=== PATIENT | male | born 1940 | race Caucasian/White ===

== ENCOUNTER 2017-06-29 08:00 | Outpatient (RCR) | payer MEDICARE, OTHER, SELFPAY ==
[2017-06-29 09:38] LABS: International Normalized Ratio 2.7; Prothrombin Time (Protime)PT. 28.6 SECONDS (11.7-14.9)
== END 2017-06-29 09:00 | disposition home or self-care (01) ==
LOC: LAB 08:00
PROVIDERS: Family Provider Family Medicine; PCP Family Medicine; Visit Provider Internal Medicine Cardiovascular Disease
DX: Z79.01 Long term (current) use of anticoagulants (principal)
CPT/HCPCS: 36415; 85610

== ENCOUNTER 2017-07-27 08:05 | Outpatient (RCR) | payer MEDICARE, OTHER, SELFPAY ==
[2017-07-27 08:52] LABS: Absolute Lymphocyte Count 1.29 X10^3/ul (0.83-4.51); Absolute Neutrophil Count 4.2 X10^3/uL (2.0-7.7); Basophil# 0.05 X10^3/uL; Basophil% 0.8 % (0-1); Eosinophil# 0.31 X10^3/uL; Eosinophils% 4.9 % (0-5); Hematocrit 42.4 % (40-54); Hemoglobin 14.5 g/dl (13.0-16.5); Lymphocyte # 1.29 X10^3/ul (4.0); Lymphocyte % 20.3 % (19-41); Mean Corp Hgb Conc 34.2 g/gl (32-36); Mean Corpuscular Hgb 27.7 pg (27.0-32.0); Mean Corpuscular Volume 81.1 fL (80-94); Mean Platelet Vol. 9.7 fl (6.2-12.0); Monocyte% 7.9 % (0-10); Neutrophil # 4.18 X10^3/uL (2.7-7.7); Neutrophil % 65.8 % (47-70); Platelet Count 217 K/mm3 (150-450); RBC Distribution Width CV 12.9 % (11.6-14.6); RBC Distribution Width SD 38.2 fl (35.1-43.9); Red Blood Count 5.23 M/mm3 (4.6-6.2); White Blood Count 6.4 K/mm3 (4.4-11.0)
[2017-07-27 08:55] LABS: POSITIVE COUNT NO; POSITIVE DIFFERENTIAL NO; POSITIVE MORPHOLOGY NO
[2017-07-27 09:01] LABS: International Normalized Ratio 2.3; Prothrombin Time (Protime)PT. 25.1 SECONDS (11.7-14.9)
[2017-07-27 09:07] LABS: AST(SGOT) 18 U/L (15-37); Alanine Aminotransfer ALT/SGPT 22 U/L (16-61); Albumin, Serum 3.4 g/dL (3.2-5.0); Alkaline Phosphatase 99 U/L (45-117); Anion Gap 10 (5-15); BUN 50 mg/dL (7-18); BUN/Creat Ratio 20.3 RATIO (10-20); Bilirubin, Direct 0.13 mg/dL (0.00-0.30); Calcium,Total 9.2 mg/dL (8.5-10.1); Chloride 104 mmol/L (98-107); Cholesterol 101 mg/dL (200); Creatinine, Serum 2.46 mg/dL (0.70-1.30); EST Glomerular Filtration Rate 27 mL/min (>60); Est Glom Filt Rate - Afr Amer 33 mL/min (>60); Globulin 4.2 g/dL (2.2-4.2); Glucose 119 mg/dL (74-106); High Density Lipoprotein 31 mg/dL; Potassium 4.2 mmol/L (3.5-5.1); Protein, Total 7.6 g/dL (6.4-8.2); Sodium Level 139 mmol/L (136-145); Triglycerides 161 mg/dL; Very Low Density Lipoprotein 32 mg/dL (5-40)
== END 2017-07-27 09:00 | disposition home or self-care (01) ==
LOC: LAB 08:05
PROVIDERS: Family Provider Family Medicine; PCP Family Medicine; Visit Provider Internal Medicine Cardiovascular Disease
DX: N18.3 Chronic kidney disease, stage 3 (moderate) (principal); I12.9 Hypertensive chronic kidney disease with stage 1 through stage 4 chronic kidney disease, or unspecified chronic kidney disease; I25.10 Atherosclerotic heart disease of native coronary artery without angina pectoris; I48.1 Persistent atrial fibrillation; E11.65 Type 2 diabetes mellitus with hyperglycemia; E78.5 Hyperlipidemia, unspecified; Z95.5 Presence of coronary angioplasty implant and graft; Z79.01 Long term (current) use of anticoagulants; Z79.899 Other long term (current) drug therapy
CPT/HCPCS: 36415; 80048; 80061; 80076; 85025; 85610

== ENCOUNTER 2017-11-09 08:12 | Outpatient (RCR) | payer MEDICARE, OTHER, SELFPAY ==
[2017-11-09 09:31] LABS: International Normalized Ratio 3.6; Prothrombin Time (Protime)PT. 36.2 SECONDS (11.7-14.9)
== END 2017-11-09 10:00 | disposition home or self-care (01) ==
LOC: LAB 08:12
PROVIDERS: Family Provider Family Medicine; PCP Family Medicine; Visit Provider Internal Medicine Cardiovascular Disease
DX: Z79.01 Long term (current) use of anticoagulants (principal)
CPT/HCPCS: 36415; 85610

== ENCOUNTER 2017-12-05 08:42 | Outpatient (RCR) | payer MEDICARE, OTHER, SELFPAY ==
[2017-12-05 10:28] LABS: International Normalized Ratio 2.4; Prothrombin Time (Protime)PT. 26.2 SECONDS (11.7-14.9)
== END 2017-12-05 10:00 | disposition home or self-care (01) ==
LOC: LAB 08:42
PROVIDERS: Family Provider Family Medicine; PCP Family Medicine; Visit Provider Internal Medicine Cardiovascular Disease
DX: Z79.01 Long term (current) use of anticoagulants (principal)
CPT/HCPCS: 36415; 85610

== ENCOUNTER 2018-01-31 08:35 | Outpatient (RCR) | payer MEDICARE, OTHER, SELFPAY ==
[2018-01-31 09:21] LABS: Hematocrit 40.4 % (40-54); Hemoglobin 13.5 g/dl (13.0-16.5); International Normalized Ratio 2.7; Mean Corp Hgb Conc 33.4 g/gl (32-36); Mean Corpuscular Hgb 27.6 pg (27.0-32.0); Mean Corpuscular Volume 82.6 fL (80-94); Mean Platelet Vol. 9.8 fl (6.2-12.0); Platelet Count 123 K/mm3 (150-450); RBC Distribution Width CV 13.4 % (11.6-14.6); RBC Distribution Width SD 40.6 fl (35.1-43.9); Red Blood Count 4.89 M/mm3 (4.6-6.2); White Blood Count 7.1 K/mm3 (4.4-11.0)
[2018-01-31 09:23] LABS: Scan Indicated on CBC? Y/N NO
[2018-01-31 09:41] LABS: AST(SGOT) 13 U/L (15-37); Alanine Aminotransfer ALT/SGPT 18 U/L (16-61); Albumin, Serum 3.5 g/dL (3.2-5.0); Alkaline Phosphatase 89 U/L (45-117); Anion Gap 10 (5-15); BUN 45 mg/dL (7-18); BUN/Creat Ratio 18.8 RATIO (10-20); Bilirubin, Direct 0.16 mg/dL (0.00-0.30); Calcium,Total 9.2 mg/dL (8.5-10.1); Chloride 108 mmol/L (98-107); Cholesterol 91 mg/dL (200); Creatinine, Serum 2.39 mg/dL (0.70-1.30); EST Glomerular Filtration Rate 28 mL/min (>60); Est Glom Filt Rate - Afr Amer 34 mL/min (>60); Glucose 118 mg/dL (74-106); High Density Lipoprotein 34 mg/dL; Potassium 4.1 mmol/L (3.5-5.1); Protein, Total 7.5 g/dL (6.4-8.2); Sodium Level 141 mmol/L (136-145); Triglycerides 159 mg/dL; Very Low Density Lipoprotein 32 mg/dL (5-40)
== END 2018-01-31 10:00 | disposition home or self-care (01) ==
LOC: LAB 08:35
PROVIDERS: Physician Assistant Medical; Family Provider Family Medicine; PCP Family Medicine; Referring Provider Internal Medicine Cardiovascular Disease; Visit Provider Internal Medicine Cardiovascular Disease
DX: N18.3 Chronic kidney disease, stage 3 (moderate) (principal); N17.9 Acute kidney failure, unspecified; I12.9 Hypertensive chronic kidney disease with stage 1 through stage 4 chronic kidney disease, or unspecified chronic kidney disease
CPT/HCPCS: 36415; 80048; 80061; 80076; 85027; 85610

== ENCOUNTER 2018-04-11 08:41 | Outpatient (RCR) | payer MEDICARE, OTHER, SELFPAY ==
[2018-04-11 09:28] LABS: International Normalized Ratio 3.2; Prothrombin Time (Protime)PT. 32.9 SECONDS (11.7-14.9)
--- OUTSIDE RECORDS SUMMARY | 2018-07-13 14:34 | XMS RPT_ITS ---
:1940 Author Organization OHIP Support Name Relationship Address Phone QUAN PAMELLA Unavailable [address] + [address] [place] [address] R Unavailable Unavailable Unavailable KOBILARCSIK, PAMELLA Unavailable [address] + [address] [place] [address] R Unavailable Unavailable Unavailable KOBILARCSIK, PAMELLA Unavailable [address] + [address] [place] [address] R Unavailable Unavailable Unavailable KOBILARCSIK, PAMELLA Unavailable [address] + [address] [place] [address] R Unavailable Unavailable Unavailable KOBILARCSIK, PAMELLA Unavailable [address] + [address] [place] [address] R Unavailable Unavailable Unavailable KOBILARCSIK, PAMELLA Unavailable [address] + [address] [place] [address] R Unavailable Unavailable Unavailable KOBILARCSIK, PAMELLA Unavailable [address] + [address] [place] [address] R Unavailable Unavailable Unavailable KOBILARCSIK, PAMELLA Unavailable [address] + [address] [place] [address] R Unavailable Unavailable Unavailable KOBILARCSIK, PAMELLA Unavailable [address] + [address] [place] [address] R Unavailable Unavailable Unavailable R Unavailable Unavailable Unavailable PEREZ, SHAMAR Unavailable [address] + [place] [address] KOBILARCSIK, PAMELLA Unavailable [address] [phone] [place] [address] R Unavailable Unavailable Unavailable PEREZ, SHAMAR Unavailable [address] + [place] [address] KOBILARCSIK, PAMELLA Unavailable [address] [facility] [phone] [place] [address] R Unavailable Unavailable Unavailable Care Team Providers Name Role Phone Jolliff, Masha Attending Unavailable Jolliff, Masha Referring Unavailable Jolliff, Masha Primary Care Unavailable Karyn, [place] Attending Unavailable Karyn, Russ Referring Unavailable Jolliff, Masha Primary Care Unavailable Jackelyn Moore Consulting Unavailable Asfoura, Jejessed Consulting Unavailable Karyn, [place] Attending Unavailable Jolliff, Masha Primary Care Unavailable Karyn, Russ Referring Unavailable Asfoura, Jehad Consulting Unavailable Karyn, [place] Attending Unavailable Karyn, [place] Referring Unavailable Jolliff, Masha Primary Care Unavailable Asfoura, Jehad Consulting Unavailable Jackelyn Moore Consulting Unavailable Karyn, Russ Attending Unavailable Jolliff, Masha Referring Unavailable Jolliff, Masha Primary Care Unavailable Remedios Coleman POLICE MAGISTRATE-C Attending Unavailable Jolliff, Masha Referring Unavailable Jolliff, Masha Primary Care Unavailable Karyn, Russ Attending Unavailable Karyn, [place] Referring Unavailable Jolliff, Masha Primary Care Unavailable Jackelyn Moore Consulting Unavailable Karyn, Russ Attending Unavailable Karyn, [place] Referring Unavailable Jolliff, Masha Primary Care Unavailable Jackelyn Moore Consulting Unavailable Karyn, [place] Attending Unavailable Karyn, [place] Referring Unavailable Jolliff, Masha Primary Care Unavailable Jackelyn Moore Consulting Unavailable Asfoura, Jehad Consulting Unavailable Jackelyn Moore Attending Unavailable Jolliff, Masha Referring Unavailable Karyn, [place] Attending Unavailable Karyn, Russ Referring Unavailable Jolliff, Masha Primary Care Unavailable Jackelyn Moore Consulting Unavailable Asfoura, Jehad Consulting Unavailable PROBLEMS PROBLEMS DATE TYPE CONDITION / CODE ATTENDING STATUS SOURCE Unknown 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, [place]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 [place] [facility] (current) use of Community anticoagulants / Hospital Z79.01(ICD-10) Repository Unknown I48.2 - Chronic atrial Karyn, Russ Active [place] [facility] fibrillation / Community I48.2(ICD-10) Hospital Repository Unknown I25.10 - Atherosclerotic Moore, Active [place] [facility] heart disease of [place] Jackelyn [facility] coronary artery without Hospital angina pectoris / Repository I25.10(ICD-10) Unknown E11.9 - Type 2 diabetes Oscar Active [place] [facility] mellitus without Jackelyn [facility] complications / Hospital E11.9(ICD-10) Repository Unknown E78.5 - Hyperlipidemia, Karyn, Russ Active [place] [facility] unspecified / Community E78.5(ICD-10) Hospital Repository Unknown Z79.899 - Other assisted Karyn, Russ Active [place] [facility] (current) drug therapy / Community Z79.899(ICD-10) Hospital Repository Unknown N18.3 - Chronic kidney Karyn, Russ Active [place] [facility] disease, stage 3 Community (moderate) / Hospital N18.3(ICD-10) Repository Unknown N18.5 - Chronic kidney Karyn, Russ Active [place] [facility] disease, stage 5 / Community N18.5(ICD-10) Hospital Repository Unknown E78.00 - Pure Karyn, Russ Active [place] [facility] hypercholesterolemia, Community unspecified / Hospital E78.00(ICD-10) Repository Unknown E78.0 - Pure Karyn, [place] Active [place] [facility] hypercholesterolemia / Community E78.0(ICD-10) Hospital Repository Unknown E11.65 - Type 2 diabetes Karyn, Russ Active [place] 8 mellitus with Community hyperglycemia / Hospital E11.65(ICD-10) Repository Unknown I10 - Essential (primary) Karyn, [place] Active [place] [facility] hypertension / Community I10(ICD-10) Hospital Repository Unknown I48.1 - Persistent atrial Karyn, [place] Active [place] [facility] fibrillation / Community I48.1(ICD-10) Hospital Repository Unknown Z95.5 - Presence of Karyn, [place] Active [place] [facility] coronary angioplasty Community implant and graft / Hospital Z95.5(ICD-10) Repository Unknown I12.9 - Hypertensive Karyn, Russ Active [place] [facility] chronic kidney disease Community with stage 1 through Hospital stage 4 chronic kidney Repository disease, or unspecified chronic kidney disease / I12.9(ICD-10) PROCEDURES PROCEDURES No Procedure Records FoundRESULTS RESULTS PROTHROMBIN TIME W/INR Collected: 05/17/2018 Status: F Source: [place] 8:03 AM [facility] [place] REPOSITORY Order Comment: Comments: STANDING ORDER Comments: STANDING ORDER TYPE CODE TESTS RESULT OUT OF RANGE REFERENCE UNITS LAB L300.4150 11.7-14.9 SECONDS High PROTIME 23.4 LAB L300.4200 Normal INR 2.1 Performed By: #### L300.3900 #### [facility] [address] [place], [address] T4 TOTAL, THYROXIN Collected: 04/21/2018 Status: F Source: [place] 10:41 AM [facility] [place] REPOSITORY TYPE CODE TESTS RESULT OUT OF RANGE REFERENCE UNITS LAB L501.9310 4.5-12.1 ug/dL T4 Normal THYROXIN 6.7 Performed By: #### L501.9310, L501.9520 #### [facility] [address] [place], [address] THYROID STIM HORMONE Collected: 04/21/2018 Status: F Source: [place] (TSH) 10:41 AM [facility] [place] REPOSITORY TYPE CODE TESTS RESULT OUT OF RANGE REFERENCE UNITS LAB L501.9520 0.358-3.74 uIU/mL Normal TSH 1.52 Performed By: #### L501.9310, L501.9520 #### [facility] [address] [place], [address] MICROALB:CREAT Collected: 04/21/2018 Status: F Source: [place] RATIO,RANDOM UR 10:41 AM [facility] [place] REPOSITORY TYPE CODE TESTS RESULT OUT OF RANGE REFERENCE UNITS LAB L501.1200 NO RANGE EST. mg/dL Normal UR CREAT 178.00 LAB L502.0500 NO RANGE EST. mg/L Normal 1690.0 MICROALBUMIN ,UR LAB L502.0600 <30 mg/g CRE mg/g CRE High 949.4 MALB:CREAT Performed By: #### L502.0250 #### [facility] [address] [place], [address] HEMOGLOBIN A1C Collected: 04/21/2018 Status: F Source: [place] 10:41 AM [facility] REPOSITORY TYPE CODE TESTS RESULT OUT OF RANGE REFERENCE UNITS LAB L501.9985 4.2-6.3 % High HGB A1C 8.1 Performed By: #### L501.9985 #### [facility] [address] [place], [address] PROTHROMBIN TIME W/INR Collected: 04/11/2018 Status: F Source: [place] 8:48 AM [facility] REPOSITORY TYPE CODE TESTS RESULT OUT OF RANGE REFERENCE UNITS LAB L300.4150 11.7-14.9 SECONDS High PROTIME 32.9 LAB L300.4200 Normal INR 3.2 Performed By: #### L300.3900 #### [facility] [address] [place], [address] CARDIOLOGY VISIT Observed: 02/07/2018 Status: F Source: [place] REPORT 11:30 AM [facility] [place] REPOSITORY [facility] [address] [place] [address] OFFICE VISIT Date of Service: 02/01/18 MR#: [id number] Acct: [id number] Name: HANS RICHEY Rep #: [id number] : 1940 Provider: Jackelyn Moore Age/Sex: 77/M Location: [facility] [place] Status: Signed HPI HPI Details: HANS RICHEY, is a 77 M who presents to the office today for cardiovascular follow-up. He has a history of coronary artery disease with stenting to his RCA (2002,2004 and PCI 2016), hypertension and hyperlipidemia. From a cardiac standpoint, patient is doing well. He does not have any chest discomfort/heaviness/tightness. His exercise tolerance is stable for his age. He does get SOB with bending over and doing activity, he does not think that this is any worse than previous. He denies any PND. He does not have any orthopnea. He does not have any symptoms of congestive heart failure. He does not have any palpitations that he is aware of. He does not have any lightheadedness or dizziness. He does not have any near-syncope or syncope. He does not have any lower extremity edema. He does not have any symptoms of claudication. 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 Accompanied by: none Is patient in pain?: No Allergies Penicillins Adverse Reaction (Severe, Verified 02/01/18 10:50) Swelling Medications Aspirin [Adult Low Dose Aspirin EC] 81 mg PO 07/17/15 [History Confirmed 02/01/18] Nitroglycerin [Nitrostat] 0.4 mg SUBLINGUAL Q5M PRN 07/17/15 [History Confirmed 02/01/18] levothyroxine 75 mcg capsule 75 mcg PO QDAY cap 07/29/17 [History Confirmed 02/01/18] sodium bicarbonate 650 mg tablet 650 mg PO .q day tab 07/29/17 [History Confirmed 02/01/18] amlodipine 10 mg tablet 10 mg PO QDAY #90 tab 08/02/17 [Rx Confirmed 02/01/18] atenolol 100 mg tablet 100 mg PO QDAY #90 tab 08/02/17 [Rx Confirmed 02/01/18] benazepril 20 mg tablet 20 mg PO QDAY #90 tab 08/02/17 [Rx Confirmed 02/01/18] clopidogrel 75 mg tablet 75 mg PO DAILY #90 tab 08/02/17 [Rx Confirmed 02/01/18] hydrochlorothiazide 25 mg tablet 25 mg PO DAILY #90 tab 08/02/17 [Rx Confirmed 02/01/18] isosorbide mononitrate ER 30 mg tablet,extended release 24 hr 30 mg PO DAILY #90 tab 08/02/17 [Rx Confirmed 02/01/18] lovastatin 40 mg tablet 40 mg PO DAILY #90 tab 08/02/17 [Rx Confirmed 02/01/18] spironolactone 25 mg tablet 25 mg PO .COMPLEX #36 tab 08/02/17 [Rx Confirmed 02/01/18] warfarin 5 mg tablet 5 mg PO .COMPLEX #180 tab 08/02/17 [Rx Confirmed 02/01/18] blood sugar diagnostic strips See Dose Instructions .ROUTE .MEDSUPPLY #20 ea 08/18/17 [History Confirmed 02/01/18] cholecalciferol (vitamin D3) 2,000 unit capsule 2,000 unit PO QDAY 08/23/17 [History Confirmed 02/01/18] insulin U- 100 regular human 100 unit/mL injection solution 46 unit SC .COMPLEX #30 ml 10/24/17 [Rx Confirmed 02/01/18] insulin syringe-needle U-100 1/2 mL 31 gauge x 15/64 See Dose Instructions .ROUTE .MEDSUPPLY #100 ea 10/24/17 [Rx Confirmed 02/01/18] PFS Medical History Sleep apnea (Chronic) Diabetes mellitus type II, controlled (Chronic) Hyperlipidemia (Chronic) Hypertension (Chronic) Atherosclerotic heart disease of [place] coronary artery without angina pectoris (Chronic) Chronic atrial fibrillation (Chronic) 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 (Chronic) Hypothyroidism (Acute) Surgical History History of total right knee replacement (Chronic) Stented coronary artery (Chronic) History of left heart catheterization (Chronic) Family History Father , age 79, of embolism CAD (coronary artery disease) Embolism Mother , age 74 Kidney disease renal failure Social History Smoking Status: Former smoker how long ago did patient quit smokin second hand exposure: No alcohol intake: never substance use type: does not use ROS Const Const: Negative for weakness, fatigue, fever(s) or headache(s) Eyes Eyes: Negative for blind spots, loss of peripheral vision or transient loss of vision ENT ENT: Negative for headache(s), dizziness, tinnitus or Nosebleed/epistaxis Cardio Chest Pain: No Palpitations: No Edema: None Muscle aches with walking: None Resp Respiratory: Negative for SOB with activity, SOB at rest, SOB orthopnea\SOB lying down or Cough GI GI: Negative nausea, vomiting, heartburn or vomiting blood/hematemesis : Negative for hematuria Musc Musc: Negative for muscle aches/ myalgia Neuro Neuro: Negative for weakness, headache(s), dizziness, near syncope, syncope, lightheadedness or orthostatic symptoms [place] Hematologic/Lymphatic: Negative for easy bleeding Endo Endo: Negative for fatigue Cardiology Exam Const Appearance: cooperative, no acute distress and well developed Nutritional Appearance: obese Orientation: alert, awake and oriented x3 Head Head: normocephalic and atraumatic Mouth: moist mucous membranes Eyes General: appearance normal, both eyes and all related structures Conjunctivae: conjunctivae normal Pupils: PERRL EOM: EOM intact bilaterally Neck Neck: normal visual inspection, no lymphadenopathy and no JVD Carotids: Negative bruit Neck Mass: Negative Neck mass Chest Chest inspection: normal inspection of the chest and symmetric chest movement Auscultation: Bilateral: Clear to Auscultation Cardio Palpation: normal PMI Rate: regular rate Rhythm: regular rhythm Heart sounds: S1 normal and S2 normal; negative rub, gallop or murmur GI GI: normal to inspection, soft, no hepatosplenomegaly, bowel sounds present and obese; negative tender Neuro General: alert, awake, oriented x3, CN's II-XI intact bilaterally and moves all extremities Extremities Pulses: Normal: Right Posterior Tibial Pulse, Left Posterior Tibial Pulse, Right Radial Pulse, Left Radial Pulse Lower Extremity Edema: None: Bilateral Psych Psychological: normal affect Supplemental Info Heart catheterization in 2016 demonstrated severe coronary artery disease. Mild to moderate left main arterial disease. 30% stenosis of the mid to distal LAD, 40% in-stent restenosis of the pre-existing stent in the mid RCA. Patient underwent balloon angioplasty of the 99% in-stent restenosis of the pre-existing proximal to mid right posterior atrioventricular artery, balloon angioplasty of the 90% stenosis of the distal RCA, balloon angioplasty of the 70% stenosis of the proximal RCA. Unable to pass any stents across the proximal tortuous RCA stenosis despite multiple attempts. Patient had correction of the distal RCA and posterior lateral branch and severe stenosis with right to left collaterals very good collateral quality was noted on the second diagonal to the third distal right posterior lateral Echocardiogram in 2016 demonstrated normal left ventricle, estimated ejection fraction is 55%, left atrium is mildly enlarged, mild tricuspid insufficiency. Assessment AND Plan 1. Atherosclerosis of [place] coronary artery of [place] heart without angina pectoris I25.10 PTCA and ADI to RCA04/03/2003; repeat PTCA and ADI to RCA 06/04/2004: [facility] with POBA- RCA (no stent) 06/03/15 Plan - [place]NE Lopez Stable, from a cardiac standpoint patient does not have any symptoms of angina. We recommend that they continue with current aggressive medical management and risk factor modification. Orders Orders: 2. Chronic atrial fibrillation I48.2 Plan - [place] Lopez Patient is not symptomatic. His heart rate is adequately controlled. He is anticoagulated with a therapeutic INR goal of 2-3 3. Essential hypertension I10 Plan - [place] Lopez Blood pressure is well controlled on current medications, we do not recommend any changes at this time. 4. Pure hypercholesterolemia E78.00 Plan - [place] Lopez Recent lipid profile demonstrates a total cholesterol of 91, HDL 34, LDL 25. Patient will continue with moderate intensity statin Plan Detail Other Orders Orders: Additional Comments - [place] Lopez The above patient was discussed with Dr. Boss, he agrees with plan of care. Thank you for allowing us to participate in patient's plan of care, if you have any questions please do not hesitate to call. This note was generated using a voice recognition system and there may be incorrect words, spelling or punctuation errors that were not noted when reviewing the office note prior to saving. 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 transplanted heart: [place] heart Chronic atrial fibrillation I48.2 Essential hypertension I10 Hypertension type: essential hypertension Pure hypercholesterolemia E78.00 Hyperlipidemia type: pure hypercholesterolemia Coding Level of Care Code Off vis,est,level 3 Diagnoses Atherosclerosis of [place] coronary artery of [place] heart without angina pectoris I25.10 [place] vs. transplanted heart: [place] heart Chronic atrial fibrillation I48.2 Essential hypertension I10 Hypertension type: essential hypertension Pure hypercholesterolemia E78.00 Hyperlipidemia type: pure hypercholesterolemia 02/07/18 1040 <Electronically signed by Jackelyn QUINN> Date Jackelyn QUINN 02/07/18 1130<Electronically signed by Russ Boss MD> Cosigner Signature: Date (if applicable) Russ Boss MD CC: Masha Treviño MD CBC-COMPLETE BLOOD CNT Collected: 01/31/2018 Status: F Source: [place] NO DIFF 8:41 AM [facility] [place] REPOSITORY Order Comment: BMP AND CBC FOR DR SCHWARZ LIVER,LIPID INR FOR DR BOSS TYPE CODE TESTS RESULT OUT OF RANGE REFERENCE UNITS LAB L100.1000 4.4-11.0 K/mm3 Normal WBC 7.1 LAB L100.1200 4.6-6.2 M/mm3 Normal RBC 4.89 LAB L100.1300 13.0-16.5 g/dl Normal HGB 13.5 LAB L100.1400 40-54 % Normal HCT 40.4 LAB L100.1500 80-94 fL Normal MCV 82.6 LAB L100.1600 27.0-32.0 pg Normal MCH 27.6 LAB L100.1700 32-36 g/gl Normal MCHC 33.4 LAB L100.1810 11.6-14.6 % Normal RDW CV 13.4 LAB L100.1820 35.1-43.9 fl Normal RDW SD 40.6 LAB L100.1900 150-450 K/mm3 Low PLT 123 LAB L100.2000 6.2-12.0 fl Normal MPV 9.8 Performed By: #### L100.0500 #### [facility] [address] [place], [address] PROTHROMBIN TIME W/INR Collected: 01/31/2018 Status: F Source: [place] 8:41 AM [facility] REPOSITORY Order Comment: BMP AND CBC FOR DR SCHWARZ LIVER,LIPID INR FOR KARYN TYPE CODE TESTS RESULT OUT OF RANGE REFERENCE UNITS LAB L300.4150 11.7-14.9 SECONDS High PROTIME 29.0 LAB L300.4200 Normal INR 2.7 Performed By: #### L300.3900 #### [facility] [address] [facility] [place], [address] BASIC METABOLIC Collected: 01/31/2018 Status: F Source: [place] PROFILE (BMP) 8:41 AM [facility] REPOSITORY Order Comment: BMP AND CBC FOR DR SCHWARZ LIVER,LIPID INR FOR DR KARYN TYPE CODE TESTS RESULT OUT OF RANGE REFERENCE UNITS LAB L501.0100 74-106 mg/dL High GLU 118 Result Comment: Fasting Glucose result from 100 to 125 mg/dL suggests IMPAIRED HOMEOSTASIS per A.D.A. criteria. Please note revised GLUCOSE reference range effective 2017. LAB L501.1000 7-18 mg/dL High BUN 45 LAB L501.1100 0.70-1.30 mg/dL High CREAT,SERUM 2.39 Result Comment: The validity of the calculated GFR AND GFRAA in patients over 70 years has not been determined. Clinical correlation is essential. LAB L501.1110 >60 mL/min Low EST GFR 28 Result Comment: Non- GFR Calc LAB L501.1115 >60 mL/min Low EST GFR - AA 34 Result Comment: GFR Calc LAB L501.1300 10-20 RATIO Normal BUN/CRE 18.8 LAB L501.2200 8.5-10.1 mg/dL CA Normal 9.2 LAB L501.5300 136-145 mmol/L NA Normal 141 LAB L501.5600 3.5-5.1 mmol/L K Normal 4.1 LAB L501.5900 98-107 mmol/L High CL 108 LAB L501.6100 21.0-32.0 mmol/L Normal CO2 23.0 LAB L501.6200 5-15 Normal GAP 10 Performed By: #### L500.2500, L500.3400, L500.4100 #### [facility] [address] [place], [address] LIVER PROFILE Collected: 01/31/2018 Status: F Source: [place] 8:41 AM [facility] REPOSITORY Order Comment: BMP AND CBC FOR DR SCHWARZ LIVER,LIPID INR FOR DR BOSS TYPE CODE TESTS RESULT OUT OF RANGE REFERENCE UNITS LAB L501.1500 6.4-8.2 g/dL Normal T PROT 7.5 LAB L501.1800 3.2-5.0 g/dL Normal ALB 3.5 LAB L501.1950 2.2-4.2 g/dL Normal GLOB 4.0 LAB L501.4100 15-37 U/L Low AST 13 LAB L501.4305 45-117 U/L Normal ALK P 89 LAB L501.4405 16-61 U/L Normal ALT 18 LAB L501.4600 0.20-1.00 mg/dL Normal T BILI 0.50 LAB L501.4700 0.00-0.30 mg/dL Normal D BILI 0.16 Performed By: #### L500.2500, L500.3400, L500.4100 #### [facility] [address] [place], [place], [address] LIPID PROFILE Collected: 01/31/2018 Status: F Source: [place] 8:41 AM [facility]POS[facility] Order Comment: BMP AND CBC FOR DR SCHWARZ LIVER,LIPID INR FOR DR BOSS TYPE CODE TESTS RESULT OUT OF RANGE REFERENCE UNITS LAB L501.4900 200 mg/dL Normal CHOL 91 Result Comment: <200 mg/dL Desirable 200-240 mg/dL Borderline >240 mg/dL High Risk LAB L501.5000 mg/dL Normal TRIG 159 Result Comment: The drugs N-Acetylcysteine and Metamizole may falsely depress this assay. Serum Triglycerides Reference Interval Normal <150 mg/dL Borderline high 150 - 199 mg/dL High 200 - 499 mg/dL Very High > or = 500 mg/dL LAB L501.6400 mg/dL Low HDL 34 Result Comment: The drugs N-Acetylcysteine and Metamizole may falsely depress this assay. Reference Range HDL <40 mg/dL Low HDL Cholesterol HDL >or= 60 mg/dL High HDL Cholesterol LAB L501.6500 0-130 mg/dL Normal LDL 25 LAB L501.6600 5-40 mg/dL Normal VLDL 32 Performed By: #### L500.2500, L500.3400, L500.4100 #### [facility] [address] [place], [place], [address] PROTHROMBIN TIME W/INR Collected: 12/05/2017 Status: F Source: [place] 8:49 AM [facility] TYPE CODE TESTS RESULT OUT OF RANGE REFERENCE UNITS LAB L300.4150 11.7-14.9 SECONDS High PROTIME 26.2 LAB L300.4200 Normal INR 2.4 Performed By: #### L300.3900 #### [facility] [address] [place], [place], [address] PROTHROMBIN TIME W/INR Collected: 11/09/2017 Status: F Source: [place] 8:17 AM [facility] REPOSITORY Order Comment: CRITICAL VALUE VERIFIED. CALLED TO DUSTIN 11/09/17 0946 Val Neal Geovany. RESULTS READ BACK BY DUSTIN . TYPE CODE TESTS RESULT OUT OF REFERENCE UNITS RANGE LAB L300.4150 11.7-14.9 SECONDS High PROTIME 36.2 LAB L300.4200 High alert INR 3.6 Performed By: #### L300.3900 #### [facility] [address] [place], [place], [address] ENDOCRINOLOGY VISIT Observed: 08/25/2017 Status: F Source: [place] REPORT 10:29 AM [facility] REPOSITORY [facility] [address] [place], [place] [address] OFFICE VISIT Date of Service: 08/23/17 MR#: [id number] Acct: [id number] Name: HANS RICHEY Rep #: [id number] : 1940 Provider: Remedios Coleman NP Age/Sex: 77/M Location: [facility] [place] Status: Signed HPI History of present illness Hans Richey is a 77 year old male who presents for follow up of diabetes type 2. Diagnosed in 2001. Continues on MDI. Pt denies difficulty with injections or self monitoring of BG. Denies any signs of infection or irritation at site of injections. Reports taking insulin as directed At time of visit: -Pt denies symptoms of hypertensive emergency (CP,SOB,MOREIRA, or blurred vision) and hypotension(dizziness or lightheadedness) -Pt denies symptoms of hypoglycemia ( sweaty, confusion, anxiety, tremor, hunger, palpitations) and hyperglycemia ( polydipsia, polyuria) -Pt denies potential medication adverse effect. Hypoglycemia Aware of hypoglycemia: yes Able to self treat low BG: Yes Frequent low Blood sugar: No Has supply of glucagon: No Diet 3 meals Eats healthy No carb counting Exercise Plans to join [employer] in the summer SMBG 2-4 times daily 100-160 Const Appearance: cooperative, healthy appearing, well developed, well groomed and no acute distress Nutritional Appearance: well nourished and average body habitus Orientation: alert, awake and oriented x3 Head Head: normal to inspection, normocephalic and atraumatic Ears: hearing grossly normal bilaterally and external ears normal Nose: external nose normal, nasal mucous membranes and turbinates normal, nares normal, septum normal, no nasal discharge Face and Sinus: face symmetric Mouth: oral mucosae normal, tongue normal, oropharynx normal and moist mucous membranes Teeth and gingiva: dentition normal Throat: posterior oropharynx normal, tonsils normal and uvula midline Eyes General: appearance normal, both eyes and all related structures Eyelids: eyelids normal Conjunctivae: conjunctivae normal Pupils: PERRL, normal by confrontation and accommodation normal EOM: EOM intact bilaterally Neck Neck: normal visual inspection, trachea midline and no JVD JVD: +5 Carotids: normal carotid upstroke and bounding pulses Chest Chest inspection: normal inspection of the chest, symmetric chest movement and normal respiratory effort Auscultation: Bilateral: Clear to Auscultation Cardio Palpation: normal PMI Rhythm: irregular rhythm Heart sounds: S1 normal and S2 normal GI GI: normal to inspection, soft, no hepatosplenomegaly and bowel sounds present Neuro General: alert, awake, oriented x3, no focal sensory deficit, gait normal and moves all extremities Skin Skin: no rashes or lesions noted Extremities Pulses: Normal: Right Femoral Pulse, Left Femoral Pulse, Right Dorsalis Pedis Pulse, Left Dorsalis Pedis Pulse, Right Posterior Tibial Pulse, Left Posterior Tibial Pulse, Right Radial Pulse, Left Radial Pulse Lower Extremity Edema: None: Bilateral Musculoskel Musculoskeletal: No joint tenderness Psych Psychological: normal affect Weight and fatigue symptoms: Denies snoring Cardiopulmonary symptoms: Denies chest pain at rest, dyspnea on exertion, lightheadedness or myalgias GI symptoms: Denies constipation, diarrhea, nausea/dyspepsia or vomiting Skin and extremity symptoms: Denies erectile dysfunction Other symptoms: Denies blurry vision or change in vision Intake Vital Signs08/23/17 Height 5 ft 8 in 08/23/17 Weight: 291 lb 2 oz 08/23/17 Body Mass Index (BMI) 44.2 08/23/17 Blood Pressure 119/70 08/23/17 Blood Pressure Location Lt popliteal 08/23/17 Blood Pressure Position Sitting Intake Visit Reasons: 3 M FU Chief Complaint: follow up visit Clean Room Operator Required: No Accompanied by: Self Is patient in pain?: No Allergies Penicillins Adverse Reaction (Severe, Verified 08/23/17 09:52) Swelling Medications Aspirin [Adult Low Dose Aspirin EC] 81 mg PO 07/17/15 [History Confirmed 08/23/17] Nitroglycerin [Nitrostat] 0.4 mg SUBLINGUAL Q5M PRN 07/17/15 [History Confirmed 08/23/17] insulin U-100 regular human 100 unit/mL injection solution 46 unit SC .COMPLEX ml 07/29/17 [History Confirmed 08/23/17] levothyroxine 75 mcg capsule 75 mcg PO QDAY cap 07/29/17 [History Confirmed 08/23/17] sodium bicarbonate 650 mg tablet 650 mg PO .q day tab 07/29/17 [History Confirmed 08/23/17] amlodipine 10 mg tablet 10 mg PO QDAY #90 tab 08/02/17 [Rx Confirmed 08/23/17] atenolol 100 mg tablet 100 mg PO QDAY #90 tab 08/02/17 [Rx Confirmed 08/23/17] benazepril 20 mg tablet 20 mg PO QDAY #90 tab 08/02/17 [Rx Confirmed 08/23/17] clopidogrel 75 mg tablet 75 mg PO DAILY #90 tab 08/02/17 [Rx Confirmed 08/23/17] hydrochlorothiazide 25 mg tablet 25 mg PO DAILY #90 tab 08/02/17 [Rx Confirmed 08/23/17] isosorbide mononitrate ER 30 mg tablet,extended release 24 hr 30 mg PO DAILY #90 tab 08/02/17 [Rx Confirmed 08/23/17] lovastatin 40 mg tablet 40 mg PO DAILY #90 tab 08/02/17 [Rx Confirmed 08/23/17] spironolactone 25 mg tablet 25 mg PO .COMPLEX #36 tab 08/02/17 [Rx Confirmed 08/23/17] warfarin 5 mg tablet 5 mg PO .COMPLEX #180 tab 08/02/17 [Rx Confirmed 08/23/17] blood sugar diagnostic strips See Dose Instructions .ROUTE .MEDSUPPLY #20 ea 08/18/17 [History Confirmed 08/23/17] insulin syringe-needle U-100 1/2 mL 31 gauge x 15/64 See Dose Instructions .ROUTE .MEDSUPPLY #90 ea 08/18/17 [History Confirmed 08/23/17] cholecalciferol (vitamin D3) 2,000 unit capsule 2,000 unit PO QDAY 08/23/17 [History Confirmed 08/23/17] Nurse's Note: blood sugars : low : 121 high : 190 [facility] Medical History Sleep apnea (Chronic) Diabetes mellitus type II, controlled (Chronic) Hyperlipidemia (Chronic) Hypertension (Chronic) Stented coronary artery (Chronic) Atherosclerotic heart disease of [place] coronary artery without angina pectoris (Chronic) Chronic atrial fibrillation (Chronic) residential (current) use of anticoagulants (Chronic) Hypothyroidism (Acute) Surgical History History of total right knee replacement (Chronic) History of left heart catheterization (Chronic) Family History Father , age 79, of embolism CAD (coronary artery disease) Embolism Mother , age 74 Kidney disease renal failure Social History Smoking Status: Never smoker how long ago did patient quit smokin second hand exposure: No alcohol intake: never substance use type: does not use ROS Const Constitutional: No anorexia, body ache, chills, fatigue, fever(s), frequent falls, decreased energy, malaise, night sweats, weakness, weight change, sleep problems, abnormal sleep pattern, change in appetite, other, headache(s), snoring or excessive sweating Eyes Eyes: No blurry vision, change in vision, double vision, discharge, dry eyes, bulging eyes, floaters, visual disturbances, eye pain, light sensitivity, spots in vision, tunnel vision or other ENT ENT: Positive for nasal congestion and nasal discharge; no abnormal hearing, ear pain, ear discharge, ear pressure, hearing loss, tinnitus, dizziness/vertigo, balance problems, nosebleed/epistaxis, nasal obstruction, nose pain, sinus pressure, sinus pain, post nasal drip, headache(s), facial pain, dental pain, dry mouth, bad breath, hoarseness, lip swelling, mouth lesions, mouth pain, sore throat, tongue swelling, throat swelling, other, difficulty swallowing or neck pain Resp Respiratory: No cough, change in phlegm color, chest congestion, excessive phlegm production, hemoptysis, pain on inspiration, shortness of breath, pain with cough, snoring, stridor, wheezing or other Cardio Cardiology: Positive for generalized swelling; no chest pain at rest, chest pain with exertion, leg pain with exertion, excessive sweating, shortness of breath, dyspnea on exertion, irregular heart rhythm, lightheadedness, orthopnea, radiating jaw, neck or arm pain, fast heart rate, slow heart rate, palpitations or other Gastro GI: No abdominal pain, belching, bloating, change in bowel habits, change in stool character, coffee ground emesis, constipation, cramping, diarrhea, heartburn, difficulty swallowing, feeling full early, excessive flatus, incontinent of stools, Vomiting blood/hematemesis, blood in stool, loose stools, Black,tarry stools, nausea/dyspepsia, pain with swallowing, vomiting or other Genitourinary Male: No difficulty urinating, burning urination, painful urination, urinary incontinence, urinary frequency, urinary urgency, urinary hesitancy, urinary retention, blood in urine, Frequent nighttime urination/ nocturia, post void dribbling, suprapubic fullness, side pain, sexual problems, genital lesions, genital itching, erectile dysfunction, penile discharge, difficulty with ejaculations, blood in semen, scrotal swelling, testicle lump, testicle pain or other Musc Musculoskeletal: No abnormal walking, joint pain, back pain, deformity, joint swelling, limited range of motion, loss of height, muscle cramps, muscle weakness, decreased muscle mass, body aches, neck pain, numbness, radiating pain into limb, stiffness, tingling or other Skin Skin: No acne, hair loss, change in hair, nail changes, boil, change in skin color, dry skin, redness, excessive hair growth, yellowing of the skin, lesions, itching, rash, skin pain, skin ulcer, sores, skin swelling, wounds or other Breast Breast: No other Neuro Neurology: No frequent falls, weakness, visual disturbances, abnormal hearing, headache(s), abnormal walking, numbness or tingling Psych Psychiatric: No abnormal sleep pattern, No change in appetite Endo Endocrine: No fatigue, other or excessive sweating Aller/Imm Allergy/Immunologic: No lip swelling, tongue swelling, throat swelling, wheezing or itchy eyes Assessment AND Plan Problems 1. Essential hypertension I10 2. Controlled type 2 diabetes mellitus without complication, with long-term current use of insulin E11.9; Z79.4 3. Sleep apnea, unspecified type G47.30 Plan Detail Additional Comments 1. Please schedule follow up in 3 months. 2. Lab work one week before appointment. 3. Discussed importance of regular exercise and recommend starting or continuing a regular exercise program for good health. 4. The patient was encouraged to lose weight for good health 5. The importance of monitoring blood sugar regularly was reviewed. 6. The importance of monitoring the HBA1c level regularly was reviewed. 7. The importance of prper foot care and regularly checking feet to prevent sores and loss of limbs was reviewed. 8. The importance of keeping BP at or below 130/80 to prevent stroke, heart attacks, kidney failure, blindness was reviewed. Spent approximately 30 minutes with patient with over 50% of time spent in discussion and counseling regarding medication adjustment, symptoms and treatment of hypoglycemia, diet adherence, and checking BG before driving. Control portions Food selections should be healthy Choose more low carb vegetables Avoid snacks and desserts. Drink water Exercise daily Eat more fresh foods, not canned or processed Eat more slowly Coding Level of Care Code Off vis,est,level 4 Diagnoses Essential hypertension I10 Hypertension type: essential hypertension Controlled type 2 diabetes mellitus without complication, with long-term current use of insulin E11.9; Z79.4 Diabetes mellitus assisted insulin use: with assisted use Diabetes mellitus complication status: without complication Sleep apnea, unspecified type G47.30 Sleep apnea type: unspecified type Time Spent (min) 30 08/25/17 1029 <Electronically signed by Remedios EPPERSON> Date Remedios EPPERSON Cosigner Signature: Date (if applicable) CC: CARDIOLOGY VISIT Observed: 08/02/2017 Status: F Source: [facility] REPORT 10:17 AM [facility] RE[facility] [address] [place], [place] [address] [place] [address] OFFICE VISIT Date of Service: 08/02/17 MR#: [id number] Acct: [id number] Name: HANS RICHEY Rep #: [id number] : 1940 Provider: Russ Boss MD Age/Sex: 77/M Location: [facility] [place] Status: Signed [facility] Chief Complaint: follow up visit Details: HANS RICHEY, is a 77 M who presents to the office today for a follow-up visit. Is a gentleman with a history of coronary artery disease chronic persistent atrial fibrillation hypertension hyperlipidemia. He has been doing well he tells me that he has developed some gout and then a few days ago he had an episode which appeared to be in the left epigastrium. It lasted a few hours and then went away. He has not had any chest pain or shortness breath or paroxysmal nocturnal dyspnea no pedal edema no dizziness no diaphoresis no near syncope or syncope. As remember he cannot feel his atrial fibrillation. His physical exam today demonstrates clear lung jamison irregular irregular heart rate and no pedal edema. Intake Vital Signs08/02/17 Height 5 ft 8 in 08/02/17 Weight: 293 lb 08/02/17 Body Mass Index (BMI) 44.5 08/02/17 Blood Pressure 110/60 Intake Visit Reasons: 6 M FU Is patient in pain?: No Allergies Penicillins Adverse Reaction (Severe, Verified 08/02/17 09:51) Swelling Medications Aspirin [Adult Low Dose Aspirin EC] 81 mg PO 07/17/15 [History Confirmed 08/02/17] Nitroglycerin [Nitrostat] 0.4 mg SUBLINGUAL Q5M PRN 07/17/15 [History Confirmed 08/02/17] insulin U-100 regular human 100 unit/mL injection solution 46 unit SC .COMPLEX ml 07/29/17 [History Confirmed 08/02/17] levothyroxine 75 mcg capsule 75 mcg PO QDAY cap 07/29/17 [History Confirmed 08/02/17] sodium bicarbonate 650 mg tablet 650 mg PO .q day tab 07/29/17 [History Confirmed 08/02/17] amlodipine 10 mg tablet 10 mg PO QDAY #90 tab 08/02/17 [Rx Confirmed 08/02/17] atenolol 100 mg tablet 100 mg PO QDAY #90 tab 08/02/17 [Rx Confirmed 08/02/17] benazepril 20 mg tablet 20 mg PO QDAY #90 tab 08/02/17 [Rx Confirmed 08/02/17] cholecalciferol (vitamin D3) 5,000 unit capsule 5,000 unit PO .q day cap 08/02/17 [History Confirmed 08/02/17] clopidogrel 75 mg tablet 75 mg PO DAILY #90 tab 08/02/17 [Rx Confirmed 08/02/17] hydrochlorothiazide 25 mg tablet 25 mg PO DAILY #90 tab 08/02/17 [Rx Confirmed 08/02/17] isosorbide mononitrate ER 30 mg tablet,extended release 24 hr 30 mg PO DAILY #90 tab 08/02/17 [Rx Confirmed 08/02/17] lovastatin 40 mg tablet 40 mg PO DAILY #90 tab 08/02/17 [Rx Confirmed 08/02/17] spironolactone 25 mg tablet 25 mg PO .COMPLEX #36 tab 08/02/17 [Rx Confirmed 08/02/17] warfarin 5 mg tablet 5 mg PO .COMPLEX #180 tab 08/02/17 [Rx Confirmed 08/02/17] Ejection fraction %: 55 to 59 PFSH Medical History Sleep apnea (Chronic) Diabetes mellitus type II, controlled (Chronic) Hyperlipidemia (Chronic) Hypertension (Chronic) Stented coronary artery (Chronic) Atherosclerotic heart disease of [place] coronary artery without angina pectoris (Chronic) Chronic atrial fibrillation (Chronic) residential (current) use of anticoagulants (Chronic) Surgical History History of total right knee replacement (Chronic) History of left heart catheterization (Chronic) Family History Father , age 79, of embolism CAD (coronary artery disease) Embolism Mother , age 74 Kidney disease renal failure Social History Smoking Status: Never smoker ROS Const Const: Negative for fatigue, weakness, body ache, fever(s), headache(s), chills, frequent falls, night sweats, daytime sleepiness, difficulty sleeping, excessive sweating, weight gain, weight loss, increased appetite, poor appetite, anorexia or other Eyes Eyes: Negative for blind spots, loss of peripheral vision, transient loss of vision, blurry vision, change in vision, double vision, floaters, tunnel vision or other ENT ENT: Negative for headache(s), dizziness, hearing loss, tinnitus, Nosebleed/epistaxis, balance problems, post nasal drip, lip swelling, tongue swelling, bleeding gums, hoarseness, neck pain, dry mouth or other Cardio Chest Pain: Yes (yesterday a pain below left pectoral region on ribs, lasted 10 minutes. ) Frequency: other (Isolated) Character: other (ache) Onset: at rest Edema: Bilateral (mild) Resp Respiratory: Negative for SOB with activity, SOB at rest, SOB orthopnea\SOB lying down, Coughing up blood/hemoptysis, chest congestion, pain on inspiration, snoring, stridor, wheezing, crackles, paroxysmal nocturnal dyspnea or other GI GI: Negative nausea, vomiting, heartburn, constipation, belching, bloating, cramping, vomiting blood/hematemesis, bright, red blood in stools, black,tarry stools, loose stools, Difficulty Swallowing or other : Negative for hematuria, frequent nighttime urination/ nocturia, erectile dysfunction or abnormal vaginal bleeding Musc Musc: Positive for joint pain (gout, arthritis); negative for balance problems, muscle aches/ myalgia or muscle weakness Skin Skin: Negative redness, non-healing lesions, rash, unusual bruising, skin ulcer, wounds, jaundice or other Neuro Neuro: Negative for weakness, headache(s), frequent falls, blurry vision, double vision, dizziness, lightheadedness, near syncope, syncope, orthostatic symptoms, confusion, memory loss, restless legs, vertigo, seizures, lack of coordination or other [place] Hematologic/Lymphatic: Negative for easy bleeding, easy bruising, enlarged lymph nodes or other Endo Endo: Negative for fatigue, excessive sweating, cold intolerance, heat intolerance, flushing, increased thirst/drinking, increased hunger, hair loss, hair growth or other Psych Psych: Negative for anxiety, depression, thoughts of harming anyone, thoughts of harming yourself, visual hallucinations, panic attacks or audible hallucinations Allergy Allergy/Immunology: Negative for lip swelling, Negative for tongue swelling, Negative for rash, Negative for throat swelling, Negative for hives Cardiology Exam Const Appearance: cooperative, healthy appearing, well developed, well groomed and no acute distress Nutritional Appearance: well nourished and average body habitus Orientation: alert, awake and oriented x3 Head Head: normal to inspection, normocephalic and atraumatic Ears: hearing grossly normal bilaterally and external ears normal Nose: external nose normal, nasal mucous membranes and turbinates normal, nares normal, septum normal, no nasal discharge Face and Sinus: face symmetric Mouth: oral mucosae normal, tongue normal, oropharynx normal and moist mucous membranes Teeth and gingiva: dentition normal Throat: posterior oropharynx normal, tonsils normal and uvula midline Eyes General: appearance normal, both eyes and all related structures Eyelids: eyelids normal Conjunctivae: conjunctivae normal Pupils: PERRL, normal by confrontation and accommodation normal EOM: EOM intact bilaterally Neck Neck: normal visual inspection, trachea midline and no JVD JVD: +5 Carotids: normal carotid upstroke and bounding pulses Chest Chest inspection: normal inspection of the chest, symmetric chest movement and normal respiratory effort Auscultation: Bilateral: Clear to Auscultation Cardio Palpation: normal PMI Rhythm: irregular rhythm Heart sounds: S1 normal and S2 normal GI GI: normal to inspection, soft, no hepatosplenomegaly and bowel sounds present Neuro General: alert, awake, oriented x3, no focal sensory deficit, gait normal and moves all extremities Skin Skin: no rashes or lesions noted Extremities Pulses: Normal: Right Femoral Pulse, Left Femoral Pulse, Right Dorsalis Pedis Pulse, Left Dorsalis Pedis Pulse, Right Posterior Tibial Pulse, Left Posterior Tibial Pulse, Right Radial Pulse, Left Radial Pulse Lower Extremity Edema: None: Bilateral Musculoskel Musculoskeletal: No joint tenderness Psych Psychological: normal affect Assessment AND Plan 1. Atherosclerosis of [place] coronary artery of [place] heart without angina pectoris I25.10 PTCA and ADI to RCA04/03/2003; repeat PTCA and ADI to RCA 06/04/2004: [facility] with PCI only to RCA (no stent) 06/03/15 Plan The chest discomfort he experienced is most likely noncardiac in etiology. It appears to be related to abdominal gas. You do remember that he does have a history of coronary artery disease with his last angioplasty being performed almost 2 years ago. At that time he was noted to have had successful angioplasty to the distal right coronary artery and 70% stenosis in the proximal right coronary artery. He does have distal disease left which is being treated medically. 2. Essential hypertension I10 Plan His blood pressure is under good control on the current medical therapy and no major changes will be made. He remain on the atenolol benazepril as well as hydrochlorothiazide together with isosorbide. 3. Chronic atrial fibrillation I48.2 Plan He does have chronic persistent atrial fibrillation and remains on Coumadin and is rate controlled with the atenolol. No other changes will be made at this time. 4. Pure hypercholesterolemia E78.00; E78.0 Plan He does have a history of hyperlipidemia with his recent lipid profile demonstrated total cholesterol 101 and LDL 38 and an HDL of 31. His triglycerides 161. The above numbers are excellent and I would not suggest that we make any changes. Tells me that he is having some problems with gout and is considering going on allopurinol. I do not have any recommendations as to why he cannot go on this. Thank you for allowing me to participate in the care of your patient. Please don't hesitate to call if any issues arise Plan Detail Other Medications New: insulin U- (Humulin R Regular U-) 46 unit SC q am dand 36 units sq q evenin g Changed: To: warfarin (Coumadin) 5 mg PO 1.5 tablets (7.5 mg Sun, Tue, ) and Russ Boss MD 1 tablet daily rest of week Refilled: Discontinued: Follow Up 6 Months (mmm) Coding Level of Care Code Off vis,est,level 3 Diagnoses Atherosclerosis of [place] coronary artery of [place] heart without angina pectoris I25.10 [place] vs. transplanted heart: [place] heart Essential hypertension I10 Hypertension type: essential hypertension Chronic atrial fibrillation I48.2 Pure hypercholesterolemia E78.00; E78.0 Hyperlipidemia type: pure hypercholesterolemia Coding Level of Care Code Off vis,est,level 3 Diagnoses Atherosclerosis of [place] coronary artery of [place] heart without angina pectoris I25.10 [place] vs. transplanted heart: [place] heart Essential hypertension I10 Hypertension type: essential hypertension Chronic atrial fibrillation I48.2 Pure hypercholesterolemia E78.00; E78.0 Hyperlipidemia type: pure hypercholesterolemia 08/02/17 1017 <Electronically signed by Russ Boss MD> Date Russ Boss MD Cosigner Signature: Date (if applicable) CC: Masha Treviño MD CBC W/DIFF, AUTOMATED Collected: 07/27/2017 Status: F Source: [facility] 8:24 AM [facility] Order Comment: PLEASE FAX DR[facility] MOLLY SCHWARZ [facility] [place], TO [phone] LIVER LIPID PTINR GOES TO [facility] [phone] TYPE CODE TESTS RESULT OUT OF RANGE REFERENCE UNITS LAB L100.1000 4.4-11.0 K/mm3 Normal WBC 6.4 LAB L100.1200 4.6-6.2 M/mm3 Normal RBC 5.23 LAB L100.1300 13.0-16.5 g/dl Normal HGB 14.5 LAB L100.1400 40-54 % Normal HCT 42.4 LAB L100.1500 80-94 fL Normal MCV 81.1 LAB L100.1600 27.0-32.0 pg Normal MCH 27.7 LAB L100.1700 32-36 g/gl Normal MCHC 34.2 LAB L100.1810 11.6-14.6 % Normal RDW CV 12.9 LAB L100.1820 35.1-43.9 fl Normal RDW SD 38.2 LAB L100.1900 150-450 K/mm3 Normal PLT 217 LAB L100.2000 6.2-12.0 fl Normal MPV 9.7 LAB L100.2100 47-70 % Normal NEUT% 65.8 LAB L100.2200 19-41 % Normal LY% 20.3 LAB L100.2300 0-10 % Normal MONO% 7.9 LAB L100.2400 0-5 % Normal EO% 4.9 LAB L100.2500 0-1 % Normal BASO% 0.8 LAB L100.2550 0.0-0.9 % Normal IM GRAN % 0.300 Result Comment: IG% - Immature Granulocytes (promyelocytes, myelocytes and metamyelocytes) > 1% indicates that a LEFT SHIFT is Present. LAB L100.2620 2.0-7.7 X10 3/uL Normal Absolute Neut 4.2 LAB L100.2720 0.83-4.51 X10 3/ul Normal Absolute Lymph 1.29 Performed By: #### L100.0100 #### [facility] [address] [place] [place], [address] PROTHROMBIN TIME W/INR Collected: 07/27/2017 Status: F Source: [facility] 8:24 AM [facility] Order Comment: PLEASE FAX DR. MOLLY SCHWARZ [facility], [place], TO [phone] LIVER LIPID PTINR GOES TO [facility] [phone] TYPE CODE TESTS RESULT OUT OF RANGE REFERENCE UNITS LAB L300.4150 11.7-14.9 SECONDS High PROTIME 25.1 LAB L300.4200 Normal INR 2.3 Performed By: #### L300.3900 #### [facility] [address] [place], [address] BASIC METABOLIC Collected: 07/27/2017 Status: F Source: [facility] PROFILE (BMP) 8:21 AM [facility] RE[facility] Order Comment: Order Date: 01/26/17 Order Info: [id number] - *Hepatic Function Panel PLEASE FAX DR. MOLLY SCHWARZ BMP, [place], [place] [phone] LIVER LIPID PTINR GOES TO [facility] [id number] Order Info: 60910-7 - *Lipid Profile CC PCP Comments: 12 hours fasting, may have water. TYPE CODE TESTS RESULT OUT OF RANGE REFERENCE UNITS LAB L501.0100 74-106 mg/dL High GLU 119 Result Comment: Fasting Glucose result from 100 to 125 mg/dL suggests IMPAIRED HOMEOSTASIS per A.D.A. criteria. Please note revised GLUCOSE reference range effective 2017. LAB L501.1000 7-18 mg/dL High BUN 50 LAB L501.1100 0.70-1.30 mg/dL High CREAT,SERUM 2.46 Result Comment: The validity of the calculated GFR AND GFRAA in patients over 70 years has not been determined. Clinical correlation is essential. LAB L501.1110 >60 mL/min Low EST GFR 27 Result Comment: Non- GFR Calc LAB L501.1115 >60 mL/min Low EST GFR - AA 33 Result Comment: GFR Calc LAB L501.1300 10-20 RATIO High BUN/CRE 20.3 LAB L501.2200 8.5-10.1 mg/dL CA Normal 9.2 LAB L501.5300 136-145 mmol/L NA Normal 139 LAB L501.5600 3.5-5.1 mmol/L K Normal 4.2 LAB L501.5900 98-107 mmol/L CL Normal 104 LAB L501.6100 21.0-32.0 mmol/L Normal CO2 25.0 LAB L501.6200 5-15 Normal GAP 10 Performed By: #### L500.2500 #### [facility] [address] [place], [place], [address] LIVER PROFILE Collected: 07/27/2017 Status: F Source: [place] 8:21 AM [facility] REPOSITORY Order Comment: Order Date: 01/26/17 Order Info: 0788-1 - *Hepatic Function Panel PLEASE FAX [facility] MOLLY [facility] [place], [place] [phone] LIVER LIPID PTINR GOES TO [facility] [phone] Order Info: 97254-1 - *Lipid Profile CC PCP Comments: 12 hours fasting, may have water. TYPE CODE TESTS RESULT OUT OF RANGE REFERENCE UNITS LAB L501.1500 6.4-8.2 g/dL Normal T PROT 7.6 LAB L501.1800 3.2-5.0 g/dL Normal ALB 3.4 LAB L501.1950 2.2-4.2 g/dL Normal GLOB 4.2 LAB L501.4100 15-37 U/L Normal AST 18 LAB L501.4305 45-117 U/L Normal ALK P 99 LAB L501.4405 16-61 U/L Normal ALT 22 Result Comment: Please note revised ALT reference range effective 2017. LAB L501.4600 0.20-1.00 mg/dL Normal T BILI 0.30 LAB L501.4700 0.00-0.30 mg/dL Normal D BILI 0.13 Performed By: #### L500.3400 #### [facility] [address] [place], [place], [address] LIPID PROFILE Collected: 07/27/2017 Status: F Source: [place] 8:21 AM [facility] REPOSITORY Order Comment: Order Date: 01/26/17 Order Info: 0788-1 - *Hepatic Function Panel PLEASE FAX DR. MOLLY SCHWARZ [place], [place], [place] [phone] LIVER LIPID PTINR GOES TO [facility] [phone] Order Info: 60426-5 - *Lipid Profile CC PCP Comments: 12 hours fasting, may have water. TYPE CODE TESTS RESULT OUT OF RANGE REFERENCE UNITS LAB L501.4900 200 mg/dL Normal CHOL 101 Result Comment: <200 mg/dL Desirable 200-240 mg/dL Borderline >240 mg/dL High Risk LAB L501.5000 mg/dL Normal TRIG 161 Result Comment: The drugs N-Acetylcysteine and Metamizole may falsely depress this assay. Serum Triglycerides Reference Interval Normal <150 mg/dL Borderline high 150 - 199 mg/dL High 200 - 499 mg/dL Very High > or = 500 mg/dL LAB L501.6400 mg/dL Low HDL 31 Result Comment: The drugs N-Acetylcysteine and Metamizole may falsely depress this assay. Reference Range HDL <40 mg/dL Low HDL Cholesterol HDL >or= 60 mg/dL High HDL Cholesterol LAB L501.6500 0-130 mg/dL Normal LDL 38 LAB L501.6600 5-40 mg/dL Normal VLDL 32 Performed By: #### L500.4100 #### [facility] [address] [place], [place], [address] PROTHROMBIN TIME W/INR Collected: 06/29/2017 Status: F Source: [place] 8:03 AM [facility] REPOSITORY TYPE CODE TESTS RESULT OUT OF RANGE REFERENCE UNITS LAB L300.4150 11.7-14.9 SECONDS High PROTIME 28.6 LAB L300.4200 Normal INR 2.7 Performed By: #### L300.3900 #### [facility] [address] [place], [address] ALLERGIES ALLERGIES DATE TYPE / CODE NAME / CODE REACTION SEVERITY SOURCE 02/01/2018 Drug Penicillins/ Swelling SV [facility] Allergy/4160 [id number](R Hospital [address](SNOMED XNORM) Repository CT) ENCOUNTERS ENCOUNTERS ADMIT/DISCHARGE ACCOUNT ADMITTING ENCOUNTER LOCATION SOURCE NUMBER CLASS 05/17/2018 [id number] Ambulatory [place] 6 [facility] ing:LAB Repository 04/21/2018 [id number] Ambulatory [place] 3 [facility] ing:MTLAB Repository 04/11/2018/ [id number] Ambulatory [place] 8 0 [facility] ing:LAB Repository 02/01/2018/ [id number] Ambulatory BMSBuilding:B [place] 8 9 [facility] Repository 01/31/2018/ [id number] Ambulatory [place] 8 3 [facility] ing:LAB Repository 12/05/2017/ [id number] [place] 8 5 [facility] ing:LAB Repository 11/09/2017/ [id number] Ambulatory [place] 8 4 [facility] ing:LAB Repository 08/23/2017/ [id number] Ambulatory BMSBuilding:B [place] 8 8 [facility] Repository 08/02/2017/ [id number] Ambulatory BMSBuilding:B [place] 8 6 [facility] Repository 07/27/2017/ [id number] Ambulatory [place] 8 1 [facility] ing:LAB Repository 06/29/2017/ [id number] Amb[place] 8 3 [facility] ing:LAB Repository PAYERS PAYERS ENCOUNTER GUARANTOR PAYER SUBSCRIBER SOURCE 05/17/2018 HANS Velásquez Primary HANS Negrete [id number] Insurance:MEDICARE KOBILARCSIKDOB: On license of [facility] PART A BPolicy Number: [id number] [address] [id number] Repository [address]Vst: (330) Date:2007-05-26 [phone] () 05/17/2018 Secondary HANS Negrete Insurance:HUMANA KOBILARCSIKDOB: [facility] [id number] Hospital Number: Repository [id number] Date:4072-26-31JR [address] [address]EV: 05/17/2018 Tertiary NOT GIVENUNK [place] Insurance:SELF PAY [facility] Number: Effective Repository Date:2018-04-24 04/21/2018 HANS Velásquez Primary HANS Negrete [id number] Insurance:MEDICARE KOBILARCSIKDOB: [facility] [address] PART A BPolicy Number: [id number] [id number] Repository [address]Ifz: 330) Date:2018-04-21 [phone] () 04/21/2018 Secondary HANS Negrete Insurance:HUMANA KOBILARCSIKDOB: [facility] [id number] Hospital Number: Repository [id number] Date:3895-31-18UR [address] [address]PJ: 04/21/2018 Tertiary NOT GIVENUNK [place] Insurance:SELF PAY [facility] Number: Effective Repository Date:2018-04-21 04/11/2018 HANS Velásquez Primary HANS Negrete [id number] Insurance:MEDICARE KOBILARCSIKDOB: [facility] [address] PART A BPolicy Number: [id number] [id number] Repository [address]Byg: 330) Date:2007-05-26 [phone] () 04/11/2018 Secondary HANS Negrete Insurance:HUMANA KOBILARCSIKDOB: [facility] [id number] Hospital Number: Repository [id number] Date:[id number] [address]ID: 04/11/2018 Tertiary NOT GIVENUNK [place] Insurance:SELF PAY [facility] Number: Effective Repository Date:2018-02-23 02/01/2018 HANS Velásquez Primary HANS Negrete [id number] Insurance:MEDICARE KOBILARCSIKDOB: [facility] [address] PART A olicy Number: [id number] [id number] Repository [address]Afx: (330) Date:2017-08-02 [phone] () 02/01/2018 Secondary HANS Alyoster Insurance:HUMANA KOBILARCSIKDOB: [facility] [id number] Hospital Number: Repository [id number] Date:2145-56-06RC [address] [address]FY: 02/01/2018 Tertiary NOT GIVENUNK [place] Insurance:SELF PAY [facility] Number: Effective Repository Date:2018-02-01 01/31/2018 HANS Velásquez Primary HANS Negrete [id number] Insurance:MEDICARE KOBILARCSIKDOB: [facility] [address] PART A BPolicy Number: [id number] [id number] Repository [address]Vlr: 330) Date:2007-05-26 [phone] () 01/31/2018 Secondary HANS Velásquez [place] Insurance:HUMANA KOBILARCSIKDOB: [facility] [id number] Hospital Number: Repository [id number] Date:[id number] [address]ZI: 01/31/2018 Tertiary NOT GIVENUNK [place] Insurance:SELF PAY [facility] Hospital Number: Effective Repository Date:2017-12-27 12/05/2017 HANS Velásquez Primary HANS Negrete [id number] Insurance:MEDICARE KOBILARCSIKDOB: [facility] [address] PART A BPolicy Number: [id number] [id number] Repository [address]Lrp: (330) Date:2007-05-26 [phone] () 12/05/2017 Secondary HANS Velásquez [place] Insurance:HUMANA KOBILARCSIKDOB: [facility] [id number] Hospital Number: Repository [id number] Date:[id number] [address]XX: 12/05/2017 Tertiary NOT GIVENUNK [place] Insurance:SELF PAY [facility] Number: Effective Repository Date:2017-11-24 11/09/2017 HANS Velásquez Primary HANS Negrete [id number] Insurance:MEDICARE KOBILARCSIKDOB: [facility] [address] PART A BPolicy Number: [id number] [id number] Repository [address]Nxv: (592) Date:2007-05-26 [phone] () 11/09/2017 Secondary HANS Negrete Insurance:HUMANA KOBILARCSIKDOB: [facility] [id number] Hospital Number: Repository [id number] Date:5063-41-51CC[address] [address]DT: 11/09/2017 Tertiary NOT GIVENUNK [place] Insurance:SELF PAY [facility] Number: Effective Repository Date:2017-08-23 08/23/2017 HANS Velásquez Primary HANS Negrete [id number] Insurance:MEDICARE KOBILARCSIKDOB: [facility] [address] PART A BPolicy Number: [id number] [id number] Repository [address]Tob: (223) Date:2017-08-10 [phone] () 08/23/2017 Secondary HANS Negrete Insurance:HUMANA KOBILARCSIKDOB: [facility] [id number] Hospital Number: Repository [id number] Date:6586-63-71CX[address] [address]KN: 08/23/2017 Tertiary NOT GIVENUNK [place] Insurance:SELF PAY [facility] Hospital Number: Effective Repository Date:2017-08-23 08/02/2017 HANS Velásquez Primary HANS Negrete [id number] Insurance:MEDICARE KOBILARCSIKDOB: [facility] [address] PART A BPolicy Number: [id number] [id number] Repository [address]Xzg: (330) Date:2017-04-03 [phone] () 08/02/2017 Secondary HANS Alyoster Insurance:HUMANA KOBILARCSIKDOB: [facility] COMMERCIALPoly [id number] Hospital Number: Repository [id number] Date:6256-54-99FG[address] [address]CN: 08/02/2017 Tertiary NOT GIVENUNK [place] Insurance:SELF PAY [facility] Number: Effective Repository Date:2017-08-02 07/27/2017 Hans Velásquez Primary Hans Negrete [id number] Insurance:MEDICARE KobilarcsikDOB: [facility] [address] PART A BPolicy Number: [id number] [id number] Repository [address]Hyi: (540) Date:2007-05-26 [phone] () 07/27/2017 Secondary Hans Alyoster Insurance:HUMANA KobilarcsikDOB: [facility] [id number] Hospital Number: Repository [id number] Date:8313-23-02QZ[address] [address]IS: 07/27/2017 Tertiary NOT GIVENUNK [place] Insurance:SELF PAY [facility] Hospital Number: Effective Repository Date:2017-07-25 06/29/2017 Hans Velásquez Primary Hans Didier Negrete [id number] Insurance:MEDICARE KobilarcsikDOB: [facility] [address] PART A BPolicy Number: [id number] [id number] Repository [address]Cnp: (330) Date:2007-05-26 [phone] () 06/29/2017 Secondary Hans Alyoster Insurance:HUMANA KobilarcsikDOB: [facility] [id number] Hospital Number: Repository [id number] Date:5298-85-81OV[address] [address]WK: 06/29/2017 Tertiary NOT GIVENUNK [place] Insurance:SELF PAY [facility] Number: Effective Repository Date:2017-04-25
== END 2018-04-11 09:00 | disposition home or self-care (01) ==
LOC: LAB 08:41
PROVIDERS: Family Provider Family Medicine; PCP Family Medicine; Referring Provider Internal Medicine Cardiovascular Disease; Visit Provider Internal Medicine Cardiovascular Disease
DX: I48.2 Chronic atrial fibrillation (principal); Z79.01 Long term (current) use of anticoagulants
CPT/HCPCS: 36415; 85610

== ENCOUNTER → 2018-04-21 10:34 | Outpatient (CLI) | payer MEDICARE, OTHER, SELFPAY ==
[2018-02-01 10:49] VITALS: BMI 45.3
[2018-04-21 12:43] LABS: T4 Total, Thyroxin 6.7 ug/dL (4.5-12.1); Thyroid Stim Hormone (TSH) 1.52 uIU/mL (0.358-3.74)
[2018-04-21 13:34] LABS: Microalbumin:Creatinine Ratio 949.4 mg/g CRE (<30 mg/g CRE)
[2018-04-21 14:01] LABS: Hemoglobin A1c 8.1 % (4.2-6.3)
== END ==
PROVIDERS: Family Provider Family Medicine; PCP Family Medicine; Referring Provider Family Medicine; Visit Provider Family Medicine
DX: E03.9 Hypothyroidism, unspecified (principal); E11.9 Type 2 diabetes mellitus without complications
CPT/HCPCS: 36415; 82043; 82570; 83036; 84436; 84443

== ENCOUNTER 2018-05-17 08:00 | Outpatient (RCR) | payer MEDICARE, OTHER, SELFPAY ==
[2018-02-01 10:49] VITALS: BMI 45.3
[2018-05-17 09:08] LABS: International Normalized Ratio 2.1; Prothrombin Time (Protime)PT. 23.4 SECONDS (11.7-14.9)
--- OUTSIDE RECORDS SUMMARY | 2018-07-19 02:38 | XMS RPT_ITS ---
:1940 Author Organization OHIP Support Name Relationship Address Phone QUAN PAMELLA Unavailable [address] [place] [address] R Unavailable Unavailable Unavailable KOBILARCSIK, PAMELLA Unavailable [address] + [address] [place] [address] R Unavailable Unavailable Unavailable KOBILARCS[employer], PAMELLA Unavailable [address] + [address] [place] [address] R Unavailable Unavailable Unavailable KOBILARCSIK, PAMELLA Unavailable [address] + [address] [place] [address] R Unavailable Unavailable Unavailable KOBILARCS[employer], PAMELLA Unavailable [address] + [address] [place] [address] R Unavailable Unavailable Unavailable KOBILARCSIK, PAMELLA Unavailable [address] + [address] [place] [address] R Unavailable Unavailable Unavailable KOBILARCSIK, PAMELLA Unavailable [address] + [address] [place] [address] R Unavailable Unavailable Unavailable KOBILARCS[employer], PAMELLA Unavailable [address] + [address] [place] [address] R Unavailable Unavailable Unavailable KOBILARCSIK, PAMELLA Unavailable [address] + [address] [place] [address] R Unavailable Unavailable Unavailable R Unavailable Unavailable Unavailable PEREZ, SHAMAR Unavailable [address] + [place] [address] KOBILARCSIK, PAMELLA Unavailable [address] [phone] [place] [address] R Unavailable Unavailable Unavailable PEREZ, SHAMAR Unavailable [address] + [place] [address] KOBILARCSIK, PAMELLA Unavailable [address] [facility] [phone] [place] [address] R Unavailable Unavailable Unavailable Care Team Providers Name Role Phone Jolliff, Masha Attending Unavailable Jolliff, Masha Referring Unavailable Jolliff, Masha Primary Care Unavailable Karyn, [place] Attending Unavailable Karyn, Russ Referring Unavailable Jolliff, Masha Primary Care Unavailable Jackelyn Moore Consulting Unavailable Asfoura, Jejessed Consulting Unavailable Karyn, [place] Attending Unavailable Jolliff, Masha Primary Care Unavailable Karyn, Russ Referring Unavailable Asfoura, Jehad Consulting Unavailable Karyn, [place] Attending Unavailable Karyn, [place] Referring Unavailable Jolliff, Masha Primary Care Unavailable Asfoura, Jehad Consulting Unavailable Jackelyn Moore Consulting Unavailable Karyn, Russ Attending Unavailable Jolliff, Masha Referring Unavailable Jolliff, Masha Primary Care Unavailable Remedios Coleman MANAGER RESPIRATORY-C Attending Unavailable Jolliff, Masha Referring Unavailable Jolliff, Masha Primary Care Unavailable Karyn, Russ Attending Unavailable Karyn, [place] Referring Unavailable Jolliff, Masha Primary Care Unavailable Jackelyn Moore Consulting Unavailable Karyn, Russ Attending Unavailable Karyn, [place] Referring Unavailable Jolliff, Masha Primary Care Unavailable Jackelyn Moore Consulting Unavailable Karyn, [place] Attending Unavailable Karyn, [place] Referring Unavailable Jolliff, Masha Primary Care Unavailable Jackelyn Moore Consulting Unavailable Asfoura, Jehad Consulting Unavailable Jackelyn Moore Attending Unavailable Jolliff, Masha Referring Unavailable Karyn, [place] Attending Unavailable Karyn, Russ Referring Unavailable Jolliff, Masha Primary Care Unavailable Jackelyn Moore Consulting Unavailable Asfoura, Jehad Consulting Unavailable PROBLEMS PROBLEMS DATE TYPE CONDITION / CODE ATTENDING STATUS SOURCE Unknown 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, [place] Active [place] [facility] (current) use of Community anticoagulants / Hospital Z79.01(ICD-10) Repository Unknown I48.2 - Chronic atrial Karyn, Russ Active [place] fibrillation / Community I48.2(ICD-10) Hospital Repository Unknown I25.10 - Atherosclerotic Moore, Active [place] 8 heart disease of [place] Jackelyn [facility] coronary artery without Hospital angina pectoris / Repository I25.10(ICD-10) Unknown E11.9 - Type 2 diabetes Oscar Active [place] 8 mellitus without Jackelyn [facility] complications / Hospital E11.9(ICD-10) Repository Unknown E78.5 - Hyperlipidemia, Karyn, Russ Active [place] unspecified / Community E78.5(ICD-10) Hospital Repository [...] Unknown E78.00 - Pure Karyn, Russ Active [place] 8 hypercholesterolemia, Community unspecified / Hospital E78.00(ICD-10) Repository Unknown E78.0 - Pure Karyn, [place] Active [place] 8 hypercholesterolemia / Community E78.0(ICD-10) Hospital Repository Unknown E11.65 - Type 2 diabetes Karyn, Russ Active [place] 8 mellitus with Community hyperglycemia / Hospital E11.65(ICD-10) Repository Unknown I10 - Essential (primary) Karyn, [place] Active [place] hypertension / Community I10(ICD-10) Hospital Repository Unknown I48.1 - Persistent atrial Karyn, [place] Active [place] fibrillation / Community I48.1(ICD-10) Hospital Repository Unknown Z95.5 - Presence of Karyn, [place] Active [place] 8 coronary angioplasty Community implant and graft / Hospital Z95.5(ICD-10) Repository Unknown I12.9 - Hypertensive Karyn, Russ Active [place] 8 chronic kidney disease Community with stage 1 through Hospital stage 4 chronic kidney Repository disease, or unspecified chronic kidney disease / I12.9(ICD-10) PROCEDURES PROCEDURES No Procedure Records FoundRESULTS RESULTS PROTHROMBIN TIME W/INR Collected: 05/17/2018 Status: F Source: [place] 8:03 AM [facility] REPOSITORY Order Comment: Comments: STANDING ORDER Comments: STANDING ORDER TYPE CODE TESTS RESULT OUT OF RANGE REFERENCE UNITS LAB L300.4150 11.7-14.9 SECONDS High PROTIME 23.4 LAB L300.4200 Normal INR 2.1 Performed By: #### L300.3900 #### [facility] [address] [place], [address] T4 TOTAL, THYROXIN Collected: 04/21/2018 Status: F Source: [place] 10:41 AM [facility] REPOSITORY TYPE CODE TESTS RESULT OUT OF RANGE REFERENCE UNITS LAB L501.9310 4.5-12.1 ug/dL T4 Normal THYROXIN 6.7 Performed By: #### L501.9310, L501.9520 #### [facility] [address] [place], [address] THYROID STIM HORMONE Collected: 04/21/2018 Status: F Source: [place] (TSH) 10:41 AM [facility] REPOSITORY TYPE CODE TESTS RESULT OUT OF RANGE REFERENCE UNITS LAB L501.9520 0.358-3.74 uIU/mL Normal TSH 1.52 Performed By: #### L501.9310, L501.9520 #### [facility] [address] [place], [address] MICROALB:CREAT Collected: 04/21/2018 Status: F Source: [place] RATIO,RANDOM UR 10:41 AM [facility] REPOSITORY TYPE CODE TESTS RESULT OUT OF RANGE REFERENCE UNITS LAB L501.1200 NO RANGE EST. mg/dL Normal UR CREAT 178.00 LAB L502.0500 NO RANGE EST. mg/L Normal 1690.0 MICROALBUMIN ,UR LAB L502.0600 <30 mg/g CRE mg/g CRE High 949.4 MALB:CREAT Performed By: #### L502.0250 #### [facility] [address] [place], [address] HEMOGLOBIN A1C Collected: 04/21/2018 Status: F Source: [place] 10:41 AM [facility] REPOSITORY TYPE CODE TESTS RESULT OUT OF RANGE REFERENCE UNITS LAB L501.9985 4.2-6.3 % High HGB A1C 8.1 Performed By: #### L501.9985 #### [facility] [address] [place], [address] PROTHROMBIN TIME W/INR Collected: 04/11/2018 Status: F Source: [place] 8:48 AM [facility] REPOSITORY TYPE CODE TESTS RESULT OUT OF RANGE REFERENCE UNITS LAB L300.4150 11.7-14.9 SECONDS High PROTIME 32.9 LAB L300.4200 Normal INR 3.2 Performed By: #### L300.3900 #### [facility] [address] [place], [address] CARDIOLOGY VISIT Observed: 02/07/2018 Status: F Source: [place] REPORT 11:30 AM [facility] REPOSITORY [facility] [address] [place] [address] OFFICE VISIT Date of Service: 02/01/18 MR#: [id number] Acct: [id number] Name: HANS RICHEY Rep #: [id number] : 1940 Provider: Jackelyn Moore Age/Sex: 77/M Location: [facility] Status: Signed HPI HPI Details: HANS RICHEY, [...] brachial Intake Visit Reasons: 6 M FU Disability Case Manager Required: No Accompanied by: none Is patient [...] (Chronic) Hypertension (Chronic) Atherosclerotic heart disease of [place] coronary artery without angina pectoris (Chronic) Chronic atrial fibrillation (Chronic) porter head (current) use of anticoagulants (Chronic) Hypothyroidism (Acute) [...] insufficiency. Assessment AND Plan 1. Atherosclerosis of [place] coronary artery of [place] heart without angina pectoris I25.10 PTCA and ADI to RCA04/03/2003; repeat PTCA and ADI to RCA 06/04/2004: [facility] with POBA- RCA (no stent) 06/03/15 Plan [...] prior to saving. 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 transplanted heart: [place] heart Chronic atrial fibrillation I48.2 Essential hypertension I10 Hypertension type: essential hypertension Pure hypercholesterolemia E78.00 Hyperlipidemia type: pure hypercholesterolemia Coding Level of Care Code Off vis,est,level 3 Diagnoses Atherosclerosis of [place] coronary artery of [place] heart without angina pectoris I25.10 [place] vs. transplanted heart: [place] heart Chronic atrial fibrillation I48.2 Essential hypertension I10 Hypertension type: essential hypertension Pure hypercholesterolemia E78.00 Hyperlipidemia type: pure hypercholesterolemia 02/07/18 1040 <Electronically signed by Jackelyn QUINN> Date Jackelyn QUINN 02/07/18 1130<Electronically signed by Russ Boss MD> Cosigner Signature: Date (if applicable) Russ Boss MD CC: Masha Treviño MD CBC-COMPLETE BLOOD CNT Collected: 01/31/2018 Status: F Source: [place] NO DIFF 8:41 AM [facility] REPOSITORY Order Comment: BMP AND CBC FOR [...] MPV 9.8 Performed By: #### L100.0500 #### [facility] [address] [facility] [place], [address] PROTHROMBIN TIME W/INR Collected: 01/31/2018 Status: F Source: [place] 8:41 AM [facility] REPOSITORY Order Comment: BMP AND CBC FOR DR SCHWARZ LIVER,LIPID INR FOR [facility] TYPE CODE TESTS RESULT OUT OF RANGE REFERENCE UNITS LAB L300.4150 11.7-14.9 SECONDS High PROTIME 29.0 LAB L300.4200 Normal INR 2.7 Performed By: #### L300.3900 #### [facility] [address] [place] [place], [address] BASIC METABOLIC Collected: 01/31/2018 Status: F Source: [place] PROFILE (BMP) 8:41 AM [facility] REPOSITORY Order Comment: BMP AND CBC FOR [...] Performed By: #### L500.2500, L500.3400, L500.4100 #### [facility] [address] [place], [address] LIVER PROFILE Collected: 01/31/2018 Status: F Source: [place] 8:41 AM [facility] REPOSITORY Order Comment: BMP AND CBC FOR [...] Performed By: #### L500.2500, L500.3400, L500.4100 #### [facility] [address] [place], [place], [address] LIPID PROFILE Collected: 01/31/2018 Status: F Source: [place] 8:41 AM [facility] REPOSITORY Order Comment: BMP AND CBC FOR [...] Performed By: #### L500.2500, L500.3400, L500.4100 #### [facility] [address] [place], [place], [address] PROTHROMBIN TIME W/INR Collected: 12/05/2017 Status: F Source: [place] 8:49 AM [facility] REPOSITORY TYPE CODE TESTS RESULT OUT OF RANGE REFERENCE UNITS LAB L300.4150 11.7-14.9 SECONDS High PROTIME 26.2 LAB L300.4200 Normal INR 2.4 Performed By: #### L300.3900 #### [facility] [address] [place], [place], [address] PROTHROMBIN TIME W/INR Collected: 11/09/2017 Status: F Source: [place] 8:17 AM [facility] REPOSITORY Order Comment: CRITICAL VALUE VERIFIED. CALLED TO DUSTIN 11/09/17 0946 Val Neal Geovany. RESULTS READ BACK BY DUSTIN . TYPE CODE TESTS RESULT OUT OF REFERENCE UNITS RANGE LAB L300.4150 11.7-14.9 SECONDS High PROTIME 36.2 LAB L300.4200 High alert INR 3.6 Performed By: #### L300.3900 #### [facility] [address] [place], [place], [address] ENDOCRINOLOGY VISIT Observed: 08/25/2017 Status: F Source: [place] REPORT 10:29 AM [facility] REPOSITORY [facility] [address] [place], [place] [address] OFFICE VISIT Date of Service: 08/23/17 MR#: [id number] Acct: [id number] Name: HANS RICHEY Rep #: [id number] : 1940 Provider: Remedios Coleman NP Age/Sex: 77/M Location: [facility] Status: Signed HPI History of present illness [...] No carb counting Exercise Plans to join [employer] in the summer SMBG 2-4 times daily [...] M FU Chief Complaint: follow up visit Disability Case Manager Required: No Accompanied by: Self Is patient [...] : low : 121 high : 190 [facility] Medical History Sleep apnea (Chronic) Diabetes mellitus type II, controlled (Chronic) Hyperlipidemia (Chronic) Hypertension (Chronic) Stented coronary artery (Chronic) Atherosclerotic heart disease of [place] coronary artery without angina pectoris (Chronic) Chronic atrial fibrillation (Chronic) care home (current) use of anticoagulants (Chronic) Hypothyroidism (Acute) [...] Status: F Source: [place] REPORT 10:17 AM [facility] REPOSITORY [facility] [address] [place], [place] [address] [place] [address] OFFICE VISIT Date of Service: 08/02/17 MR#: [id number] Acct: [id number] Name: HANS RICHEY Rep #: [id number] : 1940 Provider: Russ Boss MD Age/Sex: 77/M Location: [facility] Status: Signed [facility] Chief Complaint: follow up visit Details: HANS [...] coronary artery (Chronic) Atherosclerotic heart disease of [place] coronary artery without angina pectoris (Chronic) Chronic atrial fibrillation (Chronic) care home (current) use of anticoagulants (Chronic) Surgical History [...] affect Assessment AND Plan 1. Atherosclerosis of [place] coronary artery of [place] heart without angina pectoris I25.10 PTCA and ADI to RCA04/03/2003; repeat PTCA and ADI to RCA 06/04/2004: 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 transplanted heart: [place] heart Essential hypertension I10 Hypertension type: essential hypertension Chronic atrial fibrillation I48.2 Pure hypercholesterolemia E78.00; E78.0 Hyperlipidemia type: pure hypercholesterolemia Coding Level of Care Code Off vis,est,level 3 Diagnoses Atherosclerosis of [place] coronary artery of [place] heart without angina pectoris I25.10 [place] vs. transplanted heart: [place] heart Essential hypertension I10 Hypertension type: essential hypertension Chronic atrial fibrillation I48.2 Pure hypercholesterolemia E78.00; E78.0 Hyperlipidemia type: pure hypercholesterolemia 08/02/17 1017 <Electronically signed by Russ Boss MD> Date Russ Boss MD Cosigner Signature: Date (if applicable) CC: Masha Treviño MD CBC W/DIFF, AUTOMATED Collected: 07/27/2017 Status: F Source: [place] 8:24 AM [facility] REPOSITORY Order Comment: PLEASE FAX DR. MOLLY SCHWARZ [facility], [place], [place] [phone] LIVER LIPID PTINR GOES TO [facility] [phone] TYPE CODE TESTS RESULT OUT OF RANGE [...] Lymph 1.29 Performed By: #### L100.0100 #### [facility] [address] [place], [address] PROTHROMBIN TIME W/INR Collected: 07/27/2017 Status: F Source: [place] 8:24 AM [facility] REPOSITORY Order Comment: PLEASE FAX DR. MOLLY SCHWARZ [place], [place], [place] [phone] LIVER LIPID PTINR GOES TO [facility] [phone] TYPE CODE TESTS RESULT OUT OF RANGE REFERENCE UNITS LAB L300.4150 11.7-14.9 SECONDS High PROTIME 25.1 LAB L300.4200 Normal INR 2.3 Performed By: #### L300.3900 #### [facility] [address] [place], [address] BASIC METABOLIC Collected: 07/27/2017 Status: F Source: [place] PROFILE (BMP) 8:21 AM [facility] REPOSITORY Order Comment: Order Date: 01/26/17 Order Info: 0788-1 - *Hepatic Function Panel PLEASE FAX DR. MOLLY SCHWARZ [place], [place], [place] [phone] LIVER LIPID PTINR GOES TO [facility] [phone] Order Info: 81546-4 - *Lipid Profile CC PCP Comments: 12 [...] GAP 10 Performed By: #### L500.2500 #### [facility] [address] [place], [place], [address] LIVER PROFILE Collected: 07/27/2017 Status: F Source: [place] 8:21 AM [facility] REPOSITORY Order Comment: Order Date: 01/26/17 Order Info: 0788-1 - *Hepatic Function Panel PLEASE FAX DR. MOLLY SCHWARZ [facility], [place], [place] [phone] LIVER LIPID PTINR GOES TO [facility] [phone] Order Info: 72711-7 - *Lipid Profile CC PCP Comments: 12 [...] BILI 0.13 Performed By: #### L500.3400 #### [facility] [address] [place], [place], [address] LIPID PROFILE Collected: 07/27/2017 Status: F Source: [place] 8:21 AM [facility] REPOSITORY Order Comment: Order Date: 01/26/17 Order Info: 0788-1 - *Hepatic Function Panel PLEASE FAX DR. MOLLY SCHWARZ [place], [place], [place] [phone] LIVER LIPID PTINR GOES TO [facility] [phone] Order Info: 87415-9 - *Lipid Profile CC PCP Comments: 12 [...] VLDL 32 Performed By: #### L500.4100 #### [facility] [address] [place], [place], [address] PROTHROMBIN TIME W/INR Collected: 06/29/2017 Status: F Source: [place] 8:03 AM [facility] REPOSITORY TYPE CODE TESTS RESULT OUT OF RANGE REFERENCE UNITS LAB L300.4150 11.7-14.9 SECONDS High PROTIME 28.6 LAB L300.4200 Normal INR 2.7 Performed By: #### L300.3900 #### [facility] [address] [place], [address] ALLERGIES ALLERGIES DATE TYPE / CODE NAME / CODE REACTION SEVERITY SOURCE 02/01/2018 Drug Penicillins/ Swelling SV [facility] Allergy/4160 [id number](R Hospital 54448(SNOMED XNORM) Repository CT) ENCOUNTERS ENCOUNTERS ADMIT/DISCHARGE ACCOUNT ADMITTING ENCOUNTER LOCATION SOURCE NUMBER CLASS 05/17/2018 [id number] Ambulatory [place] 6 [facility] ing:LAB Repository 04/21/2018 [id number] Ambulatory [place] 3 [facility] ing:MTLAB Repository 04/11/2018/ [id number] Ambulatory [place] 8 0 [facility] ing:LAB Repository 02/01/2018/ [id number] Ambulatory BMSBuilding:B [place] [facility] 9 [facility] Repository 01/31/2018/ [id number] Ambulatory [place] 8 3 [facility] ing:LAB Repository 12/05/2017/ [id number] Amb[place] 5 [facility] ing:LAB Repository 11/09/2017/ [id number] Ambulatory [place] 4 [facility] ing:LAB Repository 08/23/2017/ [id number] Ambulatory BMSBuilding:B [place] 8 8 [facility] Repository 08/02/2017/ [id number] Ambulatory BMSBuilding:B [place] 6 [facility] Repository 07/27/2017/ [id number] Ambulatory [place] 1 [facility] ing:LAB Repository 06/29/2017/ [id number] Ambulatory [place] 8 3 [facility] ing:LAB Repository PAYERS PAYERS ENCOUNTER GUARANTOR PAYER SUBSCRIBER SOURCE 05/17/2018 HANS Velásquez Primary HANS Negrete [id number] Insurance:MEDICARE KOBILARCSIKDOB: [facility] PART A BPolicy Number: [id number] [address] [id number] Repository [address]Zrp: (330) Date:2007-05-26 [phone] () 05/17/2018 Secondary HANS Negrete Insurance:HUMANA KOBILARCSIKDOB: [facility] [id number] Hospital Number: Repository [id number] Date:4618-93-84ZF [address] [address]QB: 05/17/2018 Tertiary NOT GIVENUNK [place] Insurance:SELF PAY [facility]: Effective Repository Date:2018-04-24 04/21/2018 HANS Velásquez Primary HANS Negrete [id number] Insurance:MEDICARE KOBILARCSIKDOB: [facility] [address] PART A BPolicy Number: [id number] [id number] Repository [address]Pae: 330) Date:2018-04-21 [phone] () 04/21/2018 Secondary HANS Negrete Insurance:HUMANA KOBILARCSIKDOB: [facility] [id number] Hospital Number: Repository [id number] Date:3086-84-38LR [address] [address]WY: 04/21/2018 Tertiary NOT GIVENUNK [place] Insurance:SELF PAY [facility] Number: Effective Repository Date:2018-04-21 04/11/2018 HANS Velásquez Primary HANS Negrete [id number] Insurance:MEDICARE KOBILARCSIKDOB: [facility] [address] PART A BPolicy Number: [id number] [id number] Repository [address]Cxd: 330) Date:2007-05-26 [phone] () 04/11/2018 Secondary HANS Negrete Insurance:HUMANA KOBILARCSIKDOB: [facility] [id number] Hospital Number: Repository [id number] Date:[id number] [address]DV: 04/11/2018 Tertiary NOT GIVENUNK [place] Insurance:SELF PAY [facility] Number: Effective Repository Date:2018-02-23 02/01/2018 HANS Velásquez Primary HANS Negrete [id number] Insurance:MEDICARE KOBILARCSIKDOB: [facility] [address] PART A olicy Number: [id number] [id number] Repository [address]Qcf: (330) Date:2017-08-02 [phone] () 02/01/2018 Secondary HANS Alyoster Insurance:HUMANA KOBILARCSIKDOB: [facility] [id number] Hospital Number: Repository [id number] Date:6345-30-35RW [address] [address]UT: 02/01/2018 Tertiary NOT GIVENUNK [place] Insurance:SELF PAY [facility] Number: Effective Repository Date:2018-02-01 01/31/2018 HANS Velásquez Primary HANS Negrete [id number] Insurance:MEDICARE KOBILARCSIKDOB: [facility] [address] PART A BPolicy Number: [id number] [id number] Repository [address]Kxr: 330) Date:2007-05-26 [phone] () 01/31/2018 Secondary HANS Velásquez [place] Insurance:HUMANA KOBILARCSIKDOB: [facility] [id number] Hospital Number: Repository [id number] Date:[id number] [address]KN: 01/31/2018 Tertiary NOT GIVENUNK [place] Insurance:SELF PAY [facility] Number: Effective Repository Date:2017-12-27 12/05/2017 HANS Velásquez Primary HANS Negrete [id number] Insurance:MEDICARE KOBILARCSIKDOB: [facility] [address] PART A BPolicy Number: [id number] [id number] Repository [address]Yve: (330) Date:2007-05-26 [phone] () 12/05/2017 Secondary HANS Velásquez [place] Insurance:HUMANA KOBILARCSIKDOB: [facility] [id number] Hospital Number: Repository [id number] Date:[id number] [address]FV: 12/05/2017 Tertiary NOT GIVENUNK [place] Insurance:SELF PAY [facility] Number: Effective Repository Date:2017-11-24 11/09/2017 HANS Velásquez Primary HNAS Negrete [id number] Insurance:MEDICARE KOBILARCSIKDOB: [facility] [address] PART A BPolicy Number: [id number] [id number] Repository [address]Enn: ([phone]) Date:2007-05-26 [phone] () 11/09/2017 Secondary HANS Negrete Insurance:HUMANA KOBILARCSIKDOB: [facility] [id number] Hospital Number: Repository [id number] Date:[id number] [address]ZB: 11/09/2017 Tertiary NOT GIVENUNK [place] Insurance:SELF PAY [facility] Hospital Number: Effective Repository Date:2017-08-23 08/23/2017 HANS Velásquez Primary HANS Negrete [id number] Insurance:MEDICARE KOBILARCSIKDOB: [facility] [address] PART A BPolicy Number: [id number] [id number] Repository [address]Tya: (713) Date:2017-08-10 [phone] () 08/23/2017 Secondary HASN Negrete Insurance:HUMANA KOBILARCSIKDOB: [facility] [id number] Hospital Number: Repository [id number] Date:[id number] [address]HR: 08/23/2017 Tertiary NOT GIVENUNK [place] Insurance:SELF PAY [facility] Number: Effective Repository Date:2017-08-23 08/02/2017 HANS Velásquez Primary HANS Negrete [id number] Insurance:MEDICARE KOBILARCSIKDOB: [facility] [place] PART A BPolicy Number: [id number] [id number] Repository [address]Dfa: ([phone]) Date:2017-04-03 [id number] () 08/02/2017 Secondary HANS Alyoster Insurance:HUMANA KOBILARCSIKDOB: [facility] COMMERCIALPoly [id number] Hospital Number: Repository [id number] Date:[id number] [address]RI: 08/02/2017 Tertiary NOT GIVENUNK [place] Insurance:SELF PAY [facility] Number: Effective Repository Date:2017-08-02 07/27/2017 Hans Velásquez Primary Hans Negrete [id number] Insurance:MEDICARE KobilarcsikDOB: [facility] [place] PART A BPolicy Number: [id number] [id number] Repository [address]Ics: [phone]) Date:2007-05-26 [id number] () 07/27/2017 Secondary Hans Alyoster Insurance:HUMANA KobilarcsikDOB: [facility] [id number] Hospital Number: Repository [id number] Date:[id number] [address]PB: 07/27/2017 Tertiary NOT GIVENUNK [place] Insurance:SELF PAY [facility] Number: Effective Repository Date:2017-07-25 06/29/2017 Hans Velásquez Primary Hans Didier Negrete [id number] Insurance:MEDICARE KobilarcsikDOB: [facility] [place] PART A BPolicy Number: [id number] [id number] Repository [address]Ghe: ([phone]) Date:2007-05-26 [id number] () 06/29/2017 Secondary Hans Alyoster Insurance:HUMANA KobilarcsikDOB: [facility] [id number] Hospital Number: Repository [id number] Date:[id number] [address]MG: 06/29/2017 Tertiary NOT GIVENUNK [place] Insurance:SELF PAY [facility]: Effective Repository Date:2017-04-25
== END 2018-05-17 09:00 | disposition home or self-care (01) ==
LOC: LAB 08:00
PROVIDERS: Family Provider Family Medicine; PCP Family Medicine; Referring Provider Internal Medicine Cardiovascular Disease; Visit Provider Internal Medicine Cardiovascular Disease
DX: I48.2 Chronic atrial fibrillation (principal); Z79.01 Long term (current) use of anticoagulants
CPT/HCPCS: 36415; 85610

== ENCOUNTER 2018-07-12 10:27 | Outpatient (RCR) | payer MEDICARE, OTHER, SELFPAY ==
[2018-02-01 10:49] VITALS: BMI 45.3
[2018-07-12 11:39] LABS: International Normalized Ratio 2.9; Prothrombin Time (Protime)PT. 30.1 SECONDS (11.7-14.9)
== END 2018-07-12 11:00 | disposition home or self-care (01) ==
LOC: LAB 10:27
PROVIDERS: Family Provider Family Medicine; PCP Family Medicine; Referring Provider Internal Medicine Cardiovascular Disease; Visit Provider Internal Medicine Cardiovascular Disease
DX: I48.2 Chronic atrial fibrillation (principal); Z79.01 Long term (current) use of anticoagulants
CPT/HCPCS: 36415; 85610

== ENCOUNTER 2018-07-19 10:00 | Outpatient (RCR) | payer MEDICARE, OTHER, SELFPAY ==
--- NOTE | 2018-05-22 15:17 | HP.PTEVAL ---
Patient's Visit Information HANS GLASS is a 77 year old M referred to Physical Therapy by Agustin Vera DO with a diagnosis of LB disc degeneration.. Date of Evaluation: 05/22/18 Physical Therapist: Parker Teran, DPT, OCS, CSCS - Visit Plan Frequency: 2x /Week Duration: 4-6 Weeks Plan: f/u after 2 week vacation to [place]. Likely 2x/week for 4 weeks, will need to rollout asnd stretch quads and HS and increase ROM in LB and strengthen NS core musculature/gluts. Pt to call prior if conerns, will work on HEP of pelvic tilt, HS strech and flexion in sitting leading up to departure this weekend. - Subjective Findings: 4 weeks ago started with LBP and HS pain B. Was at doctor for knees adn mentioned LBP. Worse if he is on his feet for long time. Sitting is OK and stadnign too long is the proble. Bending over bed to fold laundry is worse. MH helps, patch helps . 3 moinths ago no pain! Gradual onset. 6-7 /10 when it is bad, 0/10 at rest. Was just at [employer] and walking was a problem, needed WC. Sleeps fine. Getting dressed is not a problem. Also gets Alexander horses in quads. Works at [employer] sitting in chair 30 hours week. This is nor problem. Finished golfing season without a problem. - Pain LBP/HS Pain Intensity (Out of 10): 0 Pain Intensity Range: 0, 7 - Objective Walks with short steps adn very little glut activation. Safe and I. Walks 300 feet today and has increased pain on steps in B HS, needs rail and reciprocal. LB aROM very limited in all directions from L2-S1, paiinful to extend, stiff to flex FW. reflexes 0/3 patella and achilles. Has diminished sensation to gross light touch in B LE mid calf down (DM2). Strength LE 4- hips, 4+ ankles and knees. 3+ in trunk needing assist to sit from supine. Poor pelvic control adn minimal movement. - Goals Goal 1:: LB AROM mod limited without pain Goal Time Frame: 4-6 Weeks Goal 2:: Patient feel pain no greater than 2/10 at worst and intermittent adn manageable. Goal Time Frame: 4-6 Weeks Goal 3:: Pt I in approp HEP to minimize future problems. Goal Time Frame: 4-6 Weeks Goal 4:: Pt walk in [place] without increased pain greater than 4/10 Goal Time Frame: 2 Weeks - Rehabilitation Potential Physical Therapy Diagnosis: LB stenosis Rehabilitation Potential: Fair - Anticipated Interventions Patient/Client Instruction: Educate patient on: Condition, Plan of Care For the Purpose of:: To decrease pain, To increase ROM, To improve ability of physical actions for home/community/work/leisure Therapeutic Exercise to Include: Flexibilty training, Passive ROM, Active ROM, Dynamic Lumbar Stabilization For the Purpose of:: To decrease pain, To increase ROM, To improve performance and independence with ADL's Manual Therapy Techniques to Include: Mobilization, Soft tissue mobilization Comment: flexion mobs L/S For the Purpose of:: To increase ROM Thank you for the opportunity to evaluate your patient. For Medicare and Medicare HMO plans, please review the plan of care and approve it. It will need to be FAXED BACK to us at [phone] for Medicare purposes. For Medicare only, by signing this I certify the plan of care. Please let me know if there are questions or concerns regarding this plan of care. Physician Signature: Date:
--- NOTE | 2018-07-05 11:53 | HP.PTREVAL ---
Agustin Vera, DO, It has been my pleasure to treat HANS GLASS over the last 10 visits for LB disc degeneration.. Please see the progress note below for an update on the physical therapy plan of care! Subjective: Working on back recently has really helped. Woring out in gym on machines has helped. Seeing chiropractor and it may be helping. Will continue working out. Walking without cane today and feeling pretty good without pain in legs since treatment. 05/04 am and 11/01. No f/u with Dr. Vera. Will see pain management. HEP includes HS stretch, fis, prirformis stretch, Objective/Function: LB AROM tight in all idrections but only slight reproducible leg/LBP with ext. Walks with R trendelenberg. Plan Plan: 2x/week for 2 more weeks. 1. flexion LB mobs and STM. 2. NS stregnth via mat and standing and progress to gym. 3. B hip strength in gym to I. Pt can stretch HEP on his own at home. Goals Goal 1:: LB AROM mod limited without pain Goal Time Frame: 4-6 Weeks Goal Progress: Progressing Goal 2:: Patient feel pain no greater than 2/10 at worst and intermittent adn manageable. Goal Time Frame: 4-6 Weeks Goal Progress: Progressing Goal 3:: Pt I in approp HEP to minimize future problems. Goal Time Frame: 4-6 Weeks Goal Progress: Progressing Goal 4:: Pt walk in [place] without increased pain greater than 4/10 Goal Time Frame: 2 Weeks Anticipated Interventions Patient/Client Instruction: Educate patient on: Condition, Plan of Care For the Purpose of:: To decrease pain, To increase ROM, To improve ability of physical actions for home/community/work/leisure Therapeutic Exercise to Include: Flexibilty training, Passive ROM, Active ROM, Dynamic Lumbar Stabilization For the Purpose of:: To decrease pain, To increase ROM, To improve performance and independence with ADL's Manual Therapy Techniques to Include: Mobilization, Soft tissue mobilization Comment: flexion mobs L/S For the Purpose of:: To increase ROM Please do not hesitate to contact me at [phone] by phone or if you have questions or concerns regarding this new plan of care! Sincerely, Parker Teran, DPT, OCS, CSCS
--- NOTE | 2018-07-19 10:48 | HP.PTDCSUM_ITS ---
HP - PT D/C Summary It has been my pleasure to treat HANS GLASS under orders from Agustin Vera DO, for the diagnosis of LB disc degeneration. for a total of 14 visit(s). Discharge Date: 07/19/18 Please see the following information for a summary of their discharge status. - Subjective Subjective: Not really any better. Feels good after the treatment but doesn;t last long. Walking is still perturbating factor. Fell last night while carrying food and tripped on threshold. Rolled to chair to get up but did not hurt self. Can walk more at work with less pain. Will see pain docr next week. Wants to see speciallist surgeon . HEP stretching adn some gym exercises but not consistently. - Pain LBP/HS Pain Intensity (Out of 10): 0 - Overall Improvement % Improvement: 30 - Objective Objective/Function: Moderate ROM deficits in LB with pulling feeling in leg at end of L/S ext adn L SB. Tightness present in flexion. Walking as normal and hard time focussing on neutral spine. - Goals Goal 1:: LB AROM mod limited without pain Goal Progress: Goal Met Goal 2:: Patient feel pain no greater than 2/10 at worst and intermittent adn manageable. Goal Progress: Not Progressing Goal 3:: Pt I in approp HEP to minimize future problems. Goal Progress: Not Progressing Goal 4:: Pt walk in [place] without increased pain greater than 4/10 Goal Progress: Not Progressing - Plan Plan: D/C, pt to see pain management and continue HEP/gym. May see spinal specialist. Water therapy should be considered if no other viable options. - D/C Information Discharge Comments: pt to see pain management and continue home stretches, NS focus and gym. If there are questions or concerns regarding this patient's physical therapy, please feel free to call me at [phone]. Thank you for the referral of this patient. Sincerely, Parker Teran, DPT, OCS, CSCS
== END 2018-07-19 19:00 | disposition home or self-care (01) ==
LOC: PT 10:00
PROVIDERS: Family Provider Family Medicine; PCP Family Medicine; Visit Provider Orthopaedic Surgery
DX: M51.36 Other intervertebral disc degeneration, lumbar region (principal)
CPT/HCPCS: 97012; 97014; 97110; 97140; 97162; 97530; G0283

== ENCOUNTER → 2018-07-24 13:37 | Outpatient (CLI) | payer MEDICARE, OTHER, SELFPAY ==
[2018-02-01 10:49] VITALS: BMI 45.3
--- NOTE | 2018-07-24 13:43 | RAD_ITS ---
STUDY: X-RAY - LUMBAR SPINE REASON FOR EXAM: Male, 78 years old. Low back pain for 3 months. TECHNIQUE: 3 view(s) of the lumbar spine were obtained. COMPARISON: None FINDINGS: Normal lumbar lordosis. There is no substantial scoliosis. There is no demonstrated acute compression fracture deformity. There is multilevel endplate spondylosis of the lumbar vertebrae. There is narrowing of L4-L5 disc space. There is mild anterolisthesis of L5 over S1. There is atherosclerotic calcification of the abdominal aorta without a demonstrated aneurysm. RAD/Lumbar Spine 2 or 3 Views IMPRESSION: Degenerative changes of the spine, as detailed above. Electronically Signed: Aamir Klein MD at 13:21 EDT Tel , Service support ,
== END ==
PROVIDERS: Family Provider Family Medicine; PCP Family Medicine; Referring Provider Anesthesiology Pain Medicine; Visit Provider Anesthesiology Pain Medicine
DX: M54.5 Low back pain (principal)
CPT/HCPCS: 72100

== ENCOUNTER → 2018-08-16 11:01 | Outpatient (CLI) | payer MEDICARE, OTHER, SELFPAY ==
--- NOTE | 2018-08-16 11:00 | MRI_ITS ---
STUDY: MRI LUMBAR SPINE WITHOUT CONTRAST REASON FOR EXAM: Male, 78 years old. Low back pain and bilateral leg pain TECHNIQUE: Standardized fat and water weighted pulse sequences were obtained in the sagittal and axial planes. COMPARISON: Radiographs 07/24/2018 FINDINGS: T12-L1: Incompletely imaged. Probable facet synovial cyst with mild central canal stenosis. Normal lumbar lordosis. There is no substantial scoliosis. Normal conus medullaris that terminates at the L1 level. L1-2: Disc space narrowing and desiccation with discogenic endplate changes and anterior osteophytes. Bulging annulus and bilateral facet hypertrophy with mild central canal stenosis. L2-3: Bulging annulus and bilateral facet hypertrophy with mild central canal and mild right foraminal stenoses. L3-4: Bulging annulus and bilateral facet hypertrophy. A left sided synovial cyst projecting from the left facet joint is noted measuring 12 mm, with moderate to severe central canal stenosis and deflection of the dorsal transiting nerve roots. Moderate bilateral foraminal stenoses. L4-5: Bulging annulus and bilateral facet hypertrophy with mild to moderate central canal stenosis and moderate bilateral foraminal stenoses. L5-S1: Bulging annulus and bilateral facet hypertrophy with mild bilateral foraminal stenoses. Normal visualized sacral ala. Normal visualized paraspinous soft tissue structures. Bilateral renal cysts. MRI/Spine Lumbar (Routine) IMPRESSION: Multilevel degenerative disease as described. Left-sided synovial cyst at the L3-4 level arising from the facet joint with associated deflection of dorsal transiting nerve roots. Moderate bilateral foraminal stenoses at L3-4 and L4-5. Electronically Signed: Samy Sevilla MD at 12:06 EDT Tel , Service support ,
== END ==
PROVIDERS: Family Provider Family Medicine; PCP Family Medicine; Referring Provider Anesthesiology Pain Medicine; Visit Provider Anesthesiology Pain Medicine
DX: M54.9 Dorsalgia, unspecified (principal); M79.606 Pain in leg, unspecified
CPT/HCPCS: 72148

== ENCOUNTER 2018-08-16 12:09 | Outpatient (RCR) | payer MEDICARE, OTHER, SELFPAY ==
[2018-02-01 10:49] VITALS: BMI 45.3
[2018-08-16 13:51] LABS: International Normalized Ratio 2.3
== END 2018-08-22 16:00 | disposition home or self-care (01) ==
LOC: LAB 12:09
PROVIDERS: Family Provider Family Medicine; PCP Family Medicine; Referring Provider Internal Medicine Cardiovascular Disease; Visit Provider Internal Medicine Cardiovascular Disease
DX: I48.2 Chronic atrial fibrillation (principal); Z79.01 Long term (current) use of anticoagulants; M54.9 Dorsalgia, unspecified; M79.606 Pain in leg, unspecified
CPT/HCPCS: 36415; 72148; 85610

== ENCOUNTER 2018-09-15 13:38 | Outpatient (RCR) | payer MEDICARE, OTHER, SELFPAY ==
[2018-02-01 10:49] VITALS: BMI 45.3
[2018-09-15 12:55] VITALS: BMI 45.4
[2018-09-15 14:54] LABS: International Normalized Ratio 2.5; Prothrombin Time (Protime)PT. 26.6 SECONDS (11.7-14.9)
[2018-09-15 15:19] LABS: BNP,B-Type NATRIURETIC PEPTIDE 198.4 pg/mL (0-100)
== END 2018-09-15 15:00 | disposition home or self-care (01) ==
LOC: LAB 13:38
PROVIDERS: Family Provider Family Medicine; PCP Family Medicine; Referring Provider Internal Medicine Cardiovascular Disease; Visit Provider Internal Medicine Cardiovascular Disease
DX: I48.2 Chronic atrial fibrillation (principal); Z79.01 Long term (current) use of anticoagulants; R06.00 Dyspnea, unspecified
CPT/HCPCS: 36415; 83880; 85610

== ENCOUNTER → 2018-10-04 10:07 | Outpatient (CLI) | payer MEDICARE, OTHER, SELFPAY ==
[2018-09-15 12:55] VITALS: BMI 45.4
[2018-10-04 10:39] LABS: Hematocrit 42.3 % (40-54); Hemoglobin 14.4 g/dl (13.0-16.5); Mean Corpuscular Hgb 28.6 pg (27.0-32.0); Mean Corpuscular Volume 83.9 fL (80-94); Mean Platelet Vol. 9.5 fl (6.2-12.0); Platelet Count 154 K/mm3 (150-450); RBC Distribution Width CV 14.2 % (11.6-14.6); RBC Distribution Width SD 43.3 fl (35.1-43.9); Red Blood Count 5.04 M/mm3 (4.6-6.2); White Blood Count 8.6 K/mm3 (4.4-11.0)
[2018-10-04 10:40] LABS: Scan Indicated on CBC? Y/N NO
[2018-10-04 11:02] LABS: Anion Gap 4 (5-15); BUN 41 mg/dL (7-18); BUN/Creat Ratio 16.4 RATIO (10-20); Calcium,Total 9.3 mg/dL (8.5-10.1); Chloride 107 mmol/L (98-107); EST Glomerular Filtration Rate 27 mL/min (>60); Est Glom Filt Rate - Afr Amer 32 mL/min (>60); Glucose 180 mg/dL (74-106); Potassium 4.2 mmol/L (3.5-5.1); Sodium Level 136 mmol/L (136-145)
== END ==
PROVIDERS: Family Provider Family Medicine; PCP Family Medicine; Referring Provider Internal Medicine Nephrology; Visit Provider Internal Medicine Nephrology
DX: N18.4 Chronic kidney disease, stage 4 (severe) (principal); I12.9 Hypertensive chronic kidney disease with stage 1 through stage 4 chronic kidney disease, or unspecified chronic kidney disease
CPT/HCPCS: 36415; 80048; 85027

== ENCOUNTER → 2018-10-09 06:01 | Outpatient (CLI) | payer MEDICARE, OTHER, SELFPAY ==
[2018-09-15 12:55] VITALS: BMI 45.4
--- NOTE | 2018-10-09 06:07 | ECHOCS_ITS ---
Reason For Study: Arrhythmia Procedure This was a 2D Doppler, Color Flow transthoracic echocardiogram. The study was technically difficult. Contrast injection was performed. Exam performed in department. Left Ventricle Normal LV size. Moderate concentric left ventricular hypertrophy. Left ventricular systolic function is normal. Unable to assess diastolic dysfunction due to arrhythmia. No regional wall motion abnormalities noted. Right Ventricle Normal RV size. Normal systolic function. Atria The left atrium is severely enlarged. Normal right atrium. Mitral Valve Normal mitral valve. Mild (1+) eccentric mitral valve insufficiency. Tricuspid Valve Normal tricuspid valve. Mild (1+) tricuspid valve insufficiency. Pulmonary artery systolic pressure is 33 mmHg. Aortic Valve The aortic valve is not well visualized. Pulmonic Valve Normal pulmonic valve. Great Vessels Normal aortic root. The pulmonary artery is normal size. Normal inferior vena cava. Pericardium/Pleural No pericardial effusion. Medication 22 gauge I.V. with prn adaptor inserted into right arm. Diluted definity 6ml given slow IV push to enhance endocardial definition. MMode/2D Measurements & Calculations LVIDd: 4.8 cm IVSd: 1.5 cm Ao root diam: 3.8 cm LVIDs: 2.8 cm LVPWd: 1.5 cm LA dimension: 5.3 cm FS: 41.5 % LAV(MOD-bp): 103.5 ml LA A4 area: 32.9 cm2 RA A4 area: 19.3 cm2 LAV(MOD-bp) Indexed: 42.9 ml/m2 LAV(MOD-sp2): 88.5 ml LAV(MOD-sp4): 114.0 ml Time Measurements MV dec time: 0.22 sec Doppler Measurements & Calculations MV E max andrez: 110.7 cm/sec Lat Peak E' Andrez: 7.4 cm/sec Med Peak E' Andrez: 8.8 cm/sec E/E' lat: 15.0 E/E' med: 12.5 MV V2 max: 115.6 cm/sec MV P1/2t max andrez: 112.7 cm/sec Ao V2 max: 122.5 cm/sec MV max P.3 mmHg MV P1/2t: 107.8 msec Ao max P.0 mmHg MV V2 mean: 56.5 cm/sec MV dec slope: 306.1 cm/sec2 MV mean P.6 mmHg MV V2 VTI: 33.5 cm MVA(P1/2t): 2.0 cm2 LV V1 max: 117.3 cm/sec PA V2 max: 80.9 cm/sec TR max andrez: 271.0 cm/sec LV V1 max P.5 mmHg TR max P.4 mmHg Interpretation Summary Normal LV size. Moderate concentric left ventricular hypertrophy. Left ventricular systolic function is normal. Unable to assess diastolic dysfunction due to arrhythmia. Pulmonary artery systolic pressure is 33 mmHg. Ordering Physician: Russ Boss Referring Physician: Russ Boss Performed By: Alvin Phelps RCS
--- NOTE | 2018-10-09 09:40 | STRESSREP ---
Stress Test Report Pharmacologic myocardial perfusion stress test. 78-year-old man with a history of coronary artery disease, atrial fibrillation. Medications, aspirin, spironolactone, atenolol, clopidogrel. Resting EKG demonstrates atrial fibrillation with a rate of 61 bpm normal intervals are noted resting blood pressures 182/94 mmHg. 0.4 mg of regadenoson was infused per usual protocol followed by rapid intravenous saline flush injection continuous EKG monitoring was performed. The patient maintained atrial fibrillation throughout the recording. The maximum heart rate was 89 bpm which was 61% of maximum predicted heart rate the maximum workload was 1 metabolic equivalent. At rest there were nonspecific ST-T wave changes noted at peak infusion nonspecific ST-T wave changes were noted. The resting blood pressures 182/94 mmHg with a peak blood pressure 160/84 mmHg. Myocardial perfusion protocol. 14.9 mCi of technetium 99m sestamibi was injected at rest. 0.4 mg of regadenoson was infused per usual protocol. At peak infusion 44.8 mCi of technetium 99m sestamibi was injected stress images were obtained stress and rest images were reconstructed and compared in the short axis vertical long and horizontal long axis. Gated images were also obtained per Perfusion SPECT analysis: Review of the attenuation corrected images demonstrated preserved ejection fraction as well as normal perfusion in all areas of the myocardium. The resting images demonstrated the same. The role images however demonstrated mild reduction of perfusion in the distal anterior wall with improvement on the resting images. The above is suggestive of probably normal pharmacologic myocardial perfusion stress test. Gated SPECT analysis: The gated ejection fraction is estimated at 68%. Conclusion: Probably normal pharmacologic myocardial perfusion stress test. Small distal anterior ischemia cannot be excluded. Preserved ejection fraction.
== END ==
PROVIDERS: Family Provider Family Medicine; PCP Family Medicine; Referring Provider Internal Medicine Cardiovascular Disease; Visit Provider Internal Medicine Cardiovascular Disease
DX: I25.10 Atherosclerotic heart disease of native coronary artery without angina pectoris (principal); R06.02 Shortness of breath
CPT/HCPCS: 78452; 93017; 93306; A9500; Q9957; A4216; C8929; J2785

== ENCOUNTER → 2018-10-20 10:20 | Outpatient (CLI) | payer MEDICARE, OTHER, SELFPAY ==
[2018-10-20 12:25] LABS: International Normalized Ratio 2.1; Prothrombin Time (Protime)PT. 23.6 SECONDS (11.7-14.9)
[2018-10-20 12:46] LABS: Hemoglobin A1c 7.4 % (4.2-6.3)
[2018-10-20 12:54] LABS: AST(SGOT) 14 U/L (15-37); Alanine Aminotransfer ALT/SGPT 17 U/L (16-61); Albumin, Serum 3.3 g/dL (3.2-5.0); Alkaline Phosphatase 88 U/L (45-117); Bilirubin, Direct 0.16 mg/dL (0.00-0.30); Cholesterol 108 mg/dL (200); Globulin 3.4 g/dL (2.2-4.2); High Density Lipoprotein 38 mg/dL; Protein, Total 6.7 g/dL (6.4-8.2); Triglycerides 212 mg/dL; Very Low Density Lipoprotein 42 mg/dL (5-40)
== END ==
PROVIDERS: Internal Medicine Cardiovascular Disease; Family Provider Family Medicine; PCP Family Medicine; Referring Provider Family Medicine; Visit Provider Family Medicine
DX: E11.9 Type 2 diabetes mellitus without complications (principal); I48.2 Chronic atrial fibrillation; Z79.01 Long term (current) use of anticoagulants
CPT/HCPCS: 36415; 80061; 80076; 83036; 85610

== ENCOUNTER → 2018-10-30 10:02 | Outpatient (CLI) | payer MEDICARE, OTHER, SELFPAY ==
[2018-10-30 11:07] LABS: Amphetamine Urine VISTA NEGATIVE (<1000 ng/mL); Barbiturate Urine VISTA NEGATIVE (< 200 ng/mL); Benzodiazepine Urine VISTA NEGATIVE (< 200 ng/mL); Cocaine Urine VISTA NEGATIVE (< 300 ng/mL); Ecstacy Urine VISTA NEGATIVE (< 500 ng/mL); Methadone Urine VISTA NEGATIVE (< 300 ng/mL); PCP Urine VISTA NEGATIVE (< 25 ng/mL); THC Urine VISTA NEGATIVE (< 50 ng/mL); Vista UDS pH Range 5
== END ==
PROVIDERS: Family Provider Family Medicine; PCP Family Medicine; Referring Provider Anesthesiology Pain Medicine; Visit Provider Anesthesiology Pain Medicine
DX: F11.20 Opioid dependence, uncomplicated (principal)
CPT/HCPCS: 80307

== ENCOUNTER 2018-11-22 10:24 | Outpatient (RCR) | payer MEDICARE, OTHER, SELFPAY | END 2018-11-22 23:59 | LOC: DC 10:24 | PROVIDERS: Family Provider Family Medicine; PCP Family Medicine; Visit Provider Anesthesiology Pain Medicine | DX: E11.9 Type 2 diabetes mellitus without complications (principal); Z71.3 Dietary counseling and surveillance | CPT/HCPCS: 97803 ==

== ENCOUNTER 2018-12-05 13:57 | Outpatient (RCR) | payer MEDICARE, OTHER, SELFPAY | END 2018-12-23 23:59 | LOC: DC 13:57 | PROVIDERS: Family Provider Family Medicine; PCP Family Medicine; Visit Provider Anesthesiology Pain Medicine | DX: E11.9 Type 2 diabetes mellitus without complications (principal); Z71.3 Dietary counseling and surveillance | CPT/HCPCS: 97803 ==

== ENCOUNTER 2018-12-08 09:30 | Outpatient (RCR) | payer MEDICARE, OTHER, SELFPAY ==
--- NOTE | 2018-10-12 12:48 | HP.PTEVAL_ITS ---
Patient's Visit Information HANS GLASS is a 78 year old M referred to Physical Therapy by Jazmyn Rodriguez MD with a diagnosis of Unsteady gait. Date of Evaluation: 10/12/18 Physical Therapist: Parker Teran DPT, OCS, CSCS - Visit Plan Frequency: 2x /Week Duration: 4-6 Weeks Plan: Pt to get back to LE strength ex in gym adn to use cane to walk(he is getting one). Neurocom balance assessment. then likely 2x/week x 4 weeks to teach balance exercises and ankle strength per results of test emphasizing function on steps and weight shifting. Progress to I program. HS and gastroc stretches. - Subjective Findings: Found cyst on L3 that doctor may burst. Has degeneration in lower lumbar. Had 5 bulging discs according to MRI. Had injection 2+ weeks ago. Did not bust cyst yet. Pain is 3/10 on fet in back of both legs and LB, comfortable sitting. Also saw heart doctor since last therapy due to SOB, had stress test adn EKG and they were good. Walking in [place] yesterday and walked 3 blocks without SOB and back got sore when he walked. Told doctor he was out cutting grass and got off mower to pick stuff up and stepped in a hole and fell sideways. Did not get hurt . Tried to get up and could not push self up. Scooted up to fence adn was able to climb up fence. Doctor wanted him to use cane and he ordered a walking stick. It is on order. Doctor sent to PT for balance. Fell one other time in house tripping on carpet. No dizzyness. Has neuropathy form DM type 2. Will see nutrionist at hospital. Still working at [employer], no trouble with balance there. Basic aDLs are good. Has to be careful. Works out at usually but not lately since injections. Knows the leg exercises from last therapy appointment. Will be more consistent. - Pain LBP Pain Intensity (Out of 10): 0 Comment: o at rest - Objective Walks with R trendelenberg adn wide DANTE, no push off at ankles, unable to heel or toe raise. Safe on firm surface without AD. VOR walking is wobbly. Transfers are I. steps require 2 rails to descend adn one to ascend, no ankle involvement on steps. strength at ankles 4-/5 but not enough to move body, 4+ knee flex adn ext adn 4/5 hip abd, flexion, 4- ext. Tightness present in gastroc and HS. reflexes 1/3 patella and achilles B. Sensation seems at deficit to gross light touch mid calf down to feet. Coordination to reciprocal toe adn heel tap is poor. - Balance Scores Functional Gait Assessment Score: 21 % Disability: 30.0000 CATSIB Score (Max score 120 seconds): 95 - Goals Goal 1:: Neurocom test adn give results. 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 Goal Time Frame: 4-6 Weeks - Rehabilitation Potential Physical Therapy Diagnosis: imbalance from neuroapathy and poor management. Rehabilitation Potential: Fair - Anticipated Interventions Patient/Client Instruction: Educate patient on: Condition, Plan of Care For the Purpose of:: To improve muscle performance and motor function, To improve ability of physical actions for home/community/work/leisure, To improve gait and locomotor functions Therapeutic Exercise to Include: Strength training, Balance training, Flexibilty training, Gait and locomotor training For the Purpose of:: To improve muscle performance and motor function, To improve ability of physical actions for home/community/work/leisure, To improve gait and locomotor functions, To improve balance Thank you for the opportunity to evaluate your patient. For Medicare and Medicare HMO plans, please review the plan of care and approve it. It will need to be FAXED BACK to us at [phone] for Medicare purposes. For Medicare only, by signing this I certify the plan of care. Please let me know if there are questions or concerns regarding this plan of care. Physician Signature: Date:
--- NOTE | 2018-10-20 14:48 | HP.PTCOM ---
PT Communication Note 10/20/[address] Jazmyn Rodriguez MD , Thank you for the referral of [facility] to [facility]. I have enclosed the results for your review. In summation, he scored low on [place] and backward weight shifting on the Limits of Stability Test. Sensory Organization Test showed deficits in the vestibular systems ability to keep postural control With these results in mind, I plan to see him 2x/week for 4 weeks for balance exercises to address the above and ankle strengthening. Please do not hesitate to call me with questions. Sincerely, KORY MarinoT, OCS, CSCS Contact Information
--- NOTE | 2018-11-15 10:25 | HP.PTREVAL_ITS ---
Jazmyn Rodriguez MD, It has been my pleasure to treat HANS GLASS over the last 10 visits for Unsteady gait. Please see the progress note below for an update on the physical therapy plan of care! Subjective: Doing OK with exercising. Works on ankles at home. Did machines in gym 3-4 days week in gym. Balance feels improving. Calf pain is much better 0/10 R and 1/10 L. Feels like he can continue ex I now and f/u with pain doctor. Objective/Function: FGA(+5). Has L trendelendenise adn some discomfort in L hip that holds him back. Leo get an injection from Jennifer soon that he hopes helps with that. steps are reciprocal with one rail. Pt better walking on firm surface but still not functionally walking on grass or swinging golf club. DOING WELL AND RECOMMENDED CONTINUING PT FOR FUNCTIONAL BALANCE AND PT TO COTNINUE ANKLE EX AND BALANCE AT HOME AND GYM EX IN GYM. Plan Plan: 2X/WEEK FOR 3-4 WEEKS FOR FUNCTIONAL BALANCE TO INCLUDE SWINGING GOLF CLUB, WALKING [place], AND FUCNTIONAL BALANCE EX. PT CAN DO CURRENT EX HIMSELF AT HOME. See goals which are appropriate, new goal set and fair prognosis. Pt to see Jennifer regarding hip pain in 2 weeks. Goals Goal 1:: Neurocom test adn give results. Goal Time Frame: 2-4 Weeks Goal Progress: Goal Met Goal 2:: Pt score 25/30 on FGa to diminish fall risk Goal Time Frame: 4-6 Weeks Goal Progress: Goal Met Goal 3:: Pt comfortable scheduling travel with balance Goal Time Frame: 4-6 Weeks Goal Progress: Progressing, AILEEN 2 weeks. Goal 4:: Pt can walk in grass and swing golf club without feeling LOB Goal Time Frame: 4-6 Weeks Goal Progress: NOT MET, APPROPRIATE. 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 Goal Time Frame: 4-6 Weeks Goal Progress: Goal Met Goal 6:: WALK [place] WITHOUT EVIDENCE OF IMBALANCE. Goal Time Frame: 2-4 Weeks Goal Progress: NEW GOAL Anticipated Interventions Patient/Client Instruction: Educate patient on: Condition, Plan of Care For the Purpose of:: To improve muscle performance and motor function, To improve ability of physical actions for home/community/work/leisure, To improve gait and locomotor functions Therapeutic Exercise to Include: Strength training, Balance training, Flexibilty training, Gait and locomotor training For the Purpose of:: To improve muscle performance and motor function, To improve ability of physical actions for home/community/work/leisure, To improve gait and locomotor functions, To improve balance Please do not hesitate to contact me at [phone] by phone or if you have questions or concerns regarding this new plan of care! Sincerely, Parker Teran, DPT, OCS, CSCS
--- NOTE | 2018-12-08 10:20 | HP.PTDCSUM_ITS ---
HP - PT D/C Summary It has been my pleasure to treat HANS GLASS under orders from Jazmyn Rodriguez MD, for the diagnosis of Unsteady gait for a total of 15 visit(s). Discharge Date: 12/08/18 Please see the following information for a summary of their discharge status. - Subjective Subjective: Pt reported that he is feeling a little better with balance and ankle strength but is most limited by back pain. Injection scheduled for Tuesday, although the first two haven't done anything to help. Also have been trying CBD/hemp oil. - Pain LBP Pain Intensity (Out of 10): Unrated - Overall Improvement % Improvement: 50 - Objective Objective/Function: Tolerated all of the above exercises well. Less assist with upper body on rocker board. - Goals Goal 1:: Neurocom test adn give results. Goal Progress: Goal Met Goal 2:: Pt score 25/30 on FGa to diminish fall risk Goal Progress: Goal Met Goal 3:: Pt comfortable scheduling travel with balance Goal Progress: Progressing, AILEEN 2 weeks. Goal 4:: Pt can walk in grass and swing golf club without feeling LOB Goal Progress: NOT MET, APPROPRIATE. 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 Goal Progress: Goal Met Goal 6:: WALK [place] WITHOUT EVIDENCE OF IMBALANCE. Goal Progress: NEW GOAL - Plan Plan: Re-check with Parker at 1000. - D/C Information Discharge Comments: pT READY TO [place] ON HIS OWN ADN ANXIOUS TO SEE IF NEXT WEEKS BACK TREATMENT AT PAIN MANAGEMENT IS HELPFUL. If there are questions or concerns regarding this patient's physical therapy, please feel free to call me at [phone]. Thank you for the referral of this patient. Sincerely, Parker Teran, DPT, OCS, CSCS
== END 2018-12-08 19:00 | disposition home or self-care (01) ==
LOC: PT 09:30
PROVIDERS: Family Provider Family Medicine; PCP Family Medicine; Referring Provider Anesthesiology Pain Medicine; Visit Provider Anesthesiology Pain Medicine
DX: R26.81 Unsteadiness on feet (principal)
CPT/HCPCS: 97110; 97116; 97162; 97530; 97750

== ENCOUNTER 2019-01-17 13:00 | Outpatient (RCR) | payer MEDICARE, OTHER, SELFPAY | END 2019-01-22 23:59 | LOC: DC 13:00 | PROVIDERS: Family Provider Family Medicine; PCP Family Medicine; Visit Provider Anesthesiology Pain Medicine | DX: E11.9 Type 2 diabetes mellitus without complications (principal); Z71.3 Dietary counseling and surveillance | CPT/HCPCS: 97803; G0108 ==

== ENCOUNTER 2019-02-12 08:18 | Outpatient (RCR) | payer MEDICARE, OTHER, SELFPAY ==
[2019-02-12 09:35] LABS: International Normalized Ratio 1.1; Prothrombin Time (Protime)PT. 14.3 SECONDS (11.7-14.9)
== END 2019-02-12 18:00 | disposition home or self-care (01) ==
LOC: LAB 08:18
PROVIDERS: Family Provider Family Medicine; PCP Family Medicine; Referring Provider Internal Medicine Cardiovascular Disease; Visit Provider Internal Medicine Cardiovascular Disease
DX: I48.20 Chronic atrial fibrillation, unspecified (principal); Z79.01 Long term (current) use of anticoagulants
CPT/HCPCS: 36415; 85610

== ENCOUNTER 2019-02-27 08:56 | Outpatient (RCR) | payer MEDICARE, OTHER, SELFPAY | END 2019-02-27 19:00 | disposition home or self-care (01) | LOC: PT 08:56 | PROVIDERS: Family Provider Family Medicine; PCP Family Medicine; Referring Provider Nurse Practitioner Acute Care; Visit Provider Nurse Practitioner Acute Care | DX: M71.38 Other bursal cyst, other site (principal); M51.36 Other intervertebral disc degeneration, lumbar region ==

== ENCOUNTER 2019-03-06 09:07 | Outpatient (RCR) | payer MEDICARE, OTHER, SELFPAY ==
[2019-03-06 09:39] LABS: International Normalized Ratio 1.9; Prothrombin Time (Protime)PT. 22.1 SECONDS (11.7-14.9)
== END 2019-03-06 18:00 | disposition home or self-care (01) ==
LOC: LAB 09:07
PROVIDERS: Family Provider Family Medicine; PCP Family Medicine; Referring Provider Internal Medicine Cardiovascular Disease; Visit Provider Internal Medicine Cardiovascular Disease
DX: I48.20 Chronic atrial fibrillation, unspecified (principal); Z79.01 Long term (current) use of anticoagulants
CPT/HCPCS: 36415; 85610

== ENCOUNTER 2019-04-19 08:15 | Outpatient (RCR) | payer MEDICARE, OTHER, SELFPAY ==
[2019-03-07 09:54] VITALS: BMI 45.0
[2019-04-19 09:38] LABS: Hematocrit 36.4 % (40-54); Hemoglobin 11.7 g/dL (13.0-16.5); Mean Corp Hgb Conc 32.1 g/dL (32-36); Mean Corpuscular Hgb 26.7 pg (27.0-32.0); Mean Corpuscular Volume 83.1 fL (80-94); Mean Platelet Vol. 9.9 fl (6.2-12.0); Platelet Count 148 K/mm3 (150-450); RBC Distribution Width CV 13.8 % (11.6-14.6); RBC Distribution Width SD 40.7 fl (35.1-43.9); Red Blood Count 4.38 M/mm3 (4.6-6.2); White Blood Count 7.2 K/mm3 (4.4-11.0)
[2019-04-19 09:49] LABS: International Normalized Ratio 2.4; Prothrombin Time (Protime)PT. 25.9 SECONDS (11.7-14.9)
[2019-04-19 10:07] LABS: AST(SGOT) 14 U/L (15-37); Alanine Aminotransfer ALT/SGPT 12 U/L (16-61); Albumin, Serum 3.4 g/dL (3.2-5.0); Alkaline Phosphatase 106 U/L (45-117); Anion Gap 8 (5-15); BUN 41 mg/dL (7-18); BUN/Creat Ratio 17.8 RATIO (10-20); Bilirubin, Direct 0.21 mg/dL (0.00-0.30); Calcium,Total 9.1 mg/dL (8.5-10.1); Chloride 106 mmol/L (98-107); Cholesterol 105 mg/dL (200); EST Glomerular Filtration Rate 30 mL/min (>60); Est Glom Filt Rate - Afr Amer 36 mL/min (>60); Globulin 3.8 g/dL (2.2-4.2); Glucose 120 mg/dL (74-106); High Density Lipoprotein 42 mg/dL; Potassium 3.9 mmol/L (3.5-5.1); Protein, Total 7.2 g/dL (6.4-8.2); Sodium Level 139 mmol/L (136-145); Triglycerides 118 mg/dL; Very Low Density Lipoprotein 24 mg/dL (5-40)
[2019-04-19 10:54] LABS: Hemoglobin A1c 7.4 % (4.2-6.3)
== END 2019-04-19 18:00 | disposition home or self-care (01) ==
LOC: LAB 08:15
PROVIDERS: Family Provider Family Medicine; PCP Family Medicine; Referring Provider Internal Medicine Cardiovascular Disease; Visit Provider Internal Medicine Cardiovascular Disease
DX: I48.20 Chronic atrial fibrillation, unspecified (principal); Z79.01 Long term (current) use of anticoagulants; I12.9 Hypertensive chronic kidney disease with stage 1 through stage 4 chronic kidney disease, or unspecified chronic kidney disease; N18.4 Chronic kidney disease, stage 4 (severe); E11.9 Type 2 diabetes mellitus without complications
CPT/HCPCS: 80048; 80061; 80076; 83036; 85027; 85610

== ENCOUNTER 2019-06-12 09:11 | Outpatient (RCR) | payer MEDICARE, OTHER, SELFPAY ==
[2019-03-07 09:54] VITALS: BMI 45.0
[2019-05-04 14:15] VITALS: BMI 45.0
[2019-05-29 14:29] LABS: International Normalized Ratio 1.7; Prothrombin Time (Protime)PT. 19.8 SECONDS (11.7-14.9)
[2019-05-29 17:30] LABS: BNP,B-Type NATRIURETIC PEPTIDE 244.7 pg/mL (0-100)
[2019-05-29 17:47] LABS: Anion Gap 6 (5-15); BUN 39 mg/dL (7-18); BUN/Creat Ratio 16.7 RATIO (10-20); Calcium,Total 9.4 mg/dL (8.5-10.1); Chloride 109 mmol/L (98-107); Creatinine, Serum 2.34 mg/dL (0.70-1.30); EST Glomerular Filtration Rate 29 mL/min (>60); Est Glom Filt Rate - Afr Amer 35 mL/min (>60); Glucose 107 mg/dL (74-106); Potassium 3.9 mmol/L (3.5-5.1); Sodium Level 140 mmol/L (136-145)
[2019-06-12 09:55] LABS: International Normalized Ratio 1.9; Prothrombin Time (Protime)PT. 21.9 SECONDS (11.7-14.9)
== END 2019-06-12 18:00 | disposition home or self-care (01) ==
LOC: LAB 09:11
PROVIDERS: Family Provider Family Medicine; PCP Family Medicine; Referring Provider Internal Medicine Cardiovascular Disease; Visit Provider Internal Medicine Cardiovascular Disease
DX: I48.20 Chronic atrial fibrillation, unspecified (principal); Z79.01 Long term (current) use of anticoagulants; R06.00 Dyspnea, unspecified
CPT/HCPCS: 36415; 80048; 83880; 85610

== ENCOUNTER 2019-07-03 09:08 | Outpatient (RCR) | payer MEDICARE, OTHER, SELFPAY ==
[2019-05-29 15:10] VITALS: BMI 44.8
[2019-07-03 09:42] LABS: International Normalized Ratio 2.1; Prothrombin Time (Protime)PT. 23.3 SECONDS (11.7-14.9)
== END 2019-07-03 18:00 | disposition home or self-care (01) ==
LOC: LAB 09:08
PROVIDERS: Family Provider Family Medicine; PCP Family Medicine; Referring Provider Internal Medicine Cardiovascular Disease; Visit Provider Internal Medicine Cardiovascular Disease
DX: I48.20 Chronic atrial fibrillation, unspecified (principal); Z79.01 Long term (current) use of anticoagulants
CPT/HCPCS: 36415; 85610

== ENCOUNTER 2019-07-04 14:31 | Outpatient (RCR) | payer MEDICARE, OTHER, SELFPAY ==
[2019-05-04 14:15] VITALS: BMI 45.0
[2019-05-29 15:10] VITALS: BMI 44.8
== END 2019-07-04 23:59 | disposition home or self-care (01) ==
LOC: DC 14:31
PROVIDERS: Family Provider Family Medicine; PCP Family Medicine; Referring Provider Anesthesiology Pain Medicine; Visit Provider Anesthesiology Pain Medicine
DX: Z71.3 Dietary counseling and surveillance (principal); E11.9 Type 2 diabetes mellitus without complications
CPT/HCPCS: G0108

== ENCOUNTER → 2019-07-12 15:15 | Outpatient (CLI) | payer MEDICARE, OTHER, SELFPAY ==
[2019-05-29 15:10] VITALS: BMI 44.8
[2019-07-12 16:03] LABS: Absolute Lymphocyte Count 1.44 X10^3/uL (0.83-4.51); Absolute Neutrophil Count 5.2 X10^3/uL (2.0-7.7); Basophil# 0.06 X10^3/uL; Basophil% 0.8 % (0-1); Eosinophils% 3.9 % (0-5); Hematocrit 39.9 % (40-54); Hemoglobin 12.7 g/dL (13.0-16.5); Lymphocyte # 1.44 X10^3/ul (4.0); Lymphocyte % 18.8 % (19-41); Mean Corp Hgb Conc 31.8 g/dL (32-36); Mean Corpuscular Hgb 24.6 pg (27.0-32.0); Mean Corpuscular Volume 77.2 fL (80-94); Mean Platelet Vol. 9.8 fl (6.2-12.0); Monocyte# 0.65 X10^3/uL; Monocyte% 8.5 % (0-10); NRBC Flagged by Analyzer 0 % (0-5); Neutrophil # 5.18 X10^3/uL (2.7-7.7); Neutrophil % 67.5 % (47-70); Platelet Count 207 K/mm3 (150-450); RBC Distribution Width CV 13.8 % (11.6-14.6); RBC Distribution Width SD 38.5 fl (35.1-43.9); Red Blood Count 5.17 M/mm3 (4.6-6.2); White Blood Count 7.7 K/mm3 (4.4-11.0)
[2019-07-12 16:50] LABS: Erythrocyte Sedimentation Rate 55 mm/hr (0-20)
[2019-07-12 17:03] LABS: CRP < 2.90 mg/L (0.0-3.0)
== END ==
PROVIDERS: PCP Family Medicine; Referring Provider Physician Assistant; Visit Provider Physician Assistant
DX: I10 Essential (primary) hypertension (principal); M17.0 Bilateral primary osteoarthritis of knee; Z96.653 Presence of artificial knee joint, bilateral
CPT/HCPCS: 36415; 85025; 85652; 86140

== ENCOUNTER 2019-08-29 13:54 | Outpatient (RCR) | payer MEDICARE, OTHER, SELFPAY ==
[2019-05-29 15:10] VITALS: BMI 44.8
[2019-08-29 11:18] VITALS: BMI 41.6
[2019-08-29 14:58] LABS: International Normalized Ratio 2.4; Prothrombin Time (Protime)PT. 25.8 SECONDS (11.7-14.9)
== END 2019-08-29 18:00 | disposition home or self-care (01) ==
LOC: LAB 13:54
PROVIDERS: Family Provider Family Medicine; PCP Family Medicine; Referring Provider Internal Medicine Cardiovascular Disease; Visit Provider Internal Medicine Cardiovascular Disease
DX: I48.20 Chronic atrial fibrillation, unspecified (principal); Z79.01 Long term (current) use of anticoagulants
CPT/HCPCS: 36415; 85610

== ENCOUNTER 2019-10-01 14:00 | Outpatient (RCR) | payer MEDICARE, OTHER, SELFPAY ==
[2019-05-29 15:10] VITALS: BMI 44.8
--- NOTE | 2019-07-18 11:37 | HP.PTEVAL ---
Patient's Visit Information HANS GLASS is a 79 year old M referred to Physical Therapy by Gigi Ellsworth PA-C with a diagnosis of Presence of artificail knee joint.. Date of Evaluation: 07/18/19 Physical Therapist: Parker Teran, DPT, OCS, CSCS - Visit Plan Frequency: 2x /Week Duration: 4-6 Weeks Plan: 2x/week for 4-6 weeks for: 1. rollotu and stretch ITB, quads, HS, gastroc R LE and teach for HEP, leg pull. 2. strengthen R quad and hip stabs via HEP and machines adn teach for I to tolerance. 3. MH and ES if needed for pain. - Subjective Subjective: Had back surgery last year and its doing OK. R knee has started hurting, he has history of TKA and has seen 2 orthots who says it is looking good. Went to [facility] in April fro a couple weeks and got some SOB, saw lung doctor and said lungs were perfect. Saw Dr. ojeda and heart sounded good. Had blood test and it showed water around heart...gave double water pill. Went back to gym and back to [facility] doing OK and felt great even at [employer] (with scooter). Came home a week later and L knee started hurting, iced and felt better but jumped to L knee. Hit L shoulder at [employer] and got some bruising and saw doctor who said it doesn't have anything to do with knees. B knees R>L feels swollen. Iced for a few days and did not get better. went to ortho then and says integrity is fine. Had blood work for infection but it was good. Sent for therapy. Couldn't walk well to work at [employer] and took some days off. Currently R knee hurts today at 4/10 down from 8/10. L knee does not currently hurt nor has it in a month. Has been using heat on R knee ih has helped him sleep although it wakes him up at 4 am. Has bruise on R knee but has not fallen or twisted it. [employer] is closed due to shipman virus. HP workout interrupted due to knee pain. Using cane to get around for a week as he fell last week but did not hit knee. R knee buckled. - Pain R knee Pain Intensity (Out of 10): 2 Pain Intensity Range: 0, 8 - Objective R antalgia and trendelenberg in gait which si slightly better with cane instructed to use in L. Transfers I with UE bed and chair. Steps utilizing L only due to R knee pain but better today than it has been, requires UE. Bruising present R VMO area mildly with four uniquenoticeable variations throughout the bruise(bites?). Knee AROM L 0-105 adn R 0-108. Patella moves with moderate deficits B and no pain. Hip aROM 2 degrees ext B, 24 abd, 100 flexion, no pain. ankles to 0 Df and WFL AROM. Tightness max in HS with -40 90/90 test, quads max tight, hip flexors max tight. Gastroc mod tight. Strength in hips 3 R hip abd/ext adnd 3+ L. flexion 4- B. knee strength quad 4-R and 4+ , HS 4+ B. Ankles strength 4/5 B, hard to do heel raises. 1/3 B patella and achilles tendon. Sensation in LE diminished to gross light touch B lateral knees and distally in ankles and feet. Coordination to reciprocal toe tap is min deficits, neuropathy. SOB after 500 feet of walking adn four stairs mildly and recovers quickly. - Balance Scores Functional Gait Assessment Score: 22 % Disability: 26.6700 - Goals Goal 1:: Patietn report a 80% improvement in R knee pain to 1/10 at worst. Goal Time Frame: 4-6 Weeks Goal 2:: Patient ambulate with decreasing R trendelnberg Goal Time Frame: 4-6 Weeks Goal 3:: I approp HEP for stretching and strength LE Goal Time Frame: 4-6 Weeks Goal 4:: Sleep through night without waking. Goal Time Frame: 4-6 Weeks - Rehabilitation Potential Physical Therapy Diagnosis: R knee pain. Rehabilitation Potential: Fair - Anticipated Interventions Patient/Client Instruction: Educate patient on: Condition, Plan of Care For the Purpose of:: To decrease pain, To increase ROM, To improve muscle performance and motor function, To increase tolerance to activity/condition/position Therapeutic Exercise to Include: Strength training, Flexibilty training, Gait and locomotor training, Passive ROM, Active ROM For the Purpose of:: To decrease pain, To increase ROM, To improve muscle performance and motor function, To increase tolerance to activity/condition/position, To improve ability of physical actions for home/community/work/leisure Manual Therapy Techniques to Include: Mobilization, Passive ROM, Soft tissue mobilization For the Purpose of:: To decrease pain, To improve muscle performance and motor function, To increase tolerance to activity/condition/position TENS: Yes Thermo therapy (hot pack): Yes For the Purpose of:: To decrease pain Thank you for the opportunity to evaluate your patient. For Medicare and Medicare HMO plans, please review the plan of care and approve it. It will need to be FAXED BACK to us at [phone] for Medicare purposes. For Medicare only, by signing this I certify the plan of care. Please let me know if there are questions or concerns regarding this plan of care. Physician Signature: Date:
--- NOTE | 2019-08-15 14:18 | HP.PTREVAL_ITS ---
Gigi Ellsworth PA-C, It has been my pleasure to treat HANS GLASS over the last 4 visits for Presence of artificail knee joint.. Please see the progress note below for an update on the physical therapy plan of care! Subjective: Different pain. The initial pain is gone, the pain over the scab where he fell still hurts where he fell on the tub, R leg feeling better. Overall pain is getting better each day. Fell last night adn not sure why. Feels like legs just give out. Was using wh walker when he fell. Will get an ex bike raghav Yu. May get that today. F/U at doctor office is 09/05. Dr. Treviño is family doctor and knows about spot on knee that is swollen and hurts. Objective/Function: R knee ext:17# L:60#. hip flexion R: 23L:40. DF R: 40#L:44#. Overall walks with R trendelenberg adn R knee seems to give way without walker 2x in a 100 foot walk today corrected by patient. R leg very weak on steps and requires B UE to aaccomplish with R LE. HS and gastrocs tight B. reflexes patella 0 R and 2 L. Has blood blister and nodule on medial knee which has obvious fluid in it and is slightly red about an inch circular. PT does not have a temperature and feels good outside of some improving pain in this nodule medial R knee. Weakness in R LE giving out without pain and poor confidence is holding him back more now than pain whcih is much improved. OVERALL SIGNIFICANTLY BETTER WITH PAIN BUT SMALL NODULE MEDIAL KNEE IS SUSPICIOUS FOR INFECTION AND VERY WEAK POSSIBLY NEUROLOGICAL IN r HIP FLEXION AND KNEE EXTENSORS. PT IS TO CONTACT DOCTOR IF RED MEDIAL KNEE GETS WORSE OR GETS A TEMPERATURE AND ABOUT HIS WAKNESS WE PURSUE FURTHER PT PLANS. Plan Plan: 2-3X/WEEK FOR 3 WEEKS FOR STRENGTHENING IN GYM OF B LE R>L WITHOUT INCRFEASING KNEE PAIN. EMPHASIZE MACHINES TOLERATED TOWARD I FOR WHEN GYM OPENS BACK UP. MONITOR NODULE R MEDIAL KNEE AND MONITOR R KNEE STRENGTH WELL PATIENT GETTING RECUMBENT BIKE FOR HOME AND WILL START THAT . FAIR PROGNOSIS TOWARD GOALS. Goals Goal 1:: Patietn report a 80% improvement in R knee pain to 1/10 at worst. Goal Time Frame: 4-6 Weeks Goal Progress: Goal Met Goal 2:: Patient ambulate with decreasing R trendelnberg Goal Time Frame: 4-6 Weeks Goal Progress: Not Progressing, approp Goal 3:: I approp HEP for stretching and strength LE Goal Time Frame: 4-6 Weeks Goal Progress: rom, not strength yet Goal 4:: Sleep through night without waking. Goal Time Frame: 4-6 Weeks Goal Progress: Goal Met Goal 5:: increase strength R hip flexion to 75% of L and R knee ext 75% of L to help with mobility. Goal Time Frame: 2-4 Weeks Goal Progress: NEW GOAL Goal 6:: FGA to diminish fall risk. Goal Time Frame: 2-4 Weeks Goal Progress: new goal Anticipated Interventions Patient/Client Instruction: Educate patient on: Condition, Plan of Care For the Purpose of:: To decrease pain, To increase ROM, To improve muscle performance and motor function, To increase tolerance to activ ity/condition/position Therapeutic Exercise to Include: Strength training, Flexibilty training, Gait and locomotor training, Passive ROM, Active ROM For the Purpose of:: To decrease pain, To increase ROM, To improve muscle performance and motor function, To increase tolerance to activity/condition/position, To improve ability of physical actions for home/community/work/leisure Manual Therapy Techniques to Include: Mobilization, Passive ROM, Soft tissue mobilization For the Purpose of:: To decrease pain, To improve muscle performance and motor function, To increase tolerance to activity/condition/position TENS: Yes Thermo therapy (hot pack): Yes For the Purpose of:: To decrease pain, To decrease swelling/inflammation Other: himavat/hematoma Please do not hesitate to contact me at [phone] by phone or if you have questions or concerns regarding this new plan of care! Sincerely, Parker Teran, DPT, OCS, CSCS
--- NOTE | 2019-09-12 14:02 | HP.PTREVAL ---
Gigi Ellsworth PA-C, It has been my pleasure to treat HANS GLASS over the last 12 visits for Presence of artificail knee joint.. Please see the progress note below for an update on the physical therapy plan of care! Subjective: Saw orthopedic surgeon Rich and x rayed knee and is OK. Will have MRI for knee. Hans thinks he is getting stronger. MRI will be the 8th adn thinks he has a torn muscle in adductors as he is still sore medial leg. Sees ortho surgeon at [facility] for knee tomorrow due to soreness and weakness. Pain in leg persists at 3/10 medial R thigh to medial knee adn medial wagner. No back pain. using whwalker to get around for safety due to falls. Feels like R LE is getting stronger sowly. Pt tp call after doc visit tomorrow to schedule as needed. Objective/Function: R quad still very weakand unable to hold it in full extension or straighten it in siting more than to -40 ext. L knee is 4+/5, R knee ext 2+. B knee flexion 4/5. hip flexionand adductiona dn abduction symmetrical at 4/5 sitting. Pain and tender medial R knee and thigh. Walks with wh walker with stiff R LE needing to keep it straight with Wb for confidence to hold him up. Overall the weakness in R quad is concerning adn patient to have an MRI. IT seems L4 related to me with soreness medial thigh and weakness without pain in knee ext R. Pt to have MRI and will see other doctor for second opinion. Appropriate to cotyvonneue to strengthen in gym until I but questionable if this will get him where he wants to be depending on weakness in R LE. Pain improving, weakness is not. Plan Plan: 3x/week for 2-3 weeks to cotninue LE and core adn postural strength in gym until I. Pt to work out further developments with doctor. Goals Goal 1:: Patietn report a 80% improvement in R knee pain to 1/10 at worst. Goal Time Frame: 4-6 Weeks Goal Progress: Not Progressing Goal 2:: Patient ambulate with decreasing R trendelnberg Goal Time Frame: 4-6 Weeks Goal Progress: Not Progressing Goal 3:: I approp HEP for stretching and strength LE Goal Time Frame: 4-6 Weeks Goal Progress: not yet in gym, approp Goal 4:: Sleep through night without waking. Goal Time Frame: 4-6 Weeks Goal Progress: Goal Met Goal 5:: increase strength R hip flexion to 75% of L and R knee ext 75% of L to help with mobility. Goal Time Frame: 2-4 Weeks Goal Progress: Not Progressing Goal 6:: FGA to diminish fall risk. Goal Time Frame: 2-4 Weeks Goal Progress: R leg not holding up. Anticipated Interventions Patient/Client Instruction: Educate patient on: Condition, Plan of Care For the Purpose of:: To decrease pain, To increase ROM, To improve muscle performance and motor function, To increase tolerance to activity/condition/position Therapeutic Exercise to Include: Strength training, Flexibilty training, Gait and locomotor training, Passive ROM, Active ROM For the Purpose of:: To decrease pain, To increase ROM, To improve muscle performance and motor function, To increase tolerance to activity/condition/position, To improve ability of physical actions for home/community/work/leisure Manual Therapy Techniques to Include: Mobilization, Passive ROM, Soft tissue mobilization For the Purpose of:: To decrease pain, To improve muscle performance and motor function, To increase tolerance to activity/condition/position TENS: Yes Thermo therapy (hot pack): Yes For the Purpose of:: To decrease pain, To decrease swelling/inflammation Other: himavat/hematoma Please do not hesitate to contact me at [phone] by phone or if you have questions or concerns regarding this new plan of care! Sincerely, Parker Teran, DPT, OCS, CSCS
--- NOTE | 2019-10-01 15:05 | HP.PTREVAL ---
Gigi Ellsworth PA-C, It has been my pleasure to treat HANS GLASS over the last 17 visits for Presence of artificail knee joint.. Please see the progress note below for an update on the physical therapy plan of care! Subjective: 30 minutes on ex bike at home. 2x/day. Bump on knee is gone. still numb medial side of knee. Only intermittent soreness in medial knee. Had MRI today on R knee. No results yet. Strength is coming along. Able to lift R knee into marching easier. Pt feels good about progress. 65% better overall. Using wh walker at all times now. Doing leg press adn hip machines in gym adn [employer]. Kink in LB today from MRI. Objective/Function: 13# R quad and 48 L quad, not [id number] quad strength. Still R trendelenberg sightly, hesitant with R LE WB and on turns. Still recommending use of wh walker due to weakness in R LE> Plan Plan: hold until doctor follow up. Pt to get results of MRI and see specialist in [place]. Contact me for ext step after that. Overall not improving in strength adn appears to be a nerve /back issue and recommend nerve conduction test from this therapist point of view. Without other interventions, pt could possibly benefit from reutrning for more aggressive strength adn FES to R quad. Goals Goal 1:: Patietn report a 80% improvement in R knee pain to 1/10 at worst. Goal Time Frame: 4-6 Weeks Goal Progress: Progressing Goal 2:: Patient ambulate with decreasing R trendelnberg Goal Time Frame: 4-6 Weeks Goal Progress: Not Progressing Goal 3:: I approp HEP for stretching and strength LE Goal Time Frame: 4-6 Weeks Goal Progress: gym and home bike Goal 4:: Sleep through night without waking. Goal Time Frame: 4-6 Weeks Goal Progress: Goal Met Goal 5:: increase strength R hip flexion to 75% of L and R knee ext 75% of L to help with mobility. Goal Time Frame: 2-4 Weeks Goal Progress: Not Progressing Goal 6:: FGA to diminish fall risk. Goal Time Frame: 2-4 Weeks Goal Progress: Not Progressing Anticipated Interventions Patient/Client Instruction: Educate patient on: Condition, Plan of Care For the Purpose of:: To decrease pain, To increase ROM, To improve muscle performance and motor function, To increase tolerance to activity/condition/position Therapeutic Exercise to Include: Strength training, Flexibilty training, Gait and locomotor training, Passive ROM, Active ROM For the Purpose of:: To decrease pain, To increase ROM, To improve muscle performance and motor function, To increase tolerance to activity/condition/position, To improve ability of physical actions for home/community/work/leisure Manual Therapy Techniques to Include: Mobilization, Passive ROM, Soft tissue mobilization For the Purpose of:: To decrease pain, To improve muscle performance and motor function, To increase tolerance to activity/condition/position TENS: Yes Thermo therapy (hot pack): Yes For the Purpose of:: To decrease pain, To decrease swelling/inflammation Other: himavat/hematoma Please do not hesitate to contact me at [phone] by phone or if you have questions or concerns regarding this new plan of care! Sincerely, Parker Teran, DPT, OCS, CSCS
--- NOTE | 2019-12-21 14:12 | HP.PTDCNRP_ITS ---
HANS GLASS was seen in my office for initial evaluation on 07/18/19. The following Plan of Care was established for this patient: Initial Frequency: 2x /Week Initial Duration: 4-6 Weeks Patient/Client Instruction: Educate patient on: Condition, Plan of Care For the Purpose of:: To decrease pain, To increase ROM, To improve muscle performance and motor function, To increase tolerance to activity/condition/position Therapeutic Exercise to Include: Strength training, Flexibilty training, Gait and locomotor training, Passive ROM, Active ROM For the Purpose of:: To decrease pain, To increase ROM, To improve muscle perfor pelon and motor function, To increase tolerance to activity/condition/position, To improve ability of physical actions for home/community/work/leisure Manual Therapy Techniques to Include: Mobilization, Passive ROM, Soft tissue mobilization For the Purpose of:: To decrease pain, To improve muscle performance and motor function, To increase tolerance to activity/condition/position TENS: Yes Thermo therapy (hot pack): Yes For the Purpose of:: To decrease pain, To decrease swelling/inflammation Other: himavat/hematoma This patient was last seen in our office 10/11/19. Pertinent comments regarding their Physical therapy will appear below: Pt seen 17 visits with a 65% improvement but was still struggling with leg weakness. At last check, he was going for nerve conduction test adn would continue his home ex program I. He was to call in October after NCT if he needed to return. He did not and I will discontinue him from PT. At this point I will be discontinuing this patient from physical therapy. I would be happy to see this patient again in the future if found appropriate by the physician. Thank you! Parker Teran, DPT, OCS, CSCS
== END 2019-10-01 19:00 | disposition home or self-care (01) ==
LOC: PT 14:00
PROVIDERS: PCP Family Medicine; Referring Provider Physician Assistant; Visit Provider Physician Assistant
DX: Z96.653 Presence of artificial knee joint, bilateral (principal)
CPT/HCPCS: 97110; 97140; 97162; 97164; 97530

== ENCOUNTER → 2019-10-23 11:50 | Outpatient (CLI) | payer MEDICARE, OTHER, SELFPAY ==
[2019-10-23 15:52] LABS: International Normalized Ratio 1.9; Prothrombin Time (Protime)PT. 21.2 SECONDS (11.7-14.9)
[2019-10-23 16:07] LABS: Hemoglobin A1c 5.3 % (3.8-5.6)
[2019-10-23 16:10] LABS: T4 Total, Thyroxin 7.7 ug/dL (4.5-12.1); Thyroid Stim Hormone (TSH) 1.24 uIU/mL (0.358-3.74)
== END ==
PROVIDERS: PCP Family Medicine; Visit Provider Family Medicine
DX: E11.9 Type 2 diabetes mellitus without complications (principal); E03.9 Hypothyroidism, unspecified; I48.20 Chronic atrial fibrillation, unspecified; Z79.01 Long term (current) use of anticoagulants
CPT/HCPCS: 36415; 83036; 84436; 84443; 85610

== ENCOUNTER 2019-11-26 07:31 | Outpatient (RCR) | payer MEDICARE, OTHER, SELFPAY ==
[2019-11-02 13:40] VITALS: BMI 41.6
[2019-11-26 08:12] LABS: Absolute Neutrophil Count 3.3 X10^3/uL (2.0-7.7); Basophil# 0.05 X10^3/uL; Eosinophil# 0.29 X10^3/uL; Eosinophils% 5.5 % (0-5); Hemoglobin 10.7 g/dL (13.0-16.5); Lymphocyte % 20.9 % (19-41); Mean Corp Hgb Conc 30.6 g/dL (32-36); Mean Corpuscular Hgb 24.8 pg (27.0-32.0); Mean Corpuscular Volume 81.2 fL (80-94); Mean Platelet Vol. 10.2 fl (6.2-12.0); Monocyte# 0.54 X10^3/uL; Monocyte% 10.3 % (0-10); NRBC Flagged by Analyzer 0 % (0-5); Neutrophil # 3.26 X10^3/uL (2.7-7.7); Neutrophil % 61.9 % (47-70); Platelet Count 159 K/mm3 (150-450); RBC Distribution Width SD 41.2 fl (35.1-43.9); Red Blood Count 4.31 M/mm3 (4.6-6.2); White Blood Count 5.3 K/mm3 (4.4-11.0)
[2019-11-26 08:27] LABS: Albumin, Serum 3.3 g/dL (3.2-5.0); BUN 45 mg/dL (7-18); BUN/Creat Ratio 18.4 RATIO (10-20); Calcium,Total 9.2 mg/dL (8.5-10.1); Chloride 110 mmol/L (98-107); Creatinine, Serum 2.44 mg/dL (0.70-1.30); EST Glomerular Filtration Rate 28 mL/min (>60); Est Glom Filt Rate - Afr Amer 33 mL/min (>60); Glucose 61 mg/dL (74-106); Phosphorus 3.6 mg/dL (2.5-4.9); Potassium 3.8 mmol/L (3.5-5.1); Sodium Level 143 mmol/L (136-145)
[2019-11-26 08:34] LABS: International Normalized Ratio 2.4; Prothrombin Time (Protime)PT. 25.4 SECONDS (11.7-14.9)
[2019-11-26 08:48] LABS: Protein, Urine (Random) 109.6 mg/dL (<11.9); Protein:Creat Ratio 3061 mg/g CRE (0-200)
== END 2019-12-24 18:00 | disposition home or self-care (01) ==
LOC: LAB 07:31
PROVIDERS: Family Provider Family Medicine; PCP Family Medicine; Referring Provider Internal Medicine Cardiovascular Disease; Visit Provider Internal Medicine Cardiovascular Disease
DX: I48.20 Chronic atrial fibrillation, unspecified (principal); Z79.01 Long term (current) use of anticoagulants
CPT/HCPCS: 36415; 80069; 82570; 83970; 84156; 85025; 85610

== ENCOUNTER 2019-12-30 20:25 | Inpatient (IN) | payer MEDICARE, OTHER, SELFPAY ==
[2019-12-20 08:32] VITALS: BMI 40.3
[2019-12-30] VITALS (10 sets, daily range): BP systolic 144–175; BP diastolic 67–129; PULSE 92–117; RESP 12–32; TEMP 36.1–36.8; O2SAT 90–95; BMI 40.3; BMI 40.8
--- NOTE | 2019-12-30 20:42 | EKG12_ITS ---
Test Reason : CHEST PAIN Blood Pressure : / mmHG Vent. Rate : 098 BPM Atrial Rate : 122 BPM P-R Int : 000 ms QRS Dur : 100 ms QT Int : 338 ms P-R-T Axes : 000 -20 124 degrees QTc Int : 431 ms Atrial fibrillation with premature ventricular or aberrantly conducted complexes Inferior infarct , age undetermined, cannot be excluded Marked ST abnormality, possible anterior-lateral subendocardial injury Abnormal ECG Confirmed by PROMISE GOMEZ, LAST ([id number]), acquisition editor GREGORY GARCIA ([id number]) on 01/02/2020 9:48:59 AM Referred By: RICHAR Confirmed By:LAST VIRGEN MD
--- NOTE | 2019-12-30 20:43 | ED.VIS.CHEST ---
History of Present Illness Chief Complaint: Chest Pain Informant: Patient Onset: Hours - 1 Activity at onset: Rest Timing: Continuous Quality: Sharp Location: Left Chest - without radiation Current Severity: 5/10 Maximum Severity: 5/10 Worsened By: Nothing. Not Worsened By: Movement of Arm, Movement of Torso, Breathing Relieved By: Nothing. Not Relieved By: NTG Associated Symptoms: Nausea, Diaphoresis, Dyspnea. Negative for: Vomiting, Cough, Fever, Lightheadedness, Palpitations Narrative: Patient has been having symptoms like this for the past week off and on, symptoms are relatively brief. Saw his doctor and is scheduled for an outpatient stress test as a result. Today the discomfort came and has been there for over an hour without resolution even when trying a nitroglycerin, hence coming to the emergency department. - Past Medical History (1) Atherosclerotic heart disease of [place] coronary artery without angina pectoris Status: Chronic (2) Essential (primary) hypertension Status: Chronic (3) Hyperlipidemia Status: Chronic (4) Longstanding persistent atrial fibrillation Status: Chronic (5) Type 2 diabetes mellitus Status: Chronic (6) History of coronary artery stent placement Status: Chronic Comment: BMS to Mid RCA w/ 3.5 x 24 mm Fire Sprinkler Fitter Stent 04/03/2003; BMS to Distal RCA w/ 3.0 x 18 mm Fire Sprinkler Fitter Stent 06/04/2004; POBA-ISR Prox and Distal RCA 06/03/15 Past Medical History - Allergies and Home Meds Allergies/Adverse Reactions: Allergies Penicillins Adverse Reaction (Severe, Verified 12/30/19 20:27) Swelling Primary Care Physician: Masha Treviño MD [Primary Care Provider] - Doctors: Dr Boss - cardiology Surgical History: angioplasty, total knee arthroplasty Lives: Spouse/ Significant Other Smoking Status: Former smoker Review of Systems General: Reports: Sweats. Denies: Chills, Fever Eyes: Denies: Visual changes - bilaterally, Diplopia ENT: Denies: Rhinorrhea, Sore throat Cardiovascular: Reports: Chest pain. Denies: Palpitations Respiratory: Reports: Dyspnea. Denies: Cough, Sputum, Dyspnea on exertion, Orthopnea Gastrointestinal: Reports: Nausea. Denies: Abdominal pain, Vomiting, Diarrhea, Melena, Hematochezia Genitourinary: Denies: Dysuria, Hematuria, Frequency Musculoskeletal: Reports: Swelling - chronic BLE, unchanged. Denies: Neck pain, Back pain, Extremity Pain Skin: Denies: Rash, Wounds Neurological: Denies: Headache, Weakness, Numbness Physical Exam Vital Signs/Narrative: Vital Signs Temp Pulse Resp BP Pulse Ox 12/30/19 20:26 98.3 F 100 18 175/129 H 95 Inital Vital Signs reviewed: Yes General: Well nourished, Well developed, No Acute Distress Head: Normocephalic, Atraumatic Eyes: Perrl, EOMI ENT: Moist mucous membranes, No rhinorrhea Neck: Supple, Nontender, No lymphadenopathy, No JVD Cardiovascular: Regular rate, Regular rhythm, No murmurs Respiratory: No distress, Chest nontender, Rales - left base, Wheezing - mild expiratory Abdomen: Soft, Nontender, Nondistended, Normal bowel sounds Back: Nontender, Normal Inspection. Negative for: CVA tenderness Extremities: Nontender, Edema - 2+ BLE to knees w/ wagner discoloration c/w stasis. Negative for: Calf Tenderness Skin: Normal color, No rash, No Trauma Neurological: Alert, Oriented x3, Cranial nerves II-XII grossly intact, Normal Strength, Normal Sensation Psychological: Normal affect, Normal Mood Diagnostic/Tx/Re-eval Laboratory Tests 12/30/19 12/30/19 12/30/19 Range/Units 20:44 20:44 20:44 WBC 10.9 (4.4-11.0) K/mm3 RBC 4.45 L (4.6-6.2) M/mm3 Hgb 11.1 L (13.0-16.5) g/dL Hct 35.8 L (40-54) % MCV 80.4 (80-94) fL MCH 24.9 L (27.0-32.0) pg MCHC 31.0 L (32-36) g/dL RDW Std Deviation 44.1 H (35.1-43.9) fl RDW Coeff of Moni 15.3 H (11.6-14.6) % Plt Count 206 (150-450) K/mm3 MPV 10.4 (6.2-12.0) fl Immature Gran % (Auto) 0.600 (0.0-0.9) % Neut % (Auto) 75.1 H (47-70) % Lymph % (Auto) 13.7 L (19-41) % [place] % (Auto) 6.9 (0-10) % Eos % (Auto) 3.1 (0-5) % Baso % (Auto) 0.6 (0-1) % Absolute Neuts (auto) 8.2 H (2.0-7.7) X10^3/uL Absolute Lymphs (auto) 1.49 (0.83-4.51) X10^3/uL Nucleated RBC % 0 (0-5) % PT 20.8 H (11.7-14.9) SECONDS INR 1.9 Sodium 140 (136-145) mmol/L Potassium 3.3 L (3.5-5.1) mmol/L Chloride 107 (98-107) mmol/L Carbon Dioxide 24.0 (21.0-32.0) mmol/L Anion Gap 9 (5-15) BUN 32 H (7-18) mg/dL Creatinine 2.43 H (0.70-1.30) mg/dL Estim Creat Clear Calc 24.63 ml/min Est GFR (MDRD) Af Amer 33 L (>60) mL/min Est GFR (MDRD) Non-Af 28 L (>60) mL/min BUN/Creatinine Ratio 13.2 (10-20) RATIO Glucose 270 H (74-106) mg/dL Calcium 9.6 (8.5-10.1) mg/dL Troponin I < 0.015 (<0.045) ng/mL - Rhythm Strip Rhythm Strip: A-fib Rate: 98 Ectopy: None - EKG Initial EKG Interpretation: No Acute Injury Pattern, Atrial Fibrillation, S-T Depression - 0.5-1mm, - - no LUDY Follow-up EKG Interpretation: No Acute Injury Pattern, Atrial Fibrillation Prior: Unchanged Treatment: GI Cocktail - Resulting in worsening discomfort and hypoxemia DEBORAH Risk: Age >/= 65, >/= 3RF, H/O CAD, Severe Angina </=24 hours Score: 4 - Medical Decision Making Initially patient treated with a GI cocktail since nitroglycerin did not work. This gave him no leave, and subsequently his discomfort worsened simultaneously with his pulse ox lowering down to the 70s while on a nasal cannula. He became more dyspneic. His chest x-ray showed what appeared to be chronic fibrotic changes, although he has no known pulmonary history, despite him having Rales in his left base. His EGFR is in the 20s unfortunately, so instead of CT angiography, we will perform a plain CT of the chest. Prior to that, we placed him on a Venti mask, he did not bring his saturations out of the 80s, so he was upgraded to a nonrebreather, which also did not move him above the 80s. Therefore prior to performing CT he was placed on BiPAP. With this, he is breathing much more comfortably and his pulse ox is at 92%. Plan is for admission to ICU. CT scan appears to show bilateral airspace disease, and his BNP is only 300, indicating this is unlikely to be cardiogenic, although there is a small pleural effusion and CHF is suspected. His echo last year would support that, with normal LV systolic function and LVH, which could be causing his subtle lateral EKG abn; no old EKG is able to be visualized at this time for comparison. COVID-19 test sent given the bilateral nature/pattern, although this is thought to be less likely the cause. Also sent lactic acid and blood cultures, and treated empirically w/ Rocephin and Azithromycin in case this is infectious in origin, which is unknown at this time. Critical care time (excluding procedures): 30-74 minutes - 35 min, including time spent discussing with patient and family, discussion with consultants, arranging admission, and performing direct patient care and reevaluation at the bedside ED Disposition - Plan for ED Patient: Disposition: Acute Care [facility] Diagnosis: Left-sided chest pain, Acute respiratory failure with hypoxia, CKD (chronic kidney disease), Pulmonary edema, SIRS (systemic inflammatory response syndrome), CHF (congestive heart failure) Referrals: Masha Treviño MD [Primary Care Provider] -
--- NOTE | 2019-12-30 20:45 | RAD_ITS ---
STUDY: X-RAY CHEST REASON FOR EXAM: Male, 79 years old. Chest pain. TECHNIQUE: Frontal view of the chest COMPARISON: 05/26/15 FINDINGS: There are stable chronic increased interstitial markings in the lungs. The lungs are otherwise clear. There are no pleural effusions. There is no pneumothorax. The heart is stable in size. The visualized osseous structures are within normal limits. RAD/Chest 1 View (Portable) IMPRESSION: Stable chronic increased interstitial markings in the lungs. No pulmonary infiltrates or pleural effusions. Electronically Signed: Francisco Mckeon, at 20:59 EDT Tel , Service support ,
[2019-12-30] MEDS: Ondansetron 4 MG/2 ML Vial IV (20:51)
[2019-12-30] MEDS: Mag Hydrox/Al Hydrox/Simeth 30 ML UDC PO (20:52)
[2019-12-30 21:10] LABS: Absolute Lymphocyte Count 1.49 X10^3/uL (0.83-4.51); Absolute Neutrophil Count 8.2 X10^3/uL (2.0-7.7); Basophil# 0.06 X10^3/uL; Basophil% 0.6 % (0-1); Eosinophil# 0.34 X10^3/uL; Eosinophils% 3.1 % (0-5); Hematocrit 35.8 % (40-54); Hemoglobin 11.1 g/dL (13.0-16.5); Lymphocyte # 1.49 X10^3/ul (4.0); Lymphocyte % 13.7 % (19-41); Mean Corpuscular Hgb 24.9 pg (27.0-32.0); Mean Corpuscular Volume 80.4 fL (80-94); Mean Platelet Vol. 10.4 fl (6.2-12.0); Monocyte# 0.75 X10^3/uL; Monocyte% 6.9 % (0-10); NRBC Flagged by Analyzer 0 % (0-5); Neutrophil # 8.16 X10^3/uL (2.7-7.7); Neutrophil % 75.1 % (47-70); Platelet Count 206 K/mm3 (150-450); RBC Distribution Width CV 15.3 % (11.6-14.6); RBC Distribution Width SD 44.1 fl (35.1-43.9); Red Blood Count 4.45 M/mm3 (4.6-6.2); White Blood Count 10.9 K/mm3 (4.4-11.0)
--- NOTE | 2019-12-30 21:20 | EKG12_ITS ---
Test Reason : CHEST PAINREPEAT Blood Pressure : / mmHG Vent. Rate : 104 BPM Atrial Rate : 153 BPM P-R Int : 000 ms QRS Dur : 100 ms QT Int : 378 ms P-R-T Axes : 000 005 076 degrees QTc Int : 497 ms Atrial fibrillation with rapid ventricular response Inferior infarct , age undetermined Possible Anterior infarct , age undetermined , cannot be excluded Abnormal ECG Confirmed by PROMISE GOMEZ, LAST ([id number]), editor sound GREGORY GARCIA ([id number]) on 01/02/2020 9:43:41 AM Referred By: DONNIE Confirmed By:LAST VIRGEN MD
[2019-12-30 21:21] LABS: International Normalized Ratio 1.9; Prothrombin Time (Protime)PT. 20.8 SECONDS (11.7-14.9)
[2019-12-30 21:25] LABS: Anion Gap 9 (5-15); BUN 32 mg/dL (7-18); BUN/Creat Ratio 13.2 RATIO (10-20); Calcium,Total 9.6 mg/dL (8.5-10.1); Chloride 107 mmol/L (98-107); Creatinine, Serum 2.43 mg/dL (0.70-1.30); EST Glomerular Filtration Rate 28 mL/min (>60); Est Glom Filt Rate - Afr Amer 33 mL/min (>60); Estimated Creatinine Clearance 24.63 ml/min; Glucose 270 mg/dL (74-106); Potassium 3.3 mmol/L (3.5-5.1); Sodium Level 140 mmol/L (136-145)
--- NOTE | 2019-12-30 21:29 | CT_ITS ---
STUDY: CT CHEST WITHOUT CONTRAST REASON FOR EXAM: Male, 79 years old. LEFT CP/SOB/HYPOXEMIA. Elev creatinine of 2.43 RADIATION DOSAGE (If Supplied By Facility): CTDIvol = ( 20.15 ) mGy, DLP = ( 800.57 ) mGycm TECHNIQUE: Transaxial imaging was performed without the administration of intravenous contrast material. Individualized dose optimization techniques were used for this CT. COMPARISON: Portable chest 12/30/2019 FINDINGS: There is diffuse prominence of the interstitial markings with diffuse groundglass opacities likely representing pulmonary interstitial edema. There is associated consolidation in the dependent portion of both upper and lower lobes with air bronchograms There is a small right pleural effusion. The heart is enlarged. There is multivessel coronary artery disease. Normal mediastinum. Normal hilar regions. Normal unenhanced pulmonary arteries. Atherosclerotic changes of the aorta without evidence for aneurysm. Dorsal spine demonstrates advanced lumbar lordosis There is no demonstrated abnormality of the visualized upper abdomen. CT/Chest without Contrast IMPRESSION: Probable congestive failure with small right pleural effusion. Cannot exclude coexisting pneumonia. Electronically Signed: Nestor Corbett MD at 22:21 EDT , Service support ,
[2019-12-30 21:33] LABS: BNP,B-Type NATRIURETIC PEPTIDE 302.7 pg/mL (0-100)
[2019-12-30] MEDS: Morphine 4 MG/ML Syringe IV (21:51)
--- NOTE | 2019-12-30 22:03 | HP.PCM_ITS ---
Problem List (1) Left-sided chest pain Status: Inactive (2) Acute respiratory failure with hypoxia Status: Acute (3) CKD (chronic kidney disease) Status: Chronic (4) Pulmonary edema Status: Acute (5) SIRS (systemic inflammatory response syndrome) Status: Acute (6) CHF (congestive heart failure) Status: Acute (7) Dyspnea Status: Acute Qualifiers: Dyspnea type: dyspnea on exertion Qualified Code(s): R06.00 - Dyspnea, unsp ecified (8) Atherosclerotic heart disease of [place] coronary artery without angina pectoris Status: Chronic Qualifiers: [place] vs. transplanted heart: [place] heart Qualified Code(s): I25.10 - Atherosclerotic heart disease of [place] coronary artery without angina pectoris (9) Longstanding persistent atrial fibrillation Status: Chronic (10) History of coronary artery stent placement Status: Chronic Comment: BMS to Mid RCA w/ 3.5 x 24 mm Associate Art Director Stent 04/03/2003; BMS to Distal RCA w/ 3.0 x 18 mm Associate Art Director Stent 06/04/2004; POBA-ISR Prox and Distal RCA 06/03/15 (11) Essential (primary) hypertension Status: Chronic (12) Hyperlipidemia Status: Chronic Qualifiers: Hyperlipidemia type: pure hypercholesterolemia Qualified Code(s): E78.00 - Pure hypercholesterolemia, unspecified (13) 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 His pain when he started was 2 out of 10 in severity. Pain progressed to 8 out of 10. At the time of evaluation his pain was 8 out of 10. He took nitroglycerin at home which did not help with his pain. He describes his pain as burning sensation. His pain is nonradiating. He denied any aggravating or ameliorating factors to the pain. The pain has been off and on lasting for 5 to 10 minutes. However on the day of presentation the pain became constant. The pain started after eating. He took his sublingual nitroglycerin without any relief. He denies any nausea or vomiting. Associated for symptom is diaphoresis and pallor. At the emergency department patient developed shortness of breath. His oxygen saturation was 70% on nasal cannula. He will transition to a Venturi mask and then to nonrebreather mask and finally onto a BiPAP where his oxygen saturation became around 92%. Patient saw cardiology on 12/20/2019 at that time patient complained of episodic chest pain. His isosorbide was increased and a chemical stress test was ordered. Past Medical History Past Medical History (Chronic Problems): Chronic Problems (Last Reviewed 12/31/19 @ 00:[address] 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 Ayaan Duque MD) Atherosclerotic heart disease of [place] coronary artery without angina pectoris (Chronic) I25.10 Longstanding persistent atrial fibrillation (Chronic) I48.11 Essential (primary) hypertension (Chronic) I10 Hyperlipidemia (Chronic) E78.5 senior care (current) use of anticoagulants (Chronic) Z79.01 Type 2 diabetes mellitus (Chronic) E11.9 Hypothyroidism E03.9 Obstructive sleep apnea G47.33 Allergies Penicillins Adverse Reaction (Severe, Verified 12/30/19 20:27) Swelling Home Medications: Ambulatory Orders Medication Instructions Recorded Aspirin [Adult Low Dose Aspirin EC] 81 mg PO DAILY 07/17/15 Nitroglycerin (INPATIENT USE) 0.4 mg SUBLINGUAL Q5M PRN 07/17/15 [Nitrostat] sodium bicarbonate 650 mg tablet 650 mg PO .q day tab 07/29/17 blood sugar diagnostic See Dose Instructions .ROUTE 08/18/17 .MEDSUPPLY #20 ea insulin syringe-needle U-100 04/26 See Dose Instructions .ROUTE 10/24/17 mL 31 gauge x 15/64 .MEDSUPPLY #100 ea metoprolol succinate 100 mg 100 mg PO DAILY #90 tab 05/29/19 tablet,extended release 24 hr lovastatin 40 mg tablet 40 mg PO DAILY #90 tab 07/10/19 warfarin 5 mg tablet 5 mg PO .COMPLEX #180 tab 07/10/19 amlodipine 10 mg tablet 10 mg PO QDAY #90 tab 07/18/19 benazepril 20 mg tablet 20 mg PO QDAY #90 tab 07/18/19 furosemide 40 mg tablet 40 mg PO DAILY tab 08/29/19 levothyroxine 75 mcg tablet 75 mcg PO DAILY 09/14/19 clopidogrel 75 mg tablet 75 mg PO DAILY 12/20/19 Furosemide [Lasix] 40 mg PO MOWEFR 12/30/19 Isosorbide Mononitrate [Isosorbide 30 mg PO DAILY 12/30/19 Mononitrate ER] Spironolactone 25 mg PO MOWEFR 12/30/19 Insulin NPH Human [Humulin N (Bkc)] 28 units SUBCUT QHS 12/31/19 Insulin NPH Human [Humulin N (Bkc)] 30 units SUBCUT DAILY@0730 12/31/19 Surgical History: Surgical History (Last Reviewed 12/31/19 @ 00:[address] Ayaan Duque MD) History of coronary artery stent placement (Chronic) Onset Date: 06/03/15 Z95.5 BMS to Mid RCA w/ 3.5 x 24 mm Associate Art Director Stent 04/03/2003; BMS to Distal RCA w/ 3.0 x 18 mm Associate Art Director Stent 06/04/2004; POBA-ISR Prox and Distal RCA 06/03/15 History of back surgery Onset Date: 01/2019 Z98.890 Lumbar History of total right knee replacement (TKR) Z96.651 Surgical History: angioplasty, total knee arthroplasty Lives: Spouse/ Significant Other Smoking Status: Former smoker - *Family History Maternal Family History: Family History (Last Reviewed 12/31/19 @ 00:[address] Ayaan Duque MD) Father CAD (coronary artery disease) Embolism Mother Kidney disease Review of Systems Constitutional: Denies: Chills, Fever, Weight Change HEENT: Denies: Head Aches, Sinus Congestion, Sinus Drainage Cardiovascular: Reports: Chest Pain. Denies: Palpitations Respiratory: Reports: Shortness of Breath. Denies: Cough, Sputum production Gastrointestinal: Denies: Abdominal Pain, Nausea, Vomiting Genitourinary: Denies: Dysuria Musculoskeletal: Denies: Joint Pain, Joint Tenderness Skin: Denies: Rash, Wounds Neurological: Denies: Numbness, Tingling, Focal weakness Psychiatric: Denies: Anxiety, Depression, Homicidal Ideations, Suicidal Ideati ons Hematologic/ Lymphatic: Denies: Easy Bruising, Easy Bleeding VTE Information - Inpt Only VTE Present on Admission: No VTE Mechan Device Prophylaxis: None VTE Pharm Prophylaxis ordered?: No Reason prophylaxis not ordered:: Treatment Not Indicated - On home Coumadin for A. fib; Coumadin continued. Patient Problems: Active and Suspected Problems (Last Reviewed 12/31/19 @ 00:[address] Ayaan Duque MD) Acute respiratory failure with hypoxia (Acute) Pulmonary edema (Acute) SIRS (systemic inflammatory response syndrome) (Acute) CHF (congestive heart failure) (Acute) - Physical Exam Vitals/I&O's: Vital Signs Temp Pulse Resp BP Pulse Ox 98.3 F 100 18 175/129 H 90 12/30/19 20:26 12/30/19 20:26 12/30/19 20:26 12/30/19 20:26 12/30/19 20:46 Oxygen Flow Rate (L/min) 4 Oxygen Delivery Method Nasal Cannula Weight: 120.202 kg Body Mass Index (BMI) 40.3 General: Alert, Oriented x3, Cooperative HEENT: Atraumatic, PERRLA, EOMI, Normocephalic Neck: Supple, Trachea Midline Lungs: Tachypneic, Using Accessory Muscles, Wheezes Cardiovascular: Normal S1, Normal S2, No murmurs, Irregular Rate Abdomen: Bowel Sounds Present, Soft, Non Tender, Obese Extremities: Capillary Refill Less than 3 Seconds, Edema - Bilateral ankles, right ankle worse than left ankle. Right foot edema. Skin: No rashes, No breakdown Musculoskeletal: No Tenderness to Palpation of Joints or Extremities Neurological: Cranial nerves II-XII grossly intact Psych/Mental Status: Normal Affect, Appropriate Laboratory Results 12/30/19 20:44: WBC 10.9, RBC 4.45 L, Hgb 11.1 L, Hct 35.8 L, MCV 80.4, MCH 24.9 L, MCHC 31.0 L, RDW Std Deviation 44.1 H, RDW Coeff of Moni 15.3 H, Plt Count 206, MPV 10.4, Immature Gran % (Auto) 0.600, Neut % (Auto) 75.1 H, Lymph % (Auto) 13.7 L, [place] % (Auto) 6.9, Eos % (Auto) 3.1, Baso % (Auto) 0.6, Absolute Neuts (auto) 8.2 H, Absolute Lymphs (auto) 1.49, Nucleated RBC % 0 12/30/19 20:44: PT 20.8 H, INR 1.9 12/30/19 20:44: Sodium 140, Potassium 3.3 L, Chloride 107, Carbon Dioxide 24.0, Anion Gap 9, BUN 32 H, Creatinine 2.43 H, Estim Creat Clear Calc 24.63, Est GFR (MDRD) Af Amer 33 L, Est GFR (MDRD) Non-Af 28 L, BUN/Creatinine Ratio 13.2, Glucose 270 H, Calcium 9.6, Troponin I < 0.015 12/30/19 20:44: B-Natriuretic Peptide 302.7 H Assessment/Plan All Active Problems (Last Reviewed 12/31/19 @ 00:[address] Ayaan Duque MD) Acute respiratory failure with hypoxia (Acute) Pulmonary edema (Acute) SIRS (systemic inflammatory response syndrome) (Acute) CHF (congestive heart failure) (Acute) Dyspnea (Acute) The patient is a 79 year old M with a significant history of hypothyroidism; hypertension; CAD status post stents; atrial fibrillation; obstructive sleep apnea on home CPAP with oxygen; who presents emergency department with left- sided chest pain; shortness of breath and hypoxemia; and a chest x-ray findings of bilateral infiltrate with small right pleural effusion. Acute hypoxemic respiratory failure likely second to flash pulmonary edema from acute on chronic heart failure with preserved ejection fraction. Actual CT of the chest was independently visualized. Actual chest x-ray was dependently visualized. It showed increasing bilateral pulmonary infiltrates compared to chest x-ray in 2016. Different differential diagnoses include flash pulmonary edema secondary to acute on chronic heart failure with preserved ejection fraction. Patient with no fever and if no cough. White count is 10.9. Cardiac screen at emergency department was negative. Emergency department doctor to give Lasix IV. Lasix 40 mg IV twice daily ordered inpatient. Supplement potassium. Trend BMP. Daily weights. Strict intake and output. Continued on BiPAP. While on BiPAP patient will be n.p.o. except meds. Received azithromycin and ceftriaxone at emergency department. With no cough or white counts will hold off further antibiotics at this time. Will check procalcitonin. Of note patient can have elevation of procalcitonin secondary to kidney disease. Check strep pneumonia antigen and Legionella urine antigen. We will consult cardiology for pulmonary edema. Patient was initially sent to the Medical surgical at ICU while we rule out covid . With covid test negative and with patient not having any increased risk of covid plan was to transfer him to progressive care unit. However patient's required 80% on BiPAP so patient will be admitted to the intensive care unit. Check ABG. Atrial fibrillation On presentation patient was in A. fib with rate of around 108 Home metoprolol continued. INR is subtherapeutic. We will escalate home Coumadin dose. Telemetric monitoring Chest Pain Place on a monitored bed at PCU Chest x-ray and chest CT as above. 10/09/2018: Echocardiogram: Moderate concentric left ventricular hypertrophy. Left ventricular systolic function normal. Diastolic function was unable to be assessed due to arrhythmia. Mitral valve with mild eccentric mitral valve insufficiency. Mild tricuspid valve insufficiency. Pulmonary artery systolic pressure was 33. Stress test on 10/09/2018: Conclusion was probable normal pharmacological myocardial perfusion stress test. Small distal anterior ischemia cannot be excluded. Preserved ejection fraction. Aspirin 325 mg x 1 ordered. ASA 81 mg p.o. daily ordered SL NTG 0.4 mg prn as needed for chest pain ordered Morphine as needed for pain ordered We will check lipid panel. Statin: Home statin continued. EKG independently reviewed showed atrial fibrillation with LVH. Initial troponin was negative. Serial cardiac enzymes ordered Stat EKG as needed for chest pain Cardiology consult Consult pulmonary medicine Diabetes mellitus with hyperglycemia Accu-Chek every 6 hours while n.p.o. Correction scale insulin ordered. Lantus twice daily ordered. CKD stage IV Likely secondary from hypertensive nephrosclerosis and diabetes nephropathy Stable. DVT prophylaxis Continue Coumadin for A. fib. Inpatient E&M: 47218 Init Hosp L3
[2019-12-30] MEDS: Ceftriaxone 1 GM/50 ML BAG IV (22:41)
[2019-12-30] MEDS: Furosemide 40 MG/4 ML Vial IV (23:06)
[2019-12-30 23:21] LABS: Lactic Acid 1.9 mmol/L (0.4-1.9)
--- NOTE | 2019-12-30 23:37 | EKG12_ITS ---
Test Reason : Blood Pressure : / mmHG Vent. Rate : 121 BPM Atrial Rate : 153 BPM P-R Int : 000 ms QRS Dur : 098 ms QT Int : 322 ms P-R-T Axes : 000 -16 108 degrees QTc Int : 457 ms Atrial fibrillation with premature ventricular or aberrantly conducted complexes Inferior infarct , age undetermined Anterior infarct , age undetermined Abnormal ECG Confirmed by PABLO GOMEZ, TATY ([id number]), design editor KIMMY SAWYER ([id number]) on 01/09/2020 11:37:17 AM Referred By: Confirmed By:TATY SHAH MD
--- NOTE | 2019-12-30 23:40 | ECHOCS_ITS ---
Reason For Study: Chest Pain Procedure This was a 2D Doppler, Color Flow transthoracic echocardiogram. The study was technically difficult. Limited views were obtained. Contrast injection was performed. Exam performed portable in ICU/CCU. Left Ventricle Normal LV size. The estimated ejection fraction is 45 %. Mild segmental systolic dysfunction (see wall motion). Inferior [place] : Hypokinetic. There are regional wall motion abnormalities as specified. Right Ventricle Normal RV size. Normal systolic function. Atria The left atrium is moderately enlarged. Normal right atrium. Mitral Valve Normal mitral valve. Mild (1+) eccentric mitral valve insufficiency. Tricuspid Valve Normal tricuspid valve. Mild (1+) tricuspid valve insufficiency. Pulmonary artery systolic pressure is 30 mmHg. Pulmonic Valve The pulmonic valve is not well visualized. Great Vessels Normal aortic root. Pericardium/Pleural No pericardial effusion. Medication Diluted definity 3ml given slow IV push to enhance endocardial definition. MMode/2D Measurements & Calculations RVDd: 4.4 cm Ao root diam: 3.6 cm LAV(MOD-bp): 93.6 ml LAV(MOD-bp) Indexed: 40.4 ml/m2 LAV(MOD-sp2): 110.1 ml LAV(MOD-sp4): 79.8 ml SV(MOD-sp4): 52.0 ml SV(sp4-el): 53.2 ml LVAd ap4: 39.2 cm2 EDV(MOD-sp4): 141.8 ml EDV(sp4-el): 146.0 ml LVAs ap4: 30.6 cm2 ESV(MOD-sp4): 89.8 ml ESV(sp4-el): 92.8 ml EF(MOD-sp4): 36.7 % EF(sp4-el): 36.4 % LA A4 area: 25.4 cm2 LA dimension(2D): 4.7 cm RA A4 area: 20.8 cm2 Doppler Measurements & Calculations MV E max raj: 108.9 cm/sec Ao V2 max: 113.6 cm/sec LV V1 max: 89.1 cm/sec Ao max P.2 mmHg LV V1 max P.2 mmHg Ao V2 mean: 82.4 cm/sec Ao mean P.9 mmHg Ao V2 VTI: 20.6 cm PA V2 max: 55.6 cm/sec TR max raj: 252.1 cm/sec TR max P.4 mmHg Interpretation Summary Normal LV size. The estimated ejection fraction is 45 %. Inferior [place] : Hypokinetic Mild segmental systolic dysfunction (see wall motion). Contrast injection was performed. Ordering Physician: Ayaan Duque Referring Physician: Masha Treviño Performed By: Danielle Betancur RDCS, RVT
[2019-12-30 23:44] LABS: Probe Check PASS; Specimen Processing Control PASS
[2019-12-31] VITALS (50 sets, daily range): BP systolic 75–190; BP diastolic 38–127; PULSE 66–113; RESP 12–28; TEMP 34.8–38.6; O2SAT 85–100; BMI 40.8
[2019-12-31 00:06] LABS: Fibrinogen 464 mg/dl (203-444)
[2019-12-31 00:13] LABS: Ferritin 69 ng/mL (26-388); Triglycerides 250 mg/dL
[2019-12-31 00:16] LABS: D-Dimer Quantitative (DVT/PE) 0.84 FEU/ug/m (0.27-0.49)
[2019-12-31] MEDS: Insulin Lispro 100 UNIT/ML INSULN.PEN SC ×4 (00:41→21:55)
[2019-12-31 00:49] LABS: Allen Test POS; Blood Gas Specimen Type ART; EPAP 14; FI02 80; IPAP 20; O2 Delivery Device Bi Pap; RR 12; SITE L RADIAL
[2019-12-31 00:50] LABS: Base Excess -4 mmol/L (-2 to +2); Bicarbonate 23.3 mmol/L (22-26); PO2 58 mmHG (75-100); SO2 85 % (95-99); Time Given 40; Total Carbon Dioxide 25 mmol/L; pCO2 52.9 mmHg (35-45); pH 7.25 (7.35-7.45)
[2019-12-31] MEDS: Morphine 2 MG/ML Syringe IV (01:04)
[2019-12-31] MEDS: 0.9% Saline Lock 10 ML Syringe IV (01:04)
[2019-12-31 01:09] LABS: Procalcitonin 0.13 ng/mL (0.00-0.09)
[2019-12-31] MEDS: Nitroglycerin Infusion 250 ML 6 MG CONT INF (01:41)
[2019-12-31 02:21] LABS: Blood Gas Specimen Type VEN; O2 Delivery Device BiPAP; SITE L Radial; VBG BASE EXCESS -4 mmol/L (-1.0-3.5); VBG Bicarbonate 23 mmol/L (22-26); VBG PO2 45 mmHg (25-40); VBG SO2 74 % (50-70); VBG pCO2 50.6 mmHg (41-51); VBG pH 7.27 (7.32-7.42)
--- NOTE | 2019-12-31 02:30 | NURSING ---
Dr. Duque at bedside to intubate. 0234 20mg Etomidate given IV. 0235 100mg Succs given IV. Attempt at intubation without success. Resp. continues to bag pt. 0245 Pt. arousing and moving. 2mg IV Ativan given. 0249 20mg Etomidate given. 0250 100mg Succs IV given. [address] Duque #[phone] [email or web address]. Positive color change and bilateral breath sounds.
[2019-12-31] MEDS: Etomidate 20 MG/10 ML Vial IV ×2 (02:34→02:49)
[2019-12-31] MEDS: LORazepam 2 MG/ML Syringe IV (02:45)
[2019-12-31] MEDS: Propofol 10MG/Ml 1,000 MG/100 ML Bottle 7.3 MG CONT INF (02:55)
--- NOTE | 2019-12-31 03:05 | RAD_ITS ---
STUDY: X-RAY CHEST REASON FOR EXAM: Male, 79 years old. ETT PLACEMENT TECHNIQUE: Single AP portable view of the chest. COMPARISON: 12/30/2019. FINDINGS: Endotracheal tube is seen its tip is 4 cm superior to the alberto. An NG tube is seen its tip is below the diaphragm is in good position. Patchy airspace opacities are seen in both lungs more prominent in the left lower lobe suggesting bilateral pneumonia are worse since the previous study. Increased interstitial markings are noted in both lungs suggesting pulmonary edema. There is no demonstrated pleural abnormality. Normal size heart. Normal mediastinum and radu. Normal visualized pulmonary arteries. Normal visualized aortic arch and descending thoracic aorta. Normal visualized thoracic spine. Normal visualized ribs, clavicles, and shoulders. There is no demonstrated abnormality of the visualized soft tissue structures of the upper abdomen. RAD/Chest 1 View (Portable) IMPRESSION: Pneumonia. Possible pulmonary edema. There has been worsening since the previous study. Electronically Signed: Lissa Bishop, at 3:58 EDT Tel , Service support ,
--- NOTE | 2019-12-31 03:10 | RAD_ITS ---
STUDY: X-RAY - ABDOMEN/PELVIS REASON FOR EXAM: Male, 79 years old. OG TUBE PLACEMENT TECHNIQUE: Single AP view of the abdomen / pelvis. COMPARISON: None. FINDINGS: An NG tube is seen its tip is below the diaphragm is in good position. There is an unremarkable bowel gas pattern. There is no demonstrated free abdominal air. The visualized liver, spleen and kidneys are grossly normal in size and morphology. Normal soft tissue structures. Normal visualized osseous structures. RAD/Abdomen Single View (Portable) IMPRESSION: An NG tube is seen its tip is below the diaphragm is in good position. Electronically Signed: Lissa Bishop, at 3:59 EDT Tel , Service support ,
--- NOTE | 2019-12-31 03:24 | PCM.PN.BLA ---
Progress Note Endotracheal Intubation Note Indication: Respiratory Distress Performed by: Dr. Ayaan Duque The patient was placed in sniffing position. RSI was done using Etomidate and succinylcholine. The patient was transitioned from BiPAP. During the course of intubation Ambubagging was done. Glidescope was used and inserted into the oropharynx at which time there was a Grade 1 view of the vocal cords. An 8-icelandic endotracheal tube was inserted and visualized going through the vocal cords. The stylette was removed and cuff was inflated. Colorimetric change was visualized on the CO2 detector. Breath sounds were heard equally in both lung [place]. The endotracheal tube was placed at 23 cm, measured at the lips. A STAT chest x-ray was ordered to verify endotracheal tube placement. The patient tolerated the procedure well and there were no immediate complications. STROKE Vital Signs/Narrative: Vital Signs Temp Pulse Resp BP Pulse Ox 12/31/19 02:15 89 17 133/89 H 85 12/31/19 02:00 92 19 H 147/70 H 86 12/31/19 01:45 91 22 H 141/87 H 90 12/31/19 01:41 80 151/98 H 12/30/19 23:50 97.5 F L 100 24 H 163/67 H 93 12/30/19 23:39 102 H 12/30/19 23:31 102 H 12/30/19 23:29 117 H 32 H 95 Procedures: [id number] Insert Emergency Airway
[2019-12-31 03:26] LABS: Absolute Lymphocyte Count 0.57 X10^3/uL (0.83-4.51); Absolute Neutrophil Count 17.4 X10^3/uL (2.0-7.7); Basophil# 0.06 X10^3/uL; Basophil% 0.3 % (0-1); Eosinophil# 0.01 X10^3/uL; Eosinophils% 0.1 % (0-5); Hemoglobin 11.2 g/dL (13.0-16.5); Lymphocyte # 0.57 X10^3/ul (4.0); Mean Corp Hgb Conc 30.3 g/dL (32-36); Mean Corpuscular Hgb 25.2 pg (27.0-32.0); Mean Corpuscular Volume 83.3 fL (80-94); Mean Platelet Vol. 10.1 fl (6.2-12.0); Monocyte# 0.59 X10^3/uL; Monocyte% 3.2 % (0-10); NRBC Flagged by Analyzer 0 % (0-5); Neutrophil # 17.37 X10^3/uL (2.7-7.7); Neutrophil % 92.7 % (47-70); POSITIVE DIFFERENTIAL YES; Platelet Count 261 K/mm3 (150-450); RBC Distribution Width CV 15.2 % (11.6-14.6); RBC Distribution Width SD 46.3 fl (35.1-43.9); Red Blood Count 4.44 M/mm3 (4.6-6.2); White Blood Count 18.7 K/mm3 (4.4-11.0)
[2019-12-31 03:31] LABS: Differential Indicated SCAN CRITERIA MET
[2019-12-31 03:44] LABS: Cholesterol 126 mg/dL (200); High Density Lipoprotein 47 mg/dL; Triglycerides 109 mg/dL; Very Low Density Lipoprotein 22 mg/dL (5-40)
--- NOTE | 2019-12-31 03:58 | NURSING ---
Attempted to call pt's Leigh Ann to update her about intubation. Left message to call the unit.
[2019-12-31 04:01] LABS: FI02 100
[2019-12-31 04:02] LABS: EPAP 16; IPAP 24; Time Given 213
--- NOTE | 2019-12-31 04:04 | CPS ---
[employer] obtained VBG during ABG attempt. Results given to Doctor and stated that this was probable VBG gas when reading results. Physician aware and doesn't want another ABG at this time. Quality was not sufficient to run a second gas for critical results. Critical results for VBG were read to .
--- NOTE | 2019-12-31 04:06 | CPS ---
Pt.'s IPAP/EPAP and FiO2 increased heavily due to pt.'s oxygenation needs in ICU; needed alveolar recruitment with 100% FiO2
[2019-12-31] MEDS: Aspirin 325 MG Tablet PO (04:09)
[2019-12-31 04:19] LABS: Differential Comment SCANNED
[2019-12-31 04:32] LABS: CPK Total, Creatine Kinase 270 U/L (39-308); Triglycerides 109 mg/dL
[2019-12-31 04:46] LABS: International Normalized Ratio 1.9; Prothrombin Time (Protime)PT. 21.5 SECONDS (11.7-14.9)
[2019-12-31 05:06] LABS: Bedside Glucose 377 mg/dL (70-110)
[2019-12-31 05:31] LABS: Anion Gap 11 (5-15); BUN 37 mg/dL (7-18); BUN/Creat Ratio 12.7 RATIO (10-20); Calcium,Total 8.8 mg/dL (8.5-10.1); Chloride 104 mmol/L (98-107); Creatinine, Serum 2.92 mg/dL (0.70-1.30); EST Glomerular Filtration Rate 22 mL/min (>60); Est Glom Filt Rate - Afr Amer 27 mL/min (>60); Glucose 411 mg/dL (74-106); Magnesium 2.3 mg/dL (1.6-2.6); Potassium 4.3 mmol/L (3.5-5.1); Sodium Level 137 mmol/L (136-145)
[2019-12-31 05:58] LABS: Allen Test POS; Blood Gas Specimen Type ART; FI02 80; Mode A-C; O2 Delivery Device Vent; RR 14; SITE L RADIAL; Vt 500
[2019-12-31 05:59] LABS: Base Excess -3 mmol/L (-2 to +2); Bicarbonate 23.9 mmol/L (22-26); PEEP 20; PO2 100 mmHG (75-100); Time Given 516; Total Carbon Dioxide 26 mmol/L; pCO2 51.4 mmHg (35-45); pH 7.28 (7.35-7.45)
[2019-12-31 06:00] LABS: SO2 97 % (95-99)
--- NOTE | 2019-12-31 06:11 | CON.PCM_ITS ---
Reason for Consult Date of Consultation: 12/31/19 Reason for Consultation: Acute respiratory failure History of Present Illness: The patient is a 79-year-old male, with a history as outlined below, who presented to the emergency department on December 29 with complaints of chest pain and shortness of breath. History pertinent to the patient's hospitalization was obtained primarily via chart review, as the patient is currently intubated and sedated. The patient does have a history of coronary artery disease with prior PCI, persistent atrial fibrillation, chronic kidney disease, and obstructive sleep apnea. He is currently followed by Dr. Boss in the cardiology clinic. Surface echocardiogram from September 2018 revealed moderate concentric LVH. Left ventricular systolic function was noted to be normal. Pulmonary artery systolic pressure was estimated to be 33 mmHg. On presentation to the emergency department, the patient was noted to be afebrile and hypertensive. The patient initially had a normal white blood cell count. D-dimer was elevated to 0.84. Chemistry profile was notable for a potassium of 3.3 and creatinine of 2.43. Lactate was noted to be 1.9. Initial troponin was negative. BNP was elevated to 302. Procalcitonin was only mildly elevated to 0.13. Coronavirus PCR was negative. CT chest revealed bilateral groundglass changes and consolidative airspace opacities. The patient was initially placed on BiPAP therapy due to respiratory instability. The patient was provided with antimicrobial therapy and admitted to the medical intensive care unit. Overnight, the patient continued to decompensate from a respiratory perspective and was subsequently intubated. The patient was initially placed on exceedingly high levels of PEEP, as high as 24. This morning he is currently on assist control mode mechanical ventilation with an FiO2 requirement of 60% and PEEP of 20. He is sedated on fentanyl. Post intubation, arterial blood gas was obtained and revealed a pH of 7.28 with a corresponding PCO2 of 51 and PO2 of 100. The patient's troponin bumped to 1.99 overnight. Past Medical History Past Medical History (Chronic Problems): Chronic Problems (Last Reviewed 12/31/19 @ 00:[address] 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) Z79.01 Type 2 diabetes mellitus (Chronic) E11.9 Hypothyroidism E03.9 Obstructive sleep apnea G47.33 Allergies Penicillins Adverse Reaction (Severe, Verified 12/30/19 20:27) Swelling Home Medications: Ambulatory Orders Medication Instructions Recorded Aspirin [Adult Low Dose Aspirin EC] 81 mg PO DAILY 07/17/15 Nitroglycerin (INPATIENT USE) 0.4 mg SUBLINGUAL Q5M PRN 07/17/15 [Nitrostat] sodium bicarbonate 650 mg tablet 650 mg PO .q day tab 07/29/17 blood sugar diagnostic See Dose Instructions .ROUTE 08/18/17 .MEDSUPPLY #20 ea insulin syringe-needle U-100 04/26 See Dose Instructions .ROUTE 10/24/17 mL 31 gauge x 15/64 .MEDSUPPLY #100 ea metoprolol succinate 100 mg 100 mg PO DAILY #90 tab 05/29/19 tablet,extended release 24 hr lovastatin 40 mg tablet 40 mg PO DAILY #90 tab 07/10/19 warfarin 5 mg tablet 5 mg PO .COMPLEX #180 tab 07/10/19 amlodipine 10 mg tablet 10 mg PO QDAY #90 tab 07/18/19 benazepril 20 mg tablet 20 mg PO QDAY #90 tab 07/18/19 furosemide 40 mg tablet 40 mg PO DAILY tab 08/29/19 levothyroxine 75 mcg tablet 75 mcg PO DAILY 09/14/19 clopidogrel 75 mg tablet 75 mg PO DAILY 12/20/19 Furosemide [Lasix] 40 mg PO MOWEFR 12/30/19 Isosorbide Mononitrate [Isosorbide 30 mg PO DAILY 12/30/19 Mononitrate ER] Spironolactone 25 mg PO MOWEFR 12/30/19 Insulin NPH Human [Humulin N (Bkc)] 28 units SUBCUT QHS 12/31/19 Insulin NPH Human [Humulin N (Bkc)] 30 units SUBCUT DAILY@0730 12/31/19 Surgical History: Surgical History (Last Reviewed 12/31/19 @ 00:[address] Ayaan Duque MD) History of coronary artery stent placement (Chronic) Onset Date: 06/03/15 Z95.5 BMS to Mid RCA w/ 3.5 x 24 mm [employer] Executive Stent 04/03/2003; BMS to Distal RCA w/ 3.0 x 18 mm [employer] Executive Stent 06/04/2004; POBA-ISR Prox and Distal RCA 06/03/15 History of back surgery Onset Date: 01/2019 Z98.890 Lumbar History of total right knee replacement (TKR) Z96.651 Surgical History: angioplasty, total knee arthroplasty Lives: Spouse/ Significant Other Smoking Status: Former smoker - *Family History Maternal Family History: Family History (Last Reviewed 12/31/19 @ 00:[address] Ayaan Duque MD) Father CAD (coronary artery disease) Embolism Mother Kidney disease Review of Systems Unable to obtain accurate/complete ROS d/t: Due to current intubation and mechanical ventilation status Patient Problems: Active and Suspected Problems (Last Reviewed 12/31/19 @ 00:[address] Ayaan Duque MD) Acute respiratory failure with hypoxia and hypercapnia (Acute) Acute [id number] myocardial infarction (Acute 12/31/19) Pulmonary edema (Acute) CHF (congestive heart failure) (Acute) Objective: The patient's most recent lab work, culture data and imaging studies have all been personally reviewed. Strep and urine Legionella antigens were negative. Respiratory viral panel is pending. Blood and sputum cultures are pending. - Physical Exam Vitals/I&O's: Vital Signs Temp Pulse Resp BP Pulse Ox 96.3 F L 78 17 105/53 L 95 12/31/19 06:00 12/31/19 06:00 12/31/19 06:00 12/31/19 06:00 12/31/19 06:00 Oxygen Flow Rate (L/min) 4 Oxygen Delivery Method Mechanical Ventilator Weight: 268 lb 4.841 oz Body Mass Index (BMI) 40.8 Intake and Output for Last 24 Hours 12/29/19 12/30/19 12/31/19 23:59 23:59 23:59 Intake Total 50 / 50 343.11 / 343.11 Output Total 250 / 250 Balance 50 / 50 93.11 / 93.11 General: - - Intubated, sedated and mechanically ventilated. HEENT: Atraumatic, Normocephalic Oral: No Gingival or Mucosal Lesions/ Ulcerations, - - Endotracheal and OG tubes in place Neck: Supple, No Nodes, Trachea Midline Lungs: No rhonchi, No wheeze, Diminished, Rales Cardiovascular: Normal S1, Normal S2, No murmurs, Irregular Rate Abdomen: Bowel Sounds Present, Soft, Non Tender, Obese Extremities: No clubbing, No cyanosis, Edema Skin: - - Lower extremity venous stasis dermatitis Musculoskeletal: No Muscle Wasting Lymphatic: No Cervical, Supraclavicular, or Inguinal Adenopathy Neurological: - - No focal neurological deficits. Currently sedated on the vent. Labs (Last 48 Hours) 12/30/19 12/30/19 12/30/19 20:44 20:44 20:44 WBC 10.9 RBC 4.45 L Hgb 11.1 L Hct 35.8 L MCV 80.4 MCH 24.9 L MCHC 31.0 L RDW Std Deviation 44.1 H RDW Coeff of Moni 15.3 H Plt Count 206 MPV 10.4 Immature Gran % (Auto) 0.600 Neut % (Auto) 75.1 H Lymph % (Auto) 13.7 L [place] % (Auto) 6.9 Eos % (Auto) 3.1 Baso % (Auto) 0.6 Absolute Neuts (auto) 8.2 H Absolute Lymphs (auto) 1.49 Nucleated RBC % 0 Differential Comment PT 20.8 H INR 1.9 Fibrinogen D-Dimer Quant (PE/DVT) Specimen Type Sample Site pH Bicarbonate Actual Total CO2 Base Excess O2 Saturation O2 % ABG pCO2 ABG pO2 Josue Test VBG pH VBG pO2 VBG HCO3 VBG O2 Sat (Calc) VBG O2 Content VBG Base Excess POC Mix VBG pCO2 Pt Tmp Respiration Rate O2 Delivery Device Vent Mode Tidal Volume POC PEEP EPAP IPAP Blood Gas Notified Whom Blood Gas Notified Time Sodium 140 Potassium 3.3 L Chloride 107 Carbon Dioxide 24.0 Anion Gap 9 BUN 32 H Creatinine 2.43 H Estim Creat Clear Calc 24.63 Est GFR (MDRD) Af Amer 33 L Est GFR (MDRD) Non-Af 28 L BUN/Creatinine Ratio 13.2 Glucose 270 H Lactic Acid Calcium 9.6 Phosphorus Magnesium Ferritin Total Creatine Kinase Troponin I < 0.015 B-Natriuretic Peptide Triglycerides Cholesterol LDL Cholesterol VLDL Cholesterol HDL Cholesterol Procalcitonin COVID-19 (MIKE) MRSA (PCR) POC Glucose 12/30/19 12/30/19 12/30/19 20:44 20:44 20:44 WBC RBC Hgb Hct MCV MCH MCHC RDW Std Deviation RDW Coeff of Moni Plt Count MPV Immature Gran % (Auto) Neut % (Auto) Lymph % (Auto) [place] % (Auto) Eos % (Auto) Baso % (Auto) Absolute Neuts (auto) Absolute Lymphs (auto) Nucleated RBC % Differential Comment PT INR Fibrinogen 464 H D-Dimer Quant (PE/DVT) 0.84 H* Specimen Type Sample Site pH Bicarbonate Actual Total CO2 Base Excess O2 Saturation O2 % ABG pCO2 ABG pO2 Josue Test VBG pH VBG pO2 VBG HCO3 VBG O2 Sat (Calc) VBG O2 Content VBG Base Excess POC Mix VBG pCO2 Pt Tmp Respiration Rate O2 Delivery Device Vent Mode Tidal Volume POC PEEP EPAP IPAP Blood Gas Notified Whom Blood Gas Notified Time Sodium Potassium Chloride Carbon Dioxide Anion Gap BUN Creatinine Estim Creat Clear Calc Est GFR (MDRD) Af Amer Est GFR (MDRD) Non-Af BUN/Creatinine Ratio Glucose Lactic Acid Calcium Phosphorus Magnesium Ferritin 69 Total Creatine Kinase Troponin I B-Natriuretic Peptide 302.7 H Triglycerides 250 H Cholesterol LDL Cholesterol VLDL Cholesterol HDL Cholesterol Procalcitonin COVID-19 (MIKE) MRSA (PCR) POC Glucose 12/30/19 12/30/19 12/31/19 22:18 22:20 00:05 WBC RBC Hgb Hct MCV MCH MCHC RDW Std Deviation RDW Coeff of Moni Plt Count MPV Immature Gran % (Auto) Neut % (Auto) Lymph % (Auto) [place] % (Auto) Eos % (Auto) Baso % (Auto) Absolute Neuts (auto) Absolute Lymphs (auto) Nucleated RBC % Differential Comment PT INR Fibrinogen D-Dimer Quant (PE/DVT) Specimen Type Sample Site pH Bicarbonate Actual Total CO2 Base Excess O2 Saturation O2 % ABG pCO2 ABG pO2 Josue Test VBG pH VBG pO2 VBG HCO3 VBG O2 Sat (Calc) VBG O2 Content VBG Base Excess POC Mix VBG pCO2 Pt Tmp Respiration Rate O2 Delivery Device Vent Mode Tidal Volume POC PEEP EPAP IPAP Blood Gas Notified Whom Blood Gas Notified Time Sodium Potassium Chloride Carbon Dioxide Anion Gap BUN Creatinine Estim Creat Clear Calc Est GFR (MDRD) Af Amer Est GFR (MDRD) Non-Af BUN/Creatinine Ratio Glucose Lactic Acid 1.9 Calcium Phosphorus Magnesium Ferritin Total Creatine Kinase Troponin I B-Natriuretic Peptide Triglycerides Cholesterol LDL Cholesterol VLDL Cholesterol HDL Cholesterol Procalcitonin 0.13 H COVID-19 (MIKE) Negative MRSA (PCR) POC Glucose 12/31/19 12/31/19 12/31/19 00:05 00:35 02:13 WBC RBC Hgb Hct MCV MCH MCHC RDW Std Deviation RDW Coeff of Moni Plt Count MPV Immature Gran % (Auto) Neut % (Auto) Lymph % (Auto) [place] % (Auto) Eos % (Auto) Baso % (Auto) Absolute Neuts (auto) Absolute Lymphs (auto) Nucleated RBC % Differential Comment PT INR Fibrinogen D-Dimer Quant (PE/DVT) Specimen Type ART AYAKA Sample Site L RADIAL L Radial pH 7.25 L Bicarbonate Actual 23.3 Total CO2 25 Base Excess -4 L O2 Saturation 85 L O2 % 80 100 ABG pCO2 52.9 H ABG pO2 58 L Josue Test POS VBG pH 7.27 L VBG pO2 45 H VBG HCO3 23 VBG O2 Sat (Calc) 74 H VBG O2 Content Pending VBG Base Excess -4 L POC Mix VBG pCO2 Pt Tmp 50.6 Respiration Rate 12 O2 Delivery Device Bi Pap BiPAP Vent Mode Tidal Volume POC PEEP EPAP 14 16 IPAP 20 24 Blood Gas Notified Whom HOSP MD HOSP MD Blood Gas Notified Time 40 213 Sodium Potassium Chloride Carbon Dioxide Anion Gap BUN Creatinine Estim Creat Clear Calc Est GFR (MDRD) Af Amer Est GFR (MDRD) Non-Af BUN/Creatinine Ratio Glucose Lactic Acid Calcium Phosphorus Magnesium Ferritin Total Creatine Kinase Troponin I 0.215 H B-Natriuretic Peptide Triglycerides Cholesterol LDL Cholesterol VLDL Cholesterol HDL Cholesterol Procalcitonin COVID-19 (MIKE) MRSA (PCR) POC Glucose 12/31/19 12/31/1920 03:05 03:05 03:05 WBC 18.7 H RBC 4.44 L Hgb 11.2 L Hct 37.0 L MCV 83.3 MCH 25.2 L MCHC 30.3 L RDW Std Deviation 46.3 H RDW Coeff of Moni 15.2 H Plt Count 261 MPV 10.1 Immature Gran % (Auto) 0.700 Neut % (Auto) 92.7 H Lymph % (Auto) 3.0 L [place] % (Auto) 3.2 Eos % (Auto) 0.1 Baso % (Auto) 0.3 Absolute Neuts (auto) 17.4 H Absolute Lymphs (auto) 0.57 L Nucleated RBC % 0 Differential Comment SCANNED PT INR Fibrinogen D-Dimer Quant (PE/DVT) Specimen Type Sample Site pH Bicarbonate Actual Total CO2 Base Excess O2 Saturation O2 % ABG pCO2 ABG pO2 Josue Test VBG pH VBG pO2 VBG HCO3 VBG O2 Sat (Calc) VBG O2 Content VBG Base Excess POC Mix VBG pCO2 Pt Tmp Respiration Rate O2 Delivery Device Vent Mode Tidal Volume POC PEEP EPAP IPAP Blood Gas Notified Whom Blood Gas Notified Time Sodium Potassium Chloride Carbon Dioxide Anion Gap BUN Creatinine Estim Creat Clear Calc Est GFR (MDRD) Af Amer Est GFR (MDRD) Non-Af BUN/Creatinine Ratio Glucose Lactic Acid Calcium Phosphorus Magnesium Ferritin Total Creatine Kinase Troponin I 1.990 H* B-Natriuretic Peptide Triglycerides 109 Cholesterol 126 LDL Cholesterol 57 VLDL Cholesterol 22 HDL Cholesterol 47 Procalcitonin COVID-19 (MIKE) MRSA (PCR) POC Glucose 12/31/19 12/31/19 12/31/19 03:05 03:05 04:30 WBC RBC Hgb Hct MCV MCH MCHC RDW Std Deviation RDW Coeff of Moni Plt Count MPV Immature Gran % (Auto) Neut % (Auto) Lymph % (Auto) [place] % (Auto) Eos % (Auto) Baso % (Auto) Absolute Neuts (auto) Absolute Lymphs (auto) Nucleated RBC % Differential Comment PT 21.5 H INR 1.9 Fibrinogen D-Dimer Quant (PE/DVT) Specimen Type Sample Site pH Bicarbonate Actual Total CO2 Base Excess O2 Saturation O2 % ABG pCO2 ABG pO2 Josue Test VBG pH VBG pO2 VBG HCO3 VBG O2 Sat (Calc) VBG O2 Content VBG Base Excess POC Mix VBG pCO2 Pt Tmp Respiration Rate O2 Delivery Device Vent Mode Tidal Volume POC PEEP EPAP IPAP Blood Gas Notified Whom Blood Gas Notified Time Sodium 137 Potassium 4.3 Chloride 104 Carbon Dioxide 22.0 Anion Gap 11 BUN 37 H Creatinine 2.92 H Estim Creat Clear Calc 20.50 Est GFR (MDRD) Af Amer 27 L Est GFR (MDRD) Non-Af 22 L BUN/Creatinine Ratio 12.7 Glucose 411 H Lactic Acid Calcium 8.8 Phosphorus 5.0 H Magnesium 2.3 Ferritin Total Creatine Kinase 270 Troponin I B-Natriuretic Peptide Triglycerides 109 Cholesterol LDL Cholesterol VLDL Cholesterol HDL Cholesterol Procalcitonin COVID-19 (MIKE) MRSA (PCR) POC Glucose 12/31/19 12/31/19 12/31/19 04:44 04:54 05:12 WBC RBC Hgb Hct MCV MCH MCHC RDW Std Deviation RDW Coeff of Moni Plt Count MPV Immature Gran % (Auto) Neut % (Auto) Lymph % (Auto) [place] % (Auto) Eos % (Auto) Baso % (Auto) Absolute Neuts (auto) Absolute Lymphs (auto) Nucleated RBC % Differential Comment PT INR Fibrinogen D-Dimer Quant (PE/DVT) Specimen Type ART Sample Site L RADIAL pH 7.28 L Bicarbonate Actual 23.9 Total CO2 26 Base Excess -3 L O2 Saturation 97 O2 % 80 ABG pCO2 51.4 H ABG pO2 100 Josue Test POS VBG pH VBG pO2 VBG HCO3 VBG O2 Sat (Calc) VBG O2 Content VBG Base Excess POC Mix VBG pCO2 Pt Tmp Respiration Rate 14 O2 Delivery Device Vent Vent Mode A-C Tidal Volume 500 POC PEEP 20 EPAP IPAP Blood Gas Notified Whom [facility] Blood Gas Notified Time 516 Sodium Potassium Chloride Carbon Dioxide Anion Gap BUN Creatinine Estim Creat Clear Calc Est GFR (MDRD) Af Amer Est GFR (MDRD) Non-Af BUN/Creatinine Ratio Glucose Lactic Acid Calcium Phosphorus Magnesium Ferritin Total Creatine Kinase Troponin I B-Natriuretic Peptide Triglycerides Cholesterol LDL Cholesterol VLDL Cholesterol HDL Cholesterol Procalcitonin COVID-19 (MIKE) MRSA (PCR) Pending POC Glucose 377 H Microbiology 12/31/19 04:05 Urine Catheter - Melendez Legionella Antigen - Final 12/31/19 04:05 Urine Catheter - Melendez Streptococcus pneumoniae Antigen (M - Final Clinical Impression(s) from Imaging Studies Chest X-Ray 12/30/19 20:45 IMPRESSION: Stable chronic increased interstitial markings in the lungs. No pulmonary infiltrates or pleural effusions. Electronically Signed: Francisco Mckeon, at 20:59 EDT Tel , Service support , Chest CT 12/30/19 21:29 IMPRESSION: Probable congestive failure with small right pleural effusion. Cannot exclude coexisting pneumonia. Electronically Signed: Nestor Corbett MD at 22:21 EDT , Service support , Chest X-Ray 12/31/19 03:05 IMPRESSION: Pneumonia. Possible pulmonary edema. There has been worsening since the previous study. Electronically Signed: Lissa Bishop, at 3:58 EDT Tel , Service support , KUB X-Ray 12/31/19 03:10 IMPRESSION: An NG tube is seen its tip is below the diaphragm is in good position. Electronically Signed: Lissa Bishop, at 3:59 EDT Tel , Service support , Current Medications Acetaminophen (Tylenol Liquid) 650 mg GT Q6H PRN PRN PRN Reason: Pain Score 1-10/Temp > 100.7 F Amlodipine Besylate (Norvasc) 10 mg GT DAILY ANNA Aspirin (Aspirin, Baby) 81 mg GT DAILYCM ANNA Atorvastatin Calcium (Lipitor) 20 mg GT DAILY@2200 ANNA Chlorhexidine Gluconate () 15 ml PO BID ANNA Clopidogrel Bisulfate (Plavix) 75 mg GT DAILY ANNA Dextrose (D50w Syringe) 0 gm IV X1 PRN; Protocol PRN Reason: Hypoglycemia Famotidine (Pepcid) 20 mg GT BID ANNA Furosemide (Lasix) 40 mg IV BID@1000,1800 ANNA Glucagon () 1 mg IM .X1 PRN PRN Reason: Hypoglycemia Sodium Chloride () 250 mls @ 15 mls/hr IV .[id number] PRN PRN Reason: Saline Flush Sodium Chloride () 250 mls @ 15 mls/hr IV .[id number] PRN PRN Reason: Additional IVPB Infusion Propofol (Diprivan) 1,000 mg in 100 mls @ 7.302 mls/hr CONT INF .Q12H [facility]; Protocol Last Titration: 12/31/19 04:00 Dose: 0 mcg/kg/min, 0 mls/hr Documented by: Fentanyl Citrate 1,000 mcg/ (Sodium Chloride) 100 mls @ 2.5 mls/hr CONT INF .Q40H [facility]; Protocol Last Titration: 12/31/19 06:00 Dose: 75 mcg/hr, 7.5 mls/hr Documented by: Azithromycin 500 mg/ Dextrose 255 mls @ 250 mls/hr IV X1 ONE Stop: 12/31/19 19:01 Ceftriaxone Sodium (Rocephin) 1 gm in 50 mls @ 100 mls/hr IV Q12 ANNA Insulin Glargine (Lantus (Bkc)) 28 units SC BID [facility] Insulin Human Lispro (Humalog Kwikpen (Bkc)) 0 unit SC Q4 [facility]; Protocol Last Admin: 12/31/19 04:51 Dose: 10 units Documented by: Levothyroxine Sodium (Synthroid) 75 mcg GT DAILY@0600 [facility] Morphine Sulfate () 2 mg IV Q3H PRN PRN PRN Reason: Pain Score 6-10/10 Last Admin: 12/31/19 01:04 Dose: 2 mg Documented by: Ondansetron HCl (Zofran) 4 mg IV Q8H PRN PRN PRN Reason: NAUSEA/VOMITING Sodium Bicarbonate (Sodium Bicarbonate) 650 mg GT DAILY [facility] Sodium Chloride () 10 - 40 ml IV UD PRN PRN Reason: SALINE FLUSH Last Admin: 12/31/19 01:04 Dose: 30 ml Documented by: Spironolactone (Aldactone) 25 mg GT MoWeFr@0800 [facility] Warfarin Sodium (Coumadin (Pbkc)) 7.5 mg GT DAILY@1700 [facility]; Protocol Assessment/Plan Active and Suspected Problems (Last Reviewed 12/31/19 @ 00:[address] Ayaan Duque MD) Acute respiratory failure with hypoxia and hypercapnia (Acute) Acute [id number] myocardial infarction (Acute 12/31/19) Pulmonary edema (Acute) CHF (congestive heart failure) (Acute) RECOMMENDATIONS: 1. Continue empiric antimicrobials pending infectious work-up. 2. Increase scheduled Lasix to 3 times daily. 3. Continue to wean FiO2 and PEEP to maintain oxygen saturations at or above 90%. 4. Okay to start tube feeds today from my perspective. 5. Possible heart catheterization in the near future. Will defer to cardiology. 6. Continue Pepcid for GI prophylaxis. 7. Await results of echocardiogram. IMPRESSIONS: 1. Acute combined respiratory failure Likely multifactorial in etiology with acute decompensated heart failure and subsequent pulmonary edema, along with possible community-acquired pneumonia contributing. Plan to continue current supportive measures, including empiric antimicrobials, pending infectious work-up. Continue diuretic therapy as tolerated by hemodynamics and renal function. Continue to wean FiO2 and PEEP to maintain oxygen saturations at or above 90%. Tube feeds will be started today. Continue appropriate ICU prophylaxis. 2. Decompensated heart failure/non-ST segment elevation [place]/chronic atrial fibrillation/coronary artery disease Cardiology is currently following to assist with medical management. Continue diuretic therapy. The patient will likely require cardiac catheterization in the near future. 3. Obesity/obstructive sleep apnea/hypothyroidism/hypertension/hyperlipidemia/diabetes mellitus Complicates care, management, recovery and prognosis. Continue sliding scale insulin coverage. Physical therapy to evaluate the patient once medically stabilized. Start tube feeds today per nutrition recommendations. TIME: 37 minutes of critical care time, independent of procedures, was spent addressing the patient's acute combined respiratory failure, decompensated heart failure, non-ST segment elevation [place], review of all data and collaboration with the care team. [id number]) [phone] [id number] Critical care first hour
[2019-12-31 06:37] LABS: VBG Oxygen Content 25 mmol/L (23-33)
--- NOTE | 2019-12-31 06:55 | NURSING ---
Pt's Leigh Ann returned call. Informed that pt. needed to be placed on the ventilator this morning. All questions answered. Informed of rounds at 930 and that the nurse can call her to participate and have questions answered by physician.
[2019-12-31 07:15] LABS: Bedside Glucose 452 mg/dL (70-110)
[2019-12-31 07:15] LABS: Bedside Glucose 416 mg/dL (70-110)
[2019-12-31 07:21] LABS: M R Staph aureus DNA By PCR Negative (Negative); Probe Check PASS; Specimen Processing Control PASS
[2019-12-31] MEDS: Aspirin 81 MG TAB.CHEW GT (08:47)
[2019-12-31] MEDS: Spironolactone 25 MG Tablet GT (08:47)
--- NOTE | 2019-12-31 08:57 | CON.PCM_ITS ---
Reason for Consult Date of Consultation: 12/31/19 Reason for Consultation: Chest discomfort History of Present Illness: The patient is a 79 year old M who presented to the emergency room complaining of chest discomfort. He had recently been seen in the office last week. He does have a history of coronary artery disease status post angioplasty and stenting of his right coronary artery in 2002, 2004, and PCI most recently in 2016. He also has a history of persistent atrial fibrillation, hypertension, hyperlipidemia, chronic kidney disease and obstructive sleep apnea on BiPAP with oxygen therapy and diabetes. He reports had at least 2 episodes of chest discomfort with minimal activity within the last week or 2. However he was able to walk to parking lot without having any discomfort. On at least one occasion he took a sublingual nitroglycerin. He describes this as a chest burning. There was no radiation of the above. No diaphoresis dizziness near syncope or syncope was noted. He has lost a significant amount of weight. He was scheduled to undergo a stress test as an outpatient especially in light of his chronic renal insufficiency to see whether it could be medically managed and to election judge the extent of the ischemia. He however presented with chest discomfort and was admitted through the emergency room. Overnight he apparently got more short of breath and required to be intubated. His oxygen requirements have improved. His cardiac troponin enzymes were noted to be significantly abnormal suggesting a non-ST elevation myocardial infarction as well as equivocal EKG changes. Past Medical History Allergies/Adverse Reactions: Allergies Penicillins Adverse Reaction (Severe, Verified 12/30/19 20:27) Swelling Home Medications: Ambulatory Orders Medication Instructions Recorded Aspirin [Adult Low Dose Aspirin EC] 81 mg PO DAILY 07/17/15 Nitroglycerin (INPATIENT USE) 0.4 mg SUBLINGUAL Q5M PRN 07/17/15 [Nitrostat] sodium bicarbonate 650 mg tablet 650 mg PO .q day tab 07/29/17 blood sugar diagnostic See Dose Instructions .ROUTE 08/18/17 .MEDSUPPLY #20 ea insulin syringe-needle U-100 04/26 See Dose Instructions .ROUTE 10/24/17 mL 31 gauge x 15/64 .MEDSUPPLY #100 ea metoprolol succinate 100 mg 100 mg PO DAILY #90 tab 05/29/19 tablet,extended release 24 hr lovastatin 40 mg tablet 40 mg PO DAILY #90 tab 07/10/19 warfarin 5 mg tablet 5 mg PO .COMPLEX #180 tab 07/10/19 amlodipine 10 mg tablet 10 mg PO QDAY #90 tab 07/18/19 benazepril 20 mg tablet 20 mg PO QDAY #90 tab 07/18/19 furosemide 40 mg tablet 40 mg PO DAILY tab 08/29/19 levothyroxine 75 mcg tablet 75 mcg PO DAILY 09/14/19 clopidogrel 75 mg tablet 75 mg PO DAILY 12/20/19 Furosemide [Lasix] 40 mg PO MOWEFR 12/30/19 Isosorbide Mononitrate [Isosorbide 30 mg PO DAILY 12/30/19 Mononitrate ER] Spironolactone 25 mg PO MOWEFR 12/30/19 Insulin NPH Human [Humulin N (Bkc)] 28 units SUBCUT QHS 12/31/19 Insulin NPH Human [Humulin N (Bkc)] 30 units SUBCUT DAILY@0730 12/31/19 Past Medical History (Chronic Problems): Chronic Problems (Last Reviewed 12/31/19 @ 00:[address] 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 Ayaan Duque MD) Father CAD (coronary artery disease) Embolism Mother Kidney disease Lives: Spouse/ Significant Other Smoking Status: Former smoker Alcohol: None Drugs: None Review of Systems - Review of Systems General: Denies: Fever, Night Sweats, Fatigue HEENT: Denies: Vision Change Cardiovascular: Reports: Chest Discomfort, Chest Discomfort at Rest, Chest Discomfort with Exertion. Denies: Shortness of Breath, Orthopnea, PND, Peripheral Edema, Palpitations, Lightheadedness, Dizziness, Near Syncope, Syn cope Respiratory: Denies: Cough, Sputum Production, Hemoptysis Gastrointestinal: Denies: Hematemesis, Hematochezia, Melena Genitourinary: Denies: Dysuria, Hematuria Skin: Denies: Rash Neurological: Denies: Dizziness Psychiatric: Denies: Anxiety Endocrine: Denies: Heat Intolerance Objective: Vital Signs Temp Pulse Resp BP Pulse Ox 97.5 F L 78 16 100/53 L 95 12/31/19 07:00 12/31/19 08:00 12/31/19 08:00 12/31/19 08:00 12/31/19 08:00 Oxygen Flow Rate (L/min) 4 Oxygen Delivery Method Mechanical Ventilator Weight: 268 lb 4.841 oz Body Mass Index (BMI) 40.8 Intake and Output for Last 24 Hours 12/29/19 12/30/19 12/31/19 23:59 23:59 23:59 Intake Total 50 / 50 359.61 / 359.61 Output Total 250 / 250 Balance 50 / 50 109.61 / 109.61 12/30/19 20:44: WBC 10.9, RBC 4.45 L, Hgb 11.1 L, Hct 35.8 L, MCV 80.4, MCH 24.9 L, MCHC 31.0 L, Plt Count 206, MPV 10.4, Immature Gran % (Auto) 0.600, Neut % (Auto) 75.1 H, Lymph % (Auto) 13.7 L, [place] % (Auto) 6.9, Eos % (Auto) 3.1, Baso % (Auto) 0.6, Absolute Neuts (auto) 8.2 H, Nucleated RBC % 0 12/30/19 20:44: PT 20.8 H, INR 1.9 12/30/19 20:44: Sodium 140, Potassium 3.3 L, Chloride 107, Carbon Dioxide 24.0, Anion Gap 9, BUN 32 H, Creatinine 2.43 H, Est GFR (MDRD) Af Amer 33 L, Est GFR (MDRD) Non-Af 28 L, BUN/Creatinine Ratio 13.2, Glucose 270 H, Calcium 9.6, Troponin I < 0.015 12/30/19 20:44: B-Natriuretic Peptide 302.7 H 12/30/19 20:44: D-Dimer Quant (PE/DVT) 0.84 H* 12/30/19 20:44: Ferritin 69, Triglycerides 250 H 12/30/19 22:18: Lactic Acid 1.9 12/31/19 00:05: Troponin I 0.215 H 12/31/19 00:35: pH 7.25 L, Bicarbonate Actual 23.3, Base Excess -4 L, O2 Saturation 85 L, ABG pCO2 52.9 H, ABG pO2 58 L, Josue Test POS 12/31/19 02:13: VBG pH 7.27 L, VBG pO2 45 H, VBG HCO3 23, VBG O2 Sat (Calc) 74 H , VBG O2 Content 25, VBG Base Excess -4 L 12/31/19 03:05: WBC 18.7 H, RBC 4.44 L, Hgb 11.2 L, Hct 37.0 L, MCV 83.3, MCH 25.2 L, MCHC 30.3 L, Plt Count 261, MPV 10.1, Immature Gran % (Auto) 0.700, Neut % (Auto) 92.7 H, Lymph % (Auto) 3.0 L, [place] % (Auto) 3.2, Eos % (Auto) 0.1, Baso % (Auto) 0.3, Absolute Neuts (auto) 17.4 H, Nucleated RBC % 0 12/31/19 03:05: Triglycerides 109, Cholesterol 126, LDL Cholesterol 57, VLDL Cholesterol 22, HDL Cholesterol 47 12/31/19 03:05: Troponin I 1.990 H* 12/31/19 03:05: Triglycerides 109 12/31/19 03:05: Sodium 137, Potassium 4.3, Chloride 104, Carbon Dioxide 22.0, Anion Gap 11, BUN 37 H, Creatinine 2.92 H, Est GFR (MDRD) Af Amer 27 L, Est GFR (MDRD) Non-Af 22 L, BUN/Creatinine Ratio 12.7, Glucose 411 H, Calcium 8.8, Phosphorus 5.0 H, Magnesium 2.3 12/31/19 04:30: PT 21.5 H, INR 1.9 12/31/19 05:12: pH 7.28 L, Bicarbonate Actual 23.9, Base Excess -3 L, O2 Saturation 97, ABG pCO2 51.4 H, ABG pO2 100, Josue Test POS 09/07/20 07:40: Troponin I 18.400 H* Rhythm: EKG: ECHO: Pending Stress Test: Cardiac Cath: PCI: CT Surgery: Holter monitor: EPS: PPM: CXR: Chest CT Scan: Assessment/Plan Non-ST elevation myocardial infarction. * He presents with a non-ST elevation myocardial infarction. He does have renal dysfunction. At this particular time he is intubated. A echocardiogram be performed to assess his left ventricular function. He will ultimately need a left heart catheterization. This will probably be done with minimal contrast agent to preserve as much as possible his renal function. * I would likely wait for him to be extubated before the above is performed. * He does have known coronary artery disease as noted above with previous angioplasty and stenting of the right coronary artery 2. Hypertension * His blood pressure appears to be under good control at this time. The plan is to continue the current medical therapy without any major changes. * 3. Atrial fibrillation * Patient's had atrial fibrillation with a controlled ventricular response rate. He is on anticoagulation. I would recommend that we discontinue and put this on hold at this particular time until his cardiac catheterization is performed. * He will continue beta-carl for rate control. * 4. Shortness of breath * The above is likely secondary to congestive heart failure which may be diastolically mediated as well as obstructive sleep apnea. I do not previously see any evidence of obstructive lung disease in him. * * Thank you for allowing me to participate in the care of your patient. Please don't hesitate to call if any issues arise.
--- NOTE | 2019-12-31 09:06 | PCM.PROGNOTE ---
Patient Problems: Active and Suspected Problems (Last Reviewed 12/31/19 @ 00:[address] Ayaan Duque MD) Acute respiratory failure with hypoxia and hypercapnia (Acute) Acute tao-BO-weculiixh myocardial infarction (Acute) Pulmonary edema (Acute) CHF (congestive heart failure) (Acute) Subjective: Chief complaint: Follow-up after admission for acute hypoxic and hypercapnic respiratory failure due to pulmonary edema mediated by acute diastolic CHF, found to have acute non-ST elevation UT. Patient seen and examined. No acute events overnight. At this time, he is intubated, on sedation with IV propofol and fentanyl. No spontaneous eye opening, not following commands. He is on vent, FiO2 of 60% and PEEP of 20 which is very high. He is afebrile, heart rate is stable, blood pressure is borderline, on mechanical ventilation with high vent settings. - Physical Exam Vitals/I&O's: Vital Signs Temp Pulse Resp BP Pulse Ox 97.5 F L 78 16 100/53 L 95 12/31/19 07:00 12/31/19 08:00 12/31/19 08:00 12/31/19 08:00 12/31/19 08:00 Oxygen Flow Rate (L/min) 4 Oxygen Delivery Method Mechanical Ventilator Weight: 268 lb 4.841 oz Body Mass Index (BMI) 40.8 Intake and Output for Last 24 Hours 12/29/19 12/30/19 12/31/19 23:59 23:59 23:59 Intake Total 50 / 50 359.61 / 359.61 Output Total 250 / 250 Balance 50 / 50 109.61 / 109.61 General: - - Intubated, sedated, no spontaneous eye opening, not following commands. HEENT: Atraumatic, PERRLA, Normocephalic Oral: Moist Mucosa, No Gingival or Mucosal Lesions/ Ulcerations Neck: Supple, No JVD, Negative Carotid Bruits, Trachea Midline, Thyroid Normal Size and Texture Lungs: No wheeze, Diminished, Rales, Rhonchi, - - Decreased breath sounds bilateral, bilateral basilar crackles, occasional rhonchi. Cardiovascular: Normal S1, Normal S2, No murmurs, PMI Normal, Irregular Rate Abdomen: Bowel Sounds Present, Soft, Non Tender, Non-Distended, No Hepato-splenomegaly, Obese Extremities: No clubbing, No cyanosis, Edema Skin: No rashes, No breakdown Lymphatic: No Cervical, Supraclavicular, or Inguinal Adenopathy Neurological: - - Unable to assess, patient is currently sedated, on mechanical ventilation. Psych/Mental Status: - - Unable to assess, patient is sedated. Microbiology Past 72 Hours 12/31/19 04:05 Urine Catheter - Melendez Legionella Antigen - Final 12/31/19 04:05 Urine Catheter - Melendez Streptococcus pneumoniae Antigen (M - Final Laboratory Results 12/30/19 20:44: WBC 10.9, RBC 4.45 L, Hgb 11.1 L, Hct 35.8 L, MCV 80.4, MCH 24.9 L, MCHC 31.0 L, RDW Std Deviation 44.1 H, RDW Coeff of Moni 15.3 H, Plt Count 206, MPV 10.4, Immature Gran % (Auto) 0.600, Neut % (Auto) 75.1 H, Lymph % (Auto) 13.7 L, [place] % (Auto) 6.9, Eos % (Auto) 3.1, Baso % (Auto) 0.6, Absolute Neuts (auto) 8.2 H, Absolute Lymphs (auto) 1.49, Nucleated RBC % 0 12/30/19 20:44: PT 20.8 H, INR 1.9 12/30/19 20:44: Sodium 140, Potassium 3.3 L, Chloride 107, Carbon Dioxide 24.0, Anion Gap 9, BUN 32 H, Creatinine 2.43 H, Estim Creat Clear Calc 24.63, Est GFR (MDRD) Af Amer 33 L, Est GFR (MDRD) Non-Af 28 L, BUN/Creatinine Ratio 13.2, Glucose 270 H, Calcium 9.6, Troponin I < 0.015 12/30/19 20:44: B-Natriuretic Peptide 302.7 H 12/30/19 20:44: Fibrinogen 464 H, D-Dimer Quant (PE/DVT) 0.84 H* 12/30/19 20:44: Ferritin 69, Triglycerides 250 H 12/30/19 22:18: Lactic Acid 1.9 12/30/19 22:20: COVID-19 (MIKE) Negative 12/31/19 00:05: Procalcitonin 0.13 H 12/31/19 00:05: Troponin I 0.215 H 12/31/19 00:35: Specimen Type ART, Sample Site L RADIAL, pH 7.25 L, Bicarbonate Actual 23.3, Total CO2 25, Base Excess -4 L, O2 Saturation 85 L, O2 % 80, ABG pCO2 52.9 H, ABG pO2 58 L, Josue Test POS, Respiration Rate 12, O2 Delivery Device Bi Pap, EPAP 14, IPAP 20, Blood Gas Notified Whom MALINA GOMEZ, Blood Gas Notified Time 40 12/31/19 00:36: POC Glucose 452 H* 12/31/19 00:38: POC Glucose 416 H 12/31/19 02:13: Specimen Type AYAKA, Sample Site L Radial, O2 % 100, VBG pH 7.27 L, VBG pO2 45 H, VBG HCO3 23, VBG O2 Sat (Calc) 74 H, VBG O2 Content 25, VBG Base Excess -4 L, POC Mix VBG pCO2 Pt Tmp 50.6, O2 Delivery Device BiPAP, EPAP 16, IPAP 24, Blood Gas Notified Whom MALINA GOMEZ, Blood Gas Notified Time 213 12/31/19 03:05: WBC 18.7 H, RBC 4.44 L, Hgb 11.2 L, Hct 37.0 L, MCV 83.3, MCH 25.2 L, MCHC 30.3 L, RDW Std Deviation 46.3 H, RDW Coeff of Moni 15.2 H, Plt Count 261, MPV 10.1, Immature Gran % (Auto) 0.700, Neut % (Auto) 92.7 H, Lymph % (Auto) 3.0 L, [place] % (Auto) 3.2, Eos % (Auto) 0.1, Baso % (Auto) 0.3, Absolute Neuts (auto) 17.4 H, Absolute Lymphs (auto) 0.57 L, Nucleated RBC % 0, Differential Comment SCANNED 12/31/19 03:05: Triglycerides 109, Cholesterol 126, LDL Cholesterol 57, VLDL Cholesterol 22, HDL Cholesterol 47 12/31/19 03:05: Troponin I 1.990 H* 12/31/19 03:05: Total Creatine Kinase 270, Triglycerides 109 12/31/19 03:05: Sodium 137, Potassium 4.3, Chloride 104, Carbon Dioxide 22.0, Anion Gap 11, BUN 37 H, Creatinine 2.92 H, Estim Creat Clear Calc 20.50, Est GFR (MDRD) Af Amer 27 L, Est GFR (MDRD) Non-Af 22 L, BUN/Creatinine Ratio 12.7, Glucose 411 H, Calcium 8.8, Phosphorus 5.0 H, Magnesium 2.3 12/31/19 04:30: PT 21.5 H, INR 1.9 12/31/19 04:44: POC Glucose 377 H 12/31/19 04:54: MRSA (PCR) Negative 12/31/19 05:12: Specimen Type ART, Sample Site L RADIAL, pH 7.28 L, Bicarbonate Actual 23.9, Total CO2 26, Base Excess -3 L, O2 Saturation 97, O2 % 80, ABG pCO2 51.4 H, ABG pO2 100, Josue Test POS, Respiration Rate 14, O2 Delivery Device Vent, Vent Mode A-C, Tidal Volume 500, POC PEEP 20, Blood Gas Notified Whom [facility] , Blood Gas Notified Time 516 12/31/19 07:40: Troponin I 18.400 H* Clinical Impression(s) from Imaging Studies Chest X-Ray 12/30/19 20:45 IMPRESSION: Stable chronic increased interstitial markings in the lungs. No pulmonary infiltrates or pleural effusions. Electronically Signed: Francisco Mckeon, at 20:59 EDT Tel , Service support , Chest CT 12/30/19 21:29 IMPRESSION: Probable congestive failure with small right pleural effusion. Cannot exclude coexisting pneumonia. Electronically Signed: Nestor Corbett MD at 22:21 EDT , Service support , Chest X-Ray 12/31/19 03:05 IMPRESSION: Pneumonia. Possible pulmonary edema. There has been worsening since the previous study. Electronically Signed: Lissa Bishop, at 3:58 EDT Tel , Service support , KUB X-Ray 12/31/19 03:10 IMPRESSION: An NG tube is seen its tip is below the diaphragm is in good position. Electronically Signed: Lissa Bishop, at 3:59 EDT Tel , Service support , Current Medications Acetaminophen (Tylenol Liquid) 650 mg GT Q6H PRN PRN PRN Reason: Pain Score 1-10/Temp > 100.7 F Amlodipine Besylate (Norvasc) 10 mg GT DAILY [facility] Aspirin (Aspirin, Baby) 81 mg GT DAILY ANNA Last Admin: 12/31/19 08:47 Dose: 81 mg Documented by: Atorvastatin Calcium (Lipitor) 20 mg GT DAILY@2200 ANNA Chlorhexidine Gluconate () 15 ml PO BID ANNA Clopidogrel Bisulfate (Plavix) 75 mg GT DAILY [facility] Dextrose (D50w Syringe) 0 gm IV X1 PRN; Protocol PRN Reason: Hypoglycemia Famotidine (Pepcid) 20 mg GT BID ANNA Furosemide (Lasix) 40 mg IV BID@1000,1800 ANNA Glucagon () 1 mg IM .X1 PRN PRN Reason: Hypoglycemia Sodium Chloride () 250 mls @ 15 mls/hr IV .[id number] PRN PRN Reason: Saline Flush Sodium Chloride () 250 mls @ 15 mls/hr IV .[id number] PRN PRN Reason: Additional IVPB Infusion Propofol (Diprivan) 1,000 mg in 100 mls @ 7.302 mls/hr CONT INF .Q12H ANNA; Protocol Last Titration: 12/31/19 07:00 Dose: 0 mcg/kg/min, 0 mls/hr Documented by: Fentanyl Citrate 1,000 mcg/ (Sodium Chloride) 100 mls @ 2.5 mls/hr CONT INF .Q40H [facility]; Protocol Last Titration: 12/31/19 07:00 Dose: 75 mcg/hr, 7.5 mls/hr Documented by: Meropenem 1 gm/ Sodium (Chloride) 120 mls @ 33 mls/hr IV Q12 ANNA Vancomycin IV Pharmacy to Dose (1 ea/ Sodium Chloride) 500 mls @ 250 mls/hr IV PRN PRN; Protocol PRN Reason: Rx to Dose Vancomycin HCl 2,000 mg/ (Sodium Chloride) 540 mls @ 250 mls/hr IV X1 ONE Stop: 12/31/19 11:09 Insulin Glargine (Lantus (Bk)) 28 units SC BID [facility] Insulin Human Lispro (Humalog Kwikpen ([facility])) 0 unit SC Q4 [facility]; Protocol Last Admin: 12/31/19 04:51 Dose: 10 units Documented by: Levothyroxine Sodium (Synthroid) 75 mcg GT DAILY@0600 [facility] Last Admin: 12/31/19 06:34 Dose: Not Given Documented by: Ondansetron HCl (Zofran) 4 mg IV Q8H PRN PRN PRN Reason: NAUSEA/VOMITING Sodium Bicarbonate (Sodium Bicarbonate) 650 mg GT DAILY [facility] Sodium Chloride () 10 - 40 ml IV UD PRN PRN Reason: SALINE FLUSH Last Admin: 12/31/19 01:04 Dose: 30 ml Documented by: Spironolactone (Aldactone) 25 mg GT MoWeFr@0800 [facility] Last Admin: 12/31/19 08:47 Dose: 25 mg Documented by: Warfarin Sodium (Coumadin (Pbkc)) 7.5 mg GT DAILY@1700 [facility]; Protocol Medical Necessity - Tobacco Use Smoking Status: Former smoker Assessment/Plan All Active Problems (Last Reviewed 12/31/19 @ 00:[address] Ayaan Duque MD) Acute respiratory failure with hypoxia and hypercapnia (Acute) Acute vyk-PP-bwmynmdmr myocardial infarction (Acute) Pulmonary edema (Acute) CHF (congestive heart failure) (Acute) This is a 79 years old male patient presented to the emergency room because of chest pain, started having shortness of breath, became hypoxic in the emergency department, was started on BiPAP, found to have acute hypoxic and hypercapnic respiratory failure attributed to pulmonary edema and acute diastolic CHF and also found to have acute non-ST elevation UT. #1 acute hypoxic and hypercapnic respiratory failure: This is probably due to acute pulmonary edema and CHF. At this time, I doubt pneumonia. Chest x-ray and CT chest reviewed. Patient has been afebrile. Currently, he is on mechanical ventilation, on sedation. He is on IV meropenem and vancomycin as well as IV Lasix for diuresis. ABG from this morning revealed pH of 7.28, PCO2 of 51 and PO2 of 100. His PO2 was only 58 on first ABG. Critical care on the case. Plan: Maintain vent settings, wean off FiO2 and PEEP as tolerated. #2 acute pulmonary edema mediated by acute diastolic CHF: Again, I doubt pneumonia, chest x-ray and CT chest reviewed. COVID-19 PCR was negative. Patient is on IV Lasix and empiric IV antibiotics with vancomycin and meropenem. Patient had 2D echocardiogram on September, that showed normal ejection fraction. He had a history of CAD status post stents. Troponin is highly elevated. 2D echocardiogram ordered. Cardiology consulted. Plan: Increase IV Lasix to every 8 hours, continue meropenem, discontinue IV vancomycin. #3 acute non-ST elevation UT: EKG revealed A. fib, rate is controlled, minimal ST segment depression on leads V4, V5 and V6, no acute ST elevation. Troponin as high as 18.4. Patient is on aspirin, Plavix, statins. Cardiology consulted, 2D echocardiogram ordered. Plan for cardiac catheterization when patient stable. #4 chronic atrial fibrillation: At this time, rate is controlled. Currently, he is not on any medication for rate control. Patient was on metoprolol for rate control at home which is on hold now. He was on Coumadin, held, INR is 1.9. #5 CAD status post stents: EKG reviewed as above, troponin is elevated. Plan for cardiac catheterization, continue aspirin, Plavix and statins. Cardiology on the case. #6 acute kidney injury on top of chronic kidney disease stage III: Baseline creatinine has been around 2 to 2.5 mg/dL, today's creatinine is 2.92, it is above baseline. GFR has been in the high 20s up to 30s and 40s. Plan to avoid nephrotoxic drugs, expect creatinine to go up with IV diuresis, plan to monitor. #7 hypertension: Currently blood pressure is maintained, borderline. Metoprolol and nitrate on hold, on Norvasc which will also may need to be held. Plan to monitor, so far no need for vasopressors. #8 type 2 diabetes mellitus: Blood sugars uncontrolled, and the range of 300-400. He is on Lantus twice daily as well as sliding scale. #9 hypothyroidism: Continue levothyroxine. #10 hyperlipidemia: Continue statins. #11 CODE STATUS: Full code. #12 DVT prophylaxis: SCDs. This note was generated with [employer] software. It may contain incorrect words, spelling, and punctuation that were not noted in checking the note before signing. Inpatient E&M: 48867 Subs Hosp L3
[2019-12-31] MEDS: Famotidine 20 MG Tablet GT ×2 (10:23→20:16)
[2019-12-31] MEDS: Clopidogrel Bisulfate 75 MG Tablet GT (10:23)
[2019-12-31] MEDS: Chlorhexidine 15 ML PO ×2 (10:24→20:19)
[2019-12-31] MEDS: Sodium Bicarbonate 650 MG Tablet GT (10:25)
[2019-12-31 10:35] LABS: Bedside Glucose 198 mg/dL (70-110)
--- NOTE | 2019-12-31 12:59 | NT.THERAPY_ITS ---
Nutrition Therapy Report - History Nutrition Services has been consulted to:: Manage enteral nutrition Current diet / nutrition support order:: NPO - Anthropometric Measurements Height:: 5 ft 8 in Weight:: 121.7 kg Body Mass Index (BMI):: 40.8 - Relevant Labs Relevant Labs:: WBC 18.7 K/mm3 (4.4-11.0) H 12/31/19 03:05 RBC 4.44 M/mm3 (4.6-6.2) L 12/31/19 03:05 Hgb 11.2 g/dL (13.0-16.5) L 12/31/19 03:05 Hct 37.0 % (40-54) L 12/31/19 03:05 MCH 25.2 pg (27.0-32.0) L 12/31/19 03:05 MCHC 30.3 g/dL (32-36) L 12/31/19 03:05 RDW Std Deviation 46.3 fl (35.1-43.9) H 12/31/19 03:05 RDW Coeff of Moni 15.2 % (11.6-14.6) H 12/31/19 03:05 Neut % (Auto) 92.7 % (47-70) H 12/31/19 03:05 Lymph % (Auto) 3.0 % (19-41) L 12/31/19 03:05 Absolute Neuts (auto) 17.4 X10^3/uL (2.0-7.7) H 12/31/19 03:05 Absolute Lymphs (auto) 0.57 X10^3/uL (0.83-4.51) L 12/31/19 03:05 PT 21.5 SECONDS (11.7-14.9) H 12/31/19 04:30 Fibrinogen 464 mg/dl (203-444) H 12/30/19 20:44 D-Dimer Quant (PE/DVT) 0.84 FEU/ug/m (0.27-0.49) H* 12/30/19 20:44 Potassium 3.3 mmol/L (3.5-5.1) L 12/30/19 20:44 BUN 37 mg/dL (7-18) H 12/31/19 03:05 Creatinine 2.92 mg/dL (0.70-1.30) H 12/31/19 03:05 Est GFR (MDRD) Af Amer 27 mL/min (>60) L 12/31/19 03:05 Est GFR (MDRD) Non-Af 22 mL/min (>60) L 12/31/19 03:05 Glucose 411 mg/dL (74-106) H 12/31/19 03:05 Phosphorus 5.0 mg/dL (2.5-4.9) H 12/31/19 03:05 Troponin I 18.400 ng/mL (<0.045) H* 12/31/19 07:40 B-Natriuretic Peptide 302.7 pg/mL (0-100) H 12/30/19 20:44 Triglycerides 250 mg/dL (-199) H 12/30/19 20:44 Procalcitonin 0.13 ng/mL (0.00-0.09) H 12/31/19 00:05 - Assessment Food / Nutrition-Related History:: Pt reports UBW~265 lbs and denies recent wt loss; 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 BL ankles 1+ pitting edema noted. HgbA1C 5.3% (10/23/2019) indicates good glycemic control--pt seeks diet counseling with out- pt RD at [facility]. Pt currently intubated and OK to start TF support per Dr. Reyes. - Nutrition Diagnosis Problem / Etiology / Signs & Symptoms (PES):: Inadequate oral intake r/t intubation for resp failure as evidenced by NPO status and need for TF support. Obesity grade 3 r/t predicted excessive kcal intake as evidenced by BMI 40.8. Evidence of Malnutrition Exists:: No - Nutrition Intervention Nutrition Prescription:: Estimated Nutrition Needs~[id number] kcal and ~80-100 gm protein/day - Food / Nutrient Delivery Interventions Summary of nutrition intervention:: Will start TF support with Vital AF 1.2 Wilbur as pt is intubated at this time and OG tube intact. Nutrition support ordered as / adjusted to:: Will start TF with Vital AF 1.2 Wilbur @ 20 ml/hr and increase as tolerated by 10 ml/hr Q 6-8 hours to goal rate 50 ml/hr. Flush with 120 ml free water Q 6 hours. TF at goal rate and water flushes will provide 1440 kcal, 90 gm protein and 1453 ml free water per day. Nutrition education provided?: No - MNT Monitoring Further MNT monitoring and evaluation required?: Yes MNT Follow-up in:: 1-2 days
[2019-12-31 15:21] LABS: Bedside Glucose 116 mg/dL (70-110)
[2019-12-31] MEDS: Furosemide 40 MG/4 ML Vial IV ×2 (16:03→20:16)
[2019-12-31] MEDS: Vital AF 1.2 Cal Liquid 1,000 ML 50 ML GT (16:03)
[2019-12-31 17:31] LABS: Bedside Glucose 141 mg/dL (70-110)
--- NOTE | 2019-12-31 18:01 | PCM.RX.CS ---
Consult Pharmacy has been consulted to manage selected antiobiotic: Vancomycin Type of Consult: New start Suspected Infection: Pneumonia Prior Doses of Antibiotics Received/Current Regimen: Received 2gm iv x 1 on 12.31.19. Labs: Sodium 137 mmol/L (136-145) 12/31/19 03:05 Potassium 4.3 mmol/L (3.5-5.1) 12/31/19 03:05 Chloride 104 mmol/L (98-107) 12/31/19 03:05 Carbon Dioxide 22.0 mmol/L (21.0-32.0) 12/31/19 03:05 Anion Gap 11 (5-15) 12/31/19 03:05 BUN 37 mg/dL (7-18) H 12/31/19 03:05 Creatinine 2.92 mg/dL (0.70-1.30) H 12/31/19 03:05 Est GFR (MDRD) Af Amer 27 mL/min (>60) L 12/31/19 03:05 Est GFR (MDRD) Non-Af 22 mL/min (>60) L 12/31/19 03:05 BUN/Creatinine Ratio 12.7 RATIO (-20) 12/31/19 03:05 Glucose 411 mg/dL (74-106) H 12/31/19 03:05 Microbiology: Microbiology 12/31/19 04:05 Urine Catheter - Melendez Legionella Antigen - Final 12/31/19 04:05 Urine Catheter - Melendez Streptococcus pneumoniae Antigen (M - Final Weight used for dosin.7 kg Estimated Creatinine Clearance: ~20ml/min Goal Trough: 15-20 mcg/mL Pharmacy Plan for Drug Dosing: Renal function reviewed. Due to Cr 2.92 will not give any further dosing at this time. Random level ordered for 01.01.20 in AM. Depending on level, will determine further dosing at that time. Pharmacy Service will continue to monitor and adjust dosing as required. Follow-Up Labs: Trough Other - random level 01.01.20 @0844
[2019-12-31] MEDS: Atorvastatin Calcium 20 MG Tablet GT (20:16)
[2019-12-31 22:16] LABS: Bedside Glucose 152 mg/dL (70-110)
[2020-01-01] VITALS (40 sets, daily range): BP systolic 111–155; BP diastolic 47–89; PULSE 75–115; RESP 11–26; TEMP 36.9–37.4; O2SAT 90–97
[2020-01-01] MEDS: Insulin Lispro 100 UNIT/ML INSULN.PEN SC ×6 (01:42→22:19)
[2020-01-01 04:46] LABS: Absolute Lymphocyte Count 0.95 X10^3/uL (0.83-4.51); Absolute Neutrophil Count 9.6 X10^3/uL (2.0-7.7); Basophil# 0.04 X10^3/uL; Basophil% 0.3 % (0-1); Eosinophil# 0.04 X10^3/uL; Eosinophils% 0.3 % (0-5); Hematocrit 34.4 % (40-54); Hemoglobin 10.4 g/dL (13.0-16.5); Lymphocyte # 0.95 X10^3/ul (4.0); Lymphocyte % 8.2 % (19-41); Mean Corp Hgb Conc 30.2 g/dL (32-36); Mean Corpuscular Volume 82.7 fL (80-94); Mean Platelet Vol. 9.9 fl (6.2-12.0); Monocyte# 0.92 X10^3/uL; NRBC Flagged by Analyzer 0 % (0-5); Neutrophil # 9.55 X10^3/uL (2.7-7.7); Neutrophil % 82.6 % (47-70); Platelet Count 151 K/mm3 (150-450); RBC Distribution Width CV 15.8 % (11.6-14.6); RBC Distribution Width SD 47.1 fl (35.1-43.9); Red Blood Count 4.16 M/mm3 (4.6-6.2); White Blood Count 11.6 K/mm3 (4.4-11.0)
[2020-01-01 04:56] LABS: International Normalized Ratio 2.5; Prothrombin Time (Protime)PT. 26.6 SECONDS (11.7-14.9)
[2020-01-01 05:07] LABS: Anion Gap 6 (5-15); BUN 48 mg/dL (7-18); BUN/Creat Ratio 14.8 RATIO (10-20); Calcium,Total 8.8 mg/dL (8.5-10.1); Chloride 107 mmol/L (98-107); Creatinine, Serum 3.25 mg/dL (0.70-1.30); EST Glomerular Filtration Rate 20 mL/min (>60); Est Glom Filt Rate - Afr Amer 24 mL/min (>60); Estimated Creatinine Clearance 18.42 ml/min; Glucose 165 mg/dL (74-106); Sodium Level 140 mmol/L (136-145)
[2020-01-01 06:01] LABS: Bedside Glucose 170 mg/dL (70-110)
--- NOTE | 2020-01-01 06:05 | PN_ITS ---
Subjective: The patient was seen and examined at the bedside this morning. Events from the last 24 hours have been reviewed. The patient is currently afebrile, hemodynamically stable and maintaining appropriate oxygen saturations on assist control mode mechanical ventilation with an FiO2 requirement of 35%. Creatinine has increased this morning to 3.25. The patient is currently documented to be overall net +320 mL's for the hospital admission. The patient failed his spontaneous breathing trial this morning after he desaturated into the 80s. Objective: The patient's most recent lab work, culture data and imaging studies have all been personally reviewed. Respiratory viral panel was negative. Strep and urine Legionella antigens were negative. Blood cultures are pending. General: - - Remains intubated, sedated and mechanically ventilated. No ventilator dyssynchrony noted. HEENT: Atraumatic, PERRLA, Normocephalic Oral: No Gingival or Mucosal Lesions/ Ulcerations, - - Endotracheal and OG tubes in place Neck: Supple, No Nodes, Trachea Midline Lungs: Diminished Cardiovascular: Normal S1, Normal S2, No murmurs, Irregular Rate Abdomen: Bowel Sounds Present, Soft, Non Tender, Obese Extremities: No clubbing, No cyanosis, Edema Skin: - - No significant change from previous Musculoskeletal: No Muscle Wasting Lymphatic: No Cervical, Supraclavicular, or Inguinal Adenopathy Neurological: - - No focal neurological deficits. Currently sedated on the ventilator. Vital Signs Temp Pulse Resp BP Pulse Ox 99.0 F 90 17 150/62 H 92 01/01/20 04:00 01/01/20 04:51 01/01/20 04:51 01/01/20 04:00 01/01/20 04:51 Oxygen Flow Rate (L/min) 4 Oxygen Delivery Method Mechanical Ventilator Weight: 265 lb 3.457 oz Body Mass Index (BMI) 40.8 Intake and Output for Last 24 Hours 12/30/19 12/31/19 01/01/20 23:59 23:59 23:59 Intake Total 50 / 50 1139.61 / 1267.11 281.26 / 281.26 Output Total 900 / 1150 250 / 250 Balance 50 / 50 239.61 / 117.11 31.26 / 31.26 Labs (Last 48 Hours) 12/30/19 12/30/19 12/30/19 20:44 20:44 20:44 WBC 10.9 RBC 4.45 L Hgb 11.1 L Hct 35.8 L MCV 80.4 MCH 24.9 L MCHC 31.0 L RDW Std Deviation 44.1 H RDW Coeff of Moni 15.3 H Plt Count 206 MPV 10.4 Immature Gran % (Auto) 0.600 Neut % (Auto) 75.1 H Lymph % (Auto) 13.7 L [place] % (Auto) 6.9 Eos % (Auto) 3.1 Baso % (Auto) 0.6 Absolute Neuts (auto) 8.2 H Absolute Lymphs (auto) 1.49 Nucleated RBC % 0 Differential Comment PT 20.8 H INR 1.9 Fibrinogen D-Dimer Quant (PE/DVT) Specimen Type Sample Site pH Bicarbonate Actual Total CO2 Base Excess O2 Saturation O2 % ABG pCO2 ABG pO2 Josue Test VBG pH VBG pO2 VBG HCO3 VBG O2 Sat (Calc) VBG O2 Content VBG Base Excess POC Mix VBG pCO2 Pt Tmp Respiration Rate O2 Delivery Device Vent Mode Tidal Volume POC PEEP EPAP IPAP Blood Gas Notified Whom Blood Gas Notified Time Sodium 140 Potassium 3.3 L Chloride 107 Carbon Dioxide 24.0 Anion Gap 9 BUN 32 H Creatinine 2.43 H Estim Creat Clear Calc 24.63 Est GFR (MDRD) Af Amer 33 L Est GFR (MDRD) Non-Af 28 L BUN/Creatinine Ratio 13.2 Glucose 270 H Lactic Acid Calcium 9.6 Phosphorus Magnesium Ferritin Total Creatine Kinase Troponin I < 0.015 B-Natriuretic Peptide Triglycerides Cholesterol LDL Cholesterol VLDL Cholesterol HDL Cholesterol Procalcitonin COVID-19 (MIKE) MRSA (PCR) POC Glucose 12/30/19 12/30/19 12/30/19 20:44 20:44 20:44 WBC RBC Hgb Hct MCV MCH MCHC RDW Std Deviation RDW Coeff of Moni Plt Count MPV Immature Gran % (Auto) Neut % (Auto) Lymph % (Auto) [place] % (Auto) Eos % (Auto) Baso % (Auto) Absolute Neuts (auto) Absolute Lymphs (auto) Nucleated RBC % Differential Comment PT INR Fibrinogen 464 H D-Dimer Quant (PE/DVT) 0.84 H* Specimen Type Sample Site pH Bicarbonate Actual Total CO2 Base Excess O2 Saturation O2 % ABG pCO2 ABG pO2 Josue Test VBG pH VBG pO2 VBG HCO3 VBG O2 Sat (Calc) VBG O2 Content VBG Base Excess POC Mix VBG pCO2 Pt Tmp Respiration Rate O2 Delivery Device Vent Mode Tidal Volume POC PEEP EPAP IPAP Blood Gas Notified Whom Blood Gas Notified Time Sodium Potassium Chloride Carbon Dioxide Anion Gap BUN Creatinine Estim Creat Clear Calc Est GFR (MDRD) Af Amer Est GFR (MDRD) Non-Af BUN/Creatinine Ratio Glucose Lactic Acid Calcium Phosphorus Magnesium Ferritin 69 Total Creatine Kinase Troponin I B-Natriuretic Peptide 302.7 H Triglycerides 250 H Cholesterol LDL Cholesterol VLDL Cholesterol HDL Cholesterol Procalcitonin COVID-19 (MIKE) MRSA (PCR) POC Glucose 12/30/19 12/30/19 12/31/19 22:18 22:20 00:05 WBC RBC Hgb Hct MCV MCH MCHC RDW Std Deviation RDW Coeff of Moni Plt Count MPV Immature Gran % (Auto) Neut % (Auto) Lymph % (Auto) [place] % (Auto) Eos % (Auto) Baso % (Auto) Absolute Neuts (auto) Absolute Lymphs (auto) Nucleated RBC % Differential Comment PT INR Fibrinogen D-Dimer Quant (PE/DVT) Specimen Type Sample Site pH Bicarbonate Actual Total CO2 Base Excess O2 Saturation O2 % ABG pCO2 ABG pO2 Josue Test VBG pH VBG pO2 VBG HCO3 VBG O2 Sat (Calc) VBG O2 Content VBG Base Excess POC Mix VBG pCO2 Pt Tmp Respiration Rate O2 Delivery Device Vent Mode Tidal Volume POC PEEP EPAP IPAP Blood Gas Notified Whom Blood Gas Notified Time Sodium Potassium Chloride Carbon Dioxide Anion Gap BUN Creatinine Estim Creat Clear Calc Est GFR (MDRD) Af Amer Est GFR (MDRD) Non-Af BUN/Creatinine Ratio Glucose Lactic Acid 1.9 Calcium Phosphorus Magnesium Ferritin Total Creatine Kinase Troponin I B-Natriuretic Peptide Triglycerides Cholesterol LDL Cholesterol VLDL Cholesterol HDL Cholesterol Procalcitonin 0.13 H COVID-19 (MIKE) Negative MRSA (PCR) POC Glucose 12/31/19 12/31/19 12/31/19 00:05 00:35 00:36 WBC RBC Hgb Hct MCV MCH MCHC RDW Std Deviation RDW Coeff of Moni Plt Count MPV Immature Gran % (Auto) Neut % (Auto) Lymph % (Auto) [place] % (Auto) Eos % (Auto) Baso % (Auto) Absolute Neuts (auto) Absolute Lymphs (auto) Nucleated RBC % Differential Comment PT INR Fibrinogen D-Dimer Quant (PE/DVT) Specimen Type ART Sample Site L RADIAL pH 7.25 L Bicarbonate Actual 23.3 Total CO2 25 Base Excess -4 L O2 Saturation 85 L O2 % 80 ABG pCO2 52.9 H ABG pO2 58 L Josue Test POS VBG pH VBG pO2 VBG HCO3 VBG O2 Sat (Calc) VBG O2 Content VBG Base Excess POC Mix VBG pCO2 Pt Tmp Respiration Rate 12 O2 Delivery Device Bi Pap Vent Mode Tidal Volume POC PEEP EPAP 14 IPAP 20 Blood Gas Notified Whom [facility] Blood Gas Notified Time 40 Sodium Potassium Chloride Carbon Dioxide Anion Gap BUN Creatinine Estim Creat Clear Calc Est GFR (MDRD) Af Amer Est GFR (MDRD) Non-Af BUN/Creatinine Ratio Glucose Lactic Acid Calcium Phosphorus Magnesium Ferritin Total Creatine Kinase Troponin I 0.215 H B-Natriuretic Peptide Triglycerides Cholesterol LDL Cholesterol VLDL Cholesterol HDL Cholesterol Procalcitonin COVID-19 (MIKE) MRSA (PCR) POC Glucose 452 H* 12/31/19 12/31/19 12/31/19 00:38 02:13 03:05 WBC 18.7 H RBC 4.44 L Hgb 11.2 L Hct 37.0 L MCV 83.3 MCH 25.2 L MCHC 30.3 L RDW Std Deviation 46.3 H RDW Coeff of Moni 15.2 H Plt Count 261 MPV 10.1 Immature Gran % (Auto) 0.700 Neut % (Auto) 92.7 H Lymph % (Auto) 3.0 L [place] % (Auto) 3.2 Eos % (Auto) 0.1 Baso % (Auto) 0.3 Absolute Neuts (auto) 17.4 H Absolute Lymphs (auto) 0.57 L Nucleated RBC % 0 Differential Comment SCANNED PT INR Fibrinogen D-Dimer Quant (PE/DVT) Specimen Type AYAKA Sample Site L Radial pH Bicarbonate Actual Total CO2 Base Excess O2 Saturation O2 % 100 ABG pCO2 ABG pO2 Ojsue Test VBG pH 7.27 L VBG pO2 45 H VBG HCO3 23 VBG O2 Sat (Calc) 74 H VBG O2 Content 25 VBG Base Excess -4 L POC Mix VBG pCO2 Pt Tmp 50.6 Respiration Rate O2 Delivery Device BiPAP Vent Mode Tidal Volume POC PEEP EPAP 16 IPAP 24 Blood Gas Notified Whom [facility] Blood Gas Notified Time 213 Sodium Potassium Chloride Carbon Dioxide Anion Gap BUN Creatinine Estim Creat Clear Calc Est GFR (MDRD) Af Amer Est GFR (MDRD) Non-Af BUN/Creatinine Ratio Glucose Lactic Acid Calcium Phosphorus Magnesium Ferritin Total Creatine Kinase Troponin I B-Natriuretic Peptide Triglycerides Cholesterol LDL Cholesterol VLDL Cholesterol HDL Cholesterol Procalcitonin COVID-19 (MIKE) MRSA (PCR) POC Glucose 416 H 12/31/19 12/31/19 12/31/19 03:05 03:05 03:05 WBC RBC Hgb Hct MCV MCH MCHC RDW Std Deviation RDW Coeff of Moni Plt Count MPV Immature Gran % (Auto) Neut % (Auto) Lymph % (Auto) [place] % (Auto) Eos % (Auto) Baso % (Auto) Absolute Neuts (auto) Absolute Lymphs (auto) Nucleated RBC % Differential Comment PT INR Fibrinogen D-Dimer Quant (PE/DVT) Specimen Type Sample Site pH Bicarbonate Actual Total CO2 Base Excess O2 Saturation O2 % ABG pCO2 ABG pO2 Josue Test VBG pH VBG pO2 VBG HCO3 VBG O2 Sat (Calc) VBG O2 Content VBG Base Excess POC Mix VBG pCO2 Pt Tmp Respiration Rate O2 Delivery Device Vent Mode Tidal Volume POC PEEP EPAP IPAP Blood Gas Notified Whom Blood Gas Notified Time Sodium Potassium Chloride Carbon Dioxide Anion Gap BUN Creatinine Estim Creat Clear Calc Est GFR (MDRD) Af Amer Est GFR (MDRD) Non-Af BUN/Creatinine Ratio Glucose Lactic Acid Calcium Phosphorus Magnesium Ferritin Total Creatine Kinase 270 Troponin I 1.990 H* B-Natriuretic Peptide Triglycerides 109 109 Cholesterol 126 LDL Cholesterol 57 VLDL Cholesterol 22 HDL Cholesterol 47 Procalcitonin COVID-19 (MIKE) MRSA (PCR) POC Glucose 12/31/19 12/31/19 12/31/19 03:05 04:30 04:44 WBC RBC Hgb Hct MCV MCH MCHC RDW Std Deviation RDW Coeff of Moni Plt Count MPV Immature Gran % (Auto) Neut % (Auto) Lymph % (Auto) [place] % (Auto) Eos % (Auto) Baso % (Auto) Absolute Neuts (auto) Absolute Lymphs (auto) Nucleated RBC % Differential Comment PT 21.5 H INR 1.9 Fibrinogen D-Dimer Quant (PE/DVT) Specimen Type Sample Site pH Bicarbonate Actual Total CO2 Base Excess O2 Saturation O2 % ABG pCO2 ABG pO2 Josue Test VBG pH VBG pO2 VBG HCO3 VBG O2 Sat (Calc) VBG O2 Content VBG Base Excess POC Mix VBG pCO2 Pt Tmp Respiration Rate O2 Delivery Device Vent Mode Tidal Volume POC PEEP EPAP IPAP Blood Gas Notified Whom Blood Gas Notified Time Sodium 137 Potassium 4.3 Chloride 104 Carbon Dioxide 22.0 Anion Gap 11 BUN 37 H Creatinine 2.92 H Estim Creat Clear Calc 20.50 Est GFR (MDRD) Af Amer 27 L Est GFR (MDRD) Non-Af 22 L BUN/Creatinine Ratio 12.7 Glucose 411 H Lactic Acid Calcium 8.8 Phosphorus 5.0 H Magnesium 2.3 Ferritin Total Creatine Kinase Troponin I B-Natriuretic Peptide Triglycerides Cholesterol LDL Cholesterol VLDL Cholesterol HDL Cholesterol Procalcitonin COVID-19 (MIKE) MRSA (PCR) POC Glucose 377 H 12/31/19 12/31/19 12/31/19 04:54 05:12 07:40 WBC RBC Hgb Hct MCV MCH MCHC RDW Std Deviation RDW Coeff of Moni Plt Count MPV Immature Gran % (Auto) Neut % (Auto) Lymph % (Auto) [place] % (Auto) Eos % (Auto) Baso % (Auto) Absolute Neuts (auto) Absolute Lymphs (auto) Nucleated RBC % Differential Comment PT INR Fibrinogen D-Dimer Quant (PE/DVT) Specimen Type ART Sample Site L RADIAL pH 7.28 L Bicarbonate Actual 23.9 Total CO2 26 Base Excess -3 L O2 Saturation 97 O2 % 80 ABG pCO2 51.4 H ABG pO2 100 Josue Test POS VBG pH VBG pO2 VBG HCO3 VBG O2 Sat (Calc) VBG O2 Content VBG Base Excess POC Mix VBG pCO2 Pt Tmp Respiration Rate 14 O2 Delivery Device Vent Vent Mode A-C Tidal Volume 500 POC PEEP 20 EPAP IPAP Blood Gas Notified Whom HOSP MD Blood Gas Notified Time 516 Sodium Potassium Chloride Carbon Dioxide Anion Gap BUN Creatinine Estim Creat Clear Calc Est GFR (MDRD) Af Amer Est GFR (MDRD) Non-Af BUN/Creatinine Ratio Glucose Lactic Acid Calcium Phosphorus Magnesium Ferritin Total Creatine Kinase Troponin I 18.400 H* B-Natriuretic Peptide Triglycerides Cholesterol LDL Cholesterol VLDL Cholesterol HDL Cholesterol Procalcitonin COVID-19 (MIKE) MRSA (PCR) Negative POC Glucose 12/31/19 12/31/19 12/31/19 10:21 15:15 17:25 WBC RBC Hgb Hct MCV MCH MCHC RDW Std Deviation RDW Coeff of Moni Plt Count MPV Immature Gran % (Auto) Neut % (Auto) Lymph % (Auto) [place] % (Auto) Eos % (Auto) Baso % (Auto) Absolute Neuts (auto) Absolute Lymphs (auto) Nucleated RBC % Differential Comment PT INR Fibrinogen D-Dimer Quant (PE/DVT) Specimen Type Sample Site pH Bicarbonate Actual Total CO2 Base Excess O2 Saturation O2 % ABG pCO2 ABG pO2 Josue Test VBG pH VBG pO2 VBG HCO3 VBG O2 Sat (Calc) VBG O2 Content VBG Base Excess POC Mix VBG pCO2 Pt Tmp Respiration Rate O2 Delivery Device Vent Mode Tidal Volume POC PEEP EPAP IPAP Blood Gas Notified Whom Blood Gas Notified Time Sodium Potassium Chloride Carbon Dioxide Anion Gap BUN Creatinine Estim Creat Clear Calc Est GFR (MDRD) Af Amer Est GFR (MDRD) Non-Af BUN/Creatinine Ratio Glucose Lactic Acid Calcium Phosphorus Magnesium Ferritin Total Creatine Kinase Troponin I B-Natriuretic Peptide Triglycerides Cholesterol LDL Cholesterol VLDL Cholesterol HDL Cholesterol Procalcitonin COVID-19 (MIKE) MRSA (PCR) POC Glucose 198 H 116 H 141 H 12/31/19 01/01/20 01/01/20 21:52 01:40 04:35 WBC RBC Hgb Hct MCV MCH MCHC RDW Std Deviation RDW Coeff of Moni Plt Count MPV Immature Gran % (Auto) Neut % (Auto) Lymph % (Auto) [place] % (Auto) Eos % (Auto) Baso % (Auto) Absolute Neuts (auto) Absolute Lymphs (auto) Nucleated RBC % Differential Comment PT 26.6 H INR 2.5 Fibrinogen D-Dimer Quant (PE/DVT) Specimen Type Sample Site pH Bicarbonate Actual Total CO2 Base Excess O2 Saturation O2 % ABG pCO2 ABG pO2 Josue Test VBG pH VBG pO2 VBG HCO3 VBG O2 Sat (Calc) VBG O2 Content VBG Base Excess POC Mix VBG pCO2 Pt Tmp Respiration Rate O2 Delivery Device Vent Mode Tidal Volume POC PEEP EPAP IPAP Blood Gas Notified Whom Blood Gas Notified Time Sodium Potassium Chloride Carbon Dioxide Anion Gap BUN Creatinine Estim Creat Clear Calc Est GFR (MDRD) Af Amer Est GFR (MDRD) Non-Af BUN/Creatinine Ratio Glucose Lactic Acid Calcium Phosphorus Magnesium Ferritin Total Creatine Kinase Troponin I B-Natriuretic Peptide Triglycerides Cholesterol LDL Cholesterol VLDL Cholesterol HDL Cholesterol Procalcitonin COVID-19 (MIKE) MRSA (PCR) POC Glucose 152 H 170 H 01/01/20 01/01/20 04:35 04:35 WBC 11.6 H RBC 4.16 L Hgb 10.4 L Hct 34.4 L MCV 82.7 MCH 25.0 L MCHC 30.2 L RDW Std Deviation 47.1 H RDW Coeff of Moni 15.8 H Plt Count 151 MPV 9.9 Immature Gran % (Auto) 0.600 Neut % (Auto) 82.6 H Lymph % (Auto) 8.2 L [place] % (Auto) 8.0 Eos % (Auto) 0.3 Baso % (Auto) 0.3 Absolute Neuts (auto) 9.6 H Absolute Lymphs (auto) 0.95 Nucleated RBC % 0 Differential Comment PT INR Fibrinogen D-Dimer Quant (PE/DVT) Specimen Type Sample Site pH Bicarbonate Actual Total CO2 Base Excess O2 Saturation O2 % ABG pCO2 ABG pO2 Josue Test VBG pH VBG pO2 VBG HCO3 VBG O2 Sat (Calc) VBG O2 Content VBG Base Excess POC Mix VBG pCO2 Pt Tmp Respiration Rate O2 Delivery Device Vent Mode Tidal Volume POC PEEP EPAP IPAP Blood Gas Notified Whom Blood Gas Notified Time Sodium 140 Potassium 4.0 Chloride 107 Carbon Dioxide 27.0 Anion Gap 6 BUN 48 H Creatinine 3.25 H Estim Creat Clear Calc 18.42 Est GFR (MDRD) Af Amer 24 L Est GFR (MDRD) Non-Af 20 L BUN/Creatinine Ratio 14.8 Glucose 165 H Lactic Acid Calcium 8.8 Phosphorus Magnesium Ferritin Total Creatine Kinase Troponin I B-Natriuretic Peptide Triglycerides Cholesterol LDL Cholesterol VLDL Cholesterol HDL Cholesterol Procalcitonin COVID-19 (MIKE) MRSA (PCR) POC Glucose Microbiology 12/31/19 04:55 Mucosa - Nasopharyngeal Respiratory Panel (PCR) - Final 12/31/19 04:05 Urine Catheter - Melendez Legionella Antigen - Final 12/31/19 04:05 Urine Catheter - Melendez Streptococcus pneumoniae Antigen (M - Final Clinical Impression(s) from Imaging Studies Chest X-Ray 12/30/19 20:45 IMPRESSION: Stable chronic increased interstitial markings in the lungs. No pulmonary infiltrates or pleural effusions. Electronically Signed: Francisco Mckeon, at 20:59 EDT Tel , Service support , Chest CT 12/30/19 21:29 IMPRESSION: Probable congestive failure with small right pleural effusion. Cannot exclude coexisting pneumonia. Electronically Signed: Nestor Corbett MD at 22:21 EDT , Service support , Chest X-Ray 12/31/19 03:05 IMPRESSION: Pneumonia. Possible pulmonary edema. There has been worsening since the previous study. Electronically Signed: Lissa Bishop, at 3:58 EDT Tel , Service support , KUB X-Ray 12/31/19 03:10 IMPRESSION: An NG tube is seen its tip is below the diaphragm is in good position. Electronically Signed: Lissa Bishop, at 3:59 EDT Tel , Service support , Medical Necessity - Tobacco Use Smoking Status: Former smoker Assessment/Plan All Active Problems (Last Reviewed 12/31/19 @ 00:[address] Ayaan Duque MD) Acute respiratory failure with hypoxia and hypercapnia (Acute) Acute [id number] myocardial infarction (Acute 12/31/19) Pulmonary edema (Acute) CHF (congestive heart failure) (Acute) RECOMMENDATIONS: 1. Continue empiric antimicrobials. 2. Decrease Lasix to once daily, given worsening renal insufficiency. 3. Continue to wean FiO2 and PEEP to maintain oxygen saturations at or above 90%. 4. Continue tube feeds as tolerated. 5. Possible heart catheterization in the near future. Will defer to cardiology. 6. Continue Pepcid for GI prophylaxis. IMPRESSIONS: 1. Acute combined respiratory failure Likely multifactorial in etiology with acute decompensated heart failure and subsequent pulmonary edema, along with possible community-acquired pneumonia contributing. Plan to continue current supportive measures, including empiric antimicrobials. Continue diuretic therapy as tolerated by hemodynamics and renal function. Continue to wean FiO2 and PEEP to maintain oxygen saturations at or above 90%. Tube feeds will be continued. Continue appropriate ICU prophylaxis. Plan for repeat paired spontaneous awakening and breathing trials tomorrow morning. 2. Decompensated heart failure/non-ST segment elevation NC/chronic atrial fibrillation/coronary artery disease Cardiology is currently following to assist with medical management. Continue diuretic therapy. The patient will likely require cardiac catheterization in the near future. 3. Obesity/obstructive sleep apnea/hypothyroidism/hypertension/hyperlipidemia/diabetes mellitus Complicates care, management, recovery and prognosis. Continue sliding scale insulin coverage. Physical therapy to evaluate the patient once medically stabilized. Continue tube feeds. TIME: 35 minutes of critical care time, independent of procedures, was spent addressing the patient's acute combined respiratory failure, decompensated heart failure, non-ST segment elevation NC, review of all data and collaboration with the care team. [id number]) [phone] [id number] Critical care first hour
[2020-01-01] MEDS: Levothyroxine 75 MCG Tablet GT (06:38)
[2020-01-01] MEDS: Furosemide 40 MG/4 ML Vial IV (06:38)
[2020-01-01 06:56] LABS: Bedside Glucose 177 mg/dL (70-110)
--- NOTE | 2020-01-01 07:57 | PN.CARD_ITS ---
Subjectve: Patient seen and evaluated. Doing better on ventilator with weaning parameters. He is requiring less oxygen Objective: Vital Signs Temp Pulse Resp BP Pulse Ox 98.7 F 94 14 139/69 H 92 01/01/20 07:00 01/01/20 07:47 01/01/20 07:00 01/01/20 07:00 01/01/20 07:00 Oxygen Flow Rate (L/min) 4 Oxygen Delivery Method Mechanical Ventilator Weight: 265 lb 3.457 oz Body Mass Index (BMI) 40.8 Intake and Output for Last 24 Hours 12/30/19 12/31/19 01/01/20 23:59 23:59 23:59 Intake Total 50 / 50 1139.61 / 1267.11 793.16 / 793.16 Output Total 900 / 1150 790 / 790 Balance 50 / 50 239.61 / 117.11 3.16 / 3.16 General: Awake, Alert, Oriented x 3 HEENT: PERRL, EOMI, Sclera Non Icteric Neck: Supple, Good ROM, No Lymph Node Enlargement Lungs: Clear to auscultation Cardiovascular: Regular Rhythm, Normal S1, Normal S2, No Murmurs, No Rubs, No Gallops 12/31/19 07:40: Troponin I 18.400 H* 01/01/20 04:35: PT 26.6 H, INR 2.5 01/01/20 04:35: WBC 11.6 H, RBC 4.16 L, Hgb 10.4 L, Hct 34.4 L, MCV 82.7, MCH 25.0 L, MCHC 30.2 L, Plt Count 151, MPV 9.9, Immature Gran % (Auto) 0.600, Neut % (Auto) 82.6 H, Lymph % (Auto) 8.2 L, [place] % (Auto) 8.0, Eos % (Auto) 0.3, Baso % (Auto) 0.3, Absolute Neuts (auto) 9.6 H, Nucleated RBC % 0 01/01/20 04:35: Sodium 140, Potassium 4.0, Chloride 107, Carbon Dioxide 27.0, Anion Gap 6, BUN 48 H, Creatinine 3.25 H, Est GFR (MDRD) Af Amer 24 L, Est GFR (MDRD) Non-Af 20 L, BUN/Creatinine Ratio 14.8, Glucose 165 H, Calcium 8.8 Rhythm: EKG: ECHO: Stress Test: Cardiac Cath: PCI: CT Surgery: Holter monitor: EPS: PPM: CXR: Chest CT Scan: Medical Necessity - Tobacco Use Smoking Status: Former smoker Assessment/Plan Non-ST elevation myocardial infarction. * He presents with a non-ST elevation myocardial infarction. He does have renal dysfunction. At this particular time he is intubated. A echocardiogram suggested that his left ventricular function was mildly reduced with apical hypokinesis. He will ultimately need a left heart catheterization. This will probably be done with minimal contrast agent to preserve as much as possible his renal function. * I would likely wait for him to be extubated and for his INR to be better before the above is performed. * He does have known coronary artery disease as noted above with previous angioplasty and stenting of the right coronary artery 2. Hypertension * His blood pressure appears to be under good control at this time. The plan is to continue the current medical therapy without any major changes. * 3. Atrial fibrillation * Patient's had atrial fibrillation with a controlled ventricular response rate. He is on anticoagulation and this has been held. I would recommend that we discontinue and put this on hold at this particular time until his cardiac catheterization is performed. * He will continue beta-carl for rate control. * 4. Shortness of breath * The above is likely secondary to congestive heart failure which may be diastolically mediated as well as obstructive sleep apnea. I do not previously see any evidence of obstructive lung disease in him. * He is being diuresed with hopes of extubation in the next 24 hours * Thank you for allowing me to participate in the care of your patient. Please don't hesitate to call if any issues arise.
--- NOTE | 2020-01-01 08:20 | EKG12_ITS ---
Test Reason : DYSRHYTHMIA Blood Pressure : / mmHG Vent. Rate : 107 BPM Atrial Rate : 107 BPM P-R Int : 000 ms QRS Dur : 110 ms QT Int : 332 ms P-R-T Axes : 000 -15 119 degrees QTc Int : 443 ms Atrial fibrillation Inferior infarct , age undetermined Abnormal ECG Confirmed by PABLO GOMEZ, TATY ([id number]), editor magazine KIMMY SAWYER ([id number]) on 01/09/2020 11:37:29 AM Referred By: COLIN Confirmed By:TATY SHAH MD
[2020-01-01] MEDS: Aspirin 81 MG TAB.CHEW GT (08:27)
--- NOTE | 2020-01-01 08:44 | PCM.PROGNOTE ---
Patient Problems: Active and Suspected Problems (Last Reviewed 12/31/19 @ 00:[address] Ayaan Duque MD) Acute respiratory failure with hypoxia and hypercapnia (Acute) Acute tzo-UM-vhoztjelf myocardial infarction (Acute 12/31/19) Pulmonary edema (Acute) CHF (congestive heart failure) (Acute) Subjective: Chief complaint: Follow-up after admission for acute hypoxic and hypercapnic respiratory failure due to pulmonary edema mediated by acute diastolic CHF, found to have acute non-ST elevation VT. Patient seen and examined. No acute events overnight. At this time, patient is alert, awake, following commands. Remained on mechanical ventilation, minimal settings with FiO2 of 35% and PEEP of 5. He denied any chest pain. No abdominal pain, nausea or vomiting. He is afebrile, blood pressure and heart rate are stable, remained on mechanical ventilation as above. - Physical Exam Vitals/I&O's: Vital Signs Temp Pulse Resp BP Pulse Ox 98.6 F 79 14 111/51 L 94 01/01/20 08:00 01/01/20 08:00 01/01/20 08:00 01/01/20 08:00 01/01/20 08:00 Oxygen Flow Rate (L/min) 4 Oxygen Delivery Method Mechanical Ventilator Weight: 265 lb 3.457 oz Body Mass Index (BMI) 40.8 Intake and Output for Last 24 Hours 12/30/19 12/31/19 01/01/20 23:59 23:59 23:59 Intake Total 50 / 50 1139.61 / 1267.11 793.16 / 793.16 Output Total 900 / 1150 790 / 790 Balance 50 / 50 239.61 / 117.11 3.16 / 3.16 General: Alert, Cooperative, No apparent distress, - - On mechanical ventilation. HEENT: Atraumatic, PERRLA, EOMI, Normocephalic Oral: Moist Mucosa, No Gingival or Mucosal Lesions/ Ulcerations Neck: Supple, No JVD, Negative Carotid Bruits, Trachea Midline, Thyroid Normal Size and Texture Lungs: Clear to auscultation, Normal air movement, No rhonchi, No wheeze, No rales, Diminished Cardiovascular: Regular rate, Regular Rhythm, Normal S1, Normal S2, PMI Normal Abdomen: Bowel Sounds Present, Soft, Non Tender, Non-Distended, No Hepato-splenomegaly, Obese Extremities: No clubbing, No cyanosis, Edema Skin: No rashes, No breakdown Lymphatic: No Cervical, Supraclavicular, or Inguinal Adenopathy Neurological: Cranial nerves II-XII grossly intact, Neuro grossly intact Psych/Mental Status: Normal Affect, Appropriate Microbiology Past 72 Hours 12/31/19 04:55 Mucosa - Nasopharyngeal Respiratory Panel (PCR) - Final 12/31/19 04:05 Urine Catheter - Melendez Legionella Antigen - Final 12/31/19 04:05 Urine Catheter - Melendez Streptococcus pneumoniae Antigen (M - Final Laboratory Results 12/31/19 10:21: POC Glucose 198 H 12/31/19 15:15: POC Glucose 116 H 12/31/19 17:25: POC Glucose 141 H 12/31/19 21:52: POC Glucose 152 H 01/01/20 01:40: POC Glucose 170 H 01/01/20 04:35: PT 26.6 H, INR 2.5 01/01/20 04:35: WBC 11.6 H, RBC 4.16 L, Hgb 10.4 L, Hct 34.4 L, MCV 82.7, MCH 25.0 L, MCHC 30.2 L, RDW Std Deviation 47.1 H, RDW Coeff of Moni 15.8 H, Plt Count 151, MPV 9.9, Immature Gran % (Auto) 0.600, Neut % (Auto) 82.6 H, Lymph % (Auto) 8.2 L, [place] % (Auto) 8.0, Eos % (Auto) 0.3, Baso % (Auto) 0.3, Absolute Neuts (auto) 9.6 H, Absolute Lymphs (auto) 0.95, Nucleated RBC % 0 01/01/20 04:35: Sodium 140, Potassium 4.0, Chloride 107, Carbon Dioxide 27.0, Anion Gap 6, BUN 48 H, Creatinine 3.25 H, Estim Creat Clear Calc 18.42, Est GFR (MDRD) Af Amer 24 L, Est GFR (MDRD) Non-Af 20 L, BUN/Creatinine Ratio 14.8, Glucose 165 H, Calcium 8.8 01/01/20 06:34: POC Glucose 177 H Current Medications Acetaminophen (Tylenol Liquid) 650 mg GT Q6H PRN PRN PRN Reason: Pain Score 1-10/Temp > 100.7 F Amlodipine Besylate (Norvasc) 10 mg GT DAILY [facility] Last Admin: 12/31/19 10:24 Dose: Not Given Documented by: Aspirin (Aspirin, Baby) 81 mg GT DAILYCM [facility] Last Admin: 01/01/20 08:27 Dose: 81 mg Documented by: Atorvastatin Calcium (Lipitor) 20 mg GT DAILY@2200 [facility] Last Admin: 12/31/19 20:16 Dose: 20 mg Documented by: Chlorhexidine Gluconate () 15 ml PO BID [facility] Last Admin: 12/31/19 20:19 Dose: 15 ml Documented by: Clopidogrel Bisulfate (Plavix) 75 mg GT DAILY [facility] Last Admin: 12/31/19 10:23 Dose: 75 mg Documented by: Dextrose (D50w Syringe) 0 gm IV X1 PRN; Protocol PRN Reason: Hypoglycemia Famotidine (Pepcid) 20 mg GT DAILY [facility] Furosemide (Lasix) 40 mg IV Q8 [facility] Last Admin: 01/01/20 06:38 Dose: 40 mg Documented by: Glucagon () 1 mg IM .X1 PRN PRN Reason: Hypoglycemia Sodium Chloride () 250 mls @ 15 mls/hr IV .[id number] PRN PRN Reason: Saline Flush Sodium Chloride () 250 mls @ 15 mls/hr IV .[id number] PRN PRN Reason: Additional IVPB Infusion Propofol (Diprivan) 1,000 mg in 100 mls @ 7.302 mls/hr CONT INF .Q12H [facility]; Protocol Last Admin: 01/01/20 03:53 Dose: Not Given Documented by: Fentanyl Citrate 1,000 mcg/ (Sodium Chloride) 100 mls @ 2.5 mls/hr CONT INF .Q40H [facility]; Protocol Last Titration: 01/01/20 07:00 Dose: 75 mcg/hr, 7.5 mls/hr Documented by: Meropenem 1 gm/ Sodium (Chloride) 120 mls @ 33 mls/hr IV Q12 [facility] Last Infusion: 01/01/20 00:01 Dose: Infused Documented by: Enteral Nutritional Formula (Vital Af 1.2 Wilbur Liquid) 1,000 mls @ 50 mls/hr GT .Q20H [facility] Last Admin: 12/31/19 16:03 Dose: 50 mls/hr Documented by: Insulin Glargine (Lantus (Bk)) 28 units SC BID [facility] Last Admin: 12/31/19 20:17 Dose: 28 u Documented by: Insulin Human Lispro (Humalog Kwikpen ([facility])) 0 unit SC Q4 [facility]; Protocol Last Admin: 01/01/20 06:38 Dose: 2 units Documented by: Levothyroxine Sodium (Synthroid) 75 mcg GT DAILY@0600 [facility] Last Admin: 01/01/20 06:38 Dose: 75 mcg Documented by: Ondansetron HCl (Zofran) 4 mg IV Q8H PRN PRN PRN Reason: NAUSEA/VOMITING Sodium Bicarbonate (Sodium Bicarbonate) 650 mg GT DAILY [facility] Last Admin: 12/31/19 10:25 Dose: 650 mg Documented by: Sodium Chloride () 10 - 40 ml IV UD PRN PRN Reason: SALINE FLUSH Last Admin: 12/31/19 01:04 Dose: 30 ml Documented by: Spironolactone (Aldactone) 25 mg GT MoWeFr@0800 [facility] Last Admin: 12/31/19 08:47 Dose: 25 mg Documented by: Medical Necessity - Tobacco Use Smoking Status: Former smoker Assessment/Plan All Active Problems (Last Reviewed 12/31/19 @ 00:[address] Ayaan Duque MD) Acute respiratory failure with hypoxia and hypercapnia (Acute) Acute pfq-WU-mfkinjfcg myocardial infarction (Acute 12/31/19) Pulmonary edema (Acute) CHF (congestive heart failure) (Acute) This is a 79 years old male patient presented to the emergency room because of chest pain, started having shortness of breath, became hypoxic in the emergency department, was started on BiPAP, found to have acute hypoxic and hypercapnic respiratory failure attributed to pulmonary edema and acute diastolic CHF and also found to have acute non-ST elevation VT. #1 acute hypoxic and hypercapnic respiratory failure: Remains on mechanical ventilation with minimal vent settings, FiO2 of 35% and PEEP of 5. It is secondary to acute pulmonary edema and CHF. Patient is on IV Lasix for diuresis, on empiric IV antibiotics. Currently on IV fentanyl for sedation but it is off now. Critical care on the case. Kidney function is worsening. Plan to continue same treatment. #2 acute pulmonary edema mediated by acute diastolic CHF: As mentioned above, he is on IV Lasix for diuresis, on mechanical ventilation with minimal vent settings. COVID-19 PCR was negative. 2D echo done yesterday and revealed ejection fraction of 45% with inferior hypokinesis. He had a history of CAD status post stents. Troponin is highly elevated. Kidney function is worsening, today's creatinine is 3.25. Plan to continue same treatment, monitor kidney function. #3 acute non-ST elevation VT: Today, patient denied any chest pain. EKG revealed A. fib, rate is controlled, minimal ST segment depression on leads V4, V5 and V6, no acute ST elevation. Troponin as high as 18.4. Patient is on aspirin, Plavix, statins. Cardiology consulted, 2D echocardiogram reviewed as above. Plan for cardiac catheterization when patient stable. #4 chronic atrial fibrillation: At this time, rate is controlled. Currently, he is not on any medication for rate control. Patient was on metoprolol for rate control at home which is on hold now. Coumadin on hold as well. Today's INR is 2.5. #5 CAD status post stents: EKG reviewed as above, troponin is elevated. Plan for cardiac catheterization, continue aspirin, Plavix and statins. Cardiology on the case. #6 acute kidney injury on top of chronic kidney disease stage III: Baseline creatinine has been around 2 to 2.5 mg/dL, today's creatinine is 3.25, it is worsening because of IV Lasix. GFR has been in the high 20s up to 30s and 40s. Plan as above. #7 hypertension: Currently blood pressure stabilized. He is on Norvasc. Metoprolol and nitrate held. #8 type 2 diabetes mellitus: Blood sugars under better control, down to 100-200. He is on Lantus twice daily as well as sliding scale. #9 hypothyroidism: Continue levothyroxine. #10 hyperlipidemia: Continue statins. #11 CODE STATUS: Full code. #12 DVT prophylaxis: SCDs. This note was generated with [employer] dictation software. It may contain incorrect words, spelling, and punctuation that were not noted in checking the note before signing. Inpatient E&M: 26418 Subs Hosp L3
[2020-01-01 09:31] LABS: Vancomycin, Random Level 12.4 ug/mL (0.0-15.0)
--- NOTE | 2020-01-01 09:52 | CASEMGMT ---
RN CM Assessment Note Intro role of CM to patient's via phone. Patient is in ICU, on ventilator, and unable to participate in assessment. 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 Presentation: chest pain, hypoxia Diagnosis: NSTEMI, respiratory failure, pulmonary edema-CHF PMH: CKD, A-fib, Type 2 diabetes, hypothyroidism, ANKIT PCP: Dr. Masha Treviño Specialists: Dr. Boss,cardiology; Dr. Davis, pulmonology Insurance: [facility] Preferred Pharmacy: [facility] Prescription Benefit: yes LNOK: Leigh Ann Richey, Living Arrangements: Lives in one story home, 5 steps into home from garage, and 1 step via front porch. Shower with bench. Patient is independent with ADL's and IADL's. states he uses a cane because he had a bad fall in tub 3 months ago which resulted in nerve damage to his R leg. They then had tub removed, and remodeled to shower. Tranportation: patient and drive DME: walker, cane-uses only, Cpap -Oxygen: 1L bleed in to Cpap @ night only. Has concentrator, but no portability. Per Collin, current script is for 1L nocturnal. HHC: none past SNF: none past Patient DC Goals: Home DC Plan: undetermined. CM available for discharge planning coordination. Contact CM for any concerns/needs that may arise. Polo THOMAS RN ACM
[2020-01-01] MEDS: Chlorhexidine 15 ML PO ×2 (10:34→20:10)
[2020-01-01] MEDS: Sodium Bicarbonate 650 MG Tablet GT (10:35)
[2020-01-01] MEDS: Clopidogrel Bisulfate 75 MG Tablet GT (10:35)
[2020-01-01] MEDS: Famotidine 20 MG Tablet GT (10:35)
[2020-01-01] MEDS: amLODIPine 10 MG Tablet GT (10:35)
[2020-01-01 10:51] LABS: Bedside Glucose 169 mg/dL (70-110)
[2020-01-01] MEDS: Vital AF 1.2 Cal Liquid 1,000 ML 50 ML GT (13:52)
[2020-01-01 13:56] LABS: Bedside Glucose 194 mg/dL (70-110)
[2020-01-01 17:40] LABS: Bedside Glucose 183 mg/dL (70-110)
[2020-01-01] MEDS: Atorvastatin Calcium 20 MG Tablet GT (20:11)
[2020-01-01 22:30] LABS: Bedside Glucose 176 mg/dL (70-110)
[2020-01-02] VITALS (49 sets, daily range): BP systolic 94–194; BP diastolic 45–107; PULSE 63–138; RESP 11–26; TEMP 36.3–37.2; O2SAT 87–100
[2020-01-02] MEDS: Insulin Lispro 100 UNIT/ML INSULN.PEN SC ×5 (01:52→20:52)
[2020-01-02 02:00] LABS: Bedside Glucose 194 mg/dL (70-110)
[2020-01-02] MEDS: Senna/Docusate Sodium 1 Tablet 2 TABLET GT (04:28)
[2020-01-02 04:43] LABS: Absolute Lymphocyte Count 1.04 X10^3/uL (0.83-4.51); Absolute Neutrophil Count 10.9 X10^3/uL (2.0-7.7); Basophil# 0.04 X10^3/uL; Basophil% 0.3 % (0-1); Eosinophil# 0.15 X10^3/uL; Eosinophils% 1.1 % (0-5); Hematocrit 36.2 % (40-54); Lymphocyte # 1.04 X10^3/ul (4.0); Lymphocyte % 7.7 % (19-41); Mean Corp Hgb Conc 30.4 g/dL (32-36); Mean Corpuscular Hgb 25.2 pg (27.0-32.0); Mean Corpuscular Volume 82.8 fL (80-94); Mean Platelet Vol. 10.2 fl (6.2-12.0); Monocyte# 1.23 X10^3/uL; Monocyte% 9.1 % (0-10); NRBC Flagged by Analyzer 0 % (0-5); Neutrophil # 10.91 X10^3/uL (2.7-7.7); Neutrophil % 80.8 % (47-70); Platelet Count 177 K/mm3 (150-450); RBC Distribution Width CV 15.8 % (11.6-14.6); RBC Distribution Width SD 47.6 fl (35.1-43.9); Red Blood Count 4.37 M/mm3 (4.6-6.2); White Blood Count 13.5 K/mm3 (4.4-11.0)
[2020-01-02 04:53] LABS: International Normalized Ratio 2.3; Prothrombin Time (Protime)PT. 24.8 SECONDS (11.7-14.9)
[2020-01-02 04:58] LABS: Anion Gap 7 (5-15); BUN 49 mg/dL (7-18); BUN/Creat Ratio 16.7 RATIO (10-20); Calcium,Total 9.5 mg/dL (8.5-10.1); Chloride 108 mmol/L (98-107); Creatinine, Serum 2.94 mg/dL (0.70-1.30); EST Glomerular Filtration Rate 22 mL/min (>60); Est Glom Filt Rate - Afr Amer 27 mL/min (>60); Estimated Creatinine Clearance 20.36 ml/min; Glucose 186 mg/dL (74-106); Potassium 3.6 mmol/L (3.5-5.1); Sodium Level 142 mmol/L (136-145)
[2020-01-02] MEDS: Levothyroxine 75 MCG Tablet GT (05:45)
[2020-01-02 06:00] LABS: Bedside Glucose 212 mg/dL (70-110)
--- NOTE | 2020-01-02 06:19 | PCM.PN.INT ---
Subjective: The patient was seen and examined at the bedside this morning. Events from the last 24 hours have been reviewed. The patient is currently afebrile, hemodynamically stable and maintaining appropriate oxygen saturations on assist control mode of mechanical ventilation with an FiO2 requirement of 30%. The patient is currently documented to be overall net +400 mL's for the hospital admission. Although the patient's respiratory status is improving, the patient failed his spontaneous breathing trial this morning, as he became anxious and became significantly tachycardic. Therefore, the patient was placed back on assist control and orders were placed to start the patient on Precedex to facilitate weaning from invasive mechanical ventilatory support. Objective: The patient's most recent lab work, culture data and imaging studies have all been personally reviewed. Respiratory viral panel was negative. Strep and urine Legionella antigens were negative. Blood cultures are pending. General: - - Remains intubated and mechanically ventilated, now back on sedation. HEENT: Atraumatic, Normocephalic Oral: Moist Mucosa, No Gingival or Mucosal Lesions/ Ulcerations, - - Endotracheal and OG tubes remain in place Neck: Supple, No Nodes, Trachea Midline Lungs: No rhonchi, No wheeze, No rales, Diminished Cardiovascular: Normal S1, Normal S2, Irregular Rate, Tachycardic Abdomen: Bowel Sounds Present, Soft, Non Tender, Obese Extremities: No clubbing, No cyanosis Skin: - - No significant change from previous Musculoskeletal: No Muscle Wasting Lymphatic: No Cervical, Supraclavicular, or Inguinal Adenopathy Neurological: - - No focal neurological deficits. Vital Signs Temp Pulse Resp BP Pulse Ox 98.2 F 116 H 17 167/79 H 93 01/02/20 05:00 01/02/20 05:00 01/02/20 05:05 01/02/20 05:00 01/02/20 05:00 Oxygen Flow Rate (L/min) 35 Oxygen Delivery Method Mechanical Ventilator Weight: 268 lb 15.423 oz Body Mass Index (BMI) 40.8 Intake and Output for Last 24 Hours 12/31/19 01/01/20 01/02/20 23:59 23:59 23:59 Intake Total 1139.61 / 1267.11 1850.66 / 1980.66 158.83 / 158.83 Output Total 900 / 1150 1523 / 1673 375 / 375 Balance 239.61 / 117.11 327.66 / 307.66 -216.17 / -216.17 Labs (Last 48 Hours) 12/31/19 12/31/19 12/31/19 00:36 00:38 02:13 WBC RBC Hgb Hct MCV MCH MCHC RDW Std Deviation RDW Coeff of Moni Plt Count MPV Immature Gran % (Auto) Neut % (Auto) Lymph % (Auto) Gates % (Auto) Eos % (Auto) Baso % (Auto) Absolute Neuts (auto) Absolute Lymphs (auto) Nucleated RBC % PT INR VBG O2 Content 25 Sodium Potassium Chloride Carbon Dioxide Anion Gap BUN Creatinine Estim Creat Clear Calc Est GFR (MDRD) Af Amer Est GFR (MDRD) Non-Af BUN/Creatinine Ratio Glucose Calcium Troponin I Random Vancomycin MRSA (PCR) POC Glucose 452 H* 416 H 12/31/19 12/31/19 12/31/19 04:54 07:40 10:21 WBC RBC Hgb Hct MCV MCH MCHC RDW Std Deviation RDW Coeff of Moni Plt Count MPV Immature Gran % (Auto) Neut % (Auto) Lymph % (Auto) Gates % (Auto) Eos % (Auto) Baso % (Auto) Absolute Neuts (auto) Absolute Lymphs (auto) Nucleated RBC % PT INR VBG O2 Content Sodium Potassium Chloride Carbon Dioxide Anion Gap BUN Creatinine Estim Creat Clear Calc Est GFR (MDRD) Af Amer Est GFR (MDRD) Non-Af BUN/Creatinine Ratio Glucose Calcium Troponin I 18.400 H* Random Vancomycin MRSA (PCR) Negative POC Glucose 198 H 12/31/19 12/31/19 12/31/19 15:15 17:25 21:52 WBC RBC Hgb Hct MCV MCH MCHC RDW Std Deviation RDW Coeff of Moni Plt Count MPV Immature Gran % (Auto) Neut % (Auto) Lymph % (Auto) Gates % (Auto) Eos % (Auto) Baso % (Auto) Absolute Neuts (auto) Absolute Lymphs (auto) Nucleated RBC % PT INR VBG O2 Content Sodium Potassium Chloride Carbon Dioxide Anion Gap BUN Creatinine Estim Creat Clear Calc Est GFR (MDRD) Af Amer Est GFR (MDRD) Non-Af BUN/Creatinine Ratio Glucose Calcium Troponin I Random Vancomycin MRSA (PCR) POC Glucose 116 H 141 H 152 H 01/01/20 01/01/20 01/01/20 01:40 04:35 04:35 WBC 11.6 H RBC 4.16 L Hgb 10.4 L Hct 34.4 L MCV 82.7 MCH 25.0 L MCHC 30.2 L RDW Std Deviation 47.1 H RDW Coeff of Moni 15.8 H Plt Count 151 MPV 9.9 Immature Gran % (Auto) 0.600 Neut % (Auto) 82.6 H Lymph % (Auto) 8.2 L Gates % (Auto) 8.0 Eos % (Auto) 0.3 Baso % (Auto) 0.3 Absolute Neuts (auto) 9.6 H Absolute Lymphs (auto) 0.95 Nucleated RBC % 0 PT 26.6 H INR 2.5 VBG O2 Content Sodium Potassium Chloride Carbon Dioxide Anion Gap BUN Creatinine Estim Creat Clear Calc Est GFR (MDRD) Af Amer Est GFR (MDRD) Non-Af BUN/Creatinine Ratio Glucose Calcium Troponin I Random Vancomycin MRSA (PCR) POC Glucose 170 H 01/01/20 01/01/20 01/01/20 04:35 06:34 08:45 WBC RBC Hgb Hct MCV MCH MCHC RDW Std Deviation RDW Coeff of Moni Plt Count MPV Immature Gran % (Auto) Neut % (Auto) Lymph % (Auto) Gates % (Auto) Eos % (Auto) Baso % (Auto) Absolute Neuts (auto) Absolute Lymphs (auto) Nucleated RBC % PT INR VBG O2 Content Sodium 140 Potassium 4.0 Chloride 107 Carbon Dioxide 27.0 Anion Gap 6 BUN 48 H Creatinine 3.25 H Estim Creat Clear Calc 18.42 Est GFR (MDRD) Af Amer 24 L Est GFR (MDRD) Non-Af 20 L BUN/Creatinine Ratio 14.8 Glucose 165 H Calcium 8.8 Troponin I Random Vancomycin 12.4 MRSA (PCR) POC Glucose 177 H 01/01/20 01/01/20 01/01/20 10:29 13:50 17:27 WBC RBC Hgb Hct MCV MCH MCHC RDW Std Deviation RDW Coeff of Moni Plt Count MPV Immature Gran % (Auto) Neut % (Auto) Lymph % (Auto) Gates % (Auto) Eos % (Auto) Baso % (Auto) Absolute Neuts (auto) Absolute Lymphs (auto) Nucleated RBC % PT INR VBG O2 Content Sodium Potassium Chloride Carbon Dioxide Anion Gap BUN Creatinine Estim Creat Clear Calc Est GFR (MDRD) Af Amer Est GFR (MDRD) Non-Af BUN/Creatinine Ratio Glucose Calcium Troponin I Random Vancomycin MRSA (PCR) POC Glucose 169 H 194 H 183 H 01/01/20 01/02/20 01/02/20 22:16 01:50 04:30 WBC RBC Hgb Hct MCV MCH MCHC RDW Std Deviation RDW Coeff of Moni Plt Count MPV Immature Gran % (Auto) Neut % (Auto) Lymph % (Auto) Gates % (Auto) Eos % (Auto) Baso % (Auto) Absolute Neuts (auto) Absolute Lymphs (auto) Nucleated RBC % PT 24.8 H INR 2.3 VBG O2 Content Sodium Potassium Chloride Carbon Dioxide Anion Gap BUN Creatinine Estim Creat Clear Calc Est GFR (MDRD) Af Amer Est GFR (MDRD) Non-Af BUN/Creatinine Ratio Glucose Calcium Troponin I Random Vancomycin MRSA (PCR) POC Glucose 176 H 194 H 01/02/20 01/02/20 01/02/20 04:30 04:30 05:48 WBC 13.5 H RBC 4.37 L Hgb 11.0 L Hct 36.2 L MCV 82.8 MCH 25.2 L MCHC 30.4 L RDW Std Deviation 47.6 H RDW Coeff of Moni 15.8 H Plt Count 177 MPV 10.2 Immature Gran % (Auto) 1.000 H Neut % (Auto) 80.8 H Lymph % (Auto) 7.7 L Gates % (Auto) 9.1 Eos % (Auto) 1.1 Baso % (Auto) 0.3 Absolute Neuts (auto) 10.9 H Absolute Lymphs (auto) 1.04 Nucleated RBC % 0 PT INR VBG O2 Content Sodium 142 Potassium 3.6 Chloride 108 H Carbon Dioxide 27.0 Anion Gap 7 BUN 49 H Creatinine 2.94 H Estim Creat Clear Calc 20.36 Est GFR (MDRD) Af Amer 27 L Est GFR (MDRD) Non-Af 22 L BUN/Creatinine Ratio 16.7 Glucose 186 H Calcium 9.5 Troponin I Random Vancomycin MRSA (PCR) POC Glucose 212 H Microbiology 12/31/19 04:55 Mucosa - Nasopharyngeal Respiratory Panel (PCR) - Final 12/31/19 04:05 Urine Catheter - Melendez Legionella Antigen - Final 12/31/19 04:05 Urine Catheter - Melendez Streptococcus pneumoniae Antigen (M - Final Clinical Impression(s) from Imaging Studies Chest X-Ray 12/30/19 20:45 IMPRESSION: Stable chronic increased interstitial markings in the lungs. No pulmonary infiltrates or pleural effusions. Electronically Signed: Francisco Linda, at 20:59 EDT Tel , Service support , Chest CT 12/30/19 21:29 IMPRESSION: Probable congestive failure with small right pleural effusion. Cannot exclude coexisting pneumonia. Electronically Signed: Nestor Corbett MD at 22:21 EDT , Service support , Chest X-Ray 12/31/19 03:05 IMPRESSION: Pneumonia. Possible pulmonary edema. There has been worsening since the previous study. Electronically Signed: Lissa Bishop, at 3:58 EDT Tel , Service support , KUB X-Ray 12/31/19 03:10 IMPRESSION: An NG tube is seen its tip is below the diaphragm is in good position. Electronically Signed: Lissa Bishop, at 3:59 EDT Tel , Service support , Medical Necessity - Tobacco Use Smoking Status: Former smoker Assessment/Plan All Active Problems (Last Reviewed 12/31/19 @ 00:[address] Ayaan Duque MD) Acute respiratory failure with hypoxia and hypercapnia (Acute) Acute qve-UD-bgezytljh myocardial infarction (Acute 12/31/19) Pulmonary edema (Acute) CHF (congestive heart failure) (Acute) RECOMMENDATIONS: 1. Continue empiric antimicrobials with plans to complete a 7-day treatment course. 2. Start Precedex today to facilitate weaning from invasive mechanical ventilatory support. 3. Continue once daily Lasix, as tolerated by hemodynamics and renal function. 4. Continue to wean FiO2 and PEEP to maintain oxygen saturations at or above 90%. 5. Continue tube feeds as tolerated. 6. Continue Pepcid for GI prophylaxis. IMPRESSIONS: 1. Acute combined respiratory failure Likely multifactorial in etiology with acute decompensated heart failure and subsequent pulmonary edema, along with possible community-acquired pneumonia contributing. Plan to continue current supportive measures, including empiric antimicrobials. Continue diuretic therapy as tolerated by hemodynamics and renal function. Continue to wean FiO2 and PEEP to maintain oxygen saturations at or above 90%. Tube feeds will be continued. Continue appropriate ICU prophylaxis. Plan to initiate Precedex today to facilitate weaning from invasive mechanical ventilatory support. 2. Decompensated heart failure/non-ST segment elevation VA/chronic atrial fibrillation/coronary artery disease Cardiology is currently following to assist with medical management. Continue diuretic therapy. The patient will likely require cardiac catheterization in the near future. 3. Obesity/obstructive sleep apnea/hypothyroidism/hypertension/hyperlipidemia/diabetes mellitus Complicates care, management, recovery and prognosis. Continue sliding scale insulin coverage. Physical therapy to evaluate the patient once medically stabilized. Continue tube feeds. TIME: 33 minutes of critical care time, independent of procedures, was spent addressing the patient's acute combined respiratory failure, decompensated heart failure, non-ST segment elevation VA, review of all data and collaboration with the care team. ([id number]) [phone] [id number] Critical care first hour
[2020-01-02] MEDS: Aspirin 81 MG TAB.CHEW GT (08:22)
[2020-01-02] MEDS: Chlorhexidine 15 ML PO (08:22)
[2020-01-02] MEDS: Spironolactone 25 MG Tablet GT (08:22)
[2020-01-02] MEDS: Sodium Bicarbonate 650 MG Tablet GT (08:23)
[2020-01-02] MEDS: Clopidogrel Bisulfate 75 MG Tablet GT (08:23)
[2020-01-02] MEDS: Furosemide 40 MG/4 ML Vial IV (08:23)
[2020-01-02] MEDS: amLODIPine 10 MG Tablet GT (08:23)
[2020-01-02] MEDS: Famotidine 20 MG Tablet GT (08:23)
[2020-01-02 10:21] LABS: Bedside Glucose 253 mg/dL (70-110)
--- NOTE | 2020-01-02 10:29 | PN_ITS ---
Patient Problems: Active and Suspected Problems (Last Reviewed 12/31/19 @ 00:[address] Ayaan Duque MD) Acute respiratory failure with hypoxia and hypercapnia (Acute) Acute gyq-BV-vqephoirw myocardial infarction (Acute 12/31/19) Pulmonary edema (Acute) CHF (congestive heart failure) (Acute) Reason for Visit: Acute hypoxic and hypercapnic respiratory failure Subjective: Patient is a 79-year-old gentleman admitted with progressive shortness of breath and assessment of acute hypoxic and hypercapnic respiratory failure secondary to CHF was made. Patient was intubated and admitted to the intensive care unit Patient still remains on the vent awake follows simple commands attempts at weaning this a.m. unsuccessful Objective: GENERAL: Awake on the vent HEENT: ET tube in place EYES; Anicteric, Normal Conjunctiva NECK; supple, normal thyroid, RESPIRATORY: Diminished to auscultation CARDIOVASCULAR: Regular S1 S2, GI: soft, normoactive bowel sounds, : No Renal angle tenderness; EXTREMITIES: edema, no clubbing, MUSCULOSKELETAL: no muscle waisting NEURO: Awake on the vent SKIN: No Rash Vitals/I&O's: Vital Signs Temp Pulse Resp BP Pulse Ox 98.4 F 70 14 94/46 L 96 01/02/20 10:00 01/02/20 10:00 01/02/20 10:00 01/02/20 10:00 01/02/20 10:00 Oxygen Flow Rate (L/min) 35 Oxygen Delivery Method Mechanical Ventilator Weight: 122 kg Body Mass Index (BMI) 40.8 Intake and Output for Last 24 Hours 12/31/19 01/01/20 01/02/20 23:59 23:59 23:59 Intake Total 1139.61 / 1267.11 1850.66 / 1980.66 919.25 / 919.25 Output Total 900 / 1150 1523 / 1673 500 / 500 Balance 239.61 / 117.11 327.66 / 307.66 419.25 / 419.25 Microbiology Past 72 Hours 12/30/19 22:30 Blood Culture (Wb) - Anticubital Left Blood Culture - Preliminary No growth in 48 hours. 12/30/19 22:18 Blood Culture (Wb) - Anticubital Right Blood Culture - Preliminary No growth in 48 hours. 12/31/19 04:55 Mucosa - Nasopharyngeal Respiratory Panel (PCR) - Final 12/31/19 04:05 Urine Catheter - Melendez Legionella Antigen - Final 12/31/19 04:05 Urine Catheter - Melendez Streptococcus pneumoniae Antigen (M - Final Laboratory Results 01/01/20 10:29: POC Glucose 169 H 01/01/20 13:50: POC Glucose 194 H 01/01/20 17:27: POC Glucose 183 H 01/01/20 22:16: POC Glucose 176 H 01/02/20 01:50: POC Glucose 194 H 01/02/20 04:30: PT 24.8 H, INR 2.3 01/02/20 04:30: WBC 13.5 H, RBC 4.37 L, Hgb 11.0 L, Hct 36.2 L, MCV 82.8, MCH 25.2 L, MCHC 30.4 L, RDW Std Deviation 47.6 H, RDW Coeff of Moni 15.8 H, Plt Count 177, MPV 10.2, Immature Gran % (Auto) 1.000 H, Neut % (Auto) 80.8 H, Lymph % (Auto) 7.7 L, Grainger % (Auto) 9.1, Eos % (Auto) 1.1, Baso % (Auto) 0.3, Absolute Neuts (auto) 10.9 H, Absolute Lymphs (auto) 1.04, Nucleated RBC % 0 01/02/20 04:30: Sodium 142, Potassium 3.6, Chloride 108 H, Carbon Dioxide 27.0, Anion Gap 7, BUN 49 H, Creatinine 2.94 H, Estim Creat Clear Calc 20.36, Est GFR (MDRD) Af Amer 27 L, Est GFR (MDRD) Non-Af 22 L, BUN/Creatinine Ratio 16.7, Glucose 186 H, Calcium 9.5 01/02/20 05:48: POC Glucose 212 H 01/02/20 10:11: POC Glucose 253 H Current Medications Acetaminophen (Tylenol Liquid) 650 mg GT Q6H PRN PRN PRN Reason: Pain Score 1-10/Temp > 100.7 F Amlodipine Besylate (Norvasc) 10 mg GT DAILY [facility] Last Admin: 01/02/20 08:23 Dose: 10 mg Documented by: [facility]ir[facility] ([facility], Baby) [facility] Last Admin: 01/02/20 08:22 Dose: 81 mg Documented by: Atorvastatin Calcium (Lipitor) 20 mg GT DAILY@2200 [facility] Last Admin: 01/01/20 20:11 Dose: 20 mg Documented by: Chlorhexidine Gluconate () 15 ml PO BID [facility] Last Admin: 01/02/20 08:22 Dose: 15 ml Documented by: Clopidogrel Bisulfate (Plavix) 75 mg GT DAILY [facility] Last Admin: 01/02/20 08:23 Dose: 75 mg Documented by: Dextrose (D50w Syringe) 0 gm IV X1 PRN; Protocol PRN Reason: Hypoglycemia Famotidine (Pepcid) 20 mg GT DAILY [facility] Last Admin: 01/02/20 08:23 Dose: 20 mg Documented by: Furosemide (Lasix) 40 mg IV DAILY [facility] Last Admin: 01/02/20 08:23 Dose: 40 mg Documented by: Glucagon () 1 mg IM .X1 PRN PRN Reason: Hypoglycemia Sodium Chloride () 250 mls @ 15 mls/hr IV .[id number] PRN PRN Reason: Saline Flush Last Infusion: 01/02/20 06:00 Dose: 15 mls/hr Documented by: Sodium Chloride () 250 mls @ 15 mls/hr IV .[id number] PRN PRN Reason: Additional IVPB Infusion Fentanyl Citrate 1,000 mcg/ (Sodium Chloride) 100 mls @ 2.5 mls/hr CONT INF .Q40H [facility]; Protocol Last Titration: 01/02/20 08:45 Dose: 0 mcg/hr, 0 mls/hr Documented by: Meropenem 1 gm/ Sodium (Chloride) 120 mls @ 33 mls/hr IV Q12 [facility] Last Admin: 01/02/20 08:24 Dose: 33 mls/hr Documented by: Enteral Nutritional Formula (Vital Af 1.2 Wilbur Liquid) 1,000 mls @ 50 mls/hr GT .Q20H [facility] Last Admin: 01/02/20 05:20 Dose: Not Given Documented by: Dexmedetomidine HCl 400 mcg/ (Sodium Chloride) 100 mls @ 15.25 mls/hr CONT INF .Q6H34M [facility]; Protocol Last Titration: 01/02/20 10:15 Dose: 0.3 mcg/kg/hr, 9.2 mls/hr Documented by: Insulin Glargine (Lantus (Bkc)) 28 units SC BID [facility] Last Admin: 01/02/20 10:13 Dose: 28 u Documented by: Insulin Human Lispro (Humalog Kwikpen (Bkc)) 0 unit SC Q4 [facility]; Protocol Last Admin: 01/02/20 10:12 Dose: 4 units Documented by: Levothyroxine Sodium (Synthroid) 75 mcg GT DAILY@0600 [facility] Last Admin: 01/02/20 05:45 Dose: 75 mcg Documented by: Ondansetron HCl (Zofran) 4 mg IV Q8H PRN PRN PRN Reason: NAUSEA/VOMITING Senna/Docusate Sodium (Senokot-S, Isabella-Colace) 2 tablet GT BID PRN PRN Reason: CONSTIPATION Last Admin: 01/02/20 04:28 Dose: 2 tablet Documented by: Sodium Bicarbonate (Sodium Bicarbonate) 650 mg GT DAILY [facility] Last Admin: 01/02/20 08:23 Dose: 650 mg Documented by: Sodium Chloride () 10 - 40 ml IV UD PRN PRN Reason: SALINE FLUSH Last Admin: 12/31/19 01:04 Dose: 30 ml Documented by: Spironolactone (Aldactone) 25 mg GT MoWeFr@0800 [facility] Last Admin: 01/02/20 08:22 Dose: 25 mg Documented by: STROKE Vital Signs/Narrative: Vital Signs Temp Pulse Resp BP Pulse Ox 01/02/20 10:00 98.4 F 70 14 94/46 L 96 01/02/20 09:00 98.3 F 79 16 110/45 L 97 01/02/20 08:00 106 H 17 162/99 H 93 01/02/20 07:00 97.5 F L 126 H 22 H 169/94 H 92 Medical Necessity - Tobacco Use Smoking Status: Former smoker Assessment/Plan All Active Problems (Last Reviewed 12/31/19 @ 00:[address] Ayaan Duque MD) Acute respiratory failure with hypoxia and hypercapnia (Acute) Acute wyq-XP-leginanda myocardial infarction (Acute 12/31/19) Pulmonary edema (Acute) CHF (congestive heart failure) (Acute) Patient is a 79-year-old gentleman admitted with progressive shortness of breath and assessment of acute hypoxic and hypercapnic respiratory failure secondary to CHF was made. Patient was intubated and admitted to the intensive care unit 1. Acute hypoxic and hypercapnic respiratory failure ?Secondary to pulmonary edema as a result of congestive heart failure. Patient remains on the vent. Attempts at weaning on the morning of 01/02/2020 unsuccessful plan is for patient to undergo repeat weaning trial 2. Acute pulmonary edema ?Secondary to congestive heart failure with reduced ejection fraction of 45% with inferior hypokinesis. Patient was managed with diuretics held in view of worsening kidney function 3. Acute non-ST segment elevation [place] ?Patient managed per protocol consult placed to cardiology plans for patient to undergo left heart catheterization on 01/03/2020 4. Coronary artery disease ?With previous PCI. Patient currently on dual antiplatelet therapy with aspirin and Plavix in addition to statin therapy. As stated above plan is for patient to undergo elective catheterization on 01/03/2020. .5 Chronic A. fib ?Rate controlled metoprolol. Patient is on systemic anticoagulation with Coumadin currently being held in a suspicion of patient left heart catheterization 6. Chronic kidney disease stage IV ?Creatinine on admission was 2.43 did worsen peaking at 3.25, improving with creatinine at 2.94 as of 01/02/2020. Also placed to nephrology 7. Diabetes mellitus type 2 ?With complications including diabetic nephropathy. Patient is a long-acting insulin in addition to sliding scale 8. Hypertension - Blood pressure controlled, home medications continued with dose adjustment as needed 9. Hypothyroidism - Patient is on levothyroxine home dose continued 10. Dyslipidemia -Patient is on statin therapy, continued at home dose 11. DVT prophylaxis ?Patient is on Coumadin which is currently being held as stated above Inpatient E&M: [id number] [facility] L3
--- NOTE | 2020-01-02 11:36 | CON.PCM_ITS ---
Problem List (1) CKD (chronic kidney disease) Status: Chronic Consultation - Renal 01/02/20 PCP/ Referring MD: Requesting physician: [] Primary care physician: Dr. Masha Treviño MD Reason for Consultation:: CKD, NSTEMI - History of Present Illness History of Present Illness: The patient is a 79 year old M admitted to the hospital late last week with complaints of shortness of breath. Found to have non-ST elevation NE, fluid overload. Was intubated. Currently on a breathing trial. Nephrology consulted for elevated creatinine. Patient is currently intubated and is able to communicate only through yes or no questions. Most of the history is from the charts. It seems she has known history of diabetes and hypertension for many years. Follows with endocrinology here. HbA1c values are reasonable. I do not have a urine protein estimation recently. Most recent creatinine is around 2.4. This admission peak creatinine was 3.2, down to 2.9 today. Currently has a Syed catheter with and urine output. Has been getting IV Lasix. - Allergies Allergies: Allergies Penicillins Adverse Reaction (Severe, Verified 12/30/19 20:27) Swelling - Current Medications Current Medications: Current Medications Acetaminophen (Tylenol Liquid) 650 mg GT Q6H PRN PRN PRN Reason: Pain Score 1-10/Temp > 100.7 F Amlodipine Besylate (Norvasc) 10 mg GT DAILY [facility] Last Admin: 01/02/20 08:23 Dose: 10 mg Documented by: Aspirin (Aspirin, Baby) 81 mg GT DAILYCM [facility] Last Admin: 01/02/20 08:22 Dose: 81 mg Documented by: Atorvastatin Calcium (Lipitor) 20 mg GT DAILY@2200 [facility] Last Admin: 01/01/20 20:11 Dose: 20 mg Documented by: Chlorhexidine Gluconate () 15 ml PO BID [facility] Last Admin: 01/02/20 08:22 Dose: 15 ml Documented by: Clopidogrel Bisulfate (Plavix) 75 mg GT DAILY [facility] Last Admin: 01/02/20 08:23 Dose: 75 mg Documented by: Dextrose (D50w Syringe) 0 gm IV X1 PRN; Protocol PRN Reason: Hypoglycemia Famotidine (Pepcid) 20 mg GT DAILY [facility] Last Admin: 01/02/20 08:23 Dose: 20 mg Documented by: Furosemide (Lasix) 40 mg IV DAILY [facility] Last Admin: 01/02/20 08:23 Dose: 40 mg Documented by: Glucagon () 1 mg IM .X1 PRN PRN Reason: Hypoglycemia Sodium Chloride () 250 mls @ 15 mls/hr IV .[id number] PRN PRN Reason: Saline Flush Last Infusion: 01/02/20 06:00 Dose: 15 mls/hr Documented by: Sodium Chloride () 250 mls @ 15 mls/hr IV .[id number] PRN PRN Reason: Additional IVPB Infusion Fentanyl Citrate 1,000 mcg/ (Sodium Chloride) 100 mls @ 2.5 mls/hr CONT INF .Q40H [facility]; Protocol Last Titration: 01/02/20 08:45 Dose: 0 mcg/hr, 0 mls/hr Documented by: Meropenem 1 gm/ Sodium (Chloride) 120 mls @ 33 mls/hr IV Q12 [facility] Last Admin: 01/02/20 08:24 Dose: 33 mls/hr Documented by: Enteral Nutritional Formula (Vital Af 1.2 Wilbur Liquid) 1,000 mls @ 50 mls/hr GT .Q20H ANNA Last Admin: 01/02/20 05:20 Dose: Not Given Documented by: Dexmedetomidine HCl 400 mcg/ (Sodium Chloride) 100 mls @ 15.25 mls/hr CONT INF .Q6H34M [facility]; Protocol Last Titration: 01/02/20 11:15 Dose: 0 mcg/kg/hr, 0 mls/hr Documented by: Insulin Glargine (Lantus (Bkc)) 28 units SC BID [facility] Last Admin: 01/02/20 10:13 Dose: 28 u Documented by: Insulin Human Lispro (Humalog Kwikpen (Bk)) 0 unit SC Q4 [facility]; Protocol Last Admin: 01/02/20 10:12 Dose: 4 units Documented by: Levothyroxine Sodium (Synthroid) 75 mcg GT DAILY@0600 [facility] Last Admin: 01/02/20 05:45 Dose: 75 mcg Documented by: Ondansetron HCl (Zofran) 4 mg IV Q8H PRN PRN PRN Reason: NAUSEA/VOMITING Senna/Docusate Sodium (Senokot-S, Isabella-Colace) 2 tablet GT BID PRN PRN Reason: CONSTIPATION Last Admin: 01/02/20 04:28 Dose: 2 tablet Documented by: Sodium Bicarbonate (Sodium Bicarbonate) 650 mg GT DAILY [facility] Last Admin: 01/02/20 08:23 Dose: 650 mg Documented by: Sodium Chloride () 10 - 40 ml IV UD PRN PRN Reason: SALINE FLUSH Last Admin: 12/31/19 01:04 Dose: 30 ml Documented by: Spironolactone (Aldactone) 25 mg GT MoWeFr@0800 [facility] Last Admin: 01/02/20 08:22 Dose: 25 mg Documented by: - Past Medical History Past Medical History (Chronic Problems): Chronic Problems (Last Reviewed 12/31/19 @ 00:[address] Ayaan Duque MD) CKD (chronic kidney disease) (Chronic) Atherosclerotic heart disease of [place] coronary artery without angina pectoris (Chronic) Longstanding persistent atrial fibrillation (Chronic) History of coronary artery stent placement (Chronic 06/03/15) BMS to Mid RCA w/ 3.5 x 24 mm [employer] Dispatcher Stent 04/03/2003; BMS to Distal RCA w/ 3.0 x 18 mm Chief I Dispatcher Stent 06/04/2004; POBA-ISR Prox and Distal RCA 06/03/15 Essential (primary) hypertension (Chronic) Hyperlipidemia (Chronic) FDC (current) use of anticoagulants (Chronic) Type 2 diabetes mellitus (Chronic) - Past Surgical History Surgical History: angioplasty, total knee arthroplasty - Social History Smoking Status: Former smoker Alcohol: None Drugs: None - Family History Maternal Family History: Family History (Last Reviewed 12/31/19 @ 00:[address] Ayaan Duque MD) Father CAD (coronary artery disease) Embolism Mother Kidney disease Review of Systems Unable to obtain accurate/complete ROS d/t: intubated Patient Problems: Active and Suspected Problems (Last Reviewed 12/31/19 @ 00:[address] Ayaan Duque MD) Acute respiratory failure with hypoxia and hypercapnia (Acute) Acute gvd-PK-zdourksit myocardial infarction (Acute 12/31/19) Pulmonary edema (Acute) CHF (congestive heart failure) (Acute) - Physical Exam Vitals/I&O's: Vital Signs Temp Pulse Resp BP Pulse Ox 98.4 F 84 18 133/65 H 100 01/02/20 10:00 01/02/20 11:00 01/02/20 11:00 01/02/20 11:00 01/02/20 11:00 Oxygen Flow Rate (L/min) 35 Oxygen Delivery Method Mechanical Ventilator Weight: 122 kg Body Mass Index (BMI) 40.8 Intake and Output for Last 24 Hours 12/31/19 01/01/20 01/02/20 23:59 23:59 23:59 Intake Total 1139.61 / 1267.11 1850.66 / 1980.66 926.15 / 926.15 Output Total 900 / 1150 1523 / 1673 500 / 500 Balance 239.61 / 117.11 327.66 / 307.66 426.15 / 426.15 General: Alert, Cooperative HEENT: Atraumatic, PERRLA, EOMI, Normocephalic Neck: Supple, No JVD, Negative Carotid Bruits Lungs: Normal air movement Cardiovascular: Regular rate, No murmurs Abdomen: Bowel Sounds Present, Soft, Non Tender Extremities: Capillary Refill Less than 3 Seconds, Edema Skin: No rashes, No breakdown Musculoskeletal: No Tenderness to Palpation of Joints or Extremities Psych/Mental Status: Normal Affect, Appropriate Comment: syed, orally intubated. Microbiology Past 72 Hours 12/30/19 22:30 Blood Culture (Wb) - Anticubital Left Blood Culture - Preliminary No growth in 48 hours. 12/30/19 22:18 Blood Culture (Wb) - Anticubital Right Blood Culture - Preliminary No growth in 48 hours. 12/31/19 04:55 Mucosa - Nasopharyngeal Respiratory Panel (PCR) - Final 12/31/19 04:05 Urine Catheter - Syed Legionella Antigen - Final 12/31/19 04:05 Urine Catheter - Syed Streptococcus pneumoniae Antigen (M - Final Laboratory Results 01/01/20 13:50: POC Glucose 194 H 01/01/20 17:27: POC Glucose 183 H 01/01/20 22:16: POC Glucose 176 H 01/02/20 01:50: POC Glucose 194 H 01/02/20 04:30: PT 24.8 H, INR 2.3 01/02/20 04:30: WBC 13.5 H, RBC 4.37 L, Hgb 11.0 L, Hct 36.2 L, MCV 82.8, MCH 25.2 L, MCHC 30.4 L, RDW Std Deviation 47.6 H, RDW Coeff of Moni 15.8 H, Plt Count 177, MPV 10.2, Immature Gran % (Auto) 1.000 H, Neut % (Auto) 80.8 H, Lymph % (Auto) 7.7 L, Gregory % (Auto) 9.1, Eos % (Auto) 1.1, Baso % (Auto) 0.3, Absolute Neuts (auto) 10.9 H, Absolute Lymphs (auto) 1.04, Nucleated RBC % 0 01/02/20 04:30: Sodium 142, Potassium 3.6, Chloride 108 H, Carbon Dioxide 27.0, Anion Gap 7, BUN 49 H, Creatinine 2.94 H, Estim Creat Clear Calc 20.36, Est GFR (MDRD) Af Amer 27 L, Est GFR (MDRD) Non-Af 22 L, BUN/Creatinine Ratio 16.7, Glucose 186 H, Calcium 9.5 01/02/20 05:48: POC Glucose 212 H 01/02/20 10:11: POC Glucose 253 H Current Medications Acetaminophen (Tylenol Liquid) 650 mg GT Q6H PRN PRN PRN Reason: Pain Score 1-10/Temp > 100.7 F Amlodipine Besylate (Norvasc) 10 mg GT DAILY [facility] Last Admin: 01/02/20 08:23 Dose: 10 mg Documented by: [facility], [facility]) [facility] Last Admin: 01/02/20 08:22 Dose: 81 mg Documented by: Atorvastatin Calcium (Lipitor) 20 mg GT DAILY@2200 [facility] Last Admin: 01/01/20 20:11 Dose: 20 mg Documented by: Chlorhexidine Gluconate () 15 ml PO BID [facility] Last Admin: 01/02/20 08:22 Dose: 15 ml Documented by: Clopidogrel Bisulfate (Plavix) 75 mg GT DAILY [facility] Last Admin: 01/02/20 08:23 Dose: 75 mg Documented by: Dextrose (D50w Syringe) 0 gm IV X1 PRN; Protocol PRN Reason: Hypoglycemia Famotidine (Pepcid) 20 mg GT DAILY [facility] Last Admin: 01/02/20 08:23 Dose: 20 mg Documented by: Furosemide (Lasix) 40 mg IV DAILY [facility] Last Admin: 01/02/20 08:23 Dose: 40 mg Documented by: Glucagon () 1 mg IM .X1 PRN PRN Reason: Hypoglycemia Sodium Chloride () 250 mls @ 15 mls/hr IV .[id number] PRN PRN Reason: Saline Flush Last Infusion: 01/02/20 06:00 Dose: 15 mls/hr Documented by: Sodium Chloride () 250 mls @ 15 mls/hr IV .[id number] PRN PRN Reason: Additional IVPB Infusion Fentanyl Citrate 1,000 mcg/ (Sodium Chloride) 100 mls @ 2.5 mls/hr CONT INF .Q40H [facility]; Protocol Last Titration: 01/02/20 08:45 Dose: 0 mcg/hr, 0 mls/hr Documented by: Meropenem 1 gm/ Sodium (Chloride) 120 mls @ 33 mls/hr IV Q12 [facility] Last Admin: 01/02/20 08:24 Dose: 33 mls/hr Documented by: Enteral Nutritional Formula (Vital Af 1.2 Wilbur Liquid) 1,000 mls @ 50 mls/hr GT .Q20H [facility] Last Admin: 01/02/20 05:20 Dose: Not Given Documented by: Dexmedetomidine HCl 400 mcg/ (Sodium Chloride) 100 mls @ 15.25 mls/hr CONT INF .Q6H34M [facility]; Protocol Last Titration: 01/02/20 11:15 Dose: 0 mcg/kg/hr, 0 mls/hr Documented by: Insulin Glargine (Lantus (Bk)) 28 units SC BID [facility] Last Admin: 01/02/20 10:13 Dose: 28 u Documented by: Insulin Human Lispro (Humalog Kwikpen (Bk)) 0 unit SC Q4 [facility]; Protocol Last Admin: 01/02/20 10:12 Dose: 4 units Documented by: Levothyroxine Sodium (Synthroid) 75 mcg GT DAILY@0600 [facility] Last Admin: 01/02/20 05:45 Dose: 75 mcg Documented by: Ondansetron HCl (Zofran) 4 mg IV Q8H PRN PRN PRN Reason: NAUSEA/VOMITING Senna/Docusate Sodium (Senokot-S, Isabella-Colace) 2 tablet GT BID PRN PRN Reason: CONSTIPATION Last Admin: 01/02/20 04:28 Dose: 2 tablet Documented by: Sodium Bicarbonate (Sodium Bicarbonate) 650 mg GT DAILY [facility] Last Admin: 01/02/20 08:23 Dose: 650 mg Documented by: Sodium Chloride () 10 - 40 ml IV UD PRN PRN Reason: SALINE FLUSH Last Admin: 12/31/19 01:04 Dose: 30 ml Documented by: Spironolactone (Aldactone) 25 mg GT MoWeFr@0800 [facility] Last Admin: 01/02/20 08:22 Dose: 25 mg Documented by: Assessment/Plan All Active Problems (Last Reviewed 12/31/19 @ 00:[address] Ayaan Duque MD) Acute respiratory failure with hypoxia and hypercapnia (Acute) Acute hve-OG-wpqywzqcm myocardial infarction (Acute 12/31/19) Pulmonary edema (Acute) CHF (congestive heart failure) (Acute) CKD stage IV Acute renal failure It seems she has known history of CKD stage IV with baseline creatinine around 2.4 before this admission. This admission creatinine went as high as 3.2 and is down to 2.9. Currently has an indwelling Syed catheter hence the chances of obstruction are low. He denies having any kidney stones or urinary infections in the past. acute change in creatinine is likely related to ongoing cardiac events. Since the creatinine is a little bit better today no further work-up needed. We will check a urine analysis and a renal ultrasound on a nonemergent basis. He is scheduled for coronary angiogram in the setting of non-ST elevation NE. He has CKD stage IV even at baseline. Not significantly different from before. Risk of contrast nephropathy is likely to be the same. Non-ST elevation NE, fluid overload. Received IV Lasix. Possible extubation today further management as per cardiology
--- NOTE | 2020-01-02 12:52 | NURSING ---
Dr Reyes at bedside to assess patient. Patient passes SBT, tolerating well. Patient extubated at 1250 per Ashley RT with this RN at the bedside per V.O. from Dr Reyes. Patient extubated without complication, placed on 2L Nasal cannula, will continue monitoring,
[2020-01-02 16:40] LABS: Bedside Glucose 207 mg/dL (70-110)
[2020-01-02] MEDS: dilTIAZem 25 MG/5 ML Vial IV BOLUS (18:19)
[2020-01-02] MEDS: Furosemide 100 MG/10 ML Vial 60 MG IV (18:54)
[2020-01-02] MEDS: 0.9% Saline Lock 10 ML Syringe IV (18:55)
[2020-01-02] MEDS: Morphine 2 MG/ML Syringe IV (18:55)
[2020-01-02] MEDS: TITRATION PARAMETER CHANGE 1 EACH IV (18:56)
[2020-01-02] MEDS: Nitroglycerin Infusion 250 ML 3 MG CONT INF (20:33)
[2020-01-02] MEDS: Atorvastatin Calcium 20 MG Tablet GT (20:59)
[2020-01-02 21:36] LABS: Bedside Glucose 196 mg/dL (70-110)
[2020-01-02] MEDS: Metoprolol(XL)Succ 100 MG Tablet PO (23:38)
[2020-01-03] VITALS (46 sets, daily range): BP systolic 110–159; BP diastolic 57–106; PULSE 66–101; RESP 11–22; TEMP 36.8–37.2; O2SAT 92–100
[2020-01-03 04:59] LABS: Hematocrit 30.5 % (40-54); Hemoglobin 9.5 g/dL (13.0-16.5); Mean Corp Hgb Conc 31.1 g/dL (32-36); Mean Corpuscular Hgb 25.2 pg (27.0-32.0); Mean Corpuscular Volume 80.9 fL (80-94); Mean Platelet Vol. 10.7 fl (6.2-12.0); Platelet Count 196 K/mm3 (150-450); RBC Distribution Width CV 15.6 % (11.6-14.6); RBC Distribution Width SD 45.8 fl (35.1-43.9); Red Blood Count 3.77 M/mm3 (4.6-6.2); White Blood Count 12.8 K/mm3 (4.4-11.0)
[2020-01-03 05:13] LABS: International Normalized Ratio 1.9; Prothrombin Time (Protime)PT. 21.7 SECONDS (11.7-14.9)
[2020-01-03 05:48] LABS: Anion Gap 6 (5-15); BUN 55 mg/dL (7-18); BUN/Creat Ratio 19.4 RATIO (10-20); Calcium,Total 9.7 mg/dL (8.5-10.1); Chloride 107 mmol/L (98-107); Creatinine, Serum 2.84 mg/dL (0.70-1.30); EST Glomerular Filtration Rate 23 mL/min (>60); Est Glom Filt Rate - Afr Amer 28 mL/min (>60); Estimated Creatinine Clearance 21.07 ml/min; Glucose 134 mg/dL (74-106); Magnesium 2.5 mg/dL (1.6-2.6); Potassium 3.6 mmol/L (3.5-5.1); Sodium Level 141 mmol/L (136-145)
--- NOTE | 2020-01-03 06:07 | PCM.PN.INT ---
Subjective: The patient was seen and examined at the bedside this morning. Events from the last 24 hours have been reviewed. The patient was able to be successfully extubated yesterday afternoon. However, he has had issues with elevated blood pressures and atrial fibrillation with RVR overnight. The patient did have to be started on both a Cardizem and nitro drip. As of this morning, the patient's Cardizem has been discontinued. The patient wore his BiPAP overnight without issue. There are tentative plans for cardiac catheterization this morning. Objective: The patient's most recent lab work, culture data and imaging studies have all been personally reviewed. Respiratory viral panel was negative. Strep and urine Legionella antigens were negative. Blood cultures have shown no growth to date. General: Alert, Cooperative, No apparent distress HEENT: Atraumatic, Normocephalic Oral: No Gingival or Mucosal Lesions/ Ulcerations Neck: Supple, No Nodes, Trachea Midline Lungs: No rhonchi, No wheeze, No rales, Diminished Cardiovascular: Normal S1, Normal S2, Irregular Rate, Tachycardic Abdomen: Bowel Sounds Present, Soft, Non Tender Extremities: No clubbing, No cyanosis Skin: No breakdown Musculoskeletal: No Muscle Wasting Lymphatic: No Cervical, Supraclavicular, or Inguinal Adenopathy Neurological: Neuro grossly intact Psych/Mental Status: Normal Affect, Appropriate Vital Signs Temp Pulse Resp BP Pulse Ox 98.5 F 74 11 L 134/68 H 99 01/03/20 05:00 01/03/20 05:30 01/03/20 05:00 01/03/20 05:45 01/03/20 05:00 Oxygen Flow Rate (L/min) 4 Oxygen Delivery Method Bi-pap Weight: 266 lb 1.567 oz Body Mass Index (BMI) 40.8 Intake and Output for Last 24 Hours 01/01/20 01/02/20 01/03/20 23:59 23:59 23:59 Intake Total 1850.66 / 1980.66 2027.80 / 2054.80 235.05 / 235.05 Output Total 1523 / 1673 1700 / 1700 250 / 250 Balance 327.66 / 307.66 327.80 / 354.80 -14.95 / -14.95 Labs (Last 48 Hours) 01/01/20 01/01/20 01/01/20 06:34 08:45 10:29 WBC RBC Hgb Hct MCV MCH MCHC RDW Std Deviation RDW Coeff of Moni Plt Count MPV Immature Gran % (Auto) Neut % (Auto) Lymph % (Auto) Fergus % (Auto) Eos % (Auto) Baso % (Auto) Absolute Neuts (auto) Absolute Lymphs (auto) Nucleated RBC % PT INR Sodium Potassium Chloride Carbon Dioxide Anion Gap BUN Creatinine Estim Creat Clear Calc Est GFR (MDRD) Af Amer Est GFR (MDRD) Non-Af BUN/Creatinine Ratio Glucose Calcium Magnesium Random Vancomycin 12.4 POC Glucose 177 H 169 H 01/01/20 01/01/20 01/01/20 13:50 17:27 22:16 WBC RBC Hgb Hct MCV MCH MCHC RDW Std Deviation RDW Coeff of Moni Plt Count MPV Immature Gran % (Auto) Neut % (Auto) Lymph % (Auto) [place] % (Auto) Eos % (Auto) Baso % (Auto) Absolute Neuts (auto) Absolute Lymphs (auto) Nucleated RBC % PT INR Sodium Potassium Chloride Carbon Dioxide Anion Gap BUN Creatinine Estim Creat Clear Calc Est GFR (MDRD) Af Amer Est GFR (MDRD) Non-Af BUN/Creatinine Ratio Glucose Calcium Magnesium Random Vancomycin POC Glucose 194 H 183 H 176 H 01/02/20 01/02/20 01/02/20 01:50 04:30 04:30 WBC 13.5 H RBC 4.37 L Hgb 11.0 L Hct 36.2 L MCV 82.8 MCH 25.2 L MCHC 30.4 L RDW Std Deviation 47.6 H RDW Coeff of Moni 15.8 H Plt Count 177 MPV 10.2 Immature Gran % (Auto) 1.000 H Neut % (Auto) 80.8 H Lymph % (Auto) 7.7 L Fergus % (Auto) 9.1 Eos % (Auto) 1.1 Baso % (Auto) 0.3 Absolute Neuts (auto) 10.9 H Absolute Lymphs (auto) 1.04 Nucleated RBC % 0 PT 24.8 H INR 2.3 Sodium Potassium Chloride Carbon Dioxide Anion Gap BUN Creatinine Estim Creat Clear Calc Est GFR (MDRD) Af Amer Est GFR (MDRD) Non-Af BUN/Creatinine Ratio Glucose Calcium Magnesium Random Vancomycin POC Glucose 194 H 01/02/20 01/02/20 01/02/20 04:30 05:48 10:11 WBC RBC Hgb Hct MCV MCH MCHC RDW Std Deviation RDW Coeff of Moni Plt Count MPV Immature Gran % (Auto) Neut % (Auto) Lymph % (Auto) [place]ergus % (Auto) Eos % (Auto) Baso % (Auto) Absolute Neuts (auto) Absolute Lymphs (auto) Nucleated RBC % PT INR Sodium 142 Potassium 3.6 Chloride 108 H Carbon Dioxide 27.0 Anion Gap 7 BUN 49 H Creatinine 2.94 H Estim Creat Clear Calc 20.36 Est GFR (MDRD) Af Amer 27 L Est GFR (MDRD) Non-Af 22 L BUN/Creatinine Ratio 16.7 Glucose 186 H Calcium 9.5 Magnesium Random Vancomycin POC Glucose 212 H 253 H 01/02/20 01/02/20 01/03/20 16:28 20:51 04:45 WBC RBC Hgb Hct MCV MCH MCHC RDW Std Deviation RDW Coeff of Moni Plt Count MPV Immature Gran % (Auto) Neut % (Auto) Lymph % (Auto) [place] % (Auto) Eos % (Auto) Baso % (Auto) Absolute Neuts (auto) Absolute Lymphs (auto) Nucleated RBC % PT 21.7 H INR 1.9 Sodium Potassium Chloride Carbon Dioxide Anion Gap BUN Creatinine Estim Creat Clear Calc Est GFR (MDRD) Af Amer Est GFR (MDRD) Non-Af BUN/Creatinine Ratio Glucose Calcium Magnesium Random Vancomycin POC Glucose 207 H 196 H 01/03/20 01/03/20 04:45 04:45 WBC 12.8 H RBC 3.77 L Hgb 9.5 L Hct 30.5 L MCV 80.9 MCH 25.2 L MCHC 31.1 L RDW Std Deviation 45.8 H RDW Coeff of Moni 15.6 H Plt Count 196 MPV 10.7 Immature Gran % (Auto) Neut % (Auto) Lymph % (Auto) F[place] % (Auto) Eos % (Auto) Baso % (Auto) Absolute Neuts (auto) Absolute Lymphs (auto) Nucleated RBC % PT INR Sodium 141 Potassium 3.6 Chloride 107 Carbon Dioxide 28.0 Anion Gap 6 BUN 55 H Creatinine 2.84 H Estim Creat Clear Calc 21.07 Est GFR (MDRD) Af Amer 28 L Est GFR (MDRD) Non-Af 23 L BUN/Creatinine Ratio 19.4 Glucose 134 H Calcium 9.7 Magnesium 2.5 Random Vancomycin POC Glucose Microbiology 01/01/20 15:30 Sputum, Induced/Lukens Gram Stain - Final 01/01/20 15:30 Sputum, Induced/Lukens Respiratory Culture - Preliminary Appears to be normal respiratory jeremiah. Further studies to follow. 12/30/19 22:30 Blood Culture (Wb) - Anticubital Left Blood Culture - Preliminary No growth in 48 hours. 12/30/19 22:18 Blood Culture (Wb) - Anticubital Right Blood Culture - Preliminary No growth in 48 hours. Clinical Impression(s) from Imaging Studies Chest X-Ray 12/30/19 20:45 IMPRESSION: Stable chronic increased interstitial markings in the lungs. No pulmonary infiltrates or pleural effusions. Electronically Signed: Francisco Mckeon, at 20:59 EDT Tel , Service support , Chest CT 12/30/19 21:29 IMPRESSION: Probable congestive failure with small right pleural effusion. Cannot exclude coexisting pneumonia. Electronically Signed: Nestor Corbett MD at 22:21 EDT , Service support , Chest X-Ray 12/31/19 03:05 IMPRESSION: Pneumonia. Possible pulmonary edema. There has been worsening since the previous study. Electronically Signed: Lissa Bishop, at 3:58 EDT Tel , Service support , KUB X-Ray 12/31/19 03:10 IMPRESSION: An NG tube is seen its tip is below the diaphragm is in good position. Electronically Signed: Lissa Bishop, at 3:59 EDT Tel , Service support , Medical Necessity - Tobacco Use Smoking Status: Former smoker Assessment/Plan All Active Problems (Last Reviewed 12/31/19 @ 00:[address] Ayaan Duque MD) Acute respiratory failure with hypoxia and hypercapnia (Acute) Acute xzf-US-xwftsasxu myocardial infarction (Acute 12/31/19) Pulmonary edema (Acute) CHF (congestive heart failure) (Acute) RECOMMENDATIONS: 1. Continue empiric antimicrobials with plans to complete a 7-day treatment course. 2. Continue once daily Lasix, as tolerated by hemodynamics and renal function. 3. Wean supplemental oxygen to maintain saturations at or above 90%. 4. Tentative plans for cardiac catheterization this morning. 5. Management of hypertension and atrial fibrillation per cardiology recommendations. 6. Continue nocturnal Pap therapy. 7. Encourage incentive spirometer use and mobilize patient as tolerated. IMPRESSIONS: 1. Acute combined respiratory failure Likely multifactorial in etiology with acute decompensated heart failure and subsequent pulmonary edema, along with possible community-acquired pneumonia contributing. The patient improved from a respiratory perspective with antimicrobials and diuresis. He was able to be extubated on January 01. Plan to continue to wean supplemental oxygen to maintain saturations at or above 90%. Encourage incentive spirometer use and mobilize patient as tolerated. Plan to complete a 7-day treatment course of antimicrobials. 2. Decompensated heart failure/non-ST segment elevation [place]/chronic atrial fibrillation/coronary artery disease Cardiology is currently following to assist with medical management. Continue diuretic therapy. Will defer management of hypertension and atrial fibrillation to cardiology. There are tentative plans for cardiac catheterization later this morning. 3. Obesity/obstructive sleep apnea/hypothyroidism/hypertension/hyperlipidemia/diabetes mellitus Complicates care, management, recovery and prognosis. Continue sliding scale insulin coverage. This note was generated with [employer] dictation software. It may contain incorrect words, spelling, and punctuation that were not noted in checking the note before signing. Inpatient E&M: [address] [facility] L[address]
[2020-01-03] MEDS: Levothyroxine 75 MCG Tablet GT (06:21)
[2020-01-03] MEDS: Aspirin 81 MG TAB.CHEW GT (06:22)
[2020-01-03] MEDS: Metoprolol(XL)Succ 100 MG Tablet PO (06:22)
[2020-01-03] MEDS: amLODIPine 10 MG Tablet GT (06:22)
[2020-01-03] MEDS: Clopidogrel Bisulfate 75 MG Tablet GT (06:23)
[2020-01-03 07:01] LABS: Bedside Glucose 127 mg/dL (70-110)
--- NOTE | 2020-01-03 07:13 | PN_ITS ---
Patient Problems: Active and Suspected Problems (Last Reviewed 12/31/19 @ 00:[address] Ayaan Duque MD) Pulmonary edema (Acute) CHF (congestive heart failure) (Acute) Reason for Visit: Follow-up congestive heart failure, acute non-STEMI Subjective: Patient was started on nitroglycerin drip during the night as a result of markedly elevated blood pressure. Patient underwent left heart catheterization Objective: GENERAL: cooperative HEENT: Atraumatic; EYES; Anicteric, Normal Conjunctiva NECK; supple, normal thyroid, RESPIRATORY: Diminished to auscultation CARDIOVASCULAR: Regular S1 S2, GI: soft, normoactive bowel sounds, : No Renal angle tenderness; EXTREMITIES: No edema, no clubbing, MUSCULOSKELETAL: no muscle waisting NEURO: Awake; no lateralizing signs. SKIN: No Rash PSYCH; Flat affect Vitals/I&O's: Vital Signs Temp Pulse Resp BP Pulse Ox 98.6 F 74 14 126/84 H 97 01/03/20 06:00 01/03/20 06:30 01/03/20 06:30 01/03/20 06:30 01/03/20 06:30 Oxygen Flow Rate (L/min) 4 Oxygen Delivery Method Bi-pap Weight: 120.7 kg Body Mass Index (BMI) 40.8 Intake and Output for Last 24 Hours 01/01/20 01/02/20 01/03/20 23:59 23:59 23:59 Intake Total 1850.66 / 1980.66 2027.80 / 2054.80 276.30 / 276.30 Output Total 1523 / 1673 1700 / 1700 360 / 360 Balance 327.66 / 307.66 327.80 / 354.80 -83.70 / -83.70 Microbiology Past 72 Hours 01/01/20 15:30 Sputum, Induced/Lukens Gram Stain - Final 01/01/20 15:30 Sputum, Induced/Lukens Respiratory Culture - Preliminary Appears to be normal respiratory jeremiah. Further studies to follow. 12/30/19 22:30 Blood Culture (Wb) - Anticubital Left Blood Culture - Preliminary No growth in 48 hours. 12/30/19 22:18 Blood Culture (Wb) - Anticubital Right Blood Culture - Preliminary No growth in 48 hours. 12/31/19 04:55 Mucosa - Nasopharyngeal Respiratory Panel (PCR) - Final 12/31/19 04:05 Urine Catheter - Melendez Legionella Antigen - Final 12/31/19 04:05 Urine Catheter - Melendez Streptococcus pneumoniae Antigen (M - Final Laboratory Results 01/02/20 10:11: POC Glucose 253 H 01/02/20 16:28: POC Glucose 207 H 01/02/20 20:51: POC Glucose 196 H 01/03/20 04:45: PT 21.7 H, INR 1.9 01/03/20 04:45: WBC 12.8 H, RBC 3.77 L, Hgb 9.5 L, Hct 30.5 L, MCV 80.9, MCH 25.2 L, MCHC 31.1 L, RDW Std Deviation 45.8 H, RDW Coeff of Moni 15.6 H, Plt Count 196, MPV 10.7 01/03/20 04:45: Sodium 141, Potassium 3.6, Chloride 107, Carbon Dioxide 28.0, Anion Gap 6, BUN 55 H, Creatinine 2.84 H, Estim Creat Clear Calc 21.07, Est GFR (MDRD) Af Amer 28 L, Est GFR (MDRD) Non-Af 23 L, BUN/Creatinine Ratio 19.4, Glucose 134 H, Calcium 9.7, Magnesium 2.5 01/03/20 06:58: POC Glucose 127 H Current Medications Acetaminophen (Tylenol Liquid) 650 mg GT Q6H PRN PRN PRN Reason: Pain Score 1-10/Temp > 100.7 F Amlodipine Besylate (Norvasc) 10 mg GT DAILY [facility] Last Admin: 01/03/20 06:22 Dose: 10 mg Documented by: Aspirin ([facility], Baby) [facility] Last Admin: 01/03/20 06:22 Dose: 81 mg Documented by: Atorvastatin Calcium (Lipitor) 20 mg GT DAILY@2200 [facility] Last Admin: 01/02/20 20:59 Dose: 20 mg Documented by: Clopidogrel Bisulfate (Plavix) 75 mg GT DAILY [facility] Last Admin: 01/03/20 06:23 Dose: 75 mg Documented by: Dextrose (D50w Syringe) 0 gm IV X1 PRN; Protocol PRN Reason: Hypoglycemia Famotidine (Pepcid) 20 mg GT DAILY [facility] Last Admin: 01/02/20 08:23 Dose: 20 mg Documented by: Furosemide (Lasix) 40 mg IV DAILY [facility] Last Admin: 01/02/20 08:23 Dose: 40 mg Documented by: Glucagon () 1 mg IM .X1 PRN PRN Reason: Hypoglycemia Sodium Chloride () 250 mls @ 15 mls/hr IV .[id number] PRN PRN Reason: Additional IVPB Infusion Meropenem 1 gm/ Sodium (Chloride) 120 mls @ 33 mls/hr IV Q12 [facility] Last Infusion: 01/03/20 02:36 Dose: Infused Documented by: Diltiazem HCl 125 mg/ Dextrose 125 mls @ 15 mls/hr IV .Q8H20M [facility]; Protocol Last Titration: 01/03/20 06:00 Dose: 0 mg/hr, 0 mls/hr Documented by: Sodium Chloride () 1,000 mls @ 0 mls/hr IV .Q0M [facility] Nitroglycerin/Dextrose () 250 mls @ 3 mls/hr CONT INF .[id number] [facility]; Protocol Last Titration: 01/03/20 06:30 Dose: 25 mcg/min, 15 mls/hr Documented by: Insulin Glargine (Lantus (Bkc)) 28 units SC BID [facility] Last Admin: 01/02/20 20:52 Dose: 28 u Documented by: Insulin Human Lispro (Humalog Kwikpen (Bk)) 0 unit SC ACHS [facility]; Protocol Last Admin: 01/03/20 06:59 Dose: Not Given Documented by: Levothyroxine Sodium (Synthroid) 75 mcg GT DAILY@0600 [facility] Last Admin: 01/03/20 06:21 Dose: 75 mcg Documented by: Metoprolol Succinate (Toprol Xl ([place]eta [place])) 100 mg PO DAILY [facility] Last Admin: 01/03/20 06:22 Dose: 100 mg Documented by: Ondansetron HCl (Zofran) 4 mg IV Q8H PRN PRN PRN Reason: NAUSEA/VOMITING Senna/Docusate Sodium (Senokot-S, Isabella-Colace) 2 tablet GT BID PRN PRN Reason: CONSTIPATION Last Admin: 01/02/20 04:28 Dose: 2 tablet Documented by: Sodium Bicarbonate (Sodium Bicarbonate) 650 mg GT DAILY [facility] Last Admin: 01/02/20 08:23 Dose: 650 mg Documented by: Sodium Chloride () 10 - 40 ml IV UD PRN PRN Reason: SALINE FLUSH Last Admin: 01/02/20 18:55 Dose: 20 ml Documented by: Spironolactone (Aldactone) 25 mg GT MoWeFr@0800 [facility] Last Admin: 01/02/20 08:22 Dose: 25 mg Documented by: STROKE Vital Signs/Narrative: Vital Signs Temp Pulse Resp BP Pulse Ox 01/03/20 06:30 74 14 126/84 H 97 01/03/20 06:22 76 136/83 H 01/03/20 06:15 83 18 136/83 H 96 01/03/20 06:00 98.6 F 71 17 136/89 H 99 01/03/20 05:45 134/68 H 01/03/20 05:30 74 127/75 H 01/03/20 05:15 70 132/62 H 01/03/20 05:00 98.5 F 69 11 L 124/79 H 99 01/03/20 04:45 71 131/80 H 01/03/20 04:30 69 121/73 H 01/03/20 04:15 70 122/71 H 01/03/20 04:00 98.6 F 68 17 115/67 99 01/03/20 03:45 75 01/03/20 03:30 90 01/03/20 03:15 71 Medical Necessity - Tobacco Use Smoking Status: Former smoker Assessment/Plan All Active Problems (Last Reviewed 12/31/19 @ 00:[address] Ayaan Duque MD) Acute respiratory failure with hypoxia and hypercapnia (Acute) Acute [id number] myocardial infarction (Acute 12/31/19) Pulmonary edema (Acute) CHF (congestive heart failure) (Acute) Patient is a 79-year-old gentleman admitted with progressive shortness of breath and assessment of acute hypoxic and hypercapnic respiratory failure secondary to CHF was made. Patient was intubated and admitted to the intensive care unit 1. Acute hypoxic and hypercapnic respiratory failure ?Secondary to pulmonary edema as a result of congestive heart failure. Patient remains on the vent. Attempts at weaning on the morning of 01/02/2020 unsuccessful plan is for patient to undergo repeat weaning trial 01/03/2020: Patient weaned off the vent 2. Acute pulmonary edema ?Secondary to congestive heart failure with reduced ejection fraction of 45% with inferior hypokinesis. Patient was managed with diuretics held in view of worsening kidney function 3. Acute non-ST segment elevation SC ?Patient managed per protocol consult placed to cardiology plans for patient to undergo left heart catheterization on 01/03/2020 01/03/2020: Patient left heart catheterization demonstrated Normal left main coronary artery. Left anterior descending artery diffusely diseased in the mid segment of approximately 60% in the distal segment of 80 to 90% and a long segment. Left circumflex artery with moderate diffuse disease in the second obtuse marginal branch with 80% stenosis and left to right collaterals. Right coronary artery with proximal 60 to 70% stenosis and mild diffuse disease and midsegment 70% stenosis. Previously placed stent is patent. Based on the above angiographic findings cardiology recommended aggressive medical therapy. 4. Coronary artery disease ?With previous PCI. Patient currently on dual antiplatelet therapy with aspirin and Plavix in addition to statin therapy. As stated above plan is for patient to undergo elective catheterization on 01/03/2020. .5 Chronic A. fib ?Rate controlled metoprolol. Patient is on systemic anticoagulation with Coumadin currently being held in a suspicion of patient left heart catheterization 6. Chronic kidney disease stage IV ?Creatinine on admission was 2.43 did worsen peaking at 3.25, improving with creatinine at 2.94 as of 01/02/2020. Also placed to nephrology 7. Diabetes mellitus type 2 ?With complications including diabetic nephropathy. Patient is a long-acting insulin in addition to sliding scale 8. Hypertension - Blood pressure controlled, home medications continued with dose adjustment as needed -01/03/2020: Patient was started on nitroglycerin drip as a result of markedly elevated blood pressure 9. Hypothyroidism - Patient is on levothyroxine home dose continued 10. Dyslipidemia -Patient is on statin therapy, continued at home dose 11. DVT prophylaxis ?Patient is on Coumadin which is currently being held as stated above Active Medications Acetaminophen (Tylenol) 650 mg PO Q6H PRN PRN PRN Reason: Pain Score 1-10/Temp > 100.7 F Amlodipine Besylate (Norvasc) 10 mg PO DAILY [facility] Aspirin (Aspirin, Baby) 81 mg PO DAILYCM [facility] Atorvastatin Calcium (Lipitor) 20 mg PO DAILY@2200 [facility] Clopidogrel Bisulfate (Plavix) 75 mg PO DAILY [facility] Dextrose (D50w Syringe) 0 gm IV X1 PRN; Protocol PRN Reason: Hypoglycemia Famotidine (Pepcid) 20 mg PO DAILY [facility] Furosemide (Lasix) 40 mg IV DAILY [facility] Last Admin: 01/02/20 08:23 Dose: 40 mg Documented by: Glucagon () 1 mg IM .X1 PRN PRN Reason: Hypoglycemia Sodium Chloride () 250 mls @ 15 mls/hr IV .[id number] PRN PRN Reason: Additional IVPB Infusion Meropenem 1 gm/ Sodium (Chloride) 120 mls @ 33 mls/hr IV Q12 [facility] Last Infusion: 01/03/20 02:36 Dose: Infused Documented by: Diltiazem HCl 125 mg/ Dextrose 125 mls @ 15 mls/hr IV .Q8H20M [facility]; Protocol Last Titration: 01/03/20 06:00 Dose: 0 mg/hr, 0 mls/hr Documented by: Sodium Chloride () 1,000 mls @ 0 mls/hr IV .Q0M [facility] Nitroglycerin/Dextrose () 250 mls @ 3 mls/hr CONT INF .[id number] [facility]; Protocol Last Titration: 01/03/20 08:50 Dose: 15 mcg/min, 9 mls/hr Documented by: Insulin Glargine (Lantus ([facility])) 28 units SC BID [facility] Last Admin: 01/02/20 20:52 Dose: 28 u Documented by: Insulin Human Lispro (Humalog Kwikpen ([facility])) 0 unit SC ACHS [facility]; Protocol Last Admin: 01/03/20 06:59 Dose: Not Given Documented by: Isosorbide Mononitrate (Imdur) 60 mg PO DAILY [facility] Levothyroxine Sodium (Synthroid) 75 mcg PO DAILY@0600 [facility] Metoprolol Succinate (Toprol Xl ([place])) 100 mg PO DAILY [facility] Last Admin: 01/03/20 06:22 Dose: 100 mg Documented by: Ondansetron HCl (Zofran) 4 mg IV Q8H PRN PRN PRN Reason: NAUSEA/VOMITING Senna/Docusate Sodium (Senokot-S, Isabella-Colace) 2 tablet PO BID PRN PRN Reason: CONSTIPATION Sodium Bicarbonate (Sodium Bicarbonate) 650 mg PO DAILY [facility] Sodium Chloride () 10 - 40 ml IV UD PRN PRN Reason: SALINE FLUSH Last Admin: 01/02/20 18:55 Dose: 20 ml Documented by: Spironolactone (Aldactone) 25 mg PO MoWeFr@0800 [facility] Inpatient E&M: 53206 Subs Hosp L3
--- NOTE | 2020-01-03 07:52 | NURSING ---
TO [employer]
--- NOTE | 2020-01-03 08:17 | PN.CARD_ITS ---
Subjectve: Patient seen and evaluated and underwent cardiac catheterization this morning Objective: Vital Signs Temp Pulse Resp BP Pulse Ox 98.6 F 74 14 126/84 H 97 01/03/20 06:00 01/03/20 06:30 01/03/20 06:30 01/03/20 06:30 01/03/20 06:30 Oxygen Flow Rate (L/min) 4 Oxygen Delivery Method Bi-pap Weight: 266 lb 1.567 oz Body Mass Index (BMI) 40.8 Intake and Output for Last 24 Hours 01/01/20 01/02/20 01/03/20 23:59 23:59 23:59 Intake Total 1850.66 / 1980.66 2027.80 / 2054.80 276.30 / 276.30 Output Total 1523 / 1673 1700 / 1700 360 / 360 Balance 327.66 / 307.66 327.80 / 354.80 -83.70 / -83.70 General: Awake, Alert, Oriented x 3 HEENT: PERRL, EOMI, Sclera Non Icteric Neck: Supple, Good ROM, No Lymph Node Enlargement Lungs: Clear to auscultation Cardiovascular: Irregular Rhythm, Normal S1, Normal S2, No Murmurs, No Rubs, No Gallops Vascular: No Carotid Bruits, Normal Femoral Pulses, Normal Radial Pulses, Normal Dorsalis Pedal Pulse, Normal Posterior Tibial Pulses Abdomen: Bowel Sounds Present, Soft, Non Tender, No HSM, No Organomegaly Extremities: No Cyanosis, No Clubbing, No edema Neurological: No Focal Motor or Sensory Deficit 01/03/20 04:45: PT 21.7 H, INR 1.9 01/03/20 04:45: WBC 12.8 H, RBC 3.77 L, Hgb 9.5 L, Hct 30.5 L, MCV 80.9, MCH 25.2 L, MCHC 31.1 L, Plt Count 196, MPV 10.7 01/03/20 04:45: Sodium 141, Potassium 3.6, Chloride 107, Carbon Dioxide 28.0, Anion Gap 6, BUN 55 H, Creatinine 2.84 H, Est GFR (MDRD) Af Amer 28 L, Est GFR (MDRD) Non-Af 23 L, BUN/Creatinine Ratio 19.4, Glucose 134 H, Calcium 9.7, Magnesium 2.5 Rhythm: EKG: ECHO: Stress Test: Cardiac Cath: PCI: CT Surgery: Holter monitor: EPS: PPM: CXR: Chest CT Scan: Medical Necessity - Tobacco Use Smoking Status: Former smoker Assessment/Plan Non-ST elevation myocardial infarction. * He presents with a non-ST elevation myocardial infarction. He does have renal dysfunction. * His catheterization today demonstrated the following: Normal left main coronary artery. Left anterior descending artery diffusely diseased in the mid segment of approximately 60% in the distal segment of 80 to 90% and a long segment. Left circumflex artery with moderate diffuse disease in the second obtuse marginal branch with 80% stenosis and left to right collaterals. Right coronary artery with proximal 60 to 70% stenosis and mild diffuse disease and midsegment 70% stenosis. Previously placed stent is patent. Based on the above angiographic findings the patient will be treated with aggressive medical therapy. 2. Hypertension * His blood pressure appears to be under good control at this time. The plan is to continue the current medical therapy without any major changes. * Will restart his beta-carl with Toprol-XL 100 mg a day 3. Atrial fibrillation * Patient's had atrial fibrillation with a controlled ventricular response rate. * He will continue beta-carl for rate control. * Will continue amiodarone for rate control * Will restart anticoagulation in a.m. 4. Shortness of breath * The above is likely secondary to congestive heart failure which may be diastolically mediated as well as obstructive sleep apnea. I do not previously see any evidence of obstructive lung disease in him. * He also does have coronary artery disease which may be contributing to the above. * He does have evidence of mild low ventricular systolic dysfunction with apical hypokinesis estimated EF 40%. * Thank you for allowing me to participate in the care of your patient. Please don't hesitate to call if any issues arise.
--- NOTE | 2020-01-03 08:44 | CL.D_ITS ---
Patient Name: HANS GLASS Study Date: 01/03/2020 Performing: Russ Boss MD Ht: 68 inches 173 cm : 1940 Wt: 267.1 lbs 121 kg Age: 79 Gender: male BSA: 2.31 PROCEDURE(S) PERFORMED AY97-[facility] CLINICAL PROFILE AND INDICATIONS Indications: Suspected CAD Heart Failure: NYHA Class: 3, Newly Diagnosed: Yes, Heart Failure Type: Systolic Stress/Imaging Stress/Image Study Performed: No CONCLUSIONS Diffuse three-vessel disease involving a long segment of the LAD as well as the distal LAD with sever e disease; left circumflex artery with diffuse disease and second obtuse marginal branch with high-gr felton proximal stenosis; distally previously stented right coronary artery with ostial 70% stenosis, pr eviously placed stent patent, distal 70% stenosis. RECOMMENDATIONS Medical therapy DESCRIPTION OF PROCEDURE The patient arrived to the procedure lab. The risks and benefits of the procedure as well as a full d escription of our services here and current unavailability of surgical backup were fully explained to the patient and/or their significant other prior to the catheterization. The Timeout was completed, verifying the correct patient and procedure. The patient's procedural site was prepped and draped in the usual fashion. Local anesthetic was given subcutaneously to right radial region with Lidocaine 2% . Using a modified Seldinger technique, arterial access was obtained via the right radial artery, a 6 Fr sheath was inserted. Right Coronary Artery selective angiography was performed in multiple views using a 5 Fr. 4.0 [place] catheter. Left Coronary Artery selective angiography was performed in multipl e views using a 5 Fr. 4.0 [place] catheter.The arterial sheath was pulled and a TR Band was applied for hemostasis CORONARY ANGIOGRAPHY DOMINANCE: Right Dominant LEFT HEART ASSESSMENT Left Ventricular Ejection Fraction: by Echo 40 % Anterior Hypokinesis - Moderate Depressed Left Ventricular systolic function LEFT MAIN: Mild calcification, Mild calcification LEFT ANTERIOR DESCENDING ARTERY: MID LAD: Diffusely diseased up to 60 % DISTAL LAD: Diffusely diseased up to 80 % CIRCUMFLEX ARTERY: OM 2: Proximal - 80 % Stenosis RIGHT CORONARY ARTERY: OSTIAL RCA: 70 % Stenosis DISTAL RCA: Previously placed stent is patent, 70 % Stenosis COMPLICATIONS No Complications PROCEDURE MEDICATIONS Fentanyl 50 mcg IV Oxygen: 6 L/min via nasal cannula Oxygen: Patient placed on his home bipap machine SUMMARY OF HEMODYNAMIC DATA Time AIR REST ECG 07:35:46 AO 120/67 (92) SA 07:57:01 Signed By Russ Boss MD On 01/03/2020 08:43:16 Russ Boss MD
[2020-01-03] MEDS: Isosorbide Mononitrate 60 MG Tablet PO (10:04)
[2020-01-03] MEDS: Furosemide 40 MG/4 ML Vial IV (10:05)
[2020-01-03] MEDS: Sodium Bicarbonate 650 MG Tablet PO (10:06)
[2020-01-03] MEDS: amLODIPine 10 MG Tablet PO (10:06)
[2020-01-03] MEDS: Famotidine 20 MG Tablet PO (10:07)
[2020-01-03] MEDS: Clopidogrel Bisulfate 75 MG Tablet PO (10:13)
[2020-01-03 11:26] LABS: Bedside Glucose 153 mg/dL (70-110)
[2020-01-03] MEDS: levoFLOXacin 750 MG Tablet PO (12:31)
[2020-01-03] MEDS: Insulin Lispro 100 UNIT/ML INSULN.PEN SC (12:31)
--- NOTE | 2020-01-03 13:06 | PCM.PN.REN ---
Patient Problems: Active and Suspected Problems (Last Reviewed 12/31/19 @ 00:[address] Ayaan Duque MD) Pulmonary edema (Acute) CHF (congestive heart failure) (Acute) Subjective: no new complaints - Physical Exam Vitals/I&O's: Vital Signs Temp Pulse Resp BP Pulse Ox 98.2 F 70 17 149/79 H 100 01/03/20 11:00 01/03/20 11:00 01/03/20 11:00 01/03/20 11:00 01/03/20 09:00 Oxygen Flow Rate (L/min) 5 Oxygen Delivery Method Nasal Cannula Weight: 120.7 kg Body Mass Index (BMI) 40.8 Intake and Output for Last 24 Hours 01/01/20 01/02/20 01/03/20 23:59 23:59 23:59 Intake Total 1850.66 / 1980.66 2027.80 / 2054.80 319.90 / 319.90 Output Total 1523 / 1673 1700 / 1700 360 / 360 Balance 327.66 / 307.66 327.80 / 354.80 -40.10 / -40.10 General: Alert, Oriented x3, Cooperative HEENT: Atraumatic, PERRLA, EOMI, Normocephalic Neck: Supple, No JVD, Negative Carotid Bruits Lungs: Clear to auscultation, Normal air movement Cardiovascular: Regular rate, No murmurs Abdomen: Bowel Sounds Present, Soft, Non Tender Extremities: No edema, Capillary Refill Less than 3 Seconds Skin: No rashes, No breakdown Musculoskeletal: No Tenderness to Palpation of Joints or Extremities Neurological: Cranial nerves II-XII grossly intact Psych/Mental Status: Normal Affect, Appropriate Microbiology Past 72 Hours 01/01/20 15:30 Sputum, Induced/Lukens Gram Stain - Final 01/01/20 15:30 Sputum, Induced/Lukens Respiratory Culture - Preliminary Presumptive C albicans 12/30/19 22:30 Blood Culture (Wb) - Anticubital Left Blood Culture - Preliminary No growth in 48 hours. 12/30/19 22:18 Blood Culture (Wb) - Anticubital Right Blood Culture - Preliminary No growth in 48 hours. 12/31/19 04:55 Mucosa - Nasopharyngeal Respiratory Panel (PCR) - Final Laboratory Results 01/02/20 16:28: POC Glucose 207 H 01/02/20 20:51: POC Glucose 196 H 01/03/20 04:45: PT 21.7 H, INR 1.9 01/03/20 04:45: WBC 12.8 H, RBC 3.77 L, Hgb 9.5 L, Hct 30.5 L, MCV 80.9, MCH 25.2 L, MCHC 31.1 L, RDW Std Deviation 45.8 H, RDW Coeff of Moni 15.6 H, Plt Count 196, MPV 10.7 01/03/20 04:45: Sodium 141, Potassium 3.6, Chloride 107, Carbon Dioxide 28.0, Anion Gap 6, BUN 55 H, Creatinine 2.84 H, Estim Creat Clear Calc 21.07, Est GFR (MDRD) Af Amer 28 L, Est GFR (MDRD) Non-Af 23 L, BUN/Creatinine Ratio 19.4, Glucose 134 H, Calcium 9.7, Magnesium 2.5 01/03/20 06:58: POC Glucose 127 H 01/03/20 11:23: POC Glucose 153 H Current Medications Acetaminophen (Tylenol) 650 mg PO Q6H PRN PRN PRN Reason: Pain Score 1-10/Temp > 100.7 F Amlodipine Besylate (Norvasc) 10 mg PO DAILY [facility] Last Admin: 01/03/20 10:06 Dose: 10 mg Documented by: Aspirin (Aspirin, Baby) 81 mg PO DAILYCM [facility] Atorvastatin Calcium (Lipitor) 20 mg PO DAILY@2200 [facility] Clopidogrel Bisulfate (Plavix) 75 mg PO DAILY [facility] Last Admin: 01/03/20 10:13 Dose: 75 mg Documented by: Dextrose (D50w Syringe) 0 gm IV X1 PRN; Protocol PRN Reason: Hypoglycemia Famotidine (Pepcid) 20 mg PO DAILY [facility] Last Admin: 01/03/20 10:07 Dose: 20 mg Documented by: Furosemide (Lasix) 40 mg IV DAILY [facility] Last Admin: 01/03/20 10:05 Dose: 40 mg Documented by: Glucagon () 1 mg IM .X1 PRN PRN Reason: Hypoglycemia Sodium Chloride () 250 mls @ 15 mls/hr IV .[id number] PRN PRN Reason: Additional IVPB Infusion Diltiazem HCl 125 mg/ Dextrose 125 mls @ 15 mls/hr IV .Q8H20M [facility]; Protocol Last Titration: 01/03/20 06:00 Dose: 0 mg/hr, 0 mls/hr Documented by: Sodium Chloride () 1,000 mls @ 0 mls/hr IV .Q0M [facility] Nitroglycerin/Dextrose () 250 mls @ 3 mls/hr CONT INF .[id number] [facility]; Protocol Last Titration: 01/03/20 10:21 Dose: 0 mcg/min, 0 mls/hr Documented by: Insulin Glargine (Lantus ([facility])) 28 units SC BID [facility] Last Admin: 01/03/20 10:07 Dose: 28 u Documented by: Insulin Human Lispro (Humalog Kwikpen ([facility])) 0 unit SC ACHS [facility]; Protocol Last Admin: 01/03/20 06:59 Dose: Not Given Documented by: Isosorbide Mononitrate (Imdur) 60 mg PO DAILY [facility] Last Admin: 01/03/20 10:04 Dose: 60 mg Documented by: Levofloxacin (Levaquin Tablet) 750 mg PO Q48 [facility] Stop: 01/05/20 10:01 Levothyroxine Sodium (Synthroid) 75 mcg PO DAILY@0600 [facility] Metoprolol Succinate (Toprol Xl ([place])) 100 mg PO DAILY [facility] Last Admin: 01/03/20 06:22 Dose: 100 mg Documented by: Ondansetron HCl (Zofran) 4 mg IV Q8H PRN PRN PRN Reason: NAUSEA/VOMITING Senna/Docusate Sodium (Senokot-S, Isabella-Colace) 2 tablet PO BID PRN PRN Reason: CONSTIPATION Sodium Bicarbonate (Sodium Bicarbonate) 650 mg PO DAILY [facility] Last Admin: 01/03/20 10:06 Dose: 650 mg Documented by: Sodium Chloride () 10 - 40 ml IV UD PRN PRN Reason: SALINE FLUSH Last Admin: 01/02/20 18:55 Dose: 20 ml Documented by: Spironolactone (Aldactone) 25 mg PO MoWeFr@0800 [facility] Medical Necessity - Tobacco Use Smoking Status: Former smoker Assessment/Plan All Active Problems (Last Reviewed 12/31/19 @ 00:[address] Ayaan Duque MD) Acute respiratory failure with hypoxia and hypercapnia (Acute) Acute [id number] myocardial infarction (Acute 12/31/19) Pulmonary edema (Acute) CHF (congestive heart failure) (Acute) CKD stage IV Acute renal failure It seems she has known history of CKD stage IV with baseline creatinine around 2.4 before this admission. This admission creatinine went as high as 3.2 and is down to 2.8. Currently has an indwelling Melendez catheter hence the chances of obstruction are low. He denies having any kidney stones or urinary infections in the past. acute change in creatinine is likely related to ongoing cardiac events. Since the creatinine is a little bit better today no further work-up needed. s/p angiogram this am. urine output remains ok. Non-ST elevation [place], fluid overload. Received IV Lasix. extubated
[2020-01-03 16:11] LABS: Bedside Glucose 133 mg/dL (70-110)
[2020-01-03] MEDS: Atorvastatin Calcium 20 MG Tablet PO (20:56)
[2020-01-03 21:11] LABS: Bedside Glucose 129 mg/dL (70-110)
[2020-01-04] VITALS (20 sets, daily range): BP systolic 114–166; BP diastolic 57–93; PULSE 76–98; RESP 12–22; TEMP 36.5–37.2; O2SAT 94–100
[2020-01-04 04:17] LABS: Hematocrit 30.8 % (40-54); Hemoglobin 9.5 g/dL (13.0-16.5); Mean Corp Hgb Conc 30.8 g/dL (32-36); Mean Corpuscular Hgb 24.8 pg (27.0-32.0); Mean Corpuscular Volume 80.4 fL (80-94); Mean Platelet Vol. 9.8 fl (6.2-12.0); Platelet Count 196 K/mm3 (150-450); RBC Distribution Width CV 15.7 % (11.6-14.6); Red Blood Count 3.83 M/mm3 (4.6-6.2); White Blood Count 8.1 K/mm3 (4.4-11.0)
[2020-01-04 04:27] LABS: International Normalized Ratio 1.7; Prothrombin Time (Protime)PT. 19.1 SECONDS (11.7-14.9)
[2020-01-04 04:30] LABS: Anion Gap 7 (5-15); BUN 59 mg/dL (7-18); BUN/Creat Ratio 21.9 RATIO (10-20); Calcium,Total 9.5 mg/dL (8.5-10.1); Chloride 105 mmol/L (98-107); EST Glomerular Filtration Rate 24 mL/min (>60); Est Glom Filt Rate - Afr Amer 30 mL/min (>60); Estimated Creatinine Clearance 22.17 ml/min; Glucose 73 mg/dL (74-106); Potassium 3.4 mmol/L (3.5-5.1); Sodium Level 140 mmol/L (136-145)
[2020-01-04] MEDS: Levothyroxine 75 MCG Tablet PO (05:45)
--- NOTE | 2020-01-04 07:12 | PCM.PN.HOSP ---
Patient Problems: Active and Suspected Problems (Last Reviewed 12/31/19 @ 00:[address] Ayaan Duque MD) Pulmonary edema (Acute) CHF (congestive heart failure) (Acute) Reason for Visit: CHF Acute NSTEMI Subjective: Patient underwent left heart catheterization demonstrated on 01/03/2020; cardiology recommended optimization of medical therapy. Plans for patient to be transferred from ICU to PCU. Objective: GENERAL: cooperative HEENT: Atraumatic; EYES; Anicteric, Normal Conjunctiva NECK; supple, normal thyroid, RESPIRATORY: Diminished to auscultation CARDIOVASCULAR: Regular S1 S2, GI: soft, normoactive bowel sounds, : No Renal angle tenderness; EXTREMITIES: No edema, no clubbing, MUSCULOSKELETAL: no muscle waisting NEURO: Awake; no lateralizing signs. SKIN: No Rash PSYCH; Flat affect Vitals/I&O's: Vital Signs Temp Pulse Resp BP Pulse Ox 98.4 F 88 20 H 159/84 H 94 01/04/20 06:00 01/04/20 06:00 01/04/20 06:00 01/04/20 06:00 01/04/20 06:00 Oxygen Flow Rate (L/min) 3 Oxygen Delivery Method Nasal Cannula Weight: 121.7 kg Body Mass Index (BMI) 40.8 Intake and Output for Last 24 Hours 01/02/20 01/03/20 01/04/20 23:59 23:59 23:59 Intake Total 2027.80 / 2054.80 1159.90 / 1159.90 60 / 60 Output Total 1700 / 1700 1945 / 1945 615 / 615 Balance 327.80 / 354.80 -785.10 / -785.10 -555 / -555 Microbiology Past 72 Hours 01/01/20 15:30 Sputum, Induced/Lukens Gram Stain - Final 01/01/20 15:30 Sputum, Induced/Lukens Respiratory Culture - Preliminary Presumptive C albicans 12/30/19 22:30 Blood Culture (Wb) - Anticubital Left Blood Culture - Preliminary No growth in 48 hours. 12/30/19 22:18 Blood Culture (Wb) - Anticubital Right Blood Culture - Preliminary No growth in 48 hours. Laboratory Results 01/03/20 11:23: POC Glucose 153 H 01/03/20 16:06: POC Glucose 133 H 01/03/20 20:50: POC Glucose 129 H 01/04/20 04:10: WBC 8.1, RBC 3.83 L, Hgb 9.5 L, Hct 30.8 L, MCV 80.4, MCH 24.8 L, MCHC 30.8 L, RDW Std Deviation 46.0 H, RDW Coeff of Moni 15.7 H, Plt Count 196, MPV 9.8 01/04/20 04:10: PT 19.1 H, INR 1.7 01/04/20 04:10: Sodium 140, Potassium 3.4 L, Chloride 105, Carbon Dioxide 28.0, Anion Gap 7, BUN 59 H, Creatinine 2.70 H, Estim Creat Clear Calc 22.17, Est GFR (MDRD) Af Amer 30 L, Est GFR (MDRD) Non-Af 24 L, BUN/Creatinine Ratio 21.9 H, Glucose 73 L, Calcium 9.5 Current Medications Acetaminophen (Tylenol) 650 mg PO Q6H PRN PRN PRN Reason: Pain Score 1-10/Temp > 100.7 F Amlodipine Besylate (Norvasc) 10 mg PO DAILY [facility] Last Admin: 01/03/20 10:06 Dose: 10 mg Documented by: [facility] Atorvastatin Calcium (Lipitor) 20 mg PO DAILY@2200 [facility] Last Admin: 01/03/20 20:56 Dose: 20 mg Documented by: Clopidogrel Bisulfate (Plavix) 75 mg PO DAILY [facility] Last Admin: 01/03/20 10:13 Dose: 75 mg Documented by: Dextrose (D50w Syringe) 0 gm IV X1 PRN; Protocol PRN Reason: Hypoglycemia Famotidine (Pepcid) 20 mg PO DAILY [facility] Last Admin: 01/03/20 10:07 Dose: 20 mg Documented by: Furosemide (Lasix) 40 mg IV DAILY [facility] Last Admin: 01/03/20 10:05 Dose: 40 mg Documented by: Glucagon () 1 mg IM .X1 PRN PRN Reason: Hypoglycemia Sodium Chloride () 250 mls @ 15 mls/hr IV .[id number] PRN PRN Reason: Additional IVPB Infusion Diltiazem HCl 125 mg/ Dextrose 125 mls @ 15 mls/hr IV .Q8H20M [facility]; Protocol Last Admin: 01/04/20 02:21 Dose: Not Given Documented by: Sodium Chloride () 1,000 mls @ 0 mls/hr IV .Q0M [facility] Nitroglycerin/Dextrose () 250 mls @ 3 mls/hr CONT INF .[id number] [facility]; Protocol Last Titration: 01/03/20 20:37 Dose: Infused Documented by: Insulin Glargine (Lantus ([facility])) 28 units SC BID [facility] Last Admin: 01/03/20 20:56 Dose: 28 u Documented by: Insulin Human Lispro (Humalog Kwikpen ([facility])) 0 unit SC ACHS [facility]; Protocol Last Admin: 01/03/20 20:56 Dose: Not Given Documented by: Isosorbide Mononitrate (Imdur) 60 mg PO DAILY [facility] Last Admin: 01/03/20 10:04 Dose: 60 mg Documented by: Levofloxacin (Levaquin Tablet) 750 mg PO Q48 [facility] Stop: 01/05/20 10:01 Last Admin: 01/03/20 12:31 Dose: 750 mg Documented by: Levothyroxine Sodium (Synthroid) 75 mcg PO DAILY@0600 [facility] Last Admin: 01/04/20 05:45 Dose: 75 mcg Documented by: Metoprolol Succinate (Toprol Xl ([facility] [place])) 100 mg PO DAILY [facility] Last Admin: 01/03/20 06:22 Dose: 100 mg Documented by: Ondansetron HCl (Zofran) 4 mg IV Q8H PRN PRN PRN Reason: NAUSEA/VOMITING Senna/Docusate Sodium (Senokot-S, Isabella-Colace) 2 tablet PO BID PRN PRN Reason: CONSTIPATION Sodium Bicarbonate (Sodium Bicarbonate) 650 mg PO DAILY [facility] Last Admin: 01/03/20 10:06 Dose: 650 mg Documented by: Sodium Chloride () 10 - 40 ml IV UD PRN PRN Reason: SALINE FLUSH Last Admin: 01/02/20 18:55 Dose: 20 ml Documented by: Spironolactone (Aldactone) 25 mg PO MoWeFr@0800 [facility] Vital Signs/Narrative: Vital Signs Temp Pulse Resp BP Pulse Ox 01/04/20 06:00 98.4 F 88 20 H 159/84 H 94 01/04/20 05:00 98.5 F 81 20 H 159/91 H 99 01/04/20 04:00 98.7 F 91 20 H 165/83 H 97 Medical Necessity - Tobacco Use Smoking Status: Former smoker Assessment/Plan All Active Problems (Last Reviewed 12/31/19 @ 00:[address] Ayaan Duque MD) Acute respiratory failure with hypoxia and hypercapnia (Acute) Acute [id number] myocardial infarction (Acute 12/31/19) Pulmonary edema (Acute) CHF (congestive heart failure) (Acute) Patient is a 79-year-old gentleman admitted with progressive shortness of breath and assessment of acute hypoxic and hypercapnic respiratory failure secondary to CHF was made. Patient was intubated and admitted to the intensive care unit 1. Acute hypoxic and hypercapnic respiratory failure ?Secondary to pulmonary edema as a result of congestive heart failure. Patient remains on the vent. Attempts at weaning on the morning of 01/02/2020 unsuccessful plan is for patient to undergo repeat weaning trial 01/03/2020: Patient weaned off the vent -01/04/2020: Patient remains on high flow oxygen. Plan is for patient to be transferred from ICU to PCU 2. Acute pulmonary edema ?Secondary to congestive heart failure with reduced ejection fraction of 45% with inferior hypokinesis. Patient was managed with diuretics held in view of worsening kidney function ?01/04/2020. Lasix on hold plan is to resume with close monitoring of electrolytes 3. Acute non-ST segment elevation [place] ?Patient managed per protocol consult placed to cardiology plans for patient to undergo left heart catheterization on 01/03/2020 01/03/2020: Patient left heart catheterization demonstrated Normal left main coronary artery. Left anterior descending artery diffusely diseased in the mid segment of approximately 60% in the distal segment of 80 to 90% and a long segment. Left circumflex artery with moderate diffuse disease in the second obtuse marginal branch with 80% stenosis and left to right collaterals. Right coronary artery with proximal 60 to 70% stenosis and mild diffuse disease and midsegment 70% stenosis. Previously placed stent is patent. Based on the above angiographic findings cardiology recommended aggressive medical therapy. 4. Coronary artery disease ?With previous PCI. Patient currently on dual antiplatelet therapy with aspirin and Plavix in addition to statin therapy. As stated above plan is for patient to undergo elective catheterization on 01/03/2020. .5 Chronic A. fib ?Rate controlled metoprolol. Patient is on systemic anticoagulation with Coumadin currently being held in a suspicion of patient left heart catheterization -01/04/2020: Coumadin resumed 6. Chronic kidney disease stage IV ?Creatinine on admission was 2.43 did worsen peaking at 3.25, improving with creatinine at 2.94 as of 01/02/2020. Also placed to nephrology 7. Diabetes mellitus type 2 ?With complications including diabetic nephropathy. Patient is a long-acting insulin in addition to sliding scale 8. Hypertension - Blood pressure controlled, home medications continued with dose adjustment as needed -01/03/2020: Patient was started on nitroglycerin drip as a result of markedly elevated blood pressure 9. Hypothyroidism - Patient is on levothyroxine home dose continued 10. Dyslipidemia -Patient is on statin therapy, continued at home dose 11. DVT prophylaxis ?Patient is on Coumadin which is currently being held as stated above ?01/04/2020 Coumadin resumed Inpatient E&M: [id number] [facility] Hosp L2
--- NOTE | 2020-01-04 07:21 | PN_ITS ---
Patient Problems: Active and Suspected Problems (Last Reviewed 12/31/19 @ 00:[address] Ayaan Duque MD) Pulmonary edema (Acute) CHF (congestive heart failure) (Acute) Subjective: The patient was seen and examined at the bedside this morning. Events from the last 24 hours have been reviewed. The patient is currently afebrile, hemodynamically stable and maintaining appropriate oxygen saturations on 3 L/min via nasal cannula. The patient continues to tolerate BiPAP therapy on a nightly basis. Potassium was low this morning at 3.4. Creatinine is stable at 2.7. The patient did undergo cardiac catheterization yesterday which revealed diffuse three-vessel coronary disease, for which medical management was recommended. Objective: The patient's most recent lab work, culture data and imaging studies have all been personally reviewed. Respiratory viral panel was negative. Strep and urine Legionella antigens were negative. Blood cultures have shown no growth to date. - Physical Exam Vitals/I&O's: Vital Signs Temp Pulse Resp BP Pulse Ox 98.4 F 88 20 H 159/84 H 94 01/04/20 06:00 01/04/20 06:00 01/04/20 06:00 01/04/20 06:00 01/04/20 06:00 Oxygen Flow Rate (L/min) 3 Oxygen Delivery Method Nasal Cannula Weight: 268 lb 4.841 oz Body Mass Index (BMI) 40.8 Intake and Output for Last 24 Hours 01/02/20 01/03/20 01/04/20 23:59 23:59 23:59 Intake Total 2027.80 / 2054.80 1159.90 / 1159.90 60 / 60 Output Total 1700 / 1700 1945 / 1945 615 / 615 Balance 327.80 / 354.80 -785.10 / -785.10 -555 / -555 General: Alert, Cooperative, No apparent distress, - - Sitting upright in bed, eating breakfast. HEENT: Atraumatic, PERRLA, Normocephalic Oral: No Gingival or Mucosal Lesions/ Ulcerations Neck: Supple, No Nodes, Trachea Midline Lungs: Diminished Cardiovascular: Normal S1, Normal S2, No murmurs, Irregular Rate Abdomen: Bowel Sounds Present, Soft, Non Tender, Obese Extremities: No clubbing, No cyanosis, No edema Skin: No breakdown Musculoskeletal: No Muscle Wasting Lymphatic: No Cervical, Supraclavicular, or Inguinal Adenopathy Neurological: Cranial nerves II-XII grossly intact, Neuro grossly intact Psych/Mental Status: Alert and oriented to time, place, person, mood and affect Labs (Last 48 Hours) 01/02/20 01/02/20 01/02/20 10:11 16:28 20:51 WBC RBC Hgb Hct MCV MCH MCHC RDW Std Deviation RDW Coeff of Moni Plt Count MPV PT INR Sodium Potassium Chloride Carbon Dioxide Anion Gap BUN Creatinine Estim Creat Clear Calc Est GFR (MDRD) Af Amer Est GFR (MDRD) Non-Af BUN/Creatinine Ratio Glucose Calcium Magnesium POC Glucose 253 H 207 H 196 H 01/03/20 01/03/20 01/03/20 04:45 04:45 04:45 WBC 12.8 H RBC 3.77 L Hgb 9.5 L Hct 30.5 L MCV 80.9 MCH 25.2 L MCHC 31.1 L RDW Std Deviation 45.8 H RDW Coeff of Moni 15.6 H Plt Count 196 MPV 10.7 PT 21.7 H INR 1.9 Sodium 141 Potassium 3.6 Chloride 107 Carbon Dioxide 28.0 Anion Gap 6 BUN 55 H Creatinine 2.84 H Estim Creat Clear Calc 21.07 Est GFR (MDRD) Af Amer 28 L Est GFR (MDRD) Non-Af 23 L BUN/Creatinine Ratio 19.4 Glucose 134 H Calcium 9.7 Magnesium 2.5 POC Glucose 01/03/20 01/03/20 01/03/20 06:58 11:23 16:06 WBC RBC Hgb Hct MCV MCH MCHC RDW Std Deviation RDW Coeff of Moni Plt Count MPV PT INR Sodium Potassium Chloride Carbon Dioxide Anion Gap BUN Creatinine Estim Creat Clear Calc Est GFR (MDRD) Af Amer Est GFR (MDRD) Non-Af BUN/Creatinine Ratio Glucose Calcium Magnesium POC Glucose 127 H 153 H 133 H 01/03/20 01/04/20 01/04/20 20:50 04:10 04:10 WBC 8.1 RBC 3.83 L Hgb 9.5 L Hct 30.8 L MCV 80.4 MCH 24.8 L MCHC 30.8 L RDW Std Deviation 46.0 H RDW Coeff of Moni 15.7 H Plt Count 196 MPV 9.8 PT 19.1 H INR 1.7 Sodium Potassium Chloride Carbon Dioxide Anion Gap BUN Creatinine Estim Creat Clear Calc Est GFR (MDRD) Af Amer Est GFR (MDRD) Non-Af BUN/Creatinine Ratio Glucose Calcium Magnesium POC Glucose 129 H 01/04/20 04:10 WBC RBC Hgb Hct MCV MCH MCHC RDW Std Deviation RDW Coeff of Moni Plt Count MPV PT INR Sodium 140 Potassium 3.4 L Chloride 105 Carbon Dioxide 28.0 Anion Gap 7 BUN 59 H Creatinine 2.70 H Estim Creat Clear Calc 22.17 Est GFR (MDRD) Af Amer 30 L Est GFR (MDRD) Non-Af 24 L BUN/Creatinine Ratio 21.9 H Glucose 73 L Calcium 9.5 Magnesium POC Glucose Microbiology 01/01/20 15:30 Sputum, Induced/Lukens Gram Stain - Final 01/01/20 15:30 Sputum, Induced/Lukens Respiratory Culture - Preliminary Presumptive C albicans 12/30/19 22:30 Blood Culture (Wb) - Anticubital Left Blood Culture - Preliminary No growth in 48 hours. 12/30/19 22:18 Blood Culture (Wb) - Anticubital Right Blood Culture - Preliminary No growth in 48 hours. Clinical Impression(s) from Imaging Studies Chest X-Ray 12/30/19 20:45 IMPRESSION: Stable chronic increased interstitial markings in the lungs. No pulmonary infiltrates or pleural effusions. Electronically Signed: Francisco Mckeon, at 20:59 EDT Tel , Service support , Chest CT 12/30/19 21:29 IMPRESSION: Probable congestive failure with small right pleural effusion. Cannot exclude coexisting pneumonia. Electronically Signed: Nestor Corbett MD at 22:21 EDT , Service support , Chest X-Ray 12/31/19 03:05 IMPRESSION: Pneumonia. Possible pulmonary edema. There has been worsening since the previous study. Electronically Signed: Lissa Bishop, at 3:58 EDT Tel , Service support , KUB X-Ray 12/31/19 03:10 IMPRESSION: An NG tube is seen its tip is below the diaphragm is in good position. Electronically Signed: Lissa Bishop, at 3:59 EDT Tel , Service support , Current Medications Acetaminophen (Tylenol) 650 mg PO Q6H PRN PRN PRN Reason: Pain Score 1-10/Temp > 100.7 F Amlodipine Besylate (Norvasc) 10 mg PO DAILY [facility] Last Admin: 01/03/20 10:06 Dose: 10 mg Documented by: Aspirin (Aspirin, Baby) 81 mg PO DAILYCM [facility] Atorvastatin Calcium (Lipitor) 20 mg PO DAILY@2200 [facility] Last Admin: 01/03/20 20:56 Dose: 20 mg Documented by: Clopidogrel Bisulfate (Plavix) 75 mg PO DAILY [facility] Last Admin: 01/03/20 10:13 Dose: 75 mg Documented by: Dextrose (D50w Syringe) 0 gm IV X1 PRN; Protocol PRN Reason: Hypoglycemia Famotidine (Pepcid) 20 mg PO DAILY [facility] Last Admin: 01/03/20 10:07 Dose: 20 mg Documented by: Furosemide (Lasix) 40 mg IV DAILY [facility] Last Admin: 01/03/20 10:05 Dose: 40 mg Documented by: Glucagon () 1 mg IM .X1 PRN PRN Reason: Hypoglycemia Sodium Chloride () 250 mls @ 15 mls/hr IV .[id number] PRN PRN Reason: Additional IVPB Infusion Diltiazem HCl 125 mg/ Dextrose 125 mls @ 15 mls/hr IV .Q8H20M [facility]; Protocol Last Admin: 01/04/20 02:21 Dose: Not Given Documented by: Sodium Chloride () 1,000 mls @ 0 mls/hr IV .Q0M [facility] Nitroglycerin/Dextrose () 250 mls @ 3 mls/hr CONT INF .[id number] [facility]; Protocol Last Titration: 01/03/20 20:37 Dose: Infused Documented by: Insulin Glargine (Lantus ([facility])) 28 units SC BID [facility] Last Admin: 01/03/20 20:56 Dose: 28 u Documented by: Insulin Human Lispro (Humalog Kwikpen ([facility])) 0 unit SC [facility]; Protocol Last Admin: 01/03/20 20:56 Dose: Not Given Documented by: Isosorbide Mononitrate (Imdur) 60 mg PO DAILY [facility] Last Admin: 01/03/20 10:04 Dose: 60 mg Documented by: Levofloxacin (Levaquin Tablet) 750 mg PO Q48 [facility] Stop: 01/05/20 10:01 Last Admin: 01/03/20 12:31 Dose: 750 mg Documented by: Levothyroxine Sodium (Synthroid) 75 mcg PO DAILY@0600 [facility] Last Admin: 01/04/20 05:45 Dose: 75 mcg Documented by: Metoprolol Succinate (Toprol Xl ([place] [place])) 100 mg PO DAILY [facility] Last Admin: 01/03/20 06:22 Dose: 100 mg Documented by: Ondansetron HCl (Zofran) 4 mg IV Q8H PRN PRN PRN Reason: NAUSEA/VOMITING Senna/Docusate Sodium (Senokot-S, Isabella-Colace) 2 tablet PO BID PRN PRN Reason: CONSTIPATION Sodium Bicarbonate (Sodium Bicarbonate) 650 mg PO DAILY [facility] Last Admin: 01/03/20 10:06 Dose: 650 mg Documented by: Sodium Chloride () 10 - 40 ml IV UD PRN PRN Reason: SALINE FLUSH Last Admin: 01/02/20 18:55 Dose: 20 ml Documented by: Spironolactone (Aldactone) 25 mg PO MoWeFr@0800 [facility] Medical Necessity - Tobacco Use Smoking Status: Former smoker Assessment/Plan All Active Problems (Last Reviewed 12/31/19 @ 00:[address] Ayaan Duque MD) Acute respiratory failure with hypoxia and hypercapnia (Acute) Acute [id number] myocardial infarction (Acute 12/31/19) Pulmonary edema (Acute) CHF (congestive heart failure) (Acute) RECOMMENDATIONS: 1. Continue empiric antimicrobials with plans to complete a 7-day treatment course. 2. Continue Lasix, as tolerated by hemodynamics and renal function. 3. Wean supplemental oxygen to maintain saturations at or above 90%. 4. Management of hypertension and atrial fibrillation per cardiology recommendations. 5. Continue nocturnal Pap therapy. 6. Encourage incentive spirometer use and mobilize patient as tolerated. 7. The patient is medically stable for transfer out of the intensive care unit. IMPRESSIONS: 1. Acute combined respiratory failure Likely multifactorial in etiology with acute decompensated heart failure and subsequent pulmonary edema, along with possible community-acquired pneumonia contributing. The patient improved from a respiratory perspective with antimicrobials and diuresis. He was able to be extubated on January 01. Plan to continue to wean supplemental oxygen to maintain saturations at or above 90%. Encourage incentive spirometer use and mobilize patient as tolerated. Plan to complete a 7-day treatment course of antimicrobials. 2. Decompensated heart failure/non-ST segment elevation [place]/chronic atrial fibrillation/coronary artery disease Cardiology is currently following to assist with medical management. Continue diuretic therapy. Will defer management of hypertension and atrial fibrillation to cardiology. Cardiac catheterization revealed diffuse three-vessel coronary disease, for which medical therapy was recommended. 3. Obesity/obstructive sleep apnea/hypothyroidism/hypertension/hyperlipidemia/diabetes mellitus Complicates care, management, recovery and prognosis. Continue sliding scale insulin coverage. This note was generated with [employer] dictation software. It may contain incorrect words, spelling, and punctuation that were not noted in checking the note before signing. Inpatient E&M: [id number] [facility] Hosp L2
[2020-01-04] MEDS: Aspirin 81 MG TAB.CHEW PO (07:53)
[2020-01-04] MEDS: Spironolactone 25 MG Tablet PO (07:53)
[2020-01-04 08:00] LABS: Bedside Glucose 66 mg/dL (70-110)
--- NOTE | 2020-01-04 08:25 | PN.CARD_ITS ---
Subjectve: Patient seen and evaluated Objective: Vital Signs Temp Pulse Resp BP Pulse Ox 98.4 F 90 21 H 157/87 H 94 01/04/20 07:00 01/04/20 08:00 01/04/20 08:00 01/04/20 08:00 01/04/20 08:00 Oxygen Flow Rate (L/min) 3 Oxygen Delivery Method Nasal Cannula Weight: 268 lb 4.841 oz Body Mass Index (BMI) 40.8 Intake and Output for Last 24 Hours 01/02/20 01/03/20 01/04/20 23:59 23:59 23:59 Intake Total 2027.80 / 2054.80 1159.90 / 1159.90 60 / 60 Output Total 1700 / 1700 1945 / 1945 615 / 615 Balance 327.80 / 354.80 -785.10 / -785.10 -555 / -555 General: Awake, Alert, Oriented x 3 HEENT: PERRL, EOMI, Sclera Non Icteric Neck: Supple, Good ROM, No Lymph Node Enlargement Lungs: Clear to auscultation Cardiovascular: Regular Rhythm, Normal S1, Normal S2, No Murmurs, No Rubs, No Gallops Vascular: No Carotid Bruits, Normal Femoral Pulses, Normal Radial Pulses, Normal Dorsalis Pedal Pulse, Normal Posterior Tibial Pulses Abdomen: Bowel Sounds Present, Soft, Non Tender, No HSM, No Organomegaly Extremities: No Cyanosis, No Clubbing, No edema Neurological: No Focal Motor or Sensory Deficit 01/04/20 04:10: WBC 8.1, RBC 3.83 L, Hgb 9.5 L, Hct 30.8 L, MCV 80.4, MCH 24.8 L , MCHC 30.8 L, Plt Count 196, MPV 9.8 01/04/20 04:10: PT 19.1 H, INR 1.7 01/04/20 04:10: Sodium 140, Potassium 3.4 L, Chloride 105, Carbon Dioxide 28.0, Anion Gap 7, BUN 59 H, Creatinine 2.70 H, Est GFR (MDRD) Af Amer 30 L, Est GFR (MDRD) Non-Af 24 L, BUN/Creatinine Ratio 21.9 H, Glucose 73 L, Calcium 9.5 Rhythm: EKG: ECHO: Stress Test: Cardiac Cath: PCI: CT Surgery: Holter monitor: EPS: PPM: CXR: Chest CT Scan: Medical Necessity - Tobacco Use Smoking Status: Former smoker Assessment/Plan Non-ST elevation myocardial infarction. * He presents with a non-ST elevation myocardial infarction. He does have renal dysfunction. * His catheterization today demonstrated the following: Normal left main coronary artery. Left anterior descending artery diffusely diseased in the mid segment of approximately 60% in the distal segment of 80 to 90% and a long segment. Left circumflex artery with moderate diffuse disease in the second obtuse marginal branch with 80% stenosis and left to right collaterals. Right coronary artery with proximal 60 to 70% stenosis and mild diffuse disease and midsegment 70% stenosis. Previously placed stent is patent. Based on the above angiographic findings the patient will be treated with aggressive medical therapy. 2. Hypertension * His blood pressure appears to be under good control at this time. The plan is to continue the current medical therapy without any major changes. * Will restart his beta-carl with Toprol-XL 100 mg a day 3. Atrial fibrillation * Patient's had atrial fibrillation with a controlled ventricular response rate. * He will continue beta-carl for rate control. * Will continue amiodarone for rate control * Will restart anticoagulation in a.m. 4. Shortness of breath * The above is likely secondary to congestive heart failure which may be diastolically mediated as well as obstructive sleep apnea. I do not previously see any evidence of obstructive lung disease in him. * He also does have coronary artery disease which may be contributing to the above. * He does have evidence of mild ventricular systolic dysfunction with apical hypokinesis estimated EF 40%. * Thank you for allowing me to participate in the care of your patient. Please don't hesitate to call if any issues arise.
[2020-01-04] MEDS: Ranolazine 500 MG Tablet PO ×2 (09:51→20:39)
[2020-01-04] MEDS: Isosorbide Mononitrate 60 MG Tablet PO (09:52)
[2020-01-04] MEDS: amLODIPine 10 MG Tablet PO (09:52)
[2020-01-04] MEDS: Sodium Bicarbonate 650 MG Tablet PO (09:52)
[2020-01-04] MEDS: Clopidogrel Bisulfate 75 MG Tablet PO (09:52)
[2020-01-04] MEDS: Furosemide 40 MG/4 ML Vial IV (09:52)
[2020-01-04] MEDS: Insulin Lispro 100 UNIT/ML INSULN.PEN SC ×2 (11:31→20:39)
[2020-01-04] MEDS: Metoprolol(XL)Succ 100 MG Tablet PO (11:33)
[2020-01-04 11:55] LABS: Bedside Glucose 173 mg/dL (70-110)
--- NOTE | 2020-01-04 12:20 | CASEMGMT ---
SW was informed by SAGE VILLALBA that patient and his are interested in [facility] 4th floor rehab unit. CORTNEY called [facility] in Rehab and she spoke with her therapists and physician and they will accept patient. SAGE VILLALBA notified patient's and gave her an Inpatient Rehab pamphlet. Green sheet on chart. [facility]
--- NOTE | 2020-01-04 12:22 | CASEMGMT ---
Addendum entered by Esau López 01/04/20 12:27: [facility] Inpt Rehab can take patient for admission on Tuesday01/06/2020. was in room, Intro role of CM to patient and . Explained patient can go to Inpt Rehab on discharge, no initial quarantine, visiting hours as are in brochure, and only one visitor for the entire visit, which will be patient's . They are both in agreement for this dc plan. DC PLAN: Inpatient Rehab Original Note: SAGE VILLALBA Note: Spoke with on phone. She is coming to hospital soon, but wished to have patient evaluated for either [facility] Inpatient rehab or [facility] TCU on discharge. She stated nursing called her yesterday evening to state it was taking 2 people to help him out of bed and ambulating. SAGE VILLALBA explained that cm/sw could look into referral and bed availability for her and can discuss with her when information is available. CORTNEY Mcfadden updated and will speak with the units. Polo LUNAN RN ACM
[2020-01-04 16:35] LABS: Bedside Glucose 137 mg/dL (70-110)
[2020-01-04] MEDS: Atorvastatin Calcium 20 MG Tablet PO (20:39)
[2020-01-04 21:16] LABS: Bedside Glucose 188 mg/dL (70-110)
[2020-01-05] VITALS (12 sets, daily range): BP systolic 119–157; BP diastolic 74–88; PULSE 66–85; RESP 18; TEMP 36.6–36.8; O2SAT 92–98
[2020-01-05] MEDS: Levothyroxine 75 MCG Tablet PO (05:32)
[2020-01-05 06:55] LABS: Bedside Glucose 102 mg/dL (70-110)
[2020-01-05] MEDS: Aspirin 81 MG TAB.CHEW PO (07:26)
--- NOTE | 2020-01-05 07:38 | PCM.PN.HOSP ---
Patient Problems: Active and Suspected Problems (Last Reviewed 12/31/19 @ 00:[address] Ayaan Duque MD) Pulmonary edema (Acute) CHF (congestive heart failure) (Acute) Reason for Visit: Acute non-STEMI Acute congestive heart failure Subjective: Patient seen clinical condition continues to improve plans for patient to be discharged when okay with cardiology Objective: GENERAL: cooperative HEENT: Atraumatic; EYES; Anicteric, Normal Conjunctiva NECK; supple, normal thyroid, RESPIRATORY: Diminished to auscultation CARDIOVASCULAR: Regular S1 S2, GI: soft, normoactive bowel sounds, : No Renal angle tenderness; EXTREMITIES: No edema, no clubbing, MUSCULOSKELETAL: no muscle waisting NEURO: Awake; no lateralizing signs. SKIN: No Rash PSYCH; Flat affect Vitals/I&O's: Vital Signs Temp Pulse Resp BP Pulse Ox 97.8 F 77 18 133/81 H 92 01/05/20 05:33 01/05/20 06:48 01/05/20 05:33 01/05/20 05:33 01/05/20 05:33 Oxygen Flow Rate (L/min) 3 Oxygen Delivery Method Room Air Weight: 121.7 kg Body Mass Index (BMI) 40.8 Intake and Output for Last 24 Hours 01/03/20 01/04/20 01/05/20 23:59 23:59 23:59 Intake Total 1159.90 / 1159.90 780 / 780 220 / 220 Output Total 1945 / 1945 2340 / 2340 450 / 450 Balance -785.10 / -785.10 -1560 / -1560 -230 / -230 Microbiology Past 72 Hours 12/30/19 22:30 Blood Culture (Wb) - Anticubital Left Blood Culture - Final No growth in 5 days. 12/30/19 22:18 Blood Culture (Wb) - Anticubital Right Blood Culture - Final No growth in 5 days. 01/01/20 15:30 Sputum, Induced/Lukens Gram Stain - Final 01/01/20 15:30 Sputum, Induced/Lukens Respiratory Culture - Final Presumptive C albicans Laboratory Results 01/04/20 07:49: POC Glucose 66 L 01/04/20 11:28: POC Glucose 173 H 01/04/20 16:15: POC Glucose 137 H 01/04/20 20:38: POC Glucose 188 H 01/05/20 06:33: POC Glucose 102 Current Medications Acetaminophen (Tylenol) 650 mg PO Q6H PRN PRN PRN Reason: Pain Score 1-10/Temp > 100.7 F Amlodipine Besylate (Norvasc) 10 mg PO DAILY [facility] Last Admin: 01/04/20 09:52 Dose: 10 mg Documented by: Aspirin (Aspirin, Baby) 81 mg PO DAILYCM [facility] Last Admin: 01/05/20 07:26 Dose: 81 mg Documented by: Atorvastatin Calcium (Lipitor) 20 mg PO DAILY@2200 [facility] Last Admin: 01/04/20 20:39 Dose: 20 mg Documented by: Clopidogrel Bisulfate (Plavix) 75 mg PO DAILY [facility] Last Admin: 01/04/20 09:52 Dose: 75 mg Documented by: Dextrose (D50w Syringe) 0 gm IV X1 PRN; Protocol PRN Reason: Hypoglycemia Furosemide (Lasix) 40 mg IV DAILY [facility] Last Admin: 01/04/20 09:52 Dose: 40 mg Documented by: Glucagon () 1 mg IM .X1 PRN PRN Reason: Hypoglycemia Sodium Chloride () 250 mls @ 15 mls/hr IV .[id number] PRN PRN Reason: Additional IVPB Infusion Sodium Chloride () 1,000 mls @ 0 mls/hr IV .Q0M [facility] Insulin Glargine (Lantus (Bkc)) 20 units SC QHS [facility] Last Admin: 01/04/20 20:40 Dose: 20 units Documented by: Insulin Human Lispro (Humalog Kwikpen (Bkc)) 0 unit SC ACHS [facility]; Protocol Last Admin: 01/05/20 06:34 Dose: Not Given Documented by: Isosorbide Mononitrate (Imdur) 60 mg PO DAILY [facility] Last Admin: 01/04/20 09:52 Dose: 60 mg Documented by: Levofloxacin (Levaquin Tablet) 750 mg PO Q48 [facility] Stop: 01/05/20 10:01 Last Admin: 01/03/20 12:31 Dose: 750 mg Documented by: Levothyroxine Sodium (Synthroid) 75 mcg PO DAILY@0600 [facility] Last Admin: 01/05/20 05:32 Dose: 75 mcg Documented by: Metoprolol Succinate (Toprol Xl ([place])) 100 mg PO DAILY [facility] Last Admin: 01/04/20 11:33 Dose: 100 mg Documented by: Ondansetron HCl (Zofran) 4 mg IV Q8H PRN PRN PRN Reason: NAUSEA/VOMITING Ranolazine (Ranexa) 500 mg PO BID [facility] Last Admin: 01/04/20 20:39 Dose: 500 mg Documented by: Senna/Docusate Sodium (Senokot-S, Isabella-Colace) 2 tablet PO BID PRN PRN Reason: CONSTIPATION Sodium Bicarbonate (Sodium Bicarbonate) 650 mg PO DAILY [facility] Last Admin: 01/04/20 09:52 Dose: 650 mg Documented by: Sodium Chloride () 10 - 40 ml IV UD PRN PRN Reason: SALINE FLUSH Last Admin: 01/02/20 18:55 Dose: 20 ml Documented by: Spironolactone (Aldactone) 25 mg PO MoWeFr@0800 [facility] Last Admin: 01/04/20 07:53 Dose: 25 mg Documented by: Warfarin Sodium (Jantoven) 5 mg PO DAILY@1700 [facility] Last Admin: 01/04/20 16:18 Dose: 5 mg Documented by: STROKE Vital Signs/Narrative: Vital Signs Temp Pulse Resp BP Pulse Ox 01/05/20 06:48 77 01/05/20 05:33 97.8 F 83 18 133/81 H 92 Medical Necessity - Tobacco Use Smoking Status: Former smoker Assessment/Plan All Active Problems (Last Reviewed 12/31/19 @ 00:[address] Ayaan Duque MD) Acute respiratory failure with hypoxia and hypercapnia (Acute) Acute beq-HI-crjakhmrs myocardial infarction (Acute 12/31/19) Pulmonary edema (Acute) CHF (congestive heart failure) (Acute) Patient is a 79-year-old gentleman admitted with progressive shortness of breath and assessment of acute hypoxic and hypercapnic respiratory failure secondary to CHF was made. Patient was intubated and admitted to the intensive care unit 1. Acute hypoxic and hypercapnic respiratory failure ?Secondary to pulmonary edema as a result of congestive heart failure. Patient remains on the vent. Attempts at weaning on the morning of 01/02/2020 unsuccessful plan is for patient to undergo repeat weaning trial 01/03/2020: Patient weaned off the vent -01/04/2020: Patient remains on high flow oxygen. Plan is for patient to be transferred from ICU to PCU 2. Acute pulmonary edema ?Secondary to congestive heart failure with reduced ejection fraction of 45% with inferior hypokinesis. Patient was managed with diuretics held in view of worsening kidney function ?01/04/2020. Lasix on hold plan is to resume with close monitoring of electrolytes 3. Acute non-ST segment elevation RI ?Patient managed per protocol consult placed to cardiology plans for patient to undergo left heart catheterization on 01/03/2020 01/03/2020: Patient left heart catheterization demonstrated Normal left main coronary artery. Left anterior descending artery diffusely diseased in the mid segment of approximately 60% in the distal segment of 80 to 90% and a long segment. Left circumflex artery with moderate diffuse disease in the second obtuse marginal branch with 80% stenosis and left to right collaterals. Right coronary artery with proximal 60 to 70% stenosis and mild diffuse disease and midsegment 70% stenosis. Previously placed stent is patent. Based on the above angiographic findings cardiology recommended aggressive medical therapy. 4. Coronary artery disease ?With previous PCI. Patient currently on dual antiplatelet therapy with aspirin and Plavix in addition to statin therapy. As stated above plan is for patient to undergo elective catheterization on 01/03/2020. .5 Chronic A. fib ?Rate controlled metoprolol. Patient is on systemic anticoagulation with Coumadin currently being held in a suspicion of patient left heart catheterization -01/04/2020: Coumadin resumed 6. Chronic kidney disease stage IV ?Creatinine on admission was 2.43 did worsen peaking at 3.25, improving with creatinine at 2.94 as of 01/02/2020. Also placed to nephrology 7. Diabetes mellitus type 2 ?With complications including diabetic nephropathy. Patient is a long-acting insulin in addition to sliding scale 8. Hypertension - Blood pressure controlled, home medications continued with dose adjustment as needed -01/03/2020: Patient was started on nitroglycerin drip as a result of markedly elevated blood pressure 9. Hypothyroidism - Patient is on levothyroxine home dose continued 10. Dyslipidemia -Patient is on statin therapy, continued at home dose 11. DVT prophylaxis ?Patient is on Coumadin which is currently being held as stated above ?01/04/2020 Coumadin resumed Inpatient E&M: [id number] [facility] Hosp L2
--- NOTE | 2020-01-05 07:49 | PCM.PN.PUL ---
Patient Problems: Active and Suspected Problems (Last Reviewed 12/31/19 @ 00:[address] Ayaan Duque MD) Pulmonary edema (Acute) CHF (congestive heart failure) (Acute) Subjective: The patient was seen and examined at the bedside this morning. Events from the last 24 hours have been reviewed. The patient is currently afebrile, hemodynamically stable and maintaining appropriate oxygen saturations on room air. The patient denies any significant shortness of breath. Objective: The patient's most recent lab work, culture data and imaging studies have all been personally reviewed. Respiratory viral panel was negative. Strep and urine Legionella antigens were negative. Blood cultures have shown no growth to date. - Physical Exam Vitals/I&O's: Vital Signs Temp Pulse Resp BP Pulse Ox 97.8 F 77 18 133/81 H 92 01/05/20 05:33 01/05/20 06:48 01/05/20 05:33 01/05/20 05:33 01/05/20 05:33 Oxygen Flow Rate (L/min) 3 Oxygen Delivery Method Room Air Weight: 268 lb 4.841 oz Body Mass Index (BMI) 40.8 Intake and Output for Last 24 Hours 01/03/20 01/04/20 01/05/20 23:59 23:59 23:59 Intake Total 1159.90 / 1159.90 780 / 780 220 / 220 Output Total 1945 / 1945 2340 / 2340 450 / 450 Balance -785.10 / -785.10 -1560 / -1560 -230 / -230 General: Alert, Cooperative, No apparent distress HEENT: Atraumatic, PERRLA, Normocephalic Oral: Moist Mucosa, No Gingival or Mucosal Lesions/ Ulcerations Neck: Supple, No Nodes, Trachea Midline Lungs: No rhonchi, No wheeze, No rales, Diminished Cardiovascular: Normal S1, Normal S2, No murmurs, Irregular Rate Abdomen: Bowel Sounds Present, Soft, Non Tender, Obese Extremities: No clubbing, No cyanosis, No edema Skin: No breakdown Musculoskeletal: No Muscle Wasting Lymphatic: No Cervical, Supraclavicular, or Inguinal Adenopathy Neurological: Cranial nerves II-XII grossly intact, Neuro grossly intact Psych/Mental Status: Normal Affect, Appropriate Labs (Last 48 Hours) 01/03/20 01/03/2020 11:23 16:06 20:50 WBC RBC Hgb Hct MCV MCH MCHC RDW Std Deviation RDW Coeff of Moni Plt Count MPV PT INR Sodium Potassium Chloride Carbon Dioxide Anion Gap BUN Creatinine Estim Creat Clear Calc Est GFR (MDRD) Af Amer Est GFR (MDRD) Non-Af BUN/Creatinine Ratio Glucose Calcium POC Glucose 153 H 133 H 129 H 01/04/20 01/04/20 01/04/20 04:10 04:10 04:10 WBC 8.1 RBC 3.83 L Hgb 9.5 L Hct 30.8 L MCV 80.4 MCH 24.8 L MCHC 30.8 L RDW Std Deviation 46.0 H RDW Coeff of Moni 15.7 H Plt Count 196 MPV 9.8 PT 19.1 H INR 1.7 Sodium 140 Potassium 3.4 L Chloride 105 Carbon Dioxide 28.0 Anion Gap 7 BUN 59 H Creatinine 2.70 H Estim Creat Clear Calc 22.17 Est GFR (MDRD) Af Amer 30 L Est GFR (MDRD) Non-Af 24 L BUN/Creatinine Ratio 21.9 H Glucose 73 L Calcium 9.5 POC Glucose 01/04/20 01/04/20 01/04/20 07:49 11:28 16:15 WBC RBC Hgb Hct MCV MCH MCHC RDW Std Deviation RDW Coeff of Moni Plt Count MPV PT INR Sodium Potassium Chloride Carbon Dioxide Anion Gap BUN Creatinine Estim Creat Clear Calc Est GFR (MDRD) Af Amer Est GFR (MDRD) Non-Af BUN/Creatinine Ratio Glucose Calcium POC Glucose 66 L 173 H 137 H 01/04/20 01/05/20 20:38 06:33 WBC RBC Hgb Hct MCV MCH MCHC RDW Std Deviation RDW Coeff of Moni Plt Count MPV PT INR Sodium Potassium Chloride Carbon Dioxide Anion Gap BUN Creatinine Estim Creat Clear Calc Est GFR (MDRD) Af Amer Est GFR (MDRD) Non-Af BUN/Creatinine Ratio Glucose Calcium POC Glucose 188 H 102 Microbiology 12/30/19 22:30 Blood Culture (Wb) - Anticubital Left Blood Culture - Final No growth in 5 days. 12/30/19 22:18 Blood Culture (Wb) - Anticubital Right Blood Culture - Final No growth in 5 days. 01/01/20 15:30 Sputum, Induced/Lukens Gram Stain - Final 01/01/20 15:30 Sputum, Induced/Lukens Respiratory Culture - Final Presumptive C albicans Clinical Impression(s) from Imaging Studies Chest X-Ray 12/30/19 20:45 IMPRESSION: Stable chronic increased interstitial markings in the lungs. No pulmonary infiltrates or pleural effusions. Electronically Signed: Francisco Mckeon, at 20:59 EDT Tel , Service support , Chest CT 12/30/19 21:29 IMPRESSION: Probable congestive failure with small right pleural effusion. Cannot exclude coexisting pneumonia. Electronically Signed: Nestor Corbett MD at 22:21 EDT , Service support , Chest X-Ray 12/31/19 03:05 IMPRESSION: Pneumonia. Possible pulmonary edema. There has been worsening since the previous study. Electronically Signed: Lissa Bishop, at 3:58 EDT Tel , Service support , KUB X-Ray 12/31/19 03:10 IMPRESSION: An NG tube is seen its tip is below the diaphragm is in good position. Electronically Signed: Lissa Bishop, at 3:59 EDT Tel , Service support , Current Medications Acetaminophen (Tylenol) 650 mg PO Q6H PRN PRN PRN Reason: Pain Score 1-10/Temp > 100.7 F Amlodipine Besylate (Norvasc) 10 mg PO DAILY [facility] Last Admin: 01/04/20 09:52 Dose: 10 mg Documented by: Aspirin (Aspirin, Baby) 81 mg PO DAILYCM [facility] Last Admin: 01/05/20 07:26 Dose: 81 mg Documented by: Atorvastatin Calcium (Lipitor) 20 mg PO DAILY@2200 [facility] Last Admin: 01/04/20 20:39 Dose: 20 mg Documented by: Clopidogrel Bisulfate (Plavix) 75 mg PO DAILY [facility] Last Admin: 01/04/20 09:52 Dose: 75 mg Documented by: Dextrose (D50w Syringe) 0 gm IV X1 PRN; Protocol PRN Reason: Hypoglycemia Furosemide (Lasix) 40 mg IV DAILY [facility] Last Admin: 01/04/20 09:52 Dose: 40 mg Documented by: Glucagon () 1 mg IM .X1 PRN PRN Reason: Hypoglycemia Sodium Chloride () 250 mls @ 15 mls/hr IV .[id number] PRN PRN Reason: Additional IVPB Infusion Sodium Chloride () 1,000 mls @ 0 mls/hr IV .Q0M [facility] Insulin Glargine (Lantus ([facility])) 20 units SC QHS [facility] Last Admin: 01/04/20 20:40 Dose: 20 units Documented by: Insulin Human Lispro (Humalog Kwikpen ([facility])) 0 unit SC ACHS [facility]; Protocol Last Admin: 01/05/20 06:34 Dose: Not Given Documented by: Isosorbide Mononitrate (Imdur) 60 mg PO DAILY [facility] Last Admin: 01/04/20 09:52 Dose: 60 mg Documented by: Levofloxacin (Levaquin Tablet) 750 mg PO Q48 [facility] Stop: 01/05/20 10:01 Last Admin: 01/03/20 12:31 Dose: 750 mg Documented by: Levothyroxine Sodium (Synthroid) 75 mcg PO DAILY@0600 [facility] Last Admin: 01/05/20 05:32 Dose: 75 mcg Documented by: Metoprolol Succinate (Toprol Xl ([place])) 100 mg PO DAILY [facility] Last Admin: 01/04/20 11:33 Dose: 100 mg Documented by: Ondansetron HCl (Zofran) 4 mg IV Q8H PRN PRN PRN Reason: NAUSEA/VOMITING Ranolazine (Ranexa) 500 mg PO BID [facility] Last Admin: 01/04/20 20:39 Dose: 500 mg Documented by: Senna/Docusate Sodium (Senokot-S, Isabella-Colace) 2 tablet PO BID PRN PRN Reason: CONSTIPATION Sodium Bicarbonate (Sodium Bicarbonate) 650 mg PO DAILY [facility] Last Admin: 01/04/20 09:52 Dose: 650 mg Documented by: Sodium Chloride () 10 - 40 ml IV UD PRN PRN Reason: SALINE FLUSH Last Admin: 01/02/20 18:55 Dose: 20 ml Documented by: Spironolactone (Aldactone) 25 mg PO MoWeFr@0800 [facility] Last Admin: 01/04/20 07:53 Dose: 25 mg Documented by: Warfarin Sodium (Jantoven) 5 mg PO DAILY@1700 [facility] Last Admin: 01/04/20 16:18 Dose: 5 mg Documented by: Medical Necessity - Tobacco Use Smoking Status: Former smoker Assessment/Plan All Active Problems (Last Reviewed 12/31/19 @ 00:[address] Ayaan Duque MD) Acute respiratory failure with hypoxia and hypercapnia (Acute) Acute ctx-TA-olbdlnzls myocardial infarction (Acute 12/31/19) Pulmonary edema (Acute) CHF (congestive heart failure) (Acute) RECOMMENDATIONS: 1. Continue empiric antimicrobials with plans to complete a 7-day treatment course. 2. Continue Lasix, as tolerated by hemodynamics and renal function. 3. Wean supplemental oxygen to maintain saturations at or above 90%. 4. Management of hypertension and atrial fibrillation per cardiology recommendations. 5. Continue nocturnal Pap therapy. 6. Encourage incentive spirometer use and mobilize patient as tolerated. 7. Given the patient's lack of further ICU or pulmonary needs, will sign off. Please call with any additional questions. IMPRESSIONS: 1. Acute combined respiratory failure Likely multifactorial in etiology with acute decompensated heart failure and subsequent pulmonary edema, along with possible community-acquired pneumonia contributing. The patient improved from a respiratory perspective with antimicrobials and diuresis. He was able to be extubated on January 01. Plan to continue to wean supplemental oxygen to maintain saturations at or above 90%. Encourage incentive spirometer use and mobilize patient as tolerated. Plan to complete a 7-day treatment course of antimicrobials. 2. Decompensated heart failure/non-ST segment elevation [place]/chronic atrial fibrillation/coronary artery disease Cardiology is currently following to assist with medical management. Continue diuretic therapy. Will defer management of hypertension and atrial fibrillation to cardiology. Cardiac catheterization revealed diffuse three-vessel coronary disease, for which medical therapy was recommended. 3. Obesity/obstructive sleep apnea/hypothyroidism/hypertension/hyperlipidemia/diabetes mellitus Complicates care, management, recovery and prognosis. Continue sliding scale insulin coverage. This note was generated with [employer] software. It may contain incorrect words, spelling, and punctuation that were not noted in checking the note before signing. Inpatient E&M: 22078 Subs Hosp L2
[2020-01-05 08:25] LABS: Hematocrit 30.7 % (40-54); Hemoglobin 9.6 g/dL (13.0-16.5); Mean Corp Hgb Conc 31.3 g/dL (32-36); Mean Corpuscular Hgb 25.3 pg (27.0-32.0); Mean Corpuscular Volume 80.8 fL (80-94); Mean Platelet Vol. 10.6 fl (6.2-12.0); Platelet Count 204 K/mm3 (150-450); RBC Distribution Width CV 15.4 % (11.6-14.6); RBC Distribution Width SD 44.6 fl (35.1-43.9); White Blood Count 7.1 K/mm3 (4.4-11.0)
[2020-01-05 09:08] LABS: Anion Gap 9 (5-15); BUN 66 mg/dL (7-18); BUN/Creat Ratio 24.9 RATIO (10-20); Calcium,Total 9.6 mg/dL (8.5-10.1); Chloride 106 mmol/L (98-107); Creatinine, Serum 2.65 mg/dL (0.70-1.30); EST Glomerular Filtration Rate 25 mL/min (>60); Est Glom Filt Rate - Afr Amer 30 mL/min (>60); Estimated Creatinine Clearance 22.58 ml/min; Glucose 101 mg/dL (74-106); Potassium 4.1 mmol/L (3.5-5.1); Sodium Level 140 mmol/L (136-145)
[2020-01-05] MEDS: Furosemide 40 MG/4 ML Vial IV (09:12)
[2020-01-05] MEDS: Clopidogrel Bisulfate 75 MG Tablet PO (09:14)
[2020-01-05] MEDS: Sodium Bicarbonate 650 MG Tablet PO (09:14)
[2020-01-05] MEDS: Ranolazine 500 MG Tablet PO ×2 (09:14→21:15)
[2020-01-05] MEDS: Isosorbide Mononitrate 60 MG Tablet PO (09:14)
[2020-01-05] MEDS: amLODIPine 10 MG Tablet PO (09:14)
[2020-01-05] MEDS: levoFLOXacin 750 MG Tablet PO (09:14)
[2020-01-05] MEDS: Metoprolol(XL)Succ 100 MG Tablet PO (09:15)
[2020-01-05 09:30] LABS: International Normalized Ratio 1.5; Prothrombin Time (Protime)PT. 17.3 SECONDS (11.7-14.9)
--- NOTE | 2020-01-05 10:34 | DCINST_ITS ---
- Discharge Diagnoses Current Active Problems: Current Active and Chronic Problems (Last Reviewed 12/31/19 @ 00:[address] Ayaan Duque MD) CKD (chronic kidney disease) (Chronic) Pulmonary edema (Acute) CHF (congestive heart failure) (Acute) You will use the following diet at home:: Calorie/Carbohydrate Controlled (specify 1200, 1400, etc) - 1999, Fluid restricted (specify 2000 mls, 1500 mls) - 1999 Your food should be the consistency of: Regular Discharge Activity: Return to Normal Activity Allergies/Adverse Reactions: Allergies Penicillins Adverse Reaction (Severe, Verified 12/30/19 20:27) Swelling Medications to take at Discharge Aspirin [Adult Low Dose Aspirin EC] 81 mg PO DAILY 07/17/15 Nitroglycerin (INPATIENT USE) [Nitrostat] 0.4 mg SUBLINGUAL Q5M PRN 07/17/15 sodium bicarbonate 650 mg tablet 650 mg PO .q day tab 07/29/17 blood sugar diagnostic See Dose Instructions .ROUTE .MEDSUPPLY #20 ea 08/18/17 insulin syringe-needle U-100 1/2 mL 31 gauge x 15/64 See Dose Instructions .ROUTE .MEDSUPPLY #100 ea 10/24/17 metoprolol succinate 100 mg tablet,extended release 24 hr 100 mg PO DAILY #90 tab 05/29/19 lovastatin 40 mg tablet 40 mg PO DAILY #90 tab 07/10/19 warfarin 5 mg tablet 5 mg PO .COMPLEX #180 tab 07/10/19 amlodipine 10 mg tablet 10 mg PO QDAY #90 tab 07/18/19 furosemide 40 mg tablet 40 mg PO DAILY tab 08/29/19 levothyroxine 75 mcg tablet 75 mcg PO DAILY 09/14/19 clopidogrel 75 mg tablet 75 mg PO DAILY 12/20/19 Furosemide [Lasix] 40 mg PO MOWEFR 12/30/19 Isosorbide Mononitrate [Isosorbide Mononitrate ER] 30 mg PO DAILY 12/30/19 Spironolactone 25 mg PO MOWEFR 12/30/19 Insulin NPH Human [Humulin N Pen] 20 units SUBCUT QHS #0 01/05/20 Primary Care Physician: Masha Treviño MD [Primary Care Provider] - Please follow up with your Primary Care Physician in: in 1-2 weeks Test Results: Test results from this visit will be discussed in further detail at your follow- up appointment, if applicable. Please Follow Up With: Russ Boss MD When: in 2-3 weeks Proposed Discharge Date: 01/05/20
--- NOTE | 2020-01-05 10:38 | PCM.DC.SUM ---
Discharge Date and Diagnosis - Problem List Patient Problems: Active and Suspected Problems (Last Reviewed 12/31/19 @ 00:[address] Ayaan Duque MD) Pulmonary edema (Acute) CHF (congestive heart failure) (Acute) Date of Admission: 12/30/19 Date of Discharge: 01/06/20 - Primary Discharge Diagnosis Acute Problems: Active Problems (Last Reviewed 12/31/19 @ 00:[address] Ayaan Duque MD) Pulmonary edema (Acute) CHF (congestive heart failure) (Acute) - Secondary Discharge Diagnosis Chronic Problems: Chronic Problems (Last Reviewed 12/31/19 @ 00:[address] 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 No pulmonary infiltrates or pleural effusions. Electronically Signed: Francisco Mckeon, at 20:59 EDT Tel , Service support , Chest CT 12/30/19 21:29 IMPRESSION: Probable congestive failure with small right pleural effusion. Cannot exclude coexisting pneumonia. Electronically Signed: Nestor Corbett MD at 22:21 EDT , Service support , Chest X-Ray 12/31/19 03:05 IMPRESSION: Pneumonia. Possible pulmonary edema. There has been worsening since the previous study. Electronically Signed: Lissa Bishop, at 3:58 EDT Tel , Service support , KUB X-Ray 12/31/19 03:10 IMPRESSION: An NG tube is seen its tip is below the diaphragm is in good position. Electronically Signed: Lissa Bishop, at 3:59 EDT Tel , Service support , Summary of Care Provided: Patient is a 79-year-old gentleman admitted with progressive shortness of breath and assessment of acute hypoxic and hypercapnic respiratory failure secondary to CHF was made. Patient was intubated and admitted to the intensive care unit 1. Acute hypoxic and hypercapnic respiratory failure ?Secondary to pulmonary edema as a result of congestive heart failure. Patient remains on the vent. Attempts at weaning on the morning of 01/02/2020 unsuccessful plan is for patient to undergo repeat weaning trial 01/03/2020: Patient weaned off the vent -01/04/2020: Patient remains on high flow oxygen. Plan is for patient to be transferred from ICU to PCU 2. Acute pulmonary edema ?Secondary to congestive heart failure with reduced ejection fraction of 45% with inferior hypokinesis. Patient was managed with diuretics held in view of worsening kidney function ?01/04/2020. Lasix on hold plan is to resume with close monitoring of electrolytes 3. Acute non-ST segment elevation [place] ?Patient managed per protocol consult placed to cardiology plans for patient to undergo left heart catheterization on 01/03/2020 01/03/2020: Patient left heart catheterization demonstrated Normal left main coronary artery. Left anterior descending artery diffusely diseased in the mid segment of approximately 60% in the distal segment of 80 to 90% and a long segment. Left circumflex artery with moderate diffuse disease in the second obtuse marginal branch with 80% stenosis and left to right collaterals. Right coronary artery with proximal 60 to 70% stenosis and mild diffuse disease and midsegment 70% stenosis. Previously placed stent is patent. Based on the above angiographic findings cardiology recommended aggressive medical therapy. 4. Coronary artery disease ?With previous PCI. Patient currently on dual antiplatelet therapy with aspirin and Plavix in addition to statin therapy. As stated above plan is for patient to undergo elective catheterization on 01/03/2020. .5 Chronic A. fib ?Rate controlled metoprolol. Patient is on systemic anticoagulation with Coumadin currently being held in a suspicion of patient left heart catheterization -01/04/2020: Coumadin resumed 01/06/2020; 1.6 as of today 6. Chronic kidney disease stage IV ?Creatinine on admission was 2.43 did worsen peaking at 3.25, improving with creatinine at 2.94 as of 01/02/2020. Also placed to nephrology 7. Diabetes mellitus type 2 ?With complications including diabetic nephropathy. Patient is a long-acting insulin in addition to sliding scale 8. Hypertension - Blood pressure controlled, home medications continued with dose adjustment as needed -01/03/2020: Patient was started on nitroglycerin drip as a result of markedly elevated blood pressure 9. Hypothyroidism - Patient is on levothyroxine home dose continued 10. Dyslipidemia -Patient is on statin therapy, continued at home dose 11. DVT prophylaxis ?Patient is on Coumadin which is currently being held as stated above ?01/04/2020 Coumadin resumed 12. Physical deconditioning - Requested for PT OT eval and social economist to assist with discharge planning 13. Cardiac dysrhythmia Telemetry monitoring demonstrated runs of nonsustained VT. Patient was apparently symptomatic. Subsequently requested for BMP and magnesium. Patient BMP and magnesium were within normal limits except for his creatinine which is chronic. Decision was therefore made to transfer patient to the inpatient rehab unit Patient Problems: Active and Suspected Problems (Last Reviewed 12/31/19 @ 00:[address] Ayaan Duque MD) Pulmonary edema (Acute) CHF (congestive heart failure) (Acute) - Physical Exam Vitals/I&O's: Vital Signs Temp Pulse Resp BP Pulse Ox 97.8 F 75 18 157/88 H 98 01/05/20 09:08 01/05/20 09:15 01/05/20 09:08 01/05/20 09:08 01/05/20 09:08 Oxygen Flow Rate (L/min) 3 Oxygen Delivery Method Room Air Weight: 122.7 kg Body Mass Index (BMI) 40.8 Intake and Output for Last 24 Hours 01/03/20 01/04/20 01/05/20 23:59 23:59 23:59 Intake Total 1159.90 / 1159.90 780 / 780 220 / 220 Output Total 1945 / 1945 2340 / 2340 450 / 450 Balance -785.10 / -785.10 -1560 / -1560 -230 / -230 General: Alert Lungs: Diminished Neurological: Neuro grossly intact Psych/Mental Status: Normal Affect Microbiology Past 72 Hours 12/30/19 22:30 Blood Culture (Wb) - Anticubital Left Blood Culture - Final No growth in 5 days. 12/30/19 22:18 Blood Culture (Wb) - Anticubital Right Blood Culture - Final No growth in 5 days. 01/01/20 15:30 Sputum, Induced/Lukens Gram Stain - Final 01/01/20 15:30 Sputum, Induced/Lukens Respiratory Culture - Final Presumptive C albicans Laboratory Results 01/04/20 11:28: POC Glucose 173 H 01/04/20 16:15: POC Glucose 137 H 01/04/20 20:38: POC Glucose 188 H 01/05/20 06:33: POC Glucose 102 01/05/20 07:48: WBC 7.1, RBC 3.80 L, Hgb 9.6 L, Hct 30.7 L, MCV 80.8, MCH 25.3 L, MCHC 31.3 L, RDW Std Deviation 44.6 H, RDW Coeff of Moni 15.4 H, Plt Count 204, MPV 10.6 01/05/20 07:48: PT 17.3 H, INR 1.5 01/05/20 07:48: Sodium 140, Potassium 4.1, Chloride 106, Carbon Dioxide 25.0, Anion Gap 9, BUN 66 H, Creatinine 2.65 H, Estim Creat Clear Calc 22.58, Est GFR (MDRD) Af Amer 30 L, Est GFR (MDRD) Non-Af 25 L, BUN/Creatinine Ratio 24.9 H, Glucose 101, Calcium 9.6 Current Medications Acetaminophen (Tylenol) 650 mg PO Q6H PRN PRN PRN Reason: Pain Score 1-10/Temp > 100.7 F Amlodipine Besylate (Norvasc) 10 mg PO DAILY [facility] Last Admin: 01/05/20 09:14 Dose: 10 mg Documented by: Aspirin (Aspirin, Baby) 81 mg PO DAILYCM [facility] Last Admin: 01/05/20 07:26 Dose: 81 mg Documented by: Atorvastatin Calcium (Lipitor) 20 mg PO DAILY@2200 [facility] Last Admin: 01/04/20 20:39 Dose: 20 mg Documented by: Clopidogrel Bisulfate (Plavix) 75 mg PO DAILY [facility] Last Admin: 01/05/20 09:14 Dose: 75 mg Documented by: Dextrose (D50w Syringe) 0 gm IV X1 PRN; Protocol PRN Reason: Hypoglycemia Furosemide (Lasix) 40 mg IV DAILY [facility] Last Admin: 01/05/20 09:12 Dose: 40 mg Documented by: Glucagon () 1 mg IM .X1 PRN PRN Reason: Hypoglycemia Sodium Chloride () 250 mls @ 15 mls/hr IV .[id number] PRN PRN Reason: Additional IVPB Infusion Sodium Chloride () 1,000 mls @ 0 mls/hr IV .Q0M ANNA Insulin Glargine (Lantus ([facility])) 20 units SC QHS [facility] Last Admin: 01/04/20 20:40 Dose: 20 units Documented by: Insulin Human Lispro (Humalog Kwikpen ([facility])) 0 unit SC ACHS [facility]; Protocol Last Admin: 01/05/20 06:34 Dose: Not Given Documented by: Isosorbide Mononitrate (Imdur) 60 mg PO DAILY [facility] Last Admin: 01/05/20 09:14 Dose: 60 mg Documented by: Levothyroxine Sodium (Synthroid) 75 mcg PO DAILY@0600 [facility] Last Admin: 01/05/20 05:32 Dose: 75 mcg Documented by: Metoprolol Succinate (Toprol Xl ([place])) 100 mg PO DAILY [facility] Last Admin: 01/05/20 09:15 Dose: 100 mg Documented by: Ondansetron HCl (Zofran) 4 mg IV Q8H PRN PRN PRN Reason: NAUSEA/VOMITING Ranolazine (Ranexa) 500 mg PO BID [facility] Last Admin: 01/05/20 09:14 Dose: 500 mg Documented by: Senna/Docusate Sodium (Senokot-S, Isabella-Colace) 2 tablet PO BID PRN PRN Reason: CONSTIPATION Sodium Bicarbonate (Sodium Bicarbonate) 650 mg PO DAILY [facility] Last Admin: 01/05/20 09:14 Dose: 650 mg Documented by: Sodium Chloride () 10 - 40 ml IV UD PRN PRN Reason: SALINE FLUSH Last Admin: 01/02/20 18:55 Dose: 20 ml Documented by: Spironolactone (Aldactone) 25 mg PO MoWeFr@0800 [facility] Last Admin: 01/04/20 07:53 Dose: 25 mg Documented by: Warfarin Sodium (Jantoven) 5 mg PO DAILY@1700 [facility] Last Admin: 01/04/20 16:18 Dose: 5 mg Documented by: Discharge Activity: Return to Normal Activity Home Medications: Medications to take at Discharge Aspirin [Adult Low Dose Aspirin EC] 81 mg PO DAILY 07/17/15 Nitroglycerin (INPATIENT USE) [Nitrostat] 0.4 mg SUBLINGUAL Q5M PRN 07/17/15 sodium bicarbonate 650 mg tablet 650 mg PO .q day tab 07/29/17 blood sugar diagnostic See Dose Instructions .ROUTE .MEDSUPPLY #20 ea 08/18/17 insulin syringe-needle U-100 1/2 mL 31 gauge x 15/64 See Dose Instructions .ROUTE .MEDSUPPLY #100 ea 10/24/17 metoprolol succinate 100 mg tablet,extended release 24 hr 100 mg PO DAILY #90 tab 05/29/19 lovastatin 40 mg tablet 40 mg PO DAILY #90 tab 07/10/19 warfarin 5 mg tablet 5 mg PO .COMPLEX #180 tab 07/10/19 amlodipine 10 mg tablet 10 mg PO QDAY #90 tab 07/18/19 furosemide 40 mg tablet 40 mg PO DAILY tab 08/29/19 levothyroxine 75 mcg tablet 75 mcg PO DAILY 09/14/19 clopidogrel 75 mg tablet 75 mg PO DAILY 12/20/19 Furosemide [Lasix] 40 mg PO MOWEFR 12/30/19 Isosorbide Mononitrate [Isosorbide Mononitrate ER] 30 mg PO DAILY 12/30/19 Spironolactone 25 mg PO MOWEFR 12/30/19 Insulin NPH Human [Humulin N Pen] 20 units SUBCUT QHS #0 01/05/20 Primary Care Physician: Masha Treviño MD [Primary Care Provider] - Please follow up with your Primary Care Physician in: in 1-2 weeks Please Follow Up With: Russ Boss MD When: in 2-3 weeks Disposition: Inpt Rehab Unit/Facility Minutes spent on discharge:: 45 Patient Condition:: Stable Medical Necessity - Tobacco Use Smoking Status: Former smoker Meaningful Use Info Meaningful Use Diagnoses (Choose all that apply): AMI, CHF - AMI/Post PCI/Angioplasty Aspirin given w/in 24hrs of arrival?: Yes ASA at discharge?: Yes Antiplatelet Therapy at Discharge:: Yes Statins at discharge?: Yes Rodríguez/ARB at discharge?: No Reason Rodríguez/ARB not ordered:: Worsening renal disease [place] at discharge?: Yes Done w/ Acute [place] measure.: Yes Documented LVEF (%): 45 - CHF RODRÍGUEZ/ARB ordered at discharge?: No Reason RODRÍGUEZ/ARB not ordered?: Worsening renal disease Documented LVEF (%): 45 Inpatient E&M: [id number] Disch Hosp
[2020-01-05] MEDS: Insulin Lispro 100 UNIT/ML INSULN.PEN SC ×2 (10:58→21:14)
[2020-01-05 11:10] LABS: Bedside Glucose 226 mg/dL (70-110)
[2020-01-05 16:35] LABS: Bedside Glucose 144 mg/dL (70-110)
--- NOTE | 2020-01-05 20:22 | PCM.PN.REN ---
Patient Problems: Active and Suspected Problems (Last Reviewed 12/31/19 @ 00:[address] Ayaan Duque MD) Pulmonary edema (Acute) CHF (congestive heart failure) (Acute) Subjective: no new events - Physical Exam Vitals/I&O's: Vital Signs Temp Pulse Resp BP Pulse Ox 97.8 F 72 18 129/74 H 96 01/05/20 15:08 01/05/20 19:00 01/05/20 15:08 01/05/20 15:08 01/05/20 15:08 Oxygen Flow Rate (L/min) 3 Oxygen Delivery Method Room Air Weight: 122.7 kg Body Mass Index (BMI) 40.8 Intake and Output for Last 24 Hours 01/03/20 01/04/20 01/05/20 23:59 23:59 23:59 Intake Total 1159.90 / 1159.90 780 / 780 1120 / 1120 Output Total 1945 / 1945 2340 / 2340 1350 / 1350 Balance -785.10 / -785.10 -1560 / -1560 -230 / -230 General: Alert, Oriented x3, Cooperative HEENT: Atraumatic, PERRLA, EOMI, Normocephalic Neck: Supple, No JVD, Negative Carotid Bruits Lungs: Clear to auscultation, Normal air movement Cardiovascular: Regular rate, No murmurs Abdomen: Bowel Sounds Present, Soft, Non Tender Extremities: No edema, Capillary Refill Less than 3 Seconds Skin: No rashes, No breakdown Musculoskeletal: No Tenderness to Palpation of Joints or Extremities Neurological: Cranial nerves II-XII grossly intact Psych/Mental Status: Normal Affect, Appropriate Microbiology Past 72 Hours 12/30/19 22:30 Blood Culture (Wb) - Anticubital Left Blood Culture - Final No growth in 5 days. 12/30/19 22:18 Blood Culture (Wb) - Anticubital Right Blood Culture - Final No growth in 5 days. 01/01/20 15:30 Sputum, Induced/Lukens Gram Stain - Final 01/01/20 15:30 Sputum, Induced/Lukens Respiratory Culture - Final Presumptive C albicans Laboratory Results 01/04/20 20:38: POC Glucose 188 H 01/05/20 06:33: POC Glucose 102 01/05/20 07:48: WBC 7.1, RBC 3.80 L, Hgb 9.6 L, Hct 30.7 L, MCV 80.8, MCH 25.3 L, MCHC 31.3 L, RDW Std Deviation 44.6 H, RDW Coeff of Moni 15.4 H, Plt Count 204, MPV 10.6 01/05/20 07:48: PT 17.3 H, INR 1.5 01/05/20 07:48: Sodium 140, Potassium 4.1, Chloride 106, Carbon Dioxide 25.0, Anion Gap 9, BUN 66 H, Creatinine 2.65 H, Estim Creat Clear Calc 22.58, Est GFR (MDRD) Af Amer 30 L, Est GFR (MDRD) Non-Af 25 L, BUN/Creatinine Ratio 24.9 H, Glucose 101, Calcium 9.6 01/05/20 10:56: POC Glucose 226 H 01/05/20 16:23: POC Glucose 144 H Current Medications Acetaminophen (Tylenol) 650 mg PO Q6H PRN PRN PRN Reason: Pain Score 1-10/Temp > 100.7 F Amlodipine Besylate (Norvasc) 10 mg PO DAILY [facility] Last Admin: 01/05/20 09:14 Dose: 10 mg Documented by: Aspirin (Aspirin, Baby) 81 mg PO DAILYCM [facility] Last Admin: 01/05/20 07:26 Dose: 81 mg Documented by: Atorvastatin Calcium (Lipitor) 20 mg PO DAILY@2200 [facility] Last Admin: 01/04/20 20:39 Dose: 20 mg Documented by: Clopidogrel Bisulfate (Plavix) 75 mg PO DAILY [facility] Last Admin: 01/05/20 09:14 Dose: 75 mg Documented by: Dextrose (D50w Syringe) 0 gm IV X1 PRN; Protocol PRN Reason: Hypoglycemia Furosemide (Lasix) 40 mg IV DAILY [facility] Last Admin: 01/05/20 09:12 Dose: 40 mg Documented by: Glucagon () 1 mg IM .X1 PRN PRN Reason: Hypoglycemia Sodium Chloride () 250 mls @ 15 mls/hr IV .[id number] PRN PRN Reason: Additional IVPB Infusion Sodium Chloride () 1,000 mls @ 0 mls/hr IV .Q0M [facility] Insulin Glargine (Lantus ([facility])) 20 units SC QHS [facility] Last Admin: 01/04/20 20:40 Dose: 20 units Documented by: Insulin Human Lispro (Humalog Kwikpen ([facility])) 0 unit SC ACHS [facility]; Protocol Last Admin: 01/05/20 16:24 Dose: Not Given Documented by: Isosorbide Mononitrate (Imdur) 60 mg PO DAILY [facility] Last Admin: 01/05/20 09:14 Dose: 60 mg Documented by: Levothyroxine Sodium (Synthroid) 75 mcg PO DAILY@0600 [facility] Last Admin: 01/05/20 05:32 Dose: 75 mcg Documented by: Melatonin (Melatonin) 3 mg PO QHS [facility] Metoprolol Succinate (Toprol Xl ([place])) 100 mg PO DAILY [facility] Last Admin: 01/05/20 09:15 Dose: 100 mg Documented by: Ondansetron HCl (Zofran) 4 mg IV Q8H PRN PRN PRN Reason: NAUSEA/VOMITING Ranolazine (Ranexa) 500 mg PO BID [facility] Last Admin: 01/05/20 09:14 Dose: 500 mg Documented by: Senna/Docusate Sodium (Senokot-S, Isabella-Colace) 2 tablet PO BID PRN PRN Reason: CONSTIPATION Sodium Bicarbonate (Sodium Bicarbonate) 650 mg PO DAILY [facility] Last Admin: 01/05/20 09:14 Dose: 650 mg Documented by: Sodium Chloride () 10 - 40 ml IV UD PRN PRN Reason: SALINE FLUSH Last Admin: 01/02/20 18:55 Dose: 20 ml Documented by: Spironolactone (Aldactone) 25 mg PO MoWeFr@0800 [facility] Last Admin: 01/04/20 07:53 Dose: 25 mg Documented by: Warfarin Sodium (Jantoven) 5 mg PO DAILY@1700 [facility] Last Admin: 01/05/20 16:25 Dose: 5 mg Documented by: Medical Necessity - Tobacco Use Smoking Status: Former smoker Assessment/Plan All Active Problems (Last Reviewed 12/31/19 @ 00:[address] Ayaan Duque MD) Acute respiratory failure with hypoxia and hypercapnia (Acute) Acute [id number] myocardial infarction (Acute 12/31/19) Pulmonary edema (Acute) CHF (congestive heart failure) (Acute) CKD stage IV Acute renal failure It seems she has known history of CKD stage IV with baseline creatinine around 2.4 before this admission. This admission creatinine went as high as 3.2 and is down to 2.8. stable for last 2 days. s/p angiogram. urine output remains ok. Non-ST elevation DC, fluid overload. better clinically
[2020-01-05] MEDS: MELATONIN 3 MG TABLET PO (21:13)
[2020-01-05] MEDS: Atorvastatin Calcium 20 MG Tablet PO (21:14)
[2020-01-05 22:16] LABS: Bedside Glucose 173 mg/dL (70-110)
[2020-01-06 02:40] VITALS: BP 123/62; PULSE 67; RESP 18; TEMP 37.1; O2SAT 94
[2020-01-06 03:00] VITALS: PULSE 64
[2020-01-06] MEDS: Levothyroxine 75 MCG Tablet PO (06:31)
[2020-01-06 06:34] VITALS: PULSE 67
[2020-01-06 06:34] LABS: International Normalized Ratio 1.6; Prothrombin Time (Protime)PT. 18.1 SECONDS (11.7-14.9)
[2020-01-06 06:56] LABS: Bedside Glucose 129 mg/dL (70-110)
[2020-01-06] MEDS: Aspirin 81 MG TAB.CHEW PO (07:34)
[2020-01-06 08:00] VITALS: PULSE 90
[2020-01-06 09:17] VITALS: BP 130/71; PULSE 72; RESP 18; TEMP 36.6; O2SAT 96
[2020-01-06 09:19] VITALS: PULSE 72
[2020-01-06] MEDS: Ranolazine 500 MG Tablet PO (09:19)
[2020-01-06] MEDS: Sodium Bicarbonate 650 MG Tablet PO (09:19)
[2020-01-06] MEDS: Isosorbide Mononitrate 60 MG Tablet PO (09:19)
[2020-01-06] MEDS: Furosemide 40 MG/4 ML Vial IV (09:19)
[2020-01-06] MEDS: amLODIPine 10 MG Tablet PO (09:19)
[2020-01-06] MEDS: 0.9% Saline Lock 10 ML Syringe IV (09:19)
[2020-01-06] MEDS: Metoprolol(XL)Succ 100 MG Tablet PO (09:19)
[2020-01-06] MEDS: Clopidogrel Bisulfate 75 MG Tablet PO (09:20)
--- NOTE | 2020-01-06 09:27 | PCM.PN.HOSP ---
Patient Problems: Active and Suspected Problems (Last Reviewed 12/31/19 @ 00:[address] Ayaan Duque MD) Pulmonary edema (Acute) CHF (congestive heart failure) (Acute) Reason for Visit: Acute hypoxic respiratory failure Acute non-STEMI Runs of nonsustained VT Subjective: Patient had runs of nonsustained VT. Patient reported feeling woozy. Subsequently requested for BMP and magnesium. Plans for patient to be transferred to the inpatient rehab unit subsequently placed on hold for 1 day Objective: GENERAL: cooperative HEENT: Atraumatic; EYES; Anicteric, Normal Conjunctiva NECK; supple, normal thyroid, RESPIRATORY: Diminished to auscultation CARDIOVASCULAR: Regular S1 S2, GI: soft, normoactive bowel sounds, : No Renal angle tenderness; EXTREMITIES: No edema, no clubbing, MUSCULOSKELETAL: no muscle waisting NEURO: Awake; no lateralizing signs. SKIN: No Rash PSYCH; Flat affect Vitals/I&O's: Vital Signs Temp Pulse Resp BP Pulse Ox 97.8 F 72 18 130/71 H 96 01/06/20 09:17 01/06/20 09:19 01/06/20 09:17 01/06/20 09:17 01/06/20 09:17 Oxygen Flow Rate (L/min) 3 Oxygen Delivery Method Room Air Weight: 120.9 kg Body Mass Index (BMI) 40.8 Intake and Output for Last 24 Hours 01/04/20 01/05/20 01/06/20 23:59 23:59 23:59 Intake Total 780 / 780 1120 / 1220 340 / 340 Output Total 2340 / 2340 1350 / 1500 725 / 725 Balance -1560 / -1560 -230 / -280 -385 / -385 Microbiology Past 72 Hours 12/30/19 22:30 Blood Culture (Wb) - Anticubital Left Blood Culture - Final No growth in 5 days. 12/30/19 22:18 Blood Culture (Wb) - Anticubital Right Blood Culture - Final No growth in 5 days. 01/01/20 15:30 Sputum, Induced/Lukens Gram Stain - Final 01/01/20 15:30 Sputum, Induced/Lukens Respiratory Culture - Final Presumptive C albicans Laboratory Results 01/05/20 07:48: PT 17.3 H, INR 1.5 01/05/20 10:56: POC Glucose 226 H 01/05/20 16:23: POC Glucose 144 H 01/05/20 21:11: POC Glucose 173 H 01/06/20 06:10: PT 18.1 H, INR 1.6 01/06/20 06:29: POC Glucose 129 H 01/06/20 08:26: Sodium Pending, Potassium Pending, Chloride Pending, Carbon Dioxide Pending, Anion Gap Pending, BUN Pending, Creatinine Pending, Est GFR (MDRD) Af Amer Pending, Est GFR (MDRD) Non-Af Pending, BUN/Creatinine Ratio Pending, Glucose Pending, Calcium Pending, Magnesium Pending Current Medications Acetaminophen (Tylenol) 650 mg PO Q6H PRN PRN PRN Reason: Pain Score 1-10/Temp > 100.7 F Amlodipine Besylate (Norvasc) 10 mg PO DAILY [facility] Last Admin: 01/06/20 09:19 Dose: 10 mg Documented by: [facility], [facility] Admin: 01/06/20 07:34 Dose: 81 mg Documented by: Atorvastatin Calcium (Lipitor) 20 mg PO DAILY@2200 [facility] Last Admin: 01/05/20 21:14 Dose: 20 mg Documented by: Clopidogrel Bisulfate (Plavix) 75 mg PO DAILY [facility] Last Admin: 01/06/20 09:20 Dose: 75 mg Documented by: Dextrose (D50w Syringe) 0 gm IV X1 PRN; Protocol PRN Reason: Hypoglycemia Furosemide (Lasix) 40 mg IV DAILY [facility] Last Admin: 01/06/20 09:19 Dose: 40 mg Documented by: Glucagon () 1 mg IM .X1 PRN PRN Reason: Hypoglycemia Sodium Chloride () 250 mls @ 15 mls/hr IV .[id number] PRN PRN Reason: Additional IVPB Infusion Sodium Chloride () 1,000 mls @ 0 mls/hr IV .Q0M [facility] Insulin Glargine (Lantus (Bkc)) 20 units SC QHS [facility] Last Admin: 01/05/20 21:13 Dose: 20 units Documented by: Insulin Human Lispro (Humalog Kwikpen (Bkc)) 0 unit SC ACHS [facility]; Protocol Last Admin: 01/06/20 06:31 Dose: Not Given Documented by: Isosorbide Mononitrate (Imdur) 60 mg PO DAILY [facility] Last Admin: 01/06/20 09:19 Dose: 60 mg Documented by: Levothyroxine Sodium (Synthroid) 75 mcg PO DAILY@0600 [facility] Last Admin: 01/06/20 06:31 Dose: 75 mcg Documented by: Melatonin (Melatonin) 3 mg PO QHS [facility] Last Admin: 01/05/20 21:13 Dose: 3 mg Documented by: Metoprolol Succinate (Toprol Xl ([place])) 100 mg PO DAILY [facility] Last Admin: 01/06/20 09:19 Dose: 100 mg Documented by: Ondansetron HCl (Zofran) 4 mg IV Q8H PRN PRN PRN Reason: NAUSEA/VOMITING Ranolazine (Ranexa) 500 mg PO BID [facility] Last Admin: 01/06/20 09:19 Dose: 500 mg Documented by: Senna/Docusate Sodium (Senokot-S, Isabella-Colace) 2 tablet PO BID PRN PRN Reason: CONSTIPATION Sodium Bicarbonate (Sodium Bicarbonate) 650 mg PO DAILY [facility] Last Admin: 01/06/20 09:19 Dose: 650 mg Documented by: Sodium Chloride () 10 - 40 ml IV UD PRN PRN Reason: SALINE FLUSH Last Admin: 01/06/20 09:19 Dose: 10 ml Documented by: Spironolactone (Aldactone) 25 mg PO MoWeFr@0800 [facility] Last Admin: 01/04/20 07:53 Dose: 25 mg Documented by: Warfarin Sodium (Jantoven) 5 mg PO DAILY@1700 [facility] Last Admin: 01/05/20 16:25 Dose: 5 mg Documented by: STROKE Vital Signs/Narrative: Vital Signs Temp Pulse Resp BP Pulse Ox 01/06/20 09:19 72 01/06/20 09:17 97.8 F 72 18 130/71 H 96 01/06/20 08:00 90 01/06/20 06:34 67 Medical Necessity - Tobacco Use Smoking Status: Former smoker Assessment/Plan All Active Problems (Last Reviewed 12/31/19 @ 00:[address] Ayaan Duque MD) Acute respiratory failure with hypoxia and hypercapnia (Acute) Acute [id number] myocardial infarction (Acute 12/31/19) Pulmonary edema (Acute) CHF (congestive heart failure) (Acute) Patient is a 79-year-old gentleman admitted with progressive shortness of breath and assessment of acute hypoxic and hypercapnic respiratory failure secondary to CHF was made. Patient was intubated and admitted to the intensive care unit 1. Acute hypoxic and hypercapnic respiratory failure ?Secondary to pulmonary edema as a result of congestive heart failure. Patient remains on the vent. Attempts at weaning on the morning of 01/02/2020 unsuccessful plan is for patient to undergo repeat weaning trial 01/03/2020: Patient weaned off the vent -01/04/2020: Patient remains on high flow oxygen. Plan is for patient to be transferred from ICU to PCU 2. Acute pulmonary edema ?Secondary to congestive heart failure with reduced ejection fraction of 45% with inferior hypokinesis. Patient was managed with diuretics held in view of worsening kidney function ?01/04/2020. Lasix on hold plan is to resume with close monitoring of electrolytes 3. Acute non-ST segment elevation [place] ?Patient managed per protocol consult placed to cardiology plans for patient to undergo left heart catheterization on 01/03/2020 01/03/2020: Patient left heart catheterization demonstrated Normal left main coronary artery. Left anterior descending artery diffusely diseased in the mid segment of approximately 60% in the distal segment of 80 to 90% and a long segment. Left circumflex artery with moderate diffuse disease in the second obtuse marginal branch with 80% stenosis and left to right collaterals. Right coronary artery with proximal 60 to 70% stenosis and mild diffuse disease and midsegment 70% stenosis. Previously placed stent is patent. Based on the above angiographic findings cardiology recommended aggressive medical therapy. 4. Coronary artery disease ?With previous PCI. Patient currently on dual antiplatelet therapy with aspirin and Plavix in addition to statin therapy. As stated above plan is for patient to undergo elective catheterization on 01/03/2020. .5 Chronic A. fib ?Rate controlled metoprolol. Patient is on systemic anticoagulation with Coumadin currently being held in a suspicion of patient left heart catheterization -01/04/2020: Coumadin resumed 01/06/2020; 1.6 as of today 6. Chronic kidney disease stage IV ?Creatinine on admission was 2.43 did worsen peaking at 3.25, improving with creatinine at 2.94 as of 01/02/2020. Also placed to nephrology 7. Diabetes mellitus type 2 ?With complications including diabetic nephropathy. Patient is a long-acting insulin in addition to sliding scale 8. Hypertension - Blood pressure controlled, home medications continued with dose adjustment as needed -01/03/2020: Patient was started on nitroglycerin drip as a result of markedly elevated blood pressure 9. Hypothyroidism - Patient is on levothyroxine home dose continued 10. Dyslipidemia -Patient is on statin therapy, continued at home dose 11. DVT prophylaxis ?Patient is on Coumadin which is currently being held as stated above ?01/04/2020 Coumadin resumed 12. Physical deconditioning - Requested for PT OT eval and social media marketer to assist with discharge planning 13. Cardiac dysrhythmia Telemetry monitoring demonstrated runs of nonsustained VT. Patient was apparently symptomatic. Subsequently requested for BMP and magnesium. Plan for patient to be transferred to the inpatient rehab unit please on hold for 1 day Inpatient E&M: 07206 [facility] L[facility]
[2020-01-06 09:31] LABS: Anion Gap 7 (5-15); BUN 66 mg/dL (7-18); BUN/Creat Ratio 23.1 RATIO (10-20); Calcium,Total 9.5 mg/dL (8.5-10.1); Chloride 106 mmol/L (98-107); Creatinine, Serum 2.86 mg/dL (0.70-1.30); EST Glomerular Filtration Rate 23 mL/min (>60); Est Glom Filt Rate - Afr Amer 28 mL/min (>60); Estimated Creatinine Clearance 20.93 ml/min; Glucose 117 mg/dL (74-106); Magnesium 2.4 mg/dL (1.6-2.6); Sodium Level 139 mmol/L (136-145)
[2020-01-06 11:21] LABS: Bedside Glucose 185 mg/dL (70-110)
[2020-01-06] MEDS: Insulin Lispro 100 UNIT/ML INSULN.PEN SC (11:26)
--- NOTE | 2020-01-06 12:20 | NURSING ---
This RN called and gave report to SAGE Bah on the rehab unit.
== END 2020-01-06 13:05 | DRG 208 ==
LOC: ED 22:15 → ICU 22:24 → PCU 01-04 10:40
PROVIDERS: Hospitalist; Internal Medicine Critical Care Medicine; Admitting Provider Hospitalist; Emergency Provider Emergency Medicine; PCP Family Medicine; Visit Provider Internal Medicine
DX: J96.01 Acute respiratory failure with hypoxia (principal); I50.43 Acute on chronic combined systolic (congestive) and diastolic (congestive) heart failure; I21.4 Non-ST elevation (NSTEMI) myocardial infarction; I13.0 Hypertensive heart and chronic kidney disease with heart failure and stage 1 through stage 4 chronic kidney disease, or unspecified chronic kidney disease; N18.4 Chronic kidney disease, stage 4 (severe); I48.11 Longstanding persistent atrial fibrillation; Z68.41 Body mass index [BMI] 40.0-44.9, adult; N17.9 Acute kidney failure, unspecified; I47.2 Ventricular tachycardia; J96.02 Acute respiratory failure with hypercapnia; E11.22 Type 2 diabetes mellitus with diabetic chronic kidney disease; E78.5 Hyperlipidemia, unspecified; E11.65 Type 2 diabetes mellitus with hyperglycemia; I25.10 Atherosclerotic heart disease of native coronary artery without angina pectoris; E03.9 Hypothyroidism, unspecified; G47.33 Obstructive sleep apnea (adult) (pediatric); Z87.891 Personal history of nicotine dependence; Z95.5 Presence of coronary angioplasty implant and graft; E66.9 Obesity, unspecified
CPT/HCPCS: 31500; 31720; 36415; 36600; 71045; 71250; 74018; 80048; 80061; 80202; 82550; 82728; 82803; 82962; 83605; 83735; 83880; 84100; 84145; 84478; 84484; 85025; 85027; 85379; 85384; 85610; 87040; 87070; 87205; 87449; 87633; 87635; 87641; 93005; 93306; 93454; 94002; 94003; 94660; 97110; 97116; 97162; 97166; 97530; 97535; 97802; 97803; 99152; 99251; 99285; C9803; J2185; J7040; J7050; Q9957; Q9967; A4216; C1769; C1894; C8929; G0463; J1940; J2405; J3010; U0003

== ENCOUNTER 2020-01-06 13:45 | Inpatient (IN) | payer MEDICARE, OTHER, SELFPAY ==
[2019-12-31 13:06] VITALS: BMI 40.8
[2020-01-06 14:30] VITALS: BP 143/82; PULSE 70; RESP 18; TEMP 36.3; O2SAT 96
[2020-01-06 15:24] VITALS: BMI 40.5
[2020-01-06 16:56] LABS: Bedside Glucose 118 mg/dL (70-110)
[2020-01-06 18:58] VITALS: O2SAT 94
[2020-01-06 20:47] VITALS: BP 144/85; PULSE 79; RESP 18; TEMP 36.4; O2SAT 93
[2020-01-06 21:06] LABS: Bedside Glucose 166 mg/dL (70-110)
[2020-01-06] MEDS: Atorvastatin Calcium 10 MG Tablet PO (22:24)
[2020-01-06] MEDS: Insulin NPH Human 100 UNITS/ML PEN 20 UNITS SC (22:25)
[2020-01-06] MEDS: Insulin Lispro 100 UNIT/ML INSULN.PEN SC (22:43)
[2020-01-07] MEDS: Levothyroxine 75 MCG Tablet PO (05:38)
[2020-01-07 05:56] LABS: ALB/GLOB Ratio 0.7 RATIO (0.9-2.4); AST(SGOT) 21 U/L (15-37); Alanine Aminotransfer ALT/SGPT 23 U/L (16-61); Albumin, Serum 2.7 g/dL (3.2-5.0); Alkaline Phosphatase 97 U/L (45-117); Anion Gap 9 (5-15); BUN 68 mg/dL (7-18); BUN/Creat Ratio 22.8 RATIO (10-20); Calcium,Total 9.2 mg/dL (8.5-10.1); Chloride 104 mmol/L (98-107); Creatinine, Serum 2.98 mg/dL (0.70-1.30); EST Glomerular Filtration Rate 22 mL/min (>60); Est Glom Filt Rate - Afr Amer 26 mL/min (>60); Estimated Creatinine Clearance 20.08 ml/min; Glucose 83 mg/dL (74-106); Magnesium 2.4 mg/dL (1.6-2.6); Phosphorus 5.1 mg/dL (2.5-4.9); Potassium 3.9 mmol/L (3.5-5.1); Protein, Total 6.7 g/dL (6.4-8.2); Sodium Level 138 mmol/L (136-145)
[2020-01-07 06:40] LABS: Bedside Glucose 90 mg/dL (70-110)
[2020-01-07 07:06] VITALS: O2SAT 96
[2020-01-07 07:40] VITALS: BP 144/85; PULSE 79
[2020-01-07] MEDS: Furosemide 40 MG Tablet PO (07:40)
[2020-01-07] MEDS: Aspirin E.C. 81 MG Tablet PO (07:40)
[2020-01-07] MEDS: Metoprolol(XL)Succ 100 MG Tablet PO (07:40)
[2020-01-07] MEDS: Isosorbide Mononitrate 30 MG Tablet PO (07:40)
[2020-01-07] MEDS: Clopidogrel Bisulfate 75 MG Tablet PO (07:40)
[2020-01-07] MEDS: Sodium Bicarbonate 650 MG Tablet PO (07:40)
[2020-01-07] MEDS: amLODIPine 10 MG Tablet PO (07:40)
--- NOTE | 2020-01-07 08:03 | NURSING ---
PT DID NOT VOID IN URINAL TO BE MEASURED PRIOR TO BLADDER SCAN.
--- NOTE | 2020-01-07 08:05 | NURSING ---
PT ASSISTED UP TO BR. PT SOB WITH EXERTION. PT THEN LAID DOWN IN BED TO BLADDER SCAN. PT BECAME VERY SOB WHILE LYING DOWN. PT HAD TO QUICKLY SIT UP ON SIDE OF BED. BREATHING BETTER UPRIGHT.
[2020-01-07 08:58] VITALS: BP 143/84; PULSE 66; RESP 20; TEMP 36.3; O2SAT 95
[2020-01-07] MEDS: Spironolactone 25 MG Tablet PO (09:30)
--- NOTE | 2020-01-07 10:27 | HP.PCM_ITS ---
Problem List (1) Chronic renal failure, stage 4 (severe) Status: Chronic (2) Hyperphosphatemia Status: Acute (3) Ischemic cardiomyopathy Status: Acute Comment: 40% EF with wall motion abnormalities on cardiac catheterization on 01/03/2020 (4) Iron deficiency anemia Status: Suspected (5) Acute respiratory failure with hypoxia and hypercapnia Status: Resolved Comment: Secondary to acute congestive heart failure (6) Acute eir-XM-jyonnentr myocardial infarction Status: Acute (7) Pulmonary edema Status: Acute (8) CHF (congestive heart failure) Status: Resolved Qualifiers: Heart failure type: combined systolic and diastolic (9) Atherosclerotic heart disease of [place] coronary artery without angina pectoris Status: Chronic Qualifiers: [place] vs. transplanted heart: [place] heart Qualified Code(s): I25.10 - Atherosclerotic heart disease of [place] coronary artery without angina pectoris (10) Longstanding persistent atrial fibrillation Status: Chronic (11) History of coronary artery stent placement Status: Chronic Comment: BMS to Mid RCA w/ 3.5 x 24 mm Glass Mechanic Stent 04/03/2003; BMS to Distal RCA w/ 3.0 x 18 mm Glass Mechanic Stent 06/04/2004; POBA-ISR Prox and Distal RCA 06/03/15 (12) Essential (primary) hypertension Status: Chronic (13) Hyperlipidemia Status: Chronic Qualifiers: Hyperlipidemia type: pure hypercholesterolemia Qualified Code(s): E78.00 - Pure hypercholesterolemia, unspecified (14) 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 Chest pain was associated with shortness of breath. He was diagnosed with a NSTEMI and acute congestive heart failure resulting in acute respiratory failure requiring mechanical ventilation. He underwent cardiac catheterization on 01/03/[address] Russ Boss and this showed diffuse three-vessel disease involving a long segment of the LAD as well as the distal LAD, the circumflex artery with diffuse disease and second obtuse marginal branch with a high-grade proximal stenosis, 70% stenosis of the ostium of the right coronary artery and 70% stenosis of the distal RCA. The ejection fraction on cath is 40%. Echocardiogram showed wall motion abnormalities with an 40% ejection fraction and no significant valvular heart disease. The PA systolic was estimated at 30. He is being treated with aggressive medical therapy. While in the hospital he had ARF on CRF stage 4 and nephrology was consulted. His baseline creatinine is approximately 2.4 and it lidia to 3.2 while in the hospital. His weight at presentation to the hospital on 12/30/2019 was 268 pounds and 5 ounces and this a.m. is 266 pounds and 6 ounces. Shakeel was admitted to the acute inpatient rehab unit on 01/06/2020 for physical debility secondary to ID, acute congestive heart failure, acute respiratory failure requiring mechanical ventilation and acute on chronic renal failure. He will have greater than 3 hours of therapy daily to restore him at or near his prior level of function/independence. River has been following a commercial diet called [employer]. 5 snacks a day and 1 meal. Must drink 60 oz of water with each snack? Recently fell off the diet when he went on vacation. Lowest wt was 257 and when he fell off the wagon his wt went up to 265. Refused education with the data center manager today. Follows with Dr. Kessler for endo and Dr. Boss for cards. He sees a computer forensics examiner in [place]....his computer forensics examiner recently retired. He liked Dr. Howell and may want to follow up with him going forward. Past Medical History Past Medical History (Chronic Problems): Chronic Problems (Last Reviewed 01/07/20 @ 13:[address] Delfina Carbajal, DO) Chronic renal failure, stage 4 (severe) (Chronic) Left atrial enlargement (Chronic) Morbid obesity (Chronic) ANKIT (obstructive sleep apnea) (Chronic) Atherosclerotic heart disease of [place] coronary artery without angina pectoris (Chronic) Longstanding persistent atrial fibrillation (Chronic) History of coronary artery stent placement (Chronic 06/03/15) BMS to Mid RCA w/ 3.5 x 24 mm Glass Mechanic Stent 04/03/2003; BMS to Distal RCA w/ 3.0 x 18 mm Glass Mechanic Stent 06/04/2004; POBA-ISR Prox and Distal RCA 06/03/15 Essential (primary) hypertension (Chronic) Hyperlipidemia (Chronic) long-term (current) use of anticoagulants (Chronic) Type 2 diabetes mellitus (Chronic) Medical History: Medical History (Last Reviewed 01/07/20 @ 13:[address] Delfina Carbajal, DO) Atherosclerotic heart disease of [place] coronary artery without angina pectoris (Chronic) I25.10 Longstanding persistent atrial fibrillation (Chronic) I48.11 Essential (primary) hypertension (Chronic) I10 Hyperlipidemia (Chronic) E78.5 long-term (current) use of anticoagulants (Chronic) Z79.01 Type 2 diabetes mellitus (Chronic) E11.9 Hypothyroidism E03.9 Obstructive sleep apnea G47.33 Allergies Penicillins Adverse Reaction (Severe, Verified 12/30/19 20:27) Swelling Home Medications: Ambulatory Orders Medication Instructions Recorded Aspirin [Adult Low Dose Aspirin EC] 81 mg PO DAILY 07/17/15 Nitroglycerin (INPATIENT USE) 0.4 mg SUBLINGUAL Q5M PRN 07/17/15 [Nitrostat] sodium bicarbonate 650 mg tablet 650 mg PO .q day tab 07/29/17 blood sugar diagnostic 1 applic MISCELL. .MEDSUPPLY #20 ea 08/18/17 furosemide 40 mg tablet 40 mg PO DAILY tab 08/29/19 levothyroxine 75 mcg tablet 75 mcg PO DAILY 09/14/19 clopidogrel 75 mg tablet 75 mg PO DAILY 12/20/19 Isosorbide Mononitrate [Isosorbide 30 mg PO DAILY 12/30/19 Mononitrate ER] Spironolactone 25 mg PO MOWEFR 12/30/19 Insulin NPH Human [Humulin N Pen] 20 units SUBCUT QHS #0 01/05/20 Amlodipine Besylate [Norvasc] 10 mg PO QDAY 01/06/20 Insulin Lispro [Humalog KwikPen] See Protocol SQ ACHS 01/06/20 Lovastatin 40 mg PO QHS 01/06/20 Metoprolol Succinate [Toprol Xl] 100 mg PO DAILY 01/06/20 Warfarin Sodium [Coumadin] 5 mg PO .COMPLEX 01/06/20 Surgical History: Surgical History (Last Reviewed 01/07/20 @ 13:[address] Delfina Carbajal DO) History of coronary artery stent placement (Chronic) Onset Date: 06/03/15 Z95.5 BMS to Mid RCA w/ 3.5 x 24 mm Glass Mechanic Stent 04/03/2003; BMS to Distal RCA w/ 3.0 x 18 mm Glass Mechanic Stent 06/04/2004; POBA-ISR Prox and Distal RCA 06/03/15 History of back surgery Onset Date: 01/2019 Z98.890 Lumbar History of left heart catheterization Onset Date: 01/03/20 Z98.890 History of total right knee replacement (TKR) Z96.651 Surgical History: angioplasty, total knee arthroplasty, - - Back surgery Psychiatric History: No pertinent psych hx Lives: Spouse/ Significant Other Smoking Status: Former smoker - Quit in 1977 Tobacco Use: Cigarettes Alcohol: Occasional Drugs: None - *Family History Maternal Family History: Family History (Last Reviewed 01/07/20 @ 13:[address] Delfina Carbajal DO) Father CAD (coronary artery disease) Embolism Mother Kidney disease Paternal Family History: Family History (Last Reviewed 01/07/20 @ 13:[address] Delfina Carbajal DO) Father CAD (coronary artery disease) Embolism Mother Kidney disease Review of Systems Constitutional: Denies: Anorexia, Chills, Fever, Malaise, Weight Change Eyes: Denies: Blurred vision, Vision Change HEENT: Reports: - - chronic rhinorrhea. Denies: Head Aches, Sinus Congestion, Sinus Drainage, Sore Throat Cardiovascular: Reports: Edema - better with the CONNOR hose. sometimes wears. Denies: Chest Pain, Claudication, Chest Tightness, Light Headedness, Orthopnea, Palpitations, Syncope Respiratory: Reports: Shortness of breath upon exertion. Denies: Cough, Shortness of breath at rest, Sputum production Gastrointestinal: Denies: Abdominal Pain, Constipation, Diarrhea, Nausea, Vomi ting Genitourinary: Denies: Dysuria Musculoskeletal: Reports: - - He tells me that he had a fall in the bathtub.....now he has a walk-in shower. He started having R knee pain and the MRI of the back was unremarkable. Plain XRAYS of the knee were unremarkable. He had a EMG/ENG and it was positive for nerve compression. It has gradually been getting better. He also was having trouble with going up and down steps.. Denies: Joint Pain, Joint Tenderness Skin: Denies: Jaundice, Rash, Wounds Neurological: Denies: Focal weakness, Headaches, Numbness, Tingling, Tremor, Seizures Psychiatric: Denies: Anxiety, Depression, Homicidal Ideations, Suicidal Ideations Endocrine: Denies: Hx of Irradiation Hematologic/ Lymphatic: Denies: Easy Bruising, Easy Bleeding VTE Information - Inpt Only VTE Present on Admission: No VTE Mechan Device Prophylaxis: Knee High CONNOR Hose VTE Pharm Prophylaxis ordered?: No Reason prophylaxis not ordered:: Treatment Not Indicated - he is on Warfarin for AF Patient Problems: Active and Suspected Problems (Last Reviewed 01/07/20 @ 13:[address] Delfina Carbajal, DO) Hyperphosphatemia (Acute) Ischemic cardiomyopathy (Acute) 40% EF with wall motion abnormalities on cardiac catheterization on 01/03/2020 Iron deficiency anemia (Suspected) - Physical Exam Vitals/I&O's: Vital Signs Temp Pulse Resp BP Pulse Ox 97.4 F L 66 20 H 143/84 H 95 01/07/20 08:58 01/07/20 08:58 01/07/20 08:58 01/07/20 08:58 01/07/20 08:58 Oxygen Delivery Method Room Air Weight: 266 lb 6 oz Body Mass Index (BMI) 40.5 Intake and Output for Last 24 Hours 01/05/20 01/06/20 01/07/20 23:59 23:59 23:59 Intake Total 360 / 360 710 / 710 Output Total 300 / 300 700 / 700 Balance 60 / 60 General: Alert, Oriented x3, Cooperative, No apparent distress, Well developed, Well nourished HEENT: Atraumatic, PERRLA, EOMI, Normocephalic Oral: Dry Mucosa Neck: Supple, No JVD, Negative Carotid Bruits, No Nodes, No Nuchal Rigidity, Trachea Midline, - - very soft BL bruits Lungs: Clear to auscultation, Normal air movement, No rhonchi, No wheeze, No rales, Diminished - may be due to body habitus Cardiovascular: Regular rate, No murmurs Abdomen: Bowel Sounds Present, Soft, Non Tender, Non-Distended, Obese, - - No abdominal bruits Extremities: No clubbing, No cyanosis, Capillary Refill Less than 3 Seconds, No Calf Tenderness, Edema - controlled with CONNOR hose pretty well, - - Radial pulses are 3/3 bilaterally. Could not accurately assess pedal pulses due to presence of CONNOR hose and shoes at the time of my exam. Will defer to them later. Skin: No rashes, No breakdown, - - Has some areas of ecchymosis that are small on the lower extremities Musculoskeletal: No Tenderness to Palpation of Joints or Extremities, No Muscle Wasting Neurological: Cranial nerves II-XII grossly intact, Neuro grossly intact - except for peripheral neuropathy in the feet Psych/Mental Status: Normal Affect, Appropriate Laboratory Results 01/06/20 16:49: POC Glucose 118 H 01/06/20 20:56: POC Glucose 166 H 01/07/20 05:30: Sodium 138, Potassium 3.9, Chloride 104, Carbon Dioxide 25.0, Anion Gap 9, BUN 68 H, Creatinine 2.98 H, Estim Creat Clear Calc 20.08, Est GFR (MDRD) Af Amer 26 L, Est GFR (MDRD) Non-Af 22 L, BUN/Creatinine Ratio 22.8 H, Glucose 83, Calcium 9.2, Phosphorus 5.1 H, Magnesium 2.4, Total Bilirubin 0.70, AST 21, ALT 23, Alkaline Phosphatase 97, Total Protein 6.7, Albumin 2.7 L, Globulin 4.0, Albumin/Globulin Ratio 0.7 L 01/07/20 06:31: POC Glucose 90 Current Medications Acetaminophen (Tylenol) 650 mg PO Q6H PRN PRN PRN Reason: Pain Score 1-10/10 Amlodipine Besylate (Norvasc) 10 mg PO DAILY [facility] Last Admin: 01/07/20 07:40 Dose: 10 mg Documented by: [facility] Admin: 01/07/20 07:40 Dose: 81 mg Documented by: Atorvastatin Calcium (Lipitor) 10 mg PO QHS [facility] Last Admin: 01/06/20 22:24 Dose: 10 mg Documented by: Bisacodyl (Dulcolax) 10 mg RECTAL .PRN X 1 PRN PRN Reason: Constipation Clopidogrel Bisulfate (Plavix) 75 mg PO DAILY [facility] Last Admin: 01/07/20 07:40 Dose: 75 mg Documented by: Furosemide (Lasix) 40 mg PO DAILY [facility] Last Admin: 01/07/20 07:40 Dose: 40 mg Documented by: Insulin Human Lispro (Humalog Kwikpen (Bkc)) 0 unit SC ACHS [facility]; Protocol Last Admin: 01/07/20 06:32 Dose: Not Given Documented by: Insulin Human NPH (Humulin N (Bkc)) 20 units SC QHS [facility] Last Admin: 01/06/20 22:25 Dose: 20 u Documented by: Isosorbide Mononitrate (Imdur) 30 mg PO DAILY [facility] Last Admin: 01/07/20 07:40 Dose: 30 mg Documented by: Levothyroxine Sodium (Synthroid) 75 mcg PO DAILY@0600 [facility] Last Admin: 01/07/20 05:38 Dose: 75 mcg Documented by: Magnesium Hydroxide (Milk Of Magnesia) 30 ml PO .PRN X 1 PRN PRN Reason: Constipation Metoprolol Succinate (Toprol Xl ([place])) 100 mg PO DAILY [facility] Last Admin: 01/07/20 07:40 Dose: 100 mg Documented by: Nitroglycerin (Nitrostat) 0.4 mg SUBLINGUAL Q5M PRN PRN Reason: CHEST Sodium Bicarbonate (Sodium Bicarbonate) 650 mg PO DAILY [facility] Last Admin: 01/07/20 07:40 Dose: 650 mg Documented by: Sodium Chloride () 10 - 40 ml IV UD PRN PRN Reason: SALINE FLUSH Spironolactone (Aldactone) 25 mg PO MoWeFr@0800 [facility] Last Admin: 01/07/20 09:30 Dose: 25 mg Documented by: Warfarin Sodium (Jantoven) 5 mg PO SuFrSa@1700 [facility]; Protocol Last Admin: 01/06/20 18:12 Dose: 5 mg Documented by: Warfarin Sodium (Coumadin (Pbkc)) 7.5 mg PO MoTuWeTh@1700 [facility] Assessment/Plan All Active Problems (Last Reviewed 01/07/20 @ 13:[address] Delfina Carbajal, DO) Hyperphosphatemia (Acute) Ischemic cardiomyopathy (Acute) Acute respiratory failure with hypoxia and hypercapnia (Resolved) Acute pjy-AF-jqpraxrim myocardial infarction (Acute 12/31/19) Pulmonary edema (Acute) CHF (congestive heart failure) (Resolved) Impressions 1. Debility secondary to recent end STEMI, acute congestive heart failure, acute respiratory failure requiring intubation and acute on chronic renal failure. 2. Diffuse triple-vessel coronary artery disease with history of stents in the past. Recent cardiac cath with no intervention. Aggressive risk factor management/medical therapy recommended. 3. Diabetes mellitus type 2 in the odtan-hrxo-yokdwxnnba with last hemoglobin A1c 5.3%. Follows with Dr. Kyle Kessler. 4. Hypertension-not optimally controlled especially in light of recent decrease in ejection fraction to 40 to 45%. Will add Cardura 1 mg p.o. nightly. Continue metoprolol 100 mg daily and amlodipine 10 mg daily. 5. Fllpolmevpwzyf-uowt-vgxjbkxggn 6. Morbid obesity-has been losing weight and was over 300 pounds in the past. 7. Diabetic peripheral polyneuropathy in his feet 8. Obstructive sleep apnea on CPAP 9. Paroxysmal atrial fibrillation-on warfarin and metoprolol for rate control 10. Chronic renal failure stage IV 11. Acute on chronic renal failure more likely than not secondary to acute congestive heart failure and I necessary for cardiac cath 12. Hyperphosphatemia-mild 13. Ischemic cardiomyopathy with a 40 to 45% EF and wall motion abnormalities 14. Suspected iron deficiency anemia 15. Left atrial enlargement PLAN PT for gait stability OT for ADL's ST for evaluation Analgesics as needed Bowel protocol Fall precautions Assess for Anxiety/Depression GI prophylaxis-no history of peptic ulcer disease DVT prophylaxis - not necessary he is on full dose warfarin for paroxysmal atrial fibrillation Follow up with Dr. Boss, Dr. Chen, nephrology following DC from Rehab AM lab including BMP, iron studies, PT/INR Hemoccult stool Patient now agreeable to dietary education. Discussed with the dietitian. Will prescribe 1800-calorie cardiac diet with reduced protein secondary to stage IV chronic renal failure. Marely from dietary will talk to the patient and his on after team rounds regarding salt restriction. River's will bring in some of the products they use from [employer] to look to see how much protein he is getting. referral to Dr. Howell at [facility] recommend he always use a cane with ambulation in light of falls and peripheral neuropathy. Try the neuropathic cream on the R knee BID D/W Dr. Kessler. Abbie at [facility] whil;e in the hospital and a low dose SSI and then at DC put him back on Humulin 70/30 BID at DC and he will follow up with Dr. Kessler in the office Inpatient E&M: 66762 Init Hosp L3
[2020-01-07 11:20] LABS: Bedside Glucose 100 mg/dL (70-110)
--- NOTE | 2020-01-07 11:21 | REHABEVAL_ITS ---
Admission Information Primary Diagnosis:: Physical debility secondary to recent and STEMI, acute diastolic congestive heart failure, acute respiratory failure requiring mechanical ventilation and acute on chronic renal failure. Status Changes from Prescreening?: No changes Identified Actual Problem List:: Mobility Impaired, Know.Dfct/Disease Process, Diabetes, Hyperglycemia, BP, Hypertension, Fluid Overload r/t CHF, Alteration-Leisure Activ. Potential Problem List:: DVT, Bleeding, Infection, UTI, Aspiration, Falls, Skin Integrity, Depression Risk of Complications DVT: CONNOR Guerra, - - He is on anticoagulation chronically with warfarin. Bleeding: Monitor Lab Values, Nursing to Teach Precautions for anti-coagulation therapy., Wound, if applicable, to be assessed every shift., Stroke patients assessed for lethargy or change in status. Infection: Clinical Staff to Monitor for S/S of infection:, S/S of infection include fever, redness, warmth, etc. Urinary Tract Infection: Monitor for frequency, burning, discomfort, or incontinence., Nursing will obtain urine sample for urinalysis and C&S when ordered. Aspiration: Clinical staff will monitor for coughing, drooling, congestion., Speech will evaluate swallowing and dsyphasia., Nursing will monitor patient swallowing during meals. Falls: Patient will be evaluated for Fall Precautions, Patient will be placed on Fall Precautions as indicated per protocol. Skin Breakdown: Nursing will assess skin daily using assessment tool., Nursing will place on Skin Breakdown Precautions as indicated. Pain: Clinical staff will assess patient's pain level per protocol., Medications will be given, if needed, and the pain level reassessed., Other methods: Massage, distraction, decrease stimulus, etc. used PRN. Plan of Care Patient requires physician specializing in physical medicine and rehab oversight to provide close medical supervision of rehab issues including: Pain Management, Sleep Problems, Bowel and Bladder, Medical and co-morbidity Management, DVT prophylaxis, Rehabilitation Leadership, Coordination of treatment team Patient needs Physical Therapy: At least 5 out of 7 days, For a minimum of 1.5 hrs Patient needs Physical Therapy to improve:: Mobility, Mobility, Mobility, Strengthening, Transfers, Stretching, ROM, Endurance, Stairs, Gait, Balance Patient needs Occupational Therapy: For a minimum of 1 hour, At least 5 out of 7 days, For a minimum of 1.5 hrs Patient needs Occupational Therapy to improve ADL's incl.: Eating, Grooming, Bathing, Dressing, Toileting, Toilet transfers, Community Reintegration, Higher functioning activities, Household tasks, Adaptive Equipment, Splinting, Other activities as determined Patient requires 24/7 Rehabilitation Nursing for: Pain Issues, Identifying and preventing risk factors, Monitoring and reporting current medical conditions, Assisting with ambulation, transfer, and all ADL's, Teaching patients about disease process and medications, Family teaching, Providing safe environment, Bowel and Bladder Issues, Skin integrity, Medication Management Patient needs Voice Studies Director/ Case Management for: Discharge Planning, Arranging Home Equipment or Services, Family Interventions Patient needs Dietary and Nutrition Services for: Adequate Nutrition, Nutritional Supplements, Nutritional Education Goals Patient will remain: free from falls, or injury at time of discharge. Patient will perform bed mobility at: MOD I level of assist. Patient will complete transfers from bed to chair at: MOD I level of assist. Patient will ambulate: 100 feet, with MOD I assist, with LRD Patient will complete upper body dressing at: MOD I level of assist. Patient will complete lower body dressing at: MOD I level of assist. Patient will complete toileting at: MOD I level of assist. Patient will perform bathing at: MOD I level of assist. Patient will complete grooming at: MOD I level of assist. Patient will complete home management skills at: MOD I level of assist. Patient will achieve: 12 stairs, at MOD I assist Patient will have pain level of: of 3 or less Patient's skin will: remain intact, free from infection. Patient will receive: adequate nutrition. Discharge Planning Pt Prognosis for Sig. Practical Improv. w/in Reasonable Time: Good Estimated Length of stay (days): 14 Anticipated D/C Destination: Home
[2020-01-07 12:10] LABS: Iron 30 ug/dL (65-175); Iron Binding Capacity,Total 332 ug/dL (250-450)
[2020-01-07 12:42] LABS: Hemoglobin A1c 6.3 % (3.8-5.6)
[2020-01-07 16:55] LABS: Bedside Glucose 146 mg/dL (70-110)
[2020-01-07 19:52] VITALS: BP 136/81; PULSE 71; RESP 20; TEMP 36.4; O2SAT 94
[2020-01-07 21:11] LABS: Bedside Glucose 204 mg/dL (70-110)
[2020-01-07] MEDS: Doxazosin 1 MG Tablet PO (21:14)
[2020-01-07] MEDS: Ipratropium Bromide 0.06% NASAL SPRAY 2 SPRAY NASAL (21:14)
[2020-01-07] MEDS: Atorvastatin Calcium 10 MG Tablet PO (21:15)
[2020-01-07] MEDS: Neuropathy Pain Cream Compound 60 CLICK TUBE TOPICAL (21:16)
[2020-01-07 22:00] VITALS: PULSE 78; RESP 18; O2SAT 94
[2020-01-08] VITALS (7 sets, daily range): BP systolic 139–150; BP diastolic 66–80; PULSE 75–118; RESP 17–18; TEMP 36.3; O2SAT 92–94
[2020-01-08] MEDS: Levothyroxine 75 MCG Tablet PO (05:38)
[2020-01-08 06:10] LABS: Hematocrit 28.4 % (40-54); Hemoglobin 8.9 g/dL (13.0-16.5); Mean Corp Hgb Conc 31.3 g/dL (32-36); Mean Corpuscular Volume 79.8 fL (80-94); Mean Platelet Vol. 9.7 fl (6.2-12.0); Platelet Count 182 K/mm3 (150-450); RBC Distribution Width SD 43.9 fl (35.1-43.9); Red Blood Count 3.56 M/mm3 (4.6-6.2); White Blood Count 5.1 K/mm3 (4.4-11.0)
[2020-01-08 06:26] LABS: Bedside Glucose 122 mg/dL (70-110)
[2020-01-08 06:29] LABS: International Normalized Ratio 2.1; Prothrombin Time (Protime)PT. 23.1 SECONDS (11.7-14.9)
[2020-01-08 06:36] LABS: Anion Gap 9 (5-15); BUN 65 mg/dL (7-18); BUN/Creat Ratio 21.8 RATIO (10-20); Chloride 104 mmol/L (98-107); Creatinine, Serum 2.98 mg/dL (0.70-1.30); EST Glomerular Filtration Rate 22 mL/min (>60); Est Glom Filt Rate - Afr Amer 26 mL/min (>60); Estimated Creatinine Clearance 20.08 ml/min; Glucose 121 mg/dL (74-106); Potassium 4.1 mmol/L (3.5-5.1); Sodium Level 138 mmol/L (136-145)
[2020-01-08] MEDS: Ipratropium Bromide 0.06% NASAL SPRAY 2 SPRAY NASAL ×2 (07:24→07:26)
[2020-01-08] MEDS: Aspirin E.C. 81 MG Tablet PO (07:24)
[2020-01-08] MEDS: Neuropathy Pain Cream Compound 60 CLICK TUBE TOPICAL ×2 (07:25→21:25)
[2020-01-08] MEDS: Clopidogrel Bisulfate 75 MG Tablet PO (07:26)
[2020-01-08] MEDS: Isosorbide Mononitrate 30 MG Tablet PO (07:26)
[2020-01-08] MEDS: amLODIPine 10 MG Tablet PO (07:26)
[2020-01-08] MEDS: Metoprolol(XL)Succ 100 MG Tablet PO (07:27)
[2020-01-08] MEDS: Sodium Bicarbonate 650 MG Tablet PO (07:27)
[2020-01-08 11:55] LABS: Bedside Glucose 116 mg/dL (70-110)
--- NOTE | 2020-01-08 13:41 | PN_ITS ---
Progress Note Afebrile VSS-orthostatics are negative today. Blood pressures have ranged from 136/80 1- 1 50/66 since admission to rehab. Maintaining appropriate oxygen saturation on RA Oral intake is 1870 on 01/07/2020. He is now on a fluid restriction of 1500 cc daily. Weight has increased from 266 pounds and 6 oz on 01/07/2020 to 268 pounds 8 ounces today. Discussed with nursing - no problems that need addressed Reviewed the PT/OT notes. He is ambulating with a SPC today Medication list reviewed. Lasix was held today due to the increase in the creat yesterday. All labs are personally reviewed. Hemoglobin today is 8.9, down from 9.6 on 01/05/2020. MCV is now even lower at 79.8. Blood cell count platelets are within normal limits. The BUN is 65 today and the creatinine is 2.98 which is stable from yesterday. Hemoglobin A1c is 6.3. Phosphorus is mildly increased at 5.0 and stable. Serum iron is low at 30 and the TIBC is 332 with an iron saturation of 9.0. Ferritin was recently 69. INR today is 2.1. He is having some orthopnea when lying flat. It gets better when he sits up. He did not have this prior to the most recent NSTEMI. He states that the Atrovent nasal spray helped a lot with the rhinorrhea. He denies CP. alert and oriented x 3, NAD, no tachypneic and no conversational dyspnea Lungs - rare coarse crackle in the R base. the left base is CTA H - RRR, no gallop appreciated abd - soft and NT he has minimal edema of the ankles GRAYSON wraps are in place.....less edema than yesterday. Impressions 1. iron deficiency anemia 2. suspect mild combined systolic/diastolic CHF. Possibly due to the mildly increased BP in light of recent decrease in EF 3. HTN - not adequately controlled......gabe in a pt with a reduced EF of 40-45% 4. CRF stage 4 with recent acute on CRF due to [place]/CHF and dye for cath 5. chronic anticoagulation with Warfarin Continue fluid restriction. Restart Lasix 40 mg p.o. daily Iron sucrose 100 mg IV today Hemoccult stool Continue Cardura 1 mg p.o. nightly-started on 01/07/2020 Add hydralazine 25 mg p.o. every 4 hours as needed systolic greater than 140 STROKE Vital Signs/Narrative: Vital Signs Temp Pulse Pulse Pulse Pulse Resp BP 01/08/20 12:37 97.4 F L 80 18 150/66 H 01/08/20 11:56 118 H 80 75 01/08/20 09:56 97.4 F L 75 17 144/71 H BP BP BP Pulse Ox 01/08/20 12:37 94 01/08/20 11:56 139/77 H 150/66 H 148/80 H 01/08/20 09:56 92 Inpatient E&M: 92844 Subs Hosp L2
--- NOTE | 2020-01-08 14:30 | RAD_ITS ---
STUDY: X-RAY CHEST REASON FOR EXAM: Male, 79 years old. Difficulty breathing while lying down. History of heart attack. TECHNIQUE: PA and lateral views of the chest. COMPARISON: 12/31/2019. FINDINGS: The NG tube, present on the prior study, is no longer seen. The lungs are well-expanded. Minimal perihilar interstitial prominence. This has markedly improved from previous study There is no demonstrated pleural abnormality. Arm remains enlarged. Normal mediastinum and radu. All central vascular prominence Normal visualized aortic arch and descending thoracic aorta. There are diffuse degenerative changes of the visualized thoracic spine. There is degenerative osteoarthritis of the bilateral shoulders. There is no demonstrated abnormality of the visualized soft tissue structures of the upper abdomen. RAD/Chest PA and Lateral IMPRESSION: Mild pulmonary edema. Electronically Signed: Carl Lantigua DO at 21:02 EDT Tel [phone], Service support ,
[2020-01-08 14:44] LABS: BNP,B-Type NATRIURETIC PEPTIDE 1051.7 pg/mL (0-100)
[2020-01-08] MEDS: Sodium Ferric Gluconat 125 MG in 0.9% Normal Saline 100 ML 110 MG IV (15:15)
[2020-01-08 16:26] LABS: Bedside Glucose 137 mg/dL (70-110)
[2020-01-08] MEDS: Doxazosin 1 MG Tablet PO (21:24)
[2020-01-08] MEDS: Atorvastatin Calcium 10 MG Tablet PO (21:24)
[2020-01-08 21:55] LABS: Bedside Glucose 179 mg/dL (70-110)
[2020-01-08] MEDS: 0.9% Saline Lock 10 ML Syringe IV (23:01)
[2020-01-09] VITALS (7 sets, daily range): BP systolic 143–146; BP diastolic 66–88; PULSE 73–81; RESP 16–18; TEMP 36.4–36.6; O2SAT 90–99
[2020-01-09] MEDS: Levothyroxine 75 MCG Tablet PO (05:26)
[2020-01-09 05:41] LABS: International Normalized Ratio 2.3; Prothrombin Time (Protime)PT. 24.8 SECONDS (11.7-14.9)
[2020-01-09 07:10] LABS: Bedside Glucose 104 mg/dL (70-110)
[2020-01-09] MEDS: Spironolactone 25 MG Tablet PO (08:58)
[2020-01-09] MEDS: Aspirin E.C. 81 MG Tablet PO (08:58)
[2020-01-09] MEDS: Isosorbide Mononitrate 30 MG Tablet PO (08:59)
[2020-01-09] MEDS: amLODIPine 10 MG Tablet PO (09:00)
[2020-01-09] MEDS: Sodium Bicarbonate 650 MG Tablet PO (09:00)
[2020-01-09] MEDS: Neuropathy Pain Cream Compound 60 CLICK TUBE TOPICAL ×2 (09:04→20:43)
[2020-01-09] MEDS: Ipratropium Bromide 0.06% NASAL SPRAY 2 SPRAY NASAL ×2 (09:05→20:42)
[2020-01-09] MEDS: Clopidogrel Bisulfate 75 MG Tablet PO (09:06)
[2020-01-09] MEDS: Furosemide 40 MG Tablet PO ×2 (09:20→19:47)
[2020-01-09] MEDS: Metoprolol(XL)Succ 100 MG Tablet PO (09:28)
[2020-01-09 11:10] LABS: Bedside Glucose 107 mg/dL (70-110)
[2020-01-09] MEDS: 0.9% Saline Lock 10 ML Syringe IV ×2 (16:22→21:56)
[2020-01-09] MEDS: hydrALAZINE 25 MG Tablet PO ×2 (16:55→20:43)
[2020-01-09 17:11] LABS: Bedside Glucose 112 mg/dL (70-110)
--- NOTE | 2020-01-09 18:29 | PCM.PN.BLA ---
Progress Note BP remains mildly elevated with sys > 135 in pt with a reduced EF. Review of the CXR from yesterday shows a R pleural effusion and increased PVC. BNP is > 1,000. He has not had any Hydralazine Lasix was restarted and he has had a good diuresis the yesterday and today. He tells me that his breathing is better today and he did not awake SOB last night. The R knee pain is better with the neuropathic cream...I think this is radicular pain Blood sugars are well controlled with no hypoglycemia. INR is 2.3 today. He tolerated Iron sucrose with no adverse reaction. Alert and oriented X 3 Lungs - rare coarse crackle in the R base HRRR, no gallop appreciated mild ankle edema Impressions 1. iron deficiency anemia 2. suspect mild combined systolic/diastolic CHF. Possibly due to the mildly increased BP in light of recent decrease in EF 3. HTN - not adequately controlled......gabe in a pt with a reduced EF of 40-45% 4. CRF stage 4 with recent acute on CRF due to CO/CHF and dye for cath 5. chronic anticoagulation with Warfarin 6. acute CHF - likely systolic due to reduced EF and diastolic due to HTN and CRF/volume OL Continue Lasix 40 mg daily and give 1 extra dose tonight. Continue Fluid restriction. recheck a BMP in the AM and a Mag. Continue current dose of Warfarin Add Hydralazine 25 mg TID to the current antihypertensive regimen. Continue PT/OT Iron sucrose 200 mg X 3 dises and then start ferrous sulfate + vitamin C STROKE Vital Signs/Narrative: Vital Signs Pulse BP 01/09/20 16:55 73 143/88 H Inpatient E&M: [id number] Subs Hosp L2
[2020-01-09] MEDS: Doxazosin 1 MG Tablet PO (20:42)
[2020-01-09] MEDS: Atorvastatin Calcium 10 MG Tablet PO (20:42)
[2020-01-09 20:56] LABS: Bedside Glucose 189 mg/dL (70-110)
[2020-01-10] VITALS (8 sets, daily range): BP systolic 125–152; BP diastolic 72–93; PULSE 69–82; RESP 16–24; TEMP 36.5–36.7; O2SAT 97–99
--- NOTE | 2020-01-10 02:13 | NURSING ---
Reviewed and agree with PLATE COLORER documentation and charting.
--- NOTE | 2020-01-10 02:31 | NURSING ---
Pt incontinent with urinal use. Staff attempted to assist but pt refused. Urine dribbled onto shorts but pt refused changing to clean shorts. Pt stated that it wasn't much.
--- NOTE | 2020-01-10 03:10 | NURSING ---
pt questioned staff about why his lasix was change from what he took at home which was the following 40mg bid on tuesday, tuesday, tuesday and then 40mg daily on tuesday, , tuesday and tuesday. will inform doctor of pt concern.
[2020-01-10] MEDS: Levothyroxine 75 MCG Tablet PO (05:39)
[2020-01-10] MEDS: hydrALAZINE 25 MG Tablet PO ×3 (05:41→22:06)
[2020-01-10 05:54] LABS: International Normalized Ratio 2.8; Prothrombin Time (Protime)PT. 28.7 SECONDS (11.7-14.9)
[2020-01-10 06:10] LABS: Anion Gap 8 (5-15); BUN 64 mg/dL (7-18); BUN/Creat Ratio 20.5 RATIO (10-20); Calcium,Total 9.2 mg/dL (8.5-10.1); Chloride 104 mmol/L (98-107); Creatinine, Serum 3.12 mg/dL (0.70-1.30); EST Glomerular Filtration Rate 21 mL/min (>60); Est Glom Filt Rate - Afr Amer 25 mL/min (>60); Estimated Creatinine Clearance 19.18 ml/min; Glucose 99 mg/dL (74-106); Magnesium 2.4 mg/dL (1.6-2.6); Sodium Level 137 mmol/L (136-145)
[2020-01-10 07:06] LABS: Bedside Glucose 114 mg/dL (70-110)
[2020-01-10] MEDS: Aspirin E.C. 81 MG Tablet PO (08:31)
[2020-01-10] MEDS: Ipratropium Bromide 0.06% NASAL SPRAY 2 SPRAY NASAL ×2 (08:31→22:05)
[2020-01-10] MEDS: Isosorbide Mononitrate 30 MG Tablet PO (08:31)
[2020-01-10] MEDS: Clopidogrel Bisulfate 75 MG Tablet PO (08:32)
[2020-01-10] MEDS: Sodium Bicarbonate 650 MG Tablet PO (08:32)
[2020-01-10] MEDS: amLODIPine 10 MG Tablet PO (08:32)
[2020-01-10] MEDS: Neuropathy Pain Cream Compound 60 CLICK TUBE TOPICAL (08:32)
[2020-01-10] MEDS: Furosemide 40 MG Tablet PO (08:32)
[2020-01-10] MEDS: Metoprolol(XL)Succ 100 MG Tablet PO (08:32)
--- NOTE | 2020-01-10 08:43 | PCM.PN.BLA ---
Progress Note And he was seen on team rounds today. His Leigh Ann was present for rounds. Afebrile Blood pressure is better this a.m. with the addition of hydralazine 25 mg 3 times daily to his drug regimen. Blood pressure this morning was 132/77. Maintaining appropriate oxygen saturation on RA Oral intake is [] He received a second dose of Lasix 40 mg last evening and the total urine output was 2675 however he took 1920 in for a fluid balance of -755. Overnight he had an additional 1650 out. The weight today is 259.6 lbs. Down from 267 pounds and 10.3 ounces yesterday. Discussed with nursing - no problems that need addressed Reviewed the PT/OT/ST notes Medication list reviewed. Blood sugar record was reviewed. Blood sugars are all less than 200. The blood sugar at at bedtime is in the high 100s. With no SSI at HS the AM BS is 104-114. All lab was personally reviewed. Potassium is 4.0 today with a sodium is 137. Serum bicarb is 25. The BUN is stable at 64 however the creatinine is 3.12, up from 2.98 on 01/07/2020. Magnesium is normal at 2.4. He is c/o not sleeping well at night.....not related to SOB. He denies chest pain, palpitations, orthopnea, nausea/vomiting, cough, abdominal pain today. He is doing very well with PT/OT. He has some SERRANO. Alert and oriented X 3, no apparent distress Lungs-clear to auscultation with no crackles, wheezes or rhonchi today. He is not tachypneic at rest and has no conversational dyspnea. Heart-regular rate and rhythm, no gallop, no rub Abdomen-soft, nontender, nondistended, bowel sounds present Minimal ankle edema. gets a little winded with walking Impressions 1. Debility due to recent SC, CHF, acute respiratory failure 2. Triple vessel CAD - to be managed with aggressive medical therapy 3. Stage 4 CRF......Creat increased with diuresis......I suspect his baseline is no longer going to be around 2.4 and that he will need HD going forward. He is going to follow up with Dr. Howell going forward since he lives in [place] and his automatic glove former is in [place] as well. Dr. Peterson will see him today or tomorrow 4. HTN - not adequately controlled. Continue to adjust the antihypertensives to get the BP down closer to 120/70. discussed with Dr. Boss 5. Ischemic CM with a 40-45% EF 6. Acute CHF - combined systolic and diastolic failure. Resolved. Will keep up with 40 mg Lasix daily. Continue to monitor the weights. continue 1500 CC daily fluid restriction. 7. SERRANO - anginal equivalent? due to uncontrolled BP? Continue to monitor for SOB as the antihypertensives are adjusted. 8. DM II - insulin requirements are much lower that at home Will continue the 1800 calorie diet at home and 2 GM sodium. Both River and Leigh Ann had education with RD today for 60 GM protein, 2 GM sodium, 1800 calorie, carb controlled diet. 9. iron deficiency - continue the iron supplementation Decrease the Lantus at HS to 14 units and schedule 2 units Humalog with supper. DC the SSI Check the BP every 4 hours while awake for the next 3 days Decrease the Warfarin.......INR is up to 2.8 today and has been climbing Recheck lab on Tuesday continue therapy I spent 45 minutes counselling Leigh Ann and River and educating them on why he is SOB and how the kidney and heart work together and dysfunction of 1 affects the other. We discussed the possibility of needing HD going forward. 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 STROKE Vital Signs/Narrative: Vital Signs Pulse BP 01/10/20 08:32 82 01/10/20 05:41 73 132/77 H Inpatient E&M: [id number] Subs Hosp L3
--- NOTE | 2020-01-10 10:06 | CASEMGMT ---
Social Work IDT met with patient and for Team meeting. Discussed patient's progress in therapy. Pt is supervised to SBA for all ADLs, completed 5 steps with 2 HR CGA, ambulating 165 ft with FWW at. Pt not sleeping well. Pt having cardiac issues and kidney function. Physician completing tests and adjusting medications. Explained Medicare approved 10 days with EDC 01/15. Will continue to follow. CORDELIA RoblesW
[2020-01-10 12:16] LABS: Bedside Glucose 105 mg/dL (70-110)
--- NOTE | 2020-01-10 15:54 | PCM.PN.REN ---
Patient Problems: Active and Suspected Problems (Last Reviewed 01/07/20 @ 13:[address] Delfina Carbajal, DO) Hyperphosphatemia (Acute) Ischemic cardiomyopathy (Acute) 40% EF with wall motion abnormalities on cardiac catheterization on 01/03/2020 Iron deficiency anemia (Suspected) Subjective: no new events today - Physical Exam Vitals/I&O's: Vital Signs Temp Pulse Resp BP Pulse Ox 98.1 F 77 16 152/75 H 97 01/10/20 09:26 01/10/20 14:24 01/10/20 09:26 01/10/20 14:24 01/10/20 09:26 Oxygen Delivery Method Room Air Weight: 118 kg Body Mass Index (BMI) 40.5 Orthostatic Vital Signs Start: 01/08/20 11:56 Freq: Status: Active Protocol: Activity Type Activity Date Activity User E-Sign Co-Sign Detail Recorded Client Recorded Date Recorded By Document 01/08/20 11:56 S [id number] 01/08/20 11:57 S 01/08/20 11:56 Orthostatic Vitals Standing -Blood Pressure (90/60-120/80 mm Hg) 148/80 H -Extremity Use Left Arm -Pulse Rate (60-100 beats/min) 75 Sitting -Blood Pressure (90/60-120/80 mm Hg) 150/66 H -Extremity Use Left Arm -Pulse Rate (60-100 beats/min) 80 Lying -Blood Pressure (90/60-120/80 mm Hg) 139/77 H -Extremity Use Left Arm -Pulse Rate (60-100 beats/min) 118 H Intake and Output for Last 24 Hours 01/08/20 01/09/20 01/10/20 23:59 23:59 23:59 Intake Total 1050 / 1050 1920 / 1920 1013 / 1013 Output Total 2250 / 2725 2675 / 2675 2700 / 2700 Balance -1200 / -1675 -755 / -755 -1687 / -1687 General: Alert, Oriented x3, Cooperative HEENT: Atraumatic, PERRLA, EOMI, Normocephalic Neck: Supple, No JVD, Negative Carotid Bruits Lungs: Clear to auscultation, Normal air movement Cardiovascular: Regular rate, No murmurs Abdomen: Bowel Sounds Present, Soft, Non Tender Extremities: No edema, Capillary Refill Less than 3 Seconds Skin: No rashes, No breakdown Musculoskeletal: No Tenderness to Palpation of Joints or Extremities Neurological: Cranial nerves II-XII grossly intact Psych/Mental Status: Normal Affect, Appropriate Microbiology Past 72 Hours 01/08/20 15:00 Stool Stool Occult Blood (JUNIOR) - Final Laboratory Results 01/09/20 16:21: POC Glucose 112 H 01/09/20 20:46: POC Glucose 189 H 01/10/20 05:35: PT 28.7 H, INR 2.8 01/10/20 05:35: Sodium 137, Potassium 4.0, Chloride 104, Carbon Dioxide 25.0, Anion Gap 8, BUN 64 H, Creatinine 3.12 H, Estim Creat Clear Calc 19.18, Est GFR (MDRD) Af Amer 25 L, Est GFR (MDRD) Non-Af 21 L, BUN/Creatinine Ratio 20.5 H, Glucose 99, Calcium 9.2, Magnesium 2.4 01/10/20 07:00: POC Glucose 114 H 01/10/20 12:07: POC Glucose 105 Current Medications Acetaminophen (Tylenol) 650 mg PO Q6H PRN PRN PRN Reason: Pain Score 1-10/10 Amlodipine Besylate (Norvasc) 10 mg PO DAILY [facility] Last Admin: 01/10/20 08:32 Dose: 10 mg Documented by: [facility]) [facility] Last Admin: 01/10/20 08:31 Dose: 81 mg Documented by: Atorvastatin Calcium (Lipitor) 10 mg PO QHS [facility] Last Admin: 01/09/20 20:42 Dose: 10 mg Documented by: Bisacodyl (Dulcolax) 10 mg RECTAL .PRN X 1 PRN PRN Reason: Constipation Clopidogrel Bisulfate (Plavix) 75 mg PO DAILY [facility] Last Admin: 01/10/20 08:32 Dose: 75 mg Documented by: Compound Med (Neuropathy Pain Cream Compound) 0 click TOPICAL BID [facility]; Protocol Last Admin: 01/10/20 08:32 Dose: 2 click Documented by: Dextrose (D50w Syringe) 0 gm IV X1 PRN; Protocol PRN Reason: Hypoglycemia Doxazosin Mesylate (Cardura) 1 mg PO QHS [facility] Last Admin: 01/09/20 20:42 Dose: 1 mg Documented by: Furosemide (Lasix) 40 mg PO DAILY [facility] Last Admin: 01/10/20 08:32 Dose: 40 mg Documented by: Glucagon () 1 mg IM .X1 PRN PRN Reason: Hypoglycemia Hydralazine HCl (Apresoline) 25 mg PO TID [facility] Last Admin: 01/10/20 14:24 Dose: 25 mg Documented by: Ferric Sodium Gluconate Complex 250 mg/ Sodium Chloride 270 mls @ 135 mls/hr IV DAILY [facility] Stop: 01/12/20 11:59 Last Infusion: 01/10/20 13:51 Dose: Infused Documented by: Sodium Chloride () 250 mls @ 15 mls/hr IV PRN PRN PRN Reason: IV flush for iron Insulin Glargine (Lantus ([facility])) 14 units SC QHS [facility] Insulin Human Lispro (Humalog Kwikpen ([facility])) 2 unit SC DAILY@1730 [facility] Ipratropium Saxon (Atrovent Nasal [place] (G)) 2 spray NASAL BID [facility] Last Admin: 01/10/20 08:31 Dose: 2 spray Documented by: Isosorbide Mononitrate (Imdur) 30 mg PO DAILY [facility] Last Admin: 01/10/20 08:31 Dose: 30 mg Documented by: Levothyroxine Sodium (Synthroid) 75 mcg PO DAILY@0600 [facility] Last Admin: 01/10/20 05:39 Dose: 75 mcg Documented by: Magnesium Hydroxide (Milk Of Magnesia) 30 ml PO .PRN X 1 PRN PRN Reason: Constipation Metoprolol Succinate (Toprol Xl ([place])) 100 mg PO DAILY [facility] Last Admin: 01/10/20 08:32 Dose: 100 mg Documented by: Nitroglycerin (Nitrostat) 0.4 mg SUBLINGUAL Q5M PRN PRN Reason: CHEST Sodium Bicarbonate (Sodium Bicarbonate) 650 mg PO DAILY [facility] Last Admin: 01/10/20 08:32 Dose: 650 mg Documented by: Sodium Chloride () 10 - 40 ml IV UD PRN PRN Reason: SALINE FLUSH Last Admin: 01/09/20 21:56 Dose: 10 ml Documented by: Spironolactone (Aldactone) 25 mg PO MoWeFr@0800 [facility] Last Admin: 01/09/20 08:58 Dose: 25 mg Documented by: Warfarin Sodium (Jantoven) 5 mg PO SuMoWeFrSa@1700 [facility] Warfarin Sodium (Coumadin (Pbkc)) 7.5 mg PO TuTh@1700 [facility] Medical Necessity - Tobacco Use Smoking Status: Former smoker - Quit in 1977 Tobacco Use: Cigarettes Assessment/Plan All Active Problems (Last Reviewed 01/07/20 @ 13:[address] Delfina Carbajal, DO) Hyperphosphatemia (Acute) Ischemic cardiomyopathy (Acute) Acute respiratory failure with hypoxia and hypercapnia (Resolved) Acute [id number]-[id number] myocardial infarction (Acute 12/31/19) Pulmonary edema (Acute) CHF (congestive heart failure) (Resolved) CKD 4 CHF recent admission at [facility] with AL, fluid overload on exam today, looks ok. lungs are clear. some LE edema. BP is close to goal. explained about daily weights, lasix adjustment etc at home will arrange follow up as outpatient after dc
[2020-01-10] MEDS: Insulin Lispro 100 UNIT/ML INSULN.PEN SC (16:59)
[2020-01-10 17:26] LABS: Bedside Glucose 120 mg/dL (70-110)
[2020-01-10 21:51] LABS: Bedside Glucose 166 mg/dL (70-110)
[2020-01-10] MEDS: 0.9% Saline Lock 10 ML Syringe IV (22:03)
[2020-01-10] MEDS: Atorvastatin Calcium 10 MG Tablet PO (22:03)
[2020-01-10] MEDS: Doxazosin 1 MG Tablet PO (22:05)
[2020-01-11] VITALS (10 sets, daily range): BP systolic 126–133; BP diastolic 67–76; PULSE 66–79; RESP 16–18; TEMP 36.4–36.8; O2SAT 94–99
[2020-01-11 06:06] LABS: Bedside Glucose 81 mg/dL (70-110)
[2020-01-11] MEDS: Levothyroxine 75 MCG Tablet PO (06:45)
[2020-01-11] MEDS: hydrALAZINE 25 MG Tablet PO (06:45)
[2020-01-11] MEDS: Aspirin E.C. 81 MG Tablet PO (07:35)
[2020-01-11] MEDS: amLODIPine 10 MG Tablet PO (07:35)
[2020-01-11] MEDS: Isosorbide Mononitrate 30 MG Tablet PO (07:35)
[2020-01-11] MEDS: Metoprolol(XL)Succ 100 MG Tablet PO (07:36)
[2020-01-11] MEDS: Sodium Bicarbonate 650 MG Tablet PO (07:36)
[2020-01-11] MEDS: Clopidogrel Bisulfate 75 MG Tablet PO (07:36)
[2020-01-11] MEDS: Furosemide 40 MG Tablet PO (07:36)
[2020-01-11] MEDS: Spironolactone 25 MG Tablet PO (07:37)
[2020-01-11] MEDS: Ipratropium Bromide 0.06% NASAL SPRAY 2 SPRAY NASAL ×2 (07:39→20:58)
--- NOTE | 2020-01-11 09:56 | PCM.PN.BLA ---
Progress Note Afebrile VSS -blood pressure has improved with initiation of hydralazine 3 times daily. Blood pressure this morning is 133/69. Goal is to have it around 120/70. Maintaining appropriate oxygen saturation on RA Oral intake is good Weight today is 258 pounds and 3 ounces. Weight on 01/10/2020 was 260 pounds and 2 ounces. Discussed with nursing - no problems that need addressed Reviewed the PT/OT/ST notes Medication list reviewed. Blood sugar record was reviewed. FBS was [address] Howell's note from yesterday. He will follow-up with River as an outpatient. River is c/o some SERRANO...no orthopnea now ALert, NAD Lungs - CTA, no wheezing and no crackles H - regular no rub and no gallop abd - soft, NT stable ankle edema - mild. calves and the posterior thighs have no edema no rashes and no breaKDOWN Impressions 1. Debility secondary to recent [place], congestive heart failure and respiratory failure. Progressing very well in therapy. On Tuesday he did the NuStep for 32 minutes on his own. 2. Stage IV/5 chronic renal failure - good urine OP. Not in CHF but, Creat is increasing. Very fine line between fluid overload/CHF and dehydration/increasing CREAT. Still with SERRANO....due to CAD? vs mild CHF? 3. HTN - not adequately controlled. Goal is around 120/70 4. DM II - well controlled with Lantus at HS and an 1800 calorie diet. BMP, CBC, phosphorus, PT/INR Tuesday Increase the Hydralazine to 50 mg TID STROKE Vital Signs/Narrative: Vital Signs Pulse BP Pulse Ox 01/11/20 07:36 79 01/11/20 07:29 97 01/11/20 06:45 79 133/69 H Inpatient E&M: [id number] Subs Hosp L2
[2020-01-11] MEDS: Neuropathy Pain Cream Compound 60 CLICK TUBE TOPICAL (11:19)
[2020-01-11] MEDS: 0.9% Saline Lock 10 ML Syringe IV (11:19)
[2020-01-11 11:25] LABS: Bedside Glucose 109 mg/dL (70-110)
[2020-01-11] MEDS: hydrALAZINE 50 MG Tablet PO ×2 (14:49→20:58)
--- NOTE | 2020-01-11 15:00 | NURSING ---
Refused flu vaccine when offered.
--- NOTE | 2020-01-11 18:16 | NURSING ---
Patient had a good day and did well in therapy. Denies sob and none noted by this nurse.
[2020-01-11] MEDS: Doxazosin 1 MG Tablet PO (20:58)
[2020-01-11] MEDS: Atorvastatin Calcium 10 MG Tablet PO (20:59)
[2020-01-11 21:15] LABS: Bedside Glucose 183 mg/dL (70-110)
[2020-01-12] VITALS (12 sets, daily range): BP systolic 115–142; BP diastolic 57–73; PULSE 62–70; RESP 16–18; TEMP 36.4–36.6; O2SAT 97–98
[2020-01-12] MEDS: Levothyroxine 75 MCG Tablet PO (06:05)
[2020-01-12] MEDS: hydrALAZINE 50 MG Tablet PO ×3 (06:05→22:59)
[2020-01-12 06:50] LABS: Bedside Glucose 113 mg/dL (70-110)
[2020-01-12 07:07] LABS: Hematocrit 30.3 % (40-54); Hemoglobin 9.2 g/dL (13.0-16.5); Mean Corp Hgb Conc 30.4 g/dL (32-36); Mean Corpuscular Hgb 24.5 pg (27.0-32.0); Mean Corpuscular Volume 80.8 fL (80-94); Mean Platelet Vol. 10.6 fl (6.2-12.0); Platelet Count 233 K/mm3 (150-450); RBC Distribution Width CV 15.6 % (11.6-14.6); RBC Distribution Width SD 45.1 fl (35.1-43.9); Red Blood Count 3.75 M/mm3 (4.6-6.2); White Blood Count 5.3 K/mm3 (4.4-11.0)
[2020-01-12] MEDS: Sodium Bicarbonate 650 MG Tablet PO (07:25)
[2020-01-12] MEDS: Furosemide 40 MG Tablet PO (07:25)
[2020-01-12] MEDS: Clopidogrel Bisulfate 75 MG Tablet PO (07:25)
[2020-01-12] MEDS: Metoprolol(XL)Succ 100 MG Tablet PO (07:25)
[2020-01-12] MEDS: amLODIPine 10 MG Tablet PO (07:25)
[2020-01-12] MEDS: Isosorbide Mononitrate 30 MG Tablet PO (07:25)
[2020-01-12] MEDS: Ipratropium Bromide 0.06% NASAL SPRAY 2 SPRAY NASAL (07:26)
[2020-01-12] MEDS: Aspirin E.C. 81 MG Tablet PO (07:26)
[2020-01-12 07:30] LABS: Anion Gap 7 (5-15); BUN 60 mg/dL (7-18); BUN/Creat Ratio 17.9 RATIO (10-20); Calcium,Total 9.2 mg/dL (8.5-10.1); Chloride 109 mmol/L (98-107); Creatinine, Serum 3.35 mg/dL (0.70-1.30); EST Glomerular Filtration Rate 19 mL/min (>60); Est Glom Filt Rate - Afr Amer 23 mL/min (>60); Estimated Creatinine Clearance 17.87 ml/min; Glucose 109 mg/dL (74-106); International Normalized Ratio 3.2; Phosphorus 5.3 mg/dL (2.5-4.9); Potassium 4.1 mmol/L (3.5-5.1); Prothrombin Time (Protime)PT. 32.8 SECONDS (11.7-14.9); Sodium Level 141 mmol/L (136-145)
--- NOTE | 2020-01-12 09:52 | PCM.PN.BLA ---
Progress Note BP is coming under good control Good urine OP Denies lightheadedness All lab was personally reviewed. The INR is 3.2 today. No bleeding. HH is stable. Creat is increased at 3.3 today but the BUN is stable at 60. Phos is mildly increased at 5.3. Lungs - CTA HRRR minimal ankle edema no large areas of bruising and no rashes GRAYSON wraps are in place Impressions 1. debility - making excellent progress in therapy 2. CAD - S/P AZ. Triple vessel disease. Aggressive medical management 3. CHF - Systolic and diastolic. Better. 4. Stage 4 CRF, bordering on stage 5. 5. AF on Warfarin. would like to keep the INR between 2.4 and 3 Hold the Lasix today. Hold the Coumadin today and change the dose to 5 mg daily Recheck BMP, Phos and PT/INR on Tuesday. Anticipate DC early next week and he will follow up with Dr. Boss and Dr. Howell soon after DC STROKE Vital Signs/Narrative: Vital Signs Temp Pulse Resp BP Pulse Ox 01/12/20 07:45 97.5 F L 16 98 01/12/20 07:25 70 01/12/20 07:16 97 01/12/20 06:05 63 01/12/20 06:00 63 128/72 H Inpatient E&M: [id number] Subs Hosp L2
[2020-01-12] MEDS: 0.9% Saline Lock 10 ML Syringe IV ×2 (10:21→22:55)
[2020-01-12 22:21] LABS: Bedside Glucose 167 mg/dL (70-110)
[2020-01-12] MEDS: Atorvastatin Calcium 10 MG Tablet PO (22:58)
[2020-01-12] MEDS: Doxazosin 1 MG Tablet PO (22:59)
[2020-01-13] VITALS (8 sets, daily range): BP systolic 122–134; BP diastolic 65–78; PULSE 64–79; RESP 16–18; TEMP 36.4–36.8; O2SAT 97–99
[2020-01-13 06:21] LABS: Bedside Glucose 82 mg/dL (70-110)
[2020-01-13] MEDS: hydrALAZINE 50 MG Tablet PO ×3 (06:43→21:20)
[2020-01-13] MEDS: Levothyroxine 75 MCG Tablet PO (06:43)
[2020-01-13] MEDS: Aspirin E.C. 81 MG Tablet PO (08:13)
[2020-01-13] MEDS: Metoprolol(XL)Succ 100 MG Tablet PO (08:13)
[2020-01-13] MEDS: Clopidogrel Bisulfate 75 MG Tablet PO (08:13)
[2020-01-13] MEDS: Ipratropium Bromide 0.06% NASAL SPRAY 2 SPRAY NASAL ×2 (08:13→21:19)
[2020-01-13] MEDS: Sodium Bicarbonate 650 MG Tablet PO (08:14)
[2020-01-13] MEDS: amLODIPine 10 MG Tablet PO (08:14)
[2020-01-13] MEDS: Isosorbide Mononitrate 30 MG Tablet PO (08:14)
[2020-01-13 20:26] LABS: Bedside Glucose 203 mg/dL (70-110)
[2020-01-13] MEDS: Atorvastatin Calcium 10 MG Tablet PO (21:18)
[2020-01-13] MEDS: Doxazosin 1 MG Tablet PO (21:19)
[2020-01-14] VITALS (7 sets, daily range): BP systolic 132–151; BP diastolic 52–74; PULSE 60–78; RESP 16; O2SAT 94–97
[2020-01-14 05:53] LABS: International Normalized Ratio 2.9; Prothrombin Time (Protime)PT. 29.8 SECONDS (11.7-14.9)
[2020-01-14 05:58] LABS: Anion Gap 7 (5-15); BUN 57 mg/dL (7-18); BUN/Creat Ratio 16.4 RATIO (10-20); Calcium,Total 9.1 mg/dL (8.5-10.1); Chloride 109 mmol/L (98-107); Creatinine, Serum 3.48 mg/dL (0.70-1.30); EST Glomerular Filtration Rate 18 mL/min (>60); Est Glom Filt Rate - Afr Amer 22 mL/min (>60); Glucose 105 mg/dL (74-106); Phosphorus 5.3 mg/dL (2.5-4.9); Potassium 4.2 mmol/L (3.5-5.1); Sodium Level 140 mmol/L (136-145)
[2020-01-14 06:25] LABS: Bedside Glucose 112 mg/dL (70-110)
[2020-01-14] MEDS: hydrALAZINE 50 MG Tablet PO ×3 (07:01→21:13)
[2020-01-14] MEDS: Levothyroxine 75 MCG Tablet PO (07:01)
[2020-01-14] MEDS: Aspirin E.C. 81 MG Tablet PO (07:43)
[2020-01-14] MEDS: amLODIPine 10 MG Tablet PO (07:43)
[2020-01-14] MEDS: Isosorbide Mononitrate 30 MG Tablet PO (07:44)
[2020-01-14] MEDS: Sodium Bicarbonate 650 MG Tablet PO (07:44)
[2020-01-14] MEDS: Metoprolol(XL)Succ 100 MG Tablet PO (07:44)
[2020-01-14] MEDS: Clopidogrel Bisulfate 75 MG Tablet PO (07:44)
[2020-01-14] MEDS: Ipratropium Bromide 0.06% NASAL SPRAY 2 SPRAY NASAL ×2 (07:45→21:06)
[2020-01-14] MEDS: Spironolactone 25 MG Tablet PO (11:07)
--- NOTE | 2020-01-14 11:13 | PCM.PN.BLA ---
Progress Note Afebrile VSS: Blood pressures for the preceding 24 hours have ranged from 122/65-132/74 (this morning). Maintaining appropriate oxygen saturation on RA Oral intake is - he is on a fluid restriction of 1550 and the oral intake on 01/12 was 2350. Weight record was reviewed. Weight had been stable at approximately 258 pounds and 3 ounces and since the Lasix was held on 01/13/2020 the weight today is up to 64 pounds and 9 ounces? The fluid balance yesterday was +1350 which should have put him up only approximately 3 pounds, not 6 and 1/2 lbs? Discussed with nursing - no problems that need addressed Reviewed the PT/OT notes Medication list reviewed. He is getting 40 mg of Lasix daily and Aldactone on MWF. Lasix was held on 01/12 and he had increased fluid intake and the creat is 3.48 today? BUN is 57. Potassium is within normal limits today at 4.2. INR is therapeutic at 2.9. Phosphorus is stable at 5.3. Blood sugar record was reviewed. Blood sugar last night was 203 but all other blood sugars for the past several days have been less than 200. No hypoglycemia. Denies lightheadedness. Denies orthopnea and also denies dyspnea on exertion. Exercise tolerance is improving and he did the NuStep yesterday for 32 minutes without significant shortness of breath. Alert, oriented x3, no apparent distress, sitting in the recliner at the bedside. Lungs-clear to auscultation with excellent air exchange. No conversational dyspnea, not tachypneic at rest and no accessory muscle use. He was observed ambulating and he is no longer tachypneic with exertion. Heart-irregular irregular with controlled ventricular response, no pericardial friction rub, no gallop Abdomen-soft, nontender Edema is limited to the ankles bilaterally and Rodríguez wraps are in place. No focal neurologic deficits Impressions 1. Acute renal failure on chronic renal failure stage IV-difficult to manage fluids/diuretics in light of congestive heart failure in association with increasing creatinine. I discussed with Dr. Howell on the phone and will hold Lasix today. Going forward will manage Lasix based on what his weight is and if his weight goes up 2 to 3 pounds he will take Lasix that day. He has a scale at home. 2. acute on CRF stage 4. Likely due to decreased IV volume 3. Acute combined CHF - resolved. 4. Hyperphosphatemia - stable 5. triple vessel CAD 6. HTN better - will continue current drug regimen. Plan DC for tomorrow. He has an appt with Dr. Howell on 01/28, He will follow up with Dr. Boss and with Dr. Treviño after DC Will have the patient measure urine OP at home and keep track and will also have him continue the 1500 cc fluid restriction. I stressed to him the importance of keeping the salt restriction to 2 GM or less daily CODE STATUS: Discussed palliative care at length with River including the difference between palliative care and hospice. Palliative care helps to keep pt's with chronic medical conditions like CHF, COPD, CRF out of the hospital. All questions were answered. A total of 20 minutes face to face time was devoted to advanced care planning. River would like to meet with palliative once he is discharged home. D/W SW and she will arrange for this. STROKE Vital Signs/Narrative: Vital Signs Pulse Pulse Ox 01/14/20 07:44 60 01/14/20 07:22 94 Inpatient E&M: [id number] Subs Hosp L3
--- NOTE | 2020-01-14 13:16 | CASEMGMT ---
Addendum entered by Lizz Smith 01/15/20 11:48: Patient requesting to DC 01/14. IDT agreeable. Original Note: Social Work Met with patient to discuss DC plans. Pt to DC home 01/15 with with [facility], no DME needs. Pt agreed to Palliative medicine. Referral made to [facility] and [facility]. Lizz Smith, CORDELIA PETERSONW
--- NOTE | 2020-01-14 14:40 | NURSING ---
SL to rt AC discontinued at this time, catheter intact upon removal, pt tolerated well.
[2020-01-14] MEDS: Doxazosin 1 MG Tablet PO (21:14)
[2020-01-14] MEDS: Atorvastatin Calcium 10 MG Tablet PO (21:14)
[2020-01-14 21:50] LABS: Bedside Glucose 160 mg/dL (70-110)
[2020-01-15 05:48] VITALS: BP 126/66; PULSE 66
[2020-01-15] MEDS: hydrALAZINE 50 MG Tablet PO (05:48)
[2020-01-15] MEDS: Levothyroxine 75 MCG Tablet PO (05:49)
[2020-01-15 05:53] LABS: International Normalized Ratio 2.4; Prothrombin Time (Protime)PT. 25.3 SECONDS (11.7-14.9)
[2020-01-15 05:57] LABS: Anion Gap 6 (5-15); BUN 61 mg/dL (7-18); BUN/Creat Ratio 17.7 RATIO (10-20); Calcium,Total 9.1 mg/dL (8.5-10.1); Chloride 108 mmol/L (98-107); Creatinine, Serum 3.45 mg/dL (0.70-1.30); EST Glomerular Filtration Rate 18 mL/min (>60); Est Glom Filt Rate - Afr Amer 22 mL/min (>60); Estimated Creatinine Clearance 17.35 ml/min; Glucose 96 mg/dL (74-106); Potassium 4.5 mmol/L (3.5-5.1); Sodium Level 138 mmol/L (136-145)
[2020-01-15 06:51] LABS: Bedside Glucose 105 mg/dL (70-110)
[2020-01-15 07:10] VITALS: O2SAT 95
[2020-01-15 07:46] VITALS: BP 128/66; PULSE 66; RESP 16; TEMP 36.4; O2SAT 97
[2020-01-15 08:39] VITALS: BP 128/66; PULSE 66
[2020-01-15] MEDS: Aspirin E.C. 81 MG Tablet PO (08:39)
[2020-01-15] MEDS: Clopidogrel Bisulfate 75 MG Tablet PO (08:39)
[2020-01-15] MEDS: Metoprolol(XL)Succ 100 MG Tablet PO (08:39)
[2020-01-15] MEDS: Ipratropium Bromide 0.06% NASAL SPRAY 2 SPRAY NASAL (08:39)
[2020-01-15] MEDS: Isosorbide Mononitrate 30 MG Tablet PO (08:39)
[2020-01-15] MEDS: amLODIPine 10 MG Tablet PO (08:39)
[2020-01-15] MEDS: Sodium Bicarbonate 650 MG Tablet PO (08:39)
--- NOTE | 2020-01-15 10:05 | PCM.DC ---
- Discharge Diagnoses Current Active Problems: Current Active and Chronic Problems (Last Reviewed 01/07/20 @ 13:[address] Delfina Carbajal, DO) Chronic renal failure, stage 4 (severe) (Chronic) Hyperphosphatemia (Acute) Ischemic cardiomyopathy (Acute) 40% EF with wall motion abnormalities on cardiac catheterization on 01/03/2020 Left atrial enlargement (Chronic) Morbid obesity (Chronic) ANKIT (obstructive sleep apnea) (Chronic) You will use the following diet at home:: Calorie/Carbohydrate Controlled (specify 1200, 1400, etc) - 1800 calorie diet with 60 GM of protein and 1500 cc fluid restriction daily. 2 GM sodium (salt), Fluid restricted (specify 2000 mls, 1500 mls) - 1500 daily, Renal (restricted protein/sodium) - 60 GM protein and 2 GM sodium Your food should be the consistency of: Regular Your liquids should be the consistency of: Regular/Thin Discharge Activity: - - OK to walk and use the Nu-Step. You will be following up with cardiac rehab soon. Do NOT push yourself. If you are getting short of breath while exercising stop and rest. No hills if walking. Do not lift more than 10 pounds. May resume sexual activity in: 10-14 days Weight Bearing Status: Full weight bearing Lifting Restrictions: no more than 10 pounds Keep extremity elevated above heart level: Legs - when sitting in a chair to help control swelling. Applying the GRAYSON wraps to the legs as soon as you get up in the morning and keepiong them on until you go to bed will also help with the swelling. Call your doctor if you observe: Fever of 101 or Higher, Inability to urinate, Shortness of breath, Dizziness, Fainting spells, Swelling in the ankles, Chest pain, Increased palpitations (irregular heartbeat), Uncontrolled pain, - - Call your family doctor if any unusual bleeding such as bleeding from the gums, blood from the anus, blood in the urine, nose bleeds, large bruises or bleeding from the vagina if female. Instructions: Creating a Hemodialysis Access Additional Instructions: 1. 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 The heart attack damaged your heart and now when the heart contracts it squeezes 40-45% of the blood out......normal is 55-65%. Because of this we need to decrease the work the heart has to do. In order to do this we have to keep very good control of the blood pressure and the heart rate. I would like your blood pressure to be around 120/70. I have added 2 blood pressure pills. Cardura you take at bedtime.....this also helps with prostate. Hydralazine you need to take 3 times a day. The Metoprolol controls the heart rate. We also have to avoid overloading the heart with too much fluid or the fluid will back up into the lungs and put you into heart failure. This becomes very difficult when you also have kidney disease. Too much fluid and you are in heart failure and too little fluid and the kidneys fail more. We are going to determine when you take Lasix according to the weight in the morning. Weigh yourself every morning after urinating with no clothes on and keep a record of the weights. If your weight goes up by 2-3 pounds from 1 day to the next take a Lasix that day and take Lasix daily until you are back to your baseline. If your weight continues to increase call Dr. Howell for instructions. If you gain more than 5 lbs in a week call Dr. Howell. If you are able [place] keep track of how much fluid you take in and how much urine you put out daily. 2. It will be better for your heart if you can lose more weight. You have done a great job so far. Keep up the good work!!! You can follow up with the dieticians outpatient weight management program called [facility]. All you need is a referral from Dr. Treviño. Keep up with the exercise........that really helps the heart to function optimally. 3. I have given you a lab requisition to obtain a renal profile on January 20. Please call me Tuesday and I will go over the results with you. 4. IT has been an absolute pleasure to meet you and Leigh Ann! I admire your ability to work hard to take care of yourself and do the right thing. The diabetes is under good control and you are being discharged on 1 shot of a long acting insulin called Lantus at bedtime. You will take 14 units at bedtime daily. The BP now looks good and it was 128/66 on the morning of your discharge. Your heart rate has been in the 60s to 80s range. Your cholesterol is good. Keep up the good work [facility]!! If you have any questions or there is anything I can help you with please do not hesitate to call. My office number is [phone] and my cell is [phone]. 5. Call me in the morning and let me know your weight these. We can then decide at what weight you would need to take a Lasix. PS.......you are iron deficient. It is not uncommon for people who chronically take Warfarin to lose some blood in the stool chronically. We gave you IV iron in the hospital and I am sending you home on an iron supplement that you will take once a day. It needs to be taken with food so take it at lunchtime. Iron can cause constipation and if this happens you can use sugar free Metamucil or Citracel to help. Pending Tests on Discharge: none Allergies/Adverse Reactions: Allergies Penicillins Adverse Reaction (Severe, Verified 12/30/19 20:27) Swelling Medications to take at Discharge Aspirin [Adult Low Dose Aspirin EC] 81 mg PO DAILY 07/17/15 Nitroglycerin (INPATIENT USE) [Nitrostat] 0.4 mg SUBLINGUAL Q5M PRN 07/17/15 sodium bicarbonate 650 mg tablet 650 mg PO .q day tab 07/29/17 blood sugar diagnostic 1 applic MISCELL. .MEDSUPPLY #20 ea 08/18/17 levothyroxine 75 mcg tablet 75 mcg PO DAILY 09/14/19 clopidogrel 75 mg tablet 75 mg PO DAILY 12/20/19 Isosorbide Mononitrate [Isosorbide Mononitrate ER] 30 mg PO DAILY 12/30/19 Spironolactone 25 mg PO MOWEFR 12/30/19 Amlodipine Besylate [Norvasc] 10 mg PO QDAY 01/06/20 Lovastatin 40 mg PO QHS 01/06/20 Metoprolol Succinate [Toprol Xl] 100 mg PO DAILY 01/06/20 Acetaminophen [Tylenol Tablet] 650 mg PO Q6H PRN PRN tablet 01/15/20 Doxazosin Mesylate [Cardura] 1 mg PO QHS #30 tab 01/15/20 Furosemide [Lasix] 40 mg PO DAILY PRN #30 tab 01/15/20 Insulin Glargine [Lantus SoloStar Pen] 14 units SUBCUT QHS #2 pen 01/15/20 Ipratropium Kingsley 0.06% [ATROVENT NASAL SPRAY] 2 spray NASAL BID #1 bottle 01/15/20 Neuropathy Pain Cream Compound 0 click TOPICAL BID gm 01/15/20 Warfarin [Coumadin] 5 mg PO SuMoWeThFr@1700 tablet 01/15/20 Warfarin [Coumadin] 7.5 mg PO TuSa@1700 tablet 01/15/20 hydrALAZINE [Apresoline] 50 mg PO TID #90 tab 01/15/20 The following prescriptions were given: hydrALAZINE [Apresoline] 50 mg PO TID #90 tab Transmission Status: Pending to [id number] Ipratropium Kingsley 0.06% [ATROVENT NASAL SPRAY] 2 spray NASAL BID #1 bottle Transmission Status: Pending to [id number] Doxazosin Mesylate [Cardura] 1 mg PO QHS #30 tab Transmission Status: Pending to [id number] Insulin Glargine [Lantus SoloStar Pen] 14 units SUBCUT QHS #2 pen Transmission Status: Pending to [id number] Furosemide [Lasix] 40 mg PO DAILY PRN #30 tab PRN Reason: increase in weight Transmission Status: Pending to [id number] Orders to be completed after discharge: Renal Profile Time Frame: 01/21/20, Facility: [facility], Location: Laboratory Primary Care Physician: Masha Treviño MD [Primary Care Provider] - Please follow up with your Primary Care Physician in: 1 week Test Results: Test results from this visit will be discussed in further detail at your follow-up appointment, if applicable. Please Follow Up With: Dr. Dyllan Howell, Nephrology When: Tuesday Please Follow Up With: Russ Boss MD Please Follow Up With: Olivia Proposed Discharge Date: 01/15/20
[2020-01-15 11:00] VITALS: BP 128/66; PULSE 66; RESP 16; TEMP 36.4; O2SAT 97
--- NOTE | 2020-01-15 11:01 | PCM.DC.SUM ---
Discharge Date and Diagnosis - Problem List Patient Problems: Active and Suspected Problems (Last Reviewed 01/07/20 @ 13:[address] Delfina Carbajal DO) Debility (Acute) Awali-al-rtweoxy renal failure (Acute) Date of Admission: 01/06/20 Date of Discharge: 01/15/20 - Primary Discharge Diagnosis Acute Problems: Active Problems (Last Reviewed 01/07/20 @ 13:[address] Delfina Carbajal DO) Debility due to NSTEMI, acute congestive heart failure and acute respiratory failure requiring intubation (Acute) Iescm-vd-yuitwdk renal failure stage IV (Acute) NSTEMI on or around 12/30/19 Acute combined CHF - resolved Iron deficiency anemia with an iron saturation of only 9% Hyperphosphatemia - Secondary Discharge Diagnosis Chronic Problems: Chronic Problems (Last Reviewed 01/07/20 @ 13:[address] Delfina Carbajal DO) Diabetic neuropathy associated with type 2 diabetes mellitus (Chronic) Chronic renal failure, stage 4 (severe) (Chronic) Ischemic cardiomyopathy (Chronic) 40% EF with wall motion abnormalities on cardiac catheterization on 01/03/2020. 45% on ECHO. 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 Longstanding persistent atrial fibrillation (Chronic) History of coronary artery stent placement (Chronic 06/03/15) BMS to Mid RCA w/ 3.5 x 24 mm [employer] Stent 04/03/2003; BMS to Distal RCA w/ 3.0 x 18 mm [employer] Stent 06/04/2004; POBA-ISR Prox and Distal RCA 06/03/15 Essential (primary) hypertension (Chronic) Hyperlipidemia (Chronic) 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 Electronically Signed: Carl Lantigua DO at 21:02 EDT Tel [phone], Service support , Laboratory Last Values WBC 5.3 K/mm3 (4.4-11.0) 01/12/20 06:38 RBC 3.75 M/mm3 (4.6-6.2) L 01/12/20 06:38 Hgb 9.2 g/dL (13.0-16.5) L 01/12/20 06:38 Hct 30.3 % (40-54) L 01/12/20 06:38 MCV 80.8 fL (80-94) 01/12/20 06:38 MCH 24.5 pg (27.0-32.0) L 01/12/20 06:38 MCHC 30.4 g/dL (32-36) L 01/12/20 06:38 RDW Std Deviation 45.1 fl (35.1-43.9) H 01/12/20 06:38 RDW Coeff of Moni 15.6 % (11.6-14.6) H 01/12/20 06:38 Plt Count 233 K/mm3 (150-450) 01/12/20 06:38 MPV 10.6 fl (6.2-12.0) 01/12/20 06:38 PT 25.3 SECONDS (11.7-14.9) H 01/15/20 05:35 INR 2.4 01/15/20 05:35 Sodium 138 mmol/L (136-145) 01/15/20 05:35 Potassium 4.5 mmol/L (3.5-5.1) 01/15/20 05:35 Chloride 108 mmol/L (98-107) H 01/15/20 05:35 Carbon Dioxide 24.0 mmol/L (21.0-32.0) 01/15/20 05:35 Anion Gap 6 (5-15) 01/15/20 05:35 BUN 61 mg/dL (7-18) H 01/15/20 05:35 Creatinine 3.45 mg/dL (0.70-1.30) H 01/15/20 05:35 Estim Creat Clear Calc 17.35 ml/min 01/15/20 05:35 Est GFR (MDRD) Af Amer 22 mL/min (>60) L 01/15/20 05:35 Est GFR (MDRD) Non-Af 18 mL/min (>60) L 01/15/20 05:35 BUN/Creatinine Ratio 17.7 RATIO (10-20) 01/15/20 05:35 Glucose 96 mg/dL (74-106) 01/15/20 05:35 Hemoglobin A1c 6.3 % (3.8-5.6) H 01/07/20 05:30 Calcium 9.1 mg/dL (8.5-10.1) 01/15/20 05:35 Phosphorus 5.3 mg/dL (2.5-4.9) H 01/14/20 05:27 Magnesium 2.4 mg/dL (1.6-2.6) 01/10/20 05:35 Iron 30 ug/dL (65-175) L 01/07/20 05:30 TIBC 332 ug/dL (250-450) 01/07/20 05:30 Iron Saturation 9.0 % (15.0-55.0) L 01/07/20 05:30 Total Bilirubin 0.70 mg/dL (0.20-1.00) 01/07/20 05:30 AST 21 U/L (15-37) 01/07/20 05:30 ALT 23 U/L (16-61) 01/07/20 05:30 Alkaline Phosphatase 97 U/L (45-117) 01/07/20 05:30 B-Natriuretic Peptide 1051.7 pg/mL (0-100) H 01/08/20 06:04 Total Protein 6.7 g/dL (6.4-8.2) 01/07/20 05:30 Albumin 2.7 g/dL (3.2-5.0) L 01/07/20 05:30 Globulin 4.0 g/dL (2.2-4.2) 01/07/20 05:30 Albumin/Globulin Ratio 0.7 RATIO (0.9-2.4) L 01/07/20 05:30 POC Glucose 105 mg/dL (70-110) 01/15/20 06:47 Microbiology 01/08/20 15:00 Stool Stool Occult Blood (JUNIOR) - Final negative none Operations: None Procedures: Cardiac catheterization - 01/03/[address] Boss. 40% EF with anterior hypokinesis. Left main with mild calcification. Mid LAD with diffuse disease up to 60% and distal LAD with disease up to 80%. 80% stenosis of the proximal circumflex artery. RCA with 70% stenosis at the ostium and 70% stenosis distally. Summary of Care Provided: River Richey is a 79 year old M with a past medical history of hypertension, diabetes mellitus type 2, diabetic peripheral polyneuropathy, hyperlipidemia, ANKIT, coronary artery disease, morbid obesity, persistent atrial fibrillation, chronic anticoagulation with warfarin, PTCA with previous stents to the mid RCA and distal RCA, tobacco dependence in remission (quit in 1977), chronic renal failure stage IV and hypothyroidism who presented to the emergency department at [facility] on 12/30/2019 complaining of left-sided chest pain that had been present for 4 days. Chest pain was associated with shortness of breath. He was diagnosed with a NSTEMI and acute congestive heart failure resulting in acute respiratory failure requiring mechanical ventilation. He underwent cardiac catheterization on 01/03/[address] Russ Boss and this showed diffuse three-vessel disease. The ejection fraction on cath was 40%. Echocardiogram showed wall motion abnormalities anteriorly with a 40% ejection fraction and no significant valvular heart disease. The PA systolic was estimated at 30. Aggressive medical therapy was recommended. While in the hospital he had ARF on CRF stage 4 and nephrology was consulted. His baseline creatinine is approximately 2.4 and it lidia to 3.2 while in the hospital. His weight at presentation to the hospital on 12/30/2019 was 268 pounds and 5 ounces on the day of admission to the rehab unit the weight was 266 pounds and 6 ounces. Shakeel was admitted to the acute inpatient rehab unit on 01/06/2020 for physical debility secondary to acute CT, acute congestive heart failure, acute respiratory failure requiring mechanical ventilation and acute on chronic renal failure. River had 3 hours of therapy daily while in the rehab unit. He was placed on a 1800 calorie, 60 GM protein, 2 GM sodium with 1500 cc fluid restriction. 70/30 insulin was discontinued and he was started on Lantus at HS with a low dose SSI. Blood sugars on 14 units of Lantus Q HS have all been less than 200 and he has not had hypoglycemia. BP's were running high and he was started on Cardura 1 mg p.o. nightly(which should also help nocturia) and hydralazine 50 mg 3 times daily. His blood pressure has come under better control and on the date of discharge his blood pressure was 128/66. River was noted to have a microcytic anemia while in the hospital. He had a ferritin only done in the hospital and it was 69. This is low for a CRF pt and it is best to look at the % iron saturation in patients with advance renal failure. Less than 20% is considered and River's % iron saturation was 9%. He was given 300 mg of iron sucrose and 3 doses of IV ferric gluconate/sucrose. He was started on ferrous sulfate 325 mg daily at discharge. Hemoccult stool was negative. River unfortunately had recurrent acute combined CHF while on rehab and had to be diuresed. CHF resolved however the creat increased to a high of 3.48. Dr. Howell stopped by to see River and he has an appt for 01/29/20. Sonyas lungs are now CTA and he has mild ankle edema only...this I think is due to venous insufficiency. After discussing with Dr. Howell we have decided to give Lasix only when his weight increases 2-3 pounds daily or 5 lbs in a week. He is to call me with his weight in the AM on 01/16/2020 so we can determine his dry weight on his home scale. I have continued Aldactone 25 mg 3 times a week because of the decreased ejection fraction. A renal profile and PT/INR have been ordered for 01/21/2020. Will need to watch the potassium closely if he is taking Aldactone and not Lasix and it may need to be decreased or discontinued. River was discharged on 01/15/20 on medications previously listed. He did very well in therapy and has been doing the Nu-Step for 30 minutes a day. He has ascended and descended 8 steps with 2 rails at contact-guard assist. He is able to walk 300 feet with a wheeled walker at supervision on various surfaces. He is able to complete upper body dressing and lower body dressing without assistance and to don and doff his shoes at mod I. He can stand unsupported for approximately 9 minutes with no loss of balance. He will follow up with cardiac rehab and will also follow up with Dr. Boss, Dr. Treviño, Dr. Howell and Dr. Kessler. Alert and oriented X 3, NAD, appropriate, cooperative PERRL, EOMI MM are somewhat dry and there are no mucosal lesions The neck is supple and the trachea is midline, there are no cervical nodes Lungs are clear to auscultation with no wheezes, rales or rhonchi. No conversational dyspnea at rest. Not tachypneic at rest. No accessory muscle use. He gets a little winded after 30 minutes on the NuStep. Heart has a irregular rhythm (AF) with no gallop and no pericardial rub. Abdomen is soft, NT, ND and there are normal bowel sounds heard in all quadrants. There was no guarding with palpation CN's II - XII are grossly intact mild ankle edema, no calf tenderness Skin is warm and dry, no rashes, no breakdown. Mood is upbeat, pleasant and positive. This note was generated with [employer] dictation software. It may contain incorrect words, spelling, and punctuation that were not noted in checking the note before signing. Patient Problems: Active and Suspected Problems (Last Reviewed 01/07/20 @ 13:[address] Delfina Carbajal, DO) Debility (Acute) Zohjn-so-tkzkjzu renal failure (Acute) - Physical Exam Vitals/I&O's: Vital Signs Temp Pulse Resp BP Pulse Ox 97.6 F L 66 16 128/66 H 97 01/15/20 07:46 01/15/20 08:39 01/15/20 07:46 01/15/20 08:39 01/15/20 07:46 Oxygen Flow Rate (L/min) 2 Oxygen Delivery Method Room Air Weight: 264 lb 8.875 oz Body Mass Index (BMI) 40.5 Orthostatic Vital Signs Start: 01/08/20 11:56 Freq: Status: Active Protocol: Activity Type Activity Date Activity User E-Sign Co-Sign Detail Recorded Client Recorded Date Recorded By Document 01/08/20 11:56 [facility] [id number] 01/08/20 11:57 [facility] 01/08/20 11:56 Orthostatic Vitals Standing -Blood Pressure (90/60-120/80 mm Hg) 148/80 H -Extremity Use Left Arm -Pulse Rate (60-100 beats/min) 75 Sitting -Blood Pressure (90/60-120/80 mm Hg) 150/66 H -Extremity Use Left Arm -Pulse Rate (60-100 beats/min) 80 Lying -Blood Pressure (90/60-120/80 mm Hg) 139/77 H -Extremity Use Left Arm -Pulse Rate (60-100 beats/min) 118 H Intake and Output for Last 24 Hours 01/13/20 01/14/20 01/15/20 23:59 23:59 23:59 Intake Total 2350 / 2350 1320 / 1320 360 / 360 Output Total 1000 / 1000 1200 / 1200 600 / 600 Balance 1350 / 1350 120 / 120 -240 / -240 Laboratory Results 01/14/20 21:08: POC Glucose 160 H 01/15/20 05:35: PT 25.3 H, INR 2.4 01/15/20 05:35: Sodium 138, Potassium 4.5, Chloride 108 H, Carbon Dioxide 24.0, Anion Gap 6, BUN 61 H, Creatinine 3.45 H, Estim Creat Clear Calc 17.35, Est GFR (MDRD) Af Amer 22 L, Est GFR (MDRD) Non-Af 18 L, BUN/Creatinine Ratio 17.7, Glucose 96, Calcium 9.1 01/15/20 06:47: POC Glucose 105 Current Medications Acetaminophen (Tylenol) 650 mg PO Q6H PRN PRN PRN Reason: Pain Score 1-10/10 Amlodipine Besylate (Norvasc) 10 mg PO DAILY [facility] Last Admin: 01/15/20 08:39 Dose: 10 mg Documented by: [facility] Last Admin: 01/15/20 08:39 Dose: 81 mg Documented by: Atorvastatin Calcium (Lipitor) 10 mg PO QHS [facility] Last Admin: 01/14/20 21:14 Dose: 10 mg Documented by: Bisacodyl (Dulcolax) 10 mg RECTAL .PRN X 1 PRN PRN Reason: Constipation Clopidogrel Bisulfate (Plavix) 75 mg PO DAILY [facility] Last Admin: 01/15/20 08:39 Dose: 75 mg Documented by: Compound Med (Neuropathy Pain Cream Compound) 0 click TOPICAL BID [facility]; Protocol Last Admin: 01/15/20 08:36 Dose: Not Given Documented by: Dextrose (D50w Syringe) 0 gm IV X1 PRN; Protocol PRN Reason: Hypoglycemia Doxazosin Mesylate (Cardura) 1 mg PO QHS [facility] Last Admin: 01/14/20 21:14 Dose: 1 mg Documented by: Furosemide (Lasix) 40 mg PO DAILY [facility] Last Admin: 01/14/20 10:39 Dose: Not Given Documented by: Glucagon () 1 mg IM .X1 PRN PRN Reason: Hypoglycemia Hydralazine HCl (Apresoline) 50 mg PO TID [facility] Last Admin: 01/15/20 05:48 Dose: 50 mg Documented by: Sodium Chloride () 250 mls @ 15 mls/hr IV PRN PRN PRN Reason: IV flush for iron Insulin Glargine (Lantus (Bkc)) 14 units SC QHS [facility] Last Admin: 01/14/20 21:09 Dose: 14 units Documented by: Ipratropium [place] (Atrovent Nasal [place] (G)) 2 spray NASAL BID [facility] Last Admin: 01/15/20 08:39 Dose: 2 spray Documented by: Isosorbide Mononitrate (Imdur) 30 mg PO DAILY [facility] Last Admin: 01/15/20 08:39 Dose: 30 mg Documented by: Levothyroxine Sodium (Synthroid) 75 mcg PO DAILY@0600 [facility] Last Admin: 01/15/20 05:49 Dose: 75 mcg Documented by: Magnesium Hydroxide (Milk Of Magnesia) 30 ml PO .PRN X 1 PRN PRN Reason: Constipation Metoprolol Succinate (Toprol Xl ([place])) 100 mg PO DAILY [facility] Last Admin: 01/15/20 08:39 Dose: 100 mg Documented by: Nitroglycerin (Nitrostat) 0.4 mg SUBLINGUAL Q5M PRN PRN Reason: CHEST Sodium Bicarbonate (Sodium Bicarbonate) 650 mg PO DAILY [facility] Last Admin: 01/15/20 08:39 Dose: 650 mg Documented by: Sodium Chloride () 10 - 40 ml IV UD PRN PRN Reason: SALINE FLUSH Last Admin: 01/12/20 22:55 Dose: 10 ml Documented by: Spironolactone (Aldactone) 25 mg PO MoWeFr@0800 [facility] Last Admin: 01/14/20 11:07 Dose: 25 mg Documented by: Warfarin Sodium (Jantoven) 5 mg PO SuMoWeThFr@1700 [facility] Warfarin Sodium (Jantoven) 7.5 mg PO TuSa@1700 [facility] Discharge Activity: - - OK to walk and use the Nu-Step. You will be following up with cardiac rehab soon. Do NOT push yourself. If you are getting short of breath while exercising stop and rest. No hills if walking. Do not lift more than 10 pounds. May resume sexual activity in: 10-14 days Weight Bearing Status: Full weight bearing Keep extremity elevated above heart level: Legs - when sitting in a chair to help control swelling. Applying the GRAYSON wraps to the legs as soon as you get up in the morning and keepiong them on until you go to bed will also help with the swelling. Call your doctor if you observe: Fever of 101 or Higher, Inability to urinate, Shortness of breath, Dizziness, Fainting spells, Swelling in the ankles, Chest pain, Increased palpitations (irregular heartbeat), Uncontrolled pain, - - Call your family doctor if any unusual bleeding such as bleeding from the gums, blood from the anus, blood in the urine, nose bleeds, large bruises or bleeding from the vagina if female. Home Medications: Medications to take at Discharge Aspirin [Adult Low Dose Aspirin EC] 81 mg PO DAILY 07/17/15 Nitroglycerin (INPATIENT USE) [Nitrostat] 0.4 mg SUBLINGUAL Q5M PRN 07/17/15 sodium bicarbonate 650 mg tablet 650 mg PO .q day tab 07/29/17 blood sugar diagnostic 1 applic MISCELL. .MEDSUPPLY #20 ea 08/18/17 levothyroxine 75 mcg tablet 75 mcg PO DAILY 09/14/19 clopidogrel 75 mg tablet 75 mg PO DAILY 12/20/19 Isosorbide Mononitrate [Isosorbide Mononitrate ER] 30 mg PO DAILY 12/30/19 Spironolactone 25 mg PO MOWEFR 12/30/19 Amlodipine Besylate [Norvasc] 10 mg PO QDAY 01/06/20 Lovastatin 40 mg PO QHS 01/06/20 Metoprolol Succinate [Toprol Xl] 100 mg PO DAILY 01/06/20 Acetaminophen [Tylenol Tablet] 650 mg PO Q6H PRN PRN tablet 01/15/20 Doxazosin Mesylate [Cardura] 1 mg PO QHS #30 tab 01/15/20 Ferrous Sulfate 325 mg PO LUNCH #30 tab 01/15/20 Furosemide [Lasix] 40 mg PO DAILY PRN #30 tab 01/15/20 Insulin Glargine [Lantus SoloStar Pen] 14 units SUBCUT QHS #2 pen 01/15/20 Ipratropium [place] 0.06% [ATROVENT NASAL SPRAY] 2 spray NASAL BID #1 bottle 01/15/20 Neuropathy Pain Cream Compound 0 click TOPICAL BID gm 01/15/20 Warfarin [Coumadin] 5 mg PO SuMoWeThFr@1700 tablet 01/15/20 Warfarin [Coumadin] 7.5 mg PO TuSa@1700 tablet 01/15/20 hydrALAZINE [Apresoline] 50 mg PO TID #90 tab 01/15/20 Following Prescriptions Were Given to Patient: hydrALAZINE [Apresoline] 50 mg PO TID #90 tab Transmission Status: Pending to [id number] Ipratropium [place] 0.06% [ATROVENT NASAL SPRAY] 2 spray NASAL BID #1 bottle Transmission Status: Pending to [id number] Doxazosin Mesylate [Cardura] 1 mg PO QHS #30 tab Transmission Status: Pending to [id number] Ferrous Sulfate 325 mg PO LUNCH #30 tab Transmission Status: Received by [id number] Insulin Glargine [Lantus SoloStar Pen] 14 units SUBCUT QHS #2 pen Transmission Status: Pending to [id number] Furosemide [Lasix] 40 mg PO DAILY PRN #30 tab PRN Reason: increase in weight Transmission Status: Pending to [id number] Other Amb Orders: Prothrombin Time w/INR Time Frame: 01/21/20, Facility: [facility], Location: Laboratory Renal Profile Time Frame: 01/21/20, Facility: [facility], Location: Laboratory Primary Care Physician: Masha Treviño MD [Primary Care Provider] - Please follow up with your Primary Care Physician in: 1 week Please Follow Up With: Dr. Dyllan Howell, Nephrology When: Tuesday Please Follow Up With: Russ Boss MD Please Follow Up With: Olivia Patient Instructions: Creating a Hemodialysis Access Minutes spent on discharge:: 50 Patient Condition:: Good Medical Necessity - Tobacco Use Smoking Status: Former smoker - Quit in 1977 Tobacco Use: Cigarettes Meaningful Use Info Meaningful Use Diagnoses (Choose all that apply): CHF - CHF GRAYSON/ARB ordered at discharge?: No Reason GRAYSON/ARB not ordered?: Worsening renal disease Documented LVEF (%): 40 Inpatient E&M: 88197 Disch Hosp
== END 2020-01-15 13:20 | disposition home or self-care (01) | DRG 281 ==
PROVIDERS: Admitting Provider Internal Medicine; PCP Family Medicine; Visit Provider Internal Medicine
DX: I21.4 Non-ST elevation (NSTEMI) myocardial infarction (principal); I13.0 Hypertensive heart and chronic kidney disease with heart failure and stage 1 through stage 4 chronic kidney disease, or unspecified chronic kidney disease; I50.42 Chronic combined systolic (congestive) and diastolic (congestive) heart failure; I48.11 Longstanding persistent atrial fibrillation; N18.4 Chronic kidney disease, stage 4 (severe); Z68.41 Body mass index [BMI] 40.0-44.9, adult; G47.33 Obstructive sleep apnea (adult) (pediatric); E66.01 Morbid (severe) obesity due to excess calories; E78.5 Hyperlipidemia, unspecified; I25.10 Atherosclerotic heart disease of native coronary artery without angina pectoris; E11.22 Type 2 diabetes mellitus with diabetic chronic kidney disease; I25.5 Ischemic cardiomyopathy; E11.42 Type 2 diabetes mellitus with diabetic polyneuropathy; D50.9 Iron deficiency anemia, unspecified; E03.9 Hypothyroidism, unspecified; Z87.891 Personal history of nicotine dependence; E83.39 Other disorders of phosphorus metabolism
CPT/HCPCS: 36415; 71046; 80048; 80053; 82274; 82962; 83036; 83540; 83550; 83735; 83880; 84100; 85027; 85610; 97110; 97116; 97162; 97166; 97530; 97535; 97802; 97803; 99251; 99406; J7050; A4216; G0463; J2916

== ENCOUNTER 2020-01-21 11:21 | Outpatient (RCR) | payer MEDICARE, OTHER, SELFPAY ==
[2019-12-20 08:32] VITALS: BMI 40.3
[2020-01-06 15:24] VITALS: BMI 40.5
[2020-01-21 12:13] LABS: International Normalized Ratio 2.4; Prothrombin Time (Protime)PT. 25.4 SECONDS (11.7-14.9)
[2020-01-21 12:37] LABS: Albumin, Serum 3.4 g/dL (3.2-5.0); BUN 40 mg/dL (7-18); BUN/Creat Ratio 13.4 RATIO (10-20); Calcium,Total 9.4 mg/dL (8.5-10.1); Chloride 107 mmol/L (98-107); Creatinine, Serum 2.99 mg/dL (0.70-1.30); EST Glomerular Filtration Rate 22 mL/min (>60); Est Glom Filt Rate - Afr Amer 26 mL/min (>60); Glucose 210 mg/dL (74-106); Phosphorus 2.8 mg/dL (2.5-4.9); Potassium 3.9 mmol/L (3.5-5.1); Sodium Level 136 mmol/L (136-145)
== END 2020-01-21 18:00 | disposition home or self-care (01) ==
LOC: LAB 11:21
PROVIDERS: Internal Medicine; Family Provider Family Medicine; PCP Family Medicine; Referring Provider Internal Medicine Cardiovascular Disease; Visit Provider Internal Medicine Cardiovascular Disease
DX: I48.20 Chronic atrial fibrillation, unspecified (principal); D50.9 Iron deficiency anemia, unspecified; N18.4 Chronic kidney disease, stage 4 (severe); Z79.01 Long term (current) use of anticoagulants; M54.9 Dorsalgia, unspecified; M79.606 Pain in leg, unspecified
CPT/HCPCS: 36415; 80069; 85610; J7030; J7040

== ENCOUNTER 2020-02-06 09:45 | Outpatient (RCR) | payer MEDICARE, OTHER, SELFPAY ==
[2020-01-06 15:24] VITALS: BMI 40.5
[2020-01-24 07:27] VITALS: BMI 39.9
[2020-02-06 10:15] LABS: International Normalized Ratio 1.8; Prothrombin Time (Protime)PT. 20.6 SECONDS (11.7-14.9)
== END 2020-02-06 18:00 | disposition home or self-care (01) ==
LOC: LAB 09:45
PROVIDERS: Family Provider Family Medicine; PCP Family Medicine; Referring Provider Internal Medicine Cardiovascular Disease; Visit Provider Internal Medicine Cardiovascular Disease
DX: I48.20 Chronic atrial fibrillation, unspecified (principal); Z79.01 Long term (current) use of anticoagulants
CPT/HCPCS: 36415; 85610

== ENCOUNTER 2020-02-21 10:00 | Outpatient (RCR) | payer MEDICARE, OTHER, SELFPAY ==
[2020-01-06 15:24] VITALS: BMI 40.5
[2020-01-24 07:27] VITALS: BMI 39.9
--- NOTE | 2020-01-28 12:07 | HP.PTEVAL ---
Patient's Visit Information HANS GLASS is a 79 year old M referred to Physical Therapy by Dr. Delfina Carbajal DO with a diagnosis of Debility. Date of Evaluation: 01/28/20 Physical Therapist: Pierre Khan, PT, ATC - Visit Plan Frequency: 2-3x /Week Duration: 4-6 Weeks Plan: B LE strengthneing, balance and proprio, core stab ex's, nustep, and HEP - Subjective Pt reports one month ago he began to experience a burning sensation in his chest. Pt reports he went to the ER and found out he had a lot of fluid surrounding his heart. Pt notes he doesnt remember a lot of what happened. Pt reports he was in the hospital for 16 days. Pt notes he was in the ICU, then transfered to the 4th floor rehab unit. Pt notes he gets tired easily not. He notes he feels weak overall. Pt reports he has been using a walker not, but notes he did not use an AD prior to this episode. Pt reports no recent falls. Pt notes he has peripheal neuropathy which makes it hard for him to feel the ground. Pt reports he has stairs into his house. Pt must negotiate them backwards on the way down. No pain this date. - Objective Neuro: B LE sensation is WNL to light touch. MMT: B LE is grossly 4/5 throughout. Gait: Pt is able to ambulate 680' with WW and CGAx1 - Goals Goal 1:: Increase B LE strength x 1 grade to aid with stair negotiation Goal Time Frame: 4-6 Weeks Goal 2:: Increase SDB x 1 grade to aid with preventing future falls Goal Time Frame: 4-6 Weeks Goal 3:: I with HEP Goal Time Frame: 4-6 Weeks Goal 4:: Pt will be able to ambulate greater than 1000 feet to aid with community ambulation Goal Time Frame: 4-6 Weeks - Rehabilitation Potential Physical Therapy Diagnosis: Pt has LE weakness and is limited with gait secondary to debility Rehabilitation Potential: Good - Anticipated Interventions Patient/Client Instruction: Educate patient on: Condition, Plan of Care For the Purpose of:: To improve self management Therapeutic Exercise to Include: Strength training, Endurance training, Flexibilty training, Gait and locomotor training, Dynamic Lumbar Stabilization For the Purpose of:: To decrease pain, To increase ROM, To improve muscle performance and motor function Cryotherapy (ice pack, ice massage): Yes For the Purpose of:: To decrease pain Thank you for the opportunity to evaluate your patient. For Medicare and Medicare HMO plans, please review the plan of care and approve it. It will need to be FAXED BACK to us at [phone] for Medicare purposes. For Medicare only, by signing this I certify the plan of care. Please let me know if there are questions or concerns regarding this plan of care. Physician Signature: Date:
--- NOTE | 2020-02-21 11:58 | HP.PTDCSUM ---
It has been my pleasure to treat HANS GLASS referred by Dr. Masha Treviño MD, with the diagnosis of Debility for a total of 9 visit(s). Discharge Date: Please see the following information for a summary of their discharge status. Subjective: Pt reports he has definitely felt improvement % Improvement: 65 Objective/Function: MMT: B LE strength 5/5 throughout with exception to R knee ext= 4+/5. Pt is able to ambulate 680' without AD. Pt is I with HEP. Pt can DLS with EO/EC for greater than 60 sec ea. Rx goals achieved Goal 1:: Increase B LE strength x 1 grade to aid with stair negotiation Goal Progress: Goal Met Goal 2:: Increase SDB x 1 grade to aid with preventing future falls Goal Progress: Goal Met Goal 3:: I with HEP Goal Progress: Goal Met Goal 4:: Pt will be able to ambulate greater than 1000 feet to aid with community ambulation Goal Progress: Progressing Plan: Discharge If there are questions or concerns regarding this patient's physical therapy, please feel free to call me at [phone]. Thank you for the referral of this patient. Sincerely, Pierre Khan, PT, ATC
== END 2020-02-21 19:00 | disposition home or self-care (01) ==
LOC: PT 10:00
PROVIDERS: PCP Family Medicine; Referring Provider Family Medicine; Visit Provider Family Medicine
DX: R53.81 Other malaise (principal)
CPT/HCPCS: 97110; 97161; 97164

== ENCOUNTER → 2020-02-25 12:55 | Outpatient (CLI) | payer MEDICARE, OTHER, SELFPAY ==
[2020-01-24 07:27] VITALS: BMI 39.9
--- NOTE | 2020-02-25 13:01 | CR.HP_ITS ---
CR - History & Physical - History of Present Cardiac Event Onset Date: Enter Onset Date of cardiac illnesses in Comment field below - Medications Home Medications: Ambulatory Orders Medication Instructions Recorded Aspirin [Adult Low Dose Aspirin EC] 81 mg PO DAILY 07/17/15 sodium bicarbonate 650 mg tablet 650 mg PO .q day tab 07/29/17 blood sugar diagnostic 1 applic MISCELL. .MEDSUPPLY #20 ea 08/18/17 levothyroxine 75 mcg tablet 75 mcg PO DAILY 09/14/19 Spironolactone 25 mg PO MOWEFR 12/30/19 Furosemide [Lasix] 40 mg PO DAILY PRN #30 tab 01/15/20 Ipratropium [place] 0.06% 2 spray NASAL BID #1 bottle 01/15/20 [ATROVENT NASAL SPRAY] Warfarin [Coumadin] 5 mg PO SuMoWeThFr@1700 tab 01/15/20 Warfarin [Coumadin] 7.5 mg PO TuSa@1700 tab 01/15/20 ergocalciferol (vitamin D2) 50 mcg 50 mcg PO DAILY 01/24/20 (2,000 unit) capsule nitroglycerin 0.4 mg sublingual 0.4 mg SUBLINGUAL Q5M PRN #25 tab 01/24/20 tablet doxazosin 1 mg tablet 1 mg PO QHS #90 tab 02/06/20 ferrous sulfate 325 mg (65 mg 325 mg PO LUNCH #90 tab 02/06/20 iron) tablet hydralazine 50 mg tablet 50 mg PO TID #270 tab 02/06/20 isosorbide mononitrate 30 mg 30 mg PO DAILY #90 tab 02/06/20 tablet,extended release 24 hr lovastatin 40 mg tablet 40 mg PO QPM #90 tab 02/06/20 metoprolol succinate 100 mg 100 mg PO DAILY #90 tab 02/06/20 tablet,extended release 24 hr multivitamin 1 tab PO DAILY 02/06/20 insulin glargine 100 unit/mL (3 14 unit SUBCUT QHS #15 ml 02/18/20 mL) subcutaneous pen pen needle, diabetic 32 gauge x See Rx Instructions .ROUTE 02/18/20 .MEDSUPPLY #100 ea - Allergies Allergies/Adverse Reactions: Allergies Penicillins Adverse Reaction (Severe, Verified 01/24/20 07:28) Swelling Past Medical History - Past Medical Illness Medical History: Past Medical History (Last Reviewed 01/24/20 @ 12:[address] 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 Type 2 diabetes mellitus (Chronic) E11.9 Hypothyroidism (Chronic) E03.9 Chronic renal failure, stage 4 (severe) (Chronic) N18.4 Hyperphosphatemia E83.39 Iron deficiency anemia D50.9 Left atrial enlargement I51.7 Morbid obesity E66.01 ANKIT (obstructive sleep apnea) G47.33 Obstructive sleep apnea G47.33 Acute combined systolic (congestive) and diastolic (congestive) heart failure (Resolved) I50.41 Acute respiratory failure with hypoxia and hypercapnia Onset Date: 12/30/19 J96.01, J96.02 Secondary to acute congestive heart failure Pulmonary edema Onset Date: 12/30/19 J81.1 - Past Surgical History Surgical History: Past Surgical History (Last Reviewed 01/24/20 @ 12:[address] Russ Boss MD) History of coronary artery stent placement (Chronic) Onset Date: 06/03/15 Z95.5 BMS to Mid RCA w/ 3.5 x 24 mm Assembler Hydraulic Backhoe Stent 04/03/2003; BMS to Distal RCA w/ 3.0 x 18 mm Assembler Hydraulic Backhoe Stent 06/04/2004; POBA-ISR Prox and Distal RCA 06/03/15 History of back surgery Onset Date: 01/2019 Z98.890 Lumbar History of left heart catheterization Onset Date: 01/03/20 Z98.890 History of total right knee replacement (TKR) Z96.651 Surgical History: angioplasty, total knee arthroplasty, - - Back surgery - Family History Summary Family History: Family History (Last Reviewed 01/24/20 @ 12:[address] Russ Boss MD) Father , age 79, of embolism CAD (coronary artery disease) Embolism Mother , age 74 Kidney disease renal failure Risk Factor Assessment - For Smoking Smoking Risk Guidelines: Smoking Low Risk: None or quit greater than 6 months ago. Smoking Moderate Risk: Smoker or quit 6 months or less ago. Smoking High Risk: Smoker - For Dyslipidemia Dyslipidemia Risk Guidelines: Low Risk: Moderate Risk: High Risk: 15-25% fat 25.1-29% fat >/= 30% fat. <7% sat fat 7-9% sat fat >9% sat fat. <150 mg chol 150-299 mg chol >/= 300 mg chol. LDL <100 LDL 100-129 LDL >/= 130. Chol/HDL ratio <5.0 Chol/HDL ratio 5.0-6.0 Chol/HDL ratio >6.0. Triglycerides <100 Triglycerides 100- 149 Triglycerides >/= 150 - For Diabetes Mellitus Diabetes Risk Guidelines: Diabetes Low Risk: HgA1c <6.5% and/or FBG <120. Diabetes Moderate Risk: HgA1c 6.6-7.9% and/or FBG 120-180. Diabetes High Risk: HgA1c >/= 8% and/or FBG >180 - For Obesity/Overweight Obesity/Overweight Risk Guidelines: Obesity Low Risk: BMI <25.0. Obesity Moderate Risk: BMI 25-29.9. Obesity High Risk: BMI >/= 30.0 - For Hypertension Hypertension Risk Guidelines: Hypertension Low Risk: Systolic <120 and Diastolic <80. Hypertension Moderate Risk: Systolic 120-139 and Diastolic 80-89. Hypertension High Risk: Systolic >/= 140 and Diastolic >/= 90 - For Sedentary Lifestyle Sedentary Lifestyle Risk Guidelines: Sedentary Lifestyle Low Risk: >/= 1,500 kcal/week. Sedentary Lifestyle Moderate Risk: 700-1,499 kcal/week. Sedentary Lifestyle High Risk: < 700 kcal/week - For Depression Depression Risk Guidelines: Depression Low Risk: Not clinically depressed. Depression Moderate Risk: Mildly depressed. Depression High Risk: Clinically depressed - Family History Family History: Family History (Last Reviewed 01/24/20 @ 12:[address] Russ Boss MD) Father CAD (coronary artery disease) Embolism Mother Kidney disease
--- NOTE | 2020-02-25 13:06 | PCM.CR.ITP ---
Diagnosis - General Information Admitting Diagnosis: NSTEMI Personal Learning Style:: Audio/Visual, Written Barriers to Learning: Hearing Impairment, Vision Impairment Stage of change r/t lifestyle modifications:: Action Gave educational material for:: Treating Heart Disease, Emotions & Heart Disease, Stress Management & Relaxation, Sleep Disorders & Heart Disease, How The Heart Works, What it means to have Heart Disease, How Coronary Artery Disease is Diagnosed, Heart Procedures, What Heart Medications Do, Risk Factors & Modifications, Living an Active Life, Nutrition - Education/Goals Individual Counseling: Initial Assessment: Abnormal Cholesterol Levels, High Blood Pressure, Overweight/Obesity, Diabetes, Metabolic Syndrome (as evidenced by 3 of 5 A-E below), A. Fasting Blood Sugar >100 - 210, Hypertension Cardiac Rehabilitation Goals: 1. Maintain the individual as the primary focus of care. 2. To improve the patient's quality of life. 3. Identification of cardiac risk factors and provide cardiac risk factor management. 4. Enhance the psychosocial status of the patient. 5. Reconditioning enough to allow the patient to resume customary activities. 6. Control symptoms of cardiac disease Personal Goals: Initial Assessment: Improve energy level, Participate in home exercise program, Get back to work, or to resume activities faster, Improve muscle strength and endurance, Improve diet and eating habits (eat healthier), Control risk factors (learn risk factor modification) Scale for measuring improvement of personal goals: Enter appropriate number in Comments. 2 = Unchanged. 3 = Slightly Better. 4 = Moderate Improvement. 5 = Met my Goal - Diagnosis & Disease Process Outcomes/Goals: Pt IDs own risk factors & lifestyle modifications by Session 10, Verbalizes symptoms of angina & response by session 3., Pt independently manages Plan/Interventions: Assist Pt to ID & engage in lifestyle modification to reduce CVD risk, Instruct on individual risk factors, Review symptoms of angina & emergency actions, Review secondary diagnosis & identify educational needs. - Safety Referral to Physical Therapy: No Referral to [facility] Case Management: No Fall Risk Assessed:: Yes Assistive Devices:: None Exercise - Initial Assessment - Visit Date of Eval: 02/25/20 Session #:: 0 - pre-cardiac rehab Mets: Pre-: >5 METS for 30 minutes by discharge - Physician Prescribed Exercise Modalities: Treadmill, Airdyne, NuStep, SciFit Frequency: 3x/week for 12 weeks [36 sessions] Intensity: 60-80% of age predicted maximum heart rate reserve Current METSs:: 3.0 Target Heart Rate:: 85-114 EKG Type: atrial fibrillation - Outcomes & Goals Goals:: Verbalizes understanding of THR, RPE & goal METS by session 6, Documents in home exercise log/reports 30 min aerobic 5 day/wk by DC, Demonstrates accurate pulse taking by DC - Intervention & Plan Exercise Program Goals: Instruct on personal THR & RPE, Instruct on MET level & personal MET goal, Show patient to take own pulse /validate performance until accurate, Instruct on home exercise - Physical Activity Home Exercise Physical Activity - Home Exercise: Safe Exercise, Warm-up, Self-monitoring, Cool-Down, Home Exercise > 30 min Daily, Sitting Time <3 hours/daily - Outcomes & Goals Outcomes/Goals: Demonstrates correct Warm-up/exercise Cool-Down (S3) if = 2.5 METs, Verbalizes symptoms of exercise intolerance by Session 3 (S3), Demonstrate safe equipment use (S3) & follows exercise prescrition (6) - Intervention & Plan Plan/Intervention: Instruct warm-up & cool-down if exercising at > 2 METs, Instruct on symptoms of exercise intolerance & actions to take, Instruct & monitor on saf, Assess intial functional capacity & safety risk Nutrition - Initial Assessment - Program Goals Nutrition Program Goals: LDL <100 optimal. 100 - 129 Near optimal. 130 - 159 Borderline High. 160 - 189 High. Total Cholesterol <200 desirable. 200 - 239 Borderline High. >/= 240 High. HDL < 40 Low >/=60 High. Triglycerides <150 desirable. <199 optimal. VlDL 5 - 40. HgbA1C <7%. BMI <25 Patient has diagnosis of Hyperlipidemia (ICD E78)?: Yes - Visit Date of Assessment:: 02/25/20 Session #:: 0 - pre-cardiac rehab - Cholesterol/Lipids Triglycerides (mg/dL): 109 Total Cholesterol (mg/dL): 126 LDL Cholesterol (mg/dL): 57 HDL Cholesterol (mg/dL): 47 Determine presence & major risk factors that modify LDL goal: Hypertension or hypertensive medication, Family history of premature CHD in Male < 55 years: female <65 yearsFa, Age men > 45 years; women >/= 55 years Outcomes/Goals: Pt IDs own risk factors & lifestyle modifications by Session 10, Verbalizes symptoms of angina & response by session 3., Pt independently manages Intervention/Plan: Instruct on personal lipid levels & lipid goals/NCEP guidelines, Instruct on cholesterol - Diabetes (Other Core Measures) Diabetes Type: Diagnosis Type II ICD-10 E11 Fasting blood glucose:: 210 Hgb A1C (4.2 - 6.3): 6.3 Insulin dependent injection/pump?: Yes Non-Insulin Dependent?: Yes Do you monitor your blood sugar at home?: Yes Referral to Diabetic Clinic:: Yes Outcomes/Goals:: Able to state symptoms of, Able to state, Able to state Intervention/Plan:: Instruct on, Refer to, Instruct on - Weight Mgt (Other Care) Not Applicable: No Height: 5 ft 8 in Weight:: 263 lb BMI: 39.9 Diagnosis Overweight/Obesity BMI> 30% ICD-10 E66: Yes Diagnosis High BMI/Morbid Obesity BMI> 35% ICD-10 Z68: Yes Outcomes/Goals: Pt sets, maintains & shows weight loss goal & trend during rehab Intervention/Plan: Instruct on ideal BMI & set weight loss goal w/patient, Assist pt to ID & incorporate diet changes for weight loss by S9, Refer to Structured Weight Loss program as appropriate, Encourage goal of using 250-300dcal per session for weight loss - Healthy Eating Habits Will attend diet classes:: Yes Outcomes/Goals:: Consume diet rich in vegs,fruits,whole grain/high fiber,fish,lean meat, Limit sat/trans fats,cholesterol & added salts & sugars Intervention/Plan:: Assess current eating habits - Education Gave educational materials for:: Signs & symptoms of hypoglycemia, Signs & symptoms of hyperglycemia, Relate diabetes to coronary artery disease, Healthy eating Medical - Initial Assessment - Visit Date of Eval: 02/25/20 Session #:: 0 - pre-cardiac rehab - Medication Compliance Preventative Medication(s):: Aspirin, Clopidogrel/P2Y12 inhibit, Statin/lipid, Beta carl, Warfarin/Coumadin H/O mental health issues: depression, anxiety, or addiction?: Yes Doesn?t believe in the benefits of treatment?: No Believes medications are unnecessary or harmful?: No Has a concern about medication side effects?: No Expresses concern over the cost of medications?: No Outcomes/Goals: Verbalizes medications,desired effect & common side effects @ DC, Pt self-reports following medication regimen, Keeps card in wallet w/medications listed by DC Interventions/plans: Instruct on medication effects & side effects, Review medication list w/patient every two weeks, Instruct importance of taking meds as ordered & assist problem solving - Tobacco Use Tobacco Use: Non-smoker - Hypertension Hypertension Diagnosis:: Hypertension ICD-10 I10 Resting Blood Pressure:: 132/66 [employer] Hypertension Guidelines: [employer] Hypertension Guidelines. Normal BP Less than 120/80. Elevated BP 120/80. Hypertension Stage 1: BP 130-139/80-89. Hypertesnion Stage 2: BP 140 or higher/90 or higher. Hypertension Crisis: BP higher than 180/120 Outcomes/Goals: Able to verbalize/achieve optimal blood pressure <130/80, Incorporates diet changes & exercise for blood pressure control by DC Interventions/plan: Instruct on optimal blood pressure, hypertension & medications, Instruct on effects of sodium, alcohol, stress, exercise &hypertension - Tobacco Cessation Referral Smoking Cessation Referral:: No Individual Education/Counseling:: No Education Schedule Given:: Yes Psychosocial - Initial Assess - VIsit Date of Eval: 02/25/20 Session #:: 0 - pre-cardiac rehab History of previous Mental disease:: No - Target Goals Target Goals: Assess presence or absence of depression. Using a valid screening tool, maximizes coping skills. Positive support system - Psychosocial Test Tool Used:: [employer] QOL Cardiac, PHQ-9 Questionnaire phq-9 Severity: Severity. 1-4 Minimal Depression. 5-9 Mild Depression. 10-14 Moderate Depression. 15-19 Moderately Sever Depression. 20-27 Severe Depression. Rule: - Referral to Behavioral Health PS - Interventions: Yes Attend Stress Management Classes, No Referral to Behavioral Health if PHQ-9 score >9:, No Referral to [facility], No Referral to Physician if PHQ-9 if score is 5-9: - Outcomes/Goals: See list Psychosocial Outcomes/Goals:: ID's personal stressors & 2 strategies to manage stress by discharge - Intervention/Plan: See List Interventions/Plan:: Assess stressors,coping strategies & signs of derpression on admission, Instruct/assist pt to develop coping & personal stress Mgt strategies, Instruct patient to recognize signs & symptoms of depression, Instruct patient to recog Patient Health Questionnaire Initial Assessment 1. Little interest or pleasure in doing things: Not at all 2. Feeling down, depressed, or hopeless: Not at all 3. Trouble falling or staying asleep, or sleeping too much: Not at all 4. Feeling tired or having little energy: Several days 5. Poor appetite or overeating: Not at all 6. Feeling bad about yourself -- or that you are a failure or have let yourself or your family down: Not at all 7. Trouble concentrating on things, such as reading the newspaper or watching television: Not at all 8. Moving or speaking so slowly that other people could have noticed. Or the opposite - being so fidgety or restless that you have been moving around a lot more than usual: Not at all 9. Thoughts that you would be better off , or of hurting yourself in some way: Not at all How difficult have these problems made it for you to do your work, take care of things at home, or get along with other people?: Not difficult at all Total Score: 1 NARDA-Q SV Test - Statements CAD is a disease of the arteries in the heart: True Examples of risk factors for heart disease: True Angina is chest pain or discomfort: True The benefits of resistance training include: True Eating more meat and dairy products: False Anti-platelet medications such as aspirin are important: True The only effective way to manage stress: False An exercise warm-up slowly increases heart rate: True Prepared, processed foods usually have high sodium: True Depression is common after a heart attack: True The statin medications lower cholesterol: I Don't Know To control blood pressure, lower the amount of sodium: True If someone gets chest discomfort during walking: False Transfats are partially hydrogenated vegetable oils: True Sleep apnea that is not treated increases the risk: I Don't Know To control cholesterol, one should become a vegetarian: False Someone knows if he/she is exercising at the right level: True Diabetes cannot be prevented with exercise & health eating: False Stress is a large risk for heart attack: True A diet that can help lower blood pressure is rich in: True - Total Score Total Correct Responses: 17 Self-Efficacy Initial Assessment We would like to know how confident you are in doing certain activities. Please select your confidence level for:: Select your confidence level for the following using the scale 1-10 where 1 is not at all confident and 10 is totally confident. Your score is the average of all 6 responses. Fatigue: How confident are you that you can keep the fatigue caused by your disease from interfering with the things you want to do? Select Number: 7 Physical Discomfort or Pain: How confident are you that you can keep the physical discomfort or pain of your disease from interfering with the things you want to do? Select Number: 8 Emotional Distress: How confident are you that you can keep the emotional distress caused by your disease from interfering with the things you want to do? Select Number: 8 Other Symptoms or Health Problems: How confident are you that you can keep other symptoms or health problems from interfering with the things you want to do? Select Number: 8 Different Tasks and Activities: How confident are you that you can do the different tasks and activities needed to manage your health condition so as to reduce your need to see a doctor? Select Number: 9 Medication: How confident are you that you can do things other than just taking medication to reduce how much your illness affects your everyday life? Select Number: 9 Total Score:: 8 Nutrition Survey - Nutrition Survey Instructions Scoring Instructions: Scoring is as follows: Yes = 1 points. No = 0 point. Patient score that is >/=12 is considered to be at potential nutritional risk and could benefit from a referral to a registered dietitian. - Nutrition Survey Initial Have you lost >10 lbs over the past 2 months without trying?: No Are you following a special diet at home for diabetes, low fat, or low salt?: Yes Are you interested in meeting with a dietitian for help understanding your diet?: No Do you eat less than 3 meals a day?: No Do you eat fatty meats (braun, sausage, ribs, etc), fried foods, desserts, large amounts of salad dressings, margarine, butter, or cheese most days?: No Do you have food allergies? [Enter types in comment field]: No Do you eat in restaurants more than 3 times a week?: No Do you season food with salt, seasoning salt, or garlic salt?: No Do you used canned, boxed, frozen meals, or soups, seasoning packets?: No Total Score:: 1
--- NOTE | 2020-02-25 13:07 | PCM.CR.HP2 ---
CR - History & Physical - General Arrival date:: 02/25/20 Arrival time:: 13:07 Date of Referral:: 01/24/20 Date of CR Evaluation:: 02/25/20 - Postponed eval per patient's request. Referring Physician: Dr. Russ Boss Primary Diagnosis: NSTEMI - History of Present Cardiac Event Onset Date: Enter Onset Date of cardiac illnesses in Comment field below Acute Myocardial Infarction within 12 months:: Yes - NSTEMI on 12/31/2019 PTCA or coronary stenting:: Yes - 06/03/2015 Type of Symptoms:: chest pain resolved Interventions with present event:: heart cath, no intervention due to size of coronary vessel Were there any complications?: none; treating with medications only. - Medications Home Medications: Ambulatory Orders Medication Instructions Recorded Aspirin [Adult Low Dose Aspirin EC] 81 mg PO DAILY 07/17/15 sodium bicarbonate 650 mg tablet 650 mg PO .q day tab 07/29/17 blood sugar diagnostic 1 applic MISCELL. .MEDSUPPLY #20 ea 08/18/17 levothyroxine 75 mcg tablet 75 mcg PO DAILY 09/14/19 Spironolactone 25 mg PO MOWEFR 12/30/19 Furosemide [Lasix] 40 mg PO DAILY PRN #30 tab 01/15/20 Ipratropium [place] 0.06% 2 spray NASAL BID #1 bottle 01/15/20 [ATROVENT NASAL SPRAY] Warfarin [Coumadin] 5 mg PO SuMoWeThFr@1700 tab 01/15/20 Warfarin [Coumadin] 7.5 mg PO TuSa@1700 tab 01/15/20 ergocalciferol (vitamin D2) 50 mcg 50 mcg PO DAILY 01/24/20 (2,000 unit) capsule nitroglycerin 0.4 mg sublingual 0.4 mg SUBLINGUAL Q5M PRN #25 tab 01/24/20 tablet doxazosin 1 mg tablet 1 mg PO QHS #90 tab 02/06/20 ferrous sulfate 325 mg (65 mg 325 mg PO LUNCH #90 tab 02/06/20 iron) tablet hydralazine 50 mg tablet 50 mg PO TID #270 tab 02/06/20 isosorbide mononitrate 30 mg 30 mg PO DAILY #90 tab 02/06/20 tablet,extended release 24 hr lovastatin 40 mg tablet 40 mg PO QPM #90 tab 02/06/20 metoprolol succinate 100 mg 100 mg PO DAILY #90 tab 02/06/20 tablet,extended release 24 hr multivitamin 1 tab PO DAILY 02/06/20 insulin glargine 100 unit/mL (3 14 unit SUBCUT QHS #15 ml 02/18/20 mL) subcutaneous pen pen needle, diabetic 32 gauge x See Rx Instructions .ROUTE 02/18/2032 .MEDSUPPLY #100 ea - Allergies Allergies/Adverse Reactions: Allergies Penicillins Adverse Reaction (Severe, Verified 01/24/20 07:28) Swelling - Sleep Disorder Evaluation Hx of Sleep Apnea: Yes Do you snore loudly (louder than talking or can be heard through closed doors)?: Yes Do you often feel tired/ fatigued/ sleepy during daytime?: No Has anyone observed you stop breathing during sleep?: Yes History of Hypertension (for STOP score): Yes - Previous hsitory of [facility] and has home equipment for treatment. STOP Results: Positive Advanced Directives - Advanced Directives Power of Laboratory Geneticist: Yes - is tiffany CAMPBELL of healthcare for patient Living Will: Yes Advance Directives Information Provided: Yes Advance Directives on File: No DNR Order?:: No - MOLST See MOLST form: No Past Medical History - Covid-19 Screening Fever: No Unexplained muscle aches: No Current respiratory symptoms: No Upper respiratory infections symptoms: No Gastro-intestinal symptoms: No Pkw-Otyk-Bpzwtb symptoms: No Has tested positive for COVID-19 in last 30 days: No Had contact w/person w/symptoms or Covid-19 (+) last 14 days: No Has High Risk Exposures ID'd by Health dept/Inf Control team: No 65 years or older:: Yes Lives in Assisted Living facility:: No Has a chronic lung disease or moderate to severe asthma:: No Has a serious heart condition:: Yes Immunocompromised:: No Diabetic:: Yes Has chronic kidney disease undergoing dialysis:: Yes Has liver disease:: No - Past Medical Illness Medical History: Past Medical History (Last Reviewed 01/24/20 @ 12:[address] 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 Type 2 diabetes mellitus (Chronic) E11.9 Hypothyroidism (Chronic) E03.9 Chronic renal failure, stage 4 (severe) (Chronic) N18.4 Hyperphosphatemia E83.39 Iron deficiency anemia D50.9 Left atrial enlargement I51.7 Morbid obesity E66.01 ANKIT (obstructive sleep apnea) G47.33 Obstructive sleep apnea G47.33 Acute combined systolic (congestive) and diastolic (congestive) heart failure (Resolved) I50.41 Acute respiratory failure with hypoxia and hypercapnia Onset Date: 12/30/19 J96.01, J96.02 Secondary to acute congestive heart failure Pulmonary edema Onset Date: 12/30/19 J81.1 - Past Surgical History Surgical History: Past Surgical History (Last Reviewed 01/24/20 @ 12:[address] Russ Boss MD) History of coronary artery stent placement (Chronic) Onset Date: 06/03/15 Z95.5 BMS to Mid RCA w/ 3.5 x 24 mm Hat Measurer Stent 04/03/2003; BMS to Distal RCA w/ 3.0 x 18 mm Hat Measurer Stent 06/04/2004; POBA-ISR Prox and Distal RCA 06/03/15 History of back surgery Onset Date: 01/2019 Z98.890 Lumbar History of left heart catheterization Onset Date: 01/03/20 Z98.890 History of total right knee replacement (TKR) Z96.651 Surgical History: angioplasty, total knee arthroplasty, - - Back surgery - Family History Summary Family History: Family History (Last Reviewed 01/24/20 @ 12:[address] Russ Boss MD) Father , age 79, of embolism CAD (coronary artery disease) Embolism Mother , age 74 Kidney disease renal failure Social History - Smoking History Smoking Status: Former smoker Hx Tobacco Use: Yes - quit smoking in 1977 Hx Smoking Exposure: No - Alcohol Use Alcohol Usage: No - Substance Abuse Hx Substance Use: No - Occupation Occupation (List type of work in comments):: Employed, Retired Hours worked per day:: 0 - works as needed maybe 30 hours/week - Hobbies, Recreation, Social Activities Hobbies: Sports - Golf, and hunting, Exercise, Other Recreational Activities: I am able to engage in most, but not all activities Social Environment - Status Marital Status: - Current Living Arrangements Living Environment:: Alone - Children How many children do you have?: 2 Do any of your children live nearby?: Yes - One in [place], the other in [place] - Safety Do you feel safe in your surroundings?: Yes - Assistance Do you need any assistance at home?: none Review of Systems - Review of Systems Hints: Right click = Denies (Slash). Left click = Reports ([place]) Review of Present Symptoms: Reports: Fatigue - later in the evenings gets tired., Heart Arrhythmia/Irregularities - chronic atrial fibrillation, Appetite - Normal, Appetite - Special Diet - Diabetic diet and kidney diet- 1800 calories, low fat low sodium,, Sleep - Normal. Denies: Shortness of Breath at Rest, Shortness of Breath with Exertion, Operative Discomfort, Angina, Dizziness/Lightheadedness - Pain Is Patient Pain Free?: Yes Pain Location: none Pain Level: 0/10 - [facility] evaluation physical therepay for knee replacement therapy. Nerve still not quit healed properly. Risk Factor Assessment - Chief Complaint Chief Complaint: 79 M present to cardiac rehab today following recent NSTEMI myocardial infarction. Upon heart ceth procedure Dr. Boss told patient the coronary vessel was to small to stent and would be treating the AR with medication and cardiac rehab. - Vital Signs Temperature: 97.2 F Respiratory Rate: 14 Pulse Ox: 98 Blood Pressure: 132/66 Nailbeds:: pink - Pulse Pulse Rate: 68 Pulse Rhythm: Regular - Hypertension Blood Pressure Sitting - Left Arm: 132/66 - Blood Cholesterol/Lipids Total Cholesterol (mg/dL) Goal = less than 200 mg/dL: 126 - 12/31/2019 HDL Cholesterol (mg/dL) Goal = less than 40 mg/dL: 47 LDL Cholesterol (mg/dL) Goal = less than 70 mg/dL: 57 Triglycerides (mg/dL) Goal = less than 150 mg/dL: 109 - Diabetes Diabetic History: Type II, Medication Dependent, Insulin Dependent Nutrition Referral for Diabetes: Yes - Obesity Height: 5 ft 8 in Weight:: 263 lb Weight in Pounds: 263.0 lbs Weight Source: Standing Scale Body Mass Index (BMI): 39.9 Nutritional Referral for Obesity: Yes - Physical Inactivity Physical Inactivity: Reg Exercise 30 min/day, Recreational activity - Risk Stratification Risk Guidelines: Lowest Risk: Risk Factor for Smoking, Risk Factor for Sedentary Lifestyle, Risk Factor for Depression, Moderate Risk: Risk Factor for Dyslipidemia, Risk Factor for Diabetes - glucose 310; a1c 6.3, Risk Factor for Hypertension - 132/66, Highest Risk: Risk Factor for Obesity - 39.9 - For Smoking Smoking Risk Guidelines: Smoking Low Risk: None or quit greater than 6 months ago. Smoking Moderate Risk: Smoker or quit 6 months or less ago. Smoking High Risk: Smoker - For Dyslipidemia Dyslipidemia Risk Guidelines: Low Risk: Moderate Risk: High Risk: 15-25% fat 25.1-29% fat >/= 30% fat. <7% sat fat 7-9% sat fat >9% sat fat. <150 mg chol 150-299 mg chol >/= 300 mg chol. LDL <100 LDL 100-129 LDL >/= 130. Chol/HDL ratio <5.0 Chol/HDL ratio 5.0-6.0 Chol/HDL ratio >6.0. Triglycerides <100 Triglycerides 100-149 Triglycerides >/= 150 - For Diabetes Mellitus Diabetes Risk Guidelines: Diabetes Low Risk: HgA1c <6.5% and/or FBG <120. Diabetes Moderate Risk: HgA1c 6.6-7.9% and/or FBG 120-180. Diabetes High Risk: HgA1c >/= 8% and/or FBG >180 - For Obesity/Overweight Obesity/Overweight Risk Guidelines: Obesity Low Risk: BMI <25.0. Obesity Moderate Risk: BMI 25-29.9. Obesity High Risk: BMI >/= 30.0 - For Hypertension Hypertension Risk Guidelines: Hypertension Low Risk: Systolic <120 and Diastolic <80. Hypertension Moderate Risk: Systolic 120-139 and Diastolic 80-89. Hypertension High Risk: Systolic >/= 140 and Diastolic >/= 90 - For Sedentary Lifestyle Sedentary Lifestyle Risk Guidelines: Sedentary Lifestyle Low Risk: >/= 1,500 kcal/week. Sedentary Lifestyle Moderate Risk: 700-1,499 kcal/week. Sedentary Lifestyle High Risk: < 700 kcal/week - For Depression Depression Risk Guidelines: Depression Low Risk: Not clinically depressed. Depression Moderate Risk: Mildly depressed. Depression High Risk: Clinically depressed - Family History Family History: Family History (Last Reviewed 01/24/20 @ 12:[address] Russ Boss MD) Father CAD (coronary artery disease) Embolism Mother Kidney disease Motivation - Motivation to Participate On a scale of 1 to 10, how prepared are you to commit to attending program?: 10 - . What do you see as barriers to successfully being able to complete the program?: none What do you see as the benefits of succesfully completing the program? In other words, what do you hope to get out of participating in the program?: healthier lifestyle, building up my stamina Are there issues you are dealing with that will interfere with completing the program?: bilateral knee replacements Do you have a spouse or signficant other, family or friends who will help support you to complete the program?: yes
[2020-02-25 13:21] VITALS: BP 132/66; BMI 39.9
[2020-02-25 13:36] VITALS: BP 132/66; PULSE 68; RESP 14; TEMP 36.2; O2SAT 98; BMI 39.9
== END ==
PROVIDERS: PCP Family Medicine; Referring Provider Internal Medicine Cardiovascular Disease; Visit Provider Internal Medicine Cardiovascular Disease
DX: I48.20 Chronic atrial fibrillation, unspecified (principal); I10 Essential (primary) hypertension; E78.5 Hyperlipidemia, unspecified; E11.9 Type 2 diabetes mellitus without complications; E03.9 Hypothyroidism, unspecified; E66.01 Morbid (severe) obesity due to excess calories; Z79.01 Long term (current) use of anticoagulants; Z68.39 Body mass index [BMI] 39.0-39.9, adult
CPT/HCPCS: 36415; 85610

== ENCOUNTER 2020-03-14 10:47 | Outpatient (RCR) | payer MEDICARE, OTHER, SELFPAY ==
[2020-01-24 07:27] VITALS: BMI 39.9
[2020-02-25 13:31] LABS: International Normalized Ratio 1.9; Prothrombin Time (Protime)PT. 21.3 SECONDS (11.7-14.9)
[2020-03-07 11:29] LABS: International Normalized Ratio 1.5; Prothrombin Time (Protime)PT. 17.5 SECONDS (11.7-14.9)
[2020-03-14 12:34] LABS: International Normalized Ratio 2.3; Prothrombin Time (Protime)PT. 24.6 SECONDS (11.7-14.9)
== END 2020-03-14 18:00 | disposition home or self-care (01) ==
LOC: LAB 10:47
PROVIDERS: Family Provider Family Medicine; PCP Family Medicine; Referring Provider Internal Medicine Cardiovascular Disease; Visit Provider Internal Medicine Cardiovascular Disease
DX: I48.20 Chronic atrial fibrillation, unspecified (principal); Z79.01 Long term (current) use of anticoagulants
CPT/HCPCS: 36415; 85610

== ENCOUNTER → 2020-03-17 10:30 | Outpatient (CLI) | payer MEDICARE, OTHER, SELFPAY ==
[2020-02-25 13:21] VITALS: BMI 39.9
[2020-02-25 13:36] VITALS: BMI 39.9
[2020-03-17 13:23] LABS: T4 Total, Thyroxin 6.8 ug/dL (4.5-12.1); Thyroid Stim Hormone (TSH) 2.42 uIU/mL (0.358-3.74)
== END ==
PROVIDERS: PCP Family Medicine; Visit Provider Family Medicine
DX: E11.9 Type 2 diabetes mellitus without complications (principal); E03.9 Hypothyroidism, unspecified
CPT/HCPCS: 36415; 83036; 84436; 84443

== ENCOUNTER 2020-03-24 10:15 | Outpatient (RCR) | payer MEDICARE, OTHER, SELFPAY ==
[2020-02-25 13:21] VITALS: BMI 39.9
[2020-02-25 13:36] VITALS: BMI 39.9
== END 2020-03-24 23:59 ==
LOC: CR 10:15
PROVIDERS: PCP Family Medicine; Referring Provider Internal Medicine Cardiovascular Disease; Visit Provider Internal Medicine Cardiovascular Disease
DX: I25.10 Atherosclerotic heart disease of native coronary artery without angina pectoris (principal); Z95.5 Presence of coronary angioplasty implant and graft; I25.2 Old myocardial infarction; I25.5 Ischemic cardiomyopathy; I13.0 Hypertensive heart and chronic kidney disease with heart failure and stage 1 through stage 4 chronic kidney disease, or unspecified chronic kidney disease; I50.42 Chronic combined systolic (congestive) and diastolic (congestive) heart failure; N18.4 Chronic kidney disease, stage 4 (severe); I48.11 Longstanding persistent atrial fibrillation; E11.22 Type 2 diabetes mellitus with diabetic chronic kidney disease; E78.5 Hyperlipidemia, unspecified; E11.40 Type 2 diabetes mellitus with diabetic neuropathy, unspecified; E03.9 Hypothyroidism, unspecified; Z79.01 Long term (current) use of anticoagulants
CPT/HCPCS: 93798

== ENCOUNTER 2020-04-23 10:15 | Outpatient (RCR) | payer MEDICARE, OTHER, SELFPAY ==
[2020-02-25 13:21] VITALS: BMI 39.9
[2020-02-25 13:36] VITALS: BMI 39.9
--- NOTE | 2020-03-26 13:56 | PCM.CR.ITP ---
Diagnosis - General Information Admitting Diagnosis: AMI < 12 months - Education/Goals Cardiac Rehabilitation Goals: 1. Maintain the individual as the primary focus of care. 2. To improve the patient's quality of life. 3. Identification of cardiac risk factors and provide cardiac risk factor management. 4. Enhance the psychosocial status of the patient. 5. Reconditioning enough to allow the patient to resume customary activities. 6. Control symptoms of cardiac disease Scale for measuring improvement of personal goals: Enter appropriate number in Comments. 2 = Unchanged. 3 = Slightly Better. 4 = Moderate Improvement. 5 = Met my Goal Exercise - 30-day Assessment - Visit Date of Eval: 03/26/20 Session #:: 11 - Physician Prescribed Exercise Modalities: NuStep Frequency: 3x/week for 12 weeks [36 sessions] Intensity: 60-80% of age predicted maximum heart rate reserve Current METSs:: 3 Target Heart Rate:: 85-114 Current RPE:: 12 Maximum Excercise HR:: 97 Resting Blood Pressure: 132/62 Maximum Exercise Blood Pressure: 162/80 EKG Type: A-fib - Outcomes & Goals Goals:: Verbalizes understanding of THR, RPE & goal METS by session 6, Documents in home exercise log/reports 30 min aerobic 5 day/wk by DC, Demonstrates accurate pulse taking by DC, Other additional outcome/goals: see below - Intervention & Plan Exercise Program Goals: Instruct on personal THR & RPE, Instruct on MET level & personal MET goal, Show patient to take own pulse /validate performance until accurate, Instruct on home exercise, Other additional plan/int - 30-day Reassessments 30 day Reassessments:: Progressing - Physical Activity Home Exercise Physical Activity - Home Exercise: Safe Exercise, Warm-up, Self-monitoring, Cool-Down, Home Exercise > 30 min Daily, Sitting Time <3 hours/daily - Outcomes & Goals Outcomes/Goals: Demonstrates correct Warm-up/exercise Cool-Down (S3) if = 2.5 METs, Verbalizes symptoms of exercise intolerance by Session 3 (S3), Demonstrate safe equipment use (S3) & follows exercise prescrition (6), Other: See below - Intervention & Plan Plan/Intervention: Instruct warm-up & cool-down if exercising at > 2 METs, Instruct on symptoms of exercise intolerance & actions to take, Instruct & monitor on saf, Assess intial functional capacity & safety risk, Other See below - 30-day Reassessments 30 day Reassessments:: Progressing Nutrition - 30-Day Assessment - Program Goals Nutrition Program Goals: LDL <100 optimal. 100 - 129 Near optimal. 130 - 159 Borderline High. 160 - 189 High. Total Cholesterol <200 desirable. 200 - 239 Borderline High. >/= 240 High. HDL < 40 Low >/=60 High. Triglycerides <150 desirable. <199 optimal. VlDL 5 - 40. HgbA1C <7%. BMI <25 - Visit Date of Assessment:: 03/26/20 Session #:: 11 - Cholesterol/Lipids Outcomes/Goals: Pt IDs own risk factors & lifestyle modifications by Session 10, Verbalizes symptoms of angina & response by session 3., Pt independently manages, Other Additional Outcomes/Goals: Intervention/Plan: Advocate for lipid panel cholesterol medication if applicable, Instruct on personal lipid levels & lipid goals/NCEP guidelines, Instruct on cholesterol, Other additional plan/int - Weight Mgt (Other Care) Outcomes/Goals: Pt sets, maintains & shows weight loss goal & trend during rehab, Other additional outcomes/goals Intervention/Plan: Instruct on ideal BMI & set weight loss goal w/patient, Assist pt to ID & incorporate diet changes for weight loss by S9, Refer to Structured Weight Loss program as appropriate, Encourage goal of using 250-300dcal per session for weight loss, Other additional plan/interventions 30 day Reassessments:: Progressing - Healthy Eating Habits Will attend diet classes:: Yes Outcomes/Goals:: Consume diet rich in vegs,fruits,whole grain/high fiber,fish,lean meat, Limit sat/trans fats,cholesterol & added salts & sugars, Other additional outcome/goals: Intervention/Plan:: Assess current eating habits, Other Additional plan/interventions 30-day Reassessments:: Progressing Medical- 30-Day Assessment - Visit Date of Eval: 03/26/20 Session #:: 11 - Medication Compliance Preventative Medication(s):: Aspirin, Clopidogrel/P2Y12 inhibit, Ticagrelor/P2Y12 inhibitor, Statin/lipid, Beta carl H/O mental health issues: depression, anxiety, or addiction?: No Doesn?t believe in the benefits of treatment?: No Believes medications are unnecessary or harmful?: No Has a concern about medication side effects?: No Expresses concern over the cost of medications?: No Outcomes/Goals: Verbalizes medications,desired effect & common side effects @ DC, Pt self-reports following medication regimen, Keeps card in wallet w/medications listed by DC, Other additional outcome/goals: Interventions/plans: Instruct on medication effects & side effects, Review medication list w/patient every two weeks, Instruct importance of taking meds as ordered & assist problem solving, Other additional 30-day Reassessments:: Progressing - Tobacco Use Do you use smokeless tobacco?: No 30-day Reassessments:: Progressing - Hypertension Hypertension Diagnosis:: Hypertension ICD-10 I10 Resting Blood Pressure:: 132/62 [employer] Association Hypertension Guidelines: [employer] Heart Association Hypertension Guidelines. Normal BP Less than 120/80. Elevated BP 120/80. Hypertension Stage 1: BP 130-139/80-89. Hypertesnion Stage 2: BP 140 or higher/90 or higher. Hypertension Crisis: BP higher than 180/120 Outcomes/Goals: Able to verbalize/achieve optimal blood pressure <130/80, Incorporates diet changes & exercise for blood pressure control by DC, Other additional outcomes/goals Interventions/plan: Instruct on optimal blood pressure, hypertension & medications, Instruct on effects of sodium, alcohol, stress, exercise &hypertension, Other additional plan/interventions 30 day Reassessments:: Progressing - Tobacco Cessation Referral Smoking Cessation Referral:: No Individual Education/Counseling:: No Education Schedule Given:: Yes Psychosocial - 30-Day Assess - VIsit Date of Eval: 03/26/20 Session #:: 11 - Target Goals Target Goals: Assess presence or absence of depression. Using a valid screening tool, maximizes coping skills. Positive support system - Psychosocial Test phq-9 Severity: Severity. 1-4 Minimal Depression. 5-9 Mild Depression. 10-14 Moderate Depression. 15-19 Moderately Sever Depression. 20-27 Severe Depression. Rule: - Outcomes/Goals: See list Psychosocial Outcomes/Goals:: ID's personal stressors & 2 strategies to manage stress by discharge, Other Additional outcome/goals: - Intervention/Plan: See List Interventions/Plan:: Assess stressors,coping strategies & signs of derpression on admission, Instruct/assist pt to develop coping & personal stress Mgt strategies, Refer to Behavioral Health if appropriate, Refer to Physician if appropriate, Instruct patient to recognize signs & symptoms of depression, Instruct patient to recog, Other additional plan/intervention - 30-day Reassessments: 30 day Reassessments:: Progressing
[2020-03-26 14:03] VITALS: BP 132/62
== END 2020-04-24 23:59 ==
LOC: CR 10:15
PROVIDERS: PCP Family Medicine; Referring Provider Internal Medicine Cardiovascular Disease; Visit Provider Internal Medicine Cardiovascular Disease
DX: I25.10 Atherosclerotic heart disease of native coronary artery without angina pectoris (principal); I25.5 Ischemic cardiomyopathy; I13.0 Hypertensive heart and chronic kidney disease with heart failure and stage 1 through stage 4 chronic kidney disease, or unspecified chronic kidney disease; I50.42 Chronic combined systolic (congestive) and diastolic (congestive) heart failure; I25.2 Old myocardial infarction; I48.11 Longstanding persistent atrial fibrillation; E11.22 Type 2 diabetes mellitus with diabetic chronic kidney disease; N18.4 Chronic kidney disease, stage 4 (severe); E78.5 Hyperlipidemia, unspecified; E11.40 Type 2 diabetes mellitus with diabetic neuropathy, unspecified; E03.9 Hypothyroidism, unspecified; Z95.5 Presence of coronary angioplasty implant and graft; Z79.01 Long term (current) use of anticoagulants
CPT/HCPCS: 93798

== ENCOUNTER 2020-04-23 12:28 | Outpatient (RCR) | payer MEDICARE, OTHER, SELFPAY ==
[2020-02-25 13:21] VITALS: BMI 39.9
[2020-02-25 13:36] VITALS: BMI 39.9
[2020-04-23 13:19] LABS: Protein, Urine (Random) 260.8 mg/dL (<11.9); Protein:Creat Ratio 3632 mg/g CRE (0-200)
[2020-04-23 13:26] LABS: Prothrombin Time (Protime)PT. 37.1 SECONDS (11.7-14.9)
[2020-04-23 13:31] LABS: International Normalized Ratio 3.8
[2020-04-23 13:43] LABS: Anion Gap 8 (5-15); BUN 50 mg/dL (7-18); BUN/Creat Ratio 18.7 RATIO (10-20); Calcium,Total 9.2 mg/dL (8.5-10.1); Chloride 112 mmol/L (98-107); Creatinine, Serum 2.67 mg/dL (0.70-1.30); EST Glomerular Filtration Rate 25 mL/min (>60); Est Glom Filt Rate - Afr Amer 30 mL/min (>60); Glucose 151 mg/dL (74-106); Potassium 4.3 mmol/L (3.5-5.1); Sodium Level 141 mmol/L (136-145)
== END 2020-04-23 18:00 | disposition home or self-care (01) ==
LOC: LAB 12:28
PROVIDERS: Internal Medicine Nephrology; Family Provider Family Medicine; PCP Family Medicine; Referring Provider Internal Medicine Cardiovascular Disease; Visit Provider Internal Medicine Cardiovascular Disease
DX: I48.20 Chronic atrial fibrillation, unspecified (principal); Z79.01 Long term (current) use of anticoagulants; N18.4 Chronic kidney disease, stage 4 (severe); D50.9 Iron deficiency anemia, unspecified
CPT/HCPCS: 36415; 80048; 82570; 84156; 85610

== ENCOUNTER 2020-05-09 10:39 | Outpatient (RCR) | payer MEDICARE, OTHER, SELFPAY ==
[2020-02-25 13:21] VITALS: BMI 39.9
[2020-04-23 09:05] VITALS: BMI 40.3
[2020-05-05 13:05] VITALS: BMI 40.1
[2020-05-09 11:34] LABS: International Normalized Ratio 2.3; Prothrombin Time (Protime)PT. 24.4 SECONDS (11.7-14.9)
== END 2020-05-09 18:00 | disposition home or self-care (01) ==
LOC: LAB 10:39
PROVIDERS: Family Provider Family Medicine; PCP Family Medicine; Referring Provider Internal Medicine Cardiovascular Disease; Visit Provider Internal Medicine Cardiovascular Disease
DX: I48.11 Longstanding persistent atrial fibrillation (principal); Z79.01 Long term (current) use of anticoagulants
CPT/HCPCS: 36415; 85610

== ENCOUNTER 2020-05-23 10:15 | Outpatient (RCR) | payer MEDICARE, OTHER, SELFPAY ==
[2020-02-25 13:21] VITALS: BMI 39.9
[2020-04-23 09:05] VITALS: BMI 40.3
[2020-04-25 00:32] VITALS: BP 132/62
== END 2020-05-25 23:59 ==
LOC: CR 10:15
PROVIDERS: PCP Family Medicine; Referring Provider Internal Medicine Cardiovascular Disease; Visit Provider Internal Medicine Cardiovascular Disease
DX: I25.10 Atherosclerotic heart disease of native coronary artery without angina pectoris (principal); I25.2 Old myocardial infarction; I25.5 Ischemic cardiomyopathy; I13.0 Hypertensive heart and chronic kidney disease with heart failure and stage 1 through stage 4 chronic kidney disease, or unspecified chronic kidney disease; I50.42 Chronic combined systolic (congestive) and diastolic (congestive) heart failure; I48.11 Longstanding persistent atrial fibrillation; E11.22 Type 2 diabetes mellitus with diabetic chronic kidney disease; N18.4 Chronic kidney disease, stage 4 (severe); E78.5 Hyperlipidemia, unspecified; E11.40 Type 2 diabetes mellitus with diabetic neuropathy, unspecified; E03.9 Hypothyroidism, unspecified; Z95.5 Presence of coronary angioplasty implant and graft; Z79.01 Long term (current) use of anticoagulants
CPT/HCPCS: 93798

== ENCOUNTER 2020-06-02 10:15 | Outpatient (RCR) | payer MEDICARE, OTHER, SELFPAY ==
[2020-02-25 13:21] VITALS: BMI 39.9
[2020-05-05 13:05] VITALS: BMI 40.1
[2020-05-26 00:29] VITALS: BP 132/62
--- NOTE | 2020-05-26 08:01 | PCM.CR.ITP ---
Exercise - 90-day Assessment - Visit Date of Eval: 05/26/20 Session #:: 33 - Physician Prescribed Exercise Modalities: NuStep Frequency: 3x/week for 12 weeks [36 sessions] Intensity: 60-80% of age predicted maximum heart rate reserve Current METSs:: 4.0 unchanged Target Heart Rate:: 85-114 Current RPE:: 13-14 Maximum Excercise HR:: 85 Resting Blood Pressure: 148/82 Maximum Exercise Blood Pressure: 156/68 EKG Type: Atrial fibrillation w rare PVCs - Outcomes & Goals Goals:: Verbalizes understanding of THR, RPE & goal METS by session 6, Documents in home exercise log/reports 30 min aerobic 5 day/wk by DC, Demonstrates accurate pulse taking by DC - Intervention & Plan Exercise Program Goals: Instruct on personal THR & RPE, Instruct on MET level & personal MET goal, Show patient to take own pulse /validate performance until accurate, Instruct on home exercise - 30-day Reassessments 30 day Reassessments:: Progressing - Physical Activity Home Exercise Physical Activity - Home Exercise: Safe Exercise, Warm-up, Self-monitoring, Cool-Down, Home Exercise > 30 min Daily, Sitting Time <3 hours/daily - Outcomes & Goals Outcomes/Goals: Demonstrates correct Warm-up/exercise Cool-Down (S3) if = 2.5 METs, Verbalizes symptoms of exercise intolerance by Session 3 (S3), Demonstrate safe equipment use (S3) & follows exercise prescrition (6) - Intervention & Plan Plan/Intervention: Instruct warm-up & cool-down if exercising at > 2 METs, Instruct on symptoms of exercise intolerance & actions to take, Instruct & monitor on saf, Assess intial functional capacity & safety risk - 30-day Reassessments 30 day Reassessments:: Progressing Nutrition - 90-Day Assessment - Program Goals Nutrition Program Goals: LDL <100 optimal. 100 - 129 Near optimal. 130 - 159 Borderline High. 160 - 189 High. Total Cholesterol <200 desirable. 200 - 239 Borderline High. >/= 240 High. HDL < 40 Low >/=60 High. Triglycerides <150 desirable. <199 optimal. VlDL 5 - 40. HgbA1C <7%. BMI <25 Patient has diagnosis of Hyperlipidemia (ICD E78)?: Yes - Visit Date of Assessment:: 05/26/20 Session #:: 33 - no recent labs - Cholesterol/Lipids Determine presence & major risk factors that modify LDL goal: Hypertension or hypertensive medication, Family history of premature CHD in Male < 55 years: female <65 yearsFa, Age men > 45 years; women >/= 55 years Outcomes/Goals: Pt IDs own risk factors & lifestyle modifications by Session 10, Verbalizes symptoms of angina & response by session 3., Pt independently manages Intervention/Plan: Instruct on personal lipid levels & lipid goals/NCEP guidelines, Instruct on cholesterol Referral to dietitian:: No 30-day Reassessments:: Progressing - Diabetes (Other Core Measures) Diabetes Type: Diagnosis Type II ICD-10 E11 Fasting blood glucose:: 210 Hgb A1C (4.2 - 6.3): 6.3 Insulin dependent injection/pump?: Yes Non-Insulin Dependent?: Yes Do you monitor your blood sugar at home?: Yes Referral to Diabetic Clinic:: Yes Outcomes/Goals:: Able to state symptoms of, Able to state, Able to state Intervention/Plan:: Instruct on, Refer to, Instruct on 30-day Reassessments:: Progressing - Weight Mgt (Other Care) Not Applicable: No Height: 5 ft 8 in Weight:: 263 lb BMI: 39.9 Diagnosis Overweight/Obesity BMI> 30% ICD-10 E66: Yes Diagnosis High BMI/Morbid Obesity BMI> 35% ICD-10 Z68: Yes Outcomes/Goals: Pt sets, maintains & shows weight loss goal & trend during rehab Intervention/Plan: Instruct on ideal BMI & set weight loss goal w/patient, Assist pt to ID & incorporate diet changes for weight loss by S9, Refer to Structured Weight Loss program as appropriate, Encourage goal of using 250-300dcal per session for weight loss 30 day Reassessments:: Not Met - patient gaining weight instead of losing - Healthy Eating Habits Will attend diet classes:: Yes Outcomes/Goals:: Consume diet rich in vegs,fruits,whole grain/high fiber,fish,lean meat, Limit sat/trans fats,cholesterol & added salts & sugars Intervention/Plan:: Assess current eating habits 30-day Reassessments:: Not Met - Education Gave educational materials for:: Signs & symptoms of hypoglycemia, Signs & symptoms of hyperglycemia, Relate diabetes to coronary artery disease, Healthy eating Medical- 90-Day Assessment - Visit Date of Eval: 05/26/20 Session #:: 33 - Medication Compliance Preventative Medication(s):: Aspirin, Clopidogrel/P2Y12 inhibit, Statin/lipid, Beta carl, Warfarin/Coumadin H/O mental health issues: depression, anxiety, or addiction?: No Doesn?t believe in the benefits of treatment?: No Believes medications are unnecessary or harmful?: No Has a concern about medication side effects?: No Expresses concern over the cost of medications?: No Outcomes/Goals: Verbalizes medications,desired effect & common side effects @ DC, Pt self-reports following medication regimen, Keeps card in wallet w/medications listed by DC Interventions/plans: Instruct on medication effects & side effects, Review medication list w/patient every two weeks, Instruct importance of taking meds as ordered & assist problem solving 30-day Reassessments:: Progressing - Tobacco Use Tobacco Use: Non-smoker - Hypertension Hypertension Diagnosis:: Hypertension ICD-10 I10 Resting Blood Pressure:: 156/68 - uncontrolled w/medications [place] [employer] Hypertension Guidelines: [place] [employer] Hypertension Guidelines. Normal BP Less than 120/80. Elevated BP 120/80. Hypertension Stage 1: BP 130-139/80-89. Hypertesnion Stage 2: BP 140 or higher/90 or higher. Hypertension Crisis: BP higher than 180/120 Peak Exercise Blood Pressure:: 158/72 Outcomes/Goals: Able to verbalize/achieve optimal blood pressure <130/80, Incorporates diet changes & exercise for blood pressure control by DC Interventions/plan: Instruct on optimal blood pressure, hypertension & medications, Instruct on effects of sodium, alcohol, stress, exercise &hypertension 30 day Reassessments:: Not Met - Tobacco Cessation Referral Smoking Cessation Referral:: No Individual Education/Counseling:: Yes Education Schedule Given:: Yes Psychosocial - 90-Day Assess - VIsit Date of Eval: 05/26/20 Session #:: 33 Not Applicable: Yes History of previous Mental disease:: No - Target Goals Target Goals: Assess presence or absence of depression. Using a valid screening tool, maximizes coping skills. Positive support system - Psychosocial Test Tool Used:: PHQ-9 Questionnaire phq-9 Severity: Severity. 1-4 Minimal Depression. 5-9 Mild Depression. 10-14 Moderate Depression. 15-19 Moderately Sever Depression. 20-27 Severe Depression. Rule: - Referral to Behavioral Health PS - Interventions: Yes Attend Stress Management Classes, No Referral to Behavioral Health if PHQ-9 score >9:, [facility], No Referral to Physician if PHQ-9 if score is 5-9: - Outcomes/Goals: See list Psychosocial Outcomes/Goals:: ID's personal stressors & 2 strategies to manage stress by discharge - Intervention/Plan: See List Interventions/Plan:: Assess stressors,coping strategies & signs of derpression on admission, Instruct/assist pt to develop coping & personal stress Mgt strategies, Instruct patient to recognize signs & symptoms of depression, Instruct patient to recog - 30-day Reassessments: 30 day Reassessments:: Progressing Patient Health Questionnaire 90-Day Re-eval Assessment 1. Little interest or pleasure in doing things: Not at all 2. Feeling down, depressed, or hopeless: Not at all 3. Trouble falling or staying asleep, or sleeping too much: Not at all 4. Feeling tired or having little energy: Several days 5. Poor appetite or overeating: Not at all 6. Feeling bad about yourself -- or that you are a failure or have let yourself or your family down: Not at all 7. Trouble concentrating on things, such as reading the newspaper or watching television: Not at all 8. Moving or speaking so slowly that other people could have noticed. Or the opposite - being so fidgety or restless that you have been moving around a lot more than usual: Not at all 9. Thoughts that you would be better off , or of hurting yourself in some way: Not at all How difficult have these problems made it for you to do your work, take care of things at home, or get along with other people?: Not difficult at all Total Score: 1 Self-Efficacy 90-Day Re-eval Assessment We would like to know how confident you are in doing certain activities. Please select your confidence level for:: Select your confidence level for the following using the scale 1-10 where 1 is not at all confident and 10 is totally confident. Your score is the average of all 6 responses. Fatigue: How confident are you that you can keep the fatigue caused by your disease from interfering with the things you want to do? Select Number: 8 Physical Discomfort or Pain: How confident are you that you can keep the physical discomfort or pain of your disease from interfering with the things you want to do? Select Number: 9 Emotional Distress: How confident are you that you can keep the emotional distress caused by your disease from interfering with the things you want to do? Select Number: 9 Other Symptoms or Health Problems: How confident are you that you can keep other symptoms or health problems from interfering with the things you want to do? Select Number: 10 Different Tasks and Activities: How confident are you that you can do the different tasks and activities needed to manage your health condition so as to reduce your need to see a doctor? Select Number: 10 Medication: How confident are you that you can do things other than just taking medication to reduce how much your illness affects your everyday life? Select Number: 10 Total Score:: 9
[2020-05-26 08:09] VITALS: BP 148/82; BP 156/68; BP 158/72; BMI 39.9
== END 2020-06-22 23:59 ==
LOC: CR 10:15
PROVIDERS: PCP Family Medicine; Referring Provider Internal Medicine Cardiovascular Disease; Visit Provider Internal Medicine Cardiovascular Disease
DX: I25.10 Atherosclerotic heart disease of native coronary artery without angina pectoris (principal); I25.5 Ischemic cardiomyopathy; I13.0 Hypertensive heart and chronic kidney disease with heart failure and stage 1 through stage 4 chronic kidney disease, or unspecified chronic kidney disease; I50.42 Chronic combined systolic (congestive) and diastolic (congestive) heart failure; I25.2 Old myocardial infarction; I48.11 Longstanding persistent atrial fibrillation; E11.22 Type 2 diabetes mellitus with diabetic chronic kidney disease; N18.4 Chronic kidney disease, stage 4 (severe); E78.5 Hyperlipidemia, unspecified; E11.40 Type 2 diabetes mellitus with diabetic neuropathy, unspecified; E03.9 Hypothyroidism, unspecified; Z95.5 Presence of coronary angioplasty implant and graft; Z79.01 Long term (current) use of anticoagulants
CPT/HCPCS: 93798

== ENCOUNTER → 2020-06-17 12:19 | Outpatient (CLI) | payer MEDICARE, OTHER, SELFPAY ==
[2020-05-05 13:05] VITALS: BMI 40.1
[2020-05-26 08:09] VITALS: BMI 39.9
[2020-06-17 15:22] LABS: Absolute Lymphocyte Count 0.33 X10^3/uL (0.83-4.51); Absolute Neutrophil Count 1.9 X10^3/uL (2.0-7.7); Basophil# 0.01 X10^3/uL; Basophil% 0.4 % (0-1); Eosinophil# 0.03 X10^3/uL; Eosinophils% 1.2 % (0-5); Hematocrit 32.4 % (40-54); Hemoglobin 10.2 g/dL (13.0-16.5); Lymphocyte # 0.33 X10^3/ul (4.0); Lymphocyte % 13.1 % (19-41); Mean Corp Hgb Conc 31.5 g/dL (32-36); Mean Corpuscular Hgb 26.5 pg (27.0-32.0); Mean Corpuscular Volume 84.2 fL (80-94); Mean Platelet Vol. 11.1 fl (6.2-12.0); Monocyte# 0.24 X10^3/uL; Monocyte% 9.6 % (0-10); NRBC Flagged by Analyzer 0 % (0-5); Neutrophil # 1.89 X10^3/uL (2.7-7.7); Neutrophil % 75.3 % (47-70); POSITIVE COUNT YES; POSITIVE DIFFERENTIAL YES; Platelet Count 90 K/mm3 (150-450); RBC Distribution Width CV 15.2 % (11.6-14.6); RBC Distribution Width SD 46.3 fl (35.1-43.9); Red Blood Count 3.85 M/mm3 (4.6-6.2); White Blood Count 2.5 K/mm3 (4.4-11.0)
[2020-06-17 15:28] LABS: Differential Indicated SCAN CRITERIA MET
[2020-06-17 15:42] LABS: International Normalized Ratio 2.8; Prothrombin Time (Protime)PT. 29.2 SECONDS (11.7-14.9)
[2020-06-17 15:47] LABS: BNP,B-Type NATRIURETIC PEPTIDE 1419.5 pg/mL (0-100)
[2020-06-17 15:55] LABS: ALB/GLOB Ratio 0.7 RATIO (0.9-2.4); AST(SGOT) 43 U/L (15-37); Alanine Aminotransfer ALT/SGPT 29 U/L (16-61); Albumin, Serum 2.9 g/dL (3.2-5.0); Alkaline Phosphatase 116 U/L (45-117); Anion Gap 9 (5-15); BUN 54 mg/dL (7-18); BUN/Creat Ratio 19.8 RATIO (10-20); Calcium,Total 8.6 mg/dL (8.5-10.1); Chloride 108 mmol/L (98-107); Creatinine, Serum 2.73 mg/dL (0.70-1.30); EST Glomerular Filtration Rate 24 mL/min (>60); Est Glom Filt Rate - Afr Amer 29 mL/min (>60); Globulin 3.9 g/dL (2.2-4.2); Glucose 91 mg/dL (74-106); Potassium 4.1 mmol/L (3.5-5.1); Protein, Total 6.8 g/dL (6.4-8.2); Sodium Level 136 mmol/L (136-145); T4 Total, Thyroxin 7.4 ug/dL (4.5-12.1); Thyroid Stim Hormone (TSH) 3.01 uIU/mL (0.358-3.74)
[2020-06-17 15:57] LABS: Hemoglobin A1c 5.8 % (3.8-5.6)
[2020-06-17 16:23] LABS: Differential Comment SCANNED; Platelet Estimate MOD DEC (ADEQ)
[2020-06-18 12:55] LABS: Pathologist Review Reviewed
== END ==
PROVIDERS: Internal Medicine Cardiovascular Disease; PCP Family Medicine; Referring Provider Family Medicine; Visit Provider Family Medicine
DX: E11.9 Type 2 diabetes mellitus without complications (principal); I25.10 Atherosclerotic heart disease of native coronary artery without angina pectoris; I10 Essential (primary) hypertension; E03.9 Hypothyroidism, unspecified; I48.11 Longstanding persistent atrial fibrillation; R06.00 Dyspnea, unspecified; Z79.01 Long term (current) use of anticoagulants
CPT/HCPCS: 36415; 80053; 83036; 83880; 84436; 84443; 85025; 85610

== ENCOUNTER 2020-06-18 11:29 | Emergency (ER) | payer MEDICARE, OTHER, SELFPAY ==
[2020-05-05 13:05] VITALS: BMI 40.1
[2020-05-26 08:09] VITALS: BMI 39.9
[2020-06-18 11:30] VITALS: BP 157/100; PULSE 94; RESP 17; TEMP 36.5; O2SAT 93; BMI 40.2
--- NOTE | 2020-06-18 11:58 | EKG12_ITS ---
Test Reason : ABN LABS Blood Pressure : / mmHG Vent. Rate : 086 BPM Atrial Rate : 070 BPM P-R Int : 000 ms QRS Dur : 094 ms QT Int : 412 ms P-R-T Axes : 000 -29 124 degrees QTc Int : 493 ms Atrial fibrillation Inferior infarct , age undetermined Anterior infarct , age undetermined Abnormal ECG Confirmed by SHIMA GOMEZ, ARELI ([id number]), image editor KIMMY SAWYER ([id number]) on 06/23/2020 9:35:23 AM Referred By: CHON Confirmed By:ANGEL RONQUILLO MD
--- NOTE | 2020-06-18 11:59 | ED.DCSUM_ITS ---
History of Present Illness Chief Complaint: Abn Labs Informant: Patient Narrative: 80-year-old male with history of coronary disease presents for the evaluation of abnormal labs. He tells me he went saw his doctor yesterday and had blood work done for symptoms that he was having which included mild rhinorrhea cough mild shortness of breath and fatigue. He states one of his noises hospitalized with Covid. Per that work-up he had a beta natruretic peptide which was around 1300. He does have chronic kidney disease with baseline creatinine of 2.5-3. 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 He wears CPAP at night. He denies any significant leg swelling. No fevers. He wonders if he could have caught Covid even though he had a vaccination last week. Patient states the gum that he is chewing taste bad and it should normally taste good to him. - Past Medical History (1) Atherosclerotic heart disease of [place] coronary artery without angina pectoris Status: Chronic (2) Chronic combined systolic and diastolic CHF (congestive heart failure) Status: Chronic (3) Chronic renal failure, stage 4 (severe) Status: Chronic (4) Diabetic neuropathy associated with type 2 diabetes mellitus Status: Chronic (5) Essential (primary) hypertension Status: Chronic (6) History of coronary artery stent placement Status: Chronic Comment: BMS to Mid RCA w/ 3.5 x 24 mm [employer] Stent 04/03/2003; BMS to Distal RCA w/ 3.0 x 18 mm [employer] Stent 06/04/2004; POBA-ISR Prox and Distal RCA 06/03/15 (7) Hyperlipidemia Status: Chronic (8) Hypothyroidism Status: Chronic (9) Ischemic cardiomyopathy Status: Chronic Comment: 40% EF with wall motion abnormalities on cardiac catheterization on 01/03/2020 (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 Denies: Chills, Fever, Sweats Eyes: Denies: Visual changes - bilaterally, Diplopia ENT: Reports: Rhinorrhea, - - Change in taste. Denies: Sore throat Cardiovascular: Denies: Chest pain, Palpitations Respiratory: Reports: Dyspnea, Cough. Denies: Dyspnea on exertion Gastrointestinal: Denies: Abdominal pain, Nausea, Vomiting, Diarrhea, Melena, Hematochezia Genitourinary: Denies: Dysuria, Hematuria, Frequency Musculoskeletal: Denies: Back pain, Extremity Pain Skin: Denies: Rash, Wounds Neurological: Denies: Headache, Weakness, Numbness Physical Exam Vital Signs/Narrative: Vital Signs Temp Pulse Resp BP Pulse Ox 06/18/20 11:30 97.7 F L 94 17 157/100 H 93 Inital Vital Signs reviewed: Yes General: Well nourished, Well developed, Obese, No Acute Distress Head: Normocephalic, Atraumatic Eyes: Perrl, EOMI ENT: Moist mucous membranes, No rhinorrhea Neck: Supple, Nontender Cardiovascular: No murmurs, Irregular - Irregularly irregular rhythm Respiratory: No distress, CTA bilaterally, Chest nontender Abdomen: Soft, Nontender, Nondistended, Normal bowel sounds Back: Nontender, Normal Inspection Extremities: Nontender, Edema - Symmetric nonpitting edema of the lower extremity Skin: Normal color, No rash Neurological: Alert, Oriented x3, Cranial nerves II-XII grossly intact, Normal Strength, Normal Sensation Psychological: Normal affect, Normal Mood Diagnostic/Tx/Re-eval Clinical Impression(s) from Imaging Studies Chest X-Ray 06/18/20 12:50 IMPRESSION: Mild degree of elevation of the right hemidiaphragm with increased markings at the lung bases suggestive of mild scarring. There has been improvement as compared to prior study. Electronically Signed: Cornel Powers MD at 13:13 EST , Service support , Laboratory Last Values WBC 2.6 K/mm3 (4.4-11.0) L 06/18/20 13:13 RBC 3.88 M/mm3 (4.6-6.2) L 06/18/20 13:13 Hgb 10.5 g/dL (13.0-16.5) L 06/18/20 13:13 Hct 32.4 % (40-54) L 06/18/20 13:13 MCV 83.5 fL (80-94) 06/18/20 13:13 MCH 27.1 pg (27.0-32.0) 06/18/20 13:13 MCHC 32.4 g/dL (32-36) 06/18/20 13:13 RDW Std Deviation 45.6 fl (35.1-43.9) H 06/18/20 13:13 RDW Coeff of Moni 15.1 % (11.6-14.6) H 06/18/20 13:13 Plt Count 97 K/mm3 (150-450) L 06/18/20 13:13 MPV 9.4 fl (6.2-12.0) 06/18/20 13:13 Immature Gran % (Auto) 0.400 % (0.0-0.9) 06/18/20 13:13 Neut % (Auto) 76.7 % (47-70) H 06/18/20 13:13 Lymph % (Auto) 12.0 % (19-41) L 06/18/20 13:13 [place] % (Auto) 9.3 % (0-10) 06/18/20 13:13 Eos % (Auto) 1.2 % (0-5) 06/18/20 13:13 Baso % (Auto) 0.4 % (0-1) 06/18/20 13:13 Absolute Neuts (auto) 2.0 X10^3/uL (2.0-7.7) 06/18/20 13:13 Absolute Lymphs (auto) 0.31 X10^3/uL (0.83-4.51) L 06/18/20 13:13 Nucleated RBC % 0 % (0-5) 06/18/20 13:13 Differential Comment COMMENT 06/18/20 13:13 Diff Path Review August06/18/20 13:13 Platelet Estimate MOD DEC (ADEQ) 06/18/20 13:13 PT 36.8 SECONDS (11.7-14.9) H 06/18/20 13:13 INR 3.7 H* 06/18/20 13:13 Sodium 137 mmol/L (136-145) 06/18/20 13:13 Potassium 3.8 mmol/L (3.5-5.1) 06/18/20 13:13 Chloride 107 mmol/L (98-107) 06/18/20 13:13 Carbon Dioxide 23.0 mmol/L (21.0-32.0) 06/18/20 13:13 Anion Gap 7 (5-15) 06/18/20 13:13 BUN 47 mg/dL (7-18) H 06/18/20 13:13 Creatinine 2.63 mg/dL (0.70-1.30) H 06/18/20 13:13 Estim Creat Clear Calc 22.40 ml/min 06/18/20 13:13 Est GFR (MDRD) Af Amer 30 mL/min (>60) L 06/18/20 13:13 Est GFR (MDRD) Non-Af 25 mL/min (>60) L 06/18/20 13:13 BUN/Creatinine Ratio 17.9 RATIO (10-20) 06/18/20 13:13 Glucose 86 mg/dL (74-106) 06/18/20 13:13 Calcium 8.6 mg/dL (8.5-10.1) 06/18/20 13:13 Total Bilirubin 0.80 mg/dL (0.20-1.00) 06/18/20 13:13 AST 38 U/L (15-37) H 06/18/20 13:13 ALT 27 U/L (16-61) 06/18/20 13:13 Alkaline Phosphatase 117 U/L (45-117) 06/18/20 13:13 Troponin I 0.058 ng/mL (<0.045) H 06/18/20 13:13 B-Natriuretic Peptide 1497.1 pg/mL (0-100) H 06/18/20 13:13 Total Protein 6.8 g/dL (6.4-8.2) 06/18/20 13:13 Albumin 2.8 g/dL (3.2-5.0) L 06/18/20 13:13 Globulin 4.0 g/dL (2.2-4.2) 06/18/20 13:13 Albumin/Globulin Ratio 0.7 RATIO (0.9-2.4) L 06/18/20 13:13 - Medical Decision Making Patient has some rhinorrhea he had some shortness of breath he tells me that his gums taste bad and he has a leukopenia. However his COVID-19 antigen test is negative. This could be a false negative so advised him he should still self isolate till he feels better though he has had some the symptoms for 2 weeks. His creatinine seems to be near baseline at 2.6. His BNP is elevated however his chest x-ray is clear. He has normal orthopnea or significant swelling the legs and his breathing is better today than it was yesterday after taking 2 additional Lasix. I spoke with Dr. Treviño and with Dr. Boss and we will continue some oral Lasix at home. Return if worsening or concerns ED Disposition - Plan for ED Patient: Disposition: Home or Assisted Living Diagnosis: Chronic renal failure, stage 4 (severe), Chronic combined systolic and diastolic CHF (congestive heart failure), URI (upper respiratory infection) Instructions: ED Heart Failure, Congestive (CHF) Referrals: Masha Treviño MD [Primary Care Provider] - 1 Week if not improving Additional Instructions: I would recommend taking Lasix 40 mg twice a day for the next 4 days. Return if worsening or concerns
--- NOTE | 2020-06-18 12:50 | RAD_ITS ---
STUDY: X-RAY CHEST REASON FOR EXAM: Male, 80 years old. Dyspnea TECHNIQUE: Single AP portable view of the chest. COMPARISON: Comparison is made with prior study dated 01/08/2020. FINDINGS: Mild elevation of the right hemidiaphragm. Mild degree of residual increased linear markings at the lung bases with areas of confluence suggestive of bibasilar scarring. There is no demonstrated pleural abnormality. There is moderate cardiac enlargement. Normal mediastinum and radu. Normal visualized pulmonary arteries. There is atherosclerotic calcification of the aortic arch with tortuosity. Normal visualized thoracic spine. There is degenerative osteoarthritis of the bilateral shoulders. There is no demonstrated abnormality of the visualized soft tissue structures of the upper abdomen. RAD/Chest 1 View (Portable) IMPRESSION: Mild degree of elevation of the right hemidiaphragm with increased markings at the lung bases suggestive of mild scarring. There has been improvement as compared to prior study. Electronically Signed: Cornel Powers MD at 13:13 EST , Service support ,
[2020-06-18 13:26] LABS: Absolute Lymphocyte Count 0.31 X10^3/uL (0.83-4.51); Basophil# 0.01 X10^3/uL; Basophil% 0.4 % (0-1); Eosinophil# 0.03 X10^3/uL; Eosinophils% 1.2 % (0-5); Hematocrit 32.4 % (40-54); Hemoglobin 10.5 g/dL (13.0-16.5); Lymphocyte # 0.31 X10^3/ul (4.0); Mean Corp Hgb Conc 32.4 g/dL (32-36); Mean Corpuscular Hgb 27.1 pg (27.0-32.0); Mean Corpuscular Volume 83.5 fL (80-94); Mean Platelet Vol. 9.4 fl (6.2-12.0); Monocyte# 0.24 X10^3/uL; Monocyte% 9.3 % (0-10); NRBC Flagged by Analyzer 0 % (0-5); Neutrophil # 1.99 X10^3/uL (2.7-7.7); Neutrophil % 76.7 % (47-70); POSITIVE COUNT YES; POSITIVE DIFFERENTIAL YES; Platelet Count 97 K/mm3 (150-450); RBC Distribution Width CV 15.1 % (11.6-14.6); RBC Distribution Width SD 45.6 fl (35.1-43.9); Red Blood Count 3.88 M/mm3 (4.6-6.2); White Blood Count 2.6 K/mm3 (4.4-11.0)
[2020-06-18 13:36] LABS: Differential Indicated SCAN CRITERIA MET
[2020-06-18 13:42] LABS: ALB/GLOB Ratio 0.7 RATIO (0.9-2.4); AST(SGOT) 38 U/L (15-37); Alanine Aminotransfer ALT/SGPT 27 U/L (16-61); Albumin, Serum 2.8 g/dL (3.2-5.0); Alkaline Phosphatase 117 U/L (45-117); Anion Gap 7 (5-15); BUN 47 mg/dL (7-18); BUN/Creat Ratio 17.9 RATIO (10-20); Calcium,Total 8.6 mg/dL (8.5-10.1); Chloride 107 mmol/L (98-107); Creatinine, Serum 2.63 mg/dL (0.70-1.30); EST Glomerular Filtration Rate 25 mL/min (>60); Est Glom Filt Rate - Afr Amer 30 mL/min (>60); Glucose 86 mg/dL (74-106); Potassium 3.8 mmol/L (3.5-5.1); Protein, Total 6.8 g/dL (6.4-8.2); Sodium Level 137 mmol/L (136-145)
[2020-06-18 13:49] LABS: International Normalized Ratio 3.7; Prothrombin Time (Protime)PT. 36.8 SECONDS (11.7-14.9)
[2020-06-18 14:03] LABS: Platelet Estimate MOD DEC (ADEQ)
[2020-06-18 14:37] VITALS: BP 156/87; PULSE 78; RESP 19; O2SAT 95
[2020-06-18 15:14] VITALS: BP 156/94; PULSE 82; RESP 19
[2020-06-19 13:04] LABS: Pathologist Review Reviewed
== END 2020-06-18 15:16 | disposition home or self-care (01) ==
PROVIDERS: Emergency Provider Emergency Medicine; PCP Family Medicine
DX: N18.4 Chronic kidney disease, stage 4 (severe) (principal); I50.42 Chronic combined systolic (congestive) and diastolic (congestive) heart failure; J06.9 Acute upper respiratory infection, unspecified; I25.10 Atherosclerotic heart disease of native coronary artery without angina pectoris; E66.9 Obesity, unspecified; Z95.5 Presence of coronary angioplasty implant and graft; Z87.891 Personal history of nicotine dependence; Z79.01 Long term (current) use of anticoagulants
CPT/HCPCS: 71045; 80053; 83880; 84484; 85025; 85610; 87426; 93005; 99283; A4216

== ENCOUNTER → 2020-06-19 11:34 | Outpatient (CLI) | payer MEDICARE, OTHER, SELFPAY ==
[2020-05-26 08:09] VITALS: BMI 39.9
[2020-06-18 11:30] VITALS: BMI 40.2
[2020-06-19 15:26] LABS: Prothrombin Time (Protime)PT. 35.4 SECONDS (11.7-14.9)
[2020-06-19 15:30] LABS: International Normalized Ratio 3.6
== END ==
PROVIDERS: PCP Family Medicine; Referring Provider Family Medicine; Visit Provider Internal Medicine Cardiovascular Disease
DX: I48.11 Longstanding persistent atrial fibrillation (principal); Z79.01 Long term (current) use of anticoagulants
CPT/HCPCS: 36415; 85610

== ENCOUNTER → 2020-07-02 14:34 | Outpatient (CLI) | payer MEDICARE, OTHER, SELFPAY ==
[2020-05-26 08:09] VITALS: BMI 39.9
[2020-06-18 11:30] VITALS: BMI 40.2
[2020-07-02 18:04] LABS: International Normalized Ratio 3.2; Prothrombin Time (Protime)PT. 32.6 SECONDS (11.7-14.9)
[2020-07-02 18:21] LABS: BNP,B-Type NATRIURETIC PEPTIDE 858.7 pg/mL (0-100)
== END ==
PROVIDERS: Internal Medicine Cardiovascular Disease; PCP Family Medicine; Referring Provider Family Medicine; Visit Provider Family Medicine
DX: I11.0 Hypertensive heart disease with heart failure (principal); I48.11 Longstanding persistent atrial fibrillation; Z79.01 Long term (current) use of anticoagulants
CPT/HCPCS: 36415; 83880; 85610

== ENCOUNTER → 2020-07-09 11:42 | Outpatient (CLI) | payer MEDICARE, OTHER, SELFPAY ==
[2020-05-26 08:09] VITALS: BMI 39.9
[2020-06-18 11:30] VITALS: BMI 40.2
[2020-07-09 15:37] LABS: International Normalized Ratio 2.7; Prothrombin Time (Protime)PT. 28.7 SECONDS (11.7-14.9)
== END ==
PROVIDERS: PCP Family Medicine; Referring Provider Family Medicine; Visit Provider Internal Medicine Cardiovascular Disease
DX: I48.11 Longstanding persistent atrial fibrillation (principal); Z79.01 Long term (current) use of anticoagulants
CPT/HCPCS: 36415; 85610

== ENCOUNTER → 2020-07-16 15:25 | Outpatient (CLI) | payer MEDICARE, OTHER, SELFPAY ==
[2020-05-26 08:09] VITALS: BMI 39.9
[2020-06-18 11:30] VITALS: BMI 40.2
[2020-07-16 18:34] LABS: Anion Gap 9 (5-15); BUN 59 mg/dL (7-18); Calcium,Total 9.6 mg/dL (8.5-10.1); Chloride 106 mmol/L (98-107); Creatinine, Serum 3.27 mg/dL (0.70-1.30); EST Glomerular Filtration Rate 20 mL/min (>60); Est Glom Filt Rate - Afr Amer 24 mL/min (>60); Glucose 120 mg/dL (74-106); Potassium 4.5 mmol/L (3.5-5.1); Sodium Level 138 mmol/L (136-145)
[2020-07-16 18:40] LABS: BNP,B-Type NATRIURETIC PEPTIDE 1118.8 pg/mL (0-100)
== END ==
PROVIDERS: PCP Family Medicine; Referring Provider Family Medicine; Visit Provider Family Medicine
DX: I25.10 Atherosclerotic heart disease of native coronary artery without angina pectoris (principal); I11.0 Hypertensive heart disease with heart failure
CPT/HCPCS: 36415; 80048; 82330; 83880

== ENCOUNTER 2020-10-20 08:15 | Outpatient (RCR) | payer MEDICARE, OTHER, SELFPAY ==
[2020-02-25 13:21] VITALS: BMI 39.9
[2020-05-05 13:05] VITALS: BMI 40.1
[2020-05-26 08:09] VITALS: BMI 39.9
[2020-07-28 14:50] VITALS: BMI 38.6
[2020-10-20 09:29] LABS: Protein, Urine (Random) 378.7 mg/dL (<11.9); Protein:Creat Ratio 3965 mg/g CRE (0-200)
[2020-10-20 09:36] LABS: Anion Gap 12 (5-15); BUN 59 mg/dL (7-18); BUN/Creat Ratio 19.1 RATIO (10-20); Calcium,Total 8.9 mg/dL (8.5-10.1); Chloride 106 mmol/L (98-107); Creatinine, Serum 3.09 mg/dL (0.70-1.30); EST Glomerular Filtration Rate 21 mL/min (>60); Est Glom Filt Rate - Afr Amer 25 mL/min (>60); Glucose 134 mg/dL (74-106); Potassium 4.3 mmol/L (3.5-5.1); Sodium Level 139 mmol/L (136-145)
[2020-10-20 10:16] LABS: International Normalized Ratio 3.2
== END 2020-10-20 18:00 | disposition home or self-care (01) ==
LOC: LAB 08:15
PROVIDERS: Family Provider Family Medicine; PCP Family Medicine; Referring Provider Internal Medicine Cardiovascular Disease; Visit Provider Internal Medicine Cardiovascular Disease
DX: I48.11 Longstanding persistent atrial fibrillation (principal); Z79.01 Long term (current) use of anticoagulants
CPT/HCPCS: 36415; 80048; 82570; 84156; 85610

== ENCOUNTER 2021-01-11 16:16 | Emergency (ER) | payer MEDICARE, OTHER, SELFPAY ==
[2020-11-21 14:37] VITALS: BMI 39.9
[2021-01-11 16:17] VITALS: BP 168/94; PULSE 69; RESP 18; TEMP 36.1; O2SAT 94; BMI 41.6
--- NOTE | 2021-01-11 18:31 | US_ITS ---
HISTORY: Swollen testicle for one week EXAMINATION: US Scrotum (Contents) TECHNIQUE: Realtime ultrasound of the testicles was performed with grayscale, Color Doppler and spectral Doppler analysis. COMPARISON: Concurrent unenhanced CT abdomen and pelvis FINDINGS: Prominent bilateral scrotal wall thickening and edema with small right hydrocele and moderate-sized left hydrocele. No varicocele demonstrated. Unremarkable right and left epididymis. Bilateral testicles are normal size demonstrating normal color Doppler flow and spectral Doppler waveforms. Right chest measures 3.8 x 3.1 x 3.4 cm and left testicle 3.8 x 2.7 x 2.9 cm. A punctate hyperechoic focus is within left testicle. Otherwise, no discrete testicular mass. US/Testicular with Arterial Flow IMPRESSION: 1. Scrotal wall thickening and edema with bilateral hydroceles. 2. Punctate left testicular calcification. Otherwise, no acute testicular findings. at 2127 Reported and signed by: Prasanth Herzog MD Electronically Signed: Prasanth Herzog MD at 21:26 EDT Tel , Service support ,
--- NOTE | 2021-01-11 18:32 | EKG12_ITS ---
Test Reason : EDEMA Blood Pressure : / mmHG Vent. Rate : 075 BPM Atrial Rate : 084 BPM P-R Int : 000 ms QRS Dur : 100 ms QT Int : 420 ms P-R-T Axes : 000 -09 107 degrees QTc Int : 469 ms Atrial fibrillation with premature ventricular or aberrantly conducted complexes Inferior infarct (cited on or before 19-MAR-2003) Abnormal ECG Confirmed by PABLO GOMEZ, TATY ([id number]), supervising editor news reel GREGORY GARCIA ([id number]) on 01/13/2021 1:57:41 PM Referred By: DASH Confirmed By:TATY SHAH MD
--- NOTE | 2021-01-11 18:32 | RAD_ITS ---
STUDY: X-RAY CHEST REASON FOR EXAM: Male, 80 years old. chest pain TECHNIQUE: Frontal portable view of the chest COMPARISON: 18 June 2020 FINDINGS: Inspiratory volumes are low, making evaluation difficult. There is bilateral basal atelectasis. There is mild cardiac megaly. There is no pneumothorax, pulmonary edema or pleural effusions. RAD/Chest 1 View (Portable) IMPRESSION: Limited chest radiograph due to low volumes, atelectasis. Electronically Signed: Stuart Posada MD at 20:08 EDT Tel , Service support ,
[2021-01-11 18:52] VITALS: BP 166/84; PULSE 75; RESP 18; O2SAT 94
--- NOTE | 2021-01-11 18:52 | CT_ITS ---
STUDY: CT ABDOMEN AND PELVIS WITHOUT CONTRAST REASON FOR EXAM: Male, 80 years old. Testicular swelling abdominal distention RADIATION DOSAGE (If Supplied By Facility): CTDIvol = ( 11.72 ) mGy, DLP = ( 1536.70 ) mGycm TECHNIQUE: Transaxial images were obtained from the dome of the diaphragm to the symphysis pubis without oral contrast, and without intravenous contrast. Sagittal and coronal images were reconstructed. Individualized dose optimization techniques were used for this CT. COMPARISON: None. FINDINGS: There is a small right pleural effusion and bilateral basal atelectasis. There is a benign partially calcified right lower lung granuloma. Coronary arteries are severely diseased. Left atrium is moderately enlarged. Left ventricle is normal. Liver is cirrhotic. There is large amount of ascites. There is anasarca and diffuse mesenteric edema. Detection of intra-abdominal inflammatory change is not possible. Adrenals, spleen and pancreas are normal. The left kidneys are small and atrophic bilaterally with multiple cysts and vascular calcifications. Aorta is normal in diameter with moderate to severe calcifications. There is no intestinal obstruction. Bladder is normal. Osseous structures are intact with L3-L4 and L4-L5 remote laminectomy and bilateral L5 lysis and grade 1 anterolisthesis. There is no hardware placement. There is extensive scrotal edema and hydroceles. CT/Abdomen/Pelvis without Cont IMPRESSION: 1. Cirrhosis with large amount of ascites. 2. Renal atrophy, probably chronic renal disease/failure. 3. Severe coronary artery disease. 4. Hydrostatic scrotal edema and hydroceles. Electronically Signed: Stuart Posada MD at 19:56 EDT Tel , Service support ,
[2021-01-11 18:55] LABS: Absolute Lymphocyte Count 0.37 X10^3/uL (0.83-4.51); Absolute Neutrophil Count 3.3 X10^3/uL (2.0-7.7); Basophil# 0.04 X10^3/uL; Basophil% 0.9 % (0-1); Eosinophils% 4.6 % (0-5); Hematocrit 32.5 % (40-54); Hemoglobin 10.1 g/dL (13.0-16.5); Lymphocyte # 0.37 X10^3/ul (0.83-4.51); Lymphocyte % 8.6 % (19-41); Mean Corp Hgb Conc 31.1 g/dL (32-36); Mean Corpuscular Hgb 26.6 pg (27.0-32.0); Mean Corpuscular Volume 85.8 fL (80-94); Mean Platelet Vol. 10.8 fl (6.2-12.0); Monocyte# 0.41 X10^3/uL; Monocyte% 9.5 % (0-10); NRBC Flagged by Analyzer 0 % (0-5); Neutrophil # 3.27 X10^3/uL (2.7-7.7); Neutrophil % 75.9 % (47-70); POSITIVE DIFFERENTIAL YES; Platelet Count 147 K/mm3 (150-450); RBC Distribution Width CV 17.1 % (11.6-14.6); RBC Distribution Width SD 53.9 fl (35.1-43.9); Red Blood Count 3.79 M/mm3 (4.6-6.2); White Blood Count 4.3 K/mm3 (4.4-11.0)
[2021-01-11 18:59] LABS: Differential Indicated SCAN CRITERIA MET
--- NOTE | 2021-01-11 19:01 | EX.ED.DYSGE1 ---
HPI History of Present Illness Chief Complaint: Edema Narrative Narrative: 80-year-old male presenting with testicular pain. He states he sat on his right testicle about a month ago. He states he was out of town on vacation when this occurred. He notes it has been painful and swelling over the course of the month. patient did travel to [facility] from his original destination and continued to have pain. Patient states that now his testicle is extremely swollen and tender. He states he is now having trouble urinating because his penis is now inverted. He states that he is also had some increasing shortness of breath and has also seen his primary care physician and bevel face stoner and polisher over the course of this month. Apparently the patient had not described as testicular pain. He also complains of abdominal distention that has a history of a periumbilical hernia. Patient is not having chest pain or exertional chest pain. Patient is on Coumadin. He denies black or bloody stools. 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 heart failure) Chronic renal failure, stage 4 (severe) Diabetic neuropathy associated with type 2 diabetes mellitus Essential (primary) hypertension History of non-ST elevation myocardial infarction (NSTEMI) (12/31/19) Hyperlipidemia Hyperphosphatemia Hypothyroidism Iron deficiency anemia Ischemic cardiomyopathy Left atrial enlargement Longstanding persistent atrial fibrillation Morbid obesity Obstructive sleep apnea ANKIT (obstructive sleep apnea) Pulmonary edema (12/30/19) Type 2 diabetes mellitus Unsteady gait when walking Home Medications aspirin 81 mg PO DAILY 07/17/15 [History Last Taken 01/06/20 08:00] sodium bicarbonate 650 mg tablet 650 mg PO .q day tab 07/29/17 [History Last Taken 01/06/20 09:00] blood sugar diagnostic #20 ea 08/18/17 [History Last Taken Unknown] ipratropium bromide 2 spray NASAL BID #1 bottle 01/15/20 [Rx Last Taken Unknown] ergocalciferol (vitamin D2) 50 mcg (2,000 unit) capsule 50 mcg PO DAILY 01/24/20 [History Last Taken Unknown] nitroglycerin 0.4 mg sublingual tablet 0.4 mg SUBLINGUAL Q5M PRN #25 tab 01/24/20 [Rx Last Taken Unknown] ferrous sulfate 325 mg (65 mg iron) tablet 325 mg PO LUNCH #90 tab 02/06/20 [Rx Last Taken Unknown] multivitamin 1 tab PO DAILY 02/06/20 [History Last Taken Unknown] pen needle, diabetic 32 gauge x 5/32 #100 ea 02/18/20 [Rx Last Taken Unknown] insulin glargine 100 unit/mL (3 mL) subcutaneous pen 14 unit SUBCUT QHS #15 ml 05/05/20 [Rx Last Taken Unknown] pen needle, diabetic 32 gauge x 5/32 #100 ea 05/05/20 [Rx Last Taken Unknown] isosorbide mononitrate 30 mg tablet,extended release 24 hr 30 mg PO DAILY #90 tab 08/04/20 [Rx Last Taken Unknown] spironolactone 25 mg tablet 25 mg PO MOWEFR #45 tablet 08/04/20 [Rx Last Taken Unknown] warfarin 5 mg tablet 5 mg PO .COMPLEX #90 tablet 08/11/20 [Rx Last Taken Unknown] warfarin 7.5 mg tablet 7.5 mg PO .COMPLEX #90 tablet 08/11/20 [Rx Last Taken Unknown] furosemide 40 mg tablet 40 mg PO .T// tab 10/21/20 [History Last Taken Unknown] lovastatin 40 mg tablet 40 mg PO QPM #30 tab 11/06/20 [Rx Last Taken Unknown] latanoprost 0.005 % eye drops ml OPHTHALMIC (EYE) 11/21/20 [History Last Taken Unknown] doxazosin 1 mg tablet 1 mg PO QHS #90 tab 12/11/20 [Rx Last Taken Unknown] hydralazine 50 mg tablet 50 mg PO TID #270 tab 12/11/20 [Rx Last Taken Unknown] metoprolol succinate 100 mg tablet,extended release 24 hr 100 mg PO DAILY #90 tab 12/11/20 [Rx Last Taken Unknown] levothyroxine 75 mcg tablet 75 mcg PO DAILY #30 tab 12/30/20 [Rx Last Taken Unknown] Allergy/AdvReac Type Severity Reaction Status Date / Time Penicillins AdvReac Severe Swelling Verified 01/11/21 16:17 Family History Father , age 79, of embolism CAD (coronary artery disease) Embolism Mother , age 74 Kidney disease renal failure Surgical History History of back surgery (01/2019) History of coronary artery stent placement (06/03/15) History of left heart catheterization (01/03/20) History of total right knee replacement (TKR) Social History Smoking Status: Former smoker how long ago did patient quit smokin second hand exposure: No alcohol intake: never substance use type: does not use ROS ROS ED Constitutional Constitutional ED: Denies chills or fever(s) Eyes Eyes: Denies blurry vision or diplopia ENT ENT ED: Denies rhinorrhea or sore throat Cardiovascular Cardiovascular: Denies chest pain Respiratory/Chest Respiratory/Chest: Reports dyspnea and dyspnea on exertion Gastrointestinal Gastrointestinal: Reports other Details: Abdominal distention ; Denies nausea or vomiting Genitourinary Genitourinary ED: Denies dysuria or hematuria Musculoskeletal Musculoskeletal: Denies arthralgias or myalgias Integumentary Denies Abrasions or rash Neurologic Neurologic: Denies headache(s) or paresthesias EXAM Physical Exam Const Vital Signs: 01/11/21 16:17 01/11/21 18:49 01/11/21 18:52 Temperature 96.9 F L Temperature Source Temporal Pulse Rate 69 75 Respiratory Rate 18 18 Blood Pressure 168/94 H 166/84 H Blood Pressure Mean 118 111 Pulse Ox 94 94 Oxygen Delivery Method Room Air Room Air Room Air 01/11/21 20:09 01/11/21 23:07 Temperature Temperature Source Pulse Rate 76 71 Respiratory Rate 14 16 Blood Pressure 171/102 H 167/89 H Blood Pressure Mean 125 Pulse Ox 94 97 Oxygen Delivery Method Positive well nourished and obese General Appearance ED: NAD; Negative for pallor Nutritional Appearance: obese HEENT Reports moist mucous membranes Negative for trauma Eyes PERRL and EOMs intact bilaterally Neck no lymphadenopathy and supple Resp normal respiratory effort and clear to auscultation bilaterally Cardio regular rate and regular rhythm Narrative: Testicles are bilaterally swollen with greater swelling on the right. The penis is inverted. There is no sign of cellulitic changes. Extremity General Extremety ED: Yes edema; Negative for tenderness General Extremity: edema Neuro oriented x3 and CN's II-XII intact bilaterally Sensorium / Orientation: alert Psych mental status grossly normal Skin no rashes or lesions noted General Skin Exam: Negative for jaundice or pallor MDM MDM MDM Narrative Medical decision making narrative: Patient has multiple complaints. The first of which was his testicular pain. He described this as traumatic about a month ago. On examination his testicles are swollen bilaterally and greater on the right. The penis is inverted and he states this is new over the last month. He states he has been seen by his bevel face stoner and polisher and his primary care physician but has not mentioned this. He does describe shortness of breath with exertion. Patient denies any fever or cough. Patient is also complaining of abdominal distention. Patient had EKG which on my interpretation showed atrial fibrillation with a controlled ventricular response of 75 bpm. Chest x-ray on my interpretation showed no acute cardiopulmonary process. Patient has no leukocytosis and his hemoglobin is at baseline. 3.5 which is slightly above his baseline. electrolytes are normal. Troponin is 25. BNP is 1099. This is less than his previous. Patient's LFTs are unremarkable. INR is therapeutic so low suspicion for PE. I obtained an ultrasound of the testicles which shows bilateral hydroceles. Patient CT exam is shown to have renal atrophy and again hydroceles. It does appear that he has ascites with normal LFTs. This is likely the reason why his abdomen is distended. I do not believe the patient needs to be admitted for this although he does need follow-up with his primary care physician. He is also supposed to be on Lasix and is not taking this properly. He states he only takes it from time to time. This may be why he is more short of breath recently. Is also may be contributing to his scrotal edema. Patient is counseled on findings. He is counseled to follow-up with his primary care physician and his bevel face stoner and polisher. Patient is to use compressive underwear for his testicles. He is given follow-up with urology. Impression: 1. Abdominal distention with ascites 2. Shortness of breath with history of CHF. 3. Scrotal edema with bilateral hydroceles Lab Data Attestation: I reviewed the patient's lab results. Labs: Laboratory Results - last 24 hr 01/11/21 01/11/21 01/11/21 18:45 18:45 18:45 WBC 4.3 L RBC 3.79 L Hgb 10.1 L Hct 32.5 L MCV 85.8 MCH 26.6 L MCHC 31.1 L RDW Std Deviation 53.9 H RDW Coeff of Moni 17.1 H Plt Count 147 L MPV 10.8 Immature Gran % (Auto) 0.500 Neut % (Auto) 75.9 H Lymph % (Auto) 8.6 L Baldwin % (Auto) 9.5 Eos % (Auto) 4.6 Baso % (Auto) 0.9 Absolute Neuts (auto) 3.3 Absolute Lymphs (auto) 0.37 L Nucleated RBC % 0 Differential Comment SCANNED PT 32.7 H INR 3.3 Sodium 138 Potassium 4.5 Chloride 109 H Carbon Dioxide 21.0 Anion Gap 8 BUN 63 H Creatinine 3.57 H Estim Creat Clear Calc 16.50 Est GFR (MDRD) Af Amer 21 L Est GFR (MDRD) Non-Af 18 L BUN/Creatinine Ratio 17.6 Glucose 107 H Calcium 9.2 Total Bilirubin Direct Bilirubin AST ALT Alkaline Phosphatase Troponin I High Sens 25 B-Natriuretic Peptide Total Protein Albumin Globulin Lipase Urine Color Urine Clarity Urine pH Ur Specific [place] Urine Protein Urine Glucose (UA) Urine Ketones Urine Occult Blood Urine Nitrite Urine Bilirubin Urine Urobilinogen Ur Leukocyte Esterase Urine RBC Urine WBC Ur Squamous Epith Cells Urine Bacteria Hyaline Casts Fine Granular Casts Urine Mucus 01/11/21 01/11/21 01/11/21 18:45 18:45 18:45 WBC RBC Hgb Hct MCV MCH MCHC RDW Std Deviation RDW Coeff of Moni Plt Count MPV Immature Gran % (Auto) Neut % (Auto) Lymph % (Auto) Baldwin % (Auto) Eos % (Auto) Baso % (Auto) Absolute Neuts (auto) Absolute Lymphs (auto) Nucleated RBC % Differential Comment PT INR Sodium Potassium Chloride Carbon Dioxide Anion Gap BUN Creatinine Estim Creat Clear Calc Est GFR (MDRD) Af Amer Est GFR (MDRD) Non-Af BUN/Creatinine Ratio Glucose Calcium Total Bilirubin 0.50 Direct Bilirubin 0.23 AST 18 ALT 16 Alkaline Phosphatase 123 H Troponin I High Sens B-Natriuretic Peptide 1099.3 H Total Protein 7.4 Albumin 3.1 L Globulin 4.3 H Lipase 138 Urine Color Urine Clarity Urine pH Ur Specific [place] Urine Protein Urine Glucose (UA) Urine Ketones Urine Occult Blood Urine Nitrite Urine Bilirubin Urine Urobilinogen Ur Leukocyte Esterase Urine RBC Urine WBC Ur Squamous Epith Cells Urine Bacteria Hyaline Casts Fine Granular Casts Urine Mucus 01/11/21 19:20 WBC RBC Hgb Hct MCV MCH MCHC RDW Std Deviation RDW Coeff of Moni Plt Count MPV Immature Gran % (Auto) Neut % (Auto) Lymph % (Auto) Baldwin % (Auto) Eos % (Auto) Baso % (Auto) Absolute Neuts (auto) Absolute Lymphs (auto) Nucleated RBC % Differential Comment PT INR Sodium Potassium Chloride Carbon Dioxide Anion Gap BUN Creatinine Estim Creat Clear Calc Est GFR (MDRD) Af Amer Est GFR (MDRD) Non-Af BUN/Creatinine Ratio Glucose Calcium Total Bilirubin Direct Bilirubin AST ALT Alkaline Phosphatase Troponin I High Sens B-Natriuretic Peptide Total Protein Albumin Globulin Lipase Urine Color Yellow Urine Clarity Cloudy Urine pH 5.0 Ur Specific [place] 1.020 Urine Protein 100 H Urine Glucose (UA) Normal Urine Ketones Negative Urine Occult Blood 10 H Urine Nitrite Negative Urine Bilirubin Negative Urine Urobilinogen Normal Ur Leukocyte Esterase 100 H Urine RBC 0-5 SEEN Urine WBC 10-25 SEEN Ur Squamous Epith Cells 0 SEEN Urine Bacteria 0 SEEN Hyaline Casts 0-5 SEEN Fine Granular Casts 0-5 SEEN Urine Mucus 0 SEEN Radiography Diagnostic Testing: Radiology Impression Testicular Ultrasound 01/11/21 18:31 IMPRESSION: 1. Scrotal wall thickening and edema with bilateral hydroceles. 2. Punctate left testicular calcification. Otherwise, no acute testicular findings. at 2127 Reported and signed by: Prasanth Herzog MD Electronically Signed: Prasanth Herzog MD at 21:26 EDT Tel , Service support , Chest X-Ray 01/11/21 18:32 IMPRESSION: Limited chest radiograph due to low volumes, atelectasis. Electronically Signed: Stuart Posada MD at 20:08 EDT Tel , Service support , Abdomen/Pelvis CT 01/11/21 18:52 IMPRESSION: 1. Cirrhosis with large amount of ascites. 2. Renal atrophy, probably chronic renal disease/failure. 3. Severe coronary artery disease. 4. Hydrostatic scrotal edema and hydroceles. Electronically Signed: Stuart Posada MD at 19:56 EDT Tel , Service support , ADDENDUM: 01/11/212013 Discharge Plan Triage Chief Complaint: Edema Other Complaint: Male Pain/Injury ED Provider: Keegan Hines Dx/Rx/DC Orders Instructions: ED Heart Failure, Congestive (CHF), ED Hydrocele, Type Not Specified Prescriptions: No Action (DME) blood sugar diagnostic strip 1 applic MISCELL. .MEDSUPPLY Qty: 20 RF: 0 insulin glargine 100 unit/mL (3 mL) insulin pen 14 unit subcut QHS Qty: 15 RF: 4 (DME) pen needle, diabetic [BD Ultra-Fine [place] Pen Needle] 32 gauge x 5/32 needle See Rx Instructions .ROUTE .MEDSUPPLY Qty: 100 RF: 4 ergocalciferol (vitamin D2) 50 mcg (2,000 unit) capsule 50 mcg PO DAILY RF: 0 nitroglycerin 0.4 mg tablet, sublingual 0.4 mg SUBLINGUAL Q5M PRN (Reason: Chest Pain) Qty: 25 RF: 2 furosemide 40 mg tablet 40 mg PO .T// RF: 0 latanoprost 0.005 % drops ophthalmic (eye) RF: 0 aspirin 81 MG tablet,delayed release (DR/EC) 81 mg PO DAILY RF: 0 sodium bicarbonate 650 mg tablet 650 mg PO .q day RF: 0 ipratropium bromide 1 SPRAY spray,non-aerosol 2 spray NASAL BID Qty: 1 RF: 0 ferrous sulfate 325 mg (65 mg iron) tablet 325 mg PO LUNCH Qty: 90 RF: 3 multivitamin Tablet 1 tab PO DAILY RF: 0 (DME) pen needle, diabetic [BD Ultra-Fine [place] Pen Needle] 32 gauge x 5/32 needle See Rx Instructions .ROUTE .MEDSUPPLY Qty: 100 RF: 2 spironolactone 25 mg tablet 25 mg PO MOWEFR Qty: 45 RF: 3 isosorbide mononitrate 30 mg tablet extended release 24 hr 30 mg PO DAILY Qty: 90 RF: 3 warfarin 7.5 mg tablet 7.5 mg PO .COMPLEX Qty: 90 RF: 3 warfarin 5 mg tablet 5 mg PO .COMPLEX Qty: 90 RF: 3 lovastatin 40 mg tablet 40 mg PO QPM Qty: 30 RF: 3 doxazosin 1 mg tablet 1 mg PO QHS Qty: 90 RF: 3 metoprolol succinate 100 mg tablet extended release 24 hr 100 mg PO DAILY Qty: 90 RF: 3 hydralazine 50 mg tablet 50 mg PO TID Qty: 270 RF: 3 levothyroxine 75 mcg tablet 75 mcg PO DAILY Qty: 30 RF: 3 Primary Care Provider: Masha Treviño Referrals: Masha Treviño MD [Primary Care Provider] - Arnel Feliciano MD [STAFF PHYSICIAN] - As soon as possible Disposition Disposition: Home, Self Care Discharge Date/Time: 01/11/21 23:08
[2021-01-11 19:04] LABS: International Normalized Ratio 3.3; Prothrombin Time (Protime)PT. 32.7 SECONDS (11.7-14.9)
[2021-01-11 19:13] LABS: Differential Comment SCANNED
[2021-01-11 19:14] LABS: Anion Gap 8 (5-15); BUN 63 mg/dL (7-18); BUN/Creat Ratio 17.6 RATIO (10-20); Calcium,Total 9.2 mg/dL (8.5-10.1); Chloride 109 mmol/L (98-107); Creatinine, Serum 3.57 mg/dL (0.70-1.30); EST Glomerular Filtration Rate 18 mL/min (>60); Est Glom Filt Rate - Afr Amer 21 mL/min (>60); Glucose 107 mg/dL (74-106); Potassium 4.5 mmol/L (3.5-5.1); Sodium Level 138 mmol/L (136-145); Troponin-I HS 25 pg/mL (3.0-78.0)
[2021-01-11 19:15] LABS: BNP,B-Type NATRIURETIC PEPTIDE 1099.3 pg/mL (0-100)
[2021-01-11 19:29] LABS: Lipase 138 U/L (73-393)
[2021-01-11 19:33] LABS: Bacteria 0 SEEN /hpf (None Seen); Mucous, Urine 0 SEEN /hpf (<or=2+); Squamous Epithelial Cells - UA 0 SEEN /hpf (0-5)
[2021-01-11 19:33] LABS: AST(SGOT) 18 U/L (15-37); Alanine Aminotransfer ALT/SGPT 16 U/L (16-61); Albumin, Serum 3.1 g/dL (3.2-5.0); Alkaline Phosphatase 123 U/L (45-117); Bilirubin, Direct 0.23 mg/dL (0.00-0.30); Globulin 4.3 g/dL (2.2-4.2); Protein, Total 7.4 g/dL (6.4-8.2)
[2021-01-11 19:37] LABS: Color, Urine Yellow (Yellow); Glucose, Dipstick Normal (Normal); Ketone-Dipstick Negative (Negative); Leukocyte Esterase-Dipstick 100 /ul (Negative); Nitrite-Dipstick Negative (Negative); Occult Blood-Urine 10 /ul (Negative); Protein-Dipstick 100 mg/dl (Negative); Urine Bilirubin Dipstick Negative (Negative); Urine Clarity Cloudy (Clear); Urine Urobilinogen Normal (Normal)
[2021-01-11 20:09] VITALS: BP 171/102; PULSE 76; RESP 14; O2SAT 94
[2021-01-11 20:15] LABS: Fine Granular Cast- Urine 0-5 SEEN /lpf (0-5)
[2021-01-11 20:16] LABS: Hyaline Cast 0-5 SEEN /lpf (0-5)
[2021-01-11 20:17] LABS: Red Blood Cells-Urine 0-5 SEEN /hpf (0-5); White Blood Cells 10-25 SEEN /hpf (0-5)
[2021-01-11 23:07] VITALS: BP 167/89; PULSE 71; RESP 16; O2SAT 97
[2021-01-12 15:42] LABS: Pathologist Review Reviewed
== END 2021-01-11 23:08 | disposition home or self-care (01) ==
PROVIDERS: Emergency Provider Student in an Organized Health Care Education/Training Program; PCP Family Medicine
DX: R14.0 Abdominal distension (gaseous) (principal); R18.8 Other ascites; R06.02 Shortness of breath; N50.89 Other specified disorders of the male genital organs; I25.10 Atherosclerotic heart disease of native coronary artery without angina pectoris; I25.2 Old myocardial infarction; Z87.891 Personal history of nicotine dependence
CPT/HCPCS: 71045; 74176; 76870; 80048; 80076; 81001; 83690; 83880; 84484; 85025; 85610; 93005; 93976; 99283; A4216

== ENCOUNTER 2021-02-03 08:45 | Outpatient (RCR) | payer MEDICARE, OTHER, SELFPAY ==
[2020-05-26 08:09] VITALS: BMI 39.9
[2020-10-21 13:50] VITALS: BMI 40.1
[2020-11-21 14:37] VITALS: BMI 39.9
[2021-01-30 10:32] LABS: International Normalized Ratio 3.3; Prothrombin Time (Protime)PT. 33.1 SECONDS (11.7-14.9)
[2021-01-30 10:49] LABS: Anion Gap 8 (5-15); BUN 78 mg/dL (7-18); BUN/Creat Ratio 20.9 RATIO (10-20); Calcium,Total 9.1 mg/dL (8.5-10.1); Chloride 110 mmol/L (98-107); Creatinine, Serum 3.74 mg/dL (0.70-1.30); EST Glomerular Filtration Rate 17 mL/min (>60); Est Glom Filt Rate - Afr Amer 20 mL/min (>60); Glucose 87 mg/dL (74-106); Potassium 4.6 mmol/L (3.5-5.1); Sodium Level 139 mmol/L (136-145)
[2021-02-03 09:25] LABS: International Normalized Ratio 3.2; Prothrombin Time (Protime)PT. 32.1 SECONDS (11.7-14.9)
[2021-02-03 09:38] LABS: Anion Gap 11 (5-15); BUN 85 mg/dL (7-18); BUN/Creat Ratio 22.3 RATIO (10-20); Calcium,Total 9.3 mg/dL (8.5-10.1); Chloride 104 mmol/L (98-107); Creatinine, Serum 3.81 mg/dL (0.70-1.30); EST Glomerular Filtration Rate 16 mL/min (>60); Est Glom Filt Rate - Afr Amer 20 mL/min (>60); Glucose 102 mg/dL (74-106); Potassium 4.4 mmol/L (3.5-5.1); Sodium Level 137 mmol/L (136-145)
[2021-02-03 10:35] LABS: BNP,B-Type NATRIURETIC PEPTIDE 1013.9 pg/mL (0-100)
== END 2021-02-22 03:47 | disposition home or self-care (01) ==
LOC: LAB 08:45
PROVIDERS: Nurse Practitioner Gerontology; Family Provider Family Medicine; PCP Family Medicine; Referring Provider Internal Medicine Cardiovascular Disease; Visit Provider Internal Medicine Cardiovascular Disease
DX: I48.11 Longstanding persistent atrial fibrillation (principal); Z79.01 Long term (current) use of anticoagulants; I50.42 Chronic combined systolic (congestive) and diastolic (congestive) heart failure
CPT/HCPCS: 36415; 80048; 83880; 85610

== ENCOUNTER → 2021-02-18 10:33 | Outpatient (CLI) | payer MEDICARE, OTHER, SELFPAY ==
[2020-11-21 14:37] VITALS: BMI 39.9
[2021-02-18 12:10] LABS: Prothrombin Time (Protime)PT. 29.9 SECONDS (11.7-14.9)
[2021-02-18 12:23] LABS: Anion Gap 12 (5-15); BUN 81 mg/dL (7-18); BUN/Creat Ratio 21.1 RATIO (10-20); Calcium,Total 9.2 mg/dL (8.5-10.1); Chloride 108 mmol/L (98-107); Creatinine, Serum 3.84 mg/dL (0.70-1.30); EST Glomerular Filtration Rate 16 mL/min (>60); Est Glom Filt Rate - Afr Amer 20 mL/min (>60); Glucose 190 mg/dL (74-106); Magnesium 2.5 mg/dL (1.6-2.6); Potassium 4.1 mmol/L (3.5-5.1); Sodium Level 139 mmol/L (136-145)
[2021-02-18 13:28] LABS: BNP,B-Type NATRIURETIC PEPTIDE 1333.3 pg/mL (0-100)
== END ==
PROVIDERS: PCP Family Medicine; Referring Provider Family Medicine; Visit Provider Family Medicine
DX: I50.22 Chronic systolic (congestive) heart failure (principal); E11.59 Type 2 diabetes mellitus with other circulatory complications; Z79.01 Long term (current) use of anticoagulants
CPT/HCPCS: 36415; 80048; 83735; 83880; 85610

== ENCOUNTER → 2021-02-25 10:57 | Outpatient (CLI) | payer MEDICARE, OTHER, SELFPAY ==
[2020-11-21 14:37] VITALS: BMI 39.9
[2021-02-25 12:23] LABS: International Normalized Ratio 2.9; Prothrombin Time (Protime)PT. 29.7 SECONDS (11.7-14.9)
[2021-02-25 12:25] LABS: Hematocrit 26.6 % (40-54); Hemoglobin 8.4 g/dL (13.0-16.5); Mean Corp Hgb Conc 31.6 g/dL (32-36); Mean Corpuscular Hgb 26.4 pg (27.0-32.0); Mean Corpuscular Volume 83.6 fL (80-94); Mean Platelet Vol. 10.1 fl (6.2-12.0); Platelet Count 135 K/mm3 (150-450); RBC Distribution Width CV 15.4 % (11.6-14.6); RBC Distribution Width SD 46.9 fl (35.1-43.9); Red Blood Count 3.18 M/mm3 (4.6-6.2); White Blood Count 3.8 K/mm3 (4.4-11.0)
[2021-02-25 12:27] LABS: PTHIN 120.2 pg/mL (18.4-80.1)
[2021-02-25 12:43] LABS: Albumin, Serum 3.1 g/dL (3.2-5.0); BUN 75 mg/dL (7-18); BUN/Creat Ratio 20.4 RATIO (10-20); Calcium,Total 9.3 mg/dL (8.5-10.1); Chloride 106 mmol/L (98-107); Creatinine, Serum 3.67 mg/dL (0.70-1.30); EST Glomerular Filtration Rate 17 mL/min (>60); Est Glom Filt Rate - Afr Amer 21 mL/min (>60); Glucose 112 mg/dL (74-106); Sodium Level 138 mmol/L (136-145)
[2021-02-25 13:05] LABS: Hepatitis B Surface Antigen Non-Reactive (Nonreactive); Vitamin D,25 Hydroxy 53.8 ng/mL
[2021-02-25 15:44] LABS: Protein, Urine (Random) 141.6 mg/dL (<11.9); Protein:Creat Ratio 2450 mg/g CRE (0-200)
== END ==
PROVIDERS: PCP Family Medicine; Referring Provider Family Medicine
DX: N18.4 Chronic kidney disease, stage 4 (severe) (principal); D64.9 Anemia, unspecified; Z79.01 Long term (current) use of anticoagulants
CPT/HCPCS: 36415; 80069; 82306; 82570; 83970; 84156; 85027; 85610; 87340

== ENCOUNTER 2021-03-30 13:12 | Outpatient (RCR) | payer MEDICARE, OTHER, SELFPAY ==
[2020-11-21 14:37] VITALS: BMI 39.9
[2021-02-22 03:47] VITALS: BMI 40.1
[2021-03-30 14:16] LABS: Hematocrit 28.9 % (40-54); Hemoglobin 9.1 g/dL (13.0-16.5); Mean Corp Hgb Conc 31.5 g/dL (32-36); Mean Corpuscular Hgb 26.7 pg (27.0-32.0); Mean Corpuscular Volume 84.8 fL (80-94); Mean Platelet Vol. 10.4 fl (6.2-12.0); Platelet Count 123 K/mm3 (150-450); RBC Distribution Width CV 17.2 % (11.6-14.6); RBC Distribution Width SD 52.7 fl (35.1-43.9); Red Blood Count 3.41 M/mm3 (4.6-6.2); White Blood Count 4.4 K/mm3 (4.4-11.0)
[2021-03-30 14:21] LABS: Protein:Creat Ratio 2216 mg/g CRE (0-200)
[2021-03-30 14:23] LABS: International Normalized Ratio 3.1
[2021-03-30 15:05] LABS: Albumin, Serum 3.2 g/dL (3.2-5.0); BUN 78 mg/dL (7-18); Calcium,Total 9.2 mg/dL (8.5-10.1); Chloride 111 mmol/L (98-107); Creatinine, Serum 3.72 mg/dL (0.70-1.30); EST Glomerular Filtration Rate 17 mL/min (>60); Est Glom Filt Rate - Afr Amer 20 mL/min (>60); Glucose 141 mg/dL (74-106); PTHIN 176.4 pg/mL (18.4-80.1); Phosphorus 5.4 mg/dL (2.5-4.9); Potassium 4.4 mmol/L (3.5-5.1); Sodium Level 140 mmol/L (136-145)
[2021-03-30 15:21] LABS: Hepatitis B Surface Antigen Non-Reactive (Nonreactive); Vitamin D,25 Hydroxy 49.4 ng/mL
[2021-04-20 18:09] LABS: International Normalized Ratio 2.7; Prothrombin Time (Protime)PT. 27.8 SECONDS (11.7-14.9)
== END 2021-04-25 18:00 | disposition home or self-care (01) ==
LOC: LAB 13:12
PROVIDERS: Family Provider Family Medicine; PCP Family Medicine; Referring Provider Internal Medicine Cardiovascular Disease; Visit Provider Internal Medicine Cardiovascular Disease
DX: Z79.01 Long term (current) use of anticoagulants (principal); I48.11 Longstanding persistent atrial fibrillation; N18.4 Chronic kidney disease, stage 4 (severe)
CPT/HCPCS: 36415; 80069; 82306; 82570; 83970; 84156; 85027; 85610; 87340

== ENCOUNTER → 2021-03-30 13:16 | Outpatient (CLI) | payer MEDICARE, OTHER, SELFPAY ==
[2020-11-21 14:37] VITALS: BMI 39.9
== END ==
PROVIDERS: PCP Family Medicine
DX: N18.4 Chronic kidney disease, stage 4 (severe) (principal); D64.9 Anemia, unspecified

== ENCOUNTER 2021-05-04 12:55 | Outpatient (CLI) | payer MEDICARE, OTHER, SELFPAY ==
[2020-11-21 14:37] VITALS: BMI 39.9
--- NOTE | 2021-05-04 13:12 | VDUE_ITS ---
Reason For Study: CKD Stage 4 Right Arm Left Arm Right Cephalic Vein at the wrist measures Left Cephalic Vein at the wrist measures 0.32 x 0.33 cm. 0.28 x 0.26 cm. Right Cephalic Vein in the forearm measures Left Cephalic Vein in the forearm measures 0.39 x 0.41 cm. 0.36 x 0.36 cm. Right Cephalic Vein below antecub measures Left Cephalic Vein below antecub measures 0.41 x 0.40 cm. 0.33 x 0.32 cm. Right Cephalic Vein above antecub measures Left Cephalic Vein above antecub measures 0.55 x 0.54 cm. 0.54 x 0.55 cm. Right Cephalic Vein mid bicep measures 0.47 Left Cephalic Vein at mid bicep measures x 0.47 cm. 0.51 x 0.51 cm. Right Cephalic Vein at the shoulder measures Left Cephalic Vein at the shoulder measures 0.46 x 0.45 cm. 0.49 x 0.48 cm. Right Basilic Vein at the origin measures Basilic vein at origin measures 0.48 x 0.47 0.41 x 0.45 cm. cm. Right Basilic Vein mid bicep measures 0.39 x Basilic vein at bicep measures 0.41 x 0.41 0.38 cm. cm. Right Basilic Vein above antecub measures Basilic vein above antecub measures 0.36 x 0.45 x 0.43 cm. 0.37 cm. Right Brachial artery measures 0.53 x 0.56 Left Brachial artery 1 measures 0.45 x 0.44 cm with a velocity of 81.6 cm/sec. cm with a velocity of 73.8 cm/sec. Right Radial artery measures 0.19 x 0.19 cm Left Brachial artery 2 measures 0.34 x 0.35 with a velocity of 66 cm/sec. cm with a velocity of 75.1 cm/sec. Left Radial artery measures 0.26 x 0.25 cm with a velocity of 67.3 cm/sec. VL/Saphenous Vein Mapping, Bilat Interpretation Summary Patent and compressible bilateral upper extremity cephalic and basilic veins wi th generous dimensions as noted. Normal diameter and flow right brachial artery. Bifid left brachial artery with normal diameter and flow. Small right radial artery with normal flow. Normal left radial artery and flow Ordering Physician: Yfn Howell Referring Physician: Masha Treviño M.D. Performed By: Janee Laguna RVT ?
== END 2021-05-04 23:59 | disposition short-term general hospital (02) ==
PROVIDERS: PCP Family Medicine; Referring Provider Internal Medicine Nephrology; Visit Provider Internal Medicine Nephrology
DX: Z01.818 Encounter for other preprocedural examination (principal); N18.4 Chronic kidney disease, stage 4 (severe)
CPT/HCPCS: 93970; 93985

== ENCOUNTER 2021-06-03 13:10 | Outpatient (CLI) | payer MEDICARE, OTHER, SELFPAY ==
[2020-11-21 14:37] VITALS: BMI 39.9
--- NOTE | 2021-06-03 13:13 | US_ITS ---
STUDY: ULTRASOUND BREAST - RIGHT REASON FOR EXAM: Male, 81 years old. Right axillary palpable abnormality. TECHNIQUE: Axial and longitudinal images of the RIGHT breast were performed with a high resolution ultrasound transducer. # OF IMAGES: 72 COMPARISON: None. FINDINGS: RIGHT Breast: Imaging of the right axilla was performed. 3 lymph nodes are seen in the right axillary region. The largest lymph node measures 3.7 cm x 3.6 cm x 1.7 cm. Central echogenic hilum is seen. IMPRESSION: Dominant 3.7 cm x 3.6 cm x 1.7 cm lymph node in the right axilla. A biopsy may be indicated. ASSESSMENT CATEGORY: BIRADS Category 4: Suspicious - Biopsy Should Be Considered. A letter regarding these results will be sent to the patient by the facility within 30 days. Electronically Signed: Cornel Powers MD at 9:52 EST , STUDY: ULTRASOUND BREAST - LEFT REASON FOR EXAM: Male, 81 years old. Left axillary lymph nodes. TECHNIQUE: Axial and longitudinal images of the LEFT breast were performed with a high resolution ultrasound transducer. # OF IMAGES: 72 COMPARISON: None. FINDINGS: LEFT Breast: Imaging of the left axillary region was performed. 5 lymph nodes are seen in the axilla. The largest measures 2 cm x 1.9 cm x 2.3 cm. Central echogenic hilum is seen. US/Breast Limited Unilateral IMPRESSION: 5 lymph nodes are seen in the left axilla. Sonographically, there appear to be within normal limits. ASSESSMENT CATEGORY: BIRADS Category 2: Benign. A letter regarding these results will be sent to the patient by the facility within 30 days. Electronically Signed: Cornel Powers MD at 9:53 EST ,
== END 2021-06-03 23:59 | disposition home or self-care (01) ==
PROVIDERS: PCP Family Medicine; Referring Provider Surgery; Visit Provider Surgery
DX: R92.8 Other abnormal and inconclusive findings on diagnostic imaging of breast (principal)
CPT/HCPCS: 76642

== ENCOUNTER 2021-06-16 09:00 | Outpatient (RCR) | payer MEDICARE, OTHER, SELFPAY ==
[2020-11-21 14:37] VITALS: BMI 39.9
[2021-06-02 08:20] VITALS: BP 115/82; PULSE 89; RESP 18; TEMP 36.3; BMI 38.7
--- NOTE | 2021-06-02 09:04 | HP.PCM_ITS ---
History of Present Illness Date of Service: 06/02/21 Chief Complaint: Right leg venous ulceration History of Wound: This 81-year-old male presents to the wound care center with a right posterior leg wound present for 3 weeks. Patient notes edema to bilateral lower extremity. Patient reports he is taking Lasix to help assess lower extremity edema. Patient notes frequent leg wounds started as blisters, these typically heal after couple days, but this current wound has persisted. Patient has medical history of type 2 diabetes, chronic kidney disease, former smoker. He denies any fever, chills, nausea, vomiting, chest pain, calf pain, shortness of breath. He denies any purulent drainage from the wound site, does admit pain to the wound site. Patient notes that he typically would dress his wounds with antibiotic ointment and Band-Aids he notes that he has compression stockings at home, but they are difficult to put on so he does not use them. He notes that he sleeps in bed and notes that his edema is at its least in the morning and worse at the end of the day after periods of dependency or prolonged ambulation. 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 heart failure) Chronic renal failure, stage 4 (severe) Diabetic neuropathy associated with type 2 diabetes mellitus Essential (primary) hypertension History of non-ST elevation myocardial infarction (NSTEMI) (12/31/19) Hyperlipidemia Hyperphosphatemia Hypothyroidism Iron deficiency anemia Ischemic cardiomyopathy Left atrial enlargement Longstanding persistent atrial fibrillation Morbid obesity Obstructive sleep apnea ANKIT (obstructive sleep apnea) Pulmonary edema (12/30/19) Type 2 diabetes mellitus Unsteady gait when walking Home Medications aspirin 81 mg PO DAILY 07/17/15 [History Last Taken 01/06/20 08:00] sodium bicarbonate 650 mg tablet 650 mg PO .q day tab 07/29/17 [History Last Taken 01/06/20 09:00] blood sugar diagnostic #20 ea 08/18/17 [History Last Taken Unknown] ipratropium bromide 2 spray NASAL BID #1 bottle 01/15/20 [Rx Last Taken Unknown] ergocalciferol (vitamin D2) 50 mcg (2,000 unit) capsule 50 mcg PO DAILY 01/24/20 [History Last Taken Unknown] ferrous sulfate 325 mg (65 mg iron) tablet 325 mg PO LUNCH #90 tab 02/06/20 [Rx Last Taken Unknown] pen needle, diabetic 32 gauge x 5/32 #100 ea 02/18/20 [Rx Last Taken Unknown] pen needle, diabetic 32 gauge x 5/32 #100 ea 05/05/20 [Rx Last Taken Unknown] isosorbide mononitrate 30 mg tablet,extended release 24 hr 30 mg PO DAILY #90 tab 08/04/20 [Rx Last Taken Unknown] doxazosin 1 mg tablet 1 mg PO QHS #90 tab 12/11/20 [Rx Last Taken Unknown] hydralazine 50 mg tablet 50 mg PO TID #270 tab 12/11/20 [Rx Last Taken Unknown] metoprolol succinate 100 mg tablet,extended release 24 hr 100 mg PO DAILY #90 tab 12/11/20 [Rx Last Taken Unknown] furosemide 40 mg tablet 80 mg PO DAILY PRN tab 01/30/21 [History Last Taken Unknown] insulin glargine 100 unit/mL (3 mL) subcutaneous pen 14 unit SUBCUT QHS #15 ml 05/15/21 [Rx Last Taken Unknown] levothyroxine 75 mcg tablet 75 mcg PO DAILY #30 tab 05/22/21 [Rx Last Taken Unknown] lovastatin 40 mg PO QPM 06/02/21 [History Last Taken Unknown] spironolactone 25 mg PO MOWEFR 06/02/21 [History Last Taken Unknown] warfarin 5 mg PO SUMOWETHFR 06/02/21 [History Last Taken Unknown] warfarin 7.5 mg PO TUSA 06/02/21 [History Last Taken Unknown] Allergy/AdvReac Type Severity Reaction Status Date / Time Penicillins AdvReac Severe Swelling Verified 06/02/21 08:48 Family History Father , age 79, of embolism CAD (coronary artery disease) Embolism Myocardial infarction Mother , age 74 Kidney disease renal failure Brother Kidney disease Sister Breast cancer Surgical History History of back surgery (01/2019) History of coronary artery stent placement (06/03/15) History of left heart catheterization (01/03/20) History of total right knee replacement (TKR) Social History Smoking Status: Former smoker how long ago did patient quit smokin second hand exposure: No alcohol intake: never substance use type: does not use ROS Constitutional Constitutional: Reports systems reviewed and no addt'l complaints, except as documented; Denies as per HPI, anorexia, body ache(s), change in weight, chills, daytime sleepiness, difficulty sleeping, excessive sweating, fatigue, fever(s), frequent falls, headache(s), increased appetite, lethargy, malaise, night sweats, poor appetite, snoring, stops breathing during sleep, weakness, weight gain, weight loss or other Eyes Eyes: Denies systems reviewed and no addt'l complaints, except as documented, as per HPI, none, acute decrease in peripheral vision, blindness, blind spots, bloody eye, blurry vision, burning, change in eye color, change in vision, de creased night vision, diplopia, discharge from eye(s), discongugate gaze, double vision, dry eyes, erythema, excessive blinking, exophthalmos, eye pain, floaters, foreign body, halo effect, irritation, itchy eyes, loss of central vision, loss of peripheral vision, loss of vision, miosis, mydriasis, numbness, nystagmus, other visual disturbances, periorbital itching, photophobia, ptosis, puffy eyes, requires corrective lenses, seeing flashes, spots in vision, sunken eyes, tearing, tunnel vision or other ENT HEENT: Denies systems reviewed and no addt'l complaints, except as documented, as per HPI, none, abnormal hearing, bleeding gums, change in voice, dental pain, disequillibrium, dizziness, dry mouth, dysphagia, ear discharge, ear pain, epistaxis, facial pain, foreign body in nose, halitosis, headache(s), hearing loss, hoarseness, lip swelling, loss taste/smell, mouth lesions, mouth pain, mucositis, nasal congestion, nasal discharge, nasal obstruction, nasal trauma, neck mass, neck pain, nose pain, odynophagia, otalgia, post nasal drip, rhinorrhea, sinus pain, sinus pressure, sore throat, throat swelling, tinnitus, tongue swelling, vertigo or other Vital Signs Vital Signs Vital Signs: 06/02/21 08:20 Temperature 97.3 F L Temperature Source Temporal Pulse Rate 89 Respiratory Rate 18 Blood Pressure 115/82 H Blood Pressure Mean 93 Blood Pressure Source Monitor Blood Pressure Position Sitting Blood Pressure Location Right Arm Oxygen Delivery Method Room Air Weight Weight: 115.666 kg Body Mass Index (BMI) 38.7 Physical Exam Narrative Vascular: Dorsalis pedis pulses palpable 2 out of 4 to bilateral lower extremity, posterior tibial pulses dopplerable bilaterally. Hemosiderin deposits noted to bilateral lower extremity. +2 pitting edema noted bilaterally. Diminished digital hair growth noted. Skin does appear shiny and taut. Neurologic: Light touch protective sensation is diminished to bilateral feet reestablish mid tibia. Dermatologic: Full-thickness ulceration x2 to posterior right leg, pre and post debridement measurements are documented in nursing notes. These wounds demonstrate a fibrogranular base with clean skin edges, no evidence of deep probing, purulence, periwound fluctuation or crepitus, erythema. Mild pain noted to wound site. Patient has a stable bullous to the anterior right leg, serous drainage noted upon draining. There is likely partial-thickness ulceration to the site however the bullous was not excised. Musculoskeletal: Muscular strength full to bilateral lower extremity, no gross deformities noted. No pain with calf squeeze to bilateral lower extremity Debridement Note Debridement Note Wound debrided: Posterior leg Laterality: Right Type of Debridement: Excisional debridement Anesthesia Used: 5% Lidocaine Gel and Cetacaine Depth: in the subcutaneous layer Percentage of wound debrided: 100 Instrument Used: 3mm curette Post-Debridement Measurements and Additional Note: Post-Debridement Measur ements/Treatment - Nurse 1 - General Ulcer Assessment Start: 06/02/21 08:20 Freq: Status: Active Protocol: WILBER Activity Type Activity Date Activity User E-Sign Co-Sign Detail Recorded Client Recorded Date Recorded By Document 06/02/21 08:20 MW [id number] 06/02/21 08:36 MW 06/02/21 08:20 - Today's Visit Information Type of service Initial Visit Arrival Mode Ambulatory, Walker Transfer Assistance None Accompanied by Patient Identification Verified (Name & Yes ) Patient Requires Transmission-Based No Precautions Height and Weight Height 5 ft 8 in Weight 115.666 kg Weight in Pounds 255.0 lbs Weight Measurement Method Stated by Patient Body Mass Index (BMI) 38.7 BMI Classification Obese BSA - Yesica 2.27 Vital Signs Temperature (97.8 F-99.1 F) 97.3 F L Temperature Source Temporal Pulse Rate (60-100) 89 Pulse Location Monitor Respiratory Rate (12-18) 18 Respiratory rate source Observation Oxygen Delivery Method Room Air Blood Pressure (90/60-120/80) 115/82 H Blood Pressure Mean 93 Source Monitor Position Sitting Blood Pressure Location Right Arm History Since Last Visit- (Skip if this is Patient's initial visit) Left Footwear Regular Shoe Right Footwear Regular Shoe Pain Scale: 0-10 Numeric Is Patient Pain Free? Yes Lower Extremity Assessment/ Foot Assessment/ Toe Nail Assessment Right -Posterior Tibial Palpable No -Posterior Tibial Doppler Monophasic -Dorsalis Pedis Palpable Yes -Dorsalis Pedis Doppler Multiphasic -Extremity Color Dusky, Hemosiderin -Hair Growth on Legs No -Hair Growth on Toes No -Temperature of Extremity Cool -Capillary Refill Less than 3 Seconds -Dependent Rubor No -Lipodermatosclerosis No -Other Deformity No -Prior Foot Ulcer No -Charcot Joint No -Prior Amputation No -Thick No -Discolored No -Deformed No -Improper Length & Hygeine Yes Left -Posterior Tibial Palpable No -Posterior Tibial Doppler Monophasic -Dorsalis Pedis Palpable Yes -Dorsalis Pedis Doppler Monophasic -Extremity Color Dusky, Hemosiderin -Hair Growth on Legs No -Hair Growth on Toes No -Temperature of Extremity Cool -Capillary Refill Greater than 3 Seconds -Dependent Rubor No -Lipodermatosclerosis No -Other Deformity No -Prior Foot Ulcer No -Charcot Joint No -Prior Amputation No -Thick No -Discolored No -Deformed No -Improper Length & Hygeine Yes Neuropathy Assessment Feet - Top Side and Bottom <Entered> (a) Communication Assessment Preferred language [place] [employer] Sales Manager Required No Able to Read Yes Able to Write Yes Communication Tools None Caregiver Communication Skills No Impairment Impairment Right Hearing Abillity Normal Left Hearing Abillity Normal Visual Assistive Devices None Teaching Assessment Preferences Verbal,Written, Audio/Visual, Demonstration Barriers to Learning None Readiness To Learn Excellent Willingness to Engage in Self Management High Activies Readiness to Engage in Self Management High Activities Anxiety Level Calm Cooperation Cooperative Perception Coherent Interest in Health Problem Asks Questions Education Importance Acknowledges Need Does Patient Smoke tobacco or other No substances Smoking Status Former smoker Functional Assessment Recent Decline in Ability to Perform Denies Any Declines Assistive Device With Patient Yes List Device(s) with Patient walker Culture/Confucianism/Outreach Clinician Cultural/Confucianism Needs that may affect No Treatment Plan Would you allow our hospital social sciences department chair to No meet you for the purpose of spiritual/ emotional support? Outreach Clinician to contact place of gnosticist No (a) 1 - - 2 - + 3 - + WC - Nurse 1 - General Ulcer Measurement Start: 06/02/21 08:20 Freq: Status: Active Protocol: Activity Type Activity Date Activity User E-Sign Co-Sign Detail Recorded Client Recorded Date Recorded By Document 06/02/21 08:20 MW [id number] 06/02/21 08:36 MW 06/02/21 08:20 Wound Center Nurse 1 #1 right posterior LE -Combined with other wound No -Current Size (cm) - Length 3.8 -Current Size (cm) - Width 2.2 -Current Size (cm) - Depth 0.2 -Total Square Cm 8.36 -Date of Last Picture (Recall this 06/02/21 field) -Photo Taken Yes -Epithelialization None Present -Tunneling No -Undermining/Tunneling No -Circular Undermining No -Exudate Amt Medium -Exudate Type Serosanguineous -Wound Margin Flat & Intact -Granulation Amt Medium (34-66%) -Granulation Quality [place] -Slough/Fibrin Yes -Necrosis Amt Medium (34-66%) -Necrotic Tissue Type Adherent Slough -Structure Exposed N/A -Texture (Isabella-wound Skin Appearance) Assessed, Localized Edema -Moisture (Isabella-wound Skin Appearance) Assessed,Dry/ Scaly -Color (Isabella-wound Skin Appearance) Assessed, Hemosiderin Staining -Temperature (Isabella-wound Skin No Abnormality Appearance) (Pt Warm) -Tenderness on Palpation (Isabella-wound Yes Skin Appearance) -Ulcer Cleansing Rinsed/ Irrigated with Saline -Foul Odor after Cleansing No -Anesthetic Used 4% Lidocaine Solution Lower Limb Edema Present Yes Right Calf (cm) 39.6 Right Ankle (cm) 25.2 Left Calf (cm) 38.5 Left Ankle (cm) 24.7 WC - Nurse 2 - General Ulcer CM Notes Start: 06/02/21 08:20 Freq: Status: Active Protocol: Activity Type Activity Date Activity User E-Sign Co-Sign Detail Recorded Client Recorded Date Recorded By Document 06/02/21 08:53 ANAMARIA [id number] 06/02/21 09:01 ANAMARIA 06/02/21 08:53 Wound Center Nurse 2 #1 right posterior LE -Time 09:00 -Correct Patient Yes -Correct Side, Site, Position Yes -Correct Procedure Yes -Procedure Performed Yes -Type of Procedure Debridement -Clinical Debridement Subcutaneous -Tissue Removed Subcutaneous -Post Debridement (cm) - Length 3.3 -Post Debridement (cm) - Width 2.3 -Post Debridement (cm) - Depth 0.2 -Total Square (Post) (cm) 7.59 -Area of Debridement (cm) - Length 3.3 -Area of Debridement (cm) - Width 2.3 -Total Square (Area) (cm) 7.59 -Tunneling No -Undermining/Tunneling No -Circular Undermining No -Wound/Ulcer Outcome Not Healed -Ulcer Cleansing Rinsed/ Irrigated with Saline -Foul Odor after Cleansing No -Bioengineered Tissue No -Bleeding Controlled with Pressure -Offloading No -Treatment Response Procedure Tolerated Well -Debridement - Subq, 1st 20sq cm Yes Pain Scale: 0-10 Numeric Is Patient Pain Free? Yes Assessment/Plan Assessment/Plan (1) 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 layer exposed: CODE(S): L97.212 - 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 layer exposed PLAN: Patient examined [place] discussed patient in detail. Wound was excisionally debrided, this is documented in the debridement note. Discussed in detail the wounds etiologies at this time considered to be venous insufficiency with uncontrolled edema. Patient is being medically managed for his edema with Lasix; however, he needs additional external compression. This was discussed with the patient in detail. At this time I recommend compression elevation and exercise to assist patients edema. Today we dressed the wound with Lala dry sterile dressing and a double layer Tubigrip. He will perform this dressing on a daily basis. His previous labs were reviewed and notes well-controlled diabetes and no sheri kocytosis or anemia. Due to history of chronic kidney disease with possible transition to hemodialysis. I recommend noninvasive vascular studies to rule out any peripheral arterial disease contributing to the nonhealing portion of this wound. I personally feel that with better edema management this patient's wounds will heal and this will prevent recurrence in the future. This was discussed with the patient in detail. We will see the patient back in 2 weeks for further management. (2) Peripheral vascular disease, unspecified: CODE(S): I73.9 - Peripheral vascular disease, unspecified
[2021-06-16 09:11] VITALS: BP 125/75; PULSE 64; RESP 18; TEMP 35.7; BMI 38.7
--- NOTE | 2021-06-16 10:09 | PCM.PROGNOTE ---
Subjective Subjective This 81-year-old male with chronic kidney disease, type 2 diabetes with peripheral neuropathy, coronary artery disease presents for follow-up of a right lower extremity venous ulceration. Denies any constitutional symptoms notes pain limited to wound site mainly with manipulation of the pain wound. His has been performing daily dressing changes cleansing the site with Lala dry sterile dressing and Tubigrip for compression. Denies any changes since previous visit. Objective Data Objective Data Vital Signs: Vital Signs Temp Pulse Resp BP 96.2 F L 64 18 125/75 H 06/16/21 09:11 06/16/21 09:11 06/16/21 09:11 06/16/21 09:11 Oxygen Delivery Method Room Air Weight: 115.666 kg Body Mass Index (BMI) 38.7 Physical Exam Narrative Vascular: Dorsalis pedis pulses palpable 2 out of 4 to bilateral lower extremity, posterior tibial pulses dopplerable bilaterally. Hemosiderin deposits noted to bilateral lower extremity. +2 pitting edema noted bilaterally. Diminished digital hair growth noted. Skin does appear shiny and taut suggestive of possible microvascular disease. Neurologic: Light touch protective sensation is diminished to bilateral feet reestablish mid tibia. Dermatologic: Full-thickness ulceration x2 to posterior right leg, pre and post debridement measurements are documented in nursing notes. Full-thickness ulceration anterior right leg at site of previous bullous formation no signs of infection to the site pre and post debridement measurements documented nurses notes. These wounds demonstrate a fibrogranular base with clean skin edges, no evidence of deep probing, purulence, periwound fluctuation or crepitus, erythema. Mild pain noted to wound site. Patient has a stable bullous to the anterior right leg, serous drainage noted upon draining. There is likely partial-thickness ulceration to the site however the bullous was not excised. Musculoskeletal: Muscular strength full to bilateral lower extremity, no gross deformities noted. No pain with calf squeeze to bilateral lower extremity Assessment & Plan Assessment/Plan (1) 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 layer exposed: PLAN: Patient examined evaluate, fine discussed patient in detail. Wound was excisionally debrided of all nonviable tissue down to and including the level of subcutaneous tissue, hemostasis obtained with light compression, topical lidocaine used for anesthesia. Patient was orally consented. this is documented in the debridement note. Discussed in detail the wounds etiologies at this time considered to be venous insufficiency with uncontrolled edema in setting of chronic kidney disease in a diabetic neuropathic patient. Patient is awaiting AV fistula for transition into dialysis, recent creatinine 3.6. Today we dressed the wound with Lala dry sterile dressing, Adaptic and a double layer Tubigrip. He will perform this dressing on a daily basis. Patient is scheduled to receive noninvasive vascular study. If there is no significant atherosclerotic disease within the major blood vessels of the right lower extremity will likely proceed with a 2 layer compression wrap to better manage his edema. Otherwise, if there are any significant changes we will consider referral to vascular surgery. He will follow up in 1 week. (2) Peripheral vascular disease, unspecified:
--- NOTE | 2021-06-22 09:06 | VDLE_ITS ---
Reason For Study: Bilateral leg edema RIGHT LEFT CFV is compressible, spontaneous, competent CFV is compressible, spontaneous, competent, and demonstrates pulsatile venous flow. and demonstrates pulsatile venous flow. FV is compressible, spontaneous, competent FV is compressible, spontaneous, competent and demonstrates pulsatile venous flow. and demonstrates pulsatile venous flow. POP V is compressible, spontaneous, competent POP V is compressible, spontaneous, competent and demonstrates pulsatile venous flow. and demonstrates pulsatile venous flow. T/P Trunk is compressible. T/P Trunk is compressible. PTV is compressible. PTV is compressible. RT PerV is compressible. LT PerV is compressible. SFJ is competent and measures 1.15 x 1.19 cm. SFJ is competent and measures 1.12 x 1.12 cm. GSV proximal thigh measures 0.43 x 0.47 cm. GSV proximal thigh measures 0.36 x 0.36 cm. GSV at knee measures 0.37 x 0.39 cm. GSV at knee measures 0.46 x 0.48 cm. GSV INCOMPETENT throughout for greater than GSV INCOMPETENT throughout for greater than 0.5 seconds. 0.5 seconds. ASV proximal calf is INCOMPETENT for greater ASV mid calf is INCOMPETENT for greater than than 0.5 seconds and measures 0.24 x 0.27 cm. 0.5 seconds and measures 0.41 x 0.45 cm. ASV mid calf is INCOMPETENT for greater than INCOMPETENT sr. director noted 8cm above medial 0.5 seconds and measures 0.32 x 0.35 cm. malleolus. INCOMPETENT sr. director noted 15cm above SSV at junction is competent and measures medial malleolus. 0.24 x 0.25 cm. SSV at junction is competent and measures 0.23 x 0.23 cm. Procedure This is a venous duplex using B-mode, color flow and spectral Doppler. Exam performed in department. Patient was scanned in supine position during reflux assessment. A preliminary report was called and/or faxed to . VL/Venous Duplex US - Caesar Extrem Interpretation Summary Deep veins of the lower extremities are bilaterally patent and compressible seg mentally. There is no evidence of deep vein thrombosis on either side. Valvular competence appears in tact within the proximal deep venous systems bilaterally. The great saphenous veins appear bila terally patent and compressible segmentally. Sapheno-femoral junctions are bilaterally competent . Segmental valvular incompetence is noted within the great saphenous veins bilaterally. Small saphe nous veins are patent and competent bilaterally. The accessory saphenous veins in the right proximal and mid-calf are incompetent. The accessory saphenous vein in the left mid-calf is incompetent. An incompetent sr. director vein is noted in the right calf, located 15 centimeters proximal to the right medial malleolus. An incompetent sr. director vein is identified in the left calf, locat ed 8 centimeters proximal to the left medial malleolus. Pulsatile flow is noted in the deep veno us system bilaterally, which may be indicative of elevated central venous pressure (i.e. congestive heart failure, pulmonary hypertension, etc.). Clinical correlation is advised. Ordering Physician: Gabriel Hurst Referring Physician: Masha Treviño M.D. Performed By: Janee Laguna RVT
--- NOTE | 2021-06-22 09:06 | ART_ITS ---
Reason For Study: Right leg ulcer Procedure A bilateral lower extremity continuous wave Doppler with analog waveform analysis,segmental pressures,and ankle brachial indexes without exercise. Left Segmental Pressures Left brachial= 131mmHg. Left posterior tibial artery = >254mmHg. Left dorsalis pedis artery = >254mmHg. Left digit = 88 mmHg. The left dorsalis pedis waveforms are triphasic. The left posterior tibial artery waveforms are triphasic. Right Segmental Pressures Right brachial= 141mmHg. Right posterior tibial artery = >254mmHg. Right dorsalis pedis artery = >254mmHg. Right digit = 83 mmHg. The right dorsalis pedis waveforms are triphasic. The right posterior tibial artery waveforms are triphasic. Indices The right ankle brachial index by the dorsalis pedis is NC. The right ankle brachial index by the posterior tibial artery is NC. The right digital-brachial index is 0.59. The left ankle brachial index by the dorsalis pedis is NC. The left ankle brachial index by the posterior tibial artery is NC. The left digital-brachial index is 0.62. VL/Lower Ext Art Exam w/o Exercis Interpretation Summary Triphasic Doppler waveforms are noted at ankle level bilaterally. Pulse-volume recordings demonstrate satisfactory waveform amplitudes at all levels bilaterally. Resting ankle-brachial indices could not be determined on either side due to the non-compressibility o f the vasculature at ankle level bilaterally. Digital-brachial indices are mildly diminished bilater ally. There is evidence of arterial calcification at ankle level bilaterally. There i s evidence of mild arterial occlusive disease in the lower extremities bilaterally. Ordering Physician: Gabriel Hurst Referring Physician: Masha Treviño M.D. Performed By: Janee Laguna RVT
== END 2021-06-22 23:59 ==
LOC: WC 09:00
PROVIDERS: PCP Family Medicine; Visit Provider Podiatrist
DX: E11.622 Type 2 diabetes mellitus with other skin ulcer (principal); L97.212 Non-pressure chronic ulcer of right calf with fat layer exposed; I13.0 Hypertensive heart and chronic kidney disease with heart failure and stage 1 through stage 4 chronic kidney disease, or unspecified chronic kidney disease; I50.42 Chronic combined systolic (congestive) and diastolic (congestive) heart failure; E11.22 Type 2 diabetes mellitus with diabetic chronic kidney disease; N18.4 Chronic kidney disease, stage 4 (severe); I48.19 Other persistent atrial fibrillation; E66.01 Morbid (severe) obesity due to excess calories; Z79.4 Long term (current) use of insulin; I25.5 Ischemic cardiomyopathy; E78.5 Hyperlipidemia, unspecified; I25.10 Atherosclerotic heart disease of native coronary artery without angina pectoris; I87.2 Venous insufficiency (chronic) (peripheral); D50.9 Iron deficiency anemia, unspecified; I25.2 Old myocardial infarction; G47.33 Obstructive sleep apnea (adult) (pediatric); Z68.38 Body mass index [BMI] 38.0-38.9, adult; E03.9 Hypothyroidism, unspecified; Z79.899 Other long term (current) drug therapy; Z79.01 Long term (current) use of anticoagulants; Z87.891 Personal history of nicotine dependence; Z79.82 Long term (current) use of aspirin; R60.0 Localized edema
CPT/HCPCS: 11042; 11045; 93923; 93970; 99213; G0463

== ENCOUNTER 2021-06-22 08:48 | Outpatient (CLI) | payer MEDICARE, OTHER, SELFPAY ==
[2020-11-21 14:37] VITALS: BMI 39.9
== END 2021-06-22 23:59 | disposition home or self-care (01) ==
PROVIDERS: PCP Family Medicine; Referring Provider Podiatrist; Visit Provider Podiatrist
DX: L97.919 Non-pressure chronic ulcer of unspecified part of right lower leg with unspecified severity (principal); R60.0 Localized edema

== ENCOUNTER 2021-06-22 10:42 | Outpatient (RCR) | payer MEDICARE, OTHER, SELFPAY ==
[2020-11-21 14:37] VITALS: BMI 39.9
[2021-04-26 04:13] VITALS: BMI 40.1
[2021-06-10 17:05] LABS: Absolute Lymphocyte Count 0.32 X10^3/uL (0.83-4.51); Basophil# 0.04 X10^3/uL; Eosinophil# 0.34 X10^3/uL; Eosinophils% 8.2 % (0-5); Hematocrit 26.8 % (40-54); Hemoglobin 8.5 g/dL (13.0-16.5); Lymphocyte # 0.32 X10^3/ul (0.83-4.51); Lymphocyte % 7.7 % (19-41); Mean Corp Hgb Conc 31.7 g/dL (32-36); Mean Corpuscular Hgb 27.7 pg (27.0-32.0); Mean Corpuscular Volume 87.3 fL (80-94); Mean Platelet Vol. 9.5 fl (6.2-12.0); Monocyte# 0.46 X10^3/uL; Monocyte% 11.1 % (0-10); NRBC Flagged by Analyzer 0 % (0-5); Neutrophil # 2.98 X10^3/uL (2.7-7.7); Neutrophil % 71.8 % (47-70); POSITIVE DIFFERENTIAL YES; Platelet Count 131 K/mm3 (150-450); RBC Distribution Width CV 18.1 % (11.6-14.6); RBC Distribution Width SD 56.9 fl (35.1-43.9); Red Blood Count 3.07 M/mm3 (4.6-6.2); White Blood Count 4.2 K/mm3 (4.4-11.0)
[2021-06-10 17:08] LABS: Differential Indicated SCAN CRITERIA MET
[2021-06-10 17:45] LABS: International Normalized Ratio 3.6; Prothrombin Time (Protime)PT. 34.9 SECONDS (11.7-14.9)
[2021-06-10 17:49] LABS: Differential Comment SCANNED
[2021-06-10 18:05] LABS: Anion Gap 9 (5-15); BUN 93 mg/dL (7-18); BUN/Creat Ratio 23.5 RATIO (10-20); Chloride 108 mmol/L (98-107); Creatinine, Serum 3.96 mg/dL (0.70-1.30); EST Glomerular Filtration Rate 16 mL/min (>60); Est Glom Filt Rate - Afr Amer 19 mL/min (>60); Glucose 95 mg/dL (74-106); Potassium 4.2 mmol/L (3.5-5.1); Sodium Level 137 mmol/L (136-145)
[2021-06-10 18:07] LABS: BNP,B-Type NATRIURETIC PEPTIDE 1067.9 pg/mL (0-100)
[2021-06-11 13:18] LABS: Pathologist Review Reviewed
[2021-06-22 11:18] LABS: Hematocrit 27.1 % (40-54); Hemoglobin 8.7 g/dL (13.0-16.5); Mean Corp Hgb Conc 32.1 g/dL (32-36); Mean Corpuscular Volume 87.1 fL (80-94); Mean Platelet Vol. 9.9 fl (6.2-12.0); Platelet Count 135 K/mm3 (150-450); RBC Distribution Width CV 16.7 % (11.6-14.6); Red Blood Count 3.11 M/mm3 (4.6-6.2); White Blood Count 3.8 K/mm3 (4.4-11.0)
[2021-06-22 11:27] LABS: Protein, Urine (Random) 81.9 mg/dL (<11.9); Protein:Creat Ratio 1038 mg/g CRE (0-200)
[2021-06-22 11:29] LABS: International Normalized Ratio 3.2; Prothrombin Time (Protime)PT. 31.9 SECONDS (11.7-14.9)
[2021-06-22 11:59] LABS: PTHIN 88.6 pg/mL (18.4-80.1)
[2021-06-22 12:01] LABS: Albumin, Serum 3.1 g/dL (3.2-5.0); BUN 87 mg/dL (7-18); BUN/Creat Ratio 21.8 RATIO (10-20); Calcium,Total 9.3 mg/dL (8.5-10.1); Chloride 106 mmol/L (98-107); EST Glomerular Filtration Rate 16 mL/min (>60); Est Glom Filt Rate - Afr Amer 19 mL/min (>60); Glucose 135 mg/dL (74-106); Phosphorus 4.6 mg/dL (2.5-4.9); Potassium 4.3 mmol/L (3.5-5.1); Sodium Level 135 mmol/L (136-145)
[2021-06-22 12:03] LABS: Vitamin D,25 Hydroxy 55.1 ng/mL
== END 2021-06-22 18:00 | disposition home or self-care (01) ==
LOC: LAB 10:42
PROVIDERS: Nurse Practitioner Gerontology; Family Provider Family Medicine; PCP Family Medicine; Referring Provider Internal Medicine Cardiovascular Disease; Visit Provider Internal Medicine Cardiovascular Disease
DX: I50.42 Chronic combined systolic (congestive) and diastolic (congestive) heart failure (principal); N18.4 Chronic kidney disease, stage 4 (severe); I48.11 Longstanding persistent atrial fibrillation; R06.00 Dyspnea, unspecified; Z79.01 Long term (current) use of anticoagulants; I25.5 Ischemic cardiomyopathy
CPT/HCPCS: 36415; 80048; 80069; 82306; 82570; 83880; 83970; 84156; 85025; 85027; 85610

== ENCOUNTER 2021-06-29 10:09 | Outpatient (CLI) | payer MEDICARE, OTHER, SELFPAY ==
[2020-11-21 14:37] VITALS: BMI 39.9
--- NOTE | 2021-06-29 | MISC_PTH ---
PATIENT: HANS GLASS LOC: [facility] U#:[id number] AGE/SX: 81/M ROOM: RE06/29/[address]: Dr. Steve Lunsford MD : 1940 BED: DIS: 06/29/2021 SPEC #: [id number] RECD: 06/29/21 11:49 STATUS: GUSTAVO DEWEY #: [id number] SAVANNA: 06/29/21 00:[address]: Steve Lunsford DEPT: SURGICAL PATHOLOGY RECD BY: Abraham Daniels ENTERED: 06/29/21 13:53 SP TYPE: MISC OTHR DR: Dr. Masha Treviño MD Tissues: Axilla, NOS Procedures: Surgery Specimen Level IV HEADER OPERATION: Right axilla biopsy PRE-OP DIAGNOSIS: Right axilla mass TISSUE SUBMITTED: Right axilla MICROSCOPIC DIAGNOSIS Right axilla mass, needle core biopsy: Mature adipose tissue and associated benign lymphoid tissue. See comment. AM:amadeo 06/30/2021 COMMENT The lesion may represent a lymph node replaced by fatty infiltrate. Immunohistochemistry ([id number]) supports the above diagnosis. Case has been reviewed in consultation with Dr. Burk who concurs with the above diagnosis. ARTHUR:TIFFANY MICROSCOPIC DESCRIPTION Slides are reviewed. GROSS DESCRIPTION Received in fixative is one container labeled with the patient's name and designated right axilla. The specimen consists of multiple irregular fragments of shook soft tissue that in aggregate measure 1 x 0.1 x 0.1 cm. The specimen is totally submitted in one cassette. / TIFFANY:amadeo 06/29/2021 TC:5 [facility]: [id number]
--- NOTE | 2021-06-29 | IMM_PTH ---
PATIENT: HANS GLASS LOC: [facility] U#:[id number] AGE/SX: 81/M ROOM: RE06/29/[address]: Dr. Steve Lunsford MD : 1940 BED: DIS: 06/29/2021 SPEC #: [id number] RECD: 06/30/21 13:48 STATUS: [place] REQ #: [id number] SAVANNA: 06/29/21 00:[address]: Steve Lunsford DEPT: IMMUNOHISTOCHEMISTRY RECD BY: Brittany Wu ENTERED: 06/30/21 13:49 SP TYPE: IMMUNO OTHR DR: Dr. Masha Treviño MD Tissues: Axilla, NOS Procedures: BCL-2 (add) CD20 (add) CD3 (add) CD45 (add) CD5 (add) CD79A (add) Pankeratin (initial) PHYSICIAN & INSTITUTION [place] [id number] SPECIMEN INFORMATION: Tissue Source: Right axilla Clinical Info: Right axilla mass Specimen Number: [id number] CPT code: 63220, 43130 x6 METHODOLOGY: Deparaffinized sections of prefer/formalin-fixed tissue or PAP/DQ stained slides are incubated with monoclonal/polyclonal antibodies/oligonucleotide probes. Localization is made via biotin free immunoperoxidase method. Appropriate controls are performed and reacted as expected. Results on target cell population are indicated in the following table: RESULTS: ANTIBODY / CLONE RESULT AE1-3 (AE1/AE3/PCK26) negative CD3 (PS1) positive CD5 (SP10) positive CD20 (L26) positive, rare CD45 (RP2/18) positive CD79a (11E3) positive BCL-2 (bcl-2/100/D5) positive These tests were developed and their performance characteristics determined by [facility]. They may not have been cleared or approved by the U.[place]. Food and Drug Administration. The FDA has determined that such clearance or approval is not necessary. The above immunohistochemical/dualISH markers are ordered and reviewed by the Pathologist. INTERPRETATION: Right axilla, biopsy: Polytypic (benign) lymphoid tissue. AM:amadeo 07/01/2021
--- NOTE | 2021-06-29 10:35 | US_ITS ---
STUDY: ULTRASOUND BREAST - LEFT REASON FOR EXAM: Male, 81 years old. Ultrasound guided right axillary lymph node biopsy. TECHNIQUE: Axial and longitudinal images of the LEFT breast were performed with a high resolution ultrasound transducer. # OF IMAGES: 14 COMPARISON: Comparison is made with prior sonogram dated 06/03/2021. FINDINGS: LEFT Breast: Under direct sonographic guidance, the surgeon performed core biopsies of the 3 cm x 2.5 cm by 1.6 cm right axillary lymph node. US/US Breast Biopsy 1st Lesion IMPRESSION: Successful ultrasound-guided right axillary phillip dissection. ASSESSMENT CATEGORY: BIRADS Category 2: Benign. A letter regarding these results will be sent to the patient by the facility within 30 days. Electronically Signed: Cornel Powers MD at 12:55 EST ,
--- NOTE | 2021-06-29 10:37 | PCM.HP.BLA ---
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 Is patient in pain?: No Allergies Penicillins Adverse Reaction (Severe, Verified 05/19/21 15:17) Swelling Medications aspirin 81 mg PO DAILY 07/17/15 [History Confirmed 05/19/21] sodium bicarbonate 650 mg tablet 650 mg PO .q day tab 07/29/17 [History Confirmed 05/19/21] blood sugar diagnostic #20 ea 08/18/17 [History Confirmed 05/19/21] ipratropium bromide 2 spray NASAL BID #1 bottle 01/15/20 [Rx Confirmed 05/19/21] ergocalciferol (vitamin D2) 50 mcg (2,000 unit) capsule 50 mcg PO DAILY 01/24/20 [History Confirmed 05/19/21] nitroglycerin 0.4 mg sublingual tablet 0.4 mg SUBLINGUAL Q5M PRN #25 tab 01/24/20 [Rx Confirmed 05/19/21] ferrous sulfate 325 mg (65 mg iron) tablet 325 mg PO LUNCH #90 tab 02/06/20 [Rx Confirmed 05/19/21] multivitamin 1 tab PO DAILY 02/06/20 [History Confirmed 05/19/21] pen needle, diabetic 32 gauge x 5/32 #100 ea 02/18/20 [Rx Confirmed 05/19/21] pen needle, diabetic 32 gauge x 5/32 #100 ea 05/05/20 [Rx Confirmed 05/19/21] isosorbide mononitrate 30 mg tablet,extended release 24 hr 30 mg PO DAILY #90 tab 08/04/20 [Rx Confirmed 05/19/21] spironolactone 25 mg tablet 25 mg PO MOWEFR #45 tablet 08/04/20 [Rx Confirmed 05/19/21] warfarin 5 mg tablet 5 mg PO .COMPLEX #90 tablet 08/11/20 [Rx Confirmed 05/19/21] warfarin 7.5 mg tablet 7.5 mg PO .COMPLEX #90 tablet 08/11/20 [Rx Confirmed 05/19/21] lovastatin 40 mg tablet 40 mg PO QPM #30 tab 11/06/20 [Rx Confirmed 05/19/21] latanoprost 0.005 % eye drops ml OPHTHALMIC (EYE) 11/21/20 [History Confirmed 05/19/21] doxazosin 1 mg tablet 1 mg PO QHS #90 tab 12/11/20 [Rx Confirmed 05/19/21] hydralazine 50 mg tablet 50 mg PO TID #270 tab 12/11/20 [Rx Confirmed 05/19/21] metoprolol succinate 100 mg tablet,extended release 24 hr 100 mg PO DAILY #90 tab 12/11/20 [Rx Confirmed 05/19/21] levothyroxine 75 mcg tablet 75 mcg PO DAILY #30 tab 12/30/20 [Rx Confirmed 05/19/21] furosemide 40 mg tablet 40 mg PO DAILY tab 01/30/21 [History Confirmed 05/19/21] metolazone 2.5 mg tablet 2.5 mg PO DAILY #3 tab 01/30/21 [Rx Confirmed 05/19/21] insulin glargine 100 unit/mL (3 mL) subcutaneous pen 14 unit SUBCUT QHS #15 ml 05/15/21 [Rx Confirmed 05/19/21] multivitamin with iron 1 tab PO DAILY 05/15/21 [History Confirmed 05/19/21] [facility] Medical History Acute combined systolic (congestive) and diastolic (congestive) heart failure Acute respiratory failure with hypoxia and hypercapnia (12/30/19) 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) Chronic renal failure, stage 4 (severe) Diabetic neuropathy associated with type 2 diabetes mellitus Essential (primary) hypertension History of non-ST elevation myocardial infarction (NSTEMI) (12/31/19) Hyperlipidemia Hyperphosphatemia Hypothyroidism Iron deficiency anemia Ischemic cardiomyopathy Left atrial enlargement Longstanding persistent atrial fibrillation Morbid obesity Obstructive sleep apnea ANKIT (obstructive sleep apnea) Pulmonary edema (12/30/19) Type 2 diabetes mellitus Unsteady gait when walking Surgical History History of back surgery (01/2019) History of coronary artery stent placement (06/03/15) History of left heart catheterization (01/03/20) History of total right knee replacement (TKR) Family History (Updated 05/19/21 @ 15:16 by Mildred Ag) Father , age 79, of embolism CAD (coronary artery disease) Embolism Myocardial infarction Mother , age 74 Kidney disease renal failure Brother Kidney disease Sister Breast cancer Social History Smoking Status: Former smoker how long ago did patient quit smokin second hand exposure: No alcohol intake: never substance use type: does not use HPI HPI HPI: HANS GLASS, is a 80 M who presents to the office today for surgical consultation regarding possible axillary adenopathy in referral from Dr. Ethan Guzman. The patient is also referred by for creation of an arteriovenous hemodialysis fistula. Written copies of my surgical consult recommendations will return to them. The patient has multiple medical comorbidities including atherosclerotic cardiovascular disease and history of non-ST segment elevation [place] and systolic and diastolic congestive heart failure and longstanding atrial fibrillation on chronic anticoagulation as well as diabetic neuropathy and type 2 diabetes and obesity and chronic kidney disease stage IV. The patient also has cirrhosis and massive ascites He is right arm dominant 05/04/21 Reason For Study: CKD Stage 4 Right Arm Left Arm Right Cephalic Vein at the wrist measures Left Cephalic Vein at the wrist measures 0.32 x 0.33 cm. 0.28 x 0.26 cm. Right Cephalic Vein in the forearm measures Left Cephalic Vein in the forearm measures 0.39 x 0.41 cm. 0.36 x 0.36 cm. Right Cephalic Vein below antecub measures Cephalic Vein below antecub measures 0.41 x 0.40 cm. 0.33 x 0.32 cm. Right Cephalic Vein above antecub measures Cephalic Vein above antecub measures 0.55 x 0.54 cm. 0.54 x 0.55 cm. Right Cephalic Vein mid bicep measures 0.47 Left Cephalic Vein at mid bicep measures x 0.47 cm. 0.51 x 0.51 cm. Right Cephalic Vein at the shoulder measures Left Cephalic Vein at the shoulder measures 0.46 x 0.45 cm. 0.49 x 0.48 cm. Right Basilic Vein at the origin measures Basilic vein at origin measures 0.48 x 0.47 0.41 x 0.45 cm. cm. Right Basilic Vein mid bicep measures 0.39 x Basilic vein at bicep measures 0.41 x 0.41 0.38 cm. cm. Right Basilic Vein above antecub measures Basilic vein above antecub measures 0.36 x 0.45 x 0.43 cm. 0.37 cm. Right Brachial artery measures 0.53 x 0.56 Left Brachial artery 1 measures 0.45 x 0.44 cm with a velocity of 81.6 cm/sec. cm with a velocity of 73.8 cm/sec. Right Radial artery measures 0.19 x 0.19 cm Left Brachial artery 2 measures 0.34 x 0.35 with a velocity of 66 cm/sec. cm with a velocity of 75.1 cm/sec. Left Radial artery measures 0.26 x 0.25 cm with a velocity of 67.3 cm/sec. VL/Saphenous Vein Mapping, Bilat Interpretation Summary Patent and compressible bilateral upper extremity cephalic and basilic veins with generous dimensions as noted. Normal diameter and flow right brachial artery. Bifid left brachial artery with normal diameter and flow. Small right radial artery with normal flow. Normal left radial artery and flow Ordering Physician: Yfn Howell Referring Physician: Masha Treviño M.D. Performed By: Janee Laguna RVT ? 05/04/21 1619Date Steve Lunsford MD January 11, [address] Stuart Posada MD on 01/11/21 at 2007 ADDENDUM There are multiple small nodules anteriorly in the right middle lobe measuring up to 6 mm. These are incompletely evaluated. Refer to subsequent CT chest for more complete evaluation. Electronically Signed: Stuart Posada MD at 20:07 EDT Tel , Service support , 01/11/212006Date cc: Dr. Masha Treviño MD; Dr. Keegan Hines DO ~*Signed ADDENDUM by Dr. Stuart Posada MD on 01/11/[address]/Abdomen/Pelvis without Cont 01/11/212013Date cc: Dr. Masha Treviño MD; Dr. Keegan Hines DO ~*Signed STUDY: CT ABDOMEN AND PELVIS WITHOUT CONTRAST REASON FOR EXAM: Male, 80 years old. Testicular swelling abdominal distention RADIATION DOSAGE (If Supplied By Facility): CTDIvol = ( 11.72 ) mGy, DLP = ( 1536.70 ) mGycm TECHNIQUE: Transaxial images were obtained from the dome of the diaphragm to the symphysis pubis without oral contrast, and without intravenous contrast. Sagittal and coronal images were reconstructed. Individualized dose optimization techniques were used for this CT. COMPARISON: None. FINDINGS: There is a small right pleural effusion and bilateral basal atelectasis. There is a benign partially calcified right lower lung granuloma. Coronary arteries are severely diseased. Left atrium is moderately enlarged. Left ventricle is normal. Liver is cirrhotic. There is large amount of ascites. There is anasarca and diffuse mesenteric edema. Detection of intra-abdominal inflammatory change is not possible. Adrenals, spleen and pancreas are normal. The left kidneys are small and atrophic bilaterally with multiple cysts and vascular calcifications. Aorta is normal in diameter with moderate to severe calcifications. There is no intestinal obstruction. Bladder is normal. Osseous structures are intact with L3-L4 and L4-L5 remote laminectomy and bilateral L5 lysis and grade 1 anterolisthesis. There is no hardware placement. There is extensive scrotal edema and hydroceles. CT/Abdomen/Pelvis without Cont IMPRESSION: 1. Cirrhosis with large amount of ascites. 2. Renal atrophy, probably chronic renal disease/failure. 3. Severe coronary artery disease. 4. Hydrostatic scrotal edema and hydroceles. Electronically Signed: Stuart Posada MD at 19:56 EDT Tel , Service support , ROS General General: Yes fatigue; No weight change, appetite, colon cancer, breast cancer or weakness HEENT HEENT: No difficulty swallowing, eye injury, eye surgery, swollen glands or hoarseness Endo Endocrine: Yes diabetes mellitus; No thyroid disease, thyroid cancer, Hair loss, heat intolerance or cold intolerance Skin Skin: No rash or changing moles Musc Musculoskeletal: No back problems, arthritis, rheumatoid arthritis, gout or joint pain Cardio Cardiovascular: Yes heart disease, high blood pressure, heart attack and heart stent; No murmur, pacemaker, atrial fibrillation, palpitations, shortness of breat with exertion or chest pain Psych Psychiatric: No depression, anxiety or hearing voices Resp Respiratory: Yes shortness of breath, Yes sleep apnea, No cough, No COPD, No asthma, No emphysema and No wheezing Gastro Gastrointestinal: No abdominal pain, No nausea or vomiting, No diarrhea, No constipation, No blood in stool, No acid reflux, No hemorrhoids, No ulcers, No gallbladder problem and No black,tarry stools [place] Hematologic: Yes blood thinners, No blood disorders, No bleeding, Yes anemia and No blood clots Additional Details: Coumadin, ASA Neuro Neurologic: No system reviewed and no additional complaints, except as documented, No as per HPI, No abnormal gait, No abnormal hearing, No abnormal movements, No abnormal speech, No behavioral changes, No burning sensations, No confusion, No convulsions, No disequilibrium, No dizziness, No localized weakness, No frequent falls, No headache(s), No lack of coordination, No loss of vision, No memory loss, No numbness, No other visual disturbances, No radicular pain, No restless legs, No sensory deficit, No syncope, No tingling, No tremor(s), No weakness and No other Exam Const General: cooperative, comfortable and ill appearing Nutritional Appearance: obese Orientation: alert and awake [facility] Head: normal to inspection Neck Neck: normal visual inspection Chest Other: Muscular atrophy noted Resp Effort & Inspection: normal respiratory effort Auscultation: clear to auscultation bilaterally Cardio Other: Irregular, GI Other: Markedly protuberant and distended with fluid wave Skin Other: Self induced excoriated abrasions bilateral forearms covered with Band-Aids. Bilateral upper extremity areas of diffuse ecchymosis Neuro General: patient alert, patient awake and patient oriented x3 Extrem General: no calf tenderness Other: Left radial artery not palpable. Marked areas of ecchymosis left upper extremity. Abrasion lateral left proximal forearm, 3+ left brachial pulse. Visualized patent and compressible left upper arm cephalic vein. Fibrofatty fullness bilateral axilla, shotty mobile lymph nodes right axilla, slightly more prominent though mobile and rubbery left axillary lymph nodes. Ultrasound inspection demonstrates a left axillary lymph nodes slightly difficult to image. Dramatic enlargement not identified. Psych Appearance: grossly normal Assessment and Plan Assessment and Plan (1) Atherosclerotic heart disease of [place] coronary artery without angina pectoris: Status: Chronic Qualifiers: [place] vs. transplanted heart: [place] heart Qualified Code(s): I25.10 - Atherosclerotic heart disease of [place] coronary artery without angina pectoris (2) Chronic combined systolic and diastolic CHF (congestive heart failure): Status: Chronic (3) Ischemic cardiomyopathy: Status: Chronic Comment: 40% EF with wall motion abnormalities on cardiac catheterization on 01/03/2020 (4) Longstanding persistent atrial fibrillation: Status: Chronic (5) Obesity: Status: Chronic Qualifiers: Body mass index: BMI 40.0-44.9 Obesity classification: adult class 3 (BMI >= 40) Obesity type: due to excess calories Serious obesity comorbidity presence: with serious comorbidity Qualified Code(s): E66.01 - Morbid (severe) obesity due to excess calories; Z68.41 - Body mass index [BMI]40.0-44.9, adult (6) Chronic renal failure, stage 4 (severe): Status: Chronic (7) Cirrhosis of liver with ascites: Status: Acute Plan - Dr. Steve Lunsford MD: 80-year-old gentleman. He has multiple significant medical comorbidities. June 03, 2021 STUDY: ULTRASOUND BREAST - RIGHT REASON FOR EXAM: Male, 81 years old. Right axillary palpable abnormality. TECHNIQUE: Axial and longitudinal images of the RIGHT breast were performed with a high resolution ultrasound transducer. # OF IMAGES: 72 COMPARISON: None. FINDINGS: RIGHT Breast: Imaging of the right axilla was performed. 3 lymph nodes are seen in the right axillary region. The largest lymph node measures 3.7 cm x 3.6 cm x 1.7 cm. Central echogenic hilum is seen. IMPRESSION: Dominant 3.7 cm x 3.6 cm x 1.7 cm lymph node in the right axilla. A biopsy may be indicated. ASSESSMENT CATEGORY: BIRADS Category 4: Suspicious - Biopsy Should Be Considered. A letter regarding these results will be sent to the patient by the facility within 30 days. Electronically Signed: Cornel Powers MD at 9:52 EST , STUDY: ULTRASOUND BREAST - LEFT REASON FOR EXAM: Male, 81 years old. Left axillary lymph nodes. TECHNIQUE: Axial and longitudinal images of the LEFT breast were performed with a high resolution ultrasound transducer. # OF IMAGES: 72 COMPARISON: None. FINDINGS: LEFT Breast: Imaging of the left axillary region was performed. 5 lymph nodes are seen in the axilla. The largest measures 2 cm x 1.9 cm x 2.3 cm. Central echogenic hilum is seen. US/Breast Limited Unilateral IMPRESSION: 5 lymph nodes are seen in the left axilla. Sonographically, there appear to be within normal limits. ASSESSMENT CATEGORY: BIRADS Category 2: Benign. A letter regarding these results will be sent to the patient by the facility within 30 days. Electronically Signed: Cornel Powers MD at 9:53 EST , In an attempt to assist Dr. Ethan Guzman with the management this patient because of the abnormal right axillary ultrasound with 3 lymph nodes felt to been identified the largest being 3.7 x 3.6 x 1.7 cm an attempt will be made to perform a ultrasound-guided needle core biopsy. The patient is aware of technique, benefit, risk, alternatives. This will be performed in the ultrasound suite under local anesthesia. Steve Lunsford M.D., F.A.C.S.
--- NOTE | 2021-06-29 11:29 | PCM.OPRPT ---
Problems Associated Problem List Diagnoses (1) Axillary adenopathy: Report of Operation Date of Procedure: 06/29/21 Pre-Operative Diagnosis: Suspected right axillary adenopathy Post-Operative Diagnosis: Possible enlarged right axillary lymph node versus lipoma Surgery/Procedure Performed:: Ultrasound-guided needle core biopsy right axillary soft tissue structure Description of Surgical Findings:: Timeout informed consent was obtained. The patient was taken to the ultrasound suite. Ultrasound inspection of the right axilla was performed. The item in preoperative question was felt to been identified albeit slightly smaller than previously. It seemed to have a significant amount of fibrofatty change. Difficult to assess whether represents lymph node with fat replacement versus a lipoma. The remainder of the other lymph nodes in the right axilla appear to be of normal size. The right axilla was then prepped with chlorhexidine. Under ultrasound guidance 1% lidocaine mixed 50-50 with 0.5% Marcaine was instilled as a local anesthetic. And a small stab incision was created. A 14-gauge Mon[place] needle was advanced to prefire depth. A single core was obtained and on ultrasound section the core appeared to be absolutely center within the area of concern. A marking clip was then left in position and was felt to be on the posterior aspect of the soft tissue structure. Pressure was held for hemostasis. Steri-Strip Telfa OpSite dressing applied. The specimen had been immediately placed in formalin for analysis. No apparent complications he tolerated the procedure very well. Blood loss was minimal. Steve Lunsford M.D., F.A.C.S. Surgeon: Steve Lunsford Type of Anesthesia: Local
== END 2021-06-29 23:59 | disposition home or self-care (01) ==
LOC: OPUS 10:10
PROVIDERS: PCP Family Medicine; Visit Provider Surgery
DX: R92.8 Other abnormal and inconclusive findings on diagnostic imaging of breast (principal)
CPT/HCPCS: 19083; 88305; 88341; 88342

== ENCOUNTER 2021-07-01 12:47 | Outpatient (CLI) | payer MEDICARE, OTHER, SELFPAY ==
[2020-11-21 14:37] VITALS: BMI 39.9
--- NOTE | 2021-07-01 12:52 | ECHOD_ITS ---
Reason For Study: DYSPNEA/SOB Procedure This was a 2D Doppler, Color Flow transthoracic echocardiogram. Exam performed in department. Left Ventricle Normal LV size. The estimated ejection fraction is 50 %. Left ventricular systolic function is lower limits of normal. No regional wall motion abnormalities noted. Right Ventricle Moderately dilated right ventricle. Mild global right ventricular systolic dysfunction. Atria The left atrium is moderately enlarged. The right atrium is mildly enlarged. Mitral Valve There is mild mitral annular calcification. Mild (1+) eccentric mitral valve insufficiency. Tricuspid Valve Normal tricuspid valve. Moderate (2+) tricuspid valve insufficiency. Pulmonary artery systolic pressure is 63 mmHg. Moderate pulmonary hypertension. Aortic Valve Trisinus/trileaflet aortic valve. Mild focal aortic valve calcification. Peak aortic valve gradient 19 mmHg. Mean aortic valve gradient 12 mmHg. Pulmonic Valve Normal pulmonic valve. Great Vessels Normal aortic root. The pulmonary artery is normal size. The inferior vena cava is dilated. Pericardium/Pleural No pericardial effusion. MMode/2D Measurements & Calculations LVIDd: 5.3 cm IVSd: 1.1 cm LVOT diam: 2.0 cm LVIDs: 3.9 cm LVPWd: 1.3 cm LVOT area: 3.3 cm2 RVDd: 4.5 cm FS: 27.0 % Ao root diam: 3.4 cm LAV(MOD-bp): 84.8 ml LVAd ap4: 39.6 cm2 LAV(MOD-bp) Indexed: 37.0 ml/m2 LVLd ap4: 8.5 cm LAV(MOD-sp2): 79.8 ml EDV(MOD-sp4): 152.1 ml LAV(MOD-sp4): 88.1 ml EDV(sp4-el): 157.6 ml LVAs ap4: 28.5 cm2 LVLs ap4: 8.0 cm ESV(MOD-sp4): 82.9 ml ESV(sp4-el): 85.5 ml EF(MOD-sp4): 45.5 % EF(sp4-el): 45.7 % SV(MOD-sp4): 69.2 ml SV(sp4-el): 72.1 ml LA A4 area: 26.3 cm2 LA dimension(2D): 5.4 cm RA A4 area: 21.6 cm2 Doppler Measurements & Calculations MV E max raj: 148.9 cm/sec Ao V2 max: 217.0 cm/sec LV V1 max: 95.5 cm/sec Ao max P.0 mmHg LV V1 max P.7 mmHg Ao V2 mean: 156.9 cm/sec LV V1 mean P.9 mmHg Ao mean P.2 mmHg LV V1 mean: 61.9 cm/sec Ao V2 VTI: 53.6 cm LV V1 VTI: 24.2 cm ERICA(I,D): 1.5 cm2 ERICA(V,D): 1.4 cm2 SV(LVOT): 79.3 ml PA V2 max: 74.5 cm/sec TR max raj: 377.3 cm/sec TR max P.0 mmHg ECHO/Echo Complete Interpretation Summary Normal LV size. The estimated ejection fraction is 50 %. Left ventricular systolic function is lower limits of normal. Moderately dilated right ventricle. Mild global right ventricular systolic dysfunction. Mild (1+) eccentric mitral valve insufficiency. Pulmonary artery systolic pressure is 63 mmHg. Moderate pulmonary hypertension. Ordering Physician: Ace Betancur/Russ Boss Referring Physician: FELIZ MELLO Performed By: Gloria Correa RDCS
== END 2021-07-01 23:59 | disposition home or self-care (01) ==
LOC: CVS 12:51
PROVIDERS: PCP Family Medicine; Referring Provider Nurse Practitioner Gerontology; Visit Provider Nurse Practitioner Gerontology
DX: R06.00 Dyspnea, unspecified (principal); I50.42 Chronic combined systolic (congestive) and diastolic (congestive) heart failure
CPT/HCPCS: 93306

== ENCOUNTER 2021-07-14 09:15 | Outpatient (RCR) | payer MEDICARE, OTHER, SELFPAY ==
[2020-11-21 14:37] VITALS: BMI 39.9
[2021-06-23 00:40] VITALS: BP 125/75; PULSE 64; RESP 18; TEMP 35.7; BMI 38.7
[2021-06-23 08:57] VITALS: BP 116/71; PULSE 116; RESP 20; TEMP 35.9; BMI 38.7
--- NOTE | 2021-06-23 09:27 | PN.PCM_ITS ---
History of Present Illness Date of Service: 06/23/21 Chief Complaint: Right leg venous ulceration History of Wound: This 81-year-old male presents to the wound care center with a right posterior leg wound present for 3 weeks. Patient notes edema to bilateral lower extremity. Patient reports he is taking Lasix to help assess lower extremity edema. Patient notes frequent leg wounds started as blisters, these typically heal after couple days, but this current wound has persisted. Patient has medical history of type 2 diabetes, chronic kidney disease, former smoker. He denies any fever, chills, nausea, vomiting, chest pain, calf pain, shortness of breath. He denies any purulent drainage from the wound site, does admit pain to the wound site. Patient notes that he typically would dress his wounds with antibiotic ointment and Band-Aids he notes that he has compression stockings at home, but they are difficult to put on so he does not use them. He notes that he sleeps in bed and notes that his edema is at its least in the morning and worse at the end of the day after periods of dependency or prolonged ambulation. Objective Data Objective Data Vital Signs: Vital Signs Temp Pulse Resp BP 96.6 F L 116 H 20 H 116/71 06/23/21 08:57 06/23/21 08:57 06/23/21 08:57 06/23/21 08:57 Oxygen Delivery Method Room Air Weight: 115.666 kg Body Mass Index (BMI) 38.7 Physical Exam Narrative Vascular: Dorsalis pedis pulses palpable 2 out of 4 to bilateral lower extremity, posterior tibial pulses dopplerable bilaterally. Hemosiderin deposits noted to bilateral lower extremity. +2 pitting edema noted bilaterally. Diminished digital hair growth noted. Skin does appear shiny and taut suggestive of possible microvascular disease. Neurologic: Light touch protective sensation is diminished to bilateral feet reestablish mid tibia. Dermatologic: Full-thickness ulceration x2 to posterior right leg, pre and post debridement measurements are documented in nursing notes. Full-thickness ulceration anterior right leg at site of previous bullous formation no signs of infection to the site pre and post debridement measurements documented nurses notes. These wounds demonstrate a fibrogranular base with clean skin edges, no evidence of deep probing, purulence, periwound fluctuation or crepitus, erythema. Mild pain noted to wound site. Patient has a stable bullous to the anterior right leg, serous drainage noted upon draining. There is likely partial-thickness ulceration to the site however the bullous was not excised. Musculoskeletal: Muscular strength full to bilateral lower extremity, no gross deformities noted. No pain with calf squeeze to bilateral lower extremity Debridement Note Debridement Note Post-Debridement Measurements and Additional Note: Post-Debridement Measurements/Treatment WC - Nurse 1 - General Ulcer Assessment Start: 06/23/21 08:57 Freq: Status: Active Protocol: WILBER Activity Type Activity Date Activity User E-Sign Co-Sign Detail Recorded Client Recorded Date Recorded By Document 06/23/21 08:57 MW [id number] 06/23/21 09:05 MW 06/23/21 08:57 WC - Today's Visit Information Type of service Follow-up Visit (Physician/PRACTICING DERMATOLOGIST ) Arrival Mode Ambulatory, Walker Transfer Assistance None Accompanied by Patient Identification Verified (Name & Yes ) Patient Requires Transmission-Based No Precautions Safety Precautions Fall Prevention Finger Stick Blood Sugar(mg/dl) (if 114 indicated): Blood Sugar Stated by Patient Height and Weight Body Mass Index (BMI) 38.7 BMI Classification Obese Vital Signs Temperature (97.8 F-99.1 F) 96.6 F L Temperature Source Temporal Pulse Rate (60-100) 116 H Pulse Location Monitor Respiratory Rate (12-18) 20 H Respiratory rate source Observation Oxygen Delivery Method Room Air Blood Pressure (90/60-120/80) 116/71 Blood Pressure Mean (mm Hg) 86 Source Monitor Position Sitting Blood Pressure Location Left Arm History Since Last Visit- (Skip if this is Patient's initial visit) Have you changed medications since your No last visit? Any new allergies or adverse reactions No Had a fall/change in ADL's that may No increase risk of falls Signs or symptoms of abuse and/or No neglect since last visit Have you been in the hospital since your No last visit? Has dressing in place as prescribed Yes Has compression in place as prescribed Yes Has offloadiing in place as prescribed N/A Experienced any changes in pain level or No management Left Footwear Regular Shoe Right Footwear Regular Shoe Pain Scale: 0-10 Numeric Is Patient Pain Free? Yes CHAPO - Nurse 1 - General Ulcer Measurement Start: 06/23/21 08:57 Freq: Status: Active Protocol: Activity Type Activity Date Activity User E-Sign Co-Sign Detail Recorded Client Recorded Date Recorded By Document 06/23/21 08:57 MW [id number] 06/23/21 09:05 MW 06/23/21 08:57 Wound Center Nurse 1 #2 right wagner cluster -Combined with other wound No -Current Size (cm) - Length 2.3 -Current Size (cm) - Width 1.5 -Current Size (cm) - Depth 0.1 -Total Square Cm 3.45 -Date of Last Picture (Recall this 06/23/21 field) -Photo Taken Yes -Epithelialization None Present -Tunneling No -Undermining/Tunneling No -Circular Undermining No -Exudate Amt Small -Exudate Type Serosanguineous -Wound Margin Flat & Intact -Granulation Amt Medium (34-66%) -Granulation Quality [place] -Slough/Fibrin Yes -Necrosis Amt Medium (34-66%) -Necrotic Tissue Type Adherent Slough -Structure Exposed N/A -Texture (Isabella-wound Skin Appearance) Assessed, Localized Edema ,Scarring -Moisture (Isabella-wound Skin Appearance) Assessed,Dry/ Scaly -Color (Isabella-wound Skin Appearance) Assessed, Hemosiderin Staining -Temperature (Isabella-wound Skin No Abnormality Appearance) (Pt Warm) -Tenderness on Palpation (Isabella-wound No Skin Appearance) -Ulcer Cleansing Rinsed/ Irrigated with Saline -Foul Odor after Cleansing No -Anesthetic Used 5% Lidocaine Gel #1 right posterior LE -Combined with other wound No -Current Size (cm) - Length 4.2 -Current Size (cm) - Width 1.5 -Current Size (cm) - Depth 0.1 -Total Square Cm 6.30 -Date of Last Picture (Recall this 06/23/21 field) -Photo Taken Yes -Epithelialization None Present -Tunneling No -Undermining/Tunneling No -Circular Undermining No -Exudate Amt Small -Exudate Type Serosanguineous -Wound Margin Flat & Intact -Granulation Amt Medium (34-66%) -Granulation Quality [place] -Slough/Fibrin Yes -Necrosis Amt Medium (34-66%) -Necrotic Tissue Type Adherent Slough -Structure Exposed N/A -Texture (Isabella-wound Skin Appearance) Assessed, Localized Edema ,Scarring -Moisture (Isabella-wound Skin Appearance) Assessed,Dry/ Scaly -Color (Isabella-wound Skin Appearance) Assessed, Hemosiderin Staining -Temperature (Isabella-wound Skin No Abnormality Appearance) (Pt Warm) -Ulcer Cleansing Rinsed/ Irrigated with Saline -Foul Odor after Cleansing No -Anesthetic Used 5% Lidocaine Gel Lower Limb Edema Present Yes Right Calf (cm) 38.8 Right Ankle (cm) 25.5 WC - Nurse 2 - General Ulcer CM Notes Start: 06/23/21 08:57 Freq: Status: Active Protocol: Activity Type Activity Date Activity User E-Sign Co-Sign Detail Recorded Client Recorded Date Recorded By Document 06/23/21 09:14 ANAMARIA [id number] 06/23/21 09:21 ANAMARIA 06/23/21 09:14 Wound Center Nurse 2 #2 right wagner cluster -Time 09:19 -Correct Patient Yes -Correct Side, Site, Position Yes -Correct Procedure Yes -Procedure Performed Yes -Type of Procedure Debridement -Clinical Debridement Subcutaneous -Tissue Removed Subcutaneous -Post Debridement (cm) - Length 2.4 -Post Debridement (cm) - Width 1.5 -Post Debridement (cm) - Depth 0.1 -Total Square (Post) (cm) 3.60 -Area of Debridement (cm) - Length 2.4 -Area of Debridement (cm) - Width 1.5 -Total Square (Area) (cm) 3.60 -Tunneling No -Undermining/Tunneling No -Circular Undermining No -Wound/Ulcer Outcome Not Healed -Ulcer Cleansing Wound Cleanser -Foul Odor after Cleansing No -Bioengineered Tissue No -Bleeding Controlled with Pressure -Offloading No -Treatment Response Procedure Tolerated Well -Debridement - Subq, 1st 20sq cm No #1 right posterior LE -Time 09:20 -Correct Patient Yes -Correct Side, Site, Position Yes -Correct Procedure Yes -Procedure Performed Yes -Type of Procedure Debridement -Clinical Debridement Subcutaneous -Tissue Removed Subcutaneous -Post Debridement (cm) - Length 4.2 -Post Debridement (cm) - Width 1.6 -Post Debridement (cm) - Depth 0.1 -Total Square (Post) (cm) 6.72 -Area of Debridement (cm) - Length 4.2 -Area of Debridement (cm) - Width 1.6 -Total Square (Area) (cm) 6.72 -Tunneling No -Undermining/Tunneling No -Circular Undermining No -Wound/Ulcer Outcome Not Healed -Ulcer Cleansing Rinsed/ Irrigated with Saline -Foul Odor after Cleansing No -Bioengineered Tissue No -Bleeding Controlled with Pressure -Offloading No -Treatment Response Procedure Tolerated Well -Debridement - Subq, 1st 20sq cm Yes Pain Scale: 0-10 Numeric Is Patient Pain Free? Yes Assessment/Plan Assessment/Plan (1) Peripheral vascular disease, unspecified: CODE(S): I73.9 - Peripheral vascular disease, unspecified (2) 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 layer exposed: CODE(S): L97.212 - 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 layer exposed PLAN: Patient examined [place] discussed patient in detail. Wound was excisionally debrided, this is documented in the debridement note. Discussed in detail the wounds etiologies at this time considered to be uncontrolled edema secondary to CKD and congestive heart failure. Patient seeing hinging machine operator this week, may be going on dialysis soon. Patient undergoing echocardiogram this week as well. At this time we are using mild compression with Tubigrip stockings. Patient would do better with increased compression via 2 or 4 layer compression wrap. However, patient's vascular studies demonstrate noncompressible vessels with slightly diminished TBI's. Due to this issue and uncertain ejection fraction at this time we will hold off any high-level compression until patient is evaluated by vascular surgery and we can see what his ejection fraction is. Patient is being medically managed for his edema with Lasix; however, he needs additional external compression. This was discussed with the patient in detail. At this time I recommend compression elevation and exercise to assist patients edema. Today we dressed the wound with Lala dry sterile dressing and a double layer Tubigrip. He will perform this dressing on a daily basis. Patient will follow up in 1 to 2 weeks further management. We will consider advanced wound care products if we cannot get the wound to heal. (3) Diabetic neuropathy associated with type 2 diabetes mellitus: CODE(S): E11.40 - Type 2 diabetes mellitus with diabetic neuropathy, unspecified QUALIFIERS: Diabetes mellitus complication detail: diabetic polyneuropathy Qualified Code(s): E11.42 - Type 2 diabetes mellitus with diabetic polyneuropathy
[2021-06-30 09:05] VITALS: BP 136/69; PULSE 81; TEMP 36.1; BMI 38.7
--- NOTE | 2021-06-30 09:23 | PN.PCM_ITS ---
History of Present Illness Date of Service: 06/30/21 Chief Complaint: Right leg venous ulceration History of Wound: This 81-year-old male presents to the wound care center with a right posterior leg wound present for 3 weeks. Patient notes edema to bilateral lower extremity. Patient reports he is taking Lasix to help assess lower extremity edema. Patient notes frequent leg wounds started as blisters, these typically heal after couple days, but this current wound has persisted. Patient has medical history of type 2 diabetes, chronic kidney disease, former smoker. He denies any fever, chills, nausea, vomiting, chest pain, calf pain, shortness of breath. He denies any purulent drainage from the wound site, does admit pain to the wound site. Patient notes that he typically would dress his wounds with antibiotic ointment and Band-Aids he notes that he has compression stockings at home, but they are difficult to put on so he does not use them. He notes that he sleeps in bed and notes that his edema is at its least in the morning and worse at the end of the day after periods of dependency or prolonged ambulation. Objective Data Objective Data Vital Signs: Vital Signs Temp Pulse Resp BP 96.9 F L 81 20 H 136/69 H 06/30/21 09:05 06/30/21 09:05 06/23/21 08:57 06/30/21 09:05 Oxygen Delivery Method Room Air Weight: 115.666 kg Body Mass Index (BMI) 38.7 Physical Exam Narrative Vascular: Dorsalis pedis pulses palpable 2 out of 4 to bilateral lower extremity, posterior tibial pulses dopplerable bilaterally. Hemosiderin deposits noted to bilateral lower extremity. +2 pitting edema noted bilaterally. Diminished digital hair growth noted. Skin does appear shiny and taut suggestive of possible microvascular disease. Neurologic: Light touch protective sensation is diminished to bilateral feet reestablish mid tibia. Dermatologic: Full-thickness ulceration x2 to posterior right leg, pre and post debridement measurements are documented in nursing notes. Full-thickness ulceration anterior right leg at site of previous bullous formation no signs of infection to the site pre and post debridement measurements documented nurses notes. These wounds demonstrate a fibrogranular base with clean skin edges, no evidence of deep probing, purulence, periwound fluctuation or crepitus, erythema. Mild pain noted to wound site. Patient has a stable bullous to the anterior right leg, serous drainage noted upon draining. There is likely partial-thickness ulceration to the site however the bullous was not excised. Musculoskeletal: Muscular strength full to bilateral lower extremity, no gross deformities noted. No pain with calf squeeze to bilateral lower extremity Debridement Note Debridement Note Post-Debridement Measurements and Additional Note: Post-Debridement M easurements/Treatment - Nurse 1 - General Ulcer Assessment Start: 06/23/21 08:57 Freq: Status: Active Protocol: WILBER Activity Type Activity Date Activity User E-Sign Co-Sign Detail Recorded Client Recorded Date Recorded By Document 06/23/21 08:57 MW [id number] 06/23/21 09:05 MW Document 06/30/21 09:05 KR [id number] 06/30/21 09:10 KR 06/23/21 06/30/21 08:57 09:05 - Today's Visit Information Type of service Follow-up Visit Follow-up Visit (Physician/PATIENT SERVICE REPRESENTATIVE (Physician/PATIENT SERVICE REPRESENTATIVE ) ) Arrival Mode Ambulatory, Ambulatory Walker Transfer Assistance None Accompanied by Patient Identification Verified (Name & Yes Yes ) Patient Requires Transmission-Based No Precautions Safety Precautions Fall Prevention Finger Stick Blood Sugar(mg/dl) (if 114 indicated): Blood Sugar Stated by Patient Height and Weight Body Mass Index (BMI) 38.7 38.7 BMI Classification Obese Obese Vital Signs Temperature (97.8 F-99.1 F) 96.6 F L 96.9 F L Temperature Source Temporal Temporal Pulse Rate (60-100) 116 H 81 Pulse Location Monitor Monitor Respiratory Rate (12-18) 20 H Respiratory rate source Observation Oxygen Delivery Method Room Air Blood Pressure (90/60-120/80) 116/71 136/69 H Blood Pressure Mean (mm Hg) 86 91 Source Monitor Monitor Position Sitting Semi-Fowlers Blood Pressure Location Left Arm Right Arm History Since Last Visit- (Skip if this is Patient's initial visit) Have you changed medications since your No No last visit? Any new allergies or adverse reactions No No Had a fall/change in ADL's that may No No increase risk of falls Signs or symptoms of abuse and/or No No neglect since last visit Have you been in the hospital since your No No last visit? Has dressing in place as prescribed Yes Yes Has compression in place as prescribed Yes Yes Has offloadiing in place as prescribed N/A N/A Experienced any changes in pain level or No No management Left Footwear Regular Shoe Regular Shoe Right Footwear Regular Shoe Regular Shoe Pain Scale: 0-10 Numeric Is Patient Pain Free? Yes Yes WC - Nurse 1 - General Ulcer Measurement Start: 06/23/21 08:57 Freq: Status: Active Protocol: Activity Type Activity Date Activity User E-Sign Co-Sign Detail Recorded Client Recorded Date Recorded By Document 06/23/21 08:57 MW [id number] 06/23/21 09:05 MW Document 06/30/21 09:05 KR [id number] 06/30/21 09:10 KR 06/23/21 06/30/21 08:57 09:05 Wound Center Nurse 1 #2 right wagner cluster -Combined with other wound No -Current Size (cm) - Length 2.3 1.8 -Current Size (cm) - Width 1.5 0.5 -Current Size (cm) - Depth 0.1 0.1 -Total Square Cm 3.45 0.90 -Date of Last Picture (Recall this 06/23/21 field) -Photo Taken Yes -Epithelialization None Present -Tunneling No -Undermining/Tunneling No -Circular Undermining No -Exudate Amt Small Small -Exudate Type Serosanguineous Serosanguineous -Wound Margin Flat & Intact Distinct, Outline Attached -Granulation Amt Medium (34-66%) -Granulation Quality Cotter -Slough/Fibrin Yes -Necrosis Amt Medium (34-66%) Large (67-100%) -Necrotic Tissue Type Adherent Slough Adherent Slough -Structure Exposed N/A -Texture (Isabella-wound Skin Appearance) Assessed, Assessed, Localized Edema Scarring ,Scarring -Moisture (Isabella-wound Skin Appearance) Assessed,Dry/ No Abnormality, Scaly Assessed -Color (Isabella-wound Skin Appearance) Assessed, No Abnormality, Hemosiderin Assessed Staining -Temperature (Isabella-wound Skin No Abnormality No Abnormality Appearance) (Pt Warm) (Pt Warm) -Tenderness on Palpation (Isabella-wound No No Skin Appearance) -Ulcer Cleansing Rinsed/ Rinsed/ Irrigated with Irrigated with Saline Saline -Foul Odor after Cleansing No No -Anesthetic Used 5% Lidocaine 4% Lidocaine Gel Solution #1 right posterior LE -Combined with other wound No -Current Size (cm) - Length 4.2 3 -Current Size (cm) - Width 1.5 1.4 -Current Size (cm) - Depth 0.1 0.1 -Total Square Cm 6.30 4.2 -Date of Last Picture (Recall this 06/23/21 field) -Photo Taken Yes -Epithelialization None Present -Tunneling No -Undermining/Tunneling No -Circular Undermining No -Exudate Amt Small Small -Exudate Type Serosanguineous Serosanguineous -Wound Margin Flat & Intact Distinct, Outline Attached -Granulation Amt Medium (34-66%) Small (1-33%) -Granulation Quality Cotter Red -Slough/Fibrin Yes -Necrosis Amt Medium (34-66%) Large (67-100%) -Necrotic Tissue Type Adherent Slough Adherent Slough -Structure Exposed N/A -Texture (Isabella-wound Skin Appearance) Assessed, Assessed, Localized Edema Scarring ,Scarring -Moisture (Isabella-wound Skin Appearance) Assessed,Dry/ No Abnormality, Scaly Assessed -Color (Isabella-wound Skin Appearance) Assessed, No Abnormality, Hemosiderin Assessed Staining -Temperature (Isabella-wound Skin No Abnormality No Abnormality Appearance) (Pt Warm) (Pt Warm) -Tenderness on Palpation (Isabella-wound No Skin Appearance) -Ulcer Cleansing Rinsed/ Rinsed/ Irrigated with Irrigated with Saline Saline -Foul Odor after Cleansing No No -Anesthetic Used 5% Lidocaine 4% Lidocaine Gel Solution Lower Limb Edema Present Yes Right Calf (cm) 38.8 Right Ankle (cm) 25.5 WC - Nurse 2 - General Ulcer CM Notes Start: 06/23/21 08:57 Freq: Status: Active Protocol: Activity Type Activity Date Activity User E-Sign Co-Sign Detail Recorded Client Recorded Date Recorded By Document 06/23/21 09:14 ANAMARIA [id number] 06/23/21 09:21 Document 06/30/21 09:17 [id number] 06/30/21 09:20 06/23/21 06/30/21 09:14 09:17 Wound Center Nurse 2 #2 right wagner cluster -Time 09:19 09:18 -Correct Patient Yes Yes -Correct Side, Site, Position Yes Yes -Correct Procedure Yes Yes -Procedure Performed Yes Yes -Type of Procedure Debridement Debridement -Clinical Debridement Subcutaneous Subcutaneous -Tissue Removed Subcutaneous Subcutaneous -Post Debridement (cm) - Length 2.4 1.2 -Post Debridement (cm) - Width 1.5 0.5 -Post Debridement (cm) - Depth 0.1 0.1 -Total Square (Post) (cm) 3.60 0.60 -Area of Debridement (cm) - Length 2.4 1.2 -Area of Debridement (cm) - Width 1.5 0.5 -Total Square (Area) (cm) 3.60 0.60 -Tunneling No No -Undermining/Tunneling No No -Circular Undermining No No -Wound/Ulcer Outcome Not Healed Not Healed -Ulcer Cleansing Wound Cleanser Rinsed/ Irrigated with Saline -Foul Odor after Cleansing No No -Bioengineered Tissue No No -Bleeding Controlled with Pressure Pressure -Offloading No No -Treatment Response Procedure Procedure Tolerated Well Tolerated Well -Debridement - Subq, 1st 20sq cm No No #1 right posterior LE -Time 09:20 09:19 -Correct Patient Yes Yes -Correct Side, Site, Position Yes Yes -Correct Procedure Yes Yes -Procedure Performed Yes Yes -Type of Procedure Debridement Debridement -Clinical Debridement Subcutaneous Subcutaneous -Tissue Removed Subcutaneous Subcutaneous -Post Debridement (cm) - Length 4.2 2.2 -Post Debridement (cm) - Width 1.6 1.0 -Post Debridement (cm) - Depth 0.1 0.1 -Total Square (Post) (cm) 6.72 2.20 -Area of Debridement (cm) - Length 4.2 2.2 -Area of Debridement (cm) - Width 1.6 1.0 -Total Square (Area) (cm) 6.72 2.20 -Tunneling No No -Undermining/Tunneling No No -Circular Undermining No No -Wound/Ulcer Outcome Not Healed Not Healed -Ulcer Cleansing Rinsed/ Rinsed/ Irrigated with Irrigated with Saline Saline -Foul Odor after Cleansing No No -Bioengineered Tissue No No -Bleeding Controlled with Pressure Pressure -Offloading No No -Treatment Response Procedure Procedure Tolerated Well Tolerated Well -Debridement - Subq, 1st 20sq cm Yes Yes Pain Scale: 0-10 Numeric Is Patient Pain Free? Yes Yes WC - Nurse 3 - General Ulcer D/C NN Start: 06/23/21 08:57 Freq: Status: Active Protocol: Activity Type Activity Date Activity User E-Sign Co-Sign Detail Recorded Client Recorded Date Recorded By Document 06/23/21 09:31 [facility] [id number] 06/23/21 09:33 [facility] 06/23/21 09:31 Wound Care Nurse 3 #2 right wagenr cluster -Ulcer Cleansing Rinsed/ Irrigated with Saline -Foul Odor after Cleansing No -Primary Dressing Applied NonAdherent Contact Layer -Primary Dressing Covered/Secured with Dry Gauze & Roll Gauze, Secured with Tape -Other Covering drsg per mw rn #1 right posterior LE -Ulcer Cleansing Rinsed/ Irrigated with Saline -Foul Odor after Cleansing No -Primary Dressing Applied NonAdherent Contact Layer, Promogran Lala Matter -Primary Dressing Covered/Secured with Dry Gauze & Roll Gauze, Secured with Tape -Other Covering drsg per mw rn -Promogran Lala Matter 1 Right -Tubular Bandage Double Layer -Size of Tubigrip Used Size E -Size E ($) 1 Treatment Response Procedure Tolerated Well Pain Scale: 0-10 Numeric Is Patient Pain Free? Yes WC - Visit Discharge Discharge Condition Stable Ambulatory Status Ambulatory, Walker Transportation Private Auto Accompanied by Assessment/Plan Assessment/Plan (1) Peripheral vascular disease, unspecified: CODE(S): I73.9 - Peripheral vascular disease, unspecified (2) 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 layer exposed: CODE(S): L97.212 - 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 layer exposed PLAN: Patient examined evaluate, findings discussed with patient in detail. Wound was excisionally debrided, this is documented in the debridement note. This was down to level of subcutaneous tissue of all nonviable tissue hemostasis obtained with light compression. Topical anesthesia was used. Patient tolerated procedure well. Pre and post debridement measurements document nursing notes. Discussed in detail the wounds etiologies at this time considered to be uncontrolled edema secondary to CKD and congestive heart failure. Patient seeing manufacturing controls engineer this week, may be going on dialysis soon. Patient undergoing echocardiogram this week as well. At this time we are using mild compression with double layer Tubigrip stockings. Patient would do better with increased compression via 2 or 4 layer compression wrap. However, patient's vascular studies demonstrate noncompressible vessels with slightly diminished TBI's. Due to this issue and uncertain ejection fraction at this time we will hold off any high-level compression until patient is evaluated by vascular surgery and we can see what his ejection fraction is. Patient is being medically managed for his edema with Lasix; however, he needs additional external compression. This was discussed with the patient in detail. At this time I recommend compression elevation and exercise to assist patients edema. Today we dressed the wound with Lala dry sterile dressing and a double layer Tubigrip. He will perform this dressing on a daily basis. Patient will follow up in 1 to 2 weeks further management. We will consider advanced wound care products if we cannot get the wound to heal. (3) Diabetic neuropathy associated with type 2 diabetes mellitus: CODE(S): E11.40 - Type 2 diabetes mellitus with diabetic neuropathy, unspecified QUALIFIERS: Diabetes mellitus complication detail: diabetic polyneuropathy Qualified Code(s): E11.42 - Type 2 diabetes mellitus with diabetic polyneuropathy
[2021-07-07 08:57] VITALS: RESP 16; TEMP 36.4; BMI 38.7
--- NOTE | 2021-07-07 09:17 | PN.PCM_ITS ---
History of Present Illness Date of Service: 07/07/21 Chief Complaint: Right leg venous ulceration History of Wound: This 81-year-old male presents to the wound care center with a right posterior leg wound present. Patient notes edema to bilateral lower extremity along with significant ascites. Patient reports he is taking Lasix to help assess lower extremity edema. Patient notes frequent leg wounds started as blisters, these typically heal after couple days, but this current wound has persisted. Patient has medical history of type 2 diabetes, chronic kidney disease approaching ESRD, former smoker. He denies any fever, chills, nausea, vomiting, chest pain, calf pain, shortness of breath. He denies any purulent drainage from the wound site, does admit pain to the wound site. Patient notes that he typically would dress his wounds with antibiotic ointment and Band-Aids he notes that he has compression stockings at home, but they are difficult to put on so he does not use them. He notes that he sleeps in bed and notes that his edema is at its least in the morning and worse at the end of the day after periods of dependency or prolonged ambulation. Objective Data Objective Data Vital Signs: Vital Signs Temp Pulse Resp BP 97.6 F L 81 16 136/69 H 07/07/21 08:57 06/30/21 09:05 07/07/21 08:57 06/30/21 09:05 Oxygen Delivery Method Room Air Weight: 115.666 kg Body Mass Index (BMI) 38.7 Physical Exam Narrative Vascular: Dorsalis pedis pulses palpable 2 out of 4 to bilateral lower extremity, posterior tibial pulses dopplerable bilaterally. Hemosiderin deposits noted to bilateral lower extremity. +2 pitting edema noted bilaterally. Diminished digital hair growth noted. Skin does appear shiny and taut suggestive of possible microvascular disease. Neurologic: Light touch protective sensation is diminished to bilateral feet reestablish mid tibia. Dermatologic: Full-thickness ulceration x2 to posterior right leg, pre and post debridement measurements are documented in nursing notes. Full-thickness ulceration anterior right leg healed at this time. These wounds demonstrate a fibrogranular base with clean skin edges, no evidence of deep probing, purulence, periwound fluctuation or crepitus, erythema. Mild pain noted to wound site. Patient has a stable bullous to the anterior right leg, serous drainage noted upon draining. There is likely partial-thickness ulceration to the site however the bullous was not excised. Musculoskeletal: Muscular strength full to bilateral lower extremity, no gross deformities noted. No pain with calf squeeze to bilateral lower extremity Debridement Note Debridement Note Post-Debridement Measurements and Additional Note: Post-Debridement Measurements/Treatment - Nurse 1 - General Ulcer Assessment Start: 06/23/21 08:57 Freq: Status: Active Protocol: [facility]AP[facility].LOWEXT Activity Type Activity Date Activity User E-Sign Co-Sign Detail Recorded Client Recorded Date Recorded By Document 06/23/21 08:57 MW [id number] 06/23/21 09:05 MW Document 06/30/21 09:05 KR [id number] 06/30/21 09:10 KR Document 07/07/21 08:57 BM [id number] 07/07/21 09:01 BMF 06/23/21 06/30/21 07/07/21 08:57 09:05 08:57 - Today's Visit Information Type of service Follow-up Visit Follow-up Visit Follow-up Visit (Physician/GANTRY CRANE OPERATOR (Physician/GANTRY CRANE OPERATOR (Physician/GANTRY CRANE OPERATOR ) ) ) Arrival Mode Ambulatory, Ambulatory Ambulatory, Walker Walker Transfer Assistance None None Accompanied by Patient Identification Verified (Name & Yes Yes Yes ) Patient Requires Transmission-Based No No Precautions Safety Precautions Fall Prevention Finger Stick Blood Sugar(mg/dl) (if 114 indicated): Blood Sugar Stated by Patient Height and Weight Body Mass Index (BMI) 38.7 38.7 38.7 BMI Classification Obese Obese Obese Vital Signs Temperature (97.8 F-99.1 F) 96.6 F L 96.9 F L 97.6 F L Temperature Source Temporal Temporal Temporal Pulse Rate (60-100) 116 H 81 Pulse Location Monitor Monitor Monitor Respiratory Rate (12-18) 20 H 16 Respiratory rate source Observation Observation Oxygen Delivery Method Room Air Room Air Blood Pressure (90/60-120/80) 116/71 136/69 H Blood Pressure Mean (mm Hg) 86 91 Source Monitor Monitor Monitor Position Sitting Semi-Fowlers Sitting Blood Pressure Location Left Arm Right Arm Right Arm History Since Last Visit- (Skip if this is Patient's initial visit) Have you changed medications since your No No No last visit? Any new allergies or adverse reactions No No No Had a fall/change in ADL's that may No No No increase risk of falls Signs or symptoms of abuse and/or No No No neglect since last visit Have you been in the hospital since your No No No last visit? Has dressing in place as prescribed Yes Yes Yes Has compression in place as prescribed Yes Yes Yes Has offloadiing in place as prescribed N/A N/A N/A Experienced any changes in pain level or No No No management Left Footwear Regular Shoe Regular Shoe Custom Shoe Right Footwear Regular Shoe Regular Shoe Custom Shoe Pain Scale: 0-10 Numeric Is Patient Pain Free? Yes Yes Yes WC - Nurse 1 - General Ulcer Measurement Start: 06/23/21 08:57 Freq: Status: Active Protocol: Activity Type Activity Date Activity User E-Sign Co-Sign Detail Recorded Client Recorded Date Recorded By Document 06/23/21 08:57 MW [id number] 06/23/21 09:05 MW Document 06/30/21 09:05 KR [id number] 06/30/21 09:10 KR Document 07/07/21 08:57 BM [id number] 07/07/21 09:01 BMF 06/23/21 06/30/21 07/07/21 08:57 09:05 08:57 Wound Center Nurse 1 #2 right wagner cluster -Combined with other wound No No -Current Size (cm) - Length 2.3 1.8 0.1 -Current Size (cm) - Width 1.5 0.5 0.1 -Current Size (cm) - Depth 0.1 0.1 0.1 -Total Square Cm 3.45 0.90 0.01 -Date of Last Picture (Recall this 06/23/21 field) -Photo Taken Yes -Epithelialization None Present Large 67-100% -Tunneling No -Undermining/Tunneling No -Circular Undermining No -Exudate Amt Small Small -Exudate Type Serosanguineous Serosanguineous -Wound Margin Flat & Intact Distinct, Outline Attached -Granulation Amt Medium (34-66%) -Granulation Quality [place] -Slough/Fibrin Yes -Necrosis Amt Medium (34-66%) Large (67-100%) -Necrotic Tissue Type Adherent Slough Adherent Slough -Structure Exposed N/A -Texture (Isabella-wound Skin Appearance) Assessed, Assessed, Assessed, Localized Edema Scarring Scarring ,Scarring -Moisture (Isabella-wound Skin Appearance) Assessed,Dry/ No Abnormality, Assessed Scaly Assessed -Color (Isabella-wound Skin Appearance) Assessed, No Abnormality, Assessed Hemosiderin Assessed Staining -Temperature (Isabella-wound Skin No Abnormality No Abnormality No Abnormality Appearance) (Pt Warm) (Pt Warm) (Pt Warm) -Tenderness on Palpation (Isabella-wound No No No Skin Appearance) -Ulcer Cleansing Rinsed/ Rinsed/ Rinsed/ Irrigated with Irrigated with Irrigated with Saline Saline Saline -Foul Odor after Cleansing No No No -Anesthetic Used 5% Lidocaine 4% Lidocaine 5% Lidocaine Gel Solution Gel #1 right posterior LE -Combined with other wound No No -Current Size (cm) - Length 4.2 3 0.1 -Current Size (cm) - Width 1.5 1.4 0.1 -Current Size (cm) - Depth 0.1 0.1 0.1 -Total Square Cm 6.30 4.2 0.01 -Date of Last Picture (Recall this 06/23/21 field) -Photo Taken Yes -Epithelialization None Present Large 67-100% -Tunneling No -Undermining/Tunneling No -Circular Undermining No -Exudate Amt Small Small -Exudate Type Serosanguineous Serosanguineous -Wound Margin Flat & Intact Distinct, Outline Attached -Granulation Amt Medium (34-66%) Small (1-33%) -Granulation Quality [place] Red -Slough/Fibrin Yes -Necrosis Amt Medium (34-66%) Large (67-100%) -Necrotic Tissue Type Adherent Slough Adherent Slough -Structure Exposed N/A -Texture (Isabella-wound Skin Appearance) Assessed, Assessed, Assessed, Localized Edema Scarring Scarring ,Scarring -Moisture (Isabella-wound Skin Appearance) Assessed,Dry/ No Abnormality, Assessed Scaly Assessed -Color (Isabella-wound Skin Appearance) Assessed, No Abnormality, Assessed Hemosiderin Assessed Staining -Temperature (Isabella-wound Skin No Abnormality No Abnormality No Abnormality Appearance) (Pt Warm) (Pt Warm) (Pt Warm) -Tenderness on Palpation (Isabella-wound No No Skin Appearance) -Ulcer Cleansing Rinsed/ Rinsed/ Rinsed/ Irrigated with Irrigated with Irrigated with Saline Saline Saline -Foul Odor after Cleansing No No No -Anesthetic Used 5% Lidocaine 4% Lidocaine 5% Lidocaine Gel Solution Gel Lower Limb Edema Present Yes Yes Right Calf (cm) 38.8 38.6 Right Ankle (cm) 25.5 26.5 WC - Nurse 2 - General Ulcer CM Notes Start: 06/23/21 08:57 Freq: Status: Active Protocol: Activity Type Activity Date Activity User E-Sign Co-Sign Detail Recorded Client Recorded Date Recorded By Document 06/23/21 09:14 [id number] 06/23/21 09:21 JF Document 06/30/21 09:17 JF [id number] 06/30/21 09:20 JF Document 07/07/21 09:06 MW [id number] 07/07/21 09:12 MW 06/23/21 06/30/21 07/07/21 09:14 09:17 09:06 Wound Center Nurse 2 #2 right wagner cluster -Time 09:19 09:18 09:07 -Correct Patient Yes Yes Yes -Correct Side, Site, Position Yes Yes Yes -Correct Procedure Yes Yes Yes -Procedure Performed Yes Yes No -Type of Procedure Debridement Debridement -Clinical Debridement Subcutaneous Subcutaneous -Tissue Removed Subcutaneous Subcutaneous -Post Debridement (cm) - Length 2.4 1.2 0 -Post Debridement (cm) - Width 1.5 0.5 0 -Post Debridement (cm) - Depth 0.1 0.1 0 -Total Square (Post) (cm) 3.60 0.60 0 -Area of Debridement (cm) - Length 2.4 1.2 -Area of Debridement (cm) - Width 1.5 0.5 -Total Square (Area) (cm) 3.60 0.60 -Tunneling No No -Undermining/Tunneling No No -Circular Undermining No No -Wound/Ulcer Outcome Not Healed Not Healed Healed- Epithelialized -Ulcer Cleansing Wound Cleanser Rinsed/ Irrigated with Saline -Foul Odor after Cleansing No No -Bioengineered Tissue No No -Bleeding Controlled with Pressure Pressure -Offloading No No -Treatment Response Procedure Procedure Tolerated Well Tolerated Well -Debridement - Subq, 1st 20sq cm No No #1 right posterior LE -Time 09:20 09:19 09:07 -Correct Patient Yes Yes Yes -Correct Side, Site, Position Yes Yes Yes -Correct Procedure Yes Yes Yes -Procedure Performed Yes Yes Yes -Type of Procedure Debridement Debridement Debridement -Clinical Debridement Subcutaneous Subcutaneous Subcutaneous -Tissue Removed Subcutaneous Subcutaneous Subcutaneous -Post Debridement (cm) - Length 4.2 2.2 2.3 -Post Debridement (cm) - Width 1.6 1.0 1.5 -Post Debridement (cm) - Depth 0.1 0.1 0.1 -Total Square (Post) (cm) 6.72 2.20 3.45 -Area of Debridement (cm) - Length 4.2 2.2 2.3 -Area of Debridement (cm) - Width 1.6 1.0 1.5 -Total Square (Area) (cm) 6.72 2.20 3.45 -Tunneling No No No -Undermining/Tunneling No No No -Circular Undermining No No No -Wound/Ulcer Outcome Not Healed Not Healed Not Healed -Ulcer Cleansing Rinsed/ Rinsed/ Rinsed/ Irrigated with Irrigated with Irrigated with Saline Saline Saline -Foul Odor after Cleansing No No No -Bioengineered Tissue No No No -Bleeding Controlled with Pressure Pressure Pressure -Offloading No No No -Treatment Response Procedure Procedure Procedure Tolerated Well Tolerated Well Tolerated Well -Debridement - Subq, 1st 20sq cm Yes Yes Yes Pain Scale: 0-10 Numeric Is Patient Pain Free? Yes Yes Yes WC - Nurse 3 - General Ulcer D/C NN Start: 06/23/21 08:57 Freq: Status: Active Protocol: Activity Type Activity Date Activity User E-Sign Co-Sign Detail Recorded Client Recorded Date Recorded By Document 06/23/21 09:31 [facility] [id number] 06/23/21 09:33 [facility] Document 06/30/21 09:27 KR [id number] 06/30/21 09:27 KR 06/23/21 06/30/21 09:31 09:27 Wound Care Nurse 3 #2 right wagner cluster -Ulcer Cleansing Rinsed/ Rinsed/ Irrigated with Irrigated with Saline Saline -Foul Odor after Cleansing No -Primary Dressing Applied NonAdherent NonAdherent Contact Layer Contact Layer, Promogran Lala Matter -Primary Dressing Covered/Secured with Dry Gauze & Dry Gauze,Dry Roll Gauze, Gauze & Roll Secured with Gauze,Secured Tape with Tape -Other Covering drsg per mw rn -Promogran Lala Matter 1 #1 right posterior LE -Ulcer Cleansing Rinsed/ Irrigated with Saline -Foul Odor after Cleansing No -Primary Dressing Applied NonAdherent Contact Layer, Promogran Lala Matter -Primary Dressing Covered/Secured with Dry Gauze & Roll Gauze, Secured with Tape -Other Covering drsg per mw rn -Promogran Lala Matter 1 Right -Tubular Bandage Double Layer -Size of Tubigrip Used Size E -Size E ($) 1 Treatment Response Procedure Tolerated Well Pain Scale: 0-10 Numeric Is Patient Pain Free? Yes Yes WC - Visit Discharge Discharge Condition Stable Stable Ambulatory Status Ambulatory, Ambulatory Walker Transportation Private Auto Private Auto Accompanied by Medication Reconcilliation completed & No provided to patient/care provider Clinical Summary of Care Provided No Assessment/Plan Assessment/Plan (1) Peripheral vascular disease, unspecified: CODE(S): I73.9 - Peripheral vascular disease, unspecified (2) 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 layer exposed: CODE(S): L97.212 - 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 layer exposed PLAN: Patient examined evaluate, findings discussed with patient in detail. Wound was excisionally debrided, this is documented in the debridement note. This was down to level of subcutaneous tissue of all nonviable tissue hemostasis obtained with light compression. Topical anesthesia was used. Patient tolerated procedure well. Pre and post debridement measurements document nursing notes. Discussed in detail the wounds etiologies at this time considered to be uncontrolled edema secondary to CKD and congestive heart failure. Patient awaiting AV fistula placement. Echocardiogram demonstrated 50% ejection fraction with a dilated right ventricle. Patient had moderate pulmonary hypertension as well. At this time we are using mild compression with double layer Tubigrip stockings. Patient would do better with increased compression via 2 or 4 layer compression wrap. However, patient's vascular studies demonstrate noncompressible vessels with slightly diminished TBI's. Patient's wounds are significantly improving at this time. Since his case will avoid increasing level compression and continue with Tubigrip. Patient is being seen by vascular surgery next 07/15/2021. Patient will continue compression elevation and exercise to assist patients edema. Today we dressed the wound with Lala dry sterile dressing and a double layer Tubigrip. He will perform this dressing on a daily basis. Patient will follow up in 1 to 2 weeks further management. We will consider advanced wound care products if we cannot get the wound to heal. (3) Diabetic neuropathy associated with type 2 diabetes mellitus: CODE(S): E11.40 - Type 2 diabetes mellitus with diabetic neuropathy, unspecified QUALIFIERS: Diabetes mellitus complication detail: diabetic polyneuropathy Qualified Code(s): E11.42 - Type 2 diabetes mellitus with diabetic polyneuropathy
[2021-07-14 09:17] VITALS: BP 147/69; PULSE 67; RESP 16; TEMP 35.7; BMI 38.7
--- NOTE | 2021-07-14 09:50 | PCM.WC.PN ---
History of Present Illness Date of Service: 07/14/21 Chief Complaint: Right leg venous ulceration History of Wound: This 81-year-old male presents to the wound care center with a right posterior leg wound present. Patient has been dressing the site daily with Lala dry sterile dressing and Tubigrip for compression. Patient is awaiting hemodialysis for end-stage renal disease and is getting a second opinion from a air brush operator. Patient is awaiting vascular consultation with Dr. Everett. Patient notes improved pain to his wound site and denies any constitutional symptoms. Patient has no other complaints at this time. Objective Data Objective Data Vital Signs: Vital Signs Temp Pulse Resp BP 96.2 F L 67 16 147/69 H 07/14/21 09:17 07/14/21 09:17 07/14/21 09:17 07/14/21 09:17 Oxygen Delivery Method Room Air Weight: 115.666 kg Body Mass Index (BMI) 38.7 Physical Exam Narrative Vascular: Dorsalis pedis pulses palpable 2 out of 4 to bilateral lower extremity, posterior tibial pulses dopplerable bilaterally. Hemosiderin deposits noted to bilateral lower extremity. +2 pitting edema noted bilaterally. Diminished digital hair growth noted. Skin does appear shiny and taut suggestive of possible microvascular disease. Neurologic: Light touch protective sensation is diminished to bilateral feet reestablish mid tibia. Dermatologic: Full-thickness ulceration x2 to posterior right leg, pre and post debridement measurements are documented in nursing notes. Full-thickness ulceration anterior right leg healed at this time. These wounds demonstrate a fibrogranular base with clean skin edges, no evidence of deep probing, purulence, periwound fluctuation or crepitus, erythema. Mild pain noted to wound site. Patient has a stable bullous to the anterior right leg, serous drainage noted upon draining. There is likely partial-thickness ulceration to the site however the bullous was not excised. Musculoskeletal: Muscular strength full to bilateral lower extremity, no gross deformities noted. No pain with calf squeeze to bilateral lower extremity Debridement Note Debridement Note Post-Debridement Measurements and Additional Note: Post-Debridement Measurements/Treatment WC - Nurse 1 - General Ulcer Assessment Start: 06/23/21 08:57 Freq: Status: Active Protocol: [facility]APO.LOWEXT Activity Type Activity Date Activity User E-Sign Co-Sign Detail Recorded Client Recorded Date Recorded By Document 06/23/21 08:57 MW [id number] 06/23/21 09:05 MW Document 06/30/21 09:05 KR [id number] 06/30/21 09:10 KR Document 07/07/21 08:57 BMF [id number] 07/07/21 09:01 BMF Document 07/14/21 09:17 KR [id number] 07/14/21 09:19 KR 06/23/21 06/30/21 07/07/21 08:57 09:05 08:57 WC - Today's Visit Information Type of service Follow-up Visit Follow-up Visit Follow-up Visit (Physician/ADVERTISING VICE PRESIDENT (Physician/ADVERTISING VICE PRESIDENT (Physician/ADVERTISING VICE PRESIDENT ) ) ) Arrival Mode Ambulatory, Ambulatory Ambulatory, Walker Walker Transfer Assistance None None Accompanied by Patient Identification Verified (Name & Yes Yes Yes ) Patient Requires Transmission-Based No No Precautions Safety Precautions Fall Prevention Finger Stick Blood Sugar(mg/dl) (if 114 indicated): Blood Sugar Stated by Patient Height and Weight Body Mass Index (BMI) 38.7 38.7 38.7 BMI Classification Obese Obese Obese Vital Signs Temperature (97.8 F-99.1 F) 96.6 F L 96.9 F L 97.6 F L Temperature Source Temporal Temporal Temporal Pulse Rate (60-100) 116 H 81 Pulse Location Monitor Monitor Monitor Respiratory Rate (12-18) 20 H 16 Respiratory rate source Observation Observation Oxygen Delivery Method Room Air Room Air Blood Pressure (90/60-120/80) 116/71 136/69 H Blood Pressure Mean (mm Hg) 86 91 Source Monitor Monitor Monitor Position Sitting Semi-Fowlers Sitting Blood Pressure Location Left Arm Right Arm Right Arm History Since Last Visit- (Skip if this is Patient's initial visit) Have you changed medications since your No No No last visit? Any new allergies or adverse reactions No No No Had a fall/change in ADL's that may No No No increase risk of falls Signs or symptoms of abuse and/or No No No neglect since last visit Have you been in the hospital since your No No No last visit? Has dressing in place as prescribed Yes Yes Yes Has compression in place as prescribed Yes Yes Yes Has offloadiing in place as prescribed N/A N/A N/A Experienced any changes in pain level or No No No management Left Footwear Regular Shoe Regular Shoe Custom Shoe Right Footwear Regular Shoe Regular Shoe Custom Shoe Pain Scale: 0-10 Numeric Is Patient Pain Free? Yes Yes Yes 07/14/21 09:17 - Today's Visit Information Type of service Follow-up Visit (Physician/ADVERTISING VICE PRESIDENT ) Arrival Mode Ambulatory, Walker Transfer Assistance None Accompanied by Patient Identification Verified (Name & Yes ) Patient Requires Transmission-Based No Precautions Safety Precautions Finger Stick Blood Sugar(mg/dl) (if indicated): Blood Sugar Height and Weight Body Mass Index (BMI) 38.7 BMI Classification Obese Vital Signs Temperature (97.8 F-99.1 F) 96.2 F L Temperature Source Temporal Pulse Rate (60-100) 67 Pulse Location Monitor Respiratory Rate (12-18) 16 Respiratory rate source Observation Oxygen Delivery Method Room Air Blood Pressure (90/60-120/80) 147/69 H Blood Pressure Mean (mm Hg) 95 Source Monitor Position Sitting Blood Pressure Location Right Arm History Since Last Visit- (Skip if this is Patient's initial visit) Have you changed medications since your No last visit? Any new allergies or adverse reactions No Had a fall/change in ADL's that may No increase risk of falls Signs or symptoms of abuse and/or No neglect since last visit Have you been in the hospital since your No last visit? Has dressing in place as prescribed Yes Has compression in place as prescribed Yes Has offloadiing in place as prescribed N/A Experienced any changes in pain level or No management Left Footwear Custom Shoe Right Footwear Custom Shoe Pain Scale: 0-10 Numeric Is Patient Pain Free? Yes - Nurse 1 - General Ulcer Measurement Start: 06/23/21 08:57 Freq: Status: Active Protocol: Activity Type Activity Date Activity User E-Sign Co-Sign Detail Recorded Client Recorded Date Recorded By Document 06/23/21 08:57 MW [id number] 06/23/21 09:05 MW Document 06/30/21 09:05 KR [id number] 06/30/21 09:10 KR Document 07/07/21 08:57 BMF [id number] 07/07/21 09:01 BMF Document 07/14/21 09:17 KR [id number] 07/14/21 09:19 KR 06/23/21 06/30/21 07/07/21 08:57 09:05 08:57 Wound Center Nurse 1 #2 right wagner cluster -Combined with other wound No No -Current Size (cm) - Length 2.3 1.8 0.1 -Current Size (cm) - Width 1.5 0.5 0.1 -Current Size (cm) - Depth 0.1 0.1 0.1 -Total Square Cm 3.45 0.90 0.01 -Date of Last Picture (Recall this 06/23/21 field) -Photo Taken Yes -Epithelialization None Present Large 67-100% -Tunneling No -Undermining/Tunneling No -Circular Undermining No -Exudate Amt Small Small -Exudate Type Serosanguineous Serosanguineous -Wound Margin Flat & Intact Distinct, Outline Attached -Granulation Amt Medium (34-66%) -Granulation Quality [place] -Slough/Fibrin Yes -Necrosis Amt Medium (34-66%) Large (67-100%) -Necrotic Tissue Type Adherent Slough Adherent Slough -Structure Exposed N/A -Texture (Isabella-wound Skin Appearance) Assessed, Assessed, Assessed, Localized Edema Scarring Scarring ,Scarring -Moisture (Isabella-wound Skin Appearance) Assessed,Dry/ No Abnormality, Assessed Scaly Assessed -Color (Isabella-wound Skin Appearance) Assessed, No Abnormality, Assessed Hemosiderin Assessed Staining -Temperature (Isabella-wound Skin No Abnormality No Abnormality No Abnormality Appearance) (Pt Warm) (Pt Warm) (Pt Warm) -Tenderness on Palpation (Isabella-wound No No No Skin Appearance) -Ulcer Cleansing Rinsed/ Rinsed/ Rinsed/ Irrigated with Irrigated with Irrigated with Saline Saline Saline -Foul Odor after Cleansing No No No -Anesthetic Used 5% Lidocaine 4% Lidocaine 5% Lidocaine Gel Solution Gel #1 right posterior LE -Combined with other wound No No -Current Size (cm) - Length 4.2 3 0.1 -Current Size (cm) - Width 1.5 1.4 0.1 -Current Size (cm) - Depth 0.1 0.1 0.1 -Total Square Cm 6.30 4.2 0.01 -Date of Last Picture (Recall this 06/23/21 field) -Photo Taken Yes -Epithelialization None Present Large 67-100% -Tunneling No -Undermining/Tunneling No -Circular Undermining No -Exudate Amt Small Small -Exudate Type Serosanguineous Serosanguineous -Wound Margin Flat & Intact Distinct, Outline Attached -Granulation Amt Medium (34-66%) Small (1-33%) -Granulation Quality [place] Red -Slough/Fibrin Yes -Necrosis Amt Medium (34-66%) Large (67-100%) -Necrotic Tissue Type Adherent Slough Adherent Slough -Structure Exposed N/A -Texture (Isabella-wound Skin Appearance) Assessed, Assessed, Assessed, Localized Edema Scarring Scarring ,Scarring -Moisture (Isabella-wound Skin Appearance) Assessed,Dry/ No Abnormality, Assessed Scaly Assessed -Color (Isabella-wound Skin Appearance) Assessed, No Abnormality, Assessed Hemosiderin Assessed Staining -Temperature (Isabella-wound Skin No Abnormality No Abnormality No Abnormality Appearance) (Pt Warm) (Pt Warm) (Pt Warm) -Tenderness on Palpation (Isabella-wound No No Skin Appearance) -Ulcer Cleansing Rinsed/ Rinsed/ Rinsed/ Irrigated with Irrigated with Irrigated with Saline Saline Saline -Foul Odor after Cleansing No No No -Anesthetic Used 5% Lidocaine 4% Lidocaine 5% Lidocaine Gel Solution Gel Lower Limb Edema Present Yes Yes Right Calf (cm) 38.8 38.6 Right Ankle (cm) 25.5 26.5 07/14/21 09:17 Wound Center Nurse 1 #2 right wagner cluster -Combined with other wound -Current Size (cm) - Length -Current Size (cm) - Width -Current Size (cm) - Depth -Total Square Cm -Date of Last Picture (Recall this field) -Photo Taken -Epithelialization -Tunneling -Undermining/Tunneling -Circular Undermining -Exudate Amt -Exudate Type -Wound Margin -Granulation Amt -Granulation Quality -Slough/Fibrin -Necrosis Amt -Necrotic Tissue Type -Structure Exposed -Texture (Isabella-wound Skin Appearance) -Moisture (Isabella-wound Skin Appearance) -Color (Isabella-wound Skin Appearance) -Temperature (Isabella-wound Skin Appearance) -Tenderness on Palpation (Isabella-wound Skin Appearance) -Ulcer Cleansing -Foul Odor after Cleansing -Anesthetic Used #1 right posterior LE -Combined with other wound No -Current Size (cm) - Length 1.6 -Current Size (cm) - Width 4 -Current Size (cm) - Depth 0.1 -Total Square Cm 6.4 -Date of Last Picture (Recall this field) -Photo Taken No -Epithelialization Small 1-33% -Tunneling No -Undermining/Tunneling No -Circular Undermining No -Exudate Amt Small -Exudate Type Serosanguineous -Wound Margin Distinct, Outline Attached -Granulation Amt Small (1-33%) -Granulation Quality Red -Slough/Fibrin Yes -Necrosis Amt Large (67-100%) -Necrotic Tissue Type Adherent Slough -Structure Exposed -Texture (Isabella-wound Skin Appearance) Assessed, Scarring -Moisture (Isabella-wound Skin Appearance) Assessed,Dry/ Scaly -Color (Isabella-wound Skin Appearance) Assessed -Temperature (Isabella-wound Skin No Abnormality Appearance) (Pt Warm) -Tenderness on Palpation (Isabella-wound No Skin Appearance) -Ulcer Cleansing Rinsed/ Irrigated with Saline -Foul Odor after Cleansing No -Anesthetic Used 5% Lidocaine Gel Lower Limb Edema Present Yes Right Calf (cm) 39.5 Right Ankle (cm) 27.4 WC - Nurse 2 - General Ulcer CM Notes Start: 06/23/21 08:57 Freq: Status: Active Protocol: Activity Type Activity Date Activity User E-Sign Co-Sign Detail Recorded Client Recorded Date Recorded By Document 06/23/21 09:14 [id number] 06/23/21 09:21 Document 06/30/21 09:17 [id number] 06/30/21 09:20 Document 07/07/21 09:06 [id number] 07/07/21 09:12 Document 07/14/21 09:31 [id number] 07/14/21 09:33 06/23/21 06/30/21 07/07/21 09:14 09:17 09:06 Wound Center Nurse 2 #2 right wagner cluster -Time 09:19 09:18 09:07 -Correct Patient Yes Yes Yes -Correct Side, Site, Position Yes Yes Yes -Correct Procedure Yes Yes Yes -Procedure Performed Yes Yes No -Type of Procedure Debridement Debridement -Clinical Debridement Subcutaneous Subcutaneous -Tissue Removed Subcutaneous Subcutaneous -Post Debridement (cm) - Length 2.4 1.2 0 -Post Debridement (cm) - Width 1.5 0.5 0 -Post Debridement (cm) - Depth 0.1 0.1 0 -Total Square (Post) (cm) 3.60 0.60 0 -Area of Debridement (cm) - Length 2.4 1.2 -Area of Debridement (cm) - Width 1.5 0.5 -Total Square (Area) (cm) 3.60 0.60 -Tunneling No No -Undermining/Tunneling No No -Circular Undermining No No -Wound/Ulcer Outcome Not Healed Not Healed Healed- Epithelialized -Ulcer Cleansing Wound Cleanser Rinsed/ Irrigated with Saline -Foul Odor after Cleansing No No -Bioengineered Tissue No No -Bleeding Controlled with Pressure Pressure -Treatment Response Procedure Procedure Tolerated Well Tolerated Well -Offloading No No -Debridement - Subq, 1st 20sq cm No No #1 right posterior LE -Time 09:20 09:19 09:07 -Correct Patient Yes Yes Yes -Correct Side, Site, Position Yes Yes Yes -Correct Procedure Yes Yes Yes -Procedure Performed Yes Yes Yes -Type of Procedure Debridement Debridement Debridement -Clinical Debridement Subcutaneous Subcutaneous Subcutaneous -Tissue Removed Subcutaneous Subcutaneous Subcutaneous -Post Debridement (cm) - Length 4.2 2.2 2.3 -Post Debridement (cm) - Width 1.6 1.0 1.5 -Post Debridement (cm) - Depth 0.1 0.1 0.1 -Total Square (Post) (cm) 6.72 2.20 3.45 -Area of Debridement (cm) - Length 4.2 2.2 2.3 -Area of Debridement (cm) - Width 1.6 1.0 1.5 -Total Square (Area) (cm) 6.72 2.20 3.45 -Tunneling No No No -Undermining/Tunneling No No No -Circular Undermining No No No -Wound/Ulcer Outcome Not Healed Not Healed Not Healed -Ulcer Cleansing Rinsed/ Rinsed/ Rinsed/ Irrigated with Irrigated with Irrigated with Saline Saline Saline -Foul Odor after Cleansing No No No -Bioengineered Tissue No No No -Bleeding Controlled with Pressure Pressure Pressure -Treatment Response Procedure Procedure Procedure Tolerated Well Tolerated Well Tolerated Well -Offloading No No No -Debridement - Subq, 1st 20sq cm Yes Yes Yes Pain Scale: 0-10 Numeric Is Patient Pain Free? Yes Yes Yes 07/14/21 09:31 Wound Center Nurse 2 #2 right wagner cluster -Time -Correct Patient -Correct Side, Site, Position -Correct Procedure -Procedure Performed -Type of Procedure -Clinical Debridement -Tissue Removed -Post Debridement (cm) - Length -Post Debridement (cm) - Width -Post Debridement (cm) - Depth -Total Square (Post) (cm) -Area of Debridement (cm) - Length -Area of Debridement (cm) - Width -Total Square (Area) (cm) -Tunneling -Undermining/Tunneling -Circular Undermining -Wound/Ulcer Outcome -Ulcer Cleansing -Foul Odor after Cleansing -Bioengineered Tissue -Bleeding Controlled with -Treatment Response -Offloading -Debridement - Subq, 1st 20sq cm #1 right posterior LE -Time 09:33 -Correct Patient Yes -Correct Side, Site, Position Yes -Correct Procedure Yes -Procedure Performed Yes -Type of Procedure Debridement -Clinical Debridement Subcutaneous -Tissue Removed Subcutaneous -Post Debridement (cm) - Length 2.2 -Post Debridement (cm) - Width 0.2 -Post Debridement (cm) - Depth 0.1 -Total Square (Post) (cm) 0.44 -Area of Debridement (cm) - Length 2.2 -Area of Debridement (cm) - Width 0.2 -Total Square (Area) (cm) 0.44 -Tunneling No -Undermining/Tunneling No -Circular Undermining No -Wound/Ulcer Outcome Not Healed -Ulcer Cleansing Rinsed/ Irrigated with Saline -Foul Odor after Cleansing No -Bioengineered Tissue No -Bleeding Controlled with Pressure -Treatment Response Procedure Tolerated Well -Offloading No -Debridement - Subq, 20sq cm Yes Pain Scale: 0-10 Numeric Is Patient Pain Free? Yes WC - Nurse 3 - General Ulcer D/C NN Start: 06/23/21 08:57 Freq: Status: Active Protocol: Activity Type Activity Date Activity User E-Sign Co-Sign Detail Recorded Client Recorded Date Recorded By Document 06/23/21 09:31 [facility] [id number] 06/23/21 09:33 BMF Document 06/30/21 09:27 KR [id number] 06/30/21 09:27 KR Document 07/07/21 09:18 KR [id number] 07/07/21 09:19 KR Document 07/14/21 09:45 KR [id number] 07/14/21 09:45 KR 06/23/21 06/30/21 07/07/21 09:31 09:27 09:18 Wound Care Nurse 3 #2 right wagner cluster -Ulcer Cleansing Rinsed/ Rinsed/ Irrigated with Irrigated with Saline Saline -Foul Odor after Cleansing No -Primary Dressing Applied NonAdherent NonAdherent Contact Layer Contact Layer, Promogran Lala Matter -Primary Dressing Covered/Secured with Dry Gauze & Dry Gauze,Dry Roll Gauze, Gauze & Roll Secured with Gauze,Secured Tape with Tape -Other Covering drsg per mw rn -Promogran Lala Matter 1 #1 right posterior LE -Ulcer Cleansing Rinsed/ Rinsed/ Irrigated with Irrigated with Saline Saline -Foul Odor after Cleansing No -Primary Dressing Applied NonAdherent NonAdherent Contact Layer, Contact Layer, Promogran Promogran Lala Matter Lala Matter -Primary Dressing Covered/Secured with Dry Gauze & Dry Gauze, Roll Gauze, Secured with Secured with Tape Tape -Other Covering drsg per mw rn -Promogran Lala Matter 1 1 Right -Tubular Bandage Double Layer -Size of Tubigrip Used Size E -Size E ($) 1 Treatment Response Procedure Tolerated Well Pain Scale: 0-10 Numeric Is Patient Pain Free? Yes Yes Yes WC - Visit Discharge Discharge Condition Stable Stable Stable Ambulatory Status Ambulatory, Ambulatory Walker Walker Transportation Private Auto Private Auto Private Auto Accompanied by Medication Reconcilliation completed & No provided to patient/care provider Clinical Summary of Care Provided No 07/14/21 09:45 Wound Care Nurse 3 #2 right wagner cluster -Ulcer Cleansing -Foul Odor after Cleansing -Primary Dressing Applied -Primary Dressing Covered/Secured with -Other Covering -Promogran Lala Matter #1 right posterior LE -Ulcer Cleansing Rinsed/ Irrigated with Saline -Foul Odor after Cleansing -Primary Dressing Applied Promogran Lala Matter -Primary Dressing Covered/Secured with Dry Gauze,Dry Gauze & Roll Gauze,Secured with Tape -Other Covering -Promogran Lala Matter 1 Right -Tubular Bandage -Size of Tubigrip Used -Size E ($) Treatment Response Pain Scale: 0-10 Numeric Is Patient Pain Free? Yes WC - Visit Discharge Discharge Condition Stable Ambulatory Status Ambulatory, Walker Transportation Private Auto Accompanied by self Medication Reconcilliation completed & provided to patient/care provider Clinical Summary of Care Provided Assessment/Plan Assessment/Plan (1) Peripheral vascular disease, unspecified: CODE(S): I73.9 - Peripheral vascular disease, unspecified (2) 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 layer exposed: CODE(S): L97.212 - 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 layer exposed PLAN: Patient examined evaluate, findings discussed with patient in detail. Wound was excisionally debrided, this is documented in the debridement note. This was down to level of subcutaneous tissue of all nonviable tissue hemostasis obtained with light compression. Topical anesthesia was used. Patient tolerated procedure well. Pre and post debridement measurements document nursing notes. Wound significantly improving at this time with edema management. Once the wounds are completely healed we will likely proceed with compression stockings. Patient's ejection fraction is 50% at this time. Patient may be awaiting hemodialysis with end-stage renal disease pending evaluation by new air brush operator. Wounds at this time dressed with Lala dry sterile dressing and double Tubigrip Patient is being seen by vascular surgery 07/15/2021. Patient will continue compression elevation and exercise to assist patients edema. Today we dressed the wound with Lala dry sterile dressing and a double layer Tubigrip. He will perform this dressing on a daily basis. Patient will follow up in 1 to 2 weeks further management. We will consider advanced wound care products if we cannot get the wound to heal. (3) Diabetic neuropathy associated with type 2 diabetes mellitus: CODE(S): E11.40 - Type 2 diabetes mellitus with diabetic neuropathy, unspecified QUALIFIERS: Diabetes mellitus complication detail: diabetic polyneuropathy Qualified Code(s): E11.42 - Type 2 diabetes mellitus with diabetic polyneuropathy
== END 2021-07-23 23:59 | disposition home or self-care (01) ==
LOC: WC 09:15
PROVIDERS: PCP Family Medicine; Visit Provider Podiatrist
DX: E11.622 Type 2 diabetes mellitus with other skin ulcer (principal); E11.51 Type 2 diabetes mellitus with diabetic peripheral angiopathy without gangrene; L97.212 Non-pressure chronic ulcer of right calf with fat layer exposed; E11.22 Type 2 diabetes mellitus with diabetic chronic kidney disease; E11.40 Type 2 diabetes mellitus with diabetic neuropathy, unspecified; R18.8 Other ascites; Z87.891 Personal history of nicotine dependence; N18.9 Chronic kidney disease, unspecified
CPT/HCPCS: 11042

== ENCOUNTER 2021-07-15 11:08 | Outpatient (RCR) | payer MEDICARE, OTHER, SELFPAY ==
[2020-11-21 14:37] VITALS: BMI 39.9
[2021-06-23 10:30] VITALS: BMI 40.1
[2021-07-01 14:59] LABS: Hematocrit 29.7 % (40-54); Hemoglobin 9.4 g/dL (13.0-16.5); Mean Corp Hgb Conc 31.6 g/dL (32-36); Mean Corpuscular Hgb 27.5 pg (27.0-32.0); Mean Corpuscular Volume 86.8 fL (80-94); Platelet Count 137 K/mm3 (150-450); RBC Distribution Width CV 16.5 % (11.6-14.6); RBC Distribution Width SD 51.5 fl (35.1-43.9); Red Blood Count 3.42 M/mm3 (4.6-6.2); White Blood Count 3.7 K/mm3 (4.4-11.0)
[2021-07-01 15:24] LABS: Protein, Urine (Random) 38.4 mg/dL (<11.9); Protein:Creat Ratio 1939 mg/g CRE (0-200)
[2021-07-01 15:29] LABS: International Normalized Ratio 1.9; Prothrombin Time (Protime)PT. 21.1 SECONDS (11.7-14.9)
[2021-07-01 15:36] LABS: Albumin, Serum 3.5 g/dL (3.2-5.0); BUN 93 mg/dL (7-18); BUN/Creat Ratio 22.3 RATIO (10-20); Calcium,Total 9.3 mg/dL (8.5-10.1); Chloride 105 mmol/L (98-107); Creatinine, Serum 4.17 mg/dL (0.70-1.30); EST Glomerular Filtration Rate 15 mL/min (>60); Est Glom Filt Rate - Afr Amer 18 mL/min (>60); Glucose 101 mg/dL (74-106); Phosphorus 6.1 mg/dL (2.5-4.9); Potassium 4.2 mmol/L (3.5-5.1); Sodium Level 136 mmol/L (136-145)
[2021-07-01 15:42] LABS: Vitamin D,25 Hydroxy 51.4 ng/mL
[2021-07-15 11:47] LABS: International Normalized Ratio 2.2; Prothrombin Time (Protime)PT. 23.4 SECONDS (11.7-14.9)
== END 2021-07-23 18:00 | disposition home or self-care (01) ==
LOC: LAB 11:08
PROVIDERS: Family Provider Family Medicine; PCP Family Medicine; Referring Provider Internal Medicine Cardiovascular Disease; Visit Provider Internal Medicine Cardiovascular Disease
DX: I25.5 Ischemic cardiomyopathy (principal); I48.11 Longstanding persistent atrial fibrillation; Z79.01 Long term (current) use of anticoagulants
CPT/HCPCS: 36415; 80069; 82306; 82570; 83970; 84156; 85027; 85610; 93306

== ENCOUNTER 2021-07-29 15:50 | Outpatient (CLI) | payer MEDICARE, OTHER, SELFPAY ==
[2020-11-21 14:37] VITALS: BMI 39.9
[2021-07-29 17:22] LABS: Albumin, Serum 3.5 g/dL (3.2-5.0); BUN 90 mg/dL (7-18); BUN/Creat Ratio 23.6 RATIO (10-20); Calcium,Total 9.4 mg/dL (8.5-10.1); Chloride 108 mmol/L (98-107); Creatinine, Serum 3.82 mg/dL (0.70-1.30); EST Glomerular Filtration Rate 16 mL/min (>60); Est Glom Filt Rate - Afr Amer 20 mL/min (>60); Glucose 216 mg/dL (74-106); Phosphorus 5.5 mg/dL (2.5-4.9); Potassium 4.2 mmol/L (3.5-5.1); Sodium Level 136 mmol/L (136-145)
== END 2021-07-29 23:59 | disposition home or self-care (01) ==
LOC: POLAB3 15:51
PROVIDERS: PCP Family Medicine; Visit Provider Internal Medicine Nephrology
DX: N18.5 Chronic kidney disease, stage 5 (principal)
CPT/HCPCS: 36415; 80069

== ENCOUNTER 2021-08-21 13:15 | Outpatient (RCR) | payer MEDICARE, OTHER, SELFPAY ==
[2020-11-21 14:37] VITALS: BMI 39.9
[2021-07-24 00:39] VITALS: BP 147/69; PULSE 67; RESP 16; TEMP 35.7; BMI 38.7
[2021-07-28 09:15] VITALS: BP 110/61; PULSE 69; TEMP 36.3; BMI 38.7
--- NOTE | 2021-07-28 09:32 | PN.PCM_ITS ---
History of Present Illness Date of Service: 07/28/21 Chief Complaint: Right leg venous ulceration History of Wound: This 81-year-old male presents to the wound care center with a right posterior leg wound present. Patient has been dressing the site daily with Lala dry sterile dressing and Tubigrip for compression. Patient is awaiting hemodialysis for end-stage renal disease and is getting a second opinion from a erp implementation consultant. Patient is awaiting vascular consultation with Dr. Everett. Patient notes improved pain to his wound site and denies any constitutional symptoms. Patient has no other complaints at this time. Objective Data Objective Data Vital Signs: Vital Signs Temp Pulse Resp BP 97.3 F L 69 16 110/61 07/28/21 09:15 07/28/21 09:15 07/24/21 00:39 07/28/21 09:15 Weight: 115.666 kg Body Mass Index (BMI) 38.7 Physical Exam Narrative Patient alert oriented person place and time. Vascular: Dorsalis pedis pulses palpable 2 out of 4 to bilateral lower extremity, posterior tibial pulses dopplerable bilaterally. Hemosiderin deposits noted to bilateral lower extremity. +2 pitting edema noted bilaterally. Diminished digital hair growth noted. Skin does appear shiny and taut suggestive of possible microvascular disease. Neurologic: Light touch protective sensation is diminished to bilateral feet reestablish mid tibia. Dermatologic: All wounds healed except for one partial-thickness ulceration to the right lateral leg no signs of infection healthy granular base. Pre and post debridement measurements document nursing notes. Mild pain noted to wound site. Patient has a stable bullous to the anterior right leg, serous drainage noted upon draining. There is likely partial-thickness ulceration to the site however the bullous was not excised. Musculoskeletal: Muscular strength full to bilateral lower extremity, no gross deformities noted. No pain with calf squeeze to bilateral lower extremity Debridement Note Debridement Note Post-Debridement Measurements and Additional Note: Post-Debridement Measurements/Treatment - Nurse 1 - General Ulcer Assessment Start: 07/28/21 09:14 Freq: Status: Active Protocol: CHAPO.LOWEXT Activity Type Activity Date Activity User E-Sign Co-Sign Detail Recorded Client Recorded Date Recorded By Document 07/28/21 09:15 NETTE [id number] 07/28/21 09:17 NETTE 07/28/21 09:15 - Today's Visit Information Type of service Follow-up Visit (Physician/NURSE PRACTITIONER PER DIEM ) Arrival Mode Ambulatory,Cane Patient Identification Verified (Name & Yes ) Finger Stick Blood Sugar(mg/dl) (if 105 indicated): Blood Sugar Stated by Patient Height and Weight Body Mass Index (BMI) 38.7 BMI Classification Obese Vital Signs Temperature (97.8 F-99.1 F) 97.3 F L Temperature Source Temporal Pulse Rate (60-100) 69 Pulse Location Monitor Blood Pressure (90/60-120/80) 110/61 Blood Pressure Mean (mm Hg) 77 Source Monitor Position Sitting Blood Pressure Location Left Arm History Since Last Visit- (Skip if this is Patient's initial visit) Have you changed medications since your No last visit? Any new allergies or adverse reactions No Had a fall/change in ADL's that may No increase risk of falls Signs or symptoms of abuse and/or No neglect since last visit Have you been in the hospital since your No last visit? Has dressing in place as prescribed Yes Has compression in place as prescribed Yes Has offloadiing in place as prescribed N/A Experienced any changes in pain level or No management Left Footwear Regular Shoe Right Footwear Regular Shoe Pain Scale: 0-10 Numeric Is Patient Pain Free? Yes WC - Nurse 1 - General Ulcer Measurement Start: 07/28/21 09:14 Freq: Status: Active Protocol: Activity Type Activity Date Activity User E-Sign Co-Sign Detail Recorded Client Recorded Date Recorded By Document 07/28/21 09:15 NETTE [id number] 07/28/21 09:17 NETTE 07/28/21 09:15 Wound Center Nurse 1 #1 right posterior LE -Current Size (cm) - Length 0.1 -Current Size (cm) - Width 0.1 -Current Size (cm) - Depth 0.1 -Total Square Cm 0.01 -Exudate Amt None Present -Wound Margin Distinct, Outline Attached -Granulation Amt None Present (0 %) -Slough/Fibrin No -Necrosis Amt None Present (0 %) -Texture (Isabella-wound Skin Appearance) Assessed, Scarring -Moisture (Isabella-wound Skin Appearance) Assessed,Dry/ Scaly -Color (Isabella-wound Skin Appearance) No Abnormality, Assessed -Temperature (Isabella-wound Skin No Abnormality Appearance) (Pt Warm) -Tenderness on Palpation (Isabella-wound No Skin Appearance) -Ulcer Cleansing Rinsed/ Irrigated with Saline -Foul Odor after Cleansing No -Anesthetic Used 5% Lidocaine Gel Right Calf (cm) 39.2 Right Ankle (cm) 24.0 WC - Nurse 2 - General Ulcer CM Notes Start: 07/28/21 09:14 Freq: Status: Active Protocol: Activity Type Activity Date Activity User E-Sign Co-Sign Detail Recorded Client Recorded Date Recorded By Document 07/28/21 09:23 [id number] 07/28/21 09:27 07/28/21 09:23 Wound Center Nurse 2 #2 right wagner cluster -Correct Patient No -Correct Side, Site, Position No -Correct Procedure No -Procedure Performed No -Post Debridement (cm) - Length 0 -Post Debridement (cm) - Width 0 -Post Debridement (cm) - Depth 0 -Total Square (Post) (cm) 0 -Area of Debridement (cm) - Length 0 -Area of Debridement (cm) - Width 0 -Total Square (Area) (cm) 0 -Wound/Ulcer Outcome Healed- Epithelialized #1 right posterior LE -Time 09:27 -Correct Patient Yes -Correct Side, Site, Position Yes -Correct Procedure Yes -Procedure Performed Yes -Type of Procedure Debridement -Clinical Debridement Epidermis / Dermis -Tissue Removed Epidermis, Dermis -Post Debridement (cm) - Length 0.2 -Post Debridement (cm) - Width 0.1 -Post Debridement (cm) - Depth 0.1 -Total Square (Post) (cm) 0.02 -Area of Debridement (cm) - Length 0.2 -Area of Debridement (cm) - Width 0.1 -Total Square (Area) (cm) 0.02 -Tunneling No -Undermining/Tunneling No -Circular Undermining No -Wound/Ulcer Outcome Not Healed -Ulcer Cleansing Rinsed/ Irrigated with Saline -Foul Odor after Cleansing No -Bioengineered Tissue No -Bleeding Controlled with Pressure -Treatment Response Procedure Tolerated Well -Offloading No -Debridement - Open, 1st 20sq cm Yes Pain Scale: 0-10 Numeric Is Patient Pain Free? Yes Assessment/Plan Assessment/Plan (1) Peripheral vascular disease, unspecified: CODE(S): I73.9 - Peripheral vascular disease, unspecified (2) 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 layer exposed: CODE(S): L97.212 - 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 layer exposed PLAN: Patient examined evaluate, findings discussed with patient in detail. Wound was excisionally debrided, this is documented in the debridement note. This was down to level of superficial tissue of all nonviable tissue hemostasis obtained with light compression. Topical anesthesia was used. Patient tolerated procedure well. Pre and post debridement measurements document nursing notes. Wound significantly improving at this time with edema management. Once the wounds are completely healed we will likely proceed with compression stockings. Patient's ejection fraction is 50% at this time. Patient may be awaiting hemodialysis with end-stage renal disease pending evaluation by new erp implementation consultant. Wounds at this time dressed with Lala dry sterile dressing and double Tubigrip Patient was evaluated by vascular surgery, they recommend sclerosing therapy to veins right lower extremity. They dispensed a prescription for custom compression stockings the patient. Patient will continue compression elevation and exercise to assist patients edema. Today we dressed the wound with Lala dry sterile dressing and a double layer Tubigrip. He will perform this dressing on a daily basis. Patient's wound significantly he improved at this time patient will follow up in 3 weeks at which time I believe his wounds will likely be healed and he will be discharged from the wound care center.
[2021-08-18 09:17] VITALS: BP 144/70; PULSE 63; RESP 20; TEMP 35.5; BMI 38.7
--- NOTE | 2021-08-18 09:47 | PN.PCM_ITS ---
History of Present Illness Date of Service: 08/18/21 Chief Complaint: Right leg venous ulceration History of Wound: This 81-year-old male presents to the wound care center with a right posterior leg wound present. Patient has been dressing the site daily with Lala dry sterile dressing and Tubigrip for compression. Patient is awaiting hemodialysis for end-stage renal disease and is getting a second opinion from a flight operation coordinator. Patient is awaiting vascular consultation with Dr. Everett. Patient notes improved pain to his wound site and denies any constitutional symptoms. Patient has no other complaints at this time. Objective Data Objective Data Vital Signs: Vital Signs Temp Pulse Resp BP 95.9 F L 63 20 H 144/70 H 08/18/21 09:17 08/18/21 09:17 08/18/21 09:17 08/18/21 09:17 Oxygen Delivery Method Room Air Weight: 115.666 kg Body Mass Index (BMI) 38.7 Physical Exam Narrative Patient alert oriented person place and time. Vascular: Dorsalis pedis pulses palpable 2 out of 4 to bilateral lower extremity, posterior tibial pulses dopplerable bilaterally. Hemosiderin deposits noted to bilateral lower extremity. +2 pitting edema noted bilaterally. Diminished digital hair growth noted. Skin does appear shiny and taut suggestive of possible microvascular disease. Neurologic: Light touch protective sensation is diminished to bilateral feet reestablish mid tibia. Dermatologic: All wounds healed at this time, no residual signs of infection. Edema well controlled. Musculoskeletal: Muscular strength full to bilateral lower extremity, no gross deformities noted. No pain with calf squeeze to bilateral lower extremity Debridement Note Debridement Note Post-Debridement Measurements and Additional Note: Post-Debridement Measurements/Treatment - Nurse 1 - General Ulcer Assessment Start: 07/28/21 09:14 Freq: Status: Active Protocol: CHAPO.LOWEXT Activity Type Activity Date Activity User E-Sign Co-Sign Detail Recorded Client Recorded Date Recorded By Document 07/28/21 09:15 KR [id number] 07/28/21 09:17 KR Document 08/18/21 09:17 MW [id number] 08/18/21 09:26 MW 07/28/21 08/18/21 09:15 09:17 - Today's Visit Information Type of service Follow-up Visit Follow-up Visit (Physician/BRASS SORTER (Physician/BRASS SORTER ) ) Arrival Mode Ambulatory,Cane Ambulatory,Cane Transfer Assistance None Accompanied by self Patient Identification Verified (Name & Yes Yes ) Patient Requires Transmission-Based No Precautions Safety Precautions NA Finger Stick Blood Sugar(mg/dl) (if 105 102 indicated): Blood Sugar Stated by Stated by Patient Patient Height and Weight Body Mass Index (BMI) 38.7 38.7 BMI Classification Obese Obese Vital Signs Temperature (97.8 F-99.1 F) 97.3 F L 95.9 F L Temperature Source Temporal Temporal Pulse Rate (60-100) 69 63 Pulse Location Monitor Monitor Respiratory Rate (12-18) 20 H Respiratory rate source Observation Oxygen Delivery Method Room Air Blood Pressure (90/60-120/80) 110/61 144/70 H Blood Pressure Mean (mm Hg) 77 94 Source Monitor Monitor Position Sitting Sitting Blood Pressure Location Left Arm Left Arm History Since Last Visit- (Skip if this is Patient's initial visit) Have you changed medications since your No No last visit? Any new allergies or adverse reactions No No Had a fall/change in ADL's that may No No increase risk of falls Signs or symptoms of abuse and/or No No neglect since last visit Have you been in the hospital since your No No last visit? Has dressing in place as prescribed Yes Yes Has compression in place as prescribed Yes Yes Has offloadiing in place as prescribed N/A N/A Experienced any changes in pain level or No No management Left Footwear Regular Shoe Regular Shoe Right Footwear Regular Shoe Regular Shoe Pain Scale: 0-10 Numeric Is Patient Pain Free? Yes Yes WC - Nurse 1 - General Ulcer Measurement Start: 07/28/21 09:14 Freq: Status: Active Protocol: Activity Type Activity Date Activity User E-Sign Co-Sign Detail Recorded Client Recorded Date Recorded By Document 07/28/21 09:15 KR [id number] 07/28/21 09:17 KR Document 08/18/21 09:17 MW [id number] 08/18/21 09:26 MW 07/28/21 08/18/21 09:15 09:17 Wound Center Nurse 1 #1 right posterior LE -Combined with other wound No -Current Size (cm) - Length 0.1 0.1 -Current Size (cm) - Width 0.1 0.1 -Current Size (cm) - Depth 0.1 0.1 -Total Square Cm 0.01 0.01 -Date of Last Picture (Recall this 08/18/21 field) -Photo Taken Yes -Epithelialization Large 67-100% -Tunneling No -Circular Undermining No -Exudate Amt None Present None Present -Wound Margin Distinct, Flat & Intact Outline Attached -Granulation Amt None Present (0 None Present (0 %) %) -Granulation Quality N/A -Slough/Fibrin No No -Necrosis Amt None Present (0 None Present (0 %) %) -Texture (Isabella-wound Skin Appearance) Assessed, Assessed, Scarring Localized Edema -Moisture (Isabella-wound Skin Appearance) Assessed,Dry/ Assessed,Dry/ Scaly Scaly -Color (Isabella-wound Skin Appearance) No Abnormality, No Abnormality, Assessed Assessed -Temperature (Isabella-wound Skin No Abnormality No Abnormality Appearance) (Pt Warm) (Pt Warm) -Tenderness on Palpation (Isabella-wound No No Skin Appearance) -Ulcer Cleansing Rinsed/ Rinsed/ Irrigated with Irrigated with Saline Saline -Foul Odor after Cleansing No No -Anesthetic Used 5% Lidocaine Gel Lower Limb Edema Present Yes Right Calf (cm) 39.2 38.4 Right Ankle (cm) 24.0 24.4 WC - Nurse 2 - General Ulcer CM Notes Start: 07/28/21 09:14 Freq: Status: Active Protocol: Activity Type Activity Date Activity User E-Sign Co-Sign Detail Recorded Client Recorded Date Recorded By Document 07/28/21 09:23 [id number] 07/28/21 09:27 Document 08/18/21 09:43 [id number] 08/18/21 09:46 07/28/21 08/18/21 09:23 09:43 Wound Center Nurse 2 #2 right wagner cluster -Correct Patient No -Correct Side, Site, Position No -Correct Procedure No -Procedure Performed No -Post Debridement (cm) - Length 0 -Post Debridement (cm) - Width 0 -Post Debridement (cm) - Depth 0 -Total Square (Post) (cm) 0 -Area of Debridement (cm) - Length 0 -Area of Debridement (cm) - Width 0 -Total Square (Area) (cm) 0 -Wound/Ulcer Outcome Healed- Epithelialized #1 right posterior LE -Time 09:27 -Correct Patient Yes No -Correct Side, Site, Position Yes No -Correct Procedure Yes No -Procedure Performed Yes No -Type of Procedure Debridement -Clinical Debridement Epidermis / Dermis -Tissue Removed Epidermis, Dermis -Post Debridement (cm) - Length 0.2 0 -Post Debridement (cm) - Width 0.1 0 -Post Debridement (cm) - Depth 0.1 0 -Total Square (Post) (cm) 0.02 0 -Area of Debridement (cm) - Length 0.2 0 -Area of Debridement (cm) - Width 0.1 0 -Total Square (Area) (cm) 0.02 0 -Tunneling No -Undermining/Tunneling No -Circular Undermining No -Wound/Ulcer Outcome Not Healed Healed- Epithelialized -Ulcer Cleansing Rinsed/ Irrigated with Saline -Foul Odor after Cleansing No -Bioengineered Tissue No -Bleeding Controlled with Pressure -Treatment Response Procedure Tolerated Well -Offloading No -Debridement - Open, 1st 20sq cm Yes Pain Scale: 0-10 Numeric Is Patient Pain Free? Yes Yes - Nurse 3 - General Ulcer D/C NN Start: 07/28/21 09:14 Freq: Status: Active Protocol: Activity Type Activity Date Activity User E-Sign Co-Sign Detail Recorded Client Recorded Date Recorded By Document 07/28/21 09:46 [facility] [id number] 07/28/21 09:47 [facility] 07/28/21 09:46 Wound Care Nurse 3 #1 right posterior LE -Ulcer Cleansing Rinsed/ Irrigated with Saline -Foul Odor after Cleansing No -Primary Dressing Applied C Hydrogel ($) -Primary Dressing Covered/Secured with Dry Gauze & Roll Gauze, Secured with Tape Right -Other applied down double layer tubi size e Treatment Response Procedure Tolerated Well Pain Scale: 0-10 Numeric Is Patient Pain Free? Yes - Visit Discharge Discharge Condition Stable Ambulatory Status Ambulatory,Cane Transportation Private Auto Assessment/Plan Assessment/Plan (1) Peripheral vascular disease, unspecified: CODE(S): I73.9 - Peripheral vascular disease, unspecified (2) 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 layer exposed: CODE(S): L97.212 - 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 layer exposed PLAN: Patient examined evaluate, findings discussed with patient in detail. Wound significantly improving at this time with edema management. Once the wounds are completely healed we will likely proceed with compression stockings. Patient's ejection fraction is 50% at this time. Patient awaiting hemodialysis with end-stage renal disease. He is getting a port put in at the end of August. Patient will continue using compression to manage his edema peripherally. Patient was evaluated by vascular surgery, they recommend sclerosing therapy to veins right lower extremity. They dispensed a prescription for custom compression stockings the patient. Patient will continue compression elevation and exercise to assist patients edema. Today we dressed the wound with Lala dry sterile dressing and a double layer Tubigrip. He will perform this dressing on a daily basis. Patient's wound significantly he improved at this time patient will follow up if there is any recurrence in the future.
[2021-08-21 14:04] VITALS: BP 121/62; PULSE 67; RESP 18; TEMP 36.1; BMI 38.7
== END 2021-08-22 23:59 | disposition home or self-care (01) ==
LOC: WC 13:15
PROVIDERS: PCP Family Medicine; Visit Provider Podiatrist
DX: I73.9 Peripheral vascular disease, unspecified (principal); L97.212 Non-pressure chronic ulcer of right calf with fat layer exposed; N18.6 End stage renal disease
CPT/HCPCS: 97597; 99211; 99212; G0463

== ENCOUNTER 2022-02-10 11:57 | Emergency (ER) | payer MEDICARE, OTHER, SELFPAY ==
[2020-11-21 14:37] VITALS: BMI 39.9
[2022-02-10 11:58] VITALS: BP 69/57; PULSE 84; RESP 14; TEMP 35.7; O2SAT 92; BMI 29.8
--- NOTE | 2022-02-10 12:12 | CT_ITS ---
STUDY: CT BRAIN WITHOUT CONTRAST REASON FOR EXAM: Male, 81 years old. Headache, patient on HEPARIN RADIATION DOSAGE (If Supplied By Facility): CTDIvol = ( 44.99 ) mGy, DLP = ( 829.85 ) mGycm TECHNIQUE: Transaxial CT imaging of the brain was performed without administration of intravenous contrast material. Individualized dose optimization techniques were used for this CT. COMPARISON: No relevant priors. FINDINGS: No demonstrated skull fracture, there are nonspecific calcifications within the scalp. Normal size ventricles and extra-axial spaces for the patient''s age. There are areas of decreased attenuation within the white matter tracts of the supratentorial brain, consistent with microvascular disease changes. Normal basal ganglia and thalami. Normal brainstem. Normal cerebellum. There is no intracranial hemorrhage. There are no findings of an acute ischemic infarction. Normal visualized paranasal sinuses. There is evidence of periodontal disease within the anterior left maxilla best seen on axial images [address]/Brain/Head without Contrast IMPRESSION: Chronic involutional changes of the brain. No acute hemorrhage Left maxillary periodontal disease Electronically Signed: Manuel John MD at 12:54 EDT ,
[2022-02-10 12:13] VITALS: BP 70/42
--- NOTE | 2022-02-10 12:16 | EKG12_ITS ---
Test Reason : SYNCOPE Blood Pressure : / mmHG Vent. Rate : 081 BPM Atrial Rate : 000 BPM P-R Int : 000 ms QRS Dur : 106 ms QT Int : 388 ms P-R-T Axes : 000 007 070 degrees QTc Int : 450 ms Atrial fibrillation Inferior infarct , age undetermined Anterior infarct , age undetermined , cannot be excluded Abnormal ECG Confirmed by PROMISE GOMEZ, LAST ([id number]), communications editor KIMMY SAWYER ([id number]) on 02/15/2022 9:32:12 AM Referred By: Confirmed By:LAST VIRGEN MD
[2022-02-10 12:23] VITALS: BP 79/46; PULSE 93; RESP 16; O2SAT 99
[2022-02-10 12:37] LABS: Absolute Lymphocyte Count 0.34 X10^3/uL (0.83-4.51); Absolute Neutrophil Count 7.5 X10^3/uL (2.0-7.7); Basophil# 0.02 X10^3/uL; Basophil% 0.2 % (0-1); Eosinophil# 0.06 X10^3/uL; Eosinophils% 0.7 % (0-5); Hematocrit 38.4 % (40-54); Hemoglobin 12.2 g/dL (13.0-16.5); Lymphocyte # 0.34 X10^3/ul (0.83-4.51); Lymphocyte % 4.1 % (19-41); Mean Corp Hgb Conc 31.8 g/dL (32-36); Mean Corpuscular Hgb 28.8 pg (27.0-32.0); Mean Corpuscular Volume 90.6 fL (80-94); Mean Platelet Vol. 10.4 fl (6.2-12.0); Monocyte% 4.8 % (0-10); NRBC Flagged by Analyzer 0 % (0-5); Neutrophil # 7.48 X10^3/uL (2.7-7.7); Neutrophil % 89.4 % (47-70); POSITIVE COUNT YES; POSITIVE DIFFERENTIAL YES; Platelet Count 81 K/mm3 (150-450); RBC Distribution Width CV 15.2 % (11.6-14.6); RBC Distribution Width SD 49.9 fl (35.1-43.9); Red Blood Count 4.24 M/mm3 (4.6-6.2); White Blood Count 8.4 K/mm3 (4.4-11.0)
[2022-02-10 12:43] LABS: Differential Indicated SCAN CRITERIA MET
[2022-02-10 12:44] LABS: Anion Gap 11 (5-15); BUN 34 mg/dL (7-18); BUN/Creat Ratio 7.5 RATIO (10-20); Calcium,Total 9.8 mg/dL (8.5-10.1); Chloride 95 mmol/L (98-107); Creatinine, Serum 4.53 mg/dL (0.70-1.30); EST Glomerular Filtration Rate 13 mL/min (>60); Est Glom Filt Rate - Afr Amer 16 mL/min (>60); Estimated Creatinine Clearance 12.79 ml/min; Glucose 133 mg/dL (74-106); Sodium Level 133 mmol/L (136-145)
[2022-02-10 12:54] LABS: Differential Comment SCANNED
[2022-02-10 12:55] LABS: Platelet Estimate MOD DEC (ADEQ)
[2022-02-10 13:07] VITALS: BP 85/50
[2022-02-10 13:36] VITALS: BP 92/48
--- NOTE | 2022-02-10 13:41 | EX.ED.DYSGE1 ---
HPI History of Present Illness Chief Complaint: Head Injury Detail of Chief Complaint: Patient fell from scale after dialysis. He hit his head. He was hepariniz Informant: patient Onset/Context/Timing Onset: Hours Context: Sudden Onset Timing: Intermittent Quality: Orthostatic Location: E[place]en gnosis Current Severity: Mild Maximum Severity: Severe Worsened by: Standing Relieved by: Supine Associated Symptoms Associated Symptoms: None Narrative Narrative: Patient is a 81-year-old male who states predialysis weight was 91 kg. Postdialysis weight was 88 kg. They were weighing him when he became lightheaded fell hitting his head. He was heparinized. He denies headache. Does complain of head pain. He denies nausea, vomiting diarrhea. [place] ringing in his ears. Immunizations up-to-date. He denies neck pain. Denies paresthesia, anesthesia or motor weakness presently at the time of the impact. He denies black or maroon-colored stool. Prior similar symptoms: No Recent Illness/Hospitalization: No PFSH PFS Medical History Acute combined systolic (congestive) and diastolic (congestive) heart failure Acute respiratory failure with hypoxia and hypercapnia (12/30/19) Ambulates with cane Atherosclerotic heart disease of [place] coronary artery without angina pectoris Cardiology follow-up encounter Chronic combined systolic and diastolic CHF (congestive heart failure) Chronic renal failure, stage 4 (severe) CPAP (continuous positive airway pressure) dependence Diabetic neuropathy associated with type 2 diabetes mellitus Easy bruising Essential (primary) hypertension Excessive bleeding Former smoker History of atrial fibrillation History of CHF (congestive heart failure) History of echocardiogram History of edema History of non-ST elevation myocardial infarction (NSTEMI) (12/31/19) History of renal disease History of stress test Hyperlipidemia Hyperphosphatemia Hypothyroidism Insulin dependent diabetes mellitus Iron deficiency anemia Ischemic cardiomyopathy Left atrial enlargement Longstanding persistent atrial fibrillation Morbid obesity Obstructive sleep apnea On home oxygen therapy Pulmonary edema (12/30/19) Shortness of breath on exertion Type 2 diabetes mellitus Unsteady gait when walking Home Medications aspirin 81 mg tablet,delayed release 81 mg PO DAILY Check with primary doctor 07/17/15 [History Last Taken 01/06/20 08:00] sodium bicarbonate 650 mg tablet 650 mg PO .q day 07/29/17 [History Last Taken 01/06/20 09:00] blood sugar diagnostic #20 ea 08/18/17 [History Last Taken Unknown] ergocalciferol (vitamin D2) 50 mcg (2,000 unit) capsule 50 mcg PO DAILY 01/24/20 [History Last Taken Unknown] pen needle, diabetic 32 gauge x 5/32 (BD Ultra-Fine [place] Pen Needle) #100 ea 02/18/20 [Rx Last Taken Unknown] doxazosin 1 mg tablet 1 mg PO QHS #90 tabs 12/11/20 [Rx Last Taken Unknown] hydralazine 50 mg tablet 50 mg PO TID #270 tabs 12/11/20 [Rx Last Taken Unknown] metoprolol succinate 100 mg tablet,extended release 24 hr 100 mg PO DAILY #90 tabs 12/11/20 [Rx Last Taken Unknown] insulin glargine 100 unit/mL (3 mL) subcutaneous pen 14 unit (0.14 mL) subcut QHS #15 mL 05/15/21 [Rx Last Taken Unknown] levothyroxine 75 mcg tablet 75 mcg PO DAILY Check with primary doctor #30 tabs 05/22/21 [Rx Last Taken Unknown] lovastatin 40 mg tablet 40 mg PO QPM 06/02/21 [History Last Taken Unknown] furosemide 40 mg tablet 80 mg PO DAILY Weight Gain 06/10/21 [History Last Taken Unknown] isosorbide mononitrate 30 mg tablet,extended release 24 hr 30 mg PO DAILY #90 tabs 07/21/21 [Rx Last Taken Unknown] spironolactone 25 mg tablet 25 mg PO MOWEFR #45 tabs 07/21/21 [Rx Last Taken Unknown] pen needle, diabetic 32 gauge x 5/32 (BD Ultra-Fine [place] Pen Needle) #100 ea 07/30/21 [Rx Last Taken Unknown] warfarin 5 mg tablet 5 mg PO MOTUWEFRSA 09/07/21 [History Last Taken Unknown] Allergy/AdvReac Type Severity Reaction Status Date / Time Penicillins AdvReac Severe Swelling Verified 02/10/22 11:58 Family History Father , age 79, of embolism CAD (coronary artery disease) Embolism Myocardial infarction Mother , age 74 Kidney disease renal failure Brother Kidney disease Sister Breast cancer Surgical History History of back surgery (01/2019) History of coronary artery stent placement (06/03/15) History of left heart catheterization (01/03/20) History of total right knee replacement History of total right knee replacement (TKR) Social History (Updated 02/10/22 @ 13:[address] Azeem Montague MD) household members: none Smoking Status: Former smoker how long ago did patient quit smokin second hand exposure: No alcohol intake: never substance use type: does not use ROS ROS ED Constitutional Constitutional ED: Denies chills, fever(s), subjective, sweats or weight loss Eyes Eyes: Denies blurry vision, change in vision or diplopia ENT ENT ED: Denies ear pain, rhinorrhea or sore throat Cardiovascular Cardiovascular: Reports other Details: Orthostatic symptoms ; Denies chest pain, orthopnea, palpitations, paroxysmal nocturnal dyspnea or racing heartbeat Respiratory/Chest Respiratory/Chest: Denies cough, dyspnea, dyspnea on exertion, orthopnea or paroxysmal nocturnal dyspnea Gastrointestinal Gastrointestinal: Denies abdominal pain, diarrhea, melena, nausea or vomiting Musculoskeletal Musculoskeletal: Denies arthralgias, back pain, myalgias or neck pain Integumentary Reports Abrasions; Denies rash Neurologic Neurologic: Denies headache(s), paresthesias or weakness Hematologic/Lymphatic Hematologic/Lymphatic: Reports none and anemia; Denies easy bleeding or easy bruising Allergic/Immunologic Allergic/Immunologic ED: Denies mouth swelling, tongue swelling or urticaria EXAM Physical Exam Const Vital Signs: 02/10/22 11:58 02/10/22 12:00 02/10/22 12:13 Temperature 96.3 F L Temperature Source Temporal Pulse Rate 84 Respiratory Rate 14 Respiratory Effort Normal Respiratory Depth Normal Respiratory Pattern Normal Blood Pressure 69/57 L 70/42 L Blood Pressure Mean 61 51 Pulse Ox 92 Oxygen Delivery Method Room Air Room Air 02/10/22 12:23 02/10/22 13:07 02/10/22 13:36 Temperature Temperature Source Pulse Rate 93 Respiratory Rate 16 Respiratory Effort Respiratory Depth Respiratory Pattern Blood Pressure 79/46 L 85/50 L 92/48 L Blood Pressure Mean 57 61 62 Pulse Ox 99 Oxygen Delivery Method Room Air Positive well nourished and well developed General Appearance ED: well developed and NAD; Negative for cyanotic, diaphoretic or pallor HEENT Reports moist mucous membranes HEENT Narrative: There is an abrasion noted right parietal area. There is no palpable depression. There is no clinical findings of basilar skull fracture. There is no septal deviation hematoma noted. trauma Eyes PERRL and EOMs intact bilaterally Eyes Narrative: There is no subconjunctival hemorrhage noted. General Eye ED: Negative for pale conjunctiva or scleral icterus Neck no lymphadenopathy, supple and no JVD Chest Wall inspection of chest normal and palpation of chest normal Resp normal respiratory effort and clear to auscultation bilaterally Cardio regular rate, regular rhythm, S1 normal heart sound, S2 normal heart sound and no murmurs GI normal to inspection, nondistended, normoactive bowel sounds, non-tender, non-distended and no masses; Negative for hepatosplenomegaly GI Narrative: There is no pain ovation of his pelvis. Back/Spine no CVA tenderness Cervical Spine: Negative for cervical spine tenderness Thoracic Spine / Upper Back: Negative for thoracic spinal tenderness Lumbar Spine / Lower Back: Negative for lumbar spinal tenderness Neuro oriented x3, CN's II-XII intact bilaterally and no sensory deficits noted Sensorium / Orientation: alert Motor Exam: strength 5/5 throughout Psych mental status grossly normal Skin no rashes or lesions noted and No no wounds General Skin Exam: Negative for jaundice, pallor or other Trauma: abrasion MDM MDM MDM Narrative Medical decision making narrative: Since patient was heparinized with head trauma will obtain CT to rule out bleed. Initial vital signs revealed him to be hypotensive. Repeat vitals revealed he is hypotensive. Blood work was obtained. Patient's hemoglobin is 3 g higher than normal suspect he is volume depleted and reason for falling when he stands. He did receive a 500 cc bolus. His blood pressure improved from 69/57-90 2/48. His laboratory studies are otherwise unremarkable. Lab Data Attestation: I reviewed the patient's lab results. Lab results narrative: For me that his hemoglobin is now 12. He has been receiving iron infusions. Labs: Laboratory Results - last 24 hr 02/10/22 02/10/22 11:23 11:23 WBC 8.4 RBC 4.24 L Hgb 12.2 L Hct 38.4 L MCV 90.6 MCH 28.8 MCHC 31.8 L RDW Std Deviation 49.9 H RDW Coeff of Moni 15.2 H Plt Count 81 L MPV 10.4 Immature Gran % (Auto) 0.800 Neut % (Auto) 89.4 H Lymph % (Auto) 4.1 L Stanley % (Auto) 4.8 Eos % (Auto) 0.7 Baso % (Auto) 0.2 Absolute Neuts (auto) 7.5 Absolute Lymphs (auto) 0.34 L Nucleated RBC % 0 Differential Comment SCANNED Platelet Estimate MOD DEC Sodium 133 L Potassium 4.0 Chloride 95 L Carbon Dioxide 27.0 Anion Gap 11 BUN 34 H Creatinine 4.53 H Estim Creat Clear Calc 12.79 Est GFR (MDRD) Af Amer 16 L Est GFR (MDRD) Non-Af 13 L BUN/Creatinine Ratio 7.5 L Glucose 133 H Calcium 9.8 Radiography Diagnostic Testing: Clinical Impression(s) from Imaging Studies Brain CT 02/10/22 12:12 IMPRESSION: Chronic involutional changes of the brain. No acute hemorrhage Left maxillary periodontal disease Electronically Signed: Manuel John MD at 12:54 EDT Reading Location ID and State: [facility] / [place] , Service support , EKG Initial EKG: Attestation: I personally reviewed and interpreted this EKG as follows: Interpretation: Atrial Fibrillation (Ventricular rate is 81. QRS duration 106 ms. QT duration 388 ms. [place] is normal. He has decreased anterior force.) Discharge Plan Triage Chief Complaint: Head Injury ED Provider: Azeem Montague Dx/Rx/DC Orders Clinical Impression: Orthostatic hypotension, Essential (primary) hypertension, Type 2 diabetes mellitus, Longstanding persistent atrial fibrillation, Ischemic cardiomyopathy, CHI (closed head injury), Anticoagulant effect Instructions: ED Head Injury (Adult), ED Hypotension, Orthostatic Prescriptions: No Action (DME) blood sugar diagnostic strip 1 applic MISCELL. .MEDSUPPLY Qty: 20 Rx Instructions: use to check BG tid ergocalciferol (vitamin D2) 50 mcg (2,000 unit) capsule 50 mcg PO DAILY insulin glargine 100 unit/mL (3 mL) insulin pen 14 unit subcut QHS Qty: 15 4RF aspirin 81 MG tablet,delayed release (DR/EC) 81 mg PO DAILY Rx Instructions: chronic kidney disease sodium bicarbonate 650 mg tablet 650 mg PO .q day lovastatin 40 mg tablet 40 mg PO QPM warfarin 5 mg tablet 5 mg PO MOTUWEFRSA Protocol: Dose Management Condition: Tuesday Dose/Route: 5 mg Instruction: 1 x 5 mg tablet Condition: Tuesday Dose/Route: 2.5 mg Instruction: 0.5 x 5 mg tablets Condition: Tuesday Dose/Route: 5 mg Instruction: 1 x 5 mg tablet Condition: Tuesday Dose/Route: 5 mg Instruction: 1 x 5 mg tablet Condition: Dose/Route: 2.5 mg Instruction: 0.5 x 5 mg tablets Condition: Tuesday Dose/Route: 5 mg Instruction: 1 x 5 mg tablet Condition: Tuesday Dose/Route: 5 mg Instruction: 1 x 5 mg tablet Protocol Text: Adjustment Start Date: Tuesday07/15/21 INR Value: 2.2 INR Date: 07/15/21 Recheck Date: 08/12/21 Rx Instructions: 2.5 MG ON / (DME) pen needle, diabetic [BD Ultra-Fine [place] Pen Needle] 32 gauge x 5/ needle See Rx Instructions .ROUTE .MEDSUPPLY Qty: 100 2RF Rx Instructions: daily doxazosin 1 mg tablet 1 mg PO QHS Qty: 90 3RF metoprolol succinate 100 mg tablet extended release 24 hr 100 mg PO DAILY Qty: 90 3RF hydralazine 50 mg tablet 50 mg PO TID Qty: 270 3RF levothyroxine 75 mcg tablet 75 mcg PO DAILY Qty: 30 3RF Rx Instructions: hypothyroidism furosemide 40 mg tablet 80 mg PO DAILY isosorbide mononitrate 30 mg tablet extended release 24 hr 30 mg PO DAILY Qty: 90 3RF spironolactone 25 mg tablet 25 mg PO MOWEFR Qty: 45 3RF Rx Instructions: 25 mg PO one tablet by mouth daily on Tuesday, Tuesday and Tuesday (DME) pen needle, diabetic [BD Ultra-Fine [place] Pen Needle] 32 gauge x 5 needle See Rx Instructions .ROUTE .MEDSUPPLY Qty: 100 4RF Rx Instructions: DAILY Primary Care Provider: Masha Treviño Referrals: Masha Treviño MD [Primary Care Provider] - As Needed Disposition Disposition: Home, Self Care
[2022-02-10 14:19] VITALS: BP 95/61; PULSE 88; RESP 16; TEMP 36.6; O2SAT 99
== END 2022-02-10 14:20 | disposition home or self-care (01) ==
PROVIDERS: Emergency Provider Emergency Medicine; PCP Family Medicine; Visit Provider Emergency Medicine
DX: I95.1 Orthostatic hypotension (principal); I48.19 Other persistent atrial fibrillation; E11.9 Type 2 diabetes mellitus without complications; S09.90XA Unspecified injury of head, initial encounter; I25.10 Atherosclerotic heart disease of native coronary artery without angina pectoris; I25.5 Ischemic cardiomyopathy; Z95.5 Presence of coronary angioplasty implant and graft; G47.33 Obstructive sleep apnea (adult) (pediatric); Z99.81 Dependence on supplemental oxygen; Z87.891 Personal history of nicotine dependence; W19.XXXA Unspecified fall, initial encounter
CPT/HCPCS: 70450; 80048; 85025; 93005; 99283; J7040

== ENCOUNTER → 2022-03-17 | Outpatient (CLI) | payer MEDICARE, OTHER, SELFPAY ==
[2020-11-21 14:37] VITALS: BMI 39.9
--- NOTE | 2022-03-17 10:45 | ECHOCS_ITS ---
Reason For Study: Afib/Aflutter Procedure This was a 2D Doppler, Color Flow transthoracic echocardiogram. Contrast injection was performed. Exam performed in department. Left Ventricle Normal LV size. The estimated ejection fraction is 35 %. Moderate segmental systolic dysfunction (see wall motion). [place] : Akinetic. Anterior [place] : Hypokinetic. Inferior [place] : Hypokinetic. The rest of the wall segments are normal. Right Ventricle Normal RV size. Normal systolic function. Atria The left atrium is severely enlarged. The right atrium is moderately enlarged. Mitral Valve There is mild to moderate mitral annular calcification. Mild (1+) eccentric mitral valve insufficiency. Tricuspid Valve Normal tricuspid valve. Mild to moderate (1-2+) tricuspid valve insufficiency. Pulmonary artery systolic pressure is 57 mmHg. Moderate pulmonary hypertension. Aortic Valve Trisinus/trileaflet aortic valve. Moderate focal aortic valve calcification. Peak aortic valve gradient 22 mmHg. Mean aortic valve gradient 12 mmHg. Pulmonic Valve The pulmonic valve is not well visualized. Great Vessels Normal aortic root. The pulmonary artery is normal size. The inferior vena cava is dilated. and partially collapses. Pericardium/Pleural No pericardial effusion. Medication Diluted definity 2ml given slow IV push to enhance endocardial definition. MMode/2D Measurements & Calculations LVIDd: 5.2 cm IVSd: 1.4 cm LVOT diam: 2.0 cm LVIDs: 3.3 cm LVPWd: 1.3 cm RVDd: 4.5 cm FS: 36.6 % LVOT area: 3.0 cm2 Ao root diam: 3.6 cm LAV(MOD-bp): 164.2 ml LVAd ap4: 47.5 cm2 ACS: 1.3 cm LAV(MOD-bp) Indexed: 81.0 ml/m2 LVLd ap4: 9.3 cm LAV(MOD-sp2): 159.8 ml EDV(MOD-sp4): 200.3 ml LAV(MOD-sp4): 157.3 ml EDV(sp4-el): 206.8 ml LVAs ap4: 39.4 cm2 LVLs ap4: 9.0 cm ESV(MOD-sp4): 137.9 ml ESV(sp4-el): 145.9 ml EF(MOD-sp4): 31.2 % EF(sp4-el): 29.5 % SV(MOD-sp4): 62.4 ml SV(sp4-el): 60.9 ml LA A4 area: 39.8 cm2 LA dimension(2D): 6.2 cm RA A4 area: 24.3 cm2 Doppler Measurements & Calculations MV E max raj: 133.6 cm/sec Ao V2 max: 235.0 cm/sec LV V1 max: 130.1 cm/sec Ao max P.1 mmHg LV V1 max P.8 mmHg Ao V2 mean: 166.1 cm/sec LV V1 mean P.1 mmHg Ao mean P.2 mmHg LV V1 mean: 96.7 cm/sec Ao V2 VTI: 52.3 cm LV V1 VTI: 27.7 cm ERICA(I,D): 1.6 cm2 ERICA(V,D): 1.7 cm2 SV(LVOT): 82.8 ml PA V2 max: 91.8 cm/sec TR max raj: 350.0 cm/sec TR max P.0 mmHg ECHO/Echo Complete W/ Contrast Interpretation Summary Normal LV size. The estimated ejection fraction is 35 %. Moderate segmental systolic dysfunction (see wall motion). The left atrium is severely enlarged. Mild (1+) eccentric mitral valve insufficiency. Mild to moderate (1-2+) tricuspid valve insufficiency. Pulmonary artery systolic pressure is 57 mmHg. Moderate pulmonary hypertension. Moderate focal aortic valve calcification. Contrast injection was performed. Compared to previous study, the left ventricu lar systolic function has improved.. Ordering Physician: Russ Boss Referring Physician: Masha Treviño Performed By: Danielle Betancur, RDCS, RVT
== END | disposition home or self-care (01) ==
LOC: CVS 10:44
PROVIDERS: PCP Family Medicine; Visit Provider Internal Medicine Cardiovascular Disease
DX: I48.11 Longstanding persistent atrial fibrillation (principal)
CPT/HCPCS: 93306; Q9957; A4216; C8929

== ENCOUNTER 2022-04-29 15:30 | Outpatient (RCR) | payer MEDICARE, OTHER, SELFPAY ==
[2020-11-21 14:37] VITALS: BMI 39.9
--- NOTE | 2022-02-16 11:54 | HP.PTEVAL_ITS ---
Patient's Visit Information HANS GLASS is a 81 year old M referred to Physical Therapy by Dr. Masha Treviño MD with a diagnosis of Debility. Date of Evaluation: 02/16/22 Physical Therapist: Mildred Smith DPT - Visit Plan Frequency: 2x /Week Duration: 4 Weeks Plan: Focus on LE and core strength/stabilization. Caution: Low Blood Pressure! Do not take in left UE. HEP Given IE: Kitchen Sink Ex: marching, hip extn, hip abd, HR, sit to stand - Subjective Patient reports that on September 09 he had an TN- spent 9 days in the hospital in [place]- emergency dialysis- port in his right arm and then two days later put a permanent one in the left arm. He stayed at his daughters- 2 weeks later he woke up with his hernia- they did an emergency surgery- had abdominal surgery- 25 stitches in his belly. Spent 14 days in the hospital- got out again- cardiac rehab- finished that and did his dialysis- Fistula in the left arm and 2 weeks ago they pulled out his port. He just got home from [place]- felt great but he has lost a lot of mobility since he has been back. He flew back on 02/06. Daughter has been taking care of him in [place]. He has been cleared to do PT. Feels that he has gotten weaker since he got back and his BP is low. Just started dialysis here last week- took a fall due to BP low. 3x a week for 4 hours. He is tired after so he will do PT 2x a week on Tuesday and . Goals: balance and get stronger. Does have some anterior shoulder pain that is there all the time- agg by lifting things. He has neuropathy in bilateral LE from his knees down. Hit his head with fall but everything came back normal- they think it was low blood pressure. Stairs to get in/out of the house- he is a lot more active here than he was in [place]. PMHx/Meds: see ER visit - Objective Posture: FH, RS- can correct but does not maintain. Gait: FWW- slow justin. HR/TR: able with UE A. SLS: weight shift but does not SLS. ROM: WFL in all planes. Strength: Core: fair, Hip: 4/5 throughout, Knee: 4+/5 with crepitus, Ankle: 5/5. Flex: HS: severe, Gastroc: mod - Balance/Special Test Scores Functional Gait Assessment Score: 13 % Disability: 56.6700 Lower Extremity Functional Score: 30 TUG Test Time Seconds: 22 - Goals Goal 1:: Patient will be I with HEP and progression Goal Time Frame: 4-6 Weeks Goal 2:: Patient will improve TUG to under 10 sec with LRD Goal Time Frame: 4-6 Weeks Goal 3:: Patient will sit to stand without UE A x 5 reps Goal Time Frame: 4-6 Weeks Goal 4:: Patient will report 80 % improvement Goal Time Frame: 4-6 Weeks - Rehabilitation Potential Physical Therapy Diagnosis: Patient presents with hypomobility- he has decreased LE and core strength/stabilization, flex and muscular endurance leading to abnormal gait, balance and decreased ability to perform ADL's. Rehabilitation Potential: Fair - Anticipated Interventions Patient/Client Instruction: Educate patient on: Benefits of Fitness Program Therapeutic Exercise to Include: Strength training, Endurance training, Balance training, Coordination, Body mechanics, Postural training, Flexibilty training, Gait and locomotor training, Neuromotor development, Dynamic Lumbar Stabilization, Scapular Strength/Stabilization For the Purpose of:: To improve muscle performance and motor function Thank you for the opportunity to evaluate your patient. For Medicare and Medicare HMO plans, please review the plan of care and approve it. It will need to be FAXED BACK to us at [phone] for Medicare purposes. For Medicare only, by signing this I certify the plan of care. Please let me know if there are questions or concerns regarding this plan of care. Physician Signature: Date:
--- NOTE | 2022-03-25 14:53 | HP.PTREVAL ---
Dr. Masha Treviño MD, It has been my pleasure to treat HANS GLASS over the last 8 visits for Debility. Please see the progress note below for an update on the physical therapy plan of care! Subjective: Patient reports that he is using his walker for community distances but his cane/no AD in his home. He is not back to driving- but he is back to almost all of his ADL's. Objective/Function: Posture: Fair throughout. Gait: straight cane in the clinic. HR/TR: able with UE A. SLS: weight shift but does not SLS. ROM: WFL in all planes. Strength: Core: fair, Hip: 4+/5 throughout, Knee: 4+/5 with crepitus, Ankle: 5/5. Flex: HS: severe, Gastroc: mod Plan Plan: 03/25/22: Continue PT 2x a week for 4 weeks- for balance and gait with/without AD. IE: Focus on LE and core strength/stabilization. Caution: Low Blood Pressure! Do not take in left UE. Plans to rejoin the gym at d/c. Balance/Gait/Functional tests - Balance/Special Test Scores Functional Gait Assessment Score: 16 % Disability: 46.6700 Lower Extremity Functional Score: 35 TUG Test Time Seconds: 15 Tug Test: <20 sec.=mostly independent Goals Goal 1:: Patient will be I with HEP and progression Goal Time Frame: 4-6 Weeks Goal Progress: Progressing Goal 2:: Patient will improve TUG to under 10 sec with LRD Goal Time Frame: 4-6 Weeks Goal Progress: Progressing Goal 3:: Patient will sit to stand without UE A x 5 reps Goal Time Frame: 4-6 Weeks Goal Progress: Progressing Goal 4:: Patient will report 80 % improvement Goal Time Frame: 2 Weeks Anticipated Interventions Patient/Client Instruction: Educate patient on: Benefits of Fitness Program Therapeutic Exercise to Include: Strength training, Endurance training, Balance training, Coordination, Body mechanics, Postural training, Flexibilty training, Gait and locomotor training, Neuromotor development, Dynamic Lumbar Stabilization, Scapular Strength/Stabilization For the Purpose of:: To improve muscle performance and motor function Please do not hesitate to contact me at [phone] by phone or if you have questions or concerns regarding this new plan of care! Sincerely, Mildred Smith, KORYT
--- NOTE | 2022-04-29 16:58 | HP.PTDCSUM ---
It has been my pleasure to treat HANS GLASS referred by Dr. Masha Treviño MD, with the diagnosis of Debility for a total of 14 visit(s). Discharge Date: Please see the following information for a summary of their discharge status. Subjective: Pt reports that he just feels like its slow- he knows that this is something he will need to do forever. He is fully indep with a gym program and feels like he can continue indep L toe Pain Intensity (Out of 10): 6 % Improvement: 40 Objective/Function: Posture: Fair throughout. Gait: straight cane in the clinic. HR/TR: able with UE A. SLS: weight shift but does not SLS. ROM: WFL in all planes. Strength: Core: fair, Hip: 4+/5 throughout, Knee: 4+/5 with crepitus, Ankle: 5/5. Flex: HS: severe, Gastroc: mod Goal 1:: Patient will be I with HEP and progression Goal Progress: Progressing Goal 2:: Patient will improve TUG to under 10 sec with LRD Goal Progress: Progressing Goal 3:: Patient will sit to stand without UE A x 5 reps Goal Progress: Progressing Goal 4:: Patient will report 80 % improvement Plan: 04/29/21: Discharge to HEP- encouraged to call if questions If there are questions or concerns regarding this patient's physical therapy, please feel free to call me at [phone]. Thank you for the referral of this patient. Sincerely, Mildred Smith, DPT Balance/Gait/Functional tests - Balance/Special Test Scores Functional Gait Assessment Score: 16 % Disability: 46.6700 Lower Extremity Functional Score: 35 TUG Test Time Seconds: 15 Tug Test: <10 sec.=free mobile
== END 2022-04-29 19:00 | disposition home or self-care (01) ==
LOC: PT 15:30
PROVIDERS: PCP Family Medicine; Referring Provider Family Medicine; Visit Provider Family Medicine
DX: M62.81 Muscle weakness (generalized) (principal)
CPT/HCPCS: 97110; 97162; 97164

== ENCOUNTER → 2022-05-11 | Outpatient (CLI) | payer MEDICARE, OTHER, SELFPAY ==
[2020-11-21 14:37] VITALS: BMI 39.9
--- NOTE | 2022-05-11 09:41 | AVDS_ITS ---
Reason For Study: CKD Stage 4 LEFT Inflow, 233.8/104.7 cm/sec. Inflow, 1001 ml/min. Prox anastomosis, 564.7/288.8 cm/sec. Prox anastomosis, 546.8 ml/min. Prox graft, 130.9/42 cm/sec. Prox graft, 1933 ml/min. Mid graft, 83.7/38.9 cm/sec. Mid graft, 1387 ml/min. Distal graft, 86.7/41.9 cm/sec. Distal graft, 900.1 ml/min. Outflow, 70.1/42.5 cm/sec. Outflow, 431.4 ml/min. Pseudoaneurysm noted in the mid bicep coming off distal graft that measures 1.98 x 3.23 x 3.78 cm and a neck of 0.20 cm. Pseudoaneurysm is partially thrombosed. Preliminary report given to Emperatriz CAZARES and Nataly Villagomez PA-C. Patient released home per office. VL/AV Fistula/Dialysis Graft Scan Interpretation Summary Left upper extremity arteriovenous hemodialysis fistula with high fistula flow to a maximum of 1933 mm/min. Pseudoaneurysm noted in the mid bicep area measuring 1.98 x 3.23 x 3.78 cm with a neck of 0.2 cm partially thrombosed. Ordering Physician: Steve Lunsford Referring Physician: Masha Treviño M.D. Performed By: Janee Laguna RVT
== END | disposition home or self-care (01) ==
LOC: CVS 09:36
PROVIDERS: PCP Family Medicine; Visit Provider Surgery
DX: N18.4 Chronic kidney disease, stage 4 (severe) (principal)
CPT/HCPCS: 93990

== ENCOUNTER 2022-05-17 10:44 | Outpatient (CLI) | payer MEDICARE, OTHER, SELFPAY ==
[2020-11-21 14:37] VITALS: BMI 39.9
--- NOTE | 2022-05-17 10:46 | ADUUE_ITS ---
Reason For Study: Pseudoaneurysm thrombin injection LEFT S/P left upper extremity pseudoaneurym thrombin injection 05/17/22. Post scan done about 1hr after thrombin injection Post injection pseudo measures 2.07 x 3.42 x 4.14 cm, with a neck of 0.20 cm. Minimal blood flow noted within the pseudoaneurysm as compared to prior to thrombin injection. Normal fistula flow noted in the left distal graft. VL/US Art Duplex Unilat UP Extrem Interpretation Summary As per operative note a ultrasound-guided thrombin injection was performed. Subsequent images demonstrate that the arteriovenous upper arm brachiocephalic AV fistula is patent. The majority of the pseudoaneurysm appears to be thrombosed. There is a very sl ight amount of residual scattered flow within the pseudoaneurysm. Ordering Physician: Steve Lunsford Referring Physician: Masha Treviño M.D. Performed By: Janee Laguna RVT
--- NOTE | 2022-05-17 11:40 | HP.PCM_ITS ---
History and Physical Date of Admission: 05/17/22 Visit Reasons:?EST CARE OF FISTULA, EVAL FOR FISTULAGRAM Chief Complaint: est fistula care [employer]dn[employer] Technician Required: No Is patient in pain?: No Allergies Penicillins Adverse Reaction (Severe, Verified 04/22/22 15:27) Swelling Medications aspirin 81 mg tablet,delayed release 81 mg PO DAILY Check with primary doctor 07/17/15 [History Confirmed 04/22/22] amiodarone 200 mg tablet 200 mg PO DAILY 03/09/22 [History Confirmed 04/22/22] apixaban 2.5 mg tablet (Eliquis) 2.5 mg PO BID 03/09/22 [History Confirmed 04/22/22] atorvastatin 40 mg tablet 40 mg PO QHS 03/09/22 [History Confirmed 04/22/22] cholecalciferol (vitamin D3) 125 mcg (5,000 unit) capsule (Dialyvite Vitamin D) 125 mcg PO DAILY 03/09/22 [History Confirmed 04/22/22] ergocalciferol (vitamin D2) 50 mcg (2,000 unit) capsule 50 mcg PO .2X month 03/09/22 [History Confirmed 04/22/22] furosemide 40 mg tablet 40 mg PO DAILY Weight Gain 03/09/22 [History Confirmed 03/09/22] metoprolol succinate 25 mg tablet,extended release 24 hr 25 mg PO DAILY 03/09/22 [History Confirmed 04/22/22] midodrine 10 mg tablet 10 mg PO BID 03/09/22 [History Confirmed 04/22/22] sevelamer carbonate 800 mg tablet 800 mg PO TID 03/09/22 [History Confirmed 04/22/22] tamsulosin 0.4 mg capsule 0.4 mg PO DAILY 03/09/22 [History Confirmed 04/22/22] PFSH Medical History? Acute combined systolic (congestive) and diastolic (congestive) heart failure Acute respiratory failure with hypoxia and hypercapnia (12/30/19) Ambulates with cane Atherosclerotic heart disease of [place] coronary artery without angina pectoris Axillary adenopathy Chronic combined systolic and diastolic CHF (congestive heart failure) Chronic renal failure, stage 4 (severe) CPAP (continuous positive airway pressure) dependence Diabetic neuropathy associated with type 2 diabetes mellitus Easy bruising Essential (primary) hypertension Excessive bleeding Former smoker Hernia, umbilical, 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) History of edema History of non-ST elevation myocardial infarction (NSTEMI) (12/31/19) History of renal disease Hyperlipidemia Hyperphosphatemia Hypothyroidism Insulin dependent diabetes mellitus Iron deficiency anemia Ischemic cardiomyopathy Left atrial enlargement Longstanding persistent atrial fibrillation Morbid obesity 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 layer exposed Obstructive sleep apnea On home oxygen therapy Pulmonary edema (12/30/19) Shortness of breath on exertion Type 2 diabetes mellitus Unsteady gait when walking Surgical History? History of back surgery (01/2019) History of coronary artery stent placement (06/03/15) History of herniorrhaphy (09/2021) History of left heart catheterization (09/14/21) History of total right knee replacement History of total right knee replacement (TKR) S/P arteriovenous (AV) fistula creation Surgically created abdominal mucous fistula (09/2021) Family History? Father?? ,? age 79, of embolism CAD (coronary artery disease) Embolism Myocardial infarctionMother?? ,? age 74 Kidney disease ?? ? renal failureBrother Kidney diseaseSister Breast cancer Social History? household members:? none Smoking Status:? Former smoker how long ago did patient quit smoking:? 1977 second hand exposure:? No alcohol intake:? never substance use type:? does not use HPI HPI HPI: 81-year-old gentleman is being referred by the [facility] for surgical care of an arteriovenous fistula.? Risk, surgical consult recommendations will return to them.? It is of note that June 29, 2021 I did an ultrasound-guided needle core biopsy of a right axillary mass showing adipose tissue and benign lymph node tissue.? By report is that the patient had a left upper arm arteriovenous fistula placed by Dr. Corey Heller in [place] but now there are difficulties.? Operative reports reflect November 26, 2021 left upper arm brachiocephalic arteriovenous fistula creation.? The patient had a left internal jugular permacath in place..? The patient had left upper extremity swelling postoperatively.? The patient is on Eliquis.? Apparently he developed a hematoma and bleeding at the incision site.? A duplex exam was obtained January 08, 2022 demonstrating 50 to 75% stenosis just distal to the anastomosis.? The fistula was released to use on January 13, 2022 HANS GLASS, is a 81 M who presents to the office today for an outpatient cardiovascular visit. He has a history of coronary artery disease with stenting to his RCA (2002, 2004, and PCI 2015), persistent atrial fibrillation, hypertension, hyperlipidemia, chronic kidney disease, ANKIT with BiPAP and oxygen therapy, and diabetes I had seen the patient previously April 2021 and proposed for him a left upper arm brachiocephalic arteriovenous fistula.? He had significant ascites at that time.? 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 Apparently he then traveled to [place] and had his care initiated there. Upon the patient arrival it becomes apparent that initially he was being referred her just to reestablish care of his left upper arm brachiocephalic arteriovenous fistula however just 3 days ago at dialysis it was infiltrated.? They had success the following day but then again they have had trouble with bleeding from the needle sites.? They are now requesting a urgent evaluation for fistula integrity. The patient states that all the time that he had a used in [place] there were no difficulties.? He states that up until this current infiltration that the fistula was working fine and had not been an access problem.? He is on aspirin and Eliquis therapy. ROS General General: Yes weight change; No appetite, fatigue, colon cancer, breast cancer or weakness HEENT HEENT: No difficulty swallowing, eye injury, eye surgery, swollen glands or hoarseness Endo Endocrine: Yes diabetes mellitus; No thyroid disease, thyroid cancer, Hair loss, heat intolerance or cold intolerance Skin Skin: No rash or changing moles Breast Breast: No left breast lump, right breast lump, nipple discharge, breast pain, abnormal mammogram, abnormal US or breast enlargement Musc Musculoskeletal: Yes back problems; No arthritis, rheumatoid arthritis, gout or joint pain Cardio Cardiovascular: Yes heart disease, atrial fibrillation, high blood pressure, heart attack and heart stent; No murmur, pacemaker, palpitations, shortness of breat with exertion or chest pain Psych Psychiatric: No depression, anxiety or hearing voices Resp Respiratory: No shortness of breath, Yes sleep apnea, No cough, No COPD, No asthma, No emphysema and No wheezing Gastro Gastrointestinal: No abdominal pain, No nausea or vomiting, No diarrhea, No constipation, No blood in stool, No acid reflux, No hemorrhoids, No ulcers, No gallbladder problem and No black,tarry stools [place] Hematologic: Yes blood thinners, No blood disorders, No bleeding, No anemia and No blood clots Neuro Neurologic: No system reviewed and no additional complaints, except as documented, No as per HPI, No abnormal gait, No abnormal hearing, No abnormal movements, No abnormal speech, No behavioral changes, No burning sensations, No confusion, No convulsions, No disequilibrium, No dizziness, No localized weakness, No frequent falls, No headache(s), No lack of coordination, No loss of vision, No memory loss, Yes numbness, No other visual disturbances, No radicular pain, No restless legs, No sensory deficit, No syncope, No tingling, No tremor(s), No weakness and No other Exam Extrem Other: Left upper extremity has a upper arm brachiocephalic arteriovenous hemodialysis fistula.? It does have a pulse thrill and bruit although the bruit is slightly harsh and staccato.? On ultrasound inspection the anastomosis is widely patent and the proximal portion of the fistula appears to be patent.? As noted there had been previous concerns about this area.? The vein appears to be intact throughout the imaging that I was able to observe.? There appears to be a significant hematoma however in the mid and proximal upper arm. Assessment and Plan Assessment and Plan (1) Problem with dialysis access: ?Status:?Acute ? ? ? Orders: Orders AV Fistula/Dialysis Graft Scan Today N18.4 - Chronic kidney disease, stage 4 (severe) ? Plan I do not believe that the left upper arm brachiocephalic arteriovenous? fistula has an intrinsic fistula problem.? I believe that the infiltration and hematoma is causing some extrinsic compression but of course this cannot be improved with a fistulogram.? I have recommended to him elevation and now moist warm heat in an effort to resorb the hematoma. The patient had had a previous duplex exam after the fistula creation when he was in [place] and there was concern about possible stenosis within the proximal portion of the fistula close to the anastomosis.? I am not detecting that on clinical examination today or on ultrasound.? We will schedule him for duplex imaging of his fistula but I would like that to be approximately 2 weeks from now to allow for time for his infiltration and hematoma to improve so that we do not get a false interpretation. I anticipate that he should be cleared to resume attempts at dialysis tomorrow.? I have asked him to simply hold his Eliquis tonight and tomorrow morning hopefully to help alleviate some needle site bleeding which he says was present yesterday. I have instructed him that I do not believe that a urgent fistulogram would off er benefit as I believe the current problem is the infiltration and hematoma which is extrinsic to the vein.? Conservative measures will be required. I appreciate the opportunity of assisting with the surgical care.? I will notify him of his future duplex results with any additional instructions. Copy: Dr Masha Treviño and Dr. Russ Boss and Dr. Ethan Guzman and [facility] Steve Lunsford M.D., F.A.C.S. Patient the patient had a duplex imaging of his left extremity arteriovenous fistula. This demonstrated a sizable pseudoaneurysm. He presents today for attempted thrombin injection. An extensive discussion with the patient and discussed the technique, benefit, risk, alternatives. He is aware that this may require a serial attempt. Steve Lunsford M.D., F.A.C.S.
--- NOTE | 2022-05-17 11:41 | OP.PCM_ITS ---
Report of Operation Date of Procedure: 05/17/22 Pre-Operative Diagnosis: Ultrasound-guided thrombin injection left upper arm ar teriovenous hemodialysis fistula pseudoaneurysm Post-Operative Diagnosis: Successful thrombosis of pseudoaneurysm as noted above Surgery/Procedure Performed:: Ultrasound-guided thrombin injection left upper extremity radial cephalic arteriovenous hemodialysis fistula pseudoaneurysm Description of Surgical Findings:: Timeout and informed consent was obtained. The patient was taken to the vascular lab ultrasound suite. The left upper arm was prepped with chlorhexidine. He has a left upper arm brachiocephalic arteriovenous fistula. Preinterventional images were performed with ultrasound demonstrating a 3.2 x 3.8 cm pseudoaneurysm. The patient is very much aware that this is a sizable structure. I diluted 5000 units of thrombin with 5 cc of 1% lidocaine. Under ultrasound guidance 1% lidocaine was instilled as a local anesthetic. A total of 0.5 cc was used. Then carefully under ultrasound guidance I advanced a 25- gauge needle into the pseudoaneurysm. The needle tip was at the Kirk point from the pseudoaneurysm neck and using a TB syringe I slowly injected the diluted thrombin. Color duplex was performed throughout this procedure as it demonstrated progressive thrombosis of the pseudoaneurysm. Secondary to the size of the pseudoaneurysm I had to use a total of 1.8 cc. Imaging however did demonstrate complete thrombosis of the pseudoaneurysm. The patient had absolutely no discomfort. On ultrasound inspection the fistula was completely intact. It had a palpable thrill. Pseudoaneurysm was not suspected several minutes after this very slow and progressive thrombotic procedure and it was remaining thrombosed. The patient will be held for an hour and repeat images will be obtained.. If that is otherwise unremarkable anticipate repeat imaging at 1 week as well. Steve Lunsford M.D., F.A.C.S. Surgeon: Steve Lunsford Type of Anesthesia: Local
== END 2022-05-17 23:59 | disposition home or self-care (01) ==
LOC: CVS 10:45
PROVIDERS: PCP Family Medicine; Referring Provider Surgery; Visit Provider Surgery
DX: T82.511A Breakdown (mechanical) of surgically created arteriovenous shunt, initial encounter (principal); N18.4 Chronic kidney disease, stage 4 (severe)
CPT/HCPCS: 93931

== ENCOUNTER 2022-05-18 12:50 | Outpatient (CLI) | payer MEDICARE, OTHER, SELFPAY ==
[2020-11-21 14:37] VITALS: BMI 39.9
--- NOTE | 2022-05-18 12:52 | ADUUE_ITS ---
Reason For Study: S/P pseudoaneurysm thrombin injection 05/17/22 LEFT S/P left upper extremity pseudoaneurym thrombin injection 05/17/22. Post injection pseudo measures 2.12 x 3.06 x 4.12 cm, with a neck of 0.20 cm. Blood flow noted within the pseudoaneurysm, Normal fistula flow noted in the left distal graft. Preliminary report given to Katrina Lunsford. /US Art Duplex Unilat UP Extrem Interpretation Summary 2.1 x 3.06 x 4.12 cm left upper arm arteriovenous dialysis fistula pseudoaneury sm There has been partial reestablishment of blood flow within the pseudoaneurysm since yesterday's thrombin injection procedure. There appears to be normal fistula flow. The flow that is reconstituted within the pseudoaneurysm is still less than the start point yest marilyn. Ordering Physician: Steve Lunsford Referring Physician: Masha Treviño M.D. Performed By: Janee Laguna RVT
== END 2022-05-18 23:59 | disposition home or self-care (01) ==
LOC: CVS 12:51
PROVIDERS: PCP Family Medicine; Visit Provider Surgery
DX: T82.511A Breakdown (mechanical) of surgically created arteriovenous shunt, initial encounter (principal); N18.4 Chronic kidney disease, stage 4 (severe)
CPT/HCPCS: 93931

== ENCOUNTER 2022-05-19 08:42 | Outpatient (CLI) | payer MEDICARE, OTHER, SELFPAY ==
[2020-11-21 14:37] VITALS: BMI 39.9
--- NOTE | 2022-05-19 08:45 | PCM.HP.STD ---
[facility] - General General Date of Service: 05/19/22 Chief Complaint: Pseudoaneurysm left upper arm arteriovenous hemodialysis fistula [facility] Narrative HANS GLASS, is a 81 M who presents for continued treatment of her left upper arm pseudoaneurysm related to a brachiocephalic arteriovenous hemodialysis fistula which was injured during dialysis access. On May 17, 2022 I performed an ultrasound-guided thrombin injection. At that time I felt that I cannot complete thrombosis of the pseudoaneurysm however the pseudoaneurysm quite sizable at almost 4 cm. The patient had a follow-up exam of the following day demonstrating reconstitution of flow. 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 mellitus Easy bruising Essential (primary) hypertension Excessive bleeding Former smoker Hernia, umbilical, 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) History of edema History of non-ST elevation myocardial infarction (NSTEMI) (12/31/19) History of renal disease Hyperlipidemia Hyperphosphatemia Hypothyroidism Insulin dependent diabetes mellitus Iron deficiency anemia Ischemic cardiomyopathy Left atrial enlargement Longstanding persistent atrial fibrillation Morbid obesity 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 layer exposed Obstructive sleep apnea On home oxygen therapy Pseudoaneurysm of arteriovenous graft Pulmonary edema (12/30/19) Shortness of breath on exertion Type 2 diabetes mellitus Unsteady gait when walking Home Medications aspirin 81 mg tablet,delayed release 81 mg PO DAILY Check with primary doctor 07/17/15 [History Last Taken 01/06/20 08:00] amiodarone 200 mg tablet 200 mg PO DAILY 03/09/22 [History Last Taken Unknown] atorvastatin 40 mg tablet 40 mg PO QHS 03/09/22 [History Last Taken Unknown] ergocalciferol (vitamin D2) 50 mcg (2,000 unit) capsule 50 mcg PO .2X month 03/09/22 [History Last Taken Unknown] furosemide 40 mg tablet 40 mg PO DAILY Weight Gain 03/09/22 [History Last Taken Unknown] metoprolol succinate 25 mg tablet,extended release 24 hr 25 mg PO DAILY 03/09/22 [History Last Taken Unknown] midodrine 10 mg tablet 10 mg PO BID 03/09/22 [History Last Taken Unknown] sevelamer carbonate 800 mg tablet 800 mg PO TID 03/09/22 [History Last Taken Unknown] tamsulosin 0.4 mg capsule 0.4 mg PO DAILY 03/09/22 [History Last Taken Unknown] apixaban 2.5 mg tablet (Eliquis) 2.5 mg PO BID #180 tabs 05/10/22 [Rx Last Taken Unknown] multivitamin 1 tab PO DAILY 05/13/22 [History Last Taken Unknown] polyethylene glycol 3350 17 gram oral powder packet (Miralax) 17 g PO DAILY 05/13/22 [History Last Taken Unknown] Allergy/AdvReac Type Severity Reaction Status Date / Time Penicillins AdvReac Severe Swelling Verified 04/22/22 15:27 Family History Father , age 79, of embolism CAD (coronary artery disease) Embolism Myocardial infarction Mother , age 74 Kidney disease renal failure Brother Kidney disease Sister Breast cancer Surgical History History of back surgery (01/2019) History of coronary artery stent placement (06/03/15) History of herniorrhaphy (09/2021) History of left heart catheterization (09/14/21) History of total right knee replacement History of total right knee replacement (TKR) S/P arteriovenous (AV) fistula creation Surgically created abdominal mucous fistula (09/2021) Social History household members: none Smoking Status: Former smoker how long ago did patient quit smokin second hand exposure: No alcohol intake: never substance use type: does not use Physical Exam Const alert, oriented x3 and no apparent distress General Appearance: cooperative Resp normal respiratory effort Auscultation: clear to auscultation bilaterally Cardio regular rate Extremity Extremity Narrative: Left upper arm brachiocephalic arteriovenous fistula with pulsatile thrill and bruit. Significant swelling in the mid to proximal upper arm with some slight discoloration. Nontender. Evidence of access sites. Assessment & Plan Assessment/Plan (1) Pseudoaneurysm of arteriovenous graft: PLAN: The patient has reconstituted flow and a very large pseudoaneurysm involving his left upper arm AV fistula. I propose for him a repeat attempt at ultrasound-guided thrombin injection and he is well aware of the technique, benefit, risk, alternatives. He presents to the noninvasive vascular lab ultrasound suite for treatment. Steve Lunsford M.D., F.A.C.S.
--- NOTE | 2022-05-19 08:51 | ADUUE_ITS ---
Reason For Study: Pseudoaneurysm thrombin injection LEFT S/P left upper extremity pseudoaneurym thrombin injection 05/19/22. Post scan done about 1hr after thrombin injection Post injection pseudo measures 2.09 x 3.52 x 4.19 cm. No blood flow noted within the pseudoaneurysm as compared to prior to thrombin injection. Normal fistula flow noted in the left mid-distal graft. VL/US Art Duplex Unilat UP Extrem Interpretation Summary Post ultrasound-guided thrombin injection of pseudoaneurysm left upper arm brac hiocephalic arteriovenous hemodialysis fistula. Pseudoaneurysm measures 2.09 x 3.52 x 4.19 cm. There is no current flow noted w ithin the pseudoaneurysm. There is felt to be normal fistula flow in the mid to distal fi stula. Ordering Physician: Nataly Villagomez Referring Physician: Masha Treviño M.D. Performed By: Janee Laguna RVT
--- NOTE | 2022-05-19 09:39 | OP.PCM_ITS ---
Report of Operation Date of Procedure: 05/19/22 Pre-Operative Diagnosis: Pseudoaneurysm left upper arm brachial to cephalic art eriovenous predialysis fistula Post-Operative Diagnosis: Same Surgery/Procedure Performed:: Ultrasound-guided thrombin injection left upper arm pseudoaneurysm Description of Surgical Findings:: Timeout informed consent was obtained. The patient was taken to the noninvasive vascular lab and the left upper arm was prepped with chlorhexidine. Imaging demonstrated that a portion of the pseudoaneurysm which was treated 2 days prior with thrombin injection had reestablished flow. I selected this spot that would gain access closer to the defect in the vein. 1% lidocaine was used as a local anesthetic. 1/2 cc was used. Then I inserted a 25-gauge needle under ultrasound guidance and thrombin 5000 units/cc was selected it was carefully and very slowly injected until I had reached institution of complete thrombosis of the pseudoaneurysm. I reposition the needle and injected a very small amount closer to the neck of the pseudoaneurysm to assure complete occlusion at that area. Further inspection failed to reveal any flow within the pseudoaneurysm. He tolerated the procedure well. The fistula still was patent. There was a pulse thrill and bruit. The patient will now be observed for an hour with repeat duplex imaging Repeat imaging also scheduled for tomorrow. Steve Lunsford M.D., F.A.C.S. Surgeon: Steve Lunsford
== END 2022-05-19 23:59 | disposition home or self-care (01) ==
LOC: CVS 08:43
PROVIDERS: PCP Family Medicine; Visit Provider Surgery
DX: T82.510A Breakdown (mechanical) of surgically created arteriovenous fistula, initial encounter (principal)
CPT/HCPCS: 93931

== ENCOUNTER 2022-05-20 10:00 | Outpatient (RCR) | payer MEDICARE, OTHER, SELFPAY ==
[2020-11-21 14:37] VITALS: BMI 39.9
[2022-05-13 10:07] VITALS: BP 126/71; PULSE 129; TEMP 35.7
--- NOTE | 2022-05-13 10:11 | PCM.WC.HP ---
History of Present Illness Date of Service: 05/13/22 Chief Complaint: Right leg venous ulceration History of Wound: This 81-year-old male presents to the wound care center with a left hallux wound secondary to traumatic injury with his walker. 3 weeks ago he smashed his left hallux with his walker removing the toenail. He was unaware of the injury secondary to diabetes with peripheral polyneuropathy until he was in bed and noticed the blood. He has been applying Neosporin and dry dressings to the site and then switched to Lala from his previous wound visits and then again return to Neosporin and dressings. He did see his primary care and was placed on 10-day course of doxycycline 100 mg twice daily. He has finished this oral antibiotic. He does state improvement in the wound site. Left hallux demonstrates dry stable eschar secondary from coagulated blood. He was referred to the wound care center for continued management of the wound. [facility] Medical History Acute combined systolic (congestive) and diastolic (congestive) heart failure Acute respiratory failure with hypoxia and hypercapnia (12/30/19) Ambulates with cane Atherosclerotic heart disease of [place] coronary artery without angina pectoris Axillary adenopathy Chronic combined systolic and diastolic CHF (congestive heart failure) Chronic renal failure, stage 4 (severe) CPAP (continuous positive airway pressure) dependence Diabetic neuropathy associated with type 2 diabetes mellitus Easy bruising Essential (primary) hypertension Excessive bleeding Former smoker Hernia, umbilical, 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) History of edema History of non-ST elevation myocardial infarction (NSTEMI) (12/31/19) History of renal disease Hyperlipidemia Hyperphosphatemia Hypothyroidism Insulin dependent diabetes mellitus Iron deficiency anemia Ischemic cardiomyopathy Left atrial enlargement Longstanding persistent atrial fibrillation Morbid obesity 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 layer exposed Obstructive sleep apnea On home oxygen therapy Pseudoaneurysm of arteriovenous graft Pulmonary edema (12/30/19) Shortness of breath on exertion Type 2 diabetes mellitus Unsteady gait when walking Home Medications aspirin 81 mg tablet,delayed release 81 mg PO DAILY Check with primary doctor 07/17/15 [History Last Taken 01/06/20 08:00] amiodarone 200 mg tablet 200 mg PO DAILY 03/09/22 [History Last Taken Unknown] atorvastatin 40 mg tablet 40 mg PO QHS 03/09/22 [History Last Taken Unknown] ergocalciferol (vitamin D2) 50 mcg (2,000 unit) capsule 50 mcg PO .2X month 03/09/22 [History Last Taken Unknown] furosemide 40 mg tablet 40 mg PO DAILY Weight Gain 03/09/22 [History Last Taken Unknown] metoprolol succinate 25 mg tablet,extended release 24 hr 25 mg PO DAILY 03/09/22 [History Last Taken Unknown] midodrine 10 mg tablet 10 mg PO BID 03/09/22 [History Last Taken Unknown] sevelamer carbonate 800 mg tablet 800 mg PO TID 03/09/22 [History Last Taken Unknown] tamsulosin 0.4 mg capsule 0.4 mg PO DAILY 03/09/22 [History Last Taken Unknown] apixaban 2.5 mg tablet (Eliquis) 2.5 mg PO BID #180 tabs 05/10/22 [Rx Last Taken Unknown] multivitamin 1 tab PO DAILY 05/13/22 [History Last Taken Unknown] polyethylene glycol 3350 17 gram oral powder packet (Miralax) 17 g PO DAILY 05/13/22 [History Last Taken Unknown] Allergy/AdvReac Type Severity Reaction Status Date / Time Penicillins AdvReac Severe Swelling Verified 04/22/22 15:27 Family History Father , age 79, of embolism CAD (coronary artery disease) Embolism Myocardial infarction Mother , age 74 Kidney disease renal failure Brother Kidney disease Sister Breast cancer Surgical History History of back surgery (01/2019) History of coronary artery stent placement (06/03/15) History of herniorrhaphy (09/2021) History of left heart catheterization (09/14/21) History of total right knee replacement History of total right knee replacement (TKR) S/P arteriovenous (AV) fistula creation Surgically created abdominal mucous fistula (09/2021) Social History household members: none Smoking Status: Former smoker how long ago did patient quit smokin second hand exposure: No alcohol intake: never substance use type: does not use ROS Constitutional Constitutional: Denies chills, fatigue or fever(s) Eyes Eyes: Denies double vision or dry eyes ENT HEENT: Denies nasal congestion, nasal discharge or sore throat Cardiovascular Cardiovascular: Denies chest pain, dyspnea or edema Respiratory/Chest Respiratory/Chest: Denies cough, shortness of breath with exertion or wheezing Gastrointestinal Gastrointestinal: Denies abdominal pain, constipation, diarrhea, nausea or vomiting Genitourinary Genitourinary: Denies dysuria or hematuria Musculoskeletal Musculoskeletal: Denies extremity pain, joint pain, joint stiffness or joint swelling Integumentary Integumentary: Denies erythema, pruritus or rash Neurologic Neurologic: Denies confusion, dizziness or headache(s) Endocrine Endocrinology: Denies cold intolerance, heat intolerance or polyuria Hematologic/Lymphatic Hematologic/Lymphatic: Denies easy bleeding or easy bruising Physical Exam Const alert, oriented x3 and no apparent distress General Appearance: cooperative HEENT normocephalic Eyes General Eye: normal appearance of both eyes Neck General: normal visual inspection Lymph Lymphatic: no lymphadenopathy noted and no lymphedema noted Resp normal respiratory effort Cardio regular rate and regular rhythm Extremity normal capillary refill, no joint enlargement and no pedal edema Extremity Narrative: Left and right lower extremity: DP pulses palpable 2 out of 4. Posterior tibial pulse dopplerable bilaterally. CFT less than 5 seconds to the digits. Hemosiderin deposition noted to bilateral lower extremity. No lower extremity/pedal edema noted bilateral. Hair growth absent to the digits. Skin is shiny and taut consistent with microvascular disease. Musculoskeletal: Muscular strength 5/5 and age-appropriate. No gross deformity is noted. Negative Homans' sign, negative Luna sign bilateral lower extremity. Skin no rashes or lesions noted, skin turgor normal and no jaundice Wound Narrative: Left hallux noted to have 2 wounds. Dorsal hallux wound proximal to the nail bed demonstrates superficial abrasion with some slight fibrotic tissue to the wound bed. No signs of infection. Distal hallux wound noted secondary to trauma via walker demonstrates granular bed with central area of eschar well adhered to the tissue. This area is close to the bone of the distal phalanx at the most dorsal aspect of the wound secondary to the toenail being removed due to the trauma. No purulent drainage, no malodor, no visual abscess, no palpable fluctuance/bogginess noted to the left hallux. Neuro moves all extremities Neuro Narrative: Decreased light and protective sensation secondary to diabetes with peripheral polyneuropathy to bilateral foot reestablished at the mid tibia. Debridement Note Debridement Note Wound debrided: Left hallux x2 Laterality: Left Wound Grade/Stage: Mccormick stage I Type of Debridement: Excisional debridement Anesthesia Used: 5% Lidocaine Gel Depth: Down to and including healthy tissue and in the subcutaneous layer Percentage of wound debrided: 100 Instrument Used: 3mm curette Tissue Removed: Fibrous, devitalized subcutaneous, biofilm, slough Severity: Fat Layer Exposed Amount of bleeding with debridement: Mild Bleeding Controlled with: Compression and gauze Patient tolerated procedure: Patient tolerated procedure well Assessment/Plan Assessment/Plan (1) Diabetic neuropathy associated with type 2 diabetes mellitus: CODE(S): E11.40 - Type 2 diabetes mellitus with diabetic neuropathy, unspecified QUALIFIERS: Diabetes mellitus complication detail: diabetic polyneuropathy Qualified Code(s): E11.42 - Type 2 diabetes mellitus with diabetic polyneuropathy (2) Hypothyroidism: CODE(S): E03.9 - Hypothyroidism, unspecified (3) Chronic renal failure, stage 4 (severe): CODE(S): N18.4 - Chronic kidney disease, stage 4 (severe) (4) Essential (primary) hypertension: CODE(S): I10 - Essential (primary) hypertension (5) Non-pressure chronic ulcer of other part of left foot with fat layer exposed: CODE(S): L97.522 - Non-pressure chronic ulcer of other part of left foot with fat layer exposed (6) Peripheral vascular disease, unspecified: CODE(S): I73.9 - Peripheral vascular disease, unspecified PLAN: Plan Patient seen and evaluated Ulceration x2 to the left hallux underwent debridement as noted in the clinical panel above. During debridement as noted eschar at the central distal tip of the hallux is well adhered. No signs of infection noted. Ulceration dorsal hallux measures 0.7 cm x 1.2 cm x 0.1 cm and the ulceration distal hallux measures 1.8 cm x 2 cm x 0.1 cm. Hydrogel applied to wound sites and dressed with dry sterile dressing. Rx Santyl. Discussed applying Santyl topically to the distal hallux wound daily for eschar debridement. As Santyl continues to aid in debridement of the site when applicable I will seek approval of advanced wound care product for application to the left hallux. Discussed continued application of his compression stockings to aid in edema control. He may elevate lower extremity at times of rest. He is to continue to wear his diabetic shoes with offloading inserts and was instructed to not go barefoot about his house, this includes wearing socks only. He was educated on proper daily foot checks given his diabetic status with peripheral polyneuropathy. I discussed that given the wound location with traumatic removal of his toenail that the site is close to the bone. I discussed continued importance of follow-up to observe for signs of infection and healing progression. I did order radiographs today 05/13/2022 to observe for any signs of osteomyelitis. He did recently finish 10-day course of oral doxycycline 100 mg twice daily. I discussed the signs and symptoms to observe for pertaining to infection. He and his were instructed that if the toe turns red about the wound with redness moving up the foot towards the leg, if the wound demonstrates increased foul odor, any purulent drainage, or if he experiences fever greater than 101 degrees or any signs of nausea/vomiting that he is to report straight to the ED as these are progressing signs of infection. He and his both voiced understanding of this today. The following work up and care recommendations were made: Dressing: Santyl dry sterile dressing Wash: May wash with soap and water, pat the area dry Tissue growth optimization: Santyl Offload: Ensure toe does not rub in the top of the shoe and to keep dressing in place to prevent excess irritation Vascular: History of peripheral vascular disease with revascularization. Currently DP pulses are palpable with PT pulses dopplerable and adequate capillary fill time. Edema: Continue compression stockings for edema control, continue dialysis Infection: No local signs of infection Pain: None, may take Tylenol as needed Host factors: DM type II with peripheral polyneuropathy, peripheral vascular disease I answered all the patient's questions. To return to the wound healing center in 1 week or call sooner if the patient has any questions or concerns. Note: [employer] speech recognition lumpia wrapper maker software was used to create portions of this document. Sound-alike and misspelled words, as well as other lumpia wrapper maker errors may be contained in the documentation. The problems addressed require a low medical decision making level which includes two or more minor problems, a stable chronic illness, or an acute uncomplicated illness or injury. The medical decision making level is low. There is noted low risk of morbidity after considering this treatment plan and diagnostic data.
--- NOTE | 2022-05-13 11:27 | RAD_ITS ---
EXAM: XR LEFT TOES, 2 OR MORE VIEWS CLINICAL INDICATION: WOUND TECHNIQUE: Frontal, lateral and oblique views of the toes of the left foot. This report was created using [employer] report generation technology. COMPARISON: None. FINDINGS: BONES/JOINTS: Unremarkable. No acute fracture. No dislocation. SOFT TISSUES: Unremarkable. No radiopaque foreign body. VASCULATURE: There are atherosclerotic vascular calcifications. RAD/Toe(s) Min 2 Views IMPRESSION: No acute findings in the visualized toes of the left foot. Electronically Signed: Pierre Carrion MD at 17:44 EST ,
[2022-05-20 07:54] VITALS: BP 124/69; PULSE 109; TEMP 36.2
== END 2022-05-25 23:59 | disposition home or self-care (01) ==
LOC: WC 10:00
PROVIDERS: PCP Family Medicine; Visit Provider Student in an Organized Health Care Education/Training Program
DX: E11.621 Type 2 diabetes mellitus with foot ulcer (principal); E11.51 Type 2 diabetes mellitus with diabetic peripheral angiopathy without gangrene; L97.522 Non-pressure chronic ulcer of other part of left foot with fat layer exposed; I50.42 Chronic combined systolic (congestive) and diastolic (congestive) heart failure; I13.0 Hypertensive heart and chronic kidney disease with heart failure and stage 1 through stage 4 chronic kidney disease, or unspecified chronic kidney disease; E11.22 Type 2 diabetes mellitus with diabetic chronic kidney disease; E11.42 Type 2 diabetes mellitus with diabetic polyneuropathy; N18.4 Chronic kidney disease, stage 4 (severe); I25.5 Ischemic cardiomyopathy; E03.9 Hypothyroidism, unspecified; Z79.82 Long term (current) use of aspirin; I25.10 Atherosclerotic heart disease of native coronary artery without angina pectoris; E78.5 Hyperlipidemia, unspecified; Z87.891 Personal history of nicotine dependence
CPT/HCPCS: 11042; 73660; 99213; G0463

== ENCOUNTER → 2022-05-20 | Outpatient (CLI) | payer MEDICARE, OTHER, SELFPAY ==
[2020-11-21 14:37] VITALS: BMI 39.9
--- NOTE | 2022-05-20 13:54 | ADUUE_ITS ---
Reason For Study: Pseudoaneurysm thrombin injection LEFT S/P left upper extremity pseudoaneurym thrombin injection 05/19/22. Post injection pseudo measures 1.95 x 3.38 x 4.2 cm. No blood flow noted within the pseudoaneurysm, no neck visualized Normal fistula flow noted in the left mid-distal graft. Preliminary report given to Mildred CAZARES. /US Art Duplex Unilat UP Extrem Interpretation Summary The current pseudoaneurysm images left upper arm emanating from a brachiocephal ic created. This hemodialysis fistula remains thrombosed and consistent with the postprocedural images of yesterday. The upper arm brachiocephalic arteriovenous fistula remains patent. Ordering Physician: Nataly Villagomez Referring Physician: Masha Treviño M.D. Performed By: Janee Laguna RVT
== END | disposition home or self-care (01) ==
PROVIDERS: PCP Family Medicine; Referring Provider Surgery; Visit Provider Surgery
DX: Z00.00 Encounter for general adult medical examination without abnormal findings (principal)
CPT/HCPCS: 93931

== ENCOUNTER 2022-05-23 17:46 | Inpatient (IN) | payer MEDICARE, OTHER, SELFPAY ==
[2020-11-21 14:37] VITALS: BMI 39.9
[2022-05-23] VITALS (8 sets, daily range): BP systolic 88–102; BP diastolic 46–55; PULSE 84–94; RESP 18–24; TEMP 36.5–37.7; O2SAT 90–100; BMI 32.4; BMI 32.7
--- NOTE | 2022-05-23 18:38 | EKG12_ITS ---
Test Reason : WEAKNESS Blood Pressure : / mmHG Vent. Rate : 088 BPM Atrial Rate : 000 BPM P-R Int : 000 ms QRS Dur : 100 ms QT Int : 368 ms P-R-T Axes : 000 -11 114 degrees QTc Int : 445 ms Atrial fibrillation Inferior infarct , age undetermined Anterolateral infarct , age undetermined Abnormal ECG Confirmed by PABLO GOMEZ, TATY ([id number]), department editor KIMMY SAWYER ([id number]) on 05/24/2022 10:18:14 AM Referred By: Confirmed By:TATY SHAH MD
--- NOTE | 2022-05-23 18:39 | EDS_ITS ---
HPI History of Present Illness Chief Complaint: Weakness Detail of Chief Complaint: Generalized weakness Informant: patient and spouse/S.O. Narrative Narrative: Patient presents the emergency department complaint of generalized weakness for last for 5 days. Patient states that he is had a couple of procedures on his dialysis fistula on his left arm for a pseudoaneurysm performed by Dr. Steve Lunsford this week. Patient states that he fell off the toilet about 4 days ago but did not injure himself and then last night he slid out of bed but his could not get him back up so they called EMS to help him up again had no significant injury. He denies striking his head. Patient denies feeling lightheaded or dizzy. Patient states he has no energy. His last dialysis was 2 days ago. Patient normally has low blood pressure and is on midodrine. Patient denies fever. He denies chest pain. Denies abdominal pain. Denies recent illness otherwise. [facility] Medical History (Updated 05/23/22 @ 20:[address] Nazanin Wilson, ) Acute combined systolic (congestive) and diastolic (congestive) heart failure Acute respiratory failure with hypoxia and hypercapnia (12/30/19) Ambulates with cane Atherosclerotic heart disease of [place] coronary artery without angina pectoris Axillary adenopathy Chronic combined systolic and diastolic CHF (congestive heart failure) Chronic renal failure, stage 4 (severe) CPAP (continuous positive airway pressure) dependence Diabetic neuropathy associated with type 2 diabetes mellitus Easy bruising Essential (primary) hypertension Excessive bleeding Former smoker Hernia, umbilical, 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) History of edema History of non-ST elevation myocardial infarction (NSTEMI) (12/31/19) History of renal disease Hyperlipidemia Hyperphosphatemia Hypothyroidism Insulin dependent diabetes mellitus Iron deficiency anemia Ischemic cardiomyopathy Left atrial enlargement Longstanding persistent atrial fibrillation Morbid obesity 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 layer exposed Obstructive sleep apnea On home oxygen therapy Pseudoaneurysm of arteriovenous graft Pulmonary edema (12/30/19) Shortness of breath on exertion Type 2 diabetes mellitus Unsteady gait when walking Home Medications aspirin 81 mg tablet,delayed release 81 mg PO DAILY Check with primary doctor 07/17/15 [History Last Taken 01/06/20 08:00] amiodarone 200 mg tablet 200 mg PO DAILY 03/09/22 [History Last Taken Unknown] atorvastatin 40 mg tablet 40 mg PO QHS 03/09/22 [History Last Taken Unknown] ergocalciferol (vitamin D2) 50 mcg (2,000 unit) capsule 50 mcg PO .2X month 03/09/22 [History Last Taken Unknown] furosemide 40 mg tablet 40 mg PO DAILY Weight Gain 03/09/22 [History Last Taken Unknown] metoprolol succinate 25 mg tablet,extended release 24 hr 25 mg PO DAILY 03/09/22 [History Last Taken Unknown] midodrine 10 mg tablet 10 mg PO DAILY 03/09/22 [History Last Taken Unknown] sevelamer carbonate 800 mg tablet 800 mg PO TID 03/09/22 [History Last Taken Unknown] tamsulosin 0.4 mg capsule 0.4 mg PO DAILY 03/09/22 [History Last Taken Unknown] apixaban 2.5 mg tablet (Eliquis) 2.5 mg PO BID #180 tabs 05/10/22 [Rx Last Taken Unknown] multivitamin 1 tab PO DAILY 05/13/22 [History Last Taken Unknown] polyethylene glycol 3350 17 gram oral powder packet (Miralax) 17 g PO DAILY 05/13/22 [History Last Taken Unknown] Allergy/AdvReac Type Severity Reaction Status Date / Time Penicillins AdvReac Severe Swelling Verified 05/23/22 17:54 Family History Father , age 79, of embolism CAD (coronary artery disease) Embolism Myocardial infarction Mother , age 74 Kidney disease renal failure Brother Kidney disease Sister Breast cancer Surgical History History of back surgery (01/2019) History of coronary artery stent placement (06/03/15) History of herniorrhaphy (09/2021) History of left heart catheterization (09/14/21) History of total right knee replacement History of total right knee replacement (TKR) S/P arteriovenous (AV) fistula creation Surgically created abdominal mucous fistula (09/2021) Social History household members: none Smoking Status: Former smoker how long ago did patient quit smokin second hand exposure: No alcohol intake: never substance use type: does not use ROS ROS ED Review of Systems ROS Unobtainable: other Constitutional Constitutional ED: Reports lethargy; Denies chills, fever(s), sweats or weight loss Eyes Eyes: Denies blurry vision, change in vision or diplopia ENT ENT ED: Denies rhinorrhea or sore throat Cardiovascular Cardiovascular: Reports chest pain and racing heartbeat; Denies orthopnea Respiratory/Chest Respiratory/Chest: Denies cough, dyspnea, dyspnea on exertion, orthopnea or sputum Gastrointestinal Gastrointestinal: Reports diarrhea; Denies abdominal pain, nausea or vomiting Genitourinary Genitourinary ED: Denies dysuria, hematuria or urinary frequency Musculoskeletal Musculoskeletal: Denies arthralgias, back pain, myalgias or neck pain Integumentary Denies abscess, Abrasions or rash Neurologic Neurologic: Reports weakness; Denies headache(s) Psychiatric Psychiatric: Denies anxiety, depression or suicidal thoughts Endocrine Endocrinology: Denies polydipsia, polyphagia or polyuria Hematologic/Lymphatic Hematologic/Lymphatic: Denies easy bleeding, easy bruising or lymphadenopathy Allergic/Immunologic Allergic/Immunologic ED: Denies mouth swelling, tongue swelling or urticaria EXAM Physical Exam Const Vital Signs: 05/23/22 17:51 05/23/22 17:58 05/23/22 19:05 Temperature 99 F Temperature Source Oral Pulse Rate 94 89 Respiratory Rate 18 24 H Respiratory Effort Normal Respiratory Pattern Tachypnea Blood Pressure 102/55 L 93/49 L Blood Pressure Mean 70 63 Pulse Ox 98 100 Oxygen Delivery Method Room Air Room Air 05/23/22 20:02 05/23/22 20:39 Temperature Temperature Source Pulse Rate 84 90 Respiratory Rate 24 H Respiratory Effort Respiratory Pattern Blood Pressure 88/46 L 93/53 L Blood Pressure Mean 60 66 Pulse Ox 90 100 Oxygen Delivery Method Positive well nourished and well developed General Appearance ED: well developed and NAD HEENT Reports TM's clear and moist mucous membranes normocephalic and atraumatic; Negative for trauma or tenderness Tympanic Membrane ED: Yes TM's clear Eyes PERRL and EOMs intact bilaterally General Eye ED: Negative for pale conjunctiva or scleral icterus Neck no lymphadenopathy, supple and no JVD General: Negative for tenderness Chest Wall inspection of chest normal and palpation of chest normal Chest: Negative for tenderness Resp normal respiratory effort and clear to auscultation bilaterally Effort and Inspection: Negative for respiratory distress or pain with movement Auscultation: Negative for rhonchi, wheezes or diminished lung sounds Cardio regular rate, regular rhythm, S1 normal heart sound, S2 normal heart sound and no murmurs Peripheral Pulses: pulses 2+ throughout GI normal to inspection, nondistended, normoactive bowel sounds, soft to palpation, non-tender, non-distended and no masses Back/Spine no CVA tenderness and no thoracic nor lumbar tenderness Extremity normal to inspection Extremity Narrative: BlackRight foot-patient has a wound to the right great toe tip which appears to be eschar. No signs of infection such as erythema or warmth. This wound is cur rently being followed by the wound center. General Extremety ED: Negative for edema General Extremity: Negative for edema Neuro oriented x3, CN's II-XII intact bilaterally, no sensory deficits noted and gait normal Sensorium / Orientation: awake, alert, oriented to person, oriented to place and oriented to time Motor Exam: strength 5/5 throughout and strength abnormal Psych mental status grossly normal Skin no rashes or lesions noted and no wounds MDM MDM MDM Narrative Medical decision making narrative: Presents with generalized weakness and hypotension which is chronic and patient is on midodrine. Etiology of his generalized weakness was unclear but entertained in the differential cardiac etiology versus infectious etiology. Patient had an elevated white count of 18.2 hemoglobin was 11 and platelet count 164. Chemistry shows low sodium of 128 and a potassium of 4.7. Chloride was 85. BUN was 83 and creatinine 7.19. Glucose was 262. Lactate was elevated 3.1 and his troponin was elevated 1589. EKG obtained on arrival showed atrial fibrillation with a ventricular rate of 88 bpm with old septal infarct. Chest x-ray on my interpretation showed chronic interstitial increased markings however radiology had questionable retrocardiac infiltrate. Clinically patient has not had a cough or fever therefore my suspicion for pneumonia is low. Patient does have history of coronary artery disease and I am concerned about a non-ST elevation CO. Patient already on Eliquis. Case will be discussed with hospitalist to evaluate patient for admission. After discussing case with hospitalist will start patient empirically on Rocephin and Zithromax to cover for possible pneumonia as no clear etiology for his elevated white count and elevated lactate. Lab Data Attestation: I reviewed the patient's lab results. Labs: Laboratory Results - last 24 hr 05/23/22 05/23/22 05/23/22 18:16 18:16 18:16 WBC 18.2 H RBC 3.57 L Hgb 11.1 L Hct 34.4 L MCV 96.4 H MCH 31.1 MCHC 32.3 RDW Std Deviation 55.3 H RDW Coeff of Moni 15.6 H Plt Count 164 MPV 10.1 Immature Gran % (Auto) 1.000 H Neut % (Auto) 90.3 H Lymph % (Auto) 2.4 L Wise % (Auto) 6.0 Eos % (Auto) 0.1 Baso % (Auto) 0.2 Absolute Neuts (auto) 16.4 H Absolute Lymphs (auto) 0.43 L Nucleated RBC % 0 Differential Comment Sodium 128 L Potassium 4.7 Chloride 85 L Carbon Dioxide 27.0 Anion Gap 16 H BUN 83 H Creatinine 7.19 H Estim Creat Clear Calc 8.06 Est GFR (MDRD) Af Amer 10 L Est GFR (MDRD) Non-Af 8 L BUN/Creatinine Ratio 11.5 Glucose 262 H Lactic Acid 3.1 H* Calcium 10.3 H Troponin I High Sens 1589 H* Radiography Diagnostic Testing: Clinical Impression(s) from Imaging Studies Chest X-Ray 05/23/22 18:52 IMPRESSION: 1. Question retrocardiac left lower lobe pneumonia. 2. Cardiomegaly. 3. Degenerative changes as above Electronically Signed: Carl Lantigua DO at 19:13 EST Reading Location ID and State: [address] [place] [address] Tel [phone], Service support , EKG Initial EKG: Attestation: I personally reviewed and interpreted this EKG as follows: Comments: Atrial fibrillation with a rate of 88 bpm with old anterior and inferior infarct. Prior EKG tracings: available for review Prior: Unchanged Discharge Plan Dx/Rx/DC Orders Clinical Impression: Non-ST elevated myocardial infarction, Chronic renal failure, Leukocytosis, Hypotension Disposition Disposition: Acute Care Hospital [facility]
--- NOTE | 2022-05-23 18:52 | RAD_ITS ---
STUDY: X-RAY CHEST REASON FOR EXAM: Male, 81 years old. Weakness for one week. Multiple falls. History of cardiac catheterization with stent placement CHF. TECHNIQUE: Single AP portable view of the chest. COMPARISON: January 11, 2021. FINDINGS: Lungs are hypoexpanded. Question retrocardiac medial left lower lobe infiltrate. There is no demonstrated pleural abnormality. Stable cardiomegaly. Normal mediastinum and radu. Normal visualized pulmonary arteries. There is atherosclerotic calcification of the aortic arch with tortuosity. There are diffuse degenerative changes of the visualized thoracic spine. There is degenerative osteoarthritis of the bilateral shoulders. There is no demonstrated abnormality of the visualized soft tissue structures of the upper abdomen. RAD/Chest 1 View (Portable) IMPRESSION: 1. Question retrocardiac left lower lobe pneumonia. 2. Cardiomegaly. 3. Degenerative changes as above Electronically Signed: Carl Lantigua DO at 19:13 EST ,
[2022-05-23 18:53] LABS: Absolute Lymphocyte Count 0.43 X10^3/uL (0.83-4.51); Absolute Neutrophil Count 16.4 X10^3/uL (2.0-7.7); Basophil# 0.03 X10^3/uL; Basophil% 0.2 % (0-1); Eosinophil# 0.02 X10^3/uL; Eosinophils% 0.1 % (0-5); Hematocrit 34.4 % (40-54); Hemoglobin 11.1 g/dL (13.0-16.5); Lymphocyte # 0.43 X10^3/ul (0.83-4.51); Lymphocyte % 2.4 % (19-41); Mean Corp Hgb Conc 32.3 g/dL (32-36); Mean Corpuscular Hgb 31.1 pg (27.0-32.0); Mean Corpuscular Volume 96.4 fL (80-94); Mean Platelet Vol. 10.1 fl (6.2-12.0); Monocyte# 1.09 X10^3/uL; NRBC Flagged by Analyzer 0 % (0-5); Neutrophil # 16.43 X10^3/uL (2.7-7.7); Neutrophil % 90.3 % (47-70); POSITIVE DIFFERENTIAL YES; Platelet Count 164 K/mm3 (150-450); RBC Distribution Width CV 15.6 % (11.6-14.6); RBC Distribution Width SD 55.3 fl (35.1-43.9); Red Blood Count 3.57 M/mm3 (4.6-6.2); White Blood Count 18.2 K/mm3 (4.4-11.0)
[2022-05-23 18:54] LABS: Differential Indicated SCAN CRITERIA MET
[2022-05-23] MEDS: 0.9% Normal Saline 1,000 ML 15 ML IV (19:13)
[2022-05-23 19:20] LABS: Anion Gap 16 (5-15); BUN 83 mg/dL (7-18); BUN/Creat Ratio 11.5 RATIO (10-20); Calcium,Total 10.3 mg/dL (8.5-10.1); Chloride 85 mmol/L (98-107); Creatinine, Serum 7.19 mg/dL (0.70-1.30); EST Glomerular Filtration Rate 8 mL/min (>60); Est Glom Filt Rate - Afr Amer 10 mL/min (>60); Estimated Creatinine Clearance 8.06 ml/min; Glucose 262 mg/dL (74-106); Potassium 4.7 mmol/L (3.5-5.1); Sodium Level 128 mmol/L (136-145); Troponin-I HS 1589 pg/mL (3.0-78.0)
[2022-05-23 19:21] LABS: Lactic Acid 3.1 mmol/L (0.4-1.9)
--- NOTE | 2022-05-23 20:39 | PCM.HP.STD ---
HPI - General General Date of Admission: 05/23/22 Date of Service: 05/23/22 Chief Complaint: Weakness, debility, falls. HPI Narrative The patient is a 81 y/o M w/ PMHx: Chronic combined Diastolic/Systolic CHF/Ischemic cardiomyopathy, HTN, HLD, ANKIT on CPAP, CAD, Diabetes mellitus type II with neuropathy, ESRD on HD, Hypothyroidism, Former tobacco use, Chronic AF, CAD s/p PCI who presents to the [facility] ED on 05/23/22 with history of persistent generalized weakness x5 days with recent intervention on his left upper extremity secondary to pseudoaneurysm by Dr. Lunsford with associated fall ~ 4 days prior off the toilet without injury and on evening prior to presentation slid out of bed and unable to get back up with EMS call at that time without no LOC or head trauma nor lightheadedness/dizziness associated with most recent HD 2 days prior nor any chest pain. He denies any recent illness including no cough, no dyspnea, no fever or chills especially given CXR findings. He does report some R upper back pain that has been there since his procedure secondary to positioning. Work-up in the ED included T 99, heart rate 94, BP 102/55 initially with most recent repeat 88/46, respiratory rate 18, 98% on room air, CBC with WBC 18.2, hemoglobin 11.1, MCV 96.4, platelet 164 with left shift and lymphopenia, BMP with sodium 128, chloride 85, anion gap 16, BUN/creatinine 83/7.19, glucose 262, lactic acid 3.1, calcium 10.3, troponin 1589, chest x-ray with questionable retrocardiac left lower lobe pneumonia, EKG wtih Atrial fibrillation with a rate of 88 bpm with old anterior and inferior infarct, blood Cx x 2. Patient is chronically on eliquis. Patient does not make marked urine. He normally has low BPs in the 70-90 systolic and is on midodrine. [facility] Medical History (Updated 05/24/22 @ 02:[address] Cristy Jaffe MD) Acute combined systolic (congestive) and diastolic (congestive) heart failure Acute respiratory failure with hypoxia and hypercapnia (12/30/19) Ambulates with cane Atherosclerotic heart disease of [place] coronary artery without angina pectoris Axillary adenopathy Chronic combined systolic and diastolic CHF (congestive heart failure) Chronic renal failure, stage 4 (severe) CPAP (continuous positive airway pressure) dependence Diabetic neuropathy associated with type 2 diabetes mellitus Easy bruising Essential (primary) hypertension Excessive bleeding Former smoker Hernia, umbilical, 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) History of edema History of non-ST elevation myocardial infarction (NSTEMI) (12/31/19) History of renal disease Hyperlipidemia Hyperphosphatemia Hypothyroidism Insulin dependent diabetes mellitus Iron deficiency anemia Ischemic cardiomyopathy Left atrial enlargement Longstanding persistent atrial fibrillation Morbid obesity 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 layer exposed Obstructive sleep apnea On home oxygen therapy Pseudoaneurysm of arteriovenous graft Pulmonary edema (12/30/19) Shortness of breath on exertion Type 2 diabetes mellitus Unsteady gait when walking Home Medications aspirin 81 mg tablet,delayed release 81 mg PO DAILY Check with primary doctor 07/17/15 [History Last Taken 01/06/20 08:00] amiodarone 200 mg tablet 200 mg PO DAILY 03/09/22 [History Last Taken Unknown] atorvastatin 40 mg tablet 40 mg PO QHS 03/09/22 [History Last Taken Unknown] ergocalciferol (vitamin D2) 50 mcg (2,000 unit) capsule 50 mcg PO .2X month 03/09/22 [History Last Taken Unknown] furosemide 40 mg tablet 40 mg PO DAILY Weight Gain 03/09/22 [History Last Taken Unknown] metoprolol succinate 25 mg tablet,extended release 24 hr 25 mg PO DAILY 03/09/22 [History Last Taken Unknown] midodrine 10 mg tablet 10 mg PO DAILY 03/09/22 [History Last Taken Unknown] sevelamer carbonate 800 mg tablet 1,600 mg PO TID supplement 03/09/22 [History Last Taken Unknown] tamsulosin 0.4 mg capsule 0.4 mg PO DAILY 03/09/22 [History Last Taken Unknown] apixaban 2.5 mg tablet (Eliquis) 2.5 mg PO BID #180 tabs 05/10/22 [Rx Last Taken Unknown] multivitamin 1 tab PO DAILY 05/13/22 [History Last Taken Unknown] polyethylene glycol 3350 17 gram oral powder packet (Miralax) 17 g PO DAILY 05/13/22 [History Last Taken Unknown] midodrine 10 mg tablet 10 mg PO MOWEFR BP 05/24/22 [History Last Taken Unknown] Allergy/AdvReac Type Severity Reaction Status Date / Time Penicillins AdvReac Severe Swelling Verified 05/23/22 17:54 Family History Father , age 79, of embolism CAD (coronary artery disease) Embolism Myocardial infarction Mother , age 74 Kidney disease renal failure Brother Kidney disease Sister Breast cancer Surgical History History of back surgery (01/2019) History of coronary artery stent placement (06/03/15) History of herniorrhaphy (09/2021) History of left heart catheterization (09/14/21) History of total right knee replacement History of total right knee replacement (TKR) S/P arteriovenous (AV) fistula creation Surgically created abdominal mucous fistula (09/2021) Social History household members: none Smoking Status: Former smoker how long ago did patient quit smokin second hand exposure: No alcohol intake: never substance use type: does not use ROS ROS Narrative Admission Review of Systems: CONSTITUTIONAL: No weight loss, fever, chills, + weakness or fatigue. HEENT: Eyes: No visual loss, blurred vision, double vision or yellow sclerae. Ears, Nose, Throat: No hearing loss, sneezing, congestion, runny nose or sore throat. SKIN: + Notable bilateral lower extremity venous stasis skin changes as well as left great toe diabetic foot wound with no drainage or marked erythema. CARDIOVASCULAR: No chest pain, chest pressure or chest discomfort, palpitations, edema, orthopnea, syncopal events. RESPIRATORY: No shortness of breath, cough or sputum, wheezing, hemoptysis. GASTROINTESTINAL: + anorexia, No nausea, vomiting or diarrhea, abdominal pain, melena, BRBPR. GENITOURINARY: No dysuria, frequency, urgency or retention. NEUROLOGICAL: + Severe generalized weakness. No headache, dizziness, syncope, paralysis, ataxia, numbness or tingling in the extremities, focal weakness, change in bowel or bladder control, seizure. MUSCULOSKELETAL: + muscle, back pain, joint pain or stiffness. HEMATOLOGIC: + anemia, bleeding or bruising. LYMPHATICS: No enlarged nodes. No history of splenectomy. PSYCHIATRIC: No history of depression or anxiety. ENDOCRINOLOGIC: No reports of sweating, cold or heat intolerance. No polyuria or polydipsia. ALLERGIES: No history of asthma, hives, eczema or rhinitis. Vital Signs Vital Signs Vital Signs: 05/23/22 17:51 05/23/22 17:58 05/23/22 19:05 Temperature 99 F Temperature Source Oral Pulse Rate 94 89 Respiratory Rate 18 24 H Respiratory Effort Normal Respiratory Pattern Tachypnea Blood Pressure 102/55 L 93/49 L Blood Pressure Mean 70 63 Pulse Ox 98 100 Oxygen Delivery Method Room Air Room Air 05/23/22 20:02 Temperature Temperature Source Pulse Rate 84 Respiratory Rate Respiratory Effort Respiratory Pattern Blood Pressure 88/46 L Blood Pressure Mean 60 Pulse Ox 90 Oxygen Delivery Method Weight Weight: 213 lb 2.992 oz Body Mass Index (BMI) 32.4 Physical Exam Narrative Physical Examination: General: Awake, alert, oriented x 3, fatigued, cooperative, seated upright in ED bed, again denies any dyspnea or chest pain at this time. Skin: Normal color, normal turgor, no icterus, no cyanosis except for significant bilateral lower extremity chronic venous stasis skin changes as well as notable left great toe diabetic foot wound more dry necrotic appearing, no drainage, no marked erythema nor fluctuance upon palp. HEENT: AT/NC, EOMI, PERRLA, mildly dry MM, no carotid bruits or JVD noted. Lungs: Diminished, greater bases, mildly coarse, improved with cough, no obvious rales or wheezing. Heart: Irregular, rate appropriate; no gallop, rub audible. Abdomen: Soft, obese, NTTP, ND, distant normal BS, no obvious evidence of HSM. Extremities: No cyanosis, no clubbing, significant bilateral lower extremity chronic venous stasis skin changes, see skin. Neurological: Patient awake, alert, oriented as noted, cognitive function intact; pupils equally reactive to light and accommodation, cranial nerves grossly normal, moving all 4 extremities, no focal deficits, strength severely global decrease secondary to acute presentation and underlying comorbidities. Psychiatric: Affect appears flat, fatigued, no acute evidence of depressive or anxiety feelings. Results Lab / Micro Data Result Diagrams: 05/23/22 18:16 05/23/22 18:16 Labs: Laboratory Results - last 24 hr 05/23/22 18:16: WBC 18.2 H, RBC 3.57 L, Hgb 11.1 L, Hct 34.4 L, MCV 96.4 H, MCH 31.1, MCHC 32.3, RDW Std Deviation 55.3 H, RDW Coeff of Moni 15.6 H, Plt Count 164, MPV 10.1, Immature Gran % (Auto) 1.000 H, Neut % (Auto) 90.3 H, Lymph % (Auto) 2.4 L, [place] % (Auto) 6.0, Eos % (Auto) 0.1, Baso % (Auto) 0.2, Absolute Neuts (auto) 16.4 H, Absolute Lymphs (auto) 0.43 L, Nucleated RBC % 0, Differential Comment 05/23/22 18:16: Sodium 128 L, Potassium 4.7, Chloride 85 L, Carbon Dioxide 27.0, Anion Gap 16 H, BUN 83 H, Creatinine 7.19 H, Estim Creat Clear Calc 8.06, Est GFR (MDRD) Af Amer 10 L, Est GFR (MDRD) Non-Af 8 L, BUN/Creatinine Ratio 11.5, Glucose 262 H, Calcium 10.3 H, Troponin I High Sens 1589 H* 05/23/22 18:16: Lactic Acid 3.1 H* Radiology Impression Chest X-Ray 05/23/22 18:52 IMPRESSION: 1. Question retrocardiac left lower lobe pneumonia. 2. Cardiomegaly. 3. Degenerative changes as above Electronically Signed: Carl Lantigua DO at 19:13 EST Reading Location ID and State: [address] [place] [address] Tel [phone], Service support , Assessment & Plan Assessment/Plan (1) Pneumonia: PLAN: Plan The patient is a 81 y/o M w/ PMHx: Chronic combined Diastolic/Systolic CHF/Ischemic cardiomyopathy, HTN, HLD, ANKIT on CPAP, CAD, Diabetes mellitus type II with neuropathy, ESRD on HD, Hypothyroidism, Former tobacco use, Chronic AF, CAD s/p PCI who presents to the [facility] ED on 05/23/22 with history of persistent generalized weakness x5 days with recent intervention on his left upper extremity secondary to pseudoaneurysm by Dr. Lunsford with associated fall ~ 4 days prior off the toilet without injury and on evening prior to presentation slid out of bed and unable to get back up with EMS call at that time without no LOC or head trauma nor lightheadedness/dizziness associated with most recent HD 2 days prior nor any chest pain. #1. Possible Community Acquired Pneumonia w/ associated Lactic acidosis (suspect dehydration component related as well as potentially infection with And possibly #3 as noted): Will admit to PCU, maintain on oxygen with wean as tolerated to room air, continue ATC budesonide, PRN albuterol, maintained on IV rocephin and vancomycin given concurrent left great toe diabetic foot wound with de-escalation as able, no marked recent dyspnea, cough but notable WBC elevation with L shift but notably dry appearance also upon presentation but again great toe is not severe appearing, plan repeat CXR in AM, HOB, IS parameters w/ pending sputum cultures and although does not marked marked urine but if able will obtain urine antigens. Bld cx x 2 obtained in the ED. Procalcitonin requested. PT/OT/CM consultation for discharge planning with current needs c/w SNF. #2. Acute NSTEMI, suspected type II: ED evaluation with troponin 1589, chest x-ray with questionable retrocardiac left lower lobe pneumonia, EKG wtih Atrial fibrillation with a rate of 88 bpm with old anterior and inferior infarct. Will maintain on a monitored bed, continue serial cardiac enzymes and EKGs. Obtain magnesium level upon admission. Will hold eliquis and transition to heparin drip in case of cardiac catheterization intention but will await cardiology assessment. ECHO requested. Continue medical management. Maintain NPO after midnight. ASA, NG, morphine. #3. 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 Dhaliwal Podiatry team, consult wound RN, continue dressing changes, offloading, ESR and CRP requested, procalcitonin pending. Transitioning off eliquis to heparin drip as noted, continue asa, statin. #4. Acute hyponatremia, hypochloremia, suspected hypovolemic status: Admission sodium 128, chloride 85, will continue judicious hydration, repeat level in AM. #5. ESRD on HD w/ acutely increased Cr above prior baseline/DANIA suspected secondary to dehydration component: Following with nephrology, last HD 2 days prior, will request Nephrology Dr. Howell consultation for continued HD treatments. Admission BUN/Cr 83/7.19, prior baseline creatinine noted to be primarily 3.6-4.1 with most recent prior to this 02/10/2022 4.53. Will very judiciously hydrate given history, hold nephrotoxic medications and repeat chemistry in AM, does not marked marked urine but if able will obtain UA and FeNa assessment. #6. CAD: Status post PCI, temporarily holding Eliquis with transition to heparin drip in a.m. when next dose will be due in case of cardiology intervention, maintain on aspirin, statin, continue metoprolol as BP allows, not on GRAYSON number/ARB likely secondary to underlying renal disease. #7. Chronic diastolic and systolic CHF/ischemic cardiomyopathy: Temporarily holding Eliquis with transition to heparin drip in a.m. when next dose will be due in case of cardiology intervention, continue aspirin, statin, metoprolol as BP allows, not on GRAYSON/ARB, holding Lasix given worsening renal function with dehydration presentation as noted although makes only minimal urine output per discussion. 03/17/2022 echocardiogram with normal LV size, EF 35%, moderate segmental systolic dysfunction, severely enlarged LA, mild MVI, mild to moderate TVI, PASP 57 mmHg with moderate pulmonary hypertension, moderate focal AV calcification with contrast injection performed at that time with improvement of LV systolic function compared to previous echo. Given NSTEMI presentation repeat echo requested. #8. PAF: Will continue home amiodarone, metoprolol as BP allows, holding eliquis with transition to heparin drip in AM pending Cardiology assessment in case of catheterization considerations. #9. Diabetes mellitus type II with neuropathy: Per current list on a regimen, noted history, hemoglobin A1c requested, in the interim maintain on renal/ADA diet, accu checks w/ ISS. #10. Hypertension: Noted prior history, since HD onset patient baseline per spouse and self ranges systolic 80 to 90s routinely, temporally holding Lasix given dehydrated appearance, judiciously hydrating, continue metoprolol as BP allows, maintained on midodrine. #11. Hyperlipidemia: Continue home statin regimen. AM FLP. #12. Reported history hypothyroidism: Noted in chart, not on any regimen, TSH and free T4 requested. #13. Chronic anemia, macrocytic/AOCD: Admission hemoglobin 11.1, MCV 96.4, baseline hemoglobin noted prior primarily 8-10, most recently prior to this 02/10/2022 hemoglobin 12.2 at that time. #14. BPH: Continue patient home Flomax regimen. #15. ANKIT: CPAP q HS. #16. DVT Prophylaxis: SCDs, holding eliquis with transition to heparin in AM pending cardiology evaluation and prep for possible catheterization and also possible podiatry intervention as noted. #17. CODE status: Patient MARIO is his who is present and living will is currently in place. Discussed CODE status at length including difference between FULL code, DNR-CCA and DNR-CC status. Following discussions about the differences in these status, requested Full Code status. Did discuss unfortunately given severe history if there was an untoward event that did occur he would likely have a poor prognosis. Advanced Care Planning Face to Face Time: 16 minutes. Admission Evaluation Time spent evaluating chart, patient history, patient evaluation, care planning and discussion with specialists: 78 minutes. Charges/Coding Visit Charges Inpatient E&M: 95180 Init Hosp L3 Procedures Hospitalists Procedures: 62534 Advncd Care Plan 30 Min
--- NOTE | 2022-05-23 20:52 | EKG12_ITS ---
Test Reason : AM EKG Blood Pressure : / mmHG Vent. Rate : 066 BPM Atrial Rate : 000 BPM P-R Int : 000 ms QRS Dur : 094 ms QT Int : 444 ms P-R-T Axes : 000 -17 098 degrees QTc Int : 465 ms Atrial fibrillation with premature ventricular or aberrantly conducted complexes Inferior infarct , age undetermined Anterior infarct , age undetermined ST & T wave abnormality, consider lateral ischemia Abnormal ECG When compared with ECG of 23-MAY-2022 22:16, MANUAL COMPARISON REQUIRED, DATA IS UNCONFIRMED Confirmed by SHIMA GOMEZ, ARELI ([id number]), pictures editor KIMMY SAWYER ([id number]) on 05/28/2022 9:05:23 AM Referred By: KSENIA Confirmed By:ANGEL RONQUILLO MD
[2022-05-23] MEDS: Ceftriaxone 1 GM/50 ML BAG IV (21:00)
[2022-05-23 21:29] LABS: Magnesium 2.7 mg/dL (1.6-2.6)
--- NOTE | 2022-05-23 22:10 | EKG12_ITS ---
Test Reason : CP ADMIT Blood Pressure : / mmHG Vent. Rate : 088 BPM Atrial Rate : 000 BPM P-R Int : 000 ms QRS Dur : 114 ms QT Int : 384 ms P-R-T Axes : 000 015 095 degrees QTc Int : 464 ms Atrial fibrillation Inferior infarct , age undetermined Anterior infarct , age undetermined Abnormal ECG When compared with ECG of 23-MAY-2022 19:00, MANUAL COMPARISON REQUIRED, DATA IS UNCONFIRMED Confirmed by PABLO GOMEZ, TATY ([id number]), editor managing director KIMMY SAWYER ([id number]) on 05/27/2022 10:45:47 AM Referred By: Confirmed By:TATY SHAH MD
--- NOTE | 2022-05-23 22:38 | RAD_ITS ---
STUDY: X-RAY - LEFT FOOT CLINICAL: Male, 81 years old. Wound on the great toe. TECHNIQUE: 3 view(s) of the foot. COMPARISON: Left toes, May 13, 2022. FINDINGS: Normal talus, calcaneus, and tarsal bones. Normal visualized subtalar, talonavicular, calcaneocuboid, tarsal and tarsometatarsal articulations. Normal metatarsi. Normal metatarsophalangeal joint of the great toe. Normal tibial and fibular sesamoid bones. Normal interphalangeal joint of the great toe. Normal phalanges of the great toe. Normal second through fifth metatarsophalangeal joints. Normal interphalangeal joints and phalanges of the lesser toes. Atherosclerotic changes of the soft tissues. RAD/Foot min 3 Views IMPRESSION: Normal x-ray examination of the foot. Electronically Signed: Carl Lantigua DO at 22:52 EST ,
[2022-05-23 22:48] LABS: Erythrocyte Sedimentation Rate 51 mm/hr (0-20)
[2022-05-23 22:49] LABS: Reflex Lactate? Y
[2022-05-23 23:07] LABS: International Normalized Ratio 1.7; Partial Thromboplast Time 43.1 Seconds (24.1-36.2); Prothrombin Time (Protime)PT. 19.7 SECONDS (11.7-14.9)
[2022-05-23 23:18] LABS: Troponin-I HS 1489 pg/mL (3.0-78.0)
[2022-05-23 23:22] LABS: Procalcitonin 2.14 ng/mL (0.00-0.09)
[2022-05-23] MEDS: 0.9% Normal Saline 1,000 ML 100 ML IV (23:26)
[2022-05-23] MEDS: Atorvastatin Calcium 40 MG Tablet PO (23:26)
[2022-05-24] VITALS (15 sets, daily range): BP systolic 71–98; BP diastolic 37–57; PULSE 63–83; RESP 14–25; TEMP 36.3–37.7; O2SAT 88–100
[2022-05-24] LABS: Bedside Glucose 238 mg/dL (74-106)
[2022-05-24] MEDS: Midodrine HCl 5 MG Tablet 10 MG PO ×5 (00:32→21:38)
[2022-05-24 02:55] LABS: Troponin-I HS 1426 pg/mL (3.0-78.0)
--- NOTE | 2022-05-24 05:00 | RAD_ITS ---
EXAM: XR CHEST, 1 VIEW CLINICAL INDICATION: ? PNA TECHNIQUE: Frontal view of the chest. This report was created using [employer] report generation technology. COMPARISON: 05/23/2022. FINDINGS: LUNGS AND PLEURAL SPACES: Low lung volumes limit the exam. Coarse opacities left lung base likely atelectasis but pneumonia cannot be completely excluded. No pneumothorax. No effusion. HEART: Unremarkable. Cardiac silhouette not enlarged. MEDIASTINUM: Central airways and mediastinal contour are unremarkable. BONES/JOINTS: Unremarkable. SOFT TISSUES: Unremarkable. RAD/Chest 1 View (Portable) IMPRESSION: Low lung volumes limit the exam. Coarse opacities left lung base likely atelectasis but pneumonia cannot be completely excluded. Electronically Signed: Agustin Zamudio MD at 5:21 EST ,
--- NOTE | 2022-05-24 05:55 | ECHOCS_ITS ---
Reason For Study: NSTEMI Procedure This was a 2D Doppler, Color Flow transthoracic echocardiogram. The study was technically difficult. Contrast injection was performed. Exam performed in department. Left Ventricle Normal LV size. Mild concentric left ventricular hypertrophy. Moderately severe segmental systolic dysfunction (see wall motion). The estimated ejection fraction is 30 %. Unable to assess diastolic dysfunction due to arrhythmia. [place] : Akinetic. Mid-anteroseptal : Hypokinetic. Mid-Anterior : Hypokinetic. Right Ventricle Normal RV size. Normal systolic function. Atria The left atrium is severely enlarged. The right atrium is moderately enlarged. Mitral Valve There is moderate mitral annular calcification. Tricuspid Valve Normal tricuspid valve. Mild (1+) tricuspid valve insufficiency. Pulmonary artery systolic pressure is 35 mmHg. Great Vessels Normal aortic root. The pulmonary artery is normal size. Normal inferior vena cava. Pericardium/Pleural No pericardial effusion. Medication Diluted definity 3.0ml given slow IV push to enhance endocardial definition. MMode/2D Measurements & Calculations LVIDd: 5.1 cm IVSd: 1.3 cm LVOT diam: 2.0 cm LVIDs: 3.4 cm LVPWd: 1.3 cm LVOT area: 3.3 cm2 RVDd: 4.0 cm FS: 33.2 % Ao root diam: 3.5 cm LAV(MOD-bp): 152.0 ml LVAd ap4: 47.6 cm2 LAV(MOD-bp) Indexed: 72.1 ml/m2 LVLd ap4: 10.7 cm LAV(MOD-sp2): 139.0 ml EDV(MOD-sp4): 173.4 ml LAV(MOD-sp4): 139.5 ml EDV(sp4-el): 180.0 ml LVAs ap4: 38.3 cm2 LVLs ap4: 10.4 cm ESV(MOD-sp4): 117.8 ml ESV(sp4-el): 119.9 ml EF(MOD-sp4): 32.1 % EF(sp4-el): 33.4 % SV(MOD-sp4): 55.6 ml SV(MOD-sp2): 45.8 ml LVAd ap2: 39.4 cm2 LVLd ap2: 9.8 cm EDV(MOD-sp2): 133.8 ml EDV(sp2-el): 134.0 ml LVAs ap2: 31.3 cm2 LVLs ap2: 9.1 cm ESV(MOD-sp2): 88.0 ml ESV(sp2-el): 91.5 ml EF(MOD-sp2): 34.2 % SV(sp4-el): 60.1 ml LA A4 area: 36.2 cm2 LA dimension(2D): 5.1 cm RA A4 area: 25.8 cm2 Time Measurements MV dec time: 0.17 sec Doppler Measurements & Calculations MV E max andrez: 131.9 cm/sec Lat Peak E' Andrez: 7.9 cm/sec Med Peak E' Andrez: 4.4 cm/sec MV A max andrez: 26.0 cm/sec E/E' lat: 16.6 E/E' med: 29.8 MV E/A: 5.1 MV dec slope: 835.0 cm/sec2 Ao V2 max: 191.1 cm/sec LV V1 max: 96.8 cm/sec Ao max P.6 mmHg LV V1 max P.8 mmHg Ao V2 mean: 143.1 cm/sec LV V1 mean P.2 mmHg Ao mean P.2 mmHg LV V1 mean: 71.5 cm/sec Ao V2 VTI: 43.5 cm LV V1 VTI: 19.9 cm AV (velocity ratio): 0.46 ERICA(I,D): 1.5 cm2 ERICA(V,D): 1.7 cm2 SV(LVOT): 65.4 ml PA V2 max: 72.0 cm/sec TR max andrez: 279.9 cm/sec TR max P.3 mmHg ECHO/Echo Complete W/ Contrast Interpretation Summary Normal LV size. Mild concentric left ventricular hypertrophy. Moderately severe segmental systolic dysfunction (see wall motion). The estimated ejection fraction is 30 %. The left atrium is severely enlarged. The right atrium is moderately enlarged. Unable to assess diastolic dysfunction due to arrhythmia. Mild (1+) tricuspid valve insufficiency. Contrast injection was performed. Ordering Physician: White, Cristy L Referring Physician: Masha Treviño Performed By: Emperatriz Aldana, DAYDAY, RVT
[2022-05-24 06:06] LABS: Partial Thromboplast Time 40.3 Seconds (24.1-36.2)
[2022-05-24 06:25] LABS: ALB/GLOB Ratio 0.4 RATIO (0.9-2.4); AST(SGOT) 39 U/L (15-37); Alanine Aminotransfer ALT/SGPT 36 U/L (16-61); Albumin, Serum 2.1 g/dL (3.2-5.0); Alkaline Phosphatase 145 U/L (45-117); Anion Gap 15 (5-15); BUN 88 mg/dL (7-18); Calcium,Total 9.8 mg/dL (8.5-10.1); Chloride 89 mmol/L (98-107); Cholesterol 57 mg/dL (200); Creatinine, Serum 7.35 mg/dL (0.70-1.30); EST Glomerular Filtration Rate 8 mL/min (>60); Est Glom Filt Rate - Afr Amer 9 mL/min (>60); Estimated Creatinine Clearance 7.88 ml/min; Globulin 4.9 g/dL (2.2-4.2); Glucose 224 mg/dL (74-106); High Density Lipoprotein 22 mg/dL; Sodium Level 129 mmol/L (136-145); T4 Free Direct 1.05 ng/dL (0.76-1.46); Thyroid Stim Hormone (TSH) 2.72 uIU/mL (0.358-3.74); Triglycerides 93 mg/dL; Very Low Density Lipoprotein 19 mg/dL (5-40)
[2022-05-24 06:40] LABS: Bedside Glucose 238 mg/dL (74-106)
[2022-05-24] MEDS: Budesonide Respules 0.5 MG/2 ML AMPUL.NEB. INHALATION ×2 (06:56→19:25)
[2022-05-24 07:28] LABS: Hemoglobin A1c 5.9 % (3.8-5.6)
--- NOTE | 2022-05-24 07:48 | PCM.CONS.C ---
Assessment & Plan Assessment/Plan (1) Non-STEMI (non-ST elevated myocardial infarction): PLAN: He does have a recent episode of non-ST elevation myocardial infarction. He had undergone a cardiac catheterization in 2019 as well as in 2021 both of which determined severe disease as noted above but medical therapy was recommended as it did not appear that there were any good options for either bypass or PCI. My opinion is that we should pursue the same approach at this time. We will reevaluate his left ventricular systolic function which is noted to be declined at between 25 and 30%. We will continue to try and optimize his medical therapy. (2) History of coronary artery stent placement: PLAN: He does have a history of previous remote coronary artery stenting. This appears to have been evaluated less than a year ago and medical therapy was recommended. (3) Ischemic cardiomyopathy: PLAN: He does have evidence of ischemic cardiomyopathy. His ejection fraction was noted to be low. My recommendation will be to repeat the above and depending on the findings further recommendations will be made. (4) Longstanding persistent atrial fibrillation: PLAN: He does have evidence of longstanding atrial fibrillation for which she remains on anticoagulation. His rate is controlled on the current medical therapy and no changes will be made with respect to the above. (5) Essential (primary) hypertension: PLAN: He does have a history of hypertension but his blood pressure has been low and the plan will be to continue the current medical therapy with intermittent use of midodrine for his blood pressure. (6) Chronic renal failure, stage 4 (severe): PLAN: He does have chronic renal failure and he will continue with dialysis HPI Consult Data Date of Consult: 05/24/22 HPI Narrative HPI Narrative: HANS GLASS, is a 81 M who presents with general weakness to the emergency room. He also had a recent fall. It does not appear that he had any fracture or significant injury. In the emergency room he had his troponin evaluated and was noted to be markedly abnormal. He also has been in a persistent atrial fibrillation rhythm. Cardiology was called for further evaluation and management. He has a history of coronary artery disease with stenting to his RCA (2002, 2004, and PCI 2015), persistent atrial fibrillation, hypertension, hyperlipidemia, chronic kidney disease, ANKIT with BiPAP and oxygen therapy, and diabetes. In December 2019 he was in the emergency room for acute pulmonary edema.? He was urgently intubated.? His troponin did elevate to 18.? EF did demonstrate a decreased ejection fraction of 45% with a hypokinetic inferior apical wall.? He did undergo a heart catheterization which demonstrated diffuse three-vessel coronary artery disease involving a 60 to 80% long LAD lesion, obtuse marginal branch with a proximal 80% stenotic lesion, and a distal right coronary artery with in-stent stenosis of 70% in the posterior lateral vessel of 70% stenosis.? Medical therapy was recommended.? He was also noted to be in atrial fibrillation and his beta-carl was resumed.? He recuperated in the transitional care unit and was discharged.? He was also put on triple therapy including aspirin, clopidogrel, and warfarin. He went on a trip to [place] and sustained a non-ST elevation myocardial infarction and had to undergo a cardiac catheterization in August 2021 which demonstrated 40% distal left main stenosis, left anterior descending artery which was severely calcified with a 70 to 80% mid diffuse stenosis in the mid vessel was subtotally occluded, the circumflex artery was a medium caliber vessel with 30% stenosis in the right coronary artery was a large vessel heavily calcified with 70% stenosis and a distal focal 70% stenosis and a subtotal right posterior descending artery with [id number] collaterals.? Medical therapy was recommended.? His ejection fraction at that time was noted to be 25 to 29%.? The left atrium was severely dilated. He also had a fistula created for his dialysis.? He also had developed a strangulated umbilical hernia for which he underwent surgery successfully.? During his last office visit in [place] he appeared to be fairly stable. In addition during his last visit to the office in February 2022 he appeared to be particularly stable he had lost some weight and was still undergoing dialysis. FORMERLY [facility], [facility] Medical History Acute combined systolic (congestive) and diastolic (congestive) heart failure Acute respiratory failure with hypoxia and hypercapnia (12/30/19) Ambulates with cane Atherosclerotic heart disease of [place] coronary artery without angina pectoris Axillary adenopathy Chronic combined systolic and diastolic CHF (congestive heart failure) Chronic renal failure, stage 4 (severe) CPAP (continuous positive airway pressure) dependence Diabetic neuropathy associated with type 2 diabetes mellitus Easy bruising Essential (primary) hypertension Excessive bleeding Former smoker Hernia, umbilical, 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) History of edema History of non-ST elevation myocardial infarction (NSTEMI) (12/31/19) History of renal disease Hyperlipidemia Hyperphosphatemia Hypothyroidism Insulin dependent diabetes mellitus Iron deficiency anemia Ischemic cardiomyopathy Left atrial enlargement Longstanding persistent atrial fibrillation Morbid obesity 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 layer exposed Obstructive sleep apnea On home oxygen therapy Pseudoaneurysm of arteriovenous graft Pulmonary edema (12/30/19) Shortness of breath on exertion Type 2 diabetes mellitus Unsteady gait when walking Home Medications aspirin 81 mg tablet,delayed release 81 mg PO DAILY Check with primary doctor 07/17/15 [History Last Taken 01/06/20 08:00] amiodarone 200 mg tablet 200 mg PO DAILY 03/09/22 [History Last Taken Unknown] atorvastatin 40 mg tablet 40 mg PO QHS 03/09/22 [History Last Taken Unknown] ergocalciferol (vitamin D2) 50 mcg (2,000 unit) capsule 50 mcg PO .2X month 03/09/22 [History Last Taken Unknown] furosemide 40 mg tablet 40 mg PO DAILY Weight Gain 03/09/22 [History Last Taken Unknown] metoprolol succinate 25 mg tablet,extended release 24 hr 25 mg PO DAILY 03/09/22 [History Last Taken Unknown] midodrine 10 mg tablet 10 mg PO DAILY 03/09/22 [History Last Taken Unknown] sevelamer carbonate 800 mg tablet 1,600 mg PO TID supplement 03/09/22 [History Last Taken Unknown] tamsulosin 0.4 mg capsule 0.4 mg PO DAILY 03/09/22 [History Last Taken Unknown] apixaban 2.5 mg tablet (Eliquis) 2.5 mg PO BID #180 tabs 05/10/22 [Rx Last Taken Unknown] multivitamin 1 tab PO DAILY 05/13/22 [History Last Taken Unknown] polyethylene glycol 3350 17 gram oral powder packet (Miralax) 17 g PO DAILY 05/13/22 [History Last Taken Unknown] midodrine 10 mg tablet 10 mg PO MOWEFR BP 05/24/22 [History Last Taken Unknown] Allergy/AdvReac Type Severity Reaction Status Date / Time Penicillins AdvReac Severe Swelling Verified 05/23/22 17:54 Family History Father , age 79, of embolism CAD (coronary artery disease) Embolism Myocardial infarction Mother , age 74 Kidney disease renal failure Brother Kidney disease Sister Breast cancer Surgical History History of back surgery (01/2019) History of coronary artery stent placement (06/03/15) History of herniorrhaphy (09/2021) History of left heart catheterization (09/14/21) History of total right knee replacement History of total right knee replacement (TKR) S/P arteriovenous (AV) fistula creation Surgically created abdominal mucous fistula (09/2021) Social History household members: none Smoking Status: Former smoker how long ago did patient quit smokin second hand exposure: No alcohol intake: never substance use type: does not use ROS Constitutional Constitutional: Denies fever(s) or weight loss Eyes Eyes: Reports systems reviewed and no addt'l complaints, except as documented ENT HEENT: Reports systems reviewed and no addt'l complaints, except as documented Cardiovascular Cardiovascular: Denies chest pain at rest, chest pain with activity, dyspnea at rest, dyspnea on exertion, edema, palpitations or paroxysmal nocturnal dyspnea Respiratory/Chest Respiratory/Chest: Reports dyspnea on exertion and shortness of breath with exertion; Denies productive cough or shortness of breath at rest Gastrointestinal Gastrointestinal: Denies change in bowel habits, nausea, vomiting or weight changes Genitourinary Genitourinary: Denies difficulty urinating Musculoskeletal Musculoskeletal: Denies joint stiffness or muscle weakness Integumentary Integumentary: Denies lesions Neurologic Neurologic: Denies dizziness or syncope Psychiatric Psychiatric: Denies anxiety Endocrine Endocrinology: Denies excessive sweating or fatigue Hematologic/Lymphatic Hematologic/Lymphatic: Denies anemia Allergic/Immunologic Allergic/Immunologic: Denies seasonal rhinorrhea Physical Exam Const alert, oriented x3 and no apparent distress General Appearance: cooperative HEENT hearing grossly normal bilaterally Head and Scalp: atraumatic Eyes EOMs intact bilaterally Neck General: normal visual inspection Chest inspection of chest normal and palpation of chest normal Resp normal respiratory effort Auscultation: clear to auscultation bilaterally Cardio regular rate, S1 normal heart sound and S2 normal heart sound Jugular Venous Distention: JVD Rhythm: abnormal rhythm irregularly irregular GI normal to inspection, nondistended, normoactive bowel sounds Extremity normal capillary refill and no pedal edema Peripheral Pulses: Yes pulses 2+ throughout and femoral pulses present Skin no rashes or lesions noted Neuro oriented x3 and CN's II-XII intact bilaterally Psych Appearance: grossly normal and appropriate Risk Stratification Risk Stratification Applicable: Yes Age >/= 65: Yes >/= 3 CAD Risk Factors (HTN, HLD, DM, family hx of CAD, or current smoker): Yes Aspirin Use in the Past 7 Days: Yes Severe Angina (>/= episodes in 24 hours): No EKG ST Changes >/= 0.5mm: No Positive Cardiac Marker: Yes DEBORAH Risk Stratification Score: 4 DEBORAH % Risk: 20% Risk Objective Data Vital Signs: Vital Signs Temp Pulse Resp BP Pulse Ox O2 Del Method O2 Flow Rate 98.3 F 73 18 78/46 L 97 Nasal Cannula 3 05/24/22 06:00 05/24/22 06:00 05/24/22 06:00 05/24/22 06:00 05/24/22 06:00 05/24/22 06:00 05/24/22 06:00 FiO2 40 05/23/22 22:45 Oxygen Flow Rate (L/min) 3 Oxygen Delivery Method Nasal Cannula Weight: 215 lb 2.738 oz Body Mass Index (BMI) 32.7 Intake & Output: Intake and Output for Last 24 Hours 05/22/22 05/23/22 05/24/22 23:59 23:59 23:59 Intake Total 806.92 / 806.92 491.67 / 491.67 Balance 806.92 / 806.92 491.67 / 491.67 Lab / Micro Data Result Diagrams: 05/23/22 18:16 05/24/22 05:18 Labs: Laboratory Results - last 24 hr 05/23/22 18:16: WBC 18.2 H, RBC 3.57 L, Hgb 11.1 L, Hct 34.4 L, MCV 96.4 H, MCH 31.1, MCHC 32.3, RDW Std Deviation 55.3 H, RDW Coeff of Moni 15.6 H, Plt Count 164, MPV 10.1, Immature Gran % (Auto) 1.000 H, Neut % (Auto) 90.3 H, Lymph % (Auto) 2.4 L, Winston % (Auto) 6.0, Eos % (Auto) 0.1, Baso % (Auto) 0.2, Absolute Neuts (auto) 16.4 H, Absolute Lymphs (auto) 0.43 L, Nucleated RBC % 0, Differential Comment 05/23/22 18:16: Sodium 128 L, Potassium 4.7, Chloride 85 L, Carbon Dioxide 27.0, Anion Gap 16 H, BUN 83 H, Creatinine 7.19 H, Estim Creat Clear Calc 8.06, Est GFR (MDRD) Af Amer 10 L, Est GFR (MDRD) Non-Af 8 L, BUN/Creatinine Ratio 11.5, Glucose 262 H, Calcium 10.3 H, Troponin I High Sens 1589 H* 05/23/22 18:16: Lactic Acid 3.1 H* 05/23/22 18:16: Magnesium 2.7 H 05/23/22 18:16: ESR 51 H 05/23/22 18:16: C-React Prot Ext Range 224.00 H 05/23/22 22:46: PT 19.7 H, INR 1.7, APTT 43.1 H 05/23/22 22:46: Procalcitonin 2.14 H 05/23/22 22:46: Troponin I High Sens 1489 H* 05/23/22 23:24: POC Glucose 238 H 05/23/22 23:59: Lactic Acid 2.0 05/24/22 02:15: Troponin I High Sens 1426 H* 05/24/22 05:18: Sodium 129 L, Potassium 5.0, Chloride 89 L, Carbon Dioxide 25.0, Anion Gap 15, BUN 88 H, Creatinine 7.35 H, Estim Creat Clear Calc 7.88, Est GFR (MDRD) Af Amer 9 L, Est GFR (MDRD) Non-Af 8 L, BUN/Creatinine Ratio 12.0, Glucose 224 H, Calcium 9.8, Total Bilirubin 0.40, AST 39 H, ALT 36, Alkaline Phosphatase 145 H, Total Protein 7.0, Albumin 2.1 L, Globulin 4.9 H, Albumin/Globulin Ratio 0.4 L, Triglycerides 93, Cholesterol 57, LDL Cholesterol 16, VLDL Cholesterol 19, HDL Cholesterol 22 L, TSH 2.72, Free T4 1.05 05/24/22 05:18: Hemoglobin A1c 5.9 H 05/24/22 05:18: APTT 40.3 H 05/24/22 06:21: POC Glucose 238 H Micro: Microbiology 05/23/22 22:40 Mucosa - Nasopharyngeal Respiratory Panel (PCR) - Final Cardiology Labs/Tests 05/23/22 18:16: WBC 18.2 H, RBC 3.57 L, Hgb 11.1 L, Hct 34.4 L, MCV 96.4 H, MCH 31.1, MCHC 32.3, Plt Count 164, MPV 10.1, Immature Gran % (Auto) 1.000 H, Neut % (Auto) 90.3 H, Lymph % (Auto) 2.4 L, Winston % (Auto) 6.0, Eos % (Auto) 0.1, Baso % (Auto) 0.2, Absolute Neuts (auto) 16.4 H, Nucleated RBC % 0 05/23/22 18:16: Sodium 128 L, Potassium 4.7, Chloride 85 L, Carbon Dioxide 27.0, Anion Gap 16 H, BUN 83 H, Creatinine 7.19 H, Est GFR (MDRD) Af Amer 10 L, Est GFR (MDRD) Non-Af 8 L, BUN/Creatinine Ratio 11.5, Glucose 262 H, Calcium 10.3 H 05/23/22 18:16: Lactic Acid 3.1 H* 05/23/22 18:16: Magnesium 2.7 H 05/23/22 22:46: PT 19.7 H, INR 1.7, APTT 43.1 H 05/23/22 23:59: Lactic Acid 2.0 05/24/22 05:18: Sodium 129 L, Potassium 5.0, Chloride 89 L, Carbon Dioxide 25.0, Anion Gap 15, BUN 88 H, Creatinine 7.35 H, Est GFR (MDRD) Af Amer 9 L, Est GFR (MDRD) Non-Af 8 L, BUN/Creatinine Ratio 12.0, Glucose 224 H, Calcium 9.8, Total Bilirubin 0.40, Triglycerides 93, Cholesterol 57, LDL Cholesterol 16, VLDL Cholesterol 19, HDL Cholesterol 22 L 05/24/22 05:18: Hemoglobin A1c 5.9 H 05/24/22 05:18: APTT 40.3 H Rhythm: EKG: ECHO: Stress Test: Cardiac Cath: PCI: CT Surgery: Holter monitor: EPS: PPM: CXR: Chest CT Scan: Radiography Diagnostic Testing: Radiology Impression Chest X-Ray 05/23/22 18:52 IMPRESSION: 1. Question retrocardiac left lower lobe pneumonia. 2. Cardiomegaly. 3. Degenerative changes as above Electronically Signed: Carl Lantigua DO at 19:13 EST , Foot X-Ray 05/23/22 22:38 IMPRESSION: Normal x-ray examination of the foot. Electronically Signed: Carl Lantigua DO at 22:52 EST Reading Location ID and State: [employer] / [place] Tel [phone], Service support , Chest X-Ray 05/24/22 05:00 IMPRESSION: Low lung volumes limit the exam. Coarse opacities left lung base likely atelectasis but pneumonia cannot be completely excluded. Electronically Signed: Agustin Zamudio MD at 5:21 EST ,
--- NOTE | 2022-05-24 08:09 | PN.HOSP_ITS ---
Subjective Subjective Does report he has been feeling better overall though still somewhat generally weak, BP has been low but he is been asymptomatic Objective Data Objective Data Vital Signs: Vital Signs Temp Pulse Resp BP Pulse Ox O2 Del Method O2 Flow Rate 98.3 F 73 18 78/46 L 97 Nasal Cannula 3 05/24/22 06:00 05/24/22 06:00 05/24/22 06:00 05/24/22 06:00 05/24/22 06:00 05/24/22 06:00 05/24/22 06:00 FiO2 40 05/23/22 22:45 Oxygen Flow Rate (L/min) 3 Oxygen Delivery Method Nasal Cannula Weight: 97.6 kg Body Mass Index (BMI) 32.7 Intake & Output: Intake and Output for Last 24 Hours 05/22/22 05/23/22 05/24/22 23:59 23:59 23:59 Intake Total 806.92 / 806.92 491.67 / 491.67 Balance 806.92 / 806.92 491.67 / 491.67 Lab / Micro Data Result Diagrams: 05/24/22 05:18 05/24/22 05:18 Labs: Laboratory Results - last 24 hr 05/23/22 18:16: WBC 18.2 H, RBC 3.57 L, Hgb 11.1 L, Hct 34.4 L, MCV 96.4 H, MCH 31.1, MCHC 32.3, RDW Std Deviation 55.3 H, RDW Coeff of Moni 15.6 H, Plt Count 164, MPV 10.1, Immature Gran % (Auto) 1.000 H, Neut % (Auto) 90.3 H, Lymph % (Auto) 2.4 L, [place] % (Auto) 6.0, Eos % (Auto) 0.1, Baso % (Auto) 0.2, Absolute Neuts (auto) 16.4 H, Absolute Lymphs (auto) 0.43 L, Nucleated RBC % 0, Differential Comment 05/23/22 18:16: Sodium 128 L, Potassium 4.7, Chloride 85 L, Carbon Dioxide 27.0, Anion Gap 16 H, BUN 83 H, Creatinine 7.19 H, Estim Creat Clear Calc 8.06, Est GFR (MDRD) Af Amer 10 L, Est GFR (MDRD) Non-Af 8 L, BUN/Creatinine Ratio 11.5, Glucose 262 H, Calcium 10.3 H, Troponin I High Sens 1589 H* 05/23/22 18:16: Lactic Acid 3.1 H* 05/23/22 18:16: Magnesium 2.7 H 05/23/22 18:16: ESR 51 H 05/23/22 18:16: C-React Prot Ext Range 224.00 H 05/23/22 22:46: PT 19.7 H, INR 1.7, APTT 43.1 H 05/23/22 22:46: Procalcitonin 2.14 H 05/23/22 22:46: Troponin I High Sens 1489 H* 05/23/22 23:24: POC Glucose 238 H 05/23/22 23:59: Lactic Acid 2.0 05/24/22 02:15: Troponin I High Sens 1426 H* 05/24/22 05:18: Sodium 129 L, Potassium 5.0, Chloride 89 L, Carbon Dioxide 25.0, Anion Gap 15, BUN 88 H, Creatinine 7.35 H, Estim Creat Clear Calc 7.88, Est GFR (MDRD) Af Amer 9 L, Est GFR (MDRD) Non-Af 8 L, BUN/Creatinine Ratio 12.0, Glucose 224 H, Calcium 9.8, Total Bilirubin 0.40, AST 39 H, ALT 36, Alkaline Phosphatase 145 H, Total Protein 7.0, Albumin 2.1 L, Globulin 4.9 H, Albumin/Globulin Ratio 0.4 L, Triglycerides 93, Cholesterol 57, LDL Cholesterol 16, VLDL Cholesterol 19, HDL Cholesterol 22 L, TSH 2.72, Free T4 1.05 05/24/22 05:18: Hemoglobin A1c 5.9 H 05/24/22 05:18: APTT 40.3 H 05/24/22 06:21: POC Glucose 238 H Micro: Microbiology 05/23/22 22:40 Mucosa - Nasopharyngeal Respiratory Panel (PCR) - Final Radiography Diagnostic Testing: Radiology Impression Chest X-Ray 05/23/22 18:52 IMPRESSION: 1. Question retrocardiac left lower lobe pneumonia. 2. Cardiomegaly. 3. Degenerative changes as above Electronically Signed: Carl Lantigua DO at 19:13 EST Reading Location ID and State: [facility] / [place] Tel [phone], Service support , Foot X-Ray 05/23/22 22:38 IMPRESSION: Normal x-ray examination of the foot. Electronically Signed: Carl Lantigua DO at 22:52 EST Reading Location ID and State: [facility] / [place] Tel [phone], Service support , Chest X-Ray 05/24/22 05:00 IMPRESSION: Low lung volumes limit the exam. Coarse opacities left lung base likely atelectasis but pneumonia cannot be completely excluded. Electronically Signed: Agustin Zamudio MD at 5:21 EST , Physical Exam Narrative General: Alert, oriented, no apparent distress HEENT: Atraumatic, normocephalic Eyes: Anicteric, normal conjunctiva, extraocular movements grossly intact Neck: Supple Respiratory: Somewhat diminished at the bases, normal respiratory effort Cardiovascular: Irregularly irregular GI: Soft, nontender, nondistended Extremities: No edema Musculoskeletal: Moving all extremities Neuro: No overt focal neurological deficits Skin: Chronic bilateral lower extremity changes, has lesion on tip of left great toe Psych: Cooperative Assessment & Plan Assessment/Plan (1) Pneumonia: PLAN: Plan 81-year-old male with history of combined chronic diastolic and systolic CHF/ischemic cardiomyopathy, hypertension, ANKIT on CPAP, CAD status post PCI, type 2 diabetes mellitus with neuropathy, end-stage renal disease on hemodialysis, cirrhosis, chronic A. fib who presented 05/23 with 5 days of generalized weakness and recent intervention in left upper extremity secondary to pseudoaneurysm by Dr. Lunsford. Had fall about 4 days prior to presentation w hen he slid out of bed. EMS called at that time but given no injury or trauma he was not brought to the ED. Found to have NSTEMI in the ED and admitted. #Pneumonia with associated lactic acidosis Did have WBC elevation with left shift on admission Chest x-ray questionable left lower lobe pneumonia, appears more pronounced this AM Blood cultures growing MRSA IV Rocephin and vancomycin Lactic acidosis resolved As needed albuterol Budesonide Respiratory panel negative Sputum culture and urine antigens ordered #MRSA bacteremia Secondary to pneumonia versus diabetic foot wound Both blood cultures positive for MRSA Has CRP of 224 and Pro-Wilbur of 2.16 X-ray of chest suggestive of pneumonia X-ray of toe unremarkable Podiatry consulted Echo already ordered Need to follow blood cultures to assure resolution #Chronic left great toe diabetic foot wound complicated by peripheral vascular disease Follows with the wound clinic No recent worsening reported Podiatry consult Wound nurse consult CRP is 224 and Pro-Wilbur 2.14, will trend Plain film of foot normal, may need MRI if patient not improving and there is concern for osteo though if contrast needed would need closely coordinated with dialysis Blood cultures positive for MRSA 2 out of 2 Vascular consulted Repeat arterial studies ordered #NSTEMI Troponin 1589 on admission and down trended EKG showed A. fib and evidence of old anterior and inferior infarct Echo requested Cardiology consulted Aspirin, statin Beta-carl with holding parameters Had cardiac catheterizations in 2019 as well as 2021 with severe disease but medical therapy was recommended as there did not appear to be a good option for bypass or PCI-medical management again recommended Eliquis held and transition to heparin drip in the event cardiac catheterization would be needed but given no cardiac cath Eliquis resumed #History of atrial fibrillation Eliquis was transitioned to heparin on admission due to NSTEMI but Eliquis to be resumed Continue on amiodarone, metoprolol #Generalized weakness, debility, falls PT/OT Likely will need placement on discharge #Chronic combined CHF/ischemic cardiomyopathy secondary to coronary artery disease status post PCI in 2015 On Lasix chronically as well as metoprolol Lasix held due to concern for dehydration 03/17/2022 echocardiogram with normal LV size, EF 35%, moderate segmental systolic dysfunction, severely enlarged LA, mild MVI, mild to moderate TVI, PASP 57 mmHg with moderate pulmonary hypertension, moderate focal AV calcification with contrast injection performed at that time with improvement of LV systolic function compared to previous echo. Given NSTEMI repeat echo has been ordered #Type 2 diabetes mellitus with peripheral neuropathy Glucose checks and sliding scale insulin #End-stage renal disease on hemodialysis Follows with nephrology, last HD 2 days prior to admission Nephro consult Continue midodrine #Cirrhosis of the liver based on documentation Very minimally elevated AST and ALP #DVT prophylaxis: Eliquis Time spent in the patient's overall evaluation,decision-making process, review of diagnostic data, adjustment of management, discussion with other providers, nursing nursing and ancillary staff involved in patient's care documentation, 40 minutes Charges/Coding Visit Charges Inpatient E&M: 94894 Subs Hosp L2
--- NOTE | 2022-05-24 08:42 | ART_ITS ---
Reason For Study: Decreased Pedal Pulses Procedure A bilateral lower extremity continuous wave Doppler with analog waveform analysis,segmental pressures,and ankle brachial indexes without exercise. Left Segmental Pressures Left posterior tibial artery = >254mmHg. Left dorsalis pedis artery = >254mmHg. Right Segmental Pressures Right brachial= 72mmHg. Right posterior tibial artery = >254mmHg. Right dorsalis pedis artery = 140mmHg. Indices The right ankle brachial index by the posterior tibial artery is NC. The right ankle brachial index by the dorsalis pedis is 1.94. The left ankle brachial index by the posterior tibial artery is NC. The left ankle brachial index by the dorsalis pedis is NC. VL/Lower Ext Art Exam w/o Exercis Interpretation Summary Right SCOTT 1.94, artificially elevated due to non-compressible vessels. Doppler/ PVR waveforms of the right leg mildly diminished low thigh and moderately diminished infrapopliteal. Left SCOTT not able to be obtained due to non-compressible vessels. Doppler/PVR w aveforms of the left leg mildly diminished low thigh and moderately diminished infrapopliteal Ordering Physician: Gabriel Hurst Referring Physician: Masha Treviño Performed By: Danielle Betancur RDCS/RVT
--- NOTE | 2022-05-24 08:43 | VDLE_ITS ---
Reason For Study: Pain RIGHT LEFT GSV is normal. GSV is normal. CFV is compressible, spontaneous, competent CFV is compressible, spontaneous, competent, and demonstrates pulsatile venous flow. and demonstrates pulsatile venous flow. FV is compressible, spontaneous, competent FV is compressible, spontaneous, competent and demonstrates pulsatile venous flow. and demonstrates pulsatile venous flow. POP V is compressible, spontaneous, competent POP V is compressible, spontaneous, competent and demonstrates pulsatile venous flow. and demonstrates pulsatile venous flow. T/P Trunk is compressible. T/P Trunk is compressible. PTV is compressible. PTV is compressible. RT PerV is compressible. LT PerV is compressible. Procedure This is a venous duplex using B-mode, color flow and spectral Doppler. Exam performed portable in patient room. A preliminary report was called and/or faxed to [facility]. VL/Venous Duplex US - Caesar Extrem Interpretation Summary Deep veins of the bilateral lower extremities are patent and compressible segme ntally. There is no evidence of bilateral lower extremity deep vein thrombosis. The bilateral great saphenous veins appear patent and compressible segmentally. Ordering Physician: Gabriel Hurst Referring Physician: Masha Treviño M.D. Performed By: Janee Laguna RVT
--- NOTE | 2022-05-24 09:23 | PCM.WC.PN ---
History of Present Illness Date of Service: 05/24/22 Chief Complaint: Right leg venous ulceration History of Wound: This 81-year-old male presents to the wound care center with a left hallux wound secondary to traumatic injury with his walker. 3 weeks ago he smashed his left hallux with his walker removing the toenail. He was unaware of the injury secondary to diabetes with peripheral polyneuropathy until he was in bed and noticed the blood. Patient denies constitutionals or rest pain. Patient denies drainage to site, noticed some progressive darkening of left hallux. Patient admitted for Nstemi. Patient diabetic with neuropathy and ESRD on dialysis. Underwent recent procedure for fistula to left arm. Developed some fatigue and weakness after that. Objective Data Objective Data Vital Signs: Vital Signs Temp Pulse Resp BP Pulse Ox O2 Del Method O2 Flow Rate 98.0 F 70 18 98/43 L 97 Nasal Cannula 3 05/24/22 08:00 05/24/22 08:00 05/24/22 08:00 05/24/22 08:00 05/24/22 08:00 05/24/22 08:17 05/24/22 08:17 FiO2 40 05/23/22 22:45 Oxygen Flow Rate (L/min) 3 Oxygen Delivery Method Nasal Cannula Weight: 97.6 kg Body Mass Index (BMI) 32.7 Intake & Output: Intake and Output for Last 24 Hours 05/22/22 05/23/22 05/24/22 23:59 23:59 23:59 Intake Total 806.92 / 806.92 491.67 / 491.67 Balance 806.92 / 806.92 491.67 / 491.67 Lab / Micro Data Result Diagrams: 05/23/22 18:16 05/24/22 05:18 Labs: Laboratory Results - last 24 hr 05/23/22 18:16: WBC 18.2 H, RBC 3.57 L, Hgb 11.1 L, Hct 34.4 L, MCV 96.4 H, MCH 31.1, MCHC 32.3, RDW Std Deviation 55.3 H, RDW Coeff of Moni 15.6 H, Plt Count 164, MPV 10.1, Immature Gran % (Auto) 1.000 H, Neut % (Auto) 90.3 H, Lymph % (Auto) 2.4 L, [place] % (Auto) 6.0, Eos % (Auto) 0.1, Baso % (Auto) 0.2, Absolute Neuts (auto) 16.4 H, Absolute Lymphs (auto) 0.43 L, Nucleated RBC % 0, Differential Comment 05/23/22 18:16: Sodium 128 L, Potassium 4.7, Chloride 85 L, Carbon Dioxide 27.0, Anion Gap 16 H, BUN 83 H, Creatinine 7.19 H, Estim Creat Clear Calc 8.06, Est GFR (MDRD) Af Amer 10 L, Est GFR (MDRD) Non-Af 8 L, BUN/Creatinine Ratio 11.5, Glucose 262 H, Calcium 10.3 H, Troponin I High Sens 1589 H* 05/23/22 18:16: Lactic Acid 3.1 H* 05/23/22 18:16: Magnesium 2.7 H 05/23/22 18:16: ESR 51 H 05/23/22 18:16: C-React Prot Ext Range 224.00 H 05/23/22 22:46: PT 19.7 H, INR 1.7, APTT 43.1 H 05/23/22 22:46: Procalcitonin 2.14 H 05/23/22 22:46: Troponin I High Sens 1489 H* 05/23/22 23:24: POC Glucose 238 H 05/23/22 23:59: Lactic Acid 2.0 05/24/22 02:15: Troponin I High Sens 1426 H* 05/24/22 05:18: Sodium 129 L, Potassium 5.0, Chloride 89 L, Carbon Dioxide 25.0, Anion Gap 15, BUN 88 H, Creatinine 7.35 H, Estim Creat Clear Calc 7.88, Est GFR (MDRD) Af Amer 9 L, Est GFR (MDRD) Non-Af 8 L, BUN/Creatinine Ratio 12.0, Glucose 224 H, Calcium 9.8, Total Bilirubin 0.40, AST 39 H, ALT 36, Alkaline Phosphatase 145 H, Total Protein 7.0, Albumin 2.1 L, Globulin 4.9 H, Albumin/Globulin Ratio 0.4 L, Triglycerides 93, Cholesterol 57, LDL Cholesterol 16, VLDL Cholesterol 19, HDL Cholesterol 22 L, TSH 2.72, Free T4 1.05 05/24/22 05:18: Hemoglobin A1c 5.9 H 05/24/22 05:18: APTT 40.3 H 05/24/22 06:21: POC Glucose 238 H Micro: Microbiology 05/23/22 22:40 Mucosa - Nasopharyngeal Respiratory Panel (PCR) - Final Radiography Diagnostic Testing: Radiology Impression Chest X-Ray 05/23/22 18:52 IMPRESSION: 1. Question retrocardiac left lower lobe pneumonia. 2. Cardiomegaly. 3. Degenerative changes as above Electronically Signed: Carl Lantigua DO at 19:13 EST Reading Location ID and State: [facility] / [place] Tel [phone], Service support , Foot X-Ray 05/23/22 22:38 IMPRESSION: Normal x-ray examination of the foot. Electronically Signed: Carl Lantigua DO at 22:52 EST Reading [id number] [phone], Service support , Chest X-Ray 05/24/22 05:00 IMPRESSION: Low lung volumes limit the exam. Coarse opacities left lung base likely atelectasis but pneumonia cannot be completely excluded. Electronically Signed: Agustin Zamudio MD at 5:21 EST , Physical Exam Narrative Diminished pulses to bilateral feet, atrophic skin changes. Absent protective and light touch sensation no gross deformity noted stable gangrenous changes limited to distal left hallux. No acute signs of infection. Const alert and oriented x3 Assessment/Plan Assessment/Plan (1) Peripheral vascular disease, unspecified: CODE(S): I73.9 - Peripheral vascular disease, unspecified PLAN: Exam performed [facility] reviewed Arterial studies from 06/16 reviewed, demonstrate TBI 0.63 on Left. Repeat arterial studies ordered. Bilateral duplex orddered due to some edema Recommend dialy betadine dressing with DSD to left hallux recommend heel weightbearing in surgical shoe on left recommend vascular consult No surgical intervention planned at this time Will consider hallux amputation once definitive vascular status determined and patient medically stable (likely outpatient) In mean time will perform local wound care with frequent dressing change as there is no acute infection. Will plan to re-evaluate on 05/26/22. (2) Non-pressure chronic ulcer of other part of left foot with fat layer exposed: CODE(S): L97.522 - Non-pressure chronic ulcer of other part of left foot with fat layer exposed
--- NOTE | 2022-05-24 09:32 | CON.PCM.SX_ITS ---
Assessment & Plan Assessment/Plan (1) Peripheral vascular disease, unspecified: PLAN: -await PVR, suspect some element of PAD or has calcified vessels and unable to palpate pulses -toe wound does not appear infected, not source of his acute illness -would plan to defer any invasive testing until after he is recovered/as outpatient HPI Consult Data Date of Consult: 05/24/22 HPI Narrative HPI Narrative: HANS GLASS, is a 81 M who presents with malaise/fatigue/body aches and generalized weakness for several days. No F/C. He has a left great toe wound present for about a month after what he thinks he struck it on way to bed. No purulent drainage, pain has resolved, no erythema/edema. He was seeing Dr. Dhaliwal as outpatient who is also seeing him since admission. No prior known PAD or prior intervention. ANKIT with 5 L at night, no oxygen/inhalers during day. CAD with prior SC about 1 year ago. ESRD on HD. Hx DM Eliquis for a.[facility] Medical History Acute combined systolic (congestive) and diastolic (congestive) heart failure Acute respiratory failure with hypoxia and hypercapnia (12/30/19) Ambulates with cane Atherosclerotic heart disease of [place] coronary artery without angina pectoris Axillary adenopathy Chronic combined systolic and diastolic CHF (congestive heart failure) Chronic renal failure, stage 4 (severe) CPAP (continuous positive airway pressure) dependence Diabetic neuropathy associated with type 2 diabetes mellitus Easy bruising Essential (primary) hypertension Excessive bleeding Former smoker Hernia, umbilical, 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) History of edema History of non-ST elevation myocardial infarction (NSTEMI) (12/31/19) History of renal disease Hyperlipidemia Hyperphosphatemia Hypothyroidism Insulin dependent diabetes mellitus Iron deficiency anemia Ischemic cardiomyopathy Left atrial enlargement Longstanding persistent atrial fibrillation Morbid obesity 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 layer exposed Obstructive sleep apnea On home oxygen therapy Pseudoaneurysm of arteriovenous graft Pulmonary edema (12/30/19) Shortness of breath on exertion Type 2 diabetes mellitus Unsteady gait when walking Home Medications aspirin 81 mg tablet,delayed release 81 mg PO DAILY Check with primary doctor 07/17/15 [History Last Taken 01/06/20 08:00] amiodarone 200 mg tablet 200 mg PO DAILY 03/09/22 [History Last Taken Unknown] atorvastatin 40 mg tablet 40 mg PO QHS 03/09/22 [History Last Taken Unknown] ergocalciferol (vitamin D2) 50 mcg (2,000 unit) capsule 50 mcg PO .2X month 03/09/22 [History Last Taken Unknown] furosemide 40 mg tablet 40 mg PO DAILY Weight Gain 03/09/22 [History Last Taken Unknown] metoprolol succinate 25 mg tablet,extended release 24 hr 25 mg PO DAILY 03/09/22 [History Last Taken Unknown] midodrine 10 mg tablet 10 mg PO DAILY 03/09/22 [History Last Taken Unknown] sevelamer carbonate 800 mg tablet 1,600 mg PO TID supplement 03/09/22 [History Last Taken Unknown] tamsulosin 0.4 mg capsule 0.4 mg PO DAILY 03/09/22 [History Last Taken Unknown] apixaban 2.5 mg tablet (Eliquis) 2.5 mg PO BID #180 tabs 05/10/22 [Rx Last Taken Unknown] multivitamin 1 tab PO DAILY 05/13/22 [History Last Taken Unknown] polyethylene glycol 3350 17 gram oral powder packet (Miralax) 17 g PO DAILY 05/13/22 [History Last Taken Unknown] midodrine 10 mg tablet 10 mg PO MOWEFR BP 05/24/22 [History Last Taken Unknown] Allergy/AdvReac Type Severity Reaction Status Date / Time Penicillins AdvReac Severe Swelling Verified 05/23/22 17:54 Family History Father , age 79, of embolism CAD (coronary artery disease) Embolism Myocardial infarction Mother , age 74 Kidney disease renal failure Brother Kidney disease Sister Breast cancer Surgical History History of back surgery (01/2019) History of coronary artery stent placement (06/03/15) History of herniorrhaphy (09/2021) History of left heart catheterization (09/14/21) History of total right knee replacement History of total right knee replacement (TKR) S/P arteriovenous (AV) fistula creation Surgically created abdominal mucous fistula (09/2021) Social History household members: none Smoking Status: Former smoker how long ago did patient quit smokin second hand exposure: No alcohol intake: never substance use type: does not use ROS Constitutional Constitutional: Reports lethargy, malaise and weakness; Denies chills, fever(s) or frequent falls Eyes Eyes: Denies blind spots, change in vision or loss of vision ENT HEENT: Denies bleeding gums, hoarseness or sore throat Cardiovascular Cardiovascular: Denies abdominal pain, bluish discoloration of hand/feet, chest pain with activity, claudication, cold extremities, cyanosis, dyspnea on exertion, erythema on extremities, irregular heart rhythm, leg edema, leg ulcers, numbness in extremities or weakness in extremities Respiratory/Chest Respiratory/Chest: Denies cough, excessive phlegm production, shortness of breath at rest, shortness of breath with exertion or wheezing Gastrointestinal Gastrointestinal: Denies anorexia, change in stool character, constipation, diarrhea, melena or rectal bleeding Genitourinary Genitourinary: Reports hematuria; Denies dysuria Musculoskeletal Musculoskeletal: Denies abnormal gait Integumentary Integumentary: Reports non-healing lesions, wounds and other Details: left great toe dry gangrene ; Denies erythema Neurologic Neurologic: Denies abnormal speech, focal weakness, headache(s), loss of vision, numbness, paresthesias or sensory deficit Hematologic/Lymphatic Hematologic/Lymphatic: Denies easy bleeding, easy bruising or lymphadenopathy Physical Exam Const alert, oriented x3, no apparent distress and healthy appearing General Appearance: cooperative; Negative for combative or lethargic Orientation / Consciousness: awake Exam Limitations: no limitations HEENT Head and Scalp: normocephalic and atraumatic Eyes EOMs intact bilaterally General Eye: normal appearance of both eyes Neck full ROM, no lymphadenopathy and thyroid normal General: trachea midline; Negative for lymphadenopathy Thyroid: thyroid normal Lymph Lymphatic: Negative for no lymphadenopathy noted Resp normal respiratory effort and no use of accessory muscles Effort and Inspection: Negative for labored, stridor or audible wheezes Cardio regular rate and regular rhythm Peripheral Pulses: brachial pulses present and radial pulses present; Negative for femoral pulses present, popliteal pulses present, posterior tibial pulses present or dorsalis pedis pulses present GI non-tender and non-distended; Negative for hepatosplenomegaly Back/Spine Cervical Spine: cervical ROM normal Extremity full ROM, normal capillary refill and no clubbing, cyanosis or edema Skin no rashes or lesions noted and no wounds Neuro oriented x3, CN's II-XII intact bilaterally, no focal motor deficits and no sensory deficits noted Psych thought process normal, cooperative, affect normal, speech normal and activi ty/motor behavior normal Lab / Micro Data Result Diagrams: 05/23/22 18:16 05/24/22 05:18 Labs: Laboratory Results - last 24 hr 05/23/22 18:16: WBC 18.2 H, RBC 3.57 L, Hgb 11.1 L, Hct 34.4 L, MCV 96.4 H, MCH 31.1, MCHC 32.3, RDW Std Deviation 55.3 H, RDW Coeff of Moni 15.6 H, Plt Count 164, MPV 10.1, Immature Gran % (Auto) 1.000 H, Neut % (Auto) 90.3 H, Lymph % (Auto) 2.4 L, [place] % (Auto) 6.0, Eos % (Auto) 0.1, Baso % (Auto) 0.2, Absolute Neuts (auto) 16.4 H, Absolute Lymphs (auto) 0.43 L, Nucleated RBC % 0, Differential Comment 05/23/22 18:16: Sodium 128 L, Potassium 4.7, Chloride 85 L, Carbon Dioxide 27.0, Anion Gap 16 H, BUN 83 H, Creatinine 7.19 H, Estim Creat Clear Calc 8.06, Est GFR (MDRD) Af Amer 10 L, Est GFR (MDRD) Non-Af 8 L, BUN/Creatinine Ratio 11.5, Glucose 262 H, Calcium 10.3 H, Troponin I High Sens 1589 H* 05/23/22 18:16: Lactic Acid 3.1 H* 05/23/22 18:16: Magnesium 2.7 H 05/23/22 18:16: ESR 51 H 05/23/22 18:16: C-React Prot Ext Range 224.00 H 05/23/22 22:46: PT 19.7 H, INR 1.7, APTT 43.1 H 05/23/22 22:46: Procalcitonin 2.14 H 05/23/22 22:46: Troponin I High Sens 1489 H* 05/23/22 23:24: POC Glucose 238 H 05/23/22 23:59: Lactic Acid 2.0 05/24/22 02:15: Troponin I High Sens 1426 H* 05/24/22 05:18: Sodium 129 L, Potassium 5.0, Chloride 89 L, Carbon Dioxide 25.0, Anion Gap 15, BUN 88 H, Creatinine 7.35 H, Estim Creat Clear Calc 7.88, Est GFR (MDRD) Af Amer 9 L, Est GFR (MDRD) Non-Af 8 L, BUN/Creatinine Ratio 12.0, Glucose 224 H, Calcium 9.8, Total Bilirubin 0.40, AST 39 H, ALT 36, Alkaline Phosphatase 145 H, Total Protein 7.0, Albumin 2.1 L, Globulin 4.9 H, Albumin/Globulin Ratio 0.4 L, Triglycerides 93, Cholesterol 57, LDL Cholesterol 16, VLDL Cholesterol 19, HDL Cholesterol 22 L, TSH 2.72, Free T4 1.05 05/24/22 05:18: Hemoglobin A1c 5.9 H 05/24/22 05:18: APTT 40.3 H 05/24/22 06:21: POC Glucose 238 H Micro: Microbiology 05/23/22 22:40 Mucosa - Nasopharyngeal Respiratory Panel (PCR) - Final Radiology Impression Chest X-Ray 05/23/22 18:52 IMPRESSION: 1. Question retrocardiac left lower lobe pneumonia. 2. Cardiomegaly. 3. Degenerative changes as above Electronically Signed: Carl Lantigua DO at 19:13 EST Reading Location ID and State: [employer] [facility] [employer] Tel [phone], Service support , Foot X-Ray 05/23/22 22:38 IMPRESSION: Normal x-ray examination of the foot. Electronically Signed: Carl Lantigua DO at 22:52 EST Reading Location ID and State: [employer] [facility] / [place] Tel [phone], Service support , Chest X-Ray 05/24/22 05:00 IMPRESSION: Low lung volumes limit the exam. Coarse opacities left lung base likely atelectasis but pneumonia cannot be completely excluded. Electronically Signed: Agustin Zamudio MD at 5:21 EST , Charges/Coding Visit Charges Inpatient E&M: 48064 Init Hosp L2
[2022-05-24] MEDS: SEVELAMER CARBONATE 800 MG TABLET PO ×3 (10:54→17:00)
[2022-05-24] MEDS: Aspirin E.C. 81 MG Tablet PO (10:54)
[2022-05-24] MEDS: Multivitamins,Therapeutic Tablet 1 TABLET PO (10:54)
[2022-05-24] MEDS: Tamsulosin HCl 0.4 MG Capsule PO (10:54)
[2022-05-24] MEDS: Amiodarone 200 MG Tablet PO (10:54)
[2022-05-24] MEDS: APIXABAN 2.5 MG TABLET (WCH) PO ×2 (11:02→22:22)
--- NOTE | 2022-05-24 11:58 | WOUNDNOTE ---
wound photo: left great toe
[2022-05-24] MEDS: Insulin Lispro 100 UNIT/ML INSULN.PEN SC ×3 (12:12→22:22)
[2022-05-24 12:41] LABS: Absolute Lymphocyte Count 0.47 X10^3/uL (0.83-4.51); Absolute Neutrophil Count 16.3 X10^3/uL (2.0-7.7); Basophil# 0.05 X10^3/uL; Basophil% 0.3 % (0-1); Eosinophil# 0.02 X10^3/uL; Eosinophils% 0.1 % (0-5); Hemoglobin 10.8 g/dL (13.0-16.5); Lymphocyte # 0.47 X10^3/ul (0.83-4.51); Lymphocyte % 2.6 % (19-41); Mean Corp Hgb Conc 31.8 g/dL (32-36); Mean Corpuscular Hgb 30.6 pg (27.0-32.0); Mean Corpuscular Volume 96.3 fL (80-94); Mean Platelet Vol. 10.5 fl (6.2-12.0); Monocyte# 0.99 X10^3/uL; Monocyte% 5.5 % (0-10); NRBC Flagged by Analyzer 0 % (0-5); Neutrophil # 16.28 X10^3/uL (2.7-7.7); Neutrophil % 90.7 % (47-70); POSITIVE DIFFERENTIAL YES; Platelet Count 151 K/mm3 (150-450); RBC Distribution Width CV 15.9 % (11.6-14.6); Red Blood Count 3.53 M/mm3 (4.6-6.2)
[2022-05-24 12:42] LABS: Differential Indicated SCAN CRITERIA MET
[2022-05-24 12:50] LABS: Bedside Glucose 212 mg/dL (74-106)
--- NOTE | 2022-05-24 13:05 | CASEMGMT ---
RN CM Face to Face with patient for initial transition planning/care coordination assessment. RN CM introduced self and role at [facility]. Patient lying in bed, alert and oriented, at bedside. Patient willing to participate in assessment and is able to answer all questions appropriately. Care providers, pharmacy, and demographics verified. Patient wishes to discharge home but open to SNF placement for additional therapy, will monitor progress with therapy. Patient states he has no further needs or concerns at this time. CM to follow for discharge planning needs that may arise. PCP: [facility] Specialists: Dante, conflicts analyst; Karyn, toe former; Susan, file machine operator; Isra, ladle mechanic; Isatu, surgeon Preferred Pharmacy: [facility] Insurance: [facility], [employer] Prescription Benefit: yes Living Will/HPOA: yes, Leigh Ann Richey LNOK: , basil Living Arrangements: Patient lives with in a 2 story home with bed and bath on first floor. 5 steps and railing to enter the home. Transportation: DME/HHC: Patient has built in shower chair, raised toilet, grab bars, walker, cpap, pulse ox, oxygen with [employer] with portability, patient states he wears 5lpm at home, glucometer with supplies at home. No previous HHC or SNF. Patient attends outpatient HD at [facility] on MWF 06. Disposition Plan: TBD by course of treatment and progress with therapy. Anticipate HHC vs SNF. Janee THOMAS, RN, CM
[2022-05-24 13:17] LABS: Hypersegmented Neutrophils 1+
--- NOTE | 2022-05-24 14:56 | CON.PCM.RE_ITS ---
Assessment & Plan Assessment/Plan (1) ESRD (end stage renal disease): PLAN: On hemodialysis Tuesday, Tuesday, Tuesday schedule. Last dialysis was Tuesday. Currently has a left arm AV fistula for access. History of ischemic cardiomyopathy. Had coronary angiogram in the past and was not deemed to be a candidate for interventions. Repeat echocardiogram with further reduction in ejection fraction. He does have regional wall motion abnormalities as well. No plans for intervention as per cardiology. Lower extremity wound. Vascular surgery and podiatry have been consulted. Pneumonia. Currently on antibiotic coverage as per primary service Hypotension. Ongoing issue with hypotension. As outpatient he usually runs in the 90s. Takes midodrine before dialysis. Currently blood pressures are even lower. Likely due to worsening ejection fraction. Continue dialysis with midodrine as needed. Discussed with family at bedside. They did ask about home dialysis. He is not a candidate for peritoneal dialysis due to presence of hernia and in general not a candidate for general anesthesia. I did mention to them about home he modialysis but spouse is unable to place needles. HPI Consult Data Date of Consult: 05/24/22 HPI Narrative Reason for Consultation: ESRD HPI Narrative: HANS GLASS, is a 81 M who presents to the hospital with generalized weakness, shortness of breath. Nephrology on consultation in view of ESRD. On hemodialysis Tuesday, Tuesday, Tuesday schedule. No history of ischemic cardiomyopathy, had a previous coronary angiogram and he was not deemed to be a candidate for interventions at that time. Also has a foot wound, being seen by vascular surgery and podiatry. Currently somewhat sleepy. Seen on dialysis today. [facility] Medical History Acute combined systolic (congestive) and diastolic (congestive) heart failure Acute respiratory failure with hypoxia and hypercapnia (12/30/19) Ambulates with cane Atherosclerotic heart disease of [place] coronary artery without angina pectoris Axillary adenopathy Chronic combined systolic and diastolic CHF (congestive heart failure) Chronic renal failure, stage 4 (severe) CPAP (continuous positive airway pressure) dependence Diabetic neuropathy associated with type 2 diabetes mellitus Easy bruising Essential (primary) hypertension Excessive bleeding Former smoker Hernia, umbilical, 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) History of edema History of non-ST elevation myocardial infarction (NSTEMI) (12/31/19) History of renal disease Hyperlipidemia Hyperphosphatemia Hypothyroidism Insulin dependent diabetes mellitus Iron deficiency anemia Ischemic cardiomyopathy Left atrial enlargement Longstanding persistent atrial fibrillation Morbid obesity 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 layer exposed Obstructive sleep apnea On home oxygen therapy Pseudoaneurysm of arteriovenous graft Pulmonary edema (12/30/19) Shortness of breath on exertion Type 2 diabetes mellitus Unsteady gait when walking Home Medications aspirin 81 mg tablet,delayed release 81 mg PO DAILY Check with primary doctor 07/17/15 [History Last Taken 01/06/20 08:00] amiodarone 200 mg tablet 200 mg PO DAILY 03/09/22 [History Last Taken Unknown] atorvastatin 40 mg tablet 40 mg PO QHS 03/09/22 [History Last Taken Unknown] ergocalciferol (vitamin D2) 50 mcg (2,000 unit) capsule 50 mcg PO .2X month 03/09/22 [History Last Taken Unknown] furosemide 40 mg tablet 40 mg PO DAILY Weight Gain 03/09/22 [History Last Taken Unknown] metoprolol succinate 25 mg tablet,extended release 24 hr 25 mg PO DAILY 03/09/22 [History Last Taken Unknown] midodrine 10 mg tablet 10 mg PO DAILY 03/09/22 [History Last Taken Unknown] sevelamer carbonate 800 mg tablet 1,600 mg PO TID supplement 03/09/22 [History Last Taken Unknown] tamsulosin 0.4 mg capsule 0.4 mg PO DAILY 03/09/22 [History Last Taken Unknown] apixaban 2.5 mg tablet (Eliquis) 2.5 mg PO BID #180 tabs 05/10/22 [Rx Last Taken Unknown] multivitamin 1 tab PO DAILY 05/13/22 [History Last Taken Unknown] polyethylene glycol 3350 17 gram oral powder packet (Miralax) 17 g PO DAILY 05/13/22 [History Last Taken Unknown] midodrine 10 mg tablet 10 mg PO MOWEFR BP 05/24/22 [History Last Taken Unknown] Allergy/AdvReac Type Severity Reaction Status Date / Time Penicillins AdvReac Severe Swelling Verified 05/23/22 17:54 Family History Father , age 79, of embolism CAD (coronary artery disease) Embolism Myocardial infarction Mother , age 74 Kidney disease renal failure Brother Kidney disease Sister Breast cancer Surgical History History of back surgery (01/2019) History of coronary artery stent placement (06/03/15) History of herniorrhaphy (09/2021) History of left heart catheterization (09/14/21) History of total right knee replacement History of total right knee replacement (TKR) S/P arteriovenous (AV) fistula creation Surgically created abdominal mucous fistula (09/2021) Social History household members: none Smoking Status: Former smoker how long ago did patient quit smokin second hand exposure: No alcohol intake: never substance use type: does not use ROS ROS Narrative Negative except above Physical Exam Narrative no obvious distress no pallor no icterus no JVD s1s2 no murmurs lungs clear abdomen soft no organomegaly no edema no cyanosis Lab / Micro Data Result Diagrams: 05/24/22 05:18 05/24/22 05:18 Labs: Laboratory Results - last 24 hr 05/23/22 18:16: WBC 18.2 H, RBC 3.57 L, Hgb 11.1 L, Hct 34.4 L, MCV 96.4 H, MCH 31.1, MCHC 32.3, RDW Std Deviation 55.3 H, RDW Coeff of Moni 15.6 H, Plt Count 164, MPV 10.1, Immature Gran % (Auto) 1.000 H, Neut % (Auto) 90.3 H, Lymph % (Auto) 2.4 L, [place] % (Auto) 6.0, Eos % (Auto) 0.1, Baso % (Auto) 0.2, Absolute Neuts (auto) 16.4 H, Absolute Lymphs (auto) 0.43 L, Nucleated RBC % 0, Differential Comment 05/23/22 18:16: Sodium 128 L, Potassium 4.7, Chloride 85 L, Carbon Dioxide 27.0, Anion Gap 16 H, BUN 83 H, Creatinine 7.19 H, Estim Creat Clear Calc 8.06, Est GFR (MDRD) Af Amer 10 L, Est GFR (MDRD) Non-Af 8 L, BUN/Creatinine Ratio 11.5, Glucose 262 H, Calcium 10.3 H, Troponin I High Sens 1589 H* 05/23/22 18:16: Lactic Acid 3.1 H* 05/23/22 18:16: Magnesium 2.7 H 05/23/22 18:16: ESR 51 H 05/23/22 18:16: C-React Prot Ext Range 224.00 H 05/23/22 22:46: PT 19.7 H, INR 1.7, APTT 43.1 H 05/23/22 22:46: Procalcitonin 2.14 H 05/23/22 22:46: Troponin I High Sens 1489 H* 05/23/22 23:24: POC Glucose 238 H 05/23/22 23:59: Lactic Acid 2.0 05/24/22 02:15: Troponin I High Sens 1426 H* 05/24/22 05:18: WBC 18.0 H, RBC 3.53 L, Hgb 10.8 L, Hct 34.0 L, MCV 96.3 H, MCH 30.6, MCHC 31.8 L, RDW Std Deviation 56.0 H, RDW Coeff of Moni 15.9 H, Plt Count 151, MPV 10.5, Immature Gran % (Auto) 0.800, Neut % (Auto) 90.7 H, Lymph % (Auto) 2.6 L, [place] % (Auto) 5.5, Eos % (Auto) 0.1, Baso % (Auto) 0.3, Absolute Neuts (auto) 16.3 H, Absolute Lymphs (auto) 0.47 L, Nucleated RBC % 0, Diff Path Review August, Hypersegmented Neuts 1+ H 05/24/22 05:18: Sodium 129 L, Potassium 5.0, Chloride 89 L, Carbon Dioxide 25.0, Anion Gap 15, BUN 88 H, Creatinine 7.35 H, Estim Creat Clear Calc 7.88, Est GFR (MDRD) Af Amer 9 L, Est GFR (MDRD) Non-Af 8 L, BUN/Creatinine Ratio 12.0, Glucose 224 H, Calcium 9.8, Total Bilirubin 0.40, AST 39 H, ALT 36, Alkaline Phosphatase 145 H, Total Protein 7.0, Albumin 2.1 L, Globulin 4.9 H, Albumin/Globulin Ratio 0.4 L, Triglycerides 93, Cholesterol 57, LDL Cholesterol 16, VLDL Cholesterol 19, HDL Cholesterol 22 L, TSH 2.72, Free T4 1.05 05/24/22 05:18: Hemoglobin A1c 5.9 H 05/24/22 05:18: APTT 40.3 H 05/24/22 06:21: POC Glucose 238 H 05/24/22 12:10: POC Glucose 212 H Micro: Microbiology 05/23/22 19:10 Blood Culture (Wb) - Anticubital Right Bacteria Detection (PCR) - Final Staphylococcus aureus mecA Resistance Marker 05/23/22 19:10 Blood Culture (Wb) - Anticubital Right Blood Culture - Preliminary 05/23/22 18:16 Blood Culture (Wb) - Right Forearm Blood Culture - Preliminary 05/23/22 22:40 Mucosa - Nasopharyngeal Respiratory Panel (PCR) - Final Radiology Impression Chest X-Ray 05/23/22 18:52 IMPRESSION: 1. Question retrocardiac left lower lobe pneumonia. 2. Cardiomegaly. 3. Degenerative changes as above Electronically Signed: Carl Lantigua DO at 19:13 EST Reading Location ID and State: [facility] / [place] Tel [phone], Service support , Foot X-Ray 05/23/22 22:38 IMPRESSION: Normal x-ray examination of the foot. Electronically Signed: Carl Lantigua DO at 22:52 EST Reading Location ID and State: [facility] / [place] Tel [phone], Service support , Chest X-Ray 05/24/22 05:00 IMPRESSION: Low lung volumes limit the exam. Coarse opacities left lung base likely atelectasis but pneumonia cannot be completely excluded. Electronically Signed: Augstin Zamudio MD at 5:21 EST ,
--- NOTE | 2022-05-24 16:25 | DIALYSIS ---
Hemodialysis complete with 1 liter fluid removed. Pt tolerated treatment without difficulty. Stasis obtained after fistula needles removed. AV fistula remains positive for thrill and bruit.
--- NOTE | 2022-05-24 16:41 | CHAPLAIN ---
Type of Pastoral Visit _x__ Initial Visit ___ Follow-up Visit ___ On-call Visit ___ General Patient Visit ___ Spiritual Assessment ___ Family Conference ___ Bereavement ___ Rapid Response ___ Code Blue ___ Other (describe below) Pastoral Care Referral From _x__ Patient _x__ Family ___ Nurse ___ Physician ___ Knifer Up ___ Portal Architect ___ Other (describe below) Sacrament/Intervention _x__ Active listening ___ Anointing ___ Presybeterian ___ Bereavement ___ Communion ___ Augustina exploration ___ ___ Life review _x__ Prayer ___ Reconciliation ___ Sacrament of Sick _x__ Supportive presence ___ Wedding ___ Other (describe below) Pastoral Comments patient is receiving dialysis at this time; daughter is also in the room; pt reports having some falls and pains recently that brought him in; pt to have more tests or to hopeful to hear results; pt states that a nice prayer would be good; listening, presence, and support given
--- NOTE | 2022-05-24 16:55 | PCM.RX.CS ---
Consult Pharmacy has been consulted to manage selected antiobiotic: Vancomycin Type of Consult: New start Labs: Sodium 129 mmol/L (136-145) L 05/24/22 05:18 Potassium 5.0 mmol/L (3.5-5.1) 05/24/22 05:18 Chloride 89 mmol/L (98-107) L 05/24/22 05:18 Carbon Dioxide 25.0 mmol/L (21.0-32.0) 05/24/22 05:18 Anion Gap 15 (5-15) 05/24/22 05:18 BUN 88 mg/dL (7-18) H 05/24/22 05:18 Creatinine 7.35 mg/dL (0.70-1.30) H 05/24/22 05:18 Est GFR (MDRD) Af Amer 9 mL/min (>60) L 05/24/22 05:18 Est GFR (MDRD) Non-Af 8 mL/min (>60) L 05/24/22 05:18 BUN/Creatinine Ratio 12.0 RATIO (10-20) 05/24/22 05:18 Glucose 224 mg/dL (74-106) H 05/24/22 05:18 Microbiology: Microbiology 05/23/22 19:10 Blood Culture (Wb) - Anticubital Right Bacteria Detection (PCR) - Final Staphylococcus aureus mecA Resistance Marker 05/23/22 19:10 Blood Culture (Wb) - Anticubital Right Blood Culture - Preliminary 05/23/22 18:16 Blood Culture (Wb) - Right Forearm Blood Culture - Preliminary 05/23/22 22:40 Mucosa - Nasopharyngeal Respiratory Panel (PCR) - Final Goal Trough: 15-20 mcg/mL Pharmacy Plan for Drug Dosing: DAILY ASSESSMENT Current Vancomycin Dose: pt is on MWF dialysis schedule Number of Doses Received: pt received a 2000mg x1 dose on 05/23/22 at 2326 Current Renal Function: on MWF dialysis schedule Renal Function Trend: Lab/Micro: Any Change in Vanc Plan: pt received dialysis on 05/24/22. recommend a 750mg x1 dose of Vancomycin post dialysis. random level prior to next dialysis session Pending Level: random level 05/26/22 at 0600 Pharmacy Service will continue to monitor and adjust dosing as required. Follow-Up Labs: Trough Vancomycin - 05/26/22 at 0600 (random level)
--- NOTE | 2022-05-24 17:00 | NURSING ---
Pt completed dialysis at this time.
[2022-05-24 17:30] LABS: Bedside Glucose 161 mg/dL (74-106)
[2022-05-24] MEDS: Atorvastatin Calcium 40 MG Tablet PO (22:22)
[2022-05-25] VITALS (19 sets, daily range): BP systolic 74–94; BP diastolic 36–58; PULSE 61–79; RESP 16–24; TEMP 36.4–37.2; O2SAT 97–100
[2022-05-25 00:11] LABS: Bedside Glucose 198 mg/dL (74-106)
[2022-05-25] MEDS: Midodrine HCl 5 MG Tablet 10 MG PO ×3 (06:12→21:09)
[2022-05-25] MEDS: Insulin Lispro 100 UNIT/ML INSULN.PEN SC ×4 (06:16→22:44)
[2022-05-25 06:45] LABS: Absolute Lymphocyte Count 0.29 X10^3/uL (0.83-4.51); Basophil# 0.01 X10^3/uL; Basophil% 0.1 % (0-1); Eosinophil# 0.02 X10^3/uL; Eosinophils% 0.2 % (0-5); Hematocrit 30.3 % (40-54); Hemoglobin 9.9 g/dL (13.0-16.5); Lymphocyte # 0.29 X10^3/ul (0.83-4.51); Lymphocyte % 2.2 % (19-41); Mean Corp Hgb Conc 32.7 g/dL (32-36); Mean Corpuscular Hgb 31.1 pg (27.0-32.0); Mean Corpuscular Volume 95.3 fL (80-94); Mean Platelet Vol. 10.2 fl (6.2-12.0); Monocyte# 0.74 X10^3/uL; Monocyte% 5.6 % (0-10); NRBC Flagged by Analyzer 0 % (0-5); Neutrophil # 11.98 X10^3/uL (2.7-7.7); POSITIVE DIFFERENTIAL YES; Platelet Count 150 K/mm3 (150-450); RBC Distribution Width CV 15.8 % (11.6-14.6); RBC Distribution Width SD 55.2 fl (35.1-43.9); Red Blood Count 3.18 M/mm3 (4.6-6.2); White Blood Count 13.2 K/mm3 (4.4-11.0)
[2022-05-25 06:53] LABS: Differential Indicated SCAN CRITERIA MET
[2022-05-25 07:06] LABS: Differential Comment SCANNED
[2022-05-25 07:10] LABS: Bedside Glucose 183 mg/dL (74-106)
[2022-05-25] MEDS: Budesonide Respules 0.5 MG/2 ML AMPUL.NEB. INHALATION ×2 (07:18→19:08)
[2022-05-25 07:36] LABS: ALB/GLOB Ratio 0.4 RATIO (0.9-2.4); AST(SGOT) 60 U/L (15-37); Alanine Aminotransfer ALT/SGPT 43 U/L (16-61); Albumin, Serum 1.8 g/dL (3.2-5.0); Alkaline Phosphatase 154 U/L (45-117); Anion Gap 11 (5-15); BUN 58 mg/dL (7-18); BUN/Creat Ratio 11.2 RATIO (10-20); Calcium,Total 9.3 mg/dL (8.5-10.1); Chloride 95 mmol/L (98-107); Creatinine, Serum 5.18 mg/dL (0.70-1.30); EST Glomerular Filtration Rate 12 mL/min (>60); Est Glom Filt Rate - Afr Amer 14 mL/min (>60); Estimated Creatinine Clearance 11.19 ml/min; Globulin 4.5 g/dL (2.2-4.2); Glucose 170 mg/dL (74-106); Potassium 4.3 mmol/L (3.5-5.1); Protein, Total 6.3 g/dL (6.4-8.2); Sodium Level 133 mmol/L (136-145)
--- NOTE | 2022-05-25 08:18 | PN.CARD_ITS ---
Subjective Subjective Patient seen and evaluated. Appears to be stable. Objective Data Vital Signs: Vital Signs Temp Pulse Resp BP Pulse Ox O2 Del Method O2 Flow Rate 97.8 F 69 20 H 78/46 L 100 Nasal Cannula 5 05/25/22 06:44 05/25/22 06:44 05/25/22 06:44 05/25/22 06:44 05/25/22 06:44 05/25/22 06:44 05/25/22 06:44 FiO2 40 05/23/22 22:45 Oxygen Flow Rate (L/min) 5 Oxygen Delivery Method Nasal Cannula Weight: 214 lb 11.684 oz Body Mass Index (BMI) 32.7 Intake & Output: Intake and Output for Last 24 Hours 05/23/22 05/24/22 05/25/22 23:59 23:59 23:59 Intake Total 806.92 / 806.92 2045.00 / 2045.00 Output Total 1000 / 1000 0 / 0 Balance 806.92 / 806.92 1045.00 / 1045.00 0 / 0 Lab / Micro Data Result Diagrams: 05/25/22 05:24 05/25/22 05:24 Labs: Laboratory Results - last 24 hr 05/24/22 05:18: WBC 18.0 H, RBC 3.53 L, Hgb 10.8 L, Hct 34.0 L, MCV 96.3 H, MCH 30.6, MCHC 31.8 L, RDW Std Deviation 56.0 H, RDW Coeff of Moni 15.9 H, Plt Count 151, MPV 10.5, Immature Gran % (Auto) 0.800, Neut % (Auto) 90.7 H, Lymph % (Auto) 2.6 L, [place] % (Auto) 5.5, Eos % (Auto) 0.1, Baso % (Auto) 0.3, Absolute Neuts (auto) 16.3 H, Absolute Lymphs (auto) 0.47 L, Nucleated RBC % 0, Diff Path Review May , Hypersegmented Neuts 1+ H 05/24/22 12:10: POC Glucose 212 H 05/24/22 16:57: POC Glucose 161 H 05/24/22 21:44: POC Glucose 198 H 05/25/22 05:24: WBC 13.2 H, RBC 3.18 L, Hgb 9.9 L, Hct 30.3 L, MCV 95.3 H, MCH 31.1, MCHC 32.7, RDW Std Deviation 55.2 H, RDW Coeff of Moni 15.8 H, Plt Count 150, MPV 10.2, Immature Gran % (Auto) 0.900, Neut % (Auto) 91.0 H, Lymph % (Auto) 2.2 L, [place] % (Auto) 5.6, Eos % (Auto) 0.2, Baso % (Auto) 0.1, Absolute Neuts (auto) 12.0 H, Absolute Lymphs (auto) 0.29 L, Nucleated RBC % 0, Differential Comment SCANNED 05/25/22 05:24: Sodium 133 L, Potassium 4.3, Chloride 95 L, Carbon Dioxide 27.0, Anion Gap 11, BUN 58 H, Creatinine 5.18 H, Estim Creat Clear Calc 11.19, Est GFR (MDRD) Af Amer 14 L, Est GFR (MDRD) Non-Af 12 L, BUN/Creatinine Ratio 11.2, Glucose 170 H, Calcium 9.3, Total Bilirubin 0.40, AST 60 H, ALT 43, Alkaline Phosphatase 154 H, C-React Prot Ext Range 180.00 H, Total Protein 6.3 L, Albumin 1.8 L, Globulin 4.5 H, Albumin/Globulin Ratio 0.4 L 05/25/22 06:16: POC Glucose 183 H Micro: Microbiology 05/23/22 19:10 Blood Culture (Wb) - Anticubital Right Bacteria Detection (PCR) - Final Staphylococcus aureus mecA Resistance Marker 05/23/22 19:10 Blood Culture (Wb) - Anticubital Right Blood Culture - Preliminary 05/23/22 18:16 Blood Culture (Wb) - Right Forearm Blood Culture - Preliminary Cardiology Labs/Tests 05/24/22 05:18: WBC 18.0 H, RBC 3.53 L, Hgb 10.8 L, Hct 34.0 L, MCV 96.3 H, MCH 30.6, MCHC 31.8 L, Plt Count 151, MPV 10.5, Immature Gran % (Auto) 0.800, Neut % (Auto) 90.7 H, Lymph % (Auto) 2.6 L, [place] % (Auto) 5.5, Eos % (Auto) 0.1, Baso % (Auto) 0.3, Absolute Neuts (auto) 16.3 H, Nucleated RBC % 0 05/25/22 05:24: WBC 13.2 H, RBC 3.18 L, Hgb 9.9 L, Hct 30.3 L, MCV 95.3 H, MCH 31.1, MCHC 32.7, Plt Count 150, MPV 10.2, Immature Gran % (Auto) 0.900, Neut % (Auto) 91.0 H, Lymph % (Auto) 2.2 L, [place] % (Auto) 5.6, Eos % (Auto) 0.2, Baso % (Auto) 0.1, Absolute Neuts (auto) 12.0 H, Nucleated RBC % 0 05/25/22 05:24: Sodium 133 L, Potassium 4.3, Chloride 95 L, Carbon Dioxide 27.0, Anion Gap 11, BUN 58 H, Creatinine 5.18 H, Est GFR (MDRD) Af Amer 14 L, Est GFR (MDRD) Non-Af 12 L, BUN/Creatinine Ratio 11.2, Glucose 170 H, Calcium 9.3, Total Bilirubin 0.40 Rhythm: EKG: ECHO: Stress Test: Cardiac Cath: PCI: CT Surgery: Holter monitor: EPS: PPM: CXR: Chest CT Scan: Radiography Diagnostic Testing: Radiology Impression Echocardiogram 05/24/22 05:55 Interpretation Summary Normal LV size. Mild concentric left ventricular hypertrophy. Moderately severe segmental systolic dysfunction (see wall motion). The estimated ejection fraction is 30 %. The left atrium is severely enlarged. The right atrium is moderately enlarged. Unable to assess diastolic dysfunction due to arrhythmia. Mild (1+) tricuspid valve insufficiency. Contrast injection was performed. Ordering Physician: Cristy Jaffe Referring Physician: Masha Treviño Performed By: Emperatriz Aldana, RDCS, RVT Extremity Arterial Study 05/24/22 08:42 Interpretation Summary Right SCOTT 1.94, artificially elevated due to non-compressible vessels. Doppler/ PVR waveforms of the right leg mildly diminished low thigh and moderately diminished infrapopliteal. Left SCOTT not able to be obtained due to non-compressible vessels. Doppler/PVR waveforms of the left leg mildly diminished low thigh and moderately diminished infrapopliteal Ordering Physician: Gabriel Hurst Referring Physician: Masha Treviño Performed By: Danielle Betancur RDCS/KEANU Venous Doppler Study 05/24/22 08:43 Interpretation Summary Deep veins of the bilateral lower extremities are patent and compressible segmentally. There is no evidence of bilateral lower extremity deep vein thrombosis. The bilateral great saphenous veins appear patent and compressible segmentally. Ordering Physician: Gabriel Hurst Referring Physician: Masha Treviño M.D. Performed By: Janee Laguna RVT Physical Exam Const alert, oriented x3 and no apparent distress General Appearance: cooperative HEENT hearing grossly normal bilaterally Head and Scalp: atraumatic Eyes EOMs intact bilaterally Neck General: normal visual inspection Chest inspection of chest normal and palpation of chest normal Resp normal respiratory effort Auscultation: clear to auscultation bilaterally Cardio regular rate, S1 normal heart sound and S2 normal heart sound Jugular Venous Distention: JVD Rhythm: abnormal rhythm irregularly irregular GI normal to inspection, nondistended, normoactive bowel sounds Extremity normal capillary refill and no pedal edema Peripheral Pulses: Yes pulses 2+ throughout and femoral pulses present Skin no rashes or lesions noted Neuro oriented x3 and CN's II-XII intact bilaterally Psych Appearance: grossly normal and appropriate Assessment & Plan Assessment/Plan (1) Non-STEMI (non-ST elevated myocardial infarction): PLAN: He does have a recent episode of non-ST elevation myocardial infarction. He had undergone a cardiac catheterization in 2019 as well as in 2021 both of which determined severe disease as noted above but medical therapy was recommended as it did not appear that there were any good options for either bypass or PCI. * My opinion is that we should pursue the same approach at this time. * The reevaluation of his echocardiogram demonstrated an ejection fraction to be approximately 30% plus minus. Segmental wall motion abnormalities noted involving the apex. * We will continue to try and optimize his medical therapy. (2) History of coronary artery stent placement: PLAN: He does have a history of previous remote coronary artery stenting. This appears to have been evaluated less than a year ago and medical therapy was recommended. (3) Ischemic cardiomyopathy: PLAN: He does have evidence of ischemic cardiomyopathy. His ejection fraction was noted to be low. We can continue putting him on carvedilol but my suspicion is that it would drop his pressure too much. (4) Longstanding persistent atrial fibrillation: PLAN: He does have evidence of longstanding atrial fibrillation for which she remains on anticoagulation. His rate is controlled on the current medical therapy and no changes will be made with respect to the above. (5) Essential (primary) hypertension: PLAN: He does have a history of hypertension but his blood pressure has been low and the plan will be to continue the current medical therapy with intermittent use of midodrine for his blood pressure. (6) Chronic renal failure, stage 4 (severe): PLAN: He does have chronic renal failure and he will continue with dialysis
[2022-05-25] MEDS: SEVELAMER CARBONATE 800 MG TABLET PO ×3 (08:30→16:46)
[2022-05-25] MEDS: Multivitamins,Therapeutic Tablet 1 TABLET PO (08:30)
[2022-05-25] MEDS: Aspirin E.C. 81 MG Tablet PO (08:30)
[2022-05-25] MEDS: Amiodarone 200 MG Tablet PO (08:30)
[2022-05-25] MEDS: APIXABAN 2.5 MG TABLET (WCH) PO (08:30)
--- NOTE | 2022-05-25 09:07 | PN.HOSP_ITS ---
Subjective Subjective Feeling somewhat tired, better than he did on admission. Has been having some right knee pain and some back pain that he endorsed today Objective Data Objective Data Vital Signs: Vital Signs Temp Pulse Resp BP Pulse Ox O2 Del Method O2 Flow Rate 97.8 F 67 20 H 85/44 L 100 Room Air 4.5 05/25/22 06:44 05/25/22 08:32 05/25/22 07:18 05/25/22 08:29 05/25/22 07:18 05/25/22 08:32 05/25/22 07:18 FiO2 40 05/23/22 22:45 Oxygen Flow Rate (L/min) 4.5 Oxygen Delivery Method Room Air Weight: 97.4 kg Body Mass Index (BMI) 32.7 Intake & Output: Intake and Output for Last 24 Hours 05/23/22 05/24/22 05/25/22 23:59 23:59 23:59 Intake Total 806.92 / 806.92 2045.00 / 2045.00 Output Total 1000 / 1000 0 / 0 Balance 806.92 / 806.92 1045.00 / 1045.00 0 / 0 Lab / Micro Data Result Diagrams: 05/25/22 05:24 05/25/22 05:24 Labs: Laboratory Results - last 24 hr 05/24/22 05:18: WBC 18.0 H, RBC 3.53 L, Hgb 10.8 L, Hct 34.0 L, MCV 96.3 H, MCH 30.6, MCHC 31.8 L, RDW Std Deviation 56.0 H, RDW Coeff of Moni 15.9 H, Plt Count 151, MPV 10.5, Immature Gran % (Auto) 0.800, Neut % (Auto) 90.7 H, Lymph % (Auto) 2.6 L, [place] % (Auto) 5.5, Eos % (Auto) 0.1, Baso % (Auto) 0.3, Absolute Neuts (auto) 16.3 H, Absolute Lymphs (auto) 0.47 L, Nucleated RBC % 0, Diff Path Review May , Hypersegmented Neuts 1+ H 05/24/22 12:10: POC Glucose 212 H 05/24/22 16:57: POC Glucose 161 H 05/24/22 21:44: POC Glucose 198 H 05/25/22 05:24: WBC 13.2 H, RBC 3.18 L, Hgb 9.9 L, Hct 30.3 L, MCV 95.3 H, MCH 31.1, MCHC 32.7, RDW Std Deviation 55.2 H, RDW Coeff of Moni 15.8 H, Plt Count 150, MPV 10.2, Immature Gran % (Auto) 0.900, Neut % (Auto) 91.0 H, Lymph % (Auto) 2.2 L, [place] % (Auto) 5.6, Eos % (Auto) 0.2, Baso % (Auto) 0.1, Absolute Neuts (auto) 12.0 H, Absolute Lymphs (auto) 0.29 L, Nucleated RBC % 0, Differential Comment SCANNED 05/25/22 05:24: Sodium 133 L, Potassium 4.3, Chloride 95 L, Carbon Dioxide 27.0, Anion Gap 11, BUN 58 H, Creatinine 5.18 H, Estim Creat Clear Calc 11.19, Est GFR (MDRD) Af Amer 14 L, Est GFR (MDRD) Non-Af 12 L, BUN/Creatinine Ratio 11.2, Glucose 170 H, Calcium 9.3, Total Bilirubin 0.40, AST 60 H, ALT 43, Alkaline Phosphatase 154 H, C-React Prot Ext Range 180.00 H, Total Protein 6.3 L, Albumin 1.8 L, Globulin 4.5 H, Albumin/Globulin Ratio 0.4 L 05/25/22 06:16: POC Glucose 183 H Micro: Microbiology 05/23/22 19:10 Blood Culture (Wb) - Anticubital Right Bacteria Detection (PCR) - Final Staphylococcus aureus mecA Resistance Marker 05/23/22 19:10 Blood Culture (Wb) - Anticubital Right Blood Culture - Preliminary Meth. resistant Staph. aureus 05/23/22 18:16 Blood Culture (Wb) - Right Forearm Blood Culture - Preliminary Staphylococcus aureus 05/23/22 22:40 Mucosa - Nasopharyngeal Respiratory Panel (PCR) - Final Radiography Diagnostic Testing: Radiology Impression Echocardiogram 05/24/22 05:55 Interpretation Summary Normal LV size. Mild concentric left ventricular hypertrophy. Moderately severe segmental systolic dysfunction (see wall motion). The estimated ejection fraction is 30 %. The left atrium is severely enlarged. The right atrium is moderately enlarged. Unable to assess diastolic dysfunction due to arrhythmia. Mild (1+) tricuspid valve insufficiency. Contrast injection was performed. Ordering Physician: Cristy Jaffe Referring Physician: Masha Treviño Performed By: Emperatriz Aldana RDCS, RVT Extremity Arterial Study 05/24/22 08:42 Interpretation Summary Right SCOTT 1.94, artificially elevated due to non-compressible vessels. Doppler/PVR waveforms of the right leg mildly diminished low thigh and moderately diminished infrapopliteal. Left SCOTT not able to be obtained due to non-compressible vessels. Doppler/PVR waveforms of the left leg mildly diminished low thigh and moderately diminished infrapopliteal Ordering Physician: Gabriel Hurst Referring Physician: Masha Treviño Performed By: Danielle Betancur RDCS/RVT Venous Doppler Study 05/24/22 08:43 Interpretation Summary Deep veins of the bilateral lower extremities are patent and compressible segmentally. There is no evidence of bilateral lower extremity deep vein thrombosis. The bilateral great saphenous veins appear patent and compressible segmentally. Ordering Physician: Gabriel Hurst Referring Physician: Masha Treviño M.D. Performed By: Janee Laguna RVT Physical Exam Narrative General: Alert, oriented, no apparent distress HEENT: Atraumatic, normocephalic Eyes: Anicteric, normal conjunctiva, extraocular movements grossly intact Neck: Supple Respiratory: Somewhat diminished at the bases, normal respiratory effort Cardiovascular: Irregularly irregular GI: Soft, nontender, nondistended Extremities: No edema Musculoskeletal: Moving all extremities, right knee was not erythematous or tender while palpating Neuro: No overt focal neurological deficits Skin: Chronic bilateral lower extremity changes, has lesion on tip of left great toe Psych: Cooperative Assessment & Plan Assessment/Plan (1) Pneumonia: PLAN: Plan 81-year-old male with history of combined chronic diastolic and systolic CHF/ischemic cardiomyopathy, hypertension, ANKIT on CPAP, CAD status post PCI, type 2 diabetes mellitus with neuropathy, end-stage renal disease on hemodialysis, cirrhosis, chronic A. fib who presented 05/23 with 5 days of generalized weakness and recent intervention in left upper extremity secondary to pseudoaneurysm by Dr. Lunsford. Had fall about 4 days prior to presentation when he slid out of bed. EMS called at that time but given no injury or trauma he was not brought to the ED. Found to have NSTEMI in the ED and admitted. #MRSA bacteremia Unclear cause Both blood cultures positive for MRSA Has CRP of 224 and Pro-Wilbur of 2.16 X-ray of chest suggestive of pneumonia X-ray of toe unremarkable Podiatry consulted Echo already ordered Need to follow blood cultures to assure resolution 05/25: ID consulted. No vegetation seen on echo, CRP was 224 and is now 180. Orthopedics consulted due to right knee pain and x-ray did show moderate volume joint effusion. Thoracic MRI did not show any evidence of acute osteomyelitis or discitis. Right knee tapped and cultures are pending. Remains on vancomycin, blood cultures to be repeated today. 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 fib and evidence of old anterior and inferior infarct Echo requested Cardiology consulted Aspirin, statin Beta-carl with holding parameters Had cardiac catheterizations in 2019 as well as 2021 with severe disease but medical therapy was recommended as there did not appear to be a good option for bypass or PCI-medical management again recommended Eliquis held and transition to heparin drip in the event cardiac catheterization would be needed but given no cardiac cath Eliquis resumed 05/25: Spoke with cardiology, at this time medical management recommended #History of atrial fibrillation Eliquis was transitioned to heparin on admission due to NSTEMI but Eliquis to be resumed Continue on amiodarone, metoprolol #Generalized weakness, debility, falls PT/OT Likely will need placement on discharge #Chronic combined CHF/ischemic cardiomyopathy secondary to coronary artery disease status post PCI in 2015 On Lasix chronically as well as metoprolol Lasix held due to concern for dehydration 03/17/2022 echocardiogram with normal LV size, EF 35%, moderate segmental systolic dysfunction, severely enlarged LA, mild MVI, mild to moderate TVI, PASP 57 mmHg with moderate pulmonary hypertension, moderate focal AV calcification with contrast injection performed at that time with improvement of LV systolic function compared to previous echo. Given NSTEMI repeat echo has been ordered 05/25: Repeat echo with EF of 30% with moderately severe segmental systolic dysfunction #Type 2 diabetes mellitus with peripheral neuropathy Glucose checks and sliding scale insulin #End-stage renal disease on hemodialysis Follows with nephrology, last HD 2 days prior to admission Nephro consult Continue midodrine 05/25: Dialysis tomorrow #Cirrhosis of the liver based on documentation Very minimally elevated AST and ALP #DVT prophylaxis: Eliquis Time spent in the patient's overall evaluation,decision-making process, review of diagnostic data, adjustment of management, discussion with other providers, nursing nursing and ancillary staff involved in patient's care documentation, 40 minutes Charges/Coding Visit Charges Inpatient E&M: 58035 Subs Hosp L2
--- NOTE | 2022-05-25 09:30 | AVDS_ITS ---
Reason For Study: Pseudoaneuryms s/p thrombin injection LEFT Inflow, 172.1/95 cm/sec. Inflow, 1058 ml/min. Prox anastomosis, 353.5/109.7 cm/sec. Prox anastomosis, 910 ml/min. Prox graft, 108.2/37.6 cm/sec. Prox graft, 1117 ml/min. Mid graft, 103.3/29.7 cm/sec. Mid graft, 842.5 ml/min. Distal graft, 67.1/38.9 cm/sec. Distal graft, 516 ml/min. Outflow, 62.2/29.6 cm/sec. Outflow, 307.6 ml/min. S/P left upper extremity pseudoaneurym thrombin injection 05/19/22. Post injection pseudo measures 1.81 x 3.28 x 3.93 cm. No blood flow noted within the pseudoaneurysm, no neck visualized. VL/AV Fistula/Dialysis Graft Scan Interpretation Summary Thrombosed 1.8 x 3.3 x 3.9 cm pseudoaneurysm left upper arm. No area of active flow identified. This pseudoaneurysm is slightly smaller from previously 1.95 x 3.38 x 4.2 on May 20, 2022 Widely patent left upper arm brachial to cephalic arteriovenous anastomosis Proximal fistula suggest high flow and 1117 mm/min flow. The distal fistula demonstrates adequate 516 mm/min flow This aneurysm slightly smaller from the previous measurements of 1.81 x 3.28 x 3.93 cm as of May 20, 2022 Ordering Physician: Steve Dueñas Referring Physician: Masha Treviño M.D. Performed By: Janee Laguna RVT
[2022-05-25] MEDS: Tamsulosin HCl 0.4 MG Capsule PO (09:34)
--- NOTE | 2022-05-25 09:43 | CASEMGMT ---
Patient's left a voice mail for SAGE Weller regarding facilities in [place]. SW met with patient and his . SW introduced self and role at [facility]. After more discussion patient would like to go to a facility that does dialysis onsite. SW provided them with a list of some senior care facilities in [place] that have on site dialysis and some Acute Rehab Units that also have on site dialysis. CORTNEY explained we will need to see how he does with therapy. Emerald Nuñez [employer] [place]
[2022-05-25] MEDS: Acetaminophen 325 MG Tablet 650 MG PO (10:05)
--- NOTE | 2022-05-25 10:16 | MRI_ITS ---
STUDY: MRI THORACIC SPINE WITHOUT CONTRAST REASON FOR EXAM: Male, 81 years old. suspect osteo/discitis., BACK PAIN, WEAKNESS, FALLS TECHNIQUE: Standardized fat and water weighted pulse sequences were obtained in the sagittal and axial planes. COMPARISON: None. FINDINGS: Normal kyphosis of the thoracic spine. There is mild dextro scoliosis. No evidence for acute fracture or other significant bony pathology. There is mild multilevel disc space narrowing and minor endplate spurring . Multilevel disc degeneration without focal disc protrusion spinal stenosis or cord compression. Normal visualized thoracic cord. Normal conus medullaris that terminates at the . The soft tissue structures are unremarkable. MRI/Spine Thoracic (Routine) IMPRESSION: Mild scoliosis and degenerative changes.. No acute fracture or other significant bony pathology Diffuse disc degeneration without disc protrusion spinal stenosis or cord compression No evidence for acute osteomyelitis and discitis Electronically Signed: Nestor Corbett MD at 16:37 EST ,
--- NOTE | 2022-05-25 10:19 | PCM.CONS.GEN ---
Assessment & Plan Assessment/Plan (1) ESRD (end stage renal disease): (2) Pneumonia: (3) MRSA bacteremia: PLAN: Unclear source, could be from fistula procedure, gangrene of L hallux, or pneumonia. - TTE showed no veg, EF 30% - repeat bcx today to monitor for clearance - sputum cx pending. 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 Possible discitis/osteo/epidural abscess. - cont vanc/ceftriaxone for now. will follow, thank you HPI Consult Data Date of Consult: 05/25/22 HPI Narrative Reason for Consultation: mrsa bacteremia HPI Narrative: HANS GLASS, is a 81 M with h/o DM, CAD, CHF, ESRD on HD MWF via LUE fistula, and bilat knee replacements, presened 05/23 with 4-5 days weakness, fatigue, falls at home. Had procedure on LUE fistula about a week ago due to bleeding and pseudoaneurysm. No pain/swelling/rednes/drainage at fistula site. Stubbed L 1st toe a few weeks ago with discoloration, has been improving, seeing wound center. No fever or chills, no cough or SOB. C/o new R knee pain and upper back pain. Came to ED, admitted on vanc/ceftriaxone. Found to have MRSA bacteremia, feeling about the same this AM. Full ROS performed and neg except as noted above. FOR[facility]LY [facility] Medical History Acute combined systolic (congestive) and diastolic (congestive) heart failure Acute respiratory failure with hypoxia and hypercapnia (12/30/19) Ambulates with cane Atherosclerotic heart disease of [place] coronary artery without angina pectoris Axillary adenopathy Chronic combined systolic and diastolic CHF (congestive heart failure) Chronic renal failure, stage 4 (severe) CPAP (continuous positive airway pressure) dependence Diabetic neuropathy associated with type 2 diabetes mellitus Easy bruising Essential (primary) hypertension Excessive bleeding Former smoker Hernia, umbilical, 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) History of edema History of non-ST elevation myocardial infarction (NSTEMI) (09/07/20) History of renal disease Hyperlipidemia Hyperphosphatemia Hypothyroidism Insulin dependent diabetes mellitus Iron deficiency anemia Ischemic cardiomyopathy Left atrial enlargement Longstanding persistent atrial fibrillation Morbid obesity 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 layer exposed Obstructive sleep apnea On home oxygen therapy Pseudoaneurysm of arteriovenous graft Pulmonary edema (12/30/19) Shortness of breath on exertion Type 2 diabetes mellitus Unsteady gait when walking Home Medications aspirin 81 mg tablet,delayed release 81 mg PO DAILY Check with primary doctor 07/17/15 [History Last Taken 01/06/20 08:00] amiodarone 200 mg tablet 200 mg PO DAILY 03/09/22 [History Last Taken Unknown] atorvastatin 40 mg tablet 40 mg PO QHS 03/09/22 [History Last Taken Unknown] ergocalciferol (vitamin D2) 50 mcg (2,000 unit) capsule 50 mcg PO .2X month 03/09/22 [History Last Taken Unknown] furosemide 40 mg tablet 40 mg PO DAILY Weight Gain 03/09/22 [History Last Taken Unknown] metoprolol succinate 25 mg tablet,extended release 24 hr 25 mg PO DAILY 03/09/22 [History Last Taken Unknown] midodrine 10 mg tablet 10 mg PO DAILY 03/09/22 [History Last Taken Unknown] sevelamer carbonate 800 mg tablet 1,600 mg PO TID supplement 03/09/22 [History Last Taken Unknown] tamsulosin 0.4 mg capsule 0.4 mg PO DAILY 03/09/22 [History Last Taken Unknown] apixaban 2.5 mg tablet (Eliquis) 2.5 mg PO BID #180 tabs 05/10/22 [Rx Last Taken Unknown] multivitamin 1 tab PO DAILY 05/13/22 [History Last Taken Unknown] polyethylene glycol 3350 17 gram oral powder packet (Miralax) 17 g PO DAILY 05/13/22 [History Last Taken Unknown] midodrine 10 mg tablet 10 mg PO MOWEFR BP 05/24/22 [History Last Taken Unknown] Allergy/AdvReac Type Severity Reaction Status Date / Time Penicillins AdvReac Severe Swelling Verified 05/23/22 17:54 Family History Father , age 79, of embolism CAD (coronary artery disease) Embolism Myocardial infarction Mother , age 74 Kidney disease renal failure Brother Kidney disease Sister Breast cancer Surgical History History of back surgery (01/2019) History of coronary artery stent placement (06/03/15) History of herniorrhaphy (09/2021) History of left heart catheterization (09/14/21) History of total right knee replacement History of total right knee replacement (TKR) S/P arteriovenous (AV) fistula creation Surgically created abdominal mucous fistula (09/2021) Social History household members: none Smoking Status: Former smoker how long ago did patient quit smokin second hand exposure: No alcohol intake: never substance use type: does not use Physical Exam Const alert, oriented x3 and no apparent distress General Appearance: cooperative HEENT normocephalic and head/scalp atraumatic Eyes PERRL and EOMs intact bilaterally Neck supple and No nodes Resp normal air movement and clear to auscultation bilaterally Auscultation: diminished lung sounds Cardio Negative for regular rate or regular rhythm GI soft to palpation, non-tender and non-distended Extremity Extremity Narrative: R knee swelling, warmth, tenderness. Upper t-spine point tenderness. No other focal joint inflammation. Skin Skin Narrative: LUE fistula nontender, (+) thrill. No splinter hemorrhages on fingers. L 1st toe with dry gangrene. Neuro CN's II-XII intact bilaterally Lab / Micro Data Attestation: I reviewed the patient's lab results. Result Diagrams: 05/25/22 05:24 05/25/22 05:24 Labs: Laboratory Results - last 24 hr 05/24/22 05:18: WBC 18.0 H, RBC 3.53 L, Hgb 10.8 L, Hct 34.0 L, MCV 96.3 H, MCH 30.6, MCHC 31.8 L, RDW Std Deviation 56.0 H, RDW Coeff of Moni 15.9 H, Plt Count 151, MPV 10.5, Immature Gran % (Auto) 0.800, Neut % (Auto) 90.7 H, Lymph % (Auto) 2.6 L, [place] % (Auto) 5.5, Eos % (Auto) 0.1, Baso % (Auto) 0.3, Absolute Neuts (auto) 16.3 H, Absolute Lymphs (auto) 0.47 L, Nucleated RBC % 0, Diff Path Review May foll, Hypersegmented Neuts 1+ H 05/24/22 12:10: POC Glucose 212 H 05/24/22 16:57: POC Glucose 161 H 05/24/22 21:44: POC Glucose 198 H 05/25/22 05:24: WBC 13.2 H, RBC 3.18 L, Hgb 9.9 L, Hct 30.3 L, MCV 95.3 H, MCH 31.1, MCHC 32.7, RDW Std Deviation 55.2 H, RDW Coeff of Moni 15.8 H, Plt Count 150, MPV 10.2, Immature Gran % (Auto) 0.900, Neut % (Auto) 91.0 H, Lymph % (Auto) 2.2 L, [place] % (Auto) 5.6, Eos % (Auto) 0.2, Baso % (Auto) 0.1, Absolute Neuts (auto) 12.0 H, Absolute Lymphs (auto) 0.29 L, Nucleated RBC % 0, Differential Comment SCANNED 05/25/22 05:24: Sodium 133 L, Potassium 4.3, Chloride 95 L, Carbon Dioxide 27.0, Anion Gap 11, BUN 58 H, Creatinine 5.18 H, Estim Creat Clear Calc 11.19, Est GFR (MDRD) Af Amer 14 L, Est GFR (MDRD) Non-Af 12 L, BUN/Creatinine Ratio 11.2, Glucose 170 H, Calcium 9.3, Total Bilirubin 0.40, AST 60 H, ALT 43, Alkaline Phosphatase 154 H, C-React Prot Ext Range 180.00 H, Total Protein 6.3 L, Albumin 1.8 L, Globulin 4.5 H, Albumin/Globulin Ratio 0.4 L 05/25/22 06:16: POC Glucose 183 H Micro: Microbiology 05/23/22 19:10 Blood Culture (Wb) - Anticubital Right Bacteria Detection (PCR) - Final Staphylococcus aureus mecA Resistance Marker 05/23/22 19:10 Blood Culture (Wb) - Anticubital Right Blood Culture - Preliminary Meth. resistant Staph. aureus 05/23/22 18:16 Blood Culture (Wb) - Right Forearm Blood Culture - Preliminary Staphylococcus aureus Radiology Impression Echocardiogram 05/24/22 05:55 Interpretation Summary Normal LV size. Mild concentric left ventricular hypertrophy. Moderately severe segmental systolic dysfunction (see wall motion). The estimated ejection fraction is 30 %. The left atrium is severely enlarged. The right atrium is moderately enlarged. Unable to assess diastolic dysfunction due to arrhythmia. Mild (1+) tricuspid valve insufficiency. Contrast injection was performed. Ordering Physician: Cristy Jaffe Referring Physician: Masha Treviño Performed By: Emperatriz Aldana RDCS, RVT Extremity Arterial Study 05/24/22 08:42 Interpretation Summary Right SCOTT 1.94, artificially elevated due to non-compressible vessels. Doppler/PVR waveforms of the right leg mildly diminished low thigh and moderately diminished infrapopliteal. Left SCOTT not able to be obtained due to non-compressible vessels. Doppler/PVR waveforms of the left leg mildly diminished low thigh and moderately diminished infrapopliteal Ordering Physician: Gabriel Hurst Referring Physician: Masha Treviño Performed By: Danielle Betancur RDCS/RVT Venous Doppler Study 05/24/22 08:43 Interpretation Summary Deep veins of the bilateral lower extremities are patent and compressible segmentally. There is no evidence of bilateral lower extremity deep vein thrombosis. The bilateral great saphenous veins appear patent and compressible segmentally. Ordering Physician: Gabriel Hurst Referring Physician: Masha Treviño M.D. Performed By: Janee Laguna RVT
[2022-05-25 11:45] LABS: Bedside Glucose 281 mg/dL (74-106)
[2022-05-25 12:23] LABS: Pathologist Review Reviewed
--- NOTE | 2022-05-25 12:25 | RAD_ITS ---
STUDY: XR Knee 1 or 2 Views 05/25/2022 4:51 PM REASON FOR EXAM: Male, 81 years old. 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 Normal visualized proximal tibia and fibula. Normal proximal tibiofibular articulation. There are atherosclerotic vascular calcifications. Normal medial femorotibial compartment. Normal lateral femorotibial compartment. Normal patellofemoral articulation. There is a moderate volume joint effusion. The soft tissue structures are unremarkable. RAD/Knee 1 or 2 Views IMPRESSION: There is a moderate volume joint effusion. Electronically Signed: Pierre Carrion MD at 16:53 EST ,
--- NOTE | 2022-05-25 14:35 | CON.PCM.OR_ITS ---
HPI Consult Data Date of Consult: 05/25/22 HPI Narrative Reason for Consultation: Right knee pain HPI Narrative: HANS GLASS, is a 81 M with significant medical comorbidities including chronic kidney failure requiring dialysis who presents right knee pain. Patient has had multiple ultrasound-guided procedures on his fistula with the general surgeon. First 1 was done May 17 second 1 was done on May 19 additionally he is recently been treated for a left toe wound in the wound center initially with doxycycline Neosporin currently he is doing Neosporin dressing changes with a relatively benign ulcer at this time. However patient reports that 6 days ago he started to feel weak. He fell off the toilet last Tuesday. He began to get weaker and weaker and fell while walking around his room on Tuesday. After the fall on Tuesday he had increased right knee pain. He presented to the emergency department after this fall and was found to have MRSA positive bacteremia. Initially he was being treated for pneumonia. Further evaluation of the toe was done no evidence of osteomyelitis was appreciated. Overall the wound appears to be benign however it is open with an eschar at this time. Despite treatments with ceftriaxone and vancomycin patient continued to be bacteremic. He also had progressive right knee pain since his fall on Tuesday. When I entered the room today he was just finishing up with therapy. He is unable to bear weight based on his therapy assessment. He has pain with range of motion and he has a large swollen knee with increased warmth. There is minimal erythema or redness as report from the patient. Physical examinations up-to-date did not note the swelling of the knee or associated knee pain. He denies any problems with his left knee at this time. Patient had the total knee replacement done in 2004 without any postoperative complications or any significant issues up until now. He is on chronic anticoagulation (Eliquis) for atrial fibrillation. [facility] Medical History Acute combined systolic (congestive) and diastolic (congestive) heart failure Acute respiratory failure with hypoxia and hypercapnia (12/30/19) Ambulates with cane Atherosclerotic heart disease of [place] coronary artery without angina pectoris Axillary adenopathy Chronic combined systolic and diastolic CHF (congestive heart failure) Chronic renal failure, stage 4 (severe) CPAP (continuous positive airway pressure) dependence Diabetic neuropathy associated with type 2 diabetes mellitus Easy bruising Essential (primary) hypertension Excessive bleeding Former smoker Hernia, umbilical, 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) History of edema History of non-ST elevation myocardial infarction (NSTEMI) (12/31/19) History of renal disease Hyperlipidemia Hyperphosphatemia Hypothyroidism Insulin dependent diabetes mellitus Iron deficiency anemia Ischemic cardiomyopathy Left atrial enlargement Longstanding persistent atrial fibrillation Morbid obesity 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 layer exposed Obstructive sleep apnea On home oxygen therapy Pseudoaneurysm of arteriovenous graft Pulmonary edema (12/30/19) Shortness of breath on exertion Type 2 diabetes mellitus Unsteady gait when walking Home Medications aspirin 81 mg tablet,delayed release 81 mg PO DAILY Check with primary doctor 07/17/15 [History Last Taken 01/06/20 08:00] amiodarone 200 mg tablet 200 mg PO DAILY 03/09/22 [History Last Taken Unknown] atorvastatin 40 mg tablet 40 mg PO QHS 03/09/22 [History Last Taken Unknown] ergocalciferol (vitamin D2) 50 mcg (2,000 unit) capsule 50 mcg PO .2X month 03/09/22 [History Last Taken Unknown] furosemide 40 mg tablet 40 mg PO DAILY Weight Gain 03/09/22 [History Last Taken Unknown] metoprolol succinate 25 mg tablet,extended release 24 hr 25 mg PO DAILY 03/09/22 [History Last Taken Unknown] midodrine 10 mg tablet 10 mg PO DAILY 03/09/22 [History Last Taken Unknown] sevelamer carbonate 800 mg tablet 1,600 mg PO TID supplement 03/09/22 [History Last Taken Unknown] tamsulosin 0.4 mg capsule 0.4 mg PO DAILY 03/09/22 [History Last Taken Unknown] apixaban 2.5 mg tablet (Eliquis) 2.5 mg PO BID #180 tabs 05/10/22 [Rx Last Taken Unknown] multivitamin 1 tab PO DAILY 05/13/22 [History Last Taken Unknown] polyethylene glycol 3350 17 gram oral powder packet (Miralax) 17 g PO DAILY 05/13/22 [History Last Taken Unknown] midodrine 10 mg tablet 10 mg PO MOWEFR BP 05/24/22 [History Last Taken Unknown] Allergy/AdvReac Type Severity Reaction Status Date / Time Penicillins AdvReac Severe Swelling Verified 05/23/22 17:54 Family History Father , age 79, of embolism CAD (coronary artery disease) Embolism Myocardial infarction Mother , age 74 Kidney disease renal failure Brother Kidney disease Sister Breast cancer Surgical History History of back surgery (01/2019) History of coronary artery stent placement (06/03/15) History of herniorrhaphy (09/2021) History of left heart catheterization (09/14/21) History of total right knee replacement History of total right knee replacement (TKR) S/P arteriovenous (AV) fistula creation Surgically created abdominal mucous fistula (09/2021) Social History household members: none Smoking Status: Former smoker how long ago did patient quit smokin second hand exposure: No alcohol intake: never substance use type: does not use ROS Constitutional Constitutional: Reports as per HPI Eyes Eyes: Reports as per HPI ENT HEENT: Reports as per HPI Cardiovascular Cardiovascular: Reports as per HPI Respiratory/Chest Respiratory/Chest: Reports as per HPI Gastrointestinal Gastrointestinal: Reports as per HPI Genitourinary Genitourinary: Reports as per HPI Musculoskeletal Musculoskeletal: Reports as per HPI Integumentary Integumentary: Reports as per HPI Neurologic Neurologic: Reports as per HPI Psychiatric Psychiatric: Reports as per HPI Vital Signs Vital Signs Vital Signs: 05/24/22 15:51 05/24/22 16:24 05/24/22 17:00 Temperature 98.8 F Temperature Source Oral Oral Pulse Rate 63 73 Pulse Strength Respiratory Rate 21 H 18 Respiratory Effort Normal Non-Labored Respiratory Depth Normal Respiratory Pattern Normal Blood Pressure 92/43 L 95/48 L Blood Pressure [BP] Blood Pressure Mean 59 63 Blood Pressure Mean [BP] Blood Pressure Source Monitor Monitor Blood Pressure Source [BP] Blood Pressure Position Semi-Fowlers Blood Pressure Position [BP] Blood Pressure Location Right Arm Right Arm Blood Pressure Location [BP] Pulse Ox 100 96 Oxygen Delivery Method Nasal Cannula Nasal Cannula Nasal Cannula Oxygen Flow Rate (L/min) 5 5 05/24/22 19:25 05/24/22 22:00 05/24/22 22:26 Temperature 98.3 F Temperature Source Oral Pulse Rate 69 71 Pulse Strength Weak (1+) Respiratory Rate 19 H 22 H Respiratory Effort Respiratory Depth Respiratory Pattern Normal Blood Pressure 90/50 L Blood Pressure [BP] Blood Pressure Mean 63 Blood Pressure Mean [BP] Blood Pressure Source Monitor Blood Pressure Source [BP] Blood Pressure Position Semi-Fowlers Blood Pressure Position [BP] Blood Pressure Location Right Arm Blood Pressure Location [BP] Pulse Ox 96 Oxygen Delivery Method CPAP Oxygen Flow Rate (L/min) 5 05/24/22 22:00 05/24/22 23:45 05/25/22 00:47 Temperature 98.0 F Temperature Source Oral Pulse Rate 71 79 Pulse Strength Respiratory Rate 25 H 23 H Respiratory Effort Normal Non-Labored Respiratory Depth Normal Respiratory Pattern Normal Blood Pressure Blood Pressure [BP] 92/50 L 80/36 L Blood Pressure Mean Blood Pressure Mean [BP] 64 50 Blood Pressure Source Blood Pressure Source [BP] Monitor Monitor Blood Pressure Position Blood Pressure Position [BP] Semi-Fowlers Semi-Fowlers Blood Pressure Location Blood Pressure Location [BP] Right Arm Right Arm Pulse Ox 94 100 Oxygen Delivery Method CPAP CPAP CPAP Oxygen Flow Rate (L/min) 5 5 05/25/22 01:50 05/25/22 01:50 05/25/22 03:13 Temperature Temperature Source Pulse Rate 77 70 Pulse Strength Respiratory Rate 22 H 21 H Respiratory Effort Respiratory Depth Respiratory Pattern Blood Pressure Blood Pressure [BP] 86/38 L 90/48 L Blood Pressure Mean Blood Pressure Mean [BP] 54 62 Blood Pressure Source Blood Pressure Source [BP] Monitor Monitor Blood Pressure Position Blood Pressure Position [BP] Semi-Fowlers Semi-Fowlers Blood Pressure Location Blood Pressure Location [BP] Right Arm Left Arm Pulse Ox 100 100 Oxygen Delivery Method CPAP CPAP CPAP Oxygen Flow Rate (L/min) 5 05/25/22 04:06 05/25/22 05:40 05/25/22 06:44 Temperature 97.8 F Temperature Source Oral Pulse Rate 78 74 69 Pulse Strength Respiratory Rate 23 H 24 H 20 H Respiratory Effort Respiratory Depth Respiratory Pattern Blood Pressure Blood Pressure [BP] 84/46 L 90/42 L 78/46 L Blood Pressure Mean Blood Pressure Mean [BP] 58 58 56 Blood Pressure Source Blood Pressure Source [BP] Monitor Monitor Monitor Blood Pressure Position Blood Pressure Position [BP] Semi-Fowlers Semi-Fowlers Semi-Fowlers Blood Pressure Location Blood Pressure Location [BP] Right Arm Left Arm Right Arm Pulse Ox 100 100 100 Oxygen Delivery Method CPAP CPAP Nasal Cannula Oxygen Flow Rate (L/min) 5 05/25/22 07:18 05/25/22 07:18 05/25/22 08:29 Temperature Temperature Source Pulse Rate 75 69 Pulse Strength Respiratory Rate 20 H Respiratory Effort Respiratory Depth Respiratory Pattern Blood Pressure 85/44 L Blood Pressure [BP] Blood Pressure Mean Blood Pressure Mean [BP] Blood Pressure Source Blood Pressure Source [BP] Blood Pressure Position Blood Pressure Position [BP] Blood Pressure Location Blood Pressure Location [BP] Pulse Ox 100 Oxygen Delivery Method Nasal Cannula Oxygen Flow Rate (L/min) 4.5 05/25/22 08:32 05/25/22 10:00 05/25/22 08:00 Temperature 98.0 F Temperature Source Oral Pulse Rate 67 65 Pulse Strength Respiratory Rate 16 Respiratory Effort Normal Non-Labored Normal Non-Labored Respiratory Depth Normal Respiratory Pattern Normal Blood Pressure 85/44 L Blood Pressure [BP] Blood Pressure Mean 57 Blood Pressure Mean [BP] Blood Pressure Source Monitor Blood Pressure Source [BP] Blood Pressure Position Semi-Fowlers Blood Pressure Position [BP] Blood Pressure Location Right Arm Blood Pressure Location [BP] Pulse Ox 100 Oxygen Delivery Method Room Air Room Air Nasal Cannula Oxygen Flow Rate (L/min) 3 05/25/22 10:00 05/25/22 12:00 Temperature 98.0 F 97.9 F Temperature Source Oral Oral Pulse Rate 68 68 Pulse Strength Respiratory Rate 18 16 Respiratory Effort Respiratory Depth Respiratory Pattern Blood Pressure 75/48 L 74/38 L Blood Pressure [BP] Blood Pressure Mean 57 50 Blood Pressure Mean [BP] Blood Pressure Source Monitor Monitor Blood Pressure Source [BP] Blood Pressure Position Semi-Fowlers Semi-Fowlers Blood Pressure Position [BP] Blood Pressure Location Right Arm Right Arm Blood Pressure Location [BP] Pulse Ox 100 100 Oxygen Delivery Method Room Air Room Air Oxygen Flow Rate (L/min) Weight Weight: 214 lb 11.684 oz Body Mass Index (BMI) 32.7 Physical Exam Const alert, oriented x3 and no apparent distress General Appearance: cooperative HEENT normocephalic Eyes PERRL Neck no JVD Resp normal respiratory effort Resp Narrative: On 5 L of oxygen Cardio Cardio Narrative: Faint distal pulses. GI non-distended Extremity Extremity Narrative: Right lower extremity: Patient has chronic peripheral vascular disease skin changes distally. There is some discoloration over the knee. There is a well- healed anterior incision. 15 degree flexion contracture. Pain with range of motion passively. Large effusion. Positive warmth. Neurovascular intact distally. No erythema appreciated. Left lower extremity: Incision is clean dry and intact. Moves knee without significant pain. Neurovascularly intact distally. 2 cm ulceration over the medial aspect of the great toe with eschar and minimal surrounding erythema. Skin Skin Narrative: See extremity exam Psych affect normal Medical Records Data Attestation: I reviewed the patient's medical records Lab / Micro Data Result Diagrams: 05/25/22 05:24 05/25/22 05:24 Labs: Laboratory Results - last 24 hr 05/24/22 05:18: Diff Path Review Reviewed 05/24/22 16:57: POC Glucose 161 H 05/24/22 21:44: POC Glucose 198 H 05/25/22 05:24: WBC 13.2 H, RBC 3.18 L, Hgb 9.9 L, Hct 30.3 L, MCV 95.3 H, MCH 31.1, MCHC 32.7, RDW Std Deviation 55.2 H, RDW Coeff of Moni 15.8 H, Plt Count 150, MPV 10.2, Immature Gran % (Auto) 0.900, Neut % (Auto) 91.0 H, Lymph % (Auto) 2.2 L, [place] % (Auto) 5.6, Eos % (Auto) 0.2, Baso % (Auto) 0.1, Absolute Neuts (auto) 12.0 H, Absolute Lymphs (auto) 0.29 L, Nucleated RBC % 0, Differential Comment SCANNED 05/25/22 05:24: Sodium 133 L, Potassium 4.3, Chloride 95 L, Carbon Dioxide 27.0, Anion Gap 11, BUN 58 H, Creatinine 5.18 H, Estim Creat Clear Calc 11.19, Est GFR (MDRD) Af Amer 14 L, Est GFR (MDRD) Non-Af 12 L, BUN/Creatinine Ratio 11.2, Glucose 170 H, Calcium 9.3, Total Bilirubin 0.40, AST 60 H, ALT 43, Alkaline Phosphatase 154 H, C-React Prot Ext Range 180.00 H, Total Protein 6.3 L, Albumin 1.8 L, Globulin 4.5 H, Albumin/Globulin Ratio 0.4 L 05/25/22 06:16: POC Glucose 183 H 05/25/22 11:22: POC Glucose 281 H Micro: Microbiology 05/24/22 19:25 Sputum, Expectorated/Coughed Gram Stain - Final 05/23/22 19:10 Blood Culture (Wb) - Anticubital Right Bacteria Detection (PCR) - Final Staphylococcus aureus mecA Resistance Marker 05/23/22 19:10 Blood Culture (Wb) - Anticubital Right Blood Culture - Preliminary Meth. resistant Staph. aureus 05/23/22 18:16 Blood Culture (Wb) - Right Forearm Blood Culture - Preliminary Staphylococcus aureus Radiology Impression Echocardiogram 05/24/22 05:55 Interpretation Summary Normal LV size. Mild concentric left ventricular hypertrophy. Moderately severe segmental systolic dysfunction (see wall motion). The estimated ejection fraction is 30 %. The left atrium is severely enlarged. The right atrium is moderately enlarged. Unable to assess diastolic dysfunction due to arrhythmia. Mild (1+) tricuspid valve insufficiency. Contrast injection was performed. Ordering Physician: Cristy Jaffe Referring Physician: Masha Treviño Performed By: Emperatriz Aldana RDCS, RVT Extremity Arterial Study 05/24/22 08:42 Interpretation Summary Right SCOTT 1.94, artificially elevated due to non-compressible vessels. Doppler/PVR waveforms of the right leg mildly diminished low thigh and moderately diminished infrapopliteal. Left SCOTT not able to be obtained due to non-compressible vessels. Doppler/PVR waveforms of the left leg mildly diminished low thigh and moderately diminished infrapopliteal Ordering Physician: Gabriel Hurst Referring Physician: Masha Treviño Performed By: Danielle Betancur RDCS/RVT Venous Doppler Study 05/24/22 08:43 Interpretation Summary Deep veins of the bilateral lower extremities are patent and compressible segmentally. There is no evidence of bilateral lower extremity deep vein thrombosis. The bilateral great saphenous veins appear patent and compressible segmentally. Ordering Physician: Gabriel Hurst Referring Physician: Masha Treviño M.D. Performed By: Janee Laguna RVT X-rays of the right knee were reviewed showing stable well aligned well fixed right total knee replacement. Left toe x-rays were also reviewed showing no evidence of osteomyelitis at this time. Assessment & Plan Assessment/Plan (1) Infection of total right knee replacement: PLAN: Natural history of the disease process and treatment options were discussed with the patient and family. Timeline does not support the total knee as the source of the infection as the symptoms came on after his general weakness and malaise occurred. However, I explained this is not necessarily a perfect correlation. However, I do believe the periprosthetic joint infection is inhibiting his ability to clear bacteremia as there is limited antibiotic delivery to the joint itself. Based on the timeline of the symptoms and the effusion of the knee I recommended an aspiration. Procedure will be noted below. We were able to aspirate 45 mL of purulent fluid from the knee. Based on this I recommended further analysis but to proceed with surgical intervention in a timely manner. Patient will be made n.p.o. overnight. We will plan to proceed with surgery tomorrow. Risk and benefits of procedure as well as available procedure were discussed with the patient and family. We discussed two-stage revision, 1.5 stage revision and polyethylene exchange with irrigation debridement of the joint. Based on patient's current health and the acute nature of the effusion and symptoms I recommended polyethylene exchange and retaining of implants at this time. Patient understands with MRSA there is a significant risk of failure however there is significant risk of wound complications based on his kidney failure and other complications related to multiple or more aggressive surgeries. Based on this with his daughter at the bedside we have elected to proceed with the irrigation debridement with retaining of implants. Patient will require IV antibiotics postoperatively with likely prolonged oral antibiotics and may be chronic suppression of antibiotics depending on infectious disease determination. Risks and benefits of the procedure included but were not limited to blood loss, DVTs, PEs, nervous damage, infection, the risk of anesthesia including loss of life. Additionally failure to clear infection could result in multiple debridements and loss of extremity. Patient understands that his chronic renal disease with dialysis places him at greater risk for immunocompromisation. Procedure: On date of procedure Timeout was called and the patient's identity was verified and the procedure was explained to the patient. The right knee was prepped with chlorhexidine. A sterile procedure area was set up with a sterile gloves. After the sterile procedure was set up the wound was again cleaned with chlorhexidine and copious amounts of alcohol. 18-gauge needle was used to aspirate the knee through the superior lateral portal and 45 cc of purulent fluid was aspirated from the knee. Fluid was sent for analysis. Band-Aid was placed. Patient tolerated the procedure well. (2) MRSA bacteremia: PLAN: Continue on antibiotics per infectious disease (3) ESRD (end stage renal disease): PLAN: Per primary service, likely to affect postoperative outcomes (4) Non-pressure chronic ulcer of other part of left foot with fat layer exposed: PLAN: Per primary service, possible nidus of original infection (5) Peripheral vascular disease, unspecified: PLAN: Per primary service likely to affect postoperative outcomes
--- NOTE | 2022-05-25 15:20 | PCM.PN.REN ---
Subjective Subjective more alert today. Denies any complaints. Objective Data Objective Data Vital Signs: Vital Signs Temp Pulse Resp BP Pulse Ox O2 Del Method O2 Flow Rate 97.9 F 68 16 74/38 L 100 Room Air 3 05/25/22 12:00 05/25/22 12:00 05/25/22 12:00 05/25/22 12:00 05/25/22 12:00 05/25/22 14:56 05/25/22 08:00 FiO2 40 05/23/22 22:45 Oxygen Flow Rate (L/min) 3 Oxygen Delivery Method Room Air Weight: 97.4 kg Body Mass Index (BMI) 32.7 Intake & Output: Intake and Output for Last 24 Hours 05/23/22 05/24/22 05/25/22 23:59 23:59 23:59 Intake Total 806.92 / 806.92 2045.00 / 2045.00 50 / 50 Output Total 1000 / 1000 0 / 0 Balance 806.92 / 806.92 1045.00 / 1045.00 50 / 50 Lab / Micro Data Result Diagrams: 05/25/22 05:24 05/25/22 05:24 Labs: Laboratory Results - last 24 hr 05/24/22 05:18: Diff Path Review Reviewed 05/24/22 16:57: POC Glucose 161 H 05/24/22 21:44: POC Glucose 198 H 05/25/22 05:24: WBC 13.2 H, RBC 3.18 L, Hgb 9.9 L, Hct 30.3 L, MCV 95.3 H, MCH 31.1, MCHC 32.7, RDW Std Deviation 55.2 H, RDW Coeff of Moni 15.8 H, Plt Count 150, MPV 10.2, Immature Gran % (Auto) 0.900, Neut % (Auto) 91.0 H, Lymph % (Auto) 2.2 L, [place] % (Auto) 5.6, Eos % (Auto) 0.2, Baso % (Auto) 0.1, Absolute Neuts (auto) 12.0 H, Absolute Lymphs (auto) 0.29 L, Nucleated RBC % 0, Differential Comment SCANNED 05/25/22 05:24: Sodium 133 L, Potassium 4.3, Chloride 95 L, Carbon Dioxide 27.0, Anion Gap 11, BUN 58 H, Creatinine 5.18 H, Estim Creat Clear Calc 11.19, Est GFR (MDRD) Af Amer 14 L, Est GFR (MDRD) Non-Af 12 L, BUN/Creatinine Ratio 11.2, Glucose 170 H, Calcium 9.3, Total Bilirubin 0.40, AST 60 H, ALT 43, Alkaline Phosphatase 154 H, C-React Prot Ext Range 180.00 H, Total Protein 6.3 L, Albumin 1.8 L, Globulin 4.5 H, Albumin/Globulin Ratio 0.4 L 05/25/22 06:16: POC Glucose 183 H 05/25/22 11:22: POC Glucose 281 H Micro: Microbiology 05/24/22 19:25 Sputum, Expectorated/Coughed Gram Stain - Final 05/23/22 19:10 Blood Culture (Wb) - Anticubital Right Bacteria Detection (PCR) - Final Staphylococcus aureus mecA Resistance Marker 05/23/22 19:10 Blood Culture (Wb) - Anticubital Right Blood Culture - Preliminary Meth. resistant Staph. aureus 05/23/22 18:16 Blood Culture (Wb) - Right Forearm Blood Culture - Preliminary Staphylococcus aureus 05/23/22 22:40 Mucosa - Nasopharyngeal Respiratory Panel (PCR) - Final Radiography Diagnostic Testing: Radiology Impression Echocardiogram 05/24/22 05:55 Interpretation Summary Normal LV size. Mild concentric left ventricular hypertrophy. Moderately severe segmental systolic dysfunction (see wall motion). The estimated ejection fraction is 30 %. The left atrium is severely enlarged. The right atrium is moderately enlarged. Unable to assess diastolic dysfunction due to arrhythmia. Mild (1+) tricuspid valve insufficiency. Contrast injection was performed. Ordering Physician: Cristy Jfafe Referring Physician: Masha Treviño Performed By: Emperatriz Aldana, VENANCIOCS, RVT Extremity Arterial Study 05/24/22 08:42 Interpretation Summary Right SCOTT 1.94, artificially elevated due to non-compressible vessels. Doppler/PVR waveforms of the right leg mildly diminished low thigh and moderately diminished infrapopliteal. Left SCOTT not able to be obtained due to non-compressible vessels. Doppler/PVR waveforms of the left leg mildly diminished low thigh and moderately diminished infrapopliteal Ordering Physician: Gabriel Hurst Referring Physician: Masha Treviño Performed By: Danielle Betancur RDCS/KEANU Venous Doppler Study 05/24/22 08:43 Interpretation Summary Deep veins of the bilateral lower extremities are patent and compressible segmentally. There is no evidence of bilateral lower extremity deep vein thrombosis. The bilateral great saphenous veins appear patent and compressible segmentally. Ordering Physician: Gabriel Hurst Referring Physician: Masha Treviño M.D. Performed By: Janee Laguna RVT Physical Exam Narrative no obvious distress no pallor no icterus no JVD s1s2 no murmurs lungs clear abdomen soft no organomegaly no edema no cyanosis Assessment & Plan Assessment/Plan (1) ESRD (end stage renal disease): PLAN: On hemodialysis Tuesday, Tuesday, Tuesday schedule. Last dialysis was Tuesday. Currently has a left arm AV fistula for access. History of ischemic cardiomyopathy. Had coronary angiogram in the past and was not deemed to be a candidate for interventions. Repeat echocardiogram with further reduction in ejection fraction. He does have regional wall motion abnormalities as well. No plans for intervention as per cardiology. Lower extremity wound. Vascular surgery and podiatry have been consulted. Pneumonia. Currently on antibiotic coverage as per primary service Hypotension. Ongoing issue with hypotension. As outpatient he usually runs in the 90s. Takes midodrine before dialysis. Currently blood pressures are even lower. Likely due to worsening ejection fraction. Continue dialysis with midodrine as needed. Discussed with family at bedside. They did ask about home dialysis. He is not a candidate for peritoneal dialysis due to presence of hernia and in general not a candidate for general anesthesia. I did mention to them about home hemodialysis but spouse is unable to place needles. 05/25/21. clinically better. More alert. Blood pressure still low. Blood culture positive for MRSA. Orthopedics on consult for knee pain and swelling. Dialysis tomorrow.
[2022-05-25 17:25] LABS: Bedside Glucose 247 mg/dL (74-106)
[2022-05-25 17:43] LABS: AUTO B FLUID DILUENT BKGD CT WBC <0.1 RBC <0.01 (W<.1,R<.01); Source / Synovial Fluid RT KNEE
[2022-05-25 17:44] LABS: Appearance /Synovial Fluid Turbid (CLEAR)
[2022-05-25 17:45] LABS: Body Fluid QC Type(s) BF1Q; Lymph 1 %; Monocyte /Synovial Fluid 7 %; Neutrophil 92 % (0-25); Synovial Fld Mononuclear WBC % 21.6 %; Synovial Fld Polynuclear WBC % 78.4 %
[2022-05-25] MEDS: Atorvastatin Calcium 40 MG Tablet PO (21:09)
[2022-05-25 23:05] LABS: Bedside Glucose 270 mg/dL (74-106)
[2022-05-26] VITALS (24 sets, daily range): BP systolic 43–138; BP diastolic 21–119; PULSE 58–87; RESP 12–27; TEMP 36.4–37.1; O2SAT 88–100; BMI 32.6
[2022-05-26] MEDS: Midodrine HCl 5 MG Tablet 10 MG PO ×4 (05:23→22:33)
[2022-05-26 06:05] LABS: Absolute Lymphocyte Count 0.33 X10^3/uL (0.83-4.51); Absolute Neutrophil Count 10.7 X10^3/uL (2.0-7.7); Basophil# 0.02 X10^3/uL; Basophil% 0.2 % (0-1); Eosinophil# 0.08 X10^3/uL; Eosinophils% 0.7 % (0-5); Hematocrit 30.5 % (40-54); Hemoglobin 9.8 g/dL (13.0-16.5); Lymphocyte # 0.33 X10^3/ul (0.83-4.51); Lymphocyte % 2.8 % (19-41); Mean Corp Hgb Conc 32.1 g/dL (32-36); Mean Corpuscular Hgb 30.2 pg (27.0-32.0); Mean Corpuscular Volume 94.1 fL (80-94); Mean Platelet Vol. 9.8 fl (6.2-12.0); Monocyte# 0.57 X10^3/uL; Monocyte% 4.8 % (0-10); NRBC Flagged by Analyzer 0 % (0-5); Neutrophil # 10.68 X10^3/uL (2.7-7.7); Neutrophil % 89.9 % (47-70); POSITIVE DIFFERENTIAL YES; Platelet Count 165 K/mm3 (150-450); RBC Distribution Width CV 15.6 % (11.6-14.6); RBC Distribution Width SD 54.4 fl (35.1-43.9); Red Blood Count 3.24 M/mm3 (4.6-6.2); White Blood Count 11.9 K/mm3 (4.4-11.0)
[2022-05-26 06:08] LABS: Differential Indicated SCAN CRITERIA MET
[2022-05-26 06:17] LABS: International Normalized Ratio 1.7; Partial Thromboplast Time 35.6 Seconds (24.1-36.2); Prothrombin Time (Protime)PT. 19.8 SECONDS (11.7-14.9)
[2022-05-26 06:34] LABS: ALB/GLOB Ratio 0.4 RATIO (0.9-2.4); AST(SGOT) 72 U/L (15-37); Alanine Aminotransfer ALT/SGPT 57 U/L (16-61); Albumin, Serum 1.8 g/dL (3.2-5.0); Alkaline Phosphatase 188 U/L (45-117); Anion Gap 13 (5-15); BUN 84 mg/dL (7-18); Calcium,Total 9.6 mg/dL (8.5-10.1); Chloride 90 mmol/L (98-107); Creatinine, Serum 6.44 mg/dL (0.70-1.30); EST Glomerular Filtration Rate 9 mL/min (>60); Est Glom Filt Rate - Afr Amer 11 mL/min (>60); Globulin 4.8 g/dL (2.2-4.2); Glucose 187 mg/dL (74-106); Potassium 4.8 mmol/L (3.5-5.1); Protein, Total 6.6 g/dL (6.4-8.2); Sodium Level 127 mmol/L (136-145); Vancomycin, Random Level 18.6 ug/mL (0.0-15.0)
[2022-05-26 06:36] LABS: Differential Comment SCANNED
[2022-05-26 06:46] LABS: Bedside Glucose 164 mg/dL (74-106)
[2022-05-26] MEDS: Budesonide Respules 0.5 MG/2 ML AMPUL.NEB. INHALATION ×2 (07:05→19:15)
--- NOTE | 2022-05-26 07:30 | PCM.PN.HOSP ---
Subjective Subjective Feeling roughly the same this morning. Awaiting OR for washout of knee. Objective Data Objective Data Vital Signs: Vital Signs Temp Pulse Resp BP Pulse Ox O2 Del Method O2 Flow Rate 98.7 F 69 20 H 138/119 H 100 Room Air 3 05/26/22 04:10 05/26/22 07:06 05/26/22 07:06 05/26/22 04:10 05/26/22 07:07 05/26/22 07:07 05/25/22 08:00 FiO2 40 05/23/22 22:45 Oxygen Flow Rate (L/min) 3 Oxygen Delivery Method Room Air Weight: 101.3 kg Body Mass Index (BMI) 32.6 Intake & Output: Intake and Output for Last 24 Hours 05/24/22 05/25/22 05/26/22 23:59 23:59 23:59 Intake Total 2045.00 / 2045.00 50 / 50 Output Total 1000 / 1000 0 / 0 0 / 0 Balance 1045.00 / 1045.00 50 / 50 0 / 0 Lab / Micro Data Result Diagrams: 05/26/22 05:57 05/26/22 05:57 Labs: Laboratory Results - last 24 hr 05/24/22 05:18: Diff Path Review Reviewed 05/25/22 05:24: Sodium 133 L, Potassium 4.3, Chloride 95 L, Carbon Dioxide 27.0, Anion Gap 11, BUN 58 H, Creatinine 5.18 H, Estim Creat Clear Calc 11.19, Est GFR (MDRD) Af Amer 14 L, Est GFR (MDRD) Non-Af 12 L, BUN/Creatinine Ratio 11.2, Glucose 170 H, Calcium 9.3, Total Bilirubin 0.40, AST 60 H, ALT 43, Alkaline Phosphatase 154 H, C-React Prot Ext Range 180.00 H, Total Protein 6.3 L, Albumin 1.8 L, Globulin 4.5 H, Albumin/Globulin Ratio 0.4 L 05/25/22 11:22: POC Glucose 281 H 05/25/22 14:35: Synovial Source Cancelled, Synovial Color Cancelled, Synovial Appearance Cancelled, Synovial Volume Cancelled, Synovial Viscosity Cancelled, Synovial WBC Cancelled, Synovial RBC Cancelled, Synovial Tot Cell Ct Cancelled, Synov Polynuclear WBCs Cancelled, Synov Mononuclear WBCs Cancelled, Synovial Neutrophils Cancelled, Synovial Lymphocytes Cancelled, Synovial Monocytes Cancelled, Synovial Plasma Cells Cancelled, Synovial Other Cells Cancelled, Synovial Polynuclear % Cancelled, Synovial Mononuclear % Cancelled, Synovial Path Comment Cancelled 05/25/22 14:35: Synovial Source RT KNEE, Synovial Color WHITE, Synovial Appearance Turbid, Synovial WBC 172.8400 H, Synovial RBC 0.100 H, Synovial Tot Cell Ct 176.9400 H, Synov Polynuclear WBCs 135.520, Synov Mononuclear WBCs 37.320, Synovial Neutrophils 92 H, Synovial Lymphocytes 1, Synovial Monocytes 7, Synovial Polynuclear % 78.4, Synovial Mononuclear % 21.6, Synovial Path Comment May follow 05/25/22 16:44: POC Glucose 247 H 05/25/22 22:43: POC Glucose 270 H 05/26/22 05:57: Random Vancomycin 18.6 H 05/26/22 05:57: WBC 11.9 H, RBC 3.24 L, Hgb 9.8 L, Hct 30.5 L, MCV 94.1 H, MCH 30.2, MCHC 32.1, RDW Std Deviation 54.4 H, RDW Coeff of Moni 15.6 H, Plt Count 165, MPV 9.8, Immature Gran % (Auto) 1.600 H, Neut % (Auto) 89.9 H, Lymph % (Auto) 2.8 L, [place] % (Auto) 4.8, Eos % (Auto) 0.7, Baso % (Auto) 0.2, Absolute Neuts (auto) 10.7 H, Absolute Lymphs (auto) 0.33 L, Nucleated RBC % 0, Differential Comment SCANNED 05/26/22 05:57: Sodium 127 L, Potassium 4.8, Chloride 90 L, Carbon Dioxide 24.0, Anion Gap 13, BUN 84 H, Creatinine 6.44 H, Estim Creat Clear Calc 9.00, Est GFR (MDRD) Af Amer 11 L, Est GFR (MDRD) Non-Af 9 L, BUN/Creatinine Ratio 13.0, Glucose 187 H, Calcium 9.6, Total Bilirubin 0.40, AST 72 H, ALT 57, Alkaline Phosphatase 188 H, C-React Prot Ext Range 172.00 H, Total Protein 6.6, Albumin 1.8 L, Globulin 4.8 H, Albumin/Globulin Ratio 0.4 L 05/26/22 05:57: PT 19.8 H, INR 1.7, APTT 35.6 05/26/22 06:25: POC Glucose 164 H Micro: Microbiology 05/24/22 19:25 Sputum, Expectorated/Coughed Gram Stain - Final 05/23/22 19:10 Blood Culture (Wb) - Anticubital Right Bacteria Detection (PCR) - Final Staphylococcus aureus mecA Resistance Marker 05/23/22 19:10 Blood Culture (Wb) - Anticubital Right Blood Culture - Preliminary Meth. resistant Staph. aureus 05/23/22 18:16 Blood Culture (Wb) - Right Forearm Blood Culture - Preliminary Staphylococcus aureus 05/23/22 22:40 Mucosa - Nasopharyngeal Respiratory Panel (PCR) - Final Radiography Diagnostic Testing: Radiology Impression Thoracic Spine MRI 05/25/22 10:16 IMPRESSION: Mild scoliosis and degenerative changes.. No acute fracture or other significant bony pathology Diffuse disc degeneration without disc protrusion spinal stenosis or cord compression No evidence for acute osteomyelitis and discitis Electronically Signed: Nestor Corbett MD at 16:37 EST , Knee X-Ray 05/25/22 12:25 IMPRESSION: There is a moderate volume joint effusion. Electronically Signed: Pierre Carrion MD at 16:53 EST , Physical Exam Narrative General: Alert, oriented, no apparent distress HEENT: Atraumatic, normocephalic Eyes: Anicteric, normal conjunctiva, extraocular movements grossly intact Neck: Supple Respiratory: Somewhat diminished at the bases, normal respiratory effort Cardiovascular: Irregularly irregular GI: Soft, nontender, nondistended Extremities: No edema Musculoskeletal: Moving all extremities, right knee was not erythematous or tender while palpating, effusion noted Neuro: No overt focal neurological deficits Skin: Chronic bilateral lower extremity changes, has lesion on tip of left great toe Psych: Cooperative Assessment & Plan Assessment/Plan (1) Pneumonia: PLAN: Plan 81-year-old male with history of combined chronic diastolic and systolic CHF/ischemic cardiomyopathy, hypertension, ANKIT on CPAP, CAD status post PCI, type 2 diabetes mellitus with neuropathy, end-stage renal disease on hemodialysis, cirrhosis, chronic A. fib who presented 05/23 with 5 days of generalized weakness and recent intervention in left upper extremity secondary to pseudoaneurysm by Dr. Lunsford. Had fall about 4 days prior to presentation when he slid out of bed. EMS called at that time but given no injury or trauma he was not brought to the ED. Found to have NSTEMI in the ED and admitted. #MRSA bacteremia Unclear source Both blood cultures positive for MRSA on admission Has CRP of 224 and Pro-Wilbur of 2.16 X-ray of chest suggestive of pneumonia X-ray of toe unremarkable Podiatry consulted Echo already ordered Need to follow blood cultures to assure resolution 05/25: ID consulted. No vegetation seen on echo, CRP was 224 and is now 180. Orthopedics consulted due to right knee pain and x-ray did show moderate volume joint effusion. Thoracic MRI did not show any evidence of acute osteomyelitis or discitis. Right knee tapped and cultures are pending. Remains on vancomycin, blood cultures to be repeated today. Fistula to be evaluated also for possible infection 2: Repeat blood culture pending, ID on board. Sputum Growing Staph aureus. AV fistula/dialysis graft scan pending. White blood cell count improving as is CRP. Joint aspiration cultures with Staph aureus, has infection of total right knee replacement and went today to the OR for washout with Dr. Alfaro. ID following, vancomycin continued, Rocephin stopped. #Infection of total right knee replacement Joint aspiration also growing Staph aureus Went for washout 05/26 with orthopedic surgery #Pneumonia Did have WBC elevation with left shift on admission Chest x-ray questionable left lower lobe pneumonia, appears more pronounced this AM Blood cultures growing MRSA IV Rocephin and vancomycin Lactic acidosis resolved As needed albuterol Budesonide Respiratory panel negative Sputum culture and urine antigens ordered 05/25: White blood cell count improving, respiratory status fair 05/26: Continue to monitor respiratory status, sputum culture Growing Staph aureus #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 May need partial amputation on the left in the future but they would like to optimize healing potential by performing a after of revascularization attempt. This can likely be done in outpatient setting #NSTEMI Troponin 1589 on admission and down trended EKG showed A. fib and evidence of old anterior and inferior infarct Echo requested Cardiology consulted Aspirin, statin Beta-carl with holding parameters Had cardiac catheterizations in 2019 as well as 2021 with severe disease but medical therapy was recommended as there did not appear to be a good option for bypass or PCI-medical management again recommended Eliquis held and transition to heparin drip in the event cardiac catheterization would be needed but given no cardiac cath Eliquis resumed 05/25: Spoke with cardiology, at this time medical management recommended #History of atrial fibrillation Eliquis was transitioned to heparin on admission due to NSTEMI but Eliquis to be resumed Continue on amiodarone, metoprolol #Generalized weakness, debility, falls PT/OT Likely will need placement on discharge #Chronic combined CHF/ischemic cardiomyopathy secondary to coronary artery disease status post PCI in 2015 On Lasix chronically as well as metoprolol Lasix held due to concern for dehydration 03/17/2022 echocardiogram with normal LV size, EF 35%, moderate segmental systolic dysfunction, severely enlarged LA, mild MVI, mild to moderate TVI, PASP 57 mmHg with moderate pulmonary hypertension, moderate focal AV calcification with contrast injection performed at that time with improvement of LV systolic function compared to previous echo. Given NSTEMI repeat echo has been ordered 05/25: Repeat echo with EF of 30% with moderately severe segmental systolic dysfunction #Type 2 diabetes mellitus with peripheral neuropathy Glucose checks and sliding scale insulin #End-stage renal disease on hemodialysis Follows with nephrology, last HD 2 days prior to admission Nephro consult Continue midodrine 05/25: Dialysis tomorrow #Cirrhosis of the liver based on documentation Very minimally elevated AST and ALP #DVT prophylaxis: Eliquis Time spent in the patient's overall evaluation,decision-making process, review of diagnostic data, adjustment of management, discussion with other providers, nursing nursing and ancillary staff involved in patient's care documentation, 40 minutes Charges/Coding Visit Charges Inpatient E&M: 95834 Subs Hosp L2
[2022-05-26 08:13] LABS: Hemoglobin A1c 5.9 % (3.8-5.6)
[2022-05-26] MEDS: Acetaminophen 325 MG Tablet 650 MG PO ×2 (09:18→20:12)
[2022-05-26 09:31] LABS: Procalcitonin 2.59 ng/mL (0.00-0.09)
--- NOTE | 2022-05-26 09:34 | PCM.RX.CS ---
Consult Pharmacy has been consulted to manage selected antiobiotic: Vancomycin Type of Consult: Follow-up Prior Doses of Antibiotics Received/Current Regimen: Last dose 750mg iv x 1 post dialysis on 05.24.22. Labs: Sodium 127 mmol/L (136-145) L 05/26/22 05:57 Potassium 4.8 mmol/L (3.5-5.1) 05/26/22 05:57 Chloride 90 mmol/L (98-107) L 05/26/22 05:57 Carbon Dioxide 24.0 mmol/L (21.0-32.0) 05/26/22 05:57 Anion Gap 13 (5-15) 05/26/22 05:57 BUN 84 mg/dL (7-18) H 05/26/22 05:57 Creatinine 6.44 mg/dL (0.70-1.30) H 05/26/22 05:57 Est GFR (MDRD) Af Amer 11 mL/min (>60) L 05/26/22 05:57 Est GFR (MDRD) Non-Af 9 mL/min (>60) L 05/26/22 05:57 BUN/Creatinine Ratio 13.0 RATIO (10-20) 05/26/22 05:57 Glucose 187 mg/dL (74-106) H 05/26/22 05:57 Random Vancomycin 18.6 ug/mL (0.0-15.0) H 05/26/22 05:57 Microbiology: Microbiology 05/23/22 19:10 Blood Culture (Wb) - Anticubital Right Bacteria Detection (PCR) - Final Staphylococcus aureus mecA Resistance Marker 05/23/22 19:10 Blood Culture (Wb) - Anticubital Right Blood Culture - Final Meth. resistant Staph. aureus 05/23/22 18:16 Blood Culture (Wb) - Right Forearm Blood Culture - Final Meth. resistant Staph. aureus 05/24/22 19:25 Sputum, Expectorated/Coughed Gram Stain - Final 05/23/22 22:40 Mucosa - Nasopharyngeal Respiratory Panel (PCR) - Final Weight used for dosin kg Goal Trough: 15-20 mcg/mL Pharmacy Plan for Drug Dosing: Random level 18.6. Ordered 500mg iv x 1 post dialysis today per protocol. Random level ordered for before next dialysis session. Pharmacy Service will continue to monitor and adjust dosing as required. Follow-Up Labs: Trough Vancomycin - random 2.3.23 @0600
--- NOTE | 2022-05-26 10:59 | PN.RENAL_ITS ---
Subjective Subjective Came over to supervise during dialysis session. Blood pressure is soft, even though Crit-Line shows profile A. Has poor oral food intake, so only 600 cc is scheduled to be removed. Blood pressures in the 80s. He is on nasal cannula oxygen, and has no peripheral edema. Using AV fistula with no issues Objective Data Objective Data Vital Signs: Vital Signs Temp Pulse Resp BP Pulse Ox O2 Del Method O2 Flow Rate 98.0 F 66 20 H 87/40 L 98 Room Air 3 05/26/22 07:57 05/26/22 10:42 05/26/22 07:57 05/26/22 10:42 05/26/22 07:57 05/26/22 09:20 05/25/22 08:00 FiO2 40 05/23/22 22:45 Oxygen Flow Rate (L/min) 3 Oxygen Delivery Method Room Air Weight: 101.3 kg Body Mass Index (BMI) 32.6 Intake & Output: Intake and Output for Last 24 Hours 05/24/22 05/25/22 05/26/22 23:59 23:59 23:59 Intake Total 2045.00 / 2045.00 50 / 50 Output Total 1000 / 1000 0 / 0 0 / 0 Balance 1045.00 / 1045.00 50 / 50 0 / 0 Lab / Micro Data Attestation: I reviewed the patient's lab results. Result Diagrams: 05/26/22 05:57 05/26/22 05:57 Labs: Laboratory Results - last 24 hr 05/24/22 05:18: Diff Path Review Reviewed 05/25/22 11:22: POC Glucose 281 H 05/25/22 14:35: Synovial Source Cancelled, Synovial Color Cancelled, Synovial Appearance Cancelled, Synovial Volume Cancelled, Synovial Viscosity Cancelled, Synovial WBC Cancelled, Synovial RBC Cancelled, Synovial Tot Cell Ct Cancelled, Synov Polynuclear WBCs Cancelled, Synov Mononuclear WBCs Cancelled, Synovial Neutrophils Cancelled, Synovial Lymphocytes Cancelled, Synovial Monocytes Cancelled, Synovial Plasma Cells Cancelled, Synovial Other Cells Cancelled, Synovial Polynuclear % Cancelled, Synovial Mononuclear % Cancelled, Synovial Path Comment Cancelled 05/25/22 14:35: Synovial Source RT KNEE, Synovial Color WHITE, Synovial Appearance Turbid, Synovial WBC 172.8400 H, Synovial RBC 0.100 H, Synovial Tot Cell Ct 176.9400 H, Synov Polynuclear WBCs 135.520, Synov Mononuclear WBCs 37.320, Synovial Neutrophils 92 H, Synovial Lymphocytes 1, Synovial Monocytes 7, Synovial Polynuclear % 78.4, Synovial Mononuclear % 21.6, Synovial Path Comment May follow 05/25/22 16:44: POC Glucose 247 H 05/25/22 22:43: POC Glucose 270 H 05/26/22 05:57: Procalcitonin 2.59 H 05/26/22 05:57: Random Vancomycin 18.6 H 05/26/22 05:57: WBC 11.9 H, RBC 3.24 L, Hgb 9.8 L, Hct 30.5 L, MCV 94.1 H, MCH 30.2, MCHC 32.1, RDW Std Deviation 54.4 H, RDW Coeff of Moni 15.6 H, Plt Count 165, MPV 9.8, Immature Gran % (Auto) 1.600 H, Neut % (Auto) 89.9 H, Lymph % (Auto) 2.8 L, [place] % (Auto) 4.8, Eos % (Auto) 0.7, Baso % (Auto) 0.2, Absolute Neuts (auto) 10.7 H, Absolute Lymphs (auto) 0.33 L, Nucleated RBC % 0, Differential Comment SCANNED 05/26/22 05:57: Sodium 127 L, Potassium 4.8, Chloride 90 L, Carbon Dioxide 24.0, Anion Gap 13, BUN 84 H, Creatinine 6.44 H, Estim Creat Clear Calc 9.00, Est GFR (MDRD) Af Amer 11 L, Est GFR (MDRD) Non-Af 9 L, BUN/Creatinine Ratio 13.0, Glucose 187 H, Calcium 9.6, Total Bilirubin 0.40, AST 72 H, ALT 57, Alkaline Phosphatase 188 H, C-React Prot Ext Range 172.00 H, Total Protein 6.6, Albumin 1.8 L, Globulin 4.8 H, Albumin/Globulin Ratio 0.4 L 05/26/22 05:57: PT 19.8 H, INR 1.7, APTT 35.6 05/26/22 05:57: Hemoglobin A1c 5.9 H 05/26/22 06:25: POC Glucose 164 H Micro: Microbiology 05/24/22 19:25 Sputum, Expectorated/Coughed Gram Stain - Final 05/24/22 19:25 Sputum, Expectorated/Coughed Respiratory Culture - Preliminary Staphylococcus aureus 05/23/22 19:10 Blood Culture (Wb) - Anticubital Right Bacteria Detection (PCR) - Final Staphylococcus aureus mecA Resistance Marker 05/23/22 19:10 Blood Culture (Wb) - Anticubital Right Blood Culture - Final Meth. resistant Staph. aureus 05/23/22 18:16 Blood Culture (Wb) - Right Forearm Blood Culture - Final Meth. resistant Staph. aureus 05/23/22 22:40 Mucosa - Nasopharyngeal Respiratory Panel (PCR) - Final Radiography Diagnostic Testing: Radiology Impression Thoracic Spine MRI 05/25/22 10:16 IMPRESSION: Mild scoliosis and degenerative changes.. No acute fracture or other significant bony pathology Diffuse disc degeneration without disc protrusion spinal stenosis or cord compression No evidence for acute osteomyelitis and discitis Electronically Signed: Nestor Corbett MD at 16:37 EST , Knee X-Ray 05/25/22 12:25 IMPRESSION: There is a moderate volume joint effusion. Electronically Signed: Pierre Carrion MD at 16:53 EST , Physical Exam Narrative Patient is resting comfortably, has no respiratory compromise Appears sleepy but wakes up head is atraumatic normocephalic Chest is clear Heart with systolic murmur Abdomen is appears benign And there is no lower extremity edema AV fistula with a good bruit and thrill Assessment & Plan Assessment/Plan (1) ESRD (end stage renal disease): PLAN: He overall appears to be stable on dialysis. Even blood pressure is soft with remained stable in he is asymptomatic. He does not look fluid overloaded, so it is okay to remove only 600 cc. We will plan next [facility] session for Tuesday
--- NOTE | 2022-05-26 11:16 | PN_ITS ---
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 Patient has +MRSA bacteremia and is going for knee surgery today as this is the believed source. Patient denies constitutionals, rest pain or evidence of acute critical limb ischemia or acute infection to the left great toe. No new changes today. Objective Data Objective Data Vital Signs: Vital Signs Temp Pulse Resp BP Pulse Ox O2 Del Method O2 Flow Rate 98.1 F 64 18 90/46 L 100 Room Air 3 05/26/22 11:11 05/26/22 11:11 05/26/22 11:11 05/26/22 11:11 05/26/22 11:11 05/26/22 11:11 05/25/22 08:00 FiO2 40 05/23/22 22:45 Oxygen Flow Rate (L/min) 3 Oxygen Delivery Method Room Air Weight: 101.3 kg Body Mass Index (BMI) 32.6 Intake & Output: Intake and Output for Last 24 Hours 05/24/22 05/25/22 05/26/22 23:59 23:59 23:59 Intake Total 2045.00 / 2045.00 50 / 50 Output Total 1000 / 1000 0 / 0 0 / 0 Balance 1045.00 / 1045.00 50 / 50 0 / 0 Lab / Micro Data Result Diagrams: 05/26/22 05:57 05/26/22 05:57 Labs: Laboratory Results - last 24 hr 05/24/22 05:18: Diff Path Review Reviewed 05/25/22 11:22: POC Glucose 281 H 05/25/22 14:35: Synovial Source Cancelled, Synovial Color Cancelled, Synovial Appearance Cancelled, Synovial Volume Cancelled, Synovial Viscosity Cancelled, Synovial WBC Cancelled, Synovial RBC Cancelled, Synovial Tot Cell Ct Cancelled, Synov Polynuclear WBCs Cancelled, Synov Mononuclear WBCs Cancelled, Synovial Juanita trophils Cancelled, Synovial Lymphocytes Cancelled, Synovial Monocytes Cancelled, Synovial Plasma Cells Cancelled, Synovial Other Cells Cancelled, Synovial Polynuclear % Cancelled, Synovial Mononuclear % Cancelled, Synovial Path Comment Cancelled 05/25/22 14:35: Synovial Source RT KNEE, Synovial Color WHITE, Synovial Appearance Turbid, Synovial WBC 172.8400 H, Synovial RBC 0.100 H, Synovial Tot Cell Ct 176.9400 H, Synov Polynuclear WBCs 135.520, Synov Mononuclear WBCs 37.320, Synovial Neutrophils 92 H, Synovial Lymphocytes 1, Synovial Monocytes 7, Synovial Polynuclear % 78.4, Synovial Mononuclear % 21.6, Synovial Path Comment May follow 05/25/22 16:44: POC Glucose 247 H 05/25/22 22:43: POC Glucose 270 H 05/26/22 05:57: Procalcitonin 2.59 H 05/26/22 05:57: Random Vancomycin 18.6 H 05/26/22 05:57: WBC 11.9 H, RBC 3.24 L, Hgb 9.8 L, Hct 30.5 L, MCV 94.1 H, MCH 30.2, MCHC 32.1, RDW Std Deviation 54.4 H, RDW Coeff of Moni 15.6 H, Plt Count 165, MPV 9.8, Immature Gran % (Auto) 1.600 H, Neut % (Auto) 89.9 H, Lymph % (Auto) 2.8 L, [place] % (Auto) 4.8, Eos % (Auto) 0.7, Baso % (Auto) 0.2, Absolute Neuts (auto) 10.7 H, Absolute Lymphs (auto) 0.33 L, Nucleated RBC % 0, Differential Comment SCANNED 05/26/22 05:57: Sodium 127 L, Potassium 4.8, Chloride 90 L, Carbon Dioxide 24.0, Anion Gap 13, BUN 84 H, Creatinine 6.44 H, Estim Creat Clear Calc 9.00, Est GFR (MDRD) Af Amer 11 L, Est GFR (MDRD) Non-Af 9 L, BUN/Creatinine Ratio 13.0, Glucose 187 H, Calcium 9.6, Total Bilirubin 0.40, AST 72 H, ALT 57, Alkaline Phosphatase 188 H, C-React Prot Ext Range 172.00 H, Total Protein 6.6, Albumin 1.8 L, Globulin 4.8 H, Albumin/Globulin Ratio 0.4 L 05/26/22 05:57: PT 19.8 H, INR 1.7, APTT 35.6 05/26/22 05:57: Hemoglobin A1c 5.9 H 05/26/22 06:25: POC Glucose 164 H Micro: Microbiology 05/24/22 19:25 Sputum, Expectorated/Coughed Gram Stain - Final 05/24/22 19:25 Sputum, Expectorated/Coughed Respiratory Culture - Preliminary Staphylococcus aureus 05/23/22 19:10 Blood Culture (Wb) - Anticubital Right Bacteria Detection (PCR) - Final Staphylococcus aureus mecA Resistance Marker 05/23/22 19:10 Blood Culture (Wb) - Anticubital Right Blood Culture - Final Meth. resistant Staph. aureus 05/23/22 18:16 Blood Culture (Wb) - Right Forearm Blood Culture - Final Meth. resistant Staph. aureus 05/23/22 22:40 Mucosa - Nasopharyngeal Respiratory Panel (PCR) - Final Radiography Diagnostic Testing: Radiology Impression Thoracic Spine MRI 05/25/22 10:16 IMPRESSION: Mild scoliosis and degenerative changes.. No acute fracture or other significant bony pathology Diffuse disc degeneration without disc protrusion spinal stenosis or cord compression No evidence for acute osteomyelitis and discitis Electronically Signed: Nestor Corbett MD at 16:37 EST , Knee X-Ray 05/25/22 12:25 IMPRESSION: There is a moderate volume joint effusion. Electronically Signed: Pierre Carrion MD at 16:53 EST ,
[2022-05-26 11:35] LABS: Bedside Glucose 142 mg/dL (74-106)
[2022-05-26 12:36] LABS: Pathologist Comment Reviewed
--- NOTE | 2022-05-26 13:01 | NURSING ---
Gave report to SAGE Santos in [place]
--- NOTE | 2022-05-26 13:27 | PCM.PN.ID ---
Physical Exam Narrative Feeling a little better. No fever. OR today for R knee. Const alert and no apparent distress General Appearance: cooperative Resp normal air movement and clear to auscultation bilaterally Cardio regular rate and regular rhythm GI soft to palpation, non-tender and non-distended Skin no rashes or lesions noted Skin Narrative: R knee swelling ID ID: Route of nutrition/ use of supplements: [] Nutritional Intake: [] IV Site: [] Melendez Catheter: [] Assessment & Plan Assessment/Plan (1) ESRD (end stage renal disease): (2) Pneumonia: (3) MRSA bacteremia: PLAN: Unclear source, could be from fistula procedure, gangrene of L hallux, or pneumonia. - TTE showed no veg, EF 30% - repeat bcx today to monitor for clearance - sputum cx with staph aureus so far. - will order u/s of fistula given recent procedure - complicated by R knee PJI - OR today. D/w Dr. Alfaro. - no osteo/discitis seen on noncontrast t-spine mri. - cont vanc, will stop ceftriaxone. will follow (4) Infection of total right knee replacement:
[2022-05-26] MEDS: 0.9% Normal Saline 1,000 ML 15 ML IV (13:40)
--- NOTE | 2022-05-26 14:37 | PN.ORTHO_ITS ---
Subjective Subjective Patient is doing well. In good spirits. Would like to proceed with surgery. Objective Data Objective Data Vital Signs: Vital Signs Temp Pulse Resp BP Pulse Ox O2 Del Method O2 Flow Rate 97.5 F L 65 18 98/65 99 Room Air 3 05/26/22 12:50 05/26/22 12:50 05/26/22 12:50 05/26/22 12:50 05/26/22 12:50 05/26/22 12:50 05/25/22 08:00 FiO2 40 05/23/22 22:45 Oxygen Flow Rate (L/min) 3 Oxygen Delivery Method Room Air Weight: 223 lb 5.252 oz Body Mass Index (BMI) 32.6 Intake & Output: Intake and Output for Last 24 Hours 05/24/22 05/25/22 05/26/22 23:59 23:59 23:59 Intake Total 2045.00 / 2045.00 50 / 50 50 / 50 Output Total 1000 / 1000 0 / 0 700 / 700 Balance 1045.00 / 1045.00 50 / 50 -650 / -650 Lab / Micro Data Attestation: I reviewed the patient's lab results. Result Diagrams: 05/26/22 05:57 05/26/22 05:57 Labs: Laboratory Results - last 24 hr 05/25/22 14:35: Synovial Source Cancelled, Synovial Color Cancelled, Synovial Appearance Cancelled, Synovial Volume Cancelled, Synovial Viscosity Cancelled, Synovial WBC Cancelled, Synovial RBC Cancelled, Synovial Tot Cell Ct Cancelled, Synov Polynuclear WBCs Cancelled, Synov Mononuclear WBCs Cancelled, Synovial Neutrophils Cancelled, Synovial Lymphocytes Cancelled, Synovial Monocytes Cance lled, Synovial Plasma Cells Cancelled, Synovial Other Cells Cancelled, Synovial Polynuclear % Cancelled, Synovial Mononuclear % Cancelled, Synovial Path Comment Cancelled 05/25/22 14:35: Synovial Source RT KNEE, Synovial Color WHITE, Synovial Appearance Turbid, Synovial WBC 172.8400 H, Synovial RBC 0.100 H, Synovial Tot Cell Ct 176.9400 H, Synov Polynuclear WBCs 135.520, Synov Mononuclear WBCs 37.320, Synovial Neutrophils 92 H, Synovial Lymphocytes 1, Synovial Monocytes 7, Synovial Polynuclear % 78.4, Synovial Mononuclear % 21.6, Synovial Path Comment Reviewed 05/25/22 16:44: POC Glucose 247 H 05/25/22 22:43: POC Glucose 270 H 05/26/22 05:57: Procalcitonin 2.59 H 05/26/22 05:57: Random Vancomycin 18.6 H 05/26/22 05:57: WBC 11.9 H, RBC 3.24 L, Hgb 9.8 L, Hct 30.5 L, MCV 94.1 H, MCH 30.2, MCHC 32.1, RDW Std Deviation 54.4 H, RDW Coeff of Moni 15.6 H, Plt Count 165, MPV 9.8, Immature Gran % (Auto) 1.600 H, Neut % (Auto) 89.9 H, Lymph % (Auto) 2.8 L, [place] % (Auto) 4.8, Eos % (Auto) 0.7, Baso % (Auto) 0.2, Absolute Neuts (auto) 10.7 H, Absolute Lymphs (auto) 0.33 L, Nucleated RBC % 0, Differ ential Comment SCANNED 05/26/22 05:57: Sodium 127 L, Potassium 4.8, Chloride 90 L, Carbon Dioxide 24.0, Anion Gap 13, BUN 84 H, Creatinine 6.44 H, Estim Creat Clear Calc 9.00, Est GFR (MDRD) Af Amer 11 L, Est GFR (MDRD) Non-Af 9 L, BUN/Creatinine Ratio 13.0, Glucose 187 H, Calcium 9.6, Total Bilirubin 0.40, AST 72 H, ALT 57, Alkaline Phosphatase 188 H, C-React Prot Ext Range 172.00 H, Total Protein 6.6, Albumin 1.8 L, Globulin 4.8 H, Albumin/Globulin Ratio 0.4 L 05/26/22 05:57: PT 19.8 H, INR 1.7, APTT 35.6 05/26/22 05:57: Hemoglobin A1c 5.9 H 05/26/22 06:25: POC Glucose 164 H 05/26/22 10:59: POC Glucose 142 H Micro: Microbiology 05/25/22 14:35 Fluid - Synovial (joint) Gram Stain - Final 05/25/22 14:35 Fluid - Synovial (joint) Body Fluid Culture - Preliminary Staphylococcus aureus 05/24/22 19:25 Sputum, Expectorated/Coughed Gram Stain - Final 05/24/22 19:25 Sputum, Expectorated/Coughed Respiratory Culture - Preliminary Staphylococcus aureus 05/23/22 19:10 Blood Culture (Wb) - Anticubital Right Bacteria Detection (PCR) - Final Staphylococcus aureus mecA Resistance Marker 05/23/22 19:10 Blood Culture (Wb) - Anticubital Right Blood Culture - Final Meth. resistant Staph. aureus 05/23/22 18:16 Blood Culture (Wb) - Right Forearm Blood Culture - Final Meth. resistant Staph. aureus 05/23/22 22:40 Mucosa - Nasopharyngeal Respiratory Panel (PCR) - Final Radiography Diagnostic Testing: Radiology Impression Thoracic Spine MRI 05/25/22 10:16 IMPRESSION: Mild scoliosis and degenerative changes.. No acute fracture or other significant bony pathology Diffuse disc degeneration without disc protrusion spinal stenosis or cord compression No evidence for acute osteomyelitis and discitis Electronically Signed: Nestor Corbett MD at 16:37 EST , Knee X-Ray 05/25/22 12:25 IMPRESSION: There is a moderate volume joint effusion. Electronically Signed: Pierre Carrion MD at 16:53 EST , Physical Exam Const alert and oriented x3 Extremity Extremity Narrative: Right lower extremity: Large effusion. Pain with range of motion. Neurovascular intact distally. Chronic vascular changes. Assessment & Plan Assessment/Plan (1) Infection of total right knee replacement: PLAN: Spoke with medicine team today. Patient has been stabilized for surgery. Eliquis was held last evening. Preoperative hemoglobin was discussed with the patient as well as his as well as expected blood loss with surgery. At this time all parties would like to proceed with surgery. There is an unders tanding that risk of transfusion with based on his hemoglobin level was higher than normal however, patient would like to proceed with treatment for infection at this time. Tourniquet will be used during surgery which should help limited blood loss.
[2022-05-26] MEDS: Vancomycin IV 500 MG/100 ML BAG 100 MG IV (16:00)
[2022-05-26] MEDS: Vancomycin IV 1,000 MG/20 ML Vial 1000 MG OPERA.SITE (16:45)
[2022-05-26] MEDS: Epinephrine (SHOCK) 16 mg in 0.9% NS 250 mL 9.5 MG CONT INF (17:05)
[2022-05-26 17:29] LABS: Hematocrit 30.6 % (40-54); Hemoglobin 9.6 g/dL (13.0-16.5)
--- NOTE | 2022-05-26 17:50 | NURSING ---
Arrived from OR, unable to obtain cuff BP reading, Dr. Roberts attempting to insert ART line.
--- NOTE | 2022-05-26 17:55 | PCM.OPRPT ---
Report of Operation Date of Procedure: 05/26/22 Pre-Operative Diagnosis: Right knee periprosthetic joint infection Post-Operative Diagnosis: Right knee periprosthetic joint infection Surgery/Procedure Performed:: Irrigation debridement right knee with retention of implants Description of Surgical Findings:: Mild rated knee. Knee was stable. Polyethylene was replaced with same thickness. Surgeon: Francisco Alfaro continuous improvement lead: Heriberto Snyder Type of Anesthesia: General Anesthesiologist: Parker Aguila Special Medications: 1 g vancomycin powder in wound. Patient was on antibiotics from floor. Specimen's removed: 3 separate specimens were sent to microbiology Estimated Blood Loss (mL): 400 mL Fluids Replaced: 500 mL crystalloid Description of Procedure: 81 yo m history of R TKA in 2004 presents with MRSA bacteremia and knee swelling. Reviewed options were discussed the patient. Based on acuity of the symptoms, patient is overall health and organism irrigation debridement with polyethylene exchange is recommended. Risks and benefits of the procedure were discussed with the patient including but not limited to blood loss, DVTs, PEs, neurovascular damage, infection, general risk of anesthesia including loss of life. Demonstrated understanding and was able to sign informed consent. On the date of procedure patient's right lower extremity was marked in the preoperative area. The patient was then taken back to the operating room where the patient was placed on the table in the supine position. All bony prominences were identified a well-padded. Anesthesia assumed control of the C-spine and airway and remained controlled throughout the remainder of the procedure. A tourniquet was placed on the operative thigh and the leg was prepped in a sterile fashion. The surgeon then scrubbed at this time .Upon reentering the room left lower extremity was draped in a standard orthopedic fashion. A timeout was then called and everyone agreed upon the side, the site, the procedure to be performed, patient's identity and antibiotics given. A midline skin incision was made and sharp dissection was taken down through skin subcutaneous tissue and fat. Appropriate flaps were elevated medially and laterally. His arthrotomy was identified and the standard medial parapatellar incision was made and the patella was subluxed laterally. The standard deep MCL release was done. At this point an aggressive synovectomy commenced. Our attention was first turned towards the subpatellar pouch and all suspicious synovium and tissues were debrided. We then directed our attention towards medial lateral gutters were these tissues were aggressively debrided. Knee was then flexed up the polyethylene was removed. Once polyethylene was removed we did the remainder of the synovium in the medial and lateral gutters and along the lateral structures and MCL. We then debrided the posterior knee. Knee was flexed up and culture was taken from the femoral notch. And also there was a membrane beneath the tibial baseplate that was removed and sent for culture. He had completed our synovectomy and were happy with the joint. We then used a chlorahexadine scrub sponge and physically scrub the metal implants using a scrub sponge but nothing abrasive. We also scrubbed the remainder of the wound with chlorhexidine. 6 L of normal saline were then irrigated throughout the wound with low-pressure lavage and the wound was once again explored. All remaining tissue that was suspicious was seen in the wound was once again irrigated with normal saline. 11 mm mm polyethylene was then opened and put back into place after appropriate trialing. Tourniquet was let down and hemostasis was obtained as well as possible. Lateral drain was placed in 1 g of vancomycin powder were placed in the wound/joint. During the course of the procedure patient's hypotension continued to progress. During the procedure anesthesia placed an arterial line in the right brachial artery and an IJ line. Patient received epinephrine. Once the final components were placed the wound was copiously irrigated with normal saline solution. The wound was closed in a layer altamirano fashion using #1 vicryl interrupted sutures for the arthrotomy, 2-0 interrupted Vicryl for the subcuticular layer and sanjuanita for final skin closure. A sterile compressive dressing was then placed. The patient was then awakened from anesthesia, transferred to the [facility] and transferred to the ICU for recovery. Post op plan Patient will be transferred to the ICU for postoperative care. He can be weightbearing as tolerated. He can resume his Eliquis once medically appropriate which should be sufficient for DVT prophylaxis. Once medically appropriate he can be activity as tolerated. He will need to follow-up in the office in 2 weeks for wound check and staple removal. My physician brake machine operator (CAROLINE) was a vital part of this case. They were important in appropriate retraction during the case, and protection of soft tissues during bony cuts. Their intimate knowledge of the case and my steps aided in safe and expedient completion of the procedure as well as appropriate position of the leg during the case. They were also vital in assisting with closure under my direct supervision. Complications Patient had significant hypotension and bradycardia intraoperatively. This required the use of pressors. Lines were placed. Patient was able to be extubated and was breathing on his own in transit to the ICU. Admit VTE Documentation VTE Present on Admission: No VTE Mechan Device Prophylaxis: SCD's VTE Pharm Prophylaxis ordered?: Yes
--- NOTE | 2022-05-26 18:07 | DIALYSIS ---
3.5 hours hD completed. UF 700ml. AVF WNL, bleeding cessation wthin 5 min each site. SBP in 80's most of treatment. Midodrine given per order. Dr Howell aware.
[2022-05-26 18:21] LABS: Base Excess -6 mmol/L (-2 to +2); PO2 53 mmHG (75-100); SO2 82 % (95-99); Total Carbon Dioxide 22 mmol/L; pCO2 46.3 mmHg (35-45); pH 7.27 (7.35-7.45)
[2022-05-26 18:25] LABS: Base Excess -20 mmol/L (-2 to +2); Bicarbonate 12.1 mmol/L (22-26); PO2 55 mmHG (75-100); SO2 67 % (95-99); Total Carbon Dioxide 14 mmol/L; pCO2 54.7 mmHg (35-45); pH 6.95 (7.35-7.45)
[2022-05-26 18:36] LABS: Base Excess -3 mmol/L (-2 to +2); Bicarbonate 21.6 mmol/L (22-26); Blood Gas Specimen Type ART; PO2 367 mmHG (75-100); SO2 100 % (95-99); Total Carbon Dioxide 23 mmol/L; pCO2 34.7 mmHg (35-45)
[2022-05-26 18:37] LABS: Blood Gas Specimen Type VEN
[2022-05-26 18:38] LABS: Blood Gas Specimen Type VEN
--- NOTE | 2022-05-26 18:50 | NURSING ---
PT arrived w/ Epinephrine drip running at 2mcg/min (1.9cc/hr) which continued during PACU recovery per Anesthesia. No titrations done as anesthesia was attempting line placement and managing drip.
--- NOTE | 2022-05-26 18:57 | NURSING ---
LT femoral ART and AYAKA lines placed by Dr. Roberts.
--- NOTE | 2022-05-26 19:09 | EKG12_ITS ---
Test Reason : POST-OP Blood Pressure : / mmHG Vent. Rate : 072 BPM Atrial Rate : 063 BPM P-R Int : 000 ms QRS Dur : 110 ms QT Int : 438 ms P-R-T Axes : 000 036 104 degrees QTc Int : 479 ms Accelerated Junctional rhythm with frequent Premature ventricular complexes with ventricular escape c omplexes Inferior infarct , age undetermined Anterolateral infarct , age undetermined Abnormal ECG When compared with ECG of 26-MAY-2022 05:06, MANUAL COMPARISON REQUIRED, DATA IS UNCONFIRMED Confirmed by SHIMA GOMEZ, ARELI ([id number]), electronic news gathering editor KIMMY SAWYER ([id number]) on 05/28/2022 9:08:57 AM Referred By: BUD Confirmed By:ANGEL RONQUILLO MD
[2022-05-26 19:52] LABS: Troponin-I HS 661 pg/mL (3.0-78.0)
--- NOTE | 2022-05-26 21:04 | NURSING ---
Discussed resuscitation status options, at length, w/pt and his at bedside; pt expressed no desire for CPR, defibrillation, intubation or mechanical ventilation if his heart should stop beating or he should stop breathing on his own ([id number]) and his agreed to respect his wishes. Pt questioned that if the pain from his knee was taken out of the equation, would he still feel this way? Pt's responded, Yes, if it's my time to go, please let me go. I've had a rough year and so many new disease processes occur. I'm ok. Pt's , Marissa, at bedside, becomes tearful and restates his wishes for clarification to him and he agreed still. Pt's agrees to respect his wishes.
[2022-05-26] MEDS: APIXABAN 2.5 MG TABLET (WCH) PO (22:34)
[2022-05-26] MEDS: Atorvastatin Calcium 40 MG Tablet PO (22:34)
[2022-05-26] MEDS: Insulin Lispro 100 UNIT/ML INSULN.PEN SC (22:47)
[2022-05-26 23:11] LABS: Bedside Glucose 225 mg/dL (74-106)
[2022-05-27] VITALS (47 sets, daily range): BP systolic 90–129; BP diastolic 35–55; PULSE 52–70; RESP 14–28; TEMP 36.1–36.6; O2SAT 92–98
--- NOTE | 2022-05-27 01:20 | CPS ---
O2 bled into home CPAP unit at 2 lpm
[2022-05-27 04:43] LABS: Absolute Neutrophil Count 17.4 X10^3/uL (2.0-7.7); Basophil# 0.05 X10^3/uL; Basophil% 0.3 % (0-1); Eosinophil# 0.01 X10^3/uL; Eosinophils% 0.1 % (0-5); Hematocrit 29.7 % (40-54); Hemoglobin 9.4 g/dL (13.0-16.5); Lymphocyte % 2.6 % (19-41); Mean Corp Hgb Conc 31.6 g/dL (32-36); Mean Corpuscular Hgb 30.2 pg (27.0-32.0); Mean Corpuscular Volume 95.5 fL (80-94); Mean Platelet Vol. 10.1 fl (6.2-12.0); Monocyte# 0.82 X10^3/uL; Monocyte% 4.2 % (0-10); NRBC Flagged by Analyzer 0 % (0-5); Neutrophil # 17.42 X10^3/uL (2.7-7.7); POSITIVE DIFFERENTIAL YES; Platelet Count 242 K/mm3 (150-450); RBC Distribution Width CV 15.6 % (11.6-14.6); RBC Distribution Width SD 54.3 fl (35.1-43.9); Red Blood Count 3.11 M/mm3 (4.6-6.2); White Blood Count 19.4 K/mm3 (4.4-11.0)
[2022-05-27 04:48] LABS: Differential Indicated SCAN CRITERIA MET
[2022-05-27 05:41] LABS: ALB/GLOB Ratio 0.4 RATIO (0.9-2.4); AST(SGOT) 39 U/L (15-37); Alanine Aminotransfer ALT/SGPT 46 U/L (16-61); Albumin, Serum 1.8 g/dL (3.2-5.0); Alkaline Phosphatase 172 U/L (45-117); Anion Gap 10 (5-15); BUN 53 mg/dL (7-18); BUN/Creat Ratio 11.8 RATIO (10-20); Calcium,Total 9.3 mg/dL (8.5-10.1); Chloride 98 mmol/L (98-107); EST Glomerular Filtration Rate 14 mL/min (>60); Est Glom Filt Rate - Afr Amer 16 mL/min (>60); Estimated Creatinine Clearance 12.88 ml/min; Globulin 4.7 g/dL (2.2-4.2); Glucose 210 mg/dL (74-106); Potassium 5.3 mmol/L (3.5-5.1); Protein, Total 6.5 g/dL (6.4-8.2); Sodium Level 132 mmol/L (136-145)
[2022-05-27 05:56] LABS: Differential Comment SCANNED
--- NOTE | 2022-05-27 05:56 | PN.ORTHO_ITS ---
Subjective Subjective Patient awake and alert this morning. Nursing notes he was conversive on the phone most of the evening last night. Patient remains on adrenaline drip this morning. Objective Data Objective Data Vital Signs: Vital Signs Temp Pulse Resp BP Pulse Ox O2 Del Method O2 Flow Rate 97.8 F 57 L 17 116/48 L 97 Nasal Cannula 2 05/27/22 00:00 05/27/22 05:30 05/27/22 05:00 05/27/22 05:30 05/27/22 05:00 05/27/22 04:00 05/27/22 05:00 FiO2 40 05/26/22 19:15 Oxygen Flow Rate (L/min) 2 Oxygen Delivery Method Nasal Cannula Weight: 224 lb 6.889 oz Body Mass Index (BMI) 32.6 Intake & Output: Intake and Output for Last 24 Hours 05/25/22 05/26/22 05/27/22 23:59 23:59 23:59 Intake Total 50 / 50 607.59 / 616.99 175.91 / 175.91 Output Total 0 / 0 700 / 700 0 / 0 Balance 50 / 50 -92.41 / -83.01 175.91 / 175.91 Lab / Micro Data Attestation: I reviewed the patient's lab results. Result Diagrams: 05/27/22 04:30 05/27/22 04:30 Labs: Laboratory Results - last 24 hr 05/25/22 14:35: Synovial Path Comment Reviewed 05/26/22 05:57: Procalcitonin 2.59 H 05/26/22 05:57: Random Vancomycin 18.6 H 05/26/22 05:57: WBC 11.9 H, RBC 3.24 L, Hgb 9.8 L, Hct 30.5 L, MCV 94.1 H, MCH 30.2, MCHC 32.1, RDW Std Deviation 54.4 H, RDW Coeff of Moni 15.6 H, Plt Count 165, MPV 9.8, Immature Gran % (Auto) 1.600 H, Neut % (Auto) 89.9 H, Lymph % (Au to) 2.8 L, [place] % (Auto) 4.8, Eos % (Auto) 0.7, Baso % (Auto) 0.2, Absolute N euts (auto) 10.7 H, Absolute Lymphs (auto) 0.33 L, Nucleated RBC % 0, Differential Comment SCANNED 05/26/22 05:57: Sodium 127 L, Potassium 4.8, Chloride 90 L, Carbon Dioxide 24.0, Anion Gap 13, BUN 84 H, Creatinine 6.44 H, Estim Creat Clear Calc 9.00, Est GFR (MDRD) Af Amer 11 L, Est GFR (MDRD) Non-Af 9 L, BUN/Creatinine Ratio 13.0, Glucose 187 H, Calcium 9.6, Total Bilirubin 0.40, AST 72 H, ALT 57, Alkaline Phosphatase 188 H, C-React Prot Ext Range 172.00 H, Total Protein 6.6, Albumin 1.8 L, Globulin 4.8 H, Albumin/Globulin Ratio 0.4 L 05/26/22 05:57: PT 19.8 H, INR 1.7, APTT 35.6 05/26/22 05:57: Hemoglobin A1c 5.9 H 05/26/22 06:25: POC Glucose 164 H 05/26/22 10:59: POC Glucose 142 H 05/26/22 17:10: Troponin I High Sens 661 H* 05/26/22 17:16: Blood Type B POSITIVE, Antibody Screen NEGATIVE, Crossmatch See Detail 05/26/22 22:45: POC Glucose 225 H 05/26/22 : Hgb 9.6 L, Hct 30.6 L 05/26/22 : Blood Type Cancelled, Antibody Screen Cancelled, Crossmatch See Detail 05/27/22 04:30: WBC 19.4 H, RBC 3.11 L, Hgb 9.4 L, Hct 29.7 L, MCV 95.5 H, MCH 30.2, MCHC 31.6 L, RDW Std Deviation 54.3 H, RDW Coeff of Moni 15.6 H, Plt Count 242, MPV 10.1, Immature Gran % (Auto) 2.800 H, Neut % (Auto) 90.0 H, Lymph % (Auto) 2.6 L, [place] % (Auto) 4.2, Eos % (Auto) 0.1, Baso % (Auto) 0.3, Absolute Neuts (auto) 17.4 H, Absolute Lymphs (auto) 0.50 L, Nucleated RBC % 0, Differential Comment SCANNED 05/27/22 04:30: Sodium 132 L, Potassium 5.3 H, Chloride 98, Carbon Dioxide 24.0, Anion Gap 10, BUN 53 H, Creatinine 4.50 H, Estim Creat Clear Calc 12.88, Est GFR (MDRD) Af Amer 16 L, Est GFR (MDRD) Non-Af 14 L, BUN/Creatinine Ratio 11.8, Glucose 210 H, Calcium 9.3, Total Bilirubin 0.50, AST 39 H, ALT 46, Alkaline Phosphatase 172 H, C-React Prot Ext Range 167.00 H, Total Protein 6.5, Albumin 1.8 L, Globulin 4.7 H, Albumin/Globulin Ratio 0.4 L Micro: Microbiology 05/25/22 19:46 Blood Culture (Wb) - Anticubital Right Blood Culture - Preliminary 05/25/22 10:00 Blood Culture (Wb) - Right Hand Blood Culture - Preliminary 05/25/22 14:35 Fluid - Synovial (joint) Gram Stain - Final 05/25/22 14:35 Fluid - Synovial (joint) Body Fluid Culture - Preliminary Staphylococcus aureus 05/24/22 19:25 Sputum, Expectorated/Coughed Gram Stain - Final 05/24/22 19:25 Sputum, Expectorated/Coughed Respiratory Culture - Preliminary Staphylococcus aureus 05/23/22 19:10 Blood Culture (Wb) - Anticubital Right Bacteria Detection (PCR) - Final Staphylococcus aureus mecA Resistance Marker 05/23/22 19:10 Blood Culture (Wb) - Anticubital Right Blood Culture - Final Meth. resistant Staph. aureus 05/23/22 18:16 Blood Culture (Wb) - Right Forearm Blood Culture - Final Meth. resistant Staph. aureus 05/23/22 22:40 Mucosa - Nasopharyngeal Respiratory Panel (PCR) - Final ABG Data ABG results: ABG 05/26/22 05/26/22 05/26/22 18:11 18:19 18:25 Specimen Type AYAKA AYAKA ART pH 7.27 L 6.95 L* 7.40 Bicarbonate Actual 21.0 L 12.1 L 21.6 L Total CO2 22 14 23 Base Excess -6 L -20 L -3 L O2 Saturation 82 L 67 L 100 H ABG pCO2 46.3 H 54.7 H 34.7 L ABG pO2 53 L 55 L 367 H* Crit Call To/Read Back Yes Yes Blood Gas Notified Whom [email or web address] regan Physical Exam Const alert and oriented x3 General Appearance: cooperative and comfortable Resp Resp Narrative: On CPAP machine Extremity Extremity Narrative: Right lower extremity: Dressing is clean dry and intact. Exam minimal secondary to stay in ICU. Neuro vas intact distally. Positive dorsiflexion EHL and plantar flexion. Calves are soft and supple. Assessment & Plan Assessment/Plan (1) Infection of total right knee replacement: PLAN: Postop day 1 irrigation debridement right total knee with polyethylene exchange. Patient had significant hypotension intraoperatively. Currently stabilized on adrenaline drip in the ICU. Will defer to ICU for initial postoperative care. Patient is alert and oriented this morning. Reports being comfortable. Recommend resuming Eliquis for DVT prophylaxis when appropriate. Weightbearing as tolerated. We will continue further rounds later today. [facility] Office:
[2022-05-27] MEDS: TITRATION PARAMETER CHANGE 1 EACH IV ×2 (06:13)
[2022-05-27] MEDS: Insulin Lispro 100 UNIT/ML INSULN.PEN SC ×4 (06:13→23:29)
[2022-05-27] MEDS: Midodrine HCl 5 MG Tablet 10 MG PO ×3 (06:13→23:20)
--- NOTE | 2022-05-27 07:14 | PN.HOSP_ITS ---
Subjective Subjective Was transferred to the ICU after surgery yesterday due to hypotension requiring pressors. Today blood pressure improved though still on 2 mics of Levophed, patient still feels weak but better overall. Has some left upper extremity pain but no other complaints. Overnight there was report that he expressed desire to be DNR/DNI, spoke with him with daughter at bedside and he confirmed DNR/DNI, this has been changed in the EMR Objective Data Objective Data Vital Signs: Vital Signs Temp Pulse Resp BP Pulse Ox O2 Del Method O2 Flow Rate 97.8 F 57 L 22 H 118/48 L 97 Nasal Cannula 2 05/27/22 00:00 05/27/22 07:00 05/27/22 07:00 05/27/22 07:00 05/27/22 07:00 05/27/22 07:00 05/27/22 07:00 FiO2 40 05/26/22 19:15 Oxygen Flow Rate (L/min) 2 Oxygen Delivery Method Nasal Cannula Weight: 101.8 kg Body Mass Index (BMI) 32.6 Intake & Output: Intake and Output for Last 24 Hours 05/25/22 05/26/22 05/27/22 23:59 23:59 23:59 Intake Total 50 / 50 607.59 / 616.99 187.64 / 187.64 Output Total 0 / 0 700 / 700 0 / 0 Balance 50 / 50 -92.41 / -83.01 187.64 / 187.64 Lab / Micro Data Result Diagrams: 05/27/22 04:30 05/27/22 04:30 Labs: Laboratory Results - last 24 hr 05/25/22 14:35: Synovial Path Comment Reviewed 05/26/22 05:57: Procalcitonin 2.59 H 05/26/22 05:57: Hemoglobin A1c 5.9 H 05/26/22 10:59: POC Glucose 142 H 05/26/22 17:10: Troponin I High Sens 661 H* 05/26/22 17:16: Blood Type B POSITIVE, Antibody Screen NEGATIVE, Crossmatch See Detail 05/26/22 22:45: POC Glucose 225 H 05/26/22 : Hgb 9.6 L, Hct 30.6 L 05/26/22 : Blood Type Cancelled, Antibody Screen Cancelled, Crossmatch See Detail 05/27/22 04:30: WBC 19.4 H, RBC 3.11 L, Hgb 9.4 L, Hct 29.7 L, MCV 95.5 H, MCH 30.2, MCHC 31.6 L, RDW Std Deviation 54.3 H, RDW Coeff of Omni 15.6 H, Plt Count 242, MPV 10.1, Immature Gran % (Auto) 2.800 H, Neut % (Auto) 90.0 H, Lymph % (Auto) 2.6 L, [place] % (Auto) 4.2, Eos % (Auto) 0.1, Baso % (Auto) 0.3, Absolute Neuts (auto) 17.4 H, Absolute Lymphs (auto) 0.50 L, Nucleated RBC % 0, Differential Comment SCANNED 05/27/22 04:30: Sodium 132 L, Potassium 5.3 H, Chloride 98, Carbon Dioxide 24.0, Anion Gap 10, BUN 53 H, Creatinine 4.50 H, Estim Creat Clear Calc 12.88, Est GFR (MDRD) Af Amer 16 L, Est GFR (MDRD) Non-Af 14 L, BUN/Creatinine Ratio 11.8, Glucose 210 H, Calcium 9.3, Total Bilirubin 0.50, AST 39 H, ALT 46, Alkaline Phosphatase 172 H, C-React Prot Ext Range 167.00 H, Total Protein 6.5, Albumin 1.8 L, Globulin 4.7 H, Albumin/Globulin Ratio 0.4 L Micro: Microbiology 05/25/22 19:46 Blood Culture (Wb) - Anticubital Right Blood Culture - Preliminary 05/25/22 10:00 Blood Culture (Wb) - Right Hand Blood Culture - Preliminary 05/25/22 14:35 Fluid - Synovial (joint) Gram Stain - Final 05/25/22 14:35 Fluid - Synovial (joint) Body Fluid Culture - Preliminary Staphylococcus aureus 05/24/22 19:25 Sputum, Expectorated/Coughed Gram Stain - Final 05/24/22 19:25 Sputum, Expectorated/Coughed Respiratory Culture - Preliminary Staphylococcus aureus 05/23/22 19:10 Blood Culture (Wb) - Anticubital Right Bacteria Detection (PCR) - Final Staphylococcus aureus mecA Resistance Marker 05/23/22 19:10 Blood Culture (Wb) - Anticubital Right Blood Culture - Final Meth. resistant Staph. aureus 05/23/22 18:16 Blood Culture (Wb) - Right Forearm Blood Culture - Final Meth. resistant Staph. aureus 05/23/22 22:40 Mucosa - Nasopharyngeal Respiratory Panel (PCR) - Final ABG Data ABG results: ABG 05/26/22 05/26/22 05/26/22 18:11 18:19 18:25 Specimen Type AYAKA AYAKA ART pH 7.27 L 6.95 L* 7.40 Bicarbonate Actual 21.0 L 12.1 L 21.6 L Total CO2 22 14 23 Base Excess -6 L -20 L -3 L O2 Saturation 82 L 67 L 100 H ABG pCO2 46.3 H 54.7 H 34.7 L ABG pO2 53 L 55 L 367 H* Crit Call To/Read Back Yes Yes Blood Gas Notified Whom jass regan Physical Exam Narrative General: Alert, oriented, no apparent distress HEENT: Atraumatic, normocephalic Eyes: Anicteric, normal conjunctiva, extraocular movements grossly intact Neck: Supple Respiratory: Somewhat diminished at the bases, normal respiratory effort Cardiovascular: Irregularly irregular GI: Soft, nontender, nondistended Extremities: Some possible nonpitting left upper extremity edema Musculoskeletal: Moving all extremities, right knee wrapped Neuro: No overt focal neurological deficits Skin: Chronic bilateral lower extremity changes, has lesion on tip of left great toe Psych: Cooperative Assessment & Plan Assessment/Plan (1) Pneumonia: PLAN: Plan 81-year-old male with history of combined chronic diastolic and systolic CHF/ischemic cardiomyopathy, hypertension, ANKIT on CPAP, CAD status post PCI, type 2 diabetes mellitus with neuropathy, end-stage renal disease on hemodialysis, cirrhosis, chronic A. fib who presented 05/23 with 5 days of generalized weakness and recent intervention in left upper extremity secondary to pseudoaneurysm by Dr. Lunsford. Had fall about 4 days prior to presentation when he slid out of bed. EMS called at that time but given no injury or trauma he was not brought to the ED. Found to have NSTEMI in the ED and admitted. #Hypotension Has low blood pressure at baseline but during surgery dropped lower and required line placement and pressors Went to the ICU on epinephrine, was able to be extubated and was on BiPAP Epi was changed to levo Continue midodrine and wean pressors We will be very cautious with any fluids given his history of CHF and ESRD Likely due to combination of low BP baseline and multiple comorbidities with anesthesia #MRSA bacteremia Unclear source Both blood cultures positive for MRSA on admission Has CRP of 224 and Pro-Wilbur of 2.16 X-ray of chest suggestive of pneumonia X-ray of toe unremarkable Podiatry consulted Echo already ordered Need to follow blood cultures to assure resolution 05/25: ID consulted. No vegetation seen on echo, CRP was 224 and is now 180. Orthopedics consulted due to right knee pain and x-ray did show moderate volume joint effusion. Thoracic MRI did not show any evidence of acute osteomyelitis or discitis. Right knee tapped and cultures are pending. Remains on vancomycin, blood cultures to be repeated today. Fistula to be evaluated also for possible infection 05/26: Repeat blood culture pending, ID on board. Sputum Growing Staph aureus. AV fistula/dialysis graft scan pending. White blood cell count improving as is CRP. Joint aspiration cultures with Staph aureus, has infection of total right knee replacement and went today to the OR for washout with Dr. Alfaro. ID following, vancomycin continued, Rocephin stopped. 05/27: Status post knee washout on 05/26. CRP continues to downtrend. Intra-Op cultures pending, repeat blood cultures no growth to date. Joint aspiration is growing MRSA #Infection of total right knee replacement Joint aspiration also growing Staph aureus Went for washout 05/26 with orthopedic surgery #Pneumonia Did have WBC elevation with left shift on admission Chest x-ray questionable left lower lobe pneumonia, appears more pronounced this AM Blood cultures growing MRSA IV Rocephin and vancomycin Lactic acidosis resolved As needed albuterol Budesonide Respiratory panel negative Sputum culture and urine antigens ordered 05/25: White blood cell count improving, respiratory status fair 05/26: Continue to monitor respiratory status, sputum culture Growing Staph aureus #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 May need partial amputation on the left in the future but they would like to optimize healing potential by performing a after of revascularization attempt. This can likely be done in outpatient setting #NSTEMI Troponin 1589 on admission and down trended EKG showed A. fib and evidence of old anterior and inferior infarct Echo requested Cardiology consulted Aspirin, statin Beta-carl with holding parameters Had cardiac catheterizations in 2019 as well as 2021 with severe disease but medical therapy was recommended as there did not appear to be a good option for bypass or PCI-medical management again recommended Eliquis held and transition to heparin drip in the event cardiac catheterization would be needed but given no cardiac cath Eliquis resumed 05/25: Spoke with cardiology, at this time medical management recommended #History of atrial fibrillation Eliquis was transitioned to heparin on admission due to NSTEMI but Eliquis to be resumed Continue on amiodarone, metoprolol #Generalized weakness, debility, falls PT/OT Likely will need placement on discharge #Chronic combined CHF/ischemic cardiomyopathy secondary to coronary artery disease status post PCI in 2015 On Lasix chronically as well as metoprolol Lasix held due to concern for dehydration 03/17/2022 echocardiogram with normal LV size, EF 35%, moderate segmental systolic dysfunction, severely enlarged LA, mild MVI, mild to moderate TVI, PASP 57 mmHg with moderate pulmonary hypertension, moderate focal AV calcification with contrast injection performed at that time with improvement of LV systolic function compared to previous echo. Given NSTEMI repeat echo has been ordered 05/25: Repeat echo with EF of 30% with moderately severe segmental systolic dysfunction #Type 2 diabetes mellitus with peripheral neuropathy Glucose checks and sliding scale insulin #End-stage renal disease on hemodialysis Follows with nephrology, last HD 2 days prior to admission Nephro consult Continue midodrine 05/25: Dialysis tomorrow #Cirrhosis of the liver based on documentation Very minimally elevated AST and ALP #DVT prophylaxis: Eliquis Time spent in the patient's overall evaluation,decision-making process, review of diagnostic data, adjustment of management, discussion with other providers, nursing nursing and ancillary staff involved in patient's care documentation, 40 minutes
[2022-05-27] MEDS: Budesonide Respules 0.5 MG/2 ML AMPUL.NEB. INHALATION ×2 (07:29→19:09)
--- NOTE | 2022-05-27 07:43 | EX.PCM.CONCC ---
Assessment & Plan Assessment/Plan (1) MRSA bacteremia: (2) ESRD (end stage renal disease): PLAN: Plan RECOMMENDATIONS: 1. Continue antibiotics per infectious disease 2. Hold on aggressive fluid resuscitation given renal failure 3. Wean pressors as tolerated 4. Potential dialysis versus CVVH tomorrow 5. ICU liberation protocol for delirium and mobility 6. Change goal to systolic blood pressure of 90 7. Encourage incentive spirometer and wean oxygen as tolerated IMPRESSIONS: 1. Septic shock secondary to MRSA Clinical suspicion is for an infected joint leading to MRSA bacteremia. Patient may have an element of hematogenous spread to the lungs leading to retrocardiac infiltrates. Echocardiogram did not suggest endocarditis, but this will need to be seen in follow-up. Cannot exclude the need for BRANDON in the future if blood cultures do not respond to knee intervention. Patient is currently on pressors. Given renal failure, would hold on aggressive fluid resuscitation as patient also has congestive heart failure and this may complicate oxygenation. 2. Chronic left great toe gangrene complicated by peripheral vascular disease Patient being followed by podiatry, vascular surgery and wound care. Unclear if this represents the source, but will need aggressive management. Cannot exclude the need for amputation in the future, but this is not an urgent issue from an ICU standpoint. Patient is a complicated surgical evaluation. 3. Chronic systolic CHF/A. fib/NSTEMI/CAD Patient appears to be doing okay from a hemodynamic standpoint. Patient's EF is significantly reduced, so we will need to watch fluid resuscitation closely. Patient is on minimal pressors at this time and this should not aggravate the A. fib with RVR significantly more than fluid would lead to respiratory compromise. Elevated pulmonary artery pressures likely a function of type II pulmonary hypertension given atrial enlargement, but a right heart catheterization would be necessary for quantification clarification of these findings. 4. End-stage renal disease on hemodialysis/cirrhosis Patient's last dialysis was yesterday. We will attempt to optimize therapy today. Unclear if patient will require CVVH versus standard dialysis tomorrow. Nephrology is following. Ascites does not appear to be significant on physical exam. Patient is on midodrine at baseline and this will be continued. 5. Advanced age/type 2 diabetes with peripheral neuropathy and PVD/recent falls Complicates care, management, recovery and prognosis. Blood sugars are acceptable at this time. Likely okay to initiate a p.o. diet from my perspective as patient is on minimal pressors at this time. Patient will need to be evaluated by PT/OT with orthopedic restrictions. TIME: 33 minutes critical care time spent addressing patient septic shock, ESRD/cirrhosis, CHF, review of all data and collaboration with care team HPI Consult Data Date of Consult: 05/27/22 HPI Narrative HPI Narrative: HANS GLASS is a 81 M, with past medical history listed below, who presented to [facility]23[facility]22 secondary to generalized weakness for 5 days. Patient reportedly had had a couple procedures on his dialysis fistula for a pseudoaneurysm. Patient reportedly did have a fall 4 days prior to presentation without significant injury. Patient had denied any lightheadedness or dizziness. Patient's last dialysis was 2 days prior to presentation, but patient does have a normal lower blood pressure and is on midodrine chronically. Patient had denied any fever, chest pain or abdominal pain at that time. In the ER, patient was noted to be hypotensive at 93/53, but saturating well on room air. Patient was slightly tachypneic at times, but overall was saturating well. Laboratory work-up showed a white blood cell count of 18.2, hemoglobin of 11.1 and platelets of 164. Chemistries were significant for a bicarbonate of 27, creatinine of 7.19 and a glucose of 262. Troponin was elevated at 1589 and lactate was 3.1. Chest x-ray showed a possible retrocardiac left lower lobe infiltrate. Patient was initiated on antibiotics and admitted to the floor. Patient had a complex hospital course with multiple diagnostics including an echocardiogram on 05/24/2022 showing an EF of 30% with normal RV function, but enlarged atria. Pulmonary systolic pressure was noted to be 35 mmHg. Patient ultimately found to have a septic knee joint. Patient was seen by orthopedic surgery, which recommended a washout. Patient went to the OR yesterday for a washout of the knee. Perioperatively patient had some significant issues with hypotension and was managed with an LMA. Patient was initially placed on epinephrine and transferred to the intensive care unit postoperatively. Patient was then transitioned over to Levophed. Patient was noted to have some A. fib with intermittent RVR. Patient has not had any significant respiratory concerns and was able to use his baseline CPAP therapy overnight. Patient reportedly has a lower baseline blood pressure and is on midodrine therapy. Patient is reporting generalized body aches, but states that his knee is responding well to ice therapy. Patient denies any nausea or vomiting. Patient has no respiratory complaints at this time. Review of systems otherwise negative from a constitutional, HEENT, respiratory, cardiovascular, GI, genitourinary, musculoskeletal, skin, neurologic, psychiatric and hematologic system unless stated above. [facility] Medical History Acute combined systolic (congestive) and diastolic (congestive) heart failure Acute respiratory failure with hypoxia and hypercapnia (12/30/19) Ambulates with cane Atherosclerotic heart disease of [place] coronary artery without angina pectoris Axillary adenopathy Chronic combined systolic and diastolic CHF (congestive heart failure) Chronic renal failure, stage 4 (severe) CPAP (continuous positive airway pressure) dependence Diabetic neuropathy associated with type 2 diabetes mellitus Easy bruising Essential (primary) hypertension Excessive bleeding Former smoker Hernia, umbilical, 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) History of edema History of non-ST elevation myocardial infarction (NSTEMI) (12/31/19) History of renal disease Hyperlipidemia Hyperphosphatemia Hypothyroidism Insulin dependent diabetes mellitus Iron deficiency anemia Ischemic cardiomyopathy Left atrial enlargement Longstanding persistent atrial fibrillation Morbid obesity 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 layer exposed Obstructive sleep apnea On home oxygen therapy Pseudoaneurysm of arteriovenous graft Pulmonary edema (12/30/19) Shortness of breath on exertion Type 2 diabetes mellitus Unsteady gait when walking Home Medications aspirin 81 mg tablet,delayed release 81 mg PO DAILY Check with primary doctor 07/17/15 [History Last Taken 01/06/20 08:00] amiodarone 200 mg tablet 200 mg PO DAILY 03/09/22 [History Last Taken Unknown] atorvastatin 40 mg tablet 40 mg PO QHS 03/09/22 [History Last Taken Unknown] ergocalciferol (vitamin D2) 50 mcg (2,000 unit) capsule 50 mcg PO .2X month 03/09/22 [History Last Taken Unknown] furosemide 40 mg tablet 40 mg PO DAILY Weight Gain 03/09/22 [History Last Taken Unknown] metoprolol succinate 25 mg tablet,extended release 24 hr 25 mg PO DAILY 03/09/22 [History Last Taken Unknown] midodrine 10 mg tablet 10 mg PO DAILY 03/09/22 [History Last Taken Unknown] sevelamer carbonate 800 mg tablet 1,600 mg PO TID supplement 03/09/22 [History Last Taken Unknown] tamsulosin 0.4 mg capsule 0.4 mg PO DAILY 03/09/22 [History Last Taken Unknown] apixaban 2.5 mg tablet (Eliquis) 2.5 mg PO BID #180 tabs 05/10/22 [Rx Last Taken Unknown] multivitamin 1 tab PO DAILY 05/13/22 [History Last Taken Unknown] polyethylene glycol 3350 17 gram oral powder packet (Miralax) 17 g PO DAILY 05/13/22 [History Last Taken Unknown] midodrine 10 mg tablet 10 mg PO MOWEFR BP 05/24/22 [History Last Taken Unknown] Allergy/AdvReac Type Severity Reaction Status Date / Time Penicillins AdvReac Severe Swelling Verified 05/23/22 17:54 Family History Father , age 79, of embolism CAD (coronary artery disease) Embolism Myocardial infarction Mother , age 74 Kidney disease renal failure Brother Kidney disease Sister Breast cancer Surgical History History of back surgery (01/2019) History of coronary artery stent placement (06/03/15) History of herniorrhaphy (09/2021) History of left heart catheterization (09/14/21) History of total right knee replacement History of total right knee replacement (TKR) S/P arteriovenous (AV) fistula creation Surgically created abdominal mucous fistula (09/2021) Social History household members: none Smoking Status: Former smoker how long ago did patient quit smokin second hand exposure: No alcohol intake: never substance use type: does not use ROS ROS Narrative See HPI Physical Exam Const alert, oriented x3 and no apparent distress Constitutional Narrative: On CPAP therapy during my evaluation, but wakes and answers questions readily. General Appearance: cooperative HEENT normocephalic and head/scalp atraumatic Eyes PERRL, EOMs intact bilaterally and no scleral icterus Neck full ROM, supple and No nodes Chest inspection of chest normal Resp clear to auscultation bilaterally Auscultation: diminished lung sounds; Negative for rales, rhonchi or wheezes Cardio regular rate, S1 normal heart sound, S2 normal heart sound, no murmurs, no rub and no gallops; Negative for regular rhythm Rhythm: abnormal rhythm irregularly irregular GI soft to palpation, non-tender and non-distended Extremity Extremity Narrative: R knee swelling, warmth, tenderness. Upper t-spine point tenderness. No other focal joint inflammation. Left toe gangrene General Extremity: edema Skin Skin Narrative: LUE fistula nontender, (+) thrill. No splinter hemorrhages on fingers. L 1st toe with dry gangrene. Neuro CN's II-XII intact bilaterally Psych cooperative and affect normal Medical Records Data Attestation: I reviewed the patient's medical records Medical records narrative: Hospital course was reviewed prior to the ICU stay. Briefly summarized in HPI Lab / Micro Data Attestation: I reviewed the patient's lab results. Lab results narrative: Multiple cultures were reviewed. Patient has had staff aureus/MRSA noted in multiple cultures Result Diagrams: 05/27/22 04:30 05/27/22 04:30 Labs: Laboratory Results - last 24 hr 05/25/22 14:35: Synovial Path Comment Reviewed 05/26/22 05:57: Procalcitonin 2.59 H 05/26/22 05:57: Hemoglobin A1c 5.9 H 05/26/22 10:59: POC Glucose 142 H 05/26/22 17:10: Troponin I High Sens 661 H* 05/26/22 17:16: Blood Type B POSITIVE, Antibody Screen NEGATIVE, Crossmatch See Detail 05/26/22 22:45: POC Glucose 225 H 05/26/22 : Hgb 9.6 L, Hct 30.6 L 05/26/22 : Blood Type Cancelled, Antibody Screen Cancelled, Crossmatch See Detail 05/27/22 04:30: WBC 19.4 H, RBC 3.11 L, Hgb 9.4 L, Hct 29.7 L, MCV 95.5 H, MCH 30.2, MCHC 31.6 L, RDW Std Deviation 54.3 H, RDW Coeff of Moni 15.6 H, Plt Count 242, MPV 10.1, Immature Gran % (Auto) 2.800 H, Neut % (Auto) 90.0 H, Lymph % (Auto) 2.6 L, [place] % (Auto) 4.2, Eos % (Auto) 0.1, Baso % (Auto) 0.3, Absolute Neuts (auto) 17.4 H, Absolute Lymphs (auto) 0.50 L, Nucleated RBC % 0, Differential Comment SCANNED 05/27/22 04:30: Sodium 132 L, Potassium 5.3 H, Chloride 98, Carbon Dioxide 24.0, Anion Gap 10, BUN 53 H, Creatinine 4.50 H, Estim Creat Clear Calc 12.88, Est GFR (MDRD) Af Amer 16 L, Est GFR (MDRD) Non-Af 14 L, BUN/Creatinine Ratio 11.8, Glucose 210 H, Calcium 9.3, Total Bilirubin 0.50, AST 39 H, ALT 46, Alkaline Phosphatase 172 H, C-React Prot Ext Range 167.00 H, Total Protein 6.5, Albumin 1.8 L, Globulin 4.7 H, Albumin/Globulin Ratio 0.4 L Micro: Microbiology 05/25/22 14:35 Fluid - Synovial (joint) Gram Stain - Final 05/25/22 14:35 Fluid - Synovial (joint) Body Fluid Culture - Final Meth. resistant Staph. aureus 05/25/22 19:46 Blood Culture (Wb) - Anticubital Right Blood Culture - Preliminary 05/25/22 10:00 Blood Culture (Wb) - Right Hand Blood Culture - Preliminary 05/24/22 19:25 Sputum, Expectorated/Coughed Gram Stain - Final 05/24/22 19:25 Sputum, Expectorated/Coughed Respiratory Culture - Preliminary Staphylococcus aureus 05/23/22 19:10 Blood Culture (Wb) - Anticubital Right Bacteria Detection (PCR) - Final Staphylococcus aureus mecA Resistance Marker 05/23/22 19:10 Blood Culture (Wb) - Anticubital Right Blood Culture - Final Meth. resistant Staph. aureus 05/23/22 18:16 Blood Culture (Wb) - Right Forearm Blood Culture - Final Meth. resistant Staph. aureus ABG Data ABG results: ABG 05/26/22 05/26/22 05/26/22 18:11 18:19 18:25 Specimen Type AYAKA AYAKA ART pH 7.27 L 6.95 L* 7.40 Bicarbonate Actual 21.0 L 12.1 L 21.6 L Total CO2 22 14 23 Base Excess -6 L -20 L -3 L O2 Saturation 82 L 67 L 100 H ABG pCO2 46.3 H 54.7 H 34.7 L ABG pO2 53 L 55 L 367 H* Crit Call To/Read Back Yes Yes Blood Gas Notified Whom jass regan Attestation: I personally reviewed and interpreted this ABG as follows: (Fully compensated metabolic acidosis with normal AA gradient) Charges/Coding Procedures Hospitalists Procedures: 44611 Critial Care 1st Hr
--- NOTE | 2022-05-27 09:37 | PN.ORTHO_ITS ---
Subjective Subjective The patient was sitting in bed upon examination. Patient denies any chest pain, shortness of breath, dizziness, lightheadedness, nausea or vomiting, or calf pain. Pain is controlled on medications. Patient reports no pain in his right knee at this time. Family member is present during time of examination. He had no significant complaints today. Patient is currently in the ICU recovering postoperatively. Objective Data Objective Data Vital Signs: Vital Signs Temp Pulse Resp BP Pulse Ox O2 Del Method O2 Flow Rate 97 F L 56 L 21 H 108/42 L 95 Nasal Cannula 1 05/27/22 08:00 05/27/22 09:00 05/27/22 09:00 05/27/22 09:15 05/27/22 09:00 05/27/22 09:00 05/27/22 09:00 FiO2 40 05/26/22 19:15 Oxygen Flow Rate (L/min) 1 Oxygen Delivery Method Nasal Cannula Weight: 101.8 kg Body Mass Index (BMI) 32.6 Intake & Output: Intake and Output for Last 24 Hours 05/25/22 05/26/22 05/27/22 23:59 23:59 23:59 Intake Total 50 / 50 607.59 / 616.99 198.44 / 198.44 Output Total 0 / 0 700 / 700 0 / 0 Balance 50 / 50 -92.41 / -83.01 198.44 / 198.44 Lab / Micro Data Result Diagrams: 05/27/22 04:30 05/27/22 04:30 Labs: Laboratory Results - last 24 hr 05/25/22 14:35: Synovial Path Comment Reviewed 05/26/22 10:59: POC Glucose 142 H 05/26/22 17:10: Troponin I High Sens 661 H* 05/26/22 17:16: Blood Type B POSITIVE, Antibody Screen NEGATIVE, Crossmatch See Detail 05/26/22 22:45: POC Glucose 225 H 05/26/22 : Hgb 9.6 L, Hct 30.6 L 05/26/22 : Blood Type Cancelled, Antibody Screen Cancelled, Crossmatch See Detail 05/27/22 04:30: WBC 19.4 H, RBC 3.11 L, Hgb 9.4 L, Hct 29.7 L, MCV 95.5 H, MCH 30.2, MCHC 31.6 L, RDW Std Deviation 54.3 H, RDW Coeff of Moni 15.6 H, Plt Count 242, MPV 10.1, Immature Gran % (Auto) 2.800 H, Neut % (Auto) 90.0 H, Lymph % (Auto) 2.6 L, [place] % (Auto) 4.2, Eos % (Auto) 0.1, Baso % (Auto) 0.3, Absolute Neuts (auto) 17.4 H, Absolute Lymphs (auto) 0.50 L, Nucleated RBC % 0, Differential Comment SCANNED 05/27/22 04:30: Sodium 132 L, Potassium 5.3 H, Chloride 98, Carbon Dioxide 24.0, Anion Gap 10, BUN 53 H, Creatinine 4.50 H, Estim Creat Clear Calc 12.88, Est GFR (MDRD) Af Amer 16 L, Est GFR (MDRD) Non-Af 14 L, BUN/Creatinine Ratio 11.8, Glucose 210 H, Calcium 9.3, Total Bilirubin 0.50, AST 39 H, ALT 46, Alkaline Phosphatase 172 H, C-React Prot Ext Range 167.00 H, Total Protein 6.5, Albumin 1.8 L, Globulin 4.7 H, Albumin/Globulin Ratio 0.4 L Micro: Microbiology 05/25/22 19:46 Blood Culture (Wb) - Anticubital Right Blood Culture - Preliminary Staphylococcus aureus 05/25/22 14:35 Fluid - Synovial (joint) Gram Stain - Final 05/25/22 14:35 Fluid - Synovial (joint) Body Fluid Culture - Final Meth. resistant Staph. aureus 05/25/22 10:00 Blood Culture (Wb) - Right Hand Blood Culture - Preliminary 05/24/22 19:25 Sputum, Expectorated/Coughed Gram Stain - Final 05/24/22 19:25 Sputum, Expectorated/Coughed Respiratory Culture - Preliminary Staphylococcus aureus 05/23/22 19:10 Blood Culture (Wb) - Anticubital Right Bacteria Detection (PCR) - Final Staphylococcus aureus mecA Resistance Marker 05/23/22 19:10 Blood Culture (Wb) - Anticubital Right Blood Culture - Final Meth. resistant Staph. aureus 05/23/22 18:16 Blood Culture (Wb) - Right Forearm Blood Culture - Final Meth. resistant Staph. aureus 05/23/22 22:40 Mucosa - Nasopharyngeal Respiratory Panel (PCR) - Final ABG Data ABG results: ABG 05/26/22 05/26/22 05/26/22 18:11 18:19 18:25 Specimen Type AYAKA AYAKA ART pH 7.27 L 6.95 L* 7.40 Bicarbonate Actual 21.0 L 12.1 L 21.6 L Total CO2 22 14 23 Base Excess -6 L -20 L -3 L O2 Saturation 82 L 67 L 100 H ABG pCO2 46.3 H 54.7 H 34.7 L ABG pO2 53 L 55 L 367 H* Crit Call To/Read Back Yes Yes Blood Gas Notified Whom jass regan Physical Exam Narrative Vital signs stable and afebrile. Patient was alert and oriented x3. Asked questions with regards to his knee and surgery. Did not appear to be in any distress today. Rodríguez wrap was removed to examine the dressing. Patient's Mepilex dressing was clean dry and intact. There is been no evidence of any drainage. Patient is able to plantarflex and dorsiflex actively. Sensation is intact to light touch to saphenous, sural, superficial and deep peroneal, and tibial distribution. Negative Homans bilaterally, negative signs and symptoms of DVT. Const alert, oriented x3 and no apparent distress Assessment & Plan Assessment/Plan (1) Infection of total right knee replacement: PLAN: 1. S/P irrigation debridement right knee with polyethylene exchange POD #1 2. Continue Pain Medications: Recommend Tylenol primarily for pain control. Currently patient is not having any pain in his right knee. 3. DVT Prophylaxis: Discussed case with hospitalist and when appropriate recommend resuming Eliquis for DVT prophylaxis. 4. PT/OT: Recommend beginning physical therapy once medically appropriate. 5. H & H: 9.4/29.7, blood pressures have stabilized. Postoperative acute on chronic anemia secondary to acute blood loss from surgery without any intra operative complications. Patient's hemoglobin was 11.1 on May 23, 2022. Day of surgery patient's hemoglobin was at 9.8. Currently 9.4. Continue to monitor per medicine 6. Continue postoperative medical management per medicine: I did discuss with the hospitalist when medically appropriate recommend resuming Eliquis for DVT prophylaxis. 7. Continue antibiotics per infectious disease: Preoperative aspiration of the knee did reveal MRSA. Current cultures from the surgical procedure are pending. Patient currently on vancomycin. Appreciate recommendations from infectious disease. 8. Encouraged Incentive Spirometry 9. Disposition: Patient orthopedically with regards to his right knee appears to be doing well this morning. Pain is well controlled. 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 Appreciate recommendations from medicine and ICU staff with appropriate treatment postoperatively. Once patient is medically able would recommend resuming Eliquis per medicine. Also recommend once medically stable and able to participate in physical therapy for the knee to begin this for range of motion. Mepilex dressing will remain for the next 1 week. There was no drainage. If we do start to see drainage may consider application of wound VAC and consult to tremaine mckeon wound nurse. We will continue to monitor. Patient will eventually require 2-week postoperative follow-up if he is out of the hospital for x-rays and staple removal. All questions were answered from the patient and family member. This dictation was created using voice recognition software. Phonetic and/or grammatical errors may exist.
[2022-05-27] MEDS: Aspirin E.C. 81 MG Tablet PO (09:45)
[2022-05-27] MEDS: SEVELAMER CARBONATE 800 MG TABLET PO ×3 (09:45→16:55)
[2022-05-27] MEDS: Multivitamins,Therapeutic Tablet 1 TABLET PO (09:45)
[2022-05-27] MEDS: Tamsulosin HCl 0.4 MG Capsule PO (09:46)
[2022-05-27] MEDS: APIXABAN 2.5 MG TABLET (WCH) PO ×2 (09:46→23:22)
--- NOTE | 2022-05-27 11:38 | PN.RENAL_ITS ---
Subjective Subjective Follow-up on ESRD. He has been operated on yesterday and transferred to ICU because of the hypotension. He is still on Levophed. Objective Data Objective Data Vital Signs: Vital Signs Temp Pulse Resp BP Pulse Ox O2 Del Method O2 Flow Rate 97.2 F L 63 19 H 106/43 L 96 Nasal Cannula 1 05/27/22 10:00 05/27/22 11:00 05/27/22 11:00 05/27/22 11:00 05/27/22 11:00 05/27/22 11:00 05/27/22 11:00 FiO2 40 05/26/22 19:15 Oxygen Flow Rate (L/min) 1 Oxygen Delivery Method Nasal Cannula Weight: 101.8 kg Body Mass Index (BMI) 32.6 Intake & Output: Intake and Output for Last 24 Hours 05/25/22 05/26/22 05/27/22 23:59 23:59 23:59 Intake Total 50 / 50 607.59 / 616.99 505.09 / 505.09 Output Total 0 / 0 700 / 700 0 / 0 Balance 50 / 50 -92.41 / -83.01 505.09 / 505.09 Lab / Micro Data Attestation: I reviewed the patient's lab results. Result Diagrams: 05/27/22 04:30 05/27/22 04:30 Labs: Laboratory Results - last 24 hr 05/25/22 14:35: Synovial Path Comment Reviewed 05/26/22 17:10: Troponin I High Sens 661 H* 05/26/22 17:16: Blood Type B POSITIVE, Antibody Screen NEGATIVE, Crossmatch See Detail 05/26/22 22:45: POC Glucose 225 H 05/26/22 : Hgb 9.6 L, Hct 30.6 L 05/26/22 : Blood Type Cancelled, Antibody Screen Cancelled, Crossmatch See Det ail 05/27/22 04:30: WBC 19.4 H, RBC 3.11 L, Hgb 9.4 L, Hct 29.7 L, MCV 95.5 H, MCH 30.2, MCHC 31.6 L, RDW Std Deviation 54.3 H, RDW Coeff of Moni 15.6 H, Plt Count 242, MPV 10.1, Immature Gran % (Auto) 2.800 H, Neut % (Auto) 90.0 H, Lymph % (Auto) 2.6 L, [place] % (Auto) 4.2, Eos % (Auto) 0.1, Baso % (Auto) 0.3, Absolute Neuts (auto) 17.4 H, Absolute Lymphs (auto) 0.50 L, Nucleated RBC % 0, Differential Comment SCANNED 05/27/22 04:30: Sodium 132 L, Potassium 5.3 H, Chloride 98, Carbon Dioxide 24.0, Anion Gap 10, BUN 53 H, Creatinine 4.50 H, Estim Creat Clear Calc 12.88, Est GFR (MDRD) Af Amer 16 L, Est GFR (MDRD) Non-Af 14 L, BUN/Creatinine Ratio 11.8, Glucose 210 H, Calcium 9.3, Total Bilirubin 0.50, AST 39 H, ALT 46, Alkaline Phosphatase 172 H, C-React Prot Ext Range 167.00 H, Total Protein 6.5, Albumin 1.8 L, Globulin 4.7 H, Albumin/Globulin Ratio 0.4 L Micro: Microbiology 05/26/22 Unknown Tissue - Tibial Membrane Wound Culture - Preliminary Gram positive organism 05/26/22 Unknown Tissue - Femoral Membrane Wound Culture - Preliminary No growth-Final to follow 05/26/22 Unknown Tissue - Suprapatellar Pouch Wound Culture - Preliminary No growth-Final to follow 05/25/22 19:46 Blood Culture (Wb) - Anticubital Right Blood Culture - Preliminary Staphylococcus aureus 05/25/22 14:35 Fluid - Synovial (joint) Gram Stain - Final 05/25/22 14:35 Fluid - Synovial (joint) Body Fluid Culture - Final Meth. resistant Staph. aureus 05/25/22 10:00 Blood Culture (Wb) - Right Hand Blood Culture - Preliminary 05/24/22 19:25 Sputum, Expectorated/Coughed Gram Stain - Final 05/24/22 19:25 Sputum, Expectorated/Coughed Respiratory Culture - Preliminary Staphylococcus aureus 05/23/22 19:10 Blood Culture (Wb) - Anticubital Right Bacteria Detection (PCR) - Final Staphylococcus aureus mecA Resistance Marker 05/23/22 19:10 Blood Culture (Wb) - Anticubital Right Blood Culture - Final Meth. resistant Staph. aureus 05/23/22 18:16 Blood Culture (Wb) - Right Forearm Blood Culture - Final Meth. resistant Staph. aureus 05/23/22 22:40 Mucosa - Nasopharyngeal Respiratory Panel (PCR) - Final ABG Data ABG results: ABG 05/26/22 05/26/22 05/26/22 18:11 18:19 18:25 Specimen Type AYAKA AYAKA ART pH 7.27 L 6.95 L* 7.40 Bicarbonate Actual 21.0 L 12.1 L 21.6 L Total CO2 22 14 23 Base Excess -6 L -20 L -3 L O2 Saturation 82 L 67 L 100 H ABG pCO2 46.3 H 54.7 H 34.7 L ABG pO2 53 L 55 L 367 H* Crit Call To/Read Back Yes Yes Blood Gas Notified Whom jass regan Physical Exam Narrative Elderly male in no acute distress Awake, alert and appropriate, family is at bedside Head is atraumatic normocephalic Chest is clear Heart is a regular Minimal edema AV fistula left upper arm with good bruit and thrill Assessment & Plan Assessment/Plan (1) ESRD (end stage renal disease): PLAN: He is status post hemodialysis yesterday, only 600 cc has been removed due to hypotension. Nevertheless Crit-Line showed profile a. He has no respiratory compromise, but blood pressure still soft. Does not need dialysis today even though his potassium is mildly elevated. We will dialyze him tomorrow with low potassium bath, fluid removal as tolerates.
--- NOTE | 2022-05-27 12:03 | CHAPLAIN ---
Type of Pastoral Visit ___ Initial Visit _x__ Follow-up Visit ___ On-call Visit ___ General Patient Visit ___ Spiritual Assessment ___ Family Conference ___ Bereavement ___ Rapid Response ___ Code Blue ___ Other (describe below) Pastoral Care Referral From _x__ Patient ___ Family ___ Nurse ___ Physician ___ Electrical Development Engineer ___ Building Guard Deputy Sheriff ___ Other (describe below) Sacrament/Intervention _x__ Active listening ___ Anointing ___ Zoroastrian ___ Bereavement ___ Communion ___ Augustina exploration ___ ___ Life review _x__ Prayer ___ Reconciliation ___ Sacrament of Sick _x__ Supportive presence ___ Wedding ___ Other (describe below) Pastoral Comments patient follow up; pt reports on update and events of yesterday; pt states that he is doing pretty well; spouse and daughter are with him; pt just had communion from [facility]; pt states that he would like prayer support; pt gives casual conversation; supportive presence for family as well
[2022-05-27] MEDS: 0.9% Saline Lock 10 ML Syringe IV (12:07)
[2022-05-27 12:31] LABS: Bedside Glucose 275 mg/dL (74-106)
[2022-05-27] MEDS: Polyethylene Glycol 3350 17 GM PACKET PO (14:29)
[2022-05-27] MEDS: Acetaminophen 325 MG Tablet 650 MG PO ×2 (16:55→23:21)
[2022-05-27 17:10] LABS: Bedside Glucose 314 mg/dL (74-106)
[2022-05-27] MEDS: MELATONIN 3 MG TABLET PO (23:22)
[2022-05-27] MEDS: Atorvastatin Calcium 40 MG Tablet PO (23:22)
[2022-05-27 23:50] LABS: Bedside Glucose 258 mg/dL (74-106)
[2022-05-28] VITALS (25 sets, daily range): BP systolic 77–107; BP diastolic 31–59; PULSE 58–76; RESP 16–27; TEMP 36–37.1; O2SAT 95–99
[2022-05-28 04:07] LABS: Absolute Neutrophil Count 8.2 X10^3/uL (2.0-7.7); Basophil# 0.02 X10^3/uL; Basophil% 0.2 % (0-1); Eosinophil# 0.11 X10^3/uL; Eosinophils% 1.2 % (0-5); Hematocrit 26.2 % (40-54); Hemoglobin 8.3 g/dL (13.0-16.5); Lymphocyte % 3.3 % (19-41); Mean Corp Hgb Conc 31.7 g/dL (32-36); Mean Corpuscular Hgb 30.3 pg (27.0-32.0); Mean Corpuscular Volume 95.6 fL (80-94); Mean Platelet Vol. 9.8 fl (6.2-12.0); Monocyte# 0.34 X10^3/uL; Monocyte% 3.7 % (0-10); NRBC Flagged by Analyzer 0 % (0-5); Neutrophil # 8.16 X10^3/uL (2.7-7.7); Neutrophil % 89.5 % (47-70); POSITIVE DIFFERENTIAL YES; Platelet Count 174 K/mm3 (150-450); RBC Distribution Width CV 15.7 % (11.6-14.6); RBC Distribution Width SD 55.3 fl (35.1-43.9); Red Blood Count 2.74 M/mm3 (4.6-6.2); White Blood Count 9.1 K/mm3 (4.4-11.0)
[2022-05-28 04:10] LABS: Differential Indicated SCAN CRITERIA MET
[2022-05-28 04:24] LABS: ALB/GLOB Ratio 0.4 RATIO (0.9-2.4); AST(SGOT) 92 U/L (15-37); Alanine Aminotransfer ALT/SGPT 75 U/L (16-61); Albumin, Serum 1.6 g/dL (3.2-5.0); Alkaline Phosphatase 257 U/L (45-117); Anion Gap 12 (5-15); BUN 77 mg/dL (7-18); BUN/Creat Ratio 14.5 RATIO (10-20); Calcium,Total 8.8 mg/dL (8.5-10.1); Chloride 96 mmol/L (98-107); Creatinine, Serum 5.31 mg/dL (0.70-1.30); EST Glomerular Filtration Rate 11 mL/min (>60); Est Glom Filt Rate - Afr Amer 14 mL/min (>60); Estimated Creatinine Clearance 10.91 ml/min; Globulin 4.4 g/dL (2.2-4.2); Glucose 262 mg/dL (74-106); Potassium 4.7 mmol/L (3.5-5.1); Sodium Level 130 mmol/L (136-145)
[2022-05-28 05:04] LABS: Differential Comment SCANNED
--- NOTE | 2022-05-28 06:15 | PN.ORTHO_ITS ---
Subjective Subjective The patient was sitting in bed upon examination upon sleeping. Patient denies any chest pain, shortness of breath, dizziness, lightheadedness, nausea or vomiting, or calf pain. Pain is controlled on medications. No adverse overnight events. Patient has no complaints with regards to his right knee. He has been followed by infectious disease. Microbiology was reviewed which did reveal gram-positive cocci in the Gram stain and culture on the tibial membrane. The other 2 specimens were with no growth. Objective Data Objective Data Vital Signs: Vital Signs Temp Pulse Resp BP Pulse Ox O2 Del Method O2 Flow Rate 98 F 67 26 H 101/40 L 96 Nasal Cannula 1 05/27/22 20:00 05/28/22 04:00 05/28/22 04:00 05/28/22 04:00 05/28/22 04:00 05/28/22 04:00 05/28/22 04:00 FiO2 40 05/26/22 19:15 Oxygen Flow Rate (L/min) 1 Oxygen Delivery Method Nasal Cannula Weight: 103.5 kg Body Mass Index (BMI) 32.6 Intake & Output: Intake and Output for Last 24 Hours 05/26/22 05/27/22 05/28/22 23:59 23:59 23:59 Intake Total 607.59 / 616.99 835.09 / 985.09 150 / 150 Output Total 700 / 700 0 / 0 Balance -92.41 / -83.01 835.09 / 985.09 150 / 150 Lab / Micro Data Result Diagrams: 05/28/22 04:02 05/28/22 04:02 Labs: Laboratory Results - last 24 hr 05/27/22 12:06: POC Glucose 275 H 05/27/22 16:54: POC Glucose 314 H 05/27/22 23:28: POC Glucose 258 H 05/28/22 04:02: WBC 9.1, RBC 2.74 L, Hgb 8.3 L, Hct 26.2 L, MCV 95.6 H, MCH 30.3, MCHC 31.7 L, RDW Std Deviation 55.3 H, RDW Coeff of Moni 15.7 H, Plt Count 174, MPV 9.8, Immature Gran % (Auto) 2.100 H, Neut % (Auto) 89.5 H, Lymph % (Auto) 3.3 L, [place] % (Auto) 3.7, Eos % (Auto) 1.2, Baso % (Auto) 0.2, Absolute Neuts (auto) 8.2 H, Absolute Lymphs (auto) 0.30 L, Nucleated RBC % 0, Differential Comment SCANNED 05/28/22 04:02: Sodium 130 L, Potassium 4.7, Chloride 96 L, Carbon Dioxide 22.0, Anion Gap 12, BUN 77 H, Creatinine 5.31 H, Estim Creat Clear Calc 10.91, Est GFR (MDRD) Af Amer 14 L, Est GFR (MDRD) Non-Af 11 L, BUN/Creatinine Ratio 14.5, Glucose 262 H, Calcium 8.8, Total Bilirubin 0.30, AST 92 H, ALT 75 H, Alkaline Phosphatase 257 H, C-React Prot Ext Range 128.00 H, Total Protein 6.0 L, Albumin 1.6 L, Globulin 4.4 H, Albumin/Globulin Ratio 0.4 L Micro: Microbiology 05/27/22 10:25 Blood Culture (Wb) - Central Line Blood Culture - Preliminary 05/26/22 21:25 Blood Culture (Wb) - Anticubital Right Blood Culture - Preliminary 05/26/22 Unknown Tissue - Tibial Membrane Gram Stain - Final 05/26/22 Unknown Tissue - Tibial Membrane Wound Culture - Preliminary Gram Positive Cocci 05/26/22 Unknown Tissue - Femoral Membrane Gram Stain - Final 05/26/22 Unknown Tissue - Femoral Membrane Wound Culture - Preliminary No growth-Final to follow 05/26/22 Unknown Tissue - Suprapatellar Pouch Gram Stain - Final 05/26/22 Unknown Tissue - Suprapatellar Pouch Wound Culture - Preliminary No growth-Final to follow 05/25/22 19:46 Blood Culture (Wb) - Anticubital Right Blood Culture - Preliminary Staphylococcus aureus 05/25/22 14:35 Fluid - Synovial (joint) Gram Stain - Final 05/25/22 14:35 Fluid - Synovial (joint) Body Fluid Culture - Final Meth. resistant Staph. aureus 05/25/22 10:00 Blood Culture (Wb) - Right Hand Blood Culture - Preliminary 05/24/22 19:25 Sputum, Expectorated/Coughed Gram Stain - Final 05/24/22 19:25 Sputum, Expectorated/Coughed Respiratory Culture - Preliminary Staphylococcus aureus 05/23/22 19:10 Blood Culture (Wb) - Anticubital Right Bacteria Detection (PCR) - Final Staphylococcus aureus mecA Resistance Marker 05/23/22 19:10 Blood Culture (Wb) - Anticubital Right Blood Culture - Final Meth. resistant Staph. aureus 05/23/22 18:16 Blood Culture (Wb) - Right Forearm Blood Culture - Final Meth. resistant Staph. 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 No area of active flow identified. This pseudoaneurysm is slightly smaller from previously 1.95 x 3.38 x 4.2 on May 20, 2022 Widely patent left upper arm brachial to cephalic arteriovenous anastomosis Proximal fistula suggest high flow and 1117 mm/min flow. The distal fistula demonstrates adequate 516 mm/min flow This aneurysm slightly smaller from the previous measurements of 1.81 x 3.28 x 3.93 cm as of May 20, 2022 Ordering Physician: Steve Dueñas Referring Physician: Masha Treviño M.D. Performed By: Janee Laguna RVT Physical Exam Narrative Vital signs stable and afebrile. Patient's blood pressures have been running lower overnight. He denies any dizziness or lightheadedness. Patient is able to plantarflex and dorsiflex actively. Sensation is intact to light touch to saphenous, sural, superficial and deep peroneal, and tibial distribution. Rodríguez wrap currently over right knee. Mepilex dressing is clean dry and intact. Negative Homans bilaterally, negative signs and symptoms of DVT. Const alert, oriented x3 and no apparent distress General Appearance: cooperative and comfortable Resp Resp Narrative: On CPAP machine Extremity Extremity Narrative: Right lower extremity: Dressing is clean dry and intact. Exam minimal secondary to stay in ICU. Neuro vas intact distally. Positive dorsiflexion EHL and plantar flexion. Calves are soft and supple. Assessment & Plan Assessment/Plan (1) Infection of total right knee replacement: PLAN: 1. S/P irrigation debridement right knee with polyethylene exchange POD #2 2. Continue Pain Medications: Recommend Tylenol primarily for pain control. Currently patient is not having any pain in his right knee. 3. DVT Prophylaxis: Patient has resumed his Eliquis 4. PT/OT: Recommend beginning physical therapy once medically appropriate. 5. H & H: 8.3/26.2, patient has been having some lower blood pressure however he denies any dizziness or lightheadedness. Postoperative acute on chronic anemia secondary to acute blood loss from surgery without any intra operative complications. Patient's hemoglobin was 11.1 on May 23, 2022. Day of surgery patient's hemoglobin was at 9.8. Appreciate recommendations from medici al for continued following. 6. Continue postoperative medical management per medicine 7. Continue antibiotics per infectious disease: Preoperative aspiration of the knee did reveal MRSA. There is been gram-positive cocci with Gram stain and culture on the tibial membrane. The other 2 specimens were without any growth. Patient has active order for vancomycin. Appreciate recommendations from i nfectious disease with regards to antibiotic coverage. 8. Encouraged Incentive Spirometry 9. Disposition: Patient orthopedically with regards to his right knee appears to be doing well this morning. Pain is well controlled. 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 Appreciate recommendations from medicine and ICU staff with appropriate treatment postoperatively. Also recommend once medically stable and able to participate in physical therapy for the knee to begin this for range of motion. Mepilex dressing will remain for the next 1 week. There was no drainage today. May consider application of wound VAC and consult to the wound nurse. Patient will eventually require 2-week postoperative follow-up if he is out of the hospital for x-rays and staple removal. Patient is orthopedically stable. If there are any concerns or questions from orthopedic standpoint please contact Dr. Francisco Alfaro at [phone]. This dictation was created using voice recognition software. Phonetic and/or grammatical errors may exist.
[2022-05-28] MEDS: Budesonide Respules 0.5 MG/2 ML AMPUL.NEB. INHALATION (06:57)
[2022-05-28] MEDS: Midodrine HCl 5 MG Tablet 10 MG PO ×3 (06:57→21:11)
--- NOTE | 2022-05-28 07:05 | PN.CC_ITS ---
Assessment & Plan Assessment/Plan (1) MRSA bacteremia: (2) ESRD (end stage renal disease): PLAN: Plan RECOMMENDATIONS: 1. Continue antibiotics per infectious disease 2. Volume removal with dialysis of possible 3. Keep pressors on MAR for possible dialysis support 4. Potential dialysis versus CVVH tomorrow 5. ICU liberation protocol for delirium and mobility 6. Remove lines if able to tolerate hemodialysis 7. Encourage incentive spirometer and wean oxygen as tolerated IMPRESSIONS: 1. Septic shock secondary to MRSA Clinical suspicion is for an infected joint leading to MRSA bacteremia. Patient may have an element of hematogenous spread to the lungs leading to retrocardiac infiltrates. Echocardiogram did not suggest endocarditis, but this will need to be seen in follow-up. Cannot exclude the need for BRANDON in the future if blood cultures do not respond to knee intervention. Patient is currently not on pressors. Given renal failure, would hold on aggressive fluid resuscitation as patient also has congestive heart failure and this may complicate oxygenation. CRP is suggestive that inflammatory response is improving. If patient is able to tolerate hemodialysis today, can remove femoral lines. This should help with activity. 2. Chronic left great toe gangrene complicated by peripheral vascular disease Patient being followed by podiatry, vascular surgery and wound care. Unclear if this represents the source, but will need aggressive management. Cannot exclude the need for amputation in the future, but this is not an urgent issue from an ICU standpoint. Patient is a complicated surgical evaluation. 3. Chronic systolic CHF/A. fib/NSTEMI/CAD Patient appears to be doing okay from a hemodynamic standpoint. Patient's EF is significantly reduced, so we will need to watch fluid resuscitation closely. Patient is on minimal pressors at this time and this should not aggravate the A. fib with RVR significantly more than fluid would lead to respiratory compromise. Elevated pulmonary artery pressures likely a function of type II pulmonary hypertension given atrial enlargement, but a right heart ca theterization would be necessary for quantification clarification of these findings. 4. End-stage renal disease on hemodialysis/cirrhosis Patient's last dialysis was 2 days ago. Today is patient's standard dialysis day. Unclear if patient will require CVVH versus standard dialysis today. Nephrology is following. Ascites does not appear to be significant on physical exam. Patient is on midodrine at baseline and this will be continued. 5. Advanced age/type 2 diabetes with peripheral neuropathy and PVD/recent falls Complicates care, management, recovery and prognosis. Blood sugars are acceptable at this time. Likely okay to initiate a p.o. diet from my perspective as patient is on minimal pressors at this time. Patient will need to be evaluated by PT/OT with orthopedic restrictions. Subjective Subjective Patient did well overnight. Patient was able to come off of pressors at approximately 3 AM. Patient has had a junctional rhythm, but saturating well on minimal nasal cannula. Patient did wear CPAP overnight with sleep. Patient is asking for the ability to get out of bed today. Objective Data Objective Data Vital Signs: Vital Signs Temp Pulse Resp BP Pulse Ox O2 Del Method O2 Flow Rate 36.6 C 64 21 H 107/44 L 96 Nasal Cannula 2 05/28/22 05:00 05/28/22 06:00 05/28/22 06:00 05/28/22 06:00 05/28/22 06:00 05/28/22 04:00 05/28/22 06:00 FiO2 40 05/26/22 19:15 Oxygen Flow Rate (L/min) 2 Oxygen Delivery Method Nasal Cannula Weight: 103.5 kg Body Mass Index (BMI) 32.6 Intake & Output: Intake and Output for Last 24 Hours 05/26/22 05/27/22 05/28/22 23:59 23:59 23:59 Intake Total 607.59 / 616.99 835.09 / 985.09 225 / 225 Output Total 700 / 700 0 / 0 Balance -92.41 / -83.01 835.09 / 985.09 225 / 225 Lab / Micro Data Attestation: I reviewed the patient's lab results. Result Diagrams: 05/28/22 04:02 05/28/22 04:02 Labs: Laboratory Results - last 24 hr 05/27/22 12:06: POC Glucose 275 H 05/27/22 16:54: POC Glucose 314 H 05/27/22 23:28: POC Glucose 258 H 05/28/22 04:02: WBC 9.1, RBC 2.74 L, Hgb 8.3 L, Hct 26.2 L, MCV 95.6 H, MCH 30.3, MCHC 31.7 L, RDW Std Deviation 55.3 H, RDW Coeff of Moni 15.7 H, Plt Count 174, MPV 9.8, Immature Gran % (Auto) 2.100 H, Neut % (Auto) 89.5 H, Lymph % (Auto) 3.3 L, [place] % (Auto) 3.7, Eos % (Auto) 1.2, Baso % (Auto) 0.2, Absolute Neuts (auto) 8.2 H, Absolute Lymphs (auto) 0.30 L, Nucleated RBC % 0, Differe ntial Comment SCANNED 05/28/22 04:02: Sodium 130 L, Potassium 4.7, Chloride 96 L, Carbon Dioxide 22.0, Anion Gap 12, BUN 77 H, Creatinine 5.31 H, Estim Creat Clear Calc 10.91, Est GFR (MDRD) Af Amer 14 L, Est GFR (MDRD) Non-Af 11 L, BUN/Creatinine Ratio 14.5, Glucose 262 H, Calcium 8.8, Total Bilirubin 0.30, AST 92 H, ALT 75 H, Alkaline Phosphatase 257 H, C-React Prot Ext Range 128.00 H, Total Protein 6.0 L, Albumin 1.6 L, Globulin 4.4 H, Albumin/Globulin Ratio 0.4 L Micro: Microbiology 05/27/22 10:25 Blood Culture (Wb) - Central Line Blood Culture - Preliminary 05/26/22 21:25 Blood Culture (Wb) - Anticubital Right Blood Culture - Preliminary 05/26/22 Unknown Tissue - Tibial Membrane Gram Stain - Final 05/26/22 Unknown Tissue - Tibial Membrane Wound Culture - Preliminary Gram Positive Cocci 05/26/22 Unknown Tissue - Femoral Membrane Gram Stain - Final 05/26/22 Unknown Tissue - Femoral Membrane Wound Culture - Preliminary No growth-Final to follow 05/26/22 Unknown Tissue - Suprapatellar Pouch Gram Stain - Final 05/26/22 Unknown Tissue - Suprapatellar Pouch Wound Culture - Preliminary No growth-Final to follow 05/25/22 19:46 Blood Culture (Wb) - Anticubital Right Blood Culture - Preliminary Staphylococcus aureus 05/25/22 14:35 Fluid - Synovial (joint) Gram Stain - Final 05/25/22 14:35 Fluid - Synovial (joint) Body Fluid Culture - Final Meth. resistant Staph. aureus 05/25/22 10:00 Blood Culture (Wb) - Right Hand Blood Culture - Preliminary 05/24/22 19:25 Sputum, Expectorated/Coughed Gram Stain - Final 05/24/22 19:25 Sputum, Expectorated/Coughed Respiratory Culture - Preliminary Staphylococcus aureus 05/23/22 19:10 Blood Culture (Wb) - Anticubital Right Bacteria Detection (PCR) - Final Staphylococcus aureus mecA Resistance Marker 05/23/22 19:10 Blood Culture (Wb) - Anticubital Right Blood Culture - Final Meth. resistant Staph. aureus 05/23/22 18:16 Blood Culture (Wb) - Right Forearm Blood Culture - Final Meth. resistant Staph. 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 No area of active flow identified. This pseudoaneurysm is slightly smaller from previously 1.95 x 3.38 x 4.2 on May 20, 2022 Widely patent left upper arm brachial to cephalic arteriovenous anastomosis Proximal fistula suggest high flow and 1117 mm/min flow. The distal fistula demonstrates adequate 516 mm/min flow This aneurysm slightly smaller from the previous measurements of 1.81 x 3.28 x 3.93 cm as of May 20, 2022 Ordering Physician: Steve Dueñas Referring Physician: Masha Treviño M.D. Performed By: Janee Laguna RVT Rhythm Strip Rhythm Strip: Junctional Rate: 67 Physical Exam Const alert, oriented x3 and no apparent distress Constitutional Narrative: On CPAP therapy during my evaluation, but wakes and answers questions readily. General Appearance: cooperative HEENT normocephalic and head/scalp atraumatic Eyes PERRL, EOMs intact bilaterally and no scleral icterus Neck full ROM, supple and No nodes Neck Narrative: Right IJ peripheral line Chest inspection of chest normal Resp Auscultation: rales and diminished lung sounds; Negative for rhonchi or wheezes Cardio regular rate, S1 normal heart sound, S2 normal heart sound, no murmurs, no rub and no gallops; Negative for regular rhythm Rhythm: abnormal rhythm irregularly irregular GI soft to palpation, non-tender and non-distended Extremity Extremity Narrative: Right knee dressing not removed left toe gangrene General Extremity: edema Skin Skin Narrative: LUE fistula nontender, (+) thrill. No splinter hemorrhages on fingers. L 1st toe with dry gangrene. Neuro CN's II-XII intact bilaterally Psych cooperative and affect normal Charges/Coding Visit Charges Inpatient E&M: 62085 Subs Hosp L3
--- NOTE | 2022-05-28 07:29 | PN.HOSP_ITS ---
Subjective Subjective Anxious to sit up get lines out, will have dialysis this morning and will evaluate how he does with that however has been off pressors now Objective Data Objective Data Vital Signs: Vital Signs Temp Pulse Resp BP Pulse Ox O2 Del Method O2 Flow Rate 97.9 F 64 21 H 107/44 L 96 Nasal Cannula 2 05/28/22 05:00 05/28/22 06:00 05/28/22 06:00 05/28/22 06:00 05/28/22 06:00 05/28/22 04:00 05/28/22 06:00 FiO2 40 05/26/22 19:15 Oxygen Flow Rate (L/min) 2 Oxygen Delivery Method Nasal Cannula Weight: 103.5 kg Body Mass Index (BMI) 32.6 Intake & Output: Intake and Output for Last 24 Hours 05/26/22 05/27/22 05/28/22 23:59 23:59 23:59 Intake Total 607.59 / 616.99 835.09 / 985.09 225 / 225 Output Total 700 / 700 0 / 0 Balance -92.41 / -83.01 835.09 / 985.09 225 / 225 Lab / Micro Data Result Diagrams: 05/28/22 04:02 05/28/22 04:02 Labs: Laboratory Results - last 24 hr 05/27/22 12:06: POC Glucose 275 H 05/27/22 16:54: POC Glucose 314 H 05/27/22 23:28: POC Glucose 258 H 05/28/22 04:02: WBC 9.1, RBC 2.74 L, Hgb 8.3 L, Hct 26.2 L, MCV 95.6 H, MCH 30.3, MCHC 31.7 L, RDW Std Deviation 55.3 H, RDW Coeff of Moni 15.7 H, Plt Count 174, MPV 9.8, Immature Gran % (Auto) 2.100 H, Neut % (Auto) 89.5 H, Lymph % (Auto) 3.3 L, [place] % (Auto) 3.7, Eos % (Auto) 1.2, Baso % (Auto) 0.2, Absolute Neuts (auto) 8.2 H, Absolute Lymphs (auto) 0.30 L, Nucleated RBC % 0, Di fferential Comment SCANNED 05/28/22 04:02: Sodium 130 L, Potassium 4.7, Chloride 96 L, Carbon Dioxide 22.0, Anion Gap 12, BUN 77 H, Creatinine 5.31 H, Estim Creat Clear Calc 10.91, Est GFR (MDRD) Af Amer 14 L, Est GFR (MDRD) Non-Af 11 L, BUN/Creatinine Ratio 14.5, Glucose 262 H, Calcium 8.8, Total Bilirubin 0.30, AST 92 H, ALT 75 H, Alkaline Phosphatase 257 H, C-React Prot Ext Range 128.00 H, Total Protein 6.0 L, Albumin 1.6 L, Globulin 4.4 H, Albumin/Globulin Ratio 0.4 L Micro: Microbiology 05/27/22 10:25 Blood Culture (Wb) - Central Line Blood Culture - Preliminary 05/26/22 21:25 Blood Culture (Wb) - Anticubital Right Blood Culture - Preliminary 05/26/22 Unknown Tissue - Tibial Membrane Gram Stain - Final 05/26/22 Unknown Tissue - Tibial Membrane Wound Culture - Preliminary Gram Positive Cocci 05/26/22 Unknown Tissue - Femoral Membrane Gram Stain - Final 05/26/22 Unknown Tissue - Femoral Membrane Wound Culture - Preliminary No growth-Final to follow 05/26/22 Unknown Tissue - Suprapatellar Pouch Gram Stain - Final 05/26/22 Unknown Tissue - Suprapatellar Pouch Wound Culture - Preliminary No growth-Final to follow 05/25/22 19:46 Blood Culture (Wb) - Anticubital Right Blood Culture - Preliminary Staphylococcus aureus 05/25/22 14:35 Fluid - Synovial (joint) Gram Stain - Final 05/25/22 14:35 Fluid - Synovial (joint) Body Fluid Culture - Final Meth. resistant Staph. aureus 05/25/22 10:00 Blood Culture (Wb) - Right Hand Blood Culture - Preliminary 05/24/22 19:25 Sputum, Expectorated/Coughed Gram Stain - Final 05/24/22 19:25 Sputum, Expectorated/Coughed Respiratory Culture - Preliminary Staphylococcus aureus 05/23/22 19:10 Blood Culture (Wb) - Anticubital Right Bacteria Detection (PCR) - Final Staphylococcus aureus mecA Resistance Marker 05/23/22 19:10 Blood Culture (Wb) - Anticubital Right Blood Culture - Final Meth. resistant Staph. aureus 05/23/22 18:16 Blood Culture (Wb) - Right Forearm Blood Culture - Final Meth. resistant Staph. 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 No area of active flow identified. This pseudoaneurysm is slightly smaller from previously 1.95 x 3.38 x 4.2 on May 20, 2022 Widely patent left upper arm brachial to cephalic arteriovenous anastomosis Proximal fistula suggest high flow and 1117 mm/min flow. The distal fistula demonstrates adequate 516 mm/min flow This aneurysm slightly smaller from the previous measurements of 1.81 x 3.28 x 3.93 cm as of May 20, 2022 Ordering Physician: Steve Dueñas Referring Physician: Masha Treviño M.D. Performed By: Janee Laguna RVT Rhythm Strip Rhythm Strip: Junctional Rate: 67 Physical Exam Narrative General: Alert, oriented, no apparent distress HEENT: Atraumatic, normocephalic Eyes: Anicteric, normal conjunctiva, extraocular movements grossly intact Neck: Supple Respiratory: No wheezes appreciated, normal respiratory effort Cardiovascular: Regular rate GI: Soft, nontender, nondistended Extremities: Very minimal nonpitting edema in upper extremities Musculoskeletal: Moving all extremities, right knee wrapped Neuro: No overt focal neurological deficits Skin: Chronic bilateral lower extremity changes, has lesion on tip of left great toe Psych: Cooperative Assessment & Plan Assessment/Plan (1) Pneumonia: PLAN: Plan 81-year-old male with history of combined chronic diastolic and systolic CHF/ischemic cardiomyopathy, hypertension, ANKIT on CPAP, CAD status post PCI, type 2 diabetes mellitus with neuropathy, end-stage renal disease on hemodialysis, cirrhosis, chronic A. fib who presented 05/23 with 5 days of generalized weakness and recent intervention in left upper extremity secondary to pseudoaneurysm by Dr. Lunsford. Had fall about 4 days prior to presentation when he slid out of bed. EMS called at that time but given no injury or trauma he was not brought to the ED. Found to have NSTEMI in the ED and admitted. #MRSA bacteremia Unclear source Both blood cultures positive for MRSA on admission Has CRP of 224 and Pro-Wilbur of 2.16 X-ray of chest suggestive of pneumonia X-ray of toe unremarkable Podiatry consulted Echo already ordered Need to follow blood cultures to assure resolution 05/25: ID consulted. No vegetation seen on echo, CRP was 224 and is now 180. Orthopedics consulted due to right knee pain and x-ray did show moderate volume joint effusion. Thoracic MRI did not show any evidence of acute osteomyelitis or discitis. Right knee tapped and cultures are pending. Remains on vancomycin, blood cultures to be repeated today. Fistula to be evaluated also for possible infection 05/26: Repeat blood culture pending, ID on board. Sputum Growing Staph aureus. AV fistula/dialysis graft scan pending. White blood cell count improving as is CRP. Joint aspiration cultures with Staph aureus, has infection of total right knee replacement and went today to the OR for washout with Dr. Alfaro. ID following, vancomycin continued, Rocephin stopped. 05/27: Status post knee washout on 05/26. CRP continues to downtrend. Intra-Op cultures pending, repeat blood cultures no growth to date. Joint aspiration is growing MRSA 22: Repeat blood culture drawn and pending, knee growing MRSA status post washout. Remains on Vanco. ID following, Ortho following #Hypotension Has low blood pressure at baseline but during surgery dropped lower and required line placement and pressors Went to the ICU on epinephrine, was able to be extubated and was on BiPAP Epi was changed to levo Continue midodrine and wean pressors We will be very cautious with any fluids given his history of CHF and ESRD Likely due to combination of low BP baseline and multiple comorbidities with anesthesia 2/3: Off pressors blood pressure high 90s to low 100s which is very good for him, continue midodrine, lines in place and will continue them while on dialysis today, if tolerates this well and no need to reinstitute pressors can likely DC lines and consider transfer out of the ICU when deemed appropriate #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 Joint aspiration also growing Staph aureus Went for washout 05/26 with orthopedic surgery #Pneumonia Did have WBC elevation with left shift on admission Chest x-ray questionable left lower lobe pneumonia, appears more pronounced this AM Blood cultures growing MRSA IV Rocephin and vancomycin Lactic acidosis resolved As needed albuterol Budesonide Respiratory panel negative Sputum culture and urine antigens ordered 05/25: White blood cell count improving, respiratory status fair 05/26: Continue to monitor respiratory status, sputum culture Growing Staph aureus #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 May need partial amputation on the left in the future but they would like to optimize healing potential by performing a after of revascularization attempt. This can likely be done in outpatient setting #NSTEMI Troponin 1589 on admission and down trended EKG showed A. fib and evidence of old anterior and inferior infarct Echo requested Cardiology consulted Aspirin, statin Beta-carl with holding parameters Had cardiac catheterizations in 2019 as well as 2021 with severe disease but medical therapy was recommended as there did not appear to be a good option for bypass or PCI-medical management again recommended Eliquis held and transition to heparin drip in the event cardiac catheterization would be needed but given no cardiac cath Eliquis resumed 05/25: Spoke with cardiology, at this time medical management recommended #History of atrial fibrillation Eliquis was transitioned to heparin on admission due to NSTEMI but Eliquis to be resumed Continue on amiodarone, metoprolol #Generalized weakness, debility, falls PT/OT Likely will need placement on discharge #Chronic combined CHF/ischemic cardiomyopathy secondary to coronary artery disease status post PCI in 2015 On Lasix chronically as well as metoprolol Lasix held due to concern for dehydration 03/17/2022 echocardiogram with normal LV size, EF 35%, moderate segmental systolic dysfunction, severely enlarged LA, mild MVI, mild to moderate TVI, PASP 57 mmHg with moderate pulmonary hypertension, moderate focal AV calcification with contrast injection performed at that time with improvement of LV systolic function compared to previous echo. Given NSTEMI repeat echo has been ordered 05/25: Repeat echo with EF of 30% with moderately severe segmental systolic dysfunction #Type 2 diabetes mellitus with peripheral neuropathy Glucose checks and sliding scale insulin #End-stage renal disease on hemodialysis Follows with nephrology, dialysis Tuesday, Tuesday, Tuesday Nephro following Continue midodrine #Cirrhosis of the liver based on documentation Very minimally elevated AST and ALP #DVT prophylaxis: Eliquis Time spent in the patient's overall evaluation,decision-making process, review of diagnostic data, adjustment of management, discussion with other providers, nursing nursing and ancillary staff involved in patient's care documentation, 40 minutes Charges/Coding Visit Charges Inpatient E&M: 16917 Subs Hosp L2
[2022-05-28] MEDS: Aspirin E.C. 81 MG Tablet PO (08:04)
[2022-05-28] MEDS: Multivitamins,Therapeutic Tablet 1 TABLET PO (08:04)
[2022-05-28] MEDS: Tamsulosin HCl 0.4 MG Capsule PO (08:04)
[2022-05-28] MEDS: SEVELAMER CARBONATE 800 MG TABLET PO ×3 (08:04→17:04)
[2022-05-28] MEDS: Polyethylene Glycol 3350 17 GM PACKET PO (08:05)
[2022-05-28] MEDS: Amiodarone 200 MG Tablet PO (08:05)
[2022-05-28] MEDS: APIXABAN 2.5 MG TABLET (WCH) PO ×2 (08:05→21:11)
[2022-05-28] MEDS: Insulin Lispro 100 UNIT/ML INSULN.PEN SC ×4 (08:06→22:24)
[2022-05-28 08:30] LABS: Bedside Glucose 226 mg/dL (74-106)
--- NOTE | 2022-05-28 10:17 | PN_ITS ---
Subjective Subjective This 81 year old male seen for dry gangrene to left distal hallux in setting of ESRD and Diabetes w/ neuropathy and peripheral arterial disease. Patient feeling improved today. Patient underwent right knee surgery due to MRSA infection in setting of MRSA bacteremia. Patient required ICU afterwards due to significant hypotension. Denies consititutionals at current and has no other complaints. Objective Data Objective Data Vital Signs: Vital Signs Temp Pulse Resp BP Pulse Ox O2 Del Method O2 Flow Rate 96.8 F L 65 20 H 95/38 L 95 Nasal Cannula 2 05/28/22 08:00 05/28/22 10:00 05/28/22 10:00 05/28/22 10:00 05/28/22 10:00 05/28/22 10:00 05/28/22 10:00 FiO2 40 05/26/22 19:15 Oxygen Flow Rate (L/min) 2 Oxygen Delivery Method Nasal Cannula Weight: 103.5 kg Body Mass Index (BMI) 32.6 Intake & Output: Intake and Output for Last 24 Hours 05/26/22 05/27/22 05/28/22 23:59 23:59 23:59 Intake Total 607.59 / 616.99 835.09 / 985.09 225 / 225 Output Total 700 / 700 0 / 0 Balance -92.41 / -83.01 835.09 / 985.09 225 / 225 Lab / Micro Data Result Diagrams: 05/28/22 04:02 05/28/22 04:02 Labs: Laboratory Results - last 24 hr 05/27/22 12:06: POC Glucose 275 H 05/27/22 16:54: POC Glucose 314 H 05/27/22 23:28: POC Glucose 258 H 05/28/22 04:02: WBC 9.1, RBC 2.74 L, Hgb 8.3 L, Hct 26.2 L, MCV 95.6 H, MCH 30.3, MCHC 31.7 L, RDW Std Deviation 55.3 H, RDW Coeff of Moni 15.7 H, Plt Count 174, MPV 9.8, Immature Gran % (Auto) 2.100 H, Neut % (Auto) 89.5 H, Lymph % (Auto) 3.3 L, [place] % (Auto) 3.7, Eos % (Auto) 1.2, Baso % (Auto) 0.2, Absolute Neuts (auto) 8.2 H, Absolute Lymphs (auto) 0.30 L, Nucleated RBC % 0, Differential Comment SCANNED 05/28/22 04:02: Sodium 130 L, Potassium 4.7, Chloride 96 L, Carbon Dioxide 22.0, Anion Gap 12, BUN 77 H, Creatinine 5.31 H, Estim Creat Clear Calc 10.91, Est GFR (MDRD) Af Amer 14 L, Est GFR (MDRD) Non-Af 11 L, BUN/Creatinine Ratio 14.5, Gl ucose 262 H, Calcium 8.8, Total Bilirubin 0.30, AST 92 H, ALT 75 H, Alkaline Phosphatase 257 H, C-React Prot Ext Range 128.00 H, Total Protein 6.0 L, Albumin 1.6 L, Globulin 4.4 H, Albumin/Globulin Ratio 0.4 L 05/28/22 08:06: POC Glucose 226 H Micro: Microbiology 05/26/22 Unknown Tissue - Tibial Membrane Gram Stain - Final 05/26/22 Unknown Tissue - Tibial Membrane Wound Culture - Preliminary Staphylococcus species 05/26/22 Unknown Tissue - Femoral Membrane Gram Stain - Final 05/26/22 Unknown Tissue - Femoral Membrane Wound Culture - Preliminary Staphylococcus species 05/26/22 Unknown Tissue - Suprapatellar Pouch Gram Stain - Final 05/26/22 Unknown Tissue - Suprapatellar Pouch Wound Culture - Preliminary Staphylococcus species 05/25/22 14:35 Fluid - Synovial (joint) Gram Stain - Final 05/25/22 14:35 Fluid - Synovial (joint) Body Fluid Culture - Final Meth. resistant Staph. aureus 05/25/22 14:35 Fluid - Synovial (joint) Anaerobic Culture - Preliminary Checking for anaerobes, further studies to follow. 05/24/22 19:25 Sputum, Expectorated/Coughed Gram Stain - Final 05/24/22 19:25 Sputum, Expectorated/Coughed Respiratory Culture - Final Meth. resistant Staph. aureus 05/25/22 19:46 Blood Culture (Wb) - Anticubital Right Blood Culture - Preliminary Staphylococcus aureus 05/25/22 10:00 Blood Culture (Wb) - Right Hand Blood Culture - Preliminary Meth. resistant Staph. aureus 05/27/22 10:25 Blood Culture (Wb) - Central Line Blood Culture - Preliminary 05/26/22 21:25 Blood Culture (Wb) - Anticubital Right Blood Culture - Preliminary 05/23/22 19:10 Blood Culture (Wb) - Anticubital Right Bacteria Detection (PCR) - Final Staphylococcus aureus mecA Resistance Marker 05/23/22 19:10 Blood Culture (Wb) - Anticubital Right Blood Culture - Final Meth. resistant Staph. aureus 05/23/22 18:16 Blood Culture (Wb) - Right Forearm Blood Culture - Final Meth. resistant Staph. 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 No area of active f low identified. This pseudoaneurysm is slightly smaller from previously 1.95 x 3.38 x 4.2 on May 20, 2022 Widely patent left upper arm brachial to cephalic arteriovenous anastomosis Proximal fistula suggest high flow and 1117 mm/min flow. The distal fistula demonstrates adequate 516 mm/min flow This aneurysm slightly smaller from the previous measurements of 1.81 x 3.28 x 3.93 cm as of May 20, 2022 Ordering Physician: Steve Dueñas Referring Physician: Masha Treviño M.D. Performed By: Janee Laguna RVT Rhythm Strip Rhythm Strip: Junctional Rate: 67 Physical Exam Narrative NV status unchanges stable eschar to distal tuft of the left hallux noted, no signs of infection. Const alert and oriented x3 Assessment & Plan Assessment/Plan (1) Peripheral vascular disease, unspecified: PLAN: Exam performed Patient has stable dry gangrene to left hallux will continue to follow for local wound care patient can be heel weightbearing in surgical shoe on left As site appears to be stable and patient is stabilizing, will plan to follow every third day Patient will ultimately require revascularization to left foot and may subsequently require hallux amputation, at this time this will be planned once patient is medically stable and likely on an outpatient basis
--- NOTE | 2022-05-28 10:33 | CASEMGMT ---
Addendum entered by Rosario Pacheco 05/28/22 13:17: Social Work Referrals sent to [facility], [facility], and [facility]. New notes for PT and OT still needed. had asked about [facility], if their rehab will take someone on dialysis. SW called, they will take a pt on dialysis. SW left a message for the to let her know. SW will continue to follow. RAI Montalvo Original Note: Social Work SW met w/pt and after rounds in ICU. asked for a list of SNF in [facility] that take pts and do onsite dialysis. She states the other SW only told her about [facility]. SW explained to that [facility] is indeed the only facility in [facility] that will do dialysis on site. SW explained this is why SW gave her a list for [facility] and pointed out to the facilities in [place] that will take pts and do dialysis on site. We also discussed [facility] and [facility]. SW explained to both pt and that acute rehab is 3 hours of therapy per day vs at a [facility], where it is one hour per day. SW explained we won't really know the appropriate level of care until pt can participate in therapy later today. Both are in agreement w/SW starting referral process to [facility], [facility] and [facility]. SW will make referrals and will follow up with sending PT/OT once pt can participate and the notes are available. SW will continue to follow. RAI Montalvo
[2022-05-28 10:52] LABS: Vancomycin, Random Level 16.5 ug/mL (0.0-15.0)
--- NOTE | 2022-05-28 11:47 | PCM.RX.CS ---
Consult Pharmacy has been consulted to manage selected antiobiotic: Vancomycin Type of Consult: Follow-up Labs: Sodium 130 mmol/L (136-145) L 05/28/22 04:02 Potassium 4.7 mmol/L (3.5-5.1) 05/28/22 04:02 Chloride 96 mmol/L (98-107) L 05/28/22 04:02 Carbon Dioxide 22.0 mmol/L (21.0-32.0) 05/28/22 04:02 Anion Gap 12 (5-15) 05/28/22 04:02 BUN 77 mg/dL (7-18) H 05/28/22 04:02 Creatinine 5.31 mg/dL (0.70-1.30) H 05/28/22 04:02 Est GFR (MDRD) Af Amer 14 mL/min (>60) L 05/28/22 04:02 Est GFR (MDRD) Non-Af 11 mL/min (>60) L 05/28/22 04:02 BUN/Creatinine Ratio 14.5 RATIO (10-20) 05/28/22 04:02 Glucose 262 mg/dL (74-106) H 05/28/22 04:02 Random Vancomycin 16.5 ug/mL (0.0-15.0) H 05/28/22 09:45 Microbiology: Microbiology 05/26/22 Unknown Tissue - Tibial Membrane Gram Stain - Final 05/26/22 Unknown Tissue - Tibial Membrane Wound Culture - Preliminary Staphylococcus species 05/26/22 Unknown Tissue - Femoral Membrane Gram Stain - Final 05/26/22 Unknown Tissue - Femoral Membrane Wound Culture - Preliminary Staphylococcus species 05/26/22 Unknown Tissue - Suprapatellar Pouch Gram Stain - Final 05/26/22 Unknown Tissue - Suprapatellar Pouch Wound Culture - Preliminary Staphylococcus species 05/25/22 14:35 Fluid - Synovial (joint) Gram Stain - Final 05/25/22 14:35 Fluid - Synovial (joint) Body Fluid Culture - Final Meth. resistant Staph. aureus 05/25/22 14:35 Fluid - Synovial (joint) Anaerobic Culture - Preliminary Checking for anaerobes, further studies to follow. 05/24/22 19:25 Sputum, Expectorated/Coughed Gram Stain - Final 05/24/22 19:25 Sputum, Expectorated/Coughed Respiratory Culture - Final Meth. resistant Staph. aureus 05/25/22 19:46 Blood Culture (Wb) - Anticubital Right Blood Culture - Preliminary Staphylococcus aureus 05/25/22 10:00 Blood Culture (Wb) - Right Hand Blood Culture - Preliminary Meth. resistant Staph. aureus 05/27/22 10:25 Blood Culture (Wb) - Central Line Blood Culture - Preliminary 05/26/22 21:25 Blood Culture (Wb) - Anticubital Right Blood Culture - Preliminary 05/23/22 19:10 Blood Culture (Wb) - Anticubital Right Bacteria Detection (PCR) - Final Staphylococcus aureus mecA Resistance Marker 05/23/22 19:10 Blood Culture (Wb) - Anticubital Right Blood Culture - Final Meth. resistant Staph. aureus 05/23/22 18:16 Blood Culture (Wb) - Right Forearm Blood Culture - Final Meth. resistant Staph. aureus 05/23/22 22:40 Mucosa - Nasopharyngeal Respiratory Panel (PCR) - Final Goal Trough: 15-20 mcg/mL Pharmacy Plan for Drug Dosing: Random level in range. 500mg IV x1 after dialysis with random prior to next session per policy. Pharmacy Service will continue to monitor and adjust dosing as required. Follow-Up Labs: Trough Vancomycin - 2/ @ 0600
[2022-05-28 12:06] LABS: Bedside Glucose 215 mg/dL (74-106)
--- NOTE | 2022-05-28 13:28 | PCM.PN.REN ---
Subjective Subjective Hemoglobin supervise during dialysis session. He is off Levophed and his blood pressures in the 90s. He does have an art line. No respiratory compromise, pulse ox is 100% on 2 L nasal cannula. Using AV fistula with no issues. By now about 1000 cc has been removed, following Crit-Line Objective Data Objective Data Vital Signs: Vital Signs Temp Pulse Resp BP Pulse Ox O2 Del Method O2 Flow Rate 98.0 F 59 L 16 99/40 L 99 Nasal Cannula 2 05/28/22 12:00 05/28/22 13:00 05/28/22 13:00 05/28/22 13:00 05/28/22 13:00 05/28/22 13:00 05/28/22 13:00 FiO2 40 05/26/22 19:15 Oxygen Flow Rate (L/min) 2 Oxygen Delivery Method Nasal Cannula Weight: 103.5 kg Body Mass Index (BMI) 32.6 Intake & Output: Intake and Output for Last 24 Hours 05/26/22 05/27/22 05/28/22 23:59 23:59 23:59 Intake Total 607.59 / 616.99 835.09 / 985.09 385 / 385 Output Total 700 / 700 0 / 0 Balance -92.41 / -83.01 835.09 / 985.09 385 / 385 Lab / Micro Data Attestation: I reviewed the patient's lab results. Result Diagrams: 05/28/22 04:02 05/28/22 04:02 Labs: Laboratory Results - last 24 hr 05/27/22 16:54: POC Glucose 314 H 05/27/22 23:28: POC Glucose 258 H 05/28/22 04:02: WBC 9.1, RBC 2.74 L, Hgb 8.3 L, Hct 26.2 L, MCV 95.6 H, MCH 30.3, MCHC 31.7 L, RDW Std Deviation 55.3 H, RDW Coeff of Moni 15.7 H, Plt Count 174, MPV 9.8, Immature Gran % (Auto) 2.100 H, Neut % (Auto) 89.5 H, Lymph % (Auto) 3.3 L, [place] % (Auto) 3.7, Eos % (Auto) 1.2, Baso % (Auto) 0.2, Absolute Neuts (auto) 8.2 H, Absolute Lymphs (auto) 0.30 L, Nucleated RBC % 0, Differential Comment SCANNED 05/28/22 04:02: Sodium 130 L, Potassium 4.7, Chloride 96 L, Carbon Dioxide 22.0, Anion Gap 12, BUN 77 H, Creatinine 5.31 H, Estim Creat Clear Calc 10.91, Est GFR (MDRD) Af Amer 14 L, Est GFR (MDRD) Non-Af 11 L, BUN/Creatinine Ratio 14.5, Glucose 262 H, Calcium 8.8, Total Bilirubin 0.30, AST 92 H, ALT 75 H, Alkaline Phosphatase 257 H, C-React Prot Ext Range 128.00 H, Total Protein 6.0 L, Albumin 1.6 L, Globulin 4.4 H, Albumin/Globulin Ratio 0.4 L 05/28/22 08:06: POC Glucose 226 H 05/28/22 09:45: Random Vancomycin 16.5 H 05/28/22 11:39: POC Glucose 215 H Micro: Microbiology 05/26/22 Unknown Tissue - Tibial Membrane Gram Stain - Final 05/26/22 Unknown Tissue - Tibial Membrane Wound Culture - Preliminary Staphylococcus species 05/26/22 Unknown Tissue - Femoral Membrane Gram Stain - Final 05/26/22 Unknown Tissue - Femoral Membrane Wound Culture - Preliminary Staphylococcus species 05/26/22 Unknown Tissue - Suprapatellar Pouch Gram Stain - Final 05/26/22 Unknown Tissue - Suprapatellar Pouch Wound Culture - Preliminary Staphylococcus species 05/25/22 14:35 Fluid - Synovial (joint) Gram Stain - Final 05/25/22 14:35 Fluid - Synovial (joint) Body Fluid Culture - Final Meth. resistant Staph. aureus 05/25/22 14:35 Fluid - Synovial (joint) Anaerobic Culture - Preliminary Checking for anaerobes, further studies to follow. 05/24/22 19:25 Sputum, Expectorated/Coughed Gram Stain - Final 05/24/22 19:25 Sputum, Expectorated/Coughed Respiratory Culture - Final Meth. resistant Staph. aureus 05/25/22 19:46 Blood Culture (Wb) - Anticubital Right Blood Culture - Preliminary Staphylococcus aureus 05/25/22 10:00 Blood Culture (Wb) - Right Hand Blood Culture - Preliminary Meth. resistant Staph. aureus 05/27/22 10:25 Blood Culture (Wb) - Central Line Blood Culture - Preliminary 05/26/22 21:25 Blood Culture (Wb) - Anticubital Right Blood Culture - Preliminary 05/23/22 19:10 Blood Culture (Wb) - Anticubital Right Bacteria Detection (PCR) - Final Staphylococcus aureus mecA Resistance Marker 05/23/22 19:10 Blood Culture (Wb) - Anticubital Right Blood Culture - Final Meth. resistant Staph. aureus 05/23/22 18:16 Blood Culture (Wb) - Right Forearm Blood Culture - Final Meth. resistant Staph. aureus 05/23/22 22:40 Mucosa - Nasopharyngeal Respiratory Panel (PCR) - Final Rhythm Strip Rhythm Strip: Junctional Rate: 67 Physical Exam Const alert, oriented x3, no apparent distress and average body habitus Orientation / Consciousness: oriented to person and oriented to place HEENT normocephalic Head and Scalp: atraumatic Neck no lymphadenopathy Resp no use of accessory muscles and clear to auscultation bilaterally Cardio regular rate GI non-tender Auscultation: normoactive bowel sounds Assessment & Plan Assessment/Plan (1) ESRD (end stage renal disease): PLAN: Stable on dialysis, no issues with an axis, hemodynamically stable, albeit his blood pressure is soft PLAN: Plan Next Allises session will be Tuesday
--- NOTE | 2022-05-28 13:50 | CASEMGMT ---
Social Work Telephone call from patient spouse, Leigh Ann. Leigh Ann request for referral to be sent to [facility] as well. This social work professor sent referral to [facility] as well. Social Work to continue to follow. Mara STOREY, RAI
--- NOTE | 2022-05-28 14:12 | PCM.PN.ID ---
Physical Exam Narrative Feeling a little better. Remains in icu s/p OR 05/26/22. No fever, no n/v/d. Const alert and no apparent distress Resp normal air movement and clear to auscultation bilaterally Cardio regular rate and regular rhythm GI soft to palpation, non-tender and non-distended Skin no rashes or lesions noted ID ID: Route of nutrition/ use of supplements: [] Nutritional Intake: [] IV Site: [] Melendez Catheter: [] Assessment & Plan Assessment/Plan (1) ESRD (end stage renal disease): (2) Pneumonia: (3) MRSA bacteremia: PLAN: Unclear source, could be from fistula procedure, gangrene of L hallux, or pneumonia. - TTE showed no veg, EF 30% - repeat bcx today to monitor for clearance - sputum cx with MRSA - complicated by R knee PJI - OR 05/26/[address] Alfaro. - no osteo/discitis seen on noncontrast t-spine mri. - cont vanc will follow (4) Infection of total right knee replacement:
--- NOTE | 2022-05-28 14:55 | DIALYSIS ---
Hemodialysis x 3.5hrs. -2000ml UF with use of scheduled midodrine only today. Stable t/o. Report to Leonela CAZARES. See HD flowsheet for full tx details. Hemostasis was obtained, gauze/tape applied.
[2022-05-28] MEDS: Vancomycin IV 500 MG/100 ML BAG 100 MG IV (16:06)
[2022-05-28 17:16] LABS: Bedside Glucose 234 mg/dL (74-106)
[2022-05-28] MEDS: Atorvastatin Calcium 40 MG Tablet PO (21:11)
[2022-05-28] MEDS: MELATONIN 3 MG TABLET PO (21:14)
--- NOTE | 2022-05-28 21:18 | CPS ---
PT ON HOME MACHINE WITH A 3LPM BLEED IN PER PT
[2022-05-28 23:16] LABS: Bedside Glucose 273 mg/dL (74-106)
[2022-05-29] VITALS (12 sets, daily range): BP systolic 74–104; BP diastolic 32–63; PULSE 62–85; RESP 18–24; TEMP 36.4–36.8; O2SAT 91–100
[2022-05-29] MEDS: Insulin Lispro 100 UNIT/ML INSULN.PEN SC ×4 (06:31→21:14)
[2022-05-29] MEDS: Midodrine HCl 5 MG Tablet 10 MG PO ×4 (06:31→21:13)
[2022-05-29 06:55] LABS: Bedside Glucose 228 mg/dL (74-106)
[2022-05-29 06:56] LABS: Absolute Lymphocyte Count 0.31 X10^3/uL (0.83-4.51); Absolute Neutrophil Count 9.8 X10^3/uL (2.0-7.7); Basophil# 0.01 X10^3/uL; Basophil% 0.1 % (0-1); Eosinophil# 0.09 X10^3/uL; Eosinophils% 0.8 % (0-5); Hematocrit 24.9 % (40-54); Hemoglobin 8.1 g/dL (13.0-16.5); Lymphocyte # 0.31 X10^3/ul (0.83-4.51); Lymphocyte % 2.9 % (19-41); Mean Corp Hgb Conc 32.5 g/dL (32-36); Mean Corpuscular Hgb 31.6 pg (27.0-32.0); Mean Corpuscular Volume 97.3 fL (80-94); Monocyte# 0.44 X10^3/uL; Monocyte% 4.1 % (0-10); NRBC Flagged by Analyzer 0 % (0-5); Neutrophil # 9.77 X10^3/uL (2.7-7.7); Neutrophil % 90.8 % (47-70); POSITIVE DIFFERENTIAL YES; Platelet Count 163 K/mm3 (150-450); RBC Distribution Width CV 15.7 % (11.6-14.6); RBC Distribution Width SD 54.9 fl (35.1-43.9); Red Blood Count 2.56 M/mm3 (4.6-6.2); White Blood Count 10.8 K/mm3 (4.4-11.0)
[2022-05-29 07:00] LABS: Differential Indicated SCAN CRITERIA MET
[2022-05-29 07:22] LABS: Differential Comment SCANNED; Hypochromasia 1+
[2022-05-29] MEDS: Budesonide Respules 0.5 MG/2 ML AMPUL.NEB. INHALATION ×2 (07:26→19:23)
[2022-05-29 07:32] LABS: ALB/GLOB Ratio 0.4 RATIO (0.9-2.4); AST(SGOT) 32 U/L (15-37); Alanine Aminotransfer ALT/SGPT 53 U/L (16-61); Albumin, Serum 1.6 g/dL (3.2-5.0); Alkaline Phosphatase 257 U/L (45-117); Anion Gap 10 (5-15); BUN 52 mg/dL (7-18); BUN/Creat Ratio 12.5 RATIO (10-20); Calcium,Total 8.9 mg/dL (8.5-10.1); Chloride 95 mmol/L (98-107); Creatinine, Serum 4.17 mg/dL (0.70-1.30); EST Glomerular Filtration Rate 15 mL/min (>60); Est Glom Filt Rate - Afr Amer 18 mL/min (>60); Globulin 4.3 g/dL (2.2-4.2); Glucose 217 mg/dL (74-106); Potassium 4.5 mmol/L (3.5-5.1); Protein, Total 5.9 g/dL (6.4-8.2); Sodium Level 132 mmol/L (136-145)
[2022-05-29] MEDS: Acetaminophen 325 MG Tablet 650 MG PO ×2 (07:46→21:13)
--- NOTE | 2022-05-29 08:12 | PN.CC_ITS ---
Assessment & Plan Assessment/Plan (1) MRSA bacteremia: (2) ESRD (end stage renal disease): PLAN: Plan RECOMMENDATIONS: 1. Continue antibiotics per infectious disease 2. Volume removal with dialysis if possible 3. Okay to discontinue vasopressor support on JUN. Continue midodrine 4. Continue dialysis per nephrology 5. ICU liberation protocol for delirium and mobility 6. Hemodynamically stable on minimal nasal cannula. Will sign off from a critical care perspective 7. Encourage incentive spirometer and wean oxygen as tolerated IMPRESSIONS: 1. Septic shock secondary to MRSA Clinical suspicion is for an infected joint leading to MRSA bacteremia. Patient may have an element of hematogenous spread to the lungs leading to retrocardiac infiltrates. Echocardiogram did not suggest endocarditis, but this will need to be seen in follow-up. Cannot exclude the need for BRANDON in the future if blood cultures do not respond to knee intervention. Patient is currently not on pressors. Given renal failure, would hold on aggressive fluid resuscitation as patient also has congestive heart failure and this may complicate oxygenation. CRP is suggestive that inflammatory response is imp roving. Patient able to tolerate hemodialysis yesterday. 2. Chronic left great toe gangrene complicated by peripheral vascular disease Patient being followed by podiatry, vascular surgery and wound care. Unclear if this represents the source, but will need aggressive management. Cannot exclude the need for amputation in the future, but this is not an urgent issue from an ICU standpoint. Patient is a complicated surgical evaluation. 3. Chronic systolic CHF/A. fib/NSTEMI/CAD Patient appears to be doing okay from a hemodynamic standpoint. Patient's EF is significantly reduced, so we will need to watch fluid resuscitation closely. Patient is on no pressors at this time and this should not aggravate the A. fib with RVR significantly more than fluid would lead to respiratory compromise. Elevated pulmonary artery pressures likely a function of type II pulmonary hypertension given atrial enlargement, but a right heart cathete rization would be necessary for quantification clarification of these findings. 4. End-stage renal disease on hemodialysis/cirrhosis Patient's last dialysis was 2 days ago. Today is patient's standard dialysis day. Patient able to tolerate standard dialysis yesterday. Nephrology is following. Ascites does not appear to be significant on physical exam. Patient is on midodrine at baseline and this will be continued. 5. Advanced age/type 2 diabetes with peripheral neuropathy and PVD/recent falls Complicates care, management, recovery and prognosis. Blood sugars are acceptable at this time. Patient will need to be evaluated by PT/OT with orthopedic restrictions. Patient was able to get up and move around more yesterday Subjective Subjective Patient did well overnight. Patient was able to tolerate hemodialysis yesterday with no complications. Patient subjectively feels improved compared to yesterday. Patient did not have any fevers overnight, but blood cultures continue to be positive. Objective Data Objective Data Vital Signs: Vital Signs Temp Pulse Resp BP Pulse Ox O2 Del Method O2 Flow Rate 36.8 C 79 18 83/47 L 91 Nasal Cannula 2 05/29/22 06:33 05/29/22 07:27 05/29/22 07:27 05/29/22 06:33 05/29/22 07:27 05/29/22 07:40 05/29/22 07:40 FiO2 40 05/26/22 19:15 Oxygen Flow Rate (L/min) 2 Oxygen Delivery Method Nasal Cannula Weight: 103.1 kg Body Mass Index (BMI) 32.6 Intake & Output: Intake and Output for Last 24 Hours 05/27/22 05/28/22 05/29/22 23:59 23:59 23:59 Intake Total 835.09 / 985.09 485 / 485 Output Total 0 / 0 1999 / 1999 0 / 0 Balance 835.09 / 985.09 -1515 / -1515 0 / 0 Lab / Micro Data Attestation: I reviewed the patient's lab results. Result Diagrams: 05/29/22 06:50 05/29/22 06:50 Labs: Laboratory Results - last 24 hr 05/28/22 08:06: POC Glucose 226 H 05/28/22 09:45: Random Vancomycin 16.5 H 05/28/22 11:39: POC Glucose 215 H 05/28/22 16:57: POC Glucose 234 H 05/28/22 22:23: POC Glucose 273 H 05/29/22 06:30: POC Glucose 228 H 05/29/22 06:50: WBC 10.8, RBC 2.56 L, Hgb 8.1 L, Hct 24.9 L, MCV 97.3 H, MCH 31.6, MCHC 32.5, RDW Std Deviation 54.9 H, RDW Coeff of Moni 15.7 H, Plt Count 163, MPV 10.0, Immature Gran % (Auto) 1.300 H, Neut % (Auto) 90.8 H, Lymph % (A uto) 2.9 L, [place] % (Auto) 4.1, Eos % (Auto) 0.8, Baso % (Auto) 0.1, Absolute Neuts (auto) 9.8 H, Absolute Lymphs (auto) 0.31 L, Nucleated RBC % 0, Differential Comment SCANNED, Hypochromasia 1+ 05/29/22 06:50: Sodium 132 L, Potassium 4.5, Chloride 95 L, Carbon Dioxide 27.0, Anion Gap 10, BUN 52 H, Creatinine 4.17 H, Estim Creat Clear Calc 13.90, Est GFR (MDRD) Af Amer 18 L, Est GFR (MDRD) Non-Af 15 L, BUN/Creatinine Ratio 12.5, Glucose 217 H, Calcium 8.9, Total Bilirubin 0.30, AST 32, ALT 53, Alkaline Phosphatase 257 H, Total Protein 5.9 L, Albumin 1.6 L, Globulin 4.3 H, Albumin/Globulin Ratio 0.4 L Micro: Microbiology 05/26/22 Unknown Tissue - Tibial Membrane Gram Stain - Final 05/26/22 Unknown Tissue - Tibial Membrane Wound Culture - Final Meth. resistant Staph. aureus 05/26/22 Unknown Tissue - Femoral Membrane Gram Stain - Final 05/26/22 Unknown Tissue - Femoral Membrane Wound Culture - Final Meth. resistant Staph. aureus 05/26/22 Unknown Tissue - Suprapatellar Pouch Gram Stain - Final 05/26/22 Unknown Tissue - Suprapatellar Pouch Wound Culture - Final Meth. resistant Staph. aureus 05/27/22 10:25 Blood Culture (Wb) - Central Line Blood Culture - Preliminary Staphylococcus aureus 05/25/22 14:35 Fluid - Synovial (joint) Gram Stain - Final 05/25/22 14:35 Fluid - Synovial (joint) Body Fluid Culture - Final Meth. resistant Staph. aureus 05/25/22 14:35 Fluid - Synovial (joint) Anaerobic Culture - Preliminary Checking for anaerobes, further studies to follow. 05/24/22 19:25 Sputum, Expectorated/Coughed Gram Stain - Final 05/24/22 19:25 Sputum, Expectorated/Coughed Respiratory Culture - Final Meth. resistant Staph. aureus 05/25/22 19:46 Blood Culture (Wb) - Anticubital Right Blood Culture - Pre liminary Staphylococcus aureus 05/25/22 10:00 Blood Culture (Wb) - Right Hand Blood Culture - Preliminary Meth. resistant Staph. aureus 05/26/22 21:25 Blood Culture (Wb) - Anticubital Right Blood Culture - Preliminary 05/23/22 19:10 Blood Culture (Wb) - Anticubital Right Bacteria Detection (PCR) - Final Staphylococcus aureus mecA Resistance Marker 05/23/22 19:10 Blood Culture (Wb) - Anticubital Right Blood Culture - Final Meth. resistant Staph. aureus 05/23/22 18:16 Blood Culture (Wb) - Right Forearm Blood Culture - Final Meth. resistant Staph. aureus 05/23/22 22:40 Mucosa - Nasopharyngeal Respiratory Panel (PCR) - Final Rhythm Strip Rhythm Strip: Junctional Rate: 63 Physical Exam Const alert, oriented x3 and no apparent distress Constitutional Narrative: On CPAP therapy during my evaluation, but wakes and answers questions readily. Anasarca. General Appearance: cooperative HEENT normocephalic and head/scalp atraumatic Eyes PERRL, EOMs intact bilaterally and no scleral icterus Neck full ROM, supple and No nodes Chest inspection of chest normal Resp clear to auscultation bilaterally Auscultation: diminished lung sounds; Negative for rales, rhonchi or wheezes Cardio regular rate, S1 normal heart sound, S2 normal heart sound, no murmurs, no rub and no gallops; Negative for regular rhythm Rhythm: abnormal rhythm irregularly irregular GI soft to palpation, non-tender and non-distended Extremity Extremity Narrative: Right knee dressing not removed. Left toe gangrene General Extremity: edema Skin Skin Narrative: LUE fistula nontender, (+) thrill. No splinter hemorrhages on fingers. L 1st toe with dry gangrene. Neuro CN's II-XII intact bilaterally Psych cooperative and affect normal Charges/Coding Visit Charges Inpatient E&M: 83446 Subs Hosp L2
[2022-05-29] MEDS: Tamsulosin HCl 0.4 MG Capsule PO (09:10)
--- NOTE | 2022-05-29 09:10 | PCM.PN.HOSP ---
Subjective Subjective Reports still feeling generally tired, has been moved out of the ICU Objective Data Objective Data Vital Signs: Vital Signs Temp Pulse Resp BP Pulse Ox O2 Del Method O2 Flow Rate 98.3 F 85 19 H 77/63 L 95 Nasal Cannula 3 05/29/22 09:03 05/29/22 09:03 05/29/22 09:03 05/29/22 09:03 05/29/22 09:03 05/29/22 09:03 05/29/22 09:03 FiO2 40 05/26/22 19:15 Oxygen Flow Rate (L/min) 3 Oxygen Delivery Method Nasal Cannula Weight: 103.1 kg Body Mass Index (BMI) 32.6 Intake & Output: Intake and Output for Last 24 Hours 05/27/22 05/28/22 05/29/22 23:59 23:59 23:59 Intake Total 835.09 / 985.09 485 / 485 Output Total 0 / 0 1999 0 / 0 Balance 835.09 / 985.09 -1515 / -1515 0 / 0 Lab / Micro Data Result Diagrams: 05/29/22 06:50 05/29/22 06:50 Labs: Laboratory Results - last 24 hr 05/28/22 09:45: Random Vancomycin 16.5 H 05/28/22 11:39: POC Glucose 215 H 05/28/22 16:57: POC Glucose 234 H 05/28/22 22:23: POC Glucose 273 H 05/29/22 06:30: POC Glucose 228 H 05/29/22 06:50: WBC 10.8, RBC 2.56 L, Hgb 8.1 L, Hct 24.9 L, MCV 97.3 H, MCH 31.6, MCHC 32.5, RDW Std Deviation 54.9 H, RDW Coeff of Moni 15.7 H, Plt Count 163, MPV 10.0, Immature Gran % (Auto) 1.300 H, Neut % (Auto) 90.8 H, Lymph % (Auto) 2.9 L, Pettis % (Auto) 4.1, Eos % (Auto) 0.8, Baso % (Auto) 0.1, Absolute Neuts (auto) 9.8 H, Absolute Lymphs (auto) 0.31 L, Nucleated RBC % 0, Differential Comment SCANNED, Hypochromasia 1+ 05/29/22 06:50: Sodium 132 L, Potassium 4.5, Chloride 95 L, Carbon Dioxide 27.0, Anion Gap 10, BUN 52 H, Creatinine 4.17 H, Estim Creat Clear Calc 13.90, Est GFR (MDRD) Af Amer 18 L, Est GFR (MDRD) Non-Af 15 L, BUN/Creatinine Ratio 12.5, Glucose 217 H, Calcium 8.9, Total Bilirubin 0.30, AST 32, ALT 53, Alkaline Phosphatase 257 H, Total Protein 5.9 L, Albumin 1.6 L, Globulin 4.3 H, Albumin/Globulin Ratio 0.4 L Micro: Microbiology 05/26/22 21:25 Blood Culture (Wb) - Anticubital Right Blood Culture - Preliminary Staphylococcus aureus 05/25/22 19:46 Blood Culture (Wb) - Anticubital Right Blood Culture - Preliminary Staphylococcus aureus 05/25/22 10:00 Blood Culture (Wb) - Right Hand Blood Culture - Final Meth. resistant Staph. aureus 05/26/22 Unknown Tissue - Tibial Membrane Gram Stain - Final 05/26/22 Unknown Tissue - Tibial Membrane Wound Culture - Final Meth. resistant Staph. aureus 05/26/22 Unknown Tissue - Femoral Membrane Gram Stain - Final 05/26/22 Unknown Tissue - Femoral Membrane Wound Culture - Final Meth. resistant Staph. aureus 05/26/22 Unknown Tissue - Suprapatellar Pouch Gram Stain - Final 05/26/22 Unknown Tissue - Suprapatellar Pouch Wound Culture - Final Meth. resistant Staph. aureus 05/27/22 10:25 Blood Culture (Wb) - Central Line Blood Culture - Preliminary Staphylococcus aureus 05/25/22 14:35 Fluid - Synovial (joint) Gram Stain - Final 05/25/22 14:35 Fluid - Synovial (joint) Body Fluid Culture - Final Meth. resistant Staph. aureus 05/25/22 14:35 Fluid - Synovial (joint) Anaerobic Culture - Preliminary Checking for anaerobes, further studies to follow. 05/24/22 19:25 Sputum, Expectorated/Coughed Gram Stain - Final 05/24/22 19:25 Sputum, Expectorated/Coughed Respiratory Culture - Final Meth. resistant Staph. aureus 05/23/22 19:10 Blood Culture (Wb) - Anticubital Right Bacteria Detection (PCR) - Final Staphylococcus aureus mecA Resistance Marker 05/23/22 19:10 Blood Culture (Wb) - Anticubital Right Blood Culture - Final Meth. resistant Staph. aureus 05/23/22 18:16 Blood Culture (Wb) - Right Forearm Blood Culture - Final Meth. resistant Staph. aureus 05/23/22 22:40 Mucosa - Nasopharyngeal Respiratory Panel (PCR) - Final Rhythm Strip Rhythm Strip: Junctional Rate: 63 Physical Exam Narrative General: Alert, oriented HEENT: Atraumatic, normocephalic Eyes: extraocular movements grossly intact Neck: Supple Respiratory:normal respiratory effort Cardiovascular: Regular rate GI: Soft, nontender, nondistended Extremities: 1+ pitting edema left upper extremity, arm is not warm or erythematous Musculoskeletal: Moving all extremities, right knee wrapped Neuro: No overt focal neurological deficits Skin: Chronic bilateral lower extremity changes, has lesion on tip of left great toe Psych: Cooperative Assessment & Plan Assessment/Plan (1) Pneumonia: PLAN: Plan 81-year-old male with history of combined chronic diastolic and systolic CHF/ischemic cardiomyopathy, hypertension, ANKIT on CPAP, CAD status post PCI, type 2 diabetes mellitus with neuropathy, end-stage renal disease on hemodialysis, cirrhosis, chronic A. fib who presented 05/23 with 5 days of generalized weakness and recent intervention in left upper extremity secondary to pseudoaneurysm by Dr. Lunsford. Had fall about 4 days prior to presentation when he slid out of bed. EMS called at that time but given no injury or trauma he was not brought to the ED. Found to have NSTEMI in the ED and admitted. #MRSA bacteremia Unclear source Both blood cultures positive for MRSA on admission Has CRP of 224 and Pro-Wilbur of 2.16 X-ray of chest suggestive of pneumonia X-ray of toe unremarkable Podiatry consulted Echo already ordered Need to follow blood cultures to assure resolution 05/25: ID consulted. No vegetation seen on echo, CRP was 224 and is now 180. Orthopedics consulted due to right knee pain and x-ray did show moderate volume joint effusion. Thoracic MRI did not show any evidence of acute osteomyelitis or discitis. Right knee tapped and cultures are pending. Remains on vancomycin, blood cultures to be repeated today. Fistula to be evaluated also for possible infection 05/26: Repeat blood culture pending, ID on board. Sputum Growing Staph aureus. AV fistula/dialysis graft scan pending. White blood cell count improving as is CRP. Joint aspiration cultures with Staph aureus, has infection of total right knee replacement and went today to the OR for washout with Dr. Alfaro. ID following, vancomycin continued, Rocephin stopped. 05/27: Status post knee washout on 05/26. CRP continues to downtrend. Intra-Op cultures pending, repeat blood cultures no growth to date. Joint aspiration is growing MRSA 05/27: Repeat blood culture drawn and pending, knee growing MRSA status post washout. Remains on Vanco. ID following, Ortho following 05/29: Blood culture on 05/27 growing Staph aureus, repeat blood culture today. Continue vancomycin which has been renally dosed/dosed with HD. Infectious disease following. Left upper extremity swelling, will obtain duplex. Does not likely have clot given Eliquis but always possible there could be septic thrombosis #Hyperglycemia Likely worsened in setting of infection Continue sliding scale and glucose checks We will start long-acting insulin #Hypotension Has low blood pressure at baseline but during surgery dropped lower and required line placement and pressors Went to the ICU on epinephrine, was able to be extubated and was on BiPAP Epi was changed to levo Continue midodrine and wean pressors We will be very cautious with any fluids given his history of CHF and ESRD Likely due to combination of low BP baseline and multiple comorbidities with anesthesia 2: Off pressors blood pressure high 90s to low 100s which is very good for him, continue midodrine, lines in place and will continue them while on dialysis today, if tolerates this well and no need to reinstitute pressors can likely DC lines and consider transfer out of the ICU when deemed appropriate 05/29: BP remains soft but patient mentating fine, this was similar to pre-ICU blood pressure. 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 Joint aspiration also growing Staph aureus Went for washout 05/26 with orthopedic surgery #MRSA pneumonia Did have WBC elevation with left shift on admission Chest x-ray questionable left lower lobe pneumonia, appears more pronounced this AM Blood cultures growing MRSA IV Rocephin and vancomycin Lactic acidosis resolved As needed albuterol Budesonide Respiratory panel negative Sputum culture and urine antigens ordered 05/25: White blood cell count improving, respiratory status fair 05/26: Continue to monitor respiratory status, sputum culture Growing Staph aureus 05/29: Final culture MRSA #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 May need partial amputation on the left in the future but they would like to optimize healing potential by performing a after of revascularization attempt. This can likely be done in outpatient setting #NSTEMI Troponin 1589 on admission and down trended EKG showed A. fib and evidence of old anterior and inferior infarct Echo requested Cardiology consulted Aspirin, statin Beta-carl with holding parameters Had cardiac catheterizations in 2019 as well as 2021 with severe disease but medical therapy was recommended as there did not appear to be a good option for bypass or PCI-medical management again recommended Eliquis held and transition to heparin drip in the event cardiac catheterization would be needed but given no cardiac cath Eliquis resumed 05/25: Spoke with cardiology, at this time medical management recommended #History of atrial fibrillation Eliquis was transitioned to heparin on admission due to NSTEMI but Eliquis to be resumed Continue on amiodarone, metoprolol #Generalized weakness, debility, falls PT/OT Likely will need placement on discharge #Chronic combined CHF/ischemic cardiomyopathy secondary to coronary artery disease status post PCI in 2015 On Lasix chronically as well as metoprolol Lasix held due to concern for dehydration 03/17/2022 echocardiogram with normal LV size, EF 35%, moderate segmental systolic dysfunction, severely enlarged LA, mild MVI, mild to moderate TVI, PASP 57 mmHg with moderate pulmonary hypertension, moderate focal AV calcification with contrast injection performed at that time with improvement of LV systolic function compared to previous echo. Given NSTEMI repeat echo has been ordered 05/25: Repeat echo with EF of 30% with moderately severe segmental systolic dysfunction #Type 2 diabetes mellitus with peripheral neuropathy Glucose checks and sliding scale insulin #End-stage renal disease on hemodialysis Follows with nephrology, dialysis Tuesday, Tuesday, Tuesday Nephro following Continue midodrine #Cirrhosis of the liver based on documentation Very minimally elevated AST and ALP #DVT prophylaxis: Eliquis Time spent in the patient's overall evaluation,decision-making process, review of diagnostic data, adjustment of management, discussion with other providers, nursing nursing and ancillary staff involved in patient's care documentation, 40 minutes Charges/Coding Visit Charges Inpatient E&M: 52586 Subs Hosp L2
[2022-05-29] MEDS: Multivitamins,Therapeutic Tablet 1 TABLET PO (09:12)
[2022-05-29] MEDS: SEVELAMER CARBONATE 800 MG TABLET PO ×3 (09:12→16:28)
[2022-05-29] MEDS: APIXABAN 2.5 MG TABLET (WCH) PO ×2 (09:13→21:14)
[2022-05-29] MEDS: Amiodarone 200 MG Tablet PO (09:13)
[2022-05-29] MEDS: Polyethylene Glycol 3350 17 GM PACKET PO (09:14)
[2022-05-29] MEDS: Aspirin E.C. 81 MG Tablet PO (09:14)
[2022-05-29 12:10] LABS: Bedside Glucose 276 mg/dL (74-106)
--- NOTE | 2022-05-29 17:02 | VDUE_ITS ---
Reason For Study: swelling Left Proximal Jugular V is compressible, spontaneous, competent and demonstrates pulsatile venous flow. Subclavian V is compressible, spontaneous, competent and demonstrates pulsatile venous flow. Left Arm Axillary V is compressible, spontaneous, competent and demonstrates pulsatile venous flow. Left brachial vein is compressible. Left cephalic vein is compressible. Left basilic vein is compressible. Left Lower Arm Left radial vein is compressible. Left ulnar vein is compressible. Pulsatile flow noted in the deep veins due to Dialysis Fistula. Prelim called to Jessica CAZARES. VL/Venous Duplex US, Unilateral Interpretation Summary No evidence for acute deep venous thrombosis[left] upper extremity with patent and compressible cephalic and basilic veins. Pulsatile venous flow was noted throughout the left upper extremity consistent with the patient's known history of a left brachial cephalic arterio venous hemodialysis fistula Ordering Physician: Odalys Bedolla Performed By: Farooq Quezada RVT ???
[2022-05-29 17:10] LABS: Bedside Glucose 289 mg/dL (74-106)
[2022-05-29] MEDS: Latanoprost 0.005% 1 Bottle 1 DRP OPHTHALMIC (21:13)
[2022-05-29] MEDS: Insulin Glargine-YFGN 100 UNIT/ML Pen SC (21:14)
[2022-05-29] MEDS: Atorvastatin Calcium 40 MG Tablet PO (21:14)
[2022-05-29] MEDS: MELATONIN 3 MG TABLET PO (21:14)
[2022-05-30] VITALS (8 sets, daily range): BP systolic 89–111; BP diastolic 34–74; PULSE 60–80; RESP 16–20; TEMP 36.8–37.2; O2SAT 95–100
[2022-05-30 01:06] LABS: Bedside Glucose 252 mg/dL (74-106)
[2022-05-30 06:18] LABS: Absolute Lymphocyte Count 0.25 X10^3/uL (0.83-4.51); Absolute Neutrophil Count 9.6 X10^3/uL (2.0-7.7); Basophil# 0.02 X10^3/uL; Basophil% 0.2 % (0-1); Eosinophil# 0.12 X10^3/uL; Eosinophils% 1.2 % (0-5); Lymphocyte # 0.25 X10^3/ul (0.83-4.51); Lymphocyte % 2.4 % (19-41); Mean Corpuscular Hgb 31.1 pg (27.0-32.0); Mean Corpuscular Volume 97.3 fL (80-94); Mean Platelet Vol. 10.1 fl (6.2-12.0); Monocyte# 0.34 X10^3/uL; Monocyte% 3.3 % (0-10); NRBC Flagged by Analyzer 0 % (0-5); Neutrophil # 9.56 X10^3/uL (2.7-7.7); Neutrophil % 91.6 % (47-70); POSITIVE DIFFERENTIAL YES; Platelet Count 148 K/mm3 (150-450); RBC Distribution Width CV 15.9 % (11.6-14.6); RBC Distribution Width SD 56.1 fl (35.1-43.9); Red Blood Count 2.57 M/mm3 (4.6-6.2); White Blood Count 10.4 K/mm3 (4.4-11.0)
[2022-05-30 06:32] LABS: Differential Indicated SCAN CRITERIA MET
[2022-05-30] MEDS: Insulin Lispro 100 UNIT/ML INSULN.PEN SC ×4 (06:40→20:43)
[2022-05-30] MEDS: Midodrine HCl 5 MG Tablet 10 MG PO ×3 (06:41→20:43)
[2022-05-30 06:56] LABS: Anisocytosis 1+; Macrocytosis 1+; Platelet Estimate SLT DEC (ADEQ)
[2022-05-30 06:57] LABS: Hypochromasia 1+
[2022-05-30 07:05] LABS: ALB/GLOB Ratio 0.4 RATIO (0.9-2.4); AST(SGOT) 20 U/L (15-37); Alanine Aminotransfer ALT/SGPT 41 U/L (16-61); Albumin, Serum 1.6 g/dL (3.2-5.0); Alkaline Phosphatase 255 U/L (45-117); Anion Gap 11 (5-15); BUN 67 mg/dL (7-18); BUN/Creat Ratio 12.9 RATIO (10-20); Chloride 94 mmol/L (98-107); Creatinine, Serum 5.21 mg/dL (0.70-1.30); EST Glomerular Filtration Rate 11 mL/min (>60); Est Glom Filt Rate - Afr Amer 14 mL/min (>60); Estimated Creatinine Clearance 11.12 ml/min; Globulin 4.3 g/dL (2.2-4.2); Glucose 163 mg/dL (74-106); Potassium 5.1 mmol/L (3.5-5.1); Protein, Total 5.9 g/dL (6.4-8.2); Sodium Level 130 mmol/L (136-145)
[2022-05-30 07:05] LABS: Bedside Glucose 164 mg/dL (74-106)
[2022-05-30] MEDS: Budesonide Respules 0.5 MG/2 ML AMPUL.NEB. INHALATION ×2 (07:11→21:06)
[2022-05-30] MEDS: Acetaminophen 325 MG Tablet 650 MG PO ×2 (09:09→20:55)
[2022-05-30] MEDS: SEVELAMER CARBONATE 800 MG TABLET PO ×3 (09:10→16:43)
[2022-05-30] MEDS: Amiodarone 200 MG Tablet PO (09:10)
[2022-05-30] MEDS: Aspirin E.C. 81 MG Tablet PO (09:10)
[2022-05-30] MEDS: Polyethylene Glycol 3350 17 GM PACKET PO (09:10)
[2022-05-30] MEDS: Multivitamins,Therapeutic Tablet 1 TABLET PO (09:11)
[2022-05-30] MEDS: Tamsulosin HCl 0.4 MG Capsule PO (09:11)
[2022-05-30] MEDS: APIXABAN 2.5 MG TABLET (WCH) PO ×2 (09:11→20:43)
[2022-05-30 12:00] LABS: Bedside Glucose 244 mg/dL (74-106)
--- NOTE | 2022-05-30 15:00 | PN.HOSP_ITS ---
Subjective Subjective This a.m. said he was feeling roughly the same, left arm slightly less swollen. Had no other specific complaints. Was called by patient's nurse regarding family wanting to speak with me. Went to bedside and patient reports that he feels that this is hopeless and he is ready to stop trying. Counseled him and family extensively on current condition as well as interventions and further things to consider/tests that may be performed moving forward. Patient and verbalized their understanding and patient did report that he does not want to but just wants to feel better than he does right now. Supportive care provided, all questions answered Objective Data Objective Data Vital Signs: Vital Signs Temp Pulse Resp BP Pulse Ox O2 Del Method O2 Flow Rate 98.2 F 80 20 H 93/74 95 Nasal Cannula 2 05/30/22 09:05 05/30/22 10:55 05/30/22 10:55 05/30/22 10:55 05/30/22 10:55 05/30/22 10:55 05/30/22 10:55 FiO2 40 05/26/22 19:15 Oxygen Flow Rate (L/min) 2 Oxygen Delivery Method Nasal Cannula Weight: 103.7 kg Body Mass Index (BMI) 32.6 Intake & Output: Intake and Output for Last 24 Hours 05/28/22 05/29/22 05/30/22 23:59 23:59 23:59 Intake Total 485 / 485 340 / 780 540 / 540 Output Total 1999 0 / 0 Balance -1515 / -1515 340 / 780 540 / 540 Lab / Micro Data Result Diagrams: 05/30/22 06:03 05/30/22 06:03 Labs: Laboratory Results - last 24 hr 05/26/22 17:16: Crossmatch See Detail 05/29/22 16:27: POC Glucose 289 H 05/29/22 21:08: POC Glucose 252 H 05/30/22 06:03: WBC 10.4, RBC 2.57 L, Hgb 8.0 L, Hct 25.0 L, MCV 97.3 H, MCH 31.1, MCHC 32.0, RDW Std Deviation 56.1 H, RDW Coeff of Moni 15.9 H, Plt Count 148 L, MPV 10.1, Immature Gran % (Auto) 1.300 H, Neut % (Auto) 91.6 H, Lymph % (Auto) 2.4 L, [place] % (Auto) 3.3, Eos % (Auto) 1.2, Baso % (Auto) 0.2, Absolute Neuts (auto) 9.6 H, Absolute Lymphs (auto) 0.25 L, Nucleated RBC % 0, Platelet Estimate SLT DEC, Hypochromasia 1+, Anisocytosis 1+, Macrocytosis 1+ 05/30/22 06:03: Sodium 130 L, Potassium 5.1, Chloride 94 L, Carbon Dioxide 25.0, Anion Gap 11, BUN 67 H, Creatinine 5.21 H, Estim Creat Clear Calc 11.12, Est GFR (MDRD) Af Amer 14 L, Est GFR (MDRD) Non-Af 11 L, BUN/Creatinine Ratio 12.9, Glucose 163 H, Calcium 9.0, Total Bilirubin 0.30, AST 20, ALT 41, Alkaline Phosphatase 255 H, C-React Prot Ext Range 104.00 H, Total Protein 5.9 L, Albumin 1.6 L, Globulin 4.3 H, Albumin/Globulin Ratio 0.4 L 05/30/22 06:39: POC Glucose 164 H 05/30/22 11:12: POC Glucose 244 H Micro: Microbiology 05/26/22 Unknown Tissue - Femoral Membrane Gram Stain - Final 05/26/22 Unknown Tissue - Femoral Membrane Wound Culture - Final Meth. resistant Staph. aureus 05/26/22 Unknown Tissue - Femoral Membrane Anaerobic Culture - Preliminary No growth in 48 hours. 05/26/22 Unknown Tissue - Tibial Membrane Gram Stain - Final 05/26/22 Unknown Tissue - Tibial Membrane Wound Culture - Final Meth. resistant Staph. aureus 05/26/22 Unknown Tissue - Tibial Membrane Anaerobic Culture - Preliminary 05/26/22 Unknown Tissue - Suprapatellar Pouch Gram Stain - Final 05/26/22 Unknown Tissue - Suprapatellar Pouch Wound Culture - Final Meth. resistant Staph. aureus 05/26/22 Unknown Tissue - Suprapatellar Pouch Anaerobic Culture - Preliminary 05/25/22 14:35 Fluid - Synovial (joint) Gram Stain - Final 05/25/22 14:35 Fluid - Synovial (joint) Body Fluid Culture - Final Meth. resistant Staph. aureus 05/25/22 14:35 Fluid - Synovial (joint) Anaerobic Culture - Final No anaerobic bacteria isolated. 05/29/22 11:00 Blood Culture (Wb) - Venous Blood Culture - Preliminary Staphylococcus aureus 05/26/22 21:25 Blood Culture (Wb) - Anticubital Right Blood Culture - Final Meth. resistant Staph. aureus 05/27/22 10:25 Blood Culture (Wb) - Central Line Blood Culture - Final Meth. resistant Staph. aureus 05/25/22 19:46 Blood Culture (Wb) - Anticubital Right Blood Culture - Final Meth. resistant Staph. aureus 05/25/22 10:00 Blood Culture (Wb) - Right Hand Blood Culture - Final Meth. resistant Staph. aureus 05/24/22 19:25 Sputum, Expectorated/Coughed Gram Stain - Final 05/24/22 19:25 Sputum, Expectorated/Coughed Respiratory Culture - Final Meth. resistant Staph. aureus 05/23/22 19:10 Blood Culture (Wb) - Anticubital Right Bacteria Detection (PCR) - Final Staphylococcus aureus mecA Resistance Marker 05/23/22 19:10 Blood Culture (Wb) - Anticubital Right Blood Culture - Final Meth. resistant Staph. aureus 05/23/22 18:16 Blood Culture (Wb) - Right Forearm Blood Culture - Final Meth. resistant Staph. aureus 05/23/22 22:40 Mucosa - Nasopharyngeal Respiratory Panel (PCR) - Final Rhythm Strip Rhythm Strip: Junctional Rate: 63 Physical Exam Narrative General: Alert, oriented HEENT: Atraumatic, normocephalic Eyes: extraocular movements grossly intact Neck: Supple Respiratory:normal respiratory effort Cardiovascular: Regular rate GI: Soft, nontender, nondistended Extremities: 1+ pitting edema left upper extremity, arm is not warm or eryt hematous Musculoskeletal: Moving all extremities, right knee wrapped Neuro: No overt focal neurological deficits Skin: Chronic bilateral lower extremity changes, left upper arm above fistula does have some bruising which he reports was present 1 week before arrival after somebody punctured the fistula at dialysis Psych: Cooperative Assessment & Plan Assessment/Plan (1) Pneumonia: PLAN: Plan 81-year-old male with history of combined chronic diastolic and systolic CHF/ischemic cardiomyopathy, hypertension, ANKIT on CPAP, CAD status post PCI, type 2 diabetes mellitus with neuropathy, end-stage renal disease on hemodialysis, cirrhosis, chronic A. fib who presented 05/23 with 5 days of generalized weakness and recent intervention in left upper extremity secondary to pseudoaneurysm by Dr. Lunsford. Had fall about 4 days prior to presentation when he slid out of bed. EMS called at that time but given no injury or trauma he was not brought to the ED. Found to have NSTEMI in the ED and admitted. #Persistent MRSA bacteremia Unclear source Both blood cultures positive for MRSA on admission Has CRP of 224 and Pro-Wilbur of 2.16 X-ray of chest suggestive of pneumonia X-ray of toe unremarkable Podiatry consulted Echo already ordered Need to follow blood cultures to assure resolution 05/25: ID consulted. No vegetation seen on echo, CRP was 224 and is now 180. Orthopedics consulted due to right knee pain and x-ray did show moderate volume joint effusion. Thoracic MRI did not show any evidence of acute osteomyelitis or discitis. Right knee tapped and cultures are pending. Remains on vanco mycin, blood cultures to be repeated today. Fistula to be evaluated also for possible infection 05/26: Repeat blood culture pending, ID on board. Sputum Growing Staph aureus. AV fistula/dialysis graft scan pending. White blood cell count improving as is CRP. Joint aspiration cultures with Staph aureus, has infection of total right knee replacement and went today to the OR for washout with Dr. Alfaro. ID following, vancomycin continued, Rocephin stopped. 05/27: Status post knee washout on 05/26. CRP continues to downtrend. Intra-Op cultures pending, repeat blood cultures no growth to date. Joint aspiration is growing MRSA 05/27: Repeat blood culture drawn and pending, knee growing MRSA status post washout. Remains on Vanco. ID following, Ortho following 05/29: Blood culture on 05/27 growing Staph aureus, repeat blood culture today. Continue vancomycin which has been renally dosed/dosed with HD. Infectious disease following. Left upper extremity swelling, will obtain duplex. Does not likely have clot given Eliquis but always possible there could be septic thrombosis 05/30: Discussed with patient and family at bedside-Blood cultures still growing MRSA.though, it grew on blood culture from 05/29 it did not grow yet on 05/28. Infectious disease following, has been continued on vancomycin dosed based on his dialysis. Will likely need a BRANDON, given his significant hypotension after last procedure with low blood pressure at baseline as well as multiple medical comorbidities may need to coordinate best way to facilitate this. He does have dialysis tomorrow. #Type II diabetes mellitus Likely worsened in setting of infection Continue sliding scale and glucose checks Will start long-acting insulin #Hypotension Has low blood pressure at baseline but during surgery dropped lower and required line placement and pressors Went to the ICU on epinephrine, was able to be extubated and was on BiPAP Epi was changed to levo Continue midodrine and wean pressors We will be very cautious with any fluids given his history of CHF and ESRD Likely due to combination of low BP baseline and multiple comorbidities with anesthesia 2/3: Off pressors blood pressure high 90s to low 100s which is very good for him, continue midodrine, lines in place and will continue them while on dialysis today, if tolerates this well and no need to reinstitute pressors can likely DC lines and consider transfer out of the ICU when deemed appropriate 2: BP remains soft but patient mentating fine, this was similar to pre-ICU blood pressure. 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 Joint aspiration also growing Staph aureus Went for washout 05/26 with orthopedic surgery #MRSA pneumonia Did have WBC elevation with left shift on admission Chest x-ray questionable left lower lobe pneumonia, appears more pronounced this AM Blood cultures growing MRSA IV Rocephin and vancomycin Lactic acidosis resolved As needed albuterol Budesonide Respiratory panel negative Sputum culture and urine antigens ordered 05/25: White blood cell count improving, respiratory status fair 05/26: Continue to monitor respiratory status, sputum culture Growing Staph aureus 05/29: Final culture MRSA #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 May need partial amputation on the left in the future but they would like to optimize healing potential by performing a after of revascularization attempt. This can likely be done in ou tpatient setting #NSTEMI Troponin 1589 on admission and down trended EKG showed A. fib and evidence of old anterior and inferior infarct Echo requested Cardiology consulted Aspirin, statin Beta-carl with holding parameters Had cardiac catheterizations in 2019 as well as 2021 with severe disease but medical therapy was recommended as there did not appear to be a good option for bypass or PCI-medical management again recommended Eliquis held and transition to heparin drip in the event cardiac catheterization would be needed but given no cardiac cath Eliquis resumed 05/25: Spoke with cardiology, at this time medical management recommended #History of atrial fibrillation Eliquis was transitioned to heparin on admission due to NSTEMI but Eliquis resumed Continue on amiodarone, metoprolol #Generalized weakness, debility, falls PT/OT Likely will need placement on discharge #Chronic combined CHF/ischemic cardiomyopathy secondary to coronary artery disease status post PCI in 2015 On Lasix chronically as well as metoprolol Lasix held due to concern for dehydration 03/17/2022 echocardiogram with normal LV size, EF 35%, moderate segmental systolic dysfunction, severely enlarged LA, mild MVI, mild to moderate TVI, PASP 57 mmHg with moderate pulmonary hypertension, moderate focal AV calcification with contrast injection performed at that time with improvement of LV systolic function compared to previous echo. Given NSTEMI repeat echo has been ordered 05/25: Repeat echo with EF of 30% with moderately severe segmental systolic dysfunction #End-stage renal disease on hemodialysis Follows with nephrology, dialysis Tuesday, Tuesday, Tuesday Nephro following Continue midodrine #Cirrhosis of the liver based on documentation Very minimally elevated AST and ALP, resolved. Has slightly elevated ALP but this is maintained fairly constant for several days and no right upper quadrant complaints #DVT prophylaxis: Eliquis Time spent in the patient's overall evaluation,decision-making process, review of diagnostic data, adjustment of management, discussion with other providers, nursing nursing and ancillary staff involved in patient's care documentation, 40 minutes Charges/Coding Visit Charges Inpatient E&M: 22052 Subs Hosp L2
[2022-05-30 17:05] LABS: Bedside Glucose 197 mg/dL (74-106)
--- NOTE | 2022-05-30 19:26 | PCM.PN.REN ---
Subjective Subjective no new events Objective Data Objective Data Vital Signs: Vital Signs Temp Pulse Resp BP Pulse Ox O2 Del Method O2 Flow Rate 98.3 F 63 16 103/57 L 100 Nasal Cannula 3 05/30/22 15:23 05/30/22 15:23 05/30/22 15:23 05/30/22 15:23 05/30/22 15:23 05/30/22 15:30 05/30/22 15:30 FiO2 40 05/26/22 19:15 Oxygen Flow Rate (L/min) 3 Oxygen Delivery Method Nasal Cannula Weight: 103.7 kg Body Mass Index (BMI) 32.6 Intake & Output: Intake and Output for Last 24 Hours 05/28/22 05/29/22 05/30/22 23:59 23:59 23:59 Intake Total 485 / 485 340 / 780 940 / 940 Output Total 1999 0 / 0 Balance -1515 / -1515 340 / 780 940 / 940 Lab / Micro Data Result Diagrams: 05/30/22 06:03 05/30/22 06:03 Labs: Laboratory Results - last 24 hr 05/26/22 17:16: Crossmatch See Detail 05/29/22 21:08: POC Glucose 252 H 05/30/22 06:03: WBC 10.4, RBC 2.57 L, Hgb 8.0 L, Hct 25.0 L, MCV 97.3 H, MCH 31.1, MCHC 32.0, RDW Std Deviation 56.1 H, RDW Coeff of Moni 15.9 H, Plt Count 148 L, MPV 10.1, Immature Gran % (Auto) 1.300 H, Neut % (Auto) 91.6 H, Lymph % (Auto) 2.4 L, [place] % (Auto) 3.3, Eos % (Auto) 1.2, Baso % (Auto) 0.2, Absolute Neuts (auto) 9.6 H, Absolute Lymphs (auto) 0.25 L, Nucleated RBC % 0, Platelet Estimate SLT DEC, Hypochromasia 1+, Anisocytosis 1+, Macrocytosis 1+ 05/30/22 06:03: Sodium 130 L, Potassium 5.1, Chloride 94 L, Carbon Dioxide 25.0, Anion Gap 11, BUN 67 H, Creatinine 5.21 H, Estim Creat Clear Calc 11.12, Est GFR (MDRD) Af Amer 14 L, Est GFR (MDRD) Non-Af 11 L, BUN/Creatinine Ratio 12.9, Glucose 163 H, Calcium 9.0, Total Bilirubin 0.30, AST 20, ALT 41, Alkaline Phosphatase 255 H, C-React Prot Ext Range 104.00 H, Total Protein 5.9 L, Albumin 1.6 L, Globulin 4.3 H, Albumin/Globulin Ratio 0.4 L 05/30/22 06:39: POC Glucose 164 H 05/30/22 11:12: POC Glucose 244 H 05/30/22 16:42: POC Glucose 197 H Micro: Microbiology 05/26/22 Unknown Tissue - Femoral Membrane Gram Stain - Final 05/26/22 Unknown Tissue - Femoral Membrane Wound Culture - Final Meth. resistant Staph. aureus 05/26/22 Unknown Tissue - Femoral Membrane Anaerobic Culture - Preliminary No growth in 48 hours. 05/26/22 Unknown Tissue - Tibial Membrane Gram Stain - Final 05/26/22 Unknown Tissue - Tibial Membrane Wound Culture - Final Meth. resistant Staph. aureus 05/26/22 Unknown Tissue - Tibial Membrane Anaerobic Culture - Preliminary 05/26/22 Unknown Tissue - Suprapatellar Pouch Gram Stain - Final 05/26/22 Unknown Tissue - Suprapatellar Pouch Wound Culture - Final Meth. resistant Staph. aureus 05/26/22 Unknown Tissue - Suprapatellar Pouch Anaerobic Culture - Preliminary 05/25/22 14:35 Fluid - Synovial (joint) Gram Stain - Final 05/25/22 14:35 Fluid - Synovial (joint) Body Fluid Culture - Final Meth. resistant Staph. aureus 05/25/22 14:35 Fluid - Synovial (joint) Anaerobic Culture - Final No anaerobic bacteria isolated. 05/29/22 11:00 Blood Culture (Wb) - Venous Blood Culture - Preliminary Staphylococcus aureus 05/26/22 21:25 Blood Culture (Wb) - Anticubital Right Blood Culture - Final Meth. resistant Staph. aureus 05/27/22 10:25 Blood Culture (Wb) - Central Line Blood Culture - Final Meth. resistant Staph. aureus 05/25/22 19:46 Blood Culture (Wb) - Anticubital Right Blood Culture - Final Meth. resistant Staph. aureus 05/25/22 10:00 Blood Culture (Wb) - Right Hand Blood Culture - Final Meth. resistant Staph. aureus 05/24/22 19:25 Sputum, Expectorated/Coughed Gram Stain - Final 05/24/22 19:25 Sputum, Expectorated/Coughed Respiratory Culture - Final Meth. resistant Staph. aureus 05/23/22 19:10 Blood Culture (Wb) - Anticubital Right Bacteria Detection (PCR) - Final Staphylococcus aureus mecA Resistance Marker 05/23/22 19:10 Blood Culture (Wb) - Anticubital Right Blood Culture - Final Meth. resistant Staph. aureus 05/23/22 18:16 Blood Culture (Wb) - Right Forearm Blood Culture - Final Meth. resistant Staph. aureus 05/23/22 22:40 Mucosa - Nasopharyngeal Respiratory Panel (PCR) - Final Rhythm Strip Rhythm Strip: Junctional Rate: 63 Physical Exam Narrative Alert awake oriented x 3 no obvious distress no pallor no icterus no JVD s1s2 no murmurs lungs clear abdomen soft no organomegaly no edema no cyanosis Assessment & Plan Assessment/Plan (1) ESRD (end stage renal disease): PLAN: HD MWF schedule. Continues to have bacteremia. repeat cultures 05/29/21 are positive. dw and daughter at bedside. concerned about LUE edema, same side as fistula. no signs of fistula infection. likely central venous congestion. needs valve evaluation likely. (2) MRSA bacteremia:
[2022-05-30] MEDS: Insulin Glargine-YFGN 100 UNIT/ML Pen SC (20:43)
[2022-05-30] MEDS: Latanoprost 0.005% 1 Bottle 1 DRP OPHTHALMIC (20:43)
[2022-05-30] MEDS: Atorvastatin Calcium 40 MG Tablet PO (20:44)
[2022-05-30] MEDS: MELATONIN 3 MG TABLET PO (20:55)
[2022-05-30] MEDS: Psyllium 1 PACKET PO (20:55)
[2022-05-30 23:40] LABS: Bedside Glucose 257 mg/dL (74-106)
[2022-05-31] VITALS (7 sets, daily range): BP systolic 95–104; BP diastolic 40–69; PULSE 60–86; RESP 16–20; TEMP 36.6–37.1; O2SAT 96–98
[2022-05-31] MEDS: Midodrine HCl 5 MG Tablet 10 MG PO ×3 (06:05→23:05)
[2022-05-31] MEDS: Psyllium 1 PACKET PO ×3 (06:06→22:55)
[2022-05-31] MEDS: 0.9% Saline Lock 10 ML Syringe IV ×2 (06:07→14:51)
[2022-05-31 06:45] LABS: Bedside Glucose 130 mg/dL (74-106)
[2022-05-31 06:46] LABS: Absolute Lymphocyte Count 0.32 X10^3/uL (0.83-4.51); Absolute Neutrophil Count 9.1 X10^3/uL (2.0-7.7); Basophil# 0.02 X10^3/uL; Basophil% 0.2 % (0-1); Eosinophil# 0.14 X10^3/uL; Eosinophils% 1.4 % (0-5); Hematocrit 25.1 % (40-54); Hemoglobin 7.9 g/dL (13.0-16.5); Lymphocyte # 0.32 X10^3/ul (0.83-4.51); Lymphocyte % 3.2 % (19-41); Mean Corp Hgb Conc 31.5 g/dL (32-36); Mean Corpuscular Hgb 30.3 pg (27.0-32.0); Mean Corpuscular Volume 96.2 fL (80-94); Mean Platelet Vol. 10.3 fl (6.2-12.0); Monocyte# 0.35 X10^3/uL; Monocyte% 3.5 % (0-10); NRBC Flagged by Analyzer 0 % (0-5); Neutrophil # 9.12 X10^3/uL (2.7-7.7); POSITIVE DIFFERENTIAL YES; Platelet Count 174 K/mm3 (150-450); RBC Distribution Width CV 15.9 % (11.6-14.6); Red Blood Count 2.61 M/mm3 (4.6-6.2); White Blood Count 10.1 K/mm3 (4.4-11.0)
[2022-05-31] MEDS: Budesonide Respules 0.5 MG/2 ML AMPUL.NEB. INHALATION (06:51)
[2022-05-31 07:20] LABS: ALB/GLOB Ratio 0.4 RATIO (0.9-2.4); AST(SGOT) 12 U/L (15-37); Alanine Aminotransfer ALT/SGPT 34 U/L (16-61); Albumin, Serum 1.6 g/dL (3.2-5.0); Alkaline Phosphatase 255 U/L (45-117); Anion Gap 12 (5-15); BUN 82 mg/dL (7-18); BUN/Creat Ratio 13.2 RATIO (10-20); Chloride 91 mmol/L (98-107); EST Glomerular Filtration Rate 9 mL/min (>60); Est Glom Filt Rate - Afr Amer 11 mL/min (>60); Estimated Creatinine Clearance 9.35 ml/min; Globulin 4.5 g/dL (2.2-4.2); Glucose 129 mg/dL (74-106); Potassium 5.5 mmol/L (3.5-5.1); Protein, Total 6.1 g/dL (6.4-8.2); Sodium Level 128 mmol/L (136-145)
[2022-05-31 07:23] LABS: Vancomycin, Random Level 18.1 ug/mL (0.0-15.0)
[2022-05-31 07:36] LABS: Differential Indicated SCAN CRITERIA MET
[2022-05-31 07:46] LABS: Anisocytosis 1+; Macrocytosis 1+
--- NOTE | 2022-05-31 07:50 | PCM.RX.CS ---
Consult Pharmacy has been consulted to manage selected antiobiotic: Vancomycin Type of Consult: Follow-up Labs: Sodium 128 mmol/L (136-145) L 05/31/22 06:00 Potassium 5.5 mmol/L (3.5-5.1) H 05/31/22 06:00 Chloride 91 mmol/L (98-107) L 05/31/22 06:00 Carbon Dioxide 25.0 mmol/L (21.0-32.0) 05/31/22 06:00 Anion Gap 12 (5-15) 05/31/22 06:00 BUN 82 mg/dL (7-18) H 05/31/22 06:00 Creatinine 6.20 mg/dL (0.70-1.30) H 05/31/22 06:00 Est GFR (MDRD) Af Amer 11 mL/min (>60) L 05/31/22 06:00 Est GFR (MDRD) Non-Af 9 mL/min (>60) L 05/31/22 06:00 BUN/Creatinine Ratio 13.2 RATIO (10-20) 05/31/22 06:00 Glucose 129 mg/dL (74-106) H 05/31/22 06:00 Random Vancomycin 18.1 ug/mL (0.0-15.0) H 05/31/22 06:00 Microbiology: Microbiology 05/26/22 Unknown Tissue - Femoral Membrane Gram Stain - Final 05/26/22 Unknown Tissue - Femoral Membrane Wound Culture - Final Meth. resistant Staph. aureus 05/26/22 Unknown Tissue - Femoral Membrane Anaerobic Culture - Preliminary No growth in 48 hours. 05/26/22 Unknown Tissue - Tibial Membrane Gram Stain - Final 05/26/22 Unknown Tissue - Tibial Membrane Wound Culture - Final Meth. resistant Staph. aureus 05/26/22 Unknown Tissue - Tibial Membrane Anaerobic Culture - Preliminary 05/26/22 Unknown Tissue - Suprapatellar Pouch Gram Stain - Final 05/26/22 Unknown Tissue - Suprapatellar Pouch Wound Culture - Final Meth. resistant Staph. aureus 05/26/22 Unknown Tissue - Suprapatellar Pouch Anaerobic Culture - Preliminary 05/25/22 14:35 Fluid - Synovial (joint) Gram Stain - Final 05/25/22 14:35 Fluid - Synovial (joint) Body Fluid Culture - Final Meth. resistant Staph. aureus 05/25/22 14:35 Fluid - Synovial (joint) Anaerobic Culture - Final No anaerobic bacteria isolated. 05/29/22 11:00 Blood Culture (Wb) - Venous Blood Culture - Preliminary Staphylococcus aureus 05/26/22 21:25 Blood Culture (Wb) - Anticubital Right Blood Culture - Final Meth. resistant Staph. aureus 05/27/22 10:25 Blood Culture (Wb) - Central Line Blood Culture - Final Meth. resistant Staph. aureus 05/25/22 19:46 Blood Culture (Wb) - Anticubital Right Blood Culture - Final Meth. resistant Staph. aureus 05/25/22 10:00 Blood Culture (Wb) - Right Hand Blood Culture - Final Meth. resistant Staph. aureus 05/24/22 19:25 Sputum, Expectorated/Coughed Gram Stain - Final 05/24/22 19:25 Sputum, Expectorated/Coughed Respiratory Culture - Final Meth. resistant Staph. aureus 05/23/22 19:10 Blood Culture (Wb) - Anticubital Right Bacteria Detection (PCR) - Final Staphylococcus aureus mecA Resistance Marker 05/23/22 19:10 Blood Culture (Wb) - Anticubital Right Blood Culture - Final Meth. resistant Staph. aureus 05/23/22 18:16 Blood Culture (Wb) - Right Forearm Blood Culture - Final Meth. resistant Staph. aureus 05/23/22 22:40 Mucosa - Nasopharyngeal Respiratory Panel (PCR) - Final Goal Trough: 15-20 mcg/mL Pharmacy Plan for Drug Dosing: Vancomycin 500mg x1 after dialysis per pre-dialysis level/policy. Re-check prior to session on Tuesday for further dosing. Pharmacy Service will continue to monitor and adjust dosing as required. Follow-Up Labs: Trough Vancomycin - 06/02 @ 0600
[2022-05-31] MEDS: Multivitamins,Therapeutic Tablet 1 TABLET PO (11:26)
[2022-05-31] MEDS: Aspirin E.C. 81 MG Tablet PO (11:27)
[2022-05-31] MEDS: SEVELAMER CARBONATE 800 MG TABLET PO ×2 (11:27→16:42)
[2022-05-31] MEDS: Amiodarone 200 MG Tablet PO (11:27)
[2022-05-31] MEDS: Tamsulosin HCl 0.4 MG Capsule PO (11:27)
[2022-05-31] MEDS: APIXABAN 2.5 MG TABLET (WCH) PO ×2 (11:27→22:56)
[2022-05-31] MEDS: Polyethylene Glycol 3350 17 GM PACKET PO (11:27)
[2022-05-31 11:55] LABS: Bedside Glucose 128 mg/dL (74-106)
--- NOTE | 2022-05-31 12:19 | PCM.PN.ORT ---
Subjective Subjective 81-year-old male postop day 5 from irrigation debridement polyethylene exchange and retaining of implants right periprosthetic joint infection. Patient continues to have positive blood cultures for MRSA. All 3 cultures from the surgery were MRSA. He reports continued relief of his knee pain. No significant effusion or postoperative erythema is appreciated at this time. Primary team considering BRANDON. Continues to have hypotension consistent with preoperative status Objective Data Objective Data Vital Signs: Vital Signs Temp Pulse Resp BP Pulse Ox O2 Del Method O2 Flow Rate 97.8 F 65 16 96/55 L 96 Nasal Cannula 3 05/31/22 06:04 05/31/22 06:51 05/31/22 06:51 05/31/22 06:04 05/31/22 06:51 05/31/22 06:51 05/31/22 06:51 FiO2 40 05/26/22 19:15 Oxygen Flow Rate (L/min) 3 Oxygen Delivery Method Nasal Cannula Weight: 227 lb 15.327 oz Body Mass Index (BMI) 32.6 Intake & Output: Intake and Output for Last 24 Hours 05/29/22 05/30/22 05/31/22 23:59 23:59 23:59 Intake Total 340 / 780 940 / 1180 240 / 240 Output Total 0 / 0 Balance 340 / 780 940 / 1180 240 / 240 Lab / Micro Data Result Diagrams: 05/31/22 06:00 05/31/22 06:00 Labs: Laboratory Results - last 24 hr 05/30/22 16:42: POC Glucose 197 H 05/30/22 20:40: POC Glucose 257 H 05/31/22 06:00: Random Vancomycin 18.1 H 05/31/22 06:00: WBC 10.1, RBC 2.61 L, Hgb 7.9 L, Hct 25.1 L, MCV 96.2 H, MCH 30.3, MCHC 31.5 L, RDW Std Deviation 56.0 H, RDW Coeff of Moni 15.9 H, Plt Count 174, MPV 10.3, Immature Gran % (Auto) 1.700 H, Neut % (Auto) 90.0 H, Lymph % (Auto) 3.2 L, [place] % (Auto) 3.5, Eos % (Auto) 1.4, Baso % (Auto) 0.2, Absolute Neuts (auto) 9.1 H, Absolute Lymphs (auto) 0.32 L, Nucleated RBC % 0, Anisocytosis 1+, Macrocytosis 1+ 05/31/22 06:00: Sodium 128 L, Potassium 5.5 H, Chloride 91 L, Carbon Dioxide 25.0, Anion Gap 12, BUN 82 H, Creatinine 6.20 H, Estim Creat Clear Calc 9.35, Est GFR (MDRD) Af Amer 11 L, Est GFR (MDRD) Non-Af 9 L, BUN/Creatinine Ratio 13.2, Glucose 129 H, Calcium 9.0, Total Bilirubin 0.40, AST 12 L, ALT 34, Alkaline Phosphatase 255 H, C-React Prot Ext Range 81.80 H, Total Protein 6.1 L, Albumin 1.6 L, Globulin 4.5 H, Albumin/Globulin Ratio 0.4 L 05/31/22 06:22: POC Glucose 130 H 05/31/22 11:25: POC Glucose 128 H Micro: Microbiology 05/29/22 11:00 Blood Culture (Wb) - Venous Blood Culture - Preliminary Meth. resistant Staph. aureus 05/26/22 Unknown Tissue - Femoral Membrane Gram Stain - Final 05/26/22 Unknown Tissue - Femoral Membrane Wound Culture - Final Meth. resistant Staph. aureus 05/26/22 Unknown Tissue - Femoral Membrane Anaerobic Culture - Preliminary No growth in 48 hours. 05/26/22 Unknown Tissue - Tibial Membrane Gram Stain - Final 05/26/22 Unknown Tissue - Tibial Membrane Wound Culture - Final Meth. resistant Staph. aureus 05/26/22 Unknown Tissue - Tibial Membrane Anaerobic Culture - Preliminary 05/26/22 Unknown Tissue - Suprapatellar Pouch Gram Stain - Final 05/26/22 Unknown Tissue - Suprapatellar Pouch Wound Culture - Final Meth. resistant Staph. aureus 05/26/22 Unknown Tissue - Suprapatellar Pouch Anaerobic Culture - Preliminary 05/25/22 14:35 Fluid - Synovial (joint) Gram Stain - Final 05/25/22 14:35 Fluid - Synovial (joint) Body Fluid Culture - Final Meth. resistant Staph. aureus 05/25/22 14:35 Fluid - Synovial (joint) Anaerobic Culture - Final No anaerobic bacteria isolated. 05/26/22 21:25 Blood Culture (Wb) - Anticubital Right Blood Culture - Final Meth. resistant Staph. aureus 05/27/22 10:25 Blood Culture (Wb) - Central Line Blood Culture - Final Meth. resistant Staph. aureus 05/25/22 19:46 Blood Culture (Wb) - Anticubital Right Blood Culture - Final Meth. resistant Staph. aureus 05/25/22 10:00 Blood Culture (Wb) - Right Hand Blood Culture - Final Meth. resistant Staph. aureus 05/24/22 19:25 Sputum, Expectorated/Coughed Gram Stain - Final 05/24/22 19:25 Sputum, Expectorated/Coughed Respiratory Culture - Final Meth. resistant Staph. aureus 05/23/22 19:10 Blood Culture (Wb) - Anticubital Right Bacteria Detection (PCR) - Final Staphylococcus aureus mecA Resistance Marker 05/23/22 19:10 Blood Culture (Wb) - Anticubital Right Blood Culture - Final Meth. resistant Staph. aureus 05/23/22 18:16 Blood Culture (Wb) - Right Forearm Blood Culture - Final Meth. resistant Staph. aureus 05/23/22 22:40 Mucosa - Nasopharyngeal Respiratory Panel (PCR) - Final Rhythm Strip Rhythm Strip: Junctional Rate: 63 Physical Exam Narrative Vital signs stable and afebrile. Patient's blood pressures have been running lower overnight. He denies any dizziness or lightheadedness. Patient is able to plantarflex and dorsiflex actively. Sensation is intact to light touch to saphenous, sural, superficial and deep peroneal, and tibial distribution. Rodríguez wrap currently over right knee. Mepilex dressing is clean dry and intact. Negative Homans bilaterally, negative signs and symptoms of DVT. Const alert, oriented x3 and no apparent distress General Appearance: cooperative and comfortable Resp Resp Narrative: On CPAP machine Extremity Extremity Narrative: Right lower extremity: Dressing is clean dry and intact Sensations intact to light touch saphenous, sural, superficial peroneal, deep peroneal, and tibial distributions Motors intact EHL, DF, PF calves are soft and supple Minimal effusion. No erythema. Tolerates short arc range of motion. Left lower extremity: Significant peripheral vascular disease skin changes distal to the knee. No significant effusion on the knee. No tenderness palpation. Tolerates short arc range of motion. Incision is clean dry and intact. Assessment & Plan Assessment/Plan (1) Infection of total right knee replacement: PLAN: 1. S/P irrigation debridement right knee with polyethylene exchange POD #5 2. Continue Pain Medications: Recommend Tylenol primarily for pain control. Currently patient is not having any pain in his right knee. 3. DVT Prophylaxis: Patient has resumed his Eliquis 4. PT/OT: Recommend advancing physical therapy as medically appropriate. 5. H & H: Hemoglobin 7.9 this morning. Chronic hypotension otherwise patient's symptoms are stable. Will defer to primary service for any transfusions 6. Continue postoperative medical management per medicine 7. Continue antibiotics per infectious disease: Intraoperative specimens consistent with MRSA x3. Antibiotics per infectious disease service. Patient does continue to have MRSA bacteremia primary service considering BRANDON. I did speak with the patient today about continued infection in the knee and consideration for possible repeat washout. Currently he has minimal effusion and no return of his symptoms. I am not inclined to proceed with any surgical intervention at this time especially considering patient's significant difficulties with previous surgery. Additionally, we did discuss potential for seeking a tertiary care facility if any further intervention is required depending on his medical stability at that time. 8. Encouraged Incentive Spirometry 9. Disposition: We will continue to follow his chart peripherally. I did speak with infectious disease this morning. If he remains bacteremic may need to consider appropriateness of repeat irrigation debridement of the knee however patient did poorly with surgery last time and all attempts at nonoperative intervention should be exhausted prior to considering return to surgery. KELLI [facility] Office: This dictation was created using voice recognition software. Phonetic and/or grammatical errors may exist.
--- NOTE | 2022-05-31 12:25 | DIALYSIS ---
Hemodialysis x3.5 hours completed at 1105 on a 2K bath, tolerated well, UF 2500mL, CritLine maintained profile A mostly, accessed via [facility] using 15G needles, worked well, LUE edematous, needles pulled post tx and stasis achieved without issue
--- NOTE | 2022-05-31 12:40 | CASEMGMT ---
Addendum entered by Kathrine Curry 05/31/22 16:14: Social Work Return call from [facility] and they do not think pt is appropriate for Inpatient Rehab. [facility] and [facility] sent messages in [facility] and do not feel pt is appropriate for Inpt Rehab. Pt did not return call. SW to continue to follow for d/c planning. GREG Naranjo Original Note: Social Work SW received message over the weekend from pt . Phone call placed to Leigh Ann and VM left. [facility] is able to accept pt. [facility] and [facility] stating determination of acceptance has not yet been made as pt is not medically ready. No reply from [facility]. Updated clinicals sent. GREG Naranjo
--- NOTE | 2022-05-31 12:56 | PN.ID_ITS ---
Physical Exam Narrative Feeling better, knee less sore, no fever. Back pain better. Const alert and no apparent distress Resp normal air movement and clear to auscultation bilaterally Cardio regular rate and regular rhythm GI soft to palpation, non-tender and non-distended Skin Skin Narrative: Knees less swollen. ID ID: Route of nutrition/ use of supplements: [] Nutritional Intake: [] IV Site: [] Melendez Catheter: [] Assessment & Plan Assessment/Plan (1) ESRD (end stage renal disease): (2) Pneumonia: (3) MRSA bacteremia: PLAN: Unclear source, could be from fistula procedure, gangrene of L hallux, or pneumonia. - TTE showed no veg, EF 30% - repeat bcx today to monitor for clearance - sputum cx with MRSA - complicated by R knee PJI - OR 05/26/[address] Alfaro. - no osteo/discitis seen on noncontrast t-spine mri. - bcx showing some vanc JUNIOR creep upwards. Will change to dapto/ceftaroline. [facility]. will follow, d/w Dr. Alfaro (4) Infection of total right knee replacement:
--- NOTE | 2022-05-31 15:01 | PCM.PN.REN ---
Subjective Subjective Events noted. Continues to be bacteremic. cultures from knee washout showed MRSA. Antibiotics changed as per ID. TTE without any vegetation. Objective Data Objective Data Vital Signs: Vital Signs Temp Pulse Resp BP Pulse Ox O2 Del Method O2 Flow Rate 98.1 F 71 20 H 104/51 L 96 Nasal Cannula 1 05/31/22 11:30 05/31/22 11:30 05/31/22 11:30 05/31/22 11:30 05/31/22 09:45 05/31/22 11:30 05/31/22 11:30 FiO2 40 05/26/22 19:15 Oxygen Flow Rate (L/min) 1 Oxygen Delivery Method Nasal Cannula Weight: 103.4 kg Body Mass Index (BMI) 32.6 Intake & Output: Intake and Output for Last 24 Hours 05/29/22 05/30/22 05/31/22 23:59 23:59 23:59 Intake Total 340 / 780 940 / 1180 240 / 240 Output Total 0 / 0 2500 / 2500 Balance 340 / 780 940 / 1180 -2260 / -2260 Lab / Micro Data Result Diagrams: 05/31/22 06:00 05/31/22 06:00 Labs: Laboratory Results - last 24 hr 05/30/22 16:42: POC Glucose 197 H 05/30/22 20:40: POC Glucose 257 H 05/31/22 06:00: Random Vancomycin 18.1 H 05/31/22 06:00: WBC 10.1, RBC 2.61 L, Hgb 7.9 L, Hct 25.1 L, MCV 96.2 H, MCH 30.3, MCHC 31.5 L, RDW Std Deviation 56.0 H, RDW Coeff of Moni 15.9 H, Plt Count 174, MPV 10.3, Immature Gran % (Auto) 1.700 H, Neut % (Auto) 90.0 H, Lymph % (Auto) 3.2 L, [place] % (Auto) 3.5, Eos % (Auto) 1.4, Baso % (Auto) 0.2, Absolute Neuts (auto) 9.1 H, Absolute Lymphs (auto) 0.32 L, Nucleated RBC % 0, Anisocytosis 1+, Macrocytosis 1+ 05/31/22 06:00: Sodium 128 L, Potassium 5.5 H, Chloride 91 L, Carbon Dioxide 25.0, Anion Gap 12, BUN 82 H, Creatinine 6.20 H, Estim Creat Clear Calc 9.35, Est GFR (MDRD) Af Amer 11 L, Est GFR (MDRD) Non-Af 9 L, BUN/Creatinine Ratio 13.2, Glucose 129 H, Calcium 9.0, Total Bilirubin 0.40, AST 12 L, ALT 34, Alkaline Phosphatase 255 H, C-React Prot Ext Range 81.80 H, Total Protein 6.1 L, Albumin 1.6 L, Globulin 4.5 H, Albumin/Globulin Ratio 0.4 L 05/31/22 06:22: POC Glucose 130 H 05/31/22 11:25: POC Glucose 128 H Micro: Microbiology 05/29/22 11:00 Blood Culture (Wb) - Venous Blood Culture - Preliminary Meth. resistant Staph. aureus 05/26/22 Unknown Tissue - Femoral Membrane Gram Stain - Final 05/26/22 Unknown Tissue - Femoral Membrane Wound Culture - Final Meth. resistant Staph. aureus 05/26/22 Unknown Tissue - Femoral Membrane Anaerobic Culture - Preliminary No growth in 48 hours. 05/26/22 Unknown Tissue - Tibial Membrane Gram Stain - Final 05/26/22 Unknown Tissue - Tibial Membrane Wound Culture - Final Meth. resistant Staph. aureus 05/26/22 Unknown Tissue - Tibial Membrane Anaerobic Culture - Preliminary 05/26/22 Unknown Tissue - Suprapatellar Pouch Gram Stain - Final 05/26/22 Unknown Tissue - Suprapatellar Pouch Wound Culture - Final Meth. resistant Staph. aureus 05/26/22 Unknown Tissue - Suprapatellar Pouch Anaerobic Culture - Preliminary 05/25/22 14:35 Fluid - Synovial (joint) Gram Stain - Final 05/25/22 14:35 Fluid - Synovial (joint) Body Fluid Culture - Final Meth. resistant Staph. aureus 05/25/22 14:35 Fluid - Synovial (joint) Anaerobic Culture - Final No anaerobic bacteria isolated. 05/26/22 21:25 Blood Culture (Wb) - Anticubital Right Blood Culture - Final Meth. resistant Staph. aureus 05/27/22 10:25 Blood Culture (Wb) - Central Line Blood Culture - Final Meth. resistant Staph. aureus 05/25/22 19:46 Blood Culture (Wb) - Anticubital Right Blood Culture - Final Meth. resistant Staph. aureus 05/25/22 10:00 Blood Culture (Wb) - Right Hand Blood Culture - Final Meth. resistant Staph. aureus 05/24/22 19:25 Sputum, Expectorated/Coughed Gram Stain - Final 05/24/22 19:25 Sputum, Expectorated/Coughed Respiratory Culture - Final Meth. resistant Staph. aureus 05/23/22 19:10 Blood Culture (Wb) - Anticubital Right Bacteria Detection (PCR) - Final Staphylococcus aureus mecA Resistance Marker 05/23/22 19:10 Blood Culture (Wb) - Anticubital Right Blood Culture - Final Meth. resistant Staph. aureus 05/23/22 18:16 Blood Culture (Wb) - Right Forearm Blood Culture - Final Meth. resistant Staph. aureus 05/23/22 22:40 Mucosa - Nasopharyngeal Respiratory Panel (PCR) - Final Rhythm Strip Rhythm Strip: Junctional Rate: 63 Physical Exam Narrative Alert awake oriented x 3 no obvious distress no pallor no icterus no JVD s1s2 no murmurs lungs clear abdomen soft no organomegaly no edema no cyanosis Const alert, oriented x3, no apparent distress and average body habitus Orientation / Consciousness: oriented to person and oriented to place HEENT normocephalic Neck no lymphadenopathy Resp no use of accessory muscles and clear to auscultation bilaterally Cardio regular rate GI non-tender Auscultation: normoactive bowel sounds Assessment & Plan Assessment/Plan (1) ESRD (end stage renal disease): PLAN: HD MWF schedule. Continues to have bacteremia. repeat cultures 05/29/21 are positive. Dialysis today. Overall blood pressures are somewhat better. ID note reviewed. Antibiotics be changed today. Left arm is swollen but does not look infected. Able to use fistula. (2) MRSA bacteremia:
--- NOTE | 2022-05-31 15:11 | PN.HOSP_ITS ---
Subjective Subjective 81-year-old male with history of combined chronic diastolic and systolic CHF/ischemic cardiomyopathy, hypertension, ANKIT on CPAP, CAD status post PCI, type 2 diabetes mellitus with neuropathy, end-stage renal disease on hemodialysis, cirrhosis, chronic A. fib who presented 05/23 with 5 days of generalized weakness and recent intervention in left upper extremity secondary to pseudoaneurysm by Dr. Lunsford.. Blood cultures obtained on admission demonstrated MRSA. Patient has apparently experienced persistent bacteremia Objective Data Objective Data Vital Signs: Vital Signs Temp Pulse Resp BP Pulse Ox O2 Del Method O2 Flow Rate 98.2 F 77 18 100/69 96 Nasal Cannula 2 05/31/22 15:02 05/31/22 15:02 05/31/22 15:02 05/31/22 15:02 05/31/22 15:02 05/31/22 15:02 05/31/22 15:02 FiO2 40 05/26/22 19:15 Oxygen Flow Rate (L/min) 2 Oxygen Delivery Method Nasal Cannula Weight: 103.4 kg Body Mass Index (BMI) 32.6 Intake & Output: Intake and Output for Last 24 Hours 05/29/22 05/30/22 05/31/22 23:59 23:59 23:59 Intake Total 340 / 780 940 / 1180 240 / 240 Output Total 0 / 0 2500 / 2500 Balance 340 / 780 940 / 1180 -2260 / -2260 Lab / Micro Data Result Diagrams: 05/31/22 06:00 05/31/22 06:00 Labs: Laboratory Results - last 24 hr 05/30/22 16:42: POC Glucose 197 H 05/30/22 20:40: POC Glucose 257 H 05/31/22 06:00: Random Vancomycin 18.1 H 05/31/22 06:00: WBC 10.1, RBC 2.61 L, Hgb 7.9 L, Hct 25.1 L, MCV 96.2 H, MCH 30.3, MCHC 31.5 L, RDW Std Deviation 56.0 H, RDW Coeff of Moni 15.9 H, Plt Count 174, MPV 10.3, Immature Gran % (Auto) 1.700 H, Neut % (Auto) 90.0 H, Lymph % (Auto) 3.2 L, [place] % (Auto) 3.5, Eos % (Auto) 1.4, Baso % (Auto) 0.2, Absolute Neuts (auto) 9.1 H, Absolute Lymphs (auto) 0.32 L, Nucleated RBC % 0, Anisocytosis 1+, Macrocytosis 1+ 05/31/22 06:00: Sodium 128 L, Potassium 5.5 H, Chloride 91 L, Carbon Dioxide 25.0, Anion Gap 12, BUN 82 H, Creatinine 6.20 H, Estim Creat Clear Calc 9.35, Est GFR (MDRD) Af Amer 11 L, Est GFR (MDRD) Non-Af 9 L, BUN/Creatinine Ratio 13.2, Glucose 129 H, Calcium 9.0, Total Bilirubin 0.40, AST 12 L, ALT 34, Alkaline Phosphatase 255 H, C-React Prot Ext Range 81.80 H, Total Protein 6.1 L, Albumin 1.6 L, Globulin 4.5 H, Albumin/Globulin Ratio 0.4 L 05/31/22 06:22: POC Glucose 130 H 05/31/22 11:25: POC Glucose 128 H Micro: Microbiology 05/29/22 11:00 Blood Culture (Wb) - Venous Blood Culture - Preliminary Meth. resistant Staph. aureus 05/26/22 Unknown Tissue - Femoral Membrane Gram Stain - Final 05/26/22 Unknown Tissue - Femoral Membrane Wound Culture - Final Meth. resistant Staph. aureus 05/26/22 Unknown Tissue - Femoral Membrane Anaerobic Culture - Preliminary No growth in 48 hours. 05/26/22 Unknown Tissue - Tibial Membrane Gram Stain - Final 05/26/22 Unknown Tissue - Tibial Membrane Wound Culture - Final Meth. resistant Staph. aureus 05/26/22 Unknown Tissue - Tibial Membrane Anaerobic Culture - Preliminary 05/26/22 Unknown Tissue - Suprapatellar Pouch Gram Stain - Final 05/26/22 Unknown Tissue - Suprapatellar Pouch Wound Culture - Final Meth. resistant Staph. aureus 05/26/22 Unknown Tissue - Suprapatellar Pouch Anaerobic Culture - Preliminary 05/25/22 14:35 Fluid - Synovial (joint) Gram Stain - Final 05/25/22 14:35 Fluid - Synovial (joint) Body Fluid Culture - Final Meth. resistant Staph. aureus 05/25/22 14:35 Fluid - Synovial (joint) Anaerobic Culture - Final No anaerobic bacteria isolated. 05/26/22 21:25 Blood Culture (Wb) - Anticubital Right Blood Culture - Final Meth. resistant Staph. aureus 05/27/22 10:25 Blood Culture (Wb) - Central Line Blood Culture - Final Meth. resistant Staph. aureus 05/25/22 19:46 Blood Culture (Wb) - Anticubital Right Blood Culture - Final Meth. resistant Staph. aureus 05/25/22 10:00 Blood Culture (Wb) - Right Hand Blood Culture - Final Meth. resistant Staph. aureus 05/24/22 19:25 Sputum, Expectorated/Coughed Gram Stain - Final 05/24/22 19:25 Sputum, Expectorated/Coughed Respiratory Culture - Final Meth. resistant Staph. aureus 05/23/22 19:10 Blood Culture (Wb) - Anticubital Right Bacteria Detection (PCR) - Final Staphylococcus aureus mecA Resistance Marker 05/23/22 19:10 Blood Culture (Wb) - Anticubital Right Blood Culture - Final Meth. resistant Staph. aureus 05/23/22 18:16 Blood Culture (Wb) - Right Forearm Blood Culture - Final Meth. resistant Staph. aureus 05/23/22 22:40 Mucosa - Nasopharyngeal Respiratory Panel (PCR) - Final Rhythm Strip Rhythm Strip: Junctional Rate: 63 Physical Exam Narrative GENERAL: cooperative HEENT: Atraumatic; normocephalic EYES; Anicteric, Normal Conjunctiva NECK; supple, normal thyroid, RESPIRATORY: Diminished to auscultation CARDIOVASCULAR: Regular S1 S2, GI: soft, normoactive bowel sounds, : No Renal angle tenderness; EXTREMITIES: Chronic skin changes involving bilateral lower extremity MUSCULOSKELETAL: no muscle wasting NEURO: Awake; no lateralizing signs. SKIN: No Rash PSYCH; Flat affect Assessment & Plan Assessment/Plan (1) Pneumonia: PLAN: Plan 81-year-old male with history of combined chronic diastolic and systolic CHF/ischemic cardiomyopathy, hypertension, ANKIT on CPAP, CAD status post PCI, type 2 diabetes mellitus with neuropathy, end-stage renal disease on hemodialysis, cirrhosis, chronic A. fib who presented 05/23 with 5 days of generalized weakness and recent intervention in left upper extremity secondary to pseudoaneurysm by Dr. Lunsford.. Blood cultures obtained on admission demonstrated MRSA. Patient has apparently experienced persistent bacteremia 1. Persistent MRSA bacteremia ?TTE was unremarkable. Patient underwent right knee washout by Dr. Alfaro on 05/26/2021. Imaging studies involving the thoracic spine was negative for osteomyelitis or discitis. Patient has been seen in consultation by Dr. Dueñas with infectious disease who did switch patient antibiotics to daptomycin and ceftaroline 2. MRSA pneumonia ? Management as discussed above 3. Diabetes mellitus type II -patient's oral hypoglycemics held. Placed on long acting insulin, Accu-Cheks a.c. and at bedtime and covered with sliding scale insulin 4. 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 With MRSA underwent joint aspiration as well as washout cultures grew Staph aureus 5. 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 Context of peripheral vascular disease. Patient seen in consultation by podiatry as well as vascular surgery. Wound care. Wound care nurse 6. Acute non-STEMI ? Patient apparently underwent left heart catheterization in 2021 was found to have severe disease but medical therapy was recommended since patient was deemed not to be a good candidate for PCI or bypass surgery 7. History of paroxysmal A-fib ? Rate controlled on amiodarone, on systemic anticoagulation with Eliquis resumed 8. Physical deconditioning - Requested for PT OT eval and social security assessor to assist with discharge planning 9. Dyslipidemia -Patient is on statin therapy, continued at home dose 10. Class I obesity with BMI of 34.7 ? Weight loss advised 11. BPH ? Patient is on tamsulosin 12. End-stage renal disease ? On hemodialysis on Wednesdays and Fridays 13. Chronic congestive heart failure ? With reduced ejection fraction echo obtained on 03/17/2022 demonstrated EF of 35% with moderate segmental systolic dysfunction repeat echo on 05/25/2022 demonstrated EF of 30% 14. Cirrhosis of the liver ?? Nonalcoholic fatty liver disease related monitoring with LFTs 15. DVT prophylaxis ? Patient is on apixaban?continue Time spent in the patient's overall evaluation,decision-making process, review of diagnostic data, adjustment of management, discussion with other providers, nursing nursing and ancillary staff involved in patient's care documentation, 55 Minutes Charges/Coding Visit Charges Inpatient E&M: 94867 Subs Hosp L3 Reason for Visit Reason for Visit: Diagnoses Methicillin resistant Staphylococcus aureus infection as the cause of diseases classified elsewhere (05/23/22) Essential (primary) hypertension (05/23/22) Non-ST elevation (NSTEMI) myocardial infarction (05/23/22) Ischemic cardiomyopathy (05/23/22) Longstanding persistent atrial fibrillation (05/23/22) Peripheral vascular disease, unspecified (05/23/22) Pneumonia, unspecified organism (05/23/22) Non-pressure chronic ulcer of other part of left foot with fat layer exposed (05/23/22) Chronic kidney disease, stage 4 (severe) (05/23/22) End stage renal disease (05/23/22) Bacteremia (05/23/22) Infection and inflammatory reaction due to internal right knee prosthesis, initial encounter (05/23/22) Presence of coronary angioplasty implant and graft (05/23/22)
[2022-05-31] MEDS: Insulin Lispro 100 UNIT/ML INSULN.PEN SC ×2 (16:46→22:56)
[2022-05-31 17:30] LABS: Bedside Glucose 179 mg/dL (74-106)
--- NOTE | 2022-05-31 19:30 | PN_ITS ---
Subjective Subjective Patient is a 81-year-old male who is seen resting in bed sitting up with family at bedside. He states he is doing better following his knee washout. He denies any pain in his hallux. He denies any constitutional symptoms currently. Has no further complaints currently. Objective Data Objective Data Vital Signs: Vital Signs Temp Pulse Resp BP Pulse Ox O2 Del Method O2 Flow Rate 98.2 F 77 18 100/69 96 Nasal Cannula 2 05/31/22 15:02 05/31/22 15:02 05/31/22 15:02 05/31/22 15:02 05/31/22 15:02 05/31/22 15:15 05/31/22 15:02 FiO2 40 05/26/22 19:15 Oxygen Flow Rate (L/min) 2 Oxygen Delivery Method Nasal Cannula Weight: 103.4 kg Body Mass Index (BMI) 32.6 Intake & Output: Intake and Output for Last 24 Hours 05/29/22 05/30/22 05/31/22 23:59 23:59 23:59 Intake Total 340 / 780 940 / 1180 1012.6667 / 1012.6667 Output Total 0 / 0 2500 / 2500 Balance 340 / 780 940 / 1180 -1487.3333 / -1487.3333 Lab / Micro Data Result Diagrams: 05/31/22 06:00 05/31/22 06:00 Labs: Laboratory Results - last 24 hr 05/30/22 20:40: POC Glucose 257 H 05/31/22 06:00: Random Vancomycin 18.1 H 05/31/22 06:00: WBC 10.1, RBC 2.61 L, Hgb 7.9 L, Hct 25.1 L, MCV 96.2 H, MCH 30.3, MCHC 31.5 L, RDW Std Deviation 56.0 H, RDW Coeff of Moni 15.9 H, Plt Count 174, MPV 10.3, Immature Gran % (Auto) 1.700 H, Neut % (Auto) 90.0 H, Lymph % (Auto) 3.2 L, [place] % (Auto) 3.5, Eos % (Auto) 1.4, Baso % (Auto) 0.2, Absolute Neuts (auto) 9.1 H, Absolute Lymphs (auto) 0.32 L, Nucleated RBC % 0, Anisocytosis 1+, Macrocytosis 1+ 05/31/22 06:00: Sodium 128 L, Potassium 5.5 H, Chloride 91 L, Carbon Dioxide 25.0, Anion Gap 12, BUN 82 H, Creatinine 6.20 H, Estim Creat Clear Calc 9.35, Est GFR (MDRD) Af Amer 11 L, Est GFR (MDRD) Non-Af 9 L, BUN/Creatinine Ratio 13.2, Glucose 129 H, Calcium 9.0, Total Bilirubin 0.40, AST 12 L, ALT 34, Alkaline Phosphatase 255 H, C-React Prot Ext Range 81.80 H, Total Protein 6.1 L, Albumin 1.6 L, Globulin 4.5 H, Albumin/Globulin Ratio 0.4 L 05/31/22 06:22: POC Glucose 130 H 05/31/22 11:25: POC Glucose 128 H 05/31/22 16:45: POC Glucose 179 H Micro: Microbiology 05/29/22 11:00 Blood Culture (Wb) - Venous Blood Culture - Preliminary Meth. resistant Staph. aureus 05/26/22 Unknown Tissue - Femoral Membrane Gram Stain - Final 05/26/22 Unknown Tissue - Femoral Membrane Wound Culture - Final Meth. resistant Staph. aureus 05/26/22 Unknown Tissue - Femoral Membrane Anaerobic Culture - Preliminary No growth in 48 hours. 05/26/22 Unknown Tissue - Tibial Membrane Gram Stain - Final 05/26/22 Unknown Tissue - Tibial Membrane Wound Culture - Final Meth. resistant Staph. aureus 05/26/22 Unknown Tissue - Tibial Membrane Anaerobic Culture - Preliminary 05/26/22 Unknown Tissue - Suprapatellar Pouch Gram Stain - Final 05/26/22 Unknown Tissue - Suprapatellar Pouch Wound Culture - Final Meth. resistant Staph. aureus 05/26/22 Unknown Tissue - Suprapatellar Pouch Anaerobic Culture - Preliminary 05/25/22 14:35 Fluid - Synovial (joint) Gram Stain - Final 05/25/22 14:35 Fluid - Synovial (joint) Body Fluid Culture - Final Meth. resistant Staph. aureus 05/25/22 14:35 Fluid - Synovial (joint) Anaerobic Culture - Final No anaerobic bacteria isolated. 05/26/22 21:25 Blood Culture (Wb) - Anticubital Right Blood Culture - Final Meth. resistant Staph. aureus 05/27/22 10:25 Blood Culture (Wb) - Central Line Blood Culture - Final Meth. resistant Staph. aureus 05/25/22 19:46 Blood Culture (Wb) - Anticubital Right Blood Culture - Final Meth. resistant Staph. aureus 05/25/22 10:00 Blood Culture (Wb) - Right Hand Blood Culture - Final Meth. resistant Staph. aureus 05/24/22 19:25 Sputum, Expectorated/Coughed Gram Stain - Final 05/24/22 19:25 Sputum, Expectorated/Coughed Respiratory Culture - Final Meth. resistant Staph. aureus 05/23/22 19:10 Blood Culture (Wb) - Anticubital Right Bacteria Detection (PCR) - Final Staphylococcus aureus mecA Resistance Marker 05/23/22 19:10 Blood Culture (Wb) - Anticubital Right Blood Culture - Final Meth. resistant Staph. aureus 05/23/22 18:16 Blood Culture (Wb) - Right Forearm Blood Culture - Final Meth. resistant Staph. aureus 05/23/22 22:40 Mucosa - Nasopharyngeal Respiratory Panel (PCR) - Final Radiography Diagnostic Testing: Radiology Impression Venous Doppler Study 05/29/22 17:02 Interpretation Summary No evidence for acute deep venous thrombosis[left] upper extremity with patent and compressible cephalic and basilic veins. Pulsatile venous flow was noted throughout the left upper extremity consistent with the patient's known history of a left brachial cephalic arteriovenous hemodialysis fistula Ordering Physician: Odalys Bedolla Performed By: Farooq Quezada RVSamaria ??? Rhythm Strip Rhythm Strip: Junctional Rate: 63 Physical Exam Narrative NV status unchanges stable eschar to distal tuft of the left hallux noted, no signs of infection. Const alert and oriented x3 HEENT normocephalic Eyes General Eye: normal appearance of both eyes Lymph Lymphatic: no lymphadenopathy noted and no lymphedema noted Resp normal respiratory effort Extremity no joint enlargement, no calf tenderness and no pedal edema Extremity Narrative: DP and PT pulses are weakly palpable with CFT less than 5 seconds to the digits. Skin no rashes or lesions noted, skin turgor normal and no jaundice Wound Narrative: stable eschar to distal tuft of the left hallux noted, no signs of infection. 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, no signs of infection will continue to follow for local wound care Dressing changed today consisting of Betadine and dry sterile dressing Patient can be heel weightbearing in surgical shoe on left As site appears to be stable and patient is stabilizing, will plan to follow every third day Patient will ultimately require revascularization to left foot and may subsequently require hallux amputation, at this time this will be planned once patient is medically stable and likely on an outpatient basis Please do not hesitate to call for any questions or concerns Agustin Dhaliwal Jr. D.P.M[facility] [place] [phone] Note: [employer] speech recognition plating and point assembly supervisor software was used to create portions of this document. Sound-alike and misspelled words, as well as other plating and point assembly supervisor errors may be contained in the documentation.
--- NOTE | 2022-05-31 21:20 | CPS ---
RT did not get to work on PEP therapy with pt this evening, pr was already asleep when i checked on him.
[2022-05-31] MEDS: Atorvastatin Calcium 40 MG Tablet PO (22:55)
[2022-05-31] MEDS: Insulin Glargine-YFGN 100 UNIT/ML Pen SC (22:57)
[2022-05-31] MEDS: Latanoprost 0.005% 1 Bottle 1 DRP OPHTHALMIC (22:58)
[2022-05-31 23:36] LABS: Bedside Glucose 156 mg/dL (74-106)
[2022-06-01] VITALS (9 sets, daily range): BP systolic 88–118; BP diastolic 53–72; PULSE 64–88; RESP 16–20; TEMP 36.4–37.1; O2SAT 95–100
[2022-06-01] MEDS: Acetaminophen 325 MG Tablet 650 MG PO ×2 (01:57→21:41)
[2022-06-01] MEDS: Senna/Docusate Sodium 1 Tablet 2 TABLET PO (02:13)
[2022-06-01] MEDS: Psyllium 1 PACKET PO ×3 (06:55→21:25)
[2022-06-01] MEDS: Midodrine HCl 5 MG Tablet 10 MG PO ×3 (06:56→21:23)
[2022-06-01 07:21] LABS: Absolute Lymphocyte Count 0.45 X10^3/uL (0.83-4.51); Absolute Neutrophil Count 8.3 X10^3/uL (2.0-7.7); Basophil# 0.02 X10^3/uL; Basophil% 0.2 % (0-1); Eosinophils% 1.1 % (0-5); Hematocrit 25.5 % (40-54); Hemoglobin 7.9 g/dL (13.0-16.5); Lymphocyte # 0.45 X10^3/ul (0.83-4.51); Lymphocyte % 4.7 % (19-41); Mean Corpuscular Hgb 29.7 pg (27.0-32.0); Mean Corpuscular Volume 95.9 fL (80-94); Mean Platelet Vol. 10.1 fl (6.2-12.0); Monocyte# 0.42 X10^3/uL; Monocyte% 4.4 % (0-10); NRBC Flagged by Analyzer 0.2 % (0-5); Neutrophil # 8.28 X10^3/uL (2.7-7.7); Neutrophil % 87.2 % (47-70); POSITIVE DIFFERENTIAL YES; Platelet Count 174 K/mm3 (150-450); RBC Distribution Width CV 15.8 % (11.6-14.6); RBC Distribution Width SD 54.5 fl (35.1-43.9); Red Blood Count 2.66 M/mm3 (4.6-6.2); White Blood Count 9.5 K/mm3 (4.4-11.0)
[2022-06-01 07:25] LABS: Bedside Glucose 117 mg/dL (74-106)
[2022-06-01 07:29] LABS: Differential Indicated SCAN CRITERIA MET
[2022-06-01 07:54] LABS: Anion Gap 11 (5-15); BUN 50 mg/dL (7-18); BUN/Creat Ratio 10.8 RATIO (10-20); Calcium,Total 8.8 mg/dL (8.5-10.1); Chloride 92 mmol/L (98-107); Creatinine, Serum 4.65 mg/dL (0.70-1.30); EST Glomerular Filtration Rate 13 mL/min (>60); Est Glom Filt Rate - Afr Amer 16 mL/min (>60); Estimated Creatinine Clearance 12.26 ml/min; Glucose 122 mg/dL (74-106); Magnesium 2.1 mg/dL (1.6-2.6); Phosphorus 5.1 mg/dL (2.5-4.9); Potassium 4.6 mmol/L (3.5-5.1); Sodium Level 128 mmol/L (136-145)
[2022-06-01 08:10] LABS: Differential Comment SCANNED; Hypochromasia 2+
[2022-06-01] MEDS: Multivitamins,Therapeutic Tablet 1 TABLET PO (08:28)
[2022-06-01] MEDS: Tamsulosin HCl 0.4 MG Capsule PO (08:28)
[2022-06-01] MEDS: Aspirin E.C. 81 MG Tablet PO (08:28)
[2022-06-01] MEDS: APIXABAN 2.5 MG TABLET (WCH) PO ×2 (08:28→21:24)
[2022-06-01] MEDS: Polyethylene Glycol 3350 17 GM PACKET PO (08:28)
[2022-06-01] MEDS: SEVELAMER CARBONATE 800 MG TABLET PO ×3 (08:28→16:32)
[2022-06-01] MEDS: Amiodarone 200 MG Tablet PO (08:28)
--- NOTE | 2022-06-01 08:41 | PCM.PN.HOSP ---
Subjective Subjective Patient seen, hemoglobin down to 7.9. Repeat blood cultures ordered. Objective Data Objective Data Vital Signs: Vital Signs Temp Pulse Resp BP Pulse Ox O2 Del Method O2 Flow Rate 97.6 F L 74 16 95/53 L 95 Nasal Cannula 3 06/01/22 08:21 06/01/22 08:21 06/01/22 08:21 06/01/22 08:21 06/01/22 08:40 06/01/22 08:40 06/01/22 08:40 FiO2 40 05/26/22 19:15 Oxygen Flow Rate (L/min) 3 Oxygen Delivery Method Nasal Cannula Weight: 102.6 kg Body Mass Index (BMI) 32.6 Intake & Output: Intake and Output for Last 24 Hours 05/30/22 05/31/22 06/01/22 23:59 23:59 23:59 Intake Total 940 / 1180 1119.3334 / 1149.3334 136.6667 / 136.6667 Output Total 2500 / 2500 0 / 0 Balance 940 / 1180 -1380.6666 / -1350.6666 136.6667 / 136.6667 Lab / Micro Data Result Diagrams: 06/01/22 06:35 06/01/22 06:35 Labs: Laboratory Results - last 24 hr 05/31/22 11:25: POC Glucose 128 H 05/31/22 16:45: POC Glucose 179 H 05/31/22 22:51: POC Glucose 156 H 06/01/22 06:35: WBC 9.5, RBC 2.66 L, Hgb 7.9 L, Hct 25.5 L, MCV 95.9 H, MCH 29.7, MCHC 31.0 L, RDW Std Deviation 54.5 H, RDW Coeff of Moni 15.8 H, Plt Count 174, MPV 10.1, Immature Gran % (Auto) 2.400 H, Neut % (Auto) 87.2 H, Lymph % (Auto) 4.7 L, [place] % (Auto) 4.4, Eos % (Auto) 1.1, Baso % (Auto) 0.2, Absolute Neuts (auto) 8.3 H, Absolute Lymphs (auto) 0.45 L, Nucleated RBC % 0.2, Differential Comment SCANNED, Hypochromasia 2+ 06/01/22 06:35: Sodium 128 L, Potassium 4.6, Chloride 92 L, Carbon Dioxide 25.0, Anion Gap 11, BUN 50 H, Creatinine 4.65 H, Estim Creat Clear Calc 12.26, Est GFR (MDRD) Af Amer 16 L, Est GFR (MDRD) Non-Af 13 L, BUN/Creatinine Ratio 10.8, Glucose 122 H, Calcium 8.8, Phosphorus 5.1 H, Magnesium 2.1 06/01/22 06:51: POC Glucose 117 H Micro: Microbiology 05/26/22 Unknown Tissue - Suprapatellar Pouch Gram Stain - Final 05/26/22 Unknown Tissue - Suprapatellar Pouch Wound Culture - Final Meth. resistant Staph. aureus 05/26/22 Unknown Tissue - Suprapatellar Pouch Anaerobic Culture - Final No anaerobic bacteria isolated. 05/26/22 Unknown Tissue - Tibial Membrane Gram Stain - Final 05/26/22 Unknown Tissue - Tibial Membrane Wound Culture - Final Meth. resistant Staph. aureus 05/26/22 Unknown Tissue - Tibial Membrane Anaerobic Culture - Final No anaerobic bacteria isolated. 05/29/22 11:00 Blood Culture (Wb) - Venous Blood Culture - Preliminary Meth. resistant Staph. aureus 05/26/22 Unknown Tissue - Femoral Membrane Gram Stain - Final 05/26/22 Unknown Tissue - Femoral Membrane Wound Culture - Final Meth. resistant Staph. aureus 05/26/22 Unknown Tissue - Femoral Membrane Anaerobic Culture - Preliminary No growth in 48 hours. 05/25/22 14:35 Fluid - Synovial (joint) Gram Stain - Final 05/25/22 14:35 Fluid - Synovial (joint) Body Fluid Culture - Final Meth. resistant Staph. aureus 05/25/22 14:35 Fluid - Synovial (joint) Anaerobic Culture - Final No anaerobic bacteria isolated. 05/26/22 21:25 Blood Culture (Wb) - Anticubital Right Blood Culture - Final Meth. resistant Staph. aureus 05/27/22 10:25 Blood Culture (Wb) - Central Line Blood Culture - Final Meth. resistant Staph. aureus 05/25/22 19:46 Blood Culture (Wb) - Anticubital Right Blood Culture - Final Meth. resistant Staph. aureus 05/25/22 10:00 Blood Culture (Wb) - Right Hand Blood Culture - Final Meth. resistant Staph. aureus 05/24/22 19:25 Sputum, Expectorated/Coughed Gram Stain - Final 05/24/22 19:25 Sputum, Expectorated/Coughed Respiratory Culture - Final Meth. resistant Staph. aureus 05/23/22 19:10 Blood Culture (Wb) - Anticubital Right Bacteria Detection (PCR) - Final Staphylococcus aureus mecA Resistance Marker 05/23/22 19:10 Blood Culture (Wb) - Anticubital Right Blood Culture - Final Meth. resistant Staph. aureus 05/23/22 18:16 Blood Culture (Wb) - Right Forearm Blood Culture - Final Meth. resistant Staph. aureus 05/23/22 22:40 Mucosa - Nasopharyngeal Respiratory Panel (PCR) - Final Radiography Diagnostic Testing: Radiology Impression Venous Doppler Study 05/29/22 17:02 Interpretation Summary No evidence for acute deep venous thrombosis[left] upper extremity with patent and compressible cephalic and basilic veins. Pulsatile venous flow was noted throughout the left upper extremity consistent with the patient's known history of a left brachial cephalic arteriovenous hemodialysis fistula Ordering Physician: Odalys Bedolla Performed By: Farooq Quezada RVT ??? Rhythm Strip Rhythm Strip: Junctional Rate: 63 Physical Exam Narrative GENERAL: cooperative HEENT: Atraumatic; normocephalic EYES; Anicteric, Normal Conjunctiva NECK; supple, normal thyroid, RESPIRATORY: Diminished to auscultation CARDIOVASCULAR: Regular S1 S2, GI: soft, normoactive bowel sounds, : No Renal angle tenderness; EXTREMITIES: Chronic skin changes involving bilateral lower extremity MUSCULOSKELETAL: no muscle wasting NEURO: Awake; no lateralizing signs. SKIN: No Rash PSYCH; Flat affect Assessment & Plan Assessment/Plan (1) Pneumonia: PLAN: Plan 81-year-old male with history of combined chronic diastolic and systolic CHF/ischemic cardiomyopathy, hypertension, ANKIT on CPAP, CAD status post PCI, type 2 diabetes mellitus with neuropathy, end-stage renal disease on hemodialysis, cirrhosis, chronic A. fib who presented 05/23 with 5 days of generalized weakness and recent intervention in left upper extremity secondary to pseudoaneurysm by Dr. Lunsford.. Blood cultures obtained on admission demonstrated MRSA. Patient has apparently experienced persistent bacteremia 1. Persistent MRSA bacteremia ?TTE was unremarkable. Patient underwent right knee washout by Dr. Alfaro on 05/26/2021. Imaging studies involving the thoracic spine was negative for osteomyelitis or discitis. Patient has been seen in consultation by Dr. Dueñas with infectious disease who did switch patient antibiotics to daptomycin and ceftaroline 2. MRSA pneumonia ? Management as discussed above 3. Diabetes mellitus type II -patient's oral hypoglycemics held. Placed on long acting insulin, Accu-Cheks a.c. and at bedtime and covered with sliding scale insulin 4. 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 With MRSA underwent joint aspiration as well as washout cultures grew Staph aureus 5. 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 Context of peripheral vascular disease. Patient seen in consultation by podiatry as well as vascular surgery. Wound care. Wound care nurse 6. Acute non-STEMI ? Patient apparently underwent left heart catheterization in 2021 was found to have severe disease but medical therapy was recommended since patient was deemed not to be a good candidate for PCI or bypass surgery 7. History of paroxysmal A-fib ? Rate controlled on amiodarone, on systemic anticoagulation with Eliquis resumed 8. Physical deconditioning - Requested for PT OT eval and social services coordinator to assist with discharge planning 9. Dyslipidemia -Patient is on statin therapy, continued at home dose 10. Class I obesity with BMI of 34.7 ? Weight loss advised 11. BPH ? Patient is on tamsulosin 12. End-stage renal disease ? On hemodialysis on Wednesdays and Fridays 13. Chronic congestive heart failure ? With reduced ejection fraction echo obtained on 03/17/2022 demonstrated EF of 35% with moderate segmental systolic dysfunction repeat echo on 05/25/2022 demonstrated EF of 30% 14. Cirrhosis of the liver ?? Nonalcoholic fatty liver disease related monitoring with LFTs 15. DVT prophylaxis ? Patient is on apixaban?continue Time spent in the patient's overall evaluation,decision-making process, review of diagnostic data, adjustment of management, discussion with other providers, nursing nursing and ancillary staff involved in patient's care documentation, 38 Minutes Charges/Coding Visit Charges Inpatient E&M: 92076 Subs Hosp L2 Reason for Visit Reason for Visit: Diagnoses Methicillin resistant Staphylococcus aureus infection as the cause of diseases classified elsewhere (05/23/22) Essential (primary) hypertension (05/23/22) Non-ST elevation (NSTEMI) myocardial infarction (05/23/22) Ischemic cardiomyopathy (05/23/22) Longstanding persistent atrial fibrillation (05/23/22) Peripheral vascular disease, unspecified (05/23/22) Pneumonia, unspecified organism (05/23/22) Non-pressure chronic ulcer of other part of left foot with fat layer exposed (05/23/22) Chronic kidney disease, stage 4 (severe) (05/23/22) End stage renal disease (05/23/22) Bacteremia (05/23/22) Infection and inflammatory reaction due to internal right knee prosthesis, initial encounter (05/23/22) Presence of coronary angioplasty implant and graft (05/23/22)
[2022-06-01] MEDS: Budesonide Respules 0.5 MG/2 ML AMPUL.NEB. INHALATION ×2 (10:00→20:05)
--- NOTE | 2022-06-01 10:48 | PCM.PN.ID ---
Physical Exam Narrative Sleeping this AM, no fever Const no apparent distress Resp normal air movement and clear to auscultation bilaterally Cardio regular rate and regular rhythm GI soft to palpation, non-tender and non-distended Skin no rashes or lesions noted ID ID: Route of nutrition/ use of supplements: [] Nutritional Intake: [] IV Site: [] Melendez Catheter: [] Assessment & Plan Assessment/Plan (1) ESRD (end stage renal disease): (2) Pneumonia: (3) MRSA bacteremia: PLAN: Unclear source, could be from fistula procedure, gangrene of L hallux, or pneumonia. - TTE showed no veg, EF 30% - repeat bcx today to monitor for clearance - sputum cx with MRSA - complicated by R knee PJI - OR 05/26/[address] Alfaro. - no osteo/discitis seen on noncontrast t-spine mri. - bcx showing some vanc JUNIOR creep upwards. 05/31/22 changed to dapto/ceftaroline. Spoke with micro lab, dapto was susc, sending out for ceftaroline testing. will follow (4) Infection of total right knee replacement:
--- NOTE | 2022-06-01 11:08 | PCM.PN.REN ---
Subjective Subjective No new complaints. Objective Data Objective Data Vital Signs: Vital Signs Temp Pulse Resp BP Pulse Ox O2 Del Method O2 Flow Rate 97.6 F L 72 20 H 95/53 L 95 Nasal Cannula 3 06/01/22 08:21 06/01/22 11:04 06/01/22 11:04 06/01/22 08:21 06/01/22 08:40 06/01/22 08:40 06/01/22 08:40 FiO2 40 05/26/22 19:15 Oxygen Flow Rate (L/min) 3 Oxygen Delivery Method Nasal Cannula Weight: 102.6 kg Body Mass Index (BMI) 32.6 Intake & Output: Intake and Output for Last 24 Hours 05/30/22 05/31/22 06/01/22 23:59 23:59 23:59 Intake Total 940 / 1180 1119.3334 / 1149.3334 136.6667 / 136.6667 Output Total 2500 / 2500 0 / 0 Balance 940 / 1180 -1380.6666 / -1350.6666 136.6667 / 136.6667 Lab / Micro Data Result Diagrams: 06/01/22 06:35 06/01/22 06:35 Labs: Laboratory Results - last 24 hr 05/31/22 11:25: POC Glucose 128 H 05/31/22 16:45: POC Glucose 179 H 05/31/22 22:51: POC Glucose 156 H 06/01/22 06:35: WBC 9.5, RBC 2.66 L, Hgb 7.9 L, Hct 25.5 L, MCV 95.9 H, MCH 29.7, MCHC 31.0 L, RDW Std Deviation 54.5 H, RDW Coeff of Moni 15.8 H, Plt Count 174, MPV 10.1, Immature Gran % (Auto) 2.400 H, Neut % (Auto) 87.2 H, Lymph % (Auto) 4.7 L, [place] % (Auto) 4.4, Eos % (Auto) 1.1, Baso % (Auto) 0.2, Absolute Neuts (auto) 8.3 H, Absolute Lymphs (auto) 0.45 L, Nucleated RBC % 0.2, Differential Comment SCANNED, Hypochromasia 2+ 06/01/22 06:35: Sodium 128 L, Potassium 4.6, Chloride 92 L, Carbon Dioxide 25.0, Anion Gap 11, BUN 50 H, Creatinine 4.65 H, Estim Creat Clear Calc 12.26, Est GFR (MDRD) Af Amer 16 L, Est GFR (MDRD) Non-Af 13 L, BUN/Creatinine Ratio 10.8, Glucose 122 H, Calcium 8.8, Phosphorus 5.1 H, Magnesium 2.1 06/01/22 06:51: POC Glucose 117 H Micro: Microbiology 05/26/22 Unknown Tissue - Suprapatellar Pouch Gram Stain - Final 05/26/22 Unknown Tissue - Suprapatellar Pouch Wound Culture - Final Meth. resistant Staph. aureus 05/26/22 Unknown Tissue - Suprapatellar Pouch Anaerobic Culture - Final No anaerobic bacteria isolated. 05/26/22 Unknown Tissue - Tibial Membrane Gram Stain - Final 05/26/22 Unknown Tissue - Tibial Membrane Wound Culture - Final Meth. resistant Staph. aureus 05/26/22 Unknown Tissue - Tibial Membrane Anaerobic Culture - Final No anaerobic bacteria isolated. 05/29/22 11:00 Blood Culture (Wb) - Venous Blood Culture - Preliminary Meth. resistant Staph. aureus 05/26/22 Unknown Tissue - Femoral Membrane Gram Stain - Final 05/26/22 Unknown Tissue - Femoral Membrane Wound Culture - Final Meth. resistant Staph. aureus 05/26/22 Unknown Tissue - Femoral Membrane Anaerobic Culture - Preliminary No growth in 48 hours. 05/25/22 14:35 Fluid - Synovial (joint) Gram Stain - Final 05/25/22 14:35 Fluid - Synovial (joint) Body Fluid Culture - Final Meth. resistant Staph. aureus 05/25/22 14:35 Fluid - Synovial (joint) Anaerobic Culture - Final No anaerobic bacteria isolated. 05/26/22 21:25 Blood Culture (Wb) - Anticubital Right Blood Culture - Final Meth. resistant Staph. aureus 05/27/22 10:25 Blood Culture (Wb) - Central Line Blood Culture - Final Meth. resistant Staph. aureus 05/25/22 19:46 Blood Culture (Wb) - Anticubital Right Blood Culture - Final Meth. resistant Staph. aureus 05/25/22 10:00 Blood Culture (Wb) - Right Hand Blood Culture - Final Meth. resistant Staph. aureus 05/24/22 19:25 Sputum, Expectorated/Coughed Gram Stain - Final 05/24/22 19:25 Sputum, Expectorated/Coughed Respiratory Culture - Final Meth. resistant Staph. aureus 05/23/22 19:10 Blood Culture (Wb) - Anticubital Right Bacteria Detection (PCR) - Final Staphylococcus aureus mecA Resistance Marker 05/23/22 19:10 Blood Culture (Wb) - Anticubital Right Blood Culture - Final Meth. resistant Staph. aureus 05/23/22 18:16 Blood Culture (Wb) - Right Forearm Blood Culture - Final Meth. resistant Staph. aureus 05/23/22 22:40 Mucosa - Nasopharyngeal Respiratory Panel (PCR) - Final Radiography Diagnostic Testing: Radiology Impression Venous Doppler Study 05/29/22 17:02 Interpretation Summary No evidence for acute deep venous thrombosis[left] upper extremity with patent and compressible cephalic and basilic veins. Pulsatile venous flow was noted throughout the left upper extremity consistent with the patient's known history of a left brachial cephalic arteriovenous hemodialysis fistula Ordering Physician: Odalys Bedolla Performed By: Farooq Quezada RVT ??? Rhythm Strip Rhythm Strip: Junctional Rate: 63 Physical Exam Narrative Alert awake oriented x 3 no obvious distress no pallor no icterus no JVD s1s2 no murmurs lungs clear abdomen soft no organomegaly no edema no cyanosis Const alert, oriented x3, no apparent distress and average body habitus Orientation / Consciousness: oriented to person and oriented to place HEENT normocephalic Neck no lymphadenopathy Resp no use of accessory muscles and clear to auscultation bilaterally Cardio regular rate GI non-tender Auscultation: normoactive bowel sounds Assessment & Plan Assessment/Plan (1) ESRD (end stage renal disease): PLAN: On hemodialysis Tuesday, Tuesday, Tuesday schedule. Last dialysis was yesterday 05/31/2022. No acute indications today. We will continue dialysis as per schedule. Hyponatremia. Moderate. Likely due to water intake. Asymptomatic. This should improve with dialysis. MRSA bacteremia. Recurrent. Discussed with ID service. Antibiotics have been changed yesterday. Repeat cultures from yesterday pending will likely finalize tomorrow. (2) MRSA bacteremia:
--- NOTE | 2022-06-01 11:44 | WOUNDNOTE ---
wound photo: left great toe
[2022-06-01] MEDS: Insulin Lispro 100 UNIT/ML INSULN.PEN SC ×3 (12:06→21:38)
[2022-06-01 12:30] LABS: Bedside Glucose 200 mg/dL (74-106)
--- NOTE | 2022-06-01 15:50 | CASEMGMT ---
CORTNEY spoke with patient and let him know that [facility] has accepted him. SW explained that the rehab units did not feel he would be able to manage the 3 hours of therapy. Patient said he will tell his . Plan: d/c to [facility]
[2022-06-01 16:55] LABS: Bedside Glucose 232 mg/dL (74-106)
[2022-06-01] MEDS: Atorvastatin Calcium 40 MG Tablet PO (21:24)
[2022-06-01] MEDS: Menthol/Lanolin/Calamine/Znox 113 GM Tube 1 APPLIC TOPICAL (21:34)
[2022-06-01] MEDS: Insulin Glargine-YFGN 100 UNIT/ML Pen SC (21:37)
[2022-06-01] MEDS: MELATONIN 3 MG TABLET PO (21:41)
[2022-06-01 22:16] LABS: Bedside Glucose 171 mg/dL (74-106)
[2022-06-02] VITALS (13 sets, daily range): BP systolic 83–114; BP diastolic 48–77; PULSE 63–82; RESP 15–22; TEMP 35.9–36.7; O2SAT 95–98
[2022-06-02] MEDS: Psyllium 1 PACKET PO (05:21)
[2022-06-02] MEDS: Midodrine HCl 5 MG Tablet 10 MG PO ×3 (05:21→21:32)
[2022-06-02 06:47] LABS: Absolute Lymphocyte Count 0.35 X10^3/uL (0.83-4.51); Absolute Neutrophil Count 8.2 X10^3/uL (2.0-7.7); Basophil# 0.03 X10^3/uL; Basophil% 0.3 % (0-1); Eosinophils% 1.1 % (0-5); Hematocrit 29.3 % (40-54); Hemoglobin 9.3 g/dL (13.0-16.5); Lymphocyte # 0.35 X10^3/ul (0.83-4.51); Lymphocyte % 3.8 % (19-41); Mean Corp Hgb Conc 31.7 g/dL (32-36); Mean Corpuscular Hgb 29.9 pg (27.0-32.0); Mean Corpuscular Volume 94.2 fL (80-94); Mean Platelet Vol. 9.7 fl (6.2-12.0); Monocyte# 0.37 X10^3/uL; NRBC Flagged by Analyzer 0 % (0-5); Neutrophil # 8.23 X10^3/uL (2.7-7.7); Neutrophil % 88.8 % (47-70); POSITIVE DIFFERENTIAL YES; Platelet Count 166 K/mm3 (150-450); RBC Distribution Width CV 15.5 % (11.6-14.6); RBC Distribution Width SD 53.4 fl (35.1-43.9); Red Blood Count 3.11 M/mm3 (4.6-6.2); White Blood Count 9.3 K/mm3 (4.4-11.0)
[2022-06-02 06:50] LABS: Differential Indicated SCAN CRITERIA MET
[2022-06-02 07:05] LABS: Bedside Glucose 146 mg/dL (74-106)
[2022-06-02] MEDS: Budesonide Respules 0.5 MG/2 ML AMPUL.NEB. INHALATION ×2 (07:07→19:02)
[2022-06-02 07:12] LABS: Anion Gap 11 (5-15); BUN 60 mg/dL (7-18); BUN/Creat Ratio 11.2 RATIO (10-20); Calcium,Total 8.9 mg/dL (8.5-10.1); Chloride 89 mmol/L (98-107); Creatinine, Serum 5.36 mg/dL (0.70-1.30); EST Glomerular Filtration Rate 11 mL/min (>60); Est Glom Filt Rate - Afr Amer 13 mL/min (>60); Estimated Creatinine Clearance 10.63 ml/min; Glucose 147 mg/dL (74-106); Potassium 5.3 mmol/L (3.5-5.1); Sodium Level 124 mmol/L (136-145)
[2022-06-02 07:21] LABS: Anisocytosis 1+
--- NOTE | 2022-06-02 07:51 | PCM.PN.HOSP ---
Reason for Visit Reason for Visit: Diagnoses Methicillin resistant Staphylococcus aureus infection as the cause of diseases classified elsewhere (05/23/22) Essential (primary) hypertension (05/23/22) Non-ST elevation (NSTEMI) myocardial infarction (05/23/22) Ischemic cardiomyopathy (05/23/22) Longstanding persistent atrial fibrillation (05/23/22) Peripheral vascular disease, unspecified (05/23/22) Pneumonia, unspecified organism (05/23/22) Non-pressure chronic ulcer of other part of left foot with fat layer exposed (05/23/22) Chronic kidney disease, stage 4 (severe) (05/23/22) End stage renal disease (05/23/22) Bacteremia (05/23/22) Infection and inflammatory reaction due to internal right knee prosthesis, initial encounter (05/23/22) Presence of coronary angioplasty implant and graft (05/23/22) Subjective Subjective Patient seen currently undergoing dialysis. Repeat blood culture sent awaiting results. Sodium level down to 124. Management deferred to nephrology. Did update patient's daughter regarding his current status progress and prognosis. Objective Data Objective Data Vital Signs: Vital Signs Temp Pulse Resp BP Pulse Ox O2 Del Method O2 Flow Rate 97.6 F L 72 22 H 114/77 97 Nasal Cannula 3 06/02/22 05:20 06/02/22 05:20 06/02/22 05:20 06/02/22 05:20 06/02/22 05:20 06/02/22 05:20 06/02/22 05:20 FiO2 40 05/26/22 19:15 Oxygen Flow Rate (L/min) 3 Oxygen Delivery Method Nasal Cannula Weight: 105.1 kg Body Mass Index (BMI) 32.6 Intake & Output: Intake and Output for Last 24 Hours 05/31/22 06/01/22 06/02/22 23:59 23:59 23:59 Intake Total 1119.3334 / 1149.3334 1190.0001 / 1190.0001 106.6667 / 106.6667 Output Total 2500 / 2500 0 / 0 0 / 0 Balance -1380.6666 / -1350.6666 1190.0001 / 1190.0001 106.6667 / 106.6667 Lab / Micro Data Result Diagrams: 06/02/22 06:38 06/02/22 06:38 Labs: Laboratory Results - last 24 hr 06/01/22 06:35: Differential Comment SCANNED, Hypochromasia 2+ 06/01/22 06:35: Sodium 128 L, Potassium 4.6, Chloride 92 L, Carbon Dioxide 25.0, Anion Gap 11, BUN 50 H, Creatinine 4.65 H, Estim Creat Clear Calc 12.26, Est GFR (MDRD) Af Amer 16 L, Est GFR (MDRD) Non-Af 13 L, BUN/Creatinine Ratio 10.8, Glucose 122 H, Calcium 8.8, Phosphorus 5.1 H, Magnesium 2.1 06/01/22 12:05: POC Glucose 200 H 06/01/22 16:30: POC Glucose 232 H 06/01/22 21:37: POC Glucose 171 H 06/02/22 06:38: WBC 9.3, RBC 3.11 L, Hgb 9.3 L, Hct 29.3 L, MCV 94.2 H, MCH 29.9, MCHC 31.7 L, RDW Std Deviation 53.4 H, RDW Coeff of Moni 15.5 H, Plt Count 166, MPV 9.7, Immature Gran % (Auto) 2.000 H, Neut % (Auto) 88.8 H, Lymph % (Auto) 3.8 L, [place] % (Auto) 4.0, Eos % (Auto) 1.1, Baso % (Auto) 0.3, Absolute Neuts (auto) 8.2 H, Absolute Lymphs (auto) 0.35 L, Nucleated RBC % 0, Anisocytosis 1+ 06/02/22 06:38: Sodium 124 L, Potassium 5.3 H, Chloride 89 L, Carbon Dioxide 24.0, Anion Gap 11, BUN 60 H, Creatinine 5.36 H, Estim Creat Clear Calc 10.63, Est GFR (MDRD) Af Amer 13 L, Est GFR (MDRD) Non-Af 11 L, BUN/Creatinine Ratio 11.2, Glucose 147 H, Calcium 8.9 06/02/22 06:42: POC Glucose 146 H Micro: Microbiology 05/31/22 11:45 Blood Culture (Wb) - Anticubital Right Blood Culture - Preliminary Staphylococcus aureus 06/01/22 06:47 Blood Culture (Wb) - Right Wrist Blood Culture - Preliminary 05/31/22 11:53 Blood Culture (Wb) - Anticubital Right Blood Culture - Preliminary 05/26/22 Unknown Tissue - Suprapatellar Pouch Gram Stain - Final 05/26/22 Unknown Tissue - Suprapatellar Pouch Wound Culture - Final Meth. resistant Staph. aureus 05/26/22 Unknown Tissue - Suprapatellar Pouch Anaerobic Culture - Final No anaerobic bacteria isolated. 05/26/22 Unknown Tissue - Tibial Membrane Gram Stain - Final 05/26/22 Unknown Tissue - Tibial Membrane Wound Culture - Final Meth. resistant Staph. aureus 05/26/22 Unknown Tissue - Tibial Membrane Anaerobic Culture - Final No anaerobic bacteria isolated. 05/29/22 11:00 Blood Culture (Wb) - Venous Blood Culture - Preliminary Meth. resistant Staph. aureus 05/26/22 Unknown Tissue - Femoral Membrane Gram Stain - Final 05/26/22 Unknown Tissue - Femoral Membrane Wound Culture - Final Meth. resistant Staph. aureus 05/26/22 Unknown Tissue - Femoral Membrane Anaerobic Culture - Preliminary No growth in 48 hours. 05/25/22 14:35 Fluid - Synovial (joint) Gram Stain - Final 05/25/22 14:35 Fluid - Synovial (joint) Body Fluid Culture - Final Meth. resistant Staph. aureus 05/25/22 14:35 Fluid - Synovial (joint) Anaerobic Culture - Final No anaerobic bacteria isolated. 05/26/22 21:25 Blood Culture (Wb) - Anticubital Right Blood Culture - Final Meth. resistant Staph. aureus 05/27/22 10:25 Blood Culture (Wb) - Central Line Blood Culture - Final Meth. resistant Staph. aureus 05/25/22 19:46 Blood Culture (Wb) - Anticubital Right Blood Culture - Final Meth. resistant Staph. aureus 05/25/22 10:00 Blood Culture (Wb) - Right Hand Blood Culture - Final Meth. resistant Staph. aureus 05/24/22 19:25 Sputum, Expectorated/Coughed Gram Stain - Final 05/24/22 19:25 Sputum, Expectorated/Coughed Respiratory Culture - Final Meth. resistant Staph. aureus 05/23/22 19:10 Blood Culture (Wb) - Anticubital Right Bacteria Detection (PCR) - Final Staphylococcus aureus mecA Resistance Marker 05/23/22 19:10 Blood Culture (Wb) - Anticubital Right Blood Culture - Final Meth. resistant Staph. aureus 05/23/22 18:16 Blood Culture (Wb) - Right Forearm Blood Culture - Final Meth. resistant Staph. aureus 05/23/22 22:40 Mucosa - Nasopharyngeal Respiratory Panel (PCR) - Final Rhythm Strip Rhythm Strip: Junctional Rate: 63 Physical Exam Narrative GENERAL: cooperative HEENT: Atraumatic; normocephalic EYES; Anicteric, Normal Conjunctiva NECK; supple, normal thyroid, RESPIRATORY: Diminished to auscultation CARDIOVASCULAR: Regular S1 S2, GI: soft, normoactive bowel sounds, : No Renal angle tenderness; EXTREMITIES: Chronic skin changes involving bilateral lower extremity MUSCULOSKELETAL: no muscle wasting NEURO: Awake; no lateralizing signs. SKIN: No Rash PSYCH; Flat affect Assessment & Plan Assessment/Plan (1) Pneumonia: PLAN: Plan 81-year-old male with history of combined chronic diastolic and systolic CHF/ischemic cardiomyopathy, hypertension, ANKIT on CPAP, CAD status post PCI, type 2 diabetes mellitus with neuropathy, end-stage renal disease on hemodialysis, cirrhosis, chronic A. fib who presented 05/23 with 5 days of generalized weakness and recent intervention in left upper extremity secondary to pseudoaneurysm by Dr. Lunsford.. Blood cultures obtained on admission demonstrated MRSA. Patient has apparently experienced persistent bacteremia 1. Persistent MRSA bacteremia ?TTE was unremarkable. Patient underwent right knee washout by Dr. Alfaro on 05/26/2021. Imaging studies involving the thoracic spine was negative for osteomyelitis or discitis. Patient has been seen in consultation by Dr. Dueñas with infectious disease who did switch patient antibiotics to daptomycin and ceftaroline 2. MRSA pneumonia ? Management as discussed above 3. Diabetes mellitus type II -patient's oral hypoglycemics held. Placed on long acting insulin, Accu-Cheks a.c. and at bedtime and covered with sliding scale insulin 4. 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 With MRSA underwent joint aspiration as well as washout cultures grew Staph aureus 5. 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 Context of peripheral vascular disease. Patient seen in consultation by podiatry as well as vascular surgery. Wound care. Wound care nurse 6. Acute non-STEMI ? Patient apparently underwent left heart catheterization in 2021 was found to have severe disease but medical therapy was recommended since patient was deemed not to be a good candidate for PCI or bypass surgery 7. History of paroxysmal A-fib ? Rate controlled on amiodarone, on systemic anticoagulation with Eliquis resumed 8. Physical deconditioning - Requested for PT OT eval and high school social studies teacher to assist with discharge planning 9. Dyslipidemia -Patient is on statin therapy, continued at home dose 10. Class I obesity with BMI of 34.7 ? Weight loss advised 11. BPH ? Patient is on tamsulosin 12. End-stage renal disease ? On hemodialysis on Wednesdays and Fridays 13. Chronic congestive heart failure ? With reduced ejection fraction echo obtained on 03/17/2022 demonstrated EF of 35% with moderate segmental systolic dysfunction repeat echo on 05/25/2022 demonstrated EF of 30% 14. Cirrhosis of the liver ?? Nonalcoholic fatty liver disease related monitoring with LFTs 15. DVT prophylaxis ? Patient is on apixaban?continue Time spent in the patient's overall evaluation,decision-making process, review of diagnostic data, adjustment of management, discussion with other providers, nursing nursing and ancillary staff involved in patient's care documentation, 38 Minutes Charges/Coding Visit Charges Inpatient E&M: 97523 Subs Hosp L2
--- NOTE | 2022-06-02 10:48 | PCM.PN.REN ---
Subjective Subjective No new complaints. Cultures from 05/31/2022 are still positive. Cultures from 06/01/2022 pending Objective Data Objective Data Vital Signs: Vital Signs Temp Pulse Resp BP Pulse Ox O2 Del Method O2 Flow Rate 96.7 F L 63 20 H 92/57 L 96 Nasal Cannula 2 06/02/22 09:00 06/02/22 09:00 06/02/22 09:00 06/02/22 09:00 06/02/22 08:23 06/02/22 09:00 06/02/22 09:00 FiO2 40 05/26/22 19:15 Oxygen Flow Rate (L/min) 2 Oxygen Delivery Method Nasal Cannula Weight: 105.1 kg Body Mass Index (BMI) 32.6 Intake & Output: Intake and Output for Last 24 Hours 05/31/22 06/01/22 06/02/22 23:59 23:59 23:59 Intake Total 1119.3334 / 1149.3334 1190.0001 / 1190.0001 106.6667 / 106.6667 Output Total 2500 / 2500 0 / 0 0 / 0 Balance -1380.6666 / -1350.6666 1190.0001 / 1190.0001 106.6667 / 106.6667 Lab / Micro Data Result Diagrams: 06/02/22 06:38 06/02/22 06:38 Labs: Laboratory Results - last 24 hr 06/01/22 12:05: POC Glucose 200 H 06/01/22 16:30: POC Glucose 232 H 06/01/22 21:37: POC Glucose 171 H 06/02/22 06:38: WBC 9.3, RBC 3.11 L, Hgb 9.3 L, Hct 29.3 L, MCV 94.2 H, MCH 29.9, MCHC 31.7 L, RDW Std Deviation 53.4 H, RDW Coeff of Moni 15.5 H, Plt Count 166, MPV 9.7, Immature Gran % (Auto) 2.000 H, Neut % (Auto) 88.8 H, Lymph % (Auto) 3.8 L, [place] % (Auto) 4.0, Eos % (Auto) 1.1, Baso % (Auto) 0.3, Absolute Neuts (auto) 8.2 H, Absolute Lymphs (auto) 0.35 L, Nucleated RBC % 0, Anisocytosis 1+ 06/02/22 06:38: Sodium 124 L, Potassium 5.3 H, Chloride 89 L, Carbon Dioxide 24.0, Anion Gap 11, BUN 60 H, Creatinine 5.36 H, Estim Creat Clear Calc 10.63, Est GFR (MDRD) Af Amer 13 L, Est GFR (MDRD) Non-Af 11 L, BUN/Creatinine Ratio 11.2, Glucose 147 H, Calcium 8.9 06/02/22 06:42: POC Glucose 146 H Micro: Microbiology 05/31/22 11:45 Blood Culture (Wb) - Anticubital Right Blood Culture - Preliminary Staphylococcus aureus 05/26/22 Unknown Tissue - Femoral Membrane Gram Stain - Final 05/26/22 Unknown Tissue - Femoral Membrane Wound Culture - Final Meth. resistant Staph. aureus 05/26/22 Unknown Tissue - Femoral Membrane Anaerobic Culture - Final No anaerobic bacteria isolated. 05/31/22 11:53 Blood Culture (Wb) - Anticubital Right Blood Culture - Preliminary Staphylococcus aureus 06/01/22 06:47 Blood Culture (Wb) - Right Wrist Blood Culture - Preliminary 05/26/22 Unknown Tissue - Suprapatellar Pouch Gram Stain - Final 05/26/22 Unknown Tissue - Suprapatellar Pouch Wound Culture - Final Meth. resistant Staph. aureus 05/26/22 Unknown Tissue - Suprapatellar Pouch Anaerobic Culture - Final No anaerobic bacteria isolated. 05/26/22 Unknown Tissue - Tibial Membrane Gram Stain - Final 05/26/22 Unknown Tissue - Tibial Membrane Wound Culture - Final Meth. resistant Staph. aureus 05/26/22 Unknown Tissue - Tibial Membrane Anaerobic Culture - Final No anaerobic bacteria isolated. 05/29/22 11:00 Blood Culture (Wb) - Venous Blood Culture - Preliminary Meth. resistant Staph. aureus 05/25/22 14:35 Fluid - Synovial (joint) Gram Stain - Final 05/25/22 14:35 Fluid - Synovial (joint) Body Fluid Culture - Final Meth. resistant Staph. aureus 05/25/22 14:35 Fluid - Synovial (joint) Anaerobic Culture - Final No anaerobic bacteria isolated. 05/26/22 21:25 Blood Culture (Wb) - Anticubital Right Blood Culture - Final Meth. resistant Staph. aureus 05/27/22 10:25 Blood Culture (Wb) - Central Line Blood Culture - Final Meth. resistant Staph. aureus 05/25/22 19:46 Blood Culture (Wb) - Anticubital Right Blood Culture - Final Meth. resistant Staph. aureus 05/25/22 10:00 Blood Culture (Wb) - Right Hand Blood Culture - Final Meth. resistant Staph. aureus 05/24/22 19:25 Sputum, Expectorated/Coughed Gram Stain - Final 05/24/22 19:25 Sputum, Expectorated/Coughed Respiratory Culture - Final Meth. resistant Staph. aureus 05/23/22 19:10 Blood Culture (Wb) - Anticubital Right Bacteria Detection (PCR) - Final Staphylococcus aureus mecA Resistance Marker 05/23/22 19:10 Blood Culture (Wb) - Anticubital Right Blood Culture - Final Meth. resistant Staph. aureus 05/23/22 18:16 Blood Culture (Wb) - Right Forearm Blood Culture - Final Meth. resistant Staph. aureus 05/23/22 22:40 Mucosa - Nasopharyngeal Respiratory Panel (PCR) - Final Rhythm Strip Rhythm Strip: Junctional Rate: 63 Physical Exam Narrative Alert awake oriented x 3 no obvious distress no pallor no icterus no JVD s1s2 no murmurs lungs clear abdomen soft no organomegaly no edema no cyanosis Const alert, oriented x3, no apparent distress and average body habitus Orientation / Consciousness: oriented to person and oriented to place HEENT normocephalic Neck no lymphadenopathy Resp no use of accessory muscles and clear to auscultation bilaterally Cardio regular rate GI non-tender Auscultation: normoactive bowel sounds Assessment & Plan Assessment/Plan (1) ESRD (end stage renal disease): PLAN: On hemodialysis Tuesday, Tuesday, Tuesday schedule. Seen on dialysis today. Blood pressure is somewhat better. We will be able to remove about 2 to 3 L of fluid. Left arm edema, the same side as fistula. Recently had a fistulogram. Also had an infiltrate few days ago. No signs of infection. Elevate left arm as tolerated Hyponatremia. Moderate. Likely due to water intake. Asymptomatic. MRSA bacteremia. Recurrent. Waiting for cultures to be negative. Antibiotics changed 05/31/22. (2) MRSA bacteremia:
--- NOTE | 2022-06-02 11:12 | CASEMGMT ---
SW received a call from patient's , Leigh Ann. She was upset as patient is not going to [facility] she wants him to go to [facility]. SW let her know that SW was informed by covering SW that all 3 rehab units do not feel patient is appropriate for inpatient rehab. Leigh Ann said that is not true. She is talking with Alesha at [facility] and she said they got a message he is going somewhere else and his case was closed. SW told her SW will re-send the referral. SW re-sent the referral to [facility]. Await response. Emerald Nuñez [employer]
[2022-06-02 11:28] LABS: Hepatitis B Surface Antigen Non-Reactive (Nonreactive)
[2022-06-02 11:30] LABS: Bedside Glucose 140 mg/dL (74-106)
--- NOTE | 2022-06-02 12:08 | PN.ORTHO_ITS ---
Subjective Subjective Patient undergoing dialysis today. Remains overall medically stable. Continues to have MRSA positive bacteremia. Reports continued relief of his knee pain after surgery. Objective Data Objective Data Vital Signs: Vital Signs Temp Pulse Resp BP Pulse Ox O2 Del Method O2 Flow Rate 96.7 F L 63 20 H 92/57 L 96 Nasal Cannula 2 06/02/22 09:00 06/02/22 09:00 06/02/22 09:00 06/02/22 09:00 06/02/22 08:23 06/02/22 09:00 06/02/22 09:00 FiO2 40 05/26/22 19:15 Oxygen Flow Rate (L/min) 2 Oxygen Delivery Method Nasal Cannula Weight: 231 lb 11.293 oz Body Mass Index (BMI) 32.6 Intake & Output: Intake and Output for Last 24 Hours 05/31/22 06/01/22 06/02/22 23:59 23:59 23:59 Intake Total 1119.3334 / 1149.3334 1190.0001 / 1190.0001 106.6667 / 106.6667 Output Total 2500 / 2500 0 / 0 0 / 0 Balance -1380.6666 / -1350.6666 1190.0001 / 1190.0001 106.6667 / 106.6667 Lab / Micro Data Result Diagrams: 06/02/22 06:38 06/02/22 06:38 Labs: Laboratory Results - last 24 hr 06/01/22 12:05: POC Glucose 200 H 06/01/22 16:30: POC Glucose 232 H 06/01/22 21:37: POC Glucose 171 H 06/02/22 06:03: Hep Bs Antigen Non-Reactive 06/02/22 06:38: WBC 9.3, RBC 3.11 L, Hgb 9.3 L, Hct 29.3 L, MCV 94.2 H, MCH 29.9, MCHC 31.7 L, RDW Std Deviation 53.4 H, RDW Coeff of Moni 15.5 H, Plt Count 166, MPV 9.7, Immature Gran % (Auto) 2.000 H, Neut % (Auto) 88.8 H, Lymph % (Auto) 3.8 L, [place] % (Auto) 4.0, Eos % (Auto) 1.1, Baso % (Auto) 0.3, Absolute Neuts (auto) 8.2 H, Absolute Lymphs (auto) 0.35 L, Nucleated RBC % 0, Anisocytosis 1+ 06/02/22 06:38: Sodium 124 L, Potassium 5.3 H, Chloride 89 L, Carbon Dioxide 24.0, Anion Gap 11, BUN 60 H, Creatinine 5.36 H, Estim Creat Clear Calc 10.63, Est GFR (MDRD) Af Amer 13 L, Est GFR (MDRD) Non-Af 11 L, BUN/Creatinine Ratio 11.2, Glucose 147 H, Calcium 8.9 06/02/22 06:42: POC Glucose 146 H 06/02/22 11:11: POC Glucose 140 H Micro: Microbiology 05/31/22 11:45 Blood Culture (Wb) - Anticubital Right Blood Culture - Preliminary Staphylococcus aureus 05/26/22 Unknown Tissue - Femoral Membrane Gram Stain - Final 05/26/22 Unknown Tissue - Femoral Membrane Wound Culture - Final Meth. resistant Staph. aureus 05/26/22 Unknown Tissue - Femoral Membrane Anaerobic Culture - Final No anaerobic bacteria isolated. 05/31/22 11:53 Blood Culture (Wb) - Anticubital Right Blood Culture - Preliminary Staphylococcus aureus 06/01/22 06:47 Blood Culture (Wb) - Right Wrist Blood Culture - Preliminary 05/26/22 Unknown Tissue - Suprapatellar Pouch Gram Stain - Final 05/26/22 Unknown Tissue - Suprapatellar Pouch Wound Culture - Final Meth. resistant Staph. aureus 05/26/22 Unknown Tissue - Suprapatellar Pouch Anaerobic Culture - Final No anaerobic bacteria isolated. 05/26/22 Unknown Tissue - Tibial Membrane Gram Stain - Final 05/26/22 Unknown Tissue - Tibial Membrane Wound Culture - Final Meth. resistant Staph. aureus 05/26/22 Unknown Tissue - Tibial Membrane Anaerobic Culture - Final No anaerobic bacteria isolated. 05/29/22 11:00 Blood Culture (Wb) - Venous Blood Culture - Preliminary Meth. resistant Staph. aureus 05/25/22 14:35 Fluid - Synovial (joint) Gram Stain - Final 05/25/22 14:35 Fluid - Synovial (joint) Body Fluid Culture - Final Meth. resistant Staph. aureus 05/25/22 14:35 Fluid - Synovial (joint) Anaerobic Culture - Final No anaerobic bacteria isolated. 05/26/22 21:25 Blood Culture (Wb) - Anticubital Right Blood Culture - Final Meth. resistant Staph. aureus 05/27/22 10:25 Blood Culture (Wb) - Central Line Blood Culture - Final Meth. resistant Staph. aureus 05/25/22 19:46 Blood Culture (Wb) - Anticubital Right Blood Culture - Final Meth. resistant Staph. aureus 05/25/22 10:00 Blood Culture (Wb) - Right Hand Blood Culture - Final Meth. resistant Staph. aureus 05/24/22 19:25 Sputum, Expectorated/Coughed Gram Stain - Final 05/24/22 19:25 Sputum, Expectorated/Coughed Respiratory Culture - Final Meth. resistant Staph. aureus 05/23/22 19:10 Blood Culture (Wb) - Anticubital Right Bacteria Detection (PCR) - Final Staphylococcus aureus mecA Resistance Marker 05/23/22 19:10 Blood Culture (Wb) - Anticubital Right Blood Culture - Final Meth. resistant Staph. aureus 05/23/22 18:16 Blood Culture (Wb) - Right Forearm Blood Culture - Final Meth. resistant Staph. aureus 05/23/22 22:40 Mucosa - Nasopharyngeal Respiratory Panel (PCR) - Final Rhythm Strip Rhythm Strip: Junctional Rate: 63 Physical Exam Const alert and oriented x3 Extremity Extremity Narrative: Right lower extremity: Dressing is clean dry and intact. Mild postoperative effusion. Mild ecchymosis. No appreciable erythema. Tolerates short arc range of motion actively flex his knee without significant reproduction of pain. Neurovascular intact distally. Chronic vascular changes. Assessment & Plan Assessment/Plan (1) Infection of total right knee replacement: PLAN: 1. S/P irrigation debridement right knee with polyethylene exchange POD #7 2. Continue Pain Medications: Recommend Tylenol primarily for pain control. Currently patient is not having any pain in his right knee. 3. DVT Prophylaxis: Patient has resumed his Eliquis 4. PT/OT: Recommend advancing physical therapy as medically appropriate. 5. H & H: Hemoglobin improved today. Acute on chronic anemia. 6. Continue postoperative medical management per medicine 7. Continue antibiotics per infectious disease: Infectious diseases changing the antibiotics at this time. We will continue to monitor patient peripherally. Knee symptoms have not returned at this time however could be continued source of seeding bacteremia. At this time based on patient's medical health I did discuss with the patient and his daughter who is at bedside the possibility of surgery have however did not recommend we proceed with surgery at this time due to his current level of symptoms, significant relief and surgery and severe medical comorbidities with intraoperative complications at the last surgery. 8. Encouraged Incentive Spirometry 9. Disposition: We will continue to follow his chart peripherally. Please call with any questions or concerns and keep lines of communication open. [facility] Office: This dictation was created using voice recognition software. Phonetic and/or grammatical errors may exist.
--- NOTE | 2022-06-02 12:30 | ECHOLC_ITS ---
Reason For Study: R/O Endocarditis Procedure This was a limited 2D transthoracic echocardiogram. The study was technically difficult. Full echo w/ definity done on 05/24/2022. Exam performed portable in patient room. Left Ventricle Normal LV size. Mild concentric left ventricular hypertrophy. Moderate segmental systolic dysfunction (see wall motion). The estimated ejection fraction is 35 %. [place] : Akinetic. Mid- anteroseptal : Hypokinetic. Mid-Anterior : Severely Hypokinetic. Right Ventricle Normal RV size. Normal systolic function. Atria The left atrium is severely enlarged. The right atrium is severely enlarged. Mitral Valve There is mild to moderate mitral annular calcification. Great Vessels Normal aortic root. The pulmonary artery is normal size. Normal inferior vena cava. Pericardium/Pleural No pericardial effusion. MMode/2D Measurements & Calculations LVIDd: 4.0 cm IVSd: 1.3 cm Ao root diam: 3.0 cm LVIDs: 3.2 cm LVPWd: 1.3 cm FS: 19.2 % LAV(MOD-bp): 137.5 ml LVAd ap4: 41.9 cm2 LVAd ap2: 48.1 cm2 LAV(MOD-bp) Indexed: 63.3 ml/m2 LVLd ap4: 9.8 cm LVLd ap2: 10.1 cm LAV(MOD-sp2): 131.9 ml EDV(MOD-sp4): 148.8 ml EDV(MOD-sp2): 188.9 ml LAV(MOD-sp4): 121.1 ml EDV(sp4-el): 152.8 ml EDV(sp2-el): 194.3 ml LVAs ap4: 30.6 cm2 LVAs ap2: 35.8 cm2 LVLs ap4: 8.8 cm LVLs ap2: 9.6 cm ESV(MOD-sp4): 85.3 ml ESV(MOD-sp2): 107.5 ml ESV(sp4-el): 90.2 ml ESV(sp2-el): 113.6 ml EF(MOD-sp4): 42.7 % EF(MOD-sp2): 43.1 % EF(sp4-el): 41.0 % SV(MOD-sp4): 63.5 ml SV(MOD-sp2): 81.3 ml SV(sp4-el): 62.7 ml LA A4 area: 34.1 cm2 LA dimension(2D): 5.6 cm RA A4 area: 31.7 cm2 ECHO/Echo Limited w/Contrast Interpretation Summary Normal LV size. Moderate segmental systolic dysfunction (see wall motion). The estimated ejection fraction is 35 %. No obvious vegetation seen. Ordering Physician: Steve Dueñas Referring Physician: Masha Treviño M.D. Performed By: Princess Scanlon
--- NOTE | 2022-06-02 13:03 | CASEMGMT ---
CORTNEY received a call from Vita at [facility]. She said Alesha reviewing patient's case, but she is off today. Vita noted patient is complicated and asked if LTACH has been considered. CORTNEY said it has not, but it would be something to explore. Vita said Alesha will be back tomorrow and they will continue to follow along. Vita said they are not declining him. CORTNEY let Vita know that patient may be here through the weekend due to his blood cultures. CORTNEY will continue to keep them updated. CORTNEY called patient's Leigh Ann and let her know CORTNEY sent referral to [facility]. CORTNEY then spoke with Vita at [facility] and she confirmed that they did not deny patient. CORTNEY apologized as CORTNEY is not sure what happened. CORTNEY let Leigh Ann know CORTNEY will continue to keep [facility] updated. Emerald Nuñez SENIOR [employer]OPLESO[employer] DEVELOPER [place]
--- NOTE | 2022-06-02 13:07 | PCM.PN.ID ---
Physical Exam Narrative Feeling ok, knees are better, no fever, no n/v. Const alert and no apparent distress Resp normal air movement and clear to auscultation bilaterally Cardio regular rate GI soft to palpation, non-tender and non-distended Skin no rashes or lesions noted Skin Narrative: Knee swelling improved ID ID: Route of nutrition/ use of supplements: [] Nutritional Intake: [] IV Site: [] Melendez Catheter: [] Assessment & Plan Assessment/Plan (1) ESRD (end stage renal disease): (2) Pneumonia: (3) MRSA bacteremia: PLAN: Unclear source, could be from fistula procedure, gangrene of L hallux, or pneumonia. - TTE showed no veg, EF 30% - repeat bcx today to monitor for clearance - sputum cx with MRSA - complicated by R knee PJI - OR 05/26/[address] Alfaro. - no osteo/discitis seen on noncontrast t-spine mri. - bcx showing some vanc JUNIOR creep upwards. 05/31/22 changed to dapto/ceftaroline. Spoke with micro lab, dapto was susc, sending out for ceftaroline testing. - bcx still rapidly turning (+). Will repeat bcx and TTE today. will follow (4) Infection of total right knee replacement:
--- NOTE | 2022-06-02 13:17 | DIALYSIS ---
hemodialysis completed x 3.5 hrs. Access via left upper arm fistula. Net UF 3500ml. pt citlaly well. See HD flowsheet on chart.
[2022-06-02] MEDS: Aspirin E.C. 81 MG Tablet PO (13:39)
[2022-06-02] MEDS: Amiodarone 200 MG Tablet PO (13:40)
[2022-06-02] MEDS: Menthol/Lanolin/Calamine/Znox 113 GM Tube 1 APPLIC TOPICAL ×2 (13:40→21:33)
[2022-06-02] MEDS: Tamsulosin HCl 0.4 MG Capsule PO (13:40)
[2022-06-02] MEDS: SEVELAMER CARBONATE 800 MG TABLET PO ×2 (13:40→17:13)
[2022-06-02] MEDS: Multivitamins,Therapeutic Tablet 1 TABLET PO (13:40)
[2022-06-02] MEDS: APIXABAN 2.5 MG TABLET (WCH) PO ×2 (14:49→21:33)
[2022-06-02] MEDS: Insulin Lispro 100 UNIT/ML INSULN.PEN SC ×2 (16:15→21:36)
[2022-06-02 16:40] LABS: Bedside Glucose 207 mg/dL (74-106)
--- NOTE | 2022-06-02 19:07 | CPS ---
Patient weaned to Room Air from 1L O2
[2022-06-02] MEDS: Atorvastatin Calcium 40 MG Tablet PO (21:32)
[2022-06-02] MEDS: Insulin Glargine-YFGN 100 UNIT/ML Pen SC (21:35)
[2022-06-02] MEDS: Acetaminophen 325 MG Tablet 650 MG PO (21:41)
[2022-06-02] MEDS: MELATONIN 3 MG TABLET PO (21:42)
[2022-06-02 22:15] LABS: Bedside Glucose 175 mg/dL (74-106)
[2022-06-03] VITALS (10 sets, daily range): BP systolic 84–110; BP diastolic 50–62; PULSE 38–82; RESP 16–20; TEMP 36.4–36.7; O2SAT 96–100
[2022-06-03 06:29] LABS: Absolute Neutrophil Count 7.5 X10^3/uL (2.0-7.7); Basophil# 0.02 X10^3/uL; Basophil% 0.2 % (0-1); Eosinophil# 0.08 X10^3/uL; Hematocrit 26.7 % (40-54); Hemoglobin 8.4 g/dL (13.0-16.5); Lymphocyte % 3.6 % (19-41); Mean Corp Hgb Conc 31.5 g/dL (32-36); Mean Corpuscular Hgb 30.2 pg (27.0-32.0); Mean Platelet Vol. 9.6 fl (6.2-12.0); Monocyte# 0.36 X10^3/uL; Monocyte% 4.3 % (0-10); NRBC Flagged by Analyzer 0 % (0-5); Neutrophil # 7.47 X10^3/uL (2.7-7.7); Neutrophil % 89.2 % (47-70); POSITIVE DIFFERENTIAL YES; Platelet Count 160 K/mm3 (150-450); RBC Distribution Width CV 15.5 % (11.6-14.6); Red Blood Count 2.78 M/mm3 (4.6-6.2); White Blood Count 8.4 K/mm3 (4.4-11.0)
[2022-06-03] MEDS: Midodrine HCl 5 MG Tablet 10 MG PO ×3 (06:31→21:57)
[2022-06-03 06:34] LABS: Differential Indicated SCAN CRITERIA MET
[2022-06-03 06:46] LABS: Anisocytosis 1+; Macrocytosis 1+
[2022-06-03 06:55] LABS: Bedside Glucose 110 mg/dL (74-106)
[2022-06-03 07:03] LABS: Anion Gap 9 (5-15); BUN 41 mg/dL (7-18); BUN/Creat Ratio 9.7 RATIO (10-20); Calcium,Total 8.7 mg/dL (8.5-10.1); Chloride 92 mmol/L (98-107); Creatinine, Serum 4.22 mg/dL (0.70-1.30); EST Glomerular Filtration Rate 15 mL/min (>60); Est Glom Filt Rate - Afr Amer 18 mL/min (>60); Estimated Creatinine Clearance 13.51 ml/min; Glucose 111 mg/dL (74-106); Potassium 4.6 mmol/L (3.5-5.1); Sodium Level 130 mmol/L (136-145)
[2022-06-03] MEDS: Budesonide Respules 0.5 MG/2 ML AMPUL.NEB. INHALATION ×2 (07:32→19:33)
--- NOTE | 2022-06-03 09:50 | PCM.PN.ID ---
Physical Exam Narrative Sleeping this AM, no fever Const no apparent distress Resp normal air movement and clear to auscultation bilaterally Cardio regular rate and regular rhythm GI soft to palpation, non-tender and non-distended Extremity General Extremity: Negative for edema Skin no rashes or lesions noted ID ID: Route of nutrition/ use of supplements: [] Nutritional Intake: [] IV Site: [] Melendez Catheter: [] Assessment & Plan Assessment/Plan (1) ESRD (end stage renal disease): (2) Pneumonia: (3) MRSA bacteremia: PLAN: Unclear source, could be from fistula procedure, gangrene of L hallux, or pneumonia. - TTE showed no veg, EF 30% - repeat bcx today to monitor for clearance - sputum cx with MRSA - complicated by R knee PJI - OR 05/26/[address] Alfaro. - no osteo/discitis seen on noncontrast t-spine mri. - bcx showing some vanc JUNIOR creep upwards. 05/31/22 changed to dapto/ceftaroline. Spoke with micro lab, dapto was susc, sending out for ceftaroline testing. - bcx still rapidly turning (+). Repeat TTE 06/02/22 with no veg seen. will follow (4) Infection of total right knee replacement:
[2022-06-03] MEDS: SEVELAMER CARBONATE 800 MG TABLET PO ×3 (10:20→16:10)
[2022-06-03] MEDS: Aspirin E.C. 81 MG Tablet PO (10:21)
[2022-06-03] MEDS: Amiodarone 200 MG Tablet PO (10:21)
[2022-06-03] MEDS: APIXABAN 2.5 MG TABLET (WCH) PO ×2 (10:22→21:57)
[2022-06-03] MEDS: Tamsulosin HCl 0.4 MG Capsule PO (10:22)
[2022-06-03] MEDS: Multivitamins,Therapeutic Tablet 1 TABLET PO (10:22)
[2022-06-03] MEDS: Menthol/Lanolin/Calamine/Znox 113 GM Tube 1 APPLIC TOPICAL ×2 (10:23→22:00)
--- NOTE | 2022-06-03 10:38 | PCM.PN.HOSP ---
Reason for Visit Reason for Visit: Diagnoses Methicillin resistant Staphylococcus aureus infection as the cause of diseases classified elsewhere (05/23/22) Essential (primary) hypertension (05/23/22) Non-ST elevation (NSTEMI) myocardial infarction (05/23/22) Ischemic cardiomyopathy (05/23/22) Longstanding persistent atrial fibrillation (05/23/22) Peripheral vascular disease, unspecified (05/23/22) Pneumonia, unspecified organism (05/23/22) Non-pressure chronic ulcer of other part of left foot with fat layer exposed (05/23/22) Chronic kidney disease, stage 4 (severe) (05/23/22) End stage renal disease (05/23/22) Bacteremia (05/23/22) Infection and inflammatory reaction due to internal right knee prosthesis, initial encounter (05/23/22) Presence of coronary angioplasty implant and graft (05/23/22) Subjective Subjective Patient seen appears pretty to be stable at rest, repeat blood culture still growing Staph aureus Objective Data Objective Data Vital Signs: Vital Signs Temp Pulse Resp BP Pulse Ox O2 Del Method O2 Flow Rate 98.0 F 62 16 110/62 99 Nasal Cannula 2 06/03/22 10:16 06/03/22 10:16 06/03/22 10:16 06/03/22 10:16 06/03/22 10:16 06/03/22 10:16 06/03/22 10:16 FiO2 40 05/26/22 19:15 Oxygen Flow Rate (L/min) 2 Oxygen Delivery Method Nasal Cannula Weight: 105.6 kg Body Mass Index (BMI) 32.6 Intake & Output: Intake and Output for Last 24 Hours 06/01/22 06/02/22 06/03/22 23:59 23:59 23:59 Intake Total 1190.0001 / 1190.0001 1426.0001 / 1426.0001 106.6667 / 106.6667 Output Total 0 / 0 7000 / 7000 0 / 0 Balance 1190.0001 / 1190.0001 -5573.9999 / -5573.9999 106.6667 / 106.6667 Lab / Micro Data Result Diagrams: 06/03/22 06:14 06/03/22 06:14 Labs: Laboratory Results - last 24 hr 06/02/22 06:03: Hep Bs Antigen Non-Reactive 06/02/22 11:11: POC Glucose 140 H 06/02/22 16:12: POC Glucose 207 H 06/02/22 21:35: POC Glucose 175 H 06/03/22 06:14: WBC 8.4, RBC 2.78 L, Hgb 8.4 L, Hct 26.7 L, MCV 96.0 H, MCH 30.2, MCHC 31.5 L, RDW Std Deviation 54.0 H, RDW Coeff of Moni 15.5 H, Plt Count 160, MPV 9.6, Immature Gran % (Auto) 1.700 H, Neut % (Auto) 89.2 H, Lymph % (Auto) 3.6 L, [place] % (Auto) 4.3, Eos % (Auto) 1.0, Baso % (Auto) 0.2, Absolute Neuts (auto) 7.5, Absolute Lymphs (auto) 0.30 L, Nucleated RBC % 0, Anisocytosis 1+, Macrocytosis 1+ 06/03/22 06:14: Sodium 130 L, Potassium 4.6, Chloride 92 L, Carbon Dioxide 29.0, Anion Gap 9, BUN 41 H, Creatinine 4.22 H, Estim Creat Clear Calc 13.51, Est GFR (MDRD) Af Amer 18 L, Est GFR (MDRD) Non-Af 15 L, BUN/Creatinine Ratio 9.7 L, Glucose 111 H, Calcium 8.7 06/03/22 06:34: POC Glucose 110 H Micro: Microbiology 06/01/22 06:47 Blood Culture (Wb) - Right Wrist Blood Culture - Preliminary Staphylococcus aureus 05/29/22 11:00 Blood Culture (Wb) - Venous Blood Culture - Final Meth. resistant Staph. aureus 05/31/22 11:45 Blood Culture (Wb) - Anticubital Right Blood Culture - Preliminary Staphylococcus aureus 05/26/22 Unknown Tissue - Femoral Membrane Gram Stain - Final 05/26/22 Unknown Tissue - Femoral Membrane Wound Culture - Final Meth. resistant Staph. aureus 05/26/22 Unknown Tissue - Femoral Membrane Anaerobic Culture - Final No anaerobic bacteria isolated. 05/31/22 11:53 Blood Culture (Wb) - Anticubital Right Blood Culture - Preliminary Staphylococcus aureus 05/26/22 Unknown Tissue - Suprapatellar Pouch Gram Stain - Final 05/26/22 Unknown Tissue - Suprapatellar Pouch Wound Culture - Final Meth. resistant Staph. aureus 05/26/22 Unknown Tissue - Suprapatellar Pouch Anaerobic Culture - Final No anaerobic bacteria isolated. 05/26/22 Unknown Tissue - Tibial Membrane Gram Stain - Final 05/26/22 Unknown Tissue - Tibial Membrane Wound Culture - Final Meth. resistant Staph. aureus 05/26/22 Unknown Tissue - Tibial Membrane Anaerobic Culture - Final No anaerobic bacteria isolated. 05/25/22 14:35 Fluid - Synovial (joint) Gram Stain - Final 05/25/22 14:35 Fluid - Synovial (joint) Body Fluid Culture - Final Meth. resistant Staph. aureus 05/25/22 14:35 Fluid - Synovial (joint) Anaerobic Culture - Final No anaerobic bacteria isolated. 05/26/22 21:25 Blood Culture (Wb) - Anticubital Right Blood Culture - Final Meth. resistant Staph. aureus 05/27/22 10:25 Blood Culture (Wb) - Central Line Blood Culture - Final Meth. resistant Staph. aureus 05/25/22 19:46 Blood Culture (Wb) - Anticubital Right Blood Culture - Final Meth. resistant Staph. aureus 05/25/22 10:00 Blood Culture (Wb) - Right Hand Blood Culture - Final Meth. resistant Staph. aureus 05/24/22 19:25 Sputum, Expectorated/Coughed Gram Stain - Final 05/24/22 19:25 Sputum, Expectorated/Coughed Respiratory Culture - Final Meth. resistant Staph. aureus 05/23/22 19:10 Blood Culture (Wb) - Anticubital Right Bacteria Detection (PCR) - Final Staphylococcus aureus mecA Resistance Marker 05/23/22 19:10 Blood Culture (Wb) - Anticubital Right Blood Culture - Final Meth. resistant Staph. aureus 05/23/22 18:16 Blood Culture (Wb) - Right Forearm Blood Culture - Final Meth. resistant Staph. aureus 05/23/22 22:40 Mucosa - Nasopharyngeal Respiratory Panel (PCR) - Final Radiography Diagnostic Testing: Radiology Impression Echocardiogram 06/02/22 12:30 Interpretation Summary Normal LV size. Moderate segmental systolic dysfunction (see wall motion). The estimated ejection fraction is 35 %. No obvious vegetation seen. Ordering Physician: Steve Dueñas Referring Physician: Masha Treviño M.D. Performed By: Princess Scanlon Rhythm Strip Rhythm Strip: Junctional Rate: 63 Physical Exam Narrative GENERAL: cooperative HEENT: Atraumatic; normocephalic EYES; Anicteric, Normal Conjunctiva NECK; supple, normal thyroid, RESPIRATORY: Diminished to auscultation CARDIOVASCULAR: Regular S1 S2, GI: soft, normoactive bowel sounds, : No Renal angle tenderness; EXTREMITIES: Chronic skin changes involving bilateral lower extremity MUSCULOSKELETAL: no muscle wasting NEURO: Awake; no lateralizing signs. SKIN: No Rash PSYCH; Flat affect Const alert and no apparent distress Constitutional Narrative: Oriented HEENT normocephalic and head/scalp atraumatic Eyes Eyes Narrative: EOM grossly intact, anicteric Neck supple Resp normal respiratory effort and clear to auscultation bilaterally Cardio regular rate and regular rhythm GI soft to palpation, non-tender and non-distended Extremity Extremity Narrative: No edema appreciated Neuro moves all extremities Neuro Narrative: No overt focal deficits appreciated Psych Psych Narrative: Cooperative Assessment & Plan Assessment/Plan (1) Pneumonia: PLAN: Plan 81-year-old male with history of combined chronic diastolic and systolic CHF/ischemic cardiomyopathy, hypertension, ANKIT on CPAP, CAD status post PCI, type 2 diabetes mellitus with neuropathy, end-stage renal disease on hemodialysis, cirrhosis, chronic A. fib who presented 05/23 with 5 days of generalized weakness and recent intervention in left upper extremity secondary to pseudoaneurysm by Dr. Lunsford.. Blood cultures obtained on admission demonstrated MRSA. Patient has apparently experienced persistent bacteremia 1. Persistent MRSA bacteremia ?TTE was unremarkable. Patient underwent right knee washout by Dr. Alfaro on 05/26/2021. Imaging studies involving the thoracic spine was negative for osteomyelitis or discitis. Patient has been seen in consultation by Dr. Dueñas with infectious disease who did switch patient antibiotics to daptomycin and ceftaroline ? 06/03/2022; repeat blood cultures still growing Staph aureus 2. MRSA pneumonia ? Management as discussed above 3. Diabetes mellitus type II -patient's oral hypoglycemics held. Placed on long acting insulin, Accu-Cheks a.c. and at bedtime and covered with sliding scale insulin 4. 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 With MRSA underwent joint aspiration as well as washout cultures grew Staph aureus 5. 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 Context of peripheral vascular disease. Patient seen in consultation by podiatry as well as vascular surgery. Wound care. Wound care nurse 6. Acute non-STEMI ? Patient apparently underwent left heart catheterization in 2021 was found to have severe disease but medical therapy was recommended since patient was deemed not to be a good candidate for PCI or bypass surgery 7. History of paroxysmal A-fib ? Rate controlled on amiodarone, on systemic anticoagulation with Eliquis resumed 8. Physical deconditioning - Requested for PT OT eval and transition social worker to assist with discharge planning 9. Dyslipidemia -Patient is on statin therapy, continued at home dose 10. Class I obesity with BMI of 34.7 ? Weight loss advised 11. BPH ? Patient is on tamsulosin 12. End-stage renal disease ? On hemodialysis on Wednesdays and Fridays 13. Chronic congestive heart failure ? With reduced ejection fraction echo obtained on 03/17/2022 demonstrated EF of 35% with moderate segmental systolic dysfunction repeat echo on 05/25/2022 demonstrated EF of 30% 14. Cirrhosis of the liver ?? Nonalcoholic fatty liver disease related monitoring with LFTs 15. DVT prophylaxis ? Patient is on apixaban?continue Time spent in the patient's overall evaluation,decision-making process, review of diagnostic data, adjustment of management, discussion with other providers, nursing nursing and ancillary staff involved in patient's care documentation, 38 Minutes Charges/Coding Visit Charges Inpatient E&M: 07148 Subs Hosp L2
[2022-06-03] MEDS: Insulin Lispro 100 UNIT/ML INSULN.PEN SC ×3 (12:08→21:59)
--- NOTE | 2022-06-03 12:12 | CASEMGMT ---
CORTNEY sent updates to [facility]. Emerald Nuñez TEA BAG MACHINE TENDER [place]
--- NOTE | 2022-06-03 12:29 | PCM.PROGNOTE ---
Subjective Subjective Patient seen bedside today following physical therapy. Patient states he feels pretty good. informs me that he is going to a rehab facility. He denies any constitutional symptoms today. He has no further complaints today. Objective Data Objective Data Vital Signs: Vital Signs Temp Pulse Resp BP Pulse Ox O2 Del Method O2 Flow Rate 98.0 F 62 16 110/62 99 Nasal Cannula 2 06/03/22 10:16 06/03/22 10:16 06/03/22 10:16 06/03/22 10:16 06/03/22 10:16 06/03/22 10:16 06/03/22 10:16 FiO2 40 05/26/22 19:15 Oxygen Flow Rate (L/min) 2 Oxygen Delivery Method Nasal Cannula Weight: 105.6 kg Body Mass Index (BMI) 32.6 Intake & Output: Intake and Output for Last 24 Hours 06/01/22 06/02/22 06/03/22 23:59 23:59 23:59 Intake Total 1190.0001 / 1190.0001 1426.0001 / 1426.0001 106.6667 / 106.6667 Output Total 0 / 0 7000 / 7000 0 / 0 Balance 1190.0001 / 1190.0001 -5573.9999 / -5573.9999 106.6667 / 106.6667 Lab / Micro Data Result Diagrams: 06/03/22 06:14 06/03/22 06:14 Labs: Laboratory Results - last 24 hr 06/02/22 16:12: POC Glucose 207 H 06/02/22 21:35: POC Glucose 175 H 06/03/22 06:14: WBC 8.4, RBC 2.78 L, Hgb 8.4 L, Hct 26.7 L, MCV 96.0 H, MCH 30.2, MCHC 31.5 L, RDW Std Deviation 54.0 H, RDW Coeff of Moni 15.5 H, Plt Count 160, MPV 9.6, Immature Gran % (Auto) 1.700 H, Neut % (Auto) 89.2 H, Lymph % (Auto) 3.6 L, [place] % (Auto) 4.3, Eos % (Auto) 1.0, Baso % (Auto) 0.2, Absolute Neuts (auto) 7.5, Absolute Lymphs (auto) 0.30 L, Nucleated RBC % 0, Anisocytosis 1+, Macrocytosis 1+ 06/03/22 06:14: Sodium 130 L, Potassium 4.6, Chloride 92 L, Carbon Dioxide 29.0, Anion Gap 9, BUN 41 H, Creatinine 4.22 H, Estim Creat Clear Calc 13.51, Est GFR (MDRD) Af Amer 18 L, Est GFR (MDRD) Non-Af 15 L, BUN/Creatinine Ratio 9.7 L, Glucose 111 H, Calcium 8.7 06/03/22 06:34: POC Glucose 110 H Micro: Microbiology 06/02/22 12:48 Blood Culture (Wb) - Dialysis/Fistula Blood Culture - Preliminary 06/01/22 06:47 Blood Culture (Wb) - Right Wrist Blood Culture - Preliminary Staphylococcus aureus 05/29/22 11:00 Blood Culture (Wb) - Venous Blood Culture - Final Meth. resistant Staph. aureus 05/31/22 11:45 Blood Culture (Wb) - Anticubital Right Blood Culture - Preliminary Staphylococcus aureus 05/26/22 Unknown Tissue - Femoral Membrane Gram Stain - Final 05/26/22 Unknown Tissue - Femoral Membrane Wound Culture - Final Meth. resistant Staph. aureus 05/26/22 Unknown Tissue - Femoral Membrane Anaerobic Culture - Final No anaerobic bacteria isolated. 05/31/22 11:53 Blood Culture (Wb) - Anticubital Right Blood Culture - Preliminary Staphylococcus aureus 05/26/22 Unknown Tissue - Suprapatellar Pouch Gram Stain - Final 05/26/22 Unknown Tissue - Suprapatellar Pouch Wound Culture - Final Meth. resistant Staph. aureus 05/26/22 Unknown Tissue - Suprapatellar Pouch Anaerobic Culture - Final No anaerobic bacteria isolated. 05/26/22 Unknown Tissue - Tibial Membrane Gram Stain - Final 05/26/22 Unknown Tissue - Tibial Membrane Wound Culture - Final Meth. resistant Staph. aureus 05/26/22 Unknown Tissue - Tibial Membrane Anaerobic Culture - Final No anaerobic bacteria isolated. 05/25/22 14:35 Fluid - Synovial (joint) Gram Stain - Final 05/25/22 14:35 Fluid - Synovial (joint) Body Fluid Culture - Final Meth. resistant Staph. aureus 05/25/22 14:35 Fluid - Synovial (joint) Anaerobic Culture - Final No anaerobic bacteria isolated. 05/26/22 21:25 Blood Culture (Wb) - Anticubital Right Blood Culture - Final Meth. resistant Staph. aureus 05/27/22 10:25 Blood Culture (Wb) - Central Line Blood Culture - Final Meth. resistant Staph. aureus 05/25/22 19:46 Blood Culture (Wb) - Anticubital Right Blood Culture - Final Meth. resistant Staph. aureus 05/25/22 10:00 Blood Culture (Wb) - Right Hand Blood Culture - Final Meth. resistant Staph. aureus 05/24/22 19:25 Sputum, Expectorated/Coughed Gram Stain - Final 05/24/22 19:25 Sputum, Expectorated/Coughed Respiratory Culture - Final Meth. resistant Staph. aureus 05/23/22 19:10 Blood Culture (Wb) - Anticubital Right Bacteria Detection (PCR) - Final Staphylococcus aureus mecA Resistance Marker 05/23/22 19:10 Blood Culture (Wb) - Anticubital Right Blood Culture - Final Meth. resistant Staph. aureus 05/23/22 18:16 Blood Culture (Wb) - Right Forearm Blood Culture - Final Meth. resistant Staph. aureus 05/23/22 22:40 Mucosa - Nasopharyngeal Respiratory Panel (PCR) - Final Radiography Diagnostic Testing: Radiology Impression Echocardiogram 06/02/22 12:30 Interpretation Summary Normal LV size. Moderate segmental systolic dysfunction (see wall motion). The estimated ejection fraction is 35 %. No obvious vegetation seen. Ordering Physician: Steve Dueñas Referring Physician: Masha Treviño M.D. Performed By: Princess Scanlon Rhythm Strip Rhythm Strip: Junctional Rate: 63 Physical Exam Narrative NV status unchanges stable eschar to distal tuft of the left hallux noted, no signs of infection. Const alert and oriented x3 HEENT normocephalic Eyes General Eye: normal appearance of both eyes Lymph Lymphatic: no lymphadenopathy noted and no lymphedema noted Resp normal respiratory effort Extremity no joint enlargement, no calf tenderness and no pedal edema Extremity Narrative: DP and PT pulses are weakly palpable with CFT less than 5 seconds to the digits. Skin no rashes or lesions noted, skin turgor normal and no jaundice Wound Narrative: stable eschar to distal tuft of the left hallux noted, no signs of infection. 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, no signs of infection will continue to follow for local wound care Dressing changed today consisting of Betadine and dry sterile dressing Patient can be heel weightbearing in surgical shoe on left As site appears to be stable and patient is stabilizing, will plan to follow every third day Patient will ultimately require revascularization to left foot and may subsequently require hallux amputation, at this time this will be planned once patient is medically stable and likely on an outpatient basis WBC currently 8.4 Had undergone surgical intervention for infection of right total knee replacement by orthopedics. Cultures demonstrated MRSA. Still demonstrates positive blood cultures with Staph aureus. Currently on IV antibiotics Dapto/ceftaroline Patient is awaiting placement into rehabilitation facility. Please do not hesitate to call for any questions or concerns Jr. Daquan Vann.P.M. [facility] [place] [phone] Note: [email or web address] speech recognition power cleaner operator software was used to create portions of this document. Sound-alike and misspelled words, as well as other power cleaner operator errors may be contained in the documentation.
[2022-06-03 12:30] LABS: Bedside Glucose 169 mg/dL (74-106)
--- NOTE | 2022-06-03 12:40 | CHAPLAIN ---
Type of Pastoral Visit ___ Initial Visit _x__ Follow-up Visit ___ On-call Visit ___ General Patient Visit ___ Spiritual Assessment ___ Family Conference ___ Bereavement ___ Rapid Response ___ Code Blue ___ Other (describe below) Pastoral Care Referral From _x__ Patient ___ Family ___ Nurse ___ Physician ___ Clerk Supervisor ___ [place] Manager ___ Other (describe below) Sacrament/Intervention _x__ Active listening ___ Anointing ___ Temple ___ Bereavement ___ Communion ___ Augustina exploration ___ ___ Life review _x__ Prayer ___ Reconciliation ___ Sacrament of Sick _x__ Supportive presence ___ Wedding ___ Other (describe below) Pastoral Comments patient welcomes visit; pt had a birthday this week and spouse has a birthday today so many mancilla, cards, and balloons are in the room; casual conversation, support offered, explanation of hopes and plans for next phase of care; pt requests a prayer for his support; PT and OT arrived to give therapy
--- NOTE | 2022-06-03 13:05 | CASEMGMT ---
SW received notification via [facility] that [facility] has accepted patient. They ask that SW continue to send them updates. Emerald Nuñez TABLE CUT OFF SAW OPERATOR BENDING ROLL HAND
--- NOTE | 2022-06-03 14:31 | PCM.PN.REN ---
Subjective Subjective No new complaints Objective Data Objective Data Vital Signs: Vital Signs Temp Pulse Resp BP Pulse Ox O2 Del Method O2 Flow Rate 97.5 F L 82 17 84/59 L 100 Nasal Cannula 2 06/03/22 14:11 06/03/22 14:11 06/03/22 14:11 06/03/22 14:11 06/03/22 14:11 06/03/22 14:11 06/03/22 14:11 FiO2 40 05/26/22 19:15 Oxygen Flow Rate (L/min) 2 Oxygen Delivery Method Nasal Cannula Weight: 105.6 kg Body Mass Index (BMI) 32.6 Intake & Output: Intake and Output for Last 24 Hours 06/01/22 06/02/22 06/03/22 23:59 23:59 23:59 Intake Total 1190.0001 / 1190.0001 1426.0001 / 1426.0001 106.6667 / 106.6667 Output Total 0 / 0 7000 / 7000 0 / 0 Balance 1190.0001 / 1190.0001 -5573.9999 / -5573.9999 106.6667 / 106.6667 Lab / Micro Data Result Diagrams: 06/03/22 06:14 06/03/22 06:14 Labs: Laboratory Results - last 24 hr 06/02/22 16:12: POC Glucose 207 H 06/02/22 21:35: POC Glucose 175 H 06/03/22 06:14: WBC 8.4, RBC 2.78 L, Hgb 8.4 L, Hct 26.7 L, MCV 96.0 H, MCH 30.2, MCHC 31.5 L, RDW Std Deviation 54.0 H, RDW Coeff of Moni 15.5 H, Plt Count 160, MPV 9.6, Immature Gran % (Auto) 1.700 H, Neut % (Auto) 89.2 H, Lymph % (Auto) 3.6 L, [place] % (Auto) 4.3, Eos % (Auto) 1.0, Baso % (Auto) 0.2, Absolute Neuts (auto) 7.5, Absolute Lymphs (auto) 0.30 L, Nucleated RBC % 0, Anisocytosis 1+, Macrocytosis 1+ 06/03/22 06:14: Sodium 130 L, Potassium 4.6, Chloride 92 L, Carbon Dioxide 29.0, Anion Gap 9, BUN 41 H, Creatinine 4.22 H, Estim Creat Clear Calc 13.51, Est GFR (MDRD) Af Amer 18 L, Est GFR (MDRD) Non-Af 15 L, BUN/Creatinine Ratio 9.7 L, Glucose 111 H, Calcium 8.7 06/03/22 06:34: POC Glucose 110 H 06/03/22 12:06: POC Glucose 169 H Micro: Microbiology 06/02/22 12:48 Blood Culture (Wb) - Dialysis/Fistula Blood Culture - Preliminary 06/01/22 06:47 Blood Culture (Wb) - Right Wrist Blood Culture - Preliminary Staphylococcus aureus 05/29/22 11:00 Blood Culture (Wb) - Venous Blood Culture - Final Meth. resistant Staph. aureus 05/31/22 11:45 Blood Culture (Wb) - Anticubital Right Blood Culture - Preliminary Staphylococcus aureus 05/26/22 Unknown Tissue - Femoral Membrane Gram Stain - Final 05/26/22 Unknown Tissue - Femoral Membrane Wound Culture - Final Meth. resistant Staph. aureus 05/26/22 Unknown Tissue - Femoral Membrane Anaerobic Culture - Final No anaerobic bacteria isolated. 05/31/22 11:53 Blood Culture (Wb) - Anticubital Right Blood Culture - Preliminary Staphylococcus aureus 05/26/22 Unknown Tissue - Suprapatellar Pouch Gram Stain - Final 05/26/22 Unknown Tissue - Suprapatellar Pouch Wound Culture - Final Meth. resistant Staph. aureus 05/26/22 Unknown Tissue - Suprapatellar Pouch Anaerobic Culture - Final No anaerobic bacteria isolated. 05/26/22 Unknown Tissue - Tibial Membrane Gram Stain - Final 05/26/22 Unknown Tissue - Tibial Membrane Wound Culture - Final Meth. resistant Staph. aureus 05/26/22 Unknown Tissue - Tibial Membrane Anaerobic Culture - Final No anaerobic bacteria isolated. 05/25/22 14:35 Fluid - Synovial (joint) Gram Stain - Final 05/25/22 14:35 Fluid - Synovial (joint) Body Fluid Culture - Final Meth. resistant Staph. aureus 05/25/22 14:35 Fluid - Synovial (joint) Anaerobic Culture - Final No anaerobic bacteria isolated. 05/26/22 21:25 Blood Culture (Wb) - Anticubital Right Blood Culture - Final Meth. resistant Staph. aureus 05/27/22 10:25 Blood Culture (Wb) - Central Line Blood Culture - Final Meth. resistant Staph. aureus 05/25/22 19:46 Blood Culture (Wb) - Anticubital Right Blood Culture - Final Meth. resistant Staph. aureus 05/25/22 10:00 Blood Culture (Wb) - Right Hand Blood Culture - Final Meth. resistant Staph. aureus 05/24/22 19:25 Sputum, Expectorated/Coughed Gram Stain - Final 05/24/22 19:25 Sputum, Expectorated/Coughed Respiratory Culture - Final Meth. resistant Staph. aureus 05/23/22 19:10 Blood Culture (Wb) - Anticubital Right Bacteria Detection (PCR) - Final Staphylococcus aureus mecA Resistance Marker 05/23/22 19:10 Blood Culture (Wb) - Anticubital Right Blood Culture - Final Meth. resistant Staph. aureus 05/23/22 18:16 Blood Culture (Wb) - Right Forearm Blood Culture - Final Meth. resistant Staph. aureus 05/23/22 22:40 Mucosa - Nasopharyngeal Respiratory Panel (PCR) - Final Radiography Diagnostic Testing: Radiology Impression Echocardiogram 06/02/22 12:30 Interpretation Summary Normal LV size. Moderate segmental systolic dysfunction (see wall motion). The estimated ejection fraction is 35 %. No obvious vegetation seen. Ordering Physician: Steve Dueñas Referring Physician: Masha Treviño M.D. Performed By: Princess Scanlon Rhythm Strip Rhythm Strip: Junctional Rate: 63 Physical Exam Narrative Alert awake oriented x 3 no obvious distress no pallor no icterus no JVD s1s2 no murmurs lungs clear abdomen soft no organomegaly no edema no cyanosis Const alert, oriented x3, no apparent distress and average body habitus Orientation / Consciousness: oriented to person and oriented to place HEENT normocephalic Neck no lymphadenopathy Resp no use of accessory muscles and clear to auscultation bilaterally Cardio regular rate GI non-tender Auscultation: normoactive bowel sounds Assessment & Plan Assessment/Plan (1) ESRD (end stage renal disease): PLAN: On hemodialysis Tuesday, Tuesday, Tuesday schedule. Left arm edema, the same side as fistula. Recently had a fistulogram. Also had an infiltrate few days ago. No signs of infection. Elevate left arm as tolerated Hyponatremia. Moderate. Better MRSA bacteremia. Blood cultures are still positive. Waiting for cultures to turn negative. Antibiotics changed on Tuesday. Discussed with at bedside. (2) MRSA bacteremia:
[2022-06-03 16:30] LABS: Bedside Glucose 200 mg/dL (74-106)
[2022-06-03] MEDS: Atorvastatin Calcium 40 MG Tablet PO (21:57)
[2022-06-03] MEDS: Insulin Glargine-YFGN 100 UNIT/ML Pen SC (21:59)
[2022-06-03] MEDS: MELATONIN 3 MG TABLET PO (22:04)
[2022-06-03] MEDS: Acetaminophen 325 MG Tablet 650 MG PO (22:04)
[2022-06-04] VITALS (11 sets, daily range): BP systolic 83–107; BP diastolic 39–63; PULSE 61–82; RESP 16–20; TEMP 36.1–37.1; O2SAT 95–99
[2022-06-04 00:06] LABS: Bedside Glucose 159 mg/dL (74-106)
[2022-06-04] MEDS: Midodrine HCl 5 MG Tablet 10 MG PO ×3 (05:01→22:27)
[2022-06-04 06:45] LABS: Bedside Glucose 117 mg/dL (74-106)
--- NOTE | 2022-06-04 06:50 | NURSING ---
Patient requesting to not turn off back. Pt educated about this RN about benefits of Q2 turn and skin breakdown.
[2022-06-04] MEDS: Budesonide Respules 0.5 MG/2 ML AMPUL.NEB. INHALATION ×2 (07:44→20:25)
--- NOTE | 2022-06-04 08:14 | PCM.PN.HOSP ---
Reason for Visit Reason for Visit: Diagnoses Methicillin resistant Staphylococcus aureus infection as the cause of diseases classified elsewhere (05/23/22) Essential (primary) hypertension (05/23/22) Non-ST elevation (NSTEMI) myocardial infarction (05/23/22) Ischemic cardiomyopathy (05/23/22) Longstanding persistent atrial fibrillation (05/23/22) Peripheral vascular disease, unspecified (05/23/22) Pneumonia, unspecified organism (05/23/22) Non-pressure chronic ulcer of other part of left foot with fat layer exposed (05/23/22) Chronic kidney disease, stage 4 (severe) (05/23/22) End stage renal disease (05/23/22) Bacteremia (05/23/22) Infection and inflammatory reaction due to internal right knee prosthesis, initial encounter (05/23/22) Presence of coronary angioplasty implant and graft (05/23/22) Subjective Subjective Patient seen appears comfortable at rest. Repeat blood culture still positive forGram-positive cocci in clusters. Patient underwent repeat TTE on 06/02/2022 which was negative for vegetations. Objective Data Objective Data Vital Signs: Vital Signs Temp Pulse Resp BP Pulse Ox O2 Del Method O2 Flow Rate 98.7 F 82 20 H 107/63 99 Nasal Cannula 3 06/04/22 04:00 06/04/22 04:00 06/04/22 04:00 06/04/22 04:00 06/04/22 04:00 06/04/22 06:45 06/04/22 06:45 FiO2 40 05/26/22 19:15 Oxygen Flow Rate (L/min) 3 Oxygen Delivery Method Nasal Cannula Weight: 107 kg Body Mass Index (BMI) 32.6 Intake & Output: Intake and Output for Last 24 Hours 06/02/22 06/03/22 06/04/22 23:59 23:59 23:59 Intake Total 1426.0001 / 1426.0001 320.0001 / 320.0001 106.6667 / 106.6667 Output Total 7000 / 7000 0 / 0 0 / 0 Balance -5573.9999 / -5573.9999 320.0001 / 320.0001 106.6667 / 106.6667 Lab / Micro Data Result Diagrams: 06/03/22 06:14 06/03/22 06:14 Labs: Laboratory Results - last 24 hr 06/03/22 12:06: POC Glucose 169 H 06/03/22 16:00: POC Glucose 200 H 06/03/22 21:58: POC Glucose 159 H 06/04/22 06:21: POC Glucose 117 H Micro: Microbiology 06/02/22 12:48 Blood Culture (Wb) - Dialysis/Fistula Blood Culture - Preliminary Staphylococcus aureus 06/01/22 06:47 Blood Culture (Wb) - Right Wrist Blood Culture - Preliminary Staphylococcus aureus 05/29/22 11:00 Blood Culture (Wb) - Venous Blood Culture - Final Meth. resistant Staph. aureus 05/31/22 11:45 Blood Culture (Wb) - Anticubital Right Blood Culture - Preliminary Staphylococcus aureus 05/26/22 Unknown Tissue - Femoral Membrane Gram Stain - Final 05/26/22 Unknown Tissue - Femoral Membrane Wound Culture - Final Meth. resistant Staph. aureus 05/26/22 Unknown Tissue - Femoral Membrane Anaerobic Culture - Final No anaerobic bacteria isolated. 05/31/22 11:53 Blood Culture (Wb) - Anticubital Right Blood Culture - Preliminary Staphylococcus aureus 05/26/22 Unknown Tissue - Suprapatellar Pouch Gram Stain - Final 05/26/22 Unknown Tissue - Suprapatellar Pouch Wound Culture - Final Meth. resistant Staph. aureus 05/26/22 Unknown Tissue - Suprapatellar Pouch Anaerobic Culture - Final No anaerobic bacteria isolated. 05/26/22 Unknown Tissue - Tibial Membrane Gram Stain - Final 05/26/22 Unknown Tissue - Tibial Membrane Wound Culture - Final Meth. resistant Staph. aureus 05/26/22 Unknown Tissue - Tibial Membrane Anaerobic Culture - Final No anaerobic bacteria isolated. 05/25/22 14:35 Fluid - Synovial (joint) Gram Stain - Final 05/25/22 14:35 Fluid - Synovial (joint) Body Fluid Culture - Final Meth. resistant Staph. aureus 05/25/22 14:35 Fluid - Synovial (joint) Anaerobic Culture - Final No anaerobic bacteria isolated. 05/26/22 21:25 Blood Culture (Wb) - Anticubital Right Blood Culture - Final Meth. resistant Staph. aureus 05/27/22 10:25 Blood Culture (Wb) - Central Line Blood Culture - Final Meth. resistant Staph. aureus 05/25/22 19:46 Blood Culture (Wb) - Anticubital Right Blood Culture - Final Meth. resistant Staph. aureus 05/25/22 10:00 Blood Culture (Wb) - Right Hand Blood Culture - Final Meth. resistant Staph. aureus 05/24/22 19:25 Sputum, Expectorated/Coughed Gram Stain - Final 05/24/22 19:25 Sputum, Expectorated/Coughed Respiratory Culture - Final Meth. resistant Staph. aureus 05/23/22 19:10 Blood Culture (Wb) - Anticubital Right Bacteria Detection (PCR) - Final Staphylococcus aureus mecA Resistance Marker 05/23/22 19:10 Blood Culture (Wb) - Anticubital Right Blood Culture - Final Meth. resistant Staph. aureus 05/23/22 18:16 Blood Culture (Wb) - Right Forearm Blood Culture - Final Meth. resistant Staph. aureus 05/23/22 22:40 Mucosa - Nasopharyngeal Respiratory Panel (PCR) - Final Rhythm Strip Rhythm Strip: Junctional Rate: 63 Physical Exam Narrative GENERAL: cooperative HEENT: Atraumatic; normocephalic EYES; Anicteric, Normal Conjunctiva NECK; supple, normal thyroid, RESPIRATORY: Diminished to auscultation CARDIOVASCULAR: Regular S1 S2, GI: soft, normoactive bowel sounds, : No Renal angle tenderness; EXTREMITIES: Chronic skin changes involving bilateral lower extremity MUSCULOSKELETAL: no muscle wasting NEURO: Awake; no lateralizing signs. SKIN: No Rash PSYCH; Flat affect Assessment & Plan Assessment/Plan (1) Pneumonia: PLAN: Plan 81-year-old male with history of combined chronic diastolic and systolic CHF/ischemic cardiomyopathy, hypertension, ANKIT on CPAP, CAD status post PCI, type 2 diabetes mellitus with neuropathy, end-stage renal disease on hemodialysis, cirrhosis, chronic A. fib who presented 05/23 with 5 days of generalized weakness and recent intervention in left upper extremity secondary to pseudoaneurysm by Dr. Lunsford.. Blood cultures obtained on admission demonstrated MRSA. Patient has apparently experienced persistent bacteremia 1. Persistent MRSA bacteremia ?TTE was unremarkable. Patient underwent right knee washout by Dr. Alfaro on 05/26/2021. Imaging studies involving the thoracic spine was negative for osteomyelitis or discitis. Patient has been seen in consultation by Dr. Dueñas with infectious disease who did switch patient antibiotics to daptomycin and ceftaroline ? 06/03/2022; repeat blood cultures still growing Staph aureus ? 06/04/2022; Repeat blood culture still positive forGram-positive cocci in clusters. Patient underwent repeat TTE on 06/02/2022 which was negative for vegetations. 2. MRSA pneumonia ? Management as discussed above 3. Diabetes mellitus type II -patient's oral hypoglycemics held. Placed on long acting insulin, Accu-Cheks a.c. and at bedtime and covered with sliding scale insulin 4. 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 With MRSA underwent joint aspiration as well as washout cultures grew Staph aureus 5. 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 Context of peripheral vascular disease. Patient seen in consultation by podiatry as well as vascular surgery. Wound care. Wound care nurse 6. Acute non-STEMI ? Patient apparently underwent left heart catheterization in 2021 was found to have severe disease but medical therapy was recommended since patient was deemed not to be a good candidate for PCI or bypass surgery 7. History of paroxysmal A-fib ? Rate controlled on amiodarone, on systemic anticoagulation with Eliquis resumed 8. Physical deconditioning - Requested for PT OT eval and social secretary to assist with discharge planning 9. Dyslipidemia -Patient is on statin therapy, continued at home dose 10. Class I obesity with BMI of 34.7 ? Weight loss advised 11. BPH ? Patient is on tamsulosin 12. End-stage renal disease ? On hemodialysis on Wednesdays and Fridays 13. Chronic congestive heart failure ? With reduced ejection fraction echo obtained on 03/17/2022 demonstrated EF of 35% with moderate segmental systolic dysfunction repeat echo on 05/25/2022 demonstrated EF of 30% 14. Cirrhosis of the liver ?? Nonalcoholic fatty liver disease related monitoring with LFTs 15. DVT prophylaxis ? Patient is on apixaban?continue Time spent in the patient's overall evaluation,decision-making process, review of diagnostic data, adjustment of management, discussion with other providers, nursing nursing and ancillary staff involved in patient's care documentation, 38 Minutes Charges/Coding Visit Charges Inpatient E&M: 19022 Subs Hosp L2
[2022-06-04] MEDS: SEVELAMER CARBONATE 800 MG TABLET PO ×2 (10:18→12:47)
[2022-06-04] MEDS: Amiodarone 200 MG Tablet PO (10:18)
[2022-06-04] MEDS: Menthol/Lanolin/Calamine/Znox 113 GM Tube 1 APPLIC TOPICAL ×2 (10:18→22:27)
[2022-06-04] MEDS: Multivitamins,Therapeutic Tablet 1 TABLET PO (10:18)
[2022-06-04] MEDS: Tamsulosin HCl 0.4 MG Capsule PO (10:19)
[2022-06-04] MEDS: Polyethylene Glycol 3350 17 GM PACKET PO (10:19)
--- NOTE | 2022-06-04 11:15 | PCM.PN.ID ---
Physical Exam Narrative Feeling ok, mild R knee soreness. No fever, no body aches, no new joint pain. No issues with fistula except for some bleeding yesterday. Const alert and no apparent distress Resp normal air movement and clear to auscultation bilaterally Cardio regular rate and regular rhythm GI soft to palpation, non-tender and non-distended Skin no rashes or lesions noted ID ID: Route of nutrition/ use of supplements: [] Nutritional Intake: [] IV Site: [] Melendez Catheter: [] Assessment & Plan Assessment/Plan (1) ESRD (end stage renal disease): (2) Pneumonia: (3) MRSA bacteremia: PLAN: Unclear source, could be from fistula procedure, gangrene of L hallux, or pneumonia. - TTE showed no veg, EF 30% - repeat bcx today to monitor for clearance - sputum cx with MRSA - complicated by R knee PJI - OR 05/26/[address] Alfaro. - no osteo/discitis seen on noncontrast t-spine mri. - bcx showing some vanc JUNIOR creep upwards. 05/31/22 changed to dapto/ceftaroline. Spoke with micro lab, dapto was susc, sending out for ceftaroline testing. - bcx still rapidly turning (+). Repeat TTE 06/02/22 with no veg seen. will follow (4) Infection of total right knee replacement:
[2022-06-04] MEDS: Aspirin E.C. 81 MG Tablet PO (11:29)
--- NOTE | 2022-06-04 12:31 | CASEMGMT ---
SW sent updated information to [facility] via [facility]. Emerald Nuñez [employer]GER [employer]ER
[2022-06-04 13:20] LABS: Bedside Glucose 149 mg/dL (74-106)
--- NOTE | 2022-06-04 15:08 | PCM.PN.REN ---
Subjective Subjective Oozing from left arm AV fistula. Eliquis is on hold. Blood cultures are still positive. Objective Data Objective Data Vital Signs: Vital Signs Temp Pulse Resp BP Pulse Ox O2 Del Method O2 Flow Rate 98.1 F 61 16 99/49 L 98 Nasal Cannula 2 06/04/22 12:52 06/04/22 12:52 06/04/22 12:52 06/04/22 12:52 06/04/22 12:52 06/04/22 12:52 06/04/22 12:52 FiO2 40 05/26/22 19:15 Oxygen Flow Rate (L/min) 2 Oxygen Delivery Method Nasal Cannula Weight: 107 kg Body Mass Index (BMI) 32.6 Intake & Output: Intake and Output for Last 24 Hours 06/02/22 06/03/22 06/04/22 23:59 23:59 23:59 Intake Total 1426.0001 / 1426.0001 320.0001 / 320.0001 106.6667 / 106.6667 Output Total 7000 / 7000 0 / 0 0 / 0 Balance -5573.9999 / -5573.9999 320.0001 / 320.0001 106.6667 / 106.6667 Lab / Micro Data Result Diagrams: 06/03/22 06:14 06/03/22 06:14 Labs: Laboratory Results - last 24 hr 06/03/22 16:00: POC Glucose 200 H 06/03/22 21:58: POC Glucose 159 H 06/04/22 06:21: POC Glucose 117 H 06/04/22 12:46: POC Glucose 149 H Micro: Microbiology 06/03/22 09:50 Blood Culture (Wb) - Anticubital Right Blood Culture - Preliminary 06/02/22 12:48 Blood Culture (Wb) - Dialysis/Fistula Blood Culture - Preliminary Staphylococcus aureus 06/01/22 06:47 Blood Culture (Wb) - Right Wrist Blood Culture - Preliminary Staphylococcus aureus 05/29/22 11:00 Blood Culture (Wb) - Venous Blood Culture - Final Meth. resistant Staph. aureus 05/31/22 11:45 Blood Culture (Wb) - Anticubital Right Blood Culture - Preliminary Staphylococcus aureus 05/26/22 Unknown Tissue - Femoral Membrane Gram Stain - Final 05/26/22 Unknown Tissue - Femoral Membrane Wound Culture - Final Meth. resistant Staph. aureus 05/26/22 Unknown Tissue - Femoral Membrane Anaerobic Culture - Final No anaerobic bacteria isolated. 05/31/22 11:53 Blood Culture (Wb) - Anticubital Right Blood Culture - Preliminary Staphylococcus aureus 05/26/22 Unknown Tissue - Suprapatellar Pouch Gram Stain - Final 05/26/22 Unknown Tissue - Suprapatellar Pouch Wound Culture - Final Meth. resistant Staph. aureus 05/26/22 Unknown Tissue - Suprapatellar Pouch Anaerobic Culture - Final No anaerobic bacteria isolated. 05/26/22 Unknown Tissue - Tibial Membrane Gram Stain - Final 05/26/22 Unknown Tissue - Tibial Membrane Wound Culture - Final Meth. resistant Staph. aureus 05/26/22 Unknown Tissue - Tibial Membrane Anaerobic Culture - Final No anaerobic bacteria isolated. 05/25/22 14:35 Fluid - Synovial (joint) Gram Stain - Final 05/25/22 14:35 Fluid - Synovial (joint) Body Fluid Culture - Final Meth. resistant Staph. aureus 05/25/22 14:35 Fluid - Synovial (joint) Anaerobic Culture - Final No anaerobic bacteria isolated. 05/26/22 21:25 Blood Culture (Wb) - Anticubital Right Blood Culture - Final Meth. resistant Staph. aureus 05/27/22 10:25 Blood Culture (Wb) - Central Line Blood Culture - Final Meth. resistant Staph. aureus 05/25/22 19:46 Blood Culture (Wb) - Anticubital Right Blood Culture - Final Meth. resistant Staph. aureus 05/25/22 10:00 Blood Culture (Wb) - Right Hand Blood Culture - Final Meth. resistant Staph. aureus 05/24/22 19:25 Sputum, Expectorated/Coughed Gram Stain - Final 05/24/22 19:25 Sputum, Expectorated/Coughed Respiratory Culture - Final Meth. resistant Staph. aureus 05/23/22 19:10 Blood Culture (Wb) - Anticubital Right Bacteria Detection (PCR) - Final Staphylococcus aureus mecA Resistance Marker 05/23/22 19:10 Blood Culture (Wb) - Anticubital Right Blood Culture - Final Meth. resistant Staph. aureus 05/23/22 18:16 Blood Culture (Wb) - Right Forearm Blood Culture - Final Meth. resistant Staph. aureus 05/23/22 22:40 Mucosa - Nasopharyngeal Respiratory Panel (PCR) - Final Rhythm Strip Rhythm Strip: Junctional Rate: 63 Physical Exam Narrative Alert awake oriented x 3 no obvious distress no pallor no icterus no JVD s1s2 no murmurs lungs clear abdomen soft no organomegaly no edema no cyanosis Const alert, oriented x3, no apparent distress and average body habitus Orientation / Consciousness: oriented to person and oriented to place HEENT normocephalic Neck no lymphadenopathy Resp no use of accessory muscles and clear to auscultation bilaterally Cardio regular rate GI non-tender Auscultation: normoactive bowel sounds Assessment & Plan Assessment/Plan (1) ESRD (end stage renal disease): PLAN: On hemodialysis Tuesday, Tuesday, Tuesday schedule. Hemodialysis later today. Left arm edema, the same side as fistula. Recently had a fistulogram. Also had an infiltrate few days ago. No signs of infection. Elevate left arm as tolerated. Oozing from AV fistula site today. Will attempt hemodialysis through fistula. If he continues to have bleeding, we may need to go to a catheter. Hyponatremia. Moderate. Better MRSA bacteremia. Blood cultures are still positive. Waiting for cultures to turn negative. Antibiotics changed on Tuesday. (2) MRSA bacteremia:
[2022-06-04] MEDS: Psyllium 1 PACKET PO (15:14)
[2022-06-04 18:40] LABS: Bedside Glucose 180 mg/dL (74-106)
--- NOTE | 2022-06-04 20:21 | DIALYSIS ---
Hemodialysis complete with 3700ml fluid removed. Pt tolerated treatment without difficulty.
[2022-06-04] MEDS: Latanoprost 0.005% 1 Bottle 1 DRP OPHTHALMIC (22:26)
[2022-06-04] MEDS: Atorvastatin Calcium 40 MG Tablet PO (22:27)
[2022-06-04] MEDS: 0.9% Saline Lock 10 ML Syringe IV (22:27)
[2022-06-04] MEDS: MELATONIN 3 MG TABLET PO (22:28)
[2022-06-04] MEDS: Acetaminophen 325 MG Tablet 650 MG PO (22:28)
[2022-06-04 23:01] LABS: Bedside Glucose 162 mg/dL (74-106)
[2022-06-05] VITALS (12 sets, daily range): BP systolic 72–96; BP diastolic 24–50; PULSE 67–94; RESP 18–20; TEMP 36.2–36.9; O2SAT 92–100
[2022-06-05] MEDS: Midodrine HCl 5 MG Tablet 10 MG PO ×3 (05:18→21:39)
[2022-06-05] MEDS: 0.9% Saline Lock 10 ML Syringe IV ×3 (05:22→21:37)
[2022-06-05 07:01] LABS: Bedside Glucose 135 mg/dL (74-106)
[2022-06-05] MEDS: Budesonide Respules 0.5 MG/2 ML AMPUL.NEB. INHALATION ×2 (07:18→19:03)
[2022-06-05] MEDS: SEVELAMER CARBONATE 800 MG TABLET PO ×3 (08:14→17:23)
[2022-06-05] MEDS: Aspirin E.C. 81 MG Tablet PO (08:16)
[2022-06-05] MEDS: Menthol/Lanolin/Calamine/Znox 113 GM Tube 1 APPLIC TOPICAL ×2 (08:16→21:37)
[2022-06-05] MEDS: Tamsulosin HCl 0.4 MG Capsule PO (08:17)
[2022-06-05] MEDS: Polyethylene Glycol 3350 17 GM PACKET PO (08:17)
[2022-06-05] MEDS: Multivitamins,Therapeutic Tablet 1 TABLET PO (08:18)
[2022-06-05] MEDS: APIXABAN 2.5 MG TABLET (WCH) PO ×2 (10:15→21:38)
[2022-06-05] MEDS: Amiodarone 200 MG Tablet PO (10:15)
--- NOTE | 2022-06-05 10:18 | NURSING ---
Spoke to Dr Mera informed bp 80/42, ok to give amiodarone and resume the eliquis.
[2022-06-05 12:36] LABS: Bedside Glucose 138 mg/dL (74-106)
[2022-06-05] MEDS: Psyllium 1 PACKET PO (14:05)
[2022-06-05] MEDS: Insulin Lispro 100 UNIT/ML INSULN.PEN SC (15:47)
[2022-06-05 16:45] LABS: Bedside Glucose 163 mg/dL (74-106)
--- NOTE | 2022-06-05 17:49 | PCM.PN.HOSP ---
Reason for Visit Reason for Visit: Diagnoses Methicillin resistant Staphylococcus aureus infection as the cause of diseases classified elsewhere (05/23/22) Essential (primary) hypertension (05/23/22) Non-ST elevation (NSTEMI) myocardial infarction (05/23/22) Ischemic cardiomyopathy (05/23/22) Longstanding persistent atrial fibrillation (05/23/22) Peripheral vascular disease, unspecified (05/23/22) Pneumonia, unspecified organism (05/23/22) Non-pressure chronic ulcer of other part of left foot with fat layer exposed (05/23/22) Chronic kidney disease, stage 4 (severe) (05/23/22) End stage renal disease (05/23/22) Bacteremia (05/23/22) Infection and inflammatory reaction due to internal right knee prosthesis, initial encounter (05/23/22) Presence of coronary angioplasty implant and graft (05/23/22) Subjective Subjective Patient was seen and examined today, his blood culture from 06/04/2022 was positive for gram-positive cocci, he remains on antibiotics at this time. Objective Data Objective Data Vital Signs: Vital Signs Temp Pulse Resp BP Pulse Ox O2 Del Method O2 Flow Rate 97.6 F L 94 18 88/42 L 99 Room Air 2 06/05/22 15:44 06/05/22 15:44 06/05/22 15:44 06/05/22 15:44 06/05/22 15:44 06/05/22 15:44 06/05/22 15:40 FiO2 40 05/26/22 19:15 Oxygen Flow Rate (L/min) 2 Oxygen Delivery Method Room Air Weight: 105.2 kg Body Mass Index (BMI) 32.6 Intake & Output: Intake and Output for Last 24 Hours 06/03/22 06/04/22 06/05/22 23:59 23:59 23:59 Intake Total 320.0001 / 320.0001 1093.3334 / 1093.3334 386.0001 / 386.0001 Output Total 0 / 0 7400 / 7400 0 / 0 Balance 320.0001 / 320.0001 -6306.6666 / -6306.6666 386.0001 / 386.0001 Lab / Micro Data Result Diagrams: 06/03/22 06:14 06/03/22 06:14 Labs: Laboratory Results - last 24 hr 06/04/22 17:11: POC Glucose 180 H 06/04/22 21:58: POC Glucose 162 H 06/05/22 06:35: POC Glucose 135 H 06/05/22 12:09: POC Glucose 138 H 06/05/22 15:36: POC Glucose 163 H Micro: Microbiology 06/03/22 09:50 Blood Culture (Wb) - Anticubital Right Blood Culture - Preliminary Staphylococcus aureus 06/04/22 06:00 Blood Culture (Wb) - Right Forearm Blood Culture - Preliminary 05/31/22 11:53 Blood Culture (Wb) - Anticubital Right Blood Culture - Final Staphylococcus aureus 05/31/22 11:45 Blood Culture (Wb) - Anticubital Right Blood Culture - Final Staphylococcus aureus 06/02/22 12:48 Blood Culture (Wb) - Dialysis/Fistula Blood Culture - Preliminary Staphylococcus aureus 06/01/22 06:47 Blood Culture (Wb) - Right Wrist Blood Culture - Preliminary Staphylococcus aureus 05/29/22 11:00 Blood Culture (Wb) - Venous Blood Culture - Final Meth. resistant Staph. aureus 05/26/22 Unknown Tissue - Femoral Membrane Gram Stain - Final 05/26/22 Unknown Tissue - Femoral Membrane Wound Culture - Final Meth. resistant Staph. aureus 05/26/22 Unknown Tissue - Femoral Membrane Anaerobic Culture - Final No anaerobic bacteria isolated. 05/26/22 Unknown Tissue - Suprapatellar Pouch Gram Stain - Final 05/26/22 Unknown Tissue - Suprapatellar Pouch Wound Culture - Final Meth. resistant Staph. aureus 05/26/22 Unknown Tissue - Suprapatellar Pouch Anaerobic Culture - Final No anaerobic bacteria isolated. 05/26/22 Unknown Tissue - Tibial Membrane Gram Stain - Final 05/26/22 Unknown Tissue - Tibial Membrane Wound Culture - Final Meth. resistant Staph. aureus 05/26/22 Unknown Tissue - Tibial Membrane Anaerobic Culture - Final No anaerobic bacteria isolated. 05/25/22 14:35 Fluid - Synovial (joint) Gram Stain - Final 05/25/22 14:35 Fluid - Synovial (joint) Body Fluid Culture - Final Meth. resistant Staph. aureus 05/25/22 14:35 Fluid - Synovial (joint) Anaerobic Culture - Final No anaerobic bacteria isolated. 05/26/22 21:25 Blood Culture (Wb) - Anticubital Right Blood Culture - Final Meth. resistant Staph. aureus 05/27/22 10:25 Blood Culture (Wb) - Central Line Blood Culture - Final Meth. resistant Staph. aureus 05/25/22 19:46 Blood Culture (Wb) - Anticubital Right Blood Culture - Final Meth. resistant Staph. aureus 05/25/22 10:00 Blood Culture (Wb) - Right Hand Blood Culture - Final Meth. resistant Staph. aureus 05/24/22 19:25 Sputum, Expectorated/Coughed Gram Stain - Final 05/24/22 19:25 Sputum, Expectorated/Coughed Respiratory Culture - Final Meth. resistant Staph. aureus 05/23/22 19:10 Blood Culture (Wb) - Anticubital Right Bacteria Detection (PCR) - Final Staphylococcus aureus mecA Resistance Marker 05/23/22 19:10 Blood Culture (Wb) - Anticubital Right Blood Culture - Final Meth. resistant Staph. aureus 05/23/22 18:16 Blood Culture (Wb) - Right Forearm Blood Culture - Final Meth. resistant Staph. aureus 05/23/22 22:40 Mucosa - Nasopharyngeal Respiratory Panel (PCR) - Final Rhythm Strip Rhythm Strip: Junctional Rate: 63 Physical Exam Narrative Patient appears frail and older than his stated age Const alert, oriented x3 and no apparent distress HEENT head/scalp atraumatic and moist oral mucous membranes Eyes PERRL, EOMs intact bilaterally and conjunctivae normal Neck supple and no JVD Resp normal respiratory effort, no retractions and no use of accessory muscles Cardio regular rate, regular rhythm, S1 normal heart sound and S2 normal heart sound GI normal to inspection, nondistended, normoactive bowel sounds, soft to palpation and non-tender Neuro oriented x3, CN's II-XII intact bilaterally, moves all extremities and no focal motor deficits Sensorium / Orientation: awake, alert, oriented to person, oriented to place and oriented to time Psych affect normal Assessment & Plan Assessment/Plan (1) Infection of total right knee replacement: PLAN: Plan 1. MRSA infection of the right knee-blood cultures remain positive at this point, I will need to discuss his care with infectious diseases. I talked briefly with orthopedic surgery today by phone and they stated that the patient had a difficult time during his recent surgery because of his overall medical condition and frailty. Patient remains on IV antibiotics per infectious diseases at this time #2 type 2 diabetes-patient's blood sugars will be monitored, sliding scale insulin will be used #3 persistent MRSA bacteremia-possibly secondary to #1, I will need to talk with infectious diseases about further care when they are available #4 coronary artery disease-continue present medications #5 [id number] remains on medications at this time #6 end-stage renal disease on dialysis-patient was just dialyzed yesterday, his next dialysis day is Tuesday, I talked briefly with nephrology about his care today. Total clinical time spent by myself addressing the patient's medical problems, reviewing the medical data, and collaborating with patient's care team: 38 minutes Charges/Coding Visit Charges Inpatient E&M: 93437 Subs Hosp L2
[2022-06-05] MEDS: Lactulose 20 GM/30 ML UDC 30 GM PO (21:38)
[2022-06-05] MEDS: Atorvastatin Calcium 40 MG Tablet PO (21:39)
[2022-06-05] MEDS: Latanoprost 0.005% 1 Bottle 1 DRP OPHTHALMIC (21:39)
[2022-06-05] MEDS: MELATONIN 3 MG TABLET PO (21:49)
[2022-06-05] MEDS: Acetaminophen 325 MG Tablet 650 MG PO (21:49)
[2022-06-05 22:06] LABS: Bedside Glucose 147 mg/dL (74-106)
[2022-06-06] VITALS (7 sets, daily range): BP systolic 79–109; BP diastolic 51–56; PULSE 60–85; RESP 16–20; TEMP 36.1–36.4; O2SAT 94–97
[2022-06-06] MEDS: Midodrine HCl 5 MG Tablet 10 MG PO ×3 (06:27→22:03)
[2022-06-06 06:51] LABS: Bedside Glucose 124 mg/dL (74-106)
[2022-06-06] MEDS: Budesonide Respules 0.5 MG/2 ML AMPUL.NEB. INHALATION ×2 (07:45→19:51)
[2022-06-06] MEDS: APIXABAN 2.5 MG TABLET (WCH) PO ×2 (09:48→22:01)
[2022-06-06] MEDS: Amiodarone 200 MG Tablet PO (09:48)
[2022-06-06] MEDS: SEVELAMER CARBONATE 800 MG TABLET PO ×3 (09:48→16:53)
[2022-06-06] MEDS: Multivitamins,Therapeutic Tablet 1 TABLET PO (09:48)
[2022-06-06] MEDS: Lactulose 20 GM/30 ML UDC 30 GM PO ×2 (09:48→21:59)
[2022-06-06] MEDS: Tamsulosin HCl 0.4 MG Capsule PO (09:48)
[2022-06-06] MEDS: Aspirin E.C. 81 MG Tablet PO (09:48)
[2022-06-06] MEDS: Menthol/Lanolin/Calamine/Znox 113 GM Tube 1 APPLIC TOPICAL ×2 (09:49→21:58)
[2022-06-06] MEDS: Insulin Lispro 100 UNIT/ML INSULN.PEN SC ×3 (12:09→22:01)
--- NOTE | 2022-06-06 13:07 | PN_ITS ---
Subjective Subjective Patient is seen resting today bedside in chair. States his has not been in yet today. Patient states he feels pretty good overall and denies constitutional symptoms. Denies any further complaints today. States he is just going to watch TV. Objective Data Objective Data Vital Signs: Vital Signs Temp Pulse Resp BP Pulse Ox O2 Del Method O2 Flow Rate 97.6 F L 64 16 80/51 L 97 Nasal Cannula 2 06/06/22 11:45 06/06/22 11:45 06/06/22 11:45 06/06/22 11:45 06/06/22 11:45 06/06/22 11:45 06/06/22 11:45 FiO2 40 05/26/22 19:15 Oxygen Flow Rate (L/min) 2 Oxygen Delivery Method Nasal Cannula Weight: 104.4 kg Body Mass Index (BMI) 32.6 Intake & Output: Intake and Output for Last 24 Hours 06/04/22 06/05/22 06/06/22 23:59 23:59 23:59 Intake Total 1093.3334 / 1093.3334 506.0001 / 506.0001 653.3334 / 653.3334 Output Total 7400 / 7400 0 / 0 0 / 0 Balance -6306.6666 / -6306.6666 506.0001 / 506.0001 653.3334 / 653.3334 Lab / Micro Data Result Diagrams: 06/03/22 06:14 06/03/22 06:14 Labs: Laboratory Results - last 24 hr 06/05/22 15:36: POC Glucose 163 H 06/05/22 21:33: POC Glucose 147 H 06/06/22 06:26: POC Glucose 124 H Micro: Microbiology 06/02/22 12:48 Blood Culture (Wb) - Dialysis/Fistula Blood Culture - Final Meth. resistant Staph. aureus 06/04/22 06:00 Blood Culture (Wb) - Right Forearm Blood Culture - Preliminary Staphylococcus aureus 06/01/22 06:47 Blood Culture (Wb) - Right Wrist Blood Culture - Final Staphylococcus aureus 06/03/22 09:50 Blood Culture (Wb) - Anticubital Right Blood Culture - Preliminary Staphylococcus aureus 05/31/22 11:53 Blood Culture (Wb) - Anticubital Right Blood Culture - Final Staphylococcus aureus 05/31/22 11:45 Blood Culture (Wb) - Anticubital Right Blood Culture - Final Staphylococcus aureus 05/29/22 11:00 Blood Culture (Wb) - Venous Blood Culture - Final Meth. resistant Staph. aureus 05/26/22 Unknown Tissue - Femoral Membrane Gram Stain - Final 05/26/22 Unknown Tissue - Femoral Membrane Wound Culture - Final Meth. resistant Staph. aureus 05/26/22 Unknown Tissue - Femoral Membrane Anaerobic Culture - Final No anaerobic bacteria isolated. 05/26/22 Unknown Tissue - Suprapatellar Pouch Gram Stain - Final 05/26/22 Unknown Tissue - Suprapatellar Pouch Wound Culture - Final Meth. resistant Staph. aureus 05/26/22 Unknown Tissue - Suprapatellar Pouch Anaerobic Culture - Final No anaerobic bacteria isolated. 05/26/22 Unknown Tissue - Tibial Membrane Gram Stain - Final 05/26/22 Unknown Tissue - Tibial Membrane Wound Culture - Final Meth. resistant Staph. aureus 05/26/22 Unknown Tissue - Tibial Membrane Anaerobic Culture - Final No anaerobic bacteria isolated. 05/25/22 14:35 Fluid - Synovial (joint) Gram Stain - Final 05/25/22 14:35 Fluid - Synovial (joint) Body Fluid Culture - Final Meth. resistant Staph. aureus 05/25/22 14:35 Fluid - Synovial (joint) Anaerobic Culture - Final No anaerobic bacteria isolated. 05/26/22 21:25 Blood Culture (Wb) - Anticubital Right Blood Culture - Final Meth. resistant Staph. aureus 05/27/22 10:25 Blood Culture (Wb) - Central Line Blood Culture - Final Meth. resistant Staph. aureus 05/25/22 19:46 Blood Culture (Wb) - Anticubital Right Blood Culture - Final Meth. resistant Staph. aureus 05/25/22 10:00 Blood Culture (Wb) - Right Hand Blood Culture - Final Meth. resistant Staph. aureus 05/24/22 19:25 Sputum, Expectorated/Coughed Gram Stain - Final 05/24/22 19:25 Sputum, Expectorated/Coughed Respiratory Culture - Final Meth. resistant Staph. aureus 05/23/22 19:10 Blood Culture (Wb) - Anticubital Right Bacteria Detection (PCR) - Final Staphylococcus aureus mecA Resistance Marker 05/23/22 19:10 Blood Culture (Wb) - Anticubital Right Blood Culture - Final Meth. resistant Staph. aureus 05/23/22 18:16 Blood Culture (Wb) - Right Forearm Blood Culture - Final Meth. resistant Staph. aureus 05/23/22 22:40 Mucosa - Nasopharyngeal Respiratory Panel (PCR) - Final Rhythm Strip Rhythm Strip: Junctional Rate: 63 Physical Exam Narrative NV status unchanges stable eschar to distal tuft of the left hallux noted, no signs of infection. Const alert and oriented x3 HEENT normocephalic Eyes General Eye: normal appearance of both eyes Lymph Lymphatic: no lymphadenopathy noted and no lymphedema noted Resp normal respiratory effort Extremity no joint enlargement, no calf tenderness and no pedal edema Extremity Narrative: DP and PT pulses are weakly palpable with CFT less than 5 seconds to the digits. Skin no rashes or lesions noted, skin turgor normal and no jaundice Wound Narrative: stable eschar to distal tuft of the left hallux noted, no signs of infection. 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, no signs of infection will continue to follow for local wound care Dressing changed today consisting of Betadine and dry sterile dressing Patient can be heel weightbearing in surgical shoe on left As site appears to be stable and patient is stabilizing, will plan to follow every third day Patient will ultimately require revascularization to left foot and may subsequently require hallux amputation, at this time this will be planned once patient is medically stable and likely on an outpatient basis WBC was last at 8.4 Had undergone surgical intervention for infection of right total knee replacement by orthopedics. Cultures demonstrated MRSA. Still demonstrates positive blood cultures with Staph aureus. Currently on IV antibiotics Dapto/ceftaroline Patient is awaiting placement into rehabilitation facility. Please do not hesitate to call for any questions or concerns Jr. Daquan Vann.P.M. [facility] [place] [phone] Note: [employer] speech recognition machine feeder raw stock software was used to create portions of this document. Sound-alike and misspelled words, as well as other machine feeder raw stock errors may be contained in the documentation.
--- NOTE | 2022-06-06 13:11 | ECHOTEE_ITS ---
Reason For Study: MRSA positive blood cultures Medication BRANDON probe 6VT-D (SN [id number]) passed without difficulty. No complications were noted. Cetacaine Topical [place] given X3 orally. Versed 1 mg given slow IVP. Fentanyl 50 mcg given slow IVP. Performed a rapid injection of agitated mix of 9 cc saline and 1cc air to assess for atrial septal defect. Left Ventricle Normal LV size. Left ventricular systolic function is normal. The estimated ejection fraction is 55 %. No regional wall motion abnormalities noted. Right Ventricle Normal RV size. Normal systolic function. Atria Bubble contrast study negative for right to left interatrial shunt. The left atrium is moderately enlarged. No thrombus is detected in the left atrial appendage. Mitral Valve Mild diffuse mitral valve thickening. Mild (1+) eccentric mitral valve insufficiency. Tricuspid Valve Normal tricuspid valve. Aortic Valve Trisinus/trileaflet aortic valve. Mild diffuse aortic valve thickening. Trivial aortic valve insufficiency. Pulmonic Valve Normal pulmonic valve. Vessels Normal aortic root. Pericardium No pericardial effusion. ECHO/Echo Transesophageal (BRANDON) Interpretation Summary Normal LV size. Left ventricular systolic function is normal. The estimated ejection fraction is 55 %. The left atrium is moderately enlarged. No thrombus is detected in the left atrial appendage. Mild (1+) eccentric mitral valve insufficiency. No vegetation or source of embolus noted. Ordering Physician: Prasanth Ellsworth Referring Physician: Masha Treviño Performed By: Danielle Betancur, RDBELTRAN, RVT
--- NOTE | 2022-06-06 13:13 | PCM.PN.HOSP ---
Reason for Visit Reason for Visit: Diagnoses Methicillin resistant Staphylococcus aureus infection as the cause of diseases classified elsewhere (05/23/22) Essential (primary) hypertension (05/23/22) Non-ST elevation (NSTEMI) myocardial infarction (05/23/22) Ischemic cardiomyopathy (05/23/22) Longstanding persistent atrial fibrillation (05/23/22) Peripheral vascular disease, unspecified (05/23/22) Pneumonia, unspecified organism (05/23/22) Non-pressure chronic ulcer of other part of left foot with fat layer exposed (05/23/22) Chronic kidney disease, stage 4 (severe) (05/23/22) End stage renal disease (05/23/22) Bacteremia (05/23/22) Infection and inflammatory reaction due to internal right knee prosthesis, initial encounter (05/23/22) Presence of coronary angioplasty implant and graft (05/23/22) Subjective Subjective Was seen in and examined today, I talked with infectious diseases yesterday and they feel that it would be beneficial for the patient undergo a BRANDON tomorrow due to his persistently positive blood cultures, patient's blood culture on 06/04/2022 was positive for Staph aureus. I talked to the patient today concerning this and told him that I feel that we need to do this procedure, patient was okay with this, I also talked briefly with cardiology today and they were okay with that. Objective Data Objective Data Vital Signs: Vital Signs Temp Pulse Resp BP Pulse Ox O2 Del Method O2 Flow Rate 97.6 F L 64 16 80/51 L 97 Nasal Cannula 2 06/06/22 11:45 06/06/22 11:45 06/06/22 11:45 06/06/22 11:45 06/06/22 11:45 06/06/22 11:45 06/06/22 11:45 FiO2 40 05/26/22 19:15 Oxygen Flow Rate (L/min) 2 Oxygen Delivery Method Nasal Cannula Weight: 104.4 kg Body Mass Index (BMI) 32.6 Intake & Output: Intake and Output for Last 24 Hours 06/04/22 06/05/22 06/06/22 23:59 23:59 23:59 Intake Total 1093.3334 / 1093.3334 506.0001 / 506.0001 653.3334 / 653.3334 Output Total 7400 / 7400 0 / 0 0 / 0 Balance -6306.6666 / -6306.6666 506.0001 / 506.0001 653.3334 / 653.3334 Lab / Micro Data Result Diagrams: 06/03/22 06:14 06/03/22 06:14 Labs: Laboratory Results - last 24 hr 06/05/22 15:36: POC Glucose 163 H 06/05/22 21:33: POC Glucose 147 H 06/06/22 06:26: POC Glucose 124 H Micro: Microbiology 06/02/22 12:48 Blood Culture (Wb) - Dialysis/Fistula Blood Culture - Final Meth. resistant Staph. aureus 06/04/22 06:00 Blood Culture (Wb) - Right Forearm Blood Culture - Preliminary Staphylococcus aureus 06/01/22 06:47 Blood Culture (Wb) - Right Wrist Blood Culture - Final Staphylococcus aureus 06/03/22 09:50 Blood Culture (Wb) - Anticubital Right Blood Culture - Preliminary Staphylococcus aureus 05/31/22 11:53 Blood Culture (Wb) - Anticubital Right Blood Culture - Final Staphylococcus aureus 05/31/22 11:45 Blood Culture (Wb) - Anticubital Right Blood Culture - Final Staphylococcus aureus 05/29/22 11:00 Blood Culture (Wb) - Venous Blood Culture - Final Meth. resistant Staph. aureus 05/26/22 Unknown Tissue - Femoral Membrane Gram Stain - Final 05/26/22 Unknown Tissue - Femoral Membrane Wound Culture - Final Meth. resistant Staph. aureus 05/26/22 Unknown Tissue - Femoral Membrane Anaerobic Culture - Final No anaerobic bacteria isolated. 05/26/22 Unknown Tissue - Suprapatellar Pouch Gram Stain - Final 05/26/22 Unknown Tissue - Suprapatellar Pouch Wound Culture - Final Meth. resistant Staph. aureus 05/26/22 Unknown Tissue - Suprapatellar Pouch Anaerobic Culture - Final No anaerobic bacteria isolated. 05/26/22 Unknown Tissue - Tibial Membrane Gram Stain - Final 05/26/22 Unknown Tissue - Tibial Membrane Wound Culture - Final Meth. resistant Staph. aureus 05/26/22 Unknown Tissue - Tibial Membrane Anaerobic Culture - Final No anaerobic bacteria isolated. 05/25/22 14:35 Fluid - Synovial (joint) Gram Stain - Final 05/25/22 14:35 Fluid - Synovial (joint) Body Fluid Culture - Final Meth. resistant Staph. aureus 05/25/22 14:35 Fluid - Synovial (joint) Anaerobic Culture - Final No anaerobic bacteria isolated. 05/26/22 21:25 Blood Culture (Wb) - Anticubital Right Blood Culture - Final Meth. resistant Staph. aureus 05/27/22 10:25 Blood Culture (Wb) - Central Line Blood Culture - Final Meth. resistant Staph. aureus 05/25/22 19:46 Blood Culture (Wb) - Anticubital Right Blood Culture - Final Meth. resistant Staph. aureus 05/25/22 10:00 Blood Culture (Wb) - Right Hand Blood Culture - Final Meth. resistant Staph. aureus 05/24/22 19:25 Sputum, Expectorated/Coughed Gram Stain - Final 05/24/22 19:25 Sputum, Expectorated/Coughed Respiratory Culture - Final Meth. resistant Staph. aureus 05/23/22 19:10 Blood Culture (Wb) - Anticubital Right Bacteria Detection (PCR) - Final Staphylococcus aureus mecA Resistance Marker 05/23/22 19:10 Blood Culture (Wb) - Anticubital Right Blood Culture - Final Meth. resistant Staph. aureus 05/23/22 18:16 Blood Culture (Wb) - Right Forearm Blood Culture - Final Meth. resistant Staph. aureus 05/23/22 22:40 Mucosa - Nasopharyngeal Respiratory Panel (PCR) - Final Rhythm Strip Rhythm Strip: Junctional Rate: 63 Physical Exam Narrative Patient appears frail and older than his stated age Const alert, oriented x3 and no apparent distress HEENT head/scalp atraumatic and moist oral mucous membranes Eyes PERRL, EOMs intact bilaterally and conjunctivae normal Neck supple and no JVD Resp normal respiratory effort, no retractions and no use of accessory muscles Cardio regular rate, regular rhythm, S1 normal heart sound and S2 normal heart sound GI normal to inspection, nondistended, normoactive bowel sounds, soft to palpation and non-tender Neuro oriented x3, CN's II-XII intact bilaterally, moves all extremities and no focal motor deficits Sensorium / Orientation: awake, alert, oriented to person, oriented to place and oriented to time Psych affect normal Assessment & Plan Assessment/Plan (1) Infection of total right knee replacement: PLAN: Plan 1. MRSA infection of the right knee-blood cultures remain positive at this point, patient will remain on his present antibiotics per ID, he will have a BRANDON performed tomorrow #2 type 2 diabetes-patient's blood sugars will be monitored, sliding scale insulin will be used #3 persistent MRSA bacteremia-possibly secondary to #1, patient will have a BRANDON performed tomorrow #4 coronary artery disease-continue present medications #5 [id number] remains on medications at this time #6 end-stage renal disease on dialysis-patient was just dialyzed yesterday, his next dialysis day is Tuesday Total clinical time spent by myself addressing the patient's medical problems, reviewing the medical data, and collaborating with patient's care team: 36 minutes Charges/Coding Visit Charges Inpatient E&M: 57501 Subs Hosp L2
[2022-06-06 13:46] LABS: Bedside Glucose 160 mg/dL (74-106)
[2022-06-06 18:05] LABS: Bedside Glucose 155 mg/dL (74-106)
[2022-06-06] MEDS: Insulin Glargine-YFGN 100 UNIT/ML Pen SC (22:01)
[2022-06-06] MEDS: Atorvastatin Calcium 40 MG Tablet PO (22:02)
[2022-06-06] MEDS: Latanoprost 0.005% 1 Bottle 1 DRP OPHTHALMIC (22:03)
[2022-06-06 22:45] LABS: Bedside Glucose 158 mg/dL (74-106)
[2022-06-07] VITALS (16 sets, daily range): BP systolic 90–110; BP diastolic 46–79; PULSE 55–78; RESP 16–20; TEMP 35.7–36.6; O2SAT 96–98
--- NOTE | 2022-06-07 02:09 | CPS ---
Pt placed on home CPAP nasal mask with 2L O2 bled in.
[2022-06-07] MEDS: Midodrine HCl 5 MG Tablet 10 MG PO ×3 (05:52→21:56)
[2022-06-07] MEDS: Psyllium 1 PACKET PO ×3 (05:52→21:55)
[2022-06-07 06:57] LABS: ALB/GLOB Ratio 0.5 RATIO (0.9-2.4); AST(SGOT) 17 U/L (15-37); Alanine Aminotransfer ALT/SGPT 21 U/L (16-61); Alkaline Phosphatase 258 U/L (45-117); Anion Gap 12 (5-15); BUN 55 mg/dL (7-18); BUN/Creat Ratio 9.7 RATIO (10-20); CPK Total, Creatine Kinase 56 U/L (39-308); Calcium,Total 9.3 mg/dL (8.5-10.1); Chloride 91 mmol/L (98-107); Creatinine, Serum 5.69 mg/dL (0.70-1.30); EST Glomerular Filtration Rate 10 mL/min (>60); Est Glom Filt Rate - Afr Amer 12 mL/min (>60); Estimated Creatinine Clearance 10.02 ml/min; Globulin 4.4 g/dL (2.2-4.2); Glucose 113 mg/dL (74-106); Potassium 5.4 mmol/L (3.5-5.1); Protein, Total 6.4 g/dL (6.4-8.2); Sodium Level 127 mmol/L (136-145)
[2022-06-07 07:10] LABS: Bedside Glucose 124 mg/dL (74-106)
[2022-06-07] MEDS: Budesonide Respules 0.5 MG/2 ML AMPUL.NEB. INHALATION ×2 (07:21→20:09)
--- NOTE | 2022-06-07 09:05 | PCM.PN.REN ---
Subjective Subjective Resting quietly, denies any complaints. No overnight events. Objective Data Objective Data Vital Signs: Vital Signs Temp Pulse Resp BP Pulse Ox O2 Del Method O2 Flow Rate 97.8 F 63 20 H 110/71 96 Nasal Cannula 2 06/07/22 04:23 06/07/22 07:21 06/07/22 07:21 06/07/22 04:23 06/07/22 07:21 06/07/22 07:35 06/07/22 07:35 FiO2 40 05/26/22 19:15 Oxygen Flow Rate (L/min) 2 Oxygen Delivery Method Nasal Cannula Weight: 105.3 kg Body Mass Index (BMI) 32.6 Intake & Output: Intake and Output for Last 24 Hours 06/05/22 06/06/22 06/07/22 23:59 23:59 23:59 Intake Total 506.0001 / 506.0001 1356.0001 / 1356.0001 333.3334 / 333.3334 Output Total 0 / 0 0 / 0 Balance 506.0001 / 506.0001 1356.0001 / 1356.0001 333.3334 / 333.3334 Lab / Micro Data Result Diagrams: 06/03/22 06:14 06/07/22 05:51 Labs: Laboratory Results - last 24 hr 06/06/22 12:08: POC Glucose 160 H 06/06/22 16:38: POC Glucose 155 H 06/06/22 21:54: POC Glucose 158 H 06/07/22 05:51: Sodium 127 L, Potassium 5.4 H, Chloride 91 L, Carbon Dioxide 24.0, Anion Gap 12, BUN 55 H, Creatinine 5.69 H, Estim Creat Clear Calc 10.02, Est GFR (MDRD) Af Amer 12 L, Est GFR (MDRD) Non-Af 10 L, BUN/Creatinine Ratio 9.7 L, Glucose 113 H, Calcium 9.3, Total Bilirubin 0.40, AST 17, ALT 21, Alkaline Phosphatase 258 H, Total Creatine Kinase 56, Total Protein 6.4, Albumin 2.0 L, Globulin 4.4 H, Albumin/Globulin Ratio 0.5 L 06/07/22 06:43: POC Glucose 124 H Micro: Microbiology 06/07/22 06:47 Nasal Secretion SARS-CoV-2 Antigen (Rapid) - Final 06/05/22 09:15 Blood Culture (Wb) - Right Forearm Blood Culture - Preliminary 06/02/22 12:48 Blood Culture (Wb) - Dialysis/Fistula Blood Culture - Final Meth. resistant Staph. aureus 06/04/22 06:00 Blood Culture (Wb) - Right Forearm Blood Culture - Preliminary Staphylococcus aureus 06/01/22 06:47 Blood Culture (Wb) - Right Wrist Blood Culture - Final Staphylococcus aureus 06/03/22 09:50 Blood Culture (Wb) - Anticubital Right Blood Culture - Preliminary Staphylococcus aureus 05/31/22 11:53 Blood Culture (Wb) - Anticubital Right Blood Culture - Final Staphylococcus aureus 05/31/22 11:45 Blood Culture (Wb) - Anticubital Right Blood Culture - Final Staphylococcus aureus 05/29/22 11:00 Blood Culture (Wb) - Venous Blood Culture - Final Meth. resistant Staph. aureus 05/26/22 Unknown Tissue - Femoral Membrane Gram Stain - Final 05/26/22 Unknown Tissue - Femoral Membrane Wound Culture - Final Meth. resistant Staph. aureus 05/26/22 Unknown Tissue - Femoral Membrane Anaerobic Culture - Final No anaerobic bacteria isolated. 05/26/22 Unknown Tissue - Suprapatellar Pouch Gram Stain - Final 05/26/22 Unknown Tissue - Suprapatellar Pouch Wound Culture - Final Meth. resistant Staph. aureus 05/26/22 Unknown Tissue - Suprapatellar Pouch Anaerobic Culture - Final No anaerobic bacteria isolated. 05/26/22 Unknown Tissue - Tibial Membrane Gram Stain - Final 05/26/22 Unknown Tissue - Tibial Membrane Wound Culture - Final Meth. resistant Staph. aureus 05/26/22 Unknown Tissue - Tibial Membrane Anaerobic Culture - Final No anaerobic bacteria isolated. 05/25/22 14:35 Fluid - Synovial (joint) Gram Stain - Final 05/25/22 14:35 Fluid - Synovial (joint) Body Fluid Culture - Final Meth. resistant Staph. aureus 05/25/22 14:35 Fluid - Synovial (joint) Anaerobic Culture - Final No anaerobic bacteria isolated. 05/26/22 21:25 Blood Culture (Wb) - Anticubital Right Blood Culture - Final Meth. resistant Staph. aureus 05/27/22 10:25 Blood Culture (Wb) - Central Line Blood Culture - Final Meth. resistant Staph. aureus 05/25/22 19:46 Blood Culture (Wb) - Anticubital Right Blood Culture - Final Meth. resistant Staph. aureus 05/25/22 10:00 Blood Culture (Wb) - Right Hand Blood Culture - Final Meth. resistant Staph. aureus 05/24/22 19:25 Sputum, Expectorated/Coughed Gram Stain - Final 05/24/22 19:25 Sputum, Expectorated/Coughed Respiratory Culture - Final Meth. resistant Staph. aureus 05/23/22 19:10 Blood Culture (Wb) - Anticubital Right Bacteria Detection (PCR) - Final Staphylococcus aureus mecA Resistance Marker 05/23/22 19:10 Blood Culture (Wb) - Anticubital Right Blood Culture - Final Meth. resistant Staph. aureus 05/23/22 18:16 Blood Culture (Wb) - Right Forearm Blood Culture - Final Meth. resistant Staph. aureus 05/23/22 22:40 Mucosa - Nasopharyngeal Respiratory Panel (PCR) - Final Rhythm Strip Rhythm Strip: Junctional Rate: 63 Physical Exam Narrative Alert and oriented x3, no apparent distress S1, S2 RRR Lungs sounds clear anteriorly. No wheezes rhonchi rales noted Abdomen soft, round, nontender Trace edema noted to bilateral lower legs Left upper arm AV fistula positive thrill and bruit. Edema noted to left arm Assessment & Plan Assessment/Plan (1) ESRD (end stage renal disease): PLAN: On hemodialysis Tuesday, Tuesday, Tuesday schedule. Hemodialysis today 2K bath, will attempt fluid removal with HD today as patient/blood pressure tolerates Left arm edema, the same side as fistula. Recently had a fistulogram. Also had an infiltrate last week. No signs of infection. Elevate left arm as tolerated. Will attempt hemodialysis through fistula. If he continues to have bleeding, we may need to go to a catheter. Hyponatremia. Moderate. Should improve with fluid removal with dialysis MRSA bacteremia; possible source right knee?? Blood cultures are still positive from 06/04. Repeated blood cultures 06/05 and 06/06 and are pending. Antibiotics per ID, daptomycin and Ceftaroline fosamil. BRANDON no vegetation. Stable dry gangrene left hallux with no signs of infection, followed by podiatry (Patient will ultimately require revascularization to left foot and may subsequently require hallux amputation, and will be planned once patient is medically stable and likely on an outpatient basis). To undergo BRANDON again today. Chronic hypotension on midodrine 10 mg 3 times daily D/w Dr. Ellsworth (2) MRSA bacteremia:
--- NOTE | 2022-06-07 10:29 | CASEMGMT ---
Updates sent to [facility] via [employer]. Plan: d/c to [facility] when medically ready. Emerald Nuñez MSW [employer]
[2022-06-07] MEDS: Menthol/Lanolin/Calamine/Znox 113 GM Tube 1 APPLIC TOPICAL ×2 (11:31→21:40)
[2022-06-07 11:50] LABS: Bedside Glucose 105 mg/dL (74-106)
--- NOTE | 2022-06-07 12:50 | PCM.PN.ID ---
Physical Exam Narrative Sleeping this AM s/p BRANDON, no fever, at bedside Const no apparent distress Resp normal air movement and clear to auscultation bilaterally Cardio regular rate and regular rhythm GI soft to palpation, non-tender and non-distended Skin no rashes or lesions noted ID ID: Route of nutrition/ use of supplements: [] Nutritional Intake: [] IV Site: [] Melendez Catheter: [] Assessment & Plan Assessment/Plan (1) ESRD (end stage renal disease): (2) Pneumonia: (3) MRSA bacteremia: PLAN: Unclear source, could be from fistula procedure, gangrene of L hallux, or pneumonia. - TTE showed no veg, EF 30% - repeat bcx today to monitor for clearance - sputum cx with MRSA - complicated by R knee PJI - OR 05/26/[address] Alfaro. - no osteo/discitis seen on noncontrast t-spine mri. - bcx showing some vanc JUNIOR creep upwards. 05/31/22 changed to dapto/ceftaroline. Spoke with micro lab, dapto was susc, sending out for ceftaroline testing. - bcx now neg at 24+h. Repeat TTE 06/02/22 with no veg seen. BRANDON this AM. If he cont to be (+), would check tagged wbc scan. will follow, d/w Dr. Ellsworth (4) Infection of total right knee replacement:
--- NOTE | 2022-06-07 14:46 | WOUNDNOTE ---
wound photo: left great toe
[2022-06-07 17:20] LABS: Bedside Glucose 121 mg/dL (74-106)
[2022-06-07] MEDS: Multivitamins,Therapeutic Tablet 1 TABLET PO (18:33)
[2022-06-07] MEDS: Aspirin E.C. 81 MG Tablet PO (18:33)
[2022-06-07] MEDS: Tamsulosin HCl 0.4 MG Capsule PO (18:34)
[2022-06-07] MEDS: Amiodarone 200 MG Tablet PO (18:34)
[2022-06-07] MEDS: SEVELAMER CARBONATE 800 MG TABLET PO (18:34)
--- NOTE | 2022-06-07 18:40 | PCM.PN.HOSP ---
Reason for Visit Reason for Visit: Diagnoses Methicillin resistant Staphylococcus aureus infection as the cause of diseases classified elsewhere (05/23/22) Essential (primary) hypertension (05/23/22) Non-ST elevation (NSTEMI) myocardial infarction (05/23/22) Ischemic cardiomyopathy (05/23/22) Longstanding persistent atrial fibrillation (05/23/22) Peripheral vascular disease, unspecified (05/23/22) Pneumonia, unspecified organism (05/23/22) Non-pressure chronic ulcer of other part of left foot with fat layer exposed (05/23/22) Chronic kidney disease, stage 4 (severe) (05/23/22) End stage renal disease (05/23/22) Bacteremia (05/23/22) Infection and inflammatory reaction due to internal right knee prosthesis, initial encounter (05/23/22) Presence of coronary angioplasty implant and graft (05/23/22) Subjective Subjective Patient was seen and examined today, had a long conversation with his , his BRANDON today did not show any evidence of vegetation, we do not have a preliminary blood culture result from yesterday at the time of this dictation. I talked with infectious diseases about his care and I also talked with Dr. Alfaro. Patient's expressed the intent to have the patient go to another facility if he needed surgical intervention on his right knee. I told her that we did not know if that was necessary at the present time due to the fact we do not have yesterday's blood culture results. Infectious diseases also told me today that they are considering ordering a white blood cell scan but they want to wait until the cultures from yesterday result. Objective Data Objective Data Vital Signs: Vital Signs Temp Pulse Resp BP Pulse Ox O2 Del Method O2 Flow Rate 96.2 F L 69 16 104/65 98 Nasal Cannula 2 06/07/22 15:55 06/07/22 15:55 06/07/22 15:55 06/07/22 15:55 06/07/22 15:00 06/07/22 15:55 06/07/22 15:00 FiO2 40 05/26/22 19:15 Oxygen Flow Rate (L/min) 2 Oxygen Delivery Method Nasal Cannula Weight: 105.3 kg Body Mass Index (BMI) 32.6 Intake & Output: Intake and Output for Last 24 Hours 06/05/22 06/06/22 06/07/22 23:59 23:59 23:59 Intake Total 506.0001 / 506.0001 1356.0001 / 1356.0001 680.0001 / 680.0001 Output Total 0 / 0 0 / 0 4000 / 4000 Balance 506.0001 / 506.0001 1356.0001 / 1356.0001 -3319.9999 / -3319.9999 Lab / Micro Data Result Diagrams: 06/03/22 06:14 06/07/22 05:51 Labs: Laboratory Results - last 24 hr 06/06/22 21:54: POC Glucose 158 H 06/07/22 05:51: Sodium 127 L, Potassium 5.4 H, Chloride 91 L, Carbon Dioxide 24.0, Anion Gap 12, BUN 55 H, Creatinine 5.69 H, Estim Creat Clear Calc 10.02, Est GFR (MDRD) Af Amer 12 L, Est GFR (MDRD) Non-Af 10 L, BUN/Creatinine Ratio 9.7 L, Glucose 113 H, Calcium 9.3, Total Bilirubin 0.40, AST 17, ALT 21, Alkaline Phosphatase 258 H, Total Creatine Kinase 56, Total Protein 6.4, Albumin 2.0 L, Globulin 4.4 H, Albumin/Globulin Ratio 0.5 L 06/07/22 06:43: POC Glucose 124 H 06/07/22 11:30: POC Glucose 105 06/07/22 17:02: POC Glucose 121 H Micro: Microbiology 06/05/22 09:15 Blood Culture (Wb) - Right Forearm Blood Culture - Final Staphylococcus aureus 06/03/22 09:50 Blood Culture (Wb) - Anticubital Right Blood Culture - Final Staphylococcus aureus 06/04/22 06:00 Blood Culture (Wb) - Right Forearm Blood Culture - Final Staphylococcus aureus 06/07/22 06:47 Nasal Secretion SARS-CoV-2 Antigen (Rapid) - Final 06/02/22 12:48 Blood Culture (Wb) - Dialysis/Fistula Blood Culture - Final Meth. resistant Staph. aureus 06/01/22 06:47 Blood Culture (Wb) - Right Wrist Blood Culture - Final Staphylococcus aureus 05/31/22 11:53 Blood Culture (Wb) - Anticubital Right Blood Culture - Final Staphylococcus aureus 05/31/22 11:45 Blood Culture (Wb) - Anticubital Right Blood Culture - Final Staphylococcus aureus 05/29/22 11:00 Blood Culture (Wb) - Venous Blood Culture - Final Meth. resistant Staph. aureus 05/26/22 Unknown Tissue - Femoral Membrane Gram Stain - Final 05/26/22 Unknown Tissue - Femoral Membrane Wound Culture - Final Meth. resistant Staph. aureus 05/26/22 Unknown Tissue - Femoral Membrane Anaerobic Culture - Final No anaerobic bacteria isolated. 05/26/22 Unknown Tissue - Suprapatellar Pouch Gram Stain - Final 05/26/22 Unknown Tissue - Suprapatellar Pouch Wound Culture - Final Meth. resistant Staph. aureus 05/26/22 Unknown Tissue - Suprapatellar Pouch Anaerobic Culture - Final No anaerobic bacteria isolated. 05/26/22 Unknown Tissue - Tibial Membrane Gram Stain - Final 05/26/22 Unknown Tissue - Tibial Membrane Wound Culture - Final Meth. resistant Staph. aureus 05/26/22 Unknown Tissue - Tibial Membrane Anaerobic Culture - Final No anaerobic bacteria isolated. 05/25/22 14:35 Fluid - Synovial (joint) Gram Stain - Final 05/25/22 14:35 Fluid - Synovial (joint) Body Fluid Culture - Final Meth. resistant Staph. aureus 05/25/22 14:35 Fluid - Synovial (joint) Anaerobic Culture - Final No anaerobic bacteria isolated. 05/26/22 21:25 Blood Culture (Wb) - Anticubital Right Blood Culture - Final Meth. resistant Staph. aureus 05/27/22 10:25 Blood Culture (Wb) - Central Line Blood Culture - Final Meth. resistant Staph. aureus 05/25/22 19:46 Blood Culture (Wb) - Anticubital Right Blood Culture - Final Meth. resistant Staph. aureus 05/25/22 10:00 Blood Culture (Wb) - Right Hand Blood Culture - Final Meth. resistant Staph. aureus 05/24/22 19:25 Sputum, Expectorated/Coughed Gram Stain - Final 05/24/22 19:25 Sputum, Expectorated/Coughed Respiratory Culture - Final Meth. resistant Staph. aureus 05/23/22 19:10 Blood Culture (Wb) - Anticubital Right Bacteria Detection (PCR) - Final Staphylococcus aureus mecA Resistance Marker 05/23/22 19:10 Blood Culture (Wb) - Anticubital Right Blood Culture - Final Meth. resistant Staph. aureus 05/23/22 18:16 Blood Culture (Wb) - Right Forearm Blood Culture - Final Meth. resistant Staph. aureus 05/23/22 22:40 Mucosa - Nasopharyngeal Respiratory Panel (PCR) - Final Radiography Diagnostic Testing: Radiology Impression Transesophageal Echocardiogram 06/06/22 13:11 Interpretation Summary Normal LV size. Left ventricular systolic function is normal. The estimated ejection fraction is 55 %. The left atrium is moderately enlarged. No thrombus is detected in the left atrial appendage. Mild (1+) eccentric mitral valve insufficiency. No vegetation or source of embolus noted. Ordering Physician: Prasanth Ellsworth Referring Physician: Masha Treviño Performed By: Danielle Betancur, DAYDAY, RVT Rhythm Strip Rhythm Strip: Junctional Rate: 63 Physical Exam Narrative Patient appears frail and older than his stated age Const alert, oriented x3 and no apparent distress HEENT head/scalp atraumatic and moist oral mucous membranes Eyes PERRL, EOMs intact bilaterally and conjunctivae normal Neck supple and no JVD Resp normal respiratory effort, no retractions and no use of accessory muscles Cardio regular rate, regular rhythm, S1 normal heart sound and S2 normal heart sound GI normal to inspection, nondistended, normoactive bowel sounds, soft to palpation and non-tender Neuro oriented x3, CN's II-XII intact bilaterally, moves all extremities and no focal motor deficits Sensorium / Orientation: awake, alert, oriented to person, oriented to place and oriented to time Psych affect normal Assessment & Plan Assessment/Plan (1) MRSA bacteremia: (2) Infection of total right knee replacement: PLAN: Plan 1. MRSA infection of the right knee-blood cultures remain positive at this point from 06/05/2022, again the blood cultures from yesterday have not resulted yet, patient will remain on his present antibiotics per ID #2 type 2 diabetes-patient's blood sugars will be monitored, sliding scale insulin will be used #3 persistent MRSA bacteremia-possibly secondary to #1, continue present antibiotic #4 coronary artery disease-continue present medications #5 [id number] remains on medications at this time #6 end-stage renal disease on dialysis-patient was dialyzed today Total clinical time spent by myself addressing the patient's medical problems, reviewing the medical data, and collaborating with patient's care team: 37 minutes Charges/Coding Visit Charges Inpatient E&M: 23467 Subs Hosp L2
--- NOTE | 2022-06-07 19:19 | DIALYSIS ---
Hemodialysis complete with 4 liters fluid removed. Stasis obtained after needles removed. Pt tolerated treatment without difficulty.
[2022-06-07] MEDS: APIXABAN 2.5 MG TABLET (WCH) PO (21:42)
[2022-06-07] MEDS: Lactulose 20 GM/30 ML UDC 30 GM PO (21:43)
[2022-06-07] MEDS: Insulin Glargine-YFGN 100 UNIT/ML Pen SC (21:52)
[2022-06-07] MEDS: Insulin Lispro 100 UNIT/ML INSULN.PEN SC (21:52)
[2022-06-07] MEDS: Latanoprost 0.005% 1 Bottle 1 DRP OPHTHALMIC (21:55)
[2022-06-07] MEDS: Atorvastatin Calcium 40 MG Tablet PO (21:56)
[2022-06-07 22:05] LABS: Bedside Glucose 168 mg/dL (74-106)
[2022-06-08] VITALS (15 sets, daily range): BP systolic 76–94; BP diastolic 37–62; PULSE 48–80; RESP 16–18; TEMP 36.4–36.7; O2SAT 93–100
[2022-06-08] MEDS: Midodrine HCl 5 MG Tablet 10 MG PO (05:14)
[2022-06-08] MEDS: Psyllium 1 PACKET PO ×3 (05:15→21:45)
[2022-06-08 06:45] LABS: Bedside Glucose 95 mg/dL (74-106)
[2022-06-08] MEDS: Budesonide Respules 0.5 MG/2 ML AMPUL.NEB. INHALATION ×2 (07:14→19:28)
[2022-06-08] MEDS: Lactulose 20 GM/30 ML UDC 30 GM PO ×2 (08:37→21:56)
[2022-06-08] MEDS: Multivitamins,Therapeutic Tablet 1 TABLET PO (08:38)
[2022-06-08] MEDS: Menthol/Lanolin/Calamine/Znox 113 GM Tube 1 APPLIC TOPICAL ×2 (08:39→21:43)
[2022-06-08] MEDS: Amiodarone 200 MG Tablet PO (08:39)
[2022-06-08] MEDS: APIXABAN 2.5 MG TABLET (WCH) PO ×2 (08:40→21:57)
[2022-06-08] MEDS: Aspirin E.C. 81 MG Tablet PO (08:40)
[2022-06-08] MEDS: SEVELAMER CARBONATE 800 MG TABLET PO ×2 (09:23→12:14)
--- NOTE | 2022-06-08 09:44 | CASEMGMT ---
CORTNEY received a voice mail from patient's that she spoke with Alesha at [facility] and Alesha said she has not received any updated therapy notes. CORTNEY sent updates 06-03. CORTNEY then sent updates 06-07 with therapy notes from 06-06. CORTNEY was not aware [facility] needed daily therapy notes. CORTNEY sent therapy notes from 06-04,06-05, and 06-07 (06-06's were sent yesterday). CORTNEY also sent physician notes from 06-07. CORTNEY then called patient's and left her a voice mail letting her know this information. Plan: [facility] pending patient being medically ready. Emerald Nuñez EGG PACKERMaria A REECE
[2022-06-08] MEDS: Tamsulosin HCl 0.4 MG Capsule PO (10:06)
--- NOTE | 2022-06-08 10:50 | PCM.PN.REN ---
Subjective Subjective Working with therapy. No overnight events. and daughter at bedside. Objective Data Objective Data Vital Signs: Vital Signs Temp Pulse Resp BP Pulse Ox O2 Del Method O2 Flow Rate 97.7 F L 59 L 16 91/54 L 97 Nasal Cannula 2 06/08/22 07:36 06/08/22 07:36 06/08/22 07:36 06/08/22 07:36 06/08/22 07:36 06/08/22 07:44 06/08/22 07:44 FiO2 40 05/26/22 19:15 Oxygen Flow Rate (L/min) 2 Oxygen Delivery Method Nasal Cannula Weight: 105.6 kg Body Mass Index (BMI) 32.6 Intake & Output: Intake and Output for Last 24 Hours 06/06/22 06/07/22 06/08/22 23:59 23:59 23:59 Intake Total 1356.0001 / 1356.0001 680.0001 / 680.0001 913.3334 / 913.3334 Output Total 0 / 0 8000 / 20005 4000 / 4000 Balance 1356.0001 / 1356.0001 -7319.9999 / -17881.9999 -3086.6666 / -3086.6666 Lab / Micro Data Result Diagrams: 06/03/22 06:14 06/07/22 05:51 Labs: Laboratory Results - last 24 hr 06/07/22 11:30: POC Glucose 105 06/07/22 17:02: POC Glucose 121 H 06/07/22 21:38: POC Glucose 168 H 06/08/22 06:21: POC Glucose 95 Micro: Microbiology 06/06/22 09:24 Blood Culture (Wb) - Right Forearm Blood Culture - Preliminary 06/05/22 09:15 Blood Culture (Wb) - Right Forearm Blood Culture - Final Staphylococcus aureus 06/03/22 09:50 Blood Culture (Wb) - Anticubital Right Blood Culture - Final Staphylococcus aureus 06/04/22 06:00 Blood Culture (Wb) - Right Forearm Blood Culture - Final Staphylococcus aureus 06/07/22 06:47 Nasal Secretion SARS-CoV-2 Antigen (Rapid) - Final 06/02/22 12:48 Blood Culture (Wb) - Dialysis/Fistula Blood Culture - Final Meth. resistant Staph. aureus 06/01/22 06:47 Blood Culture (Wb) - Right Wrist Blood Culture - Final Staphylococcus aureus 05/31/22 11:53 Blood Culture (Wb) - Anticubital Right Blood Culture - Final Staphylococcus aureus 05/31/22 11:45 Blood Culture (Wb) - Anticubital Right Blood Culture - Final Staphylococcus aureus 05/29/22 11:00 Blood Culture (Wb) - Venous Blood Culture - Final Meth. resistant Staph. aureus 05/26/22 Unknown Tissue - Femoral Membrane Gram Stain - Final 05/26/22 Unknown Tissue - Femoral Membrane Wound Culture - Final Meth. resistant Staph. aureus 05/26/22 Unknown Tissue - Femoral Membrane Anaerobic Culture - Final No anaerobic bacteria isolated. 05/26/22 Unknown Tissue - Suprapatellar Pouch Gram Stain - Final 05/26/22 Unknown Tissue - Suprapatellar Pouch Wound Culture - Final Meth. resistant Staph. aureus 05/26/22 Unknown Tissue - Suprapatellar Pouch Anaerobic Culture - Final No anaerobic bacteria isolated. 05/26/22 Unknown Tissue - Tibial Membrane Gram Stain - Final 05/26/22 Unknown Tissue - Tibial Membrane Wound Culture - Final Meth. resistant Staph. aureus 05/26/22 Unknown Tissue - Tibial Membrane Anaerobic Culture - Final No anaerobic bacteria isolated. 05/25/22 14:35 Fluid - Synovial (joint) Gram Stain - Final 05/25/22 14:35 Fluid - Synovial (joint) Body Fluid Culture - Final Meth. resistant Staph. aureus 05/25/22 14:35 Fluid - Synovial (joint) Anaerobic Culture - Final No anaerobic bacteria isolated. 05/26/22 21:25 Blood Culture (Wb) - Anticubital Right Blood Culture - Final Meth. resistant Staph. aureus 05/27/22 10:25 Blood Culture (Wb) - Central Line Blood Culture - Final Meth. resistant Staph. aureus 05/25/22 19:46 Blood Culture (Wb) - Anticubital Right Blood Culture - Final Meth. resistant Staph. aureus 05/25/22 10:00 Blood Culture (Wb) - Right Hand Blood Culture - Final Meth. resistant Staph. aureus 05/24/22 19:25 Sputum, Expectorated/Coughed Gram Stain - Final 05/24/22 19:25 Sputum, Expectorated/Coughed Respiratory Culture - Final Meth. resistant Staph. aureus 05/23/22 19:10 Blood Culture (Wb) - Anticubital Right Bacteria Detection (PCR) - Final Staphylococcus aureus mecA Resistance Marker 05/23/22 19:10 Blood Culture (Wb) - Anticubital Right Blood Culture - Final Meth. resistant Staph. aureus 05/23/22 18:16 Blood Culture (Wb) - Right Forearm Blood Culture - Final Meth. resistant Staph. aureus 05/23/22 22:40 Mucosa - Nasopharyngeal Respiratory Panel (PCR) - Final Radiography Diagnostic Testing: Radiology Impression Transesophageal Echocardiogram 06/06/22 13:11 Interpretation Summary Normal LV size. Left ventricular systolic function is normal. The estimated ejection fraction is 55 %. The left atrium is moderately enlarged. No thrombus is detected in the left atrial appendage. Mild (1+) eccentric mitral valve insufficiency. No vegetation or source of embolus noted. Ordering Physician: Prasanth Ellsworth Referring Physician: Masha Treviño Performed By: Danielle Betancur, DAYDAY, RVT Rhythm Strip Rhythm Strip: Junctional Rate: 63 Physical Exam Narrative Alert and oriented x3, no apparent distress S1, S2 RRR Lungs sounds clear anteriorly. No wheezes rhonchi rales noted Abdomen soft, round, nontender Trace edema noted to bilateral lower legs Left upper arm AV fistula positive thrill and bruit. Edema noted to left arm Assessment & Plan Assessment/Plan (1) ESRD (end stage renal disease): PLAN: On hemodialysis Tuesday, Tuesday, Tuesday schedule. Hemodialysis tomorrow 2K bath, will attempt fluid removal with HD as patient/blood pressure tolerates. Patient tolerated dialysis yesterday with 4 L fluid removal. No issues with cannulating left arm, no issues with blood flow rate during dialysis. Outpatient dry weight ~91kg Left arm edema, the same side as fistula. Recently had a fistulogram. Also had an infiltrate last week. No signs of infection. Elevate left arm as tolerated; reviewed this with patient, his and daughter. Hyponatremia. Moderate. Should improve with fluid removal with dialysis MRSA bacteremia; possible source right knee?? Blood cultures are still positive from 06/04 and 06/05. Repeated blood cultures 06/06 and 06/07 are pending. Antibiotics per ID, daptomycin and Ceftaroline fosamil. BRANDON 06/07 no vegetation or source of embolus noted. Stable dry gangrene left hallux with no signs of infection, followed by podiatry (Patient will ultimately require revascularization to left foot and may subsequently require hallux amputation, and will be planned once patient is medically stable and likely on an outpatient basis). Chronic hypotension, increase midodrine 20 mg 3 times daily abdominal distention with history of requiring paracentesis in past. patient had bm yesterday and today. on lactulose D/w Dr. Ellsworth and discharge planning team (2) MRSA bacteremia:
[2022-06-08] MEDS: Midodrine HCl 5 MG Tablet 20 MG PO (12:14)
--- NOTE | 2022-06-08 12:21 | NM_ITS ---
CLINICAL: 82-year-old male with history of persistent bacteremia of unknown origin. WHOLE BODY 99m Tc HMPAO LABELED LEUKOCYTE EXAMINATION COMPARISON: None available FINDINGS: Following the intravenous administration of 20.6 mCi of 99m Tc HMPAO labeled leukocytes, whole body image acquisitions obtained at approximately 2 hours post radiopharmaceutical administration reveal: 1. There is increased radiopharmaceutical concentration defined in the left upper pelvic mesentery with the intensity of uptake superior to that of the normal hepatic parenchyma. 2. Physiologic tracer uptake is noted in the hepatic and splenic parenchyma, the visualized intestinal tract, the pulmonary blood pool diffusely, the appendicular and axial skeletal structures. Mild increased uptake is noted in the lateral femoral component of the right knee arthroplasty. NM/Inflammatory Process WB IMPRESSION: 1. The increase in radiopharmaceutical visualized in the left upper pelvic mesentery may represent a localized infectious process. Correlation with CT of the abdomen and pelvis with oral and intravenous contrast is recommended. 2. Facilitated uptake noted in the lateral femoral component of the right knee prosthesis may be further investigated with Tc sulfur colloid imaging if low-grade prosthetic sepsis is suspected. Electronically Signed: Rajesh Luevano, at 13:51 EST ,
--- NOTE | 2022-06-08 12:21 | PCM.PN.ID ---
Physical Exam Narrative Feeling about the same, no fever, knee slowly improving Const alert and no apparent distress Resp normal air movement and clear to auscultation bilaterally Cardio regular rate and regular rhythm GI soft to palpation, non-tender and non-distended Extremity General Extremity: Negative for edema Skin no rashes or lesions noted ID ID: Route of nutrition/ use of supplements: [] Nutritional Intake: [] IV Site: [] Melendez Catheter: [] Assessment & Plan Assessment/Plan (1) ESRD (end stage renal disease): (2) Pneumonia: (3) MRSA bacteremia: PLAN: Unclear source, could be from fistula procedure, gangrene of L hallux, or pneumonia. - TTE showed no veg, EF 30% - repeat bcx today to monitor for clearance - sputum cx with MRSA - complicated by R knee PJI - OR 05/26/[address] Alfaro. - no osteo/discitis seen on noncontrast t-spine mri. - bcx showing some vanc JUNIOR creep upwards. 05/31/22 changed to dapto/ceftaroline. Spoke with micro lab, dapto was susc, sending out for ceftaroline testing. - BRANDON 06/07 neg. He cont to be (+), will check tagged wbc scan. will follow (4) Infection of total right knee replacement:
[2022-06-08 12:30] LABS: Bedside Glucose 142 mg/dL (74-106)
[2022-06-08] MEDS: Acetaminophen 325 MG Tablet 650 MG PO ×2 (14:13→21:56)
--- NOTE | 2022-06-08 15:35 | CASEMGMT ---
Patient has a Healthcare Power of Hvac R Tech and a Healthcare Living Will. Patient is aware they are not on file at [facility]. Emerald REECE
[2022-06-08 17:40] LABS: Bedside Glucose 108 mg/dL (74-106)
--- NOTE | 2022-06-08 18:27 | PCM.PN.HOSP ---
Reason for Visit Reason for Visit: Diagnoses Methicillin resistant Staphylococcus aureus infection as the cause of diseases classified elsewhere (05/23/22) Essential (primary) hypertension (05/23/22) Non-ST elevation (NSTEMI) myocardial infarction (05/23/22) Ischemic cardiomyopathy (05/23/22) Longstanding persistent atrial fibrillation (05/23/22) Peripheral vascular disease, unspecified (05/23/22) Pneumonia, unspecified organism (05/23/22) Non-pressure chronic ulcer of other part of left foot with fat layer exposed (05/23/22) Chronic kidney disease, stage 4 (severe) (05/23/22) End stage renal disease (05/23/22) Bacteremia (05/23/22) Infection and inflammatory reaction due to internal right knee prosthesis, initial encounter (05/23/22) Presence of coronary angioplasty implant and graft (05/23/22) Subjective Subjective Patient was seen and examined today, I had a long conversation with the patient's and daughters who are in the room at the time of my examination. Patient's blood culture on 06/06/2022 was positive for Staph aureus, it appears that infectious diseases has written for a white blood cell scan on the patient. Patient's blood culture performed on 06/07/2022 shows preliminary gram-positive cocci. I talked briefly with orthopedic surgery about his care, Dr. Alfaro wanted me to discuss with infectious diseases whether the patient would need to undergo surgery again on his right knee. Again family had requested that the patient be transferred if any other needs surgery had to be performed. I talked to the concerning possibly transferring the patient to [facility] in [place] due to the fact that [facility]. Patient's and children seem to be okay with this, I have to discuss this further with the patient-he did not give me an exact answer concerning this. Objective Data Objective Data Vital Signs: Vital Signs Temp Pulse Resp BP Pulse Ox O2 Del Method O2 Flow Rate 97.9 F 56 L 18 94/62 96 Nasal Cannula 2 06/08/22 16:45 06/08/22 16:45 06/08/22 16:45 06/08/22 16:45 06/08/22 16:45 06/08/22 16:45 06/08/22 16:45 FiO2 40 05/26/22 19:15 Oxygen Flow Rate (L/min) 2 Oxygen Delivery Method Nasal Cannula Weight: 105.6 kg Body Mass Index (BMI) 32.6 Intake & Output: Intake and Output for Last 24 Hours 06/06/22 06/07/22 06/08/22 23:59 23:59 23:59 Intake Total 1356.0001 / 1356.0001 680.0001 / 680.0001 1086.0001 / 1086.0001 Output Total 0 / 0 8000 / 76381 4000 / 4000 Balance 1356.0001 / 1356.0001 -7319.9999 / -13910.9999 -2913.9999 / -2913.9999 Lab / Micro Data Result Diagrams: 06/03/22 06:14 06/07/22 05:51 Labs: Laboratory Results - last 24 hr 06/07/22 21:38: POC Glucose 168 H 06/08/22 06:21: POC Glucose 95 06/08/22 12:07: POC Glucose 142 H 06/08/22 16:54: POC Glucose 108 H Micro: Microbiology 06/07/22 11:52 Blood Culture (Wb) - Anticubital Right Blood Culture - Preliminary 06/06/22 09:24 Blood Culture (Wb) - Right Forearm Blood Culture - Preliminary Staphylococcus aureus 06/05/22 09:15 Blood Culture (Wb) - Right Forearm Blood Culture - Final Staphylococcus aureus 06/03/22 09:50 Blood Culture (Wb) - Anticubital Right Blood Culture - Final Staphylococcus aureus 06/04/22 06:00 Blood Culture (Wb) - Right Forearm Blood Culture - Final Staphylococcus aureus 06/07/22 06:47 Nasal Secretion SARS-CoV-2 Antigen (Rapid) - Final 06/02/22 12:48 Blood Culture (Wb) - Dialysis/Fistula Blood Culture - Final Meth. resistant Staph. aureus 06/01/22 06:47 Blood Culture (Wb) - Right Wrist Blood Culture - Final Staphylococcus aureus 05/31/22 11:53 Blood Culture (Wb) - Anticubital Right Blood Culture - Final Staphylococcus aureus 05/31/22 11:45 Blood Culture (Wb) - Anticubital Right Blood Culture - Final Staphylococcus aureus 05/29/22 11:00 Blood Culture (Wb) - Venous Blood Culture - Final Meth. resistant Staph. aureus 05/26/22 Unknown Tissue - Femoral Membrane Gram Stain - Final 05/26/22 Unknown Tissue - Femoral Membrane Wound Culture - Final Meth. resistant Staph. aureus 05/26/22 Unknown Tissue - Femoral Membrane Anaerobic Culture - Final No anaerobic bacteria isolated. 05/26/22 Unknown Tissue - Suprapatellar Pouch Gram Stain - Final 05/26/22 Unknown Tissue - Suprapatellar Pouch Wound Culture - Final Meth. resistant Staph. aureus 05/26/22 Unknown Tissue - Suprapatellar Pouch Anaerobic Culture - Final No anaerobic bacteria isolated. 05/26/22 Unknown Tissue - Tibial Membrane Gram Stain - Final 05/26/22 Unknown Tissue - Tibial Membrane Wound Culture - Final Meth. resistant Staph. aureus 05/26/22 Unknown Tissue - Tibial Membrane Anaerobic Culture - Final No anaerobic bacteria isolated. 05/25/22 14:35 Fluid - Synovial (joint) Gram Stain - Final 05/25/22 14:35 Fluid - Synovial (joint) Body Fluid Culture - Final Meth. resistant Staph. aureus 05/25/22 14:35 Fluid - Synovial (joint) Anaerobic Culture - Final No anaerobic bacteria isolated. 05/26/22 21:25 Blood Culture (Wb) - Anticubital Right Blood Culture - Final Meth. resistant Staph. aureus 05/27/22 10:25 Blood Culture (Wb) - Central Line Blood Culture - Final Meth. resistant Staph. aureus 05/25/22 19:46 Blood Culture (Wb) - Anticubital Right Blood Culture - Final Meth. resistant Staph. aureus 05/25/22 10:00 Blood Culture (Wb) - Right Hand Blood Culture - Final Meth. resistant Staph. aureus 05/24/22 19:25 Sputum, Expectorated/Coughed Gram Stain - Final 05/24/22 19:25 Sputum, Expectorated/Coughed Respiratory Culture - Final Meth. resistant Staph. aureus 05/23/22 19:10 Blood Culture (Wb) - Anticubital Right Bacteria Detection (PCR) - Final Staphylococcus aureus mecA Resistance Marker 05/23/22 19:10 Blood Culture (Wb) - Anticubital Right Blood Culture - Final Meth. resistant Staph. aureus 05/23/22 18:16 Blood Culture (Wb) - Right Forearm Blood Culture - Final Meth. resistant Staph. aureus 05/23/22 22:40 Mucosa - Nasopharyngeal Respiratory Panel (PCR) - Final Rhythm Strip Rhythm Strip: Junctional Rate: 63 Physical Exam Narrative Patient appears frail and older than his stated age Const alert, oriented x3 and no apparent distress HEENT head/scalp atraumatic and moist oral mucous membranes Eyes PERRL, EOMs intact bilaterally and conjunctivae normal Neck supple and no JVD Resp normal respiratory effort, no retractions and no use of accessory muscles Cardio regular rate, regular rhythm, S1 normal heart sound and S2 normal heart sound GI normal to inspection, nondistended, normoactive bowel sounds, soft to palpation and non-tender Neuro oriented x3, CN's II-XII intact bilaterally, moves all extremities and no focal motor deficits Sensorium / Orientation: awake, alert, oriented to person, oriented to place and oriented to time Psych affect normal Assessment & Plan Assessment/Plan (1) MRSA bacteremia: (2) Infection of total right knee replacement: PLAN: Plan 1. MRSA infection of the right knee-blood cultures remain positive at this point from 06/06/22 and 06/07/2022, patient will undergo a white blood cell tag scan tomorrow #2 type 2 diabetes-patient's blood sugars will be monitored, sliding scale insulin will be used #3 persistent MRSA bacteremia-possibly secondary to #1, continue present antibiotic #4 coronary artery disease-continue present medications #5 [id number] remains on medications at this time #6 end-stage renal disease on dialysis-patient was dialyzed today Total clinical time spent by myself addressing the patient's medical problems, reviewing the medical data, and collaborating with patient's care team: 36 minutes Charges/Coding Visit Charges Inpatient E&M: 87648 Subs Hosp L2
[2022-06-08] MEDS: 0.9% Saline Lock 10 ML Syringe IV (21:41)
[2022-06-08] MEDS: Insulin Glargine-YFGN 100 UNIT/ML Pen SC (21:42)
[2022-06-08] MEDS: Latanoprost 0.005% 1 Bottle 1 DRP OPHTHALMIC (21:44)
[2022-06-08] MEDS: MELATONIN 3 MG TABLET PO (21:56)
[2022-06-08] MEDS: Atorvastatin Calcium 40 MG Tablet PO (21:57)
[2022-06-08 23:36] LABS: Bedside Glucose 140 mg/dL (74-106)
[2022-06-09] VITALS (10 sets, daily range): BP systolic 72–94; BP diastolic 37–65; PULSE 61–79; RESP 15–19; TEMP 36.3–36.6; O2SAT 97–100
[2022-06-09] MEDS: Psyllium 1 PACKET PO ×3 (05:32→21:53)
[2022-06-09 07:01] LABS: Bedside Glucose 105 mg/dL (74-106)
[2022-06-09] MEDS: Budesonide Respules 0.5 MG/2 ML AMPUL.NEB. INHALATION ×2 (07:08→19:40)
[2022-06-09] MEDS: Midodrine HCl 5 MG Tablet 20 MG PO ×3 (08:06→16:18)
--- NOTE | 2022-06-09 10:16 | CASEMGMT ---
SW sent updates to [facility]. Updates included all physician documents from Tuesday-, PT and OT from -, and current inpatient med list. Emerald REECE
--- NOTE | 2022-06-09 11:02 | PCM.PN.REN ---
Subjective Subjective Resting quietly, seen on HD, no acute issues. No overnight events Objective Data Objective Data Vital Signs: Vital Signs Temp Pulse Resp BP Pulse Ox O2 Del Method O2 Flow Rate 97.4 F L 67 18 90/51 L 100 Nasal Cannula 2 06/09/22 10:00 06/09/22 10:00 06/09/22 10:00 06/09/22 10:00 06/09/22 10:00 06/09/22 10:00 06/09/22 10:00 FiO2 40 05/26/22 19:15 Oxygen Flow Rate (L/min) 2 Oxygen Delivery Method Nasal Cannula Weight: 105.7 kg Body Mass Index (BMI) 32.6 Intake & Output: Intake and Output for Last 24 Hours 06/07/22 06/08/22 06/09/22 23:59 23:59 23:59 Intake Total 680.0001 / 680.0001 1332.6668 / 1332.6668 106.6667 / 106.6667 Output Total 8000 / 48160 4000 / 4000 0 / 0 Balance -7319.9999 / -37228.9999 -2667.3332 / -2667.3332 106.6667 / 106.6667 Lab / Micro Data Result Diagrams: 06/03/22 06:14 06/07/22 05:51 Labs: Laboratory Results - last 24 hr 06/08/22 12:07: POC Glucose 142 H 06/08/22 16:54: POC Glucose 108 H 06/08/22 21:38: POC Glucose 140 H 06/09/22 06:40: POC Glucose 105 Micro: Microbiology 06/07/22 11:52 Blood Culture (Wb) - Anticubital Right Blood Culture - Final Staphylococcus aureus 06/06/22 09:24 Blood Culture (Wb) - Right Forearm Blood Culture - Final Meth. resistant Staph. aureus 06/05/22 09:15 Blood Culture (Wb) - Right Forearm Blood Culture - Final Staphylococcus aureus 06/03/22 09:50 Blood Culture (Wb) - Anticubital Right Blood Culture - Final Staphylococcus aureus 06/04/22 06:00 Blood Culture (Wb) - Right Forearm Blood Culture - Final Staphylococcus aureus 06/07/22 06:47 Nasal Secretion SARS-CoV-2 Antigen (Rapid) - Final 06/02/22 12:48 Blood Culture (Wb) - Dialysis/Fistula Blood Culture - Final Meth. resistant Staph. aureus 06/01/22 06:47 Blood Culture (Wb) - Right Wrist Blood Culture - Final Staphylococcus aureus 05/31/22 11:53 Blood Culture (Wb) - Anticubital Right Blood Culture - Final Staphylococcus aureus 05/31/22 11:45 Blood Culture (Wb) - Anticubital Right Blood Culture - Final Staphylococcus aureus 05/29/22 11:00 Blood Culture (Wb) - Venous Blood Culture - Final Meth. resistant Staph. aureus 05/26/22 Unknown Tissue - Femoral Membrane Gram Stain - Final 05/26/22 Unknown Tissue - Femoral Membrane Wound Culture - Final Meth. resistant Staph. aureus 05/26/22 Unknown Tissue - Femoral Membrane Anaerobic Culture - Final No anaerobic bacteria isolated. 05/26/22 Unknown Tissue - Suprapatellar Pouch Gram Stain - Final 05/26/22 Unknown Tissue - Suprapatellar Pouch Wound Culture - Final Meth. resistant Staph. aureus 05/26/22 Unknown Tissue - Suprapatellar Pouch Anaerobic Culture - Final No anaerobic bacteria isolated. 05/26/22 Unknown Tissue - Tibial Membrane Gram Stain - Final 05/26/22 Unknown Tissue - Tibial Membrane Wound Culture - Final Meth. resistant Staph. aureus 05/26/22 Unknown Tissue - Tibial Membrane Anaerobic Culture - Final No anaerobic bacteria isolated. 05/25/22 14:35 Fluid - Synovial (joint) Gram Stain - Final 05/25/22 14:35 Fluid - Synovial (joint) Body Fluid Culture - Final Meth. resistant Staph. aureus 05/25/22 14:35 Fluid - Synovial (joint) Anaerobic Culture - Final No anaerobic bacteria isolated. 05/26/22 21:25 Blood Culture (Wb) - Anticubital Right Blood Culture - Final Meth. resistant Staph. aureus 05/27/22 10:25 Blood Culture (Wb) - Central Line Blood Culture - Final Meth. resistant Staph. aureus 05/25/22 19:46 Blood Culture (Wb) - Anticubital Right Blood Culture - Final Meth. resistant Staph. aureus 05/25/22 10:00 Blood Culture (Wb) - Right Hand Blood Culture - Final Meth. resistant Staph. aureus 05/24/22 19:25 Sputum, Expectorated/Coughed Gram Stain - Final 05/24/22 19:25 Sputum, Expectorated/Coughed Respiratory Culture - Final Meth. resistant Staph. aureus 05/23/22 19:10 Blood Culture (Wb) - Anticubital Right Bacteria Detection (PCR) - Final Staphylococcus aureus mecA Resistance Marker 05/23/22 19:10 Blood Culture (Wb) - Anticubital Right Blood Culture - Final Meth. resistant Staph. aureus 05/23/22 18:16 Blood Culture (Wb) - Right Forearm Blood Culture - Final Meth. resistant Staph. aureus 05/23/22 22:40 Mucosa - Nasopharyngeal Respiratory Panel (PCR) - Final Rhythm Strip Rhythm Strip: Junctional Rate: 63 Physical Exam Narrative Alert and oriented x3, no apparent distress S1, S2 RRR Lungs sounds clear anteriorly. No wheezes rhonchi rales noted Abdomen soft, round, nontender Trace edema noted to bilateral lower legs Left upper arm AV fistula positive thrill and bruit. Edema noted to left arm Assessment & Plan Assessment/Plan (1) ESRD (end stage renal disease): PLAN: On hemodialysis Tuesday, Tuesday, Tuesday schedule. Hemodialysis today 2K bath, will attempt ~4L fluid removal with HD as patient/blood pressure tolerates. No issues with cannulating left arm, no issues with blood flow rate during dialysis. Outpatient dry weight ~91kg Left arm edema, the same side as fistula. Recently had a fistulogram. Also had an infiltrate last week. No signs of infection. Elevate left arm as tolerated; reviewed this with patient, his and daughter. Hyponatremia. Moderate. Should improve with fluid removal with dialysis persistent MRSA bacteremia; possible source right knee?? To have tagged WBC scan today. Blood cultures are still positive from 06/04, 06/05 and 06/07. Repeated blood cultures 06/08 are pending. Antibiotics per ID, daptomycin and Ceftaroline fosamil. BRANDON 06/07 no vegetation or source of embolus noted. Stable dry gangrene left hallux with no signs of infection, followed by podiatry (Patient will ultimately require revascularization to left foot and may subsequently require hallux amputation, and will be planned once patient is medically stable and likely on an outpatient basis). Chronic hypotension, continue midodrine 20 mg 3 times daily D/w Dr. Ellsworth and discharge planning team (2) MRSA bacteremia:
[2022-06-09 12:11] LABS: Bedside Glucose 88 mg/dL (74-106)
--- NOTE | 2022-06-09 12:18 | DIALYSIS ---
HD tx completed x 3.5 hours. No complications, pt tolerated well. Fluid removed 4000ml. Vitals stable post tx. Verbal report given to SAGE Staley
[2022-06-09] MEDS: Tamsulosin HCl 0.4 MG Capsule PO (12:37)
[2022-06-09] MEDS: Multivitamins,Therapeutic Tablet 1 TABLET PO (12:37)
[2022-06-09] MEDS: APIXABAN 2.5 MG TABLET (WCH) PO ×2 (12:37→21:52)
[2022-06-09] MEDS: Aspirin E.C. 81 MG Tablet PO (12:37)
[2022-06-09] MEDS: Amiodarone 200 MG Tablet PO (12:37)
[2022-06-09] MEDS: Lactulose 20 GM/30 ML UDC 30 GM PO ×2 (14:05→21:52)
[2022-06-09] MEDS: Epoetin Alfa epbx 10,000 UNITS/ML 20000 UNIT IV (14:05)
[2022-06-09] MEDS: SEVELAMER CARBONATE 800 MG TABLET PO ×2 (14:08→16:18)
[2022-06-09] MEDS: Nepro Liquid 120 ML LIQUID PO (14:54)
[2022-06-09] MEDS: Insulin Lispro 100 UNIT/ML INSULN.PEN SC (16:18)
[2022-06-09 16:41] LABS: Bedside Glucose 161 mg/dL (74-106)
--- NOTE | 2022-06-09 16:43 | CT_ITS ---
We are attempting to reach an attending provider to discuss findings. An addendum with communication details will be sent when the communication is complete. STUDY: CT ABDOMEN AND PELVIS WITH CONTRAST REASON FOR EXAM: Male, 82 years old. WBC nuclear medicine scan showed possible pelvic abscess. Chronic kidney disease, diabetic. RADIATION DOSAGE (If Supplied By Facility): CTDIvol = ( 21.71 ) mGy, DLP = ( 1512.20 ) mGycm TECHNIQUE: Transaxial images were obtained from the dome of the diaphragm to the symphysis pubis with oral contrast. 100mL Isovue-300 was administered. Sagittal and coronal images were reconstructed. Individualized dose optimization techniques were used for this CT. COMPARISON: Nuclear medicine white blood cell scan, earlier the same day. FINDINGS: There is lower lung airspace consolidation. There are small pleural effusions. There is cardiac enlargement. There are coronary artery calcifications and stents. 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 There are multiple gallstones. Normal spleen. Normal pancreas. There is symmetric enlargement of the adrenal glands suggesting adrenal hyperplasia. There is moderate atrophy of the right kidney. There is 1.8 cm cyst at the upper pole. There is stable 3.9 cm solid enhancing mass at the posterior aspect of the lower pole. There is moderate atrophy of the left kidney. There are cysts and parapelvic cysts measuring up to 3.5 cm. Normal visualized stomach. There is postoperative change involving small bowel loops in the midabdomen. There is 2.1 x 2.0 cm air and fluid region adjacent to small bowel loops with possible abscess/contained perforation, corresponding to the abnormality on nuclear medicine scan, series 2 image 101/158.. There is abundant stool of the colon. There is no pneumatosis of the ascending and transverse colon. The appendix is visualized and appears normal. There is diffuse atherosclerotic calcification of the abdominal aorta, without a demonstrated aneurysm. Normal inferior vena cava. Normal retroperitoneum. Normal urinary bladder. There is moderate free fluid in the lower abdomen. Normal abdominal wall. Degenerative change of the spine. There is spondylolisthesis and spondylolysis at L5-S1 with bilateral pars interarticularis defects. There is degenerative change of the hips. CT/Abdomen/Pelvis WITH Contrast IMPRESSION: Small extraluminal air and fluid collection adjacent to small bowel loops, corresponding to the abnormal white blood cell scan consistent with abscess/contained perforation. Pneumatosis coli. Multiple gallstones. No biliary dilatation. Stable solid mass of the right kidney. Atrophy of the kidneys. 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 Electronically Signed: Roderick Stallworth MD at 21:42 EST ,
--- NOTE | 2022-06-09 16:50 | PCM.PN.ORT ---
Subjective Subjective Patient doing well. Sitting up in bed. No acute events. Continues to have MRSA positive bacteremia cultures. Reports minimal knee pain. No return of effusion. Continues to be without significant sepsis. Objective Data Objective Data Vital Signs: Vital Signs Temp Pulse Resp BP Pulse Ox O2 Del Method O2 Flow Rate 97.4 F L 64 18 72/37 L 99 Nasal Cannula 2 06/09/22 15:45 06/09/22 15:45 06/09/22 15:45 06/09/22 15:45 06/09/22 15:45 06/09/22 15:45 06/09/22 15:45 FiO2 40 05/26/22 19:15 Oxygen Flow Rate (L/min) 2 Oxygen Delivery Method Nasal Cannula Weight: 233 lb 0.458 oz Body Mass Index (BMI) 32.6 Intake & Output: Intake and Output for Last 24 Hours 06/07/22 06/08/22 06/09/22 23:59 23:59 23:59 Intake Total 680.0001 / 680.0001 1332.6668 / 1332.6668 333.3334 / 333.3334 Output Total 8000 / 00261 4000 / 4000 0 / 0 Balance -7319.9999 / -06751.9999 -2667.3332 / -2667.3332 333.3334 / 333.3334 Lab / Micro Data Result Diagrams: 06/03/22 06:14 06/07/22 05:51 Labs: Laboratory Results - last 24 hr 06/08/22 16:54: POC Glucose 108 H 06/08/22 21:38: POC Glucose 140 H 06/09/22 06:40: POC Glucose 105 06/09/22 11:49: POC Glucose 88 06/09/22 16:16: POC Glucose 161 H Micro: Microbiology 05/27/22 10:25 Blood Culture (Wb) - Central Line Blood Culture - Final Meth. resistant Staph. aureus 06/06/22 09:24 Blood Culture (Wb) - Right Forearm Blood Culture - Final Meth. resistant Staph. aureus 05/29/22 11:00 Blood Culture (Wb) - Venous Blood Culture - Final Meth. resistant Staph. aureus 05/26/22 Unknown Tissue - Tibial Membrane Gram Stain - Final 05/26/22 Unknown Tissue - Tibial Membrane Wound Culture - Final Meth. resistant Staph. aureus 05/26/22 Unknown Tissue - Tibial Membrane Anaerobic Culture - Final No anaerobic bacteria isolated. 05/26/22 Unknown Tissue - Femoral Membrane Gram Stain - Final 05/26/22 Unknown Tissue - Femoral Membrane Wound Culture - Final Meth. resistant Staph. aureus 05/26/22 Unknown Tissue - Femoral Membrane Anaerobic Culture - Final No anaerobic bacteria isolated. 05/26/22 Unknown Tissue - Suprapatellar Pouch Gram Stain - Final 05/26/22 Unknown Tissue - Suprapatellar Pouch Wound Culture - Final Meth. resistant Staph. aureus 05/26/22 Unknown Tissue - Suprapatellar Pouch Anaerobic Culture - Final No anaerobic bacteria isolated. 05/26/22 21:25 Blood Culture (Wb) - Anticubital Right Blood Culture - Final Meth. resistant Staph. aureus 05/25/22 19:46 Blood Culture (Wb) - Anticubital Right Blood Culture - Final Meth. resistant Staph. aureus 05/25/22 14:35 Fluid - Synovial (joint) Gram Stain - Final 05/25/22 14:35 Fluid - Synovial (joint) Body Fluid Culture - Final Meth. resistant Staph. aureus 05/25/22 14:35 Fluid - Synovial (joint) Anaerobic Culture - Final No anaerobic bacteria isolated. 05/25/22 10:00 Blood Culture (Wb) - Right Hand Blood Culture - Final Meth. resistant Staph. aureus 05/24/22 19:25 Sputum, Expectorated/Coughed Gram Stain - Final 05/24/22 19:25 Sputum, Expectorated/Coughed Respiratory Culture - Final Meth. resistant Staph. aureus 05/23/22 18:16 Blood Culture (Wb) - Right Forearm Blood Culture - Final Meth. resistant Staph. aureus 06/07/22 11:52 Blood Culture (Wb) - Anticubital Right Blood Culture - Final Staphylococcus aureus 06/05/22 09:15 Blood Culture (Wb) - Right Forearm Blood Culture - Final Staphylococcus aureus 06/03/22 09:50 Blood Culture (Wb) - Anticubital Right Blood Culture - Final Staphylococcus aureus 06/04/22 06:00 Blood Culture (Wb) - Right Forearm Blood Culture - Final Staphylococcus aureus 06/07/22 06:47 Nasal Secretion SARS-CoV-2 Antigen (Rapid) - Final 06/02/22 12:48 Blood Culture (Wb) - Dialysis/Fistula Blood Culture - Final Meth. resistant Staph. aureus 06/01/22 06:47 Blood Culture (Wb) - Right Wrist Blood Culture - Final Staphylococcus aureus 05/31/22 11:53 Blood Culture (Wb) - Anticubital Right Blood Culture - Final Staphylococcus aureus 05/31/22 11:45 Blood Culture (Wb) - Anticubital Right Blood Culture - Final Staphylococcus aureus 05/23/22 19:10 Blood Culture (Wb) - Anticubital Right Bacteria Detection (PCR) - Final Staphylococcus aureus mecA Resistance Marker 05/23/22 19:10 Blood Culture (Wb) - Anticubital Right Blood Culture - Final Meth. resistant Staph. aureus 05/23/22 22:40 Mucosa - Nasopharyngeal Respiratory Panel (PCR) - Final Radiography Diagnostic Testing: Radiology Impression WBC Scan Nuclear Medicine 06/08/22 12:21 IMPRESSION: 1. The increase in radiopharmaceutical visualized in the left upper pelvic mesentery may represent a localized infectious process. Correlation with CT of the abdomen and pelvis with oral and intravenous contrast is recommended. 2. Facilitated uptake noted in the lateral femoral component of the right knee prosthesis may be further investigated with Tc sulfur colloid imaging if low-grade prosthetic sepsis is suspected. Electronically Signed: Rajesh Luevano, at 13:51 EST , Rhythm Strip Rhythm Strip: Junctional Rate: 63 Physical Exam Const alert and oriented x3 General Appearance: cooperative Extremity Extremity Narrative: Right lower extremity: Dressing was removed. Incision is clean dry and intact. No erythema. Minimal effusion. No pain with short arc range of motion. Assessment & Plan Assessment/Plan (1) Infection of total right knee replacement: PLAN: 1. S/P irrigation debridement right knee with polyethylene exchange POD #14 2. Continue Pain Medications: Recommend Tylenol primarily for pain control. Currently patient is not having any pain in his right knee. 3. DVT Prophylaxis: Patient has resumed his Eliquis 4. PT/OT: Recommend advancing physical therapy as medically appropriate. 5. H & H: Acute on chronic anemia. 6. Continue postoperative medical management per medicine 7. Continue antibiotics per infectious disease: Currently on daptomycin. Per infectious disease testing for other sensitivities. I was able to discuss the case with infectious disease on the phone today. I did express my concerns for further surgery at this site of care. I also was able to talk with the medical team who has discussed further surgery with the family and at this time would prefer to transfer to tertiary care center should further surgical intervention needed performed. He did have a tagged white blood cell scan today which did show an area intra-abdominal he which may be nidus for infection. He also has continued activity in the right knee. Ultimately, I do feel his right knee infection could be suppressed and would recommend chronic suppressive antibiotics as opposed to further surgical intervention if at all possible. 8. Encouraged Incentive Spirometry 9. Disposition: We will continue to follow his chart peripherally. Please call with any questions or concerns and keep lines of communication open. [facility] Office: This dictation was created using voice recognition software. Phonetic and/or grammatical errors may exist.
[2022-06-09] MEDS: Acetaminophen 325 MG Tablet 650 MG PO ×2 (17:12→21:52)
--- NOTE | 2022-06-09 18:49 | PCM.PN.HOSP ---
Reason for Visit Reason for Visit: Diagnoses Methicillin resistant Staphylococcus aureus infection as the cause of diseases classified elsewhere (05/23/22) Essential (primary) hypertension (05/23/22) Non-ST elevation (NSTEMI) myocardial infarction (05/23/22) Ischemic cardiomyopathy (05/23/22) Longstanding persistent atrial fibrillation (05/23/22) Peripheral vascular disease, unspecified (05/23/22) Pneumonia, unspecified organism (05/23/22) Non-pressure chronic ulcer of other part of left foot with fat layer exposed (05/23/22) Chronic kidney disease, stage 4 (severe) (05/23/22) End stage renal disease (05/23/22) Bacteremia (05/23/22) Infection and inflammatory reaction due to internal right knee prosthesis, initial encounter (05/23/22) Presence of coronary angioplasty implant and graft (05/23/22) Subjective Subjective Patient was seen and examined today, his tagged white blood cell scan showed evidence of a possible pelvic abscess I have ordered a CT of the abdomen with oral and IV contrast, patient underwent dialysis today. Patient's blood culture from 06/07/2022 grew out Staph aureus Objective Data Objective Data Vital Signs: Vital Signs Temp Pulse Resp BP Pulse Ox O2 Del Method O2 Flow Rate 97.4 F L 64 18 72/37 L 99 Nasal Cannula 2 06/09/22 15:45 06/09/22 15:45 06/09/22 15:45 06/09/22 15:45 06/09/22 15:45 06/09/22 15:45 06/09/22 15:45 FiO2 40 05/26/22 19:15 Oxygen Flow Rate (L/min) 2 Oxygen Delivery Method Nasal Cannula Weight: 105.7 kg Body Mass Index (BMI) 32.6 Intake & Output: Intake and Output for Last 24 Hours 06/07/22 06/08/22 06/09/22 23:59 23:59 23:59 Intake Total 680.0001 / 680.0001 1332.6668 / 1332.6668 933.3334 / 933.3334 Output Total 8000 / 12737 4000 / 4000 0 / 0 Balance -7319.9999 / -98590.9999 -2667.3332 / -2667.3332 933.3334 / 933.3334 Lab / Micro Data Result Diagrams: 06/03/22 06:14 06/07/22 05:51 Labs: Laboratory Results - last 24 hr 06/08/22 21:38: POC Glucose 140 H 06/09/22 06:40: POC Glucose 105 06/09/22 11:49: POC Glucose 88 06/09/22 16:16: POC Glucose 161 H Micro: Microbiology 05/27/22 10:25 Blood Culture (Wb) - Central Line Blood Culture - Final Meth. resistant Staph. aureus 06/06/22 09:24 Blood Culture (Wb) - Right Forearm Blood Culture - Final Meth. resistant Staph. aureus 05/29/22 11:00 Blood Culture (Wb) - Venous Blood Culture - Final Meth. resistant Staph. aureus 05/26/22 Unknown Tissue - Tibial Membrane Gram Stain - Final 05/26/22 Unknown Tissue - Tibial Membrane Wound Culture - Final Meth. resistant Staph. aureus 05/26/22 Unknown Tissue - Tibial Membrane Anaerobic Culture - Final No anaerobic bacteria isolated. 05/26/22 Unknown Tissue - Femoral Membrane Gram Stain - Final 05/26/22 Unknown Tissue - Femoral Membrane Wound Culture - Final Meth. resistant Staph. aureus 05/26/22 Unknown Tissue - Femoral Membrane Anaerobic Culture - Final No anaerobic bacteria isolated. 05/26/22 Unknown Tissue - Suprapatellar Pouch Gram Stain - Final 05/26/22 Unknown Tissue - Suprapatellar Pouch Wound Culture - Final Meth. resistant Staph. aureus 05/26/22 Unknown Tissue - Suprapatellar Pouch Anaerobic Culture - Final No anaerobic bacteria isolated. 05/26/22 21:25 Blood Culture (Wb) - Anticubital Right Blood Culture - Final Meth. resistant Staph. aureus 05/25/22 19:46 Blood Culture (Wb) - Anticubital Right Blood Culture - Final Meth. resistant Staph. aureus 05/25/22 14:35 Fluid - Synovial (joint) Gram Stain - Final 05/25/22 14:35 Fluid - Synovial (joint) Body Fluid Culture - Final Meth. resistant Staph. aureus 05/25/22 14:35 Fluid - Synovial (joint) Anaerobic Culture - Final No anaerobic bacteria isolated. 05/25/22 10:00 Blood Culture (Wb) - Right Hand Blood Culture - Final Meth. resistant Staph. aureus 05/24/22 19:25 Sputum, Expectorated/Coughed Gram Stain - Final 05/24/22 19:25 Sputum, Expectorated/Coughed Respiratory Culture - Final Meth. resistant Staph. aureus 05/23/22 18:16 Blood Culture (Wb) - Right Forearm Blood Culture - Final Meth. resistant Staph. aureus 06/07/22 11:52 Blood Culture (Wb) - Anticubital Right Blood Culture - Final Staphylococcus aureus 06/05/22 09:15 Blood Culture (Wb) - Right Forearm Blood Culture - Final Staphylococcus aureus 06/03/22 09:50 Blood Culture (Wb) - Anticubital Right Blood Culture - Final Staphylococcus aureus 06/04/22 06:00 Blood Culture (Wb) - Right Forearm Blood Culture - Final Staphylococcus aureus 06/07/22 06:47 Nasal Secretion SARS-CoV-2 Antigen (Rapid) - Final 06/02/22 12:48 Blood Culture (Wb) - Dialysis/Fistula Blood Culture - Final Meth. resistant Staph. aureus 06/01/22 06:47 Blood Culture (Wb) - Right Wrist Blood Culture - Final Staphylococcus aureus 05/31/22 11:53 Blood Culture (Wb) - Anticubital Right Blood Culture - Final Staphylococcus aureus 05/31/22 11:45 Blood Culture (Wb) - Anticubital Right Blood Culture - Final Staphylococcus aureus 05/23/22 19:10 Blood Culture (Wb) - Anticubital Right Bacteria Detection (PCR) - Final Staphylococcus aureus mecA Resistance Marker 05/23/22 19:10 Blood Culture (Wb) - Anticubital Right Blood Culture - Final Meth. resistant Staph. aureus 05/23/22 22:40 Mucosa - Nasopharyngeal Respiratory Panel (PCR) - Final Radiography Diagnostic Testing: Radiology Impression WBC Scan Nuclear Medicine 06/08/22 12:21 IMPRESSION: 1. The increase in radiopharmaceutical visualized in the left upper pelvic mesentery may represent a localized infectious process. Correlation with CT of the abdomen and pelvis with oral and intravenous contrast is recommended. 2. Facilitated uptake noted in the lateral femoral component of the right knee prosthesis may be further investigated with Tc sulfur colloid imaging if low-grade prosthetic sepsis is suspected. Electronically Signed: Rajesh Luevano, at 13:51 EST , Rhythm Strip Rhythm Strip: Junctional Rate: 63 Physical Exam Narrative Patient appears frail and older than his stated age Const alert, oriented x3 and no apparent distress HEENT head/scalp atraumatic and moist oral mucous membranes Eyes PERRL, EOMs intact bilaterally and conjunctivae normal Neck supple and no JVD Resp normal respiratory effort, no retractions and no use of accessory muscles Cardio regular rate, regular rhythm, S1 normal heart sound and S2 normal heart sound GI normal to inspection, nondistended, normoactive bowel sounds, soft to palpation and non-tender Neuro oriented x3, CN's II-XII intact bilaterally, moves all extremities and no focal motor deficits Sensorium / Orientation: awake, alert, oriented to person, oriented to place and oriented to time Psych affect normal Assessment & Plan Assessment/Plan (1) MRSA bacteremia: (2) Infection of total right knee replacement: PLAN: Plan 1. MRSA infection of the right knee-blood cultures remain positive at this point from 06/06/22 and 06/07/2022, blood culture from 06/08/2022 still pending, patient will undergo CT of the abdomen and pelvis due to his abnormal white blood cell scan today. #2 type 2 diabetes-patient's blood sugars will be monitored, sliding scale insulin will be used #3 persistent MRSA bacteremia-possibly secondary to #1, continue present antibiotic #4 coronary artery disease-continue present medications #5 [id number] remains on medications at this time #6 end-stage renal disease on dialysis-patient was dialyzed today Total clinical time spent by myself addressing the patient's medical problems, reviewing the medical data, and collaborating with patient's care team: 37 minutes Charges/Coding Visit Charges Inpatient E&M: 90511 Subs Hosp L2
[2022-06-09] MEDS: Atorvastatin Calcium 40 MG Tablet PO (21:52)
[2022-06-09] MEDS: Latanoprost 0.005% 1 Bottle 1 DRP OPHTHALMIC (21:52)
[2022-06-09] MEDS: 0.9% Saline Lock 10 ML Syringe IV (21:52)
[2022-06-09] MEDS: MELATONIN 3 MG TABLET PO (21:52)
[2022-06-09] MEDS: Menthol/Lanolin/Calamine/Znox 113 GM Tube 1 APPLIC TOPICAL (21:53)
[2022-06-09 23:16] LABS: Bedside Glucose 108 mg/dL (74-106)
[2022-06-10] VITALS (11 sets, daily range): BP systolic 69–104; BP diastolic 45–58; PULSE 54–80; RESP 16–18; TEMP 36.3–36.7; O2SAT 92–98
[2022-06-10] MEDS: Psyllium 1 PACKET PO ×3 (06:01→23:13)
[2022-06-10 07:21] LABS: Bedside Glucose 98 mg/dL (74-106)
[2022-06-10] MEDS: Budesonide Respules 0.5 MG/2 ML AMPUL.NEB. INHALATION ×2 (08:06→21:15)
--- NOTE | 2022-06-10 08:27 | PCM.PN.REN ---
Subjective Subjective Resting in bed. Denies any complaints. No overnight events. Objective Data Objective Data Vital Signs: Vital Signs Temp Pulse Resp BP Pulse Ox O2 Del Method O2 Flow Rate 98.0 F 80 18 89/56 L 97 Nasal Cannula 2 06/10/22 06:04 06/10/22 06:04 06/10/22 06:04 06/10/22 06:04 06/10/22 06:04 06/10/22 06:04 06/10/22 06:04 FiO2 40 05/26/22 19:15 Oxygen Flow Rate (L/min) 2 Oxygen Delivery Method Nasal Cannula Weight: 97.8 kg Body Mass Index (BMI) 32.6 Intake & Output: Intake and Output for Last 24 Hours 06/08/22 06/09/22 06/10/22 23:59 23:59 23:59 Intake Total 1332.6668 / 1332.6668 1040.0001 / 1040.0001 Output Total 4000 / 4000 0 / 0 0 / 0 Balance -2667.3332 / -2667.3332 1040.0001 / 1040.0001 0 / 0 Lab / Micro Data Result Diagrams: 06/03/22 06:14 06/07/22 05:51 Labs: Laboratory Results - last 24 hr 06/09/22 11:49: POC Glucose 88 06/09/22 16:16: POC Glucose 161 H 06/09/22 21:31: POC Glucose 108 H 06/10/22 06:46: POC Glucose 98 Micro: Microbiology 06/08/22 12:45 Blood Culture (Wb) - Anticubital Right Blood Culture - Preliminary No growth in 48 hours. 05/27/22 10:25 Blood Culture (Wb) - Central Line Blood Culture - Final Meth. resistant Staph. aureus 06/06/22 09:24 Blood Culture (Wb) - Right Forearm Blood Culture - Final Meth. resistant Staph. aureus 05/29/22 11:00 Blood Culture (Wb) - Venous Blood Culture - Final Meth. resistant Staph. aureus 05/26/22 Unknown Tissue - Tibial Membrane Gram Stain - Final 05/26/22 Unknown Tissue - Tibial Membrane Wound Culture - Final Meth. resistant Staph. aureus 05/26/22 Unknown Tissue - Tibial Membrane Anaerobic Culture - Final No anaerobic bacteria isolated. 05/26/22 Unknown Tissue - Femoral Membrane Gram Stain - Final 05/26/22 Unknown Tissue - Femoral Membrane Wound Culture - Final Meth. resistant Staph. aureus 05/26/22 Unknown Tissue - Femoral Membrane Anaerobic Culture - Final No anaerobic bacteria isolated. 05/26/22 Unknown Tissue - Suprapatellar Pouch Gram Stain - Final 05/26/22 Unknown Tissue - Suprapatellar Pouch Wound Culture - Final Meth. resistant Staph. aureus 05/26/22 Unknown Tissue - Suprapatellar Pouch Anaerobic Culture - Final No anaerobic bacteria isolated. 05/26/22 21:25 Blood Culture (Wb) - Anticubital Right Blood Culture - Final Meth. resistant Staph. aureus 05/25/22 19:46 Blood Culture (Wb) - Anticubital Right Blood Culture - Final Meth. resistant Staph. aureus 05/25/22 14:35 Fluid - Synovial (joint) Gram Stain - Final 05/25/22 14:35 Fluid - Synovial (joint) Body Fluid Culture - Final Meth. resistant Staph. aureus 05/25/22 14:35 Fluid - Synovial (joint) Anaerobic Culture - Final No anaerobic bacteria isolated. 05/25/22 10:00 Blood Culture (Wb) - Right Hand Blood Culture - Final Meth. resistant Staph. aureus 05/24/22 19:25 Sputum, Expectorated/Coughed Gram Stain - Final 05/24/22 19:25 Sputum, Expectorated/Coughed Respiratory Culture - Final Meth. resistant Staph. aureus 05/23/22 18:16 Blood Culture (Wb) - Right Forearm Blood Culture - Final Meth. resistant Staph. aureus 06/07/22 11:52 Blood Culture (Wb) - Anticubital Right Blood Culture - Final Staphylococcus aureus 06/05/22 09:15 Blood Culture (Wb) - Right Forearm Blood Culture - Final Staphylococcus aureus 06/03/22 09:50 Blood Culture (Wb) - Anticubital Right Blood Culture - Final Staphylococcus aureus 06/04/22 06:00 Blood Culture (Wb) - Right Forearm Blood Culture - Final Staphylococcus aureus 06/07/22 06:47 Nasal Secretion SARS-CoV-2 Antigen (Rapid) - Final 06/02/22 12:48 Blood Culture (Wb) - Dialysis/Fistula Blood Culture - Final Meth. resistant Staph. aureus 06/01/22 06:47 Blood Culture (Wb) - Right Wrist Blood Culture - Final Staphylococcus aureus 05/31/22 11:53 Blood Culture (Wb) - Anticubital Right Blood Culture - Final Staphylococcus aureus 05/31/22 11:45 Blood Culture (Wb) - Anticubital Right Blood Culture - Final Staphylococcus aureus 05/23/22 19:10 Blood Culture (Wb) - Anticubital Right Bacteria Detection (PCR) - Final Staphylococcus aureus mecA Resistance Marker 05/23/22 19:10 Blood Culture (Wb) - Anticubital Right Blood Culture - Final Meth. resistant Staph. aureus 05/23/22 22:40 Mucosa - Nasopharyngeal Respiratory Panel (PCR) - Final Radiography Diagnostic Testing: Radiology Impression WBC Scan Nuclear Medicine 06/08/22 12:21 IMPRESSION: 1. The increase in radiopharmaceutical visualized in the left upper pelvic mesentery may represent a localized infectious process. Correlation with CT of the abdomen and pelvis with oral and intravenous contrast is recommended. 2. Facilitated uptake noted in the lateral femoral component of the right knee prosthesis may be further investigated with Tc sulfur colloid imaging if low-grade prosthetic sepsis is suspected. Electronically Signed: Rajesh Luevano at 13:51 EST , Abdomen/Pelvis CT 06/09/22 16:43 IMPRESSION: Small extraluminal air and fluid collection adjacent to small bowel loops, corresponding to the abnormal white blood cell scan consistent with abscess/contained perforation. Pneumatosis coli. Multiple gallstones. No biliary dilatation. Stable solid mass of the right kidney. Atrophy of the kidneys. 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 Electronically Signed: Roderick Stallworth MD at 21:42 EST , ADDENDUM: 06/09/222153 IMPRESSION: Small extraluminal air and fluid collection adjacent to small bowel loops, corresponding to the abnormal white blood cell scan consistent with abscess/contained perforation. Pneumatosis coli. Multiple gallstones. No biliary dilatation. Stable solid mass of the right kidney. Atrophy of the kidneys. 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 N.B. : The above Results were Read Back by Roderick Stallworth MD to Odalys Bedolla MD, and understanding confirmed on 06/09/2022 21:47:12 (ET). Electronically Signed: Roderick Stallworth MD at 21:42 EST , Rhythm Strip Rhythm Strip: Junctional Rate: 63 Physical Exam Narrative Alert and oriented x3, no apparent distress S1, S2 RRR Lungs sounds clear anteriorly. No wheezes, rhonchi, rales noted Abdomen soft, round, nontender Trace edema noted to bilateral lower legs Left upper arm AV fistula positive thrill and bruit. Edema noted to left arm but edema has improved Assessment & Plan Assessment/Plan (1) ESRD (end stage renal disease): PLAN: - On hemodialysis Tuesday, Tuesday, Tuesday schedule. Patient tolerated dialysis yesterday with 4 L UF. 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 We will plan for next dialysis tomorrow over 4 hours, 2K bath, will attempt ~4L fluid removal with HD as patient/blood pressure tolerates. No issues with cannulating left arm, no issues with blood flow rate during dialysis. Outpatient dry weight ~91kg -Left arm edema, the same side as fistula. No signs of infection. Elevate left arm as tolerated. 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 - anemia of chronic disease; received Epogen with HD 06/09. Will continue to monitor hgb trends. Epogen ordered with HD tomorrow -Hyponatremia. Moderate. Should improve with fluid removal with dialysis - Persistent MRSA bacteremia; Tagged WBC scan 06/09 with findings: increased radiopharmaceutical concentration left upper pelvic mesentery and right knee prosthesis. CT A/P: stable solid mass right kidney, gallstones, small extraluminal air and fluid collection adjacent small bowel loops consistent with abscess/contained perforation. Blood cultures are still positive from 06/04, 06/05 and 06/07. Repeated blood cultures 06/08 are pending. Antibiotics per ID, daptomycin and Ceftaroline fosamil. BRANDON 06/07 no vegetation or source of embolus noted. Stable dry gangrene left hallux with no signs of infection, followed by podiatry, per podiatry: patient will ultimately require revascularization to left foot and may subsequently require hallux amputation, and will be planned once patient is medically stable and likely on an outpatient basis. - Chronic hypotension, continue midodrine 20 mg 3 times daily. Patient is asymptomatic during dialysis with low BP and able to tolerate fluid removal with dialysis. - on binders, will check phos tomorrow. - continue protein supplement (2) MRSA bacteremia:
[2022-06-10] MEDS: Nepro Liquid 120 ML LIQUID PO ×4 (09:33→23:13)
[2022-06-10] MEDS: SEVELAMER CARBONATE 800 MG TABLET PO ×3 (09:33→17:53)
[2022-06-10] MEDS: Amiodarone 200 MG Tablet PO (09:34)
[2022-06-10] MEDS: Midodrine HCl 5 MG Tablet 20 MG PO ×3 (09:34→17:54)
[2022-06-10] MEDS: Multivitamins,Therapeutic Tablet 1 TABLET PO (09:34)
[2022-06-10] MEDS: APIXABAN 2.5 MG TABLET (WCH) PO ×2 (09:34→23:11)
[2022-06-10] MEDS: Tamsulosin HCl 0.4 MG Capsule PO (09:34)
[2022-06-10] MEDS: Aspirin E.C. 81 MG Tablet PO (09:34)
[2022-06-10] MEDS: Menthol/Lanolin/Calamine/Znox 113 GM Tube 1 APPLIC TOPICAL ×2 (09:35→23:11)
--- NOTE | 2022-06-10 10:10 | CASEMGMT ---
SW sent updates to [facility]. Updates included PT/OT from 06-10 not 06-09 as patient was not seen due to being on dialysis, physician notes from 06-09, and Nephro note 06-10, as well as current inpatient med list. Emerald Nuñez SURGICAL ATTENDANT [facility]
--- NOTE | 2022-06-10 10:27 | PCM.PN.ID ---
Physical Exam Narrative Feeling good, no fever, no abd pain Const alert and no apparent distress Resp normal air movement and clear to auscultation bilaterally Cardio regular rate and regular rhythm GI soft to palpation, non-tender and non-distended Extremity General Extremity: edema Skin no rashes or lesions noted ID ID: Route of nutrition/ use of supplements: [] Nutritional Intake: [] IV Site: [] Melendez Catheter: [] Assessment & Plan Assessment/Plan (1) ESRD (end stage renal disease): (2) Pneumonia: (3) MRSA bacteremia: PLAN: Unclear source, could be from fistula procedure, gangrene of L hallux, or pneumonia. - TTE showed no veg, EF 30% - repeat bcx today to monitor for clearance - sputum cx with MRSA - complicated by R knee PJI - OR 05/26/[address] Alfaro. - no osteo/discitis seen on noncontrast t-spine mri. - bcx showing some vanc JUNIOR creep upwards. 05/31/22 changed to dapto/ceftaroline. Spoke with micro lab, dapto was susc, sending out for ceftaroline testing. - BRANDON 06/07 neg. - Bcx from 06/08 now neg at 48h. Tagged wbc scan done. 2cm collection seen in abd. At this point with bcx clearing, I do not see a need for further surgery/procedures. Once bcx are neg at 72+ hours, plan will be for discharge on dapto dosed with HD. will follow, d/w Dr. Ellsworth (4) Infection of total right knee replacement:
--- NOTE | 2022-06-10 10:35 | CASEMGMT ---
Physician said patient had his first negative blood culture from 2-14. Hospitalist would like to d/c tomorrow and Infectious Disease physician is not sure yet. SW notified [facility] of the negative blood culture and both physicians opinions on discharge via [facility]. Emerald Nuñez [employer]IR[employer] [place]
[2022-06-10 12:06] LABS: Bedside Glucose 161 mg/dL (74-106)
[2022-06-10] MEDS: Insulin Lispro 100 UNIT/ML INSULN.PEN SC ×2 (12:37→23:12)
--- NOTE | 2022-06-10 14:56 | CASEMGMT ---
CORTNEY sent most recent labs and vital signs to [facility] per their request. Labs were from 2-9 and 2-13 so physician ordered labs. CORTNEY let [facility] know SW will get those results in the am. Emerald Nuñez HE[employer] POLICY ANALYST [place]
[2022-06-10 16:26] LABS: Bedside Glucose 148 mg/dL (74-106)
[2022-06-10 18:36] LABS: Absolute Lymphocyte Count 0.33 X10^3/uL (0.83-4.51); Absolute Neutrophil Count 5.5 X10^3/uL (2.0-7.7); Basophil# 0.05 X10^3/uL; Basophil% 0.8 % (0-1); Eosinophil# 0.07 X10^3/uL; Eosinophils% 1.1 % (0-5); Hematocrit 27.5 % (40-54); Hemoglobin 8.4 g/dL (13.0-16.5); Lymphocyte # 0.33 X10^3/ul (0.83-4.51); Lymphocyte % 5.2 % (19-41); Mean Corp Hgb Conc 30.5 g/dL (32-36); Mean Corpuscular Hgb 30.3 pg (27.0-32.0); Mean Corpuscular Volume 99.3 fL (80-94); Mean Platelet Vol. 10.4 fl (6.2-12.0); Monocyte% 4.7 % (0-10); NRBC Flagged by Analyzer 0 % (0-5); Neutrophil # 5.53 X10^3/uL (2.7-7.7); Neutrophil % 87.3 % (47-70); POSITIVE DIFFERENTIAL YES; Platelet Count 115 K/mm3 (150-450); RBC Distribution Width CV 15.9 % (11.6-14.6); RBC Distribution Width SD 57.7 fl (35.1-43.9); Red Blood Count 2.77 M/mm3 (4.6-6.2); White Blood Count 6.3 K/mm3 (4.4-11.0)
[2022-06-10 18:44] LABS: Differential Indicated SCAN CRITERIA MET
[2022-06-10 18:53] LABS: ALB/GLOB Ratio 0.5 RATIO (0.9-2.4); AST(SGOT) 31 U/L (15-37); Alanine Aminotransfer ALT/SGPT 24 U/L (16-61); Albumin, Serum 2.1 g/dL (3.2-5.0); Alkaline Phosphatase 266 U/L (45-117); Anion Gap 11 (5-15); BUN 35 mg/dL (7-18); BUN/Creat Ratio 7.4 RATIO (10-20); Calcium,Total 9.2 mg/dL (8.5-10.1); Chloride 91 mmol/L (98-107); Creatinine, Serum 4.71 mg/dL (0.70-1.30); EST Glomerular Filtration Rate 13 mL/min (>60); Est Glom Filt Rate - Afr Amer 16 mL/min (>60); Globulin 4.5 g/dL (2.2-4.2); Glucose 148 mg/dL (74-106); Potassium 3.8 mmol/L (3.5-5.1); Protein, Total 6.6 g/dL (6.4-8.2); Sodium Level 129 mmol/L (136-145)
--- NOTE | 2022-06-10 19:01 | PCM.PN.HOSP ---
Reason for Visit Reason for Visit: Diagnoses Methicillin resistant Staphylococcus aureus infection as the cause of diseases classified elsewhere (05/23/22) Essential (primary) hypertension (05/23/22) Non-ST elevation (NSTEMI) myocardial infarction (05/23/22) Ischemic cardiomyopathy (05/23/22) Longstanding persistent atrial fibrillation (05/23/22) Peripheral vascular disease, unspecified (05/23/22) Pneumonia, unspecified organism (05/23/22) Non-pressure chronic ulcer of other part of left foot with fat layer exposed (05/23/22) Chronic kidney disease, stage 4 (severe) (05/23/22) End stage renal disease (05/23/22) Bacteremia (05/23/22) Infection and inflammatory reaction due to internal right knee prosthesis, initial encounter (05/23/22) Presence of coronary angioplasty implant and graft (05/23/22) Subjective Subjective Was seen and examined today, I talked with his who was in the room this morning at the time my examination, patient's blood cultures are now negative, it appears that he might be able to go to [facility] in the next 48 hours for admission there. [facility] requested recent labs, I ordered a CMP and a CBC on the patient today. Patient will be dialyzed tomorrow, I let nephrology know that the patient could possibly be discharged tomorrow so they will do dialysis early in the morning. Objective Data Objective Data Vital Signs: Vital Signs Temp Pulse Resp BP Pulse Ox O2 Del Method O2 Flow Rate 97.6 F L 65 16 102/58 L 93 Room Air 2 06/10/22 17:57 06/10/22 17:57 06/10/22 17:57 06/10/22 17:57 06/10/22 17:57 06/10/22 17:57 06/10/22 14:29 FiO2 40 05/26/22 19:15 Oxygen Flow Rate (L/min) 2 Oxygen Delivery Method Room Air Weight: 97.8 kg Body Mass Index (BMI) 32.6 Intake & Output: Intake and Output for Last 24 Hours 06/08/22 06/09/22 06/10/22 23:59 23:59 23:59 Intake Total 1332.6668 / 1332.6668 1040.0001 / 1040.0001 1239.3334 / 1239.3334 Output Total 4000 / 4000 0 / 0 0 / 0 Balance -2667.3332 / -2667.3332 1040.0001 / 1040.0001 1239.3334 / 1239.3334 Lab / Micro Data Result Diagrams: 06/10/22 18:13 06/11/22 04:19 Labs: Laboratory Results - last 24 hr 06/09/22 21:31: POC Glucose 108 H 06/10/22 06:46: POC Glucose 98 06/10/22 11:39: POC Glucose 161 H 06/10/22 16:02: POC Glucose 148 H 06/10/22 18:13: WBC 6.3, RBC 2.77 L, Hgb 8.4 L, Hct 27.5 L, MCV 99.3 H, MCH 30.3, MCHC 30.5 L, RDW Std Deviation 57.7 H, RDW Coeff of Moni 15.9 H, Plt Count 115 L, MPV 10.4, Immature Gran % (Auto) 0.900, Neut % (Auto) 87.3 H, Lymph % (Auto) 5.2 L, [place] % (Auto) 4.7, Eos % (Auto) 1.1, Baso % (Auto) 0.8, Absolute Neuts (auto) 5.5, Absolute Lymphs (auto) 0.33 L, Nucleated RBC % 0 06/10/22 18:13: Sodium 129 L, Potassium 3.8, Chloride 91 L, Carbon Dioxide 27.0, Anion Gap 11, BUN 35 H, Creatinine 4.71 H, Estim Creat Clear Calc 12.10, Est GFR (MDRD) Af Amer 16 L, Est GFR (MDRD) Non-Af 13 L, BUN/Creatinine Ratio 7.4 L, Glucose 148 H, Calcium 9.2, Total Bilirubin 0.30, AST 31, ALT 24, Alkaline Phosphatase 266 H, Total Protein 6.6, Albumin 2.1 L, Globulin 4.5 H, Albumin/Globulin Ratio 0.5 L Micro: Microbiology 06/08/22 12:45 Blood Culture (Wb) - Anticubital Right Blood Culture - Preliminary No growth in 48 hours. 05/27/22 10:25 Blood Culture (Wb) - Central Line Blood Culture - Final Meth. resistant Staph. aureus 06/06/22 09:24 Blood Culture (Wb) - Right Forearm Blood Culture - Final Meth. resistant Staph. aureus 05/29/22 11:00 Blood Culture (Wb) - Venous Blood Culture - Final Meth. resistant Staph. aureus 05/26/22 Unknown Tissue - Tibial Membrane Gram Stain - Final 05/26/22 Unknown Tissue - Tibial Membrane Wound Culture - Final Meth. resistant Staph. aureus 05/26/22 Unknown Tissue - Tibial Membrane Anaerobic Culture - Final No anaerobic bacteria isolated. 05/26/22 Unknown Tissue - Femoral Membrane Gram Stain - Final 05/26/22 Unknown Tissue - Femoral Membrane Wound Culture - Final Meth. resistant Staph. aureus 05/26/22 Unknown Tissue - Femoral Membrane Anaerobic Culture - Final No anaerobic bacteria isolated. 05/26/22 Unknown Tissue - Suprapatellar Pouch Gram Stain - Final 05/26/22 Unknown Tissue - Suprapatellar Pouch Wound Culture - Final Meth. resistant Staph. aureus 05/26/22 Unknown Tissue - Suprapatellar Pouch Anaerobic Culture - Final No anaerobic bacteria isolated. 05/26/22 21:25 Blood Culture (Wb) - Anticubital Right Blood Culture - Final Meth. resistant Staph. aureus 05/25/22 19:46 Blood Culture (Wb) - Anticubital Right Blood Culture - Final Meth. resistant Staph. aureus 05/25/22 14:35 Fluid - Synovial (joint) Gram Stain - Final 05/25/22 14:35 Fluid - Synovial (joint) Body Fluid Culture - Final Meth. resistant Staph. aureus 05/25/22 14:35 Fluid - Synovial (joint) Anaerobic Culture - Final No anaerobic bacteria isolated. 05/25/22 10:00 Blood Culture (Wb) - Right Hand Blood Culture - Final Meth. resistant Staph. aureus 05/24/22 19:25 Sputum, Expectorated/Coughed Gram Stain - Final 05/24/22 19:25 Sputum, Expectorated/Coughed Respiratory Culture - Final Meth. resistant Staph. aureus 05/23/22 18:16 Blood Culture (Wb) - Right Forearm Blood Culture - Final Meth. resistant Staph. aureus 06/07/22 11:52 Blood Culture (Wb) - Anticubital Right Blood Culture - Final Staphylococcus aureus 06/05/22 09:15 Blood Culture (Wb) - Right Forearm Blood Culture - Final Staphylococcus aureus 06/03/22 09:50 Blood Culture (Wb) - Anticubital Right Blood Culture - Final Staphylococcus aureus 06/04/22 06:00 Blood Culture (Wb) - Right Forearm Blood Culture - Final Staphylococcus aureus 06/07/22 06:47 Nasal Secretion SARS-CoV-2 Antigen (Rapid) - Final 06/02/22 12:48 Blood Culture (Wb) - Dialysis/Fistula Blood Culture - Final Meth. resistant Staph. aureus 06/01/22 06:47 Blood Culture (Wb) - Right Wrist Blood Culture - Final Staphylococcus aureus 05/31/22 11:53 Blood Culture (Wb) - Anticubital Right Blood Culture - Final Staphylococcus aureus 05/31/22 11:45 Blood Culture (Wb) - Anticubital Right Blood Culture - Final Staphylococcus aureus 05/23/22 19:10 Blood Culture (Wb) - Anticubital Right Bacteria Detection (PCR) - Final Staphylococcus aureus mecA Resistance Marker 05/23/22 19:10 Blood Culture (Wb) - Anticubital Right Blood Culture - Final Meth. resistant Staph. aureus 05/23/22 22:40 Mucosa - Nasopharyngeal Respiratory Panel (PCR) - Final Radiography Diagnostic Testing: Radiology Impression Abdomen/Pelvis CT 06/09/22 16:43 IMPRESSION: Small extraluminal air and fluid collection adjacent to small bowel loops, corresponding to the abnormal white blood cell scan consistent with abscess/contained perforation. Pneumatosis coli. Multiple gallstones. No biliary dilatation. Stable solid mass of the right kidney. Atrophy of the kidneys. 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 Electronically Signed: Roderick Stallworth MD at 21:42 EST Reading Location ID and State: [id number] [place] [address] , Service support , ADDENDUM: 06/09/221 IMPRESSION: Small extraluminal air and fluid collection adjacent to small bowel loops, corresponding to the abnormal white blood cell scan consistent with abscess/contained perforation. Pneumatosis coli. Multiple gallstones. No biliary dilatation. Stable solid mass of the right kidney. Atrophy of the kidneys. 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 N.B. : The above Results were Read Back by Roderick Stallworth MD to Odalys Bedolla MD, and understanding confirmed on 06/09/2022 21:47:12 (ET). Electronically Signed: Roderick Stallworth MD at 21:42 EST , Rhythm Strip Rhythm Strip: Junctional Rate: 63 Physical Exam Narrative Patient appears frail and older than his stated age Const alert, oriented x3 and no apparent distress HEENT head/scalp atraumatic and moist oral mucous membranes Eyes PERRL, EOMs intact bilaterally and conjunctivae normal Neck supple and no JVD Resp normal respiratory effort, no retractions and no use of accessory muscles Cardio regular rate, regular rhythm, S1 normal heart sound and S2 normal heart sound GI normal to inspection, nondistended, normoactive bowel sounds, soft to palpation and non-tender Neuro oriented x3, CN's II-XII intact bilaterally, moves all extremities and no focal motor deficits Sensorium / Orientation: awake, alert, oriented to person, oriented to place and oriented to time Psych affect normal Assessment & Plan Assessment/Plan (1) MRSA bacteremia: (2) Infection of total right knee replacement: PLAN: Plan 1. MRSA infection of the right knee-blood cultures are negative now according to infectious diseases, patient will be reevaluated tomorrow for possible discharge to a rehab facility. #2 type 2 diabetes-patient's blood sugars will be monitored, sliding scale insulin will be used #3 persistent MRSA bacteremia-possibly secondary to #1, continue present antibiotic #4 coronary artery disease-continue present medications #5 [id number] remains on medications at this time #6 end-stage renal disease on dialysis-patient was dialyzed today Total clinical time spent by myself addressing the patient's medical problems, reviewing the medical data, and collaborating with patient's care team: 37 minutes Charges/Coding Visit Charges Inpatient E&M: 45511 Subs Hosp L2
[2022-06-10 19:34] LABS: Differential Comment SCANNED
[2022-06-10] MEDS: Atorvastatin Calcium 40 MG Tablet PO (23:11)
[2022-06-10] MEDS: Insulin Glargine-YFGN 100 UNIT/ML Pen SC (23:12)
[2022-06-10] MEDS: Latanoprost 0.005% 1 Bottle 1 DRP OPHTHALMIC (23:13)
[2022-06-10 23:41] LABS: Bedside Glucose 155 mg/dL (74-106)
[2022-06-11] VITALS (8 sets, daily range): BP systolic 83–103; BP diastolic 44–88; PULSE 62–76; RESP 16–20; TEMP 36.4–36.6; O2SAT 93–98
[2022-06-11 05:08] LABS: BUN 39 mg/dL (7-18); BUN/Creat Ratio 7.8 RATIO (10-20); Calcium,Total 9.2 mg/dL (8.5-10.1); Chloride 91 mmol/L (98-107); Creatinine, Serum 5.02 mg/dL (0.70-1.30); EST Glomerular Filtration Rate 12 mL/min (>60); Est Glom Filt Rate - Afr Amer 14 mL/min (>60); Estimated Creatinine Clearance 11.35 ml/min; Glucose 97 mg/dL (74-106); Phosphorus 6.1 mg/dL (2.5-4.9); Potassium 4.1 mmol/L (3.5-5.1); Sodium Level 128 mmol/L (136-145)
[2022-06-11] MEDS: Psyllium 1 PACKET PO ×3 (05:14→21:35)
[2022-06-11 07:11] LABS: Bedside Glucose 106 mg/dL (74-106)
[2022-06-11] MEDS: Budesonide Respules 0.5 MG/2 ML AMPUL.NEB. INHALATION ×2 (07:13→19:19)
--- NOTE | 2022-06-11 08:32 | PCM.PROGNOTE ---
Subjective Subjective Patient was seen this morning for follow up on left 1st toe gangrene. He is resting in bed, no new complaints. He is receiving dialysis. Objective Data Objective Data Vital Signs: Vital Signs Temp Pulse Resp BP Pulse Ox O2 Del Method O2 Flow Rate 97.5 F L 65 18 100/51 L 93 Nasal Cannula 2 06/11/22 02:43 06/11/22 07:14 06/11/22 07:14 06/11/22 02:43 06/11/22 07:14 06/11/22 07:14 06/11/22 07:14 FiO2 40 05/26/22 19:15 Oxygen Flow Rate (L/min) 2 Oxygen Delivery Method Nasal Cannula Weight: 97.8 kg Body Mass Index (BMI) 32.6 Intake & Output: Intake and Output for Last 24 Hours 06/09/22 06/10/22 06/11/22 23:59 23:59 23:59 Intake Total 1040.0001 / 1040.0001 1239.3334 / 1239.3334 1088.3367 / 1088.3367 Output Total 0 / 0 0 / 0 0 / 0 Balance 1040.0001 / 1040.0001 1239.3334 / 1239.3334 1088.3367 / 1088.3367 Lab / Micro Data Result Diagrams: 06/10/22 18:13 06/11/22 04:19 Labs: Laboratory Results - last 24 hr 06/10/22 11:39: POC Glucose 161 H 06/10/22 16:02: POC Glucose 148 H 06/10/22 18:13: WBC 6.3, RBC 2.77 L, Hgb 8.4 L, Hct 27.5 L, MCV 99.3 H, MCH 30.3, MCHC 30.5 L, RDW Std Deviation 57.7 H, RDW Coeff of Moni 15.9 H, Plt Count 115 L, MPV 10.4, Immature Gran % (Auto) 0.900, Neut % (Auto) 87.3 H, Lymph % (Auto) 5.2 L, [place] % (Auto) 4.7, Eos % (Auto) 1.1, Baso % (Auto) 0.8, Absolute Neuts (auto) 5.5, Absolute Lymphs (auto) 0.33 L, Nucleated RBC % 0, Differential Comment SCANNED 06/10/22 18:13: Sodium 129 L, Potassium 3.8, Chloride 91 L, Carbon Dioxide 27.0, Anion Gap 11, BUN 35 H, Creatinine 4.71 H, Estim Creat Clear Calc 12.10, Est GFR (MDRD) Af Amer 16 L, Est GFR (MDRD) Non-Af 13 L, BUN/Creatinine Ratio 7.4 L, Glucose 148 H, Calcium 9.2, Total Bilirubin 0.30, AST 31, ALT 24, Alkaline Phosphatase 266 H, Total Protein 6.6, Albumin 2.1 L, Globulin 4.5 H, Albumin/Globulin Ratio 0.5 L 06/10/22 23:10: POC Glucose 155 H 06/11/22 04:19: Sodium 128 L, Potassium 4.1, Chloride 91 L, Carbon Dioxide 26.0, BUN 39 H, Creatinine 5.02 H, Estim Creat Clear Calc 11.35, Est GFR (MDRD) Af Amer 14 L, Est GFR (MDRD) Non-Af 12 L, BUN/Creatinine Ratio 7.8 L, Glucose 97, Calcium 9.2, Phosphorus 6.1 H, Albumin 2.0 L 06/11/22 06:51: POC Glucose 106 Micro: Microbiology 06/08/22 12:45 Blood Culture (Wb) - Anticubital Right Blood Culture - Preliminary No growth in 48 hours. 05/27/22 10:25 Blood Culture (Wb) - Central Line Blood Culture - Final Meth. resistant Staph. aureus 06/06/22 09:24 Blood Culture (Wb) - Right Forearm Blood Culture - Final Meth. resistant Staph. aureus 05/29/22 11:00 Blood Culture (Wb) - Venous Blood Culture - Final Meth. resistant Staph. aureus 05/26/22 Unknown Tissue - Tibial Membrane Gram Stain - Final 05/26/22 Unknown Tissue - Tibial Membrane Wound Culture - Final Meth. resistant Staph. aureus 05/26/22 Unknown Tissue - Tibial Membrane Anaerobic Culture - Final No anaerobic bacteria isolated. 05/26/22 Unknown Tissue - Femoral Membrane Gram Stain - Final 05/26/22 Unknown Tissue - Femoral Membrane Wound Culture - Final Meth. resistant Staph. aureus 05/26/22 Unknown Tissue - Femoral Membrane Anaerobic Culture - Final No anaerobic bacteria isolated. 05/26/22 Unknown Tissue - Suprapatellar Pouch Gram Stain - Final 05/26/22 Unknown Tissue - Suprapatellar Pouch Wound Culture - Final Meth. resistant Staph. aureus 05/26/22 Unknown Tissue - Suprapatellar Pouch Anaerobic Culture - Final No anaerobic bacteria isolated. 05/26/22 21:25 Blood Culture (Wb) - Anticubital Right Blood Culture - Final Meth. resistant Staph. aureus 05/25/22 19:46 Blood Culture (Wb) - Anticubital Right Blood Culture - Final Meth. resistant Staph. aureus 05/25/22 14:35 Fluid - Synovial (joint) Gram Stain - Final 05/25/22 14:35 Fluid - Synovial (joint) Body Fluid Culture - Final Meth. resistant Staph. aureus 05/25/22 14:35 Fluid - Synovial (joint) Anaerobic Culture - Final No anaerobic bacteria isolated. 05/25/22 10:00 Blood Culture (Wb) - Right Hand Blood Culture - Final Meth. resistant Staph. aureus 05/24/22 19:25 Sputum, Expectorated/Coughed Gram Stain - Final 05/24/22 19:25 Sputum, Expectorated/Coughed Respiratory Culture - Final Meth. resistant Staph. aureus 05/23/22 18:16 Blood Culture (Wb) - Right Forearm Blood Culture - Final Meth. resistant Staph. aureus 06/07/22 11:52 Blood Culture (Wb) - Anticubital Right Blood Culture - Final Staphylococcus aureus 06/05/22 09:15 Blood Culture (Wb) - Right Forearm Blood Culture - Final Staphylococcus aureus 06/03/22 09:50 Blood Culture (Wb) - Anticubital Right Blood Culture - Final Staphylococcus aureus 06/04/22 06:00 Blood Culture (Wb) - Right Forearm Blood Culture - Final Staphylococcus aureus 06/07/22 06:47 Nasal Secretion SARS-CoV-2 Antigen (Rapid) - Final 06/02/22 12:48 Blood Culture (Wb) - Dialysis/Fistula Blood Culture - Final Meth. resistant Staph. aureus 06/01/22 06:47 Blood Culture (Wb) - Right Wrist Blood Culture - Final Staphylococcus aureus 05/31/22 11:53 Blood Culture (Wb) - Anticubital Right Blood Culture - Final Staphylococcus aureus 05/31/22 11:45 Blood Culture (Wb) - Anticubital Right Blood Culture - Final Staphylococcus aureus 05/23/22 19:10 Blood Culture (Wb) - Anticubital Right Bacteria Detection (PCR) - Final Staphylococcus aureus mecA Resistance Marker 05/23/22 19:10 Blood Culture (Wb) - Anticubital Right Blood Culture - Final Meth. resistant Staph. aureus 05/23/22 22:40 Mucosa - Nasopharyngeal Respiratory Panel (PCR) - Final Rhythm Strip Rhythm Strip: Junctional Rate: 63 Physical Exam Narrative NV status unchanges stable eschar to distal tuft of the left hallux noted, no signs of infection. 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 No drainage, no cellulitis, no fluctuance, no maloder bilateral foot or ankle. Chronic PVD bilateral LE. Assessment & Plan Assessment/Plan (1) Peripheral vascular disease, unspecified: PLAN: Plan Patient seen and evaluated. Patient has stable dry gangrene to left hallux, no signs of infection. There is also noted to be signs of developing right heel pressure wound. Left 1st toe - stable, dry, continue to follow for local wound care- Dressing changed today consisting of Betadine and dry sterile dressing Left foot: Patient can be heel weightbearing in surgical shoe on left Patient will ultimately require revascularization to left foot and may subsequently require hallux amputation, awaiting possible vascular surgery intervention. Right heel - keep offloaded. Keep bilateral heels offloading using foam offloading boots. Podiatry will continue to follow.
--- NOTE | 2022-06-11 09:05 | CASEMGMT ---
SW sent updated labs, vitals, and physician's notes to [facility] via [facility]. Emerald Nuñez C[employer] P[employer]ER [place]
--- NOTE | 2022-06-11 09:19 | PN.RENAL_ITS ---
Subjective Subjective Seen on dialysis, tolerating treatment well. No complaints. No overnight events. Objective Data Objective Data Vital Signs: Vital Signs Temp Pulse Resp BP Pulse Ox O2 Del Method O2 Flow Rate 97.5 F L 65 18 100/51 L 93 Nasal Cannula 2 06/11/22 02:43 06/11/22 07:14 06/11/22 07:14 06/11/22 02:43 06/11/22 07:14 06/11/22 07:14 06/11/22 07:14 FiO2 40 05/26/22 19:15 Oxygen Flow Rate (L/min) 2 Oxygen Delivery Method Nasal Cannula Weight: 97.8 kg Body Mass Index (BMI) 32.6 Intake & Output: Intake and Output for Last 24 Hours 06/09/22 06/10/22 06/11/22 23:59 23:59 23:59 Intake Total 1040.0001 / 1040.0001 1239.3334 / 1239.3334 1088.3367 / 1088.3367 Output Total 0 / 0 0 / 0 0 / 0 Balance 1040.0001 / 1040.0001 1239.3334 / 1239.3334 1088.3367 / 1088.3367 Lab / Micro Data Result Diagrams: 06/10/22 18:13 06/11/22 04:19 Labs: Laboratory Results - last 24 hr 06/10/22 11:39: POC Glucose 161 H 06/10/22 16:02: POC Glucose 148 H 06/10/22 18:13: WBC 6.3, RBC 2.77 L, Hgb 8.4 L, Hct 27.5 L, MCV 99.3 H, MCH 30.3, MCHC 30.5 L, RDW Std Deviation 57.7 H, RDW Coeff of Moni 15.9 H, Plt Count 115 L, MPV 10.4, Immature Gran % (Auto) 0.900, Neut % (Auto) 87.3 H, Lymph % (Auto) 5.2 L, Stanley % (Auto) 4.7, Eos % (Auto) 1.1, Baso % (Auto) 0.8, Absolute Neuts (auto) 5.5, Absolute Lymphs (auto) 0.33 L, Nucleated RBC % 0, Differential Comment SCANNED 06/10/22 18:13: Sodium 129 L, Potassium 3.8, Chloride 91 L, Carbon Dioxide 27.0, Anion Gap 11, BUN 35 H, Creatinine 4.71 H, Estim Creat Clear Calc 12.10, Est GFR (MDRD) Af Amer 16 L, Est GFR (MDRD) Non-Af 13 L, BUN/Creatinine Ratio 7.4 L, Glucose 148 H, Calcium 9.2, Total Bilirubin 0.30, AST 31, ALT 24, Alkaline Phosphatase 266 H, Total Protein 6.6, Albumin 2.1 L, Globulin 4.5 H, Albumin/Globulin Ratio 0.5 L 06/10/22 23:10: POC Glucose 155 H 06/11/22 04:19: Sodium 128 L, Potassium 4.1, Chloride 91 L, Carbon Dioxide 26.0, BUN 39 H, Creatinine 5.02 H, Estim Creat Clear Calc 11.35, Est GFR (MDRD) Af Amer 14 L, Est GFR (MDRD) Non-Af 12 L, BUN/Creatinine Ratio 7.8 L, Glucose 97, Calcium 9.2, Phosphorus 6.1 H, Albumin 2.0 L 06/11/22 06:51: POC Glucose 106 Micro: Microbiology 06/08/22 12:45 Blood Culture (Wb) - Anticubital Right Blood Culture - Preliminary No growth in 48 hours. 05/27/22 10:25 Blood Culture (Wb) - Central Line Blood Culture - Final Meth. resistant Staph. aureus 06/06/22 09:24 Blood Culture (Wb) - Right Forearm Blood Culture - Final Meth. resistant Staph. aureus 05/29/22 11:00 Blood Culture (Wb) - Venous Blood Culture - Final Meth. resistant Staph. aureus 05/26/22 Unknown Tissue - Tibial Membrane Gram Stain - Final 05/26/22 Unknown Tissue - Tibial Membrane Wound Culture - Final Meth. resistant Staph. aureus 05/26/22 Unknown Tissue - Tibial Membrane Anaerobic Culture - Final No anaerobic bacteria isolated. 05/26/22 Unknown Tissue - Femoral Membrane Gram Stain - Final 05/26/22 Unknown Tissue - Femoral Membrane Wound Culture - Final Meth. resistant Staph. aureus 05/26/22 Unknown Tissue - Femoral Membrane Anaerobic Culture - Final No anaerobic bacteria isolated. 05/26/22 Unknown Tissue - Suprapatellar Pouch Gram Stain - Final 05/26/22 Unknown Tissue - Suprapatellar Pouch Wound Culture - Final Meth. resistant Staph. aureus 05/26/22 Unknown Tissue - Suprapatellar Pouch Anaerobic Culture - Final No anaerobic bacteria isolated. 05/26/22 21:25 Blood Culture (Wb) - Anticubital Right Blood Culture - Final Meth. resistant Staph. aureus 05/25/22 19:46 Blood Culture (Wb) - Anticubital Right Blood Culture - Final Meth. resistant Staph. aureus 05/25/22 14:35 Fluid - Synovial (joint) Gram Stain - Final 05/25/22 14:35 Fluid - Synovial (joint) Body Fluid Culture - Final Meth. resistant Staph. aureus 05/25/22 14:35 Fluid - Synovial (joint) Anaerobic Culture - Final No anaerobic bacteria isolated. 05/25/22 10:00 Blood Culture (Wb) - Right Hand Blood Culture - Final Meth. resistant Staph. aureus 05/24/22 19:25 Sputum, Expectorated/Coughed Gram Stain - Final 05/24/22 19:25 Sputum, Expectorated/Coughed Respiratory Culture - Final Meth. resistant Staph. aureus 05/23/22 18:16 Blood Culture (Wb) - Right Forearm Blood Culture - Final Meth. resistant Staph. aureus 06/07/22 11:52 Blood Culture (Wb) - Anticubital Right Blood Culture - Final Staphylococcus aureus 06/05/22 09:15 Blood Culture (Wb) - Right Forearm Blood Culture - Final Staphylococcus aureus 06/03/22 09:50 Blood Culture (Wb) - Anticubital Right Blood Culture - Final Staphylococcus aureus 06/04/22 06:00 Blood Culture (Wb) - Right Forearm Blood Culture - Final Staphylococcus aureus 06/07/22 06:47 Nasal Secretion SARS-CoV-2 Antigen (Rapid) - Final 06/02/22 12:48 Blood Culture (Wb) - Dialysis/Fistula Blood Culture - Final Meth. resistant Staph. aureus 06/01/22 06:47 Blood Culture (Wb) - Right Wrist Blood Culture - Final Staphylococcus aureus 05/31/22 11:53 Blood Culture (Wb) - Anticubital Right Blood Culture - Final Staphylococcus aureus 05/31/22 11:45 Blood Culture (Wb) - Anticubital Right Blood Culture - Final Staphylococcus aureus 05/23/22 19:10 Blood Culture (Wb) - Anticubital Right Bacteria Detection (PCR) - Final Staphylococcus aureus mecA Resistance Marker 05/23/22 19:10 Blood Culture (Wb) - Anticubital Right Blood Culture - Final Meth. resistant Staph. aureus 05/23/22 22:40 Mucosa - Nasopharyngeal Respiratory Panel (PCR) - Final Rhythm Strip Rhythm Strip: Junctional Rate: 63 Physical Exam Narrative Alert and oriented x3, no apparent distress S1, S2 RRR Lungs sounds clear anteriorly. No wheezes, rhonchi, rales noted Abdomen soft, round, nontender Trace edema noted to bilateral lower legs Left upper arm AV fistula positive thrill and bruit. Edema noted to left arm but edema has improved, skin wrinkled Assessment & Plan Assessment/Plan (1) ESRD (end stage renal disease): PLAN: - On hemodialysis Tuesday, Tuesday, Tuesday schedule. Patient has been tolerating dialysis well in hospital setting and has been tolerating around 4 L fluid removal even though hypotensive. We will plan for dialysis today over 4 hours, 2K bath, will attempt ~4L fluid removal with HD as patient/blood pressure tolerates. No issues with cannulating left arm, no issues with blood flow rate during dialysis. Outpatient dry weight ~91kg -Left arm edema, the same side as fistula. No signs of infection. Elevate left arm as tolerated. 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 - anemia of chronic disease; received Epogen with HD 06/09. Will continue to monitor hgb trends. Epogen ordered with HD today -Hyponatremia. Moderate. Should improve with fluid removal with dialysis - Persistent MRSA bacteremia; Tagged WBC scan 06/09 with findings: increased radiopharmaceutical concentration left upper pelvic mesentery and right knee prosthesis. CT A/P: stable solid mass right kidney, gallstones, small extr aluminal air and fluid collection adjacent small bowel loops consistent with abscess/contained perforation. Blood cultures are still positive from 06/04, 06/05 and 06/07. Repeated blood cultures 06/08 so far no growth. Blood cultures drawn 06/10 and are pending. Antibiotics per ID, daptomycin and Ceftaroline fosamil. BRANDON 06/07 no vegetation or source of embolus noted. Stable dry gangrene left hallux with no signs of infection, followed by podiatry, per podiatry: patient will ultimately require revascularization to left foot and may subsequently require hallux amputation, and will be planned once patient is medically stable and likely on an outpatient basis. - Chronic hypotension, continue midodrine 20 mg 3 times daily. Patient is asymptomatic during dialysis with low BP and able to tolerate fluid removal with dialysis. -Continue Renvela, phosphorus 6.1. - continue protein supplement -Discharge plans in progress. To be discharged to [facility] rehab on Dapto dosed with dialysis. (2) MRSA bacteremia:
--- NOTE | 2022-06-11 13:17 | DIALYSIS ---
dialysis completed x 4 hrs. Access via [facility] AV[facility]. Net UF 4000ml. pt citlaly well. See HD flowsheet on chart.
--- NOTE | 2022-06-11 13:31 | CASEMGMT ---
Infectious Disease Physician said patient's blood culture was positive and he will likely not be able to go until Tuesday at the earliest. SW sent blood culture and this information to [facility] SW also let them know that therapy did not work with patient today at he was getting dialysis. CORTNEY explained SW does not work on weekends so will not be sending them any updates until Tuesday. Plan: [facility] when medically ready. Emerald REECE
--- NOTE | 2022-06-11 14:18 | PCM.PN.ID ---
Physical Exam Narrative Feeling ok, no fever Const alert and no apparent distress Resp normal air movement and clear to auscultation bilaterally Cardio regular rate and regular rhythm GI soft to palpation, non-tender and non-distended Extremity General Extremity: Negative for edema Skin no rashes or lesions noted ID ID: Route of nutrition/ use of supplements: [] Nutritional Intake: [] IV Site: [] Melendez Catheter: [] Assessment & Plan Assessment/Plan (1) ESRD (end stage renal disease): (2) Pneumonia: (3) MRSA bacteremia: PLAN: Unclear source, could be from fistula procedure, gangrene of L hallux, or pneumonia. - TTE showed no veg, EF 30% - repeat bcx today to monitor for clearance - sputum cx with MRSA - complicated by R knee PJI - OR 05/26/[address] Alfaro. - no osteo/discitis seen on noncontrast t-spine mri. - bcx showing some vanc JUNIOR creep upwards. 05/31/22 changed to dapto/ceftaroline. Spoke with micro lab, dapto was susc, sending out for ceftaroline testing. - BRANDON 06/07 neg. - Bcx from 06/08 now neg at 72h but repeat after that is (+). Tagged wbc scan done. 2cm collection seen in abd. At this point with bcx overall showing signs of clearing, I do not see a need for further surgery/procedures. Once bcx are neg at 72+ hours, plan will be for discharge on dapto dosed with HD. will follow, d/w Dr. Ellsworth (4) Infection of total right knee replacement:
[2022-06-11] MEDS: Aspirin E.C. 81 MG Tablet PO (14:43)
[2022-06-11] MEDS: Amiodarone 200 MG Tablet PO (14:43)
[2022-06-11] MEDS: Tamsulosin HCl 0.4 MG Capsule PO (14:43)
[2022-06-11] MEDS: Multivitamins,Therapeutic Tablet 1 TABLET PO (14:43)
[2022-06-11] MEDS: Midodrine HCl 5 MG Tablet 20 MG PO ×2 (14:44→18:42)
[2022-06-11] MEDS: APIXABAN 2.5 MG TABLET (WCH) PO ×2 (14:44→21:34)
[2022-06-11] MEDS: SEVELAMER CARBONATE 800 MG TABLET PO ×2 (14:45→18:43)
[2022-06-11] MEDS: Lactulose 20 GM/30 ML UDC 30 GM PO ×2 (14:47→21:33)
[2022-06-11] MEDS: Epoetin Alfa epbx 10,000 UNITS/ML 20000 UNIT IV (14:48)
[2022-06-11] MEDS: Menthol/Lanolin/Calamine/Znox 113 GM Tube 1 APPLIC TOPICAL ×2 (14:50→21:38)
[2022-06-11] MEDS: Nepro Liquid 120 ML LIQUID PO ×2 (14:50→18:43)
[2022-06-11 15:21] LABS: Bedside Glucose 135 mg/dL (74-106)
--- NOTE | 2022-06-11 20:04 | PCM.PN.HOSP ---
Reason for Visit Reason for Visit: Diagnoses Methicillin resistant Staphylococcus aureus infection as the cause of diseases classified elsewhere (05/23/22) Essential (primary) hypertension (05/23/22) Non-ST elevation (NSTEMI) myocardial infarction (05/23/22) Ischemic cardiomyopathy (05/23/22) Longstanding persistent atrial fibrillation (05/23/22) Peripheral vascular disease, unspecified (05/23/22) Pneumonia, unspecified organism (05/23/22) Non-pressure chronic ulcer of other part of left foot with fat layer exposed (05/23/22) Chronic kidney disease, stage 4 (severe) (05/23/22) End stage renal disease (05/23/22) Bacteremia (05/23/22) Infection and inflammatory reaction due to internal right knee prosthesis, initial encounter (05/23/22) Presence of coronary angioplasty implant and graft (05/23/22) Subjective Subjective Patient was seen and examined today, he underwent dialysis today, patient's blood culture from 06/10/2022 was positive for gram-positive cocci, I talked to ID about this today and ID felt that he was still making progress but he would need to remain on IV antibiotics in the hospital. Patient lost his IV access today, I talked with nephrology and infectious diseases, nephrology was not in favor of the patient having a midline or PICC line but infectious diseases felt it was necessary to deliver antibiotics, I informed nephrology of this and they were okay with the line being placed. Objective Data Objective Data Vital Signs: Vital Signs Temp Pulse Resp BP Pulse Ox O2 Del Method O2 Flow Rate 97.8 F 66 18 102/47 L 96 Nasal Cannula 1 06/11/22 14:45 06/11/22 14:45 06/11/22 14:45 06/11/22 14:45 06/11/22 14:45 06/11/22 18:45 06/11/22 18:45 FiO2 40 05/26/22 19:15 Oxygen Flow Rate (L/min) 1 Oxygen Delivery Method Nasal Cannula Weight: 97.8 kg Body Mass Index (BMI) 32.6 Intake & Output: Intake and Output for Last 24 Hours 06/09/22 06/10/22 06/11/22 23:59 23:59 23:59 Intake Total 1040.0001 / 1040.0001 1239.3334 / 1239.3334 1193.3334 / 1193.3334 Output Total 0 / 0 0 / 0 8000 / 8000 Balance 1040.0001 / 1040.0001 1239.3334 / 1239.3334 -6806.6666 / -6806.6666 Lab / Micro Data Result Diagrams: 06/10/22 18:13 06/11/22 04:19 Labs: Laboratory Results - last 24 hr 06/10/22 23:10: POC Glucose 155 H 06/11/22 04:19: Sodium 128 L, Potassium 4.1, Chloride 91 L, Carbon Dioxide 26.0, BUN 39 H, Creatinine 5.02 H, Estim Creat Clear Calc 11.35, Est GFR (MDRD) Af Amer 14 L, Est GFR (MDRD) Non-Af 12 L, BUN/Creatinine Ratio 7.8 L, Glucose 97, Calcium 9.2, Phosphorus 6.1 H, Albumin 2.0 L 06/11/22 06:51: POC Glucose 106 06/11/22 14:54: POC Glucose 135 H Micro: Microbiology 06/10/22 10:13 Blood Culture (Wb) - Anticubital Right Blood Culture - Preliminary 06/08/22 12:45 Blood Culture (Wb) - Anticubital Right Blood Culture - Preliminary No growth in 48 hours. 05/27/22 10:25 Blood Culture (Wb) - Central Line Blood Culture - Final Meth. resistant Staph. aureus 06/06/22 09:24 Blood Culture (Wb) - Right Forearm Blood Culture - Final Meth. resistant Staph. aureus 05/29/22 11:00 Blood Culture (Wb) - Venous Blood Culture - Final Meth. resistant Staph. aureus 05/26/22 Unknown Tissue - Tibial Membrane Gram Stain - Final 05/26/22 Unknown Tissue - Tibial Membrane Wound Culture - Final Meth. resistant Staph. aureus 05/26/22 Unknown Tissue - Tibial Membrane Anaerobic Culture - Final No anaerobic bacteria isolated. 05/26/22 Unknown Tissue - Femoral Membrane Gram Stain - Final 05/26/22 Unknown Tissue - Femoral Membrane Wound Culture - Final Meth. resistant Staph. aureus 05/26/22 Unknown Tissue - Femoral Membrane Anaerobic Culture - Final No anaerobic bacteria isolated. 05/26/22 Unknown Tissue - Suprapatellar Pouch Gram Stain - Final 05/26/22 Unknown Tissue - Suprapatellar Pouch Wound Culture - Final Meth. resistant Staph. aureus 05/26/22 Unknown Tissue - Suprapatellar Pouch Anaerobic Culture - Final No anaerobic bacteria isolated. 05/26/22 21:25 Blood Culture (Wb) - Anticubital Right Blood Culture - Final Meth. resistant Staph. aureus 05/25/22 19:46 Blood Culture (Wb) - Anticubital Right Blood Culture - Final Meth. resistant Staph. aureus 05/25/22 14:35 Fluid - Synovial (joint) Gram Stain - Final 05/25/22 14:35 Fluid - Synovial (joint) Body Fluid Culture - Final Meth. resistant Staph. aureus 05/25/22 14:35 Fluid - Synovial (joint) Anaerobic Culture - Final No anaerobic bacteria isolated. 05/25/22 10:00 Blood Culture (Wb) - Right Hand Blood Culture - Final Meth. resistant Staph. aureus 05/24/22 19:25 Sputum, Expectorated/Coughed Gram Stain - Final 05/24/22 19:25 Sputum, Expectorated/Coughed Respiratory Culture - Final Meth. resistant Staph. aureus 05/23/22 18:16 Blood Culture (Wb) - Right Forearm Blood Culture - Final Meth. resistant Staph. aureus 06/07/22 11:52 Blood Culture (Wb) - Anticubital Right Blood Culture - Final Staphylococcus aureus 06/05/22 09:15 Blood Culture (Wb) - Right Forearm Blood Culture - Final Staphylococcus aureus 06/03/22 09:50 Blood Culture (Wb) - Anticubital Right Blood Culture - Final Staphylococcus aureus 06/04/22 06:00 Blood Culture (Wb) - Right Forearm Blood Culture - Final Staphylococcus aureus 06/07/22 06:47 Nasal Secretion SARS-CoV-2 Antigen (Rapid) - Final 06/02/22 12:48 Blood Culture (Wb) - Dialysis/Fistula Blood Culture - Final Meth. resistant Staph. aureus 06/01/22 06:47 Blood Culture (Wb) - Right Wrist Blood Culture - Final Staphylococcus aureus 05/31/22 11:53 Blood Culture (Wb) - Anticubital Right Blood Culture - Final Staphylococcus aureus 05/31/22 11:45 Blood Culture (Wb) - Anticubital Right Blood Culture - Final Staphylococcus aureus 05/23/22 19:10 Blood Culture (Wb) - Anticubital Right Bacteria Detection (PCR) - Final Staphylococcus aureus mecA Resistance Marker 05/23/22 19:10 Blood Culture (Wb) - Anticubital Right Blood Culture - Final Meth. resistant Staph. aureus 05/23/22 22:40 Mucosa - Nasopharyngeal Respiratory Panel (PCR) - Final Rhythm Strip Rhythm Strip: Junctional Rate: 63 Physical Exam Narrative Patient appears frail and older than his stated age Const alert, oriented x3 and no apparent distress HEENT head/scalp atraumatic and moist oral mucous membranes Eyes PERRL, EOMs intact bilaterally and conjunctivae normal Neck supple and no JVD Resp normal respiratory effort, no retractions and no use of accessory muscles Cardio regular rate, regular rhythm, S1 normal heart sound and S2 normal heart sound GI normal to inspection, nondistended, normoactive bowel sounds, soft to palpation and non-tender Neuro oriented x3, CN's II-XII intact bilaterally, moves all extremities and no focal motor deficits Sensorium / Orientation: awake, alert, oriented to person, oriented to place and oriented to time Psych affect normal Assessment & Plan Assessment/Plan (1) MRSA bacteremia: (2) Infection of total right knee replacement: PLAN: Plan 1. MRSA infection of the right knee-blood culture on 06/10/2022 was positive for gram-positive cocci, patient will remain on IV antibiotic treatment for now, it is likely he will need to remain in the hospital this weekend, I talked to the patient's about this and answered her questions. #2 type 2 diabetes-patient's blood sugars will be monitored, sliding scale insulin will be used #3 persistent MRSA bacteremia-possibly secondary to #1, continue present antibiotics, patient will need a midline catheter placed for blood draws and antibiotics. #4 coronary artery disease-continue present medications #5 [id number] remains on medications at this time #6 end-stage renal disease on dialysis-patient was dialyzed today Total clinical time spent by myself addressing the patient's medical problems, reviewing the medical data, and collaborating with patient's care team: 36 minutes Charges/Coding Visit Charges Inpatient E&M: [id number] Subs Hosp L2
[2022-06-11] MEDS: Insulin Glargine-YFGN 100 UNIT/ML Pen SC (21:25)
[2022-06-11] MEDS: Latanoprost 0.005% 1 Bottle 1 DRP OPHTHALMIC (21:33)
[2022-06-11] MEDS: MELATONIN 3 MG TABLET PO (21:34)
[2022-06-11] MEDS: Acetaminophen 325 MG Tablet 650 MG PO (21:34)
[2022-06-11] MEDS: Atorvastatin Calcium 40 MG Tablet PO (21:34)
[2022-06-11 22:45] LABS: Bedside Glucose 144 mg/dL (74-106)
[2022-06-12] VITALS (9 sets, daily range): BP systolic 65–96; BP diastolic 44–60; PULSE 62–79; RESP 16–20; TEMP 36.1–36.8; O2SAT 92–97
[2022-06-12] MEDS: Psyllium 1 PACKET PO ×2 (06:21→15:13)
[2022-06-12 06:45] LABS: Bedside Glucose 102 mg/dL (74-106)
[2022-06-12] MEDS: Budesonide Respules 0.5 MG/2 ML AMPUL.NEB. INHALATION ×2 (07:26→19:55)
[2022-06-12] MEDS: Midodrine HCl 5 MG Tablet 20 MG PO ×3 (09:52→16:38)
[2022-06-12] MEDS: Amiodarone 200 MG Tablet PO (09:52)
[2022-06-12] MEDS: Aspirin E.C. 81 MG Tablet PO (09:52)
[2022-06-12] MEDS: Lactulose 20 GM/30 ML UDC 30 GM PO ×2 (09:53→23:37)
[2022-06-12] MEDS: Tamsulosin HCl 0.4 MG Capsule PO (09:56)
[2022-06-12] MEDS: Menthol/Lanolin/Calamine/Znox 113 GM Tube 1 APPLIC TOPICAL ×2 (10:00→23:37)
[2022-06-12] MEDS: Multivitamins,Therapeutic Tablet 1 TABLET PO (10:00)
[2022-06-12] MEDS: Nepro Liquid 120 ML LIQUID PO ×3 (10:03→16:38)
[2022-06-12] MEDS: SEVELAMER CARBONATE 800 MG TABLET PO ×2 (11:47→16:38)
[2022-06-12] MEDS: APIXABAN 2.5 MG TABLET (WCH) PO ×2 (11:47→23:39)
[2022-06-12 11:51] LABS: Bedside Glucose 136 mg/dL (74-106)
--- NOTE | 2022-06-12 11:56 | NURSING ---
Addendum entered by Nataly Lamas 06/13/22 15:32: Spoke with Marry again today and was asked to call with any new updates on patient. Original Note: [facility] and [facility] can take patient today if ready to discharge. [phone].
--- NOTE | 2022-06-12 12:13 | CASEMGMT ---
Social Work Note CORTNEY met with patient's per her request and introduced herself and role as [facility] [place] [employer]. Patient's inquired about this social workers availability on the weekends in case staff from [facility] need to speak with CORTNEY. CORTNEY informed patient's SW is available today until 10pm but not available Tuesday. CORTNEY provided the following phone number [phone] if contact is needed. Patient's voiced no other needs. Plan: [facility] rehab when medically ready Laurence STOREY, [place]
[2022-06-12 16:50] LABS: Bedside Glucose 147 mg/dL (74-106)
--- NOTE | 2022-06-12 17:03 | PCM.PN.HOSP ---
Reason for Visit Reason for Visit: Diagnoses Methicillin resistant Staphylococcus aureus infection as the cause of diseases classified elsewhere (05/23/22) Essential (primary) hypertension (05/23/22) Non-ST elevation (NSTEMI) myocardial infarction (05/23/22) Ischemic cardiomyopathy (05/23/22) Longstanding persistent atrial fibrillation (05/23/22) Peripheral vascular disease, unspecified (05/23/22) Pneumonia, unspecified organism (05/23/22) Non-pressure chronic ulcer of other part of left foot with fat layer exposed (05/23/22) Chronic kidney disease, stage 4 (severe) (05/23/22) End stage renal disease (05/23/22) Bacteremia (05/23/22) Infection and inflammatory reaction due to internal right knee prosthesis, initial encounter (05/23/22) Presence of coronary angioplasty implant and graft (05/23/22) Subjective Subjective Patient was seen and examined today, his blood pressure was low this afternoon and I gave him an IV fluid bolus. I talked to the who was in his room at the time my examination today, patient's blood cultures done on 06/11/2022 have not resulted yet. Patient had a midline inserted today for IV fluid administration. Objective Data Objective Data Vital Signs: Vital Signs Temp Pulse Resp BP Pulse Ox O2 Del Method O2 Flow Rate 98.2 F 66 18 80/60 L 94 Nasal Cannula 2 06/12/22 16:54 06/12/22 16:54 06/12/22 16:54 06/12/22 16:54 06/12/22 16:54 06/12/22 16:54 06/12/22 15:50 FiO2 40 05/26/22 19:15 Oxygen Flow Rate (L/min) 2 Oxygen Delivery Method Nasal Cannula Weight: 97.1 kg Body Mass Index (BMI) 32.6 Intake & Output: Intake and Output for Last 24 Hours 06/10/22 06/11/22 06/12/22 23:59 23:59 23:59 Intake Total 1239.3334 / 1239.3334 1193.3334 / 1193.3334 666 / 666 Output Total 0 / 0 8000 / 8000 Balance 1239.3334 / 1239.3334 -6806.6666 / -6806.6666 666 / 666 Lab / Micro Data Result Diagrams: 06/10/22 18:13 06/11/22 04:19 Labs: Laboratory Results - last 24 hr 05/27/22 10:25: Miscellaneous Test 06/11/22 21:24: POC Glucose 144 H 06/12/22 06:20: POC Glucose 102 06/12/22 11:32: POC Glucose 136 H 06/12/22 16:28: POC Glucose 147 H Micro: Microbiology 06/10/22 10:13 Blood Culture (Wb) - Anticubital Right Blood Culture - Preliminary Staphylococcus aureus 06/08/22 12:45 Blood Culture (Wb) - Anticubital Right Blood Culture - Preliminary No growth in 48 hours. 05/27/22 10:25 Blood Culture (Wb) - Central Line Blood Culture - Final Meth. resistant Staph. aureus 06/06/22 09:24 Blood Culture (Wb) - Right Forearm Blood Culture - Final Meth. resistant Staph. aureus 05/29/22 11:00 Blood Culture (Wb) - Venous Blood Culture - Final Meth. resistant Staph. aureus 05/26/22 Unknown Tissue - Tibial Membrane Gram Stain - Final 05/26/22 Unknown Tissue - Tibial Membrane Wound Culture - Final Meth. resistant Staph. aureus 05/26/22 Unknown Tissue - Tibial Membrane Anaerobic Culture - Final No anaerobic bacteria isolated. 05/26/22 Unknown Tissue - Femoral Membrane Gram Stain - Final 05/26/22 Unknown Tissue - Femoral Membrane Wound Culture - Final Meth. resistant Staph. aureus 05/26/22 Unknown Tissue - Femoral Membrane Anaerobic Culture - Final No anaerobic bacteria isolated. 05/26/22 Unknown Tissue - Suprapatellar Pouch Gram Stain - Final 05/26/22 Unknown Tissue - Suprapatellar Pouch Wound Culture - Final Meth. resistant Staph. aureus 05/26/22 Unknown Tissue - Suprapatellar Pouch Anaerobic Culture - Final No anaerobic bacteria isolated. 05/26/22 21:25 Blood Culture (Wb) - Anticubital Right Blood Culture - Final Meth. resistant Staph. aureus 05/25/22 19:46 Blood Culture (Wb) - Anticubital Right Blood Culture - Final Meth. resistant Staph. aureus 05/25/22 14:35 Fluid - Synovial (joint) Gram Stain - Final 05/25/22 14:35 Fluid - Synovial (joint) Body Fluid Culture - Final Meth. resistant Staph. aureus 05/25/22 14:35 Fluid - Synovial (joint) Anaerobic Culture - Final No anaerobic bacteria isolated. 05/25/22 10:00 Blood Culture (Wb) - Right Hand Blood Culture - Final Meth. resistant Staph. aureus 05/24/22 19:25 Sputum, Expectorated/Coughed Gram Stain - Final 05/24/22 19:25 Sputum, Expectorated/Coughed Respiratory Culture - Final Meth. resistant Staph. aureus 05/23/22 18:16 Blood Culture (Wb) - Right Forearm Blood Culture - Final Meth. resistant Staph. aureus 06/07/22 11:52 Blood Culture (Wb) - Anticubital Right Blood Culture - Final Staphylococcus aureus 06/05/22 09:15 Blood Culture (Wb) - Right Forearm Blood Culture - Final Staphylococcus aureus 06/03/22 09:50 Blood Culture (Wb) - Anticubital Right Blood Culture - Final Staphylococcus aureus 06/04/22 06:00 Blood Culture (Wb) - Right Forearm Blood Culture - Final Staphylococcus aureus 06/07/22 06:47 Nasal Secretion SARS-CoV-2 Antigen (Rapid) - Final 06/02/22 12:48 Blood Culture (Wb) - Dialysis/Fistula Blood Culture - Final Meth. resistant Staph. aureus 06/01/22 06:47 Blood Culture (Wb) - Right Wrist Blood Culture - Final Staphylococcus aureus 05/31/22 11:53 Blood Culture (Wb) - Anticubital Right Blood Culture - Final Staphylococcus aureus 05/31/22 11:45 Blood Culture (Wb) - Anticubital Right Blood Culture - Final Staphylococcus aureus 05/23/22 19:10 Blood Culture (Wb) - Anticubital Right Bacteria Detection (PCR) - Final Staphylococcus aureus mecA Resistance Marker 05/23/22 19:10 Blood Culture (Wb) - Anticubital Right Blood Culture - Final Meth. resistant Staph. aureus 05/23/22 22:40 Mucosa - Nasopharyngeal Respiratory Panel (PCR) - Final Rhythm Strip Rhythm Strip: Junctional Rate: 63 Physical Exam Narrative Patient appears frail and older than his stated age Const alert, oriented x3 and no apparent distress HEENT head/scalp atraumatic and moist oral mucous membranes Eyes PERRL, EOMs intact bilaterally and conjunctivae normal Neck supple and no JVD Resp normal respiratory effort, no retractions and no use of accessory muscles Cardio regular rate, regular rhythm, S1 normal heart sound and S2 normal heart sound GI normal to inspection, nondistended, normoactive bowel sounds, soft to palpation and non-tender Neuro oriented x3, CN's II-XII intact bilaterally, moves all extremities and no focal motor deficits Sensorium / Orientation: awake, alert, oriented to person, oriented to place and oriented to time Psych affect normal Assessment & Plan Assessment/Plan (1) MRSA bacteremia: (2) Infection of total right knee replacement: PLAN: Plan 1. MRSA infection of the right knee-blood culture on 06/10/2022 was positive for gram-positive cocci, patient will remain on IV antibiotic treatment for now, he will be reevaluated by infectious diseases on Tuesday #2 type 2 diabetes-patient's blood sugars will be monitored, sliding scale insulin will be used #3 persistent MRSA bacteremia-possibly secondary to #1, continue present antibiotics, patient will need a midline catheter placed for blood draws and antibiotics. #4 coronary artery disease-continue present medications #5 [id number] remains on medications at this time #6 end-stage renal disease on dialysis-patient was dialyzed today Total clinical time spent by myself addressing the patient's medical problems, reviewing the medical data, and collaborating with patient's care team: 35 minutes Charges/Coding Visit Charges Inpatient E&M: 56957 Subs Hosp L2
[2022-06-12] MEDS: Insulin Glargine-YFGN 100 UNIT/ML Pen SC (23:43)
[2022-06-12] MEDS: Latanoprost 0.005% 1 Bottle 1 DRP OPHTHALMIC (23:43)
[2022-06-12] MEDS: MELATONIN 3 MG TABLET PO (23:44)
[2022-06-12] MEDS: Atorvastatin Calcium 40 MG Tablet PO (23:44)
[2022-06-12] MEDS: 0.9% Saline Lock 10 ML Syringe IV (23:46)
[2022-06-13] VITALS (11 sets, daily range): BP systolic 79–101; BP diastolic 44–74; PULSE 55–90; RESP 16–20; TEMP 36.1–36.8; O2SAT 90–99
[2022-06-13 00:21] LABS: Bedside Glucose 124 mg/dL (74-106)
--- NOTE | 2022-06-13 03:30 | NURSING ---
This nurse spoke with and Dr stated if patient was resting with eyes closed, vitals could be held off until 0530 or if he wakes up before then. Patient resting comfortably on home bipap with eyes closed, call light within reach.
[2022-06-13] MEDS: 0.9% Saline Lock 10 ML Syringe IV ×2 (05:41→22:40)
[2022-06-13] MEDS: Psyllium 1 PACKET PO ×3 (06:44→22:41)
[2022-06-13 07:10] LABS: Bedside Glucose 127 mg/dL (74-106)
[2022-06-13] MEDS: Budesonide Respules 0.5 MG/2 ML AMPUL.NEB. INHALATION ×2 (07:14→19:36)
[2022-06-13] MEDS: Multivitamins,Therapeutic Tablet 1 TABLET PO (08:39)
[2022-06-13] MEDS: Nepro Liquid 120 ML LIQUID PO ×4 (08:39→22:41)
[2022-06-13] MEDS: Midodrine HCl 5 MG Tablet 20 MG PO ×3 (08:39→16:29)
[2022-06-13] MEDS: SEVELAMER CARBONATE 800 MG TABLET PO ×3 (08:41→16:29)
[2022-06-13] MEDS: Tamsulosin HCl 0.4 MG Capsule PO (10:07)
[2022-06-13] MEDS: Aspirin E.C. 81 MG Tablet PO (10:07)
[2022-06-13] MEDS: APIXABAN 2.5 MG TABLET (WCH) PO ×2 (10:07→22:42)
[2022-06-13] MEDS: Lactulose 20 GM/30 ML UDC 30 GM PO ×2 (10:07→22:41)
[2022-06-13] MEDS: Amiodarone 200 MG Tablet PO (10:07)
[2022-06-13] MEDS: Menthol/Lanolin/Calamine/Znox 113 GM Tube 1 APPLIC TOPICAL ×2 (10:08→22:43)
[2022-06-13 11:40] LABS: Bedside Glucose 142 mg/dL (74-106)
[2022-06-13] MEDS: Insulin Lispro 100 UNIT/ML INSULN.PEN SC (16:28)
[2022-06-13 17:01] LABS: Bedside Glucose 199 mg/dL (74-106)
--- NOTE | 2022-06-13 19:53 | PCM.PN.HOSP ---
Reason for Visit Reason for Visit: Diagnoses Methicillin resistant Staphylococcus aureus infection as the cause of diseases classified elsewhere (05/23/22) Essential (primary) hypertension (05/23/22) Non-ST elevation (NSTEMI) myocardial infarction (05/23/22) Ischemic cardiomyopathy (05/23/22) Longstanding persistent atrial fibrillation (05/23/22) Peripheral vascular disease, unspecified (05/23/22) Pneumonia, unspecified organism (05/23/22) Non-pressure chronic ulcer of other part of left foot with fat layer exposed (05/23/22) Chronic kidney disease, stage 4 (severe) (05/23/22) End stage renal disease (05/23/22) Bacteremia (05/23/22) Infection and inflammatory reaction due to internal right knee prosthesis, initial encounter (05/23/22) Presence of coronary angioplasty implant and graft (05/23/22) Subjective Subjective Patient was seen and examined today, at the time of this dictation, it appears that the patient's blood cultures on 06/11/2022 and 06/12/2022 are both positive for gram-positive cocci preliminarily. Patient has no complaints of any shortness of breath, fevers, or chills. Objective Data Objective Data Vital Signs: Vital Signs Temp Pulse Resp BP Pulse Ox O2 Del Method O2 Flow Rate 98.0 F 55 L 18 96/56 L 92 Nasal Cannula 2 06/13/22 14:00 06/13/22 14:00 06/13/22 14:00 06/13/22 14:00 06/13/22 14:00 06/13/22 18:00 06/13/22 18:00 FiO2 40 05/26/22 19:15 Oxygen Flow Rate (L/min) 2 Oxygen Delivery Method Nasal Cannula Weight: 97.7 kg Body Mass Index (BMI) 32.6 Intake & Output: Intake and Output for Last 24 Hours 06/11/22 06/12/22 06/13/22 23:59 23:59 23:59 Intake Total 1193.3334 / 1193.3334 1752.6667 / 1752.6667 1160.0001 / 1160.0001 Output Total 8000 / 8000 Balance -6806.6666 / -6806.6666 1752.6667 / 1752.6667 1160.0001 / 1160.0001 Lab / Micro Data Result Diagrams: 06/10/22 18:13 06/11/22 04:19 Labs: Laboratory Results - last 24 hr 06/12/22 23:40: POC Glucose 124 H 06/13/22 06:42: POC Glucose 127 H 06/13/22 11:02: POC Glucose 142 H 06/13/22 16:22: POC Glucose 199 H Micro: Microbiology 06/12/22 08:40 Blood Culture (Wb) - Anticubital Right Blood Culture - Preliminary 06/08/22 12:45 Blood Culture (Wb) - Anticubital Right Blood Culture - Final No growth in 5 days. 06/11/22 13:30 Blood Culture (Wb) - Anticubital Right Blood Culture - Preliminary 06/10/22 10:13 Blood Culture (Wb) - Anticubital Right Blood Culture - Preliminary Meth. resistant Staph. aureus 05/27/22 10:25 Blood Culture (Wb) - Central Line Blood Culture - Final Meth. resistant Staph. aureus 06/06/22 09:24 Blood Culture (Wb) - Right Forearm Blood Culture - Final Meth. resistant Staph. aureus 05/29/22 11:00 Blood Culture (Wb) - Venous Blood Culture - Final Meth. resistant Staph. aureus 05/26/22 Unknown Tissue - Tibial Membrane Gram Stain - Final 05/26/22 Unknown Tissue - Tibial Membrane Wound Culture - Final Meth. resistant Staph. aureus 05/26/22 Unknown Tissue - Tibial Membrane Anaerobic Culture - Final No anaerobic bacteria isolated. 05/26/22 Unknown Tissue - Femoral Membrane Gram Stain - Final 05/26/22 Unknown Tissue - Femoral Membrane Wound Culture - Final Meth. resistant Staph. aureus 05/26/22 Unknown Tissue - Femoral Membrane Anaerobic Culture - Final No anaerobic bacteria isolated. 05/26/22 Unknown Tissue - Suprapatellar Pouch Gram Stain - Final 05/26/22 Unknown Tissue - Suprapatellar Pouch Wound Culture - Final Meth. resistant Staph. aureus 05/26/22 Unknown Tissue - Suprapatellar Pouch Anaerobic Culture - Final No anaerobic bacteria isolated. 05/26/22 21:25 Blood Culture (Wb) - Anticubital Right Blood Culture - Final Meth. resistant Staph. aureus 05/25/22 19:46 Blood Culture (Wb) - Anticubital Right Blood Culture - Final Meth. resistant Staph. aureus 05/25/22 14:35 Fluid - Synovial (joint) Gram Stain - Final 05/25/22 14:35 Fluid - Synovial (joint) Body Fluid Culture - Final Meth. resistant Staph. aureus 05/25/22 14:35 Fluid - Synovial (joint) Anaerobic Culture - Final No anaerobic bacteria isolated. 05/25/22 10:00 Blood Culture (Wb) - Right Hand Blood Culture - Final Meth. resistant Staph. aureus 05/24/22 19:25 Sputum, Expectorated/Coughed Gram Stain - Final 05/24/22 19:25 Sputum, Expectorated/Coughed Respiratory Culture - Final Meth. resistant Staph. aureus 05/23/22 18:16 Blood Culture (Wb) - Right Forearm Blood Culture - Final Meth. resistant Staph. aureus 06/07/22 11:52 Blood Culture (Wb) - Anticubital Right Blood Culture - Final Staphylococcus aureus 06/05/22 09:15 Blood Culture (Wb) - Right Forearm Blood Culture - Final Staphylococcus aureus 06/03/22 09:50 Blood Culture (Wb) - Anticubital Right Blood Culture - Final Staphylococcus aureus 06/04/22 06:00 Blood Culture (Wb) - Right Forearm Blood Culture - Final Staphylococcus aureus 06/07/22 06:47 Nasal Secretion SARS-CoV-2 Antigen (Rapid) - Final 06/02/22 12:48 Blood Culture (Wb) - Dialysis/Fistula Blood Culture - Final Meth. resistant Staph. aureus 06/01/22 06:47 Blood Culture (Wb) - Right Wrist Blood Culture - Final Staphylococcus aureus 05/31/22 11:53 Blood Culture (Wb) - Anticubital Right Blood Culture - Final Staphylococcus aureus 05/31/22 11:45 Blood Culture (Wb) - Anticubital Right Blood Culture - Final Staphylococcus aureus 05/23/22 19:10 Blood Culture (Wb) - Anticubital Right Bacteria Detection (PCR) - Final Staphylococcus aureus mecA Resistance Marker 05/23/22 19:10 Blood Culture (Wb) - Anticubital Right Blood Culture - Final Meth. resistant Staph. aureus 05/23/22 22:40 Mucosa - Nasopharyngeal Respiratory Panel (PCR) - Final Rhythm Strip Rhythm Strip: Junctional Rate: 63 Physical Exam Narrative Patient appears older than his stated age Const alert, oriented x3 and no apparent distress HEENT head/scalp atraumatic and moist oral mucous membranes Eyes PERRL, EOMs intact bilaterally and conjunctivae normal Neck supple and no JVD Resp normal respiratory effort, no retractions and no use of accessory muscles Cardio regular rate, regular rhythm, S1 normal heart sound and S2 normal heart sound GI normal to inspection, nondistended, normoactive bowel sounds, soft to palpation and non-tender Neuro oriented x3, CN's II-XII intact bilaterally, moves all extremities and no focal motor deficits Sensorium / Orientation: awake, alert, oriented to person, oriented to place and oriented to time Psych affect normal Assessment & Plan Assessment/Plan (1) MRSA bacteremia: (2) Infection of total right knee replacement: PLAN: Plan 1. MRSA infection of the right knee-patient's blood cultures on 06/11/2022 and 06/12/2022 are both preliminarily positive for gram-positive cocci, I talked briefly with Dr. Alfaro today on the phone and let him know about this, he is concerned about the patient possibly needing a knee washout or possibly the hardware removed from the patient's right knee. Again, the patient's has told me that if the patient needed any surgical intervention in the knee that she would like him transferred to another hospital for this. Infectious diseases will see the patient tomorrow to assess whether any different course of treatment would be recommended. #2 type 2 diabetes-patient's blood sugars will be monitored, sliding scale insulin will be used #3 persistent MRSA bacteremia-possibly secondary to #1, continue present antibiotics, patient will need a midline catheter placed for blood draws and antibiotics. #4 coronary artery disease-continue present medications #5 [id number] remains on medications at this time #6 end-stage renal disease on dialysis-patient was dialyzed today Total clinical time spent by myself addressing the patient's medical problems, reviewing the medical data, and collaborating with patient's care team: 36 minutes Charges/Coding Visit Charges Inpatient E&M: 22630 Subs Hosp L2
--- NOTE | 2022-06-13 20:40 | NURSING ---
Updated patients on blood culture results per 's request. This nurse updated patients stating patients blood cultures from Tuesday and Tuesday were both positive. stated to this nurse to inform patient that will start calling around to facilities tomorrow, specifically [facility] to transfer patient out for ongoing care of knee per 's request (see note from 06/13). Pts stated she did not understand, she thought the infection was almost gone per what her and talked about. I stated I did not know the conversation between her and and I can only speak on what asked me to pass on to patient. This nurse stated to that someone would call her in the morning with in update if she is not already here visiting patient. Pts stated understanding of being updated tomorrow. Total time spent speaking to patients =10 minutes
--- NOTE | 2022-06-13 20:42 | PCM.PN.REN ---
Subjective Subjective Following for ESRD. Patient has no new complaints. He denies chest pain, shortness of breath, or nausea. He still has some knee pain. Objective Data Objective Data Vital Signs: Vital Signs Temp Pulse Resp BP Pulse Ox O2 Del Method O2 Flow Rate 98.0 F 90 18 96/56 L 90 Nasal Cannula 1 06/13/22 14:00 06/13/22 19:40 06/13/22 19:40 06/13/22 14:00 06/13/22 19:40 06/13/22 19:40 06/13/22 19:40 FiO2 40 05/26/22 19:15 Oxygen Flow Rate (L/min) 1 Oxygen Delivery Method Nasal Cannula Weight: 97.7 kg Body Mass Index (BMI) 32.6 Intake & Output: Intake and Output for Last 24 Hours 06/11/22 06/12/22 06/13/22 23:59 23:59 23:59 Intake Total 1193.3334 / 1193.3334 1752.6667 / 1752.6667 1160.0001 / 1160.0001 Output Total 8000 / 8000 Balance -6806.6666 / -6806.6666 1752.6667 / 1752.6667 1160.0001 / 1160.0001 Lab / Micro Data Result Diagrams: 06/10/22 18:13 06/11/22 04:19 Labs: Laboratory Results - last 24 hr 06/12/22 23:40: POC Glucose 124 H 06/13/22 06:42: POC Glucose 127 H 06/13/22 11:02: POC Glucose 142 H 06/13/22 16:22: POC Glucose 199 H Micro: Microbiology 06/12/22 08:40 Blood Culture (Wb) - Anticubital Right Blood Culture - Preliminary 06/08/22 12:45 Blood Culture (Wb) - Anticubital Right Blood Culture - Final No growth in 5 days. 06/11/22 13:30 Blood Culture (Wb) - Anticubital Right Blood Culture - Preliminary 06/10/22 10:13 Blood Culture (Wb) - Anticubital Right Blood Culture - Preliminary Meth. resistant Staph. aureus 05/27/22 10:25 Blood Culture (Wb) - Central Line Blood Culture - Final Meth. resistant Staph. aureus 06/06/22 09:24 Blood Culture (Wb) - Right Forearm Blood Culture - Final Meth. resistant Staph. aureus 05/29/22 11:00 Blood Culture (Wb) - Venous Blood Culture - Final Meth. resistant Staph. aureus 05/26/22 Unknown Tissue - Tibial Membrane Gram Stain - Final 05/26/22 Unknown Tissue - Tibial Membrane Wound Culture - Final Meth. resistant Staph. aureus 05/26/22 Unknown Tissue - Tibial Membrane Anaerobic Culture - Final No anaerobic bacteria isolated. 05/26/22 Unknown Tissue - Femoral Membrane Gram Stain - Final 05/26/22 Unknown Tissue - Femoral Membrane Wound Culture - Final Meth. resistant Staph. aureus 05/26/22 Unknown Tissue - Femoral Membrane Anaerobic Culture - Final No anaerobic bacteria isolated. 05/26/22 Unknown Tissue - Suprapatellar Pouch Gram Stain - Final 05/26/22 Unknown Tissue - Suprapatellar Pouch Wound Culture - Final Meth. resistant Staph. aureus 05/26/22 Unknown Tissue - Suprapatellar Pouch Anaerobic Culture - Final No anaerobic bacteria isolated. 05/26/22 21:25 Blood Culture (Wb) - Anticubital Right Blood Culture - Final Meth. resistant Staph. aureus 05/25/22 19:46 Blood Culture (Wb) - Anticubital Right Blood Culture - Final Meth. resistant Staph. aureus 05/25/22 14:35 Fluid - Synovial (joint) Gram Stain - Final 05/25/22 14:35 Fluid - Synovial (joint) Body Fluid Culture - Final Meth. resistant Staph. aureus 05/25/22 14:35 Fluid - Synovial (joint) Anaerobic Culture - Final No anaerobic bacteria isolated. 05/25/22 10:00 Blood Culture (Wb) - Right Hand Blood Culture - Final Meth. resistant Staph. aureus 05/24/22 19:25 Sputum, Expectorated/Coughed Gram Stain - Final 05/24/22 19:25 Sputum, Expectorated/Coughed Respiratory Culture - Final Meth. resistant Staph. aureus 05/23/22 18:16 Blood Culture (Wb) - Right Forearm Blood Culture - Final Meth. resistant Staph. aureus 06/07/22 11:52 Blood Culture (Wb) - Anticubital Right Blood Culture - Final Staphylococcus aureus 06/05/22 09:15 Blood Culture (Wb) - Right Forearm Blood Culture - Final Staphylococcus aureus 06/03/22 09:50 Blood Culture (Wb) - Anticubital Right Blood Culture - Final Staphylococcus aureus 06/04/22 06:00 Blood Culture (Wb) - Right Forearm Blood Culture - Final Staphylococcus aureus 06/07/22 06:47 Nasal Secretion SARS-CoV-2 Antigen (Rapid) - Final 06/02/22 12:48 Blood Culture (Wb) - Dialysis/Fistula Blood Culture - Final Meth. resistant Staph. aureus 06/01/22 06:47 Blood Culture (Wb) - Right Wrist Blood Culture - Final Staphylococcus aureus 05/31/22 11:53 Blood Culture (Wb) - Anticubital Right Blood Culture - Final Staphylococcus aureus 05/31/22 11:45 Blood Culture (Wb) - Anticubital Right Blood Culture - Final Staphylococcus aureus 05/23/22 19:10 Blood Culture (Wb) - Anticubital Right Bacteria Detection (PCR) - Final Staphylococcus aureus mecA Resistance Marker 05/23/22 19:10 Blood Culture (Wb) - Anticubital Right Blood Culture - Final Meth. resistant Staph. aureus 05/23/22 22:40 Mucosa - Nasopharyngeal Respiratory Panel (PCR) - Final Rhythm Strip Rhythm Strip: Junctional Rate: 63 Physical Exam Narrative Alert and oriented x3, no apparent distress S1, S2 RRR Lungs sounds clear anteriorly. No wheezes, rhonchi, rales noted Abdomen soft, round, nontender Trace edema noted to bilateral lower legs Left upper arm AV fistula positive thrill and bruit. Edema noted to left arm but edema has improved, skin wrinkled Const alert, oriented x3, no apparent distress and average body habitus Orientation / Consciousness: oriented to person and oriented to place HEENT normocephalic Neck no lymphadenopathy Resp no use of accessory muscles and clear to auscultation bilaterally Cardio regular rate GI non-tender Auscultation: normoactive bowel sounds Assessment & Plan Assessment/Plan (1) ESRD (end stage renal disease): PLAN: Impression/Plan: ESRD. - On hemodialysis Tuesday, Tuesday, Tuesday schedule. -No need for dialysis today. We will plan on dialyzing the patient again tomorrow. Left arm edema, the same side as fistula. No signs of infection. Elevate left arm as tolerated. 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 Anemia of chronic disease; received Epogen with HD 06/09. Will continue to monitor hgb trends. Epogen ordered with HD. Hyponatremia. Serum sodium is moderately low at 128 mmol/L. There is no worrisome symptoms of hyponatremia. Serum sodium should stabilize with dialysis. We will continue to monitor serum sodium. Persistent MRSA bacteremia. Antimicrobial as per infectious disease and hospital medicine service. Repeat blood culture is still growing bacteria. Discussed with Dr. Ellsworth, and the patient will be transferred to tertiary care center for further investigation and treatment. Chronic hypotension, continue midodrine 20 mg 3 times daily. Patient is asymptomatic during dialysis with low BP and able to tolerate fluid removal with dialysis. 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 -Continue Renvela, phosphorus 6.1. Nephrology plan discussed with Dr. Ellsworth (2) MRSA bacteremia:
[2022-06-13] MEDS: Atorvastatin Calcium 40 MG Tablet PO (22:41)
[2022-06-13] MEDS: Insulin Glargine-YFGN 100 UNIT/ML Pen SC (22:42)
[2022-06-13] MEDS: Latanoprost 0.005% 1 Bottle 1 DRP OPHTHALMIC (22:43)
[2022-06-13 23:25] LABS: Bedside Glucose 143 mg/dL (74-106)
[2022-06-14] VITALS (7 sets, daily range): BP systolic 95–127; BP diastolic 41–90; PULSE 56–67; RESP 16–20; TEMP 35.5–36.4; O2SAT 92–100
[2022-06-14] MEDS: 0.9% Saline Lock 10 ML Syringe IV ×2 (06:06→18:33)
[2022-06-14 06:40] LABS: Bedside Glucose 117 mg/dL (74-106)
[2022-06-14] MEDS: Budesonide Respules 0.5 MG/2 ML AMPUL.NEB. INHALATION ×2 (07:28→19:57)
[2022-06-14] MEDS: Tamsulosin HCl 0.4 MG Capsule PO (07:40)
[2022-06-14] MEDS: APIXABAN 2.5 MG TABLET (WCH) PO ×2 (07:40→21:19)
[2022-06-14] MEDS: Multivitamins,Therapeutic Tablet 1 TABLET PO (07:40)
[2022-06-14] MEDS: Aspirin E.C. 81 MG Tablet PO (07:40)
[2022-06-14] MEDS: SEVELAMER CARBONATE 800 MG TABLET PO ×3 (07:40→17:10)
[2022-06-14] MEDS: Midodrine HCl 5 MG Tablet 20 MG PO ×3 (07:40→17:10)
[2022-06-14] MEDS: Amiodarone 200 MG Tablet PO (07:40)
[2022-06-14] MEDS: Menthol/Lanolin/Calamine/Znox 113 GM Tube 1 APPLIC TOPICAL ×2 (07:41→21:19)
--- NOTE | 2022-06-14 07:42 | CASEMGMT ---
SW sent updates to [facility] via [employer]. SW sent PT from 06-12 and 06-13, physicians notes from 06-12 and 06-13, current inpatient med list, OT note from 06-12, and preliminary blood culture results from 06-12. SW did let them know that OT did not see on 06-13 that is why there is no note and that there have been no further labs since 06-11. Emerald Nuñez TRA[employer]
[2022-06-14] MEDS: Psyllium 1 PACKET PO (12:39)
[2022-06-14 12:51] LABS: Bedside Glucose 158 mg/dL (74-106)
--- NOTE | 2022-06-14 13:19 | PCM.PN.ID ---
Physical Exam Narrative Bcx still rapidly turning (+). Knee is improving, less sore. No fever, no abd pain. Midline placed 06/12 due to lack of access. Const alert and no apparent distress Resp normal air movement and clear to auscultation bilaterally Cardio regular rate and regular rhythm GI soft to palpation, non-tender and non-distended Extremity General Extremity: edema Skin no rashes or lesions noted ID ID: Route of nutrition/ use of supplements: [] Nutritional Intake: [] IV Site: [] Melendez Catheter: [] Assessment & Plan Assessment/Plan (1) ESRD (end stage renal disease): (2) Pneumonia: (3) MRSA bacteremia: PLAN: Unclear source, could be from fistula procedure, gangrene of L hallux, or pneumonia. - TTE showed no veg, EF 30% - repeat bcx today to monitor for clearance - sputum cx with MRSA - complicated by R knee PJI - OR 05/26/[address] Alfaro. - no osteo/discitis seen on noncontrast t-spine mri. - bcx showing some vanc JUNIOR creep upwards. 05/31/22 changed to dapto/ceftaroline. Spoke with micro lab, dapto was susc, sending out for ceftaroline testing. - BRANDON 06/07 neg. - Bcx still turning (+) within 24-48h. Tagged wbc scan done. 2cm collection seen in abd and R knee also lit up. At this point, recommend transfer for further surgical eval. will follow, d/w Dr. Hays and family. (4) Infection of total right knee replacement:
--- NOTE | 2022-06-14 13:31 | CASEMGMT ---
SW notified [facility] via [facility] that patient is being transferred to another hospital and SW will let them know where when CORTNEY finds out. Emerald Nuñez [employer]IAISON
--- NOTE | 2022-06-14 16:30 | PN.HOSP_ITS ---
Reason for Visit Reason for Visit: Diagnoses Methicillin resistant Staphylococcus aureus infection as the cause of diseases classified elsewhere (05/23/22) Essential (primary) hypertension (05/23/22) Non-ST elevation (NSTEMI) myocardial infarction (05/23/22) Ischemic cardiomyopathy (05/23/22) Longstanding persistent atrial fibrillation (05/23/22) Peripheral vascular disease, unspecified (05/23/22) Pneumonia, unspecified organism (05/23/22) Non-pressure chronic ulcer of other part of left foot with fat layer exposed () Chronic kidney disease, stage 4 (severe) (05/23/22) End stage renal disease (05/23/22) Bacteremia (05/23/22) Infection and inflammatory reaction due to internal right knee prosthesis, initial encounter (05/23/22) Presence of coronary angioplasty implant and graft (05/23/22) Subjective Subjective Patient seen and examined. His was by his bedside. He had no active complaints and had an uneventful night. Review of systems otherwise negative. Objective Data Objective Data Vital Signs: Vital Signs Temp Pulse Resp BP Pulse Ox O2 Del Method O2 Flow Rate 97 F L 59 L 20 H 105/41 L 100 Room Air 1.5 06/14/22 06:00 06/14/22 07:29 06/14/22 07:29 06/14/22 06:00 06/14/22 07:29 06/14/22 14:26 06/14/22 07:53 FiO2 40 05/26/22 19:15 Oxygen Flow Rate (L/min) 1.5 Oxygen Delivery Method Room Air Weight: 220 lb 10.923 oz Body Mass Index (BMI) 32.6 Intake & Output: Intake and Output for Last 24 Hours 06/12/22 06/13/22 06/14/22 23:59 23:59 23:59 Intake Total 1752.6667 / 1752.6667 1266.6668 / 1266.6668 106.6667 / 106.6667 Balance 1752.6667 / 1752.6667 1266.6668 / 1266.6668 106.6667 / 106.6667 Lab / Micro Data Result Diagrams: 06/10/22 18:13 06/11/22 04:19 Labs: Laboratory Results - last 24 hr 06/13/22 16:22: POC Glucose 199 H 06/13/22 22:38: POC Glucose 143 H 06/14/22 06:10: POC Glucose 117 H 06/14/22 12:29: POC Glucose 158 H Micro: Microbiology 06/12/22 08:40 Blood Culture (Wb) - Anticubital Right Blood Culture - Preliminary No growth in 48 hours. 06/11/22 13:30 Blood Culture (Wb) - Anticubital Right Blood Culture - Preliminary Staphylococcus aureus 06/08/22 12:45 Blood Culture (Wb) - Anticubital Right Blood Culture - Final No growth in 5 days. 06/10/22 10:13 Blood Culture (Wb) - Anticubital Right Blood Culture - Preliminary Meth. resistant Staph. aureus 05/27/22 10:25 Blood Culture (Wb) - Central Line Blood Culture - Final Meth. resistant Staph. aureus 06/06/22 09:24 Blood Culture (Wb) - Right Forearm Blood Culture - Final Meth. resistant Staph. aureus 05/29/22 11:00 Blood Culture (Wb) - Venous Blood Culture - Final Meth. resistant Staph. aureus 05/26/22 Unknown Tissue - Tibial Membrane Gram Stain - Final 05/26/22 Unknown Tissue - Tibial Membrane Wound Culture - Final Meth. resistant Staph. aureus 05/26/22 Unknown Tissue - Tibial Membrane Anaerobic Culture - Final No anaerobic bacteria isolated. 05/26/22 Unknown Tissue - Femoral Membrane Gram Stain - Final 05/26/22 Unknown Tissue - Femoral Membrane Wound Culture - Final Meth. resistant Staph. aureus 05/26/22 Unknown Tissue - Femoral Membrane Anaerobic Culture - Final No anaerobic bacteria isolated. 05/26/22 Unknown Tissue - Suprapatellar Pouch Gram Stain - Final 05/26/22 Unknown Tissue - Suprapatellar Pouch Wound Culture - Final Meth. resistant Staph. aureus 05/26/22 Unknown Tissue - Suprapatellar Pouch Anaerobic Culture - Final No anaerobic bacteria isolated. 05/26/22 21:25 Blood Culture (Wb) - Anticubital Right Blood Culture - Final Meth. resistant Staph. aureus 05/25/22 19:46 Blood Culture (Wb) - Anticubital Right Blood Culture - Final Meth. resistant Staph. aureus 05/25/22 14:35 Fluid - Synovial (joint) Gram Stain - Final 05/25/22 14:35 Fluid - Synovial (joint) Body Fluid Culture - Final Meth. resistant Staph. aureus 05/25/22 14:35 Fluid - Synovial (joint) Anaerobic Culture - Final No anaerobic bacteria isolated. 05/25/22 10:00 Blood Culture (Wb) - Right Hand Blood Culture - Final Meth. resistant Staph. aureus 05/24/22 19:25 Sputum, Expectorated/Coughed Gram Stain - Final 05/24/22 19:25 Sputum, Expectorated/Coughed Respiratory Culture - Final Meth. resistant Staph. aureus 05/23/22 18:16 Blood Culture (Wb) - Right Forearm Blood Culture - Final Meth. resistant Staph. aureus 06/07/22 11:52 Blood Culture (Wb) - Anticubital Right Blood Culture - Final Staphylococcus aureus 06/05/22 09:15 Blood Culture (Wb) - Right Forearm Blood Culture - Final Staphylococcus aureus 06/03/22 09:50 Blood Culture (Wb) - Anticubital Right Blood Culture - Final Staphylococcus aureus 06/04/22 06:00 Blood Culture (Wb) - Right Forearm Blood Culture - Final Staphylococcus aureus 06/07/22 06:47 Nasal Secretion SARS-CoV-2 Antigen (Rapid) - Final 06/02/22 12:48 Blood Culture (Wb) - Dialysis/Fistula Blood Culture - Final Meth. resistant Staph. aureus 06/01/22 06:47 Blood Culture (Wb) - Right Wrist Blood Culture - Final Staphylococcus aureus 05/31/22 11:53 Blood Culture (Wb) - Anticubital Right Blood Culture - Final Staphylococcus aureus 05/31/22 11:45 Blood Culture (Wb) - Anticubital Right Blood Culture - Final Staphylococcus aureus 05/23/22 19:10 Blood Culture (Wb) - Anticubital Right Bacteria Detection ( PCR) - Final Staphylococcus aureus mecA Resistance Marker 05/23/22 19:10 Blood Culture (Wb) - Anticubital Right Blood Culture - Final Meth. resistant Staph. aureus 05/23/22 22:40 Mucosa - Nasopharyngeal Respiratory Panel (PCR) - Final Rhythm Strip Rhythm Strip: Junctional Rate: 63 Physical Exam Const alert and oriented x3 Constitutional Narrative: frail HEENT head/scalp atraumatic, moist oral mucous membranes and oropharynx normal Head and Scalp: normocephalic Mouth: oral and palatal mucosa normal Eyes PERRL and EOMs intact bilaterally Neck no lymphadenopathy, supple and no JVD Resp Resp Narrative: mildly diminished breath sounds bibasally, no wheezes or crackles. On room air. Cardio regular rate, regular rhythm, S1 normal heart sound, S2 normal heart sound and no murmurs GI normal to inspection, nondistended, normoactive bowel sounds, soft to palpation, non-tender and non-distended Extremity normal to inspection, full ROM and no clubbing, cyanosis or edema Extremity Narrative: moderate edema of the LUE General Extremity: edema Neuro oriented x3, CN's II-XII intact bilaterally, moves all extremities and no focal motor deficits Sensorium / Orientation: awake and alert Motor Exam: strength 5/5 throughout Psych affect normal Assessment & Plan Assessment/Plan (1) Infection of total right knee replacement: (2) MRSA bacteremia: (3) ESRD (end stage renal disease): PLAN: Plan #MRSA bacteremia * bacteremia has been persistent. Thought to be due to infection of the right knee prosthesis * on IV daptomycin and ceftaroline * has had debridement and washout of the knee already during this admission, which was complicated by hypotension in the OR. * ID and orthopedic surgery on board; both are in agreement that [facility]. * Paitent and only willing to go to [facility] or [facility]. [facility] refused transfer today; patient accepted at [facility] but advised that the wait for a bed may be up to a week or more, per the transfer line. * #MRSA infection of the right knee: as above. #CAD: on aspirin and high intensity statin. #NONSTEMI: on aspirin and high intensity statin. #ESRD: on hemodialysis via LUE fistula. Nephrology on board. On renvela #LUE pseudoaneurysm * has some LUE edema. Had US guided thrombin injection of LUE AVF pseudoaneurysm on 05/17. * stable. * #HYponatremia; stable #Chronic hypotension: on midodrine. #Atrial fibrillation: on amiodarone. On eliquis. DVT prophylaxis: on eliquis Disposition: * Patient accepted at [facility] for possible explantation of the right knee prosthesis. * Wait for the bed and may be up to a week or even more per [facility] transfer line. [facility] refused transfer. #
[2022-06-14 17:36] LABS: Bedside Glucose 92 mg/dL (74-106)
--- NOTE | 2022-06-14 18:51 | DIALYSIS ---
Hemodialysis x2.5 hours completed at 1725 on a 2K bath, tolerated well, UF 2000mL, accessed via CARMENZA AVF using 15G needles, set of blood cultures drawn and sent, access worked well, LUE edematous, needles pulled post tx and stasis achieved without issue
[2022-06-14] MEDS: Atorvastatin Calcium 40 MG Tablet PO (21:19)
[2022-06-14] MEDS: Lactulose 20 GM/30 ML UDC 30 GM PO (21:19)
[2022-06-14] MEDS: Latanoprost 0.005% 1 Bottle 1 DRP OPHTHALMIC (21:20)
[2022-06-14] MEDS: Insulin Glargine-YFGN 100 UNIT/ML Pen SC (21:21)
[2022-06-14 21:50] LABS: Bedside Glucose 124 mg/dL (74-106)
[2022-06-15] VITALS (9 sets, daily range): BP systolic 79–133; BP diastolic 40–100; PULSE 51–86; RESP 18–19; TEMP 35.1–36.1; O2SAT 93–99; BMI 33.4
[2022-06-15 05:30] LABS: Bedside Glucose 83 mg/dL (74-106)
[2022-06-15 05:56] LABS: Absolute Lymphocyte Count 0.29 X10^3/uL (0.83-4.51); Absolute Neutrophil Count 3.8 X10^3/uL (2.0-7.7); Basophil# 0.04 X10^3/uL; Basophil% 0.9 % (0-1); Eosinophil# 0.16 X10^3/uL; Eosinophils% 3.4 % (0-5); Hematocrit 26.8 % (40-54); Lymphocyte # 0.29 X10^3/ul (0.83-4.51); Lymphocyte % 6.2 % (19-41); Mean Corp Hgb Conc 29.9 g/dL (32-36); Mean Corpuscular Hgb 29.6 pg (27.0-32.0); Mean Corpuscular Volume 99.3 fL (80-94); Mean Platelet Vol. 10.3 fl (6.2-12.0); Monocyte# 0.32 X10^3/uL; Monocyte% 6.9 % (0-10); NRBC Flagged by Analyzer 0.6 % (0-5); Neutrophil # 3.81 X10^3/uL (2.7-7.7); Neutrophil % 81.7 % (47-70); POSITIVE DIFFERENTIAL YES; Platelet Count 110 K/mm3 (150-450); RBC Distribution Width CV 17.5 % (11.6-14.6); RBC Distribution Width SD 59.5 fl (35.1-43.9); White Blood Count 4.7 K/mm3 (4.4-11.0)
[2022-06-15 06:22] LABS: Differential Indicated SCAN CRITERIA MET
[2022-06-15 06:36] LABS: Anion Gap 13 (5-15); BUN 33 mg/dL (7-18); BUN/Creat Ratio 7.6 RATIO (10-20); Calcium,Total 8.9 mg/dL (8.5-10.1); Chloride 94 mmol/L (98-107); Creatinine, Serum 4.37 mg/dL (0.70-1.30); EST Glomerular Filtration Rate 14 mL/min (>60); Est Glom Filt Rate - Afr Amer 17 mL/min (>60); Estimated Creatinine Clearance 13.04 ml/min; Glucose 87 mg/dL (74-106); Potassium 3.8 mmol/L (3.5-5.1); Sodium Level 131 mmol/L (136-145)
[2022-06-15 06:54] LABS: Anisocytosis 1+; Hypochromasia 1+; Macrocytosis 1+; Platelet Estimate SLT DEC (ADEQ)
[2022-06-15] MEDS: Budesonide Respules 0.5 MG/2 ML AMPUL.NEB. INHALATION ×2 (07:37→20:19)
[2022-06-15] MEDS: APIXABAN 2.5 MG TABLET (WCH) PO ×2 (08:43→21:07)
[2022-06-15] MEDS: Aspirin E.C. 81 MG Tablet PO (08:43)
[2022-06-15] MEDS: Multivitamins,Therapeutic Tablet 1 TABLET PO (08:43)
[2022-06-15] MEDS: Midodrine HCl 5 MG Tablet 20 MG PO ×3 (08:49→18:03)
[2022-06-15] MEDS: SEVELAMER CARBONATE 800 MG TABLET PO ×3 (08:49→18:03)
[2022-06-15] MEDS: Tamsulosin HCl 0.4 MG Capsule PO (08:50)
[2022-06-15] MEDS: Lactulose 20 GM/30 ML UDC 30 GM PO ×2 (08:50→21:06)
--- NOTE | 2022-06-15 10:50 | CASEMGMT ---
CORTNEY received a call from patient's Leigh Ann. Leigh Ann said they were told last night that [facility] accepted patient, but they were never told a bed or anything. CORTNEY explained that is because [facility] accepted patient, but they do not have any available beds right now. CORTNEY let Leigh Ann know [facility] told [facility] that it could be up to a week before they would have anything available. CORTNEY told Leigh Ann they could try other facilities and it may happen sooner. CORTNEY let Leigh Ann know that [facility] usually calls [facility] and checks to see if anything has changed in bed availability. At this time there are no beds. Leigh Ann said she will talk with patient and see what he would like to do. Emerald Nuñez [facility] [place]
--- NOTE | 2022-06-15 11:17 | PN.HOSP_ITS ---
Reason for Visit Reason for Visit: Diagnoses Methicillin resistant Staphylococcus aureus infection as the cause of diseases classified elsewhere (05/23/22) Essential (primary) hypertension (05/23/22) Non-ST elevation (NSTEMI) myocardial infarction (05/23/22) Ischemic cardiomyopathy (05/23/22) Longstanding persistent atrial fibrillation (05/23/22) Peripheral vascular disease, unspecified (05/23/22) Pneumonia, unspecified organism (05/23/22) Non-pressure chronic ulcer of other part of left foot with fat layer exposed () Chronic kidney disease, stage 4 (severe) (05/23/22) End stage renal disease (05/23/22) Bacteremia (05/23/22) Infection and inflammatory reaction due to internal right knee prosthesis, initial encounter (05/23/22) Presence of coronary angioplasty implant and graft (05/23/22) Subjective Subjective Patient seen and examined. He had no active complaints today and had an uneventful night. Review of systems otherwise negative. Patient informed that he had been accepted at [facility] but will be a long wait for a bed and I recommended that we try other places for transfer. Patient states that he wants to go to the [facility] and is prepared to wait for to get a bed. He has remained hemodynamically stable. Objective Data Objective Data Vital Signs: Vital Signs Temp Pulse Resp BP Pulse Ox O2 Del Method O2 Flow Rate 97.0 F L 86 18 79/43 L 99 Nasal Cannula 1.5 06/15/22 08:37 06/15/22 08:37 06/15/22 08:37 06/15/22 08:37 06/15/22 08:37 06/15/22 09:33 06/15/22 08:37 FiO2 40 05/26/22 19:15 Oxygen Flow Rate (L/min) 1.5 Oxygen Delivery Method Nasal Cannula Weight: 219 lb 12.814 oz Body Mass Index (BMI) 33.4 Intake & Output: Intake and Output for Last 24 Hours 06/13/22 06/14/22 06/15/22 23:59 23:59 23:59 Intake Total 1266.6668 / 1266.6668 279.3334 / 279.3334 106.6667 / 106.6667 Output Total 4000 / 4000 0 / 0 Balance 1266.6668 / 1266.6668 -3720.6666 / -3720.6666 106.6667 / 106.6667 Lab / Micro Data Result Diagrams: 06/15/22 05:27 06/15/22 05:27 Labs: Laboratory Results - last 24 hr 06/14/22 12:29: POC Glucose 158 H 06/14/22 17:12: POC Glucose 92 06/14/22 21:13: POC Glucose 124 H 06/15/22 05:09: POC Glucose 83 06/15/22 05:27: WBC 4.7, RBC 2.70 L, Hgb 8.0 L, Hct 26.8 L, MCV 99.3 H, MCH 29.6, MCHC 29.9 L, RDW Std Deviation 59.5 H, RDW Coeff of Moni 17.5 H, Plt Count 110 L, MPV 10.3, Immature Gran % (Auto) 0.900, Neut % (Auto) 81.7 H, Lymph % (Auto) 6.2 L, [place] % (Auto) 6.9, Eos % (Auto) 3.4, Baso % (Auto) 0.9, Absolute Neuts (auto) 3.8, Absolute Lymphs (auto) 0.29 L, Nucleated RBC % 0.6, Platelet Estimate SLT DEC, Hypochromasia 1+, Anisocytosis 1+, Macrocytosis 1+ 06/15/22 05:27: Sodium 131 L, Potassium 3.8, Chloride 94 L, Carbon Dioxide 24.0, Anion Gap 13, BUN 33 H, Creatinine 4.37 H, Estim Creat Clear Calc 13.04, Est GFR (MDRD) Af Amer 17 L, Est GFR (MDRD) Non-Af 14 L, BUN/Creatinine Ratio 7.6 L, Glucose 87, Calcium 8.9 Micro: Microbiology 06/12/22 08:40 Blood Culture (Wb) - Anticubital Right Blood Culture - Final Meth. resistant Staph. aureus 06/10/22 10:13 Blood Culture (Wb) - Anticubital Right Blood Culture - Final Meth. resistant Staph. aureus 06/11/22 13:30 Blood Culture (Wb) - Anticubital Right Blood Culture - P reliminary Staphylococcus aureus 06/08/22 12:45 Blood Culture (Wb) - Anticubital Right Blood Culture - Final No growth in 5 days. 05/27/22 10:25 Blood Culture (Wb) - Central Line Blood Culture - Final Meth. resistant Staph. aureus 06/06/22 09:24 Blood Culture (Wb) - Right Forearm Blood Culture - Final Meth. resistant Staph. aureus 05/29/22 11:00 Blood Culture (Wb) - Venous Blood Culture - Final Meth. resistant Staph. aureus 05/26/22 Unknown Tissue - Tibial Membrane Gram Stain - Final 05/26/22 Unknown Tissue - Tibial Membrane Wound Culture - Final Meth. resistant Staph. aureus 05/26/22 Unknown Tissue - Tibial Membrane Anaerobic Culture - Final No anaerobic bacteria isolated. 05/26/22 Unknown Tissue - Femoral Membrane Gram Stain - Final 05/26/22 Unknown Tissue - Femoral Membrane Wound Culture - Final Meth. resistant Staph. aureus 05/26/22 Unknown Tissue - Femoral Membrane Anaerobic Culture - Final No anaerobic bacteria isolated. 05/26/22 Unknown Tissue - Suprapatellar Pouch Gram Stain - Final 05/26/22 Unknown Tissue - Suprapatellar Pouch Wound Culture - Final Meth. resistant Staph. aureus 05/26/22 Unknown Tissue - Suprapatellar Pouch Anaerobic Culture - Final No anaerobic bacteria isolated. 05/26/22 21:25 Blood Culture (Wb) - Anticubital Right Blood Culture - Final Meth. resistant Staph. aureus 05/25/22 19:46 Blood Culture (Wb) - Anticubital Right Blood Culture - Final Meth. resistant Staph. aureus 05/25/22 14:35 Fluid - Synovial (joint) Gram Stain - Final 05/25/22 14:35 Fluid - Synovial (joint) Body Fluid Culture - Final Meth. resistant Staph. aureus 05/25/22 14:35 Fluid - Synovial (joint) Anaerobic Culture - Final No anaerobic bacteria isolated. 05/25/22 10:00 Blood Culture (Wb) - Right Hand Blood Culture - Final Meth. resistant Staph. aureus 05/24/22 19:25 Sputum, Expectorated/Coughed Gram Stain - Final 05/24/22 19:25 Sputum, Expectorated/Coughed Respiratory Culture - Final Meth. resistant Staph. aureus 05/23/22 18:16 Blood Culture (Wb) - Right Forearm Blood Culture - Final Meth. resistant Staph. aureus 06/07/22 11:52 Blood Culture (Wb) - Anticubital Right Blood Culture - Final Staphylococcus aureus 06/05/22 09:15 Blood Culture (Wb) - Right Forearm Blood Culture - Final Staphylococcus aureus 06/03/22 09:50 Blood Culture (Wb) - Anticubital Right Blood Culture - Final Staphylococcus aureus 06/04/22 06:00 Blood Culture (Wb) - Right Forearm Blood Culture - Final Staphylococcus aureus 06/07/22 06:47 Nasal Secretion SARS-CoV-2 Antigen (Rapid) - Final 06/02/22 12:48 Blood Culture (Wb) - Dialysis/Fistula Blood Culture - Final Meth. resistant Staph. aureus 06/01/22 06:47 Blood Culture (Wb) - Right Wrist Blood Culture - Final Staphylococcus aureus 05/31/22 11:53 Blood Culture (Wb) - Anticubital Right Blood Culture - Final Staphylococcus aureus 05/31/22 11:45 Blood Culture (Wb) - Anticubital Right Blood Culture - Final Staphylococcus aureus 05/23/22 19:10 Blood Culture (Wb) - Anticubital Right Bacteria Detection (PCR) - Final Staphylococcus aureus mecA Resistance Marker 05/23/22 19:10 Blood Culture (Wb) - Anticubital Right Blood Culture - Final Meth. resistant Staph. aureus 05/23/22 22:40 Mucosa - Nasopharyngeal Respiratory Panel (PCR) - Final Rhythm Strip Rhythm Strip: Junctional Rate: 63 Physical Exam Const alert, oriented x3 and no apparent distress Constitutional Narrative: frail HEENT normocephalic, head/scalp atraumatic, moist oral mucous membranes and oropharynx normal Head and Scalp: normocephalic Mouth: dry mucous membranes Eyes PERRL, EOMs intact bilaterally and conjunctivae normal Neck no lymphadenopathy, supple and no JVD Resp normal respiratory effort, no retractions, no use of accessory muscles and clear to auscultation bilaterally Resp Narrative: mildly diminished breath sounds bibasally, no wheezes or crackles. On room air. Cardio regular rate, regular rhythm, S1 normal heart sound, S2 normal heart sound and no murmurs GI normal to inspection, nondistended, normoactive bowel sounds, soft to palpation, non-tender and non-distended Extremity normal to inspection, full ROM and no clubbing, cyanosis or edema Extremity Narrative: moderate edema of the LUE has improved markedly. LUE fistula with good thrill General Extremity: edema Neuro oriented x3, CN's II-XII intact bilaterally, moves all extremities and no focal motor deficits Sensorium / Orientation: awake, alert, oriented to person, oriented to place and oriented to time Motor Exam: strength 5/5 throughout Psych affect normal Psych Narrative: Cooperative Assessment & Plan Assessment/Plan (1) Infection of total right knee replacement: (2) MRSA bacteremia: (3) ESRD (end stage renal disease): PLAN: Plan #MRSA bacteremia * bacteremia has been persistent. Thought to be due to infection of the right knee prosthesis * on IV daptomycin and ceftaroline * has had debridement and washout of the knee already during this admission, which was complicated by hypotension in the OR. * ID and orthopedic surgery on board; both are in agreement that patient should be [facility]antation of the prosthesis. * Paitent and only willing to go to [facility] or [facility]. [facility] refused transfer today; patient accepted at [facility] but advised that the wait for a bed may be up to a week or more, per the transfer line. Patient still willing to wait to be transferred to [facility], no matter how long it takes, and is not interested in trying other facilities * #MRSA infection of the right knee: as above. #CAD: on aspirin and high intensity statin. #NONSTEMI: on aspirin and high intensity statin. #ESRD: on hemodialysis via LUE fistula. Nephrology on board. On renvela #LUE pseudoaneurysm * has some LUE edema. Had US guided thrombin injection of LUE AVF pseudoaneurysm on 05/17. * stable. * #HYponatremia; stable #Anemia * this is chronic, and likely due to ESRD. hb is 8 today. Has been ranging between 8-10 * Will trend Hb * #Chronic hypotension: on midodrine. #Atrial fibrillation: on amiodarone. On eliquis. DVT prophylaxis: on eliquis Disposition: * Patient accepted at [facility] for possible explantation of the right knee prosthesis. * Wait for the bed and may be up to a week or even more per [facility] transfer line. [facility] refused transfer. Total time spent on reviewing patient's chart, seeing patient, evaluation and management and documentation: 27 mins # Charges/Coding Visit Charges Inpatient E&M: 32643 [facility] Hosp L2
[2022-06-15 11:45] LABS: Bedside Glucose 127 mg/dL (74-106)
[2022-06-15 11:47] LABS: AST(SGOT) 38 U/L (15-37); Alanine Aminotransfer ALT/SGPT 26 U/L (16-61); Albumin, Serum 2.3 g/dL (3.2-5.0); Alkaline Phosphatase 176 U/L (45-117); Bilirubin, Direct 0.15 mg/dL (0.00-0.30); CPK Total, Creatine Kinase 223 U/L (39-308); Globulin 3.9 g/dL (2.2-4.2); Protein, Total 6.2 g/dL (6.4-8.2)
--- NOTE | 2022-06-15 11:58 | CASEMGMT ---
SW sent updates to [facility] and let them know patient was accepted at [facility] main campus, but it could be up to a week before a bed becomes available. Emerald Nuñez [employer] TECHNICIAN [place]
[2022-06-15] MEDS: Menthol/Lanolin/Calamine/Znox 113 GM Tube 1 APPLIC TOPICAL ×2 (12:42→21:05)
--- NOTE | 2022-06-15 13:31 | CASEMGMT ---
CORTNEY received a voice mail from patient's Leigh Ann. Leigh Ann said they will wait on a bed at [facility]. Leigh Ann said hopefully there will be a bed tomorrow. Emerald REECE
[2022-06-15 17:01] LABS: Bedside Glucose 126 mg/dL (74-106)
[2022-06-15] MEDS: Psyllium 1 PACKET PO (21:07)
[2022-06-15] MEDS: Latanoprost 0.005% 1 Bottle 1 DRP OPHTHALMIC (21:07)
[2022-06-15] MEDS: Insulin Glargine-YFGN 100 UNIT/ML Pen SC (21:18)
[2022-06-15] MEDS: Atorvastatin Calcium 40 MG Tablet PO (21:18)
[2022-06-15] MEDS: Insulin Lispro 100 UNIT/ML INSULN.PEN SC (21:18)
[2022-06-15 22:56] LABS: Bedside Glucose 160 mg/dL (74-106)
[2022-06-16] VITALS (11 sets, daily range): BP systolic 63–125; BP diastolic 21–98; PULSE 57–85; RESP 16–18; TEMP 35.6–36.3; O2SAT 97–100
[2022-06-16 06:50] LABS: Absolute Lymphocyte Count 0.35 X10^3/uL (0.83-4.51); Absolute Neutrophil Count 3.8 X10^3/uL (2.0-7.7); Basophil# 0.04 X10^3/uL; Basophil% 0.8 % (0-1); Eosinophil# 0.17 X10^3/uL; Eosinophils% 3.6 % (0-5); Hematocrit 25.9 % (40-54); Hemoglobin 8.1 g/dL (13.0-16.5); Lymphocyte # 0.35 X10^3/ul (0.83-4.51); Lymphocyte % 7.4 % (19-41); Mean Corp Hgb Conc 31.3 g/dL (32-36); Mean Corpuscular Hgb 30.6 pg (27.0-32.0); Mean Corpuscular Volume 97.7 fL (80-94); Mean Platelet Vol. 10.2 fl (6.2-12.0); Monocyte# 0.35 X10^3/uL; Monocyte% 7.4 % (0-10); NRBC Flagged by Analyzer 0 % (0-5); Neutrophil # 3.78 X10^3/uL (2.7-7.7); POSITIVE DIFFERENTIAL YES; Platelet Count 101 K/mm3 (150-450); RBC Distribution Width CV 17.8 % (11.6-14.6); RBC Distribution Width SD 60.2 fl (35.1-43.9); Red Blood Count 2.65 M/mm3 (4.6-6.2); White Blood Count 4.7 K/mm3 (4.4-11.0)
[2022-06-16 06:51] LABS: Differential Indicated SCAN CRITERIA MET
[2022-06-16 07:06] LABS: Bedside Glucose 96 mg/dL (74-106)
[2022-06-16 07:20] LABS: BUN 45 mg/dL (7-18); Creatinine, Serum 5.19 mg/dL (0.70-1.30); EST Glomerular Filtration Rate 11 mL/min (>60); Estimated Creatinine Clearance 10.98 ml/min; Glucose 96 mg/dL (74-106)
[2022-06-16 07:21] LABS: Anion Gap 11 (5-15); BUN/Creat Ratio 8.7 RATIO (10-20); Calcium,Total 9.5 mg/dL (8.5-10.1); Chloride 94 mmol/L (98-107); Est Glom Filt Rate - Afr Amer 14 mL/min (>60); Potassium 3.8 mmol/L (3.5-5.1); Sodium Level 131 mmol/L (136-145)
--- NOTE | 2022-06-16 08:29 | NURSING ---
I spoke with Lashonda at [facility] transfer line she stated there are no beds as on this time. She couldn't give me a time frame as to when they will get a bed and it will depend on d/c.
--- NOTE | 2022-06-16 08:47 | CASEMGMT ---
Updates were sent to [facility]. Emerald Nuñez [employer] ST[employer] STITCHER
--- NOTE | 2022-06-16 09:23 | PCM.PROGNOTE ---
Subjective Subjective 82-year-old male seen bedside receiving hemodialysis. Denies constitutional symptoms at current. Denies acute pain to bilateral limbs. No new complaints at this time. Objective Data Objective Data Vital Signs: Vital Signs Temp Pulse Resp BP Pulse Ox O2 Del Method O2 Flow Rate 97.0 F L 60 18 99/62 100 CPAP 1 06/16/22 04:44 06/16/22 04:44 06/16/22 04:44 06/16/22 04:44 06/16/22 04:50 06/16/22 04:50 06/15/22 20:57 FiO2 40 05/26/22 19:15 Oxygen Flow Rate (L/min) 1 Oxygen Delivery Method CPAP Weight: 99.7 kg Body Mass Index (BMI) 33.4 Intake & Output: Intake and Output for Last 24 Hours 06/14/22 06/15/22 06/16/22 23:59 23:59 23:59 Intake Total 279.3334 / 279.3334 1090.0001 / 1090.0001 106.6667 / 106.6667 Output Total 4000 / 4000 0 / 0 1999 / 1999 Balance -3720.6666 / -3720.6666 1090.0001 / 1090.0001 -1893.3333 / -1893.3333 Lab / Micro Data Result Diagrams: 06/16/22 06:30 06/16/22 06:30 Labs: Laboratory Results - last 24 hr 06/15/22 05:27: Total Bilirubin 0.40, Direct Bilirubin 0.15, AST 38 H, ALT 26, Alkaline Phosphatase 176 H, Total Creatine Kinase 223, Total Protein 6.2 L, Albumin 2.3 L, Globulin 3.9 06/15/22 11:24: POC Glucose 127 H 06/15/22 16:39: POC Glucose 126 H 06/15/22 21:17: POC Glucose 160 H 06/16/22 06:30: WBC 4.7, RBC 2.65 L, Hgb 8.1 L, Hct 25.9 L, MCV 97.7 H, MCH 30.6, MCHC 31.3 L, RDW Std Deviation 60.2 H, RDW Coeff of Moni 17.8 H, Plt Count 101 L, MPV 10.2, Immature Gran % (Auto) 0.800, Neut % (Auto) 80.0 H, Lymph % (Auto) 7.4 L, [place] % (Auto) 7.4, Eos % (Auto) 3.6, Baso % (Auto) 0.8, Absolute Neuts (auto) 3.8, Absolute Lymphs (auto) 0.35 L, Nucleated RBC % 0 06/16/22 06:30: Sodium 131 L, Potassium 3.8, Chloride 94 L, Carbon Dioxide 26.0, Anion Gap 11, BUN 45 H, Creatinine 5.19 H, Estim Creat Clear Calc 10.98, Est GFR (MDRD) Af Amer 14 L, Est GFR (MDRD) Non-Af 11 L, BUN/Creatinine Ratio 8.7 L, Glucose 96, Calcium 9.5 06/16/22 06:38: POC Glucose 96 Micro: Microbiology 06/14/22 14:30 Blood Culture (Wb) - Dialysis/Fistula Blood Culture - Preliminary Staphylococcus aureus 06/12/22 08:40 Blood Culture (Wb) - Anticubital Right Blood Culture - Final Meth. resistant Staph. aureus 06/10/22 10:13 Blood Culture (Wb) - Anticubital Right Blood Culture - Final Meth. resistant Staph. aureus 06/11/22 13:30 Blood Culture (Wb) - Anticubital Right Blood Culture - Preliminary Staphylococcus aureus 06/08/22 12:45 Blood Culture (Wb) - Anticubital Right Blood Culture - Final No growth in 5 days. 05/27/22 10:25 Blood Culture (Wb) - Central Line Blood Culture - Final Meth. resistant Staph. aureus 06/06/22 09:24 Blood Culture (Wb) - Right Forearm Blood Culture - Final Meth. resistant Staph. aureus 05/29/22 11:00 Blood Culture (Wb) - Venous Blood Culture - Final Meth. resistant Staph. aureus 05/26/22 Unknown Tissue - Tibial Membrane Gram Stain - Final 05/26/22 Unknown Tissue - Tibial Membrane Wound Culture - Final Meth. resistant Staph. aureus 05/26/22 Unknown Tissue - Tibial Membrane Anaerobic Culture - Final No anaerobic bacteria isolated. 05/26/22 Unknown Tissue - Femoral Membrane Gram Stain - Final 05/26/22 Unknown Tissue - Femoral Membrane Wound Culture - Final Meth. resistant Staph. aureus 05/26/22 Unknown Tissue - Femoral Membrane Anaerobic Culture - Final No anaerobic bacteria isolated. 05/26/22 Unknown Tissue - Suprapatellar Pouch Gram Stain - Final 05/26/22 Unknown Tissue - Suprapatellar Pouch Wound Culture - Final Meth. resistant Staph. aureus 05/26/22 Unknown Tissue - Suprapatellar Pouch Anaerobic Culture - Final No anaerobic bacteria isolated. 05/26/22 21:25 Blood Culture (Wb) - Anticubital Right Blood Culture - Final Meth. resistant Staph. aureus 05/25/22 19:46 Blood Culture (Wb) - Anticubital Right Blood Culture - Final Meth. resistant Staph. aureus 05/25/22 14:35 Fluid - Synovial (joint) Gram Stain - Final 05/25/22 14:35 Fluid - Synovial (joint) Body Fluid Culture - Final Meth. resistant Staph. aureus 05/25/22 14:35 Fluid - Synovial (joint) Anaerobic Culture - Final No anaerobic bacteria isolated. 05/25/22 10:00 Blood Culture (Wb) - Right Hand Blood Culture - Final Meth. resistant Staph. aureus 05/24/22 19:25 Sputum, Expectorated/Coughed Gram Stain - Final 05/24/22 19:25 Sputum, Expectorated/Coughed Respiratory Culture - Final Meth. resistant Staph. aureus 05/23/22 18:16 Blood Culture (Wb) - Right Forearm Blood Culture - Final Meth. resistant Staph. aureus 06/07/22 11:52 Blood Culture (Wb) - Anticubital Right Blood Culture - Final Staphylococcus aureus 06/05/22 09:15 Blood Culture (Wb) - Right Forearm Blood Culture - Final Staphylococcus aureus 06/03/22 09:50 Blood Culture (Wb) - Anticubital Right Blood Culture - Final Staphylococcus aureus 06/04/22 06:00 Blood Culture (Wb) - Right Forearm Blood Culture - Final Staphylococcus aureus 06/07/22 06:47 Nasal Secretion SARS-CoV-2 Antigen (Rapid) - Final 06/02/22 12:48 Blood Culture (Wb) - Dialysis/Fistula Blood Culture - Final Meth. resistant Staph. aureus 06/01/22 06:47 Blood Culture (Wb) - Right Wrist Blood Culture - Final Staphylococcus aureus 05/31/22 11:53 Blood Culture (Wb) - Anticubital Right Blood Culture - Final Staphylococcus aureus 05/31/22 11:45 Blood Culture (Wb) - Anticubital Right Blood Culture - Final Staphylococcus aureus 01/29/23 19:10 Blood Culture (Wb) - Anticubital Right Bacteria Detection (PCR) - Final Staphylococcus aureus mecA Resistance Marker 05/23/22 19:10 Blood Culture (Wb) - Anticubital Right Blood Culture - Final Meth. resistant Staph. aureus 05/23/22 22:40 Mucosa - Nasopharyngeal Respiratory Panel (PCR) - Final Rhythm Strip Rhythm Strip: Junctional Rate: 63 Physical Exam Narrative NV status unchanges stable eschar to distal tuft of the left hallux noted, no signs of infection. 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 No drainage, no cellulitis, no fluctuance, no maloder bilateral foot or ankle. Chronic PVD bilateral LE. Assessment & Plan Assessment/Plan (1) Peripheral vascular disease, unspecified: PLAN: Plan Patient seen and evaluated. Patient has stable dry gangrene to left hallux, no signs of infection. There is also noted to be signs of developing right heel pressure -wound appears to be demarcating to right heel. Left 1st toe - stable, dry, continue to follow for local wound care- Dressing changed today consisting of Betadine and dry sterile dressing Left foot: Patient can be heel weightbearing in surgical shoe on left Patient will ultimately require revascularization to left foot and may subsequently require hallux amputation, awaiting possible vascular surgery intervention. Right heel - keep offloaded. Keep bilateral heels offloading using foam offloading boots. Recommend heel float bilaterally to prevent any additional pressure injury. Patient awaiting transfer to [facility] due to continuing positive blood cultures. This does not appear to be coming from the feet. Podiatry will continue to follow.
--- NOTE | 2022-06-16 10:01 | WOUNDNOTE ---
wound photo: left great toe
--- NOTE | 2022-06-16 10:02 | WOUNDNOTE ---
wound photo: right heel
--- NOTE | 2022-06-16 10:57 | PN.RENAL_ITS ---
Subjective Subjective Emergency provider during dialysis session. Using left upper arm AV fistula with a good blood flow, 3 kg has been removed, blood pressure is soft, Crit-Line shows profile A Objective Data Objective Data Vital Signs: Vital Signs Temp Pulse Resp BP Pulse Ox O2 Del Method O2 Flow Rate 97.0 F L 60 18 99/62 100 CPAP 1 06/16/22 04:44 06/16/22 04:44 06/16/22 04:44 06/16/22 04:44 06/16/22 04:50 06/16/22 04:50 06/15/22 20:57 FiO2 40 05/26/22 19:15 Oxygen Flow Rate (L/min) 1 Oxygen Delivery Method CPAP Weight: 99.7 kg Body Mass Index (BMI) 33.4 Intake & Output: Intake and Output for Last 24 Hours 06/14/22 06/15/22 06/16/22 23:59 23:59 23:59 Intake Total 279.3334 / 279.3334 1090.0001 / 1090.0001 106.6667 / 106.6667 Output Total 4000 / 4000 0 / 0 1999 / 1999 Balance -3720.6666 / -3720.6666 1090.0001 / 1090.0001 -1893.3333 / -1893.3333 Lab / Micro Data Attestation: I reviewed the patient's lab results. Result Diagrams: 06/16/22 06:30 06/16/22 06:30 Labs: Laboratory Results - last 24 hr 06/15/22 05:27: Total Bilirubin 0.40, Direct Bilirubin 0.15, AST 38 H, ALT 26, Alkaline Phosphatase 176 H, Total Creatine Kinase 223, Total Protein 6.2 L, Al bumin 2.3 L, Globulin 3.9 06/15/22 11:24: POC Glucose 127 H 06/15/22 16:39: POC Glucose 126 H 06/15/22 21:17: POC Glucose 160 H 06/16/22 06:30: WBC 4.7, RBC 2.65 L, Hgb 8.1 L, Hct 25.9 L, MCV 97.7 H, MCH 30.6, MCHC 31.3 L, RDW Std Deviation 60.2 H, RDW Coeff of Moni 17.8 H, Plt Count 101 L, MPV 10.2, Immature Gran % (Auto) 0.800, Neut % (Auto) 80.0 H, Lymph % (Auto) 7.4 L, [place] % (Auto) 7.4, Eos % (Auto) 3.6, Baso % (Auto) 0.8, Absolute Neuts (auto) 3.8, Absolute Lymphs (auto) 0.35 L, Nucleated RBC % 0 06/16/22 06:30: Sodium 131 L, Potassium 3.8, Chloride 94 L, Carbon Dioxide 26.0, Anion Gap 11, BUN 45 H, Creatinine 5.19 H, Estim Creat Clear Calc 10.98, Est GFR (MDRD) Af Amer 14 L, Est GFR (MDRD) Non-Af 11 L, BUN/Creatinine Ratio 8.7 L, Glucose 96, Calcium 9.5 06/16/22 06:38: POC Glucose 96 Micro: Microbiology 06/14/22 14:30 Blood Culture (Wb) - Dialysis/Fistula Blood Culture - Preliminary Staphylococcus aureus 06/12/22 08:40 Blood Culture (Wb) - Anticubital Right Blood Culture - Final Meth. resistant Staph. aureus 06/10/22 10:13 Blood Culture (Wb) - Anticubital Right Blood Culture - Final Meth. resistant Staph. aureus 06/11/22 13:30 Blood Culture (Wb) - Anticubital Right Blood Culture - Preliminary Staphylococcus aureus 06/08/22 12:45 Blood Culture (Wb) - Anticubital Right Blood Culture - Final No growth in 5 days. 05/27/22 10:25 Blood Culture (Wb) - Central Line Blood Culture - Final Meth. resistant Staph. aureus 06/06/22 09:24 Blood Culture (Wb) - Right Forearm Blood Culture - Final Meth. resistant Staph. aureus 05/29/22 11:00 Blood Culture (Wb) - Venous Blood Culture - Final Meth. resistant Staph. aureus 05/26/22 Unknown Tissue - Tibial Membrane Gram Stain - Final 05/26/22 Unknown Tissue - Tibial Membrane Wound Culture - Final Meth. resistant Staph. aureus 05/26/22 Unknown Tissue - Tibial Membrane Anaerobic Culture - Final No anaerobic bacteria isolated. 05/26/22 Unknown Tissue - Femoral Membrane Gram Stain - Final 05/26/22 Unknown Tissue - Femoral Membrane Wound Culture - Final Meth. resistant Staph. aureus 05/26/22 Unknown Tissue - Femoral Membrane Anaerobic Culture - Final No anaerobic bacteria isolated. 05/26/22 Unknown Tissue - Suprapatellar Pouch Gram Stain - Final 05/26/22 Unknown Tissue - Suprapatellar Pouch Wound Culture - Final Meth. resistant Staph. aureus 05/26/22 Unknown Tissue - Suprapatellar Pouch Anaerobic Culture - Final No anaerobic bacteria isolated. 05/26/22 21:25 Blood Culture (Wb) - Anticubital Right Blood Culture - Final Meth. resistant Staph. aureus 05/25/22 19:46 Blood Culture (Wb) - Anticubital Right Blood Culture - Final Meth. resistant Staph. aureus 05/25/22 14:35 Fluid - Synovial (joint) Gram Stain - Final 05/25/22 14:35 Fluid - Synovial (joint) Body Fluid Culture - Final Meth. resistant Staph. aureus 05/25/22 14:35 Fluid - Synovial (joint) Anaerobic Culture - Final No anaerobic bacteria isolated. 05/25/22 10:00 Blood Culture (Wb) - Right Hand Blood Culture - Final Meth. resistant Staph. aureus 05/24/22 19:25 Sputum, Expectorated/Coughed Gram Stain - Final 05/24/22 19:25 Sputum, Expectorated/Coughed Respiratory Culture - Final Meth. resistant Staph. aureus 05/23/22 18:16 Blood Culture (Wb) - Right Forearm Blood Culture - Final Meth. resistant Staph. aureus 06/07/22 11:52 Blood Culture (Wb) - Anticubital Right Blood Culture - Final Staphylococcus aureus 06/05/22 09:15 Blood Culture (Wb) - Right Forearm Blood Culture - Final Staphylococcus aureus 06/03/22 09:50 Blood Culture (Wb) - Anticubital Right Blood Culture - Final Staphylococcus aureus 06/04/22 06:00 Blood Culture (Wb) - Right Forearm Blood Culture - Final Staphylococcus aureus 06/07/22 06:47 Nasal Secretion SARS-CoV-2 Antigen (Rapid) - Final 06/02/22 12:48 Blood Culture (Wb) - Dialysis/Fistula Blood Culture - Final Meth. resistant Staph. aureus 06/01/22 06:47 Blood Culture (Wb) - Right Wrist Blood Culture - Final Staphylococcus aureus 05/31/22 11:53 Blood Culture (Wb) - Anticubital Right Blood Culture - Final Staphylococcus aureus 05/31/22 11:45 Blood Culture (Wb) - Anticubital Right Blood Culture - Final Staphylococcus aureus 05/23/22 19:10 Blood Culture (Wb) - Anticubital Right Bacteria Detection (PCR) - Final Staphylococcus aureus mecA Resistance Marker 05/23/22 19:10 Blood Culture (Wb) - Anticubital Right Blood Culture - Final Meth. resistant Staph. aureus 05/23/22 22:40 Mucosa - Nasopharyngeal Respiratory Panel (PCR) - Final Rhythm Strip Rhythm Strip: Junctional Rate: 63 Physical Exam Const alert, no apparent distress and average body habitus Orientation / Consciousness: oriented to person and oriented to place HEENT normocephalic Head and Scalp: atraumatic Resp Auscultation: diminished lung sounds Cardio Rhythm: abnormal rhythm irregularly irregular Extremity General Extremity: AV fistula Psych cooperative Assessment & Plan Assessment/Plan (1) ESRD (end stage renal disease): PLAN: He is stable on dialysis. Next dialysis session will be Tuesday
--- NOTE | 2022-06-16 12:07 | DIALYSIS ---
Hemodialysis tx completed x 3.5 hours without complications. Pt tolerated tx fair, fluid removed 4,000ml using crit-line monitor to B-profile and BV change of -10%. vitals stable post tx, verbal report to SAGE [facility]
--- NOTE | 2022-06-16 12:10 | PN.HOSP_ITS ---
Reason for Visit Reason for Visit: Diagnoses Methicillin resistant Staphylococcus aureus infection as the cause of diseases classified elsewhere (05/23/22) Essential (primary) hypertension (05/23/22) Non-ST elevation (NSTEMI) myocardial infarction (05/23/22) Ischemic cardiomyopathy (05/23/22) Longstanding persistent atrial fibrillation (05/23/22) Peripheral vascular disease, unspecified (05/23/22) Pneumonia, unspecified organism (05/23/22) Non-pressure chronic ulcer of other part of left foot with fat layer exposed () Chronic kidney disease, stage 4 (severe) (05/23/22) End stage renal disease (05/23/22) Bacteremia (05/23/22) Infection and inflammatory reaction due to internal right knee prosthesis, initial encounter (05/23/22) Presence of coronary angioplasty implant and graft (05/23/22) Subjective Subjective Patient seen and examined. He was lying comfortably in bed. He was having dialysis. He had no active complaints today. Review of systems otherwise negative. He is still awaiting transfer to tertiary center. Objective Data Objective Data Vital Signs: Vital Signs Temp Pulse Resp BP Pulse Ox O2 Del Method O2 Flow Rate 97.0 F L 60 18 99/62 100 CPAP 1 06/16/22 04:44 06/16/22 04:44 06/16/22 04:44 06/16/22 04:44 06/16/22 04:50 06/16/22 04:50 06/15/22 20:57 FiO2 40 05/26/22 19:15 Oxygen Flow Rate (L/min) 1 Oxygen Delivery Method CPAP Weight: 219 lb 12.814 oz Body Mass Index (BMI) 33.4 Intake & Output: Intake and Output for Last 24 Hours 06/14/22 06/15/22 06/16/22 23:59 23:59 23:59 Intake Total 279.3334 / 279.3334 1090.0001 / 1090.0001 106.6667 / 106.6667 Output Total 4000 / 4000 0 / 0 1999 / 1999 Balance -3720.6666 / -3720.6666 1090.0001 / 1090.0001 -1893.3333 / -1893.3333 Lab / Micro Data Result Diagrams: 06/16/22 06:30 06/16/22 06:30 Labs: Laboratory Results - last 24 hr 06/15/22 16:39: POC Glucose 126 H 06/15/22 21:17: POC Glucose 160 H 06/16/22 06:30: WBC 4.7, RBC 2.65 L, Hgb 8.1 L, Hct 25.9 L, MCV 97.7 H, MCH 30.6, MCHC 31.3 L, RDW Std Deviation 60.2 H, RDW Coeff of Moni 17.8 H, Plt Count 101 L, MPV 10.2, Immature Gran % (Auto) 0.800, Neut % (Auto) 80.0 H, Lymph % (Auto) 7.4 L, [place] % (Auto) 7.4, Eos % (Auto) 3.6, Baso % (Auto) 0.8, Absolute Neuts (auto) 3.8, Absolute Lymphs (auto) 0.35 L, Nucleated RBC % 0 06/16/22 06:30: Sodium 131 L, Potassium 3.8, Chloride 94 L, Carbon Dioxide 26.0, Anion Gap 11, BUN 45 H, Creatinine 5.19 H, Estim Creat Clear Calc 10.98, Est GFR (MDRD) Af Amer 14 L, Est GFR (MDRD) Non-Af 11 L, BUN/Creatinine Ratio 8.7 L, Glucose 96, Calcium 9.5 06/16/22 06:38: POC Glucose 96 Micro: Microbiology 06/14/22 14:30 Blood Culture (Wb) - Dialysis/Fistula Blood Culture - Preliminary Staphylococcus aureus 06/12/22 08:40 Blood Culture (Wb) - Anticubital Right Blood Culture - Final Meth. resistant Staph. aureus 06/10/22 10:13 Blood Culture (Wb) - Anticubital Right Blood Culture - Final Meth. resistant Staph. aureus 06/11/22 13:30 Blood Culture (Wb) - Anticubital Right Blood Culture - Preliminary Staphylococcus aureus 06/08/22 12:45 Blood Culture (Wb) - Anticubital Right Blood Culture - Final No growth in 5 days. 05/27/22 10:25 Blood Culture (Wb) - Central Line Blood Culture - Final Meth. resistant Staph. aureus 06/06/22 09:24 Blood Culture (Wb) - Right Forearm Blood Culture - Final Meth. resistant Staph. aureus 05/29/22 11:00 Blood Culture (Wb) - Venous Blood Culture - Final Meth. resistant Staph. aureus 05/26/22 Unknown Tissue - Tibial Membrane Gram Stain - Final 05/26/22 Unknown Tissue - Tibial Membrane Wound Culture - Final Meth. resistant Staph. aureus 05/26/22 Unknown Tissue - Tibial Membrane Anaerobic Culture - Final No anaerobic bacteria isolated. 05/26/22 Unknown Tissue - Femoral Membrane Gram Stain - Final 05/26/22 Unknown Tissue - Femoral Membrane Wound Culture - Final Meth. resistant Staph. aureus 05/26/22 Unknown Tissue - Femoral Membrane Anaerobic Culture - Final No anaerobic bacteria isolated. 05/26/22 Unknown Tissue - Suprapatellar Pouch Gram Stain - Final 05/26/22 Unknown Tissue - Suprapatellar Pouch Wound Culture - Final Meth. resistant Staph. aureus 05/26/22 Unknown Tissue - Suprapatellar Pouch Anaerobic Culture - Final No anaerobic bacteria isolated. 05/26/22 21:25 Blood Culture (Wb) - Anticubital Right Blood Culture - Final Meth. resistant Staph. aureus 05/25/22 19:46 Blood Culture (Wb) - Anticubital Right Blood Culture - Final Meth. resistant Staph. aureus 05/25/22 14:35 Fluid - Synovial (joint) Gram Stain - Final 05/25/22 14:35 Fluid - Synovial (joint) Body Fluid Culture - Final Meth. resistant Staph. aureus 05/25/22 14:35 Fluid - Synovial (joint) Anaerobic Culture - Final No anaerobic bacteria isolated. 05/25/22 10:00 Blood Culture (Wb) - Right Hand Blood Culture - Final Meth. resistant Staph. aureus 05/24/22 19:25 Sputum, Expectorated/Coughed Gram Stain - Final 05/24/22 19:25 Sputum, Expectorated/Coughed Respiratory Culture - Final Meth. resistant Staph. aureus 05/23/22 18:16 Blood Culture (Wb) - Right Forearm Blood Culture - Final Meth. resistant Staph. aureus 06/07/22 11:52 Blood Culture (Wb) - Anticubital Right Blood Culture - Final Staphylococcus aureus 06/05/22 09:15 Blood Culture (Wb) - Right Forearm Blood Culture - Final Staphylococcus aureus 06/03/22 09:50 Blood Culture (Wb) - Anticubital Right Blood Culture - Final Staphylococcus aureus 06/04/22 06:00 Blood Culture (Wb) - Right Forearm Blood Culture - Final Staphylococcus aureus 06/07/22 06:47 Nasal Secretion SARS-CoV-2 Antigen (Rapid) - Final 06/02/22 12:48 Blood Culture (Wb) - Dialysis/Fistula Blood Culture - Final Meth. resistant Staph. aureus 06/01/22 06:47 Blood Culture (Wb) - Right Wrist Blood Culture - Final Staphylococcus aureus 05/31/22 11:53 Blood Culture (Wb) - Anticubital Right Blood Culture - Final Staphylococcus aureus 05/31/22 11:45 Blood Culture (Wb) - Anticubital Right Blood Culture - Final Staphylococcus aureus 05/23/22 19:10 Blood Culture (Wb) - Anticubital Right Bacteria Detection (PCR) - Final Staphylococcus aureus mecA Resistance Marker 05/23/22 19:10 Blood Culture (Wb) - Anticubital Right Blood Culture - Final Meth. resistant Staph. aureus 05/23/22 22:40 Mucosa - Nasopharyngeal Respiratory Panel (PCR) - Final Rhythm Strip Rhythm Strip: Junctional Rate: 63 Physical Exam Const alert, oriented x3 and no apparent distress Constitutional Narrative: frail HEENT normocephalic, head/scalp atraumatic, moist oral mucous membranes and oropharynx normal Head and Scalp: normocephalic Mouth: oral and palatal mucosa normal Eyes PERRL, EOMs intact bilaterally and conjunctivae normal Neck no lymphadenopathy, supple and no JVD Resp normal respiratory effort, no retractions, no use of accessory muscles and clear to auscultation bilaterally Resp Narrative: mildly diminished breath sounds bibasally, no wheezes or crackles. On room air. Cardio regular rate, regular rhythm, S1 normal heart sound, S2 normal heart sound and no murmurs GI normal to inspection, nondistended, normoactive bowel sounds, soft to palpation, non-tender and non-distended Extremity normal to inspection, full ROM and no clubbing, cyanosis or edema Extremity Narrative: moderate edema of the LUE has improved markedly. LUE fistula with good thrill General Extremity: edema Neuro oriented x3, CN's II-XII intact bilaterally, moves all extremities and no focal motor deficits Neuro Narrative: No overt focal deficits appreciated Sensorium / Orientation: awake, alert, oriented to person, oriented to place and oriented to time Motor Exam: strength 5/5 throughout Psych affect normal Psych Narrative: Cooperative Assessment & Plan Assessment/Plan (1) Infection of total right knee replacement: (2) MRSA bacteremia: (3) ESRD (end stage renal disease): PLAN: Plan #MRSA bacteremia * bacteremia has been persistent. Thought to be due to infection of the right knee prosthesis * on IV daptomycin and ceftaroline * has had debridement and washout of the knee already during this admission, which was complicated by hypotension in the OR. * ID and orthopedic surgery on board; both are in agreement that [facility] should [facility]ation of the prosthesis. * Paitent and only willing to go to [facility] or [facility]. [facility] refused transfer today; patient accepted at [facility] but advised that the wait for a bed may be up to a week or more, per the transfer line. Patient still willing to wait to be transferred to [facility]. however says today that she would want to try with or [facility] to see if he will get accepted there more quickly. * #MRSA infection of the right knee: as above. #CAD: on aspirin and high intensity statin. #NONSTEMI: on aspirin and high intensity statin. #ESRD: on hemodialysis via LUE fistula. Nephrology on board. On renvela #LUE pseudoaneurysm * has some LUE edema. Had US guided thrombin injection of LUE AVF pseudoaneurysm on 05/17. * stable. * #HYponatremia; stable #Anemia * this is chronic, and likely due to ESRD. hb is 8.1 today. Has been ranging between 8-10 * Will trend Hb * #Chronic hypotension: on midodrine. #Atrial fibrillation: on amiodarone. On eliquis. DVT prophylaxis: on eliquis Disposition: * Patient accepted at [facility] for possible explantation of the right knee prosthesis. * Wait for the bed and may be up to a week or even more per [facility] transfer line. [facility] refused transfer. * patient and want to try with [facility] and today Total time spent on reviewing patient's chart, seeing patient, evaluation and management and documentation: 28 mins # Charges/Coding Visit Charges Inpatient E&M: 26785 Subs Hosp L2
[2022-06-16] MEDS: Multivitamins,Therapeutic Tablet 1 TABLET PO (13:13)
[2022-06-16] MEDS: Aspirin E.C. 81 MG Tablet PO (13:14)
[2022-06-16] MEDS: APIXABAN 2.5 MG TABLET (WCH) PO ×2 (13:15→22:26)
[2022-06-16] MEDS: Menthol/Lanolin/Calamine/Znox 113 GM Tube 1 APPLIC TOPICAL (14:25)
[2022-06-16] MEDS: Lactulose 20 GM/30 ML UDC 30 GM PO ×2 (14:30→22:29)
[2022-06-16] MEDS: Tamsulosin HCl 0.4 MG Capsule PO (14:31)
[2022-06-16] MEDS: Midodrine HCl 5 MG Tablet 20 MG PO ×2 (14:32→18:45)
[2022-06-16] MEDS: Psyllium 1 PACKET PO (14:34)
[2022-06-16] MEDS: SEVELAMER CARBONATE 800 MG TABLET PO ×2 (14:34→18:33)
[2022-06-16 15:21] LABS: Bedside Glucose 77 mg/dL (74-106)
[2022-06-16] MEDS: Insulin Lispro 100 UNIT/ML INSULN.PEN SC (18:28)
[2022-06-16 18:56] LABS: Bedside Glucose 154 mg/dL (74-106)
--- NOTE | 2022-06-16 19:09 | NURSING ---
[facility] transfer line called with a bed for PT. I called [facility] and to take the pt off of their waiting lists.
[2022-06-16] MEDS: Budesonide Respules 0.5 MG/2 ML AMPUL.NEB. INHALATION (19:55)
--- NOTE | 2022-06-16 20:02 | PCM.HOSP.N ---
Hospitalist Note Patient s/p HD with removal 4L per discussion with RN. Asymptomatic hypotension currently. Also missed dose midodrine prior to HD per RN report. Will dose with midodrine x 1 now and will administer 500 cc bolus and re-assess for further IVF needs.
[2022-06-16] MEDS: Midodrine HCl 5 MG Tablet 10 MG PO (20:13)
--- NOTE | 2022-06-16 20:20 | NURSING ---
This nurse spoke with patient Leigh Ann Richey and gave her a update that patient received a bed from [facility]. Communicated with that his blood pressure was low 85/33 and given two 500cc bolus and 10 mg midodrine. Explained to that patient was okay for the transfer to [facility]. Patient blood pressure 105/42 after the bolus and midodrine given. Gave the the information of the floor he was going to bed [facility]. I told her that I was told that it was a ortho/MS floor per the nurse at [facility].
--- NOTE | 2022-06-16 21:05 | NURSING ---
This nurse tried calling and to let know that patient will not be pickup till 7:30 tomorrow morning but left a voicemail for her to call back.
--- NOTE | 2022-06-16 21:07 | NURSING ---
Call [facility] and gave Jessica Rn that transportation will not be available till 7:30am
[2022-06-16] MEDS: Atorvastatin Calcium 40 MG Tablet PO (22:25)
[2022-06-16] MEDS: Latanoprost 0.005% 1 Bottle 1 DRP OPHTHALMIC (22:27)
[2022-06-16] MEDS: Insulin Glargine-YFGN 100 UNIT/ML Pen SC (22:34)
[2022-06-16] MEDS: MELATONIN 3 MG TABLET PO (22:47)
[2022-06-16] MEDS: Acetaminophen 325 MG Tablet 650 MG PO (22:48)
[2022-06-16 23:16] LABS: Bedside Glucose 145 mg/dL (74-106)
[2022-06-17 01:45] VITALS: BP 75/42; PULSE 60; RESP 18; TEMP 36; O2SAT 99
[2022-06-17 02:48] VITALS: BP 78/35
[2022-06-17 03:16] VITALS: BP 82/68
[2022-06-17] MEDS: Midodrine HCl 5 MG Tablet 20 MG PO (04:44)
[2022-06-17 06:00] VITALS: BP 76/33; PULSE 74; RESP 18; TEMP 35.8; O2SAT 96; BMI 33.3
[2022-06-17 06:37] LABS: Absolute Lymphocyte Count 0.37 X10^3/uL (0.83-4.51); Absolute Neutrophil Count 3.6 X10^3/uL (2.0-7.7); Basophil# 0.05 X10^3/uL; Basophil% 1.1 % (0-1); Eosinophil# 0.17 X10^3/uL; Eosinophils% 3.7 % (0-5); Hematocrit 27.1 % (40-54); Hemoglobin 8.3 g/dL (13.0-16.5); Lymphocyte # 0.37 X10^3/ul (0.83-4.51); Lymphocyte % 8.1 % (19-41); Mean Corp Hgb Conc 30.6 g/dL (32-36); Mean Corpuscular Hgb 30.6 pg (27.0-32.0); Mean Platelet Vol. 10.4 fl (6.2-12.0); Monocyte# 0.31 X10^3/uL; Monocyte% 6.8 % (0-10); NRBC Flagged by Analyzer 0 % (0-5); Neutrophil # 3.64 X10^3/uL (2.7-7.7); Neutrophil % 79.4 % (47-70); POSITIVE DIFFERENTIAL YES; Platelet Count 101 K/mm3 (150-450); RBC Distribution Width CV 18.1 % (11.6-14.6); RBC Distribution Width SD 63.8 fl (35.1-43.9); Red Blood Count 2.71 M/mm3 (4.6-6.2); White Blood Count 4.6 K/mm3 (4.4-11.0)
[2022-06-17 06:50] LABS: Bedside Glucose 75 mg/dL (74-106)
[2022-06-17 06:53] LABS: Differential Indicated SCAN CRITERIA MET
[2022-06-17 06:55] VITALS: BP 108/44; PULSE 70
[2022-06-17 06:57] LABS: Anion Gap 9 (5-15); BUN 29 mg/dL (7-18); BUN/Creat Ratio 7.6 RATIO (10-20); Calcium,Total 9.6 mg/dL (8.5-10.1); Chloride 96 mmol/L (98-107); Creatinine, Serum 3.82 mg/dL (0.70-1.30); EST Glomerular Filtration Rate 16 mL/min (>60); Est Glom Filt Rate - Afr Amer 20 mL/min (>60); Estimated Creatinine Clearance 14.92 ml/min; Glucose 88 mg/dL (74-106); Potassium 3.8 mmol/L (3.5-5.1); Sodium Level 133 mmol/L (136-145)
--- NOTE | 2022-06-17 07:54 | NURSING ---
I spoke with [facility] to get an ETA for transport that was supposed to be here at 0730 they stated the crew is 20mins out due to be here around 0820.
[2022-06-17 09:04] LABS: Differential Comment SCANNED
[2022-06-17 09:05] LABS: Anisocytosis 2+
--- NOTE | 2022-06-17 16:06 | DS.PCM_ITS ---
Providers Date of Admission: 05/23/22 Date of Discharge: 06/17/22 Primary Care Physician: Dr. Masha Treviño MD Consultations 05/23/22 22:10 Consult: Podiatry Routine Consulting Provider: Nestor Dupree Reason for Consult: Pt Arlene Bradshaw great toe diabetic foot wound EMERGENT Consult: No MD Notified: Yes Date Notified: 05/23/22 Time Notified: 21:25 Method of Notification: Text 05/24/22 02:18 Consult: Nephrology Routine Consulting Provider: Yfn Howell Reason for Consult: ESRD on HD EMERGENT Consult: No MD Notified: Yes Date Notified: 05/24/22 Time Notified: 02:18 Method of Notification: per doctor fozia 05/24/22 07:00 Consult: Cardiology Routine Consulting Provider: Thea Elkins Reason for Consult: Weakness, admit ? 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 PNA, NSTEMI Diagnosis Discharge Diagnosis (1) Infection of total right knee replacement: Status: Acute Code(s): T84.53XA - Infection and inflammatory reaction due to internal right knee prosthesis, initial encounter (2) MRSA bacteremia: Status: Acute Code(s): R78.81 - Bacteremia; B95.62 - Methicillin resistant Staphylococcus aureus infection as the cause of diseases classified elsewhere (3) ESRD (end stage renal disease): Status: Acute Code(s): N18.6 - End stage renal disease Plan #MRSA bacteremia * bacteremia has been persistent. Thought to be due to infection of the right knee prosthesis * on IV daptomycin and ceftaroline * has had debridement and washout of the knee already during this admission, which was complicated by hypotension in the OR. * ID and orthopedic surgery on board; both are in agreement that [facility]. * Paitent and only willing to go to [facility] or [facility]. [facility] refused transfer today; patient accepted at [facility] but advised that the wait for a bed may be up to a week or more, per the transfer line. Patient still willing to wait to be transferred to [facility]. however says today that she would want to try with or [facility] to see if he will get accepted there more quickly. * #MRSA infection of the right knee: as above. #CAD: on aspirin and high intensity statin. #NONSTEMI: on aspirin and high intensity statin. #ESRD: on hemodialysis via LUE fistula. Nephrology on board. On renvela #LUE pseudoaneurysm * has some LUE edema. Had US guided thrombin injection of LUE AVF pseudoaneurysm on 05/17. * stable. * #HYponatremia; stable #Anemia * this is chronic, and likely due to ESRD. hb is 8.1 today. Has been ranging between 8-10 * Will trend Hb * #Chronic hypotension: on midodrine. #Atrial fibrillation: on amiodarone. On eliquis. DVT prophylaxis: on eliquis Disposition: * Patient accepted at [facility] for possible explantation of the right knee prosthesis. * Wait for the bed and may be up to a week or even more per [facility] transfer line. [facility] refused transfer. * patient and want to try with [facility] and today Total time spent on reviewing patient's chart, seeing patient, evaluation and management and documentation: 28 mins # Medications at Discharge Home Medications aspirin 81 mg tablet,delayed release 81 mg PO DAILY Check with primary doctor 07/17/15 amiodarone 200 mg tablet 200 mg PO DAILY 03/09/22 atorvastatin 40 mg tablet 40 mg PO QHS 03/09/22 ergocalciferol (vitamin D2) 50 mcg (2,000 unit) capsule 50 mcg PO .2X month 03/09/22 furosemide 40 mg tablet 40 mg PO DAILY Weight Gain 03/09/22 metoprolol succinate 25 mg tablet,extended release 24 hr 25 mg PO DAILY 03/09/22 midodrine 10 mg tablet 10 mg PO DAILY 03/09/22 sevelamer carbonate 800 mg tablet 1,600 mg PO TID supplement 03/09/22 tamsulosin 0.4 mg capsule 0.4 mg PO DAILY 03/09/22 apixaban 2.5 mg tablet (Eliquis) 2.5 mg PO BID #180 tabs 05/10/22 multivitamin 1 tab PO DAILY 05/13/22 polyethylene glycol 3350 17 gram oral powder packet (Miralax) 17 g PO DAILY 04/25 01/15 midodrine 10 mg tablet 10 mg PO MOWEFR BP 05/24/22 Hospital Course Operations - (irrigation and debridement) Procedures 2-D Echocardiogram and Transesophageal Echo Summary of Care Provided Minutes Spent on Discharge: 45 Hospital Course: Patient is an 82-year-old male with an extensive past medical history as outlined was admitted through the ED on 05/23/2022 with a complaint of weakness and mechanical fall about 4 days prior. Patient had been feeling very weak at home and could not do anything much for himself so he was brought into the ED. Patient had a long complicated hospital course as he tested positive for MRSA bacteremia. Blood cultures were repeatedly positive. He was placed on IV vancomycin. Orthopedic surgery and podiatry were consulted as well as infectious disease. Patient had irrigation and debridement of the right knee. Antibiotics were switched to daptomycin and ceftaroline. Patient's irrigation and debridement was complicated by hypotension and shock requiring vasopressors. He was put in the ICU but subsequently transferred out. Due to patient's persistent positive blood and tertiary facility for explantation of the right knee prosthesis. Patient was accepted at [facility] and transferred to [facility] on 06/17/[facility]22. Patient was seen and examined prior to transfer. His was by his bedside. He had no active complaints. He had an uneventful night. Review of systems otherwise negative. Labs and vitals reviewed. Home medication reviewed and reconciled. Physical Exam Const alert, oriented x3 and no apparent distress Constitutional Narrative: frail General Appearance: cooperative and comfortable Orientation / Consciousness: awake HEENT normocephalic, head/scalp atraumatic, hearing grossly normal bilaterally, moist oral mucous membranes and oropharynx normal Mouth: oral and palatal mucosa normal Eyes PERRL, EOMs intact bilaterally and conjunctivae normal Eyes Narrative: EOM grossly intact, anicteric Neck no lymphadenopathy, supple and no JVD Resp normal respiratory effort, no retractions, no use of accessory muscles and clear to auscultation bilaterally Resp Narrative: mildly diminished breath sounds bibasally, no wheezes or crackles. On room air. Cardio regular rate, regular rhythm, S1 normal heart sound, S2 normal heart sound and no murmurs GI normal to inspection, nondistended, normoactive bowel sounds, soft to palpation, non-tender and non-distended Extremity normal to inspection, full ROM and no clubbing, cyanosis or edema Extremity Narrative: moderate edema of the LUE has improved markedly. LUE fistula with good thrill . Right knee in knee brace. General Extremity: edema Neuro oriented x3, CN's II-XII intact bilaterally, moves all extremities and no focal motor deficits Sensorium / Orientation: awake, alert, oriented to person, oriented to place and oriented to time Motor Exam: strength 5/5 throughout Psych affect normal Psych Narrative: Cooperative Weight / BMI Weight Weight: 219 lb 9.286 oz Body Mass Index (BMI) 33.3 ABG / Lab / Microbiology Data Result Diagrams: 06/17/22 05:25 06/17/22 05:25 Laboratory: Laboratory Results - last 24 hr 06/16/22 18:26: POC Glucose 154 H 06/16/22 22:33: POC Glucose 145 H 06/17/22 05:25: WBC 4.6, RBC 2.71 L, Hgb 8.3 L, Hct 27.1 L, MCV 100.0 H, MCH 30.6, MCHC 30.6 L, RDW Std Deviation 63.8 H, RDW Coeff of Moni 18.1 H, Plt Count 101 L, MPV 10.4, Immature Gran % (Auto) 0.900, Neut % (Auto) 79.4 H, Lymph % (Auto) 8.1 L, [place] % (Auto) 6.8, Eos % (Auto) 3.7, Baso % (Auto) 1.1 H, Absolute Neuts (auto) 3.6, Absolute Lymphs (auto) 0.37 L, Nucleated RBC % 0, Differential Comment SCANNED, Anisocytosis 2+ 06/17/22 05:25: Sodium 133 L, Potassium 3.8, Chloride 96 L, Carbon Dioxide 28.0, Anion Gap 9, BUN 29 H, Creatinine 3.82 H, Estim Creat Clear Calc 14.92, Est GFR (MDRD) Af Amer 20 L, Est GFR (MDRD) Non-Af 16 L, BUN/Creatinine Ratio 7.6 L, Glucose 88, Calcium 9.6 06/17/22 06:11: POC Glucose 75 Microbiology: Microbiology 06/14/22 14:30 Blood Culture (Wb) - Dialysis/Fistula Blood Culture - Final Meth. resistant Staph. aureus 06/11/22 13:30 Blood Culture (Wb) - Anticubital Right Blood Culture - Final Staphylococcus aureus 06/12/22 08:40 Blood Culture (Wb) - Anticubital Right Blood Culture - Final Meth. resistant Staph. aureus 06/10/22 10:13 Blood Culture (Wb) - Anticubital Right Blood Culture - Final Meth. resistant Staph. aureus 06/08/22 12:45 Blood Culture (Wb) - Anticubital Right Blood Culture - Final No growth in 5 days. 05/27/22 10:25 Blood Culture (Wb) - Central Line Blood Culture - Final Meth. resistant Staph. aureus 06/06/22 09:24 Blood Culture (Wb) - Right Forearm Blood Culture - Final Meth. resistant Staph. aureus 05/29/22 11:00 Blood Culture (Wb) - Venous Blood Culture - Final Meth. resistant Staph. aureus 05/26/22 Unknown Tissue - Tibial Membrane Gram Stain - Final 05/26/22 Unknown Tissue - Tibial Membrane Wound Culture - Final Meth. resistant Staph. aureus 05/26/22 Unknown Tissue - Tibial Membrane Anaerobic Culture - Final No anaerobic bacteria isolated. 05/26/22 Unknown Tissue - Femoral Membrane Gram Stain - Final 05/26/22 Unknown Tissue - Femoral Membrane Wound Culture - Final Meth. resistant Staph. aureus 05/26/22 Unknown Tissue - Femoral Membrane Anaerobic Culture - Final No anaerobic bacteria isolated. 05/26/22 Unknown Tissue - Suprapatellar Pouch Gram Stain - Final 05/26/22 Unknown Tissue - Suprapatellar Pouch Wound Culture - Final Meth. resistant Staph. aureus 05/26/22 Unknown Tissue - Suprapatellar Pouch Anaerobic Culture - Final No anaerobic bacteria isolated. 05/26/22 21:25 Blood Culture (Wb) - Anticubital Right Blood Culture - Final Meth. resistant Staph. aureus 05/25/22 19:46 Blood Culture (Wb) - Anticubital Right Blood Culture - Final Meth. resistant Staph. aureus 05/25/22 14:35 Fluid - Synovial (joint) Gram Stain - Final 05/25/22 14:35 Fluid - Synovial (joint) Body Fluid Culture - Final Meth. resistant Staph. aureus 05/25/22 14:35 Fluid - Synovial (joint) Anaerobic Culture - Final No anaerobic bacteria isolated. 05/25/22 10:00 Blood Culture (Wb) - Right Hand Blood Culture - Final Meth. resistant Staph. aureus 05/24/22 19:25 Sputum, Expectorated/Coughed Gram Stain - Final 05/24/22 19:25 Sputum, Expectorated/Coughed Respiratory Culture - Final Meth. resistant Staph. aureus 05/23/22 18:16 Blood Culture (Wb) - Right Forearm Blood Culture - Final Meth. resistant Staph. aureus 06/07/22 11:52 Blood Culture (Wb) - Anticubital Right Blood Culture - Final Staphylococcus aureus 06/05/22 09:15 Blood Culture (Wb) - Right Forearm Blood Culture - Final Staphylococcus aureus 06/03/22 09:50 Blood Culture (Wb) - Anticubital Right Blood Culture - Final Staphylococcus aureus 06/04/22 06:00 Blood Culture (Wb) - Right Forearm Blood Culture - Final Staphylococcus aureus 06/07/22 06:47 Nasal Secretion SARS-CoV-2 Antigen (Rapid) - Final 06/02/22 12:48 Blood Culture (Wb) - Dialysis/Fistula Blood Culture - Final Meth. resistant Staph. aureus 06/01/22 06:47 Blood Culture (Wb) - Right Wrist Blood Culture - Final Staphylococcus aureus 05/31/22 11:53 Blood Culture (Wb) - Anticubital Right Blood Culture - Final Staphylococcus aureus 05/31/22 11:45 Blood Culture (Wb) - Anticubital Right Blood Culture - Final Staphylococcus aureus 05/23/22 19:10 Blood Culture (Wb) - Anticubital Right Bacteria Detection (PCR) - Final Staphylococcus aureus mecA Resistance Marker 05/23/22 19:10 Blood Culture (Wb) - Anticubital Right Blood Culture - Final Meth. resistant Staph. aureus 05/23/22 22:40 Mucosa - Nasopharyngeal Respiratory Panel (PCR) - Final D/C Instructions Discharge Diet: Low fat / Low cholesterol Discharge Activity: Return to Normal Activity Call your doctor if you observe: Fever of 101 or Higher, Shortness of breath, Dizziness, Swelling in the ankles, Chest pain and Increased palpitations (irregular heartbeat) Meaningful Use Info Meaningful Use Diagnoses (Choose all that apply): None applicable Discharge Plan Admission Admit Date/Time: 05/23/22 20:45 Primary Reason for Your Visit: MRSA bacteremia Attending Provider: Sammie Hays Primary Care Provider: Masha Treviño Consulting Providers: Cristy Jaffe ; Odalys Bedolla ; Brent Ruiz ; Thea Zapata ; Steve Dueñas ; Doyle Prakash ; Richie Reyes ; Warren Koroma ; Alexandre Ramos ; Sayra Gracia NP ; Yfn Howell ; Francisco Alfaro ; Nestor Dupree ; Prasanth Ellsworth Discharge Orders/Prescriptions Prescriptions: No Action ergocalciferol (vitamin D2) 50 mcg (2,000 unit) capsule 50 mcg PO .2X month amiodarone 200 mg tablet 200 mg PO DAILY midodrine 10 mg tablet 10 mg PO DAILY Rx Instructions: do not give last dose of day after 6PM or within 4 hrs of bedtime metoprolol succinate 25 mg tablet extended release 24 hr 25 mg PO DAILY atorvastatin 40 mg tablet 40 mg PO QHS tamsulosin 0.4 mg capsule 0.4 mg PO DAILY sevelamer carbonate 800 mg tablet 1,600 mg PO TID Rx Instructions: must administer with a meal/food aspirin 81 MG tablet,delayed release (DR/EC) 81 mg PO DAILY Rx Instructions: chronic kidney disease multivitamin [Daily Vitamin] Tablet 1 tab PO DAILY polyethylene glycol 3350 [Miralax] 17 gram Powder In Packet 17 g PO DAILY midodrine 10 mg Tablet 10 mg PO MOWEFR Rx Instructions: Takes 1 pill after dialysis furosemide 40 mg tablet 40 mg PO DAILY Eliquis 2.5 mg tablet 2.5 mg PO BID Qty: 180 3RF Referrals / Follow Up: Masha Treviño MD [Primary Care Provider] - Disposition Disposition (needs filled in before D/C Order can be placed): Acute Care Hospital Charges/Coding Visit Charges Inpatient E&M: 97094 Disch Hosp >30min
== END 2022-06-17 08:48 | disposition short-term general hospital (02) | DRG 463 ==
LOC: ED 20:12 → PCU 21:12 → ICU 05-27 06:20 → PCU 05-28 17:30
PROVIDERS: Anesthesiology; Internal Medicine; Internal Medicine Infectious Disease; Internal Medicine Nephrology; Nurse Practitioner Adult Health; Specialist; Admitting Provider Family Medicine; Emergency Provider Emergency Medicine; PCP Family Medicine; Visit Provider Student in an Organized Health Care Education/Training Program
PROC: 0SPC09Z Removal of Liner from Right Knee Joint, Open Approach (ICD-10-PCS; CPT 27487; principal; 2022-05-26 13:55)
DX: T84.53XA Infection and inflammatory reaction due to internal right knee prosthesis, initial encounter (principal); R57.0 Cardiogenic shock; I21.4 Non-ST elevation (NSTEMI) myocardial infarction; J15.212 Pneumonia due to Methicillin resistant Staphylococcus aureus; N18.6 End stage renal disease; R78.81 Bacteremia; E11.52 Type 2 diabetes mellitus with diabetic peripheral angiopathy with gangrene; M00.9 Pyogenic arthritis, unspecified; D62 Acute posthemorrhagic anemia; I13.2 Hypertensive heart and chronic kidney disease with heart failure and with stage 5 chronic kidney disease, or end stage renal disease; I50.42 Chronic combined systolic (congestive) and diastolic (congestive) heart failure; I48.11 Longstanding persistent atrial fibrillation; E87.1 Hypo-osmolality and hyponatremia; R18.8 Other ascites; L89.616 Pressure-induced deep tissue damage of right heel; Z99.2 Dependence on renal dialysis; E11.22 Type 2 diabetes mellitus with diabetic chronic kidney disease; E11.621 Type 2 diabetes mellitus with foot ulcer; E11.42 Type 2 diabetes mellitus with diabetic polyneuropathy; K74.60 Unspecified cirrhosis of liver; L97.522 Non-pressure chronic ulcer of other part of left foot with fat layer exposed; E11.65 Type 2 diabetes mellitus with hyperglycemia; Z79.4 Long term (current) use of insulin; I95.89 Other hypotension; E78.5 Hyperlipidemia, unspecified; I25.5 Ischemic cardiomyopathy; I25.10 Atherosclerotic heart disease of native coronary artery without angina pectoris; G47.33 Obstructive sleep apnea (adult) (pediatric); I25.2 Old myocardial infarction; K76.0 Fatty (change of) liver, not elsewhere classified; D63.1 Anemia in chronic kidney disease; E03.9 Hypothyroidism, unspecified; E61.8 Deficiency of other specified nutrient elements; Z87.891 Personal history of nicotine dependence; Z79.82 Long term (current) use of aspirin; Z95.5 Presence of coronary angioplasty implant and graft; B95.62 Methicillin resistant Staphylococcus aureus infection as the cause of diseases classified elsewhere; Z66 Do not resuscitate; Z79.899 Other long term (current) drug therapy; Z91.81 History of falling; N40.0 Benign prostatic hyperplasia without lower urinary tract symptoms; E66.9 Obesity, unspecified; Z68.34 Body mass index [BMI] 34.0-34.9, adult; T82.510D Breakdown (mechanical) of surgically created arteriovenous fistula, subsequent encounter; Y82.8 Other medical devices associated with adverse incidents
CPT/HCPCS: 36415; 71045; 72146; 73560; 73630; 74177; 78802; 80048; 80053; 80061; 80069; 80076; 80202; 82550; 82803; 82962; 83036; 83605; 83735; 84100; 84145; 84439; 84443; 84484; 85014; 85018; 85025; 85610; 85652; 85730; 86140; 86850; 86900; 86901; 86920; 87015; 87040; 87070; 87075; 87077; 87102; 87116; 87149; 87186; 87205; 87206; 87340; 87426; 87633; 89050; 89051; 90937; 93005; 93306; 93308; 93312; 93320; 93325; 93923; 93931; 93970; 93971; 93990; 94002; 94640; 94667; 94668; 94762; 97110; 97116; 97129; 97130; 97162; 97166; 97530; 97535; 97802; 97803; 99213; 99252; 99285; A9521; C1776; J0878; J7030; J7040; J7050; Q9957; Q9967; A4216; C8924; C8929; G0257; G0463; J0696; J0712; J3490; Q5106